=== PATIENT | female | born 1940 | race Caucasian/White ===

== ENCOUNTER 2024-08-15 08:33 | Inpatient (IN) | payer MEDICARE, SELFPAY ==
[2024-08-15] VITALS (21 sets, daily range): BP systolic 127–163; BP diastolic 65–96; PULSE 84–104; RESP 18–32; TEMP 36.7–38.4; O2SAT 91–100; BMI 30.7
--- NOTE | ~2024-08-15 | XR_ITS ---
CHEST RADIOGRAPH CLINICAL HISTORY: POST INSERTION DURAFLOW PERMACATH TUNNELED DIALYSIS CATH . COMPARISON: 09/02/2024 5:17 AM TECHNIQUE: Single portable view of the chest. FINDINGS Sternal wires and mediastinal clips are identified, the wires are midline and intact. Right internal jugular temporary hemodialysis catheter is present with its tip projecting over the pr oximal right atrium. Tunneled left internal jugular hemodialysis catheter with the arterial portion of its tip projecting over the left brachiocephalic vein, and the venous return portion projecting over the central superio r vena cava. Endotracheal tube is identified with its tip projecting approximately 5 cm above the base of the isai na. The remainder of the cardiomediastinal silhouette is otherwise unremarkable. Blunting of the bilateral costophrenic sulci suggesting small bilateral pleural effusions. The remainder of the lungs are clear. IMPRESSION: Bilateral pleural effusions. Temporary dialysis catheter is in good position. Endotracheal tube is in good radiographic position. Tunneled dialysis catheter is in position and ready for immediate use. Reviewed, dictated and finalized at location A.
--- NOTE | ~2024-08-15 | XR_ITS ---
Portable chest x-ray Comparison: 08/25/2024 Clinical History: Respiratory failure Findings: Endotracheal tube, NG tube, and right IJ line are in place. There is diffuse airspace cons olidation with probable small bilateral pleural effusions. Cardiomediastinal silhouette is stable. B ones and soft tissues are unremarkable. Impression: Diffuse airspace consolidation, suspicious for severe pulmonary edema versus pneumonia. Small pleural effusions. Support tubes, as above. Reviewed, dictated and finalized at location . Impression: Diffuse airspace consolidation, suspicious for severe pulmonary edema versus pn eumonia. Small pleural effusions. Support tubes, as above.
--- NOTE | ~2024-08-15 | XR_ITS ---
EXAMINATION: XR chest port-a-cath/central DATE: 08/19/2024 INDICATION: Dialysis line placement TECHNIQUE: frontal view of the chest was obtained. COMPARISON: Chest radiograph dated 08/19/2024 at 5:28 AM FINDINGS: New large-bore right internal jugular central venous catheter with distal tip at the superior cavoatr ial junction. Endotracheal tube tip 3.3 cm above the . Nasogastric tube extends below the left hemidiaphragm with distal tip collimated off the study. Gradient of basilar predominant hazy airspace opacities throughout both lungs consistent with likely moderate-sized right and oiejw-sh-tgpdvvxt sized left posterior layering pleural effusions. There are additional superimposed bilateral scattered linear focal patchy airspace opacities consistent with p neumonia. No pneumothorax. Heart size is normal. IMPRESSION: 1. Right internal jugular central venous catheter tip at the superior cavoatrial junction. No pneumot horax. 2. Bilateral lung disease consistent with likely small to moderate-sized right and small left posteri or layering pleural effusions and scattered patchy pneumonia. Reviewed, dictated and finalized at location A. IMPRESSION: 1. Right internal jugular central venous catheter tip at the superior cavoatria l junction. No pneumothorax. 2. Bilateral lung disease consistent with likely small to moderate-sized right and small left posterior layering pleural effusions and scattered patchy pneumo sb.
--- NOTE | ~2024-08-15 | US_ITS ---
EXAM: RENAL ULTRASOUND HISTORY: CHAYA . Patient with a history of a right renal mass under observation since 2020. No COMPARISON: None. Reference is made to a contrast-enhanced CTA of the chest dated 08/15/2024 as well a s a noncontrast enhanced examination of the chest abdomen and pelvis dated 08/18/2024. FINDINGS: RIGHT KIDNEY: 13.4 x 5 x 5 cm. Indeterminate avascular focus of decreased echogenicity within the upper pole of the right kidney natalee suring 28 x 21 x 18 mm, likely corresponding to the abnormality described in patient's history. The remainder of the right renal parenchyma is thin, and increased in echogenicity No hydronephrosis or bulky renal calculi. LEFT KIDNEY: 10.1 x 5.4 x 5.2 cm No hydronephrosis or renal calculi. The parenchyma of the left kidney is thin and increased in echogenicity. BLADDER: Decompressed with a Butt catheter, limiting its evaluation. IMPRESSION: No hydronephrosis or renal calculi. Findings suggesting medical renal disease. Findings within the upper pole of the right kidney consistent with patient's history, as detailed abo ve. Reviewed, dictated and finalized at location A. IMPRESSION: No hydronephrosis or renal calculi. Findings suggesting medical renal disease. Findings within the upper pole of the right kidney consistent with patient's hi story, as detailed above.
--- NOTE | ~2024-08-15 | XR_ITS ---
Portable chest x-ray Comparison: 08/22/2024 Clinical History: Respiratory failure Findings: Endotracheal tube, NG tube, and right IJ line are in place. There are fhuti-jw-vsnzjxiu bi lateral pleural effusions with mild pulmonary edema pattern. Cardiomediastinal silhouette is stable. Bones and soft tissues are unremarkable. Impression: Kttqk-ow-plnhhcnu bilateral pleural effusions with mild pulmonary edema pattern. Support tubes, as above. Reviewed, dictated and finalized at location . Impression: Mxgas-ez-cjwyuqxg bilateral pleural effusions with mild pulmonary edema pattern . Support tubes, as above.
--- NOTE | ~2024-08-15 | XR_ITS ---
Portable chest x-ray Comparison: 08/24/2024 Clinical History: Abnormal breathing pattern Findings: Endotracheal tube, NG tube, and right IJ line are in place. Moderate right pleural effusio n and small left pleural effusion present. There is moderate pulmonary edema pattern. Cardiomediasti nal silhouette is stable. Bones and soft tissues are unremarkable. Impression: Moderate pulmonary edema pattern with bilateral pleural effusions, right greater than left. Support tubes, as above. Reviewed, dictated and finalized at location . Impression: Moderate pulmonary edema pattern with bilateral pleural effusions, right greate r than left. Support tubes, as above.
--- NOTE | ~2024-08-15 | XR_ITS ---
EXAMINATION: XR fl Dobhoff insert/rad w img DATE: 08/23/2024 10:47 INDICATION: Postpyloric feeding TECHNIQUE: A Dobbhoff type feeding tube was advanced gastric pylorus utilizing intermittent fluoroscopy. 15 mL w ater-soluble contrast was utilized to delineate the anatomy and or date for further passage of the tu be into the duodenum. There was very slow gastric emptying and despite multiple attempts the catheter was unable to be advanced beyond the gastric outlet. Some redundancy to the catheter was left within the stomach to allow for further passive advancement into duodenum with peristalsis. The tube was fl ushed with 10 mL sterile saline and fixed to the nares with adhesive tape. A single fluoroscopic imag e was recorded. The amount of fluoroscopy time used during this procedure was 4.1 minutes. Total DAP was 56.428 Gycm^2. The patient's nasogastric tube was subsequently removed with intermittent fluorosc opy demonstrating no change in position of the placed Dobbhoff type feeding tube. There were no immed iate complications. FINDINGS/IMPRESSION: Successful fluoroscopy-guided Dobbhoff feeding tube placement with distal tip at the gastric pylorus with some redundancy in the gastric portion of the catheter to allow for further passive advancement with peristalsis which could be assessed with follow-up KUB in a few hours. Reviewed, dictated and finalized at location A.
--- NOTE | ~2024-08-15 | CT_ITS ---
CT chest abdomen pelvis wo con Ordering provider: Javan Crawford MD History: . Ileus, Pneumonia . Comparison: August 18, 2024 Technique: CT chest without IV contrast. CT abdomen and pelvis without oral and IV contrast. Radiatio n reduction technique utilized.The dose-length product was 1583.66 mGy-cm. FINDINGS: The study is limited due to lack of IV contrast. CHEST: --VISUALIZED THORACIC INLET: Normal as visualized. Endotracheal tube is noted. Nasogastric tube is also seen. Right central line with the tip overlying superior vena cava is seen. --MEDIASTINUM: Aorta/coronary arteries: Mild atheromatous disease. Heart/other: The heart is slightly enlarged. Lymph nodes: No mediastinal or hilar adenopathy. --LUNGS: No pulmonary nodules or masses. No pneumothorax. Bilateral upper and lower lobe pneumonia wi th bilateral pleural effusion more on the right side. Slight improvement compared to previous study i s noted. Hypodensity seen in the right pleural effusion which is most likely blood clot although it has a fat density.. MUSCULOSKELETAL: Soft tissues: The superficial soft tissues are normal. Bones: Age appropriate degenerative changes of the spine. ABDOMEN/PELVIS: --MUSCULOSKELETAL: Bones: Age appropriate degenerative changes of the spine. Superficial soft tissues: Postoperative changes in the anterior abdominal wall on the right side. Sub cutaneous edema seen laterally Otherwise, The superficial soft tissues are normal. --UPPER ABDOMINAL ORGANS: Liver: Hepatomegaly. Gallbladder: Status post cholecystectomy Spleen: Normal. Benign calcifications. Stomach/duodenum: Normal. Pancreas: Normal. Adrenals: Normal. Kidneys: Bilateral tiny calcifications suggestive of stones. --PELVIC ORGANS: The bladder is underfilled with suprapubic catheter. Air is seen in the urinary blad tre. No bladder stones. Calcified fibroids are seen. --BOWEL AND MESENTERY: Colon: No evidence of diverticulitis. Appendix is normal. Small Bowel: Normal. No obstruction. Peritoneum/mesentery: No free air. Trace of free fluid seen in the pelvis and in the right paracolic gutter.. No mesenteric lymphadenopathy. --RETROPERITONEUM: Mild atheromatous disease of the abdominal aorta. No retroperitoneal lymphadenop athy. IMPRESSION: CHEST: 1. Bilateral pneumonia which is slightly decreased compared to previous study. Bilateral pleural eff usion more on the right side. ABDOMEN/PELVIS: 1. No evidence of appendicitis, diverticulitis or intestinal obstruction. 2. Bilateral tiny kidney stones. 3. Hepatomegaly. 4. No evidence of ileus seen. Reviewed, dictated and finalized at location A. IMPRESSION: CHEST: 1. Bilateral pneumonia which is slightly decreased compared to previous study. Bilateral pleural effusion more on the right side. ABDOMEN/PELVIS: 1. No evidence of appendicitis, diverticulitis or intestinal obstruction. 2. Bilateral tiny kidney stones. 3. Hepatomegaly. 4. No evidence of ileus seen.
--- NOTE | ~2024-08-15 | US_ITS ---
BILATERAL LOWER EXTREMITY VENOUS ULTRASOUND Ordering provider: Iraj Alvarado MD History: . rule out progression of DVT . Comparison: None. FINDINGS: RIGHT LOWER EXTREMITY VEINS: --COMMON FEMORAL: Patent and free of thrombus. Normal compressibility, phasic flow and augmentation. --PROXIMAL SUPERFICIAL FEMORAL: Patent and free of thrombus. Normal compressibility, phasic flow and augmentation. --DISTAL SUPERFICIAL FEMORAL: Patent and free of thrombus. Normal compressibility, phasic flow and au gmentation. --POPLITEAL: Patent and free of thrombus. Normal compressibility, phasic flow and augmentation. --POSTERIOR TIBIAL: Patent and free of thrombus. Normal compressibility, phasic flow and augmentation . LEFT LOWER EXTREMITY VEINS: --COMMON FEMORAL: Patent and free of thrombus. Normal compressibility, phasic flow and augmentation. --PROXIMAL SUPERFICIAL FEMORAL: Patent and free of thrombus. Normal compressibility, phasic flow and augmentation. --DISTAL SUPERFICIAL FEMORAL: Patent and free of thrombus. Normal compressibility, phasic flow and au gmentation. --POPLITEAL: Patent and free of thrombus. Normal compressibility, phasic flow and augmentation. --POSTERIOR TIBIAL: Patent and free of thrombus. Normal compressibility, phasic flow and augmentation . IMPRESSION: Negative bilateral lower extremity venous US. No deep vein thrombosis. Reviewed, dictated and finalized at location A.
--- NOTE | ~2024-08-15 | XR_ITS ---
Portable chest x-ray Comparison: 08/17/2024 Clinical History: Respiratory failure Findings: Extensive hazy pulmonary disease is present bilaterally. Probable minimal pleural effusion s. Cardiomediastinal silhouette is stable. Bones and soft tissues are unremarkable. Impression: Moderate to advanced probable pulmonary edema pattern. Correlate for bilateral multifocal pneumonia. Probable minimal pleural effusions. Reviewed, dictated and finalized at [facility]. Impression: Moderate to advanced probable pulmonary edema pattern. Correlate for bilateral multifocal pneumonia. Probable minimal pleural effusions.
--- NOTE | ~2024-08-15 | XR_ITS ---
Portable chest x-ray Comparison: 08/19/2024 Clinical History: Respiratory failure Findings: Endotracheal tube, NG tube, and right IJ line are in place. Small bilateral pleural effusi ons are present with moderate pulmonary edema pattern. Cardiomediastinal silhouette is stable. Bones and soft tissues are unremarkable. Impression: Moderate pulmonary edema pattern with small bilateral pleural effusions. Support tubes, as above. Reviewed, dictated and finalized at location . Impression: Moderate pulmonary edema pattern with small bilateral pleural effusions. Support tubes, as above.
--- NOTE | ~2024-08-15 | XR_ITS ---
EXAMINATION: XR abdomen gastric tube insert DATE: 08/23/2024 16:51 INDICATION: Orogastric tube placement TECHNIQUE: A supine view of the abdomen and lower chest was obtained for evaluation of feeding tube placement. COMPARISON: 08/23/2024 at 10:40 AM FINDINGS: Dobbhoff type feeding tube extends into the stomach to the region of the pylorus with the tip coiled back projecting over the region of the gastric fundus. Opacities in bilateral mid and lower lung zone s consistent with small bilateral pleural effusions and associated atelectasis and/or pneumonia. Chol ecystectomy clips in right upper quadrant. IMPRESSION: 1. Dobbhoff type nasoenteric feeding tube with distal tip projecting over the gastric fundus. Reviewed, dictated and finalized at location A. IMPRESSION: 1. Dobbhoff type nasoenteric feeding tube with distal tip projecting over the g astric fundus.
--- NOTE | ~2024-08-15 | XR_ITS ---
Portable chest x-ray Comparison: 08/31/2024 Clinical History: Respiratory failure Findings: Endotracheal tube and right IJ line are in place. Small bilateral pleural effusions are pr esent. There is extensive patchy left lung airspace disease with more mild right lung airspace diseas e. Cardiomediastinal silhouette is stable. Bones and soft tissues are unremarkable. Impression: Bilateral airspace disease, left worse than right, which could reflect asymmetric pulmonary edema megan sharlene bilateral pneumonia. Correlate clinically. Small pleural effusions. Support tubes, as above. Reviewed, dictated and finalized at [facility]. Impression: Bilateral airspace disease, left worse than right, which could reflect asymmetr ic pulmonary edema versus bilateral pneumonia. Correlate clinically. Small pleural effusions. Support tubes, as above.
--- NOTE | ~2024-08-15 | XR_ITS ---
Portable chest x-ray Comparison: 08/30/2024 Clinical History: Respiratory failure Findings: Endotracheal tube, NG tube, and right IJ line are in place. Hazy airspace disease is prese nt, mildly improved in the right lung. Small pleural effusions are present. Cardiomediastinal silhou ette is stable. Bones and soft tissues are unremarkable. Impression: Moderate pulmonary edema, probably improved in the right lung. Correlate clinically for pneumonia. Small bilateral pleural effusions. Support tubes, as above. Reviewed, dictated and finalized at location . Impression: Moderate pulmonary edema, probably improved in the right lung. Correlate clinic ally for pneumonia. Small bilateral pleural effusions. Support tubes, as above.
--- NOTE | ~2024-08-15 | XR_ITS ---
Portable chest x-ray Comparison: 08/25/2024 at 12:49 AM Clinical History: Respiratory failure Findings: Endotracheal tube, NG tube, and radiography place. Moderate right pleural effusion and min imal left pleural effusion are present. Stable mild to moderate pulmonary edema pattern. Cardiomedia stinal silhouette is stable. Bones and soft tissues are unremarkable. Impression: Mild to moderate pulmonary edema pattern with bilateral pleural effusions, right greater than left. Support tubes, as above. Reviewed, dictated and finalized at location . Impression: Mild to moderate pulmonary edema pattern with bilateral pleural effusions, righ t greater than left. Support tubes, as above.
--- NOTE | ~2024-08-15 | XR_ITS ---
Portable chest x-ray Comparison: 08/23/2024 Clinical History: Respiratory failure Findings: Endotracheal tube, NG tube, and right-sided central venous line are in satisfactory positi ons. Moderate right pleural effusion and small left pleural effusion present with mild pulmonary wen a. Cardiomediastinal silhouette is stable. Bones and soft tissues are unremarkable. Impression: Mild pulmonary edema with bilateral pleural effusions, right greater than left. Support tubes, as above. Reviewed, dictated and finalized at location . Impression: Mild pulmonary edema with bilateral pleural effusions, right greater than left. Support tubes, as above.
--- NOTE | ~2024-08-15 | CT_ITS ---
EXAMINATION: CT brain wo con DATE: 09/01/2024 10:01 INDICATION: Encephalopathy TECHNIQUE: Computed tomography (CT) of the head was performed without intravenous contrast. Sagittal and coronal reconstructions were performed. The mA was adjusted according to patient size. Iterative reconstruction technique was employed. The dose-length product was 605.33 mGy-cm. COMPARISON: head CT dated 08/26/2024 FINDINGS: No acute intracranial hemorrhage, acute infarction or abnormal extra axial fluid collection. There is moderate scattered white matter hypoattenuation consistent with chronic small vessel ischemic diseas e. Symmetric prominence of the sulci and ventricles consistent with moderate ge-appropriate diffuse c erebral volume loss. No mass/mass effect. Unchanged bilateral otomastoiditis effusions. There is muco shai thickening in the left ethmoid and bilateral maxillary sinuses. The orbitsare normal. IMPRESSION: 1. No acute intracranial process. 2. Age-related changes including moderate diffuse volume loss and moderate scattered white matter att enuation consistent with chronic small vessel ischemic disease. 3. Unchanged bilateral otomastoiditis effusions. Reviewed, dictated and finalized at location A. IMPRESSION: 1. No acute intracranial process. 2. Age-related changes including moderate diffuse volume loss and moderate scat tered white matter attenuation consistent with chronic small vessel ischemic di sease. 3. Unchanged bilateral otomastoiditis effusions.
--- NOTE | ~2024-08-15 | US_ITS ---
EXAMINATION: US venous doppler [facility] DATE: 08/18/2024 13:20 INDICATION: TECHNIQUE: Grayscale ultrasound images without and with compression and Doppler ultrasound images of the bilateral lower extremity veins were obtained. COMPARISON: None. FINDINGS: Noncompressible deep venous anastomosis in the right posterior tibial veins. The visualized portions of right common femoral vein, profunda (deep) femoral vein, femoral vein, popliteal vein, peroneal ve ins, gastrocnemius vein and greater saphenous vein outflow are patent. Noncompressible deep venous thrombosis in the left posterior tibial veins. The visualized portions of left common femoral vein, profunda femoral vein, femoral vein, popliteal vein, peroneal veins, gastr ocnemius vein and greater saphenous vein outflow are patent. IMPRESSION: 1. Bilateral [id number] deep venous thrombosis in the left and right posterior tibial veins. Fin dings were discussed with the ICU nurse Carlos Herrera at 2:45 PM. Reviewed, dictated and finalized at location A. IMPRESSION: 1. Bilateral [id number] deep venous thrombosis in the left and right poste rior tibial veins. Findings were discussed with the ICU nurse Carlos Herrera at 2 :45 PM.
--- NOTE | ~2024-08-15 | XR_ITS ---
CHEST RADIOGRAPH, PA AND LATERAL CLINICAL HISTORY: SOB . COMPARISON: 12/29/2012 TECHNIQUE: PA and lateral views of the chest. FINDINGS The cardiomediastinal silhouette is unremarkable. Increased interstitial markings are identified bilaterally, findings suggesting mild pulmonary vascul ar congestion. Increased airspace opacity within the right upper lobe for which an early infiltrate is suspected. The remainder of the lungs are clear. IMPRESSION: Mild pulmonary vascular congestion with a possible early infiltrate within the right upper lobe, as d etailed above. Reviewed, dictated and finalized at location A. IMPRESSION: Mild pulmonary vascular congestion with a possible early infiltrate within the right upper lobe, as detailed above.
--- NOTE | ~2024-08-15 | XR_ITS ---
Upright portable view of the abdomen Clinical history: NG tube placement Findings: NG tube in satisfactory position. Bowel gas pattern is nonspecific. No evidence for obstruc tion or free air. No abnormal mass lesion or calcification is seen. Osseous structures are intact. Impression: NG tube in satisfactory position. Reviewed, dictated and finalized at location . Impression: NG tube in satisfactory position.
--- NOTE | ~2024-08-15 | XR_ITS ---
EXAMINATION: XR chest 1V portable DATE: 09/04/2024 05:44 INDICATION: Respiratory failure, pneumonia and volume overload TECHNIQUE: frontal view of the chest was obtained. COMPARISON: Chest radiograph dated 09/03/2024 FINDINGS: Tracheostomy tube at the thoracic inlet. Right internal jugular central venous catheter with distal t ip at the cephalad superior vena cava. Large-bore dual-lumen likely tunneled left internal jugular ce ntral venous catheter with distal tip at the midsuperior vena cava. Again seen are basilar predominant airspace opacities throughout both. Blunting at the costophrenic a ngles consistent with small bilateral pleural effusions. No pneumothorax. Heart size is normal. Moder ate thoracic spondylosis. Likely right rotator cuff arthropathy. IMPRESSION: 1. Basilar predominant airspace opacities throughout both lungs, right greater than left which could represent pulmonary edema, pneumonia, atelectasis or some combination thereof. 2. Small bilateral pleural effusions. Reviewed, dictated and finalized at location A.
--- NOTE | ~2024-08-15 | XR_ITS ---
INTRAOPERATIVE FLUOROSCOPY: CLINICAL HISTORY: 84 years old Female; INSERTION DURAFLOW PERMACATH TUNNELED DIALYSIS CATH PROCEDURE COMMENTS: Limited intraoperative fluoroscopy of the chest was performed. CUMULATIVE DOSE: 6.4 mGy FLUOROSCOPY TIME: 22.6 seconds FINDINGS/IMPRESSION: Please refer to operative note for further details. Reviewed, dictated and finalized at location A.
--- NOTE | ~2024-08-15 | CT_ITS ---
EXAMINATION: CTA chest PE protocol DATE: 08/15/2024 11:12 CDT INDICATION: Productive cough. TECHNIQUE: Computed tomographic angiography (CTA) of the chest was performed with 100 mL Omnipaque-35 0 intravenous contrast. The dose-length product was 705.31 mGy-cm. Maximum intensity projection 3D-re constructions of the aorta and other arteries were constructed by the technologist on a separate work station. COMPARISON: Reference is made to a plain film evaluation of the chest approximately 1 hour earlier wh ich demonstrated pulmonary vascular congestion and a possible early infiltrate within the right upper lobe. FINDINGS/OBSERVATIONS: PULMONARY ARTERIES: No filling defect is identified within the main or proximal pulmonary artery. The main pulmonary artery is not enlarged. THORACIC AORTA: No aneurysmal dilatation or dissection is present. The great vessels are intact LUNGS: Cross-sectional imaging demonstration of the opacification within the right upper lobe, seen o n earlier chest radiograph. Patchy alveolar infiltrates are identified bilaterally, with small bilateral pleural effusions and ad jacent atelectasis (consolidation less likely). MEDIASTINUM: No morphologically suspicious or pathologically enlarged lymph nodes are identified with in the mediastinum or bilateral axilla. BONES OF THE CHEST: No acute fracture. Age-appropriate degenerative disease. No lytic or blastic lesions. HEART: The heart is borderline enlarged, without pericardial effusion. IMPRESSION: No pulmonary embolus. No thoracic aortic dissection. Right upper lobe infiltrate with patchy bilateral airspace disease, likely inflammatory/congestive ra ther than infectious. Small bilateral pleural effusions with adjacent atelectasis. Reviewed, dictated and finalized at location A. IMPRESSION: No pulmonary embolus. No thoracic aortic dissection. Right upper lobe infiltrate with patchy bilateral airspace disease, likely infl ammatory/congestive rather than infectious. Small bilateral pleural effusions with adjacent atelectasis.
--- NOTE | ~2024-08-15 | XR_ITS ---
XR chest 1V portable 09/05/2024 05:32 Indication: Respiratory failure Procedure: AP portable chest Comparison: 09/03/2024 Findings: Stable cardiomediastinal silhouette. Central venous catheter lines in the SVC. Tracheostomy tube present. Persistent bilateral airspace disease, right greater than left. Small right pleural ef fusion. No pneumothorax. Impression: 1: Persistent bilateral airspace disease without significant change compared with 09/04/2024. Differen tial diagnosis includes edema and pneumonia. Reviewed, dictated and finalized at location A. Impression: 1: Persistent bilateral airspace disease without significant change compared wi 09/04/2024. Differential diagnosis includes edema and pneumonia.
--- NOTE | ~2024-08-15 | XR_ITS ---
Portable chest x-ray Comparison: 08/15/2024 Clinical History: Hypoxia, pneumonia Findings: Small left pleural effusion probably present. There is patchy, hazy bibasilar airspace dis ease, with basilar distribution overall. Cardiomediastinal silhouette is stable. Bones and soft tiss ues are unremarkable. Impression: Worsening patchy bilateral airspace disease, sparing the upper lobes/apices. Correlate for worsening pulmonary edema or bilateral pneumonia. Minimal pleural effusion, left side. Reviewed, dictated and finalized at [facility]. Impression: Worsening patchy bilateral airspace disease, sparing the upper lobes/apices. Co rrelate for worsening pulmonary edema or bilateral pneumonia. Minimal pleural effusion, left side.
--- NOTE | ~2024-08-15 | XR_ITS ---
EXAMINATION: XR abdomen/kub 1V DATE: 08/21/2024 08:18 INDICATION: Ileus TECHNIQUE: A supine view of the abdomen on 4 radiographs was obtained. COMPARISON: CT dated 08/18/2024 FINDINGS: Nasogastric tube tip in proximal side port in the body the stomach. Cholecystectomy clips in right up per quadrant. Right lower quadrant ventral hernia mesh repair with multiple small metallic coils proj ecting over the right hemipelvis. Suprapubic Butt catheter projects over the region of the bladder. Calcified uterine fibroid projects over the central pelvis. Nonspecific with relative paucity of maribeth l gas in the abdomen and pelvis. No dilated loops of gas-filled bowel to suggest obstruction. Opaciti es in the bilateral lower lung zones which could represent atelectasis and/or pneumonia. Possible res idual small right pleural effusion. Central venous catheter extends caudally from the superior vena c kassi with distal tip at the superior cavoatrial junction. IMPRESSION: 1. Nonspecific paucity of bowel gas with no dilated gas-filled loops of bowel to suggest obstruction. Reviewed, dictated and finalized at location A. IMPRESSION: 1. Nonspecific paucity of bowel gas with no dilated gas-filled loops of bowel t o suggest obstruction.
--- NOTE | ~2024-08-15 | XR_ITS ---
Portable chest x-ray Comparison: 08/18/2024 Clinical History: Respiratory failure Findings: Endotracheal tube and NG tube are in place. Small right pleural effusion present. There is hazy bibasilar and perihilar airspace disease, improved from prior exam. Cardiomediastinal silhouet te is stable. Bones and soft tissues are unremarkable. Impression: Probable moderate pulmonary edema pattern, improved from prior exam. Small right pleural effusion. Support tubes, as above. Reviewed, dictated and finalized at location . Impression: Probable moderate pulmonary edema pattern, improved from prior exam. Small right pleural effusion. Support tubes, as above.
--- NOTE | ~2024-08-15 | XR_ITS ---
XR chest 1V portable Ordering provider: Javan Crawford History: 84 years Female with . Resp Failure . Comparison: 10/05/2024 FINDINGS: MEDIASTINUM: The cardiac silhouette is not enlarged. Endotracheal tube, and nasogastric tube are unch anged. Right central line with the tip overlying the right atrium. LUNGS: No pneumothorax. Bilateral basal opacification with opacification the left mid zone is unchang ed. Right pleural effusion is highly suggestive. OTHER: No free air under the diaphragm. Degenerative changes of the spine. IMPRESSION: No significant change from previous examination. Reviewed, dictated and finalized at location A.
--- NOTE | ~2024-08-15 | XR_ITS ---
XR chest port-a-cath/central 09/03/2024 12:59 Indication: Central line placement Procedure: AP portable chest Comparison: Comparison to multiple prior studies sequentially, with oldest reviewed study dated 09/01. Findings: Borderline heart size. Right IJ central line tip in SVC. Left IJ dual-lumen central venous catheter tips in the SVC. No pneumothorax. Diffuse bilateral airspace disease, compatible with edema. Possible small effusion. No pneumothorax. Impression: 1: Pulmonary edema with possible small effusions. Reviewed, dictated and finalized at location B. Impression: 1: Pulmonary edema with possible small effusions.
--- NOTE | ~2024-08-15 | CT_ITS ---
EXAMINATION: CT chest abdomen pelvis wo con DATE: 08/18/2024 12:10 INDICATION: Pneumonia. Kidney tumor. Acute renal insufficiency. TECHNIQUE: Computed tomography (CT) of the chest, abdomen, and pelvis was performed without intraveno us contrast. Automated exposure control and iterative reconstruction technique were employed. The dos e-length product was 1409.28 mGy-cm. COMPARISON: 08/15/2024 FINDINGS: CHEST CT: Endotracheal tube tip 3.6 cm above the . Significant interval progression in extensive consolid ation with dependent predominance in the bilateral upper and lower lobes with patchy groundglass opac ities and small regions of consolidation in the lingula and right middle lobe consistent with gallardo lob ar pneumonia. There is associated scattered mucous plugging in the bronchi and right mainstem bronchu s. Interval increase in small bilateral posterior layering pleural effusions. Heart size is normal. A therosclerotic coronary artery calcifications. Aortic valve calcification. No pericardial effusion. T horacic aorta is normal in caliber. Mild likely reactive mediastinal lymphadenopathy. Moderate thorac ic spondylosis. ABDOMEN/PELVIS CT: Nasogastric tube with tip in proximal side port in the body the stomach. Cholecystectomy clips the ga llbladder fossa. Multiple splenic calcified lesions consistent with old granulomatous disease. Liver, pancreas and bilateral adrenal glands are normal. There are multiple small calcifications in both ki dneys have some of which appears atherosclerotic but could not exclude a few nonobstructing renal sto bibi. There is approximately 2.5 cm mass at the upper pole of the left kidney which is indiscernible f rom the surrounding renal parenchyma on the current noncontrast images and better appreciated but sti ll subtle on the prior postcontrast chest CT. Suprapubic Butt catheter within the decompressed bladd er. Calcified fibroid. Bilateral adnexa are unremarkable. Moderate amount of stool throughout the col on. There are few diverticula predominantly along the descending and sigmoid colon without adjacent c omparison to suggest active colitis. Small bowel and appendix are normal. Postoperative change of steve or ventral hernia mesh repair in the right lower quadrant. No free intraperitoneal gas or fluid. No p athologically enlarged abdominal or pelvic lymphadenopathy. Mild lumbar spondylosis. IMPRESSION: 1. Significant interval progression in an lobar pneumonia along with increasing small bilateral pleur al effusions. 2. No acute intra-abdominal/pelvic process. 3. Subtle 2.5 cm mass at the upper pole of the right kidney consistent with provided history of renal tumor. 4. Calcification is at the bilateral kidneys which appear linear and likely atherosclerotic although could not exclude nonobstructing nephrolithiasis. No hydronephrosis in either kidney. 5. Unchanged mild likely reactive mediastinal lymphadenopathy. 6. Endotracheal tube, nasogastric tube and suprapubic Butt catheter all in expected positions. Reviewed, dictated and finalized at location A. IMPRESSION: 1. Significant interval progression in an lobar pneumonia along with increasing small bilateral pleural effusions. 2. No acute intra-abdominal/pelvic process. 3. Subtle 2.5 cm mass at the upper pole of the right kidney consistent with pro vided history of renal tumor. 4. Calcification is at the bilateral kidneys which appear linear and likely ath erosclerotic although could not exclude nonobstructing nephrolithiasis. No hydr onephrosis in either kidney. 5. Unchanged mild likely reactive mediastinal lymphadenopathy. 6. Endotracheal tube, nasogastric tube and suprapubic Butt catheter all in exp ected positions.
--- NOTE | ~2024-08-15 | XR_ITS ---
Portable chest x-ray Comparison: 09/06/2024 Clinical History: Mechanical ventilation Findings: Tracheostomy cannula and bilateral central venous lines are in place. There are small bila teral pleural effusions with mild bibasilar pulmonary edema. Cardiomediastinal silhouette is stable. Bones and soft tissues are unremarkable. Impression: Small bilateral pleural effusions with mild bibasilar pulmonary edema. Support tubes, as above. Reviewed, dictated and finalized at location . Impression: Small bilateral pleural effusions with mild bibasilar pulmonary edema. Support tubes, as above.
--- NOTE | ~2024-08-15 | XR_ITS ---
CHEST RADIOGRAPH CLINICAL HISTORY: SOB . COMPARISON: 08/17/2024 approximately 12 hours earlier TECHNIQUE: Single portable view of the chest. FINDINGS The cardiomediastinal silhouette is partially obscured. Interval development of bilateral pleural effusions, right greater than left with adjacent compressiv e atelectasis. Increased interstitial markings are identified bilaterally, findings suggesting moderate pulmonary va scular congestion. IMPRESSION: Findings consistent with worsening congestive failure, as detailed above. Reviewed, dictated and finalized at location A.
--- NOTE | ~2024-08-15 | XR_ITS ---
EXAMINATION: XR chest 1V portable DATE: 08/27/2024 08:12 INDICATION: Respiratory failure TECHNIQUE: frontal view of the chest was obtained. COMPARISON: Chest radiograph dated 08/26/2024 FINDINGS: Endotracheal tube tip 3.2 cm above the . Weighted tip of a Dobbhoff type nasoenteric feeding tu be as well as a nasogastric tube in the stomach. Large-bore dual-lumen right internal jugular central venous catheter with distal tip at the superior cavoatrial junction. There is been some improvement in the diffuse bilateral perihilar and lower lung predominant intersti tial and airspace opacities which could represent pulmonary edema and/or pneumonia likely superimpose d small bilateral pleural effusions. No pneumothorax.. The cardiomediastinal silhouette is normal. IMPRESSION: 1. Interval decrease in diffuse bilateral pulmonary edema, pneumonia, small bilateral pleural effusio ns or some combination thereof. Reviewed, dictated and finalized at location B. IMPRESSION: 1. Interval decrease in diffuse bilateral pulmonary edema, pneumonia, small greg ateral pleural effusions or some combination thereof.
--- NOTE | ~2024-08-15 | XR_ITS ---
Portable chest x-ray Comparison: 08/29/2024 Clinical History: Respiratory failure Findings: Endotracheal tube, NG tube, and right IJ line are in place. Extensive pulmonary disease is again present. Probable minimal pleural effusions. Cardiomediastinal silhouette is stable. Bones an d soft tissues are unremarkable. Impression: Probable severe pulmonary edema pattern with minimal pleural effusions. Correlate for pneumonia or AR DS. Support tubes, as above. Reviewed, dictated and finalized at location . Impression: Probable severe pulmonary edema pattern with minimal pleural effusions. Correla te for pneumonia or ARDS. Support tubes, as above.
--- NOTE | ~2024-08-15 | CT_ITS ---
CT head without contrast Indication: Altered mental status Technique: Serial scans were obtained through the brain without the administration of contrast. Dose reduction technique was used on this scan by utilizing automated exposure control and iterative recon struction technique. The dose-length product (DLP) was 681.00 mGy-cm. Findings: There is no evidence of intracranial hemorrhage, mass lesion, or acute infarct. The ventri cles and subarachnoid spaces are dilated, consistent with mild to moderate atrophy. Low attenuation regions are seen within the periventricular white matter bilaterally, likely representing changes fro m chronic microvascular ischemic disease. There is no evidence of edema, mass effect or midline shif t. The visualized paranasal sinuses and mastoid air cells are clear. Impression: No intracranial hemorrhage, mass, or acute infarct. Atrophy and chronic white matter changes, as above. Reviewed, dictated and finalized at location M. Impression: No intracranial hemorrhage, mass, or acute infarct. Atrophy and chronic white matter changes, as above.
--- NOTE | ~2024-08-15 | XR_ITS ---
EXAMINATION: XR chest 1V portable DATE: 08/21/2024 05:49 INDICATION: Intubated. Respiratory failure TECHNIQUE: frontal view of the chest was obtained. COMPARISON: Chest radiograph dated 08/20/2024 FINDINGS: Endotracheal tube tip 3.1 cm above the . Right internal jugular central venous catheter with di stal tip at the superior cavoatrial junction. Nasogastric tube extends below the left hemidiaphragm with distal tip collimated off the study. Continued improvement in now more subtle patchy airspace opacities scattered throughout both lungs. L ikely decreased now very small bilateral pleural effusions. No pneumothorax. Cardiomediastinal silhou ette is normal. IMPRESSION: 1. Continued improvement in patchy bilateral airspace opacities which could represent pneumonia or pu lmonary edema. 2. Decreasing very small bilateral pleural effusions. Reviewed, dictated and finalized at location A. IMPRESSION: 1. Continued improvement in patchy bilateral airspace opacities which could rep resent pneumonia or pulmonary edema. 2. Decreasing very small bilateral pleural effusions.
--- NOTE | ~2024-08-15 | XR_ITS ---
XR chest 1V portable Ordering provider: Iraj Alvarado MD History: 84 years Female with . Acute respiratory failure, mechanical ventilation . Comparison: August 28, 2024 FINDINGS: MEDIASTINUM: The cardiac silhouette is not enlarged. Endotracheal tube is seen with the tip above the by about 3.6 cm. Nasogastric tube is seen with the tip in the stomach. Second nasogastric tub e is also noted. Right central line with the tip overlying the superior vena cava. LUNGS: No pneumothorax. Bilateral airspace disease is seen in the upper and lower lobes suggestive of pneumonia. Possible right pleural effusion is noted. OTHER: No free air under the diaphragm. Degenerative spine. IMPRESSION: Bilateral pneumonia. Multiple supporting lines in good position. No significant change from previous examination. Reviewed, dictated and finalized at location A.
--- NOTE | ~2024-08-15 | XR_ITS ---
Portable chest x-ray Comparison: 08/17/2024 Clinical History: Intubation Findings: Endotracheal tube and NG tube are in satisfactory position. There is diffuse bilateral pul monary consolidation. Probable small right pleural effusion. Cardiomediastinal silhouette is stable. Bones and soft tissues are unremarkable. Impression: Diffuse bilateral pulmonary consolidation. Correlate for pulmonary edema, pneumonia, ARDS. Probable small right pleural effusion. Support tubes, as above. Reviewed, dictated and finalized at [facility]. Impression: Diffuse bilateral pulmonary consolidation. Correlate for pulmonary edema, pneum onia, ARDS. Probable small right pleural effusion. Support tubes, as above.
--- NOTE | ~2024-08-15 | XR_ITS ---
EXAM/PROCEDURE: XR chest 1V portable - 08/28/2024 05:05 CDT HISTORY: 84 years old Female with Acute respiratory failure, mechanical ventilation TECHNIQUE: Two view(s) of the chest. COMPARISON: 08/27/2024 FINDINGS/ IMPRESSION: Mild interval worsening of bilateral interstitial and airspace opacities. The remaining visualized ch est is grossly unremarkable. Endotracheal tube is 3.1 cm above . Partially visualized nasogastric tube. Right internal jugul ar line central venous catheter with its tip in the proximal right atrium. Cardiomediastinal silhouette is unremarkable. No pneumothorax. Reviewed, dictated and finalized at location A.
--- NOTE | ~2024-08-15 | XR_ITS ---
Portable chest x-ray Comparison: 09/02/2024 Clinical History: Respiratory failure Findings: Endotracheal tube and bilateral central venous lines are in place. Small bilateral pleural effusions are present. Probable moderate pulmonary edema pattern, left worse than right. Cardiomedi astinal silhouette is stable. Bones and soft tissues are unremarkable. Impression: Moderate pulmonary edema pattern, as above, with small bilateral pleural effusions. Correlate clinica lly for pneumonia. Support tubes, as above. Reviewed, dictated and finalized at location . Impression: Moderate pulmonary edema pattern, as above, with small bilateral pleural effusi ons. Correlate clinically for pneumonia. Support tubes, as above.
--- NOTE | ~2024-08-15 | XR_ITS ---
Portable chest x-ray Comparison: 09/05/2024 Clinical History: Respiratory failure Findings: Tracheostomy cannula and bilateral central venous lines are in place. Probable small bilat eral pleural effusions with hazy bilateral airspace disease, which is improved, especially the right lung. Cardiomediastinal silhouette is stable. Bones and soft tissues are unremarkable. Impression: Small pleural effusions and probable mild to moderate pulmonary edema pattern, improved especially in the right lung. Support tubes, as above. Reviewed, dictated and finalized at location M. Impression: Small pleural effusions and probable mild to moderate pulmonary edema pattern, improved especially in the right lung. Support tubes, as above.
--- NOTE | ~2024-08-15 | XR_ITS ---
Portable chest x-ray Comparison: 09/01/2024 Clinical History: Respiratory failure Findings: Endotracheal tube and right IJ line are in place. Extensive bilateral pulmonary airspace d isease is present, mildly worsened in the right lung from prior exam. Probable small pleural effusion . Cardiomediastinal silhouette is stable. Bones and soft tissues are unremarkable. Impression: Moderate pulmonary edema pattern, left worse than right, with small pleural effusions. Support tubes, as above. Reviewed, dictated and finalized at location . Impression: Moderate pulmonary edema pattern, left worse than right, with small pleural eff usions. Support tubes, as above.
--- NOTE | 2024-08-15 08:38 | ECG_ITS ---
Test Date: 2024-08-15 08:42:51 Measurements Intervals [place] Rate: 95 P: 54 AL: 181 QRS: -73 QRSD: 109 T: 45 QT: 360 QTc: 455 Interpretive Statements SINUS RHYTHM INCOMPLETE RIGHT BUNDLE BRANCH BLOCK [90+ ms QRS DURATION, TERMINAL R IN V1/V2, 40+ ms S IN I/aVL/V4/V5/V6] LEFT ANTERIOR FASCICULAR BLOCK [QRS AXIS <= -45, QR IN I, RS IN II] ANTERIOR ST ABNORMALITY, CONSIDER ISCHEMIA ABNORMAL ECG Electronically Signed On 08-15-2024 14:19:28 CDT by Avni Montemayor M.D.
[2024-08-15 09:24] LABS: Basophils Absolute Auto 0.1 K/mm3 (0.0-0.1); Basophils Percent Auto 0.5 % (0.2-1.2); Eosinophils Percent Auto 0.4 % (0-4.4); Hematocrit 35.2 % (37.0-47.0); Hemoglobin 11.1 g/dL (12.0-15.0); Immature Granulocyte Absolute 0.04 K/mm3 (0.00-0.031); Immature Granulocyte Percent A 0.4 % (0-0.5); Immature Platelet Fraction Pct 3.9 % (0.9-11.2); Lymphocytes Absolute Auto 0.92 K/mm3 (0.9-3.2); Lymphocytes Percent Auto 9.9 % (18.3-44.2); Mean Corpuscular HGB Conc 31.5 g/dl (32-36); Mean Corpuscular Hemoglobin 26.2 pg (26-34); Mean Corpuscular Volume 83.2 fl (80-100); Mean Platelet Volume 10.6 fl (7.4-10.4); Monocytes Absolute Auto 0.6 K/mm3 (0.1-0.6); Monocytes Percent Auto 5.9 % (2.6-8.5); Neutrophils Absolute Auto 7.7 K/mm3 (1.3-6.7); Neutrophils Percent Auto 82.9 % (45.5-73.1); Platelet Count Result 135 k/mm3 (150-375); Red Blood Count 4.23 M/mm3 (4.2-5.4); Red Cell Distribution Width 17.4 % (11.5-14.5); White Blood Count 9.3 K/mm3 (4.5-10.0)
[2024-08-15 09:33] LABS: Alanine Aminotransferase 23 U/L (6-35); Albumin Level 4.3 g/dL (3.5-5.1); Alkaline Phosphatase 107 U/L (38-126); Anion Gap 16 mmol/L (4-12); Aspartate Amino Transferase 41 U/L (14-36); Bilirubin,Total 1.1 mg/dL (0.2-1.3); Blood Urea Nitrogen 27 mg/dL (7-17); Calcium 9.3 mg/dL (8.4-10.2); Carbon Dioxide 23 mmol/L (22-30); Chloride 102 mmol/L (98-107); Estimated CRCL calculation 29 ml/min; Estimated Glomerular Filt Rate 33; Glucose 260 mg/dL (65-110); Potassium 4.5 mmol/L (3.4-5.0); Sodium 141 mmol/L (137-145)
--- OUTSIDE RECORDS SUMMARY | 2024-08-15 10:18 | XMS_ITS | Clinical Summary ---
Author Organization [facility] Address [address] [place] [address] Care Team Providers Care Blacktop Spreader Name Role Phone Leobardo Osullivan MD Primary Care Provi tre Source Comments [facility],non-owned Affiliates and Associated Physician Practices is amultiple site organization consisting of ambulatory clinics and hospital sitesin [place], [place], [place] and [place]. This disclosure is being madepursuant to the Care Everywhere program and may not contain all information available regarding this patient. Last updated 18.[facility] [place] Allergies Active Allergy Reactions Criticality Noted Date Comments Adhesive Sensitivity Skin Reactions 09/04/2015 Rips skin off Latex Unknown 09/04/2015 Was told to make sure she tells people she is allergic to Latex Hmg-Coa-R Inhibitors Myalgias 09/04/2015 Sulfa Drugs Rash,Swelling Low 09/04/2015 Medications * Be aware that medications may not be up to date on this document. Alwaysverify current medications with the patient. Medication Sig Dispensed Refills Start Date End Date Status triamterene-hydroch lorothiazide (MAXZIDE-25) 37.5-25 MG tablet Take 1 Tab by mouth once daily Active furosemide (LASIX) 40 MG tablet Take 40 mg by mouth once daily Active fish oil/omega-3 fatty acids (PROMEGA;CARDI-OMEG A 3) 1000 MG capsule Take 2,000 mg by mouth daily with food Active Flaxseed, Linseed, (FLAX SEED OIL) 1000 MG Take 1,000 mg by mouth once daily Active calcium-vitamin D (CALTRATE PLUS D) 600-200 MG-UNIT tablet Take 2 Tabs by mouth once daily Active vitamin E (TOCOPHERYL) 400 UNIT tablet Take 400 Units by mouth once daily Active vitamin A 8000 UNITS capsule Take 8,000 Units by mouth once daily Active naproxen sodium (ALEVE) 220 MG tablet Take 220 mg by mouth 2 times daily as needed for Pain Active oxyCODONE-acetamino phen (PERCOCET) 5-325 MG tablet Take 1 Tab by mouth every 4 hours as needed for Pain 60 Tab 0 09/20/2015 Active Additional Information Patient not taking.Reported on 10/14/2017 docusate sodium (COLACE) 100 MG capsule Take 1 Cap by mouth once daily as needed for Constipation 30 Cap 0 09/21/2015 Active HYDROcodone-acetami nophen (NORCO) 5-325 MG tablet Take 1 Tab by mouth every 4 hours as needed for Pain 60 Tab 0 09/21/2015 Active metFORMIN ER 24hr (GLUCOPHAGE XR) 500 MG tablet TK 1 T PO BID 4 03/28/2016 Active lisinopril (PRINIVIL;ZESTRIL) 5 MG tablet TK 1 T PO D UTD 6 03/21/2016 Active One Touch Delica Lancets as directed 11 03/21/2016 Active LANTUS vial INJECT 10 UNITS HS. 2 03/21/2016 Acti ve colchicine 0.6 MG tablet 0 08/23/2017 Active REPATHA SURECLICK 140 MG/ML auto-injector 3 10/11/2017 Active TRUEPLUS INSULIN SYRINGE 31G X 5/16 0.5 ML syringe U UTD BID. 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 09/14/2015 12/13/2016 Social History Tobacco Use Types Packs/Day Years Used Date Smoking Tobacco: Never Smokeless Tobacco: Never Alcohol Use Standard Drinks/Week Comments No 0 (1 standard drink = 0.6 oz pur e alcohol) Sex and Gender Information Value Date Recorded Sex Assigned at Not on file Gender Identity Not on file Sexual Orientation Not on file Last Filed Vital Signs Vital Sign Reading Time Taken Comments Blood Pressure 148/85 09/21/2015 8:01 AM CDT Pulse 72 11/29/2016 10:47 AM CDT Temperature 36.8 C (98.3 F) 09/21/2015 8:01 AM CDT Respiratory Rate 16 09/21/2015 8:01 AM CDT Oxygen Saturation 96% 09/21/2015 8:01 AM CDT Inhaled Oxygen Concentration - - Weight 88.9 kg (196 lb) 05/01/2018 10:17 AM RAILROAD ACCOUNTANT Height 167.6 cm (5' 6 ) 05/01/2018 10:17 AM RAILROAD ACCOUNTANT Body Mass Index 31.64 05/01/2018 10:17 AM RAILROAD ACCOUNTANT Plan of Treatment Health Maintenance Due Date Last Done Comments BONE DENSITY TESTING 1942 MEDICARE AWV 12 MONTHS 1942 DTAP/TDAP/TD VACCINES (1 - Tdap) 1961 PNEUMOCOCCAL VACCINE 50+ (1 of 1 - PCV) 1992 ZOSTER VACCINE (1 of 2) 1992 Respiratory Syncytial Virus (RSV) Vaccine Pt: or over 60 yrs (1 - 1-dose 75+ series) 2017 COVID-19 VACCINE ( - 2023-2 5 season) 2024 INFLUENZA VACCINE (#1) 2024 8, 03/11/2005 DEPRESSION SCREENING 05/19/2024 HEPATITIS B VACCINE Aged Out No longe r eligible based on patient's age to complete this topic HIB VACCINE Aged Out No longer eligi ble based on patient's age to complete this topic HPV VACCINE Aged Out No longer eligi ble based on patient's age to complete this topic MENINGOCOCCAL (Group B) VACCINE SHARED DECISION-MAKING Aged Out No longer eligible based on patient's age to complete this topic MENINGOCOCCAL GROUPS A/C/Y/W VACCINE Aged Out No longer eligible b ased on patient's age to complete this topic Advance Directives * Full Code (Latest Code Status on File) Date Activated Date Inactivated Comments 09/14/2015 1:52 PM 09/21/2015 1:12 PM Care Teams Blacktop Spreader Relationship Specialty Start Date End Date Leobardo Osullivan MD PCP - General Family Medicine 05/01/18
--- OUTSIDE RECORDS SUMMARY | 2024-08-15 10:18 | XMS_ITS | Continuity of Care Document ---
Author Organization [facility] Address [address] [place] [address] Phone Care Team Providers Care Montessori Toddler Teacher Name Role Phone Wesly Sadler MD Unavailable Unavailable Allergies, Adverse Reactions, Alerts Substance Reaction Status Criticality sulfanilamide Hives Active No Information latex Hives/Skin Rash Active No Informati on Medications Medication Instructions Dosage Effective Dates (start - stop) Status Comments METFORMIN HCL (unknown strength) Not Available - Active DIOVAN (unknown strength) Not Available - Active DYRENIUM (unknown strength) Not Available - Active FOLIC ACID (unknown strength) Not Available - Active FLAXSEED OIL (unknown strength) Not Available - Active Procedures Procedure Date MU Reporting OFFICE/OUTPATIENT VISIT EST Advance Directives Directive Yes / No Effective Date File Name Resuscitation Not Answered N/A N/A Life Support Not Answered N/A N/A Intubation Not Answered N/A N/A Antibiotics Not Answered N/A N/A IV Fluid Support Not Answered N/A N/A Tube Feed Not Answered N/A N/A Other Directive N/A N/A WARNING:The information contained in this section is historical and is provided for information only and does not constitute a legal document or any assurance that the information is still accurate. Please verify the information with the casarez of the legal document before using it for clinical purposes. Encounters Encounter Description Practice Location Reason(s) For Visit Diagnoses Date Provider Providers Copied on Encounter OFFICE/OUTPAT IENT VISIT EST [facility], [address], [place], [address], [place] tel:[phone] [facility] Pain in joint involving lower legKnee joint replacementHyper tension, Unspecified [address], [place], [place], [id number] . tel: [phone] Referring Provider: Sindy Shah [address], [place], [address]. tel:[phone] [facility], [address], [place], [address], tel:[phone] [facility] Aftercare following surgery of the musculoskeletal system, [facility] [address]. [address], [place], [place], [id number] . tel:[phone] Referring Provider: Sindy Shah [address], [place], [address]. tel:[phone] Family History Family Member Type Diagnosis Age At Onset Problem (finding) Family history of Cance r Problem (finding) Myocardial infarction Problem (finding) Family history of coronary arteriosclerosis Problem (finding) Family history of Diabe margarita mellitus Payers Payer name Insurance type Covered republican ID Authoriza tion(s) No Information Social History Type Description Quantity Date Captured Comments Alcohol Use Details No Caffeine Use Details Unknown Tobacco Use Status No Information Smoking Status Never smoker Non-Smoking Tobacco Use Details : No Details Available : No Details Available Sex Female Vital Signs Date / Time: Height Weight BMI Pulse Rate Blood Pressure Temperature Respiratory Rate Body Surface Area Head Circumference Head Circ. Percentile Wt./Mayo. Percentile BMI percentile Pulse Ox Inhaled Ox 12:45 PM 66.00 in 190.00 lbs 30.6 6 kg/m eter (2) 134/97 mm[Hg] Chief Complaint And Reason For Visit No Information Reason For Referral Reason For Referral No Information Plan Of Treatment Date Type Action Status Referral Ordered: RADEX KNE 3 VIEWS RT ordered History Of Present Illness Encounter Date Complaint History Of Prese nt Illness No Information Functional Status Date Functional Assessmen t No Information Instructions Date Instruction Additional Infor mation Continue medication as prescribe d Activity as tolerated OTC anti-inflammatories (NSAIDs) Assessments Type Assessment Date No Information Patient Care Teams Name Effective Dates (start - stop) Status Members No Information
--- NOTE | 2024-08-15 11:03 | ED_ITS ---
HPI - SOB/Dyspnea General Chief Complaint: Shortness of Breath/Dyspnea Stated Complaint: cough/congestion Time Seen by Provider: 08/15/24 10:02 History of Present Illness HPI Narrative: 84-year-old female with a past medical history including CHF, hypertension, diabetes. Is currently residing at [facility]. Presents to the ER for evaluation of cough, congestion hypoxia. She was 90% on room air and was placed on 2 L nasal cannula which she does not wear at baseline. She does have a boot fixed to her right lower extremity and she tells me this is from recent tib-fib fracture that sustained while she fell previously and is why she is at a retirement to begin with. patient is present at her baseline mentation, denies any complaints such as chest pain, shortness a breath, nausea, vomiting. She does endorse that she had a cough and some congestion that started yesterday. No abdominal pain, back pain. No worsening pain in her extremities. Is not on any anticoagulation. Related Data Home Medications ?Medication ?Instructions ?Recorded ?Confirmed ?Last Taken ?Type Lactobacillus acidophilus 100 mg PO DAILY 08/15/24 08/15/24 08/14/24 History (Acidophilus capsule) acetaminophen 325 mg tablet 325 mg PO Q4H PRN pain 08/15/24 08/15/24 Unknown History amlodipine 5 mg tablet 5 mg PO DAILY 08/15/24 08/15/24 08/14/24 History arginine-vitamin C-vitamin E oral 9.2 g PO TIDWM 08/15/24 08/15/24 08/14/24 History 4.5 gram-156 mg/9.2 gram powder pkt (Arginaid) aspirin 81 mg capsule 81 mg PO DAILY 08/15/24 08/15/24 08/14/24 History bupropion HCl 300 mg 24 hr tablet, 300 mg PO DAILY 08/15/24 08/15/24 08/14/24 History extended release d-mannose 500 mg capsule (AZO 500 mg PO BID 08/15/24 08/15/24 08/14/24 History D-Mannose) fluticasone propionate 50 1 spray intranasal Q12H PRN nasal 08/15/24 08/15/24 Unknown History mcg/actuation nasal congestion spray,suspension furosemide 20 mg tablet 20 mg PO .COMPLEX 08/15/24 08/15/24 08/14/24 History guaifenesin 600 mg tablet, 600 mg PO Q12H 08/15/24 08/15/24 08/14/24 History extended release 12 hr (Mucinex) hydralazine 50 mg tablet 50 mg PO Q12H 08/15/24 08/15/24 08/14/24 History hydrocodone 5 mg-acetaminophen 325 1 tablet PO Q4-6H PRN pain (scale 08/15/24 08/15/24 Unknown History mg tablet score 4-6) insulin lispro 100 unit/mL 1 sliding scale dose subcut 08/15/24 08/15/24 08/15/24 History subcutaneous solution (Humalog USEASDIRECTD U-100 Insulin) isosorbide mononitrate 30 mg 30 mg PO DAILY 08/15/24 08/15/24 08/15/24 History tablet,extended release 24 hr krill oil 500 mg capsule 1 mg PO DAILY 08/15/24 08/15/24 08/14/24 History loratadine 10 mg tablet 10 mg PO DAILY 08/15/24 08/15/24 08/14/24 History losartan 25 mg tablet 25 mg PO DAILY 08/15/24 08/15/24 08/14/24 History meclizine 25 mg tablet 25 mg PO QID PRN dizziness 08/15/24 08/15/24 Unknown History metoprolol succinate 25 mg 25 mg PO DAILY 08/15/24 08/15/24 08/14/24 History tablet,extended release 24 hr montelukast 10 mg tablet 10 mg PO HS 08/15/24 08/15/24 08/14/24 History multivitamin,hh-yhzp-Oh-FA-min 1 tablet PO Q12H 08/15/24 08/15/24 08/14/24 History polyethylene glycol 3350 17 gram 17 g PO DAILY PRN constipation 08/15/24 08/15/24 Unknown History oral powder packet (Miralax) potassium chloride 10 mEq 10 meq PO .COMPLEX 08/15/24 08/15/24 08/13/24 History tablet,extended release rosuvastatin 5 mg tablet 5 mg PO HS 08/15/24 08/15/24 08/14/24 History senna-docusate sodium tablet 1 tablet PO DAILY PRN constipation 08/15/24 08/15/24 Unknown History Allergies Allergy/AdvReac Type Severity Reaction Status Date / Time adhesive tape Allergy Unknown Verified 08/15/24 08:51 aripiprazole (From Abilify) Allergy Unknown Verified 08/15/24 08:51 carvedilol Allergy Unknown Verified 08/15/24 08:51 latex Allergy Unknown Verified 08/15/24 08:51 Heyxjqh-WDZ-LaS Reductase Allergy Unknown Verified 08/15/24 08:51 Inhibitor Sulfa (Sulfonamide Allergy Unknown Verified 08/15/24 08:51 Antibiotics) sulfasalazine Allergy Hives Verified 08/15/24 08:51 Sulfonylureas Allergy Unknown Verified 08/15/24 08:51 SULFA Allergy Unknown Uncoded 08/15/24 08:51 Review of Systems 2 Review of Systems: As reviewed above in [facility] Past Medical History Medical History (Updated 08/15/24 @ 21:08 by Yovanny Bridges MD) Type 2 diabetes mellitus Congestive heart failure Hypertension Social History Social History (Updated 08/15/24 @ 15:31 by Alecia Bedoya PA-C) Social History: Surrogate medical decision maker: Bacilio Salas, spouse ([phone]). Code status: Full code. Smoking status: Unknown if ever smoked Alcohol intake: unknown Substance use: unknown Spiritual care concerns: No Exam 2 Narrative: GENERAL: ill-appearing, tachypneic, awake and answering all questions appropriately HEAD: [Normocephalic, atraumatic.] EYES: [PERRLA and EOMI.] ENT: Nares clear, no rhinorrhea or epistaxis. Mucous membranes moist. NECK: Supple. CHEST: coarse bilateral breath sounds in the bases, right worse than left, no appreciable wheezing. Tachypnea noted HEART: [Regular rate and rhythm]. No murmur heard. [Normal peripheral pulses.] ABDOMEN: protuberant but nontender nondistended, soft to palpation, [No rigidity or guarding] EXTREMITIES: Normal range of motion. [No edema.] right lower extremity has a boot from previous tib-fib fracture. No significant swelling compared to the left SKIN: Warm, dry, no rash. NEURO: [No focal deficits]. Alert and oriented [x3.] PSYCH: [Normal mood and affect.] Course Vital Signs Vital signs: Vital Signs Temperature 37.4 C 08/15/24 08:38 Pulse Rate 97 08/15/24 08:38 Respiratory Rate 26 H 08/15/24 08:38 Blood Pressure 150/77 H 08/15/24 08:38 Pulse Oximetry 91 08/15/24 08:38 Oxygen Delivery Room Air 08/15/24 08:38 Temperature 37.1 C 08/15/24 20:00 Pulse Rate 93 08/15/24 20:00 Respiratory Rate 18 08/15/24 20:00 Blood Pressure 139/65 08/15/24 20:00 Pulse Oximetry 95 08/15/24 20:00 Oxygen Delivery Nasal Cannula 08/15/24 08:54 Oxygen Flow Rate 2 08/15/24 18:36 MDM - SOB/Dyspnea MDM Narrative Medical decision making narrative: 84-year-old female with a history of congestive heart failure, hypertension, insulin-dependent diabetes, CKD. Presents from her longterm facility for concerns of hypoxia, cough and congestion. Recently admitted to the nursing facility for tib-fib fracture she sustained from a fall. She is noted to be hypoxic at 90% on room air requiring supplemental oxygen. She has coarse bibasilar breath sounds right worse than left. She is tachypneic but blood pressure within acceptable range, no tachycardia or fever. Suspicion presently is for pneumonia, bronchitis, COVID, influenza. Recent tib-fib fracture and hypoxia raises suspicion for potential pulmonary embolism. Given her history of CHF a cardiac workup was ordered including troponin, EKG, chest x-ray, BNP, PT, PTT, viral panel swabs. Workup reveals no leukocytosis, anemia of 11.1 with no baseline. Thrombocytopenia With no baseline. Electrolytes largely unremarkable. She has a BUN of 27 and crit 1.5 to which she has a history of CKD and this is likely on changed. Glucose is slightly elevated to 260. troponin is largely elevated 2.84, EKG with some ST lateral depressions. She was started empirically on heparin, CT angiography of the chest was ordered at this time. Repeat troponin and EKG pending. This could be a combination of factors including hypoxia causing demand ischemia rather than coronary disease but we do not have any baseline echocardiogram or cardiac studies and our system. Patient will need admission for further delineation and cardiology evaluation. spoke to the hospitalist team currently being covered by the midlevel provider Alecia. We went over patient's clinical exam, history taking, imaging results and initiation of heparin for NSTEMI and antibiotics for pneumonia. Patient remained hemodynamically stable, comfortable on her supportive oxygen and she was admitted to the IMU bed at this time. Medical Records Attestation: I reviewed the patient's medical records. Lab Data Attestation: I reviewed the patient's lab results. 08/15/24 09:16 08/15/24 09:16 Labs: Lab Results 08/15/24 08/15/24 08/15/24 Range/Units 09:15 09:16 11:28 WBC 9.3 (4.5-10.0) K/mm3 RBC 4.23 (4.2-5.4) M/mm3 Hgb 11.1 L (12.0-15.0) g/dL Hct 35.2 L (37.0-47.0) % MCV 83.2 (80-100) fl MCH 26.2 (26-34) pg MCHC 31.5 L (32-36) g/dl RDW 17.4 H (11.5-14.5) % Plt Count 135 L (150-375) k/mm3 MPV 10.6 H (7.4-10.4) fl Immature Gran % (Auto) 0.4 (0-0.5) % Neut % (Auto) 82.9 H (45.5-73.1) % Lymph % (Auto) 9.9 L (18.3-44.2) % [place] % (Auto) 5.9 (2.6-8.5) % Eos % (Auto) 0.4 (0-4.4) % Baso % (Auto) 0.5 (0.2-1.2) % Lymph # (Auto) 0.92 (0.9-3.2) K/mm3 [place] # (Auto) 0.6 (0.1-0.6) K/mm3 Eos # (Auto) 0.0 (0-0.3) K/mm3 Baso # (Auto) 0.1 (0.0-0.1) K/mm3 Abs Immat Gran (auto) 0.04 H (0.00-0.031) K/mm3 Absolute Neuts (auto) 7.7 H (1.3-6.7) K/mm3 Absolute Nucleated RBC 0.000 (0.0-0.012) K/mm3 Nucleated RBC % 0.0 (0.0-0.2) % % Immature Plt Fraction 3.9 (0.9-11.2) % PT 15.7 H (11.1-14.7) Seconds INR 1.2 APTT 32.2 (22.3-36.8) Seconds Sodium 141 (137-145) mmol/L Potassium 4.5 (3.4-5.0) mmol/L Chloride 102 (98-107) mmol/L Carbon Dioxide 23 (22-30) mmol/L Anion Gap 16 H (4-12) mmol/L BUN 27 H (7-17) mg/dL Creatinine 1.52 H (0.7-1.0) mg/dL Estim Creat Clear Calc 29 ml/min Estimated GFR 33 L (59 - ) Glucose 260 H (65-110) mg/dL Calcium 9.3 (8.4-10.2) mg/dL Total Bilirubin 1.1 (0.2-1.3) mg/dL AST 41 H (14-36) U/L ALT 23 (6-35) U/L Alkaline Phosphatase 107 (38-126) U/L Troponin I 2.840 H* (0.000-0.034) ng/mL NT-Pro-B Natriuret Pep 5770 H (19.9-100) pg/mL Total Protein 8.0 (6.3-8.2) g/dL Albumin 4.3 (3.5-5.1) g/dL Influenza A (RT-PCR) Negative (Negative) Influenza B (RT-PCR) Negative (Negative) RSV (RT-PCR) Negative (Negative) SARS-CoV-2 RNA (RT-PCR) Negative (Negative) 08/15/24 Range/Units 12:01 WBC (4.5-10.0) K/mm3 RBC (4.2-5.4) M/mm3 Hgb (12.0-15.0) g/dL Hct (37.0-47.0) % MCV (80-100) fl MCH (26-34) pg MCHC (32-36) g/dl RDW (11.5-14.5) % Plt Count (150-375) k/mm3 MPV (7.4-10.4) fl Immature Gran % (Auto) (0-0.5) % Neut % (Auto) (45.5-73.1) % Lymph % (Auto) (18.3-44.2) % Rapides % (Auto) (2.6-8.5) % Eos % (Auto) (0-4.4) % Baso % (Auto) (0.2-1.2) % Lymph # (Auto) (0.9-3.2) K/mm3 [place]ides # (Auto) (0.1-0.6) K/mm3 Eos # (Auto) (0-0.3) K/mm3 Baso # (Auto) (0.0-0.1) K/mm3 Abs Immat Gran (auto) (0.00-0.031) K/mm3 Absolute Neuts (auto) (1.3-6.7) K/mm3 Absolute Nucleated RBC (0.0-0.012) K/mm3 Nucleated RBC % (0.0-0.2) % % Immature Plt Fraction (0.9-11.2) % PT (11.1-14.7) Seconds INR APTT (22.3-36.8) Seconds Sodium (137-145) mmol/L Potassium (3.4-5.0) mmol/L Chloride (98-107) mmol/L Carbon Dioxide (22-30) mmol/L Anion Gap (4-12) mmol/L BUN (7-17) mg/dL Creatinine (0.7-1.0) mg/dL Estim Creat Clear Calc ml/min Estimated GFR (59 - ) Glucose (65-110) mg/dL Calcium (8.4-10.2) mg/dL Total Bilirubin (0.2-1.3) mg/dL AST (14-36) U/L ALT (6-35) U/L Alkaline Phosphatase (38-126) U/L Troponin I 2.960 H* (0.000-0.034) ng/mL NT-Pro-B Natriuret Pep (19.9-100) pg/mL Total Protein (6.3-8.2) g/dL Albumin (3.5-5.1) g/dL Influenza A (RT-PCR) (Negative) Influenza B (RT-PCR) (Negative) RSV (RT-PCR) (Negative) SARS-CoV-2 RNA (RT-PCR) (Negative) Imaging Data Attestation: I personally reviewed and interpreted this imaging study as follows: My impression: Impressions Chest X-Ray 08/15/24 09:37 IMPRESSION: Mild pulmonary vascular congestion with a possible early infiltrate within the right upper lobe, as detailed above. Chest CTA 08/15/24 11:11 IMPRESSION: No pulmonary embolus. No thoracic aortic dissection. Right upper lobe infiltrate with patchy bilateral airspace disease, likely inflammatory/congestive rather than infectious. Small bilateral pleural effusions with adjacent atelectasis. ECG Data EKG #1: Attestation: I personally reviewed and interpreted this ECG as follows: ECG completion date: 08/15/24 ECG completion time: 08:42 Prior ECG tracings: not available for review Interpretation: There appears to be lateral ST depressions in the 3 V4 V5 and V6. No ST segment elevations are appreciated. Incomplete right bundle-branch block, sinus rhythm baseline rhythm. QTC 455, QRS 109, AK interval 181 milliseconds. No previous EKG for comparison. Overall interpretation right bundle-branch block, ST depressions. Critical Care Time Critical Care Time Critical Care Time: Yes Total Critical Care Time: 75 Discharge Plan Discharge Clinical Impression: Acute respiratory failure with hypoxia, Non-ST elevation myocardial infarction (NSTEMI), Pneumonia Patient Disposition: Still a Patient Condition: Guarded Prognosis Time of Disposition: 13:00
--- NOTE | 2024-08-15 11:50 | ECG_ITS ---
Test Date: 2024-08-15 12:05:43 Measurements Intervals [place] Rate: 102 P: 72 AK: 188 QRS: -69 QRSD: 113 T: 47 QT: 354 QTc: 463 Interpretive Statements SINUS TACHYCARDIA INCOMPLETE RIGHT BUNDLE BRANCH BLOCK [90+ ms QRS DURATION, TERMINAL R IN V1/V2, 40+ ms S IN I/aVL/V4/V5/V6] LEFT ANTERIOR FASCICULAR BLOCK [QRS AXIS <= -45, QR IN I, RS IN II] ST DEPRESSION, CONSIDER ISCHEMIA ABNORMAL ECG Electronically Signed On 08-15-2024 14:24:21 CDT by Avni Montemayor M.D.
[2024-08-15] MEDS: AZITHROMYCIN 500 MG/NS 250 ML 500 MG/250 ML BAG 250 MG IVPB (12:08)
[2024-08-15 12:18] LABS: Influenza A QL RT-PCR Negative (Negative); Influenza B QL RT-PCR Negative (Negative); RSV RNA, RT-PCR Negative (Negative); SARS-CoV-2 RNA PCR Negative (Negative)
[2024-08-15 12:20] LABS: INR 1.2; Prothrombin Time 15.7 Seconds (11.1-14.7)
[2024-08-15 12:21] LABS: Partial Thromboplastin Time 32.2 Seconds (22.3-36.8)
[2024-08-15 12:25] LABS: NT Pro B Type Natriuretic Pept 5770 pg/mL (19.9-100)
[2024-08-15] MEDS: HEPARIN SOD/D5W 100 UNITS/ML 25,000 UNITS/250 ML BAG 9 UNITS IV CONT (12:26)
[2024-08-15] MEDS: HEPARIN SODIUM 5,000 UNITS/ML VIAL 4000 UNITS IV PUSH ×2 (12:26→19:05)
--- NOTE | 2024-08-15 12:32 | PC.NURSE ---
PT oral temp 101.2, EDP made aware and gave VORB for 1,000mg PO Acetaminophen.
[2024-08-15] MEDS: ACETAMINOPHEN 500 MG TABLET 1000 MG PO (12:37)
--- NOTE | 2024-08-15 13:20 | P.HP_ITS ---
H&P: HPI History of Present Illness Date/Time: 08/15/24 15:00 Chief Complaint: Cough and congestion. Narrative: This is an 84-year-old female with history of coronary artery disease with stents, congestive heart failure, hypertension, type 2 diabetes mellitus, possible chronic kidney disease, suspected kidney cancer which has been under surveillance for approximately 4 years, urinary incontinence now with indwelling suprapubic catheter, recurrent urinary tract infections, and frequent pneumonia who presented to the emergency department via EMS from [facility] for evaluation of cough and congestion. She is not able to provide a detailed history at this time and a majority the following is obtained via a review of her electronic medical records as well as information provided by her sons and daughters in law. She has never been seen at this facility before and gets her care through [facility]. The patient lives in her own home. She has caretakers that come to the home 24 hours a day, 5 days a week and her sons take turns staying with her on the weekends. She typically ambulates unassisted but has history of falls, typically associated with infection. She recently had a right lower extremity tibia-fibula fracture treated non operatively and she is currently at [facility] for rehabilitation. Family members see or speak with the patient daily however did not hear from her yesterday which they thought was a little unusual. Today her son's received a phone call that she was coughing and short of breath and that she was being sent to the hospital. She had COVID 2.5 to 3 weeks ago but those symptoms have resolved. At the time my evaluation the patient states she has not been feeling well since yesterday with symptoms including cough, generalized malaise, fever, and chest discomfort. She has both pleuritic chest pain in the right anterior chest and some heaviness in the central chest. She feels a little short of breath as well but not significantly so. She denies headache, neck ache, visual changes, focal weakness, palpitations, orthopnea, abdominal pain, nausea, vomiting, diarrhea, back pain, lower extremity edema, and calf pain. In the ED: Vital signs on arrival include a temperature of 99.4? (later this afternoon it climbed to 11.2? F), blood pressure 150/77, pulse 97, respiratory 26, SpO2 91% on 2 L nasal cannula placed per EMS. Labs were significant for a WBC count of 9.3, hemoglobin 11.1, BUN 27, creatinine 1.50, glucose 260, lactic acid 1.4, troponin 2.840, proBNP 5770. She tested negative for influenza, RSV, and COVID. Chest CTA was negative for pulmonary embolus and thoracic aortic dissection and showed right upper lobe infiltrate with patchy bilateral airspace disease and small bilateral pleural effusions with adjacent atelectasis. She was started on azithromycin and ceftriaxone for suspected pneumonia and was also started on a heparin drip for non ST-elevation myocardial infarction. She is being admitted to the IMU in this setting for further treatment and close monitoring as well as Cardiology consultation. Review of Systems Review of Systems: 12 systems were reviewed and are negativ e except for as per HPI. [facility] Past Medical History Medical History (Updated 08/15/24 @ 22:13 by Alecia Bedoya PA-C) Recurrent urinary tract infection Fuchs' corneal dystrophy Cancer of kidney suspected kidney cancer being monitored for the last 4 years with recent increase in growth and plans for possible radiation therapy Coronary artery disease patient of Dr. Addy Norwood at [facility] Type 2 diabetes mellitus Congestive heart failure Hypertension Surgical History Surgical History (Updated 08/15/24 @ 22:13 by Alecia Bedoya PA-C) History of appendectomy History of cholecystectomy History of ventral hernia repair with mesh History of arthroplasty of right knee History of suprapubic catheter History of coronary artery stent placement (2018) Social History Social History (Updated 08/15/24 @ 22:14 by Alecia Bedoya PA-C) Social History: Healthcare power of city attorney: Bacilio Slaas, son. Code status: Full code. Smoking status: Never smoker Alcohol intake: never Substance use: never Spiritual care concerns: No Meds Home Medications and Allergies Home Medications ?Medication ?Instructions ?Recorded ?Confirmed ?Type Lactobacillus acidophilus 100 mg PO DAILY 08/15/24 08/15/24 History (Acidophilus capsule) acetaminophen 325 mg tablet 325 mg PO Q4H PRN pain 08/15/24 08/15/24 History amlodipine 5 mg tablet 5 mg PO DAILY 08/15/24 08/15/24 History arginine-vitamin C-vitamin E oral 9.2 g PO TIDWM 08/15/24 08/15/24 History 4.5 gram-156 mg/9.2 gram powder pkt (Arginaid) aspirin 81 mg capsule 81 mg PO DAILY 08/15/24 08/15/24 History bupropion HCl 300 mg 24 hr tablet, 300 mg PO DAILY 08/15/24 08/15/24 History extended release d-mannose 500 mg capsule (AZO 500 mg PO BID 08/15/24 08/15/24 History D-Mannose) fluticasone propionate 50 1 spray intranasal Q12H PRN nasal 08/15/24 08/15/24 History mcg/actuation nasal congestion spray,suspension furosemide 20 mg tablet 20 mg PO .COMPLEX 08/15/24 08/15/24 History guaifenesin 600 mg tablet, 600 mg PO Q12H 08/15/24 08/15/24 History extended release 12 hr (Mucinex) hydralazine 50 mg tablet 50 mg PO Q12H 08/15/24 08/15/24 History hydrocodone 5 mg-acetaminophen 325 1 tablet PO Q4-6H PRN pain (scale 08/15/24 08/15/24 History mg tablet score 4-6) insulin lispro 100 unit/mL 1 sliding scale dose subcut 08/15/24 08/15/24 History subcutaneous solution (Humalog USEASDIRECTD U-100 Insulin) isosorbide mononitrate 30 mg 30 mg PO DAILY 08/15/24 08/15/24 History tablet,extended release 24 hr krill oil 500 mg capsule 1 mg PO DAILY 08/15/24 08/15/24 History loratadine 10 mg tablet 10 mg PO DAILY 08/15/24 08/15/24 History losartan 25 mg tablet 25 mg PO DAILY 08/15/24 08/15/24 History meclizine 25 mg tablet 25 mg PO QID PRN dizziness 08/15/24 08/15/24 History metoprolol succinate 25 mg 25 mg PO DAILY 08/15/24 08/15/24 History tablet,extended release 24 hr montelukast 10 mg tablet 10 mg PO HS 08/15/24 08/15/24 History multivitamin,ef-ylbm-Ws-FA-min 1 tablet PO Q12H 08/15/24 08/15/24 History polyethylene glycol 3350 17 gram 17 g PO DAILY PRN constipation 08/15/24 08/15/24 History oral powder packet (Miralax) potassium chloride 10 mEq 10 meq PO .COMPLEX 08/15/24 08/15/24 History tablet,extended release rosuvastatin 5 mg tablet 5 mg PO HS 08/15/24 08/15/24 History senna-docusate sodium tablet 1 tablet PO DAILY PRN constipation 08/15/24 08/15/24 History Allergies Allergy/AdvReac Type Severity Reaction Status Date / Time adhesive tape Allergy Unknown Verified 08/15/24 08:51 aripiprazole (From Abilify) Allergy Unknown Verified 08/15/24 08:51 carvedilol Allergy Unknown Verified 08/15/24 08:51 latex Allergy Unknown Verified 08/15/24 08:51 Xssbksa-FUV-VfJ Reductase Allergy Unknown Verified 08/15/24 08:51 Inhibitor Sulfa (Sulfonamide Allergy Unknown Verified 08/15/24 08:51 Antibiotics) sulfasalazine Allergy Hives Verified 08/15/24 08:51 Sulfonylureas Allergy Unknown Verified 08/15/24 08:51 SULFA Allergy Unknown Uncoded 08/15/24 08:51 Vital Signs Vital Signs - 24 hr 08/15/24 08:38 08/15/24 08:48 08/15/24 08:52 Temperature 99.4 F Pulse Rate 97 94 Respiratory Rate 26 H Blood Pressure 150/77 H Pulse Oximetry 91 96 Oxygen Delivery Room Air Nasal Cannula Oxygen Flow Rate 2 08/15/24 08:54 08/15/24 10:16 08/15/24 12:03 Temperature Pulse Rate 94 104 H Respiratory Rate 25 H 32 H Blood Pressure 162/96 H 163/76 H Pulse Oximetry 96 98 93 Oxygen Delivery Nasal Cannula Oxygen Flow Rate 2 08/15/24 12:31 Temperature 101.2 F H Pulse Rate 103 H Respiratory Rate 27 H Blood Pressure 154/78 H Pulse Oximetry 95 Oxygen Delivery Oxygen Flow Rate Exam Narrative: General: Moderately ill-appearing elderly female in the semi-Sam position in bed. She is sleepy but will arouse to voice, answer questions, and follow commands. Weight: 86.3 kg. BMI: 30.7. HEENT: PERRL, EOMI. Sclera anicteric. Tacky mucous membranes. Neck: Supple. No JVD. Respiratory: Respirations are nonlabored. Frequent loose sounding cough which has been nonproductive. Bronchial breath sounds heard over the right upper lobe anteriorly. Scattered rales and occasional rhonchi throughout lung marx. Cardiovascular: Regular rate and rhythm with S1-S2. Gastrointestinal: Abdomen is soft, nontender, and nondistended with positive bowel sounds. No guarding or rebound tenderness. Genitourinary: Suprapubic catheter is draining slightly cloudy yellow urine. Skin: Warm and moist. Extremities: No cyanosis, clubbing, or edema. Radial and pedal pulses intact. Neurological: Alert and oriented x3. She does not really recall much that happened earlier this morning. Cranial nerves 2-12 are grossly intact. Speech is clear. No facial asymmetry. Hand director of family service center and foot pulses are equal bilaterally. Generally weak without gross focal findings. Psychiatric: Pleasant and cooperative with appropriate mood and affect. H&P: Results Labs Labs: Short CBC 08/15/24 Range/Units 09:16 WBC 9.3 (4.5-10.0) K/mm3 Hgb 11.1 L (12.0-15.0) g/dL Hct 35.2 L (37.0-47.0) % Plt Count 135 L (150-375) k/mm3 BMP 08/15/24 09:16 Sodium 141 Potassium 4.5 Chloride 102 Carbon Dioxide 23 BUN 27 H Creatinine 1.52 H Glucose 260 H Calcium 9.3 Cardiac Enzymes 08/15/24 08/15/24 Range/Units 09:16 12:01 Troponin I 2.840 H* 2.960 H* (0.000-0.034) ng/mL Liver Function 08/15/24 Range/Units 09:16 Total Bilirubin 1.1 (0.2-1.3) mg/dL AST 41 H (14-36) U/L ALT 23 (6-35) U/L Alkaline Phosphatase 107 (38-126) U/L Albumin 4.3 (3.5-5.1) g/dL Imaging Chest X-Ray 08/15/24 09:37 IMPRESSION: 1. Mild pulmonary vascular congestion with a possible early infiltrate within the right upper lobe, as detailed above. Chest CTA 08/15/24 11:11 IMPRESSION: 1. No pulmonary embolus. 2. No thoracic aortic dissection. 3. Right upper lobe infiltrate with patchy bilateral airspace disease, likely inflammatory/congestive rather than infectious. 4. Small bilateral pleural effusions with adjacent atelectasis. Assessment and Plan Assessment and plan (1) Non-ST elevation myocardial infarction (NSTEMI): Code(s): I21.4 - Non-ST elevation (NSTEMI) myocardial infarction Status: Acute (2) Pneumonia: Code(s): J18.9 - Pneumonia, unspecified organism Status: Acute (3) Acute respiratory failure with hypoxia: Code(s): J96.01 - Acute respiratory failure with hypoxia Status: Acute (4) Congestive heart failure: Code(s): I50.9 - Heart failure, unspecified Status: Acute (5) Renal failure: Code(s): N19 - Unspecified kidney failure Status: Acute (6) Type 2 diabetes mellitus: Code(s): E11.9 - Type 2 diabetes mellitus without complications Status: Acute (7) Hypertension: Code(s): I10 - Essential (primary) hypertension Status: Acute Plan The patient presented to the emergency department for evaluation of cough and congestion for the last 24 hours as detailed in HPI. Labs, imaging, EKG, and all reports were personally reviewed. She is currently requiring 2 L nasal cannula to sustain her SpO2 in the mid 90s. Chest CTA was negative for pulmonary embolism but demonstrated a right upper lobe infiltrate with patchy bilateral airspace disease which the radiologist feels is more likely to be inflammatory/congestive rather than infectious. The patient does have a fever and productive cough and has been started on azithromycin and ceftriaxone. Mucinex and Cornet ordered to help mobilize secretions. Send sputum for culture. I will ask pulmonology to see her in consultation for further recommendations and workup if indicated. Her initial troponin was modestly elevated at 2.840 and EKG demonstrated some ST depressions concerning for ischemia in the anterior leads. This may be related to hypoxia, infection, and possible congestive heart failure however she does complain of mild mid chest heaviness which is intermittent. She is also having right-sided pleuritic pain, likely due to cons olidations. She was started on a heparin drip in the ED which will be continued, pending Cardiology input. Echocardiogram ordered as she reports a history of CHF, type unknown. Regarding her renal function, I suspect she may have a component of chronic kidney disease. Records have been requested from her primary care provider to help establish baseline. Blood pressures were reviewed and they have been stable and in fact a bit high, in the 140s to 150 systolic. Initiate sliding scale insulin, Accu-Cheks, and hypoglycemic protocol. Check hemoglobin A1c. Her home medications will be reviewed and resumed as appropriate. Findings and treatment plan were discussed with the patient. Questions were solicited and answered to satisfaction. The patient's medical management will be taken over by the hospitalist team in a.m. Quality VTE Prophylaxis VTE prophylaxis: pharmacologic ordered (currently on a heparin drip) Hospitalist MIPS Advance Care Plan I have confirmed that the patient's Advanced Care Plan is present, code status is documented, or surrogate decision maker is listed in patient medical record.: Yes Medication Reconciliation I have utilized all available resources to obtain, update and review the patients current medications (includes all prescriptions, OTC, herbals, cannabis, and nutritional supplements).: Yes
[2024-08-15 13:44] LABS: Lactic Acid Reflex 1.4 mmol/L (0.7-2.0)
[2024-08-15] MEDS: LACTATED RINGERS 1,000 ML 999 ML IV CONT (14:00)
--- NOTE | 2024-08-15 15:05 | PC.NURSE ---
This RN spoke with Billy CRUZ at pt assisted and gave update regarding pt status including that the pt is to be admitted to this hospital
--- NOTE | 2024-08-15 16:01 | ECG_ITS ---
Test Date: 2024-08-15 16:10:39 Measurements Intervals [place] Rate: 82 P: 66 MA: 185 QRS: -59 QRSD: 113 T: 61 QT: 403 QTc: 472 Interpretive Statements SINUS RHYTHM POSSIBLE RIGHT VENTRICULAR CONDUCTION DELAY [RSR (QR) IN V1/V2] LEFT ANTERIOR FASCICULAR BLOCK [QRS AXIS <= -45, QR IN I, RS IN II] NONSPECIFIC ST ABNORMALITY ABNORMAL ECG Electronically Signed On 08-16-2024 06:48:04 CDT by Avni Montemayor M.D.
[2024-08-15 17:11] LABS: Procalcitonin 1.3 ng/mL
[2024-08-15 17:17] LABS: Glucose Point of Care 213 mg/dl (65-105)
[2024-08-15 17:18] LABS: Hemoglobin A1C 7.3 % (<5.7)
[2024-08-15 18:05] LABS: MRSA (PCR) DETECTED (NOT DETECTE)
--- NOTE | 2024-08-15 18:09 | PC.NURSE ---
MRSA positive, notified Alecia CARRASCO
[2024-08-15] MEDS: INSULIN ASPART (*BKC) 100 UNITS/ML SUB-Q (18:13)
[2024-08-15] MEDS: LACTATED RINGERS 1,000 ML 125 ML IV CONT (18:14)
--- NOTE | 2024-08-15 18:14 | ADMGEN ---
This patient, Chiquis Salas, was admitted to IMU Room 206-02. Patient/family oriented to hospital policies and general routines including ID bracelet, bed and alarms, visiting hours, pain management, procedures, bathroom and other care routines, personal items, smoking policy, room service/diet, and visiting hours. Information on how to activate the Rapid Response Team has been discussed. Patient/Family are encouraged to report perceived risks to care and to ask questions if they do not understand what they are told or what they should do.
[2024-08-15 18:51] LABS: INR 1.4; Prothrombin Time 17.3 Seconds (11.1-14.7)
[2024-08-15 18:52] LABS: Partial Thromboplastin Time 40.7 Seconds (22.3-36.8)
--- NOTE | 2024-08-15 19:14 | PC.NURSE ---
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
[2024-08-15 20:34] LABS: Glucose Point of Care 188 mg/dl (65-105)
[2024-08-15] MEDS: MUPIROCIN 2% OINT 22 GM TUBE 1 APPLIC EACH NARE (21:50)
[2024-08-15] MEDS: guaiFENesin 12 HR 600 MG TABCR 1200 MG PO (21:50)
[2024-08-15] MEDS: VANCOMYCIN 1,250 MG/NS 250 ML 1,250 MG/250 ML BAG 166.67 MG IVPB (23:00)
[2024-08-15] MEDS: POTASSIUM CHLORIDE 10 MEQ ER TABLET PO (23:20)
[2024-08-15] MEDS: hydrALAZINE HCL 50 MG TABLET PO (23:20)
[2024-08-16] VITALS (29 sets, daily range): BP systolic 104–131; BP diastolic 45–74; PULSE 78–109; RESP 18–26; TEMP 36.4–38.1; O2SAT 90–99; BMI 31.4
--- NOTE | 2024-08-16 | ECHO_ITS ---
Patient Info Name: Chiquis Salas Age: 84 years : 1940 Gender: Female Ht: 66 in Wt: 194 lbs BSA: 2.05 m2 HR: 80 bpm BP: 130 / 68 mmHg Heart Rhythm: Sinus Rhythm Technical Quality: Fair Exam Date: 08/16/2024 10:42 AM Exam Location: Echo Lab Patient Status: Inpatient Admit Date: 08/15/2024 Staff Ordering Physician: Yovanny Bridges MD [employer]inist: Franca Velez RDCS Attending Provider: Eduard Forrester MD Referring Physician: Yuliana GREGG; Exam Type: CA echo doppler color flow Study Info Indications - NSTEMI Complete two-dimensional, color flow and Doppler transthoracic echocardiogram is performed. Summary 1. Complete two-dimensional, color flow and Doppler transthoracic echocardiogram is performed. 2. There is normal biventricular size and systolic function. 3. There are no significant valvular abnormalities in this study. Left Ventricle The left ventricle is normal in size and systolic function. The left ventricular ejection fraction is visually estimated to be 60-65%. Right Ventricle The right ventricle is normal in size and systolic function. Left Atria The left atrium is normal size. Right Atria The right atrium is normal size. Atrial Septum The atrial septum is not visualized. Aortic Valve The aortic valve is not well visualized however Doppler gradients across the valve does not suggest any hemodynamically significant stenosis. Pulmonic Valve The pulmonic valve is not well visualized. There is no color Doppler evidence of pulmonic valve regurgitation. Mitral Valve The mitral valve is normal. There is trace mitral regurgitation. Tricuspid Valve The tricuspid valve is normal. There is trace tricuspid regurgitation. Pericardium/Pleural Pericardium is normal in appearance with no evidence for significant pericardial effusion. Inferior Vena Cava Normal inferior vena cava with <50% collapse upon inspiration consistent with elevated right atrial pressure, 8 mmHg. Aorta The aortic root is not well visualized. Left Ventricular Outflow Tract Name Value Normal LVOT 2D LVOT Diameter 2.0 cm LVOT Doppler LVOT Peak Gradient 4 mmHg LVOT Mean Gradient 2 mmHg LVOT VTI 18 cm LVOT VTI/AV VTI Ratio 0.6 LVOT Stroke Volume 57 ml LVOT CO 5.0 l/min LVOT CI 2.4 l/min/m2 Pulmonic Valve Name Value Normal RVOT Doppler RVOT Peak Gradient 3 mmHg PV Doppler PV Peak Gradient 4 mmHg Mitral Valve Name Value Normal MV Doppler MV Decel Conway 535 cm/s2 MV PHT 53 ms MV Area (PHT) 4.2 cm2 4.0-5.0 MV Diastolic Function MV E Peak Velocity 97 cm/s MV A Peak Velocity 93 cm/s MV E/A 1.0 MV Decel Time 181 ms MV Annular TDI MV E/e' (Septal) 19.8 <=8.0 MV E/e' (Lateral) 18.7 <=8.0 MV E/e' (Average) 19.3 Tricuspid Valve Name Value Normal TV Regurgitation Doppler TR Peak Velocity 238 cm/s TR Peak Gradient 23 mmHg Estimated PAP/RSVP RA Pressure 8 mmHg <=5 PA Systolic Pressure 31 mmHg <36 RV Systolic Pressure 31 mmHg <36 Aorta Name Value Normal Ascending Aorta Ao Root Diameter (MM) 3.1 cm Ao Root Diam Index (MM) 1.5 cm/m2 Aortic Valve Name Value Normal AV Doppler AV Peak Velocity 179 cm/s AV Peak Gradient 13 mmHg AV Mean Gradient 7 mmHg AV VTI 32 cm AV Area (Cont Eq VTI) 1.8 cm2 >=3.0 AV Area (Cont Eq Joseph) 1.7 cm2 AV Regurgitation 2D LVOT Area 3.2 cm2 Ventricles Name Value Normal LV Dimensions 2D/MM IVS Diastolic Thickness (2D) 1.0 cm 0.6-1.0 LVID Diastole (2D) 5.8 cm 3.8-5.2 LVIW Diastolic Thickness (2D) 1.0 cm 0.6-0.9 LVID Systole (2D) 3.9 cm 2.2-3.5 LVOT Diameter 2.0 cm LV Mass (2D Cubed) 229.98 g 67.00-162.00 LV Mass Index (2D Cubed) 112 g/m2 43-95 Relative Wall Thickness (2D) 0.35 LV Fractional Shortening/Ejection Fraction 2D/MM LV Fractional Shortening (2D) 33 % 27-45 LV EF (2D Teicholz) 61 % 54-74 LV Diastolic Volume (4C MOD) 72 ml LV EF (4C MOD) 62 % LV Diastolic Volume (2C MOD) 71 ml LV EF (2C MOD) 58 % LV Diastolic Volume (BP MOD) 74 ml 46-106 LV Diastolic Volume Index (BP MOD) 36 ml/m2 29-61 LV Systolic Volume (BP MOD) 30 ml 14-42 LV Systolic Volume Index (BP MOD) 15 ml/m2 8-24 LV EF (BP MOD) 59 % 54-74 LV Diastolic Length (4C) 8.2 cm LV Systolic Length (4C) 7.3 cm LV Stroke Volume (4C MOD) 45 ml Atria Name Value Normal LA Dimensions LA Dimension (MM) 4.0 cm 2.7-3.8 LA Volume (4C A-L) 48 ml LA Volume (BP A-L) 47 ml RA Dimensions RA Area (4C) 17.0 cm2 <=18.0 Report Signatures
[2024-08-16] MEDS: VANCOMYCIN 1,000 MG/NS 250 ML 1,000 MG/250 ML BAG 250 MG IVPB (00:43)
[2024-08-16] MEDS: HEPARIN SODIUM 5,000 UNITS/ML VIAL 4000 UNITS IV PUSH ×2 (01:36→15:17)
[2024-08-16] MEDS: IPRATROPIUM 0.5 MG/ALBUTEROL SULFATE 2.5 MG AMPUL.NEB 3 ML INHALATION ×4 (02:17→20:28)
[2024-08-16 04:46] LABS: Basophils Percent Auto 0.4 % (0.2-1.2); Eosinophils Absolute Auto 0.1 K/mm3 (0-0.3); Eosinophils Percent Auto 1.3 % (0-4.4); Hematocrit 29.8 % (37.0-47.0); Hemoglobin 9.1 g/dL (12.0-15.0); Immature Granulocyte Absolute 0.03 K/mm3 (0.00-0.031); Immature Granulocyte Percent A 0.4 % (0-0.5); Immature Platelet Fraction Pct 6.4 % (0.9-11.2); Lymphocytes Percent Auto 18.8 % (18.3-44.2); Mean Corpuscular HGB Conc 30.5 g/dl (32-36); Mean Corpuscular Hemoglobin 25.9 pg (26-34); Mean Corpuscular Volume 84.9 fl (80-100); Mean Platelet Volume 11.4 fl (7.4-10.4); Monocytes Absolute Auto 0.6 K/mm3 (0.1-0.6); Monocytes Percent Auto 7.8 % (2.6-8.5); Neutrophils Absolute Auto 5.7 K/mm3 (1.3-6.7); Neutrophils Percent Auto 71.3 % (45.5-73.1); Platelet Count Result 114 k/mm3 (150-375); Red Blood Count 3.51 M/mm3 (4.2-5.4); Red Cell Distribution Width 17.2 % (11.5-14.5)
[2024-08-16 05:17] LABS: Alanine Aminotransferase 18 U/L (6-35); Albumin Level 3.3 g/dL (3.5-5.1); Alkaline Phosphatase 97 U/L (38-126); Anion Gap 8 mmol/L (4-12); Aspartate Amino Transferase 37 U/L (14-36); Bilirubin,Total 0.9 mg/dL (0.2-1.3); Blood Urea Nitrogen 25 mg/dL (7-17); Calcium 8.4 mg/dL (8.4-10.2); Carbon Dioxide 23 mmol/L (22-30); Chloride 107 mmol/L (98-107); Creatine Kinase 264 U/L (30-135); Estimated CRCL calculation 29 ml/min; Estimated Glomerular Filt Rate 34; Glucose 200 mg/dL (65-110); Magnesium 1.8 mg/dL (1.6-2.3); Potassium 4.2 mmol/L (3.4-5.0); Sodium 138 mmol/L (137-145)
[2024-08-16 07:41] LABS: Glucose Point of Care 186 mg/dl (65-105)
--- NOTE | 2024-08-16 08:17 | ECG_ITS ---
Test Date: 2024-08-16 08:40:38 Measurements Intervals [place] Rate: 92 P: 66 IL: 151 QRS: -67 QRSD: 124 T: 38 QT: 377 QTc: 468 Interpretive Statements SINUS RHYTHM RIGHT BUNDLE BRANCH BLOCK [120+ ms QRS DURATION, UPRIGHT V1, 40+ ms S IN I/aVL/V4/V5/V6] LEFT ANTERIOR FASCICULAR BLOCK [QRS AXIS <= -45, QR IN I, RS IN II] INFERIOR MYOCARDIAL INFARCTION , PROBABLY OLD [40+ ms Q WAVE AND/OR ST/T ABNORMALITY IN II/aVF] ANTEROLATERAL ST ABNORMALITY, CONSIDER ISCHEMIA ABNORMAL ECG Electronically Signed On 08-16-2024 14:01:38 CDT by Avni Montemayor M.D.
--- NOTE | 2024-08-16 08:23 | PC.NURSE ---
Notified Dr Loera of patients chest pain. Ordered stat ekg and nitro sublingual. Ok to keep patients current diet.
[2024-08-16] MEDS: NITROGLYCERIN SL 0.4 MG TABLET SUBLINGUAL (08:48)
[2024-08-16] MEDS: LORATADINE 10 MG TABLET PO (08:49)
[2024-08-16] MEDS: ACIDOPHILUS/BULGARICUS CHEWABLE TABLET 1 TABLET PO (08:49)
[2024-08-16] MEDS: FUROSEMIDE 20 MG TABLET PO (08:49)
[2024-08-16] MEDS: METOPROLOL SUCCINATE EXT REL 25 MG TABCR PO (08:49)
[2024-08-16] MEDS: guaiFENesin 12 HR 600 MG TABCR PO ×2 (08:50→21:13)
[2024-08-16] MEDS: ASPIRIN 81 MG ENTERIC TABLET PO (08:50)
[2024-08-16] MEDS: buPROPion HCL XL (24 HR) 150 MG TABCR 300 MG PO (08:50)
[2024-08-16] MEDS: ISOSORBIDE MONONITRATE 30 MG TAB.ER.24H PO (08:50)
[2024-08-16] MEDS: MULTIVIT/MIN/PREN/FOL AC/IRON TABLET 1 TAB PO (08:50)
[2024-08-16] MEDS: MUPIROCIN 2% OINT 22 GM TUBE 1 APPLIC EACH NARE ×2 (08:51→21:13)
[2024-08-16] MEDS: ACETAMINOPHEN 325 MG TABLET 650 MG PO (09:03)
[2024-08-16] MEDS: HEPARIN SOD/D5W 100 UNITS/ML 25,000 UNITS/250 ML BAG 15 UNITS IV CONT (09:04)
[2024-08-16] MEDS: amLODIPine BESYLATE 5 MG TABLET PO (09:24)
[2024-08-16] MEDS: LOSARTAN POTASSIUM 25 MG TABLET PO (09:24)
[2024-08-16] MEDS: hydrALAZINE HCL 50 MG TABLET PO ×2 (09:24→21:13)
--- NOTE | 2024-08-16 10:32 | PM.IMPN ---
Progress Note: A&P Assessment and Plan (1) Hypertension: Code(s): I10 - Essential (primary) hypertension Status: Acute (2) Congestive heart failure: Code(s): I50.9 - Heart failure, unspecified Status: Acute (3) Non-ST elevation myocardial infarction (NSTEMI): Code(s): I21.4 - Non-ST elevation (NSTEMI) myocardial infarction Status: Acute (4) Coronary artery disease: Code(s): I25.10 - Atherosclerotic heart disease of [place] coronary artery without angina pectoris Status: Acute (5) Type 2 diabetes mellitus: Code(s): E11.9 - Type 2 diabetes mellitus without complications Status: Acute Plan PNA Vital signs improved and stable On Ceftriaxone ,azithromycin and Vancomycin monitor cultures MRSA negative encourage oral intake Non ST elevation PA -Continue heparin drip and give sublingual nitro if needed -Continue aspirin 81 mg and rosuvastatin 5 mg -continue metoprolol succinate 25 mg p.o. q.d., losartan 25 mg p.o. q.d., hydralazine p.o. b.i.d.. -continue Imdur 30 mg p.o. q.d. -Lasix 20 mg p.o. Q 48 hours -Give sublingual nitro if needed -Echocardiogram pending -Reviewed EKG and CXR -history of 2-3 stents in 2018 with -recommends to discuss with primary glass unloading equipment tender if patient needs cardiac catheterization HTN As above Suprapubic catheter Due to right renal mass Follows up with Urology Subjective Date/time seen: 08/16/24 10:32 Interval history: 84-year-old female with history of coronary artery disease with stents, congestive heart failure, hypertension, type 2 diabetes mellitus, possible chronic kidney disease, suspected kidney cancer which has been under surveillance for approximately 4 years, urinary incontinence now with indwelling suprapubic catheter, recurrent urinary tract infections, and frequent pneumonia who presented to the emergency department via EMS from [facility] for evaluation of cough and congestion.Currently she been treated for PNA and NSTEMI. 08/16: During the evaluation patient's son was present. He reported patient has 2 stents that was placed in 2018 by . He also reported they were unable to put a stent on the 3rd vessel and advised medical management. Patient also sees the urologist for suprapubic cath management. Patient has a suprapubic catheter due to possible right kidney mass. Patient also does see ID due to recurrent UTI. He requested to talk to his primary glass unloading equipment tender before making any decisions in regards to cardiac catheterization Objective Data Vital Signs Vital Signs: Vital Signs - 24 hr 08/15/24 12:03 08/15/24 12:31 08/15/24 13:59 Temperature 101.2 F H 99 F Pulse Rate 104 H 103 H 92 Respiratory Rate 32 H 27 H 26 H Blood Pressure 163/76 H 154/78 H 149/68 H Pulse Oximetry 93 95 95 Oxygen Delivery Oxygen Flow Rate Fraction of Inspired Oxygen 08/15/24 14:38 08/15/24 15:57 08/15/24 16:31 Temperature 98.5 F Pulse Rate 84 86 84 Respiratory Rate 27 H 27 H 28 H Blood Pressure 141/67 H 127/90 143/77 H Pulse Oximetry 95 97 96 Oxygen Delivery Oxygen Flow Rate Fraction of Inspired Oxygen 08/15/24 16:53 08/15/24 18:00 08/15/24 18:36 Temperature 98.8 F Pulse Rate 86 96 Respiratory Rate 18 Blood Pressure 147/78 H Pulse Oximetry 100 98 Oxygen Delivery Oxygen Flow Rate 2 Fraction of Inspired Oxygen 08/15/24 19:00 08/15/24 20:00 08/15/24 20:00 Temperature 98.7 F Pulse Rate 93 90 Respiratory Rate 18 Blood Pressure 139/65 Pulse Oximetry 92 95 Oxygen Delivery Venturi Mask Oxygen Flow Rate 3 Fraction of Inspired Oxygen 08/15/24 21:35 08/15/24 22:00 08/15/24 22:19 Temperature Pulse Rate 93 87 Respiratory Rate 18 Blood Pressure Pulse Oximetry 95 92 Oxygen Delivery Venturi Mask Venturi Mask Oxygen Flow Rate 3 3 Fraction of Inspired Oxygen 26 08/15/24 23:30 08/15/24 23:45 08/16/24 00:00 Temperature 98.0 F Pulse Rate 89 89 87 Respiratory Rate 18 18 Blood Pressure 137/68 Pulse Oximetry 93 93 Oxygen Delivery Venturi Mask Oxygen Flow Rate 3 Fraction of Inspired Oxygen 08/16/24 02:00 08/16/24 04:00 08/16/24 04:00 Temperature 97.6 F Pulse Rate 93 90 89 Respiratory Rate 18 Blood Pressure 130/68 Pulse Oximetry 92 Oxygen Delivery Oxygen Flow Rate Fraction of Inspired Oxygen 08/16/24 05:25 08/16/24 06:00 08/16/24 07:29 Temperature Pulse Rate 80 86 92 Respiratory Rate 18 20 Blood Pressure Pulse Oximetry 92 93 Oxygen Delivery Venturi Mask Venturi Mask Oxygen Flow Rate 3 4 Fraction of Inspired Oxygen 26 26 08/16/24 07:30 08/16/24 07:45 08/16/24 08:00 Temperature 100.6 F H Pulse Rate 92 92 97 Respiratory Rate 20 20 26 H Blood Pressure 131/69 Pulse Oximetry 92 Oxygen Delivery Oxygen Flow Rate Fraction of Inspired Oxygen 08/16/24 08:00 08/16/24 08:49 08/16/24 08:56 Temperature Pulse Rate 94 Respiratory Rate Blood Pressure 104/57 L Pulse Oximetry 94 Oxygen Delivery Nasal Cannula Oxygen Flow Rate 3 Fraction of Inspired Oxygen 08/16/24 09:10 08/16/24 09:25 Temperature Pulse Rate Respiratory Rate Blood Pressure 109/65 113/74 Pulse Oximetry Oxygen Delivery Oxygen Flow Rate Fraction of Inspired Oxygen Intake/Output Intake/Output: Intake & Output 08/13/24 08/14/24 08/15/24 08/16/24 23:59 23:59 23:59 23:59 Intake Total 1810 1240.0 Output Total 700 800 Balance 1110 440.0 Meds/Results Medications: Active Medications Generic Name Dose Route Start Last Admin Trade Name Freq PRN Reason Stop Dose Admin Acetaminophen 650 mg 08/15/24 15:44 08/16/24 09:03 Acetaminophen 325 Mg Tablet PO 650 mg Q6H PRN Administration Mild Pain (1-3) or Fever Hydrocodone Bitart/Acetaminophen 1 tab 08/15/24 22:20 Hydrocodone/Acetaminophen (*Crx) 5-325 Mg Tablet PO Q4-6H PRN pain (scale score 4-6) Albuterol 2 puff 08/15/24 15:44 Albuterol Sulfate (*Sp) Aerosol 1 Puff INHALATION QIDRT PRN Shortness Of Breath Albuterol/Ipratropium 3 ml 08/16/24 02:00 08/16/24 07:26 Ipratropium 0.5 Mg/Albuterol Sulfate 2.5 Mg Ampul.Neb 3 Ml INHALATION 3 ml Q6HRT TEMI Administration Amlodipine Besylate 5 mg 08/16/24 09:00 08/16/24 09:24 Amlodipine Besylate 5 Mg Tablet PO 5 mg DAILY TEMI Administration Aspirin 81 mg 08/16/24 09:00 08/16/24 08:50 Aspirin 81 Mg Enteric Tablet PO 81 mg QAM TEMI Administration Bupropion HCl 300 mg 08/16/24 09:00 08/16/24 08:50 Bupropion Hcl Xl (24 Hr) 150 Mg Tabcr PO 300 mg DAILY TEMI Administration Dextrose 12.5 gm 08/15/24 15:49 Dextrose 50% 25 Gm/50 Ml Syringe IV PUSH PRN PRN Hypoglycemia Protocol Fluticasone Propionate 1 spray 08/15/24 22:20 Fluticasone Propionate 0.05% Na Spr 16 Gm Btl (*Bkc) NASAL Q12H PRN nasal congestion Furosemide 20 mg 08/16/24 09:00 08/16/24 08:49 Furosemide 20 Mg Tablet PO 20 mg Q48H TEMI Administration Glucagon 1 mg 08/15/24 15:49 Glucagon For Inj 1 Mg Vial IM PRN PRN Hypoglycemia Protocol Glucose 15 gm 08/15/24 15:49 Glucose Oral Gel 15 Gm Of Glucse In 37.5 Gm Tube PO PRN PRN Hypoglycemia Protocol Guaifenesin 600 mg 08/15/24 22:20 08/16/24 08:50 Guaifenesin 12 Hr 600 Mg Tabcr PO 600 mg Q12HR TEMI Administration Heparin Sodium (Porcine) 4,000 units 08/15/24 11:09 08/16/24 01:36 Heparin Sodium 5,000 Units/Ml Vial IV PUSH 4,000 units PRN PRN Administration aPTT less than 55 seconds Heparin Sodium (Porcine) 3,000 units 08/15/24 11:09 Heparin Sodium 5,000 Units/Ml Vial IV PUSH PRN PRN aPTT 55 - 70 seconds Hydralazine HCl 50 mg 08/15/24 22:20 08/16/24 09:24 Hydralazine Hcl 50 Mg Tablet PO 50 mg Q12HR TEMI Administration Heparin Sodium/Dextrose 25,000 units in 250 mls @ 15 mls/hr 08/15/24 11:10 08/16/24 09:04 Heparin Sodium/D5w 100 Units/Ml IV CONT 1,500 units/hr .[id number] TEMI 15 mls/hr Administration Protocol 1,500 UNITS/HR Dextrose 1,000 mls @ 100 mls/hr 08/15/24 15:49 Dextrose 5% 1,000 Ml IVPB PRN PRN Hypoglycemia Protocol Ceftriaxone Sodium 1 gm in 50 mls @ 100 mls/hr 08/16/24 12:00 Rocephin 1 Gm/Ns 50 Ml IVPB Q24H TEMI Azithromycin 500 mg in 250 mls @ 250 mls/hr 08/16/24 12:00 Zithromax IVPB Q24H TEMI Vancomycin HCl 1,500 mg in 500 mls @ 250 mls/hr 08/17/24 11:00 Vancomycin 1,500 Mg/Ns 500 Ml IVPB Q36H [facility] Insulin Aspart 1 - 3 units 08/15/24 21:00 08/15/24 21:50 Insulin Aspart (*Bkc) 100 Units/Ml SUB-Q Not Given HS [facility] Protocol Insulin Aspart 3 - 6 units 08/15/24 17:00 08/16/24 08:51 Insulin Aspart (*Bkc) 100 Units/Ml SUB-Q Not Given TIDWM [facility] Protocol Isosorbide Mononitrate 30 mg 08/16/24 09:00 08/16/24 08:50 Isosorbide Mononitrate 30 Mg Tab.Er.24h PO 30 mg DAILY [facility] Administration Lactobacillus Acidophilus 1 tablet 08/16/24 09:00 08/16/24 08:49 Acidophilus/Bulgaricus Chewable Tablet PO 1 tablet DAILY TEMI Administration Loratadine 10 mg 08/16/24 09:00 08/16/24 08:49 Loratadine 10 Mg Tablet PO 10 mg DAILY TEMI Administration Losartan Potassium 25 mg 08/16/24 09:00 08/16/24 09:24 Losartan Potassium 25 Mg Tablet PO 25 mg DAILY [facility] Administration Metoprolol Succinate 25 mg 08/16/24 09:00 08/16/24 08:49 Metoprolol Succinate Ext Rel 25 Mg Tabcr PO 25 mg DAILY TEMI Administration Montelukast Sodium 10 mg 08/16/24 21:00 Montelukast Sodium 10 Mg Tablet PO HS [facility] Mupirocin 1 applic 08/15/24 21:00 08/16/24 08:51 Mupirocin 2% Oint 22 Gm Tube EACH NARE 1 applic Q12HR TEMI Administration Nitroglycerin 0.4 mg 08/16/24 08:22 08/16/24 08:48 Nitroglycerin Sl 0.4 Mg Tablet SUBLINGUAL 0.4 mg Q5MIN PRN Administration Chest Pain Nonformulary Drug (D 1 each 08/15/24 22:38 -Mannose [Azo D- XX 08/16/24 22:37 Mannose] 500 Mg PRN PRN Capsule) PROTOCOL Perflutren Lipid Microsphere 0 ml 08/15/24 11:11 Perflutren Lipid Microspheres 1.5 Ml Vial Diluted To 10 Ml Total Volume IV PUSH 08/18/24 11:11 ONCE PRN adequate visualization Protocol Polyethylene Glycol 17 gm 08/15/24 22:20 Polyethylene Glycol 3350 17 Gm Powd.Pack PO DAILY PRN constipation Potassium Chloride 10 meq 08/15/24 22:20 08/15/24 23:20 Potassium Chloride 10 Meq Er Tablet PO 10 meq Q48H TEMI Administration Vit/Calcium/Iron/Folic Ac 1 tab 08/16/24 09:00 08/16/24 08:50 Multivit/Min/Pren/Fol Ac/Iron Tablet PO 1 tab QAM TEMI Administration Rosuvastatin Calcium 5 mg 08/16/24 21:00 Rosuvastatin 5 Mg Tablet PO HS TEMI Senna/Docusate Sodium 1 tab 08/15/24 22:37 Senna/Docusate Sodium Tablet PO DAILY PRN constipation Radiology Results: ITS Impressions Chest X-Ray 08/15/24 09:37 IMPRESSION: Mild pulmonary vascular congestion with a possible early infiltrate within the right upper lobe, as detailed above. Chest CTA 08/15/24 11:11 IMPRESSION: No pulmonary embolus. No thoracic aortic dissection. Right upper lobe infiltrate with patchy bilateral airspace disease, likely inflammatory/congestive rather than infectious. Small bilateral pleural effusions with adjacent atelectasis. Labs Labs: Laboratory Results - last 24 hr 08/15/24 08/15/24 08/15/24 09:15 11:28 12:01 WBC RBC Hgb Hct MCV MCH MCHC RDW Plt Count MPV Immature Gran % (Auto) Neut % (Auto) Lymph % (Auto) [place] % (Auto) Eos % (Auto) Baso % (Auto) Lymph # (Auto) [place] # (Auto) Eos # (Auto) Baso # (Auto) Abs Immat Gran (auto) Absolute Neuts (auto) Absolute Nucleated RBC Nucleated RBC % % Immature Plt Fraction PT 15.7 H INR 1.2 APTT 32.2 Sodium Potassium Chloride Carbon Dioxide Anion Gap BUN Creatinine Estim Creat Clear Calc Estimated GFR Glucose POC Capillary Glucose Hemoglobin A1c Lactic Acid Calcium Magnesium Total Bilirubin AST ALT Alkaline Phosphatase Total Creatine Kinase Troponin I 2.960 H* C-Reactive Protein NT-Pro-B Natriuret Pep 5770 H Total Protein Albumin Procalcitonin TSH (Reflex) Nasal MRSA (PCR) Influenza A (RT-PCR) Negative Influenza B (RT-PCR) Negative RSV (RT-PCR) Negative SARS-CoV-2 RNA (RT-PCR) Negative 08/15/24 08/15/24 08/15/24 13:26 16:21 17:14 WBC RBC Hgb Hct MCV MCH MCHC RDW Plt Count MPV Immature Gran % (Auto) Neut % (Auto) Lymph % (Auto) [place] % (Auto) Eos % (Auto) Baso % (Auto) Lymph # (Auto) [place] # (Auto) Eos # (Auto) Baso # (Auto) Abs Immat Gran (auto) Absolute Neuts (auto) Absolute Nucleated RBC Nucleated RBC % % Immature Plt Fraction PT INR APTT Sodium Potassium Chloride Carbon Dioxide Anion Gap BUN Creatinine Estim Creat Clear Calc Estimated GFR Glucose POC Capillary Glucose 213 H Hemoglobin A1c 7.3 H Lactic Acid 1.4 Calcium Magnesium Total Bilirubin AST ALT Alkaline Phosphatase Total Creatine Kinase Troponin I 5.290 H* D C-Reactive Protein NT-Pro-B Natriuret Pep Total Protein Albumin Procalcitonin 1.3 TSH (Reflex) Nasal MRSA (PCR) Detected A* Influenza A (RT-PCR) Influenza B (RT-PCR) RSV (RT-PCR) SARS-CoV-2 RNA (RT-PCR) 08/15/24 08/15/24 08/16/24 18:36 20:26 00:55 WBC RBC Hgb Hct MCV MCH MCHC RDW Plt Count MPV Immature Gran % (Auto) Neut % (Auto) Lymph % (Auto) [place] % (Auto) Eos % (Auto) Baso % (Auto) Lymph # (Auto) [place] # (Auto) Eos # (Auto) Baso # (Auto) Abs Immat Gran (auto) Absolute Neuts (auto) Absolute Nucleated RBC Nucleated RBC % % Immature Plt Fraction PT 17.3 H INR 1.4 APTT 40.7 H 49.0 H Sodium Potassium Chloride Carbon Dioxide Anion Gap BUN Creatinine Estim Creat Clear Calc Estimated GFR Glucose POC Capillary Glucose 188 H Hemoglobin A1c Lactic Acid Calcium Magnesium Total Bilirubin AST ALT Alkaline Phosphatase Total Creatine Kinase Troponin I C-Reactive Protein NT-Pro-B Natriuret Pep Total Protein Albumin Procalcitonin TSH (Reflex) Nasal MRSA (PCR) Influenza A (RT-PCR) Influenza B (RT-PCR) RSV (RT-PCR) SARS-CoV-2 RNA (RT-PCR) 08/16/24 08/16/24 08/16/24 04:07 04:08 07:24 WBC 8.0 RBC 3.51 L Hgb 9.1 L Hct 29.8 L MCV 84.9 MCH 25.9 L MCHC 30.5 L RDW 17.2 H Plt Count 114 L MPV 11.4 H Immature Gran % (Auto) 0.4 Neut % (Auto) 71.3 Lymph % (Auto) 18.8 [place] % (Auto) 7.8 Eos % (Auto) 1.3 Baso % (Auto) 0.4 Lymph # (Auto) 1.50 [place] # (Auto) 0.6 Eos # (Auto) 0.1 Baso # (Auto) 0.0 Abs Immat Gran (auto) 0.03 Absolute Neuts (auto) 5.7 Absolute Nucleated RBC 0.000 Nucleated RBC % 0.0 % Immature Plt Fraction 6.4 PT INR APTT 71.0 H Sodium 138 Potassium 4.2 Chloride 107 Carbon Dioxide 23 Anion Gap 8 BUN 25 H Creatinine 1.47 H Estim Creat Clear Calc 29 Estimated GFR 34 L Glucose 200 H POC Capillary Glucose Hemoglobin A1c Lactic Acid Calcium 8.4 Magnesium 1.8 Total Bilirubin 0.9 AST 37 H ALT 18 Alkaline Phosphatase 97 Total Creatine Kinase 264 H Troponin I C-Reactive Protein 32.0 H NT-Pro-B Natriuret Pep Total Protein 6.0 L Albumin 3.3 L Procalcitonin TSH (Reflex) 3.210 Nasal MRSA (PCR) Influenza A (RT-PCR) Influenza B (RT-PCR) RSV (RT-PCR) SARS-CoV-2 RNA (RT-PCR) 08/16/24 07:36 WBC RBC Hgb Hct MCV MCH MCHC RDW Plt Count MPV Immature Gran % (Auto) Neut % (Auto) Lymph % (Auto) [place] % (Auto) Eos % (Auto) Baso % (Auto) Lymph # (Auto) [place] # (Auto) Eos # (Auto) Baso # (Auto) Abs Immat Gran (auto) Absolute Neuts (auto) Absolute Nucleated RBC Nucleated RBC % % Immature Plt Fraction PT INR APTT Sodium Potassium Chloride Carbon Dioxide Anion Gap BUN Creatinine Estim Creat Clear Calc Estimated GFR Glucose POC Capillary Glucose 186 H Hemoglobin A1c Lactic Acid Calcium Magnesium Total Bilirubin AST ALT Alkaline Phosphatase Total Creatine Kinase Troponin I C-Reactive Protein NT-Pro-B Natriuret Pep Total Protein Albumin Procalcitonin TSH (Reflex) Nasal MRSA (PCR) Influenza A (RT-PCR) Influenza B (RT-PCR) RSV (RT-PCR) SARS-CoV-2 RNA (RT-PCR) Hospitalist MIPS Advance Care Plan I have confirmed that the patient's Advanced Care Plan is present, code status is documented, or surrogate decision maker is listed in patient medical record.: Yes Medication Reconciliation I have utilized all available resources to obtain, update and review the patients current medications (includes all prescriptions, OTC, herbals, cannabis, and nutritional supplements).: Yes
--- NOTE | 2024-08-16 11:38 | P.CONCA_ITS ---
Assessment and Plan Assessment and plan (1) Hypertension: Code(s): I10 - Essential (primary) hypertension Status: Acute (2) Non-ST elevation myocardial infarction (NSTEMI): Code(s): I21.4 - Non-ST elevation (NSTEMI) myocardial infarction Status: Acute (3) Coronary artery disease: Code(s): I25.10 - Atherosclerotic heart disease of [place] coronary artery without angina pectoris Status: Acute Plan 84-year-old with CAD status post PCI, diabetes, and hypertension presented with cough and congestion in setting of fevers Non ST-elevation [place] -likely demand in setting of her recent respiratory infection -continue to trend troponins to peak -continue heparin drip for 48 hours -continue aspirin 81 mg p.o. daily, rosuvastatin 5 mg every evening, and metoprolol succinate 25 mg p.o. daily -obtain a transthoracic echocardiogram Hypertension -continue losartan 25 mg p.o. daily -currently also on hydralazine 50 mg q.12h Hyperlipidemia -continue rosuvastatin 5 mg every evening History of Present Illness History of Present Illness Consult date/time: 08/16/24 11:38 Requesting physician: Jose Abbott MD Reason For Visit: Sepsis/PNA/NSTEMI Narrative: 84-year-old with CAD status post PCI, diabetes, and hypertension presented with cough and congestion in setting of fevers. She has been having chest discomfort whenever she coughs. She is unsure when she started to feel unwell with her coughing and sputum production. However prior to the onset of the symptoms, she lives at home with her and typically would be able to ambulate within the confines of her home without any cardiopulmonary difficulties. She denies any syncopal events. Her chest pain does not resolve with sublingual nitroglycerin and worsens with coughing. Review of Systems 2 Cardiovascular: Cardiovascular: Reports as per HPI Respiratory: Respiratory: Reports as per HPI [facility] Past Medical History Medical History (Updated 08/15/24 @ 22:13 by Alecia Bedoya PA-C) Recurrent urinary tract infection Fuchs' corneal dystrophy Cancer of kidney suspected kidney cancer being monitored for the last 4 years with recent increase in growth and plans for possible radiation therapy Coronary artery disease patient of Dr. Addy Norwood at [facility] Type 2 diabetes mellitus Congestive heart failure Hypertension Surgical History Surgical History (Updated 08/15/24 @ 22:13 by Alecia Bedoya PA-C) History of appendectomy History of cholecystectomy History of ventral hernia repair with mesh History of arthroplasty of right knee History of suprapubic catheter History of coronary artery stent placement (2018) Social History Social History (Updated 08/15/24 @ 22:14 by Alecia Bedoya PA-C) Social History: Healthcare power of title attorney: Bacilio Salas, son. Code status: Full code. Smoking status: Never smoker Alcohol intake: never Substance use: never Spiritual care concerns: No Meds Home Medications and Allergies Home Medications ?Medication ?Instructions ?Recorded ?Confirmed ?Type Lactobacillus acidophilus 100 mg PO DAILY 08/15/24 08/15/24 History (Acidophilus capsule) acetaminophen 325 mg tablet 325 mg PO Q4H PRN pain 08/15/24 08/15/24 History amlodipine 5 mg tablet 5 mg PO DAILY 08/15/24 08/15/24 History arginine-vitamin C-vitamin E oral 9.2 g PO TIDWM 08/15/24 08/15/24 History 4.5 gram-156 mg/9.2 gram powder pkt (Arginaid) aspirin 81 mg capsule 81 mg PO DAILY 08/15/24 08/15/24 History bupropion HCl 300 mg 24 hr tablet, 300 mg PO DAILY 08/15/24 08/15/24 History extended release d-mannose 500 mg capsule (AZO 500 mg PO BID 08/15/24 08/15/24 History D-Mannose) fluticasone propionate 50 1 spray intranasal Q12H PRN nasal 08/15/24 08/15/24 History mcg/actuation nasal congestion spray,suspension furosemide 20 mg tablet 20 mg PO .COMPLEX 08/15/24 08/15/24 History guaifenesin 600 mg tablet, 600 mg PO Q12H 08/15/24 08/15/24 History extended release 12 hr (Mucinex) hydralazine 50 mg tablet 50 mg PO Q12H 08/15/24 08/15/24 History hydrocodone 5 mg-acetaminophen 325 1 tablet PO Q4-6H PRN pain (scale 08/15/24 08/15/24 History mg tablet score 4-6) insulin lispro 100 unit/mL 1 sliding scale dose subcut 08/15/24 08/15/24 History subcutaneous solution (Humalog USEASDIRECTD U-100 Insulin) isosorbide mononitrate 30 mg 30 mg PO DAILY 08/15/24 08/15/24 History tablet,extended release 24 hr krill oil 500 mg capsule 1 mg PO DAILY 08/15/24 08/15/24 History loratadine 10 mg tablet 10 mg PO DAILY 08/15/24 08/15/24 History losartan 25 mg tablet 25 mg PO DAILY 08/15/24 08/15/24 History meclizine 25 mg tablet 25 mg PO QID PRN dizziness 08/15/24 08/15/24 History metoprolol succinate 25 mg 25 mg PO DAILY 08/15/24 08/15/24 History tablet,extended release 24 hr montelukast 10 mg tablet 10 mg PO HS 08/15/24 08/15/24 History multivitamin,jz-mqsi-Ul-FA-min 1 tablet PO Q12H 08/15/24 08/15/24 History polyethylene glycol 3350 17 gram 17 g PO DAILY PRN constipation 08/15/24 08/15/24 History oral powder packet (Miralax) potassium chloride 10 mEq 10 meq PO .COMPLEX 08/15/24 08/15/24 History tablet,extended release rosuvastatin 5 mg tablet 5 mg PO HS 08/15/24 08/15/24 History senna-docusate sodium tablet 1 tablet PO DAILY PRN constipation 08/15/24 08/15/24 History Allergies Allergy/AdvReac Type Severity Reaction Status Date / Time adhesive tape Allergy Unknown Verified 08/15/24 08:51 [facility] Allergy Unknown Verified 08/15/24 08:51 carvedilol Allergy Unknown Verified 08/15/24 08:51 latex Allergy Unknown Verified 08/15/24 08:51 Mvfltfh-GCP-BiW Reductase Allergy Unknown Verified 08/15/24 08:51 Inhibitor Sulfa (Sulfonamide Allergy Unknown Verified 08/15/24 08:51 Antibiotics) sulfasalazine Allergy Hives Verified 08/15/24 08:51 Sulfonylureas Allergy Unknown Verified 08/15/24 08:51 SULFA Allergy Unknown Uncoded 08/15/24 08:51 Vital Signs Vital Signs - 24 hr 08/15/24 12:03 08/15/24 12:31 08/15/24 13:59 Temperature 38.4 C H 37.2 C Pulse Rate 104 H 103 H 92 Respiratory Rate 32 H 27 H 26 H Blood Pressure 163/76 H 154/78 H 149/68 H Pulse Oximetry 93 95 95 Oxygen Delivery Oxygen Flow Rate Fraction of Inspired Oxygen 08/15/24 14:38 08/15/24 15:57 08/15/24 16:31 Temperature 36.9 C Pulse Rate 84 86 84 Respiratory Rate 27 H 27 H 28 H Blood Pressure 141/67 H 127/90 143/77 H Pulse Oximetry 95 97 96 Oxygen Delivery Oxygen Flow Rate Fraction of Inspired Oxygen 08/15/24 16:53 08/15/24 18:00 08/15/24 18:36 Temperature 37.1 C Pulse Rate 86 96 Respiratory Rate 18 Blood Pressure 147/78 H Pulse Oximetry 100 98 Oxygen Delivery Oxygen Flow Rate 2 Fraction of Inspired Oxygen 08/15/24 19:00 08/15/24 20:00 08/15/24 20:00 Temperature 37.1 C Pulse Rate 93 90 Respiratory Rate 18 Blood Pressure 139/65 Pulse Oximetry 92 95 Oxygen Delivery Venturi Mask Oxygen Flow Rate 3 Fraction of Inspired Oxygen 08/15/24 21:35 08/15/24 22:00 08/15/24 22:19 Temperature Pulse Rate 93 87 Respiratory Rate 18 Blood Pressure Pulse Oximetry 95 92 Oxygen Delivery Venturi Mask Venturi Mask Oxygen Flow Rate 3 3 Fraction of Inspired Oxygen 08/15/24 23:30 08/15/24 23:45 08/16/24 00:00 Temperature 36.7 C Pulse Rate 89 89 87 Respiratory Rate 18 18 Blood Pressure 137/68 Pulse Oximetry 93 93 Oxygen Delivery Venturi Mask Oxygen Flow Rate 3 Fraction of Inspired Oxygen 08/16/24 02:00 08/16/24 04:00 08/16/24 04:00 Temperature 36.4 C Pulse Rate 93 90 89 Respiratory Rate 18 Blood Pressure 130/68 Pulse Oximetry 92 Oxygen Delivery Oxygen Flow Rate Fraction of Inspired Oxygen 08/16/24 05:25 08/16/24 06:00 08/16/24 07:29 Temperature Pulse Rate 80 86 92 Respiratory Rate 18 20 Blood Pressure Pulse Oximetry 92 93 Oxygen Delivery Venturi Mask Venturi Mask Oxygen Flow Rate 3 4 Fraction of Inspired Oxygen 08/16/24 07:30 08/16/24 07:45 08/16/24 08:00 Temperature 38.1 C H Pulse Rate 92 92 97 Respiratory Rate 20 20 26 H Blood Pressure 131/69 Pulse Oximetry 92 Oxygen Delivery Oxygen Flow Rate Fraction of Inspired Oxygen 08/16/24 08:00 08/16/24 08:00 08/16/24 08:49 Temperature Pulse Rate 96 94 Respiratory Rate Blood Pressure Pulse Oximetry 94 Oxygen Delivery Nasal Cannula Oxygen Flow Rate 3 Fraction of Inspired Oxygen 08/16/24 08:56 08/16/24 09:10 08/16/24 09:25 Temperature Pulse Rate Respiratory Rate Blood Pressure 104/57 L 109/65 113/74 Pulse Oximetry Oxygen Delivery Oxygen Flow Rate Fraction of Inspired Oxygen 08/16/24 10:00 Temperature Pulse Rate 79 Respiratory Rate Blood Pressure Pulse Oximetry Oxygen Delivery Oxygen Flow Rate Fraction of Inspired Oxygen Exam 2 Const: Other: Ill-appearing HENMT: Mouth: Yes moist mucous membranes Eyes: EOM: EOMs intact bilaterally Neck: Neck: no JVD Resp: Effort & Inspection: normal respiratory effort Auscultation: rales Cardio: Rate: regular rate Rhythm: regular rhythm Extrem: General: no pedal edema Results Labs and Meds 08/16/24 04:08 08/16/24 04:07 Lab results: Cardiac Enzymes 08/15/24 08/15/24 08/16/24 Range/Units 12:01 16:21 04:07 AST 37 H (14-36) U/L Troponin I 2.960 H* 5.290 H* D (0.000-0.034) ng/mL Coagulation 08/15/24 08/15/24 08/16/24 Range/Units 09:15 18:36 00:55 PT 15.7 H 17.3 H (11.1-14.7) Seconds APTT 32.2 40.7 H 49.0 H (22.3-36.8) Seconds 08/16/24 Range/Units 07:24 PT (11.1-14.7) Seconds APTT 71.0 H (22.3-36.8) Seconds CBC 08/16/24 Range/Units 04:08 WBC 8.0 (4.5-10.0) K/mm3 RBC 3.51 L (4.2-5.4) M/mm3 Hgb 9.1 L (12.0-15.0) g/dL Hct 29.8 L (37.0-47.0) % Plt Count 114 L (150-375) k/mm3 Lymph # (Auto) 1.50 (0.9-3.2) K/mm3 [place] # (Auto) 0.6 (0.1-0.6) K/mm3 Eos # (Auto) 0.1 (0-0.3) K/mm3 Baso # (Auto) 0.0 (0.0-0.1) K/mm3 Comprehensive Metabolic Panel 08/16/24 Range/Units 04:07 Sodium 138 (137-145) mmol/L Potassium 4.2 (3.4-5.0) mmol/L Chloride 107 (98-107) mmol/L Carbon Dioxide 23 (22-30) mmol/L BUN 25 H (7-17) mg/dL Creatinine 1.47 H (0.7-1.0) mg/dL Glucose 200 H (65-110) mg/dL Calcium 8.4 (8.4-10.2) mg/dL AST 37 H (14-36) U/L ALT 18 (6-35) U/L Alkaline Phosphatase 97 (38-126) U/L Total Protein 6.0 L (6.3-8.2) g/dL Albumin 3.3 L (3.5-5.1) g/dL Intake and Output 08/15/24 08/16/24 08/16/24 23:59 07:59 15:59 Intake Total 1510 1223.8 16.2 Output Total 700 800 Balance 810 423.8 16.2 Intake: IV 1510 1223.8 16.2 Heparin Sod/D5w 100 Units/ml 25 60 173.8 16.2 ,000 units In 250 ml @ 1,500 UNITS/HR 15 mls/hr IV CONT . [id number] [facility] Rx#:[id number] Lactated Ringers 1,000 ml @ 125 1450 550 mls/hr IV CONT .Q8H [facility] Rx#: [id number] Vancomycin 1,000 mg/Ns 250 ml 1 250 ,000 mg In 250 ml @ 250 mls/hr IVPB ONCE ONE Rx#:[id number] Vancomycin 1,250 mg/Ns 250 ml 1 250 ,250 mg In 250 ml @ 166.667 mls /hr IVPB ONCE ONE Rx#:[id number] Output: Catheter Urine 700 800 Urethral Catheter 700 800 Patient Weight 08/16/24 23:59 Weight 88.5 kg
[2024-08-16] MEDS: INSULIN ASPART (*BKC) 100 UNITS/ML SUB-Q ×2 (11:41→21:13)
[2024-08-16] MEDS: AZITHROMYCIN 500 MG/NS 250 ML 500 MG/250 ML BAG 250 MG IVPB (11:44)
[2024-08-16 11:46] LABS: Glucose Point of Care 318 mg/dl (65-105)
[2024-08-16 14:33] LABS: Partial Thromboplastin Time 52.2 Seconds (22.3-36.8)
[2024-08-16 16:36] LABS: Glucose Point of Care 146 mg/dl (65-105)
--- NOTE | 2024-08-16 16:41 | PM.EVENT ---
Event Note Event Note Event Note: Spoke with her son who provided much of her cardiac history including [facility] Nor[facility]. Should cardiac catheterization be recommended, would prefer [facility] Nor[facility] especially in light of her complex anatomy. Known mid to distal LAD LEVEL VIAL INSIDE GRINDER with previous attempts at opening the vessel. Previously patent stents in OM1, OM2, and rPDA.
--- NOTE | 2024-08-16 18:23 | PC.NURSE ---
Notified Dr JALLOH and Dr Arias of patients oxygenation saturation 80-84% on venturi mask, having to titrate up. Pt currently on 12L 40% and sounds more wheezy then previous assessments. Received order from Dr JALLOH to give 40mg iv lasix once and to start heated high flow therapy. Orders read back and verified.
[2024-08-16] MEDS: FUROSEMIDE INJ 40 MG/4 ML VIAL IV PUSH (18:42)
[2024-08-16 19:23] LABS: Lactic Acid Reflex 1.8 mmol/L (0.7-2.0)
[2024-08-16 20:24] LABS: Glucose Point of Care 267 mg/dl (65-105)
[2024-08-16] MEDS: ROSUVASTATIN 5 MG TABLET PO (21:13)
[2024-08-16] MEDS: MONTELUKAST SODIUM 10 MG TABLET PO (21:13)
[2024-08-16 21:30] LABS: Hematocrit 28.5 % (37.0-47.0); Hemoglobin 8.9 g/dL (12.0-15.0)
[2024-08-16 21:52] LABS: Partial Thromboplastin Time 65.9 Seconds (22.3-36.8)
[2024-08-16] MEDS: HEPARIN SODIUM 5,000 UNITS/ML VIAL 3000 UNITS IV PUSH (22:05)
--- NOTE | 2024-08-16 23:20 | P.PNCROSS_ITS ---
Event Note Event Note Event Note: I received a call from the patient's nurse this evening reporting that the pat dawna was increasingly short of breath and had increasing oxygen requirements. She was previously on Venturi mask and was switched to Airvo, currently on 55 liters/minute with an FiO2 of 80%. The patient is sitting up in his alert and oriented. Reports that she is feeling much more comfortable on Airvo and feels less short of breath. Denies chest pain, palpitations, nausea, and vomiting. Heart rate is in the 80s to 90s with respiratory rates in the upper teens to low 20s. She does not have any significant lower extremity edema. Butt catheter in place but is clamped, awaiting for urine collection. She is alert and oriented and does not appear toxic. Increasing oxygen requirement is likely due to pneumonia although radiologist remarks that other consolidations in the lungs look consistent with inflammation/congestion rather than infectious. She received furosemide 40 mg IV x1 and we will see how she responds to that. Continue empiric antibiotics and scheduled bronchodilators. And I will see any need to check an ABG at this juncture. Critical Care Time Critical Care Time: Yes Total Critical Care Time: 25 Attestation: Due to a high probability of clinically significant, life threatening deterioration, the patient required my highest level of preparedness to i ntervene emergently and I personally spent this critical care time directly and personally managing the patient. This critical care time included obtaining a history; examining the patient; pulse oximetry; ordering and review of studies; arranging urgent treatment with development of a management plan; evaluation of patient's response to treatment; frequent reassessment; and discussions with other providers. It was exclusive of separately billable procedures and treating other patients and teaching time. Please see Assessment and Plan section and the rest of the note for further information on patient assessment and treatment.
[2024-08-17] VITALS (29 sets, daily range): BP systolic 102–120; BP diastolic 56–86; PULSE 65–94; RESP 18–28; TEMP 36.9–39.1; O2SAT 86–100
[2024-08-17 00:05] LABS: Add Urine Microscopic? YES; Appearance Urine Cloudy (Clear); Bacteria Urine None Seen /hpf; Bilirubin Urine Negative (Negative); Blood Urine 2+ (Negative); Color Urine Yellow (Yellow); Glucose Urine UA Negative (Negative); Ketones Urine Negative (Negative); Leukocyte Esterase Ur Negative LEU/UL (Negative); Need Manual Microscopic Reviewed; Nitrate Urine Negative (Negative); Protein Urine 2+ mg/dL (Negative); RBC Urine >100 /hpf (0-2); Specific Grav Ur 1.011 (1.001-1.035); Squamous Epithelial Cell Urine None Seen /hpf (Few); Urobilinogen Urine 0.2 mg/dL (<2.0); WBC Urine 0-5 /hpf (0-3)
[2024-08-17] MEDS: HEPARIN SOD/D5W 100 UNITS/ML 25,000 UNITS/250 ML BAG 19 UNITS IV CONT (00:28)
[2024-08-17] MEDS: IPRATROPIUM 0.5 MG/ALBUTEROL SULFATE 2.5 MG AMPUL.NEB 3 ML INHALATION ×4 (02:28→20:00)
[2024-08-17 04:40] LABS: Estimated CRCL calculation 23 ml/min; Estimated Glomerular Filt Rate 26
[2024-08-17 04:43] LABS: Partial Thromboplastin Time 84.7 Seconds (22.3-36.8)
[2024-08-17 07:40] LABS: Glucose Point of Care 206 mg/dl (65-105)
[2024-08-17] MEDS: LORATADINE 10 MG TABLET PO (08:54)
[2024-08-17] MEDS: buPROPion HCL XL (24 HR) 150 MG TABCR 300 MG PO (08:54)
[2024-08-17] MEDS: ISOSORBIDE MONONITRATE 30 MG TAB.ER.24H PO (08:55)
[2024-08-17] MEDS: guaiFENesin 12 HR 600 MG TABCR PO ×2 (08:55→20:02)
[2024-08-17] MEDS: MUPIROCIN 2% OINT 22 GM TUBE 1 APPLIC EACH NARE ×2 (08:55→20:02)
[2024-08-17] MEDS: amLODIPine BESYLATE 5 MG TABLET PO (08:55)
[2024-08-17] MEDS: MULTIVIT/MIN/PREN/FOL AC/IRON TABLET 1 TAB PO (08:55)
[2024-08-17] MEDS: METOPROLOL SUCCINATE EXT REL 25 MG TABCR PO (08:55)
[2024-08-17] MEDS: ASPIRIN 81 MG ENTERIC TABLET PO (08:55)
[2024-08-17] MEDS: LOSARTAN POTASSIUM 25 MG TABLET PO (08:55)
[2024-08-17] MEDS: hydrALAZINE HCL 50 MG TABLET PO ×2 (08:55→20:01)
[2024-08-17] MEDS: ACIDOPHILUS/BULGARICUS CHEWABLE TABLET 1 TABLET PO (08:55)
[2024-08-17] MEDS: INSULIN ASPART (*BKC) 100 UNITS/ML SUB-Q ×4 (08:57→20:13)
[2024-08-17 10:39] LABS: Partial Thromboplastin Time 64.2 Seconds (22.3-36.8)
[2024-08-17] MEDS: HEPARIN SODIUM 5,000 UNITS/ML VIAL 3000 UNITS IV PUSH (11:00)
[2024-08-17] MEDS: VANCOMYCIN 1,500 MG/NS 500 ML 1,500 MG/500 ML BAG 250 MG IVPB (11:08)
[2024-08-17] MEDS: AZITHROMYCIN 500 MG/NS 250 ML 500 MG/250 ML BAG 250 MG IVPB (11:08)
--- NOTE | 2024-08-17 11:16 | PCSTNOTE ---
Please refer to the Bedside Swallow Evaluation in the EMR. Please note, silent aspiration cannot be ruled out at bedside. Pt, with a dx of pneumonia & on airvo, was seen for a swallow evaluation at the bedside. She was positioned upright in the bed and had just received her breakfast tray. Items from her tray as well as pudding was used to test her swallowing ability; pt denied dysphagia. A cursory oral motor exam revealed labial and lingual structures to be within functional limits. Her vocal quality was clear. Upon readjusting the HOB pt was coughing before any oral trials. Poor dentition was exhibited as she had no upper teeth and many missing lower teeth. Pt indicated she can eat solids with her current dentition. She was tested with controlled amounts/pieces of pancake, tsp amounts of pudding, tsp amounts of thin liquids as well as cup sips and straw drinks. Overall the oral stages were found to be within functional limits with no leakage, pocketing or residue. The pharyngeal swallow appeared prompt; laryngeal elevation appeared adequate. However, intermittent cough occurred after the pancake trials and the straw drinking (thin liquids). Impression: Questionable degree of dysphagia due to inconsistent cough Recommendations: further assess swallow ability via MBS to determine a safe diet and rule out aspiration. Attempted to schedule MBS but per MD pt was not able to transport to x-ray due to being on airvo. Monitor all oral intake until MBS; make NPO if further distress is exhibited during oral intake. ST will complete MBS when medically stable to transport to xray.
[2024-08-17 12:09] LABS: Glucose Point of Care 265 mg/dl (65-105)
[2024-08-17 12:09] LABS: Alveolar/Arterial O2 Gradient 300.9 mmHg; Base Excess ABG -0.7 mEq/l (+/-2.0); Fractional Inspired Oxygen 60 %; HCO3 ABG 20.3 mEq/l (22.0-26.0); Oxygen Content ABG 12.4 %vol (16.0-22.0); Oxygen Saturation ABG 98.5 % (95.0-100.0); Oxyhemoglobin 97.8 % THb (90.0-100.0); PO2 ABG 102.6 mmHg (80.0-100.0); PO2 FiO2 Ratio Arterial Blood 1.71 %; Total Hemoglobin 8.9 g/dL (12.0-18.0)
[2024-08-17 12:16] LABS: pH ABG 7.581 (7.350-7.450)
[2024-08-17 12:17] LABS: Device HIGH FLOW THERAPY; Modified Allen's Test Pass; PCO2 ABG 22.1 mmHg (35.0-45.0); Site Drawn RIGHT RADIAL
--- NOTE | 2024-08-17 13:08 | P.PNCA_ITS ---
Progress Note: A&P Assessment and Plan (1) Congestive heart failure: Code(s): I50.9 - Heart failure, unspecified Status: Acute Plan 84-year-old with CAD status post PCI, diabetes, and hypertension presented with cough and congestion in setting of fevers Non ST-elevation ND -Known CAD with stents in the OM1, OM2, RPDA. Has SMOKE TESTER of the mid-distal LAD; previously failed SMOKE TESTER PCI in the past. -Likely demand in setting of her recent respiratory infection -Treated with Heparin drip x 48 hours -Continue aspirin 81 mg daily, rosuvastatin 5 mg every evening, metoprolol succinate 25 mg daily, Imdur 30mg daily -TTE with normal LVEF without appreciable wall motion abnormalities. -Per review of [facility] notes, her primary Cardiology team had stopped Plavix as she was falling frequently. -At this time, will plan for medical management given worsening anemia, CHAYA on CKD, needs optimization of CHF. Acute on chronic heart failure with preserved LVEF: -CXR with moderate-advanced probable pulmonary edema pattern; correlate for greg ateral multifocal pneumonia. -Start IV Lasix 40mg BID. Please monitor strict I/Os. -Has history of frequent UTI, therefore, will not add SGLT2-inhibitor at this time. Hypertension -Continue current antihypertensives Hyperlipidemia -Continue rosuvastatin 5 mg every evening Anemia -Has significant anemia with Hgb down to 8.9. Management/workup as per primary team. Of note, Hgb dropped from 11.1 to 8.9 while on Heparin drip. Heparin drip now discontinued. CHAYA on CKD -SCr increased from 1.5 to 1.88. Closely monitor renal function with IV diuresis. Pneumonia: -On antibiotics per Hospitalist. Subjective Date/time seen: 08/17/24 13:08 Interval history: Reason for visit: Elevated troponins, CHF HPI: 84-year-old with CAD status post PCI, diabetes, and hypertension presented with cough and congestion in setting of fevers. She has been having chest discomfort whenever she coughs. She is unsure when she started to feel unwell with her coughing and sputum production. However prior to the onset of the symptoms, she lives at home with her and typically would be able to ambulate within the confines of her home without any cardiopulmonary difficulties. She denies any syncopal events. Her chest pain does not resolve with sublingual nitroglycerin and worsens with coughing. Date of service 08/17: Overnight, she had worsening shortness of breath with increasing oxygen requirements. Was placed on HFNC, given dose of IV Lasix. On broad spectrum antibiotics. She reports feeling better today. Denies chest pain. Review of Systems Cardiovascular: Cardiovascular: Reports as per HPI Exam Const: General: no acute distress Other: Elderly female, appears older than stated age Resp: Effort & Inspection: normal respiratory effort Auscultation: diminished lung sounds Other: On supplemental oxygen Cardio: Rate: regular rate Rhythm: regular rhythm Skin: General skin exam: normal color Neuro: Speech: normal speech Psych: Affect: normal affect Objective Data Vital Signs Vital Signs: Vital Signs - 24 hr 08/16/24 14:00 08/16/24 15:45 08/16/24 16:00 Temperature 37.7 C H Pulse Rate 84 80 109 H Respiratory Rate 20 26 H Blood Pressure 113/45 L Pulse Oximetry 96 Oxygen Delivery Oxygen Flow Rate Fraction of Inspired Oxygen 08/16/24 16:00 08/16/24 16:00 08/16/24 18:00 Temperature Pulse Rate 105 H 108 H Respiratory Rate Blood Pressure Pulse Oximetry 90 Oxygen Delivery Nasal Cannula Oxygen Flow Rate 3 Fraction of Inspired Oxygen 08/16/24 18:33 08/16/24 18:57 08/16/24 19:52 Temperature 37.6 C H Pulse Rate 105 H 93 Respiratory Rate 22 H 19 Blood Pressure 112/74 Pulse Oximetry 93 93 98 Oxygen Delivery High Flow Therapy with Na High Flow Therapy with Na Oxygen Flow Rate 55 55 Fraction of Inspired Oxygen 80 80 08/16/24 20:00 08/16/24 20:00 08/16/24 20:29 Temperature Pulse Rate 92 89 Respiratory Rate 20 Blood Pressure Pulse Oximetry 99 Oxygen Delivery High Flow Therapy with Na Oxygen Flow Rate 55 Fraction of Inspired Oxygen 80 08/16/24 20:30 08/16/24 20:39 08/16/24 20:53 Temperature Pulse Rate 91 Respiratory Rate 20 Blood Pressure Pulse Oximetry 99 98 Oxygen Delivery High Flow Therapy with Na High Flow Therapy with Na Oxygen Flow Rate 55 45 Fraction of Inspired Oxygen 80 70 08/16/24 22:00 08/16/24 23:23 08/17/24 00:00 Temperature 36.4 C Pulse Rate 82 78 Respiratory Rate 18 Blood Pressure 119/71 Pulse Oximetry 98 100 Oxygen Delivery High Flow Therapy with Na Oxygen Flow Rate 45 Fraction of Inspired Oxygen 70 08/17/24 00:00 08/17/24 02:00 08/17/24 02:30 Temperature Pulse Rate 75 75 79 Respiratory Rate 20 Blood Pressure Pulse Oximetry Oxygen Delivery Oxygen Flow Rate Fraction of Inspired Oxygen 08/17/24 02:34 08/17/24 03:45 08/17/24 04:00 Temperature 36.9 C Pulse Rate 77 Respiratory Rate 18 Blood Pressure 120/62 Pulse Oximetry 98 99 98 Oxygen Delivery High Flow Therapy with Na High Flow Therapy with Na Oxygen Flow Rate 45 40 Fraction of Inspired Oxygen 70 60 08/17/24 04:00 08/17/24 06:00 08/17/24 07:44 Temperature 37.8 C H Pulse Rate 78 90 83 Respiratory Rate 24 H Blood Pressure 117/69 Pulse Oximetry 98 Oxygen Delivery Oxygen Flow Rate Fraction of Inspired Oxygen 08/17/24 08:00 08/17/24 08:00 08/17/24 08:54 Temperature Pulse Rate 92 93 Respiratory Rate 20 Blood Pressure Pulse Oximetry 95 95 Oxygen Delivery High Flow Therapy with Na High Flow Therapy with Na Oxygen Flow Rate 40 40 Fraction of Inspired Oxygen 60 60 08/17/24 08:54 08/17/24 09:05 08/17/24 10:00 Temperature Pulse Rate 85 92 85 Respiratory Rate 20 20 Blood Pressure Pulse Oximetry Oxygen Delivery Oxygen Flow Rate Fraction of Inspired Oxygen 08/17/24 11:46 08/17/24 12:20 08/17/24 12:29 Temperature 38.3 C H Pulse Rate 87 72 Respiratory Rate 26 H 20 Blood Pressure 120/86 Pulse Oximetry 95 98 92 Oxygen Delivery High Flow Therapy with Na Nasal Cannula Oxygen Flow Rate 40 5 Fraction of Inspired Oxygen 60 08/17/24 12:48 Temperature Pulse Rate 65 Respiratory Rate 20 Blood Pressure Pulse Oximetry 94 Oxygen Delivery Nasal Cannula Oxygen Flow Rate 5 Fraction of Inspired Oxygen Intake/Output Intake/Output: Intake & Output 08/14/24 08/15/24 08/16/24 08/17/24 23:59 23:59 23:59 23:59 Intake Total 1810 2570.0 680.4 Output Total 700 1550 500 Balance 1110 1020.0 180.4 Meds/Results Medications: Active Medications Generic Name Dose Route Start Last Admin Trade Name Freq PRN Reason Stop Dose Admin Acetaminophen 650 mg 08/15/24 15:44 08/16/24 09:03 Acetaminophen 325 Mg Tablet PO 650 mg Q6H PRN Administration Mild Pain (1-3) or Fever Hydrocodone Bitart/Acetaminophen 1 tab 08/15/24 22:20 Hydrocodone/Acetaminophen (*Crx) 5-325 Mg Tablet PO Q4-6H PRN pain (scale score 4-6) Albuterol 2 puff 08/15/24 15:44 Albuterol Sulfate (*Sp) Aerosol 1 Puff INHALATION QIDRT PRN Shortness Of Breath Albuterol/Ipratropium 3 ml 08/16/24 02:00 08/17/24 08:52 Ipratropium 0.5 Mg/Albuterol Sulfate 2.5 Mg Ampul.Neb 3 Ml INHALATION 3 ml Q6HRT TEMI Administration Amlodipine Besylate 5 mg 08/16/24 09:00 08/17/24 08:55 Amlodipine Besylate 5 Mg Tablet PO 5 mg DAILY TEMI Administration Aspirin 81 mg 08/16/24 09:00 08/17/24 08:55 Aspirin 81 Mg Enteric Tablet PO 81 mg QAM TEMI Administration Bupropion HCl 300 mg 08/16/24 09:00 08/17/24 08:54 Bupropion Hcl Xl (24 Hr) 150 Mg Tabcr PO 300 mg DAILY TEMI Administration Dextrose 12.5 gm 08/15/24 15:49 Dextrose 50% 25 Gm/50 Ml Syringe IV PUSH PRN PRN Hypoglycemia Protocol Fluticasone Propionate 1 spray 08/15/24 22:20 Fluticasone Propionate 0.05% Na Spr 16 Gm Btl (*Bkc) NASAL Q12H PRN nasal congestion Glucagon 1 mg 08/15/24 15:49 Glucagon For Inj 1 Mg Vial IM PRN PRN Hypoglycemia Protocol Glucose 15 gm 08/15/24 15:49 Glucose Oral Gel 15 Gm Of Glucse In 37.5 Gm Tube PO PRN PRN Hypoglycemia Protocol Guaifenesin 600 mg 08/15/24 22:20 08/17/24 08:55 Guaifenesin 12 Hr 600 Mg Tabcr PO 600 mg Q12HR TEMI Administration Hydralazine HCl 50 mg 08/15/24 22:20 08/17/24 08:55 Hydralazine Hcl 50 Mg Tablet PO 50 mg Q12HR TEMI Administration Dextrose 1,000 mls @ 100 mls/hr 08/15/24 15:49 Dextrose 5% 1,000 Ml IVPB PRN PRN Hypoglycemia Protocol Ceftriaxone Sodium 1 gm in 50 mls @ 100 mls/hr 08/16/24 12:00 08/17/24 11:09 Rocephin 1 Gm/Ns 50 Ml IVPB 100 mls/hr Q24H TEMI Administration Azithromycin 500 mg in 250 mls @ 250 mls/hr 08/16/24 12:00 08/17/24 11:08 Zithromax IVPB 250 mls/hr Q24H TEMI Administration Vancomycin HCl 1,500 mg in 500 mls @ 250 mls/hr 08/17/24 11:00 08/17/24 11:08 Vancomycin 1,500 Mg/Ns 500 Ml IVPB 250 mls/hr Q36H TEMI Administration Insulin Aspart 1 - 3 units 08/15/24 21:00 08/16/24 21:13 Insulin Aspart (*Bkc) 100 Units/Ml SUB-Q 2 units HS TEMI Administration Protocol Insulin Aspart 3 - 6 units 08/15/24 17:00 08/17/24 12:45 Insulin Aspart (*Bkc) 100 Units/Ml SUB-Q 4 units TIDWM TEMI Administration Protocol Isosorbide Mononitrate 30 mg 08/16/24 09:00 08/17/24 08:55 Isosorbide Mononitrate 30 Mg Tab.Er.24h PO 30 mg DAILY TEMI Administration Lactobacillus Acidophilus 1 tablet 08/16/24 09:00 08/17/24 08:55 Acidophilus/Bulgaricus Chewable Tablet PO 1 tablet DAILY TEMI Administration Loratadine 10 mg 08/16/24 09:00 08/17/24 08:54 Loratadine 10 Mg Tablet PO 10 mg DAILY TEMI Administration Losartan Potassium 25 mg 08/16/24 09:00 08/17/24 08:55 Losartan Potassium 25 Mg Tablet PO 25 mg DAILY TEMI Administration Metoprolol Succinate 25 mg 08/16/24 09:00 08/17/24 08:55 Metoprolol Succinate Ext Rel 25 Mg Tabcr PO 25 mg DAILY TEMI Administration Montelukast Sodium 10 mg 08/16/24 21:00 08/16/24 21:13 Montelukast Sodium 10 Mg Tablet PO 10 mg HS TEMI Administration Mupirocin 1 applic 08/15/24 21:00 08/17/24 08:55 Mupirocin 2% Oint 22 Gm Tube EACH NARE 1 applic Q12HR TEMI Administration Nitroglycerin 0.4 mg 08/16/24 08:22 08/16/24 08:48 Nitroglycerin Sl 0.4 Mg Tablet SUBLINGUAL 0.4 mg Q5MIN PRN Administration Chest Pain Perflutren Lipid Microsphere 0 ml 08/15/24 11:11 Perflutren Lipid Microspheres 1.5 Ml Vial Diluted To 10 Ml Total Volume IV PUSH 08/18/24 11:11 ONCE PRN adequate visualization Protocol Polyethylene Glycol 17 gm 08/15/24 22:20 Polyethylene Glycol 3350 17 Gm Powd.Pack PO DAILY PRN constipation Potassium Chloride 10 meq 08/15/24 22:20 08/15/24 23:20 Potassium Chloride 10 Meq Er Tablet PO 10 meq Q48H TEMI Administration Vit/Calcium/Iron/Folic Ac 1 tab 08/16/24 09:00 08/17/24 08:55 Multivit/Min/Pren/Fol Ac/Iron Tablet PO 1 tab QAM TEMI Administration Rosuvastatin Calcium 5 mg 08/16/24 21:00 08/16/24 21:13 Rosuvastatin 5 Mg Tablet PO 5 mg HS TEMI Administration Senna/Docusate Sodium 1 tab 08/15/24 22:37 Senna/Docusate Sodium Tablet PO DAILY PRN constipation Radiology Results: ITS Impressions Chest CTA 08/15/24 11:11 IMPRESSION: No pulmonary embolus. No thoracic aortic dissection. Right upper lobe infiltrate with patchy bilateral airspace disease, likely inflammatory/congestive rather than infectious. Small bilateral pleural effusions with adjacent atelectasis. Chest X-Ray 08/17/24 10:22 Impression: Moderate to advanced probable pulmonary edema pattern. Correlate for bilateral multifocal pneumonia. Probable minimal pleural effusions. Labs Labs: Laboratory Results - last 24 hr 08/15/24 08/16/24 08/16/24 23:37 14:07 16:28 Hgb Hct APTT 52.2 H Puncture Site ABG pH ABG pCO2 ABG pO2 ABG PO2/FiO2 Ratio ABG HCO3 ABG O2 Saturation ABG O2 Content ABG Base Excess A-a Gradient Oxyhemoglobin Total Hemoglobin O2 Delivery Device O2 Liters/Min FiO2 Creatinine Estim Creat Clear Calc Estimated GFR POC Capillary Glucose 146 H Lactic Acid Troponin I 4.190 H* Urine Color Yellow Urine Appearance Cloudy H Urine pH 5.0 Ur Specific [place] 1.011 Urine Protein 2+ H Urine Glucose (UA) Negative Urine Ketones Negative Ur Blood (Man) 2+ H Urine Nitrate Negative Urine Bilirubin Negative Urine Urobilinogen 0.2 Add Ur Microanalysis Reviewed Leukocyte Esterase Rfl Negative Urine RBC >100 H Urine WBC 0-5 Ur Squamous Epith Cells None seen Urine Bacteria None seen Urine Casts 3-5 08/16/24 08/16/24 08/16/24 19:05 19:55 21:17 Hgb 8.9 L Hct 28.5 L APTT 65.9 H Puncture Site ABG pH ABG pCO2 ABG pO2 ABG PO2/FiO2 Ratio ABG HCO3 ABG O2 Saturation ABG O2 Content ABG Base Excess A-a Gradient Oxyhemoglobin Total Hemoglobin O2 Delivery Device O2 Liters/Min FiO2 Creatinine Estim Creat Clear Calc Estimated GFR POC Capillary Glucose 267 H Lactic Acid 1.8 Troponin I Urine Color Urine Appearance Urine pH Ur Specific [place] Urine Protein Urine Glucose (UA) Urine Ketones Ur Blood (Man) Urine Nitrate Urine Bilirubin Urine Urobilinogen Add Ur Microanalysis Leukocyte Esterase Rfl Urine RBC Urine WBC Ur Squamous Epith Cells Urine Bacteria Urine Casts 08/17/24 08/17/24 08/17/24 04:00 07:34 10:07 Hgb Hct APTT 84.7 H 64.2 H Puncture Site ABG pH ABG pCO2 ABG pO2 ABG PO2/FiO2 Ratio ABG HCO3 ABG O2 Saturation ABG O2 Content ABG Base Excess A-a Gradient Oxyhemoglobin Total Hemoglobin O2 Delivery Device O2 Liters/Min FiO2 Creatinine 1.88 H Estim Creat Clear Calc 23 Estimated GFR 26 L POC Capillary Glucose 206 H Lactic Acid Troponin I Urine Color Urine Appearance Urine pH Ur Specific [place] Urine Protein Urine Glucose (UA) Urine Ketones Ur Blood (Man) Urine Nitrate Urine Bilirubin Urine Urobilinogen Add Ur Microanalysis Leukocyte Esterase Rfl Urine RBC Urine WBC Ur Squamous Epith Cells Urine Bacteria Urine Casts 08/17/24 08/17/24 11:51 12:07 Hgb Hct APTT Puncture Site Right radial ABG pH 7.581 H* ABG pCO2 22.1 L* ABG pO2 102.6 H ABG PO2/FiO2 Ratio 1.71 ABG HCO3 20.3 L ABG O2 Saturation 98.5 ABG O2 Content 12.4 L ABG Base Excess -0.7 A-a Gradient 300.9 Oxyhemoglobin 97.8 Total Hemoglobin 8.9 L O2 Delivery Device High flow therapy O2 Liters/Min 40.0 FiO2 60 Creatinine Estim Creat Clear Calc Estimated GFR POC Capillary Glucose 265 H Lactic Acid Troponin I Urine Color Urine Appearance Urine pH Ur Specific [place] Urine Protein Urine Glucose (UA) Urine Ketones Ur Blood (Man) Urine Nitrate Urine Bilirubin Urine Urobilinogen Add Ur Microanalysis Leukocyte Esterase Rfl Urine RBC Urine WBC Ur Squamous Epith Cells Urine Bacteria Urine Casts
[2024-08-17] MEDS: ACETAMINOPHEN 325 MG TABLET 650 MG PO (16:01)
[2024-08-17] MEDS: FUROSEMIDE INJ 40 MG/4 ML VIAL IV PUSH (16:03)
[2024-08-17 16:52] LABS: Glucose Point of Care 266 mg/dl (65-105)
--- NOTE | 2024-08-17 17:59 | PM.IMPN ---
Progress Note: A&P Assessment and Plan (1) Hypertension: Code(s): I10 - Essential (primary) hypertension Status: Acute (2) Congestive heart failure: Code(s): I50.9 - Heart failure, unspecified Status: Acute (3) Non-ST elevation myocardial infarction (NSTEMI): Code(s): I21.4 - Non-ST elevation (NSTEMI) myocardial infarction Status: Acute (4) Coronary artery disease: Code(s): I25.10 - Atherosclerotic heart disease of [place] coronary artery without angina pectoris Status: Acute (5) Type 2 diabetes mellitus: Code(s): E11.9 - Type 2 diabetes mellitus without complications Status: Acute Plan PNA Vital signs improved and stable On Ceftriaxone ,azithromycin and Vancomycin monitor cultures MRSA negative encourage oral intake Non ST elevation LA Cardiology eval noted likely from demand -Continue heparin drip and give sublingual nitro if needed -Continue aspirin 81 mg and rosuvastatin 5 mg -continue metoprolol succinate 25 mg p.o. q.d., losartan 25 mg p.o. q.d., hydralazine p.o. b.i.d.. -continue Imdur 30 mg p.o. q.d. -Lasix 20 mg p.o. Q 48 hours -Give sublingual nitro if needed -Echocardiogram pending -Reviewed EKG and CXR -history of 2-3 stents in 2018 with -recommends to discuss with primary bull rider if patient needs cardiac catheterization cardiology on board HTN As above Suprapubic catheter Due to right renal mass Follows up with Urology DVT prophylaxis on Sq Heparin Subjective Date/time seen: 08/17/24 17:59 Interval history: Comfortable at bedside Review of Systems Review of Systems: 12 systems were reviewed and are negative except for as per HPI. Exam Narrative: General: Moderately ill-appearing elderly female in the semi-Sam position in bed. She is sleepy but will arouse to voice, answer questions, and follow commands. Weight: 86.3 kg. BMI: 30.7. HEENT: PERRL, EOMI. Sclera anicteric. Tacky mucous membranes. Neck: Supple. No JVD. Respiratory: Respirations are nonlabored. Frequent loose sounding cough which has been nonproductive. Bronchial breath sounds heard over the right upper lobe anteriorly. Scattered rales and occasional rhonchi throughout lung marx. Cardiovascular: Regular rate and rhythm with S1-S2. Gastrointestinal: Abdomen is soft, nontender, and nondistended with positive bowel sounds. No guarding or rebound tenderness. Genitourinary: Suprapubic catheter is draining slightly cloudy yellow urine. Skin: Warm and moist. Extremities: No cyanosis, clubbing, or edema. Radial and pedal pulses intact. Neurological: Alert and oriented x3. She does not really recall much that happened earlier this morning. Cranial nerves 2-12 are grossly intact. Speech is clear. No facial asymmetry. 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 Generally weak without gross focal findings. Psychiatric: Pleasant and cooperative with appropriate mood and affect. Objective Data Vital Signs Vital Signs: Vital Signs - 24 hr 08/16/24 18:00 08/16/24 18:33 08/16/24 18:57 Temperature Pulse Rate 108 H 105 H Respiratory Rate 22 H Blood Pressure Pulse Oximetry 93 93 Oxygen Delivery High Flow Therapy with Na High Flow Therapy with Na Oxygen Flow Rate 55 55 Fraction of Inspired Oxygen 80 80 08/16/24 19:52 08/16/24 20:00 08/16/24 20:00 Temperature 99.7 F H Pulse Rate 93 92 Respiratory Rate 19 Blood Pressure 112/74 Pulse Oximetry 98 99 Oxygen Delivery High Flow Therapy with Na Oxygen Flow Rate 55 Fraction of Inspired Oxygen 80 08/16/24 20:29 08/16/24 20:30 08/16/24 20:39 Temperature Pulse Rate 89 91 Respiratory Rate 20 20 Blood Pressure Pulse Oximetry 99 Oxygen Delivery High Flow Therapy with Na Oxygen Flow Rate 55 Fraction of Inspired Oxygen 80 08/16/24 20:53 08/16/24 22:00 08/16/24 23:23 Temperature 97.6 F Pulse Rate 82 78 Respiratory Rate 18 Blood Pressure 119/71 Pulse Oximetry 98 98 Oxygen Delivery High Flow Therapy with Na Oxygen Flow Rate 45 Fraction of Inspired Oxygen 70 08/17/24 00:00 08/17/24 00:00 08/17/24 02:00 Temperature Pulse Rate 75 75 Respiratory Rate Blood Pressure Pulse Oximetry 100 Oxygen Delivery High Flow Therapy with Na Oxygen Flow Rate 45 Fraction of Inspired Oxygen 70 08/17/24 02:30 08/17/24 02:34 08/17/24 03:45 Temperature 98.4 F Pulse Rate 79 77 Respiratory Rate 20 18 Blood Pressure 120/62 Pulse Oximetry 98 99 Oxygen Delivery High Flow Therapy with Na Oxygen Flow Rate 45 Fraction of Inspired Oxygen 70 08/17/24 04:00 08/17/24 04:00 08/17/24 06:00 Temperature Pulse Rate 78 90 Respiratory Rate Blood Pressure Pulse Oximetry 98 Oxygen Delivery High Flow Therapy with Na Oxygen Flow Rate 40 Fraction of Inspired Oxygen 60 08/17/24 07:44 08/17/24 08:00 08/17/24 08:00 Temperature 100.1 F H Pulse Rate 83 92 93 Respiratory Rate 24 H 20 Blood Pressure 117/69 Pulse Oximetry 98 95 Oxygen Delivery High Flow Therapy with Na Oxygen Flow Rate 40 Fraction of Inspired Oxygen 60 08/17/24 08:54 08/17/24 08:54 08/17/24 09:05 Temperature Pulse Rate 85 92 Respiratory Rate 20 20 Blood Pressure Pulse Oximetry 95 Oxygen Delivery High Flow Therapy with Na Oxygen Flow Rate 40 Fraction of Inspired Oxygen 60 08/17/24 10:00 08/17/24 11:46 08/17/24 12:00 Temperature 100.9 F H Pulse Rate 85 87 65 Respiratory Rate 26 H 20 Blood Pressure 120/86 Pulse Oximetry 95 94 Oxygen Delivery Nasal Cannula Oxygen Flow Rate 5 Fraction of Inspired Oxygen 60 08/17/24 12:00 08/17/24 12:20 08/17/24 12:29 Temperature Pulse Rate 86 72 Respiratory Rate 20 Blood Pressure Pulse Oximetry 98 92 Oxygen Delivery High Flow Therapy with Na Nasal Cannula Oxygen Flow Rate 40 5 Fraction of Inspired Oxygen 60 08/17/24 12:48 08/17/24 14:00 08/17/24 14:17 Temperature Pulse Rate 65 92 94 Respiratory Rate 20 20 Blood Pressure Pulse Oximetry 94 86 L Oxygen Delivery Nasal Cannula Nasal Cannula Oxygen Flow Rate 5 5 Fraction of Inspired Oxygen 08/17/24 14:17 08/17/24 16:00 08/17/24 16:00 Temperature 102.3 F H Pulse Rate 94 89 89 Respiratory Rate 20 28 H 28 H Blood Pressure 113/62 Pulse Oximetry 92 92 Oxygen Delivery Nasal Cannula Oxygen Flow Rate 30 Fraction of Inspired Oxygen 60 08/17/24 16:00 08/17/24 16:01 08/17/24 17:32 Temperature 102.4 F H 100.3 F H Pulse Rate 89 Respiratory Rate Blood Pressure Pulse Oximetry Oxygen Delivery Oxygen Flow Rate Fraction of Inspired Oxygen Intake/Output Intake/Output: Intake & Output 08/14/24 08/15/24 08/16/24 08/17/24 23:59 23:59 23:59 23:59 Intake Total 1810 2570.0 1270.4 Output Total 700 1550 1025 Balance 1110 1020.0 245.4 Meds/Results Medications: Active Medications Generic Name Dose Route Start Last Admin Trade Name Freq PRN Reason Stop Dose Admin Acetaminophen 650 mg 08/15/24 15:44 08/17/24 16:01 Acetaminophen 325 Mg Tablet PO 650 mg Q6H PRN Administration Mild Pain (1-3) or Fever Hydrocodone Bitart/Acetaminophen 1 tab 08/15/24 22:20 Hydrocodone/Acetaminophen (*Crx) 5-325 Mg Tablet PO Q4-6H PRN pain (scale score 4-6) Albuterol 2 puff 08/15/24 15:44 Albuterol Sulfate (*Sp) Aerosol 1 Puff INHALATION QIDRT PRN Shortness Of Breath Albuterol/Ipratropium 3 ml 08/16/24 02:00 08/17/24 14:16 Ipratropium 0.5 Mg/Albuterol Sulfate 2.5 Mg Ampul.Neb 3 Ml INHALATION 3 ml Q6HRT TEMI Administration Amlodipine Besylate 5 mg 08/16/24 09:00 08/17/24 08:55 Amlodipine Besylate 5 Mg Tablet PO 5 mg DAILY TEMI Administration Aspirin 81 mg 08/16/24 09:00 08/17/24 08:55 Aspirin 81 Mg Enteric Tablet PO 81 mg QAM TEMI Administration Bupropion HCl 300 mg 08/16/24 09:00 08/17/24 08:54 Bupropion Hcl Xl (24 Hr) 150 Mg Tabcr PO 300 mg DAILY TEMI Administration Dextrose 12.5 gm 08/15/24 15:49 Dextrose 50% 25 Gm/50 Ml Syringe IV PUSH PRN PRN Hypoglycemia Protocol Fluticasone Propionate 1 spray 08/15/24 22:20 Fluticasone Propionate 0.05% Na Spr 16 Gm Btl (*Bkc) NASAL Q12H PRN nasal congestion Furosemide 40 mg 08/17/24 13:10 08/17/24 16:09 Furosemide Inj 40 Mg/4 Ml Vial IV PUSH Not Given BID TEMI Glucagon 1 mg 08/15/24 15:49 Glucagon For Inj 1 Mg Vial IM PRN PRN Hypoglycemia Protocol Glucose 15 gm 08/15/24 15:49 Glucose Oral Gel 15 Gm Of Glucse In 37.5 Gm Tube PO PRN PRN Hypoglycemia Protocol Guaifenesin 600 mg 08/15/24 22:20 08/17/24 08:55 Guaifenesin 12 Hr 600 Mg Tabcr PO 600 mg Q12HR TEMI Administration Hydralazine HCl 50 mg 08/15/24 22:20 08/17/24 08:55 Hydralazine Hcl 50 Mg Tablet PO 50 mg Q12HR TEMI Administration Dextrose 1,000 mls @ 100 mls/hr 08/15/24 15:49 Dextrose 5% 1,000 Ml IVPB PRN PRN Hypoglycemia Protocol Ceftriaxone Sodium 1 gm in 50 mls @ 100 mls/hr 08/16/24 12:00 08/17/24 11:09 Rocephin 1 Gm/Ns 50 Ml IVPB 100 mls/hr Q24H TEMI Administration Azithromycin 500 mg in 250 mls @ 250 mls/hr 08/16/24 12:00 08/17/24 11:08 Zithromax IVPB 250 mls/hr Q24H TEMI Administration Vancomycin HCl 1,500 mg in 500 mls @ 250 mls/hr 08/17/24 11:00 08/17/24 11:08 Vancomycin 1,500 Mg/Ns 500 Ml IVPB 250 mls/hr Q36H TEMI Administration Insulin Aspart 1 - 3 units 08/15/24 21:00 08/16/24 21:13 Insulin Aspart (*Bkc) 100 Units/Ml SUB-Q 2 units HS TEMI Administration Protocol Insulin Aspart 3 - 6 units 08/15/24 17:00 08/17/24 16:02 Insulin Aspart (*Bkc) 100 Units/Ml SUB-Q 4 units TIDWM TEMI Administration Protocol Isosorbide Mononitrate 30 mg 08/16/24 09:00 08/17/24 08:55 Isosorbide Mononitrate 30 Mg Tab.Er.24h PO 30 mg DAILY TEMI Administration Lactobacillus Acidophilus 1 tablet 08/16/24 09:00 08/17/24 08:55 Acidophilus/[place] Chewable Tablet PO 1 tablet DAILY TEMI Administration Loratadine 10 mg 08/16/24 09:00 08/17/24 08:54 Loratadine 10 Mg Tablet PO 10 mg DAILY TEMI Administration Losartan Potassium 25 mg 08/16/24 09:00 08/17/24 08:55 Losartan Potassium 25 Mg Tablet PO 25 mg DAILY TEMI Administration Metoprolol Succinate 25 mg 08/16/24 09:00 08/17/24 08:55 Metoprolol Succinate Ext Rel 25 Mg Tabcr PO 25 mg DAILY TEMI Administration Montelukast Sodium 10 mg 08/16/24 21:00 08/16/24 21:13 Montelukast Sodium 10 Mg Tablet PO 10 mg HS TEMI Administration Mupirocin 1 applic 08/15/24 21:00 08/17/24 08:55 Mupirocin 2% Oint 22 Gm Tube EACH NARE 1 applic Q12HR TEMI Administration Nitroglycerin 0.4 mg 08/16/24 08:22 08/16/24 08:48 Nitroglycerin Sl 0.4 Mg Tablet SUBLINGUAL 0.4 mg Q5MIN PRN Administration Chest Pain Perflutren Lipid Microsphere 0 ml 08/15/24 11:11 Perflutren Lipid Microspheres 1.5 Ml Vial Diluted To 10 Ml Total Volume IV PUSH 08/18/24 11:11 ONCE PRN adequate visualization Protocol Polyethylene Glycol 17 gm 08/15/24 22:20 Polyethylene Glycol 3350 17 Gm Powd.Pack PO DAILY PRN constipation Potassium Chloride 10 meq 08/15/24 22:20 08/15/24 23:20 Potassium Chloride 10 Meq Er Tablet PO 10 meq Q48H TEMI Administration Vit/Calcium/Iron/Folic Ac 1 tab 08/16/24 09:00 08/17/24 08:55 Multivit/Min/Pren/Fol Ac/Iron Tablet PO 1 tab QAM TEMI Administration Rosuvastatin Calcium 5 mg 08/16/24 21:00 08/16/24 21:13 Rosuvastatin 5 Mg Tablet PO 5 mg HS TEMI Administration Senna/Docusate Sodium 1 tab 08/15/24 22:37 Senna/Docusate Sodium Tablet PO DAILY PRN constipation Radiology Results: ITS Impressions Chest CTA 08/15/24 11:11 IMPRESSION: No pulmonary embolus. No thoracic aortic dissection. Right upper lobe infiltrate with patchy bilateral airspace disease, likely inflammatory/congestive rather than infectious. Small bilateral pleural effusions with adjacent atelectasis. Chest X-Ray 08/17/24 10:22 Impression: Moderate to advanced probable pulmonary edema pattern. Correlate for bilateral multifocal pneumonia. Probable minimal pleural effusions. Labs Labs: Laboratory Results - last 24 hr 08/15/24 08/16/24 08/16/24 23:37 19:05 19:55 Hgb Hct APTT Puncture Site ABG pH ABG pCO2 ABG pO2 ABG PO2/FiO2 Ratio ABG HCO3 ABG O2 Saturation ABG O2 Content ABG Base Excess A-a Gradient Oxyhemoglobin Total Hemoglobin O2 Delivery Device O2 Liters/Min FiO2 Creatinine Estim Creat Clear Calc Estimated GFR POC Capillary Glucose 267 H Lactic Acid 1.8 Urine Color Yellow Urine Appearance Cloudy H Urine pH 5.0 Ur Specific [place] 1.011 Urine Protein 2+ H Urine Glucose (UA) Negative Urine Ketones Negative Ur Blood (Man) 2+ H Urine Nitrate Negative Urine Bilirubin Negative Urine Urobilinogen 0.2 Add Ur Microanalysis Reviewed Leukocyte Esterase Rfl Negative Urine RBC >100 H Urine WBC 0-5 Ur Squamous Epith Cells None seen Urine Bacteria None seen Urine Casts 3-5 08/16/24 08/17/24 08/17/24 21:17 04:00 07:34 Hgb 8.9 L Hct 28.5 L APTT 65.9 H 84.7 H Puncture Site ABG pH ABG pCO2 ABG pO2 ABG PO2/FiO2 Ratio ABG HCO3 ABG O2 Saturation ABG O2 Content ABG Base Excess A-a Gradient Oxyhemoglobin Total Hemoglobin O2 Delivery Device O2 Liters/Min FiO2 Creatinine 1.88 H Estim Creat Clear Calc 23 Estimated GFR 26 L POC Capillary Glucose 206 H Lactic Acid Urine Color Urine Appearance Urine pH Ur Specific [place] Urine Protein Urine Glucose (UA) Urine Ketones Ur Blood (Man) Urine Nitrate Urine Bilirubin Urine Urobilinogen Add Ur Microanalysis Leukocyte Esterase Rfl Urine RBC Urine WBC Ur Squamous Epith Cells Urine Bacteria Urine Casts 08/17/24 08/17/24 08/17/24 10:07 11:51 12:07 Hgb Hct APTT 64.2 H Puncture Site Right radial ABG pH 7.581 H* ABG pCO2 22.1 L* ABG pO2 102.6 H ABG PO2/FiO2 Ratio 1.71 ABG HCO3 20.3 L ABG O2 Saturation 98.5 ABG O2 Content 12.4 L ABG Base Excess -0.7 A-a Gradient 300.9 Oxyhemoglobin 97.8 Total Hemoglobin 8.9 L O2 Delivery Device High flow therapy O2 Liters/Min 40.0 FiO2 60 Creatinine Estim Creat Clear Calc Estimated GFR POC Capillary Glucose 265 H Lactic Acid Urine Color Urine Appearance Urine pH Ur Specific [place] Urine Protein Urine Glucose (UA) Urine Ketones Ur Blood (Man) Urine Nitrate Urine Bilirubin Urine Urobilinogen Add Ur Microanalysis Leukocyte Esterase Rfl Urine RBC Urine WBC Ur Squamous Epith Cells Urine Bacteria Urine Casts 08/17/24 15:54 Hgb Hct APTT Puncture Site ABG pH ABG pCO2 ABG pO2 ABG PO2/FiO2 Ratio ABG HCO3 ABG O2 Saturation ABG O2 Content ABG Base Excess A-a Gradient Oxyhemoglobin Total Hemoglobin O2 Delivery Device O2 Liters/Min FiO2 Creatinine Estim Creat Clear Calc Estimated GFR POC Capillary Glucose 266 H Lactic Acid Urine Color Urine Appearance Urine pH Ur Specific [place] Urine Protein Urine Glucose (UA) Urine Ketones Ur Blood (Man) Urine Nitrate Urine Bilirubin Urine Urobilinogen Add Ur Microanalysis Leukocyte Esterase Rfl Urine RBC Urine WBC Ur Squamous Epith Cells Urine Bacteria Urine Casts Quality VTE Prophylaxis VTE prophylaxis: pharmacologic ordered (currently on a heparin drip)
[2024-08-17] MEDS: POTASSIUM CHLORIDE 10 MEQ ER TABLET PO (20:01)
[2024-08-17] MEDS: ROSUVASTATIN 5 MG TABLET PO (20:02)
[2024-08-17] MEDS: MONTELUKAST SODIUM 10 MG TABLET PO (20:02)
[2024-08-17 20:11] LABS: Glucose Point of Care 278 mg/dl (65-105)
[2024-08-17] MEDS: HEPARIN SODIUM 5,000 UNITS/ML VIAL 5000 UNITS SUB-Q (21:37)
--- NOTE | 2024-08-17 23:25 | ECG_ITS ---
Test Date: 2024-08-17 23:35:50 Measurements Intervals [place] Rate: 120 P: 0 MA: 0 QRS: 268 QRSD: 134 T: 31 QT: 329 QTc: 465 Interpretive Statements SINUS TACHYCARDIA RIGHT AXIS DEVIATION RIGHT BUNDLE BRANCH BLOCK BASELINE ARTIFACT- I, II, III, AVR, AVL AVF, V1 ABNORMAL ECG Compared to ECG 08/16/2024 08:40:38 HEART RATE HAS INCREASED Electronically Signed On 08-18-2024 06:01:44 CDT by Davy Rivera D.O.
[2024-08-17 23:58] LABS: Legionella pneumophila Ag Ur NOT DETECTED
[2024-08-18] VITALS (49 sets, daily range): BP systolic 64–147; BP diastolic 46–87; PULSE 70–132; RESP 18–30; TEMP 36.3–39.3; O2SAT 92–100; BMI 31.6
[2024-08-18 00:03] LABS: Alveolar/Arterial O2 Gradient 484.6 mmHg; Base Excess ABG -1.6 mEq/l (+/-2.0); Fractional Inspired Oxygen 81 %; HCO3 ABG 20.2 mEq/l (22.0-26.0); Oxygen Content ABG 13.1 %vol (16.0-22.0); Oxygen Saturation ABG 95.4 % (95.0-100.0); Oxyhemoglobin 94.3 % THb (90.0-100.0); PO2 ABG 66.7 mmHg (80.0-100.0); PO2 FiO2 Ratio Arterial Blood 0.82 %; Total Hemoglobin 9.8 g/dL (12.0-18.0)
[2024-08-18] MEDS: FUROSEMIDE INJ 40 MG/4 ML VIAL IV PUSH (00:04)
[2024-08-18 00:06] LABS: Modified Allen's Test Pass; Site Drawn LEFT RADIAL; pH ABG 7.526 (7.350-7.450)
[2024-08-18 00:07] LABS: Device HIGH FLOW THERAPY
[2024-08-18] MEDS: ACETAMINOPHEN 325 MG TABLET 650 MG PO (00:10)
[2024-08-18 00:15] LABS: Glucose Point of Care 197 mg/dl (65-105)
--- NOTE | 2024-08-18 00:29 | PCRTNOTE ---
Placed Pt on BiPAP but she did not tolerate so it was removed and placed back on AIRVO per Dr. Corado
--- NOTE | 2024-08-18 00:31 | PCRCNOTE ---
ABG was delayed because imaging and EKG.
[2024-08-18] MEDS: ETOMIDATE 20 MG/10 ML AMPUL 30 MG IV PUSH (00:45)
[2024-08-18] MEDS: ROCURONIUM BROMIDE 50 MG/5 ML VIAL IV PUSH (00:50)
[2024-08-18] MEDS: NITROGLYCERIN OINTMENT 1 INCH DOSE TOPICAL (00:54)
[2024-08-18] MEDS: MIDAZOLAM 100MG/NS 100ML(*CRX) 100 MG/100 ML BAG IV CONT (01:00)
[2024-08-18] MEDS: FENTANYL 2,500MCG/NS250ML(*CRX 2,500 MCG/250 ML BAG IV CONT (01:00)
--- NOTE | 2024-08-18 01:11 | PC.NURSE ---
pt brought from IMU for elective intubation
--- NOTE | 2024-08-18 01:12 | ECG_ITS ---
Test Date: 2024-08-18 01:19:18 Measurements Intervals [place] Rate: 129 P: 0 IA: 0 QRS: 255 QRSD: 141 T: 58 QT: 326 QTc: 479 Interpretive Statements SINUS TACHYCARDIA CHANGES TO ATRIAL TACHYCARDIA/FLUTTER WITH RAPID VENTRICULAR RESPONSE MARKED RIGHT AXIS DEVIATION RIGHT BUNDLE BRANCH BLOCK ABNORMAL ECG Compared to ECG 08/17/2024 23:35:50 Sinus tachycardia no longer present Electronically Signed On 08-18-2024 06:14:12 CDT by Davy Rivera D.O.
--- NOTE | 2024-08-18 01:49 | P.PNCROSS_ITS ---
Event Note Event Note Event Note: Nursing staff notified me when I arrived on the floor to evaluate another patie nt that the patient had developed increased tachypnea and increased work of breathing with abdominal respirations. Nursing staff at increase the patient's oxygen percentage on Airvo and flow rate. Patient was also having recurrent fever. Her respiratory rate had initially increased to the low 20s. I gave orders for stat chest x-ray which demonstrated worsening pulmonary edema with pleural effusions. She also received a dose of Lasix 40 mg. Plan was to see how the patient responded to these medications and if no improvement in symptoms dentist trial nitropaste. Within a minute or 2 of receiving Lasix this patient developed worsening hypoxia requiring increased Airvo settings to maximum. I went to evaluate the patient shortly thereafter she was in overt respiratory distress. The nitropaste was placed while I was at bedside. Patient was overtly diaphoretic and had extremely coarse breath sounds Respiratory therapy stated that before they could even place patient on BiPAP her respiratory rate was in the 30s. She was trialed on BiPAP was at bedside with no improvement in her respiratory status. She was placed back on Airvo. I did discuss with the patient what her goals of care would be in although she was confused as to the years she was alert oriented to person and place. She did know the month as well. She stated that she would want me made comfortable. But the patient's power of employment law attorney was contacted to notify them of the patient's change in condition. They stated that if the patient was completely clear in her right mind she would want intubation. Subsequently patient was transferred to the ICU and placed on ventilator support. Given that the patient was persistently febrile and given worsening respiratory status cannot rule out possible underlying pneumonia complicating patient's respiratory status. Given her multiple recent hospitalizations and persistent symptoms will broaden antibiotic coverage to cefepime. The patient was already on Rocephin azithromycin and vancomycin previously. Will continue azithromycin and vancomycin. The patient last had blood cultures obtained on . Will check procalcitonin, lactic acid, CBC and CMP. Even with ventilator support patient is requiring high oxygen requirement with high PEEP. The patient's has been placed on ventilator support with settings of tidal volume 380 peep of 12 rate of 14 and 100% FiO2. Repeat ABG has been ordered for to a.m.. She has been placed on sedation with fentanyl and Versed. Will monitor serial chest x-rays and ABGs per protocol. Will continue nebulizer treatments but will change to Xopenex given tachycardia. Patient been transferred to the ICU and tube balancer has been consulted. Resolution Rep was contacted in case was discussed. EKG obtained at initial change in patient condition and demonstrated ST depression in V2, V4 and V5. Repeat EKG demonstrated right bundle branch block with decrease significance of ST changes. With me seen reading it is AFib but I see P waves and rhythm appears regular. Assessment: 1. Acute worsening hypoxic respiratory failure with severe respiratory alkalosis due to flash pulmonary edema and possible underlying pneumonia management as above 2. Acute on chronic renal failure 3. Coronary artery disease not amendable to intervention 125 minute spent in critical care activities. Due to a high probability of clinically significant, life threatening deterioration, the patient required my highest level of preparedness to intervene emergently and I personally spent this critical care time directly and personally managing the patient. This critical care time included obtaining a history; examining the patient; pulse oximetry; ordering and review of studies; arranging urgent treatment with development of a management plan; evaluation of patient's response to treatment; frequent reassessment; and discussions with other providers. It was exclusive of separately billable procedures and treating other patients and teaching time. Please see Assessment and Plan section and the rest of the note for further information on patient assessment and treatment.
[2024-08-18 02:10] LABS: Alveolar/Arterial O2 Gradient 594.5 mmHg; Base Excess ABG -6.3 mEq/l (+/-2.0); Carboxyhemoglobin 0.6 % THb (0-2.0); Fractional Inspired Oxygen 100 %; HCO3 ABG 19.6 mEq/l (22.0-26.0); Methemoglobin ABG 0.3 %THb (0-1.5); Oxygen Content ABG 14.7 %vol (16.0-22.0); Oxygen Saturation ABG 94.5 % (95.0-100.0); Oxyhemoglobin 92.6 % THb (90.0-100.0); PCO2 ABG 40.2 mmHg (35.0-45.0); PO2 ABG 78.3 mmHg (80.0-100.0); PO2 FiO2 Ratio Arterial Blood 0.78 %; Reduced Hemoglobin 6.5 %THb (0-5.0); Total Hemoglobin 11.2 g/dL (12.0-18.0); pH ABG 7.305 (7.350-7.450)
[2024-08-18 02:11] LABS: Arterial Blood Gas Vent Mode CMV; Arterial Blood Gas Ventilator rate 14 /MIN; Device VENTILATOR; Modified Allen's Test Pass; Site Drawn RIGHT RADIAL
[2024-08-18 02:12] LABS: Arterial Blood Gas PEEP 12 cmH2O; Arterial Blood Gas Tidal Volume 380 ml
--- NOTE | 2024-08-18 02:16 | WPDPROCEDUR ---
Procedures Intubation Intubation Date: 08/18/24 Intubation Time: 00:50 Consent: Family requested intubation. There were risks and benefits. A pre-procedural Time-Out was completed immediately before starting the procedure and confirmed: Patient Identification, Site, Procedure, Patient Position and the Availability of Requisite Equipment: Yes Sedative: etomidate Mg given: 30 Paralytic: rocuronium Mg given: 50 Laryngoscope: fiber optic video scope ET tube size: 7.5 Tube secured depth (cm): 24 Tube secured location: lips Tube placement confirmation: visualized tube passing through cords, equal breath sounds bilaterally, no breath sounds over epigastrium and confirmation by capnometry Patient tolerated procedure: well Intubation complications: hypoxia Additional comments: Despite [id number] in PEEP valve of 15 we were only able to pre oxygen 8 the patient to oxygen saturation of 86 prior to intubation. She did drop to 81% during intubation briefly. Shortly after intubation patient's oxygen saturations had improved and were ranging between 90-94% on PEEP of 12 and 100% FiO2. ET tube initially secured at 25 cm. Placement confirmed. Chest x-ray was reviewed and ET tube was 2.5 cm from the . ET tube was pulled back to 25. OG was in appropriate position on imaging. Radiologic interpretation pending.
[2024-08-18] MEDS: LEVALBUTEROL NEB 1.25 MG/3 ML INHALATION ×2 (02:19→08:44)
[2024-08-18] MEDS: IPRATROPIUM BR 0.02% INH SOLN 0.5 MG/2.5 ML VIAL INHALATION ×4 (02:19→20:26)
[2024-08-18] MEDS: CEFEPIME 2 GM/NS 50 ML 2 GM/50 ML BAG IVPB (02:53)
[2024-08-18] MEDS: VANCOMYCIN 1,250 MG/NS 250 ML 1,250 MG/250 ML BAG 166.67 MG IVPB (03:08)
[2024-08-18] MEDS: VANCOMYCIN 1,000 MG/NS 250 ML 1,000 MG/250 ML BAG 250 MG IVPB (04:30)
[2024-08-18] MEDS: ALBUMIN HUMAN 25% 25 GM/100 ML 100 ML IVPB ×3 (04:45→23:08)
[2024-08-18 05:09] LABS: Basophils Percent Auto 0.3 % (0.2-1.2); Eosinophils Percent Auto 0.1 % (0-4.4); Hematocrit 26.9 % (37.0-47.0); Hemoglobin 8.2 g/dL (12.0-15.0); Immature Granulocyte Absolute 0.09 K/mm3 (0.00-0.031); Immature Granulocyte Percent A 0.9 % (0-0.5); Immature Platelet Fraction Pct 5.5 % (0.9-11.2); Lymphocytes Absolute Auto 0.81 K/mm3 (0.9-3.2); Lymphocytes Percent Auto 8.3 % (18.3-44.2); Mean Corpuscular HGB Conc 30.5 g/dl (32-36); Mean Corpuscular Hemoglobin 25.9 pg (26-34); Mean Corpuscular Volume 84.9 fl (80-100); Mean Platelet Volume 11.5 fl (7.4-10.4); Monocytes Absolute Auto 0.9 K/mm3 (0.1-0.6); Monocytes Percent Auto 9.1 % (2.6-8.5); Neutrophils Absolute Auto 7.9 K/mm3 (1.3-6.7); Neutrophils Percent Auto 81.3 % (45.5-73.1); Platelet Count Result 146 k/mm3 (150-375); Red Blood Count 3.17 M/mm3 (4.2-5.4); Red Cell Distribution Width 17.4 % (11.5-14.5); White Blood Count 9.8 K/mm3 (4.5-10.0)
[2024-08-18 05:19] LABS: Alveolar/Arterial O2 Gradient 468.1 mmHg; Base Excess ABG -4.5 mEq/l (+/-2.0); Carboxyhemoglobin 0.2 % THb (0-2.0); Fractional Inspired Oxygen 90 %; HCO3 ABG 20.1 mEq/l (22.0-26.0); Methemoglobin ABG 0.3 %THb (0-1.5); Oxygen Content ABG 13.9 %vol (16.0-22.0); Oxygen Saturation ABG 98.7 % (95.0-100.0); Oxyhemoglobin 98.2 % THb (90.0-100.0); PCO2 ABG 35.1 mmHg (35.0-45.0); PO2 ABG 137.6 mmHg (80.0-100.0); PO2 FiO2 Ratio Arterial Blood 1.53 %; Reduced Hemoglobin 1.3 %THb (0-5.0); Total Hemoglobin 9.9 g/dL (12.0-18.0); pH ABG 7.376 (7.350-7.450)
[2024-08-18 05:20] LABS: Lactic Acid Reflex 1.6 mmol/L (0.7-2.0)
[2024-08-18 05:26] LABS: Alanine Aminotransferase 37 U/L (6-35); Alkaline Phosphatase 102 U/L (38-126); Anion Gap 15 mmol/L (4-12); Aspartate Amino Transferase 64 U/L (14-36); Bilirubin,Total 0.6 mg/dL (0.2-1.3); Blood Urea Nitrogen 50 mg/dL (7-17); Calcium 7.9 mg/dL (8.4-10.2); Carbon Dioxide 20 mmol/L (22-30); Chloride 104 mmol/L (98-107); Estimated CRCL calculation 18 ml/min; Estimated Glomerular Filt Rate 19; Glucose 349 mg/dL (65-110); Magnesium 2.1 mg/dL (1.6-2.3); Phosphorus 5.9 mg/dL (2.5-4.5); Potassium 4.3 mmol/L (3.4-5.0); Sodium 139 mmol/L (137-145)
[2024-08-18] MEDS: DOPamine 400 MG/D5W 250 ML 400 MG/250 ML BAG 8.33 MG IV CONT (05:45)
[2024-08-18 05:55] LABS: Procalcitonin 7.1 ng/mL
[2024-08-18 06:09] LABS: Arterial Blood Gas PEEP 10 cmH2O; Arterial Blood Gas Tidal Volume 380 ml; Arterial Blood Gas Vent Mode CMV; Arterial Blood Gas Ventilator rate 18 /MIN; Device VENTILATOR; Modified Allen's Test Pass; Site Drawn RIGHT RADIAL
[2024-08-18] MEDS: INSULIN ASPART (*BKC) 100 UNITS/ML SUB-Q ×3 (06:28→23:16)
[2024-08-18] MEDS: HEPARIN SODIUM 5,000 UNITS/ML VIAL 5000 UNITS SUB-Q ×2 (06:28→13:41)
[2024-08-18] MEDS: MUPIROCIN 2% OINT 22 GM TUBE 1 APPLIC EACH NARE ×2 (08:57→21:01)
[2024-08-18] MEDS: MINERAL OIL/WHITE PETROLATUM OINTMENT 1 APPLIC EACH EYE ×2 (08:57→21:07)
[2024-08-18] MEDS: MIDAZOLAM HCL (*CRX) 2 MG/2 ML VIAL IV PUSH (09:38)
[2024-08-18] MEDS: MIDAZOLAM HCL (*CRX) 2 MG/2 ML VIAL 4 MG IV PUSH (10:11)
--- NOTE | 2024-08-18 10:41 | VASCRN ---
Order received for: PICC line After review of the chart and the patient assessment, patient is not a candidate for the following reason(s): the patient has inadequate vessel size to place a PICC line. Both upper extremities assessed and all veins were 2mm or smaller in diameter. Provider notified: Dr. Crawford
[2024-08-18] MEDS: ALBUMIN HUMAN 5% 25 GM/500 ML BTL IV CONT (10:50)
--- NOTE | 2024-08-18 10:59 | P.PNCA_ITS ---
Progress Note: A&P Assessment and Plan (1) Acute respiratory failure with hypoxia: Code(s): J96.01 - Acute respiratory failure with hypoxia Status: Acute (2) Congestive heart failure: Code(s): I50.9 - Heart failure, unspecified Status: Acute Plan 84-year-old with CAD status post PCI, diabetes, and hypertension who initially presented with cough and congestion in setting of fevers Acute worsening hypoxic respiratory failure with severe respiratory alkalosis -Intubated /. Discussed with ICU Physician -- concerning for worsening pneumon ia. Since renal function worsening, holding off on diuresis for now. -Antibiotics per ICU team. Shock: -Concern for septic shock, on pressor support. Non ST-elevation [place] -Known CAD with stents in the OM1, OM2, RPDA. 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 -Likely demand in setting of her recent respiratory infection -Treated with Heparin drip x 48 hours -Continue aspirin 81 mg daily, rosuvastatin 5 mg every evening. Metoprolol succinate 25 mg daily, Imdur 30mg daily have been placed on hold now due to shock. -TTE with normal LVEF without appreciable wall motion abnormalities. -Per review of [facility] notes, her primary Cardiology team had stopped Plavix as she was falling frequently. -At this time, will plan for medical management. Acute on chronic heart failure with preserved LVEF: -CXR with moderate-advanced probable pulmonary edema pattern; correlate for bilateral multifocal pneumonia. -Was started on IV Lasix, however, now with worsening renal function, diuretics have been placed on hold; concern that her respiratory status may be due to worsening pneumonia rather than worsening CHF. Will closely monitor. -Has history of frequent UTI, therefore, will not add SGLT2-inhibitor at this time. Hypertension -Antihypertensives on hold due to pressor requirement. Hyperlipidemia -Continue rosuvastatin 5 mg every evening Anemia -Has significant anemia with Hgb down to 8.9. Management/workup as per primary team. Of note, Hgb dropped from 11.1 to 8.9 while on Heparin drip. Heparin drip now discontinued. CHAYA on CKD -SCr worsening. Diuretics have been placed on hold. Pneumonia: -On antibiotics per Hospitalist. Recommendations and plan discussed with ICU Physician. Subjective Date/time seen: 08/18/24 10:59 Interval history: Reason for visit: Elevated troponins, CHF HPI: 84-year-old with CAD status post PCI, diabetes, and hypertension presented with cough and congestion in setting of fevers. She has been having chest discomfort whenever she coughs. She is unsure when she started to feel unwell with her coughing and sputum production. However prior to the onset of the symptoms, she lives at home with her and typically would be able to ambulate within the confines of her home without any cardiopulmonary difficulties. She denies any syncopal events. Her chest pain does not resolve with sublingual nitroglycerin and worsens with coughing. Date of service 08/17: Overnight, she had worsening shortness of breath with increasing oxygen requirements. Was placed on HFNC, given dose of IV Lasix. On broad spectrum antibiotics. She reports feeling better today. Denies chest pain. Date of service 08/18: Overnight, patient decompensated. Had acute worsening hypoxic respiratory failure with severe respiratory alkalosis. Having recurrent fevers. CXR concerning for worsening pulmonary edema. Given Lasix. No improvement on BIPAP. She ended up being intubated and is now in the ICU. Review of Systems Review of Systems: ROS unobtainable: Yes unobtainable due to endotracheal tube Exam Const: Other: Critically ill patient, intubated/sedated. HENMT: Other: OETT in place Resp: Other: On mechanical ventilation Cardio: Rate: regular rate Rhythm: regular rhythm Neuro: Other: Sedated Objective Data Vital Signs Vital Signs: Vital Signs - 24 hr 08/17/24 11:46 08/17/24 12:00 08/17/24 12:00 Temperature 38.3 C H Pulse Rate 87 65 86 Respiratory Rate 26 H 20 Blood Pressure 120/86 Pulse Oximetry 95 94 Oxygen Delivery Nasal Cannula Oxygen Flow Rate 5 Fraction of Inspired Oxygen 60 08/17/24 12:20 08/17/24 12:29 08/17/24 12:48 Temperature Pulse Rate 72 65 Respiratory Rate 20 20 Blood Pressure Pulse Oximetry 98 92 94 Oxygen Delivery High Flow Therapy with Na Nasal Cannula Nasal Cannula Oxygen Flow Rate 40 5 5 Fraction of Inspired Oxygen 60 08/17/24 14:00 08/17/24 14:17 08/17/24 14:17 Temperature Pulse Rate 92 94 94 Respiratory Rate 20 20 Blood Pressure Pulse Oximetry 86 L Oxygen Delivery Nasal Cannula Oxygen Flow Rate 5 Fraction of Inspired Oxygen 08/17/24 16:00 08/17/24 16:00 08/17/24 16:00 Temperature 39.1 C H Pulse Rate 89 89 89 Respiratory Rate 28 H 28 H Blood Pressure 113/62 Pulse Oximetry 92 92 Oxygen Delivery Nasal Cannula Oxygen Flow Rate 30 Fraction of Inspired Oxygen 60 08/17/24 16:01 08/17/24 17:32 08/17/24 18:00 Temperature 39.1 C H 37.9 C H Pulse Rate 78 Respiratory Rate Blood Pressure Pulse Oximetry Oxygen Delivery Oxygen Flow Rate Fraction of Inspired Oxygen 08/17/24 19:53 08/17/24 20:00 08/17/24 20:00 Temperature 37.2 C Pulse Rate 75 78 Respiratory Rate 20 24 H Blood Pressure 102/56 L Pulse Oximetry 95 95 Oxygen Delivery High Flow Therapy with Na Oxygen Flow Rate 30 Fraction of Inspired Oxygen 53 08/17/24 20:00 08/17/24 20:00 08/17/24 20:13 Temperature Pulse Rate 80 80 Respiratory Rate 24 H Blood Pressure Pulse Oximetry 95 Oxygen Delivery High Flow Therapy with Na Oxygen Flow Rate 30 Fraction of Inspired Oxygen 60 08/17/24 22:00 08/17/24 23:40 08/17/24 23:50 Temperature Pulse Rate 82 Respiratory Rate Blood Pressure Pulse Oximetry 90 88 L Oxygen Delivery High Flow Therapy with Na High Flow Therapy with Na Oxygen Flow Rate 50 50 Fraction of Inspired Oxygen 70 70 08/18/24 00:00 08/18/24 00:00 08/18/24 00:02 Temperature 37.6 C Pulse Rate 131 H 122 H 106 H Respiratory Rate 21 H 23 H Blood Pressure 147/76 H Pulse Oximetry 93 93 Oxygen Delivery Mechanical Ventilation Oxygen Flow Rate Fraction of Inspired Oxygen 100 08/18/24 00:10 08/18/24 00:59 08/18/24 01:00 Temperature 38.2 C H Pulse Rate 116 H 132 H Respiratory Rate 21 H Blood Pressure Pulse Oximetry 92 Oxygen Delivery Mechanical Ventilation Oxygen Flow Rate Fraction of Inspired Oxygen 100 08/18/24 01:00 08/18/24 01:52 08/18/24 02:00 Temperature Pulse Rate 131 H 131 H 129 H Respiratory Rate 21 H Blood Pressure Pulse Oximetry Oxygen Delivery Oxygen Flow Rate Fraction of Inspired Oxygen 08/18/24 02:00 08/18/24 02:00 08/18/24 02:02 Temperature 38.3 C H Pulse Rate 125 H 125 H Respiratory Rate 22 H 22 H Blood Pressure Pulse Oximetry Oxygen Delivery Oxygen Flow Rate Fraction of Inspired Oxygen 08/18/24 02:04 08/18/24 02:16 08/18/24 02:19 Temperature 38.5 C H Pulse Rate 127 H 126 H Respiratory Rate 28 H Blood Pressure Pulse Oximetry 94 Oxygen Delivery Mechanical Ventilation Oxygen Flow Rate Fraction of Inspired Oxygen 100 08/18/24 02:23 08/18/24 02:30 08/18/24 02:48 Temperature Pulse Rate 102 H 103 H 96 Respiratory Rate 24 H 28 H Blood Pressure Pulse Oximetry 94 Oxygen Delivery Mechanical Ventilation Oxygen Flow Rate Fraction of Inspired Oxygen 100 08/18/24 03:02 08/18/24 03:55 08/18/24 04:00 Temperature Pulse Rate 93 84 Respiratory Rate 28 H 24 H Blood Pressure Pulse Oximetry 98 99 Oxygen Delivery Mechanical Ventilation Mechanical Ventilation Oxygen Flow Rate Fraction of Inspired Oxygen 100 90 08/18/24 04:00 08/18/24 04:00 08/18/24 04:00 Temperature 37.1 C Pulse Rate 84 84 Respiratory Rate 24 H Blood Pressure 83/56 L Pulse Oximetry 99 Oxygen Delivery Oxygen Flow Rate Fraction of Inspired Oxygen 90 08/18/24 04:00 08/18/24 04:00 08/18/24 04:15 Temperature Pulse Rate 82 83 Respiratory Rate 24 H 23 H Blood Pressure Pulse Oximetry 98 Oxygen Delivery Mechanical Ventilation Oxygen Flow Rate Fraction of Inspired Oxygen 90 08/18/24 05:00 08/18/24 05:11 08/18/24 05:36 Temperature 37.2 C Pulse Rate 76 76 76 Respiratory Rate 21 H Blood Pressure 74/56 L Pulse Oximetry 98 99 98 Oxygen Delivery Mechanical Ventilation Mechanical Ventilation Oxygen Flow Rate Fraction of Inspired Oxygen 90 80 08/18/24 05:45 08/18/24 06:00 08/18/24 06:00 Temperature Pulse Rate 74 74 74 Respiratory Rate 18 Blood Pressure 75/56 L 64/46 L Pulse Oximetry Oxygen Delivery Oxygen Flow Rate Fraction of Inspired Oxygen 08/18/24 06:00 08/18/24 06:00 08/18/24 06:02 Temperature 37.0 C Pulse Rate 74 83 74 Respiratory Rate 19 18 Blood Pressure 64/56 L Pulse Oximetry 95 Oxygen Delivery Oxygen Flow Rate Fraction of Inspired Oxygen 08/18/24 06:15 08/18/24 08:00 08/18/24 08:00 Temperature 36.7 C Pulse Rate 75 78 78 Respiratory Rate 19 19 Blood Pressure 96/56 L 100/60 100/59 L Pulse Oximetry 96 100 Oxygen Delivery Oxygen Flow Rate Fraction of Inspired Oxygen 08/18/24 08:00 08/18/24 08:00 08/18/24 08:00 Temperature Pulse Rate 78 78 Respiratory Rate 20 20 Blood Pressure Pulse Oximetry 100 Oxygen Delivery Mechanical Ventilation Oxygen Flow Rate Fraction of Inspired Oxygen 80 08/18/24 08:00 08/18/24 08:00 08/18/24 08:44 Temperature Pulse Rate 77 77 Respiratory Rate Blood Pressure Pulse Oximetry 100 Oxygen Delivery Mechanical Ventilation Oxygen Flow Rate Fraction of Inspired Oxygen 80 80 08/18/24 08:49 08/18/24 09:03 08/18/24 09:57 Temperature Pulse Rate 77 80 96 Respiratory Rate 23 H 22 H 30 H Blood Pressure Pulse Oximetry Oxygen Delivery Oxygen Flow Rate Fraction of Inspired Oxygen 08/18/24 10:00 08/18/24 10:00 08/18/24 10:00 Temperature Pulse Rate 98 90 93 Respiratory Rate 30 H 28 H Blood Pressure 115/68 115/68 Pulse Oximetry 100 Oxygen Delivery Oxygen Flow Rate Fraction of Inspired Oxygen 08/18/24 10:00 Temperature Pulse Rate 94 Respiratory Rate Blood Pressure Pulse Oximetry Oxygen Delivery Oxygen Flow Rate Fraction of Inspired Oxygen Intake/Output Intake/Output: Intake & Output 08/15/24 08/16/24 08/17/24 08/18/24 23:59 23:59 23:59 23:59 Intake Total 1810 2570.0 2500.4 707.7 Output Total 700 1550 1025 450 Balance 1110 1020.0 1475.4 257.7 Meds/Results Medications: Active Medications Generic Name Dose Route Start Last Admin Trade Name Freq PRN Reason Stop Dose Admin Dextrose 12.5 gm 08/18/24 05:53 Dextrose 50% 25 Gm/50 Ml Syringe IV PUSH PRN PRN Hypoglycemia Protocol Glucagon 1 mg 08/18/24 05:53 Glucagon For Inj 1 Mg Vial IM PRN PRN Hypoglycemia Protocol Glucose 15 gm 08/18/24 05:53 Glucose Oral Gel 15 Gm Of Glucse In 37.5 Gm Tube PO PRN PRN Hypoglycemia Protocol Heparin Sodium (Porcine) 5,000 units 08/17/24 22:00 08/18/24 06:28 Heparin Sodium 5,000 Units/Ml Vial SUB-Q 5,000 units Q8HR TEMI Administration Azithromycin 500 mg in 250 mls @ 250 mls/hr 08/16/24 12:00 08/17/24 15:00 Zithromax IVPB 08/19/24 12:59 Infused Q24H TEMI Infusion Fentanyl Citrate 2,500 mcg in 250 mls @ 10 mls/hr 08/18/24 00:55 08/18/24 10:00 Fentanyl 2,500 Mcg/Ns 250 Ml IV CONT 100 mcg/hr .Q25H TEMI 10 mls/hr Titration Protocol 100 MCG/HR Midazolam HCl 100 mg in 100 mls @ 4 mls/hr 08/18/24 00:55 08/18/24 09:57 Versed 100 Mg/Ns 100 Ml IV CONT 4 mg/hr .Q25H TEMI 4 mls/hr Titration Protocol 4 MG/HR Cefepime HCl 2 gm in 50 mls @ 100 mls/hr 08/18/24 02:00 08/18/24 03:10 Maxipime 2 Gm/Ns 50 Ml IVPB Infused Q24H TEMI Infusion Albumin Human 100 mls @ 60 mls/hr 08/18/24 04:40 08/18/24 04:45 Albutein IVPB 08/19/24 01:39 60 mls/hr Q6HR TEMI Administration Norepinephrine Bitartrate 8 mg in 250 mls @ 9.375 mls/hr 08/18/24 05:45 Levophed 8 Mg/D5w 250 Ml IV CONT .Q24H TEMI Protocol 5 MCG/MIN Dopamine HCl/Dextrose 400 mg in 250 mls @ 0 mls/hr 08/18/24 05:45 08/18/24 10:00 Dopamine 400 Mg/D5w 250 Ml IV CONT 0 mcg/kg/min .Q0M TEMI 0 mls/hr Titration Protocol Dextrose 1,000 mls @ 100 mls/hr 08/18/24 05:53 Dextrose 5% 1,000 Ml IVPB PRN PRN Hypoglycemia Protocol Albumin Human 25 gm in 500 mls @ 125 mls/hr 08/18/24 09:43 08/18/24 10:50 Albumin Human 5% IV CONT 08/18/24 13:42 125 mls/hr .Q4H ONE Administration Insulin Aspart 4 - 8 units 08/18/24 06:00 08/18/24 06:28 Insulin Aspart (*Bkc) 100 Units/Ml SUB-Q 8 units Q6HR TEMI Administration Protocol Ipratropium [place] 0.5 mg 08/18/24 02:00 08/18/24 08:44 Ipratropium Br 0.02% Inh Soln 0.5 Mg/2.5 Ml Vial INHALATION 0.5 mg Q6HRT TEMI Administration Levalbuterol HCl 1.25 mg 08/18/24 09:36 Levalbuterol Neb 1.25 Mg/3 Ml INHALATION Q6HRT PRN Wheezing Multi-Ingred Cream/Lotion/Oil/Oint 1 applic 08/18/24 09:00 08/18/24 08:57 Mineral Oil/White Petrolatum Ointment EACH EYE 1 applic Q12HR TEMI Administration Mupirocin 1 applic 08/15/24 21:00 08/18/24 08:57 Mupirocin 2% Oint 22 Gm Tube EACH NARE 1 applic Q12HR TEMI Administration Polyethylene Glycol 17 gm 08/15/24 22:20 Polyethylene Glycol 3350 17 Gm Powd.Pack PO DAILY PRN constipation Vancomycin HCl 1 each 08/18/24 07:24 Vancomycin For Acute Kidney Injury IVPB PRN PRN Vancomycin Protocol Radiology Results: ITS Impressions Chest CTA 08/15/24 11:11 IMPRESSION: No pulmonary embolus. No thoracic aortic dissection. Right upper lobe infiltrate with patchy bilateral airspace disease, likely inflammatory/congestive rather than infectious. Small bilateral pleural effusions with adjacent atelectasis. Chest X-Ray 08/18/24 06:02 Impression: Diffuse bilateral pulmonary consolidation. Correlate for pulmonary edema, pneumonia, ARDS. Probable small right pleural effusion. Support tubes, as above. Abdomen X-Ray 08/18/24 06:03 Impression: NG tube in satisfactory position. Labs Labs: Laboratory Results - last 24 hr 08/15/24 08/17/24 08/17/24 16:21 11:51 12:07 WBC RBC Hgb Hct MCV MCH MCHC RDW Plt Count MPV Immature Gran % (Auto) Neut % (Auto) Lymph % (Auto) Pine % (Auto) Eos % (Auto) Baso % (Auto) Lymph # (Auto) Pine # (Auto) Eos # (Auto) Baso # (Auto) Abs Immat Gran (auto) Absolute Neuts (auto) Absolute Nucleated RBC Nucleated RBC % % Immature Plt Fraction Puncture Site Right radial ABG pH 7.581 H* ABG pCO2 22.1 L* ABG pO2 102.6 H ABG PO2/FiO2 Ratio 1.71 ABG HCO3 20.3 L ABG O2 Saturation 98.5 ABG O2 Content 12.4 L ABG Base Excess -0.7 A-a Gradient 300.9 Oxyhemoglobin 97.8 Carboxyhemoglobin Methemoglobin Reduced Hemoglobin Total Hemoglobin 8.9 L O2 Delivery Device High flow therapy O2 Liters/Min 40.0 Minute Volume Vent Rate Vent Mode FiO2 60 Tidal Volume PEEP Peak Inspir Pressure Pressure Support Sodium Potassium Chloride Carbon Dioxide Anion Gap BUN Creatinine Estim Creat Clear Calc Estimated GFR Glucose POC Capillary Glucose 265 H Lactic Acid Calcium Phosphorus Magnesium Total Bilirubin AST ALT Alkaline Phosphatase Troponin I Total Protein Albumin Procalcitonin Ur L.pneumophila Ag Not detected 08/17/24 08/17/24 08/18/24 15:54 20:08 00:00 WBC RBC Hgb Hct MCV MCH MCHC RDW Plt Count MPV Immature Gran % (Auto) Neut % (Auto) Lymph % (Auto) Pine % (Auto) Eos % (Auto) Baso % (Auto) Lymph # (Auto) Pine # (Auto) Eos # (Auto) Baso # (Auto) Abs Immat Gran (auto) Absolute Neuts (auto) Absolute Nucleated RBC Nucleated RBC % % Immature Plt Fraction Puncture Site Left radial ABG pH 7.526 H* ABG pCO2 25.0 L ABG pO2 66.7 L ABG PO2/FiO2 Ratio 0.82 ABG HCO3 20.2 L ABG O2 Saturation 95.4 ABG O2 Content 13.1 L ABG Base Excess -1.6 A-a Gradient 484.6 Oxyhemoglobin 94.3 Carboxyhemoglobin Methemoglobin Reduced Hemoglobin Total Hemoglobin 9.8 L O2 Delivery Device High flow therapy O2 Liters/Min 50.0 Minute Volume Vent Rate Vent Mode FiO2 81 Tidal Volume PEEP Peak Inspir Pressure Pressure Support Sodium Potassium Chloride Carbon Dioxide Anion Gap BUN Creatinine Estim Creat Clear Calc Estimated GFR Glucose POC Capillary Glucose 266 H 278 H Lactic Acid Calcium Phosphorus Magnesium Total Bilirubin AST ALT Alkaline Phosphatase Troponin I Total Protein Albumin Procalcitonin Ur L.pneumophila Ag 08/18/24 08/18/24 08/18/24 00:10 02:00 04:52 WBC RBC Hgb Hct MCV MCH MCHC RDW Plt Count MPV Immature Gran % (Auto) Neut % (Auto) Lymph % (Auto) Pine % (Auto) Eos % (Auto) Baso % (Auto) Lymph # (Auto) Pine # (Auto) Eos # (Auto) Baso # (Auto) Abs Immat Gran (auto) Absolute Neuts (auto) Absolute Nucleated RBC Nucleated RBC % % Immature Plt Fraction Puncture Site Right radial Right radial ABG pH 7.305 L 7.376 ABG pCO2 40.2 35.1 ABG pO2 78.3 L 137.6 H ABG PO2/FiO2 Ratio 0.78 1.53 ABG HCO3 19.6 L 20.1 L ABG O2 Saturation 94.5 L 98.7 ABG O2 Content 14.7 L 13.9 L ABG Base Excess -6.3 -4.5 A-a Gradient 594.5 468.1 Oxyhemoglobin 92.6 98.2 Carboxyhemoglobin 0.6 0.2 Methemoglobin 0.3 0.3 Reduced Hemoglobin 6.5 H 1.3 Total Hemoglobin 11.2 L 9.9 L O2 Delivery Device Ventilator Ventilator O2 Liters/Min Not Reportable Not Reportable Minute Volume Not Reportable Not Reportable Vent Rate 14 18 Vent Mode Cmv Cmv FiO2 100 90 Tidal Volume 380 380 PEEP 12 10 Peak Inspir Pressure Not Reportable Not Reportable Pressure Support Not Reportable Not Reportable Sodium Potassium Chloride Carbon Dioxide Anion Gap BUN Creatinine Estim Creat Clear Calc Estimated GFR Glucose POC Capillary Glucose 197 H Lactic Acid Calcium Phosphorus Magnesium Total Bilirubin AST ALT Alkaline Phosphatase Troponin I Total Protein Albumin Procalcitonin Ur L.pneumophila Ag 08/18/24 05:01 WBC 9.8 RBC 3.17 L Hgb 8.2 L Hct 26.9 L MCV 84.9 MCH 25.9 L MCHC 30.5 L RDW 17.4 H Plt Count 146 L MPV 11.5 H Immature Gran % (Auto) 0.9 H Neut % (Auto) 81.3 H Lymph % (Auto) 8.3 L Pine % (Auto) 9.1 H Eos % (Auto) 0.1 Baso % (Auto) 0.3 Lymph # (Auto) 0.81 L Pine # (Auto) 0.9 H Eos # (Auto) 0.0 Baso # (Auto) 0.0 Abs Immat Gran (auto) 0.09 H Absolute Neuts (auto) 7.9 H Absolute Nucleated RBC 0.000 Nucleated RBC % 0.0 % Immature Plt Fraction 5.5 Puncture Site ABG pH ABG pCO2 ABG pO2 ABG PO2/FiO2 Ratio ABG HCO3 ABG O2 Saturation ABG O2 Content ABG Base Excess A-a Gradient Oxyhemoglobin Carboxyhemoglobin Methemoglobin Reduced Hemoglobin Total Hemoglobin O2 Delivery Device O2 Liters/Min Minute Volume Vent Rate Vent Mode FiO2 Tidal Volume PEEP Peak Inspir Pressure Pressure Support Sodium 139 Potassium 4.3 Chloride 104 Carbon Dioxide 20 L Anion Gap 15 H BUN 50 H D Creatinine 2.49 H Estim Creat Clear Calc 18 Estimated GFR 19 L Glucose 349 H POC Capillary Glucose Lactic Acid 1.6 Calcium 7.9 L Phosphorus 5.9 H Magnesium 2.1 Total Bilirubin 0.6 AST 64 H ALT 37 H Alkaline Phosphatase 102 Troponin I 3.890 H* Total Protein 6.0 L Albumin 3.0 L Procalcitonin 7.1 Ur L.pneumophila Ag
--- NOTE | 2024-08-18 11:05 | PCFNICU ---
ICU Rounding Note: Pt current nutrition is NPO. Nutrition recommendation: Nepro at 40 ml/hr. Last recorded weight is 88.8 kg Bowel Motility: No BM reported. Labs Reviewed: Glu 349, BUN 50, GFR 19, Cr 2.49, Alb 3.0 Meds Noted:Fentanyl, Versed, NovoLog. Skin: Deep Tissue-buttocks, Unstageable-left heel. Additional Notes: Patient current with mechanical vent since 08/17. Spoke with Film Inspector today, regarding nutrition. Plans to start tube feedings today. Recommendations given for Nepro goal rate at 40 ml/hr with Gianluca BID for wound healing. Flush 30 ml q 4 hours. Following daily in ICU rounds. Monitor intake, wt, labs, skin every Friday and Friday.
[2024-08-18 11:26] LABS: Glucose Point of Care 229 mg/dl (65-105)
--- NOTE | 2024-08-18 11:53 | WPDCNINT ---
Assessment and Plan Assessment and plan (1) Acute respiratory failure with hypoxia: Code(s): J96.01 - Acute respiratory failure with hypoxia Status: Acute Assessment and Plan: Acute Respiratory failure secondary to combination of pneumonia and possible congestive heart failure Patient now intubated and on mechanical ventilation. Ventilator settings, ABG and chest reviewed Currently on PEEP of 10 will wean FiO2 as possible For repeat CT chest to further evaluate Patient has elevated procalcitonin and BNP she is positive on intake output balance but her echocardiogram shows normal biventricular size and systolic function Bronchodilators Blood cultures have been sent and pending. I will check sputum culture Urine Legionella antigen negative mycoplasma pneumonia antibody pending and urine pneumococcal antigen pending Hold diuretics due to soft blood pressure and worsening renal function (2) Congestive heart failure: Code(s): I50.9 - Heart failure, unspecified Status: Acute Assessment and Plan: See above (3) Non-ST elevation myocardial infarction (NSTEMI): Code(s): I21.4 - Non-ST elevation (NSTEMI) myocardial infarction Status: Acute Assessment and Plan: History of coronary disease status post PCI in the past now presented with elevated troponin. Cardiology following Currently on aspirin Other medications on hold due to low blood pressure Statin Hold was slightly elevated LFTs. No plan for cardiac catheterization at this time. (4) Coronary artery disease: Code(s): I25.10 - Atherosclerotic heart disease of [place] coronary artery without angina pectoris Status: Acute Assessment and Plan: See above (5) Type 2 diabetes mellitus: Code(s): E11.9 - Type 2 diabetes mellitus without complications Status: Acute Assessment and Plan: Sliding scale insert after CT scan (6) Renal failure: Code(s): N19 - Unspecified kidney failure Status: Acute Assessment and Plan: Patient presented with creatinine of 1.5. Baseline creatinine unknown Creatinine has further increased to 2.49 She has appropriately catheter. As per son patient has had a renal tumor which was being monitored and plan was to start radiation therapy by her urology I will obtain a CT scan of abdomen pelvis to evaluate for any obstruction Hold diuretic Will give albumin bolus Monitor urine output electrolytes and creatinine Consult nephrology (7) Pneumonia: Code(s): J18.9 - Pneumonia, unspecified organism Status: Acute Assessment and Plan: See above (8) Leg edema, right: Code(s): R60.0 - Localized edema Status: Acute Assessment and Plan: Patient has edema on the right side. She had ankle fracture on the right side. I will obtain lower extremity venous Doppler to rule out any DVT (9) Kidney mass: Code(s): N28.89 - Other specified disorders of kidney and ureter Status: Acute Assessment and Plan: Patient's son reports history of kidney mass which is being monitor as it was too big to be removed without total nephrectomy. He states that patient was supposed to get radiation therapy in a month or so before she fractured her ankle. I will obtain CT scan to further evaluate mass and then consult Urology if needed. Plan DVT prophylaxis -Lovenox Stress ulcer prophylaxis - PPI Nutrition -start Tube Feeds Code Status - Full Code I spoke to and updated patient's son at bedside I answered all his questions. Total Critical Care Time - 40 minutes Due to a high probability of clinically significant, life threatening deterioration, the patient required my highest level of preparedness to intervene emergently and I personally spent this critical care time directly and personally managing the patient. This critical care time included obtaining a history; examining the patient; pulse oximetry; ordering and review of studies; arranging urgent treatment with development of a management plan; evaluation of patient's response to treatment; frequent reassessment; and discussions with other providers. It was exclusive of separately billable procedures and treating other patients and teaching time. Please see Assessment and Plan section and the rest of the note for further information on patient assessment and treatment Reject Opener Consult Note Consult date: 08/18/24 Reason for consult: Acute respiratory failure HPI: Chiquis Salas is a 84 year old female with past medical history of coronary artery disease with stents, congestive heart failure, hypertension, type 2 diabetes mellitus, possible chronic kidney disease, suspected kidney cancer which has been under surveillance for approximately 4 years, frequent UTI urinary incontinence now with indwelling suprapubic catheter, and frequent pneumonia who presented to the emergency department via EMS from [facility] for evaluation of cough and congestion on 08/15. This is a post admission [facility] and normally she gets her care through [facility]. She also had recent fracture of right ankle which was being managed conservatively and she was not bearing any weight. She had COVID 2.5 to 3 weeks ago but those symptoms have resolved. Workup in the ER showed SpO2 91% on 2 L nasal cannula placed per EMS. Labs were significant for a WBC count of 9.3, hemoglobin 11.1, BUN 27, creatinine 1.50, glucose 260, lactic acid 1.4, troponin 2.840, proBNP 5770. She tested negative for influenza, RSV, and COVID. Chest CTA was negative for pulmonary embolus and thoracic aortic dissection and showed right upper lobe infiltrate with patchy bilateral airspace disease and small bilateral pleural effusions with adjacent atelectasis. She was started on azithromycin and ceftriaxone for suspected pneumonia and was also started on a heparin drip for non ST-elevation myocardial infarction. She was admitted to the IMU in this setting for further treatment and close monitoring as well as Cardiology consultation. Heparin was discontinued after 48 hours She received several doses of Lasix for congestive heart failure Through the hospital course her respiratory status worsened with worsening hypoxia and worsening creatinine. She she was ultimately on Airvo last night when due to further deterioration she was transferred to ICU and intubated and placed on mechanical ventilation. Chest x-ray showed diffuse bilateral infiltrate At the time of my evaluation patient is intubated sedated with Versed and fentanyl number to provide any further history. History was obtained from chart review and patient's son at bedside Review of Systems Review of Systems: ROS unobtainable: Yes unobtainable due to endotracheal tube, unobtainable due to medical condition and unobtainable due to mental status PMFSH Past Medical History Medical History Recurrent urinary tract infection Fuchs' corneal dystrophy Cancer of kidney suspected kidney cancer being monitored for the last 4 years with recent increase in growth and plans for possible radiation therapy Coronary artery disease patient of Dr. Addy Norwood at [facility] Type 2 diabetes mellitus Congestive heart failure Hypertension Surgical History Surgical History History of appendectomy History of cholecystectomy History of ventral hernia repair with mesh History of arthroplasty of right knee History of suprapubic catheter History of coronary artery stent placement (2018) Social History Social History Social History: Healthcare power of [place] attorney: Bacilio Salas, son. Code status: Full code. Smoking status: Never smoker Alcohol intake: never Substance use: never Spiritual care concerns: No Meds Home Medications and Allergies Home Medications ?Medication ?Instructions ?Recorded ?Confirmed ?Type Lactobacillus acidophilus 100 mg PO DAILY 08/15/24 08/15/24 History (Acidophilus capsule) acetaminophen 325 mg tablet 325 mg PO Q4H PRN pain 08/15/24 08/15/24 History amlodipine 5 mg tablet 5 mg PO DAILY 08/15/24 08/15/24 History arginine-vitamin C-vitamin E oral 9.2 g PO TIDWM 08/15/24 08/15/24 History 4.5 gram-156 mg/9.2 gram powder pkt (Arginaid) aspirin 81 mg capsule 81 mg PO DAILY 08/15/24 08/15/24 History bupropion HCl 300 mg 24 hr tablet, 300 mg PO DAILY 08/15/24 08/15/24 History extended release d-mannose 500 mg capsule (AZO 500 mg PO BID 08/15/24 08/15/24 History D-Mannose) fluticasone propionate 50 1 spray intranasal Q12H PRN nasal 08/15/24 08/15/24 History mcg/actuation nasal congestion spray,suspension furosemide 20 mg tablet 20 mg PO .COMPLEX 08/15/24 08/15/24 History guaifenesin 600 mg tablet, 600 mg PO Q12H 08/15/24 08/15/24 History extended release 12 hr (Mucinex) hydralazine 50 mg tablet 50 mg PO Q12H 08/15/24 08/15/24 History hydrocodone 5 mg-acetaminophen 325 1 tablet PO Q4-6H PRN pain (scale 08/15/24 08/15/24 History mg tablet score 4-6) insulin lispro 100 unit/mL 1 sliding scale dose subcut 08/15/24 08/15/24 History subcutaneous solution (Humalog USEASDIRECTD U-100 Insulin) isosorbide mononitrate 30 mg 30 mg PO DAILY 08/15/24 08/15/24 History tablet,extended release 24 hr krill oil 500 mg capsule 1 mg PO DAILY 08/15/24 08/15/24 History loratadine 10 mg tablet 10 mg PO DAILY 08/15/24 08/15/24 History losartan 25 mg tablet 25 mg PO DAILY 08/15/24 08/15/24 History meclizine 25 mg tablet 25 mg PO QID PRN dizziness 08/15/24 08/15/24 History metoprolol succinate 25 mg 25 mg PO DAILY 08/15/24 08/15/24 History tablet,extended release 24 hr montelukast 10 mg tablet 10 mg PO HS 08/15/24 08/15/24 History multivitamin,jj-vrut-Gj-FA-min 1 tablet PO Q12H 08/15/24 08/15/24 History polyethylene glycol 3350 17 gram 17 g PO DAILY PRN constipation 08/15/24 08/15/24 History oral powder packet (Miralax) potassium chloride 10 mEq 10 meq PO .COMPLEX 08/15/24 08/15/24 History tablet,extended release rosuvastatin 5 mg tablet 5 mg PO HS 08/15/24 08/15/24 History senna-docusate sodium tablet 1 tablet PO DAILY PRN constipation 08/15/24 08/15/24 History Allergies Allergy/AdvReac Type Severity Reaction Status Date / Time adhesive tape Allergy Unknown Verified 08/15/24 08:51 aripiprazole (From Abilify) Allergy Unknown Verified 08/15/24 08:51 carvedilol Allergy Unknown Verified 08/15/24 08:51 latex Allergy Unknown Verified 08/15/24 08:51 [id number] Reductase Allergy Unknown Verified 08/15/24 08:51 Inhibitor Sulfa (Sulfonamide Allergy Unknown Verified 08/15/24 08:51 Antibiotics) sulfasalazine Allergy Hives Verified 08/15/24 08:51 Sulfonylureas Allergy Unknown Verified 08/15/24 08:51 Vital Signs Vital Signs - 24 hr 08/17/24 12:00 08/17/24 12:00 08/17/24 12:20 Temperature Pulse Rate 65 86 Respiratory Rate 20 Blood Pressure Pulse Oximetry 94 98 Oxygen Delivery Nasal Cannula High Flow Therapy with Na Oxygen Flow Rate 5 40 Fraction of Inspired Oxygen 60 60 08/17/24 12:29 08/17/24 12:48 08/17/24 14:00 Temperature Pulse Rate 72 65 92 Respiratory Rate 20 20 Blood Pressure Pulse Oximetry 92 94 Oxygen Delivery Nasal Cannula Nasal Cannula Oxygen Flow Rate 5 5 Fraction of Inspired Oxygen 08/17/24 14:17 08/17/24 14:17 08/17/24 16:00 Temperature 39.1 C H Pulse Rate 94 94 89 Respiratory Rate 20 20 28 H Blood Pressure 113/62 Pulse Oximetry 86 L 92 Oxygen Delivery Nasal Cannula Oxygen Flow Rate 5 Fraction of Inspired Oxygen 08/17/24 16:00 08/17/24 16:00 08/17/24 16:01 Temperature 39.1 C H Pulse Rate 89 89 Respiratory Rate 28 H Blood Pressure Pulse Oximetry 92 Oxygen Delivery Nasal Cannula Oxygen Flow Rate 30 Fraction of Inspired Oxygen 60 08/17/24 17:32 08/17/24 18:00 08/17/24 19:53 Temperature 37.9 C H 37.2 C Pulse Rate 78 75 Respiratory Rate 20 Blood Pressure 102/56 L Pulse Oximetry 95 Oxygen Delivery Oxygen Flow Rate Fraction of Inspired Oxygen 08/17/24 20:00 08/17/24 20:00 08/17/24 20:00 Temperature Pulse Rate 78 Respiratory Rate 24 H Blood Pressure Pulse Oximetry 95 95 Oxygen Delivery High Flow Therapy with Na High Flow Therapy with Na Oxygen Flow Rate 30 30 Fraction of Inspired Oxygen 53 60 08/17/24 20:00 08/17/24 20:13 08/17/24 22:00 Temperature Pulse Rate 80 80 82 Respiratory Rate 24 H Blood Pressure Pulse Oximetry Oxygen Delivery Oxygen Flow Rate Fraction of Inspired Oxygen 08/17/24 23:40 08/17/24 23:50 08/18/24 00:00 Temperature Pulse Rate 131 H Respiratory Rate 21 H Blood Pressure Pulse Oximetry 90 88 L 93 Oxygen Delivery High Flow Therapy with Na High Flow Therapy with Na Mechanical Ventilation Oxygen Flow Rate 50 50 Fraction of Inspired Oxygen 70 70 100 08/18/24 00:00 08/18/24 00:02 08/18/24 00:10 Temperature 37.6 C 38.2 C H Pulse Rate 122 H 106 H Respiratory Rate 23 H Blood Pressure 147/76 H Pulse Oximetry 93 Oxygen Delivery Oxygen Flow Rate Fraction of Inspired Oxygen 08/18/24 00:59 08/18/24 01:00 08/18/24 01:00 Temperature Pulse Rate 116 H 132 H 131 H Respiratory Rate 21 H 21 H Blood Pressure Pulse Oximetry 92 Oxygen Delivery Mechanical Ventilation Oxygen Flow Rate Fraction of Inspired Oxygen 100 08/18/24 01:52 08/18/24 02:00 08/18/24 02:00 Temperature Pulse Rate 131 H 129 H 125 H Respiratory Rate 22 H Blood Pressure Pulse Oximetry Oxygen Delivery Oxygen Flow Rate Fraction of Inspired Oxygen 08/18/24 02:00 08/18/24 02:02 08/18/24 02:04 Temperature 38.3 C H Pulse Rate 125 H 127 H Respiratory Rate 22 H Blood Pressure Pulse Oximetry 94 Oxygen Delivery Mechanical Ventilation Oxygen Flow Rate Fraction of Inspired Oxygen 100 08/18/24 02:16 08/18/24 02:19 08/18/24 02:23 Temperature 38.5 C H Pulse Rate 126 H 102 H Respiratory Rate 28 H Blood Pressure Pulse Oximetry 94 Oxygen Delivery Mechanical Ventilation Oxygen Flow Rate Fraction of Inspired Oxygen 100 08/18/24 02:30 08/18/24 02:48 08/18/24 03:02 Temperature Pulse Rate 103 H 96 93 Respiratory Rate 24 H 28 H 28 H Blood Pressure Pulse Oximetry Oxygen Delivery Oxygen Flow Rate Fraction of Inspired Oxygen 08/18/24 03:55 08/18/24 04:00 08/18/24 04:00 Temperature Pulse Rate 84 84 Respiratory Rate 24 H Blood Pressure Pulse Oximetry 98 99 Oxygen Delivery Mechanical Ventilation Mechanical Ventilation Oxygen Flow Rate Fraction of Inspired Oxygen 100 90 08/18/24 04:00 08/18/24 04:00 08/18/24 04:00 Temperature 37.1 C Pulse Rate 84 82 Respiratory Rate 24 H 24 H Blood Pressure 83/56 L Pulse Oximetry 99 Oxygen Delivery Oxygen Flow Rate Fraction of Inspired Oxygen 90 08/18/24 04:00 08/18/24 04:15 08/18/24 05:00 Temperature 37.2 C Pulse Rate 83 76 Respiratory Rate 23 H 21 H Blood Pressure 74/56 L Pulse Oximetry 98 98 Oxygen Delivery Mechanical Ventilation Oxygen Flow Rate Fraction of Inspired Oxygen 90 08/18/24 05:11 08/18/24 05:36 08/18/24 05:45 Temperature Pulse Rate 76 76 74 Respiratory Rate Blood Pressure 75/56 L Pulse Oximetry 99 98 Oxygen Delivery Mechanical Ventilation Mechanical Ventilation Oxygen Flow Rate Fraction of Inspired Oxygen 90 80 08/18/24 06:00 08/18/24 06:00 08/18/24 06:00 Temperature Pulse Rate 74 74 74 Respiratory Rate 18 Blood Pressure 64/46 L Pulse Oximetry Oxygen Delivery Oxygen Flow Rate Fraction of Inspired Oxygen 08/18/24 06:00 08/18/24 06:02 08/18/24 06:15 Temperature 37.0 C Pulse Rate 83 74 75 Respiratory Rate 19 18 19 Blood Pressure 64/56 L 96/56 L Pulse Oximetry 95 96 Oxygen Delivery Oxygen Flow Rate Fraction of Inspired Oxygen 08/18/24 08:00 08/18/24 08:00 08/18/24 08:00 Temperature 36.7 C Pulse Rate 78 78 78 Respiratory Rate 19 20 Blood Pressure 100/60 100/59 L Pulse Oximetry 100 Oxygen Delivery Oxygen Flow Rate Fraction of Inspired Oxygen 08/18/24 08:00 08/18/24 08:00 08/18/24 08:00 Temperature Pulse Rate 78 77 Respiratory Rate 20 Blood Pressure Pulse Oximetry 100 Oxygen Delivery Mechanical Ventilation Oxygen Flow Rate Fraction of Inspired Oxygen 80 08/18/24 08:00 08/18/24 08:44 08/18/24 08:49 Temperature Pulse Rate 77 77 Respiratory Rate 23 H Blood Pressure Pulse Oximetry 100 Oxygen Delivery Mechanical Ventilation Oxygen Flow Rate Fraction of Inspired Oxygen 80 80 08/18/24 09:03 08/18/24 09:57 08/18/24 10:00 Temperature Pulse Rate 80 96 98 Respiratory Rate 22 H 30 H 30 H Blood Pressure Pulse Oximetry Oxygen Delivery Oxygen Flow Rate Fraction of Inspired Oxygen 08/18/24 10:00 08/18/24 10:00 08/18/24 10:00 Temperature Pulse Rate 90 93 94 Respiratory Rate 28 H Blood Pressure 115/68 115/68 Pulse Oximetry 100 Oxygen Delivery Oxygen Flow Rate Fraction of Inspired Oxygen Results Labs 08/18/24 05:01 08/18/24 05:01 Labs: Short CBC 08/18/24 Range/Units 05:01 WBC 9.8 (4.5-10.0) K/mm3 Hgb 8.2 L (12.0-15.0) g/dL Hct 26.9 L (37.0-47.0) % Plt Count 146 L (150-375) k/mm3 BMP 08/18/24 05:01 Sodium 139 Potassium 4.3 Chloride 104 Carbon Dioxide 20 L BUN 50 H D Creatinine 2.49 H Glucose 349 H Calcium 7.9 L Cardiac Enzymes 08/18/24 Range/Units 05:01 Troponin I 3.890 H* (0.000-0.034) ng/mL Liver Function 08/18/24 Range/Units 05:01 Total Bilirubin 0.6 (0.2-1.3) mg/dL AST 64 H (14-36) U/L ALT 37 H (6-35) U/L Alkaline Phosphatase 102 (38-126) U/L Albumin 3.0 L (3.5-5.1) g/dL Quality VTE Prophylaxis VTE prophylaxis: mechanical ordered and pharmacologic ordered Hospitalist MIPS Advance Care Plan I have confirmed that the patient's Advanced Care Plan is present, code status is documented, or surrogate decision maker is listed in patient medical record.: Yes Medication Reconciliation I have utilized all available resources to obtain, update and review the patients current medications (includes all prescriptions, OTC, herbals, cannabis, and nutritional supplements).: Yes
[2024-08-18] MEDS: AZITHROMYCIN 500 MG/NS 250 ML 500 MG/250 ML BAG 250 MG IVPB (12:34)
--- NOTE | 2024-08-18 12:36 | P.CONNP_ITS ---
Assessment and Plan Assessment and plan (1) Acute kidney injury: Code(s): N17.9 - Acute kidney failure, unspecified Status: Acute Assessment and Plan: * multifactorial etiology: * relative hypotension/hemodynamic instability * infection/early sepsis * IV diuresis/diuretics * contrast exposure (CTA chest on 08/15) * hypoxia * check renal ultrasound, repeat CPK, and urine studies * reasonable urine output at this time * diuretics on hold * optimize hemodynamics * follow trend of repeat labs and UOP (2) Chronic kidney disease, stage 3: Code(s): N18.30 - Chronic kidney disease, stage 3 unspecified Status: Chronic Assessment and Plan: * baseline creatinine runs ~ 1.1 - 1.6mg/dl from early 2022 (from review of [facility] records) * this causes her to fluctuate between CKD stage 3A and stage 3B * presumably secondary to diabetes, hypertension, recurrent UTIs, and age- related change (3) Acute respiratory failure with hypoxia: Code(s): J96.01 - Acute respiratory failure with hypoxia Status: Acute Assessment and Plan: * due to pneumonia and pulmonary edema/CHF * on full ventilator support * further imaging planned (CT of chest) * continue current therapy (bronchodilators, antibiotics...etc) (4) Pneumonia: Code(s): J18.9 - Pneumonia, unspecified organism Status: Acute Assessment and Plan: * suggestive by admission * follow culture data * on antibiotics (5) Congestive heart failure: Code(s): I50.9 - Heart failure, unspecified Status: Acute Assessment and Plan: * imaging suggestive of pulmonary edema * Echo results (from 08/16) noted: * normal biventricular size and systolic function * no significant valvular abnormalities * was receiveing IV diuretics prior to transfer to ICU * this is on hold due to #1 and hypotension * Cardiology following (6) Non-ST elevation myocardial infarction (NSTEMI): Code(s): I21.4 - Non-ST elevation (NSTEMI) myocardial infarction Status: Acute Assessment and Plan: * elevated troponins noted * Cardiolgy folloiwing * known history of coronary disease status post stenting * suspect demand ischemia in setting of her current respiratory failure/pneumonia * s/p heparin drip x 48 hours * continue medical management (7) Right renal mass: Code(s): N28.89 - Other specified disorders of kidney and ureter Status: Acute Assessment and Plan: * suspicious for renal cell carcinoma * following with [facility] Urology * removal would require total right nepherectomy which would be high risk given patient's age * referred to radiation oncology for possible radiation therapy (8) Type 2 diabetes mellitus: Code(s): E11.9 - Type 2 diabetes mellitus without complications Status: Chronic Assessment and Plan: * follow accu-cheks * glycemic control per 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 They appeared to voice understanding of this possibility. I will continue to follow the patient with you while she remains hospitalized and make further recommendations as deemed necessary. Thank you for allowing me to participate in the care of this patient. L History of Present Illness Reason for Consult Consult date: 08/18/24 Reason for consult: acute renal failure (on chronic kidney disease) Chief Complaint Chief complaint: Sepsis/PNA/NSTEMI History of Present Illness Narrative: Most of the information I have obtained is from review of the electronic medical record as well as discussion with the physician/nurses involved in the patient's care as well as her family at bedside as the patient is unable provide any history as she is currently intubated and on mechanical ventilation. The patient is an 84-year-old female with a past medical history as outlined below presented to [facility] Emergency Room via EMS from her nursing facility for further evaluation of cough and congestion. The patient apparently had a recent fracture of her right ankle which is currently being managed conservatively. Furthermore, about 2 weeks ago, she was diagnosed with COVID but those symptoms were apparently improving as well. However, in the last few days, she has been having increasing issues with cough and upper airway congestion that progressively worsened that subsequently led to EMS transferred to the emergency room for further assessment. Workup and evaluation emergency room demonstrated the patient to be satting 91% on 2 L of oxygen that was placed by EMS. Routine blood tests were significant for white blood cell count 9.3, hemoglobin 11.1, BUN of 27, creatinine 1.5, lactic acid 1.4, troponin of 2.84 and a proBNP of 5770. Viral testing for influenza, RSV, and COVID were negative. Subsequent imaging studies including a CTA of the chest demonstrated no pulmonary embolism or thoracic aortic dissection which did show a right upper lobe infiltrate with patchy bilateral airspace disease along with small bilateral pleural effusions and adjacent atelectasis. Given her constellation of symptoms, appropriate cultures were obtained and she was started on IV antibiotics for suspected pneumonia. Given her elevated troponin, heparin drip was initiated due to concerns of a non ST elevation [place]. She was subsequently admitted to the hospital for further evaluation and therapy. Unfortunately, since her admission, overall clinical status has deteriorated. Due to concerns for congestive heart failure, she was receiving multiple doses of IV Lasix in effort to optimize her respiratory status. This has been further complicated by ongoing hypoxia and worsening renal function. Her heparin drip was discontinued after 48 hours. Unfortunately, her respiratory status continued to deteriorate until eventually she was transferred to the ICU and had to be intubated placed on mechanical ventilation due to acute respiratory failure. Renal consultation was requested due to her acute kidney injury/acute renal failure on top of her baseline chronic kidney disease. For review her records from [facility], baseline creatinine runs around 1.1-1.6 mg/dL and is thought to be secondary to her history diabetes, hypertension, vascular disease (CAD plus hyperlipidemia plus CHF) along with frequent urinary tract infections and age- related change. As noted above, her creatinine/renal function was at baseline on admission but has been progressively deteriorating over the course of her hospital stay. More concerning is the fact that in spite of IV diuretic therapy, she still has component of volume overload complicated by her significant pneumonia as evidenced by recent imaging. Currently at the time my evaluation, she is intubated/ sedated and on mechanical ventilation. Review of Systems 2 Review of Systems: As per HPI. [facility] Past Medical History Medical History Recurrent urinary tract infection Fuchs' corneal dystrophy Cancer of kidney suspected kidney cancer being monitored for the last 4 years with recent increase in growth and plans for possible radiation therapy Coronary artery disease patient of Dr. Addy Norwood at [facility] Type 2 diabetes mellitus Congestive heart failure Hypertension Surgical History Surgical History History of appendectomy History of cholecystectomy History of ventral hernia repair with mesh History of arthroplasty of right knee History of suprapubic catheter History of coronary artery stent placement (2018) Social History Social History Social History: Healthcare power of attorney recruiter: Bacilio Salas, son. Code status: Full code. Smoking status: Never smoker Alcohol intake: never Substance use: never Spiritual care concerns: No Meds Home Medications and Allergies Home Medications ?Medication ?Instructions ?Recorded ?Confirmed ?Type Lactobacillus acidophilus 100 mg PO DAILY 08/15/24 08/15/24 History (Acidophilus capsule) acetaminophen 325 mg tablet 325 mg PO Q4H PRN pain 08/15/24 08/15/24 History amlodipine 5 mg tablet 5 mg PO DAILY 08/15/24 08/15/24 History arginine-vitamin C-vitamin E oral 9.2 g PO TIDWM 08/15/24 08/15/24 History 4.5 gram-156 mg/9.2 gram powder pkt (Arginaid) aspirin 81 mg capsule 81 mg PO DAILY 08/15/24 08/15/24 History bupropion HCl 300 mg 24 hr tablet, 300 mg PO DAILY 08/15/24 08/15/24 History extended release d-mannose 500 mg capsule (AZO 500 mg PO BID 08/15/24 08/15/24 History D-Mannose) fluticasone propionate 50 1 spray intranasal Q12H PRN nasal 08/15/24 08/15/24 History mcg/actuation nasal congestion spray,suspension furosemide 20 mg tablet 20 mg PO .COMPLEX 08/15/24 08/15/24 History guaifenesin 600 mg tablet, 600 mg PO Q12H 08/15/24 08/15/24 History extended release 12 hr (Mucinex) hydralazine 50 mg tablet 50 mg PO Q12H 08/15/24 08/15/24 History hydrocodone 5 mg-acetaminophen 325 1 tablet PO Q4-6H PRN pain (scale 08/15/24 08/15/24 History mg tablet score 4-6) insulin lispro 100 unit/mL 1 sliding scale dose subcut 08/15/24 08/15/24 History subcutaneous solution (Humalog USEASDIRECTD U-100 Insulin) isosorbide mononitrate 30 mg 30 mg PO DAILY 08/15/24 08/15/24 History tablet,extended release 24 hr krill oil 500 mg capsule 1 mg PO DAILY 08/15/24 08/15/24 History loratadine 10 mg tablet 10 mg PO DAILY 08/15/24 08/15/24 History losartan 25 mg tablet 25 mg PO DAILY 08/15/24 08/15/24 History meclizine 25 mg tablet 25 mg PO QID PRN dizziness 08/15/24 08/15/24 History metoprolol succinate 25 mg 25 mg PO DAILY 08/15/24 08/15/24 History tablet,extended release 24 hr montelukast 10 mg tablet 10 mg PO HS 08/15/24 08/15/24 History multivitamin,hb-zksv-Xr-FA-min 1 tablet PO Q12H 08/15/24 08/15/24 History polyethylene glycol 3350 17 gram 17 g PO DAILY PRN constipation 08/15/24 08/15/24 History oral powder packet (Miralax) potassium chloride 10 mEq 10 meq PO .COMPLEX 08/15/24 08/15/24 History tablet,extended release rosuvastatin 5 mg tablet 5 mg PO HS 08/15/24 08/15/24 History senna-docusate sodium tablet 1 tablet PO DAILY PRN constipation 08/15/24 08/15/24 History Allergies Allergy/AdvReac Type Severity Reaction Status Date / Time adhesive tape Allergy Unknown Verified 08/15/24 08:51 aripiprazole (From Abiliy) Allergy Unknown Verified 08/15/24 08:51 carvedilol Allergy Unknown Verified 08/15/24 08:51 latex Allergy Unknown Verified 08/15/24 08:51 [id number] Reductase Allergy Unknown Verified 08/15/24 08:51 Inhibitor Sulfa (Sulfonamide Allergy Unknown Verified 08/15/24 08:51 Antibiotics) sulfasalazine Allergy Hives Verified 08/15/24 08:51 Sulfonylureas Allergy Unknown Verified 08/15/24 08:51 Vital Signs Vital Signs Temp Pulse Resp BP Pulse Ox O2 Del Method O2 Flow Rate 08/18/24 12:15 92 100 Mechanical Ventilation 08/18/24 12:00 90 28 H 110/67 08/18/24 12:00 97.4 F L 90 27 H 110/67 100 08/18/24 11:17 86 100 Mechanical Ventilation 08/18/24 10:00 94 08/18/24 10:00 93 28 H 115/68 100 08/18/24 10:00 90 115/68 08/18/24 10:00 98 30 H 08/18/24 09:57 96 30 H 08/18/24 09:03 80 22 H 08/18/24 08:49 77 23 H 08/18/24 08:44 77 100 Mechanical Ventilation 08/18/24 08:00 08/18/24 08:00 77 08/18/24 08:00 100 Mechanical Ventilation 08/18/24 08:00 78 20 08/18/24 08:00 78 20 08/18/24 08:00 78 100/59 L 08/18/24 08:00 98.0 F 78 19 100/60 100 08/18/24 06:15 75 19 96/56 L 96 08/18/24 06:02 74 18 08/18/24 06:00 98.6 F 83 19 64/56 L 95 08/18/24 06:00 74 08/18/24 06:00 74 18 08/18/24 06:00 74 64/46 L 08/18/24 05:45 74 75/56 L 08/18/24 05:36 76 98 Mechanical Ventilation 08/18/24 05:11 76 99 Mechanical Ventilation 08/18/24 05:00 98.9 F 76 21 H 74/56 L 98 08/18/24 04:15 98 Mechanical Ventilation 08/18/24 04:00 83 23 H 08/18/24 04:00 82 24 H 08/18/24 04:00 98.7 F 84 24 H 83/56 L 99 08/18/24 04:00 08/18/24 04:00 84 08/18/24 04:00 84 24 H 99 Mechanical Ventilation 08/18/24 03:55 98 Mechanical Ventilation 08/18/24 03:02 93 28 H 08/18/24 02:48 96 28 H 08/18/24 02:30 103 H 24 H 08/18/24 02:23 102 H 94 Mechanical Ventilation 08/18/24 02:19 126 H 28 H 08/18/24 02:16 101.3 F H 08/18/24 02:04 127 H 94 Mechanical Ventilation 08/18/24 02:02 101 F H 08/18/24 02:00 125 H 22 H 08/18/24 02:00 125 H 22 H 08/18/24 02:00 129 H 08/18/24 01:52 131 H 08/18/24 01:00 131 H 21 H 08/18/24 01:00 132 H 21 H 08/18/24 00:59 116 H 92 Mechanical Ventilation 08/18/24 00:10 100.8 F H 08/18/24 00:02 99.6 F 106 H 23 H 147/76 H 93 08/18/24 00:00 122 H 08/18/24 00:00 131 H 21 H 93 Mechanical Ventilation 08/17/24 23:50 88 L High Flow Therapy with Na 50 08/17/24 23:40 90 High Flow Therapy with Na 50 08/17/24 22:00 82 08/17/24 20:13 80 24 H 08/17/24 20:00 80 08/17/24 20:00 95 High Flow Therapy with Na 30 08/17/24 20:00 78 24 H 08/17/24 20:00 95 High Flow Therapy with Na 30 08/17/24 19:53 99.0 F 75 20 102/56 L 95 08/17/24 18:00 78 Exam 2 Narrative: GENERAL APPEARANCE: elderly female intubated/sedated and on mechanical ventilation HEENT: normocephalic, atraumatic, normal conjunctiva and sclera, nares patient NECK: no lymphadenopathy, thyromegaly, or JVD MOUTH: normal lips, teeth, and gums CARDIOVASCULAR: RRR, normal S1 and S2, no rub RESPIRATORY: coarse breath sounds; decreased at bases ABDOMEN: soft, nontender, nondistended, positive bowel sounds present EXTREMITIES: no evidence of cyanosis, clubbing; 1+ edema NEUROLOGICAL: unable to assess Results Lab Results 08/21/24 05:01 08/21/24 05:01 Lab results: Most recent lab results ABG pH 7.376 (7.350-7.450) 08/18/24 04:52 ABG pCO2 35.1 mmHg (35.0-45.0) 08/18/24 04:52 ABG pO2 137.6 mmHg (80.0-100.0) H 08/18/24 04:52 ABG HCO3 20.1 mEq/l (22.0-26.0) L 08/18/24 04:52 ABG O2 Saturation 98.7 % (95.0-100.0) 08/18/24 04:52 Calcium 7.9 mg/dL (8.4-10.2) L 08/18/24 15:39 Phosphorus 5.9 mg/dL (2.5-4.5) H 08/18/24 05:01 Magnesium 2.1 mg/dL (1.6-2.3) 08/18/24 05:01
[2024-08-18] MEDS: LACTATED RINGERS 1,000 ML 100 ML IV CONT (15:51)
[2024-08-18] MEDS: HEPARIN SOD/D5W 100 UNITS/ML 25,000 UNITS/250 ML BAG 13 UNITS IV CONT (15:52)
[2024-08-18 15:56] LABS: Anion Gap 13 mmol/L (4-12); Blood Urea Nitrogen 56 mg/dL (7-17); Calcium 7.9 mg/dL (8.4-10.2); Carbon Dioxide 25 mmol/L (22-30); Chloride 104 mmol/L (98-107); Estimated CRCL calculation 16 ml/min; Estimated Glomerular Filt Rate 17; Glucose 191 mg/dL (65-110); INR 1.5; Partial Thromboplastin Time 36.2 Seconds (22.3-36.8); Potassium 4.2 mmol/L (3.4-5.0); Prothrombin Time 18.4 Seconds (11.1-14.7); Sodium 142 mmol/L (137-145)
[2024-08-18 16:58] LABS: Mycoplasma IgM Antibody Titer 156 U/mL
[2024-08-18 17:51] LABS: Glucose Point of Care 172 mg/dl (65-105)
[2024-08-18 18:54] LABS: Pneumococcal Antigen Urine NOT DETECTED
[2024-08-18] MEDS: INSULIN GLARGINE (*BKC) 100 UNITS/ML 10 UNITS SUB-Q (20:59)
[2024-08-18] MEDS: ACETAMINOPHEN ELIXIR 325 MG/10.15 ML UDC 650 MG PO (21:57)
[2024-08-18 23:17] LABS: Glucose Point of Care 203 mg/dl (65-105)
[2024-08-18] MEDS: HEPARIN SODIUM 5,000 UNITS/ML VIAL 5500 UNITS IV PUSH (23:23)
[2024-08-19] VITALS (59 sets, daily range): BP systolic 72–126; BP diastolic 50–75; PULSE 70–106; RESP 11–35; TEMP 36.8–39.3; O2SAT 91–100
[2024-08-19] MEDS: FENTANYL 2,500MCG/NS250ML(*CRX 2,500 MCG/250 ML BAG 12.5 MCG IV CONT (00:40)
[2024-08-19] MEDS: CEFEPIME 2 GM/NS 50 ML 2 GM/50 ML BAG IVPB (02:09)
[2024-08-19] MEDS: MIDAZOLAM 100MG/NS 100ML(*CRX) 100 MG/100 ML BAG IV CONT (02:09)
[2024-08-19] MEDS: LEVALBUTEROL NEB 1.25 MG/3 ML INHALATION ×4 (02:33→20:55)
[2024-08-19] MEDS: IPRATROPIUM BR 0.02% INH SOLN 0.5 MG/2.5 ML VIAL INHALATION ×4 (02:33→20:55)
[2024-08-19] MEDS: MIDAZOLAM HCL (*CRX) 2 MG/2 ML VIAL IV PUSH ×3 (03:01→05:16)
[2024-08-19 04:45] LABS: Alveolar/Arterial O2 Gradient 378.3 mmHg; Base Excess ABG -6.9 mEq/l (+/-2.0); Carboxyhemoglobin 0.3 % THb (0-2.0); Fractional Inspired Oxygen 65 %; HCO3 ABG 17.9 mEq/l (22.0-26.0); Methemoglobin ABG 0.3 %THb (0-1.5); PCO2 ABG 33.4 mmHg (35.0-45.0); PO2 FiO2 Ratio Arterial Blood 0.75 %; Reduced Hemoglobin 18.8 %THb (0-5.0); Total Hemoglobin 9.7 g/dL (12.0-18.0); pH ABG 7.348 (7.350-7.450)
[2024-08-19 04:54] LABS: PO2 ABG 48.8 mmHg (80.0-100.0)
[2024-08-19 04:55] LABS: Oxyhemoglobin 80.6 % THb (90.0-100.0)
[2024-08-19 04:56] LABS: Device VENTILATOR; Modified Allen's Test Pass; Site Drawn RIGHT BRACHIAL
[2024-08-19 04:59] LABS: Arterial Blood Gas PEEP 8 cmH2O; Arterial Blood Gas Vent Mode CMV; Arterial Blood Gas Ventilator rate 18 /MIN
[2024-08-19 05:00] LABS: Arterial Blood Gas Tidal Volume 380 ml
[2024-08-19] MEDS: ACETAMINOPHEN ELIXIR 325 MG/10.15 ML UDC 650 MG PO (06:00)
[2024-08-19 06:12] LABS: Glucose Point of Care 193 mg/dl (65-105)
[2024-08-19] MEDS: ALBUMIN HUMAN 25% 25 GM/100 ML 100 ML IVPB (06:50)
[2024-08-19 07:09] LABS: Basophils Percent Auto 0.4 % (0.2-1.2); Eosinophils Absolute Auto 0.1 K/mm3 (0-0.3); Eosinophils Percent Auto 0.6 % (0-4.4); Hemoglobin 7.8 g/dL (12.0-15.0); Immature Granulocyte Absolute 0.15 K/mm3 (0.00-0.031); Immature Granulocyte Percent A 1.7 % (0-0.5); Lymphocytes Absolute Auto 1.28 K/mm3 (0.9-3.2); Lymphocytes Percent Auto 14.3 % (18.3-44.2); Mean Corpuscular Hemoglobin 26.2 pg (26-34); Mean Corpuscular Volume 87.2 fl (80-100); Monocytes Absolute Auto 0.5 K/mm3 (0.1-0.6); Monocytes Percent Auto 5.8 % (2.6-8.5); Neutrophils Absolute Auto 6.9 K/mm3 (1.3-6.7); Neutrophils Percent Auto 77.2 % (45.5-73.1); Platelet Count Result 137 k/mm3 (150-375); Red Blood Count 2.98 M/mm3 (4.2-5.4); Red Cell Distribution Width 18.1 % (11.5-14.5)
[2024-08-19 07:22] LABS: Partial Thromboplastin Time 60.5 Seconds (22.3-36.8)
[2024-08-19 07:29] LABS: Alanine Aminotransferase 159 U/L (6-35); Albumin Level 3.9 g/dL (3.5-5.1); Alkaline Phosphatase 99 U/L (38-126); Anion Gap 20 mmol/L (4-12); Aspartate Amino Transferase 407 U/L (14-36); Bilirubin,Total 0.9 mg/dL (0.2-1.3); Blood Urea Nitrogen 67 mg/dL (7-17); Calcium 8.3 mg/dL (8.4-10.2); Carbon Dioxide 18 mmol/L (22-30); Chloride 103 mmol/L (98-107); Creatine Kinase 238 U/L (30-135); Estimated CRCL calculation 13 ml/min; Estimated Glomerular Filt Rate 12; Glucose 187 mg/dL (65-110); Magnesium 2.2 mg/dL (1.6-2.3); Phosphorus 5.8 mg/dL (2.5-4.5); Potassium 4.4 mmol/L (3.4-5.0); Sodium 141 mmol/L (137-145)
[2024-08-19 07:36] LABS: Vancomycin Random 12.6 ug/mL (10-20)
[2024-08-19] MEDS: VANCOMYCIN 1,250 MG/NS 250 ML 1,250 MG/250 ML BAG 166.67 MG IVPB (08:16)
[2024-08-19] MEDS: PANTOPRAZOLE SODIUM IV 40 MG VIAL IV PUSH (08:16)
[2024-08-19] MEDS: MINERAL OIL/WHITE PETROLATUM OINTMENT 1 APPLIC EACH EYE ×2 (08:17→20:26)
[2024-08-19] MEDS: MUPIROCIN 2% OINT 22 GM TUBE 1 APPLIC EACH NARE ×2 (08:17→20:27)
--- NOTE | 2024-08-19 08:32 | WPDINTPN ---
Progress Note: A&P Assessment and Plan (1) Acute respiratory failure with hypoxia: Code(s): J96.01 - Acute respiratory failure with hypoxia Status: Acute Assessment and Plan: Acute Respiratory failure secondary to combination of pneumonia and possible congestive heart failure Patient now intubated and on mechanical ventilation. Ventilator settings, ABG and chest reviewed Currently on PEEP of 10 will wean FiO2 as possible Repeat CT chest 08/18 MPRESSION: 1. Significant interval progression in an lobar pneumonia along with increasing small bilateral pleural effusions. Patient has elevated procalcitonin and BNP she is positive on intake output balance but her echocardiogram shows normal biventricular size and systolic function Bronchodilators Blood cultures have been sent and pending. Pending sputum culture Urine Legionella antigen, mycoplasma pneumonia antibody and urine pneumococcal antigen negative Hold diuretics due to soft blood pressure and worsening renal function Continue vancomycin cefepime azithromycin (2) Congestive heart failure: Code(s): I50.9 - Heart failure, unspecified Status: Acute Assessment and Plan: See above (3) Non-ST elevation myocardial infarction (NSTEMI): Code(s): I21.4 - Non-ST elevation (NSTEMI) myocardial infarction Status: Acute Assessment and Plan: History of coronary disease status post PCI in the past now presented with elevated troponin. Cardiology following Currently on aspirin Other medications on hold due to low blood pressure Statin Hold was slightly elevated LFTs. No plan for cardiac catheterization at this time. (4) Coronary artery disease: Code(s): I25.10 - Atherosclerotic heart disease of resighini coronary artery without angina pectoris Status: Acute Assessment and Plan: See above (5) Type 2 diabetes mellitus: Code(s): E11.9 - Type 2 diabetes mellitus without complications Status: Chronic Assessment and Plan: Sliding scale insulin Continue tube feeds (6) Renal failure: Code(s): N19 - Unspecified kidney failure Status: Acute Assessment and Plan: Patient presented with creatinine of 1.5. Baseline creatinine unknown She has suprapubic catheter. As per son patient has had a renal tumor which was being monitored and plan was to start radiation therapy by her urology CT scan showed Subtle 2.5 cm mass at the upper pole of the right kidney consistent with provided history of renal tumor. Calcification is at the bilateral kidneys which appear linear and likely atherosclerotic although could not exclude nonobstructing nephrolithiasis. No hydronephrosis in either kidney. Diuretics were held and patient was given albumin bolus Creatinine further increased to 3.55 urine output remains poor Monitor urine output electrolytes and creatinine Nephrology consulted and following patient Patient will likely need hemodialysis with worsening renal function and poor urine output (7) Pneumonia: Code(s): J18.9 - Pneumonia, unspecified organism Status: Acute Assessment and Plan: See above (8) Kidney mass: Code(s): N28.89 - Other specified disorders of kidney and ureter Status: Acute Assessment and Plan: Patient's son reports history of kidney mass which is being monitor as it was too big to be removed without total nephrectomy. He states that patient was supposed to get radiation therapy in a month or so before she fractured her ankle. CT scan shows 2.5 cm renal mass on the right side and no hydronephrosis. No intervention at this time (9) DVT (deep venous thrombosis): Code(s): I82.409 - Acute embolism and thrombosis of unspecified deep veins of unspecified lower extremity Status: Acute Assessment and Plan: Bilateral venous Dopplers obtained due to swelling in the legs. Ultrasound showed Bilateral [id number] deep venous thrombosis in the left and right posterior tibial veins. Findings were discussed with the ICU nurse Carlos Herrera at 2:45 PM. Patient started on heparin infusion Plan DVT prophylaxis -Lovenox Stress ulcer prophylaxis - PPI Nutrition -start Tube Feeds Code Status - Full Code 08/18 I spoke to and updated patient's son and his at bedside I answered all his questions. 08/19 I also met with patient's other son this morning at bedside and updated him with cyst patient's status. I will go back and discuss goals of care with both of them and the other son arrives at bedside later this morning. Total Critical Care Time - 30 minutes Due to a high probability of clinically significant, life threatening deterioration, the patient required my highest level of preparedness to intervene emergently and I personally spent this critical care time directly and personally managing the patient. This critical care time included obtaining a history; examining the patient; pulse oximetry; ordering and review of studies; arranging urgent treatment with development of a management plan; evaluation of patient's response to treatment; frequent reassessment; and discussions with other providers. It was exclusive of separately billable procedures and treating other patients and teaching time. Please see Assessment and Plan section and the rest of the note for further information on patient assessment and treatment Subjective Date/time seen: 08/19/24 Overnight events reviewed. febrile overnight Continues to be on mechanical ventilation 65% FiO2 and 10 of She had to be started on dopamine Continues to be sedated with Versed and friend Tolerating tube feed Poor urine output Review of Systems Review of Systems: ROS unobtainable: Yes unobtainable due to endotracheal tube, unobtainable due to medical condition and unobtainable due to mental status Exam Narrative: General: Pt is sedated, intubated and on mechanical ventilation Lungs/Chest: Trachea central Coarse BS B/L, No crackles or wheezing. Cardiac: RRR. Normal S1 S2. No murmurs Circulation: Feet are cold Abdomen: Decreased bowel sounds. Obese. Soft. NT. ND. Extremities: Bilateral pitting edema : Butt in place Neurologic: Unable to assess due to sedation. Moves all 4 extremities to painful stimuli. PERRL Objective Data Vital Signs Vital Signs: Vital Signs - 24 hr 08/18/24 08:44 08/18/24 08:49 08/18/24 09:03 Temperature Pulse Rate 77 77 80 Respiratory Rate 23 H 22 H Blood Pressure Pulse Oximetry 100 Oxygen Delivery Mechanical Ventilation Fraction of Inspired Oxygen 80 08/18/24 09:57 08/18/24 10:00 08/18/24 10:00 Temperature Pulse Rate 96 98 90 Respiratory Rate 30 H 30 H Blood Pressure 115/68 Pulse Oximetry Oxygen Delivery Fraction of Inspired Oxygen 08/18/24 10:00 08/18/24 10:00 08/18/24 11:17 Temperature Pulse Rate 93 94 86 Respiratory Rate 28 H Blood Pressure 115/68 Pulse Oximetry 100 100 Oxygen Delivery Mechanical Ventilation Fraction of Inspired Oxygen 80 08/18/24 12:00 08/18/24 12:00 08/18/24 12:00 Temperature 36.3 C L Pulse Rate 90 90 Respiratory Rate 27 H 28 H Blood Pressure 110/67 Pulse Oximetry 100 Oxygen Delivery Fraction of Inspired Oxygen 80 08/18/24 12:00 08/18/24 12:00 08/18/24 12:00 Temperature Pulse Rate 90 90 Respiratory Rate 28 H Blood Pressure 110/67 Pulse Oximetry 100 Oxygen Delivery Mechanical Ventilation Fraction of Inspired Oxygen 80 08/18/24 12:00 08/18/24 12:15 08/18/24 12:50 Temperature Pulse Rate 90 92 Respiratory Rate Blood Pressure Pulse Oximetry 100 Oxygen Delivery Mechanical Ventilation Fraction of Inspired Oxygen 80 70 08/18/24 12:50 08/18/24 13:55 08/18/24 13:57 Temperature Pulse Rate 87 70 Respiratory Rate 24 H Blood Pressure Pulse Oximetry 100 100 Oxygen Delivery Mechanical Ventilation Mechanical Ventilation Fraction of Inspired Oxygen 70 70 08/18/24 14:00 08/18/24 14:00 08/18/24 14:00 Temperature Pulse Rate 84 84 84 Respiratory Rate 28 H 28 H Blood Pressure Pulse Oximetry Oxygen Delivery Fraction of Inspired Oxygen 08/18/24 14:00 08/18/24 14:00 08/18/24 16:00 Temperature 36.5 C 37.3 C Pulse Rate 84 87 88 Respiratory Rate 22 H 23 H Blood Pressure 97/62 L 97/62 L 100/61 Pulse Oximetry 100 100 Oxygen Delivery Fraction of Inspired Oxygen 08/18/24 16:00 08/18/24 16:00 08/18/24 16:00 Temperature Pulse Rate 88 88 88 Respiratory Rate 24 H 24 H Blood Pressure 100/61 Pulse Oximetry Oxygen Delivery Fraction of Inspired Oxygen 08/18/24 16:00 08/18/24 16:00 08/18/24 16:00 Temperature Pulse Rate 88 Respiratory Rate Blood Pressure Pulse Oximetry 99 Oxygen Delivery Mechanical Ventilation Fraction of Inspired Oxygen 50 50 08/18/24 17:30 08/18/24 18:00 08/18/24 18:00 Temperature 38.1 C H Pulse Rate 85 89 89 Respiratory Rate 21 H Blood Pressure 103/59 L Pulse Oximetry 100 97 Oxygen Delivery Mechanical Ventilation Fraction of Inspired Oxygen 50 08/18/24 18:00 08/18/24 18:00 08/18/24 18:00 Temperature Pulse Rate 89 89 89 Respiratory Rate 20 20 Blood Pressure 103/59 L Pulse Oximetry Oxygen Delivery Fraction of Inspired Oxygen 08/18/24 20:00 08/18/24 20:00 08/18/24 20:00 Temperature 39.2 C H Pulse Rate 111 H 111 H 111 H Respiratory Rate 23 H 23 H 23 H Blood Pressure 102/66 Pulse Oximetry 94 Oxygen Delivery Fraction of Inspired Oxygen 08/18/24 20:00 08/18/24 20:00 08/18/24 20:00 Temperature Pulse Rate 111 H Respiratory Rate Blood Pressure 102/66 Pulse Oximetry 96 Oxygen Delivery Mechanical Ventilation Fraction of Inspired Oxygen 40 40 08/18/24 20:00 08/18/24 20:26 08/18/24 20:26 Temperature Pulse Rate 98 104 H 104 H Respiratory Rate 21 H Blood Pressure Pulse Oximetry 94 94 Oxygen Delivery Mechanical Ventilation Mechanical Ventilation Fraction of Inspired Oxygen 50 40 08/18/24 20:26 08/18/24 21:00 08/18/24 21:30 Temperature Pulse Rate 104 H 100 101 H Respiratory Rate 21 H 24 H 22 H Blood Pressure Pulse Oximetry Oxygen Delivery Fraction of Inspired Oxygen 08/18/24 21:57 08/18/24 22:00 08/18/24 22:00 Temperature 39.3 C H Pulse Rate 97 97 Respiratory Rate 22 H 22 H Blood Pressure 110/87 Pulse Oximetry 93 Oxygen Delivery Fraction of Inspired Oxygen 08/18/24 22:00 08/18/24 22:00 08/18/24 22:00 Temperature Pulse Rate 97 97 93 Respiratory Rate 22 H Blood Pressure 110/87 Pulse Oximetry Oxygen Delivery Fraction of Inspired Oxygen 08/18/24 23:06 08/19/24 00:00 08/19/24 00:00 Temperature Pulse Rate 92 99 99 Respiratory Rate 21 H Blood Pressure 91/61 L Pulse Oximetry 93 Oxygen Delivery Mechanical Ventilation Fraction of Inspired Oxygen 50 08/19/24 00:00 08/19/24 00:00 08/19/24 00:00 Temperature 38.6 C H Pulse Rate Respiratory Rate Blood Pressure Pulse Oximetry 97 Oxygen Delivery Mechanical Ventilation Fraction of Inspired Oxygen 50 50 08/19/24 00:00 08/19/24 00:00 08/19/24 00:40 Temperature 38.6 C H Pulse Rate 98 98 97 Respiratory Rate 20 19 Blood Pressure 91/61 L Pulse Oximetry 97 Oxygen Delivery Fraction of Inspired Oxygen 08/19/24 02:00 08/19/24 02:00 08/19/24 02:00 Temperature Pulse Rate 92 92 92 Respiratory Rate 22 H 22 H Blood Pressure 79/60 L Pulse Oximetry Oxygen Delivery Fraction of Inspired Oxygen 08/19/24 02:00 08/19/24 02:00 08/19/24 02:09 Temperature 37.8 C H Pulse Rate 92 92 70 Respiratory Rate 22 H 24 H Blood Pressure 72/53 L Pulse Oximetry 98 Oxygen Delivery Fraction of Inspired Oxygen 08/19/24 02:09 08/19/24 02:33 08/19/24 02:33 Temperature Pulse Rate 70 81 81 Respiratory Rate 24 H 29 H Blood Pressure Pulse Oximetry 91 Oxygen Delivery Mechanical Ventilation Fraction of Inspired Oxygen 65 08/19/24 02:45 08/19/24 02:45 08/19/24 03:00 Temperature Pulse Rate 88 88 89 Respiratory Rate 31 H 31 H Blood Pressure 92/50 L Pulse Oximetry Oxygen Delivery Fraction of Inspired Oxygen 08/19/24 03:15 08/19/24 03:30 08/19/24 04:00 Temperature Pulse Rate 91 89 Respiratory Rate Blood Pressure 90/55 L 85/50 L Pulse Oximetry Oxygen Delivery Fraction of Inspired Oxygen 60 08/19/24 04:00 08/19/24 04:00 08/19/24 04:00 Temperature Pulse Rate 101 H 101 H Respiratory Rate 29 H 29 H Blood Pressure Pulse Oximetry 92 Oxygen Delivery Mechanical Ventilation Fraction of Inspired Oxygen 60 08/19/24 04:00 08/19/24 04:00 08/19/24 04:00 Temperature 38.7 C H Pulse Rate 101 H 101 H 101 H Respiratory Rate 29 H Blood Pressure 83/54 L 83/54 L Pulse Oximetry 92 Oxygen Delivery Fraction of Inspired Oxygen 08/19/24 05:30 08/19/24 05:30 08/19/24 05:45 Temperature Pulse Rate 102 H 93 100 Respiratory Rate 35 H 35 H Blood Pressure Pulse Oximetry 92 Oxygen Delivery Mechanical Ventilation Fraction of Inspired Oxygen 65 08/19/24 06:00 08/19/24 06:00 08/19/24 06:00 Temperature Pulse Rate 96 96 96 Respiratory Rate 33 H 33 H Blood Pressure 125/71 Pulse Oximetry Oxygen Delivery Fraction of Inspired Oxygen 08/19/24 06:00 08/19/24 06:00 08/19/24 06:00 Temperature 39.3 C H 39.3 C H Pulse Rate 96 95 Respiratory Rate 33 H Blood Pressure 125/71 Pulse Oximetry 97 Oxygen Delivery Fraction of Inspired Oxygen 08/19/24 06:45 08/19/24 06:45 Temperature Pulse Rate 96 98 Respiratory Rate 27 H Blood Pressure 110/75 Pulse Oximetry Oxygen Delivery Fraction of Inspired Oxygen Intake/Output Intake/Output: Intake & Output 08/16/24 08/17/24 08/18/24 08/19/24 23:59 23:59 23:59 23:59 Intake Total 2570.0 2500.4 2038.5 895.2 Output Total 1550 1025 650 100 Balance 1020.0 1475.4 1388.5 795.2 Meds/Results Medications: Active Medications Generic Name Dose Route Start Last Admin Trade Name Freq PRN Reason Stop Dose Admin Acetaminophen 650 mg 08/18/24 21:48 08/19/24 06:00 Acetaminophen Elixir 325 Mg/10.15 Ml Udc PO 650 mg Q4H PRN Administration Mild Pain (1-3) or Fever Dextrose 12.5 gm 08/18/24 05:53 Dextrose 50% 25 Gm/50 Ml Syringe IV PUSH PRN PRN Hypoglycemia Protocol Glucagon 1 mg 08/18/24 05:53 Glucagon For Inj 1 Mg Vial IM PRN PRN Hypoglycemia Protocol Glucose 15 gm 08/18/24 05:53 Glucose Oral Gel 15 Gm Of Glucse In 37.5 Gm Tube PO PRN PRN Hypoglycemia Protocol Heparin Sodium (Porcine) 5,500 units 08/18/24 15:05 08/18/24 23:23 Heparin Sodium 5,000 Units/Ml Vial IV PUSH 5,500 units PRN PRN Administration aPTT less than 55 seconds Heparin Sodium (Porcine) 3,000 units 08/18/24 15:05 Heparin Sodium 5,000 Units/Ml Vial IV PUSH PRN PRN aPTT 55 - 70 seconds Azithromycin 500 mg in 250 mls @ 250 mls/hr 08/16/24 12:00 08/18/24 13:35 Zithromax IVPB 08/19/24 12:59 Infused Q24H TEMI Infusion Fentanyl Citrate 2,500 mcg in 250 mls @ 15 mls/hr 08/18/24 00:55 08/19/24 06:54 Fentanyl 2,500 Mcg/Ns 250 Ml IV CONT Not Given .[id number] TEMI Protocol 150 MCG/HR Midazolam HCl 100 mg in 100 mls @ 10 mls/hr 08/18/24 00:55 08/19/24 06:53 Versed 100 Mg/Ns 100 Ml IV CONT Not Given .Q10H TEMI Protocol 10 MG/HR Cefepime HCl 2 gm in 50 mls @ 100 mls/hr 08/18/24 02:00 08/19/24 02:39 Maxipime 2 Gm/Ns 50 Ml IVPB Infused Q24H TEMI Infusion Norepinephrine Bitartrate 8 mg in 250 mls @ 9.375 mls/hr 08/18/24 05:45 08/18/24 13:45 Levophed 8 Mg/D5w 250 Ml IV CONT Not Given .Q24H TEMI Protocol 5 MCG/MIN Dopamine HCl/Dextrose 400 mg in 250 mls @ 16.65 mls/hr 08/18/24 05:45 08/19/24 06:54 Dopamine 400 Mg/D5w 250 Ml IV CONT Not Given .Q15H1M TEMI Protocol 5 MCG/KG/MIN Dextrose 1,000 mls @ 100 mls/hr 08/18/24 05:53 Dextrose 5% 1,000 Ml IVPB PRN PRN Hypoglycemia Protocol Heparin Sodium/Dextrose 25,000 units in 250 mls @ 0 mls/hr 08/18/24 15:05 08/19/24 06:30 Heparin Sodium/D5w 100 Units/Ml IV CONT 0 units/hr .Q0M TEMI 0 mls/hr Titration Protocol 0 UNITS/HR Vancomycin HCl 1,250 mg in 250 mls @ 166.667 mls/hr 08/19/24 09:00 08/19/24 08:16 Vancomycin 1,250 Mg/Ns 250 Ml IVPB 08/19/24 10:29 166.67 mls/hr ONCE ONE Administration Insulin Aspart 4 - 8 units 08/18/24 06:00 08/19/24 06:03 Insulin Aspart (*Bkc) 100 Units/Ml SUB-Q Not Given Q6HR TEMI Protocol Insulin Glargine 10 units 08/18/24 21:00 08/18/24 20:59 Insulin Glargine (*Bkc) 100 Units/Ml SUB-Q 10 units HS TEMI Administration Ipratropium [place] 0.5 mg 08/18/24 02:00 08/19/24 02:33 Ipratropium Br 0.02% Inh Soln 0.5 Mg/2.5 Ml Vial INHALATION 0.5 mg Q6HRT TEMI Administration Levalbuterol HCl 1.25 mg 08/19/24 02:00 08/19/24 02:33 Levalbuterol Neb 1.25 Mg/3 Ml INHALATION 1.25 mg Q6HRT TEMI Administration Midazolam HCl 2 mg 08/19/24 02:59 08/19/24 05:16 Midazolam Hcl (*Crx) 2 Mg/2 Ml Vial IV PUSH 2 mg Q1HR PRN Administration Agitation Multi-Ingred Cream/Lotion/Oil/Oint 1 applic 08/18/24 09:00 08/19/24 08:17 Mineral Oil/White Petrolatum Ointment EACH EYE 1 applic Q12HR TEMI Administration Mupirocin 1 applic 08/15/24 21:00 08/19/24 08:17 Mupirocin 2% Oint 22 Gm Tube EACH NARE 1 applic Q12HR TEMI Administration Pantoprazole Sodium 40 mg 08/19/24 09:00 08/19/24 08:16 Pantoprazole Sodium Iv 40 Mg Vial IV PUSH 40 mg QAM TEMI Administration Polyethylene Glycol 17 gm 08/15/24 22:20 Polyethylene Glycol 3350 17 Gm Powd.Pack PO DAILY PRN constipation Vancomycin HCl 1 each 08/18/24 07:24 Vancomycin For Acute Kidney Injury IVPB PRN PRN Vancomycin Protocol Radiology Results: ITS Impressions Chest CTA 08/15/24 11:11 IMPRESSION: No pulmonary embolus. No thoracic aortic dissection. Right upper lobe infiltrate with patchy bilateral airspace disease, likely inflammatory/congestive rather than infectious. Small bilateral pleural effusions with adjacent atelectasis. Abdomen X-Ray 08/18/24 06:03 Impression: NG tube in satisfactory position. Chest/Abdomen/Pelvis CT 08/18/24 12:28 IMPRESSION: 1. Significant interval progression in an lobar pneumonia along with increasing small bilateral pleural effusions. 2. No acute intra-abdominal/pelvic process. 3. Subtle 2.5 cm mass at the upper pole of the right kidney consistent with provided history of renal tumor. 4. Calcification is at the bilateral kidneys which appear linear and likely atherosclerotic although could not exclude nonobstructing nephrolithiasis. No hydronephrosis in either kidney. 5. Unchanged mild likely reactive mediastinal lymphadenopathy. 6. Endotracheal tube, nasogastric tube and suprapubic Butt catheter all in expected positions. Venous Doppler Study 08/18/24 14:42 IMPRESSION: 1. Bilateral [id number] deep venous thrombosis in the left and right posterior tibial veins. Findings were discussed with the ICU nurse Carlos Herrera at 2:45 PM. Chest X-Ray 08/19/24 06:13 Impression: Probable moderate pulmonary edema pattern, improved from prior exam. Small right pleural effusion. Support tubes, as above. Labs Labs: Laboratory Results - last 24 hr 08/15/24 08/18/24 08/18/24 16:21 11:24 15:39 WBC RBC Hgb Hct MCV MCH MCHC RDW Plt Count MPV Immature Gran % (Auto) Neut % (Auto) Lymph % (Auto) [place] % (Auto) Eos % (Auto) Baso % (Auto) Lymph # (Auto) [place] # (Auto) Eos # (Auto) Baso # (Auto) Abs Immat Gran (auto) Absolute Neuts (auto) Absolute Nucleated RBC Nucleated RBC % PT 18.4 H INR 1.5 APTT 36.2 Puncture Site ABG pH ABG pCO2 ABG pO2 ABG PO2/FiO2 Ratio ABG HCO3 ABG O2 Saturation ABG O2 Content ABG Base Excess A-a Gradient Oxyhemoglobin Carboxyhemoglobin Methemoglobin Reduced Hemoglobin Total Hemoglobin O2 Delivery Device O2 Liters/Min Minute Volume Vent Rate Vent Mode FiO2 Tidal Volume PEEP Peak Inspir Pressure Pressure Support Sodium 142 Potassium 4.2 Chloride 104 Carbon Dioxide 25 Anion Gap 13 H BUN 56 H Creatinine 2.72 H Estim Creat Clear Calc 16 Estimated GFR 17 L Glucose 191 H POC Capillary Glucose 229 H Calcium 7.9 L Phosphorus Magnesium Total Bilirubin AST ALT Alkaline Phosphatase Total Creatine Kinase Total Protein Albumin Random Vancomycin Mycoplasma pneumon IgM 156 Urine Pneumococcal Ag Not detected 08/18/24 08/18/24 08/18/24 17:48 22:13 23:14 WBC RBC Hgb Hct MCV MCH MCHC RDW Plt Count MPV Immature Gran % (Auto) Neut % (Auto) Lymph % (Auto) [place] % (Auto) Eos % (Auto) Baso % (Auto) Lymph # (Auto) [place] # (Auto) Eos # (Auto) Baso # (Auto) Abs Immat Gran (auto) Absolute Neuts (auto) Absolute Nucleated RBC Nucleated RBC % PT INR APTT 47.0 H Puncture Site ABG pH ABG pCO2 ABG pO2 ABG PO2/FiO2 Ratio ABG HCO3 ABG O2 Saturation ABG O2 Content ABG Base Excess A-a Gradient Oxyhemoglobin Carboxyhemoglobin Methemoglobin Reduced Hemoglobin Total Hemoglobin O2 Delivery Device O2 Liters/Min Minute Volume Vent Rate Vent Mode FiO2 Tidal Volume PEEP Peak Inspir Pressure Pressure Support Sodium Potassium Chloride Carbon Dioxide Anion Gap BUN Creatinine Estim Creat Clear Calc Estimated GFR Glucose POC Capillary Glucose 172 H 203 H Calcium Phosphorus Magnesium Total Bilirubin AST ALT Alkaline Phosphatase Total Creatine Kinase Total Protein Albumin Random Vancomycin Mycoplasma pneumon IgM Urine Pneumococcal Ag 08/19/24 08/19/24 08/19/24 04:40 06:03 07:00 WBC 9.0 RBC 2.98 L Hgb 7.8 L Hct 26.0 L MCV 87.2 MCH 26.2 MCHC 30.0 L RDW 18.1 H Plt Count 137 L MPV 12.0 H Immature Gran % (Auto) 1.7 H Neut % (Auto) 77.2 H Lymph % (Auto) 14.3 L [place] % (Auto) 5.8 Eos % (Auto) 0.6 Baso % (Auto) 0.4 Lymph # (Auto) 1.28 [place] # (Auto) 0.5 Eos # (Auto) 0.1 Baso # (Auto) 0.0 Abs Immat Gran (auto) 0.15 H Absolute Neuts (auto) 6.9 H Absolute Nucleated RBC 0.000 Nucleated RBC % 0.0 PT INR APTT 60.5 H Puncture Site Right brachial ABG pH 7.348 L ABG pCO2 33.4 L ABG pO2 48.8 L* ABG PO2/FiO2 Ratio 0.75 ABG HCO3 17.9 L ABG O2 Saturation 83.0 L* ABG O2 Content 11.0 L ABG Base Excess -6.9 A-a Gradient 378.3 Oxyhemoglobin 80.6 L* Carboxyhemoglobin 0.3 Methemoglobin 0.3 Reduced Hemoglobin 18.8 H Total Hemoglobin 9.7 L O2 Delivery Device Ventilator O2 Liters/Min Not Reportable Minute Volume Not Reportable Vent Rate 18 Vent Mode Cmv FiO2 65 Tidal Volume 380 PEEP 8 Peak Inspir Pressure Not Reportable Pressure Support Not Reportable Sodium 141 Potassium 4.4 Chloride 103 Carbon Dioxide 18 L Anion Gap 20 H BUN 67 H D Creatinine 3.55 H Estim Creat Clear Calc 13 Estimated GFR 12 L Glucose 187 H POC Capillary Glucose 193 H Calcium 8.3 L Phosphorus 5.8 H Magnesium 2.2 Total Bilirubin 0.9 AST 407 H ALT 159 H Alkaline Phosphatase 99 Total Creatine Kinase 238 H Total Protein 7.0 Albumin 3.9 Random Vancomycin 12.6 Mycoplasma pneumon IgM Urine Pneumococcal Ag Quality VTE Prophylaxis VTE prophylaxis: mechanical ordered and pharmacologic ordered
[2024-08-19 10:19] LABS: Hepatitis B Surface Antigen Negative (Negative)
[2024-08-19] MEDS: DOPamine 400 MG/D5W 250 ML 400 MG/250 ML BAG 24.98 MG IV CONT (10:20)
[2024-08-19 10:37] LABS: Hepatitis B Surface Anti Res Negative
--- NOTE | 2024-08-19 10:58 | PCFNICU ---
ICU Rounding Note: Pt current nutrition is Nepro at 40ml/hr with Gianluca BID. Last recorded weight is 90.4 kg, up from 88.8 kg on admit. Bowel Motility: No BM reported, hypoactive bowel sounds. Labs Reviewed:Glu 349, Cr 2.49, BUN 50, GFR 19, Alb 3.0 Meds Noted:Versed, Fentanyl,Protonix. Skin: Deep Tissue-Buttocks, Unstageable-left heel. Additional Notes: Patient remains on mechanical vent. Tube feedings are being tolerated of Nepro at 40 ml/hr with Protein Modular of Gianluca BID for wound healing. Total Nutrition: 1744 kcal/77 gm protein/640 ml water. Flush 30 ml q 4 hours. Agree with diet orders at this time. Following daily in ICU rounds. Monitor intake, wt, labs, skin every Friday and Friday.
--- NOTE | 2024-08-19 11:13 | P.PNCA_ITS ---
Progress Note: A&P Assessment and Plan (1) Acute respiratory failure with hypoxia: Code(s): J96.01 - Acute respiratory failure with hypoxia Status: Acute (2) Congestive heart failure: Code(s): I50.9 - Heart failure, unspecified Status: Acute Plan 84-year-old with CAD status post PCI, diabetes, and hypertension who initially presented with cough and congestion in setting of fevers Acute worsening hypoxic respiratory failure with severe respiratory alkalosis -Intubated 08/18. CT with significant interval progression in a lobar pneumonia al tian with increasing small bilateral pleural effusions. -Antibiotics per ICU team. -Diuretics stopped as renal function significantly worsened, probably the pneumonia playing a bigger role in respiratory failure than CHF. Shock: -Concern for septic shock, on pressor support. Non ST-elevation [place] -Known CAD with stents in the OM1, OM2, RPDA. Has [employer] IN[employer]ER of the mid-distal LAD; previously failed [employer] PCI in the past. -Likely demand in setting of her recent respiratory infection -Treated with Heparin drip x 48 hours -Continue aspirin 81 mg daily, rosuvastatin 5 mg every evening. Metoprolol succinate 25 mg daily, Imdur 30mg daily have been placed on hold now due to shock. -TTE with normal LVEF without appreciable wall motion abnormalities. -Per review of [facility] notes, her primary Cardiology team had stopped Plavix as she was falling frequently. -At this time, will plan for medical management. Acute on chronic heart failure with preserved LVEF: -Diuretics stopped as renal function significantly worsened, probably the pneumonia playing a bigger role in respiratory failure than CHF. -Has history of frequent UTI, therefore, will not add SGLT2-inhibitor at this time. Hypertension -Antihypertensives on hold due to pressor requirement. Hyperlipidemia -Continue rosuvastatin 5 mg every evening Anemia -Has significant anemia. Management/workup as per primary team. CHAYA on CKD -SCr worsening. Diuretics have been placed on hold. Dialysis starting today. Pneumonia: -On antibiotics per Hospitalist. Bilateral below the knee DVT in the left and right posterior tibial veins. -Found on venous Doppler 08/18. -On Heparin drip Recommendations and plan discussed with ICU Physician. Subjective Date/time seen: 08/19/24 11:13 Interval history: Reason for visit: Elevated troponins, CHF HPI: 84-year-old with CAD status post PCI, diabetes, and hypertension presented with cough and congestion in setting of fevers. She has been having chest discomfort whenever she coughs. She is unsure when she started to feel unwell with her coughing and sputum production. However prior to the onset of the symptoms, she lives at home with her and typically would be able to ambulate within the confines of her home without any cardiopulmonary difficulties. She denies any syncopal events. Her chest pain does not resolve with sublingual nitroglycerin and worsens with coughing. Date of service 08/17: Overnight, she had worsening shortness of breath with incre asing oxygen requirements. Was placed on HFNC, given dose of IV Lasix. On broad spectrum antibiotics. She reports feeling better today. Denies chest pain. Date of service 08/18: Overnight, patient decompensated. Had acute worsening hypoxic respiratory failure with severe respiratory alkalosis. Having recurrent fevers. CXR concerning for worsening pulmonary edema. Given Lasix. No improvement on BIPAP. She ended up being intubated and is now in the ICU. Date of service 08/19: Remains intubated/sedated. Renal function worsening, starting dialysis today. Review of Systems Review of Systems: ROS unobtainable: Yes unobtainable due to endotracheal tube Exam Const: Other: Critically ill patient, intubated/sedated. HENMT: Other: OETT in place Resp: Other: On mechanical ventilation Cardio: Rate: regular rate Rhythm: regular rhythm Neuro: Other: Sedated Objective Data Vital Signs Vital Signs: Vital Signs - 24 hr 08/18/24 11:17 08/18/24 12:00 08/18/24 12:00 Temperature 36.3 C L Pulse Rate 86 90 Respiratory Rate 27 H Blood Pressure 110/67 Pulse Oximetry 100 100 Oxygen Delivery Mechanical Ventilation Fraction of Inspired Oxygen 80 80 08/18/24 12:00 08/18/24 12:00 08/18/24 12:00 Temperature Pulse Rate 90 90 90 Respiratory Rate 28 H 28 H Blood Pressure 110/67 Pulse Oximetry Oxygen Delivery Fraction of Inspired Oxygen 08/18/24 12:00 08/18/24 12:00 08/18/24 12:15 Temperature Pulse Rate 90 92 Respiratory Rate Blood Pressure Pulse Oximetry 100 100 Oxygen Delivery Mechanical Ventilation Mechanical Ventilation Fraction of Inspired Oxygen 80 80 08/18/24 12:50 08/18/24 12:50 08/18/24 13:55 Temperature Pulse Rate 87 Respiratory Rate Blood Pressure Pulse Oximetry 100 100 Oxygen Delivery Mechanical Ventilation Mechanical Ventilation Fraction of Inspired Oxygen 70 70 70 08/18/24 13:57 08/18/24 14:00 08/18/24 14:00 Temperature Pulse Rate 70 84 84 Respiratory Rate 24 H 28 H Blood Pressure Pulse Oximetry Oxygen Delivery Fraction of Inspired Oxygen 08/18/24 14:00 08/18/24 14:00 08/18/24 14:00 Temperature 36.5 C Pulse Rate 84 84 87 Respiratory Rate 28 H 22 H Blood Pressure 97/62 L 97/62 L Pulse Oximetry 100 Oxygen Delivery Fraction of Inspired Oxygen 08/18/24 16:00 08/18/24 16:00 08/18/24 16:00 Temperature 37.3 C Pulse Rate 88 88 88 Respiratory Rate 23 H 24 H 24 H Blood Pressure 100/61 Pulse Oximetry 100 Oxygen Delivery Fraction of Inspired Oxygen 08/18/24 16:00 08/18/24 16:00 08/18/24 16:00 Temperature Pulse Rate 88 Respiratory Rate Blood Pressure 100/61 Pulse Oximetry 99 Oxygen Delivery Mechanical Ventilation Fraction of Inspired Oxygen 50 50 08/18/24 16:00 08/18/24 17:30 08/18/24 18:00 Temperature 38.1 C H Pulse Rate 88 85 89 Respiratory Rate 21 H Blood Pressure 103/59 L Pulse Oximetry 100 97 Oxygen Delivery Mechanical Ventilation Fraction of Inspired Oxygen 50 08/18/24 18:00 08/18/24 18:00 08/18/24 18:00 Temperature Pulse Rate 89 89 89 Respiratory Rate 20 20 Blood Pressure Pulse Oximetry Oxygen Delivery Fraction of Inspired Oxygen 08/18/24 18:00 08/18/24 20:00 08/18/24 20:00 Temperature 39.2 C H Pulse Rate 89 111 H 111 H Respiratory Rate 23 H 23 H Blood Pressure 103/59 L 102/66 Pulse Oximetry 94 Oxygen Delivery Fraction of Inspired Oxygen 08/18/24 20:00 08/18/24 20:00 08/18/24 20:00 Temperature Pulse Rate 111 H 111 H Respiratory Rate 23 H Blood Pressure 102/66 Pulse Oximetry Oxygen Delivery Fraction of Inspired Oxygen 40 08/18/24 20:00 08/18/24 20:00 08/18/24 20:26 Temperature Pulse Rate 98 104 H Respiratory Rate Blood Pressure Pulse Oximetry 96 94 Oxygen Delivery Mechanical Ventilation Mechanical Ventilation Fraction of Inspired Oxygen 40 50 08/18/24 20:26 08/18/24 20:26 08/18/24 21:00 Temperature Pulse Rate 104 H 104 H 100 Respiratory Rate 21 H 21 H 24 H Blood Pressure Pulse Oximetry 94 Oxygen Delivery Mechanical Ventilation Fraction of Inspired Oxygen 40 08/18/24 21:30 08/18/24 21:57 08/18/24 22:00 Temperature 39.3 C H Pulse Rate 101 H 97 Respiratory Rate 22 H 22 H Blood Pressure 110/87 Pulse Oximetry 93 Oxygen Delivery Fraction of Inspired Oxygen 08/18/24 22:00 08/18/24 22:00 08/18/24 22:00 Temperature Pulse Rate 97 97 97 Respiratory Rate 22 H 22 H Blood Pressure 110/87 Pulse Oximetry Oxygen Delivery Fraction of Inspired Oxygen 08/18/24 22:00 08/18/24 23:06 08/19/24 00:00 Temperature Pulse Rate 93 92 99 Respiratory Rate 21 H Blood Pressure Pulse Oximetry 93 Oxygen Delivery Mechanical Ventilation Fraction of Inspired Oxygen 50 08/19/24 00:00 08/19/24 00:00 08/19/24 00:00 Temperature 38.6 C H Pulse Rate 99 Respiratory Rate Blood Pressure 91/61 L Pulse Oximetry Oxygen Delivery Fraction of Inspired Oxygen 50 08/19/24 00:00 08/19/24 00:00 08/19/24 00:00 Temperature 38.6 C H Pulse Rate 98 98 Respiratory Rate 20 Blood Pressure 91/61 L Pulse Oximetry 97 97 Oxygen Delivery Mechanical Ventilation Fraction of Inspired Oxygen 50 08/19/24 00:40 08/19/24 02:00 08/19/24 02:00 Temperature Pulse Rate 97 92 92 Respiratory Rate 19 22 H Blood Pressure 79/60 L Pulse Oximetry Oxygen Delivery Fraction of Inspired Oxygen 08/19/24 02:00 08/19/24 02:00 08/19/24 02:00 Temperature 37.8 C H Pulse Rate 92 92 92 Respiratory Rate 22 H 22 H Blood Pressure 72/53 L Pulse Oximetry 98 Oxygen Delivery Fraction of Inspired Oxygen 08/19/24 02:09 08/19/24 02:09 08/19/24 02:33 Temperature Pulse Rate 70 70 81 Respiratory Rate 24 H 24 H Blood Pressure Pulse Oximetry 91 Oxygen Delivery Mechanical Ventilation Fraction of Inspired Oxygen 65 08/19/24 02:33 08/19/24 02:45 08/19/24 02:45 Temperature Pulse Rate 81 88 88 Respiratory Rate 29 H 31 H 31 H Blood Pressure Pulse Oximetry Oxygen Delivery Fraction of Inspired Oxygen 08/19/24 03:00 08/19/24 03:15 08/19/24 03:30 Temperature Pulse Rate 89 91 89 Respiratory Rate Blood Pressure 92/50 L 90/55 L 85/50 L Pulse Oximetry Oxygen Delivery Fraction of Inspired Oxygen 08/19/24 04:00 08/19/24 04:00 08/19/24 04:00 Temperature Pulse Rate 101 H Respiratory Rate 29 H Blood Pressure Pulse Oximetry 92 Oxygen Delivery Mechanical Ventilation Fraction of Inspired Oxygen 60 60 08/19/24 04:00 08/19/24 04:00 08/19/24 04:00 Temperature 38.7 C H Pulse Rate 101 H 101 H 101 H Respiratory Rate 29 H 29 H Blood Pressure 83/54 L 83/54 L Pulse Oximetry 92 Oxygen Delivery Fraction of Inspired Oxygen 08/19/24 04:00 08/19/24 05:30 08/19/24 05:30 Temperature Pulse Rate 101 H 102 H 93 Respiratory Rate 35 H Blood Pressure Pulse Oximetry 92 Oxygen Delivery Mechanical Ventilation Fraction of Inspired Oxygen 65 08/19/24 05:45 08/19/24 06:00 08/19/24 06:00 Temperature Pulse Rate 100 96 96 Respiratory Rate 35 H 33 H 33 H Blood Pressure Pulse Oximetry Oxygen Delivery Fraction of Inspired Oxygen 08/19/24 06:00 08/19/24 06:00 08/19/24 06:00 Temperature 39.3 C H 39.3 C H Pulse Rate 96 96 Respiratory Rate 33 H Blood Pressure 125/71 125/71 Pulse Oximetry 97 Oxygen Delivery Fraction of Inspired Oxygen 08/19/24 06:00 08/19/24 06:45 08/19/24 06:45 Temperature Pulse Rate 95 96 98 Respiratory Rate 27 H Blood Pressure 110/75 Pulse Oximetry Oxygen Delivery Fraction of Inspired Oxygen 08/19/24 08:00 08/19/24 08:00 08/19/24 08:00 Temperature 38.7 C H Pulse Rate 90 97 97 Respiratory Rate 24 H 22 H Blood Pressure 110/75 109/60 Pulse Oximetry 97 Oxygen Delivery Fraction of Inspired Oxygen 08/19/24 08:00 08/19/24 08:00 08/19/24 08:00 Temperature Pulse Rate 97 Respiratory Rate 22 H Blood Pressure Pulse Oximetry Oxygen Delivery Mechanical Ventilation Fraction of Inspired Oxygen 65 65 08/19/24 08:00 08/19/24 08:54 08/19/24 09:08 Temperature Pulse Rate 90 85 89 Respiratory Rate 22 H Blood Pressure Pulse Oximetry 97 Oxygen Delivery Mechanical Ventilation Fraction of Inspired Oxygen 65 08/19/24 10:00 08/19/24 10:00 08/19/24 10:00 Temperature Pulse Rate 87 87 87 Respiratory Rate 20 20 Blood Pressure Pulse Oximetry Oxygen Delivery Fraction of Inspired Oxygen 08/19/24 10:00 08/19/24 10:05 08/19/24 10:20 Temperature 38.6 C H Pulse Rate 87 86 93 Respiratory Rate 20 Blood Pressure 80/54 L 80/54 L 95/64 L Pulse Oximetry 97 Oxygen Delivery Fraction of Inspired Oxygen 08/19/24 10:20 08/19/24 10:21 Temperature Pulse Rate 93 93 Respiratory Rate 21 H Blood Pressure 95/64 L Pulse Oximetry Oxygen Delivery Fraction of Inspired Oxygen Intake/Output Intake/Output: Intake & Output 08/16/24 08/17/24 08/18/24 08/19/24 23:59 23:59 23:59 23:59 Intake Total 2570.0 2500.4 2038.5 1052.9 Output Total 1550 1025 650 100 Balance 1020.0 1475.4 1388.5 952.9 Meds/Results Medications: Active Medications Generic Name Dose Route Start Last Admin Trade Name Freq PRN Reason Stop Dose Admin Acetaminophen 650 mg 08/18/24 21:48 08/19/24 06:00 Acetaminophen Elixir 325 Mg/10.15 Ml Udc PO 650 mg Q4H PRN Administration Mild Pain (1-3) or Fever Dextrose 12.5 gm 08/18/24 05:53 Dextrose 50% 25 Gm/50 Ml Syringe IV PUSH PRN PRN Hypoglycemia Protocol Glucagon 1 mg 08/18/24 05:53 Glucagon For Inj 1 Mg Vial IM PRN PRN Hypoglycemia Protocol Glucose 15 gm 08/18/24 05:53 Glucose Oral Gel 15 Gm Of Glucse In 37.5 Gm Tube PO PRN PRN Hypoglycemia Protocol Heparin Sodium (Porcine) 5,500 units 08/18/24 15:05 08/18/24 23:23 Heparin Sodium 5,000 Units/Ml Vial IV PUSH 5,500 units PRN PRN Administration aPTT less than 55 seconds Heparin Sodium (Porcine) 3,000 units 08/18/24 15:05 Heparin Sodium 5,000 Units/Ml Vial IV PUSH PRN PRN aPTT 55 - 70 seconds Azithromycin 500 mg in 250 mls @ 250 mls/hr 08/16/24 12:00 08/18/24 13:35 Zithromax IVPB 08/19/24 12:59 Infused Q24H TEMI Infusion Fentanyl Citrate 2,500 mcg in 250 mls @ 15 mls/hr 08/18/24 00:55 08/19/24 10:00 Fentanyl 2,500 Mcg/Ns 250 Ml IV CONT 150 mcg/hr .[id number] TEMI 15 mls/hr Titration Protocol 150 MCG/HR Midazolam HCl 100 mg in 100 mls @ 9 mls/hr 08/18/24 00:55 08/19/24 10:21 Versed 100 Mg/Ns 100 Ml IV CONT 9 mg/hr .Q11H7M TEMI 9 mls/hr Titration Protocol 9 MG/HR Cefepime HCl 2 gm in 50 mls @ 100 mls/hr 08/18/24 02:00 08/19/24 02:39 Maxipime 2 Gm/Ns 50 Ml IVPB Infused Q24H TEMI Infusion Norepinephrine Bitartrate 8 mg in 250 mls @ 9.375 mls/hr 08/18/24 05:45 08/18/24 13:45 Levophed 8 Mg/D5w 250 Ml IV CONT Not Given .Q24H TEMI Protocol 5 MCG/MIN Dopamine HCl/Dextrose 400 mg in 250 mls @ 24.975 mls/hr 08/18/24 05:45 08/19/24 10:20 Dopamine 400 Mg/D5w 250 Ml IV CONT 7.5 mcg/kg/min .Q10H1M TEMI 24.98 mls/hr Administration Protocol 7.5 MCG/KG/MIN Dextrose 1,000 mls @ 100 mls/hr 08/18/24 05:53 Dextrose 5% 1,000 Ml IVPB PRN PRN Hypoglycemia Protocol Heparin Sodium/Dextrose 25,000 units in 250 mls @ 0 mls/hr 08/18/24 15:05 08/19/24 06:30 Heparin Sodium/D5w 100 Units/Ml IV CONT 0 units/hr .Q0M TEMI 0 mls/hr Titration Protocol 0 UNITS/HR Insulin Aspart 4 - 8 units 08/18/24 06:00 08/19/24 06:03 Insulin Aspart (*Bkc) 100 Units/Ml SUB-Q Not Given Q6HR [facility] Protocol Insulin Glargine 10 units 08/18/24 21:00 08/18/24 20:59 Insulin Glargine (*Bkc) 100 Units/Ml SUB-Q 10 units HS TEMI Administration Ipratropium [place] 0.5 mg 08/18/24 02:00 08/19/24 08:53 Ipratropium Br 0.02% Inh Soln 0.5 Mg/2.5 Ml Vial INHALATION 0.5 mg Q6HRT TEMI Administration Levalbuterol HCl 1.25 mg 08/19/24 02:00 08/19/24 08:54 Levalbuterol Neb 1.25 Mg/3 Ml INHALATION 1.25 mg Q6HRT TEMI Administration Midazolam HCl 2 mg 08/19/24 02:59 08/19/24 05:16 Midazolam Hcl (*Crx) 2 Mg/2 Ml Vial IV PUSH 2 mg Q1HR PRN Administration Agitation Midazolam HCl 4 mg 08/19/24 11:11 Midazolam Hcl (*Crx) 2 Mg/2 Ml Vial IV PUSH 08/19/24 11:12 ONCE ONE Multi-Ingred Cream/Lotion/Oil/Oint 1 applic 08/18/24 09:00 08/19/24 08:17 Mineral Oil/White Petrolatum Ointment EACH EYE 1 applic Q12HR TEMI Administration Mupirocin 1 applic 08/15/24 21:00 08/19/24 08:17 Mupirocin 2% Oint 22 Gm Tube EACH NARE 1 applic Q12HR TEMI Administration Pantoprazole Sodium 40 mg 08/19/24 09:00 08/19/24 08:16 Pantoprazole Sodium Iv 40 Mg Vial IV PUSH 40 mg QAM TEMI Administration Polyethylene Glycol 17 gm 08/15/24 22:20 Polyethylene Glycol 3350 17 Gm Powd.Pack PO DAILY PRN constipation Vancomycin HCl 1 each 08/18/24 07:24 Vancomycin For Acute Kidney Injury IVPB PRN PRN Vancomycin Protocol Radiology Results: ITS Impressions Chest CTA 08/15/24 11:11 IMPRESSION: No pulmonary embolus. No thoracic aortic dissection. Right upper lobe infiltrate with patchy bilateral airspace disease, likely inflammatory/congestive rather than infectious. Small bilateral pleural effusions with adjacent atelectasis. Abdomen X-Ray 08/18/24 06:03 Impression: NG tube in satisfactory position. Chest/Abdomen/Pelvis CT 08/18/24 12:28 IMPRESSION: 1. Significant interval progression in an lobar pneumonia along with increasing small bilateral pleural effusions. 2. No acute intra-abdominal/pelvic process. 3. Subtle 2.5 cm mass at the upper pole of the right kidney consistent with provided history of renal tumor. 4. Calcification is at the bilateral kidneys which appear linear and likely atherosclerotic although could not exclude nonobstructing nephrolithiasis. No hydronephrosis in either kidney. 5. Unchanged mild likely reactive mediastinal lymphadenopathy. 6. Endotracheal tube, nasogastric tube and suprapubic Butt catheter all in expected positions. Venous Doppler Study 08/18/24 14:42 IMPRESSION: 1. Bilateral [id number] deep venous thrombosis in the left and right posterior tibial veins. Findings were discussed with the ICU nurse Carlos Herrera at 2:45 PM. Chest X-Ray 08/19/24 06:13 Impression: Probable moderate pulmonary edema pattern, improved from prior exam. Small right pleural effusion. Support tubes, as above. Labs Labs: Laboratory Results - last 24 hr 08/15/24 08/18/24 08/18/24 16:21 11:24 15:39 WBC RBC Hgb Hct MCV MCH MCHC RDW Plt Count MPV Immature Gran % (Auto) Neut % (Auto) Lymph % (Auto) [place] % (Auto) Eos % (Auto) Baso % (Auto) Lymph # (Auto) [place] # (Auto) Eos # (Auto) Baso # (Auto) Abs Immat Gran (auto) Absolute Neuts (auto) Absolute Nucleated RBC Nucleated RBC % PT 18.4 H INR 1.5 APTT 36.2 Puncture Site ABG pH ABG pCO2 ABG pO2 ABG PO2/FiO2 Ratio ABG HCO3 ABG O2 Saturation ABG O2 Content ABG Base Excess A-a Gradient Oxyhemoglobin Carboxyhemoglobin Methemoglobin Reduced Hemoglobin Total Hemoglobin O2 Delivery Device O2 Liters/Min Minute Volume Vent Rate Vent Mode FiO2 Tidal Volume PEEP Peak Inspir Pressure Pressure Support Sodium 142 Potassium 4.2 Chloride 104 Carbon Dioxide 25 Anion Gap 13 H BUN 56 H Creatinine 2.72 H Estim Creat Clear Calc 16 Estimated GFR 17 L Glucose 191 H POC Capillary Glucose 229 H Calcium 7.9 L Phosphorus Magnesium Total Bilirubin AST ALT Alkaline Phosphatase Total Creatine Kinase Total Protein Albumin Random Vancomycin Hep Bs Antigen Hep Bs Antibody Mycoplasma pneumon IgM 156 Urine Pneumococcal Ag Not detected 08/18/24 08/18/24 08/18/24 17:48 22:13 23:14 WBC RBC Hgb Hct MCV MCH MCHC RDW Plt Count MPV Immature Gran % (Auto) Neut % (Auto) Lymph % (Auto) [place] % (Auto) Eos % (Auto) Baso % (Auto) Lymph # (Auto) [place]ancey # (Auto) Eos # (Auto) Baso # (Auto) Abs Immat Gran (auto) Absolute Neuts (auto) Absolute Nucleated RBC Nucleated RBC % PT INR APTT 47.0 H Puncture Site ABG pH ABG pCO2 ABG pO2 ABG PO2/FiO2 Ratio ABG HCO3 ABG O2 Saturation ABG O2 Content ABG Base Excess A-a Gradient Oxyhemoglobin Carboxyhemoglobin Methemoglobin Reduced Hemoglobin Total Hemoglobin O2 Delivery Device O2 Liters/Min Minute Volume Vent Rate Vent Mode FiO2 Tidal Volume PEEP Peak Inspir Pressure Pressure Support Sodium Potassium Chloride Carbon Dioxide Anion Gap BUN Creatinine Estim Creat Clear Calc Estimated GFR Glucose POC Capillary Glucose 172 H 203 H Calcium Phosphorus Magnesium Total Bilirubin AST ALT Alkaline Phosphatase Total Creatine Kinase Total Protein Albumin Random Vancomycin Hep Bs Antigen Hep Bs Antibody Mycoplasma pneumon IgM Urine Pneumococcal Ag 08/19/24 08/19/24 08/19/24 04:40 06:03 07:00 WBC 9.0 RBC 2.98 L Hgb 7.8 L Hct 26.0 L MCV 87.2 MCH 26.2 MCHC 30.0 L RDW 18.1 H Plt Count 137 L MPV 12.0 H Immature Gran % (Auto) 1.7 H Neut % (Auto) 77.2 H Lymph % (Auto) 14.3 L Yancey % (Auto) 5.8 Eos % (Auto) 0.6 Baso % (Auto) 0.4 Lymph # (Auto) 1.28 Yancey # (Auto) 0.5 Eos # (Auto) 0.1 Baso # (Auto) 0.0 Abs Immat Gran (auto) 0.15 H Absolute Neuts (auto) 6.9 H Absolute Nucleated RBC 0.000 Nucleated RBC % 0.0 PT INR APTT 60.5 H Puncture Site Right brachial ABG pH 7.348 L ABG pCO2 33.4 L ABG pO2 48.8 L* ABG PO2/FiO2 Ratio 0.75 ABG HCO3 17.9 L ABG O2 Saturation 83.0 L* ABG O2 Content 11.0 L ABG Base Excess -6.9 A-a Gradient 378.3 Oxyhemoglobin 80.6 L* Carboxyhemoglobin 0.3 Methemoglobin 0.3 Reduced Hemoglobin 18.8 H Total Hemoglobin 9.7 L O2 Delivery Device Ventilator O2 Liters/Min Not Reportable Minute Volume Not Reportable Vent Rate 18 Vent Mode Cmv FiO2 65 Tidal Volume 380 PEEP 8 Peak Inspir Pressure Not Reportable Pressure Support Not Reportable Sodium 141 Potassium 4.4 Chloride 103 Carbon Dioxide 18 L Anion Gap 20 H BUN 67 H D Creatinine 3.55 H Estim Creat Clear Calc 13 Estimated GFR 12 L Glucose 187 H POC Capillary Glucose 193 H Calcium 8.3 L Phosphorus 5.8 H Magnesium 2.2 Total Bilirubin 0.9 AST 407 H ALT 159 H Alkaline Phosphatase 99 Total Creatine Kinase 238 H Total Protein 7.0 Albumin 3.9 Random Vancomycin 12.6 Hep Bs Antigen Negative Hep Bs Antibody Negative Mycoplasma pneumon IgM Urine Pneumococcal Ag
[2024-08-19 12:13] LABS: Glucose Point of Care 241 mg/dl (65-105)
[2024-08-19] MEDS: AZITHROMYCIN 500 MG/NS 250 ML 500 MG/250 ML BAG 250 MG IVPB (12:19)
[2024-08-19] MEDS: INSULIN ASPART (*BKC) 100 UNITS/ML SUB-Q (12:21)
--- NOTE | 2024-08-19 12:28 | WPDPROCEDUR ---
Procedures Central Line Placement Right IJ: Central Line Date: 08/19/24 Central Line Time: 11:45 Discussed w/ the patient/family/POA,the placement of a central venous catheter, including its clinical necessity/indication & associated potential risks, benifits and alternatives.: Yes The patient/family/POA understand(s) and acknowledge(s) the need to proceed with central venous catheter insertion as an important element of the patient's clinical management.: Yes Consent: I have discussed with the patient and/or surrogate, the non-emergent placement of a temporary dialysis venous catheter, including its clinical necessity/indication and associated potential risks and complications. The patient and/or surrogate understand(s) and acknowledge(s) the need to proceed with temporary dialysis venous catheter insertion as an important element of the patient's clinical management. Time Out Performed: Yes Patient Position: supine Patient placed on monitor/pulse ox: Yes Provider Prep: mask, sterile gown, sterile gloves, Max. sterile barrier precautions, cap and hand hygiene with conventional soap/water or alcohol based hand rub Central line prep: Povidone-Iodine 1% Sterile US Technique with sterile gel/sterile probe covers: Yes Central line lumen inserted: triple Length (cm): 16 Depth of Insertion (cm): 16 Post Procedure: sutured in place, good blood return, all ports aspirated, flushed, capped, transparent dressing and aseptic technique maintained throughout procedure Post procedure x-ray: tip of catheter in good position and no pneumothorax seen Patient tolerated procedure: well Complications: none
[2024-08-19] MEDS: NOREPINEPHRINE 8 MG/D5W 250 ML 8 MG/250 ML BAG 9.38 MG IV CONT (12:51)
[2024-08-19] MEDS: MIDAZOLAM 100MG/NS 100ML(*CRX) 100 MG/100 ML BAG 8 MG IV CONT (14:04)
--- NOTE | 2024-08-19 14:40 | P.PNIM_ITS ---
Progress Note: A&P Assessment and Plan (1) Acute respiratory failure with hypoxia: Code(s): J96.01 - Acute respiratory failure with hypoxia Status: Acute Assessment and Plan: Acute Respiratory failure secondary to combination of pneumonia and possible congestive heart failure intubated and on mechanical ventilation. repeat CT chest showed Significant interval progression in an lobar pneumonia along with increasing small bilateral pleural effusions. Continue Cefepime, Vanc and Azithromycin F/u cultures Titrate diuresis per blood pressure (2) Congestive heart failure: Code(s): I50.9 - Heart failure, unspecified Status: Acute Assessment and Plan: See above (3) Non-ST elevation myocardial infarction (NSTEMI): Code(s): I21.4 - Non-ST elevation (NSTEMI) myocardial infarction Status: Acute Assessment and Plan: History of coronary disease status post PCI in the past now presented with el evated troponin. Cardiology following Currently on aspirin Other medications on hold due to low blood pressure Statin Hold was slightly elevated LFTs. No plan for cardiac catheterization at this time. (4) Coronary artery disease: Code(s): I25.10 - Atherosclerotic heart disease of [place] coronary artery without angina pectoris Status: Acute Assessment and Plan: See above (5) Type 2 diabetes mellitus: Code(s): E11.9 - Type 2 diabetes mellitus without complications Status: Chronic Assessment and Plan: Sliding scale insulin Continue tube feeds (6) Renal failure: Code(s): N19 - Unspecified kidney failure Status: Acute Assessment and Plan: Patient presented with creatinine of 1.5. Baseline creatinine unknown She has suprapubic catheter. As per son patient has had a renal tumor which was being monitored and plan was to start radiation therapy by her urology CT scan showed Subtle 2.5 cm mass at the upper pole of the right kidney consistent with provided history of renal tumor. Calcification is at the bilateral kidneys which appear linear and likely atherosclerotic although could not exclude nonobstructing nephrolithiasis. No hydronephrosis in either kidney. Diuretics were held and patient was given albumin bolus Creatinine further increased to 3.55 urine output remains poor Monitor urine output electrolytes and creatinine Nephrology consulted and following patient Patient will likely need hemodialysis with worsening renal function and poor urine output (7) Pneumonia: Code(s): J18.9 - Pneumonia, unspecified organism Status: Acute Assessment and Plan: See above (8) Kidney mass: Code(s): N28.89 - Other specified disorders of kidney and ureter Status: Acute Assessment and Plan: Patient's son reports history of kidney mass which is being monitor as it was too big to be removed without total nephrectomy. He states that patient was supposed to get radiation therapy in a month or so before she fractured her ankle. CT scan shows 2.5 cm renal mass on the right side and no hydronephrosis. No int ervention at this time (9) DVT (deep venous thrombosis): Code(s): I82.409 - Acute embolism and thrombosis of unspecified deep veins of unspecified lower extremity Status: Acute Assessment and Plan: Bilateral venous Dopplers obtained due to swelling in the legs. Ultrasound showed Bilateral [id number] deep venous thrombosis in the left and right posterior tibial veins. Findings were discussed with the ICU nurse Carlos Herrera at 2:45 PM. Patient started on heparin infusion Plan DVT prophylaxis -Lovenox Stress ulcer prophylaxis - PPI Nutrition -start Tube Feeds Code Status - Full Code Subjective Date/time seen: 08/19/24 14:40 Interval history: Comfortbale at bedside Intubated and sedated Review of Systems Review of Systems: 12 systems were reviewed and are negativ e except for as per HPI. ROS unobtainable: Yes unobtainable due to endotracheal tube, unobtainable due to medical condition and unobtainable due to mental status Exam Narrative: General: Pt is sedated, intubated and on mechanical ventilation Lungs/Chest: Trachea central Coarse BS B/L, No crackles or wheezing. Cardiac: RRR. Normal S1 S2. No murmurs Circulation: Feet are cold Abdomen: Decreased bowel sounds. Obese. Soft. NT. ND. Extremities: Bilateral pitting edema : Butt in place Neurologic: Intubated adn sedated Objective Data Vital Signs Vital Signs: Vital Signs - 24 hr 08/18/24 16:00 08/18/24 16:00 08/18/24 16:00 Temperature 99.1 F Pulse Rate 88 88 88 Respiratory Rate 23 H 24 H 24 H Blood Pressure 100/61 Pulse Oximetry 100 Oxygen Delivery Fraction of Inspired Oxygen 08/18/24 16:00 08/18/24 16:00 08/18/24 16:00 Temperature Pulse Rate 88 Respiratory Rate Blood Pressure 100/61 Pulse Oximetry 99 Oxygen Delivery Mechanical Ventilation Fraction of Inspired Oxygen 50 50 08/18/24 16:00 08/18/24 17:30 08/18/24 18:00 Temperature 100.5 F H Pulse Rate 88 85 89 Respiratory Rate 21 H Blood Pressure 103/59 L Pulse Oximetry 100 97 Oxygen Delivery Mechanical Ventilation Fraction of Inspired Oxygen 50 08/18/24 18:00 08/18/24 18:00 08/18/24 18:00 Temperature Pulse Rate 89 89 89 Respiratory Rate 20 20 Blood Pressure Pulse Oximetry Oxygen Delivery Fraction of Inspired Oxygen 08/18/24 18:00 08/18/24 20:00 08/18/24 20:00 Temperature 102.6 F H Pulse Rate 89 111 H 111 H Respiratory Rate 23 H 23 H Blood Pressure 103/59 L 102/66 Pulse Oximetry 94 Oxygen Delivery Fraction of Inspired Oxygen 08/18/24 20:00 08/18/24 20:00 08/18/24 20:00 Temperature Pulse Rate 111 H 111 H Respiratory Rate 23 H Blood Pressure 102/66 Pulse Oximetry Oxygen Delivery Fraction of Inspired Oxygen 40 08/18/24 20:00 08/18/24 20:00 08/18/24 20:26 Temperature Pulse Rate 98 104 H Respiratory Rate Blood Pressure Pulse Oximetry 96 94 Oxygen Delivery Mechanical Ventilation Mechanical Ventilation Fraction of Inspired Oxygen 40 50 08/18/24 20:26 08/18/24 20:26 08/18/24 21:00 Temperature Pulse Rate 104 H 104 H 100 Respiratory Rate 21 H 21 H 24 H Blood Pressure Pulse Oximetry 94 Oxygen Delivery Mechanical Ventilation Fraction of Inspired Oxygen 40 08/18/24 21:30 08/18/24 21:57 08/18/24 22:00 Temperature 102.7 F H Pulse Rate 101 H 97 Respiratory Rate 22 H 22 H Blood Pressure 110/87 Pulse Oximetry 93 Oxygen Delivery Fraction of Inspired Oxygen 08/18/24 22:00 08/18/24 22:00 08/18/24 22:00 Temperature Pulse Rate 97 97 97 Respiratory Rate 22 H 22 H Blood Pressure 110/87 Pulse Oximetry Oxygen Delivery Fraction of Inspired Oxygen 08/18/24 22:00 08/18/24 23:06 08/19/24 00:00 Temperature Pulse Rate 93 92 99 Respiratory Rate 21 H Blood Pressure Pulse Oximetry 93 Oxygen Delivery Mechanical Ventilation Fraction of Inspired Oxygen 50 08/19/24 00:00 08/19/24 00:00 08/19/24 00:00 Temperature 101.5 F H Pulse Rate 99 Respiratory Rate Blood Pressure 91/61 L Pulse Oximetry Oxygen Delivery Fraction of Inspired Oxygen 50 08/19/24 00:00 08/19/24 00:00 08/19/24 00:00 Temperature 101.5 F H Pulse Rate 98 98 Respiratory Rate 20 Blood Pressure 91/61 L Pulse Oximetry 97 97 Oxygen Delivery Mechanical Ventilation Fraction of Inspired Oxygen 50 08/19/24 00:40 08/19/24 02:00 08/19/24 02:00 Temperature Pulse Rate 97 92 92 Respiratory Rate 19 22 H Blood Pressure 79/60 L Pulse Oximetry Oxygen Delivery Fraction of Inspired Oxygen 08/19/24 02:00 08/19/24 02:00 08/19/24 02:00 Temperature 100.0 F H Pulse Rate 92 92 92 Respiratory Rate 22 H 22 H Blood Pressure 72/53 L Pulse Oximetry 98 Oxygen Delivery Fraction of Inspired Oxygen 08/19/24 02:09 08/19/24 02:09 08/19/24 02:33 Temperature Pulse Rate 70 70 81 Respiratory Rate 24 H 24 H Blood Pressure Pulse Oximetry 91 Oxygen Delivery Mechanical Ventilation Fraction of Inspired Oxygen 65 08/19/24 02:33 08/19/24 02:45 08/19/24 02:45 Temperature Pulse Rate 81 88 88 Respiratory Rate 29 H 31 H 31 H Blood Pressure Pulse Oximetry Oxygen Delivery Fraction of Inspired Oxygen 08/19/24 03:00 08/19/24 03:15 08/19/24 03:30 Temperature Pulse Rate 89 91 89 Respiratory Rate Blood Pressure 92/50 L 90/55 L 85/50 L Pulse Oximetry Oxygen Delivery Fraction of Inspired Oxygen 08/19/24 04:00 08/19/24 04:00 08/19/24 04:00 Temperature Pulse Rate 101 H Respiratory Rate 29 H Blood Pressure Pulse Oximetry 92 Oxygen Delivery Mechanical Ventilation Fraction of Inspired Oxygen 60 60 08/19/24 04:00 08/19/24 04:00 08/19/24 04:00 Temperature 101.6 F H Pulse Rate 101 H 101 H 101 H Respiratory Rate 29 H 29 H Blood Pressure 83/54 L 83/54 L Pulse Oximetry 92 Oxygen Delivery Fraction of Inspired Oxygen 08/19/24 04:00 08/19/24 05:30 08/19/24 05:30 Temperature Pulse Rate 101 H 102 H 93 Respiratory Rate 35 H Blood Pressure Pulse Oximetry 92 Oxygen Delivery Mechanical Ventilation Fraction of Inspired Oxygen 65 08/19/24 05:45 08/19/24 06:00 08/19/24 06:00 Temperature Pulse Rate 100 96 96 Respiratory Rate 35 H 33 H 33 H Blood Pressure Pulse Oximetry Oxygen Delivery Fraction of Inspired Oxygen 08/19/24 06:00 08/19/24 06:00 08/19/24 06:00 Temperature 102.7 F H 102.7 F H Pulse Rate 96 96 Respiratory Rate 33 H Blood Pressure 125/71 125/71 Pulse Oximetry 97 Oxygen Delivery Fraction of Inspired Oxygen 08/19/24 06:00 08/19/24 06:45 08/19/24 06:45 Temperature Pulse Rate 95 96 98 Respiratory Rate 27 H Blood Pressure 110/75 Pulse Oximetry Oxygen Delivery Fraction of Inspired Oxygen 08/19/24 08:00 08/19/24 08:00 08/19/24 08:00 Temperature 101.7 F H Pulse Rate 90 97 97 Respiratory Rate 24 H 22 H Blood Pressure 110/75 109/60 Pulse Oximetry 97 Oxygen Delivery Fraction of Inspired Oxygen 08/19/24 08:00 08/19/24 08:00 08/19/24 08:00 Temperature Pulse Rate 97 Respiratory Rate 22 H Blood Pressure Pulse Oximetry Oxygen Delivery Mechanical Ventilation Fraction of Inspired Oxygen 65 65 08/19/24 08:00 08/19/24 08:54 08/19/24 09:08 Temperature Pulse Rate 90 85 89 Respiratory Rate 22 H Blood Pressure Pulse Oximetry 97 Oxygen Delivery Mechanical Ventilation Fraction of Inspired Oxygen 65 08/19/24 10:00 08/19/24 10:00 08/19/24 10:00 Temperature Pulse Rate 87 87 87 Respiratory Rate 20 20 Blood Pressure Pulse Oximetry Oxygen Delivery Fraction of Inspired Oxygen 08/19/24 10:00 08/19/24 10:05 08/19/24 10:20 Temperature 101.4 F H Pulse Rate 87 86 93 Respiratory Rate 20 Blood Pressure 80/54 L 80/54 L 95/64 L Pulse Oximetry 97 Oxygen Delivery Fraction of Inspired Oxygen 08/19/24 10:20 08/19/24 10:21 08/19/24 12:00 Temperature 101.0 F H Pulse Rate 93 93 92 Respiratory Rate 21 H 18 Blood Pressure 95/64 L 92/63 L Pulse Oximetry 93 Oxygen Delivery Fraction of Inspired Oxygen 08/19/24 12:00 08/19/24 12:00 08/19/24 12:00 Temperature Pulse Rate 106 H 106 H 106 H Respiratory Rate 20 18 Blood Pressure 92/63 L Pulse Oximetry Oxygen Delivery Fraction of Inspired Oxygen 08/19/24 12:00 08/19/24 12:00 08/19/24 12:00 Temperature Pulse Rate 95 Respiratory Rate Blood Pressure Pulse Oximetry Oxygen Delivery Mechanical Ventilation Fraction of Inspired Oxygen 65 65 08/19/24 12:51 08/19/24 12:53 08/19/24 13:20 Temperature Pulse Rate 86 84 71 Respiratory Rate 20 Blood Pressure 82/57 L 85/58 L Pulse Oximetry Oxygen Delivery Fraction of Inspired Oxygen 08/19/24 13:33 08/19/24 13:54 08/19/24 13:56 Temperature Pulse Rate 86 83 81 Respiratory Rate 21 H Blood Pressure 86/54 L Pulse Oximetry 97 Oxygen Delivery Mechanical Ventilation Fraction of Inspired Oxygen 65 08/19/24 14:00 08/19/24 14:00 08/19/24 14:00 Temperature 98.3 F Pulse Rate 81 81 81 Respiratory Rate 11 L 19 Blood Pressure 84/57 L Pulse Oximetry 97 Oxygen Delivery Fraction of Inspired Oxygen 08/19/24 14:00 08/19/24 14:03 08/19/24 14:04 Temperature Pulse Rate 81 83 85 Respiratory Rate 19 20 Blood Pressure 84/57 L Pulse Oximetry Oxygen Delivery Fraction of Inspired Oxygen 08/19/24 14:04 08/19/24 14:05 Temperature Pulse Rate 85 81 Respiratory Rate 20 20 Blood Pressure Pulse Oximetry Oxygen Delivery Fraction of Inspired Oxygen Intake/Output Intake/Output: Intake & Output 08/16/24 08/17/24 08/18/24 08/19/24 23:59 23:59 23:59 23:59 Intake Total 2570.0 2500.4 2038.5 1202.4 Output Total 1550 1025 650 100 Balance 1020.0 1475.4 1388.5 1102.4 Meds/Results Medications: Active Medications Generic Name Dose Route Start Last Admin Trade Name Freq PRN Reason Stop Dose Admin Acetaminophen 650 mg 08/18/24 21:48 08/19/24 06:00 Acetaminophen Elixir 325 Mg/10.15 Ml Udc PO 650 mg Q4H PRN Administration Mild Pain (1-3) or Fever Dextrose 12.5 gm 08/18/24 05:53 Dextrose 50% 25 Gm/50 Ml Syringe IV PUSH PRN PRN Hypoglycemia Protocol Epoetin Oliver-epbx 10,000 units 08/19/24 20:39 Epoetin Oliver-Epbx 10,000 Units/Ml Vial IV PUSH 08/19/24 20:40 ONCE ONE Glucagon 1 mg 08/18/24 05:53 Glucagon For Inj 1 Mg Vial IM PRN PRN Hypoglycemia Protocol Glucose 15 gm 08/18/24 05:53 Glucose Oral Gel 15 Gm Of Glucse In 37.5 Gm Tube PO PRN PRN Hypoglycemia Protocol Heparin Sodium (Porcine) 5,500 units 08/18/24 15:05 08/18/24 23:23 Heparin Sodium 5,000 Units/Ml Vial IV PUSH 5,500 units PRN PRN Administration aPTT less than 55 seconds Heparin Sodium (Porcine) 3,000 units 08/18/24 15:05 Heparin Sodium 5,000 Units/Ml Vial IV PUSH PRN PRN aPTT 55 - 70 seconds Fentanyl Citrate 2,500 mcg in 250 mls @ 15 mls/hr 08/18/24 00:55 08/19/24 14:00 Fentanyl 2,500 Mcg/Ns 250 Ml IV CONT 150 mcg/hr .[id number] TEMI 15 mls/hr Titration Protocol 150 MCG/HR Midazolam HCl 100 mg in 100 mls @ 8 mls/hr 08/18/24 00:55 08/19/24 14:04 Versed 100 Mg/Ns 100 Ml IV CONT 8 mg/hr .[id number] TEIM 8 mls/hr Administration Protocol 8 MG/HR Cefepime HCl 2 gm in 50 mls @ 100 mls/hr 08/18/24 02:00 08/19/24 02:39 Maxipime 2 Gm/Ns 50 Ml IVPB Infused Q24H TEMI Infusion Dextrose 1,000 mls @ 100 mls/hr 08/18/24 05:53 Dextrose 5% 1,000 Ml IVPB PRN PRN Hypoglycemia Protocol Heparin Sodium/Dextrose 25,000 units in 250 mls @ 16 mls/hr 08/18/24 15:05 08/19/24 13:28 Heparin Sodium/D5w 100 Units/Ml IV CONT 1,600 units/hr .[id number] TEMI 16 mls/hr Titration Protocol 1,600 UNITS/HR Norepinephrine Bitartrate 8 mg in 250 mls @ 20.625 mls/hr 08/19/24 12:30 08/19/24 14:03 Levophed 8 Mg/D5w 250 Ml IV CONT 11 mcg/min .Q12H8M TEMI 20.63 mls/hr Titration Protocol 11 MCG/MIN Albumin Human 50 mls @ 999 mls/hr 08/19/24 13:39 Albutein IVPB 08/20/24 13:38 Q10M PRN HYPOTENSION Sodium Chloride 1,000 mls @ 999 mls/hr 08/19/24 13:39 Normal Saline Iv IV CONT 08/19/24 14:39 .Q1H1M ONE Insulin Aspart 4 - 8 units 08/18/24 06:00 08/19/24 12:21 Insulin Aspart (*Bkc) 100 Units/Ml SUB-Q 4 units Q6HR TEMI Administration Protocol Insulin Glargine 10 units 08/18/24 21:00 08/18/24 20:59 Insulin Glargine (*Bkc) 100 Units/Ml SUB-Q 10 units HS TEMI Administration Ipratropium [place] 0.5 mg 08/18/24 02:00 08/19/24 13:53 Ipratropium Br 0.02% Inh Soln 0.5 Mg/2.5 Ml Vial INHALATION 0.5 mg Q6HRT TEMI Administration Levalbuterol HCl 1.25 mg 08/19/24 02:00 08/19/24 13:53 Levalbuterol Neb 1.25 Mg/3 Ml INHALATION 1.25 mg Q6HRT TEMI Administration Midazolam HCl 2 mg 08/19/24 02:59 08/19/24 05:16 Midazolam Hcl (*Crx) 2 Mg/2 Ml Vial IV PUSH 2 mg Q1HR PRN Administration Agitation Multi-Ingred Cream/Lotion/Oil/Oint 1 applic 08/18/24 09:00 08/19/24 08:17 Mineral Oil/White Petrolatum Ointment EACH EYE 1 applic Q12HR TEMI Administration Mupirocin 1 applic 08/15/24 21:00 08/19/24 08:17 Mupirocin 2% Oint 22 Gm Tube EACH NARE 1 applic Q12HR TEMI Administration Pantoprazole Sodium 40 mg 08/19/24 09:00 08/19/24 08:16 Pantoprazole Sodium Iv 40 Mg Vial IV PUSH 40 mg QAM TEMI Administration Polyethylene Glycol 17 gm 08/15/24 22:20 Polyethylene Glycol 3350 17 Gm Powd.Pack PO DAILY PRN constipation Vancomycin HCl 1 each 08/18/24 07:24 Vancomycin For Acute Kidney Injury IVPB PRN PRN Vancomycin Protocol Radiology Results: ITS Impressions Chest CTA 08/15/24 11:11 IMPRESSION: No pulmonary embolus. No thoracic aortic dissection. Right upper lobe infiltrate with patchy bilateral airspace disease, likely inflammatory/congestive rather than infectious. Small bilateral pleural effusions with adjacent atelectasis. Abdomen X-Ray 08/18/24 06:03 Impression: NG tube in satisfactory position. Chest/Abdomen/Pelvis CT 08/18/24 12:28 IMPRESSION: 1. Significant interval progression in an lobar pneumonia along with increasing small bilateral pleural effusions. 2. No acute intra-abdominal/pelvic process. 3. Subtle 2.5 cm mass at the upper pole of the right kidney consistent with provided history of renal tumor. 4. Calcification is at the bilateral kidneys which appear linear and likely atherosclerotic although could not exclude nonobstructing nephrolithiasis. No hydronephrosis in either kidney. 5. Unchanged mild likely reactive mediastinal lymphadenopathy. 6. Endotracheal tube, nasogastric tube and suprapubic Butt catheter all in expected positions. Venous Doppler Study 08/18/24 14:42 IMPRESSION: 1. Bilateral [id number] deep venous thrombosis in the left and right posterior tibial veins. Findings were discussed with the ICU nurse Carlos Herrera at 2:45 PM. Chest X-Ray 08/19/24 12:22 IMPRESSION: 1. Right internal jugular central venous catheter tip at the superior cavoatrial junction. No pneumothorax. 2. Bilateral lung disease consistent with likely small to moderate-sized right and small left posterior layering pleural effusions and scattered patchy pneumonia. Renal Ultrasound 08/19/24 14:10 IMPRESSION: No hydronephrosis or renal calculi. Findings suggesting medical renal disease. Findings within the upper pole of the right kidney consistent with patient's history, as detailed above. Labs Labs: Laboratory Results - last 24 hr 08/15/24 08/18/24 08/18/24 16:21 15:39 17:48 WBC RBC Hgb Hct MCV MCH MCHC RDW Plt Count MPV Immature Gran % (Auto) Neut % (Auto) Lymph % (Auto) [place] % (Auto) Eos % (Auto) Baso % (Auto) Lymph # (Auto) [place] # (Auto) Eos # (Auto) Baso # (Auto) Abs Immat Gran (auto) Absolute Neuts (auto) Absolute Nucleated RBC Nucleated RBC % PT 18.4 H INR 1.5 APTT 36.2 Puncture Site ABG pH ABG pCO2 ABG pO2 ABG PO2/FiO2 Ratio ABG HCO3 ABG O2 Saturation ABG O2 Content ABG Base Excess A-a Gradient Oxyhemoglobin Carboxyhemoglobin Methemoglobin Reduced Hemoglobin Total Hemoglobin O2 Delivery Device O2 Liters/Min Minute Volume Vent Rate Vent Mode FiO2 Tidal Volume PEEP Peak Inspir Pressure Pressure Support Sodium 142 Potassium 4.2 Chloride 104 Carbon Dioxide 25 Anion Gap 13 H BUN 56 H Creatinine 2.72 H Estim Creat Clear Calc 16 Estimated GFR 17 L Glucose 191 H POC Capillary Glucose 172 H Calcium 7.9 L Phosphorus Magnesium Total Bilirubin AST ALT Alkaline Phosphatase Total Creatine Kinase Total Protein Albumin Random Vancomycin Hep Bs Antigen Hep Bs Antibody Mycoplasma pneumon IgM 156 Urine Pneumococcal Ag Not detected 08/18/24 08/18/24 08/19/24 22:13 23:14 04:40 WBC RBC Hgb Hct MCV MCH MCHC RDW Plt Count MPV Immature Gran % (Auto) Neut % (Auto) Lymph % (Auto) [place] % (Auto) Eos % (Auto) Baso % (Auto) Lymph # (Auto) [place] # (Auto) Eos # (Auto) Baso # (Auto) Abs Immat Gran (auto) Absolute Neuts (auto) Absolute Nucleated RBC Nucleated RBC % PT INR APTT 47.0 H Puncture Site Right brachial ABG pH 7.348 L ABG pCO2 33.4 L ABG pO2 48.8 L* ABG PO2/FiO2 Ratio 0.75 ABG HCO3 17.9 L ABG O2 Saturation 83.0 L* ABG O2 Content 11.0 L ABG Base Excess -6.9 A-a Gradient 378.3 Oxyhemoglobin 80.6 L* Carboxyhemoglobin 0.3 Methemoglobin 0.3 Reduced Hemoglobin 18.8 H Total Hemoglobin 9.7 L O2 Delivery Device Ventilator O2 Liters/Min Not Reportable Minute Volume Not Reportable Vent Rate 18 Vent Mode Cmv FiO2 65 Tidal Volume 380 PEEP 8 Peak Inspir Pressure Not Reportable Pressure Support Not Reportable Sodium Potassium Chloride Carbon Dioxide Anion Gap BUN Creatinine Estim Creat Clear Calc Estimated GFR Glucose POC Capillary Glucose 203 H Calcium Phosphorus Magnesium Total Bilirubin AST ALT Alkaline Phosphatase Total Creatine Kinase Total Protein Albumin Random Vancomycin Hep Bs Antigen Hep Bs Antibody Mycoplasma pneumon IgM Urine Pneumococcal Ag 08/19/24 08/19/24 08/19/24 06:03 07:00 12:10 WBC 9.0 RBC 2.98 L Hgb 7.8 L Hct 26.0 L MCV 87.2 MCH 26.2 MCHC 30.0 L RDW 18.1 H Plt Count 137 L MPV 12.0 H Immature Gran % (Auto) 1.7 H Neut % (Auto) 77.2 H Lymph % (Auto) 14.3 L [place] % (Auto) 5.8 Eos % (Auto) 0.6 Baso % (Auto) 0.4 Lymph # (Auto) 1.28 [place] # (Auto) 0.5 Eos # (Auto) 0.1 Baso # (Auto) 0.0 Abs Immat Gran (auto) 0.15 H Absolute Neuts (auto) 6.9 H Absolute Nucleated RBC 0.000 Nucleated RBC % 0.0 PT INR APTT 60.5 H Puncture Site ABG pH ABG pCO2 ABG pO2 ABG PO2/FiO2 Ratio ABG HCO3 ABG O2 Saturation ABG O2 Content ABG Base Excess A-a Gradient Oxyhemoglobin Carboxyhemoglobin Methemoglobin Reduced Hemoglobin Total Hemoglobin O2 Delivery Device O2 Liters/Min Minute Volume Vent Rate Vent Mode FiO2 Tidal Volume PEEP Peak Inspir Pressure Pressure Support Sodium 141 Potassium 4.4 Chloride 103 Carbon Dioxide 18 L Anion Gap 20 H BUN 67 H D Creatinine 3.55 H Estim Creat Clear Calc 13 Estimated GFR 12 L Glucose 187 H POC Capillary Glucose 193 H 241 H Calcium 8.3 L Phosphorus 5.8 H Magnesium 2.2 Total Bilirubin 0.9 AST 407 H ALT 159 H Alkaline Phosphatase 99 Total Creatine Kinase 238 H Total Protein 7.0 Albumin 3.9 Random Vancomycin 12.6 Hep Bs Antigen Negative Hep Bs Antibody Negative Mycoplasma pneumon IgM Urine Pneumococcal Ag Quality VTE Prophylaxis VTE prophylaxis: mechanical ordered and pharmacologic ordered
[2024-08-19] MEDS: HEPARIN SOD/D5W 100 UNITS/ML 25,000 UNITS/250 ML BAG 16 UNITS IV CONT (15:48)
[2024-08-19] MEDS: SODIUM CHLORIDE 0.9% IV 1,000 ML 999 ML IV CONT (16:10)
[2024-08-19] MEDS: ALBUMIN HUMAN 25% 12.5 GM/50ML 50 ML IVPB ×2 (16:18→17:12)
--- NOTE | 2024-08-19 17:01 | P.PNNP_ITS ---
Progress Note: A&P Assessment and Plan (1) Acute kidney injury: Code(s): N17.9 - Acute kidney failure, unspecified Status: Acute Assessment and Plan: * multifactorial etiology: * relative hypotension/hemodynamic instability * infection/early sepsis * IV diuresis/diuretics * contrast exposure (CTA chest on 08/15) * hypoxia * decline in urine output at this time * evaluation to date noted: * renal u/s without obstruction (but medical renal disease) * CPK mildly elevated (but not enough to affect kidney function) * urine electrolytes prerenal * moderate proteinuria * urine eosinophils negative * plan HD today due to declining urine output and worsening renal function * follow trend of repeat labs and UOP for potential renal recovery (2) Chronic kidney disease, stage 3: Code(s): N18.30 - Chronic kidney disease, stage 3 unspecified Status: Chronic Assessment and Plan: * baseline creatinine runs ~ 1.1 - 1.6mg/dl from early 2022 (from review of [facility] records) * this causes her to fluctuate between CKD stage 3A and stage 3B * presumably secondary to diabetes, hypertension, recurrent UTIs, and age- related change (3) Acute respiratory failure with hypoxia: Code(s): J96.01 - Acute respiratory failure with hypoxia Status: Acute Assessment and Plan: * due to pneumonia and pulmonary edema/CHF * on full ventilator support * further imaging of chest noted * continue current therapy (bronchodilators, antibiotics...etc) (4) Pneumonia: Code(s): J18.9 - Pneumonia, unspecified organism Status: Acute Assessment and Plan: * suggestive by admission * follow culture data * on antibiotics (5) Congestive heart failure: Code(s): I50.9 - Heart failure, unspecified Status: Acute Assessment and Plan: * imaging suggestive of pulmonary edema * Echo results (from 08/16) noted: * normal biventricular size and systolic function * no significant valvular abnormalities * was receiveing IV diuretics prior to transfer to ICU * this is on hold due to #1 and hypotension * fluid removal with dialysis as tolerated * Cardiology following (6) Non-ST elevation myocardial infarction (NSTEMI): Code(s): I21.4 - Non-ST elevation (NSTEMI) myocardial infarction Status: Acute Assessment and Plan: * elevated troponins noted * Cardiolgy folloiwing * known history of coronary disease status post stenting * suspect demand ischemia in setting of her current respiratory failure/pneumonia * s/p heparin drip x 48 hours * continue medical management (7) Right renal mass: Code(s): N28.89 - Other specified disorders of kidney and ureter Status: Acute Assessment and Plan: * suspicious for renal cell carcinoma * following with [facility] Urology * removal would require total right nepherectomy which would be high risk given patient's age * referred to radiation oncology for possible radiation therapy (8) Type 2 diabetes mellitus: Code(s): E11.9 - Type 2 diabetes mellitus without complications Status: Chronic Assessment and Plan: * follow accu-cheks * glycemic control per pocket stitcher/hospitalist Will continue to follow. L Subjective Date/time seen: 08/19/24 17:01 Interval history: Follow-up for acute kidney injury/acute renal failure on chronic kidney disease. Temporary HD catheteter placed earlier today and tolerating dialysis treatment at the time of my visit (seen on HD at 4:50PM); urine output has declined as has her renal function/creatinine; febrile overnight/today; remains intubated/sedated and on mechanical ventilation. Exam 2 Narrative: General: elderly female intubated/sedated and on mechanical ventilation Heart: normal S1 and S2; no rub Lungs: coarse breath sounds throughout Abdomen: soft, nontender, nondistended, positive bowel sounds Extremities: no cyanosis or clubbing; 1+ edema Skin: warm and dry Objective Data Vital Signs Vital Signs: Vital Signs Temp Pulse Resp BP Pulse Ox O2 Del Method FiO2 08/19/24 17:00 81 110/62 08/19/24 16:45 82 107/62 08/19/24 16:30 78 100/65 08/19/24 16:23 81 19 101/64 08/19/24 16:23 65 08/19/24 16:18 83 100/65 08/19/24 16:00 100.8 F H 83 17 102/63 100 08/19/24 16:00 79 08/19/24 16:00 65 08/19/24 16:00 Mechanical Ventilation 65 08/19/24 16:00 82 18 08/19/24 16:00 82 102/63 08/19/24 16:00 82 18 08/19/24 14:47 84 86/57 L 08/19/24 14:17 84 96/57 L 08/19/24 14:05 81 20 08/19/24 14:04 85 20 08/19/24 14:04 85 20 08/19/24 14:03 83 84/57 L 08/19/24 14:00 81 19 08/19/24 14:00 81 19 08/19/24 14:00 81 08/19/24 14:00 98.3 F 81 11 L 84/57 L 97 08/19/24 13:56 81 97 Mechanical Ventilation 65 08/19/24 13:54 83 21 H 08/19/24 13:33 86 86/54 L 08/19/24 13:20 71 85/58 L 08/19/24 12:53 84 20 08/19/24 12:51 86 82/57 L 08/19/24 12:00 95 08/19/24 12:00 65 08/19/24 12:00 Mechanical Ventilation 65 08/19/24 12:00 106 H 92/63 L 08/19/24 12:00 106 H 18 08/19/24 12:00 106 H 20 08/19/24 12:00 101.0 F H 92 18 92/63 L 93 08/19/24 10:21 93 21 H 08/19/24 10:20 93 95/64 L 08/19/24 10:20 93 95/64 L 08/19/24 10:05 86 80/54 L 08/19/24 10:00 101.4 F H 87 20 80/54 L 97 08/19/24 10:00 87 20 08/19/24 10:00 87 20 08/19/24 10:00 87 08/19/24 09:08 89 97 Mechanical Ventilation 65 08/19/24 08:54 85 22 H 08/19/24 08:00 90 08/19/24 08:00 65 08/19/24 08:00 Mechanical Ventilation 65 08/19/24 08:00 97 22 H 08/19/24 08:00 97 109/60 08/19/24 08:00 97 22 H 08/19/24 08:00 101.7 F H 90 24 H 110/75 97 08/19/24 06:45 98 27 H 08/19/24 06:45 96 110/75 08/19/24 06:00 95 08/19/24 06:00 102.7 F H 08/19/24 06:00 102.7 F H 96 33 H 125/71 97 08/19/24 06:00 96 125/71 08/19/24 06:00 96 33 H 08/19/24 06:00 96 33 H 08/19/24 05:45 100 35 H 08/19/24 05:30 93 92 Mechanical Ventilation 65 08/19/24 05:30 102 H 35 H 08/19/24 04:00 101 H 08/19/24 04:00 101.6 F H 101 H 29 H 83/54 L 92 08/19/24 04:00 101 H 83/54 L 08/19/24 04:00 101 H 29 H 08/19/24 04:00 101 H 29 H 08/19/24 04:00 92 Mechanical Ventilation 60 08/19/24 04:00 60 08/19/24 03:30 89 85/50 L 08/19/24 03:15 91 90/55 L 08/19/24 03:00 89 92/50 L 08/19/24 02:45 88 31 H 08/19/24 02:45 88 31 H 08/19/24 02:33 81 29 H 08/19/24 02:33 81 91 Mechanical Ventilation 65 08/19/24 02:09 70 24 H 08/19/24 02:09 70 24 H 08/19/24 02:00 92 08/19/24 02:00 100.0 F H 92 22 H 72/53 L 98 08/19/24 02:00 92 22 H 08/19/24 02:00 92 22 H 08/19/24 02:00 92 79/60 L 08/19/24 00:40 97 19 08/19/24 00:00 98 08/19/24 00:00 101.5 F H 98 20 91/61 L 97 08/19/24 00:00 97 Mechanical Ventilation 50 08/19/24 00:00 50 08/19/24 00:00 101.5 F H 08/19/24 00:00 99 91/61 L 08/19/24 00:00 99 21 H 08/18/24 23:06 92 93 Mechanical Ventilation 50 08/18/24 22:00 93 08/18/24 22:00 97 110/87 08/18/24 22:00 97 22 H 08/18/24 22:00 97 22 H 08/18/24 22:00 97 22 H 110/87 93 08/18/24 21:57 102.7 F H 08/18/24 21:30 101 H 22 H 08/18/24 21:00 100 24 H 08/18/24 20:26 104 H 21 H 08/18/24 20:26 104 H 21 H 94 Mechanical Ventilation 40 08/18/24 20:26 104 H 94 Mechanical Ventilation 50 08/18/24 20:00 98 08/18/24 20:00 96 Mechanical Ventilation 40 08/18/24 20:00 40 08/18/24 20:00 111 H 102/66 08/18/24 20:00 111 H 23 H 08/18/24 20:00 111 H 23 H 08/18/24 20:00 102.6 F H 111 H 23 H 102/66 94 Intake/Output Intake/Output: Intake & Output 08/16/24 08/17/24 08/18/24 08/19/24 23:59 23:59 23:59 23:59 Intake Total 2570.0 2500.4 2038.5 2284.0 Output Total 1550 1025 650 100 Balance 1020.0 1475.4 1388.5 2184.0 Meds/Results Medications: Active Medications Generic Name Dose Route Start Last Admin Trade Name Freq PRN Reason Stop Dose Admin Acetaminophen 650 mg 08/18/24 21:48 08/19/24 06:00 Acetaminophen Elixir 325 Mg/10.15 Ml Udc PO 650 mg Q4H PRN Administration Mild Pain (1-3) or Fever Dextrose 12.5 gm 08/18/24 05:53 Dextrose 50% 25 Gm/50 Ml Syringe IV PUSH PRN PRN Hypoglycemia Protocol Epoetin Oliver-epbx 10,000 units 08/19/24 20:39 Epoetin Oliver-Epbx 10,000 Units/Ml Vial IV PUSH 08/19/24 20:40 ONCE ONE Glucagon 1 mg 08/18/24 05:53 Glucagon For Inj 1 Mg Vial IM PRN PRN Hypoglycemia Protocol Glucose 15 gm 08/18/24 05:53 Glucose Oral Gel 15 Gm Of Glucse In 37.5 Gm Tube PO PRN PRN Hypoglycemia Protocol Heparin Sodium (Porcine) 5,500 units 08/18/24 15:05 08/18/24 23:23 Heparin Sodium 5,000 Units/Ml Vial IV PUSH 5,500 units PRN PRN Administration aPTT less than 55 seconds Heparin Sodium (Porcine) 3,000 units 08/18/24 15:05 Heparin Sodium 5,000 Units/Ml Vial IV PUSH PRN PRN aPTT 55 - 70 seconds Fentanyl Citrate 2,500 mcg in 250 mls @ 15 mls/hr 08/18/24 00:55 08/19/24 17:20 Fentanyl 2,500 Mcg/Ns 250 Ml IV CONT 150 mcg/hr .[id number] TEMI 15 mls/hr Administration Protocol 150 MCG/HR Midazolam HCl 100 mg in 100 mls @ 8 mls/hr 08/18/24 00:55 08/19/24 16:00 Versed 100 Mg/Ns 100 Ml IV CONT 8 mg/hr .[id number] TEMI 8 mls/hr Titration Protocol 8 MG/HR Cefepime HCl 2 gm in 50 mls @ 100 mls/hr 08/18/24 02:00 08/19/24 02:39 Maxipime 2 Gm/Ns 50 Ml IVPB Infused Q24H TEMI Infusion Dextrose 1,000 mls @ 100 mls/hr 08/18/24 05:53 Dextrose 5% 1,000 Ml IVPB PRN PRN Hypoglycemia Protocol Heparin Sodium/Dextrose 25,000 units in 250 mls @ 16 mls/hr 08/18/24 15:05 08/19/24 15:48 Heparin Sodium/D5w 100 Units/Ml IV CONT 1,600 units/hr .[id number] TEMI 16 mls/hr Administration Protocol 1,600 UNITS/HR Norepinephrine Bitartrate 8 mg in 250 mls @ 24.375 mls/hr 08/19/24 12:30 08/19/24 16:00 Levophed 8 Mg/D5w 250 Ml IV CONT 13 mcg/min .[id number] TEMI 24.38 mls/hr Titration Protocol 13 MCG/MIN Albumin Human 50 mls @ 999 mls/hr 08/19/24 13:39 08/19/24 17:12 Albutein IVPB 08/20/24 13:38 999 mls/hr Q10M PRN Administration HYPOTENSION Insulin Aspart 4 - 8 units 08/18/24 06:00 08/19/24 12:21 Insulin Aspart (*Bkc) 100 Units/Ml SUB-Q 4 units Q6HR TEMI Administration Protocol Insulin Glargine 10 units 08/18/24 21:00 08/18/24 20:59 Insulin Glargine (*Bkc) 100 Units/Ml SUB-Q 10 units HS TEMI Administration Ipratropium [place] 0.5 mg 08/18/24 02:00 08/19/24 13:53 Ipratropium Br 0.02% Inh Soln 0.5 Mg/2.5 Ml Vial INHALATION 0.5 mg Q6HRT TEMI Administration Levalbuterol HCl 1.25 mg 08/19/24 02:00 08/19/24 13:53 Levalbuterol Neb 1.25 Mg/3 Ml INHALATION 1.25 mg Q6HRT TEMI Administration Midazolam HCl 2 mg 08/19/24 02:59 08/19/24 05:16 Midazolam Hcl (*Crx) 2 Mg/2 Ml Vial IV PUSH 2 mg Q1HR PRN Administration Agitation Multi-Ingred Cream/Lotion/Oil/Oint 1 applic 08/18/24 09:00 08/19/24 08:17 Mineral Oil/White Petrolatum Ointment EACH EYE 1 applic Q12HR TEMI Administration Mupirocin 1 applic 08/15/24 21:00 08/19/24 08:17 Mupirocin 2% Oint 22 Gm Tube EACH NARE 1 applic Q12HR TEMI Administration Pantoprazole Sodium 40 mg 08/19/24 09:00 08/19/24 08:16 Pantoprazole Sodium Iv 40 Mg Vial IV PUSH 40 mg QAM TEMI Administration Polyethylene Glycol 17 gm 08/15/24 22:20 Polyethylene Glycol 3350 17 Gm Powd.Pack PO DAILY PRN constipation Vancomycin HCl 1 each 08/18/24 07:24 Vancomycin For Acute Kidney Injury IVPB PRN PRN Vancomycin Protocol Radiology Results: ITS Impressions Chest CTA 08/15/24 11:11 IMPRESSION: No pulmonary embolus. No thoracic aortic dissection. Right upper lobe infiltrate with patchy bilateral airspace disease, likely inflammatory/congestive rather than infectious. Small bilateral pleural effusions with adjacent atelectasis. Abdomen X-Ray 08/18/24 06:03 Impression: NG tube in satisfactory position. Chest/Abdomen/Pelvis CT 08/18/24 12:28 IMPRESSION: 1. Significant interval progression in an lobar pneumonia along with increasing small bilateral pleural effusions. 2. No acute intra-abdominal/pelvic process. 3. Subtle 2.5 cm mass at the upper pole of the right kidney consistent with provided history of renal tumor. 4. Calcification is at the bilateral kidneys which appear linear and likely atherosclerotic although could not exclude nonobstructing nephrolithiasis. No hydronephrosis in either kidney. 5. Unchanged mild likely reactive mediastinal lymphadenopathy. 6. Endotracheal tube, nasogastric tube and suprapubic Butt catheter all in expected positions. Venous Doppler Study 08/18/24 14:42 IMPRESSION: 1. Bilateral [id number] deep venous thrombosis in the left and right posterior tibial veins. Findings were discussed with the ICU nurse Carlos Herrera at 2:45 PM. Chest X-Ray 08/19/24 12:22 IMPRESSION: 1. Right internal jugular central venous catheter tip at the superior cavoatrial junction. No pneumothorax. 2. Bilateral lung disease consistent with likely small to moderate-sized right and small left posterior layering pleural effusions and scattered patchy pneumonia. Renal Ultrasound 08/19/24 14:10 IMPRESSION: No hydronephrosis or renal calculi. Findings suggesting medical renal disease. Findings within the upper pole of the right kidney consistent with patient's history, as detailed above. Labs Labs: Laboratory Tests 08/19/24 07:00 08/19/24 07:00 Calcium 8.3 L Phosphorus 5.8 H Magnesium 2.2 Total Bilirubin 0.9 AST 407 H ALT 159 H Alkaline Phosphatase 99 Total Creatine Kinase 238 H Total Protein 7.0 Albumin 3.9
[2024-08-19] MEDS: FENTANYL 2,500MCG/NS250ML(*CRX 2,500 MCG/250 ML BAG 15 MCG IV CONT (17:20)
[2024-08-19] MEDS: EPOETIN ALFA-EPBX 10,000 UNITS/ML VIAL 10000 UNITS IV PUSH (18:01)
[2024-08-19 18:19] LABS: Glucose Point of Care 174 mg/dl (65-105)
--- NOTE | 2024-08-19 19:44 | PC.NURSE ---
1937- Update given to son, Luke KENNEDY.
[2024-08-19] MEDS: INSULIN GLARGINE (*BKC) 100 UNITS/ML 10 UNITS SUB-Q (20:27)
[2024-08-19] MEDS: CENTRAL LINE FLUSH 10 ML IV PUSH (20:28)
[2024-08-19 20:39] LABS: Partial Thromboplastin Time 123.7 Seconds (22.3-36.8)
[2024-08-19] MEDS: NOREPINEPHRINE 8 MG/D5W 250 ML 8 MG/250 ML BAG 20.63 MG IV CONT (23:53)
[2024-08-20] VITALS (59 sets, daily range): BP systolic 77–123; BP diastolic 46–72; PULSE 64–115; RESP 9–23; TEMP 37–38.7; O2SAT 96–100
[2024-08-20 00:09] LABS: Glucose Point of Care 241 mg/dl (65-105)
[2024-08-20] MEDS: INSULIN ASPART (*BKC) 100 UNITS/ML SUB-Q ×4 (00:15→21:12)
[2024-08-20 00:35] LABS: Creatinine Urine 163.5 mg/dL; Total Protein Urine Random 149 mg/dL; Ur Ttl Prot Creatinine Ratio 0.91 mg/mg (0-0.20)
[2024-08-20 01:02] LABS: Urea Random Urine 147 MG/DL
[2024-08-20 01:04] LABS: Sodium Urine Random 35 meq/L
[2024-08-20 01:06] LABS: Eosinophil Urine None Seen % (None Seen); Urine Eos QC 2nd Tech Confirmed
[2024-08-20] MEDS: IPRATROPIUM BR 0.02% INH SOLN 0.5 MG/2.5 ML VIAL INHALATION (01:46)
[2024-08-20] MEDS: LEVALBUTEROL NEB 1.25 MG/3 ML INHALATION (01:46)
[2024-08-20] MEDS: CEFEPIME 2 GM/NS 50 ML 2 GM/50 ML BAG IVPB (02:35)
[2024-08-20 03:24] LABS: Partial Thromboplastin Time 55.3 Seconds (22.3-36.8)
[2024-08-20] MEDS: HEPARIN SODIUM 5,000 UNITS/ML VIAL 3000 UNITS IV PUSH ×3 (03:49→17:03)
[2024-08-20] MEDS: MIDAZOLAM 100MG/NS 100ML(*CRX) 100 MG/100 ML BAG 6 MG IV CONT (04:00)
[2024-08-20 05:13] LABS: Alveolar/Arterial O2 Gradient 302.3 mmHg; Base Excess ABG -0.4 mEq/l (+/-2.0); Carboxyhemoglobin 0.3 % THb (0-2.0); Fractional Inspired Oxygen 65 %; HCO3 ABG 25.2 mEq/l (22.0-26.0); Methemoglobin ABG 0.1 %THb (0-1.5); Oxygen Content ABG 11.3 %vol (16.0-22.0); Oxygen Saturation ABG 97.9 % (95.0-100.0); Oxyhemoglobin 97.5 % THb (90.0-100.0); PO2 ABG 111.1 mmHg (80.0-100.0); PO2 FiO2 Ratio Arterial Blood 1.71 %; Reduced Hemoglobin 2.1 %THb (0-5.0); Total Hemoglobin 8.1 g/dL (12.0-18.0); pH ABG 7.356 (7.350-7.450)
[2024-08-20 05:14] LABS: Device VENTILATOR; Modified Allen's Test Pass; Site Drawn LEFT RADIAL
[2024-08-20 05:15] LABS: Arterial Blood Gas PEEP 10 cmH2O; Arterial Blood Gas Tidal Volume 380 ml; Arterial Blood Gas Vent Mode CMV; Arterial Blood Gas Ventilator rate 18 /MIN
[2024-08-20 06:54] LABS: Hematocrit 24.1 % (37.0-47.0); Hemoglobin 7.2 g/dL (12.0-15.0); Mean Corpuscular HGB Conc 29.9 g/dl (32-36); Mean Corpuscular Hemoglobin 25.5 pg (26-34); Mean Corpuscular Volume 85.5 fl (80-100); Mean Platelet Volume 11.9 fl (7.4-10.4); Platelet Count Result 165 k/mm3 (150-375); Red Blood Count 2.82 M/mm3 (4.2-5.4); Red Cell Distribution Width 17.9 % (11.5-14.5); White Blood Count 9.4 K/mm3 (4.5-10.0)
[2024-08-20 07:00] LABS: Alanine Aminotransferase 420 U/L (6-35); Albumin Level 3.5 g/dL (3.5-5.1); Alkaline Phosphatase 99 U/L (38-126); Anion Gap 10 mmol/L (4-12); Bilirubin,Total 0.6 mg/dL (0.2-1.3); Blood Urea Nitrogen 50 mg/dL (7-17); Calcium 8.1 mg/dL (8.4-10.2); Carbon Dioxide 29 mmol/L (22-30); Chloride 100 mmol/L (98-107); Estimated CRCL calculation 14 ml/min; Estimated Glomerular Filt Rate 13; Glucose 264 mg/dL (65-110); Magnesium 2.1 mg/dL (1.6-2.3); Phosphorus 4.3 mg/dL (2.5-4.5); Potassium 4.1 mmol/L (3.4-5.0); Sodium 139 mmol/L (137-145)
[2024-08-20 07:01] LABS: Glucose Point of Care 246 mg/dl (65-105)
[2024-08-20] MEDS: CENTRAL LINE FLUSH 10 ML IV PUSH ×3 (07:01→21:06)
[2024-08-20 07:17] LABS: Aspartate Amino Transferase 865 U/L (14-36)
[2024-08-20] MEDS: HEPARIN SOD/D5W 100 UNITS/ML 25,000 UNITS/250 ML BAG 16 UNITS IV CONT (07:51)
--- NOTE | 2024-08-20 08:47 | WPDINTPN ---
Progress Note: A&P Assessment and Plan (1) Acute respiratory failure with hypoxia: Code(s): J96.01 - Acute respiratory failure with hypoxia Status: Acute Assessment and Plan: Acute Respiratory failure secondary to combination of pneumonia and congestive heart failure Patient now intubated and on mechanical ventilation. Ventilator settings, ABG and chest reviewed Currently on PEEP of 10 and I have wean down FiO2 to 50%. Continue to wean as tolerated Repeat CT chest 08/18 MPRESSION: 1. Significant interval progression in an lobar pneumonia along with increasing small bilateral pleural effusions. Patient has elevated procalcitonin and BNP she is positive on intake output balance but her echocardiogram shows normal biventricular size and systolic function Bronchodilators Blood cultures have been sent and pending. Pending sputum culture Urine Legionella antigen, mycoplasma pneumonia antibody and urine pneumococcal antigen negative Dialysis to remove fluid Continue vancomycin cefepime azithromycin (2) Congestive heart failure: Code(s): I50.9 - Heart failure, unspecified Status: Acute Assessment and Plan: See above (3) Non-ST elevation myocardial infarction (NSTEMI): Code(s): I21.4 - Non-ST elevation (NSTEMI) myocardial infarction Status: Acute Assessment and Plan: History of coronary disease status post PCI in the past now presented with elevated troponin. Cardiology following Currently on aspirin Other medications on hold due to low blood pressure Statin Hold was slightly elevated LFTs. No plan for cardiac catheterization at this time. (4) Coronary artery disease: Code(s): I25.10 - Atherosclerotic heart disease of [place] coronary artery without angina pectoris Status: Acute Assessment and Plan: See above (5) Type 2 diabetes mellitus: Code(s): E11.9 - Type 2 diabetes mellitus without complications Status: Chronic Assessment and Plan: Sliding scale insulin Increase Lantus Continue tube feeds (6) Renal failure: Code(s): N19 - Unspecified kidney failure Status: Acute Assessment and Plan: Patient presented with creatinine of 1.5. Baseline creatinine unknown She has suprapubic catheter. As per son patient has had a renal tumor which was being monitored and plan was to start radiation therapy by her urology CT scan showed Subtle 2.5 cm mass at the upper pole of the right kidney consistent with provided history of renal tumor. Calcification is at the bilateral kidneys which appear linear and likely atherosclerotic although could not exclude nonobstructing nephrolithiasis. No hydronephrosis in either kidney. Diuretics were held and patient was given albumin bolus Creatinine continue to increase with poor urine output. After discussion with patient's family and agricultural produce commission agent decision was made to initiate dialysis. 08/19 dialysis catheter was placed and patient was dialyzed 1 L fluid was removed 08/20 patient is going to get dialyzed again today Monitor urine output electrolytes and creatinine Nephrology follow (7) Pneumonia: Code(s): J18.9 - Pneumonia, unspecified organism Status: Acute Assessment and Plan: See above (8) Kidney mass: Code(s): N28.89 - Other specified disorders of kidney and ureter Status: Acute Assessment and Plan: Patient's son reports history of kidney mass which is being monitor as it was too big to be removed without total nephrectomy. He states that patient was supposed to get radiation therapy in a month or so before she fractured her ankle. CT scan shows 2.5 cm renal mass on the right side and no hydronephrosis. No intervention at this time (9) DVT (deep venous thrombosis): Code(s): I82.409 - Acute embolism and thrombosis of unspecified deep veins of unspecified lower extremity Status: Acute Assessment and Plan: Bilateral venous Dopplers obtained due to swelling in the legs. Ultrasound showed Bilateral [id number] deep venous thrombosis in the left and right posterior tibial veins. Findings were discussed with the ICU nurse Carlos Herrera at 2:45 PM. Patient started on heparin infusion (10) Septic shock: Code(s): A41.9 - Sepsis, unspecified organism; R65.21 - Severe sepsis with septic shock Status: Acute Assessment and Plan: Continue Levophed titration Add hydrocortisone Plan DVT prophylaxis -Lovenox Stress ulcer prophylaxis - PPI Nutrition -continue Tube Feeds Code Status - Full Code / I spoke to and updated patient's son and his at bedside I answered all his questions. 08/19 I also met with patient's both sons at they wanted to proceed with hemodialysis. Total Critical Care Time - 30 minutes Due to a high probability of clinically significant, life threatening deterioration, the patient required my highest level of preparedness to intervene emergently and I personally spent this critical care time directly and personally managing the patient. This critical care time included obtaining a history; examining the patient; pulse oximetry; ordering and review of studies; arranging urgent treatment with development of a management plan; evaluation of patient's response to treatment; frequent reassessment; and discussions with other providers. It was exclusive of separately billable procedures and treating other patients and teaching time. Please see Assessment and Plan section and the rest of the note for further information on patient assessment and treatment Subjective Date/time seen: 08/20/24 Overnight events reviewed. febrile Continues to be on mechanical ventilation 55% FiO2 and 10 of PEEP Continues to be on Levophed 11 mcg Continues to be sedated with fentanyl Patient was dialyzed yesterday and 1 L fluid was removed Interval history: 4/3 temporary dialysis catheter placed patient was dialyzed Review of Systems Review of Systems: ROS unobtainable: Yes unobtainable due to endotracheal tube, unobtainable due to medical condition and unobtainable due to mental status Exam Narrative: General: Pt is sedated, intubated and on mechanical ventilation Lungs/Chest: Trachea central Coarse BS B/L, No crackles or wheezing. Cardiac: RRR. Normal S1 S2. No murmurs Circulation: Feet are cold Abdomen: Decreased bowel sounds. Obese. Soft. NT. ND. Extremities: Bilateral pitting edema : Butt in place Neurologic: Unable to assess due to sedation. Moves all 4 extremities to painful stimuli. PERRL Objective Data Vital Signs Vital Signs: Vital Signs - 24 hr 08/19/24 08:54 08/19/24 09:08 08/19/24 10:00 Temperature Pulse Rate 85 89 87 Respiratory Rate 22 H Blood Pressure Pulse Oximetry 97 Oxygen Delivery Mechanical Ventilation Fraction of Inspired Oxygen 65 08/19/24 10:00 08/19/24 10:00 08/19/24 10:00 Temperature 38.6 C H Pulse Rate 87 87 87 Respiratory Rate 20 20 20 Blood Pressure 80/54 L Pulse Oximetry 97 Oxygen Delivery Fraction of Inspired Oxygen 08/19/24 10:05 08/19/24 10:20 08/19/24 10:20 Temperature Pulse Rate 86 93 93 Respiratory Rate Blood Pressure 80/54 L 95/64 L 95/64 L Pulse Oximetry Oxygen Delivery Fraction of Inspired Oxygen 08/19/24 10:21 08/19/24 12:00 08/19/24 12:00 Temperature 38.3 C H Pulse Rate 93 92 106 H Respiratory Rate 21 H 18 20 Blood Pressure 92/63 L Pulse Oximetry 93 Oxygen Delivery Fraction of Inspired Oxygen 08/19/24 12:00 08/19/24 12:00 08/19/24 12:00 Temperature Pulse Rate 106 H 106 H Respiratory Rate 18 Blood Pressure 92/63 L Pulse Oximetry Oxygen Delivery Mechanical Ventilation Fraction of Inspired Oxygen 65 08/19/24 12:00 08/19/24 12:00 08/19/24 12:51 Temperature Pulse Rate 95 86 Respiratory Rate Blood Pressure 82/57 L Pulse Oximetry Oxygen Delivery Fraction of Inspired Oxygen 65 08/19/24 12:53 08/19/24 13:20 08/19/24 13:33 Temperature Pulse Rate 84 71 86 Respiratory Rate 20 Blood Pressure 85/58 L 86/54 L Pulse Oximetry Oxygen Delivery Fraction of Inspired Oxygen 08/19/24 13:54 08/19/24 13:56 08/19/24 14:00 Temperature 36.8 C Pulse Rate 83 81 81 Respiratory Rate 21 H 11 L Blood Pressure 84/57 L Pulse Oximetry 97 97 Oxygen Delivery Mechanical Ventilation Fraction of Inspired Oxygen 65 08/19/24 14:00 08/19/24 14:00 08/19/24 14:00 Temperature Pulse Rate 81 81 81 Respiratory Rate 19 19 Blood Pressure Pulse Oximetry Oxygen Delivery Fraction of Inspired Oxygen 08/19/24 14:03 08/19/24 14:04 08/19/24 14:04 Temperature Pulse Rate 83 85 85 Respiratory Rate 20 20 Blood Pressure 84/57 L Pulse Oximetry Oxygen Delivery Fraction of Inspired Oxygen 08/19/24 14:05 08/19/24 14:17 08/19/24 14:47 Temperature Pulse Rate 81 84 84 Respiratory Rate 20 Blood Pressure 96/57 L 86/57 L Pulse Oximetry Oxygen Delivery Fraction of Inspired Oxygen 08/19/24 16:00 08/19/24 16:00 08/19/24 16:00 Temperature Pulse Rate 82 82 82 Respiratory Rate 18 18 Blood Pressure 102/63 Pulse Oximetry Oxygen Delivery Fraction of Inspired Oxygen 08/19/24 16:00 08/19/24 16:00 08/19/24 16:00 Temperature Pulse Rate 79 Respiratory Rate Blood Pressure Pulse Oximetry Oxygen Delivery Mechanical Ventilation Fraction of Inspired Oxygen 65 65 08/19/24 16:00 08/19/24 16:18 08/19/24 16:23 Temperature 38.2 C H Pulse Rate 83 83 Respiratory Rate 17 Blood Pressure 102/63 100/65 Pulse Oximetry 100 Oxygen Delivery Fraction of Inspired Oxygen 65 08/19/24 16:23 08/19/24 16:30 08/19/24 16:45 Temperature Pulse Rate 81 78 82 Respiratory Rate 19 Blood Pressure 101/64 100/65 107/62 Pulse Oximetry Oxygen Delivery Fraction of Inspired Oxygen 08/19/24 17:00 08/19/24 17:15 08/19/24 17:20 Temperature Pulse Rate 81 82 82 Respiratory Rate 21 H Blood Pressure 110/62 112/69 Pulse Oximetry Oxygen Delivery Fraction of Inspired Oxygen 08/19/24 17:20 08/19/24 17:22 08/19/24 17:30 Temperature Pulse Rate 82 80 79 Respiratory Rate 21 H Blood Pressure 114/72 Pulse Oximetry 100 Oxygen Delivery Mechanical Ventilation Fraction of Inspired Oxygen 65 08/19/24 17:45 08/19/24 18:00 08/19/24 18:00 Temperature Pulse Rate 80 80 80 Respiratory Rate Blood Pressure 118/70 124/68 124/68 Pulse Oximetry Oxygen Delivery Fraction of Inspired Oxygen 08/19/24 18:00 08/19/24 18:00 08/19/24 18:00 Temperature Pulse Rate 82 82 82 Respiratory Rate 19 19 Blood Pressure Pulse Oximetry Oxygen Delivery Fraction of Inspired Oxygen 08/19/24 18:00 08/19/24 18:15 08/19/24 18:30 Temperature 37.3 C Pulse Rate 80 78 79 Respiratory Rate 19 Blood Pressure 124/68 119/68 118/72 Pulse Oximetry 100 Oxygen Delivery Fraction of Inspired Oxygen 08/19/24 18:45 08/19/24 18:50 08/19/24 18:54 Temperature Pulse Rate 80 90 79 Respiratory Rate Blood Pressure 123/75 126/73 126/73 Pulse Oximetry Oxygen Delivery Fraction of Inspired Oxygen 08/19/24 18:56 08/19/24 20:00 08/19/24 20:00 Temperature Pulse Rate 79 Respiratory Rate 19 Blood Pressure 122/72 Pulse Oximetry 100 Oxygen Delivery Mechanical Ventilation Fraction of Inspired Oxygen 65 65 08/19/24 20:00 08/19/24 20:00 08/19/24 20:00 Temperature 37.4 C Pulse Rate 79 106 H 106 H Respiratory Rate 18 Blood Pressure 121/71 121/71 Pulse Oximetry 100 Oxygen Delivery Fraction of Inspired Oxygen 08/19/24 20:00 08/19/24 20:00 08/19/24 20:56 Temperature Pulse Rate 106 H 106 H 80 Respiratory Rate 20 20 22 H Blood Pressure Pulse Oximetry Oxygen Delivery Fraction of Inspired Oxygen 08/19/24 20:58 08/19/24 21:07 08/19/24 22:00 Temperature Pulse Rate 78 79 79 Respiratory Rate 20 Blood Pressure Pulse Oximetry 100 Oxygen Delivery Mechanical Ventilation Fraction of Inspired Oxygen 65 08/19/24 22:00 08/19/24 22:00 08/19/24 22:00 Temperature Pulse Rate 79 79 79 Respiratory Rate 18 18 Blood Pressure 115/61 115/61 Pulse Oximetry 100 Oxygen Delivery Fraction of Inspired Oxygen 08/19/24 22:00 08/19/24 22:52 08/19/24 23:53 Temperature Pulse Rate 79 79 78 Respiratory Rate 18 Blood Pressure 115/67 Pulse Oximetry 100 Oxygen Delivery Mechanical Ventilation Fraction of Inspired Oxygen 65 08/19/24 23:53 08/20/24 00:00 08/20/24 00:00 Temperature Pulse Rate 78 Respiratory Rate Blood Pressure 115/67 Pulse Oximetry 100 Oxygen Delivery Mechanical Ventilation Fraction of Inspired Oxygen 65 65 08/20/24 00:00 08/20/24 00:00 08/20/24 00:00 Temperature Pulse Rate 80 80 80 Respiratory Rate 21 H 21 H Blood Pressure 112/61 Pulse Oximetry Oxygen Delivery Fraction of Inspired Oxygen 08/20/24 00:00 08/20/24 00:00 08/20/24 01:46 Temperature 37.8 C H Pulse Rate 80 80 79 Respiratory Rate 21 H 20 Blood Pressure 112/61 Pulse Oximetry 100 Oxygen Delivery Fraction of Inspired Oxygen 08/20/24 01:47 08/20/24 01:56 08/20/24 02:00 Temperature Pulse Rate 78 78 82 Respiratory Rate 20 Blood Pressure Pulse Oximetry 100 Oxygen Delivery Mechanical Ventilation Fraction of Inspired Oxygen 65 08/20/24 02:00 08/20/24 02:00 08/20/24 02:00 Temperature Pulse Rate 82 82 82 Respiratory Rate 18 18 Blood Pressure 113/61 113/61 Pulse Oximetry 100 Oxygen Delivery Fraction of Inspired Oxygen 08/20/24 02:00 08/20/24 04:00 08/20/24 04:00 Temperature Pulse Rate 82 78 78 Respiratory Rate 18 18 18 Blood Pressure Pulse Oximetry Oxygen Delivery Fraction of Inspired Oxygen 08/20/24 04:00 08/20/24 04:00 08/20/24 04:00 Temperature Pulse Rate 78 Respiratory Rate Blood Pressure Pulse Oximetry 100 Oxygen Delivery Mechanical Ventilation Fraction of Inspired Oxygen 65 65 08/20/24 04:00 08/20/24 04:00 08/20/24 04:00 Temperature 37.7 C H Pulse Rate 77 77 77 Respiratory Rate 18 18 Blood Pressure 111/59 L 111/59 L Pulse Oximetry 100 Oxygen Delivery Fraction of Inspired Oxygen 08/20/24 04:00 08/20/24 05:00 08/20/24 05:00 Temperature Pulse Rate 77 79 77 Respiratory Rate 18 Blood Pressure 98/60 L Pulse Oximetry 100 Oxygen Delivery Mechanical Ventilation Fraction of Inspired Oxygen 65 08/20/24 05:15 08/20/24 06:00 08/20/24 06:00 Temperature Pulse Rate 77 83 83 Respiratory Rate 18 Blood Pressure 102/56 L Pulse Oximetry 99 99 Oxygen Delivery Mechanical Ventilation Fraction of Inspired Oxygen 55 08/20/24 06:00 08/20/24 06:00 08/20/24 06:00 Temperature Pulse Rate 83 83 83 Respiratory Rate 18 18 Blood Pressure 77/50 L Pulse Oximetry Oxygen Delivery Fraction of Inspired Oxygen 08/20/24 07:29 08/20/24 08:15 08/20/24 08:27 Temperature 38.1 C H 38.7 C H Pulse Rate 80 80 Respiratory Rate 17 Blood Pressure 104/54 L 110/56 L Pulse Oximetry 100 Oxygen Delivery Fraction of Inspired Oxygen 08/20/24 08:45 Temperature Pulse Rate 82 Respiratory Rate Blood Pressure 112/55 L Pulse Oximetry Oxygen Delivery Fraction of Inspired Oxygen Intake/Output Intake/Output: Intake & Output 08/17/24 08/18/24 08/19/24 08/20/24 23:59 23:59 23:59 23:59 Intake Total 2500.4 2038.5 2655.2 1040.7 Output Total 6178 658 8398 160 Balance 1475.4 1388.5 1555.2 880.7 Meds/Results Medications: Active Medications Generic Name Dose Route Start Last Admin Trade Name Freq PRN Reason Stop Dose Admin Acetaminophen 650 mg 08/18/24 21:48 08/19/24 06:00 Acetaminophen Elixir 325 Mg/10.15 Ml Udc PO 650 mg Q4H PRN Administration Mild Pain (1-3) or Fever Dextrose 12.5 gm 08/18/24 05:53 Dextrose 50% 25 Gm/50 Ml Syringe IV PUSH PRN PRN Hypoglycemia Protocol Epoetin Oliver-epbx 10,000 units 08/20/24 18:38 Epoetin Oliver-Epbx 10,000 Units/Ml Vial IV PUSH 08/20/24 18:39 ONCE ONE Glucagon 1 mg 08/18/24 05:53 Glucagon For Inj 1 Mg Vial IM PRN PRN Hypoglycemia Protocol Glucose 15 gm 08/18/24 05:53 Glucose Oral Gel 15 Gm Of Glucse In 37.5 Gm Tube PO PRN PRN Hypoglycemia Protocol Heparin Sodium (Porcine) 5,500 units 08/18/24 15:08/18/24 23:23 Heparin Sodium 5,000 Units/Ml Vial IV PUSH 5,500 units PRN PRN Administration aPTT less than 55 seconds Heparin Sodium (Porcine) 3,000 units 08/18/24 15:05 08/20/24 03:49 Heparin Sodium 5,000 Units/Ml Vial IV PUSH 3,000 units PRN PRN Administration aPTT 55 - 70 seconds Hydrocortisone Sodium Succinate 100 mg 08/20/24 14:00 Hydrocortisone Sodium Succinate 100 Mg/2 Ml Vial IV PUSH Q8HR TEMI Fentanyl Citrate 2,500 mcg in 250 mls @ 15 mls/hr 08/18/24 00:55 08/20/24 06:00 Fentanyl 2,500 Mcg/Ns 250 Ml IV CONT 150 mcg/hr .[id number] TEMI 15 mls/hr Titration Protocol 150 MCG/HR Midazolam HCl 100 mg in 100 mls @ 6 mls/hr 08/18/24 00:55 08/20/24 06:00 Versed 100 Mg/Ns 100 Ml IV CONT 6 mg/hr .[id number] TEMI 6 mls/hr Titration Protocol 6 MG/HR Cefepime HCl 2 gm in 50 mls @ 100 mls/hr 08/18/24 02:00 08/20/24 02:35 Maxipime 2 Gm/Ns 50 Ml IVPB 100 mls/hr Q24H TEMI Administration Dextrose 1,000 mls @ 100 mls/hr 08/18/24 05:53 Dextrose 5% 1,000 Ml IVPB PRN PRN Hypoglycemia Protocol Heparin Sodium/Dextrose 25,000 units in 250 mls @ 16 mls/hr 08/18/24 15:05 08/20/24 03:40 Heparin Sodium/D5w 100 Units/Ml IV CONT 1,600 units/hr .[id number] TEMI 16 mls/hr Titration Protocol 1,600 UNITS/HR Norepinephrine Bitartrate 8 mg in 250 mls @ 20.625 mls/hr 08/19/24 12:30 08/20/24 06:00 Levophed 8 Mg/D5w 250 Ml IV CONT 11 mcg/min .Q12H8M TEMI 20.63 mls/hr Titration Protocol 11 MCG/MIN Albumin Human 50 mls @ 999 mls/hr 08/19/24 13:39 08/19/24 17:12 Albutein IVPB 08/20/24 13:38 999 mls/hr Q10M PRN Administration HYPOTENSION Insulin Aspart 4 - 8 units 08/18/24 06:00 08/20/24 06:59 Insulin Aspart (*Bkc) 100 Units/Ml SUB-Q 4 units Q6HR TEMI Administration Protocol Insulin Glargine 20 units 08/20/24 21:00 Insulin Glargine (*Bkc) 100 Units/Ml SUB-Q HS TEMI Ipratropium [place] 0.5 mg 08/20/24 07:40 Ipratropium Br 0.02% Inh Soln 0.5 Mg/2.5 Ml Vial INHALATION Q6HRT PRN Wheezing Levalbuterol HCl 1.25 mg 08/20/24 07:40 Levalbuterol Neb 1.25 Mg/3 Ml INHALATION Q6HRT PRN Wheezing Midazolam HCl 2 mg 08/19/24 02:59 08/19/24 05:16 Midazolam Hcl (*Crx) 2 Mg/2 Ml Vial IV PUSH 2 mg Q1HR PRN Administration Agitation Multi-Ingred Cream/Lotion/Oil/Oint 1 applic 08/18/24 09:00 08/19/24 20:26 Mineral Oil/White Petrolatum Ointment EACH EYE 1 applic Q12HR TEMI Administration Mupirocin 1 applic 08/15/24 21:00 08/19/24 20:27 Mupirocin 2% Oint 22 Gm Tube EACH NARE 1 applic Q12HR TEMI Administration Pantoprazole Sodium 40 mg 08/19/24 09:00 08/19/24 08:16 Pantoprazole Sodium Iv 40 Mg Vial IV PUSH 40 mg QAM TEMI Administration Polyethylene Glycol 17 gm 08/15/24 22:20 Polyethylene Glycol 3350 17 Gm Powd.Pack PO DAILY PRN constipation Sodium Chloride 10 ml 08/19/24 22:00 08/20/24 07:01 Central Line Flush IV PUSH 10 ml Q8HR TEMI Administration Sodium Chloride 20 ml 08/19/24 18:43 Central Line Flush IV PUSH PRN PRN after blood draws Vancomycin HCl 1 each 08/18/24 07:24 Vancomycin For Acute Kidney Injury IVPB PRN PRN Vancomycin Protocol Radiology Results: ITS Impressions Chest CTA 08/15/24 11:11 IMPRESSION: No pulmonary embolus. No thoracic aortic dissection. Right upper lobe infiltrate with patchy bilateral airspace disease, likely inflammatory/congestive rather than infectious. Small bilateral pleural effusions with adjacent atelectasis. Abdomen X-Ray 08/18/24 06:03 Impression: NG tube in satisfactory position. Chest/Abdomen/Pelvis CT 08/18/24 12:28 IMPRESSION: 1. Significant interval progression in an lobar pneumonia along with increasing small bilateral pleural effusions. 2. No acute intra-abdominal/pelvic process. 3. Subtle 2.5 cm mass at the upper pole of the right kidney consistent with provided history of renal tumor. 4. Calcification is at the bilateral kidneys which appear linear and likely atherosclerotic although could not exclude nonobstructing nephrolithiasis. No hydronephrosis in either kidney. 5. Unchanged mild likely reactive mediastinal lymphadenopathy. 6. Endotracheal tube, nasogastric tube and suprapubic Butt catheter all in expected positions. Venous Doppler Study 08/18/24 14:42 IMPRESSION: 1. Bilateral [id number] deep venous thrombosis in the left and right posterior tibial veins. Findings were discussed with the ICU nurse Carlos Herrera at 2:45 PM. Renal Ultrasound 08/19/24 14:10 IMPRESSION: No hydronephrosis or renal calculi. Findings suggesting medical renal disease. Findings within the upper pole of the right kidney consistent with patient's history, as detailed above. Chest X-Ray 08/20/24 06:23 Impression: Moderate pulmonary edema pattern with small bilateral pleural effusions. Support tubes, as above. Labs Labs: Laboratory Results - last 24 hr 08/19/24 08/19/24 08/19/24 07:00 12:10 18:16 WBC RBC Hgb Hct MCV MCH MCHC RDW Plt Count MPV APTT Puncture Site ABG pH ABG pCO2 ABG pO2 ABG PO2/FiO2 Ratio ABG HCO3 ABG O2 Saturation ABG O2 Content ABG Base Excess A-a Gradient Oxyhemoglobin Carboxyhemoglobin Methemoglobin Reduced Hemoglobin Total Hemoglobin O2 Delivery Device O2 Liters/Min Minute Volume Vent Rate Vent Mode FiO2 Tidal Volume PEEP Peak Inspir Pressure Pressure Support Sodium Potassium Chloride Carbon Dioxide Anion Gap BUN Creatinine Estim Creat Clear Calc Estimated GFR Glucose POC Capillary Glucose 241 H 174 H Calcium Phosphorus Magnesium Total Bilirubin AST ALT Alkaline Phosphatase Total Protein Albumin Urine Eosinophils U Random Total Protein Ur Random Sodium Ur Random Urea Urine Total Volume Urine Creatinine Protein/Creat Ratio 2 Hep Bs Antigen Negative Hep Bs Antibody Negative 08/19/24 08/20/24 08/20/24 20:18 00:07 00:18 WBC RBC Hgb Hct MCV MCH MCHC RDW Plt Count MPV APTT 123.7 H Puncture Site ABG pH ABG pCO2 ABG pO2 ABG PO2/FiO2 Ratio ABG HCO3 ABG O2 Saturation ABG O2 Content ABG Base Excess A-a Gradient Oxyhemoglobin Carboxyhemoglobin Methemoglobin Reduced Hemoglobin Total Hemoglobin O2 Delivery Device O2 Liters/Min Minute Volume Vent Rate Vent Mode FiO2 Tidal Volume PEEP Peak Inspir Pressure Pressure Support Sodium Potassium Chloride Carbon Dioxide Anion Gap BUN Creatinine Estim Creat Clear Calc Estimated GFR Glucose POC Capillary Glucose 241 H Calcium Phosphorus Magnesium Total Bilirubin AST ALT Alkaline Phosphatase Total Protein Albumin Urine Eosinophils None seen U Random Total Protein 149 Ur Random Sodium Ur Random Urea Urine Total Volume Urine Creatinine Protein/Creat Ratio 2 Hep Bs Antigen Hep Bs Antibody 08/20/24 08/20/24 08/20/24 00:18 00:18 03:08 WBC RBC Hgb Hct MCV MCH MCHC RDW Plt Count MPV APTT 55.3 H Puncture Site ABG pH ABG pCO2 ABG pO2 ABG PO2/FiO2 Ratio ABG HCO3 ABG O2 Saturation ABG O2 Content ABG Base Excess A-a Gradient Oxyhemoglobin Carboxyhemoglobin Methemoglobin Reduced Hemoglobin Total Hemoglobin O2 Delivery Device O2 Liters/Min Minute Volume Vent Rate Vent Mode FiO2 Tidal Volume PEEP Peak Inspir Pressure Pressure Support Sodium Potassium Chloride Carbon Dioxide Anion Gap BUN Creatinine Estim Creat Clear Calc Estimated GFR Glucose POC Capillary Glucose Calcium Phosphorus Magnesium Total Bilirubin AST ALT Alkaline Phosphatase Total Protein Albumin Urine Eosinophils U Random Total Protein Cancelled Ur Random Sodium 35 Ur Random Urea 147 Urine Total Volume Cancelled Urine Creatinine 163.5 Cancelled Protein/Creat Ratio 2 0.91 H Hep Bs Antigen Hep Bs Antibody 08/20/24 08/20/24 08/20/24 04:48 06:20 06:58 WBC 9.4 RBC 2.82 L Hgb 7.2 L Hct 24.1 L MCV 85.5 MCH 25.5 L MCHC 29.9 L RDW 17.9 H Plt Count 165 MPV 11.9 H APTT Puncture Site Left radial ABG pH 7.356 ABG pCO2 46.0 H ABG pO2 111.1 H ABG PO2/FiO2 Ratio 1.71 ABG HCO3 25.2 ABG O2 Saturation 97.9 ABG O2 Content 11.3 L ABG Base Excess -0.4 A-a Gradient 302.3 Oxyhemoglobin 97.5 Carboxyhemoglobin 0.3 Methemoglobin 0.1 Reduced Hemoglobin 2.1 Total Hemoglobin 8.1 L O2 Delivery Device Ventilator O2 Liters/Min Not Reportable Minute Volume Not Reportable Vent Rate 18 Vent Mode Cmv FiO2 65 Tidal Volume 380 PEEP 10 Peak Inspir Pressure Not Reportable Pressure Support Not Reportable Sodium 139 Potassium 4.1 Chloride 100 Carbon Dioxide 29 Anion Gap 10 BUN 50 H D Creatinine 3.31 H Estim Creat Clear Calc 14 Estimated GFR 13 L Glucose 264 H POC Capillary Glucose 246 H Calcium 8.1 L Phosphorus 4.3 Magnesium 2.1 Total Bilirubin 0.6 AST 865 H ALT 420 H Alkaline Phosphatase 99 Total Protein 6.0 L Albumin 3.5 Urine Eosinophils U Random Total Protein Ur Random Sodium Ur Random Urea Urine Total Volume Urine Creatinine Protein/Creat Ratio 2 Hep Bs Antigen Hep Bs Antibody Quality VTE Prophylaxis VTE prophylaxis: mechanical ordered and pharmacologic ordered
[2024-08-20] MEDS: PANTOPRAZOLE SODIUM IV 40 MG VIAL IV PUSH (09:20)
[2024-08-20] MEDS: INSULIN GLARGINE (*BKC) 100 UNITS/ML 10 UNITS SUB-Q (09:20)
[2024-08-20] MEDS: MINERAL OIL/WHITE PETROLATUM OINTMENT 1 APPLIC EACH EYE ×2 (09:20→20:38)
[2024-08-20] MEDS: MUPIROCIN 2% OINT 22 GM TUBE 1 APPLIC EACH NARE ×2 (09:20→20:38)
--- NOTE | 2024-08-20 09:40 | P.PNNP_ITS ---
Progress Note: A&P Assessment and Plan (1) Acute kidney injury: Code(s): N17.9 - Acute kidney failure, unspecified Status: Acute Assessment and Plan: * multifactorial etiology: * relative hypotension/hemodynamic instability * infection/early sepsis * IV diuresis/diuretics * contrast exposure (CTA chest on 08/15) * hypoxia * decline in urine output at this time * evaluation to date noted: * renal u/s without obstruction (but medical renal disease) * CPK mildly elevated (but not enough to affect kidney function) * urine electrolytes prerenal * moderate proteinuria * urine eosinophils negative * HD today * HD yesterday and plan HD tomorrow as well * follow trend of repeat labs and UOP for potential renal recovery (2) Chronic kidney disease, stage 3: Code(s): N18.30 - Chronic kidney disease, stage 3 unspecified Status: Chronic Assessment and Plan: * baseline creatinine runs ~ 1.1 - 1.6mg/dl from early 2022 (from review of [facility] records) * this causes her to fluctuate between CKD stage 3A and stage 3B * presumably secondary to diabetes, hypertension, recurrent UTIs, and age- related change (3) Septic shock: Code(s): A41.9 - Sepsis, unspecified organism; R65.21 - Severe sepsis with septic shock Status: Acute Assessment and Plan: * presumably due to pneumonia * on vasopressor therapy to maintain MAP * stress dose steroids * follow trend of hemodynamics (4) Acute respiratory failure with hypoxia: Code(s): J96.01 - Acute respiratory failure with hypoxia Status: Acute Assessment and Plan: * due to pneumonia and pulmonary edema/CHF * on full ventilator support * further imaging of chest noted * continue current therapy (bronchodilators, antibiotics...etc) (5) Pneumonia: Code(s): J18.9 - Pneumonia, unspecified organism Status: Acute Assessment and Plan: * suggestive by admission * follow culture data * on antibiotics (6) Congestive heart failure: Code(s): I50.9 - Heart failure, unspecified Status: Acute Assessment and Plan: * imaging suggestive of pulmonary edema * Echo results (from 08/16) noted: * normal biventricular size and systolic function * no significant valvular abnormalities * was receiveing IV diuretics prior to transfer to ICU * this is on hold due to #1 and hypotension * fluid removal with dialysis as tolerated * Cardiology following (7) Non-ST elevation myocardial infarction (NSTEMI): Code(s): I21.4 - Non-ST elevation (NSTEMI) myocardial infarction Status: Acute Assessment and Plan: * elevated troponins noted * Cardiolgy folloiwing * known history of coronary disease status post stenting * suspect demand ischemia in setting of her current respiratory failure/pneumonia * s/p heparin drip x 48 hours * continue medical management (8) DVT (deep venous thrombosis): Code(s): I82.409 - Acute embolism and thrombosis of unspecified deep veins of unspecified lower extremity Status: Acute Assessment and Plan: * as noted by venous dopplers: * bilateral [id number] deep venous thrombosis in the left and right posterior tibial veins * on heparin infusion (9) Right renal mass: Code(s): N28.89 - Other specified disorders of kidney and ureter Status: Acute Assessment and Plan: * suspicious for renal cell carcinoma * following with [facility] Urology * removal would require total right nepherectomy which would be high risk given patient's age * referred to radiation oncology for possible radiation therapy (10) Type 2 diabetes mellitus: Code(s): E11.9 - Type 2 diabetes mellitus without complications Status: Chronic Assessment and Plan: * follow accu-cheks * glycemic control per tax evaluator/hospitalist Will continue to follow. L Subjective Date/time seen: 08/20/24 9:40 Interval history: Follow-up for acute kidney injury/acute renal failure on chronic kidney disease. Tolerated dialysis yesterday afternoon and tolerating dialysis at the time of my visit (seen on HD at 9:30AM); remains intubated/sedated and on mechanical ventilation; remains on vasopressor therapy to maintain MAP/blood pressure. Exam 2 Narrative: General: elderly female intubated/sedated and on mechanical ventilation Heart: normal S1 and S2; no rub Lungs: coarse breath sounds throughout Abdomen: soft, nontender, nondistended, positive bowel sounds Extremities: no cyanosis or clubbing; 1+ edema Skin: warm and intact Objective Data Vital Signs Vital Signs: Vital Signs Temp Pulse Resp BP Pulse Ox O2 Del Method FiO2 08/20/24 09:30 90 116/62 08/20/24 09:15 88 113/58 L 08/20/24 09:00 83 20 113/58 L 100 08/20/24 09:00 83 112/58 L 08/20/24 08:45 82 112/55 L 08/20/24 08:44 83 100 Mechanical Ventilation 50 08/20/24 08:27 80 110/56 L 08/20/24 08:15 101.7 F H 80 17 104/54 L 100 08/20/24 08:00 50 08/20/24 08:00 85 08/20/24 07:29 100.5 F H 08/20/24 06:00 83 18 08/20/24 06:00 83 18 08/20/24 06:00 83 77/50 L 08/20/24 06:00 83 18 102/56 L 99 08/20/24 06:00 83 08/20/24 05:15 77 99 Mechanical Ventilation 55 08/20/24 05:00 77 100 Mechanical Ventilation 65 08/20/24 05:00 79 98/60 L 08/20/24 04:00 77 18 08/20/24 04:00 77 18 08/20/24 04:00 77 111/59 L 08/20/24 04:00 99.8 F H 77 18 111/59 L 100 08/20/24 04:00 65 08/20/24 04:00 78 08/20/24 04:00 100 Mechanical Ventilation 65 08/20/24 04:00 78 18 08/20/24 04:00 78 18 08/20/24 02:00 82 18 08/20/24 02:00 82 113/61 08/20/24 02:00 82 18 08/20/24 02:00 82 18 113/61 100 08/20/24 02:00 82 08/20/24 01:56 78 20 08/20/24 01:47 78 100 Mechanical Ventilation 65 08/20/24 01:46 79 20 08/20/24 00:00 80 08/20/24 00:00 100.0 F H 80 21 H 112/61 100 08/20/24 00:00 80 21 H 08/20/24 00:00 80 112/61 08/20/24 00:00 80 21 H 08/20/24 00:00 65 08/20/24 00:00 100 Mechanical Ventilation 65 08/19/24 23:53 78 115/67 08/19/24 23:53 78 115/67 08/19/24 22:52 79 100 Mechanical Ventilation 65 08/19/24 22:00 79 18 08/19/24 22:00 79 115/61 08/19/24 22:00 79 18 08/19/24 22:00 79 18 115/61 100 08/19/24 22:00 79 08/19/24 21:07 79 20 08/19/24 20:58 78 100 Mechanical Ventilation 65 08/19/24 20:56 80 22 H 08/19/24 20:00 106 H 20 08/19/24 20:00 106 H 20 08/19/24 20:00 106 H 121/71 08/19/24 20:00 106 H 08/19/24 20:00 99.3 F 79 18 121/71 100 08/19/24 20:00 65 08/19/24 20:00 100 Mechanical Ventilation 65 08/19/24 18:56 79 19 122/72 08/19/24 18:54 79 126/73 08/19/24 18:50 90 126/73 08/19/24 18:45 80 123/75 08/19/24 18:30 79 118/72 08/19/24 18:15 78 119/68 08/19/24 18:00 99.2 F 80 19 124/68 100 08/19/24 18:00 82 08/19/24 18:00 82 19 08/19/24 18:00 82 19 08/19/24 18:00 80 124/68 08/19/24 18:00 80 124/68 08/19/24 17:45 80 118/70 08/19/24 17:30 79 114/72 08/19/24 17:22 80 100 Mechanical Ventilation 65 08/19/24 17:20 82 21 H 08/19/24 17:20 82 21 H 08/19/24 17:15 82 112/69 08/19/24 17:00 81 110/62 08/19/24 16:45 82 107/62 08/19/24 16:30 78 100/65 08/19/24 16:23 81 19 101/64 08/19/24 16:23 65 08/19/24 16:18 83 100/65 08/19/24 16:00 100.8 F H 83 17 102/63 100 08/19/24 16:00 79 08/19/24 16:00 65 0403/25 16:00 Mechanical Ventilation 65 08/19/24 16:00 82 18 08/19/24 16:00 82 102/63 08/19/24 16:00 82 18 08/19/24 14:47 84 86/57 L 08/19/24 14:17 84 96/57 L 08/19/24 14:05 81 20 08/19/24 14:04 85 20 08/19/24 14:04 85 20 08/19/24 14:03 83 84/57 L 08/19/24 14:00 81 19 08/19/24 14:00 81 19 08/19/24 14:00 81 08/19/24 14:00 98.3 F 81 11 L 84/57 L 97 08/19/24 13:56 81 97 Mechanical Ventilation 65 08/19/24 13:54 83 21 H 08/19/24 13:33 86 86/54 L 08/19/24 13:20 71 85/58 L 08/19/24 12:53 84 20 08/19/24 12:51 86 82/57 L 08/19/24 12:00 95 08/19/24 12:00 65 08/19/24 12:00 Mechanical Ventilation 65 08/19/24 12:00 106 H 92/63 L 08/19/24 12:00 106 H 18 08/19/24 12:00 106 H 20 08/19/24 12:00 101.0 F H 92 18 92/63 L 93 Intake/Output Intake/Output: Intake & Output 08/17/24 08/18/24 08/19/24 08/20/24 23:59 23:59 23:59 23:59 Intake Total 2500.4 2038.5 2655.2 1167.5 Output Total 6809 296 6533 160 Balance 1475.4 1388.5 1555.2 1007.5 Meds/Results Medications: Active Medications Generic Name Dose Route Start Last Admin Trade Name Freq PRN Reason Stop Dose Admin Acetaminophen 650 mg 08/18/24 21:48 08/19/24 06:00 Acetaminophen Elixir 325 Mg/10.15 Ml Udc PO 650 mg Q4H PRN Administration Mild Pain (1-3) or Fever Dextrose 12.5 gm 08/18/24 05:53 Dextrose 50% 25 Gm/50 Ml Syringe IV PUSH PRN PRN Hypoglycemia Protocol Epoetin Oliver-epbx 10,000 units 08/20/24 18:38 Epoetin Oliver-Epbx 10,000 Units/Ml Vial IV PUSH 08/20/24 18:39 ONCE ONE Glucagon 1 mg 08/18/24 05:53 Glucagon For Inj 1 Mg Vial IM PRN PRN Hypoglycemia Protocol Glucose 15 gm 08/18/24 05:53 Glucose Oral Gel 15 Gm Of Glucse In 37.5 Gm Tube PO PRN PRN Hypoglycemia Protocol Heparin Sodium (Porcine) 5,500 units 08/18/24 15:05 08/18/24 23:23 Heparin Sodium 5,000 Units/Ml Vial IV PUSH 5,500 units PRN PRN Administration aPTT less than 55 seconds Heparin Sodium (Porcine) 3,000 units 08/18/24 15:05 08/20/24 03:49 Heparin Sodium 5,000 Units/Ml Vial IV PUSH 3,000 units PRN PRN Administration aPTT 55 - 70 seconds Hydrocortisone Sodium Succinate 100 mg 08/20/24 14:00 Hydrocortisone Sodium Succinate 100 Mg/2 Ml Vial IV PUSH Q8HR TEMI Fentanyl Citrate 2,500 mcg in 250 mls @ 15 mls/hr 08/18/24 00:55 08/20/24 10:00 Fentanyl 2,500 Mcg/Ns 250 Ml IV CONT 150 mcg/hr .[id number] TEMI 15 mls/hr Administration Protocol 150 MCG/HR Midazolam HCl 100 mg in 100 mls @ 6 mls/hr 08/18/24 00:55 08/20/24 06:00 Versed 100 Mg/Ns 100 Ml IV CONT 6 mg/hr .[id number] TEMI 6 mls/hr Titration Protocol 6 MG/HR Dextrose 1,000 mls @ 100 mls/hr 08/18/24 05:53 Dextrose 5% 1,000 Ml IVPB PRN PRN Hypoglycemia Protocol Heparin Sodium/Dextrose 25,000 units in 250 mls @ 16 mls/hr 08/18/24 15:05 08/20/24 07:51 Heparin Sodium/D5w 100 Units/Ml IV CONT 1,600 units/hr .[id number] TEMI 16 mls/hr Administration Protocol 1,600 UNITS/HR Norepinephrine Bitartrate 8 mg in 250 mls @ 20.625 mls/hr 08/19/24 12:30 08/20/24 06:00 Levophed 8 Mg/D5w 250 Ml IV CONT 11 mcg/min .Q12H8M TEMI 20.63 mls/hr Titration Protocol 11 MCG/MIN Albumin Human 50 mls @ 999 mls/hr 08/19/24 13:39 08/19/24 17:12 Albutein IVPB 08/20/24 13:38 999 mls/hr Q10M PRN Administration HYPOTENSION Cefepime HCl 1 gm in 50 mls @ 100 mls/hr 08/20/24 21:00 Maxipime 1 Gm/Ns 50 Ml IVPB QHS TEMI Insulin Aspart 4 - 8 units 08/18/24 06:00 08/20/24 06:59 Insulin Aspart (*Bkc) 100 Units/Ml SUB-Q 4 units Q6HR TEMI Administration Protocol Insulin Glargine 20 units 08/20/24 21:00 Insulin Glargine (*Bkc) 100 Units/Ml SUB-Q HS TEMI Ipratropium Aquilla 0.5 mg 08/20/24 07:40 Ipratropium Br 0.02% Inh Soln 0.5 Mg/2.5 Ml Vial INHALATION Q6HRT PRN Wheezing Levalbuterol HCl 1.25 mg 08/20/24 07:40 Levalbuterol Neb 1.25 Mg/3 Ml INHALATION Q6HRT PRN Wheezing Midazolam HCl 2 mg 08/19/24 02:59 08/19/24 05:16 Midazolam Hcl (*Crx) 2 Mg/2 Ml Vial IV PUSH 2 mg Q1HR PRN Administration Agitation Multi-Ingred Cream/Lotion/Oil/Oint 1 applic 08/18/24 09:00 08/20/24 09:20 Mineral Oil/White Petrolatum Ointment EACH EYE 1 applic Q12HR TEMI Administration Mupirocin 1 applic 08/15/24 21:00 08/20/24 09:20 Mupirocin 2% Oint 22 Gm Tube EACH NARE 1 applic Q12HR TEMI Administration Pantoprazole Sodium 40 mg 08/19/24 09:00 08/20/24 09:20 Pantoprazole Sodium Iv 40 Mg Vial IV PUSH 40 mg QAM TEMI Administration Polyethylene Glycol 17 gm 08/15/24 22:20 Polyethylene Glycol 3350 17 Gm Powd.Pack PO DAILY PRN constipation Sodium Chloride 10 ml 04/03/25 22:00 08/20/24 07:01 Central Line Flush IV PUSH 10 ml Q8HR TEMI Administration Sodium Chloride 20 ml 08/19/24 18:43 Central Line Flush IV PUSH PRN PRN after blood draws Vancomycin HCl 1 each 08/20/24 09:39 Vancomycin For Hemodialysis IVPB PRN PRN Vancomycin Protocol Radiology Results: ITS Impressions Chest CTA 08/15/24 11:11 IMPRESSION: No pulmonary embolus. No thoracic aortic dissection. Right upper lobe infiltrate with patchy bilateral airspace disease, likely inflammatory/congestive rather than infectious. Small bilateral pleural effusions with adjacent atelectasis. Abdomen X-Ray 08/18/24 06:03 Impression: NG tube in satisfactory position. Chest/Abdomen/Pelvis CT 08/18/24 12:28 IMPRESSION: 1. Significant interval progression in an lobar pneumonia along with increasing small bilateral pleural effusions. 2. No acute intra-abdominal/pelvic process. 3. Subtle 2.5 cm mass at the upper pole of the right kidney consistent with provided history of renal tumor. 4. Calcification is at the bilateral kidneys which appear linear and likely atherosclerotic although could not exclude nonobstructing nephrolithiasis. No hydronephrosis in either kidney. 5. Unchanged mild likely reactive mediastinal lymphadenopathy. 6. Endotracheal tube, nasogastric tube and suprapubic Butt catheter all in expected positions. Venous Doppler Study 08/18/24 14:42 IMPRESSION: 1. Bilateral [id number] deep venous thrombosis in the left and right posterior tibial veins. Findings were discussed with the ICU nurse Carlos Herrera at 2:45 PM. Renal Ultrasound 08/19/24 14:10 IMPRESSION: No hydronephrosis or renal calculi. Findings suggesting medical renal disease. Findings within the upper pole of the right kidney consistent with patient's history, as detailed above. Chest X-Ray 08/20/24 06:23 Impression: Moderate pulmonary edema pattern with small bilateral pleural effusions. Support tubes, as above. Labs Labs: Laboratory Tests 08/20/24 06:20 08/20/24 06:20 Calcium 8.1 L Phosphorus 4.3 Magnesium 2.1 Total Bilirubin 0.6 AST 865 H ALT 420 H Alkaline Phosphatase 99 Total Protein 6.0 L Albumin 3.5
[2024-08-20] MEDS: FENTANYL 2,500MCG/NS250ML(*CRX 2,500 MCG/250 ML BAG 15 MCG IV CONT (10:00)
[2024-08-20 10:25] LABS: Vancomycin Random 14.5 ug/mL (10-20)
[2024-08-20 10:26] LABS: Partial Thromboplastin Time 58.5 Seconds (22.3-36.8)
--- NOTE | 2024-08-20 10:35 | PM.PNCARD ---
Progress Note: A&P Assessment and Plan (1) Acute respiratory failure with hypoxia: Code(s): J96.01 - Acute respiratory failure with hypoxia Status: Acute (2) Congestive heart failure: Code(s): I50.9 - Heart failure, unspecified Status: Acute Plan 84-year-old with CAD status post PCI, diabetes, and hypertension who initially presented with cough and congestion in setting of fevers Acute worsening hypoxic respiratory failure with severe respiratory alkalosis -Intubated 08/18. CT with significant interval progression in a lobar pneumonia along with increasing small bilateral pleural effusions. -Antibiotics per ICU team. -Diuretics stopped as renal function significantly worsened, probably the pneumonia playing a bigger role in respiratory failure than CHF. Shock: -Concern for septic shock, on pressor support. Non ST-elevation SC -Known CAD with stents in the OM1, OM2, RPDA. Has PATIENT'S LIBRARIAN of the mid-distal LAD; previously failed PATIENT'S LIBRARIAN PCI in the past. -Likely demand in setting of her recent respiratory infection -Treated with Heparin drip x 48 hours -Continue aspirin 81 mg daily, rosuvastatin 5 mg every evening. Metoprolol succinate 25 mg daily, Imdur 30mg daily have been placed on hold now due to shock. -TTE with normal LVEF without appreciable wall motion abnormalities. -Per review of [facility] notes, her primary Cardiology team had stopped Plavix as she was falling frequently. -At this time, will plan for medical management. Acute on chronic heart failure with preserved LVEF: -Diuretics stopped as renal function significantly worsened, probably the pneumonia playing a bigger role in respiratory failure than CHF. -Has history of frequent UTI, therefore, will not add SGLT2-inhibitor at this time. Hypertension -Antihypertensives on hold due to pressor requirement. Hyperlipidemia -Continue rosuvastatin 5 mg every evening Anemia -Has significant anemia. Management/workup as per primary team. CHAYA on CKD -SCr worsening. Diuretics have been placed on hold. Started on dialysis Pneumonia: -On antibiotics per Hospitalist. Bilateral below the knee DVT in the left and right posterior tibial veins. -Found on venous Doppler 08/18. -On Heparin drip Cardiology will sign off at this time. Please call us back if needed. Recommendations and plan discussed with ICU Physician. Subjective Date/time seen: 08/20/24 10:35 Interval history: Reason for visit: Elevated troponins, CHF HPI: 84-year-old with CAD status post PCI, diabetes, and hypertension presented with cough and congestion in setting of fevers. She has been having chest discomfort whenever she coughs. She is unsure when she started to feel unwell with her coughing and sputum production. However prior to the onset of the symptoms, she lives at home with her and typically would be able to ambulate within the confines of her home without any cardiopulmonary difficulties. She denies any syncopal events. Her chest pain does not resolve with sublingual nitroglycerin and worsens with coughing. Date of service 08/17: Overnight, she had worsening shortness of breath with increasing oxygen requirements. Was placed on HFNC, given dose of IV Lasix. On broad spectrum antibiotics. She reports feeling better today. Denies chest pain. Date of service 08/18: Overnight, patient decompensated. Had acute worsening hypoxic respiratory failure with severe respiratory alkalosis. Having recurrent fevers. CXR concerning for worsening pulmonary edema. Given Lasix. No improvement on BIPAP. She ended up being intubated and is now in the ICU. Date of service 08/19: Remains intubated/sedated. Renal function worsening, starting dialysis today. Date of service 08/20: Remains intubated. On dialysis this morning. Review of Systems Review of Systems: ROS unobtainable: Yes unobtainable due to endotracheal tube Exam Const: Other: Critically ill patient, intubated/sedated. HENMT: Other: OETT in place Resp: Other: On mechanical ventilation Cardio: Rate: regular rate Rhythm: regular rhythm Neuro: Other: Sedated Objective Data Vital Signs Vital Signs: Vital Signs - 24 hr 08/19/24 12:08/19/24 12:08/19/24 12:00 Temperature 38.3 C H Pulse Rate 92 106 H 106 H Respiratory Rate 18 20 18 Blood Pressure 92/63 L Pulse Oximetry 93 Oxygen Delivery Fraction of Inspired Oxygen 08/19/24 12:08/19/24 12:00 08/19/24 12:00 Temperature Pulse Rate 106 H Respiratory Rate Blood Pressure 92/63 L Pulse Oximetry Oxygen Delivery Mechanical Ventilation Fraction of Inspired Oxygen 65 65 08/19/24 12:00 08/19/24 12:51 08/19/24 12:53 Temperature Pulse Rate 95 86 84 Respiratory Rate 20 Blood Pressure 82/57 L Pulse Oximetry Oxygen Delivery Fraction of Inspired Oxygen 08/19/24 13:20 08/19/24 13:33 08/19/24 13:54 Temperature Pulse Rate 71 86 83 Respiratory Rate 21 H Blood Pressure 85/58 L 86/54 L Pulse Oximetry Oxygen Delivery Fraction of Inspired Oxygen 08/19/24 13:56 08/19/24 14:00 08/19/24 14:00 Temperature 36.8 C Pulse Rate 81 81 81 Respiratory Rate 11 L Blood Pressure 84/57 L Pulse Oximetry 97 97 Oxygen Delivery Mechanical Ventilation Fraction of Inspired Oxygen 65 08/19/24 14:00 08/19/24 14:00 08/19/24 14:03 Temperature Pulse Rate 81 81 83 Respiratory Rate 19 19 Blood Pressure 84/57 L Pulse Oximetry Oxygen Delivery Fraction of Inspired Oxygen 08/19/24 14:04 08/19/24 14:04 08/19/24 14:05 Temperature Pulse Rate 85 85 81 Respiratory Rate 20 20 20 Blood Pressure Pulse Oximetry Oxygen Delivery Fraction of Inspired Oxygen 08/19/24 14:17 08/19/24 14:47 08/19/24 16:00 Temperature Pulse Rate 84 84 82 Respiratory Rate 18 Blood Pressure 96/57 L 86/57 L Pulse Oximetry Oxygen Delivery Fraction of Inspired Oxygen 08/19/24 16:00 08/19/24 16:00 08/19/24 16:00 Temperature Pulse Rate 82 82 Respiratory Rate 18 Blood Pressure 102/63 Pulse Oximetry Oxygen Delivery Mechanical Ventilation Fraction of Inspired Oxygen 65 08/19/24 16:00 08/19/24 16:00 08/19/24 16:00 Temperature 38.2 C H Pulse Rate 79 83 Respiratory Rate 17 Blood Pressure 102/63 Pulse Oximetry 100 Oxygen Delivery Fraction of Inspired Oxygen 65 08/19/24 16:18 08/19/24 16:23 08/19/24 16:23 Temperature Pulse Rate 83 81 Respiratory Rate 19 Blood Pressure 100/65 101/64 Pulse Oximetry Oxygen Delivery Fraction of Inspired Oxygen 65 08/19/24 16:30 08/19/24 16:45 08/19/24 17:00 Temperature Pulse Rate 78 82 81 Respiratory Rate Blood Pressure 100/65 107/62 110/62 Pulse Oximetry Oxygen Delivery Fraction of Inspired Oxygen 08/19/24 17:15 08/19/24 17:20 08/19/24 17:20 Temperature Pulse Rate 82 82 82 Respiratory Rate 21 H 21 H Blood Pressure 112/69 Pulse Oximetry Oxygen Delivery Fraction of Inspired Oxygen 08/19/24 17:22 08/19/24 17:30 08/19/24 17:45 Temperature Pulse Rate 80 79 80 Respiratory Rate Blood Pressure 114/72 118/70 Pulse Oximetry 100 Oxygen Delivery Mechanical Ventilation Fraction of Inspired Oxygen 65 08/19/24 18:00 08/19/24 18:00 08/19/24 18:00 Temperature Pulse Rate 80 80 82 Respiratory Rate 19 Blood Pressure 124/68 124/68 Pulse Oximetry Oxygen Delivery Fraction of Inspired Oxygen 08/19/24 18:00 08/19/24 18:00 08/19/24 18:00 Temperature 37.3 C Pulse Rate 82 82 80 Respiratory Rate 19 19 Blood Pressure 124/68 Pulse Oximetry 100 Oxygen Delivery Fraction of Inspired Oxygen 08/19/24 18:15 08/19/24 18:30 08/19/24 18:45 Temperature Pulse Rate 78 79 80 Respiratory Rate Blood Pressure 119/68 118/72 123/75 Pulse Oximetry Oxygen Delivery Fraction of Inspired Oxygen 08/19/24 18:50 08/19/24 18:54 08/19/24 18:56 Temperature Pulse Rate 90 79 79 Respiratory Rate 19 Blood Pressure 126/73 126/73 122/72 Pulse Oximetry Oxygen Delivery Fraction of Inspired Oxygen 08/19/24 20:00 08/19/24 20:00 08/19/24 20:00 Temperature 37.4 C Pulse Rate 79 Respiratory Rate 18 Blood Pressure 121/71 Pulse Oximetry 100 100 Oxygen Delivery Mechanical Ventilation Fraction of Inspired Oxygen 65 65 08/19/24 20:00 08/19/24 20:00 08/19/24 20:00 Temperature Pulse Rate 106 H 106 H 106 H Respiratory Rate 20 Blood Pressure 121/71 Pulse Oximetry Oxygen Delivery Fraction of Inspired Oxygen 08/19/24 20:00 08/19/24 20:56 08/19/24 20:58 Temperature Pulse Rate 106 H 80 78 Respiratory Rate 20 22 H Blood Pressure Pulse Oximetry 100 Oxygen Delivery Mechanical Ventilation Fraction of Inspired Oxygen 65 08/19/24 21:07 08/19/24 22:00 08/19/24 22:00 Temperature Pulse Rate 79 79 79 Respiratory Rate 20 18 Blood Pressure 115/61 Pulse Oximetry 100 Oxygen Delivery Fraction of Inspired Oxygen 08/19/24 22:00 08/19/24 22:00 08/19/24 22:00 Temperature Pulse Rate 79 79 79 Respiratory Rate 18 18 Blood Pressure 115/61 Pulse Oximetry Oxygen Delivery Fraction of Inspired Oxygen 08/19/24 22:52 08/19/24 23:53 08/19/24 23:53 Temperature Pulse Rate 79 78 78 Respiratory Rate Blood Pressure 115/67 115/67 Pulse Oximetry 100 Oxygen Delivery Mechanical Ventilation Fraction of Inspired Oxygen 65 08/20/24 00:00 08/20/24 00:00 08/20/24 00:00 Temperature Pulse Rate 80 Respiratory Rate 21 H Blood Pressure Pulse Oximetry 100 Oxygen Delivery Mechanical Ventilation Fraction of Inspired Oxygen 65 65 08/20/24 00:00 08/20/24 00:00 08/20/24 00:00 Temperature 37.8 C H Pulse Rate 80 80 80 Respiratory Rate 21 H 21 H Blood Pressure 112/61 112/61 Pulse Oximetry 100 Oxygen Delivery Fraction of Inspired Oxygen 08/20/24 00:00 08/20/24 01:46 08/20/24 01:47 Temperature Pulse Rate 80 79 78 Respiratory Rate 20 Blood Pressure Pulse Oximetry 100 Oxygen Delivery Mechanical Ventilation Fraction of Inspired Oxygen 65 08/20/24 01:56 08/20/24 02:00 08/20/24 02:00 Temperature Pulse Rate 78 82 82 Respiratory Rate 20 18 Blood Pressure 113/61 Pulse Oximetry 100 Oxygen Delivery Fraction of Inspired Oxygen 08/20/24 02:00 08/20/24 02:00 08/20/24 02:00 Temperature Pulse Rate 82 82 82 Respiratory Rate 18 18 Blood Pressure 113/61 Pulse Oximetry Oxygen Delivery Fraction of Inspired Oxygen 08/20/24 04:00 08/20/24 04:00 08/20/24 04:00 Temperature Pulse Rate 78 78 Respiratory Rate 18 18 Blood Pressure Pulse Oximetry 100 Oxygen Delivery Mechanical Ventilation Fraction of Inspired Oxygen 65 08/20/24 04:00 08/20/24 04:00 08/20/24 04:00 Temperature 37.7 C H Pulse Rate 78 77 Respiratory Rate 18 Blood Pressure 111/59 L Pulse Oximetry 100 Oxygen Delivery Fraction of Inspired Oxygen 65 08/20/24 04:00 08/20/24 04:00 08/20/24 04:00 Temperature Pulse Rate 77 77 77 Respiratory Rate 18 18 Blood Pressure 111/59 L Pulse Oximetry Oxygen Delivery Fraction of Inspired Oxygen 08/20/24 05:00 08/20/24 05:00 08/20/24 05:15 Temperature Pulse Rate 79 77 77 Respiratory Rate Blood Pressure 98/60 L Pulse Oximetry 100 99 Oxygen Delivery Mechanical Ventilation Mechanical Ventilation Fraction of Inspired Oxygen 65 55 08/20/24 06:00 08/20/24 06:00 08/20/24 06:00 Temperature Pulse Rate 83 83 83 Respiratory Rate 18 Blood Pressure 102/56 L 77/50 L Pulse Oximetry 99 Oxygen Delivery Fraction of Inspired Oxygen 08/20/24 06:00 08/20/24 06:00 08/20/24 07:29 Temperature 38.1 C H Pulse Rate 83 83 Respiratory Rate 18 18 Blood Pressure Pulse Oximetry Oxygen Delivery Fraction of Inspired Oxygen 08/20/24 08:00 08/20/24 08:00 08/20/24 08:15 Temperature 38.7 C H Pulse Rate 85 80 Respiratory Rate 17 Blood Pressure 104/54 L Pulse Oximetry 100 Oxygen Delivery Fraction of Inspired Oxygen 50 08/20/24 08:27 08/20/24 08:44 08/20/24 08:45 Temperature Pulse Rate 80 83 82 Respiratory Rate Blood Pressure 110/56 L 112/55 L Pulse Oximetry 100 Oxygen Delivery Mechanical Ventilation Fraction of Inspired Oxygen 50 08/20/24 09:00 08/20/24 09:00 08/20/24 09:15 Temperature Pulse Rate 83 83 88 Respiratory Rate 20 Blood Pressure 112/58 L 113/58 L 113/58 L Pulse Oximetry 100 Oxygen Delivery Fraction of Inspired Oxygen 08/20/24 09:30 08/20/24 09:45 08/20/24 10:00 Temperature Pulse Rate 90 91 96 Respiratory Rate Blood Pressure 116/62 123/62 92/67 L Pulse Oximetry Oxygen Delivery Fraction of Inspired Oxygen 08/20/24 10:00 08/20/24 10:00 08/20/24 10:05 Temperature 38.3 C H Pulse Rate 112 H 112 H 94 Respiratory Rate 23 H 23 H 23 H Blood Pressure 92/67 L Pulse Oximetry 100 Oxygen Delivery Fraction of Inspired Oxygen 08/20/24 10:15 Temperature Pulse Rate 97 Respiratory Rate Blood Pressure 110/62 Pulse Oximetry Oxygen Delivery Fraction of Inspired Oxygen Intake/Output Intake/Output: Intake & Output 08/17/24 08/18/24 08/19/24 08/20/24 23:59 23:59 23:59 23:59 Intake Total 2500.4 2038.5 2655.2 1167.5 Output Total 6769 014 6778 160 Balance 1475.4 1388.5 1555.2 1007.5 Meds/Results Medications: Active Medications Generic Name Dose Route Start Last Admin Trade Name Freq PRN Reason Stop Dose Admin Acetaminophen 650 mg 08/18/24 21:48 08/19/24 06:00 Acetaminophen Elixir 325 Mg/10.15 Ml Udc PO 650 mg Q4H PRN Administration Mild Pain (1-3) or Fever Dextrose 12.5 gm 08/18/24 05:53 Dextrose 50% 25 Gm/50 Ml Syringe IV PUSH PRN PRN Hypoglycemia Protocol Epoetin Oliver-epbx 10,000 units 08/20/24 18:38 Epoetin Oliver-Epbx 10,000 Units/Ml Vial IV PUSH 08/20/24 18:39 ONCE ONE Glucagon 1 mg 08/18/24 05:53 Glucagon For Inj 1 Mg Vial IM PRN PRN Hypoglycemia Protocol Glucose 15 gm 08/18/24 05:53 Glucose Oral Gel 15 Gm Of Glucse In 37.5 Gm Tube PO PRN PRN Hypoglycemia Protocol Heparin Sodium (Porcine) 5,500 units 08/18/24 15:05 08/18/24 23:23 Heparin Sodium 5,000 Units/Ml Vial IV PUSH 5,500 units PRN PRN Administration aPTT less than 55 seconds Heparin Sodium (Porcine) 3,000 units 08/18/24 15:05 08/20/24 03:49 Heparin Sodium 5,000 Units/Ml Vial IV PUSH 3,000 units PRN PRN Administration aPTT 55 - 70 seconds Hydrocortisone Sodium Succinate 100 mg 08/20/24 14:00 Hydrocortisone Sodium Succinate 100 Mg/2 Ml Vial IV PUSH Q8HR TEMI Fentanyl Citrate 2,500 mcg in 250 mls @ 15 mls/hr 08/18/24 00:55 08/20/24 10:00 Fentanyl 2,500 Mcg/Ns 250 Ml IV CONT 150 mcg/hr .[id number] TEMI 15 mls/hr Administration Protocol 150 MCG/HR Midazolam HCl 100 mg in 100 mls @ 6 mls/hr 08/18/24 00:55 08/20/24 06:00 Versed 100 Mg/Ns 100 Ml IV CONT 6 mg/hr .[id number] TEMI 6 mls/hr Titration Protocol 6 MG/HR Dextrose 1,000 mls @ 100 mls/hr 08/18/24 05:53 Dextrose 5% 1,000 Ml IVPB PRN PRN Hypoglycemia Protocol Heparin Sodium/Dextrose 25,000 units in 250 mls @ 16 mls/hr 08/18/24 15:05 08/20/24 07:51 Heparin Sodium/D5w 100 Units/Ml IV CONT 1,600 units/hr .[id number] TEMI 16 mls/hr Administration Protocol 1,600 UNITS/HR Norepinephrine Bitartrate 8 mg in 250 mls @ 20.625 mls/hr 08/19/24 12:30 08/20/24 06:00 Levophed 8 Mg/D5w 250 Ml IV CONT 11 mcg/min .Q12H8M TEMI 20.63 mls/hr Titration Protocol 11 MCG/MIN Albumin Human 50 mls @ 999 mls/hr 08/19/24 13:39 08/19/24 17:12 Albutein IVPB 08/20/24 13:38 999 mls/hr Q10M PRN Administration HYPOTENSION Cefepime HCl 1 gm in 50 mls @ 100 mls/hr 08/20/24 21:00 Maxipime 1 Gm/Ns 50 Ml IVPB QHS TEMI Vancomycin HCl 500 mg in 100 mls @ 100 mls/hr 08/20/24 12:00 Vancomycin 500 Mg/Ns 100 Ml IVPB 08/20/24 12:59 ONCE ONE Insulin Aspart 4 - 8 units 08/18/24 06:00 08/20/24 06:59 Insulin Aspart (*Bkc) 100 Units/Ml SUB-Q 4 units Q6HR [facility] Administration Protocol Insulin Glargine 20 units 08/20/24 21:00 Insulin Glargine (*Bkc) 100 Units/Ml SUB-Q HS TEMI Ipratropium [place] 0.5 mg 08/20/24 07:40 Ipratropium Br 0.02% Inh Soln 0.5 Mg/2.5 Ml Vial INHALATION Q6HRT PRN Wheezing Levalbuterol HCl 1.25 mg 08/20/24 07:40 Levalbuterol Neb 1.25 Mg/3 Ml INHALATION Q6HRT PRN Wheezing Midazolam HCl 2 mg 08/19/24 02:59 08/19/24 05:16 Midazolam Hcl (*Crx) 2 Mg/2 Ml Vial IV PUSH 2 mg Q1HR PRN Administration Agitation Multi-Ingred Cream/Lotion/Oil/Oint 1 applic 08/18/24 09:00 08/20/24 09:20 Mineral Oil/White Petrolatum Ointment EACH EYE 1 applic Q12HR TEMI Administration Mupirocin 1 applic 08/15/24 21:00 08/20/24 09:20 Mupirocin 2% Oint 22 Gm Tube EACH NARE 1 applic Q12HR TEMI Administration Pantoprazole Sodium 40 mg 08/19/24 09:00 08/20/24 09:20 Pantoprazole Sodium Iv 40 Mg Vial IV PUSH 40 mg QAM TEMI Administration Polyethylene Glycol 17 gm 08/15/24 22:20 Polyethylene Glycol 3350 17 Gm Powd.Pack PO DAILY PRN constipation Sodium Chloride 10 ml 08/19/24 22:00 08/20/24 07:01 Central Line Flush IV PUSH 10 ml Q8HR TEMI Administration Sodium Chloride 20 ml 08/19/24 18:43 Central Line Flush IV PUSH PRN PRN after blood draws Vancomycin HCl 1 each 08/20/24 09:39 Vancomycin For Hemodialysis IVPB PRN PRN Vancomycin Protocol Radiology Results: ITS Impressions Chest CTA 08/15/24 11:11 IMPRESSION: No pulmonary embolus. No thoracic aortic dissection. Right upper lobe infiltrate with patchy bilateral airspace disease, likely inflammatory/congestive rather than infectious. Small bilateral pleural effusions with adjacent atelectasis. Abdomen X-Ray 08/18/24 06:03 Impression: NG tube in satisfactory position. Chest/Abdomen/Pelvis CT 08/18/24 12:28 IMPRESSION: 1. Significant interval progression in an lobar pneumonia along with increasing small bilateral pleural effusions. 2. No acute intra-abdominal/pelvic process. 3. Subtle 2.5 cm mass at the upper pole of the right kidney consistent with provided history of renal tumor. 4. Calcification is at the bilateral kidneys which appear linear and likely atherosclerotic although could not exclude nonobstructing nephrolithiasis. No hydronephrosis in either kidney. 5. Unchanged mild likely reactive mediastinal lymphadenopathy. 6. Endotracheal tube, nasogastric tube and suprapubic Butt catheter all in expected positions. Venous Doppler Study 08/18/24 14:42 IMPRESSION: 1. Bilateral [id number] deep venous thrombosis in the left and right posterior tibial veins. Findings were discussed with the ICU nurse Carlos Herrera at 2:45 PM. Renal Ultrasound 08/19/24 14:10 IMPRESSION: No hydronephrosis or renal calculi. Findings suggesting medical renal disease. Findings within the upper pole of the right kidney consistent with patient's history, as detailed above. Chest X-Ray 08/20/24 06:23 Impression: Moderate pulmonary edema pattern with small bilateral pleural effusions. Support tubes, as above. Labs Labs: Laboratory Results - last 24 hr 08/19/24 08/19/24 08/19/24 07:00 12:10 18:16 WBC RBC Hgb Hct MCV MCH MCHC RDW Plt Count MPV APTT Puncture Site ABG pH ABG pCO2 ABG pO2 ABG PO2/FiO2 Ratio ABG HCO3 ABG O2 Saturation ABG O2 Content ABG Base Excess A-a Gradient Oxyhemoglobin Carboxyhemoglobin Methemoglobin Reduced Hemoglobin Total Hemoglobin O2 Delivery Device O2 Liters/Min Minute Volume Vent Rate Vent Mode FiO2 Tidal Volume PEEP Peak Inspir Pressure Pressure Support Sodium Potassium Chloride Carbon Dioxide Anion Gap BUN Creatinine Estim Creat Clear Calc Estimated GFR Glucose POC Capillary Glucose 241 H 174 H Calcium Phosphorus Magnesium Total Bilirubin AST ALT Alkaline Phosphatase Total Protein Albumin Urine Eosinophils U Random Total Protein Ur Random Sodium Ur Random Urea Urine Total Volume Urine Creatinine Protein/Creat Ratio 2 Random Vancomycin Hep Bs Antibody Negative 08/19/24 08/20/24 08/20/24 20:18 00:07 00:18 WBC RBC Hgb Hct MCV MCH MCHC RDW Plt Count MPV APTT 123.7 H Puncture Site ABG pH ABG pCO2 ABG pO2 ABG PO2/FiO2 Ratio ABG HCO3 ABG O2 Saturation ABG O2 Content ABG Base Excess A-a Gradient Oxyhemoglobin Carboxyhemoglobin Methemoglobin Reduced Hemoglobin Total Hemoglobin O2 Delivery Device O2 Liters/Min Minute Volume Vent Rate Vent Mode FiO2 Tidal Volume PEEP Peak Inspir Pressure Pressure Support Sodium Potassium Chloride Carbon Dioxide Anion Gap BUN Creatinine Estim Creat Clear Calc Estimated GFR Glucose POC Capillary Glucose 241 H Calcium Phosphorus Magnesium Total Bilirubin AST ALT Alkaline Phosphatase Total Protein Albumin Urine Eosinophils None seen U Random Total Protein 149 Ur Random Sodium Ur Random Urea Urine Total Volume Urine Creatinine Protein/Creat Ratio 2 Random Vancomycin Hep Bs Antibody 08/20/24 08/20/24 08/20/24 00:18 00:18 03:08 WBC RBC Hgb Hct MCV MCH MCHC RDW Plt Count MPV APTT 55.3 H Puncture Site ABG pH ABG pCO2 ABG pO2 ABG PO2/FiO2 Ratio ABG HCO3 ABG O2 Saturation ABG O2 Content ABG Base Excess A-a Gradient Oxyhemoglobin Carboxyhemoglobin Methemoglobin Reduced Hemoglobin Total Hemoglobin O2 Delivery Device O2 Liters/Min Minute Volume Vent Rate Vent Mode FiO2 Tidal Volume PEEP Peak Inspir Pressure Pressure Support Sodium Potassium Chloride Carbon Dioxide Anion Gap BUN Creatinine Estim Creat Clear Calc Estimated GFR Glucose POC Capillary Glucose Calcium Phosphorus Magnesium Total Bilirubin AST ALT Alkaline Phosphatase Total Protein Albumin Urine Eosinophils U Random Total Protein Cancelled Ur Random Sodium 35 Ur Random Urea 147 Urine Total Volume Cancelled Urine Creatinine 163.5 Cancelled Protein/Creat Ratio 2 0.91 H Random Vancomycin Hep Bs Antibody 08/20/24 08/20/24 08/20/24 04:48 06:20 06:58 WBC 9.4 RBC 2.82 L Hgb 7.2 L Hct 24.1 L MCV 85.5 MCH 25.5 L MCHC 29.9 L RDW 17.9 H Plt Count 165 MPV 11.9 H APTT Puncture Site Left radial ABG pH 7.356 ABG pCO2 46.0 H ABG pO2 111.1 H ABG PO2/FiO2 Ratio 1.71 ABG HCO3 25.2 ABG O2 Saturation 97.9 ABG O2 Content 11.3 L ABG Base Excess -0.4 A-a Gradient 302.3 Oxyhemoglobin 97.5 Carboxyhemoglobin 0.3 Methemoglobin 0.1 Reduced Hemoglobin 2.1 Total Hemoglobin 8.1 L O2 Delivery Device Ventilator O2 Liters/Min Not Reportable Minute Volume Not Reportable Vent Rate 18 Vent Mode Cmv FiO2 65 Tidal Volume 380 PEEP 10 Peak Inspir Pressure Not Reportable Pressure Support Not Reportable Sodium 139 Potassium 4.1 Chloride 100 Carbon Dioxide 29 Anion Gap 10 BUN 50 H D Creatinine 3.31 H Estim Creat Clear Calc 14 Estimated GFR 13 L Glucose 264 H POC Capillary Glucose 246 H Calcium 8.1 L Phosphorus 4.3 Magnesium 2.1 Total Bilirubin 0.6 AST 865 H ALT 420 H Alkaline Phosphatase 99 Total Protein 6.0 L Albumin 3.5 Urine Eosinophils U Random Total Protein Ur Random Sodium Ur Random Urea Urine Total Volume Urine Creatinine Protein/Creat Ratio 2 Random Vancomycin Hep Bs Antibody 08/20/24 10:03 WBC RBC Hgb Hct MCV MCH MCHC RDW Plt Count MPV APTT 58.5 H Puncture Site ABG pH ABG pCO2 ABG pO2 ABG PO2/FiO2 Ratio ABG HCO3 ABG O2 Saturation ABG O2 Content ABG Base Excess A-a Gradient Oxyhemoglobin Carboxyhemoglobin Methemoglobin Reduced Hemoglobin Total Hemoglobin O2 Delivery Device O2 Liters/Min Minute Volume Vent Rate Vent Mode FiO2 Tidal Volume PEEP Peak Inspir Pressure Pressure Support Sodium Potassium Chloride Carbon Dioxide Anion Gap BUN Creatinine Estim Creat Clear Calc Estimated GFR Glucose POC Capillary Glucose Calcium Phosphorus Magnesium Total Bilirubin AST ALT Alkaline Phosphatase Total Protein Albumin Urine Eosinophils U Random Total Protein Ur Random Sodium Ur Random Urea Urine Total Volume Urine Creatinine Protein/Creat Ratio 2 Random Vancomycin 14.5 Hep Bs Antibody
[2024-08-20] MEDS: EPOETIN ALFA-EPBX 10,000 UNITS/ML VIAL 10000 UNITS IV PUSH (10:47)
--- NOTE | 2024-08-20 11:11 | PCNFU ---
Nutrition Follow-Up Complete: Increased nutrient needs related to altered skin integrity as evidenced by noted pressure injuries Goal:PO intake 50% or greater for meals and supplements We are not meeting goal. Will continue to work towards goal once patient is extubated. Pt current nutrition is Nepro at 40ml/hr with Gianluca BID. Nutrition recommendation: Prosource BID Last recorded weight is 95.1 kg, up from 88.9 kg on admit. Bowel Motility: No BM reported. Labs Reviewed:Glu 264, BUN 50, Hct 24.1, Hgb 7.2 Meds Noted: Fentanyl, Versed, NovoLog, Protonix, ,Levophed. Skin: Deep Tissue-buttock, unstageable-left heel. Additional Notes: Patient remains on mechanical vent. Tube feedings are being tolerated of Nepro at 40 ml/hr with Protein Modular of Gianluca BID. Spoke with nursing and Fly Finisher today. Patient started on Dialysis. MD order for Prosource BID. Total Nutrition: 1904 kcal/117 gm protein/640 ml water. Flush 30 ml q 4 hours. Monitor in ICU rounds and reassess TF, wt, labs, skin every Friday and Friday.
[2024-08-20 11:33] LABS: Glucose Point of Care 190 mg/dl (65-105)
[2024-08-20] MEDS: HEPARIN SODIUM 1,000 UNITS/ML VIAL 5000 UNITS (11:43)
[2024-08-20] MEDS: ACETAMINOPHEN ELIXIR 325 MG/10.15 ML UDC 650 MG PO ×3 (12:10→21:05)
[2024-08-20] MEDS: NOREPINEPHRINE 8 MG/D5W 250 ML 8 MG/250 ML BAG 16.88 MG IV CONT (12:10)
[2024-08-20] MEDS: VANCOMYCIN 500 MG/NS 100 ML 500 MG/100 ML BAG 100 MG IVPB (12:55)
[2024-08-20] MEDS: HYDROCORTISONE SODIUM SUCCINATE 100 MG/2 ML VIAL IV PUSH ×2 (13:12→21:23)
--- NOTE | 2024-08-20 14:27 | P.PNIM_ITS ---
Progress Note: A&P Assessment and Plan (1) Acute respiratory failure with hypoxia: Code(s): J96.01 - Acute respiratory failure with hypoxia Status: Acute Assessment and Plan: Acute Respiratory failure secondary to combination of pneumonia and congestive heart failure Patient now intubated and on mechanical ventilation. Ventilator settings, ABG and chest reviewed Currently on PEEP of 10 and I have wean down FiO2 to 50%. Continue to wean as tolerated Repeat CT chest 08/18 MPRESSION: 1. Significant interval progression in an lobar pneumonia along with increasing small bilateral pleural effusions. Patient has elevated procalcitonin and BNP she is positive on intake output balance but her echocardiogram shows normal biventricular size and systolic function Bronchodilators Blood cultures have been sent and pending. Pending sputum culture Urine Legionella antigen, mycoplasma pneumonia antibody and urine pneumococcal antigen negative Dialysis to remove fluid Continue vancomycin cefepime azithromycin (2) Congestive heart failure: Code(s): I50.9 - Heart failure, unspecified Status: Acute Assessment and Plan: See above (3) Non-ST elevation myocardial infarction (NSTEMI): Code(s): I21.4 - Non-ST elevation (NSTEMI) myocardial infarction Status: Acute Assessment and Plan: History of coronary disease status post PCI in the past now presented with elevated troponin. Cardiology following Currently on aspirin Other medications on hold due to low blood pressure Statin Hold was slightly elevated LFTs. No plan for cardiac catheterization at this time. (4) Coronary artery disease: Code(s): I25.10 - Atherosclerotic heart disease of [place] coronary artery without angina pectoris Status: Acute Assessment and Plan: See above (5) Type 2 diabetes mellitus: Code(s): E11.9 - Type 2 diabetes mellitus without complications Status: Chronic Assessment and Plan: Sliding scale insulin Increase Lantus Continue tube feeds (6) Renal failure: Code(s): N19 - Unspecified kidney failure Status: Acute Assessment and Plan: Patient presented with creatinine of 1.5. Baseline creatinine unknown She has suprapubic catheter. As per son patient has had a renal tumor which was being monitored and plan was to start radiation therapy by her urology CT scan showed Subtle 2.5 cm mass at the upper pole of the right kidney consistent with provided history of renal tumor. Calcification is at the bilateral kidneys which appear linear and likely atherosclerotic although could not exclude nonobstructing nephrolithiasis. No hydronephrosis in either kidney. Diuretics were held and patient was given albumin bolus Creatinine continue to increase with poor urine output. After discussion with patient's family and fan engine engineer decision was made to initiate dialysis. / dialysis catheter was placed and patient was dialyzed 1 L fluid was removed / patient is going to get dialyzed again today Monitor urine output electrolytes and creatinine Nephrology follow (7) Pneumonia: Code(s): J18.9 - Pneumonia, unspecified organism Status: Acute Assessment and Plan: See above (8) Kidney mass: Code(s): N28.89 - Other specified disorders of kidney and ureter Status: Acute Assessment and Plan: Patient's son reports history of kidney mass which is being monitor as it was too big to be removed without total nephrectomy. He states that patient was supposed to get radiation therapy in a month or so before she fractured her ankle. CT scan shows 2.5 cm renal mass on the right side and no hydronephrosis. No intervention at this time (9) DVT (deep venous thrombosis): Code(s): I82.409 - Acute embolism and thrombosis of unspecified deep veins of unspecified lower extremity Status: Acute Assessment and Plan: Bilateral venous Dopplers obtained due to swelling in the legs. Ultrasound showed Bilateral [id number] deep venous thrombosis in the left and right posterior tibial veins. Findings were discussed with the ICU nurse Carlos Herrera at 2:45 PM. Patient started on heparin infusion (10) Septic shock: Code(s): A41.9 - Sepsis, unspecified organism; R65.21 - Severe sepsis with septic shock Status: Acute Assessment and Plan: Continue Levophed titration Add hydrocortisone Plan DVT prophylaxis -Lovenox Stress ulcer prophylaxis - PPI Nutrition -continue Tube Feeds Code Status - Full Code Subjective Date/time seen: 08/20/24 14:27 Interval history: Comfortable at bedside Still intubated Review of Systems Review of Systems: 12 systems were reviewed and are negativ e except for as per HPI. ROS unobtainable: Yes unobtainable due to endotracheal tube, unobtainable due to medical condition and unobtainable due to mental status Exam Narrative: General: Pt is sedated, intubated and on mechanical ventilation Lungs/Chest: Trachea central Coarse BS B/L, No crackles or wheezing. Cardiac: RRR. Normal S1 S2. No murmurs Circulation: Feet are cold Abdomen: Decreased bowel sounds. Obese. Soft. NT. ND. Extremities: Bilateral pitting edema : Butt in place Neurologic: Unable to assess due to sedation. Moves all 4 extremities to painful stimuli. PERRL Objective Data Vital Signs Vital Signs: Vital Signs - 24 hr 08/19/24 14:47 08/19/24 16:00 08/19/24 16:00 Temperature Pulse Rate 84 82 82 Respiratory Rate 18 Blood Pressure 86/57 L 102/63 Pulse Oximetry Oxygen Delivery Fraction of Inspired Oxygen 08/19/24 16:00 08/19/24 16:00 08/19/24 16:00 Temperature Pulse Rate 82 Respiratory Rate 18 Blood Pressure Pulse Oximetry Oxygen Delivery Mechanical Ventilation Fraction of Inspired Oxygen 65 65 08/19/24 16:00 08/19/24 16:00 08/19/24 16:18 Temperature 100.8 F H Pulse Rate 79 83 83 Respiratory Rate 17 Blood Pressure 102/63 100/65 Pulse Oximetry 100 Oxygen Delivery Fraction of Inspired Oxygen 08/19/24 16:23 08/19/24 16:23 08/19/24 16:30 Temperature Pulse Rate 81 78 Respiratory Rate 19 Blood Pressure 101/64 100/65 Pulse Oximetry Oxygen Delivery Fraction of Inspired Oxygen 65 08/19/24 16:45 08/19/24 17:00 08/19/24 17:15 Temperature Pulse Rate 82 81 82 Respiratory Rate Blood Pressure 107/62 110/62 112/69 Pulse Oximetry Oxygen Delivery Fraction of Inspired Oxygen 08/19/24 17:20 08/19/24 17:20 08/19/24 17:22 Temperature Pulse Rate 82 82 80 Respiratory Rate 21 H 21 H Blood Pressure Pulse Oximetry 100 Oxygen Delivery Mechanical Ventilation Fraction of Inspired Oxygen 65 08/19/24 17:30 08/19/24 17:45 08/19/24 18:00 Temperature Pulse Rate 79 80 80 Respiratory Rate Blood Pressure 114/72 118/70 124/68 Pulse Oximetry Oxygen Delivery Fraction of Inspired Oxygen 08/19/24 18:00 08/19/24 18:00 08/19/24 18:00 Temperature Pulse Rate 80 82 82 Respiratory Rate 19 19 Blood Pressure 124/68 Pulse Oximetry Oxygen Delivery Fraction of Inspired Oxygen 08/19/24 18:00 08/19/24 18:00 08/19/24 18:15 Temperature 99.2 F Pulse Rate 82 80 78 Respiratory Rate 19 Blood Pressure 124/68 119/68 Pulse Oximetry 100 Oxygen Delivery Fraction of Inspired Oxygen 08/19/24 18:30 08/19/24 18:45 08/19/24 18:50 Temperature Pulse Rate 79 80 90 Respiratory Rate Blood Pressure 118/72 123/75 126/73 Pulse Oximetry Oxygen Delivery Fraction of Inspired Oxygen 08/19/24 18:54 08/19/24 18:56 08/19/24 20:00 Temperature Pulse Rate 79 79 Respiratory Rate 19 Blood Pressure 126/73 122/72 Pulse Oximetry 100 Oxygen Delivery Mechanical Ventilation Fraction of Inspired Oxygen 65 08/19/24 20:00 08/19/24 20:00 08/19/24 20:00 Temperature 99.3 F Pulse Rate 79 106 H Respiratory Rate 18 Blood Pressure 121/71 Pulse Oximetry 100 Oxygen Delivery Fraction of Inspired Oxygen 65 08/19/24 20:00 08/19/24 20:00 08/19/24 20:00 Temperature Pulse Rate 106 H 106 H 106 H Respiratory Rate 20 20 Blood Pressure 121/71 Pulse Oximetry Oxygen Delivery Fraction of Inspired Oxygen 08/19/24 20:56 08/19/24 20:58 08/19/24 21:07 Temperature Pulse Rate 80 78 79 Respiratory Rate 22 H 20 Blood Pressure Pulse Oximetry 100 Oxygen Delivery Mechanical Ventilation Fraction of Inspired Oxygen 65 08/19/24 22:00 08/19/24 22:00 08/19/24 22:00 Temperature Pulse Rate 79 79 79 Respiratory Rate 18 18 Blood Pressure 115/61 Pulse Oximetry 100 Oxygen Delivery Fraction of Inspired Oxygen 08/19/24 22:00 08/19/24 22:00 08/19/24 22:52 Temperature Pulse Rate 79 79 79 Respiratory Rate 18 Blood Pressure 115/61 Pulse Oximetry 100 Oxygen Delivery Mechanical Ventilation Fraction of Inspired Oxygen 65 08/19/24 23:53 08/19/24 23:53 08/20/24 00:00 Temperature Pulse Rate 78 78 Respiratory Rate Blood Pressure 115/67 115/67 Pulse Oximetry 100 Oxygen Delivery Mechanical Ventilation Fraction of Inspired Oxygen 65 08/20/24 00:00 08/20/24 00:00 08/20/24 00:00 Temperature Pulse Rate 80 80 Respiratory Rate 21 H Blood Pressure 112/61 Pulse Oximetry Oxygen Delivery Fraction of Inspired Oxygen 65 08/20/24 00:00 08/20/24 00:00 08/20/24 00:00 Temperature 100.0 F H Pulse Rate 80 80 80 Respiratory Rate 21 H 21 H Blood Pressure 112/61 Pulse Oximetry 100 Oxygen Delivery Fraction of Inspired Oxygen 08/20/24 01:46 08/20/24 01:47 08/20/24 01:56 Temperature Pulse Rate 79 78 78 Respiratory Rate 20 20 Blood Pressure Pulse Oximetry 100 Oxygen Delivery Mechanical Ventilation Fraction of Inspired Oxygen 65 08/20/24 02:00 08/20/24 02:00 08/20/24 02:00 Temperature Pulse Rate 82 82 82 Respiratory Rate 18 18 Blood Pressure 113/61 Pulse Oximetry 100 Oxygen Delivery Fraction of Inspired Oxygen 08/20/24 02:00 08/20/24 02:00 08/20/24 04:00 Temperature Pulse Rate 82 82 78 Respiratory Rate 18 18 Blood Pressure 113/61 Pulse Oximetry Oxygen Delivery Fraction of Inspired Oxygen 08/20/24 04:00 08/20/24 04:00 08/20/24 04:00 Temperature Pulse Rate 78 78 Respiratory Rate 18 Blood Pressure Pulse Oximetry 100 Oxygen Delivery Mechanical Ventilation Fraction of Inspired Oxygen 65 08/20/24 04:00 08/20/24 04:00 08/20/24 04:00 Temperature 99.8 F H Pulse Rate 77 77 Respiratory Rate 18 Blood Pressure 111/59 L 111/59 L Pulse Oximetry 100 Oxygen Delivery Fraction of Inspired Oxygen 65 08/20/24 04:00 08/20/24 04:00 08/20/24 05:00 Temperature Pulse Rate 77 77 79 Respiratory Rate 18 18 Blood Pressure 98/60 L Pulse Oximetry Oxygen Delivery Fraction of Inspired Oxygen 08/20/24 05:00 08/20/24 05:15 08/20/24 06:00 Temperature Pulse Rate 77 77 83 Respiratory Rate Blood Pressure Pulse Oximetry 100 99 Oxygen Delivery Mechanical Ventilation Mechanical Ventilation Fraction of Inspired Oxygen 65 55 08/20/24 06:00 08/20/24 06:00 08/20/24 06:00 Temperature Pulse Rate 83 83 83 Respiratory Rate 18 18 Blood Pressure 102/56 L 77/50 L Pulse Oximetry 99 Oxygen Delivery Fraction of Inspired Oxygen 08/20/24 06:00 08/20/24 07:29 08/20/24 08:00 Temperature 100.5 F H Pulse Rate 83 85 Respiratory Rate 18 Blood Pressure Pulse Oximetry Oxygen Delivery Fraction of Inspired Oxygen 08/20/24 08:00 08/20/24 08:00 08/20/24 08:00 Temperature Pulse Rate 85 86 Respiratory Rate 17 Blood Pressure 100/56 L Pulse Oximetry 100 Oxygen Delivery Mechanical Ventilation Fraction of Inspired Oxygen 50 50 08/20/24 08:00 08/20/24 08:00 08/20/24 08:15 Temperature 101.7 F H Pulse Rate 82 83 80 Respiratory Rate 18 18 17 Blood Pressure 104/54 L Pulse Oximetry 100 Oxygen Delivery Fraction of Inspired Oxygen 08/20/24 08:27 08/20/24 08:44 08/20/24 08:45 Temperature Pulse Rate 80 83 82 Respiratory Rate Blood Pressure 110/56 L 112/55 L Pulse Oximetry 100 Oxygen Delivery Mechanical Ventilation Fraction of Inspired Oxygen 50 08/20/24 09:00 08/20/24 09:00 08/20/24 09:15 Temperature Pulse Rate 83 83 88 Respiratory Rate 20 Blood Pressure 112/58 L 113/58 L 113/58 L Pulse Oximetry 100 Oxygen Delivery Fraction of Inspired Oxygen 08/20/24 09:30 08/20/24 09:45 08/20/24 10:00 Temperature Pulse Rate 90 91 96 Respiratory Rate Blood Pressure 116/62 123/62 92/67 L Pulse Oximetry Oxygen Delivery Fraction of Inspired Oxygen 08/20/24 10:00 08/20/24 10:00 08/20/24 10:00 Temperature Pulse Rate 112 H 112 H 94 Respiratory Rate 23 H 23 H Blood Pressure Pulse Oximetry Oxygen Delivery Fraction of Inspired Oxygen 08/20/24 10:00 08/20/24 10:00 08/20/24 10:05 Temperature 101.0 F H Pulse Rate 94 89 94 Respiratory Rate 18 23 H Blood Pressure 92/67 L 92/67 L Pulse Oximetry 100 Oxygen Delivery Fraction of Inspired Oxygen 08/20/24 10:15 08/20/24 10:30 08/20/24 10:45 Temperature Pulse Rate 97 112 H 95 Respiratory Rate Blood Pressure 110/62 122/72 121/59 L Pulse Oximetry Oxygen Delivery Fraction of Inspired Oxygen 08/20/24 11:00 08/20/24 11:15 08/20/24 11:15 Temperature Pulse Rate 97 114 H 95 Respiratory Rate Blood Pressure 116/56 L 115/69 Pulse Oximetry 100 Oxygen Delivery Mechanical Ventilation Fraction of Inspired Oxygen 50 08/20/24 11:29 08/20/24 11:34 08/20/24 11:41 Temperature 101.3 F H 100.7 F H Pulse Rate 97 114 H Respiratory Rate 22 H Blood Pressure 113/61 116/71 Pulse Oximetry 100 Oxygen Delivery Fraction of Inspired Oxygen 08/20/24 12:00 08/20/24 12:00 08/20/24 12:00 Temperature Pulse Rate 101 H 105 H 105 H Respiratory Rate 19 18 Blood Pressure 117/55 L Pulse Oximetry Oxygen Delivery Fraction of Inspired Oxygen 08/20/24 12:00 08/20/24 12:00 08/20/24 12:00 Temperature Pulse Rate 101 H 101 H Respiratory Rate 23 H Blood Pressure Pulse Oximetry 98 Oxygen Delivery Mechanical Ventilation Fraction of Inspired Oxygen 50 50 08/20/24 12:03 08/20/24 12:10 08/20/24 12:10 Temperature 101 F H Pulse Rate 114 H 115 H Respiratory Rate 22 H Blood Pressure 117/55 L 117/55 L Pulse Oximetry 98 Oxygen Delivery Fraction of Inspired Oxygen 08/20/24 12:10 08/20/24 13:12 08/20/24 13:50 Temperature 101.4 F H Pulse Rate 105 H 84 Respiratory Rate Blood Pressure 117/53 L 80/51 L Pulse Oximetry Oxygen Delivery Fraction of Inspired Oxygen 08/20/24 13:55 08/20/24 14:00 08/20/24 14:00 Temperature 101.7 F H Pulse Rate 84 83 86 Respiratory Rate 18 Blood Pressure 86/50 L Pulse Oximetry 100 99 Oxygen Delivery Mechanical Ventilation Fraction of Inspired Oxygen 50 08/20/24 14:00 08/20/24 14:00 08/20/24 14:00 Temperature Pulse Rate 86 84 84 Respiratory Rate 18 18 Blood Pressure 86/50 L Pulse Oximetry Oxygen Delivery Fraction of Inspired Oxygen Intake/Output Intake/Output: Intake & Output 08/17/24 08/18/24 08/19/24 08/20/24 23:59 23:59 23:59 23:59 Intake Total 2500.4 2038.5 2655.2 1535.9 Output Total 7533 596 6234 2660 Balance 1475.4 1388.5 1555.2 -1124.1 Meds/Results Medications: Active Medications Generic Name Dose Route Start Last Admin Trade Name Freq PRN Reason Stop Dose Admin Acetaminophen 650 mg 08/18/24 21:48 08/20/24 12:10 Acetaminophen Elixir 325 Mg/10.15 Ml Udc PO 650 mg Q4H PRN Administration Mild Pain (1-3) or Fever Dextrose 12.5 gm 08/18/24 05:53 Dextrose 50% 25 Gm/50 Ml Syringe IV PUSH PRN PRN Hypoglycemia Protocol Epoetin Oliver-epbx 10,000 units 08/20/24 18:38 08/20/24 10:47 Epoetin Oliver-Epbx 10,000 Units/Ml Vial IV PUSH 08/20/24 18:39 10,000 units ONCE ONE Administration Glucagon 1 mg 08/18/24 05:53 Glucagon For Inj 1 Mg Vial IM PRN PRN Hypoglycemia Protocol Glucose 15 gm 08/18/24 05:53 Glucose Oral Gel 15 Gm Of Glucse In 37.5 Gm Tube PO PRN PRN Hypoglycemia Protocol Heparin Sodium (Porcine) 5,500 units 08/18/24 15:05 08/18/24 23:23 Heparin Sodium 5,000 Units/Ml Vial IV PUSH 5,500 units PRN PRN Administration aPTT less than 55 seconds Heparin Sodium (Porcine) 3,000 units 08/18/24 15:05 08/20/24 10:55 Heparin Sodium 5,000 Units/Ml Vial IV PUSH 3,000 units PRN PRN Administration aPTT 55 - 70 seconds Hydrocortisone Sodium Succinate 100 mg 08/20/24 14:00 08/20/24 13:12 Hydrocortisone Sodium Succinate 100 Mg/2 Ml Vial IV PUSH 100 mg Q8HR TEMI Administration Fentanyl Citrate 2,500 mcg in 250 mls @ 15 mls/hr 08/18/24 00:55 08/20/24 14:00 Fentanyl 2,500 Mcg/Ns 250 Ml IV CONT 150 mcg/hr .[id number] TEMI 15 mls/hr Titration Protocol 150 MCG/HR Midazolam HCl 100 mg in 100 mls @ 6 mls/hr 08/18/24 00:55 08/20/24 14:00 Versed 100 Mg/Ns 100 Ml IV CONT 6 mg/hr .[id number] TEMI 6 mls/hr Titration Protocol 6 MG/HR Dextrose 1,000 mls @ 100 mls/hr 08/18/24 05:53 Dextrose 5% 1,000 Ml IVPB PRN PRN Hypoglycemia Protocol Heparin Sodium/Dextrose 25,000 units in 250 mls @ 17 mls/hr 08/18/24 15:05 08/20/24 14:00 Heparin Sodium/D5w 100 Units/Ml IV CONT 1,700 units/hr .[id number] TEMI 17 mls/hr Titration Protocol 1,700 UNITS/HR Norepinephrine Bitartrate 8 mg in 250 mls @ 20.625 mls/hr 08/19/24 12:30 08/20/24 14:00 Levophed 8 Mg/D5w 250 Ml IV CONT 11 mcg/min .[id number] TEMI 20.63 mls/hr Titration Protocol 11 MCG/MIN Cefepime HCl 1 gm in 50 mls @ 100 mls/hr 08/20/24 21:00 Maxipime 1 Gm/Ns 50 Ml IVPB QHS TEMI Insulin Aspart 4 - 8 units 08/18/24 06:00 08/20/24 11:52 Insulin Aspart (*Bkc) 100 Units/Ml SUB-Q Not Given Q6HR [facility] Protocol Insulin Glargine 20 units 08/20/24 21:00 Insulin Glargine (*Bkc) 100 Units/Ml SUB-Q HS TEMI Ipratropium [place] 0.5 mg 08/20/24 07:40 Ipratropium Br 0.02% Inh Soln 0.5 Mg/2.5 Ml Vial INHALATION Q6HRT PRN Wheezing Levalbuterol HCl 1.25 mg 08/20/24 07:40 Levalbuterol Neb 1.25 Mg/3 Ml INHALATION Q6HRT PRN Wheezing Midazolam HCl 2 mg 08/19/24 02:59 08/19/24 05:16 Midazolam Hcl (*Crx) 2 Mg/2 Ml Vial IV PUSH 2 mg Q1HR PRN Administration Agitation Multi-Ingred Cream/Lotion/Oil/Oint 1 applic 08/18/24 09:00 08/20/24 09:20 Mineral Oil/White Petrolatum Ointment EACH EYE 1 applic Q12HR TEMI Administration Mupirocin 1 applic 08/15/24 21:00 08/20/24 09:20 Mupirocin 2% Oint 22 Gm Tube EACH NARE 1 applic Q12HR TEMI Administration Pantoprazole Sodium 40 mg 08/19/24 09:00 08/20/24 09:20 Pantoprazole Sodium Iv 40 Mg Vial IV PUSH 40 mg QAM TEMI Administration Polyethylene Glycol 17 gm 08/15/24 22:20 Polyethylene Glycol 3350 17 Gm Powd.Pack PO DAILY PRN constipation Sodium Chloride 10 ml 08/19/24 22:00 08/20/24 13:12 Central Line Flush IV PUSH 10 ml Q8HR TEMI Administration Sodium Chloride 20 ml 08/19/24 18:43 Central Line Flush IV PUSH PRN PRN after blood draws Vancomycin HCl 1 each 08/20/24 09:39 Vancomycin For Hemodialysis IVPB PRN PRN Vancomycin Protocol Radiology Results: ITS Impressions Chest CTA 08/15/24 11:11 IMPRESSION: No pulmonary embolus. No thoracic aortic dissection. Right upper lobe infiltrate with patchy bilateral airspace disease, likely inflammatory/congestive rather than infectious. Small bilateral pleural effusions with adjacent atelectasis. Abdomen X-Ray 08/18/24 06:03 Impression: NG tube in satisfactory position. Chest/Abdomen/Pelvis CT 08/18/24 12:28 IMPRESSION: 1. Significant interval progression in an lobar pneumonia along with increasing small bilateral pleural effusions. 2. No acute intra-abdominal/pelvic process. 3. Subtle 2.5 cm mass at the upper pole of the right kidney consistent with provided history of renal tumor. 4. Calcification is at the bilateral kidneys which appear linear and likely atherosclerotic although could not exclude nonobstructing nephrolithiasis. No hydronephrosis in either kidney. 5. Unchanged mild likely reactive mediastinal lymphadenopathy. 6. Endotracheal tube, nasogastric tube and suprapubic Butt catheter all in expected positions. Venous Doppler Study 08/18/24 14:42 IMPRESSION: 1. Bilateral [id number] deep venous thrombosis in the left and right posterior tibial veins. Findings were discussed with the ICU nurse Carlos Herrera at 2:45 PM. Renal Ultrasound 08/19/24 14:10 IMPRESSION: No hydronephrosis or renal calculi. Findings suggesting medical renal disease. Findings within the upper pole of the right kidney consistent with patient's history, as detailed above. Chest X-Ray 08/20/24 06:23 Impression: Moderate pulmonary edema pattern with small bilateral pleural effusions. Support tubes, as above. Labs Labs: Laboratory Results - last 24 hr 08/19/24 08/19/24 08/20/24 18:16 20:18 00:07 WBC RBC Hgb Hct MCV MCH MCHC RDW Plt Count MPV APTT 123.7 H Puncture Site ABG pH ABG pCO2 ABG pO2 ABG PO2/FiO2 Ratio ABG HCO3 ABG O2 Saturation ABG O2 Content ABG Base Excess A-a Gradient Oxyhemoglobin Carboxyhemoglobin Methemoglobin Reduced Hemoglobin Total Hemoglobin O2 Delivery Device O2 Liters/Min Minute Volume Vent Rate Vent Mode FiO2 Tidal Volume PEEP Peak Inspir Pressure Pressure Support Sodium Potassium Chloride Carbon Dioxide Anion Gap BUN Creatinine Estim Creat Clear Calc Estimated GFR Glucose POC Capillary Glucose 174 H 241 H Calcium Phosphorus Magnesium Total Bilirubin AST ALT Alkaline Phosphatase Total Protein Albumin Urine Eosinophils U Random Total Protein Ur Random Sodium Ur Random Urea Urine Total Volume Urine Creatinine Protein/Creat Ratio 2 Random Vancomycin 08/20/24 08/20/24 08/20/24 00:18 00:18 00:18 WBC RBC Hgb Hct MCV MCH MCHC RDW Plt Count MPV APTT Puncture Site ABG pH ABG pCO2 ABG pO2 ABG PO2/FiO2 Ratio ABG HCO3 ABG O2 Saturation ABG O2 Content ABG Base Excess A-a Gradient Oxyhemoglobin Carboxyhemoglobin Methemoglobin Reduced Hemoglobin Total Hemoglobin O2 Delivery Device O2 Liters/Min Minute Volume Vent Rate Vent Mode FiO2 Tidal Volume PEEP Peak Inspir Pressure Pressure Support Sodium Potassium Chloride Carbon Dioxide Anion Gap BUN Creatinine Estim Creat Clear Calc Estimated GFR Glucose POC Capillary Glucose Calcium Phosphorus Magnesium Total Bilirubin AST ALT Alkaline Phosphatase Total Protein Albumin Urine Eosinophils None seen U Random Total Protein 149 Cancelled Ur Random Sodium 35 Ur Random Urea 147 Urine Total Volume Cancelled Urine Creatinine 163.5 Cancelled Protein/Creat Ratio 2 0.91 H Random Vancomycin 08/20/24 08/20/24 08/20/24 03:08 04:48 06:20 WBC 9.4 RBC 2.82 L Hgb 7.2 L Hct 24.1 L MCV 85.5 MCH 25.5 L MCHC 29.9 L RDW 17.9 H Plt Count 165 MPV 11.9 H APTT 55.3 H Puncture Site Left radial ABG pH 7.356 ABG pCO2 46.0 H ABG pO2 111.1 H ABG PO2/FiO2 Ratio 1.71 ABG HCO3 25.2 ABG O2 Saturation 97.9 ABG O2 Content 11.3 L ABG Base Excess -0.4 A-a Gradient 302.3 Oxyhemoglobin 97.5 Carboxyhemoglobin 0.3 Methemoglobin 0.1 Reduced Hemoglobin 2.1 Total Hemoglobin 8.1 L O2 Delivery Device Ventilator O2 Liters/Min Not Reportable Minute Volume Not Reportable Vent Rate 18 Vent Mode Cmv FiO2 65 Tidal Volume 380 PEEP 10 Peak Inspir Pressure Not Reportable Pressure Support Not Reportable Sodium 139 Potassium 4.1 Chloride 100 Carbon Dioxide 29 Anion Gap 10 BUN 50 H D Creatinine 3.31 H Estim Creat Clear Calc 14 Estimated GFR 13 L Glucose 264 H POC Capillary Glucose Calcium 8.1 L Phosphorus 4.3 Magnesium 2.1 Total Bilirubin 0.6 AST 865 H ALT 420 H Alkaline Phosphatase 99 Total Protein 6.0 L Albumin 3.5 Urine Eosinophils U Random Total Protein Ur Random Sodium Ur Random Urea Urine Total Volume Urine Creatinine Protein/Creat Ratio 2 Random Vancomycin 08/20/24 08/20/24 08/20/24 06:58 10:03 11:25 WBC RBC Hgb Hct MCV MCH MCHC RDW Plt Count MPV APTT 58.5 H Puncture Site ABG pH ABG pCO2 ABG pO2 ABG PO2/FiO2 Ratio ABG HCO3 ABG O2 Saturation ABG O2 Content ABG Base Excess A-a Gradient Oxyhemoglobin Carboxyhemoglobin Methemoglobin Reduced Hemoglobin Total Hemoglobin O2 Delivery Device O2 Liters/Min Minute Volume Vent Rate Vent Mode FiO2 Tidal Volume PEEP Peak Inspir Pressure Pressure Support Sodium Potassium Chloride Carbon Dioxide Anion Gap BUN Creatinine Estim Creat Clear Calc Estimated GFR Glucose POC Capillary Glucose 246 H 190 H Calcium Phosphorus Magnesium Total Bilirubin AST ALT Alkaline Phosphatase Total Protein Albumin Urine Eosinophils U Random Total Protein Ur Random Sodium Ur Random Urea Urine Total Volume Urine Creatinine Protein/Creat Ratio 2 Random Vancomycin 14.5 Quality VTE Prophylaxis VTE prophylaxis: mechanical ordered and pharmacologic ordered
[2024-08-20 16:44] LABS: Partial Thromboplastin Time 63.3 Seconds (22.3-36.8)
[2024-08-20 18:04] LABS: Glucose Point of Care 362 mg/dl (65-105)
[2024-08-20] MEDS: INSULIN GLARGINE (*BKC) 100 UNITS/ML 20 UNITS SUB-Q (20:38)
[2024-08-20 20:57] LABS: Glucose Point of Care 373 mg/dl (65-105)
[2024-08-20] MEDS: CEFEPIME 1 GM/NS 50 ML 1 GM/50 ML BAG IVPB (21:05)
[2024-08-20] MEDS: VASOPRESSIN INJ 100 UNITS in DEXTROSE 5% 95 ML IV CONT (21:23)
[2024-08-20 21:28] LABS: Hepatitis B Core Ab Total NON-REACTIVE (NON-REACTIVE)
[2024-08-20] MEDS: HEPARIN SOD/D5W 100 UNITS/ML 25,000 UNITS/250 ML BAG 18 UNITS IV CONT (21:57)
[2024-08-20] MEDS: MIDAZOLAM 100MG/NS 100ML(*CRX) 100 MG/100 ML BAG IV CONT (21:58)
[2024-08-20] MEDS: NOREPINEPHRINE 8 MG/D5W 250 ML 8 MG/250 ML BAG 26.25 MG IV CONT (21:59)
[2024-08-20 23:28] LABS: Partial Thromboplastin Time 75.4 Seconds (22.3-36.8)
[2024-08-21] VITALS (58 sets, daily range): BP systolic 83–125; BP diastolic 50–91; PULSE 51–127; RESP 18–22; TEMP 36.8–38; O2SAT 91–100
[2024-08-21] MEDS: INSULIN ASPART (*BKC) 100 UNITS/ML SUB-Q ×6 (00:40→20:27)
[2024-08-21 00:44] LABS: Glucose Point of Care 401 mg/dl (65-105)
[2024-08-21 00:44] LABS: Glucose Point of Care 400 mg/dl (65-105)
[2024-08-21] MEDS: FENTANYL 2,500MCG/NS250ML(*CRX 2,500 MCG/250 ML BAG 10 MCG IV CONT (02:43)
[2024-08-21 04:42] LABS: Alveolar/Arterial O2 Gradient 163.5 mmHg; Base Excess ABG -3.6 mEq/l (+/-2.0); Carboxyhemoglobin 0.2 % THb (0-2.0); Fractional Inspired Oxygen 50 %; Methemoglobin ABG 0.3 %THb (0-1.5); Oxygen Content ABG 16.4 %vol (16.0-22.0); Oxygen Saturation ABG 98.5 % (95.0-100.0); Oxyhemoglobin 98.3 % THb (90.0-100.0); PCO2 ABG 48.1 mmHg (35.0-45.0); PO2 ABG 138.9 mmHg (80.0-100.0); PO2 FiO2 Ratio Arterial Blood 2.78 %; Reduced Hemoglobin 1.2 %THb (0-5.0); Total Hemoglobin 11.7 g/dL (12.0-18.0)
[2024-08-21 04:44] LABS: Arterial Blood Gas PEEP 10 cmH2O; Arterial Blood Gas Tidal Volume 380 ml; Arterial Blood Gas Vent Mode CMV; Arterial Blood Gas Ventilator rate 18 /MIN; Device VENTILATOR; Modified Allen's Test Pass; Site Drawn RIGHT RADIAL; pH ABG 7.298 (7.350-7.450)
[2024-08-21 04:57] LABS: Glucose Point of Care 410 mg/dl (65-105)
[2024-08-21 05:06] LABS: Hematocrit 24.7 % (37.0-47.0); Hemoglobin 7.4 g/dL (12.0-15.0); Mean Corpuscular Hemoglobin 25.9 pg (26-34); Mean Corpuscular Volume 86.4 fl (80-100); Mean Platelet Volume 11.6 fl (7.4-10.4); Platelet Count Result 158 k/mm3 (150-375); Red Blood Count 2.86 M/mm3 (4.2-5.4); White Blood Count 8.5 K/mm3 (4.5-10.0)
[2024-08-21 05:18] LABS: Albumin Level 3.5 g/dL (3.5-5.1); Alkaline Phosphatase 129 U/L (38-126); Anion Gap 12 mmol/L (4-12); Bilirubin,Total 0.6 mg/dL (0.2-1.3); Blood Urea Nitrogen 49 mg/dL (7-17); Calcium 8.6 mg/dL (8.4-10.2); Carbon Dioxide 25 mmol/L (22-30); Chloride 100 mmol/L (98-107); Estimated CRCL calculation 13 ml/min; Estimated Glomerular Filt Rate 12; Glucose 392 mg/dL (65-110); Magnesium 2.4 mg/dL (1.6-2.3); Potassium 5.4 mmol/L (3.4-5.0); Sodium 137 mmol/L (137-145)
[2024-08-21 05:34] LABS: Alanine Aminotransferase 1463 U/L (6-35)
[2024-08-21 05:37] LABS: Aspartate Amino Transferase 1694 U/L (14-36)
[2024-08-21 05:51] LABS: Vancomycin Random 18.4 ug/mL (10-20)
[2024-08-21] MEDS: HYDROCORTISONE SODIUM SUCCINATE 100 MG/2 ML VIAL IV PUSH (05:54)
[2024-08-21] MEDS: CENTRAL LINE FLUSH 10 ML IV PUSH ×3 (05:54→22:20)
--- NOTE | 2024-08-21 08:44 | P.PNINT_ITS ---
Progress Note: A&P Assessment and Plan (1) Acute respiratory failure with hypoxia: Code(s): J96.01 - Acute respiratory failure with hypoxia Status: Acute Assessment and Plan: Acute Respiratory failure secondary to combination of pneumonia and congestive heart failure Patient now intubated and on mechanical ventilation. Ventilator settings, ABG and chest reviewed Currently on PEEP of 10 and I have wean down FiO2 to 30%. I will drop PEEP to [address] chest 08/18 MPRESSION: 1. Significant interval progression in an lobar pneumonia along with increasing small bilateral pleural effusions. Patient has elevated procalcitonin and BNP she is positive on intake output balance but her echocardiogram shows normal biventricular size and systolic function Bronchodilators Blood cultures have been sent and pending. Pending sputum culture Urine Legionella antigen, mycoplasma pneumonia antibody and urine pneumococcal antigen negative Dialysis to remove fluid Continue vancomycin cefepime azithromycin Sedation holiday (2) Congestive heart failure: Code(s): I50.9 - Heart failure, unspecified Status: Acute Assessment and Plan: See above (3) Non-ST elevation myocardial infarction (NSTEMI): Code(s): I21.4 - Non-ST elevation (NSTEMI) myocardial infarction Status: Acute Assessment and Plan: History of coronary disease status post PCI in the past now presented with elevated troponin. Cardiology following Currently on aspirin Other medications on hold due to low blood pressure Statin Hold was slightly elevated LFTs. No plan for cardiac catheterization at this time. (4) Coronary artery disease: Code(s): I25.10 - Atherosclerotic heart disease of marshall coronary artery without angina pectoris Status: Acute Assessment and Plan: See above (5) Type 2 diabetes mellitus: Code(s): E11.9 - Type 2 diabetes mellitus without complications Status: Chronic Assessment and Plan: Sliding scale insulin Increase Lantus Discontinue steroid (6) Renal failure: Code(s): N19 - Unspecified kidney failure Status: Acute Assessment and Plan: Patient presented with creatinine of 1.5. Baseline creatinine unknown She has suprapubic catheter. As per son patient has had a renal tumor which was being monitored and plan was to start radiation therapy by her urology CT scan showed Subtle 2.5 cm mass at the upper pole of the right kidney consistent with provided history of renal tumor. Calcification is at the bilateral kidneys which appear linear and likely atherosclerotic although could not exclude nonobstructing nephrolithiasis. No hydronephrosis in either kidney. Diuretics were held and patient was given albumin bolus Creatinine continue to increase with poor urine output. After discussion with patient's family and hotel service manager decision was made to initiate dialysis. 08/19 dialysis catheter was placed and patient was dialyzed 1 L fluid was removed 08/20 patient is going to get dialyzed again today Monitor urine output electrolytes and creatinine Nephrology follow (7) Pneumonia: Code(s): J18.9 - Pneumonia, unspecified organism Status: Acute Assessment and Plan: See above (8) Kidney mass: Code(s): N28.89 - Other specified disorders of kidney and ureter Status: Acute Assessment and Plan: Patient's son reports history of kidney mass which is being monitor as it was too big to be removed without total nephrectomy. He states that patient was supposed to get radiation therapy in a month or so before she fractured her ankle. CT scan shows 2.5 cm renal mass on the right side and no hydronephrosis. No intervention at this time (9) DVT (deep venous thrombosis): Code(s): I82.409 - Acute embolism and thrombosis of unspecified deep veins of unspecified lower extremity Status: Acute Assessment and Plan: Bilateral venous Dopplers obtained due to swelling in the legs. Ultrasound showed Bilateral [id number] deep venous thrombosis in the left and right posterior tibial veins. Findings were discussed with the ICU nurse Carlos Herrera at 2:45 PM. Patient started on heparin infusion (10) Septic shock: Code(s): A41.9 - Sepsis, unspecified organism; R65.21 - Severe sepsis with septic shock Status: Acute Assessment and Plan: Continue Levophed titration And vasopressor (11) Ileus: Code(s): K56.7 - Ileus, unspecified Status: Acute Assessment and Plan: Patient has significant output from her OG tube. Tube feeds were held and OG tube was placed on suction. Bowel sounds are decreased I will obtain KUB, start regular and resume tube feeds at a low rate and see if patient tolerates them Plan DVT prophylaxis -Lovenox Stress ulcer prophylaxis - PPI Nutrition -continue Tube Feeds Code Status - Full Code 08/18 I spoke to and updated patient's son and his at bedside I answered all his questions. 08/19 I also met with patient's both sons at they wanted to proceed with he modialysis. Total Critical Care Time - 30 minutes Due to a high probability of clinically significant, life threatening deterioration, the patient required my highest level of preparedness to int ervene emergently and I personally spent this critical care time directly and personally managing the patient. This critical care time included obtaining a history; examining the patient; pulse oximetry; ordering and review of studies; arranging urgent treatment with development of a management plan; evaluation of patient's response to treatment; frequent reassessment; and discussions with other providers. It was exclusive of separately billable procedures and treating other patients and teaching time. Please see Assessment and Plan section and the rest of the note for further information on patient assessment and treatment Subjective Date/time seen: 08/21/24 Overnight events reviewed. Afebrile overnight Continues to be on mechanical ventilation FiO2 improved 30% peep is at 10 Continues to be on low-dose Levophed and vasopressin for Continues to be sedated with Versed and vent Other Vitals acceptable Tube feeds had to be held last night due to high residual. OG tube was placed to suction. Interval history: 4/3 temporary dialysis catheter placed patient was dialyzed Review of Systems Review of Systems: ROS unobtainable: Yes unobtainable due to endotracheal tube, unobtainable due to medical condition and unobtainable due to mental status Exam Narrative: General: Pt is sedated, intubated and on mechanical ventilation Lungs/Chest: Trachea central Coarse BS B/L, No crackles or wheezing. Cardiac: RRR. Normal S1 S2. No murmurs Circulation: Feet are cold Abdomen: Significant decrease bowel sounds. Obese. Soft. NT. ND. Extremities: Bilateral pitting edema : Butt in place Neurologic: Unable to assess due to sedation. . PERRL Objective Data Vital Signs Vital Signs: Vital Signs - 24 hr 08/20/24 08:45 08/20/24 09:00 08/20/24 09:00 Temperature Pulse Rate 82 83 83 Respiratory Rate 20 Blood Pressure 112/55 L 112/58 L 113/58 L Pulse Oximetry 100 Oxygen Delivery Fraction of Inspired Oxygen 08/20/24 09:15 08/20/24 09:30 08/20/24 09:45 Temperature Pulse Rate 88 90 91 Respiratory Rate Blood Pressure 113/58 L 116/62 123/62 Pulse Oximetry Oxygen Delivery Fraction of Inspired Oxygen 08/20/24 10:00 08/20/24 10:00 08/20/24 10:00 Temperature Pulse Rate 96 112 H 112 H Respiratory Rate 23 H 23 H Blood Pressure 92/67 L Pulse Oximetry Oxygen Delivery Fraction of Inspired Oxygen 08/20/24 10:00 08/20/24 10:00 08/20/24 10:00 Temperature Pulse Rate 94 94 89 Respiratory Rate 18 Blood Pressure 92/67 L Pulse Oximetry Oxygen Delivery Fraction of Inspired Oxygen 08/20/24 10:05 08/20/24 10:15 08/20/24 10:30 Temperature 38.3 C H Pulse Rate 94 97 112 H Respiratory Rate 23 H Blood Pressure 92/67 L 110/62 122/72 Pulse Oximetry 100 Oxygen Delivery Fraction of Inspired Oxygen 08/20/24 10:45 08/20/24 11:00 08/20/24 11:15 Temperature Pulse Rate 95 97 114 H Respiratory Rate Blood Pressure 121/59 L 116/56 L 115/69 Pulse Oximetry Oxygen Delivery Fraction of Inspired Oxygen 08/20/24 11:15 08/20/24 11:29 08/20/24 11:34 Temperature 38.5 C H Pulse Rate 95 97 Respiratory Rate Blood Pressure 113/61 Pulse Oximetry 100 Oxygen Delivery Mechanical Ventilation Fraction of Inspired Oxygen 50 08/20/24 11:41 08/20/24 12:00 08/20/24 12:00 Temperature 38.2 C H Pulse Rate 114 H 101 H 105 H Respiratory Rate 22 H 19 Blood Pressure 116/71 117/55 L Pulse Oximetry 100 Oxygen Delivery Fraction of Inspired Oxygen 08/20/24 12:00 08/20/24 12:00 08/20/24 12:00 Temperature Pulse Rate 105 H 101 H Respiratory Rate 18 Blood Pressure Pulse Oximetry Oxygen Delivery Fraction of Inspired Oxygen 50 08/20/24 12:00 08/20/24 12:03 08/20/24 12:10 Temperature 38.3 C H Pulse Rate 98 114 H Respiratory Rate 18 22 H Blood Pressure 117/55 L Pulse Oximetry 98 98 Oxygen Delivery Mechanical Ventilation Fraction of Inspired Oxygen 50 08/20/24 12:10 08/20/24 12:10 08/20/24 13:12 Temperature 38.6 C H Pulse Rate 115 H 105 H Respiratory Rate Blood Pressure 117/55 L 117/53 L Pulse Oximetry Oxygen Delivery Fraction of Inspired Oxygen 08/20/24 13:50 08/20/24 13:55 08/20/24 14:00 Temperature 38.7 C H Pulse Rate 84 84 83 Respiratory Rate 18 Blood Pressure 80/51 L 86/50 L Pulse Oximetry 100 99 Oxygen Delivery Mechanical Ventilation Fraction of Inspired Oxygen 50 08/20/24 14:00 08/20/24 14:00 08/20/24 14:00 Temperature Pulse Rate 86 86 84 Respiratory Rate 18 Blood Pressure 86/50 L Pulse Oximetry Oxygen Delivery Fraction of Inspired Oxygen 08/20/24 14:00 08/20/24 14:30 08/20/24 14:35 Temperature Pulse Rate 84 82 83 Respiratory Rate 18 18 Blood Pressure 82/46 L Pulse Oximetry Oxygen Delivery Fraction of Inspired Oxygen 08/20/24 15:25 08/20/24 16:00 08/20/24 16:00 Temperature Pulse Rate 84 83 84 Respiratory Rate 9 L Blood Pressure 85/51 L 83/54 L Pulse Oximetry 96 Oxygen Delivery Fraction of Inspired Oxygen 08/20/24 16:00 08/20/24 16:00 08/20/24 16:00 Temperature Pulse Rate 84 81 Respiratory Rate 18 18 Blood Pressure Pulse Oximetry 97 Oxygen Delivery Mechanical Ventilation Fraction of Inspired Oxygen 50 50 08/20/24 16:00 08/20/24 16:00 08/20/24 16:27 Temperature Pulse Rate 78 86 81 Respiratory Rate 18 Blood Pressure 83/54 L 85/52 L Pulse Oximetry Oxygen Delivery Fraction of Inspired Oxygen 08/20/24 17:06 08/20/24 17:20 08/20/24 18:00 Temperature 38.4 C H 38.6 C H Pulse Rate 78 77 Respiratory Rate 19 Blood Pressure 93/61 L Pulse Oximetry 98 97 Oxygen Delivery Mechanical Ventilation Fraction of Inspired Oxygen 50 08/20/24 18:00 08/20/24 18:00 08/20/24 18:00 Temperature Pulse Rate 79 78 76 Respiratory Rate 18 Blood Pressure 91/54 L Pulse Oximetry Oxygen Delivery Fraction of Inspired Oxygen 08/20/24 18:00 08/20/24 18:38 08/20/24 20:00 Temperature 38.1 C H Pulse Rate 79 73 Respiratory Rate 18 Blood Pressure 107/52 L Pulse Oximetry Oxygen Delivery Fraction of Inspired Oxygen 08/20/24 20:00 08/20/24 20:00 08/20/24 20:00 Temperature Pulse Rate 73 73 Respiratory Rate 18 18 Blood Pressure Pulse Oximetry Oxygen Delivery Mechanical Ventilation Fraction of Inspired Oxygen 50 08/20/24 20:00 08/20/24 20:00 08/20/24 20:00 Temperature 38.6 C H Pulse Rate 96 96 Respiratory Rate 18 Blood Pressure 107/52 L Pulse Oximetry 98 Oxygen Delivery Fraction of Inspired Oxygen 50 08/20/24 21:05 08/20/24 21:23 08/20/24 21:23 Temperature 38.6 C H Pulse Rate 70 71 Respiratory Rate Blood Pressure 101/60 Pulse Oximetry 100 Oxygen Delivery Mechanical Ventilation Fraction of Inspired Oxygen 50 08/20/24 21:49 08/20/24 21:54 08/20/24 21:58 Temperature Pulse Rate 70 72 72 Respiratory Rate 18 18 Blood Pressure 121/61 Pulse Oximetry Oxygen Delivery Fraction of Inspired Oxygen 08/20/24 21:59 08/20/24 21:59 08/20/24 22:00 Temperature Pulse Rate 70 70 69 Respiratory Rate 18 Blood Pressure Pulse Oximetry Oxygen Delivery Fraction of Inspired Oxygen 08/20/24 22:00 08/20/24 22:00 08/20/24 22:00 Temperature 37.6 C H Pulse Rate 70 70 70 Respiratory Rate 18 Blood Pressure 120/65 120/65 Pulse Oximetry 100 Oxygen Delivery Fraction of Inspired Oxygen 08/20/24 22:03 08/20/24 22:06 08/20/24 22:26 Temperature 37.6 C H Pulse Rate 65 64 Respiratory Rate Blood Pressure 120/65 114/60 Pulse Oximetry Oxygen Delivery Fraction of Inspired Oxygen 08/20/24 22:35 08/20/24 23:14 08/20/24 23:35 Temperature Pulse Rate 68 64 67 Respiratory Rate Blood Pressure 114/60 116/62 Pulse Oximetry 100 Oxygen Delivery Mechanical Ventilation Fraction of Inspired Oxygen 50 08/21/24 00:00 08/21/24 00:00 08/21/24 00:00 Temperature Pulse Rate 66 Respiratory Rate Blood Pressure 117/66 Pulse Oximetry Oxygen Delivery Mechanical Ventilation Fraction of Inspired Oxygen 50 50 08/21/24 00:00 08/21/24 00:00 08/21/24 00:16 Temperature 38.0 C H Pulse Rate 63 63 65 Respiratory Rate 18 Blood Pressure 117/66 125/61 Pulse Oximetry 100 Oxygen Delivery Fraction of Inspired Oxygen 08/21/24 00:27 08/21/24 00:27 08/21/24 00:36 Temperature Pulse Rate 64 65 64 Respiratory Rate 18 18 Blood Pressure 118/66 Pulse Oximetry Oxygen Delivery Fraction of Inspired Oxygen 08/21/24 01:19 08/21/24 01:30 08/21/24 02:00 Temperature Pulse Rate 59 L 62 61 Respiratory Rate Blood Pressure 108/66 100/58 L Pulse Oximetry Oxygen Delivery Fraction of Inspired Oxygen 08/21/24 02:00 08/21/24 02:10 08/21/24 02:20 Temperature 37.6 C H Pulse Rate 61 60 58 L Respiratory Rate 18 18 Blood Pressure 105/61 Pulse Oximetry 100 100 Oxygen Delivery Mechanical Ventilation Fraction of Inspired Oxygen 50 08/21/24 02:20 08/21/24 02:24 08/21/24 02:25 Temperature Pulse Rate 58 L 58 L 58 L Respiratory Rate 18 Blood Pressure 105/59 L 105/59 L Pulse Oximetry Oxygen Delivery Fraction of Inspired Oxygen 08/21/24 02:43 08/21/24 02:43 08/21/24 04:00 Temperature Pulse Rate 62 62 61 Respiratory Rate 18 18 Blood Pressure 104/59 L Pulse Oximetry Oxygen Delivery Fraction of Inspired Oxygen 08/21/24 04:00 08/21/24 04:00 08/21/24 04:00 Temperature 37.5 C Pulse Rate 60 60 Respiratory Rate 18 Blood Pressure 104/59 L Pulse Oximetry 100 Oxygen Delivery Mechanical Ventilation Fraction of Inspired Oxygen 50 08/21/24 04:00 08/21/24 04:14 08/21/24 04:14 Temperature Pulse Rate 61 61 Respiratory Rate 18 Blood Pressure 104/59 L Pulse Oximetry Oxygen Delivery Fraction of Inspired Oxygen 50 08/21/24 04:15 08/21/24 04:30 08/21/24 05:57 Temperature Pulse Rate 61 60 60 Respiratory Rate 18 18 Blood Pressure Pulse Oximetry 100 Oxygen Delivery Mechanical Ventilation Fraction of Inspired Oxygen 50 08/21/24 06:00 08/21/24 06:00 08/21/24 06:00 Temperature Pulse Rate 62 60 61 Respiratory Rate 18 Blood Pressure 93/56 L Pulse Oximetry Oxygen Delivery Fraction of Inspired Oxygen 08/21/24 06:00 08/21/24 06:01 08/21/24 06:20 Temperature Pulse Rate 61 61 Respiratory Rate 18 Blood Pressure 93/56 L 93/56 L Pulse Oximetry 99 Oxygen Delivery Fraction of Inspired Oxygen 30 08/21/24 07:44 Temperature Pulse Rate 61 Respiratory Rate Blood Pressure Pulse Oximetry 96 Oxygen Delivery Mechanical Ventilation Fraction of Inspired Oxygen 30 Intake/Output Intake/Output: Intake & Output 08/18/24 08/19/24 08/20/24 08/21/24 23:59 23:59 23:59 23:59 Intake Total 2038.5 2655.2 2696.1 454.5 Output Total 650 1100 2685 1580 Balance 1388.5 1555.2 11.1 -1125.5 Meds/Results Medications: Active Medications Generic Name Dose Route Start Last Admin Trade Name Freq PRN Reason Stop Dose Admin Acetaminophen 650 mg 08/18/24 21:48 08/20/24 21:05 Acetaminophen Elixir 325 Mg/10.15 Ml Udc PO 650 mg Q4H PRN Administration Mild Pain (1-3) or Fever Dextrose 12.5 gm 08/18/24 05:53 Dextrose 50% 25 Gm/50 Ml Syringe IV PUSH PRN PRN Hypoglycemia Protocol Epoetin Oliver-epbx 10,000 units 08/21/24 18:31 Epoetin Oliver-Epbx 10,000 Units/Ml Vial IV PUSH 08/21/24 18:32 ONCE ONE Glucagon 1 mg 08/18/24 05:53 Glucagon For Inj 1 Mg Vial IM PRN PRN Hypoglycemia Protocol Glucose 15 gm 08/18/24 05:53 Glucose Oral Gel 15 Gm Of Glucse In 37.5 Gm Tube PO PRN PRN Hypoglycemia Protocol Heparin Sodium (Porcine) 5,500 units 08/18/24 15:05 08/18/24 23:23 Heparin Sodium 5,000 Units/Ml Vial IV PUSH 5,500 units PRN PRN Administration aPTT less than 55 seconds Heparin Sodium (Porcine) 3,000 units 08/18/24 15:05 08/20/24 17:03 Heparin Sodium 5,000 Units/Ml Vial IV PUSH 3,000 units PRN PRN Administration aPTT 55 - 70 seconds Fentanyl Citrate 2,500 mcg in 250 mls @ 7.5 mls/hr 08/18/24 00:55 08/21/24 05:57 Fentanyl 2,500 Mcg/Ns 250 Ml IV CONT 75 mcg/hr .[id number] TEMI 7.5 mls/hr Titration Protocol 75 MCG/HR Midazolam HCl 100 mg in 100 mls @ 3 mls/hr 08/18/24 00:55 08/21/24 06:00 Versed 100 Mg/Ns 100 Ml IV CONT 3 mg/hr .[id number] TEMI 3 mls/hr Titration Protocol 3 MG/HR Dextrose 1,000 mls @ 100 mls/hr 08/18/24 05:53 Dextrose 5% 1,000 Ml IVPB PRN PRN Hypoglycemia Protocol Heparin Sodium/Dextrose 25,000 units in 250 mls @ 18 mls/hr 08/18/24 15:05 08/21/24 05:30 Heparin Sodium/D5w 100 Units/Ml IV CONT 1,800 units/hr .[id number] TEMI 18 mls/hr Titration Protocol 1,800 UNITS/HR Norepinephrine Bitartrate 8 mg in 250 mls @ 9.375 mls/hr 08/19/24 12:30 08/21/24 06:00 Levophed 8 Mg/D5w 250 Ml IV CONT 5 mcg/min .Q24H TEMI 9.38 mls/hr Titration Protocol 5 MCG/MIN Cefepime HCl 1 gm in 50 mls @ 100 mls/hr 08/20/24 21:00 08/20/24 21:35 Maxipime 1 Gm/Ns 50 Ml IVPB Infused QHS TEMI Infusion Vasopressin 100 units/ 100 mls @ 2.4 mls/hr 08/20/24 21:05 08/21/24 06:01 Dextrose IV CONT 0.04 units/min .[id number] TEMI 2.4 mls/hr Titration Protocol 0.04 UNITS/MIN Albumin Human 50 mls @ 999 mls/hr 08/21/24 06:28 Albutein IVPB 09/20/24 06:27 Q10M PRN HYPOTENSION Vancomycin HCl 750 mg in 250 mls @ 250 mls/hr 08/21/24 15:00 Vancomycin 750 Mg/Ns 250 Ml IVPB 08/21/24 15:59 ONCE ONE Insulin Aspart 4 - 8 units 08/20/24 21:05 08/21/24 05:54 Insulin Aspart (*Bkc) 100 Units/Ml SUB-Q 8 units Q4HR TEMI Administration Protocol Insulin Glargine 20 units 08/21/24 09:00 Insulin Glargine (*Bkc) 100 Units/Ml SUB-Q QAM TEMI Ipratropium [employer] 0.5 mg 08/20/24 07:40 Ipratropium Br 0.02% Inh Soln 0.5 Mg/2.5 Ml Vial INHALATION Q6HRT PRN Wheezing Levalbuterol HCl 1.25 mg 08/20/24 07:40 Levalbuterol Neb 1.25 Mg/3 Ml INHALATION Q6HRT PRN Wheezing Metoclopramide HCl 10 mg 08/21/24 07:50 Metoclopramide Hcl 10 Mg/10 Ml Soln Udc PO Q6H TEMI Midazolam HCl 2 mg 08/19/24 02:59 08/19/24 05:16 Midazolam Hcl (*Crx) 2 Mg/2 Ml Vial IV PUSH 2 mg Q1HR PRN Administration Agitation Multi-Ingred Cream/Lotion/Oil/Oint 1 applic 08/18/24 09:00 08/20/24 20:38 Mineral Oil/White Petrolatum Ointment EACH EYE 1 applic Q12HR TEMI Administration Mupirocin 1 applic 08/15/24 21:00 08/20/24 20:38 Mupirocin 2% Oint 22 Gm Tube EACH NARE 1 applic Q12HR TEMI Administration Pantoprazole Sodium 40 mg 08/19/24 09:00 08/20/24 09:20 Pantoprazole Sodium Iv 40 Mg Vial IV PUSH 40 mg QAM TEMI Administration Polyethylene Glycol 17 gm 08/15/24 22:20 Polyethylene Glycol 3350 17 Gm Powd.Pack PO DAILY PRN constipation Sodium Chloride 10 ml 08/19/24 22:00 08/21/24 05:54 Central Line Flush IV PUSH 10 ml Q8HR TEMI Administration Sodium Chloride 20 ml 08/19/24 18:43 Central Line Flush IV PUSH PRN PRN after blood draws Vancomycin HCl 1 each 08/20/24 09:39 Vancomycin For Hemodialysis IVPB PRN PRN Vancomycin Protocol Radiology Results: ITS Impressions Chest CTA 08/15/24 11:11 IMPRESSION: No pulmonary embolus. No thoracic aortic dissection. Right upper lobe infiltrate with patchy bilateral airspace disease, likely inflammatory/congestive rather than infectious. Small bilateral pleural effusions with adjacent atelectasis. Chest/Abdomen/Pelvis CT 08/18/24 12:28 IMPRESSION: 1. Significant interval progression in an lobar pneumonia along with increasing small bilateral pleural effusions. 2. No acute intra-abdominal/pelvic process. 3. Subtle 2.5 cm mass at the upper pole of the right kidney consistent with provided history of renal tumor. 4. Calcification is at the bilateral kidneys which appear linear and likely atherosclerotic although could not exclude nonobstructing nephrolithiasis. No hydronephrosis in either kidney. 5. Unchanged mild likely reactive mediastinal lymphadenopathy. 6. Endotracheal tube, nasogastric tube and suprapubic Butt catheter all in expected positions. Venous Doppler Study 08/18/24 14:42 IMPRESSION: 1. Bilateral [id number] deep venous thrombosis in the left and right posterior tibial veins. Findings were discussed with the ICU nurse Carlos Herrera at 2:45 PM. Renal Ultrasound 08/19/24 14:10 IMPRESSION: No hydronephrosis or renal calculi. Findings suggesting medical renal disease. Findings within the upper pole of the right kidney consistent with patient's history, as detailed above. Chest X-Ray 08/21/24 06:54 IMPRESSION: 1. Continued improvement in patchy bilateral airspace opacities which could represent pneumonia or pulmonary edema. 2. Decreasing very small bilateral pleural effusions. Abdomen X-Ray 08/21/24 08:25 IMPRESSION: 1. Nonspecific paucity of bowel gas with no dilated gas-filled loops of bowel to suggest obstruction. Labs Labs: Laboratory Results - last 24 hr 08/19/24 08/20/24 08/20/24 07:00 10:03 11:25 WBC RBC Hgb Hct MCV MCH MCHC RDW Plt Count MPV APTT 58.5 H Puncture Site ABG pH ABG pCO2 ABG pO2 ABG PO2/FiO2 Ratio ABG HCO3 ABG O2 Saturation ABG O2 Content ABG Base Excess A-a Gradient Oxyhemoglobin Carboxyhemoglobin Methemoglobin Reduced Hemoglobin Total Hemoglobin O2 Delivery Device O2 Liters/Min Minute Volume Vent Rate Vent Mode FiO2 Tidal Volume PEEP Peak Inspir Pressure Pressure Support Sodium Potassium Chloride Carbon Dioxide Anion Gap BUN Creatinine Estim Creat Clear Calc Estimated GFR Glucose POC Capillary Glucose 190 H Calcium Phosphorus Magnesium Total Bilirubin AST ALT Alkaline Phosphatase Total Protein Albumin Random Vancomycin 14.5 Hep B Core Total Ab Non-reactive 08/20/24 08/20/24 08/20/24 16:11 17:57 20:37 WBC RBC Hgb Hct MCV MCH MCHC RDW Plt Count MPV APTT 63.3 H Puncture Site ABG pH ABG pCO2 ABG pO2 ABG PO2/FiO2 Ratio ABG HCO3 ABG O2 Saturation ABG O2 Content ABG Base Excess A-a Gradient Oxyhemoglobin Carboxyhemoglobin Methemoglobin Reduced Hemoglobin Total Hemoglobin O2 Delivery Device O2 Liters/Min Minute Volume Vent Rate Vent Mode FiO2 Tidal Volume PEEP Peak Inspir Pressure Pressure Support Sodium Potassium Chloride Carbon Dioxide Anion Gap BUN Creatinine Estim Creat Clear Calc Estimated GFR Glucose POC Capillary Glucose 362 H 373 H Calcium Phosphorus Magnesium Total Bilirubin AST ALT Alkaline Phosphatase Total Protein Albumin Random Vancomycin Hep B Core Total Ab 08/20/24 08/21/24 08/21/24 23:04 00:24 00:40 WBC RBC Hgb Hct MCV MCH MCHC RDW Plt Count MPV APTT 75.4 H Puncture Site ABG pH ABG pCO2 ABG pO2 ABG PO2/FiO2 Ratio ABG HCO3 ABG O2 Saturation ABG O2 Content ABG Base Excess A-a Gradient Oxyhemoglobin Carboxyhemoglobin Methemoglobin Reduced Hemoglobin Total Hemoglobin O2 Delivery Device O2 Liters/Min Minute Volume Vent Rate Vent Mode FiO2 Tidal Volume PEEP Peak Inspir Pressure Pressure Support Sodium Potassium Chloride Carbon Dioxide Anion Gap BUN Creatinine Estim Creat Clear Calc Estimated GFR Glucose POC Capillary Glucose 401 H 400 H Calcium Phosphorus Magnesium Total Bilirubin AST ALT Alkaline Phosphatase Total Protein Albumin Random Vancomycin Hep B Core Total Ab 08/21/24 08/21/24 08/21/24 04:21 04:54 05:00 WBC RBC Hgb Hct MCV MCH MCHC RDW Plt Count MPV APTT Puncture Site Right radial ABG pH 7.298 L* ABG pCO2 48.1 H ABG pO2 138.9 H ABG PO2/FiO2 Ratio 2.78 ABG HCO3 23.0 ABG O2 Saturation 98.5 ABG O2 Content 16.4 ABG Base Excess -3.6 A-a Gradient 163.5 Oxyhemoglobin 98.3 Carboxyhemoglobin 0.2 Methemoglobin 0.3 Reduced Hemoglobin 1.2 Total Hemoglobin 11.7 L O2 Delivery Device Ventilator O2 Liters/Min Not Reportable Minute Volume Not Reportable Vent Rate 18 Vent Mode Cmv FiO2 50 Tidal Volume 380 PEEP 10 Peak Inspir Pressure Not Reportable Pressure Support Not Reportable Sodium Potassium Chloride Carbon Dioxide Anion Gap BUN Creatinine Estim Creat Clear Calc Estimated GFR Glucose POC Capillary Glucose 410 H Calcium Phosphorus Magnesium Total Bilirubin AST ALT Alkaline Phosphatase Total Protein Albumin Random Vancomycin 18.4 Hep B Core Total Ab 08/21/24 05:01 WBC 8.5 RBC 2.86 L Hgb 7.4 L Hct 24.7 L MCV 86.4 MCH 25.9 L MCHC 30.0 L RDW 18.0 H Plt Count 158 MPV 11.6 H APTT 76.0 H Puncture Site ABG pH ABG pCO2 ABG pO2 ABG PO2/FiO2 Ratio ABG HCO3 ABG O2 Saturation ABG O2 Content ABG Base Excess A-a Gradient Oxyhemoglobin Carboxyhemoglobin Methemoglobin Reduced Hemoglobin Total Hemoglobin O2 Delivery Device O2 Liters/Min Minute Volume Vent Rate Vent Mode FiO2 Tidal Volume PEEP Peak Inspir Pressure Pressure Support Sodium 137 Potassium 5.4 H Chloride 100 Carbon Dioxide 25 Anion Gap 12 BUN 49 H Creatinine 3.64 H Estim Creat Clear Calc 13 Estimated GFR 12 L Glucose 392 H POC Capillary Glucose Calcium 8.6 Phosphorus 6.0 H Magnesium 2.4 H Total Bilirubin 0.6 AST 1694 H ALT 1463 H Alkaline Phosphatase 129 H Total Protein 7.0 Albumin 3.5 Random Vancomycin Hep B Core Total Ab Quality VTE Prophylaxis VTE prophylaxis: mechanical ordered and pharmacologic ordered
[2024-08-21] MEDS: INSULIN HUMAN REGULAR (*BKC) 100 UNITS/ML IV PUSH (09:01)
[2024-08-21] MEDS: PANTOPRAZOLE SODIUM IV 40 MG VIAL IV PUSH (09:03)
[2024-08-21] MEDS: METOCLOPRAMIDE HCL 10 MG/10 ML SOLN UDC PO ×3 (09:03→18:59)
[2024-08-21] MEDS: SODIUM ZIRCONIUM CYCLOSILICATE 10 GM POWD.PACK FEED TUBE (09:03)
[2024-08-21] MEDS: INSULIN GLARGINE (*BKC) 100 UNITS/ML 20 UNITS SUB-Q (09:04)
[2024-08-21] MEDS: MUPIROCIN 2% OINT 22 GM TUBE 1 APPLIC EACH NARE ×2 (09:04→20:29)
[2024-08-21] MEDS: MINERAL OIL/WHITE PETROLATUM OINTMENT 1 APPLIC EACH EYE ×2 (09:04→20:29)
[2024-08-21] MEDS: polyethylene glycoL 3350 17 GM POWD.PACK PO (09:17)
[2024-08-21 09:44] LABS: Glucose Point of Care 367 mg/dl (65-105)
[2024-08-21 10:37] LABS: Glucose Point of Care 354 mg/dl (65-105)
[2024-08-21] MEDS: HEPARIN SOD/D5W 100 UNITS/ML 25,000 UNITS/250 ML BAG 18 UNITS IV CONT (11:44)
--- NOTE | 2024-08-21 11:52 | PM.IMPN ---
Progress Note: A&P Assessment and Plan (1) Acute respiratory failure with hypoxia: Code(s): J96.01 - Acute respiratory failure with hypoxia Status: Acute Assessment and Plan: Acute Respiratory failure secondary to combination of pneumonia and congestive heart failure Patient now intubated and on mechanical ventilation. Repeat CT chest showed worsening pneumonia Continue vancomycin cefepime azithromycin sedation per [place] (2) Congestive heart failure: Code(s): I50.9 - Heart failure, unspecified Status: Acute Assessment and Plan: See above (3) Non-ST elevation myocardial infarction (NSTEMI): Code(s): I21.4 - Non-ST elevation (NSTEMI) myocardial infarction Status: Acute Assessment and Plan: History of coronary disease status post PCI in the past now presented with elevated troponin. Cardiology following Currently on aspirin Other medications on hold due to low blood pressure Statin Hold was slightly elevated LFTs. No plan for cardiac catheterization at this time. (4) Coronary artery disease: Code(s): I25.10 - Atherosclerotic heart disease of [place] coronary artery without angina pectoris Status: Acute Assessment and Plan: See above (5) Type 2 diabetes mellitus: Code(s): E11.9 - Type 2 diabetes mellitus without complications Status: Chronic Assessment and Plan: Sliding scale insulin Increase Lantus Discontinue steroid (6) Renal failure: Code(s): N19 - Unspecified kidney failure Status: Acute Assessment and Plan: Patient presented with creatinine of 1.5. Baseline creatinine unknown She has suprapubic catheter. As per son patient has had a renal tumor which was being monitored and plan was to start radiation therapy by her urology CT scan showed Subtle 2.5 cm mass at the upper pole of the right kidney consistent with provided history of renal tumor. Calcification is at the bilateral kidneys which appear linear and likely atherosclerotic although could not exclude nonobstructing nephrolithiasis. No hydronephrosis in either kidney. Now on dialysis Nephrology on board (7) Pneumonia: Code(s): J18.9 - Pneumonia, unspecified organism Status: Acute Assessment and Plan: See above (8) Kidney mass: Code(s): N28.89 - Other specified disorders of kidney and ureter Status: Acute Assessment and Plan: Patient's son reports history of kidney mass which is being monitor as it was too big to be removed without total nephrectomy. He states that patient was supposed to get radiation therapy in a month or so before she fractured her ankle. CT scan shows 2.5 cm renal mass on the right side and no hydronephrosis. No intervention at this time (9) DVT (deep venous thrombosis): Code(s): I82.409 - Acute embolism and thrombosis of unspecified deep veins of unspecified lower extremity Status: Acute Assessment and Plan: Bilateral venous Dopplers obtained due to swelling in the legs. Ultrasound showed Bilateral [id number] deep venous thrombosis in the left and right posterior tibial veins. Findings were discussed with the ICU nurse Carlos Herrera at 2:45 PM. Patient started on heparin infusion (10) Septic shock: Code(s): A41.9 - Sepsis, unspecified organism; R65.21 - Severe sepsis with septic shock Status: Acute Assessment and Plan: Continue Levophed titration And vasopressor (11) Ileus: Code(s): K56.7 - Ileus, unspecified Status: Acute Assessment and Plan: Patient has significant output from her OG tube. Tube feeds were held and OG tube was placed on suction. Bowel sounds are decreased I will obtain KUB, start regular and resume tube feeds at a low rate and see if patient tolerates them Plan DVT prophylaxis -Lovenox Stress ulcer prophylaxis - PPI Nutrition -continue Tube Feeds Code Status - Full Code Subjective Date/time seen: 08/21/24 11:52 Interval history: Still intubated and sedated Review of Systems Review of Systems: 12 systems were reviewed and are negative except for as per HPI. ROS unobtainable: Yes unobtainable due to endotracheal tube, unobtainable due to medical condition and unobtainable due to mental status Exam Narrative: General: Pt is sedated, intubated and on mechanical ventilation Lungs/Chest: Trachea central Coarse BS B/L, No crackles or wheezing. Cardiac: RRR. Normal S1 S2. No murmurs Circulation: Feet are cold Abdomen: Significant decrease bowel sounds. Obese. Soft. NT. ND. Extremities: Bilateral pitting edema : Butt in place Neurologic: Unable to assess due to sedation. . PERRL Objective Data Vital Signs Vital Signs: Vital Signs - 24 hr 08/20/24 12:00 08/20/24 12:00 08/20/24 12:00 Temperature Pulse Rate 101 H 105 H 105 H Respiratory Rate 19 18 Blood Pressure 117/55 L Pulse Oximetry Oxygen Delivery Fraction of Inspired Oxygen 08/20/24 12:00 08/20/24 12:00 08/20/24 12:00 Temperature Pulse Rate 101 H 98 Respiratory Rate 18 Blood Pressure Pulse Oximetry 98 Oxygen Delivery Mechanical Ventilation Fraction of Inspired Oxygen 50 50 08/20/24 12:03 08/20/24 12:10 08/20/24 12:10 Temperature 101 F H Pulse Rate 114 H 115 H Respiratory Rate 22 H Blood Pressure 117/55 L 117/55 L Pulse Oximetry 98 Oxygen Delivery Fraction of Inspired Oxygen 08/20/24 12:10 08/20/24 13:12 08/20/24 13:50 Temperature 101.4 F H Pulse Rate 105 H 84 Respiratory Rate Blood Pressure 117/53 L 80/51 L Pulse Oximetry Oxygen Delivery Fraction of Inspired Oxygen 08/20/24 13:55 08/20/24 14:00 08/20/24 14:00 Temperature 101.7 F H Pulse Rate 84 83 86 Respiratory Rate 18 Blood Pressure 86/50 L Pulse Oximetry 100 99 Oxygen Delivery Mechanical Ventilation Fraction of Inspired Oxygen 50 08/20/24 14:00 08/20/24 14:00 08/20/24 14:00 Temperature Pulse Rate 86 84 84 Respiratory Rate 18 18 Blood Pressure 86/50 L Pulse Oximetry Oxygen Delivery Fraction of Inspired Oxygen 08/20/24 14:30 08/20/24 14:35 08/20/24 15:25 Temperature Pulse Rate 82 83 84 Respiratory Rate 18 Blood Pressure 82/46 L 85/51 L Pulse Oximetry Oxygen Delivery Fraction of Inspired Oxygen 08/20/24 16:00 08/20/24 16:00 08/20/24 16:00 Temperature Pulse Rate 83 84 Respiratory Rate 9 L Blood Pressure 83/54 L Pulse Oximetry 96 Oxygen Delivery Fraction of Inspired Oxygen 50 08/20/24 16:00 08/20/24 16:00 08/20/24 16:00 Temperature Pulse Rate 84 81 78 Respiratory Rate 18 18 Blood Pressure 83/54 L Pulse Oximetry 97 Oxygen Delivery Mechanical Ventilation Fraction of Inspired Oxygen 50 08/20/24 16:00 08/20/24 16:27 08/20/24 17:06 Temperature 101.1 F H Pulse Rate 86 81 Respiratory Rate 18 Blood Pressure 85/52 L Pulse Oximetry Oxygen Delivery Fraction of Inspired Oxygen 08/20/24 17:20 08/20/24 18:00 08/20/24 18:00 Temperature 101.5 F H Pulse Rate 78 77 79 Respiratory Rate 19 Blood Pressure 93/61 L Pulse Oximetry 98 97 Oxygen Delivery Mechanical Ventilation Fraction of Inspired Oxygen 50 08/20/24 18:00 08/20/24 18:00 08/20/24 18:00 Temperature Pulse Rate 78 76 79 Respiratory Rate 18 18 Blood Pressure 91/54 L Pulse Oximetry Oxygen Delivery Fraction of Inspired Oxygen 08/20/24 18:38 08/20/24 20:00 08/20/24 20:00 Temperature 100.5 F H Pulse Rate 73 73 Respiratory Rate 18 Blood Pressure 107/52 L Pulse Oximetry Oxygen Delivery Fraction of Inspired Oxygen 08/20/24 20:00 08/20/24 20:00 08/20/24 20:00 Temperature Pulse Rate 73 96 Respiratory Rate 18 Blood Pressure Pulse Oximetry Oxygen Delivery Mechanical Ventilation Fraction of Inspired Oxygen 50 08/20/24 20:00 08/20/24 20:00 08/20/24 21:05 Temperature 101.4 F H 101.4 F H Pulse Rate 96 Respiratory Rate 18 Blood Pressure 107/52 L Pulse Oximetry 98 Oxygen Delivery Fraction of Inspired Oxygen 50 08/20/24 21:23 08/20/24 21:23 08/20/24 21:49 Temperature Pulse Rate 70 71 70 Respiratory Rate Blood Pressure 101/60 121/61 Pulse Oximetry 100 Oxygen Delivery Mechanical Ventilation Fraction of Inspired Oxygen 50 08/20/24 21:54 08/20/24 21:58 08/20/24 21:59 Temperature Pulse Rate 72 72 70 Respiratory Rate 18 18 Blood Pressure Pulse Oximetry Oxygen Delivery Fraction of Inspired Oxygen 08/20/24 21:59 08/20/24 22:00 08/20/24 22:00 Temperature Pulse Rate 70 69 70 Respiratory Rate 18 Blood Pressure Pulse Oximetry Oxygen Delivery Fraction of Inspired Oxygen 08/20/24 22:00 08/20/24 22:00 08/20/24 22:03 Temperature 99.7 F H 99.7 F H Pulse Rate 70 70 Respiratory Rate 18 Blood Pressure 120/65 120/65 Pulse Oximetry 100 Oxygen Delivery Fraction of Inspired Oxygen 08/20/24 22:06 08/20/24 22:26 08/20/24 22:35 Temperature Pulse Rate 65 64 68 Respiratory Rate Blood Pressure 120/65 114/60 114/60 Pulse Oximetry Oxygen Delivery Fraction of Inspired Oxygen 04/04/25 23:14 08/20/24 23:35 08/21/24 00:00 Temperature Pulse Rate 64 67 66 Respiratory Rate Blood Pressure 116/62 117/66 Pulse Oximetry 100 Oxygen Delivery Mechanical Ventilation Fraction of Inspired Oxygen 50 08/21/24 00:00 08/21/24 00:00 08/21/24 00:00 Temperature Pulse Rate 63 Respiratory Rate Blood Pressure Pulse Oximetry Oxygen Delivery Mechanical Ventilation Fraction of Inspired Oxygen 50 50 08/21/24 00:00 08/21/24 00:16 08/21/24 00:27 Temperature 100.4 F H Pulse Rate 63 65 64 Respiratory Rate 18 18 Blood Pressure 117/66 125/61 Pulse Oximetry 100 Oxygen Delivery Fraction of Inspired Oxygen 08/21/24 00:27 08/21/24 00:36 08/21/24 01:19 Temperature Pulse Rate 65 64 59 L Respiratory Rate 18 Blood Pressure 118/66 108/66 Pulse Oximetry Oxygen Delivery Fraction of Inspired Oxygen 08/21/24 01:30 08/21/24 02:00 08/21/24 02:00 Temperature 99.7 F H Pulse Rate 62 61 61 Respiratory Rate 18 Blood Pressure 100/58 L 105/61 Pulse Oximetry 100 Oxygen Delivery Fraction of Inspired Oxygen 08/21/24 02:10 08/21/24 02:20 08/21/24 02:20 Temperature Pulse Rate 60 58 L 58 L Respiratory Rate 18 18 Blood Pressure Pulse Oximetry 100 Oxygen Delivery Mechanical Ventilation Fraction of Inspired Oxygen 50 08/21/24 02:24 08/21/24 02:25 08/21/24 02:43 Temperature Pulse Rate 58 L 58 L 62 Respiratory Rate 18 Blood Pressure 105/59 L 105/59 L Pulse Oximetry Oxygen Delivery Fraction of Inspired Oxygen 08/21/24 02:43 08/21/24 04:00 08/21/24 04:00 Temperature Pulse Rate 62 61 Respiratory Rate 18 Blood Pressure 104/59 L Pulse Oximetry Oxygen Delivery Mechanical Ventilation Fraction of Inspired Oxygen 50 08/21/24 04:00 08/21/24 04:00 08/21/24 04:00 Temperature 99.5 F Pulse Rate 60 60 Respiratory Rate 18 Blood Pressure 104/59 L Pulse Oximetry 100 Oxygen Delivery Fraction of Inspired Oxygen 50 08/21/24 04:14 08/21/24 04:14 08/21/24 04:15 Temperature Pulse Rate 61 61 61 Respiratory Rate 18 18 Blood Pressure 104/59 L Pulse Oximetry Oxygen Delivery Fraction of Inspired Oxygen 08/21/24 04:30 08/21/24 05:57 08/21/24 06:00 Temperature Pulse Rate 60 60 62 Respiratory Rate 18 Blood Pressure 93/56 L Pulse Oximetry 100 Oxygen Delivery Mechanical Ventilation Fraction of Inspired Oxygen 50 08/21/24 06:00 08/21/24 06:00 08/21/24 06:00 Temperature Pulse Rate 60 61 61 Respiratory Rate 18 18 Blood Pressure 93/56 L Pulse Oximetry 99 Oxygen Delivery Fraction of Inspired Oxygen 08/21/24 06:01 08/21/24 06:20 08/21/24 07:44 Temperature Pulse Rate 61 61 Respiratory Rate Blood Pressure 93/56 L Pulse Oximetry 96 Oxygen Delivery Mechanical Ventilation Fraction of Inspired Oxygen 30 30 08/21/24 08:00 08/21/24 08:00 08/21/24 08:00 Temperature 99.2 F Pulse Rate 59 L 60 Respiratory Rate 22 H 22 H Blood Pressure 100/60 Pulse Oximetry 95 Oxygen Delivery Fraction of Inspired Oxygen 30 08/21/24 08:00 08/21/24 08:00 08/21/24 08:00 Temperature Pulse Rate 60 61 60 Respiratory Rate 22 H Blood Pressure 100/58 L 100/58 L Pulse Oximetry Oxygen Delivery Fraction of Inspired Oxygen 08/21/24 08:00 08/21/24 10:00 08/21/24 10:00 Temperature 99.1 F Pulse Rate 61 59 L Respiratory Rate 22 H 22 H Blood Pressure 103/62 Pulse Oximetry 95 93 Oxygen Delivery Mechanical Ventilation Fraction of Inspired Oxygen 30 08/21/24 10:00 08/21/24 10:00 08/21/24 10:00 Temperature Pulse Rate 59 L 59 L 59 L Respiratory Rate 22 H Blood Pressure 103/62 103/62 Pulse Oximetry Oxygen Delivery Fraction of Inspired Oxygen 08/21/24 11:22 Temperature Pulse Rate 59 L Respiratory Rate Blood Pressure Pulse Oximetry 94 Oxygen Delivery Mechanical Ventilation Fraction of Inspired Oxygen 30 Intake/Output Intake/Output: Intake & Output 08/18/24 08/19/24 08/20/24 08/21/24 23:59 23:59 23:59 23:59 Intake Total 2038.5 2655.2 2696.1 646.3 Output Total 650 1100 2685 1580 Balance 1388.5 1555.2 11.1 -933.7 Meds/Results Medications: Active Medications Generic Name Dose Route Start Last Admin Trade Name Freq PRN Reason Stop Dose Admin Acetaminophen 650 mg 08/18/24 21:48 08/20/24 21:05 Acetaminophen Elixir 325 Mg/10.15 Ml Udc PO 650 mg Q4H PRN Administration Mild Pain (1-3) or Fever Dextrose 12.5 gm 08/18/24 05:53 Dextrose 50% 25 Gm/50 Ml Syringe IV PUSH PRN PRN Hypoglycemia Protocol Epoetin Oliver-epbx 10,000 units 08/21/24 18:31 Epoetin Oliver-Epbx 10,000 Units/Ml Vial IV PUSH 08/21/24 18:32 ONCE ONE Glucagon 1 mg 08/18/24 05:53 Glucagon For Inj 1 Mg Vial IM PRN PRN Hypoglycemia Protocol Glucose 15 gm 08/18/24 05:53 Glucose Oral Gel 15 Gm Of Glucse In 37.5 Gm Tube PO PRN PRN Hypoglycemia Protocol Heparin Sodium (Porcine) 5,500 units 08/18/24 15:05 08/18/24 23:23 Heparin Sodium 5,000 Units/Ml Vial IV PUSH 5,500 units PRN PRN Administration aPTT less than 55 seconds Heparin Sodium (Porcine) 3,000 units 08/18/24 15:05 08/20/24 17:03 Heparin Sodium 5,000 Units/Ml Vial IV PUSH 3,000 units PRN PRN Administration aPTT 55 - 70 seconds Fentanyl Citrate 2,500 mcg in 250 mls @ 2.5 mls/hr 08/18/24 00:55 08/21/24 10:00 Fentanyl 2,500 Mcg/Ns 250 Ml IV CONT 25 mcg/hr .Q72H TEMI 2.5 mls/hr Titration Protocol 25 MCG/HR Midazolam HCl 100 mg in 100 mls @ 3 mls/hr 08/18/24 00:55 08/21/24 10:00 Versed 100 Mg/Ns 100 Ml IV CONT 3 mg/hr .[id number] TEMI 3 mls/hr Titration Protocol 3 MG/HR Dextrose 1,000 mls @ 100 mls/hr 08/18/24 05:53 Dextrose 5% 1,000 Ml IVPB PRN PRN Hypoglycemia Protocol Heparin Sodium/Dextrose 25,000 units in 250 mls @ 18 mls/hr 08/18/24 15:05 08/21/24 11:44 Heparin Sodium/D5w 100 Units/Ml IV CONT 1,800 units/hr .[id number] TEMI 18 mls/hr Administration Protocol 1,800 UNITS/HR Norepinephrine Bitartrate 8 mg in 250 mls @ 9.375 mls/hr 08/19/24 12:30 08/21/24 10:00 Levophed 8 Mg/D5w 250 Ml IV CONT 5 mcg/min .Q24H TEMI 9.38 mls/hr Titration Protocol 5 MCG/MIN Cefepime HCl 1 gm in 50 mls @ 100 mls/hr 08/20/24 21:00 08/20/24 21:35 Maxipime 1 Gm/Ns 50 Ml IVPB Infused QHS TEMI Infusion Vasopressin 100 units/ 100 mls @ 2.4 mls/hr 08/20/24 21:05 08/21/24 10:00 Dextrose IV CONT 0.04 units/min .[id number] TEMI 2.4 mls/hr Titration Protocol 0.04 UNITS/MIN Albumin Human 50 mls @ 999 mls/hr 08/21/24 06:28 Albutein IVPB 09/20/24 06:27 Q10M PRN HYPOTENSION Vancomycin HCl 750 mg in 250 mls @ 250 mls/hr 08/21/24 15:00 Vancomycin 750 Mg/Ns 250 Ml IVPB 08/21/24 15:59 ONCE ONE Insulin Aspart 4 - 8 units 08/20/24 21:05 08/21/24 10:23 Insulin Aspart (*Bkc) 100 Units/Ml SUB-Q 8 units Q4HR [facility] Administration Protocol Insulin Glargine 20 units 08/21/24 09:00 08/21/24 09:04 Insulin Glargine (*Bkc) 100 Units/Ml SUB-Q 20 units QAM TEMI Administration Ipratropium [place] 0.5 mg 08/20/24 07:40 Ipratropium Br 0.02% Inh Soln 0.5 Mg/2.5 Ml Vial INHALATION Q6HRT PRN Wheezing Levalbuterol HCl 1.25 mg 08/20/24 07:40 Levalbuterol Neb 1.25 Mg/3 Ml INHALATION Q6HRT PRN Wheezing Metoclopramide HCl 10 mg 08/21/24 07:50 08/21/24 09:03 Metoclopramide Hcl 10 Mg/10 Ml Soln Udc PO 10 mg Q6H TEMI Administration Midazolam HCl 2 mg 08/19/24 02:59 08/19/24 05:16 Midazolam Hcl (*Crx) 2 Mg/2 Ml Vial IV PUSH 2 mg Q1HR PRN Administration Agitation Multi-Ingred Cream/Lotion/Oil/Oint 1 applic 08/18/24 09:00 08/21/24 09:04 Mineral Oil/White Petrolatum Ointment EACH EYE 1 applic Q12HR TEMI Administration Mupirocin 1 applic 08/15/24 21:00 08/21/24 09:04 Mupirocin 2% Oint 22 Gm Tube EACH NARE 1 applic Q12HR TEMI Administration Pantoprazole Sodium 40 mg 08/19/24 09:00 08/21/24 09:03 Pantoprazole Sodium Iv 40 Mg Vial IV PUSH 40 mg QAM TEMI Administration Polyethylene Glycol 17 gm 08/15/24 22:20 08/21/24 09:17 Polyethylene Glycol 3350 17 Gm Powd.Pack PO 17 gm DAILY PRN Administration constipation Sodium Chloride 10 ml 08/19/24 22:00 08/21/24 05:54 Central Line Flush IV PUSH 10 ml Q8HR TEMI Administration Sodium Chloride 20 ml 08/19/24 18:43 Central Line Flush IV PUSH PRN PRN after blood draws Vancomycin HCl 1 each 08/20/24 09:39 Vancomycin For Hemodialysis IVPB PRN PRN Vancomycin Protocol Radiology Results: ITS Impressions Chest CTA 08/15/24 11:11 IMPRESSION: No pulmonary embolus. No thoracic aortic dissection. Right upper lobe infiltrate with patchy bilateral airspace disease, likely inflammatory/congestive rather than infectious. Small bilateral pleural effusions with adjacent atelectasis. Chest/Abdomen/Pelvis CT 08/18/24 12:28 IMPRESSION: 1. Significant interval progression in an lobar pneumonia along with increasing small bilateral pleural effusions. 2. No acute intra-abdominal/pelvic process. 3. Subtle 2.5 cm mass at the upper pole of the right kidney consistent with provided history of renal tumor. 4. Calcification is at the bilateral kidneys which appear linear and likely atherosclerotic although could not exclude nonobstructing nephrolithiasis. No hydronephrosis in either kidney. 5. Unchanged mild likely reactive mediastinal lymphadenopathy. 6. Endotracheal tube, nasogastric tube and suprapubic Butt catheter all in expected positions. Venous Doppler Study 08/18/24 14:42 IMPRESSION: 1. Bilateral [id number] deep venous thrombosis in the left and right posterior tibial veins. Findings were discussed with the ICU nurse Carlos Herrera at 2:45 PM. Renal Ultrasound 08/19/24 14:10 IMPRESSION: No hydronephrosis or renal calculi. Findings suggesting medical renal disease. Findings within the upper pole of the right kidney consistent with patient's history, as detailed above. Chest X-Ray 08/21/24 06:54 IMPRESSION: 1. Continued improvement in patchy bilateral airspace opacities which could represent pneumonia or pulmonary edema. 2. Decreasing very small bilateral pleural effusions. Abdomen X-Ray 08/21/24 08:25 IMPRESSION: 1. Nonspecific paucity of bowel gas with no dilated gas-filled loops of bowel to suggest obstruction. Labs Labs: Laboratory Results - last 24 hr 08/19/24 08/20/24 08/20/24 07:00 16:11 17:57 WBC RBC Hgb Hct MCV MCH MCHC RDW Plt Count MPV APTT 63.3 H Puncture Site ABG pH ABG pCO2 ABG pO2 ABG PO2/FiO2 Ratio ABG HCO3 ABG O2 Saturation ABG O2 Content ABG Base Excess A-a Gradient Oxyhemoglobin Carboxyhemoglobin Methemoglobin Reduced Hemoglobin Total Hemoglobin O2 Delivery Device O2 Liters/Min Minute Volume Vent Rate Vent Mode FiO2 Tidal Volume PEEP Peak Inspir Pressure Pressure Support Sodium Potassium Chloride Carbon Dioxide Anion Gap BUN Creatinine Estim Creat Clear Calc Estimated GFR Glucose POC Capillary Glucose 362 H Calcium Phosphorus Magnesium Total Bilirubin AST ALT Alkaline Phosphatase Total Protein Albumin Random Vancomycin Hep B Core Total Ab Non-reactive 08/20/24 08/20/24 08/21/24 20:37 23:04 00:24 WBC RBC Hgb Hct MCV MCH MCHC RDW Plt Count MPV APTT 75.4 H Puncture Site ABG pH ABG pCO2 ABG pO2 ABG PO2/FiO2 Ratio ABG HCO3 ABG O2 Saturation ABG O2 Content ABG Base Excess A-a Gradient Oxyhemoglobin Carboxyhemoglobin Methemoglobin Reduced Hemoglobin Total Hemoglobin O2 Delivery Device O2 Liters/Min Minute Volume Vent Rate Vent Mode FiO2 Tidal Volume PEEP Peak Inspir Pressure Pressure Support Sodium Potassium Chloride Carbon Dioxide Anion Gap BUN Creatinine Estim Creat Clear Calc Estimated GFR Glucose POC Capillary Glucose 373 H 401 H Calcium Phosphorus Magnesium Total Bilirubin AST ALT Alkaline Phosphatase Total Protein Albumin Random Vancomycin Hep B Core Total Ab 08/21/24 08/21/24 08/21/24 00:40 04:21 04:54 WBC RBC Hgb Hct MCV MCH MCHC RDW Plt Count MPV APTT Puncture Site Right radial ABG pH 7.298 L* ABG pCO2 48.1 H ABG pO2 138.9 H ABG PO2/FiO2 Ratio 2.78 ABG HCO3 23.0 ABG O2 Saturation 98.5 ABG O2 Content 16.4 ABG Base Excess -3.6 A-a Gradient 163.5 Oxyhemoglobin 98.3 Carboxyhemoglobin 0.2 Methemoglobin 0.3 Reduced Hemoglobin 1.2 Total Hemoglobin 11.7 L O2 Delivery Device Ventilator O2 Liters/Min Not Reportable Minute Volume Not Reportable Vent Rate 18 Vent Mode Cmv FiO2 50 Tidal Volume 380 PEEP 10 Peak Inspir Pressure Not Reportable Pressure Support Not Reportable Sodium Potassium Chloride Carbon Dioxide Anion Gap BUN Creatinine Estim Creat Clear Calc Estimated GFR Glucose POC Capillary Glucose 400 H 410 H Calcium Phosphorus Magnesium Total Bilirubin AST ALT Alkaline Phosphatase Total Protein Albumin Random Vancomycin Hep B Core Total Ab 08/21/24 08/21/24 08/21/24 05:00 05:01 08:59 WBC 8.5 RBC 2.86 L Hgb 7.4 L Hct 24.7 L MCV 86.4 MCH 25.9 L MCHC 30.0 L RDW 18.0 H Plt Count 158 MPV 11.6 H APTT 76.0 H Puncture Site ABG pH ABG pCO2 ABG pO2 ABG PO2/FiO2 Ratio ABG HCO3 ABG O2 Saturation ABG O2 Content ABG Base Excess A-a Gradient Oxyhemoglobin Carboxyhemoglobin Methemoglobin Reduced Hemoglobin Total Hemoglobin O2 Delivery Device O2 Liters/Min Minute Volume Vent Rate Vent Mode FiO2 Tidal Volume PEEP Peak Inspir Pressure Pressure Support Sodium 137 Potassium 5.4 H Chloride 100 Carbon Dioxide 25 Anion Gap 12 BUN 49 H Creatinine 3.64 H Estim Creat Clear Calc 13 Estimated GFR 12 L Glucose 392 H POC Capillary Glucose 367 H Calcium 8.6 Phosphorus 6.0 H Magnesium 2.4 H Total Bilirubin 0.6 AST 1694 H ALT 1463 H Alkaline Phosphatase 129 H Total Protein 7.0 Albumin 3.5 Random Vancomycin 18.4 Hep B Core Total Ab 08/21/24 10:22 WBC RBC Hgb Hct MCV MCH MCHC RDW Plt Count MPV APTT Puncture Site ABG pH ABG pCO2 ABG pO2 ABG PO2/FiO2 Ratio ABG HCO3 ABG O2 Saturation ABG O2 Content ABG Base Excess A-a Gradient Oxyhemoglobin Carboxyhemoglobin Methemoglobin Reduced Hemoglobin Total Hemoglobin O2 Delivery Device O2 Liters/Min Minute Volume Vent Rate Vent Mode FiO2 Tidal Volume PEEP Peak Inspir Pressure Pressure Support Sodium Potassium Chloride Carbon Dioxide Anion Gap BUN Creatinine Estim Creat Clear Calc Estimated GFR Glucose POC Capillary Glucose 354 H Calcium Phosphorus Magnesium Total Bilirubin AST ALT Alkaline Phosphatase Total Protein Albumin Random Vancomycin Hep B Core Total Ab Quality VTE Prophylaxis VTE prophylaxis: mechanical ordered and pharmacologic ordered
[2024-08-21 12:33] LABS: Glucose Point of Care 374 mg/dl (65-105)
--- NOTE | 2024-08-21 12:46 | P.PNNP_ITS ---
Progress Note: A&P Assessment and Plan (1) Acute kidney injury: Code(s): N17.9 - Acute kidney failure, unspecified Status: Acute Assessment and Plan: * multifactorial etiology: * relative hypotension/hemodynamic instability * infection/early sepsis * IV diuresis/diuretics * contrast exposure (CTA chest on 08/15) * hypoxia * decline in urine output at this time * evaluation to date noted: * renal u/s without obstruction (but medical renal disease) * CPK mildly elevated (but not enough to affect kidney function) * urine electrolytes prerenal * moderate proteinuria * urine eosinophils negative * HD today later * will do the next treatment on Friday * still little volume overloaded I talked with who said it was okay to remove some fluid (2) Chronic kidney disease, stage 3: Code(s): N18.30 - Chronic kidney disease, stage 3 unspecified Status: Chronic Assessment and Plan: * baseline creatinine runs ~ 1.1 - 1.6mg/dl from early 2022 (from review of [facility] records) * this causes her to fluctuate between CKD stage 3A and stage 3B * presumably secondary to diabetes, hypertension, recurrent UTIs, and age- related change (3) Septic shock: Code(s): A41.9 - Sepsis, unspecified organism; R65.21 - Severe sepsis with septic shock Status: Acute Assessment and Plan: * presumably due to pneumonia * on vasopressor therapy to maintain MAP * on 0.04 of vasopressin and 4 of nor epi * stress dose steroids * will watch the blood pressure as we remove fluid (4) Acute respiratory failure with hypoxia: Code(s): J96.01 - Acute respiratory failure with hypoxia Status: Acute Assessment and Plan: * due to pneumonia and pulmonary edema/CHF * on full ventilator support * further imaging of chest noted * continue current therapy (bronchodilators, antibiotics...etc) * 30% FiO2 and minute volume is around 8. (5) Pneumonia: Code(s): J18.9 - Pneumonia, unspecified organism Status: Acute Assessment and Plan: * suggestive by admission * Blood culturesx4 negative today. Sputum culture done today is pending * on antibiotics (6) Congestive heart failure: Code(s): I50.9 - Heart failure, unspecified Status: Acute Assessment and Plan: * imaging suggestive of pulmonary edema * Echo results (from 3/31) noted: * normal biventricular size and systolic function * no significant valvular abnormalities * was receiveing IV diuretics prior to transfer to ICU * this is on hold due to #1 and hypotension * fluid removal with dialysis as tolerated * Cardiology following (7) Non-ST elevation myocardial infarction (NSTEMI): Code(s): I21.4 - Non-ST elevation (NSTEMI) myocardial infarction Status: Acute Assessment and Plan: * elevated troponins noted * Cardiolgy folloiwing * known history of coronary disease status post stenting * suspect demand ischemia in setting of her current respiratory failure/pneumonia * s/p heparin drip x 48 hours * continue medical management (8) DVT (deep venous thrombosis): Code(s): I82.409 - Acute embolism and thrombosis of unspecified deep veins of unspecified lower extremity Status: Acute Assessment and Plan: * as noted by venous dopplers: * bilateral [id number] deep venous thrombosis in the left and right posterior tibial veins * on heparin infusion (9) Right renal mass: Code(s): N28.89 - Other specified disorders of kidney and ureter Status: Acute Assessment and Plan: * suspicious for renal cell carcinoma * following with [facility] Urology * removal would require total right nepherectomy which would be high risk given patient's age * referred to radiation oncology for possible radiation therapy (10) Type 2 diabetes mellitus: Code(s): E11.9 - Type 2 diabetes mellitus without complications Status: Chronic Assessment and Plan: * follow accu-cheks * glycemic control per classifying machine operator/hospitalist Subjective Date/time seen: 08/21/24 12:46 Interval history: Patient is on ventilator. Sedated. Blood pressure doing pretty well but is still on pressors at a low dose. Exam Narrative: General: elderly female intubated/sedated and on mechanical ventilation Heart: normal S1 and S2; no rub or gallop Lungs: coarse upper airway breath sounds throughout Abdomen: soft, nontender, nondistended, positive bowel sounds Extremities: 1+ edema Skin: No rash Objective Data Vital Signs Vital Signs: Vital Signs - 24 hr 08/20/24 13:12 08/20/24 13:50 08/20/24 13:55 Temperature 101.4 F H Pulse Rate 84 84 Respiratory Rate Blood Pressure 80/51 L Pulse Oximetry 100 Oxygen Delivery Mechanical Ventilation Fraction of Inspired Oxygen 50 08/20/24 14:00 08/20/24 14:00 08/20/24 14:00 Temperature 101.7 F H Pulse Rate 83 86 86 Respiratory Rate 18 Blood Pressure 86/50 L 86/50 L Pulse Oximetry 99 Oxygen Delivery Fraction of Inspired Oxygen 08/20/24 14:00 08/20/24 14:00 08/20/24 14:30 Temperature Pulse Rate 84 84 82 Respiratory Rate 18 18 18 Blood Pressure Pulse Oximetry Oxygen Delivery Fraction of Inspired Oxygen 08/20/24 14:35 08/20/24 15:25 08/20/24 16:00 Temperature Pulse Rate 83 84 83 Respiratory Rate 9 L Blood Pressure 82/46 L 85/51 L 83/54 L Pulse Oximetry 96 Oxygen Delivery Fraction of Inspired Oxygen 08/20/24 16:00 08/20/24 16:00 08/20/24 16:00 Temperature Pulse Rate 84 84 Respiratory Rate 18 Blood Pressure Pulse Oximetry 97 Oxygen Delivery Mechanical Ventilation Fraction of Inspired Oxygen 50 50 08/20/24 16:00 08/20/24 16:00 08/20/24 16:00 Temperature Pulse Rate 81 78 86 Respiratory Rate 18 18 Blood Pressure 83/54 L Pulse Oximetry Oxygen Delivery Fraction of Inspired Oxygen 08/20/24 16:27 08/20/24 17:06 08/20/24 17:20 Temperature 101.1 F H Pulse Rate 81 78 Respiratory Rate Blood Pressure 85/52 L Pulse Oximetry 98 Oxygen Delivery Mechanical Ventilation Fraction of Inspired Oxygen 50 08/20/24 18:00 08/20/24 18:00 08/20/24 18:00 Temperature 101.5 F H Pulse Rate 77 79 78 Respiratory Rate 19 Blood Pressure 93/61 L 91/54 L Pulse Oximetry 97 Oxygen Delivery Fraction of Inspired Oxygen 08/20/24 18:00 08/20/24 18:00 08/20/24 18:38 Temperature 100.5 F H Pulse Rate 76 79 Respiratory Rate 18 18 Blood Pressure Pulse Oximetry Oxygen Delivery Fraction of Inspired Oxygen 08/20/24 20:00 08/20/24 20:00 08/20/24 20:00 Temperature Pulse Rate 73 73 73 Respiratory Rate 18 18 Blood Pressure 107/52 L Pulse Oximetry Oxygen Delivery Fraction of Inspired Oxygen 08/20/24 20:00 08/20/24 20:00 08/20/24 20:00 Temperature Pulse Rate 96 Respiratory Rate Blood Pressure Pulse Oximetry Oxygen Delivery Mechanical Ventilation Fraction of Inspired Oxygen 50 50 08/20/24 20:00 08/20/24 21:05 08/20/24 21:23 Temperature 101.4 F H 101.4 F H Pulse Rate 96 70 Respiratory Rate 18 Blood Pressure 107/52 L 101/60 Pulse Oximetry 98 Oxygen Delivery Fraction of Inspired Oxygen 08/20/24 21:23 08/20/24 21:49 08/20/24 21:54 Temperature Pulse Rate 71 70 72 Respiratory Rate 18 Blood Pressure 121/61 Pulse Oximetry 100 Oxygen Delivery Mechanical Ventilation Fraction of Inspired Oxygen 50 08/20/24 21:58 08/20/24 21:59 08/20/24 21:59 Temperature Pulse Rate 72 70 70 Respiratory Rate 18 Blood Pressure Pulse Oximetry Oxygen Delivery Fraction of Inspired Oxygen 08/20/24 22:00 08/20/24 22:00 08/20/24 22:00 Temperature 99.7 F H Pulse Rate 69 70 70 Respiratory Rate 18 18 Blood Pressure 120/65 Pulse Oximetry 100 Oxygen Delivery Fraction of Inspired Oxygen 08/20/24 22:00 08/20/24 22:03 08/20/24 22:06 Temperature 99.7 F H Pulse Rate 70 65 Respiratory Rate Blood Pressure 120/65 120/65 Pulse Oximetry Oxygen Delivery Fraction of Inspired Oxygen 08/20/24 22:26 08/20/24 22:35 08/20/24 23:14 Temperature Pulse Rate 64 68 64 Respiratory Rate Blood Pressure 114/60 114/60 116/62 Pulse Oximetry Oxygen Delivery Fraction of Inspired Oxygen 08/20/24 23:35 08/21/24 00:00 08/21/24 00:00 Temperature Pulse Rate 67 66 Respiratory Rate Blood Pressure 117/66 Pulse Oximetry 100 Oxygen Delivery Mechanical Ventilation Mechanical Ventilation Fraction of Inspired Oxygen 50 50 08/21/24 00:00 08/21/24 00:00 08/21/24 00:00 Temperature 100.4 F H Pulse Rate 63 63 Respiratory Rate 18 Blood Pressure 117/66 Pulse Oximetry 100 Oxygen Delivery Fraction of Inspired Oxygen 50 08/21/24 00:16 08/21/24 00:27 08/21/24 00:27 Temperature Pulse Rate 65 64 65 Respiratory Rate 18 18 Blood Pressure 125/61 Pulse Oximetry Oxygen Delivery Fraction of Inspired Oxygen 08/21/24 00:36 08/21/24 01:19 08/21/24 01:30 Temperature Pulse Rate 64 59 L 62 Respiratory Rate Blood Pressure 118/66 108/66 100/58 L Pulse Oximetry Oxygen Delivery Fraction of Inspired Oxygen 08/21/24 02:00 08/21/24 02:00 08/21/24 02:10 Temperature 99.7 F H Pulse Rate 61 61 60 Respiratory Rate 18 Blood Pressure 105/61 Pulse Oximetry 100 100 Oxygen Delivery Mechanical Ventilation Fraction of Inspired Oxygen 50 08/21/24 02:20 08/21/24 02:20 08/21/24 02:24 Temperature Pulse Rate 58 L 58 L 58 L Respiratory Rate 18 18 Blood Pressure 105/59 L Pulse Oximetry Oxygen Delivery Fraction of Inspired Oxygen 08/21/24 02:25 08/21/24 02:43 08/21/24 02:43 Temperature Pulse Rate 58 L 62 62 Respiratory Rate 18 18 Blood Pressure 105/59 L Pulse Oximetry Oxygen Delivery Fraction of Inspired Oxygen 08/21/24 04:00 08/21/24 04:00 08/21/24 04:00 Temperature Pulse Rate 61 60 Respiratory Rate Blood Pressure 104/59 L Pulse Oximetry Oxygen Delivery Mechanical Ventilation Fraction of Inspired Oxygen 50 08/21/24 04:00 08/21/24 04:00 08/21/24 04:14 Temperature 99.5 F Pulse Rate 60 61 Respiratory Rate 18 18 Blood Pressure 104/59 L Pulse Oximetry 100 Oxygen Delivery Fraction of Inspired Oxygen 50 08/21/24 04:14 08/21/24 04:15 08/21/24 04:30 Temperature Pulse Rate 61 61 60 Respiratory Rate 18 Blood Pressure 104/59 L Pulse Oximetry 100 Oxygen Delivery Mechanical Ventilation Fraction of Inspired Oxygen 50 08/21/24 05:57 08/21/24 06:00 08/21/24 06:00 Temperature Pulse Rate 60 62 60 Respiratory Rate 18 18 Blood Pressure 93/56 L Pulse Oximetry Oxygen Delivery Fraction of Inspired Oxygen 08/21/24 06:00 08/21/24 06:00 08/21/24 06:01 Temperature Pulse Rate 61 61 61 Respiratory Rate 18 Blood Pressure 93/56 L 93/56 L Pulse Oximetry 99 Oxygen Delivery Fraction of Inspired Oxygen 08/21/24 06:20 08/21/24 07:44 08/21/24 08:00 Temperature 99.2 F Pulse Rate 61 59 L Respiratory Rate 22 H Blood Pressure 100/60 Pulse Oximetry 96 95 Oxygen Delivery Mechanical Ventilation Fraction of Inspired Oxygen 30 30 08/21/24 08:00 08/21/24 08:00 08/21/24 08:00 Temperature Pulse Rate 60 60 Respiratory Rate 22 H 22 H Blood Pressure Pulse Oximetry Oxygen Delivery Fraction of Inspired Oxygen 30 08/21/24 08:00 08/21/24 08:00 08/21/24 08:00 Temperature Pulse Rate 61 60 Respiratory Rate Blood Pressure 100/58 L 100/58 L Pulse Oximetry 95 Oxygen Delivery Mechanical Ventilation Fraction of Inspired Oxygen 30 08/21/24 08:00 08/21/24 10:00 08/21/24 10:00 Temperature 99.1 F Pulse Rate 63 61 59 L Respiratory Rate 22 H 22 H Blood Pressure 103/62 Pulse Oximetry 93 Oxygen Delivery Fraction of Inspired Oxygen 08/21/24 10:00 08/21/24 10:00 08/21/24 10:00 Temperature Pulse Rate 59 L 59 L 59 L Respiratory Rate 22 H Blood Pressure 103/62 103/62 Pulse Oximetry Oxygen Delivery Fraction of Inspired Oxygen 08/21/24 10:00 08/21/24 11:22 08/21/24 12:00 Temperature 99.1 F Pulse Rate 58 L 59 L 59 L Respiratory Rate 22 H Blood Pressure 104/64 Pulse Oximetry 94 94 Oxygen Delivery Mechanical Ventilation Fraction of Inspired Oxygen 30 08/21/24 12:00 08/21/24 12:00 08/21/24 12:00 Temperature Pulse Rate 59 L 59 L 59 L Respiratory Rate 22 H 22 H Blood Pressure 104/64 Pulse Oximetry Oxygen Delivery Fraction of Inspired Oxygen 08/21/24 12:00 08/21/24 12:00 08/21/24 12:00 Temperature Pulse Rate 59 L 59 L Respiratory Rate Blood Pressure 104/64 Pulse Oximetry Oxygen Delivery Fraction of Inspired Oxygen 30 08/21/24 12:00 Temperature Pulse Rate Respiratory Rate Blood Pressure Pulse Oximetry 94 Oxygen Delivery Mechanical Ventilation Fraction of Inspired Oxygen 30 Intake/Output Intake/Output: Intake & Output 08/18/24 08/19/24 08/20/24 08/21/24 23:59 23:59 23:59 23:59 Intake Total 2038.5 2655.2 2696.1 680.9 Output Total 650 1100 2685 1580 Balance 1388.5 1555.2 11.1 -899.1 Meds/Results Medications: Active Medications Generic Name Dose Route Start Last Admin Trade Name Freq PRN Reason Stop Dose Admin Acetaminophen 650 mg 08/18/24 21:48 08/20/24 21:05 Acetaminophen Elixir 325 Mg/10.15 Ml Udc PO 650 mg Q4H PRN Administration Mild Pain (1-3) or Fever Dextrose 12.5 gm 08/18/24 05:53 Dextrose 50% 25 Gm/50 Ml Syringe IV PUSH PRN PRN Hypoglycemia Protocol Epoetin Oliver-epbx 10,000 units 08/21/24 18:31 Epoetin Oliver-Epbx 10,000 Units/Ml Vial IV PUSH 08/21/24 18:32 ONCE ONE Glucagon 1 mg 08/18/24 05:53 Glucagon For Inj 1 Mg Vial IM PRN PRN Hypoglycemia Protocol Glucose 15 gm 08/18/24 05:53 Glucose Oral Gel 15 Gm Of Glucse In 37.5 Gm Tube PO PRN PRN Hypoglycemia Protocol Heparin Sodium (Porcine) 5,500 units 08/18/24 15:05 08/18/24 23:23 Heparin Sodium 5,000 Units/Ml Vial IV PUSH 5,500 units PRN PRN Administration aPTT less than 55 seconds Heparin Sodium (Porcine) 3,000 units 08/18/24 15:05 08/20/24 17:03 Heparin Sodium 5,000 Units/Ml Vial IV PUSH 3,000 units PRN PRN Administration aPTT 55 - 70 seconds Fentanyl Citrate 2,500 mcg in 250 mls @ 2.5 mls/hr 08/18/24 00:55 08/21/24 12:00 Fentanyl 2,500 Mcg/Ns 250 Ml IV CONT 25 mcg/hr .Q72H TEMI 2.5 mls/hr Titration Protocol 25 MCG/HR Midazolam HCl 100 mg in 100 mls @ 3 mls/hr 08/18/24 00:55 08/21/24 12:00 Versed 100 Mg/Ns 100 Ml IV CONT 3 mg/hr .[id number] TEMI 3 mls/hr Titration Protocol 3 MG/HR Dextrose 1,000 mls @ 100 mls/hr 08/18/24 05:53 Dextrose 5% 1,000 Ml IVPB PRN PRN Hypoglycemia Protocol Heparin Sodium/Dextrose 25,000 units in 250 mls @ 18 mls/hr 08/18/24 15:05 08/21/24 11:44 Heparin Sodium/D5w 100 Units/Ml IV CONT 1,800 units/hr .[id number] TEMI 18 mls/hr Administration Protocol 1,800 UNITS/HR Norepinephrine Bitartrate 8 mg in 250 mls @ 9.375 mls/hr 08/19/24 12:30 08/21/24 12:00 Levophed 8 Mg/D5w 250 Ml IV CONT 5 mcg/min .Q24H TEMI 9.38 mls/hr Titration Protocol 5 MCG/MIN Cefepime HCl 1 gm in 50 mls @ 100 mls/hr 08/20/24 21:00 08/20/24 21:35 Maxipime 1 Gm/Ns 50 Ml IVPB Infused QHS TEMI Infusion Vasopressin 100 units/ 100 mls @ 2.4 mls/hr 08/20/24 21:05 08/21/24 12:00 Dextrose IV CONT 0.04 units/min .[id number] TEMI 2.4 mls/hr Titration Protocol 0.04 UNITS/MIN Albumin Human 50 mls @ 999 mls/hr 08/21/24 06:28 Albutein IVPB 09/20/24 06:27 Q10M PRN HYPOTENSION Vancomycin HCl 750 mg in 250 mls @ 250 mls/hr 08/21/24 15:00 Vancomycin 750 Mg/Ns 250 Ml IVPB 08/21/24 15:59 ONCE ONE Insulin Aspart 4 - 8 units 08/20/24 21:05 08/21/24 12:07 Insulin Aspart (*Bkc) 100 Units/Ml SUB-Q 8 units Q4HR TEMI Administration Protocol Insulin Glargine 20 units 08/21/24 09:00 08/21/24 09:04 Insulin Glargine (*Bkc) 100 Units/Ml SUB-Q 20 units QAM TEMI Administration Ipratropium Sloan 0.5 mg 08/20/24 07:40 Ipratropium Br 0.02% Inh Soln 0.5 Mg/2.5 Ml Vial INHALATION Q6HRT PRN Wheezing Levalbuterol HCl 1.25 mg 08/20/24 07:40 Levalbuterol Neb 1.25 Mg/3 Ml INHALATION Q6HRT PRN Wheezing Metoclopramide HCl 10 mg 08/21/24 07:50 08/21/24 09:03 Metoclopramide Hcl 10 Mg/10 Ml Soln Udc PO 10 mg Q6H TEMI Administration Midazolam HCl 2 mg 08/19/24 02:59 08/19/24 05:16 Midazolam Hcl (*Crx) 2 Mg/2 Ml Vial IV PUSH 2 mg Q1HR PRN Administration Agitation Multi-Ingred Cream/Lotion/Oil/Oint 1 applic 08/18/24 09:00 08/21/24 09:04 Mineral Oil/White Petrolatum Ointment EACH EYE 1 applic Q12HR TEMI Administration Mupirocin 1 applic 08/15/24 21:00 08/21/24 09:04 Mupirocin 2% Oint 22 Gm Tube EACH NARE 1 applic Q12HR TEMI Administration Pantoprazole Sodium 40 mg 08/19/24 09:00 08/21/24 09:03 Pantoprazole Sodium Iv 40 Mg Vial IV PUSH 40 mg QAM TEMI Administration Polyethylene Glycol 17 gm 08/15/24 22:20 08/21/24 09:17 Polyethylene Glycol 3350 17 Gm Powd.Pack PO 17 gm DAILY PRN Administration constipation Sodium Chloride 10 ml 08/19/24 22:00 08/21/24 05:54 Central Line Flush IV PUSH 10 ml Q8HR TEMI Administration Sodium Chloride 20 ml 08/19/24 18:43 Central Line Flush IV PUSH PRN PRN after blood draws Vancomycin HCl 1 each 08/20/24 09:39 Vancomycin For Hemodialysis IVPB PRN PRN Vancomycin Protocol Radiology Results: ITS Impressions Chest CTA 08/15/24 11:11 IMPRESSION: No pulmonary embolus. No thoracic aortic dissection. Right upper lobe infiltrate with patchy bilateral airspace disease, likely inflammatory/congestive rather than infectious. Small bilateral pleural effusions with adjacent atelectasis. Chest/Abdomen/Pelvis CT 08/18/24 12:28 IMPRESSION: 1. Significant interval progression in an lobar pneumonia along with increasing small bilateral pleural effusions. 2. No acute intra-abdominal/pelvic process. 3. Subtle 2.5 cm mass at the upper pole of the right kidney consistent with provided history of renal tumor. 4. Calcification is at the bilateral kidneys which appear linear and likely atherosclerotic although could not exclude nonobstructing nephrolithiasis. No hydronephrosis in either kidney. 5. Unchanged mild likely reactive mediastinal lymphadenopathy. 6. Endotracheal tube, nasogastric tube and suprapubic Butt catheter all in expected positions. Venous Doppler Study 08/18/24 14:42 IMPRESSION: 1. Bilateral [id number]-[id number] deep venous thrombosis in the left and right posterior tibial veins. Findings were discussed with the ICU nurse Carlos Herrera at 2:45 PM. Renal Ultrasound 08/19/24 14:10 IMPRESSION: No hydronephrosis or renal calculi. Findings suggesting medical renal disease. Findings within the upper pole of the right kidney consistent with patient's history, as detailed above. Chest X-Ray 08/21/24 06:54 IMPRESSION: 1. Continued improvement in patchy bilateral airspace opacities which could represent pneumonia or pulmonary edema. 2. Decreasing very small bilateral pleural effusions. Abdomen X-Ray 08/21/24 08:25 IMPRESSION: 1. Nonspecific paucity of bowel gas with no dilated gas-filled loops of bowel to suggest obstruction. Labs Labs: Laboratory Results - last 24 hr 08/19/24 08/20/24 08/20/24 07:00 16:11 17:57 WBC RBC Hgb Hct MCV MCH MCHC RDW Plt Count MPV APTT 63.3 H Puncture Site ABG pH ABG pCO2 ABG pO2 ABG PO2/FiO2 Ratio ABG HCO3 ABG O2 Saturation ABG O2 Content ABG Base Excess A-a Gradient Oxyhemoglobin Carboxyhemoglobin Methemoglobin Reduced Hemoglobin Total Hemoglobin O2 Delivery Device O2 Liters/Min Minute Volume Vent Rate Vent Mode FiO2 Tidal Volume PEEP Peak Inspir Pressure Pressure Support Sodium Potassium Chloride Carbon Dioxide Anion Gap BUN Creatinine Estim Creat Clear Calc Estimated GFR Glucose POC Capillary Glucose 362 H Calcium Phosphorus Magnesium Total Bilirubin AST ALT Alkaline Phosphatase Total Protein Albumin Random Vancomycin Hep B Core Total Ab Non-reactive 08/20/24 08/20/24 08/21/24 20:37 23:04 00:24 WBC RBC Hgb Hct MCV MCH MCHC RDW Plt Count MPV APTT 75.4 H Puncture Site ABG pH ABG pCO2 ABG pO2 ABG PO2/FiO2 Ratio ABG HCO3 ABG O2 Saturation ABG O2 Content ABG Base Excess A-a Gradient Oxyhemoglobin Carboxyhemoglobin Methemoglobin Reduced Hemoglobin Total Hemoglobin O2 Delivery Device O2 Liters/Min Minute Volume Vent Rate Vent Mode FiO2 Tidal Volume PEEP Peak Inspir Pressure Pressure Support Sodium Potassium Chloride Carbon Dioxide Anion Gap BUN Creatinine Estim Creat Clear Calc Estimated GFR Glucose POC Capillary Glucose 373 H 401 H Calcium Phosphorus Magnesium Total Bilirubin AST ALT Alkaline Phosphatase Total Protein Albumin Random Vancomycin Hep B Core Total Ab 08/21/24 08/21/24 08/21/24 00:40 04:21 04:54 WBC RBC Hgb Hct MCV MCH MCHC RDW Plt Count MPV APTT Puncture Site Right radial ABG pH 7.298 L* ABG pCO2 48.1 H ABG pO2 138.9 H ABG PO2/FiO2 Ratio 2.78 ABG HCO3 23.0 ABG O2 Saturation 98.5 ABG O2 Content 16.4 ABG Base Excess -3.6 A-a Gradient 163.5 Oxyhemoglobin 98.3 Carboxyhemoglobin 0.2 Methemoglobin 0.3 Reduced Hemoglobin 1.2 Total Hemoglobin 11.7 L O2 Delivery Device Ventilator O2 Liters/Min Not Reportable Minute Volume Not Reportable Vent Rate 18 Vent Mode Cmv FiO2 50 Tidal Volume 380 PEEP 10 Peak Inspir Pressure Not Reportable Pressure Support Not Reportable Sodium Potassium Chloride Carbon Dioxide Anion Gap BUN Creatinine Estim Creat Clear Calc Estimated GFR Glucose POC Capillary Glucose 400 H 410 H Calcium Phosphorus Magnesium Total Bilirubin AST ALT Alkaline Phosphatase Total Protein Albumin Random Vancomycin Hep B Core Total Ab 08/21/24 08/21/24 08/21/24 05:00 05:01 08:59 WBC 8.5 RBC 2.86 L Hgb 7.4 L Hct 24.7 L MCV 86.4 MCH 25.9 L MCHC 30.0 L RDW 18.0 H Plt Count 158 MPV 11.6 H APTT 76.0 H Puncture Site ABG pH ABG pCO2 ABG pO2 ABG PO2/FiO2 Ratio ABG HCO3 ABG O2 Saturation ABG O2 Content ABG Base Excess A-a Gradient Oxyhemoglobin Carboxyhemoglobin Methemoglobin Reduced Hemoglobin Total Hemoglobin O2 Delivery Device O2 Liters/Min Minute Volume Vent Rate Vent Mode FiO2 Tidal Volume PEEP Peak Inspir Pressure Pressure Support Sodium 137 Potassium 5.4 H Chloride 100 Carbon Dioxide 25 Anion Gap 12 BUN 49 H Creatinine 3.64 H Estim Creat Clear Calc 13 Estimated GFR 12 L Glucose 392 H POC Capillary Glucose 367 H Calcium 8.6 Phosphorus 6.0 H Magnesium 2.4 H Total Bilirubin 0.6 AST 1694 H ALT 1463 H Alkaline Phosphatase 129 H Total Protein 7.0 Albumin 3.5 Random Vancomycin 18.4 Hep B Core Total Ab 08/21/24 08/21/24 10:22 11:38 WBC RBC Hgb Hct MCV MCH MCHC RDW Plt Count MPV APTT Puncture Site ABG pH ABG pCO2 ABG pO2 ABG PO2/FiO2 Ratio ABG HCO3 ABG O2 Saturation ABG O2 Content ABG Base Excess A-a Gradient Oxyhemoglobin Carboxyhemoglobin Methemoglobin Reduced Hemoglobin Total Hemoglobin O2 Delivery Device O2 Liters/Min Minute Volume Vent Rate Vent Mode FiO2 Tidal Volume PEEP Peak Inspir Pressure Pressure Support Sodium Potassium Chloride Carbon Dioxide Anion Gap BUN Creatinine Estim Creat Clear Calc Estimated GFR Glucose POC Capillary Glucose 354 H 374 H Calcium Phosphorus Magnesium Total Bilirubin AST ALT Alkaline Phosphatase Total Protein Albumin Random Vancomycin Hep B Core Total Ab
[2024-08-21] MEDS: NOREPINEPHRINE 8 MG/D5W 250 ML 8 MG/250 ML BAG 13.13 MG IV CONT (17:34)
[2024-08-21 17:50] LABS: Glucose Point of Care 213 mg/dl (65-105)
[2024-08-21] MEDS: EPOETIN ALFA-EPBX 10,000 UNITS/ML VIAL 10000 UNITS IV PUSH (17:50)
--- NOTE | 2024-08-21 20:13 | ECG_ITS ---
Test Date: 2024-08-21 20:18:55 Measurements Intervals [place] Rate: 115 P: 0 NV: 0 QRS: -83 QRSD: 116 T: 21 QT: 274 QTc: 380 Interpretive Statements ATRIAL FIBRILLATION WITH RAPID VENTRICULAR RESPONSE LEFT AXIS DEVIATION INCOMPLETE RIGHT BUNDLE BRANCH BLOCK CONSIDER INFERIOR INFARCT, AGE INDETERMINATE ABNORMAL ECG Compared to ECG 08/18/2024 01:19:18 ATRIAL FIBRILLATION NOW PRESENT Electronically Signed On 08-21-2024 20:27:02 CDT by Davy Rivera D.O.
[2024-08-21 20:23] LABS: Glucose Point of Care 226 mg/dl (65-105)
[2024-08-21] MEDS: CEFEPIME 1 GM/NS 50 ML 1 GM/50 ML BAG IVPB (20:24)
[2024-08-21] MEDS: VANCOMYCIN 750 MG/NS 250 ML 750 MG/250 ML BAG 250 MG IVPB (20:46)
[2024-08-21] MEDS: AMIODARONE 150 MG/D5W 100 ML 150 MG/100 ML BAG 600 MG IV CONT (21:23)
[2024-08-21] MEDS: AMIODARONE 360 MG/D5W 200 ML 360 MG/200 ML BAG 33.33 MG IV CONT (21:48)
[2024-08-21 23:58] LABS: Glucose Point of Care 280 mg/dl (65-105)
[2024-08-22] VITALS (38 sets, daily range): BP systolic 88–116; BP diastolic 45–77; PULSE 57–103; RESP 22–27; TEMP 37.1–38; O2SAT 93–99
[2024-08-22] MEDS: VASOPRESSIN INJ 100 UNITS in DEXTROSE 5% 95 ML IV CONT (00:19)
[2024-08-22] MEDS: INSULIN ASPART (*BKC) 100 UNITS/ML SUB-Q ×6 (00:19→21:13)
[2024-08-22] MEDS: HEPARIN SOD/D5W 100 UNITS/ML 25,000 UNITS/250 ML BAG 18 UNITS IV CONT (00:24)
[2024-08-22] MEDS: METOCLOPRAMIDE HCL 10 MG/10 ML SOLN UDC PO ×4 (01:32→18:59)
[2024-08-22] MEDS: MIDAZOLAM 100MG/NS 100ML(*CRX) 100 MG/100 ML BAG IV CONT (03:28)
[2024-08-22] MEDS: AMIODARONE 360 MG/D5W 200 ML 360 MG/200 ML BAG 16.67 MG IV CONT (03:29)
[2024-08-22 04:17] LABS: Glucose Point of Care 286 mg/dl (65-105)
[2024-08-22] MEDS: CENTRAL LINE FLUSH 10 ML IV PUSH ×3 (05:09→21:16)
[2024-08-22 05:10] LABS: Alveolar/Arterial O2 Gradient 126.7 mmHg; Base Excess ABG 1.6 mEq/l (+/-2.0); Carboxyhemoglobin 0.1 % THb (0-2.0); Fractional Inspired Oxygen 35 %; HCO3 ABG 25.6 mEq/l (22.0-26.0); Methemoglobin ABG 0.3 %THb (0-1.5); Oxygen Content ABG 13.8 %vol (16.0-22.0); Oxygen Saturation ABG 96.2 % (95.0-100.0); PCO2 ABG 37.8 mmHg (35.0-45.0); PO2 ABG 78.9 mmHg (80.0-100.0); PO2 FiO2 Ratio Arterial Blood 2.25 %; Reduced Hemoglobin 4.6 %THb (0-5.0); Total Hemoglobin 10.3 g/dL (12.0-18.0); pH ABG 7.448 (7.350-7.450)
[2024-08-22 05:14] LABS: Device VENTILATOR; Modified Allen's Test Pass; Site Drawn LEFT RADIAL
[2024-08-22 05:15] LABS: Arterial Blood Gas PEEP 8 cmH2O; Arterial Blood Gas Tidal Volume 380 ml; Arterial Blood Gas Vent Mode CMV; Arterial Blood Gas Ventilator rate 22 /MIN
[2024-08-22 05:23] LABS: Hematocrit 24.2 % (37.0-47.0); Hemoglobin 7.4 g/dL (12.0-15.0); Mean Corpuscular HGB Conc 30.6 g/dl (32-36); Mean Corpuscular Hemoglobin 25.7 pg (26-34); Mean Platelet Volume 11.5 fl (7.4-10.4); Platelet Count Result 185 k/mm3 (150-375); Red Blood Count 2.88 M/mm3 (4.2-5.4); Red Cell Distribution Width 17.6 % (11.5-14.5); White Blood Count 11.7 K/mm3 (4.5-10.0)
[2024-08-22 05:35] LABS: Partial Thromboplastin Time 66.4 Seconds (22.3-36.8)
[2024-08-22] MEDS: HEPARIN SODIUM 5,000 UNITS/ML VIAL 3000 UNITS IV PUSH ×3 (05:41→19:27)
[2024-08-22 05:44] LABS: Vancomycin Random 19.7 ug/mL (10-20)
[2024-08-22 05:50] LABS: Albumin Level 3.2 g/dL (3.5-5.1); Alkaline Phosphatase 124 U/L (38-126); Anion Gap 13 mmol/L (4-12); Aspartate Amino Transferase 388 U/L (14-36); Bilirubin,Total 0.5 mg/dL (0.2-1.3); Blood Urea Nitrogen 42 mg/dL (7-17); Calcium 8.4 mg/dL (8.4-10.2); Carbon Dioxide 25 mmol/L (22-30); Chloride 98 mmol/L (98-107); Estimated CRCL calculation 18 ml/min; Estimated Glomerular Filt Rate 19; Glucose 304 mg/dL (65-110); Magnesium 2.2 mg/dL (1.6-2.3); Phosphorus 3.6 mg/dL (2.5-4.5); Potassium 3.5 mmol/L (3.4-5.0); Sodium 136 mmol/L (137-145)
[2024-08-22 05:56] LABS: Alanine Aminotransferase 945 U/L (6-35)
[2024-08-22] MEDS: IPRATROPIUM BR 0.02% INH SOLN 0.5 MG/2.5 ML VIAL INHALATION ×2 (07:17→19:54)
[2024-08-22] MEDS: LEVALBUTEROL NEB 1.25 MG/3 ML INHALATION ×2 (07:17→19:54)
[2024-08-22] MEDS: PANTOPRAZOLE SODIUM IV 40 MG VIAL IV PUSH (08:16)
[2024-08-22] MEDS: POTASSIUM CHLORIDE 20 MEQ PACKET (FOR LIQUID) PO (08:16)
[2024-08-22] MEDS: polyethylene glycoL 3350 17 GM POWD.PACK PO (08:16)
--- NOTE | 2024-08-22 08:31 | WPDINTPN ---
Progress Note: A&P Assessment and Plan (1) Acute respiratory failure with hypoxia: Code(s): J96.01 - Acute respiratory failure with hypoxia Status: Acute Assessment and Plan: Acute Respiratory failure secondary to combination of pneumonia and congestive heart failure Patient now intubated and on mechanical ventilation. Ventilator settings, ABG and chest reviewed Currently on PEEP of 10 and I have wean down FiO2 to 30%. Peep is at [address] chest 08/18 MPRESSION: 1. Significant interval progression in an lobar pneumonia along with increasing small bilateral pleural effusions. Patient has elevated procalcitonin and BNP she is positive on intake output balance but her echocardiogram shows normal biventricular size and systolic function Bronchodilators Blood cultures have been sent and pending. Pending sputum culture Urine Legionella antigen, mycoplasma pneumonia antibody and urine pneumococcal antigen negative Dialysis to remove fluid Continue vancomycin cefepime azithromycin Sedation holiday today Chest x-ray reviewed and shows bilateral infiltrates and effusion (2) Congestive heart failure: Code(s): I50.9 - Heart failure, unspecified Status: Acute Assessment and Plan: See above (3) Non-ST elevation myocardial infarction (NSTEMI): Code(s): I21.4 - Non-ST elevation (NSTEMI) myocardial infarction Status: Acute Assessment and Plan: History of coronary disease status post PCI in the past now presented with elevated troponin. Cardiology following Currently on aspirin Other medications on hold due to low blood pressure Statin Hold was slightly elevated LFTs. No plan for cardiac catheterization at this time. (4) Coronary artery disease: Code(s): I25.10 - Atherosclerotic heart disease of [place] coronary artery without angina pectoris Status: Acute Assessment and Plan: See above (5) Type 2 diabetes mellitus: Code(s): E11.9 - Type 2 diabetes mellitus without complications Status: Chronic Assessment and Plan: Sliding scale insulin Continue Lantus Off steroid (6) Renal failure: Code(s): N19 - Unspecified kidney failure Status: Acute Assessment and Plan: Patient presented with creatinine of 1.5. Baseline creatinine unknown She has suprapubic catheter. As per son patient has had a renal tumor which was being monitored and plan was to start radiation therapy by her urology CT scan showed Subtle 2.5 cm mass at the upper pole of the right kidney consistent with provided history of renal tumor. Calcification is at the bilateral kidneys which appear linear and likely atherosclerotic although could not exclude nonobstructing nephrolithiasis. No hydronephrosis in either kidney. Diuretics were held and patient was given albumin bolus Creatinine continue to increase with poor urine output. After discussion with patient's family and cleaning associate decision was made to initiate dialysis. 08/19 dialysis catheter was placed and patient was dialyzed 1 L fluid was removed 08/20 and 08/21 patient was dialyzed again Monitor urine output electrolytes and creatinine Nephrology follow (7) Pneumonia: Code(s): J18.9 - Pneumonia, unspecified organism Status: Acute Assessment and Plan: See above (8) Kidney mass: Code(s): N28.89 - Other specified disorders of kidney and ureter Status: Acute Assessment and Plan: Patient's son reports history of kidney mass which is being monitor as it was too big to be removed without total nephrectomy. He states that patient was supposed to get radiation therapy in a month or so before she fractured her ankle. CT scan shows 2.5 cm renal mass on the right side and no hydronephrosis. No intervention at this time (9) DVT (deep venous thrombosis): Code(s): I82.409 - Acute embolism and thrombosis of unspecified deep veins of unspecified lower extremity Status: Acute Assessment and Plan: Bilateral venous Dopplers obtained due to swelling in the legs. Ultrasound showed Bilateral [id number] deep venous thrombosis in the left and right posterior tibial veins. Findings were discussed with the ICU nurse Carlos Herrera at 2:45 PM. Patient started on heparin infusion (10) Septic shock: Code(s): A41.9 - Sepsis, unspecified organism; R65.21 - Severe sepsis with septic shock Status: Acute Assessment and Plan: Continue Levophed and vasopressin (11) Ileus: Code(s): K56.7 - Ileus, unspecified Status: Acute Assessment and Plan: Patient has significant output from her OG tube. She has not been tolerating tube feeds for last 2 days. She is on Reglan Bowel sounds are decreased. KUB does not show anything significant abnormal I will request IR for a post pyloric tube insertion and also obtain a CT abdomen pelvis tomorrow (12) Atrial fibrillation with RVR: Code(s): I48.91 - Unspecified atrial fibrillation Status: Acute Assessment and Plan: Patient went into AFib with RVR after hemodialysis session yesterday. She was started on amiodarone infusion. She has converted to sinus bradycardia this morning and I will discontinue it infusion at this time She is already on heparin infusion Plan DVT prophylaxis -Lovenox Stress ulcer prophylaxis - PPI Nutrition -tube feeds on hold as patient is not tolerating Code Status - Full Code 08/18 I spoke to and updated patient's son and his at bedside I answered all his questions. 08/19 I also met with patient's both sons at they wanted to proceed with hemodialysis. Total Critical Care Time - 32 minutes Due to a high probability of clinically significant, life threatening deterioration, the patient required my highest level of preparedness to intervene emergently and I personally spent this critical care time directly and personally managing the patient. This critical care time included obtaining a history; examining the patient; pulse oximetry; ordering and review of studies; arranging urgent treatment with development of a management plan; evaluation of patient's response to treatment; frequent reassessment; and discussions with other providers. It was exclusive of separately billable procedures and treating other patients and teaching time. Please see Assessment and Plan section and the rest of the note for further information on patient assessment and treatment Subjective Date/time seen: 08/22/24 Overnight events reviewed. Afebrile Continues to be on mechanical ventilation for FiO2 had to be increased to 40% overnight but is now down to 30% Continues to be on Levophed and vasopressin few Not tolerating tube feeds with high residuals and high output from OG tube despite low rate of tube feeds. Tube feeds were completely discontinued overnight. She went into AFib with RVR after her hemodialysis yesterday and was started on amiodarone infusion. She appears to have converted to sinus bradycardia this morning during my evaluation. Urine output remains poor Review of Systems Review of Systems: ROS unobtainable: Yes unobtainable due to endotracheal tube, unobtainable due to medical condition and unobtainable due to mental status Exam Narrative: General: Pt is sedated, intubated and on mechanical ventilation Lungs/Chest: Trachea central Coarse BS B/L, No crackles or wheezing. Cardiac: RRR. Normal S1 S2. No murmurs Circulation: Feet are cold Abdomen: Significant decrease bowel sounds. Obese. Soft. NT. ND. Extremities: Bilateral pitting edema : Butt in place Neurologic: Unable to assess due to sedation. . PERRL Objective Data Vital Signs Vital Signs: Vital Signs - 24 hr 04/05/25 10:00 08/21/24 10:00 08/21/24 10:00 Temperature 37.3 C Pulse Rate 61 59 L 59 L Respiratory Rate 22 H 22 H Blood Pressure 103/62 103/62 Pulse Oximetry 93 Oxygen Delivery Fraction of Inspired Oxygen 08/21/24 10:00 08/21/24 10:00 08/21/24 10:00 Temperature Pulse Rate 59 L 59 L 58 L Respiratory Rate 22 H Blood Pressure 103/62 Pulse Oximetry Oxygen Delivery Fraction of Inspired Oxygen 08/21/24 11:22 08/21/24 12:00 08/21/24 12:00 Temperature 37.3 C Pulse Rate 59 L 59 L 59 L Respiratory Rate 22 H 22 H Blood Pressure 104/64 Pulse Oximetry 94 94 Oxygen Delivery Mechanical Ventilation Fraction of Inspired Oxygen 30 08/21/24 12:00 08/21/24 12:00 08/21/24 12:00 Temperature Pulse Rate 59 L 59 L 59 L Respiratory Rate 22 H Blood Pressure 104/64 104/64 Pulse Oximetry Oxygen Delivery Fraction of Inspired Oxygen 08/21/24 12:00 08/21/24 12:00 08/21/24 12:00 Temperature Pulse Rate 59 L Respiratory Rate Blood Pressure Pulse Oximetry 94 Oxygen Delivery Mechanical Ventilation Fraction of Inspired Oxygen 30 30 08/21/24 13:58 08/21/24 14:00 08/21/24 14:00 Temperature Pulse Rate 58 L 56 L 57 L Respiratory Rate 22 H Blood Pressure 102/61 Pulse Oximetry 95 95 Oxygen Delivery Mechanical Ventilation Fraction of Inspired Oxygen 30 08/21/24 14:00 08/21/24 14:00 08/21/24 14:00 Temperature Pulse Rate 57 L 57 L 57 L Respiratory Rate 22 H 22 H Blood Pressure 102/61 Pulse Oximetry Oxygen Delivery Fraction of Inspired Oxygen 08/21/24 14:00 08/21/24 15:40 08/21/24 15:40 Temperature 37.3 C Pulse Rate 57 L 59 L Respiratory Rate 22 H Blood Pressure 102/61 103/55 L Pulse Oximetry 95 Oxygen Delivery Fraction of Inspired Oxygen 30 08/21/24 15:53 08/21/24 16:00 08/21/24 16:00 Temperature Pulse Rate 58 L 56 L 55 L Respiratory Rate Blood Pressure 105/55 L 89/53 L 89/53 L Pulse Oximetry Oxygen Delivery Fraction of Inspired Oxygen 04/05/25 16:00 08/21/24 16:00 08/21/24 16:00 Temperature 37.1 C Pulse Rate 54 L 57 L Respiratory Rate 22 H Blood Pressure 89/53 L Pulse Oximetry 95 Oxygen Delivery Fraction of Inspired Oxygen 30 08/21/24 16:00 08/21/24 16:00 08/21/24 16:00 Temperature Pulse Rate 56 L 56 L 56 L Respiratory Rate 22 H 22 H Blood Pressure 89/53 L Pulse Oximetry Oxygen Delivery Fraction of Inspired Oxygen 08/21/24 16:00 08/21/24 16:15 08/21/24 16:30 Temperature Pulse Rate 53 L 55 L Respiratory Rate Blood Pressure 83/50 L 87/50 L Pulse Oximetry 97 Oxygen Delivery Mechanical Ventilation Fraction of Inspired Oxygen 30 08/21/24 16:30 08/21/24 16:45 08/21/24 16:48 Temperature Pulse Rate 53 L 58 L 53 L Respiratory Rate Blood Pressure 87/50 L 107/65 Pulse Oximetry 97 Oxygen Delivery Mechanical Ventilation Fraction of Inspired Oxygen 30 08/21/24 17:00 08/21/24 17:15 08/21/24 17:30 Temperature Pulse Rate 53 L 52 L 52 L Respiratory Rate Blood Pressure 116/67 119/60 121/60 Pulse Oximetry Oxygen Delivery Fraction of Inspired Oxygen 08/21/24 17:34 08/21/24 17:34 08/21/24 17:45 Temperature Pulse Rate 51 L 51 L 52 L Respiratory Rate Blood Pressure 121/60 121/60 109/58 L Pulse Oximetry Oxygen Delivery Fraction of Inspired Oxygen 08/21/24 18:00 08/21/24 18:00 08/21/24 18:00 Temperature 37.1 C Pulse Rate 52 L 53 L 53 L Respiratory Rate 22 H 22 H Blood Pressure 108/56 L Pulse Oximetry 95 Oxygen Delivery Fraction of Inspired Oxygen 08/21/24 18:00 08/21/24 18:00 08/21/24 18:00 Temperature Pulse Rate 53 L 53 L 53 L Respiratory Rate 22 H Blood Pressure 108/56 L 108/56 L Pulse Oximetry Oxygen Delivery Fraction of Inspired Oxygen 08/21/24 18:00 08/21/24 18:15 08/21/24 18:30 Temperature Pulse Rate 52 L 52 L 58 L Respiratory Rate Blood Pressure 108/56 L 110/55 L 99/58 L Pulse Oximetry Oxygen Delivery Fraction of Inspired Oxygen 08/21/24 18:45 08/21/24 19:00 08/21/24 19:15 Temperature Pulse Rate 53 L 53 L 52 L Respiratory Rate Blood Pressure 91/51 L 103/53 L 103/53 L Pulse Oximetry Oxygen Delivery Fraction of Inspired Oxygen 08/21/24 19:25 08/21/24 19:35 08/21/24 20:00 Temperature 36.8 C Pulse Rate 52 L 56 L 125 H Respiratory Rate 22 H 22 H Blood Pressure 107/55 L 115/56 L Pulse Oximetry 92 Oxygen Delivery Fraction of Inspired Oxygen 08/21/24 20:00 08/21/24 20:00 08/21/24 20:00 Temperature 37.1 C Pulse Rate 125 H 125 H 124 H Respiratory Rate 22 H 22 H Blood Pressure 116/74 116/74 Pulse Oximetry 92 Oxygen Delivery Fraction of Inspired Oxygen 08/21/24 20:00 08/21/24 20:00 08/21/24 20:00 Temperature Pulse Rate 127 H Respiratory Rate Blood Pressure Pulse Oximetry 91 Oxygen Delivery Mechanical Ventilation Fraction of Inspired Oxygen 30 30 08/21/24 20:23 08/21/24 20:32 08/21/24 20:50 Temperature Pulse Rate 127 H 124 H 122 H Respiratory Rate Blood Pressure 120/65 118/67 Pulse Oximetry 91 Oxygen Delivery Mechanical Ventilation Fraction of Inspired Oxygen 40 08/21/24 21:23 08/21/24 21:42 08/21/24 21:48 Temperature Pulse Rate 111 H 96 121 H Respiratory Rate Blood Pressure 107/84 102/56 L Pulse Oximetry Oxygen Delivery Fraction of Inspired Oxygen 08/21/24 22:00 08/21/24 22:00 08/21/24 22:18 Temperature 36.9 C Pulse Rate 106 H 98 95 Respiratory Rate 22 H 22 H Blood Pressure 105/72 Pulse Oximetry 96 Oxygen Delivery Fraction of Inspired Oxygen 08/21/24 22:18 08/21/24 22:19 08/21/24 22:19 Temperature Pulse Rate 95 94 106 H Respiratory Rate 22 H Blood Pressure 96/65 L 96/65 L Pulse Oximetry Oxygen Delivery Fraction of Inspired Oxygen 08/21/24 22:59 08/21/24 23:38 08/22/24 00:00 Temperature 37.1 C Pulse Rate 93 94 102 H Respiratory Rate 22 H Blood Pressure 115/91 H 96/63 L Pulse Oximetry 97 98 Oxygen Delivery Mechanical Ventilation Fraction of Inspired Oxygen 35 08/22/24 00:00 08/22/24 00:00 08/22/24 00:00 Temperature Pulse Rate 103 H Respiratory Rate Blood Pressure Pulse Oximetry 97 Oxygen Delivery Mechanical Ventilation Fraction of Inspired Oxygen 30 40 08/22/24 00:00 08/22/24 00:00 08/22/24 00:00 Temperature Pulse Rate 91 91 91 Respiratory Rate 22 H 22 H Blood Pressure 96/63 L Pulse Oximetry Oxygen Delivery Fraction of Inspired Oxygen 08/22/24 00:00 08/22/24 00:19 08/22/24 01:51 Temperature Pulse Rate 91 89 90 Respiratory Rate Blood Pressure 96/63 L 102/77 Pulse Oximetry 96 Oxygen Delivery Mechanical Ventilation Fraction of Inspired Oxygen 35 08/22/24 02:00 08/22/24 02:00 08/22/24 02:00 Temperature Pulse Rate 87 90 90 Respiratory Rate 22 H 22 H 22 H Blood Pressure 100/56 L Pulse Oximetry 97 Oxygen Delivery Fraction of Inspired Oxygen 08/22/24 02:00 08/22/24 02:00 08/22/24 02:00 Temperature Pulse Rate 90 90 90 Respiratory Rate Blood Pressure 100/56 L 100/56 L 100/56 L Pulse Oximetry Oxygen Delivery Fraction of Inspired Oxygen 08/22/24 02:00 08/22/24 03:28 08/22/24 03:28 Temperature Pulse Rate 88 92 92 Respiratory Rate 22 H 22 H Blood Pressure Pulse Oximetry Oxygen Delivery Fraction of Inspired Oxygen 08/22/24 03:29 08/22/24 04:00 08/22/24 04:00 Temperature 37.1 C Pulse Rate 92 99 87 Respiratory Rate 22 H 22 H Blood Pressure 97/61 L 95/61 L Pulse Oximetry 97 Oxygen Delivery Fraction of Inspired Oxygen 08/22/24 04:00 08/22/24 04:00 08/22/24 04:00 Temperature Pulse Rate 87 87 87 Respiratory Rate 22 H Blood Pressure 100/59 L 100/59 L Pulse Oximetry Oxygen Delivery Fraction of Inspired Oxygen 08/22/24 04:00 08/22/24 04:00 08/22/24 04:00 Temperature Pulse Rate 87 85 Respiratory Rate Blood Pressure 100/59 L Pulse Oximetry 97 Oxygen Delivery Mechanical Ventilation Fraction of Inspired Oxygen 35 08/22/24 04:00 08/22/24 04:57 08/22/24 06:00 Temperature Pulse Rate 79 85 Respiratory Rate Blood Pressure Pulse Oximetry 97 Oxygen Delivery Mechanical Ventilation Fraction of Inspired Oxygen 35 35 08/22/24 06:00 08/22/24 06:00 08/22/24 06:00 Temperature Pulse Rate 85 85 85 Respiratory Rate 22 H Blood Pressure 99/57 L 99/57 L Pulse Oximetry Oxygen Delivery Fraction of Inspired Oxygen 08/22/24 06:00 08/22/24 06:00 08/22/24 06:00 Temperature Pulse Rate 85 85 78 Respiratory Rate 22 H 22 H Blood Pressure 99/57 L 110/62 Pulse Oximetry 97 Oxygen Delivery Fraction of Inspired Oxygen 08/22/24 07:17 08/22/24 07:17 08/22/24 07:31 Temperature Pulse Rate 84 84 82 Respiratory Rate 22 H 22 H Blood Pressure Pulse Oximetry 97 Oxygen Delivery Mechanical Ventilation Fraction of Inspired Oxygen 35 08/22/24 07:31 08/22/24 08:00 08/22/24 08:00 Temperature 37.1 C Pulse Rate 75 57 L Respiratory Rate 22 H 22 H Blood Pressure 109/62 Pulse Oximetry 95 Oxygen Delivery Fraction of Inspired Oxygen 35 08/22/24 08:10 Temperature Pulse Rate 59 L Respiratory Rate 22 H Blood Pressure Pulse Oximetry Oxygen Delivery Fraction of Inspired Oxygen Intake/Output Intake/Output: Intake & Output 08/19/24 08/20/24 08/21/24 08/22/24 23:59 23:59 23:59 23:59 Intake Total 2655.2 2696.1 1602.8 571.2 Output Total 1100 2685 2381 750 Balance 1555.2 11.1 -778.2 -178.8 Meds/Results Medications: Active Medications Generic Name Dose Route Start Last Admin Trade Name Freq PRN Reason Stop Dose Admin Acetaminophen 650 mg 08/18/24 21:48 08/20/24 21:05 Acetaminophen Elixir 325 Mg/10.15 Ml Udc PO 650 mg Q4H PRN Administration Mild Pain (1-3) or Fever Dextrose 12.5 gm 08/18/24 05:53 Dextrose 50% 25 Gm/50 Ml Syringe IV PUSH PRN PRN Hypoglycemia Protocol Glucagon 1 mg 08/18/24 05:53 Glucagon For Inj 1 Mg Vial IM PRN PRN Hypoglycemia Protocol Glucose 15 gm 08/18/24 05:53 Glucose Oral Gel 15 Gm Of Glucse In 37.5 Gm Tube PO PRN PRN Hypoglycemia Protocol Heparin Sodium (Porcine) 5,500 units 08/18/24 15:05 08/18/24 23:23 Heparin Sodium 5,000 Units/Ml Vial IV PUSH 5,500 units PRN PRN Administration aPTT less than 55 seconds Heparin Sodium (Porcine) 3,000 units 08/18/24 15:05 08/22/24 05:41 Heparin Sodium 5,000 Units/Ml Vial IV PUSH 3,000 units PRN PRN Administration aPTT 55 - 70 seconds Fentanyl Citrate 2,500 mcg in 250 mls @ 0 mls/hr 08/18/24 00:55 08/22/24 07:31 Fentanyl 2,500 Mcg/Ns 250 Ml IV CONT 0 mcg/hr .Q0M TEMI 0 mls/hr Titration Protocol Midazolam HCl 100 mg in 100 mls @ 0 mls/hr 08/18/24 00:55 08/22/24 07:31 Versed 100 Mg/Ns 100 Ml IV CONT 0 mg/hr .Q0M TEMI 0 mls/hr Titration Protocol Dextrose 1,000 mls @ 100 mls/hr 08/18/24 05:53 Dextrose 5% 1,000 Ml IVPB PRN PRN Hypoglycemia Protocol Heparin Sodium/Dextrose 25,000 units in 250 mls @ 19 mls/hr 08/18/24 15:05 08/22/24 05:41 Heparin Sodium/D5w 100 Units/Ml IV CONT 1,900 units/hr .[id number] TEMI 19 mls/hr Titration Protocol 1,900 UNITS/HR Norepinephrine Bitartrate 8 mg in 250 mls @ 9.375 mls/hr 08/19/24 12:30 08/22/24 06:00 Levophed 8 Mg/D5w 250 Ml IV CONT 5 mcg/min .Q24H TEMI 9.38 mls/hr Titration Protocol 5 MCG/MIN Cefepime HCl 1 gm in 50 mls @ 100 mls/hr 08/20/24 21:00 08/21/24 21:42 Maxipime 1 Gm/Ns 50 Ml IVPB Infused QHS TEMI Infusion Albumin Human 50 mls @ 999 mls/hr 08/21/24 06:28 Albutein IVPB 09/20/24 06:27 Q10M PRN HYPOTENSION Vasopressin 100 units/ 100 mls @ 2.4 mls/hr 08/21/24 23:35 08/22/24 06:00 Dextrose IV CONT 0.04 units/min .[id number] TEMI 2.4 mls/hr Titration Protocol 0.04 UNITS/MIN Insulin Aspart 4 - 8 units 08/20/24 21:05 08/22/24 05:07 Insulin Aspart (*Bkc) 100 Units/Ml SUB-Q 5 units Q4HR TEMI Administration Protocol Insulin Glargine 20 units 08/21/24 09:00 08/21/24 09:04 Insulin Glargine (*Bkc) 100 Units/Ml SUB-Q 20 units QAM TEMI Administration Ipratropium Zanoni 0.5 mg 08/20/24 07:40 08/22/24 07:17 Ipratropium Br 0.02% Inh Soln 0.5 Mg/2.5 Ml Vial INHALATION 0.5 mg Q6HRT PRN Administration Wheezing Levalbuterol HCl 1.25 mg 08/20/24 07:40 08/22/24 07:17 Levalbuterol Neb 1.25 Mg/3 Ml INHALATION 1.25 mg Q6HRT PRN Administration Wheezing Metoclopramide HCl 10 mg 08/21/24 07:50 08/22/24 08:16 Metoclopramide Hcl 10 Mg/10 Ml Soln Udc PO 10 mg Q6H TEMI Administration Midazolam HCl 2 mg 08/19/24 02:59 08/19/24 05:16 Midazolam Hcl (*Crx) 2 Mg/2 Ml Vial IV PUSH 2 mg Q1HR PRN Administration Agitation Multi-Ingred Cream/Lotion/Oil/Oint 1 applic 08/18/24 09:00 08/21/24 20:29 Mineral Oil/White Petrolatum Ointment EACH EYE 1 applic Q12HR TEMI Administration Mupirocin 1 applic 08/15/24 21:00 08/21/24 20:29 Mupirocin 2% Oint 22 Gm Tube EACH NARE 1 applic Q12HR TEMI Administration Pantoprazole Sodium 40 mg 08/19/24 09:00 08/22/24 08:16 Pantoprazole Sodium Iv 40 Mg Vial IV PUSH 40 mg QAM TEMI Administration Polyethylene Glycol 17 gm 08/15/24 22:20 08/22/24 08:16 Polyethylene Glycol 3350 17 Gm Powd.Pack PO 17 gm DAILY PRN Administration constipation Sodium Chloride 10 ml 08/19/24 22:00 08/22/24 05:09 Central Line Flush IV PUSH 10 ml Q8HR TEMI Administration Sodium Chloride 20 ml 08/19/24 18:43 Central Line Flush IV PUSH PRN PRN after blood draws Vancomycin HCl 1 each 08/20/24 09:39 Vancomycin For Hemodialysis IVPB PRN PRN Vancomycin Protocol Radiology Results: ITS Impressions Chest CTA 08/15/24 11:11 IMPRESSION: No pulmonary embolus. No thoracic aortic dissection. Right upper lobe infiltrate with patchy bilateral airspace disease, likely inflammatory/congestive rather than infectious. Small bilateral pleural effusions with adjacent atelectasis. Chest/Abdomen/Pelvis CT 08/18/24 12:28 IMPRESSION: 1. Significant interval progression in an lobar pneumonia along with increasing small bilateral pleural effusions. 2. No acute intra-abdominal/pelvic process. 3. Subtle 2.5 cm mass at the upper pole of the right kidney consistent with provided history of renal tumor. 4. Calcification is at the bilateral kidneys which appear linear and likely atherosclerotic although could not exclude nonobstructing nephrolithiasis. No hydronephrosis in either kidney. 5. Unchanged mild likely reactive mediastinal lymphadenopathy. 6. Endotracheal tube, nasogastric tube and suprapubic Butt catheter all in expected positions. Venous Doppler Study 08/18/24 14:42 IMPRESSION: 1. Bilateral [id number] deep venous thrombosis in the left and right posterior tibial veins. Findings were discussed with the ICU nurse Carlos Herrera at 2:45 PM. Renal Ultrasound 08/19/24 14:10 IMPRESSION: No hydronephrosis or renal calculi. Findings suggesting medical renal disease. Findings within the upper pole of the right kidney consistent with patient's history, as detailed above. Abdomen X-Ray 08/21/24 08:25 IMPRESSION: 1. Nonspecific paucity of bowel gas with no dilated gas-filled loops of bowel to suggest obstruction. Chest X-Ray 08/22/24 08:08 IMPRESSION: No significant change from previous examination. Labs Labs: Laboratory Results - last 24 hr 08/21/24 08/21/24 08/21/24 08:59 10:22 11:38 WBC RBC Hgb Hct MCV MCH MCHC RDW Plt Count MPV APTT Puncture Site ABG pH ABG pCO2 ABG pO2 ABG PO2/FiO2 Ratio ABG HCO3 ABG O2 Saturation ABG O2 Content ABG Base Excess A-a Gradient Oxyhemoglobin Carboxyhemoglobin Methemoglobin Reduced Hemoglobin Total Hemoglobin O2 Delivery Device O2 Liters/Min Minute Volume Vent Rate Vent Mode FiO2 Tidal Volume PEEP Peak Inspir Pressure Pressure Support Sodium Potassium Chloride Carbon Dioxide Anion Gap BUN Creatinine Estim Creat Clear Calc Estimated GFR Glucose POC Capillary Glucose 367 H 354 H 374 H Calcium Phosphorus Magnesium Total Bilirubin AST ALT Alkaline Phosphatase Total Protein Albumin Random Vancomycin 08/21/24 08/21/24 08/21/24 17:29 20:21 23:49 WBC RBC Hgb Hct MCV MCH MCHC RDW Plt Count MPV APTT Puncture Site ABG pH ABG pCO2 ABG pO2 ABG PO2/FiO2 Ratio ABG HCO3 ABG O2 Saturation ABG O2 Content ABG Base Excess A-a Gradient Oxyhemoglobin Carboxyhemoglobin Methemoglobin Reduced Hemoglobin Total Hemoglobin O2 Delivery Device O2 Liters/Min Minute Volume Vent Rate Vent Mode FiO2 Tidal Volume PEEP Peak Inspir Pressure Pressure Support Sodium Potassium Chloride Carbon Dioxide Anion Gap BUN Creatinine Estim Creat Clear Calc Estimated GFR Glucose POC Capillary Glucose 213 H 226 H 280 H Calcium Phosphorus Magnesium Total Bilirubin AST ALT Alkaline Phosphatase Total Protein Albumin Random Vancomycin 08/22/24 08/22/24 08/22/24 04:16 04:59 05:10 WBC 11.7 H RBC 2.88 L Hgb 7.4 L Hct 24.2 L MCV 84.0 MCH 25.7 L MCHC 30.6 L RDW 17.6 H Plt Count 185 MPV 11.5 H APTT 66.4 H Puncture Site Left radial ABG pH 7.448 ABG pCO2 37.8 ABG pO2 78.9 L ABG PO2/FiO2 Ratio 2.25 ABG HCO3 25.6 ABG O2 Saturation 96.2 ABG O2 Content 13.8 L ABG Base Excess 1.6 A-a Gradient 126.7 Oxyhemoglobin 95.0 Carboxyhemoglobin 0.1 Methemoglobin 0.3 Reduced Hemoglobin 4.6 Total Hemoglobin 10.3 L O2 Delivery Device Ventilator O2 Liters/Min Not Reportable Minute Volume Not Reportable Vent Rate 22 Vent Mode Cmv FiO2 35 Tidal Volume 380 PEEP 8 Peak Inspir Pressure Not Reportable Pressure Support Not Reportable Sodium 136 L Potassium 3.5 Chloride 98 Carbon Dioxide 25 Anion Gap 13 H BUN 42 H Creatinine 2.46 H Estim Creat Clear Calc 18 Estimated GFR 19 L Glucose 304 H POC Capillary Glucose 286 H Calcium 8.4 Phosphorus 3.6 Magnesium 2.2 Total Bilirubin 0.5 AST 388 H ALT 945 H Alkaline Phosphatase 124 Total Protein 6.0 L Albumin 3.2 L Random Vancomycin 19.7 Quality VTE Prophylaxis VTE prophylaxis: mechanical ordered and pharmacologic ordered
[2024-08-22] MEDS: INSULIN GLARGINE (*BKC) 100 UNITS/ML 20 UNITS SUB-Q (08:36)
[2024-08-22] MEDS: MUPIROCIN 2% OINT 22 GM TUBE 1 APPLIC EACH NARE ×2 (08:37→21:16)
[2024-08-22] MEDS: MINERAL OIL/WHITE PETROLATUM OINTMENT 1 APPLIC EACH EYE ×2 (08:37→21:18)
[2024-08-22 09:00] LABS: Glucose Point of Care 293 mg/dl (65-105)
[2024-08-22 11:30] LABS: Glucose Point of Care 278 mg/dl (65-105)
[2024-08-22 11:46] LABS: Partial Thromboplastin Time 67.4 Seconds (22.3-36.8)
--- NOTE | 2024-08-22 11:58 | P.PNNP_ITS ---
Progress Note: A&P Assessment and Plan (1) Acute kidney injury: Code(s): N17.9 - Acute kidney failure, unspecified Status: Acute Assessment and Plan: * multifactorial etiology: * relative hypotension/hemodynamic instability * infection/early sepsis * IV diuresis/diuretics * contrast exposure (CTA chest on 08/15) * hypoxia * decline in urine output at this time * evaluation to date noted: * renal u/s without obstruction (but medical renal disease) * CPK mildly elevated (but not enough to affect kidney function) * urine electrolytes prerenal * moderate proteinuria * urine eosinophils negative * HD was done yesterday. Not much fluid was able to come off because of her low blood pressure. * The patient's pressors needed increasing overnight but now have come down to vasopressin 0.04 and norepinephrine 7 * holding off on dialysis today * reassess in am for HD tomorrow. * will see however chest x-ray looks tomorrow (2) Chronic kidney disease, stage 3: Code(s): N18.30 - Chronic kidney disease, stage 3 unspecified Status: Chronic Assessment and Plan: * baseline creatinine runs ~ 1.1 - 1.6mg/dl from early 2022 (from review of [facility] records) * this causes her to fluctuate between CKD stage 3A and stage 3B * presumably secondary to diabetes, hypertension, recurrent UTIs, and age- related change (3) Septic shock: Code(s): A41.9 - Sepsis, unspecified organism; R65.21 - Severe sepsis with septic shock Status: Acute Assessment and Plan: * presumably due to pneumonia * on vasopressor therapy to maintain MAP * on 0.04 of vasopressin and 4 of nor epi * off stress dose steroids * will watch the blood pressure as we remove fluid (4) Acute respiratory failure with hypoxia: Code(s): J96.01 - Acute respiratory failure with hypoxia Status: Acute Assessment and Plan: * due to pneumonia and pulmonary edema/CHF * on full ventilator support * further imaging of chest noted * continue current therapy (bronchodilators, antibiotics...etc) * 30% FiO2 and minute volume is around 8. (5) Pneumonia: Code(s): J18.9 - Pneumonia, unspecified organism Status: Acute Assessment and Plan: * suggestive by admission * Blood culturesx4 negative to date. Sputum culture done today is pending, gmstain doesn't see orgs. * on antibiotics (6) Congestive heart failure: Code(s): I50.9 - Heart failure, unspecified Status: Acute Assessment and Plan: * imaging suggestive of pulmonary edema * Echo results (from 08/16) noted: * normal biventricular size and systolic function * no significant valvular abnormalities * was receiveing IV diuretics prior to transfer to ICU * this is on hold due to #1 and hypotension * fluid removal with dialysis as tolerated * Cardiology following (7) Non-ST elevation myocardial infarction (NSTEMI): Code(s): I21.4 - Non-ST elevation (NSTEMI) myocardial infarction Status: Acute Assessment and Plan: * elevated troponins noted * Cardiolgy folloiwing * known history of coronary disease status post stenting * suspect demand ischemia in setting of her current respiratory failure/pneumonia * s/p heparin drip x 48 hours * continue medical management (8) DVT (deep venous thrombosis): Code(s): I82.409 - Acute embolism and thrombosis of unspecified deep veins of unspecified lower extremity Status: Acute Assessment and Plan: * as noted by venous dopplers: * bilateral [id number] deep venous thrombosis in the left and right posterior tibial veins * on heparin infusion (9) Right renal mass: Code(s): N28.89 - Other specified disorders of kidney and ureter Status: Acute Assessment and Plan: * suspicious for renal cell carcinoma * following with [facility] Urology * removal would require total right nepherectomy which would be high risk given patient's age * referred to radiation oncology for possible radiation therapy (10) Type 2 diabetes mellitus: Code(s): E11.9 - Type 2 diabetes mellitus without complications Status: Chronic Assessment and Plan: * follow accu-cheks * glycemic control per gyroscopic instrument tester/hospitalist Subjective Date/time seen: 08/22/24 11:58 Interval history: patient is sedated and on the ventilator. She looks comfortable Exam Narrative: General: elderly female intubated/sedated and on mechanical ventilation Heart: normal S1 and S2; no rub Lungs: coarse upper airway breath sounds throughout Abdomen: soft, nontender, nondistended, positive bowel sounds Extremities: 1+ bilateral edema Skin: No rash Objective Data Vital Signs Vital Signs: Vital Signs - 24 hr 08/21/24 12:00 08/21/24 12:00 08/21/24 12:00 Temperature 99.1 F Pulse Rate 59 L 59 L 59 L Respiratory Rate 22 H 22 H Blood Pressure 104/64 104/64 Pulse Oximetry 94 Oxygen Delivery Fraction of Inspired Oxygen 08/21/24 12:00 08/21/24 12:00 08/21/24 12:00 Temperature Pulse Rate 59 L 59 L Respiratory Rate 22 H Blood Pressure 104/64 Pulse Oximetry Oxygen Delivery Fraction of Inspired Oxygen 30 08/21/24 12:00 08/21/24 12:00 08/21/24 13:58 Temperature Pulse Rate 59 L 58 L Respiratory Rate Blood Pressure Pulse Oximetry 94 95 Oxygen Delivery Mechanical Ventilation Mechanical Ventilation Fraction of Inspired Oxygen 30 30 08/21/24 14:00 08/21/24 14:00 08/21/24 14:00 Temperature Pulse Rate 56 L 57 L 57 L Respiratory Rate 22 H 22 H Blood Pressure 102/61 Pulse Oximetry 95 Oxygen Delivery Fraction of Inspired Oxygen 08/21/24 14:00 08/21/24 14:00 08/21/24 14:00 Temperature Pulse Rate 57 L 57 L 57 L Respiratory Rate 22 H Blood Pressure 102/61 102/61 Pulse Oximetry Oxygen Delivery Fraction of Inspired Oxygen 08/21/24 15:40 08/21/24 15:40 08/21/24 15:53 Temperature 99.1 F Pulse Rate 59 L 58 L Respiratory Rate 22 H Blood Pressure 103/55 L 105/55 L Pulse Oximetry 95 Oxygen Delivery Fraction of Inspired Oxygen 30 08/21/24 16:00 08/21/24 16:00 08/21/24 16:00 Temperature Pulse Rate 56 L 55 L 54 L Respiratory Rate Blood Pressure 89/53 L 89/53 L Pulse Oximetry Oxygen Delivery Fraction of Inspired Oxygen 08/21/24 16:00 08/21/24 16:00 08/21/24 16:00 Temperature 98.8 F Pulse Rate 57 L 56 L Respiratory Rate 22 H 22 H Blood Pressure 89/53 L Pulse Oximetry 95 Oxygen Delivery Fraction of Inspired Oxygen 30 08/21/24 16:00 08/21/24 16:00 08/21/24 16:00 Temperature Pulse Rate 56 L 56 L Respiratory Rate 22 H Blood Pressure 89/53 L Pulse Oximetry 97 Oxygen Delivery Mechanical Ventilation Fraction of Inspired Oxygen 30 08/21/24 16:15 08/21/24 16:30 08/21/24 16:30 Temperature Pulse Rate 53 L 55 L 53 L Respiratory Rate Blood Pressure 83/50 L 87/50 L 87/50 L Pulse Oximetry Oxygen Delivery Fraction of Inspired Oxygen 08/21/24 16:45 08/21/24 16:48 08/21/24 17:00 Temperature Pulse Rate 58 L 53 L 53 L Respiratory Rate Blood Pressure 107/65 116/67 Pulse Oximetry 97 Oxygen Delivery Mechanical Ventilation Fraction of Inspired Oxygen 30 08/21/24 17:15 08/21/24 17:30 08/21/24 17:34 Temperature Pulse Rate 52 L 52 L 51 L Respiratory Rate Blood Pressure 119/60 121/60 121/60 Pulse Oximetry Oxygen Delivery Fraction of Inspired Oxygen 08/21/24 17:34 08/21/24 17:45 08/21/24 18:00 Temperature Pulse Rate 51 L 52 L 52 L Respiratory Rate Blood Pressure 121/60 109/58 L Pulse Oximetry Oxygen Delivery Fraction of Inspired Oxygen 08/21/24 18:00 08/21/24 18:00 08/21/24 18:00 Temperature 98.8 F Pulse Rate 53 L 53 L 53 L Respiratory Rate 22 H 22 H 22 H Blood Pressure 108/56 L Pulse Oximetry 95 Oxygen Delivery Fraction of Inspired Oxygen 08/21/24 18:00 08/21/24 18:00 08/21/24 18:00 Temperature Pulse Rate 53 L 53 L 52 L Respiratory Rate Blood Pressure 108/56 L 108/56 L 108/56 L Pulse Oximetry Oxygen Delivery Fraction of Inspired Oxygen 08/21/24 18:15 08/21/24 18:30 08/21/24 18:45 Temperature Pulse Rate 52 L 58 L 53 L Respiratory Rate Blood Pressure 110/55 L 99/58 L 91/51 L Pulse Oximetry Oxygen Delivery Fraction of Inspired Oxygen 08/21/24 19:00 08/21/24 19:15 08/21/24 19:25 Temperature Pulse Rate 53 L 52 L 52 L Respiratory Rate Blood Pressure 103/53 L 103/53 L 107/55 L Pulse Oximetry Oxygen Delivery Fraction of Inspired Oxygen 08/21/24 19:35 08/21/24 20:00 08/21/24 20:00 Temperature 98.3 F Pulse Rate 56 L 125 H 125 H Respiratory Rate 22 H 22 H 22 H Blood Pressure 115/56 L Pulse Oximetry 92 Oxygen Delivery Fraction of Inspired Oxygen 08/21/24 20:00 08/21/24 20:00 08/21/24 20:00 Temperature 98.7 F Pulse Rate 125 H 124 H Respiratory Rate 22 H Blood Pressure 116/74 116/74 Pulse Oximetry 92 91 Oxygen Delivery Mechanical Ventilation Fraction of Inspired Oxygen 30 08/21/24 20:00 08/21/24 20:00 08/21/24 20:23 Temperature Pulse Rate 127 H 127 H Respiratory Rate Blood Pressure 120/65 Pulse Oximetry Oxygen Delivery Fraction of Inspired Oxygen 30 08/21/24 20:32 08/21/24 20:50 08/21/24 21:23 Temperature Pulse Rate 124 H 122 H 111 H Respiratory Rate Blood Pressure 118/67 107/84 Pulse Oximetry 91 Oxygen Delivery Mechanical Ventilation Fraction of Inspired Oxygen 40 08/21/24 21:42 08/21/24 21:48 08/21/24 22:00 Temperature Pulse Rate 96 121 H 106 H Respiratory Rate Blood Pressure 102/56 L Pulse Oximetry Oxygen Delivery Fraction of Inspired Oxygen 08/21/24 22:00 08/21/24 22:18 08/21/24 22:18 Temperature 98.5 F Pulse Rate 98 95 95 Respiratory Rate 22 H 22 H 22 H Blood Pressure 105/72 Pulse Oximetry 96 Oxygen Delivery Fraction of Inspired Oxygen 08/21/24 22:19 08/21/24 22:19 08/21/24 22:59 Temperature Pulse Rate 94 106 H 93 Respiratory Rate Blood Pressure 96/65 L 96/65 L Pulse Oximetry 97 Oxygen Delivery Mechanical Ventilation Fraction of Inspired Oxygen 35 08/21/24 23:38 08/22/24 00:00 08/22/24 00:00 Temperature 98.7 F Pulse Rate 94 102 H Respiratory Rate 22 H Blood Pressure 115/91 H 96/63 L Pulse Oximetry 98 97 Oxygen Delivery Mechanical Ventilation Fraction of Inspired Oxygen 30 08/22/24 00:00 08/22/24 00:00 08/22/24 00:00 Temperature Pulse Rate 103 H 91 Respiratory Rate 22 H Blood Pressure Pulse Oximetry Oxygen Delivery Fraction of Inspired Oxygen 40 08/22/24 00:00 08/22/24 00:00 08/22/24 00:00 Temperature Pulse Rate 91 91 91 Respiratory Rate 22 H Blood Pressure 96/63 L 96/63 L Pulse Oximetry Oxygen Delivery Fraction of Inspired Oxygen 08/22/24 00:19 08/22/24 01:51 08/22/24 02:00 Temperature Pulse Rate 89 90 87 Respiratory Rate 22 H Blood Pressure 102/77 100/56 L Pulse Oximetry 96 97 Oxygen Delivery Mechanical Ventilation Fraction of Inspired Oxygen 35 08/22/24 02:00 08/22/24 02:00 08/22/24 02:00 Temperature Pulse Rate 90 90 90 Respiratory Rate 22 H 22 H Blood Pressure 100/56 L Pulse Oximetry Oxygen Delivery Fraction of Inspired Oxygen 08/22/24 02:00 08/22/24 02:00 08/22/24 02:00 Temperature Pulse Rate 90 90 88 Respiratory Rate Blood Pressure 100/56 L 100/56 L Pulse Oximetry Oxygen Delivery Fraction of Inspired Oxygen 08/22/24 03:28 08/22/24 03:28 08/22/24 03:29 Temperature Pulse Rate 92 92 92 Respiratory Rate 22 H 22 H Blood Pressure 97/61 L Pulse Oximetry Oxygen Delivery Fraction of Inspired Oxygen 08/22/24 04:00 08/22/24 04:00 08/22/24 04:00 Temperature 98.8 F Pulse Rate 99 87 87 Respiratory Rate 22 H 22 H Blood Pressure 95/61 L 100/59 L Pulse Oximetry 97 Oxygen Delivery Fraction of Inspired Oxygen 08/22/24 04:00 08/22/24 04:00 08/22/24 04:00 Temperature Pulse Rate 87 87 87 Respiratory Rate 22 H Blood Pressure 100/59 L 100/59 L Pulse Oximetry Oxygen Delivery Fraction of Inspired Oxygen 08/22/24 04:00 08/22/24 04:00 08/22/24 04:00 Temperature Pulse Rate 85 Respiratory Rate Blood Pressure Pulse Oximetry 97 Oxygen Delivery Mechanical Ventilation Fraction of Inspired Oxygen 35 35 08/22/24 04:57 08/22/24 06:00 08/22/24 06:00 Temperature Pulse Rate 79 85 85 Respiratory Rate 22 H Blood Pressure Pulse Oximetry 97 Oxygen Delivery Mechanical Ventilation Fraction of Inspired Oxygen 35 08/22/24 06:00 08/22/24 06:00 08/22/24 06:00 Temperature Pulse Rate 85 85 85 Respiratory Rate 22 H Blood Pressure 99/57 L 99/57 L Pulse Oximetry Oxygen Delivery Fraction of Inspired Oxygen 08/22/24 06:00 08/22/24 06:00 08/22/24 07:17 Temperature Pulse Rate 85 78 84 Respiratory Rate 22 H Blood Pressure 99/57 L 110/62 Pulse Oximetry 97 97 Oxygen Delivery Mechanical Ventilation Fraction of Inspired Oxygen 35 08/22/24 07:17 08/22/24 07:31 08/22/24 07:31 Temperature Pulse Rate 84 82 75 Respiratory Rate 22 H 22 H 22 H Blood Pressure Pulse Oximetry Oxygen Delivery Fraction of Inspired Oxygen 08/22/24 08:00 08/22/24 08:00 08/22/24 08:00 Temperature 98.7 F Pulse Rate 57 L 58 L Respiratory Rate 22 H Blood Pressure 109/62 109/62 Pulse Oximetry 95 Oxygen Delivery Fraction of Inspired Oxygen 35 08/22/24 08:00 08/22/24 08:00 08/22/24 08:00 Temperature Pulse Rate 58 L 58 L 58 L Respiratory Rate 22 H Blood Pressure 109/62 109/62 Pulse Oximetry Oxygen Delivery Fraction of Inspired Oxygen 08/22/24 08:00 08/22/24 08:00 08/22/24 08:00 Temperature Pulse Rate 58 L 58 L Respiratory Rate 22 H Blood Pressure Pulse Oximetry 95 Oxygen Delivery Mechanical Ventilation Fraction of Inspired Oxygen 35 08/22/24 08:10 08/22/24 08:25 08/22/24 08:57 Temperature Pulse Rate 59 L 58 L 65 Respiratory Rate 22 H Blood Pressure 103/45 L 88/48 L Pulse Oximetry Oxygen Delivery Fraction of Inspired Oxygen 08/22/24 10:00 08/22/24 10:00 08/22/24 10:00 Temperature 99.5 F Pulse Rate 60 61 61 Respiratory Rate 22 H 22 H Blood Pressure 102/51 L Pulse Oximetry 96 Oxygen Delivery Fraction of Inspired Oxygen 08/22/24 10:00 08/22/24 10:00 08/22/24 10:00 Temperature Pulse Rate 61 61 61 Respiratory Rate 22 H Blood Pressure 102/51 L 102/51 L Pulse Oximetry Oxygen Delivery Fraction of Inspired Oxygen 08/22/24 10:29 Temperature Pulse Rate 60 Respiratory Rate Blood Pressure Pulse Oximetry 96 Oxygen Delivery Mechanical Ventilation Fraction of Inspired Oxygen 30 Intake/Output Intake/Output: Intake & Output 08/19/24 08/20/24 08/21/24 08/22/24 23:59 23:59 23:59 23:59 Intake Total 2655.2 2696.1 1602.8 662.5 Output Total 1100 2685 2381 750 Balance 1555.2 11.1 -778.2 -87.5 Meds/Results Medications: Active Medications Generic Name Dose Route Start Last Admin Trade Name Freq PRN Reason Stop Dose Admin Acetaminophen 650 mg 08/18/24 21:48 08/20/24 21:05 Acetaminophen Elixir 325 Mg/10.15 Ml Udc PO 650 mg Q4H PRN Administration Mild Pain (1-3) or Fever Dextrose 12.5 gm 08/18/24 05:53 Dextrose 50% 25 Gm/50 Ml Syringe IV PUSH PRN PRN Hypoglycemia Protocol Glucagon 1 mg 08/18/24 05:53 Glucagon For Inj 1 Mg Vial IM PRN PRN Hypoglycemia Protocol Glucose 15 gm 08/18/24 05:53 Glucose Oral Gel 15 Gm Of Glucse In 37.5 Gm Tube PO PRN PRN Hypoglycemia Protocol Heparin Sodium (Porcine) 5,500 units 08/18/24 15:08/18/24 23:23 Heparin Sodium 5,000 Units/Ml Vial IV PUSH 5,500 units PRN PRN Administration aPTT less than 55 seconds Heparin Sodium (Porcine) 3,000 units 08/18/24 15:05 08/22/24 05:41 Heparin Sodium 5,000 Units/Ml Vial IV PUSH 3,000 units PRN PRN Administration aPTT 55 - 70 seconds Fentanyl Citrate 2,500 mcg in 250 mls @ 0 mls/hr 08/18/24 00:55 08/22/24 10:00 Fentanyl 2,500 Mcg/Ns 250 Ml IV CONT 0 mcg/hr .Q0M TEMI 0 mls/hr Titration Protocol Midazolam HCl 100 mg in 100 mls @ 0 mls/hr 08/18/24 00:55 08/22/24 10:00 Versed 100 Mg/Ns 100 Ml IV CONT 0 mg/hr .Q0M TEMI 0 mls/hr Titration Protocol Dextrose 1,000 mls @ 100 mls/hr 08/18/24 05:53 Dextrose 5% 1,000 Ml IVPB PRN PRN Hypoglycemia Protocol Heparin Sodium/Dextrose 25,000 units in 250 mls @ 19 mls/hr 08/18/24 15:05 08/22/24 05:41 Heparin Sodium/D5w 100 Units/Ml IV CONT 1,900 units/hr .[id number] TEMI 19 mls/hr Titration Protocol 1,900 UNITS/HR Norepinephrine Bitartrate 8 mg in 250 mls @ 13.125 mls/hr 08/19/24 12:30 08/22/24 10:00 Levophed 8 Mg/D5w 250 Ml IV CONT 7 mcg/min .Q19H3M TEMI 13.13 mls/hr Titration Protocol 7 MCG/MIN Cefepime HCl 1 gm in 50 mls @ 100 mls/hr 08/20/24 21:00 08/21/24 21:42 Maxipime 1 Gm/Ns 50 Ml IVPB Infused QHS TEMI Infusion Albumin Human 50 mls @ 999 mls/hr 08/21/24 06:28 Albutein IVPB 09/20/24 06:27 Q10M PRN HYPOTENSION Vasopressin 100 units/ 100 mls @ 2.4 mls/hr 08/21/24 23:35 08/22/24 10:00 Dextrose IV CONT 0.04 units/min .[id number] TEMI 2.4 mls/hr Titration Protocol 0.04 UNITS/MIN Insulin Aspart 4 - 8 units 08/20/24 21:05 08/22/24 08:36 Insulin Aspart (*Bkc) 100 Units/Ml SUB-Q 5 units Q4HR TEMI Administration Protocol Insulin Glargine 20 units 08/21/24 09:00 08/22/24 08:36 Insulin Glargine (*Bkc) 100 Units/Ml SUB-Q 20 units QAM TEMI Administration Ipratropium [place] 0.5 mg 08/20/24 07:40 08/22/24 07:17 Ipratropium Br 0.02% Inh Soln 0.5 Mg/2.5 Ml Vial INHALATION 0.5 mg Q6HRT PRN Administration Wheezing Levalbuterol HCl 1.25 mg 08/20/24 07:40 08/22/24 07:17 Levalbuterol Neb 1.25 Mg/3 Ml INHALATION 1.25 mg Q6HRT PRN Administration Wheezing Metoclopramide HCl 10 mg 08/21/24 07:50 08/22/24 08:16 Metoclopramide Hcl 10 Mg/10 Ml Soln Udc PO 10 mg Q6H TEMI Administration Midazolam HCl 2 mg 08/19/24 02:59 08/19/24 05:16 Midazolam Hcl (*Crx) 2 Mg/2 Ml Vial IV PUSH 2 mg Q1HR PRN Administration Agitation Multi-Ingred Cream/Lotion/Oil/Oint 1 applic 04/02/25 09:00 08/22/24 08:37 Mineral Oil/White Petrolatum Ointment EACH EYE 1 applic Q12HR TEMI Administration Mupirocin 1 applic 08/15/24 21:00 08/22/24 08:37 Mupirocin 2% Oint 22 Gm Tube EACH NARE 1 applic Q12HR TEMI Administration Pantoprazole Sodium 40 mg 08/19/24 09:00 08/22/24 08:16 Pantoprazole Sodium Iv 40 Mg Vial IV PUSH 40 mg QAM TEMI Administration Polyethylene Glycol 17 gm 08/15/24 22:20 08/22/24 08:16 Polyethylene Glycol 3350 17 Gm Powd.Pack PO 17 gm DAILY PRN Administration constipation Sodium Chloride 10 ml 08/19/24 22:00 08/22/24 05:09 Central Line Flush IV PUSH 10 ml Q8HR TEMI Administration Sodium Chloride 20 ml 08/19/24 18:43 Central Line Flush IV PUSH PRN PRN after blood draws Vancomycin HCl 1 each 08/20/24 09:39 Vancomycin For Hemodialysis IVPB PRN PRN Vancomycin Protocol Radiology Results: ITS Impressions Chest CTA 08/15/24 11:11 IMPRESSION: No pulmonary embolus. No thoracic aortic dissection. Right upper lobe infiltrate with patchy bilateral airspace disease, likely inflammatory/congestive rather than infectious. Small bilateral pleural effusions with adjacent atelectasis. Chest/Abdomen/Pelvis CT 08/18/24 12:28 IMPRESSION: 1. Significant interval progression in an lobar pneumonia along with increasing small bilateral pleural effusions. 2. No acute intra-abdominal/pelvic process. 3. Subtle 2.5 cm mass at the upper pole of the right kidney consistent with provided history of renal tumor. 4. Calcification is at the bilateral kidneys which appear linear and likely atherosclerotic although could not exclude nonobstructing nephrolithiasis. No hydronephrosis in either kidney. 5. Unchanged mild likely reactive mediastinal lymphadenopathy. 6. Endotracheal tube, nasogastric tube and suprapubic Butt catheter all in expected positions. Venous Doppler Study 08/18/24 14:42 IMPRESSION: 1. Bilateral [id number] deep venous thrombosis in the left and right posterior tibial veins. Findings were discussed with the ICU nurse Carlos Herrera at 2:45 PM. Renal Ultrasound 08/19/24 14:10 IMPRESSION: No hydronephrosis or renal calculi. Findings suggesting medical renal disease. Findings within the upper pole of the right kidney consistent with patient's history, as detailed above. Abdomen X-Ray 08/21/24 08:25 IMPRESSION: 1. Nonspecific paucity of bowel gas with no dilated gas-filled loops of bowel to suggest obstruction. Chest X-Ray 08/22/24 08:08 IMPRESSION: No significant change from previous examination. Labs Labs: Laboratory Results - last 24 hr 08/21/24 08/21/24 08/21/24 11:38 17:29 20:21 WBC RBC Hgb Hct MCV MCH MCHC RDW Plt Count MPV APTT Puncture Site ABG pH ABG pCO2 ABG pO2 ABG PO2/FiO2 Ratio ABG HCO3 ABG O2 Saturation ABG O2 Content ABG Base Excess A-a Gradient Oxyhemoglobin Carboxyhemoglobin Methemoglobin Reduced Hemoglobin Total Hemoglobin O2 Delivery Device O2 Liters/Min Minute Volume Vent Rate Vent Mode FiO2 Tidal Volume PEEP Peak Inspir Pressure Pressure Support Sodium Potassium Chloride Carbon Dioxide Anion Gap BUN Creatinine Estim Creat Clear Calc Estimated GFR Glucose POC Capillary Glucose 374 H 213 H 226 H Calcium Phosphorus Magnesium Total Bilirubin AST ALT Alkaline Phosphatase Total Protein Albumin Random Vancomycin 08/21/24 08/22/24 08/22/24 23:49 04:16 04:59 WBC RBC Hgb Hct MCV MCH MCHC RDW Plt Count MPV APTT Puncture Site Left radial ABG pH 7.448 ABG pCO2 37.8 ABG pO2 78.9 L ABG PO2/FiO2 Ratio 2.25 ABG HCO3 25.6 ABG O2 Saturation 96.2 ABG O2 Content 13.8 L ABG Base Excess 1.6 A-a Gradient 126.7 Oxyhemoglobin 95.0 Carboxyhemoglobin 0.1 Methemoglobin 0.3 Reduced Hemoglobin 4.6 Total Hemoglobin 10.3 L O2 Delivery Device Ventilator O2 Liters/Min Not Reportable Minute Volume Not Reportable Vent Rate 22 Vent Mode Cmv FiO2 35 Tidal Volume 380 PEEP 8 Peak Inspir Pressure Not Reportable Pressure Support Not Reportable Sodium Potassium Chloride Carbon Dioxide Anion Gap BUN Creatinine Estim Creat Clear Calc Estimated GFR Glucose POC Capillary Glucose 280 H 286 H Calcium Phosphorus Magnesium Total Bilirubin AST ALT Alkaline Phosphatase Total Protein Albumin Random Vancomycin 08/22/24 08/22/24 08/22/24 05:10 08:20 11:18 WBC 11.7 H RBC 2.88 L Hgb 7.4 L Hct 24.2 L MCV 84.0 MCH 25.7 L MCHC 30.6 L RDW 17.6 H Plt Count 185 MPV 11.5 H APTT 66.4 H Puncture Site ABG pH ABG pCO2 ABG pO2 ABG PO2/FiO2 Ratio ABG HCO3 ABG O2 Saturation ABG O2 Content ABG Base Excess A-a Gradient Oxyhemoglobin Carboxyhemoglobin Methemoglobin Reduced Hemoglobin Total Hemoglobin O2 Delivery Device O2 Liters/Min Minute Volume Vent Rate Vent Mode FiO2 Tidal Volume PEEP Peak Inspir Pressure Pressure Support Sodium 136 L Potassium 3.5 Chloride 98 Carbon Dioxide 25 Anion Gap 13 H BUN 42 H Creatinine 2.46 H Estim Creat Clear Calc 18 Estimated GFR 19 L Glucose 304 H POC Capillary Glucose 293 H 278 H Calcium 8.4 Phosphorus 3.6 Magnesium 2.2 Total Bilirubin 0.5 AST 388 H ALT 945 H Alkaline Phosphatase 124 Total Protein 6.0 L Albumin 3.2 L Random Vancomycin 19.7 08/22/24 11:28 WBC RBC Hgb Hct MCV MCH MCHC RDW Plt Count MPV APTT 67.4 H Puncture Site ABG pH ABG pCO2 ABG pO2 ABG PO2/FiO2 Ratio ABG HCO3 ABG O2 Saturation ABG O2 Content ABG Base Excess A-a Gradient Oxyhemoglobin Carboxyhemoglobin Methemoglobin Reduced Hemoglobin Total Hemoglobin O2 Delivery Device O2 Liters/Min Minute Volume Vent Rate Vent Mode FiO2 Tidal Volume PEEP Peak Inspir Pressure Pressure Support Sodium Potassium Chloride Carbon Dioxide Anion Gap BUN Creatinine Estim Creat Clear Calc Estimated GFR Glucose POC Capillary Glucose Calcium Phosphorus Magnesium Total Bilirubin AST ALT Alkaline Phosphatase Total Protein Albumin Random Vancomycin
[2024-08-22] MEDS: ACETAMINOPHEN ELIXIR 325 MG/10.15 ML UDC 650 MG PO (12:56)
[2024-08-22] MEDS: HEPARIN SOD/D5W 100 UNITS/ML 25,000 UNITS/250 ML BAG 20 UNITS IV CONT (13:24)
--- NOTE | 2024-08-22 14:15 | P.PNIM_ITS ---
Progress Note: A&P Assessment and Plan (1) Acute respiratory failure with hypoxia: Code(s): J96.01 - Acute respiratory failure with hypoxia Status: Acute Assessment and Plan: Acute Respiratory failure secondary to combination of pneumonia and congestive heart failure Patient now intubated and on mechanical ventilation. Repeat CT chest showed worsening pneumonia Continue vancomycin cefepime azithromycin sedation per Special Ed Assistant (2) Congestive heart failure: Code(s): I50.9 - Heart failure, unspecified Status: Acute Assessment and Plan: See above (3) Non-ST elevation myocardial infarction (NSTEMI): Code(s): I21.4 - Non-ST elevation (NSTEMI) myocardial infarction Status: Acute Assessment and Plan: History of coronary disease status post PCI in the past now presented with elevated troponin. Cardiology following Currently on aspirin Other medications on hold due to low blood pressure Statin Hold was slightly elevated LFTs. No plan for cardiac catheterization at this time. (4) Coronary artery disease: Code(s): I25.10 - Atherosclerotic heart disease of [place] coronary artery without angina pectoris Status: Acute Assessment and Plan: See above (5) Type 2 diabetes mellitus: Code(s): E11.9 - Type 2 diabetes mellitus without complications Status: Chronic Assessment and Plan: Sliding scale insulin Continue Lantus Off steroid (6) Renal failure: Code(s): N19 - Unspecified kidney failure Status: Acute Assessment and Plan: Acute Respiratory failure secondary to combination of pneumonia and congestive heart failure Patient now intubated and on mechanical ventilation. Repeat CT chest showed worsening pneumonia Continue vancomycin cefepime azithromycin sedation per Special Ed Assistant (7) Pneumonia: Code(s): J18.9 - Pneumonia, unspecified organism Status: Acute Assessment and Plan: See above (8) Kidney mass: Code(s): N28.89 - Other specified disorders of kidney and ureter Status: Acute Assessment and Plan: Patient's son reports history of kidney mass which is being monitor as it was too big to be removed without total nephrectomy. He states that patient was supposed to get radiation therapy in a month or so before she fractured her ankle. CT scan shows 2.5 cm renal mass on the right side and no hydronephrosis. No intervention at this time (9) DVT (deep venous thrombosis): Code(s): I82.409 - Acute embolism and thrombosis of unspecified deep veins of unspecified lower extremity Status: Acute Assessment and Plan: Bilateral venous Dopplers obtained due to swelling in the legs. Ultrasound showed Bilateral [id number] deep venous thrombosis in the left and right posterior tibial veins. Findings were discussed with the ICU nurse Carlos Herrera at 2:45 PM. Patient started on heparin infusion (10) Septic shock: Code(s): A41.9 - Sepsis, unspecified organism; R65.21 - Severe sepsis with septic shock Status: Acute Assessment and Plan: Continue Levophed and vasopressin (11) Ileus: Code(s): K56.7 - Ileus, unspecified Status: Acute Assessment and Plan: Patient has significant output from her OG tube. She has not been tolerating tube feeds for last 2 days. She is on Reglan Bowel sounds are decreased. KUB does not show anything significant abnormal I will request IR for a post pyloric tube insertion and also obtain a CT abdomen pelvis tomorrow (12) Atrial fibrillation with RVR: Code(s): I48.91 - Unspecified atrial fibrillation Status: Acute Assessment and Plan: Patient went into AFib with RVR after hemodialysis session yesterday. She was started on amiodarone infusion. She has converted to sinus bradycardia this morning and I will discontinue it infusion at this time She is already on heparin infusion Plan DVT prophylaxis -Lovenox Stress ulcer prophylaxis - PPI Nutrition -tube feeds on hold as patient is not tolerating Code Status - Full Code Subjective Date/time seen: 08/22/24 14:15 Interval history: Still intubated, vented and sedated Review of Systems Review of Systems: 12 systems were reviewed and are negativ e except for as per HPI. ROS unobtainable: Yes unobtainable due to endotracheal tube, unobtainable due to medical condition and unobtainable due to mental status Exam Narrative: General: Pt is sedated, intubated and on mechanical ventilation Lungs/Chest: Trachea central Coarse BS B/L, No crackles or wheezing. Cardiac: RRR. Normal S1 S2. No murmurs Circulation: Feet are cold Abdomen: Significant decrease bowel sounds. Obese. Soft. NT. ND. Extremities: Bilateral pitting edema : Butt in place Neurologic: Unable to assess due to sedation. . PERRL Objective Data Vital Signs Vital Signs: Vital Signs - 24 hr 08/21/24 15:40 08/21/24 15:40 08/21/24 15:53 Temperature 99.1 F Pulse Rate 59 L 58 L Respiratory Rate 22 H Blood Pressure 103/55 L 105/55 L Pulse Oximetry 95 Oxygen Delivery Fraction of Inspired Oxygen 30 08/21/24 16:00 08/21/24 16:00 08/21/24 16:00 Temperature Pulse Rate 56 L 55 L 54 L Respiratory Rate Blood Pressure 89/53 L 89/53 L Pulse Oximetry Oxygen Delivery Fraction of Inspired Oxygen 08/21/24 16:00 08/21/24 16:00 08/21/24 16:00 Temperature 98.8 F Pulse Rate 57 L 56 L Respiratory Rate 22 H 22 H Blood Pressure 89/53 L Pulse Oximetry 95 Oxygen Delivery Fraction of Inspired Oxygen 30 08/21/24 16:00 08/21/24 16:00 08/21/24 16:00 Temperature Pulse Rate 56 L 56 L Respiratory Rate 22 H Blood Pressure 89/53 L Pulse Oximetry 97 Oxygen Delivery Mechanical Ventilation Fraction of Inspired Oxygen 30 08/21/24 16:15 08/21/24 16:30 08/21/24 16:30 Temperature Pulse Rate 53 L 55 L 53 L Respiratory Rate Blood Pressure 83/50 L 87/50 L 87/50 L Pulse Oximetry Oxygen Delivery Fraction of Inspired Oxygen 08/21/24 16:45 08/21/24 16:48 08/21/24 17:00 Temperature Pulse Rate 58 L 53 L 53 L Respiratory Rate Blood Pressure 107/65 116/67 Pulse Oximetry 97 Oxygen Delivery Mechanical Ventilation Fraction of Inspired Oxygen 30 08/21/24 17:15 08/21/24 17:30 08/21/24 17:34 Temperature Pulse Rate 52 L 52 L 51 L Respiratory Rate Blood Pressure 119/60 121/60 121/60 Pulse Oximetry Oxygen Delivery Fraction of Inspired Oxygen 08/21/24 17:34 08/21/24 17:45 08/21/24 18:00 Temperature Pulse Rate 51 L 52 L 52 L Respiratory Rate Blood Pressure 121/60 109/58 L Pulse Oximetry Oxygen Delivery Fraction of Inspired Oxygen 08/21/24 18:00 08/21/24 18:00 08/21/24 18:00 Temperature 98.8 F Pulse Rate 53 L 53 L 53 L Respiratory Rate 22 H 22 H 22 H Blood Pressure 108/56 L Pulse Oximetry 95 Oxygen Delivery Fraction of Inspired Oxygen 08/21/24 18:00 08/21/24 18:00 08/21/24 18:00 Temperature Pulse Rate 53 L 53 L 52 L Respiratory Rate Blood Pressure 108/56 L 108/56 L 108/56 L Pulse Oximetry Oxygen Delivery Fraction of Inspired Oxygen 08/21/24 18:15 08/21/24 18:30 08/21/24 18:45 Temperature Pulse Rate 52 L 58 L 53 L Respiratory Rate Blood Pressure 110/55 L 99/58 L 91/51 L Pulse Oximetry Oxygen Delivery Fraction of Inspired Oxygen 08/21/24 19:00 08/21/24 19:15 08/21/24 19:25 Temperature Pulse Rate 53 L 52 L 52 L Respiratory Rate Blood Pressure 103/53 L 103/53 L 107/55 L Pulse Oximetry Oxygen Delivery Fraction of Inspired Oxygen 08/21/24 19:35 08/21/24 20:00 08/21/24 20:00 Temperature 98.3 F Pulse Rate 56 L 125 H 125 H Respiratory Rate 22 H 22 H 22 H Blood Pressure 115/56 L Pulse Oximetry 92 Oxygen Delivery Fraction of Inspired Oxygen 08/21/24 20:00 08/21/24 20:00 08/21/24 20:00 Temperature 98.7 F Pulse Rate 125 H 124 H Respiratory Rate 22 H Blood Pressure 116/74 116/74 Pulse Oximetry 92 91 Oxygen Delivery Mechanical Ventilation Fraction of Inspired Oxygen 30 08/21/24 20:00 08/21/24 20:00 08/21/24 20:23 Temperature Pulse Rate 127 H 127 H Respiratory Rate Blood Pressure 120/65 Pulse Oximetry Oxygen Delivery Fraction of Inspired Oxygen 30 08/21/24 20:32 08/21/24 20:50 08/21/24 21:23 Temperature Pulse Rate 124 H 122 H 111 H Respiratory Rate Blood Pressure 118/67 107/84 Pulse Oximetry 91 Oxygen Delivery Mechanical Ventilation Fraction of Inspired Oxygen 40 08/21/24 21:42 08/21/24 21:48 08/21/24 22:00 Temperature Pulse Rate 96 121 H 106 H Respiratory Rate Blood Pressure 102/56 L Pulse Oximetry Oxygen Delivery Fraction of Inspired Oxygen 08/21/24 22:00 08/21/24 22:18 08/21/24 22:18 Temperature 98.5 F Pulse Rate 98 95 95 Respiratory Rate 22 H 22 H 22 H Blood Pressure 105/72 Pulse Oximetry 96 Oxygen Delivery Fraction of Inspired Oxygen 04/05/25 22:19 08/21/24 22:19 08/21/24 22:59 Temperature Pulse Rate 94 106 H 93 Respiratory Rate Blood Pressure 96/65 L 96/65 L Pulse Oximetry 97 Oxygen Delivery Mechanical Ventilation Fraction of Inspired Oxygen 35 08/21/24 23:38 08/22/24 00:00 08/22/24 00:00 Temperature 98.7 F Pulse Rate 94 102 H Respiratory Rate 22 H Blood Pressure 115/91 H 96/63 L Pulse Oximetry 98 97 Oxygen Delivery Mechanical Ventilation Fraction of Inspired Oxygen 30 08/22/24 00:00 08/22/24 00:00 08/22/24 00:00 Temperature Pulse Rate 103 H 91 Respiratory Rate 22 H Blood Pressure Pulse Oximetry Oxygen Delivery Fraction of Inspired Oxygen 40 08/22/24 00:00 08/22/24 00:00 08/22/24 00:00 Temperature Pulse Rate 91 91 91 Respiratory Rate 22 H Blood Pressure 96/63 L 96/63 L Pulse Oximetry Oxygen Delivery Fraction of Inspired Oxygen 08/22/24 00:19 08/22/24 01:51 08/22/24 02:00 Temperature Pulse Rate 89 90 87 Respiratory Rate 22 H Blood Pressure 102/77 100/56 L Pulse Oximetry 96 97 Oxygen Delivery Mechanical Ventilation Fraction of Inspired Oxygen 35 08/22/24 02:00 08/22/24 02:00 08/22/24 02:00 Temperature Pulse Rate 90 90 90 Respiratory Rate 22 H 22 H Blood Pressure 100/56 L Pulse Oximetry Oxygen Delivery Fraction of Inspired Oxygen 08/22/24 02:00 08/22/24 02:00 08/22/24 02:00 Temperature Pulse Rate 90 90 88 Respiratory Rate Blood Pressure 100/56 L 100/56 L Pulse Oximetry Oxygen Delivery Fraction of Inspired Oxygen 08/22/24 03:28 08/22/24 03:28 08/22/24 03:29 Temperature Pulse Rate 92 92 92 Respiratory Rate 22 H 22 H Blood Pressure 97/61 L Pulse Oximetry Oxygen Delivery Fraction of Inspired Oxygen 08/22/24 04:00 08/22/24 04:00 08/22/24 04:00 Temperature 98.8 F Pulse Rate 99 87 87 Respiratory Rate 22 H 22 H Blood Pressure 95/61 L 100/59 L Pulse Oximetry 97 Oxygen Delivery Fraction of Inspired Oxygen 08/22/24 04:00 08/22/24 04:00 08/22/24 04:00 Temperature Pulse Rate 87 87 87 Respiratory Rate 22 H Blood Pressure 100/59 L 100/59 L Pulse Oximetry Oxygen Delivery Fraction of Inspired Oxygen 08/22/24 04:00 08/22/24 04:00 08/22/24 04:00 Temperature Pulse Rate 85 Respiratory Rate Blood Pressure Pulse Oximetry 97 Oxygen Delivery Mechanical Ventilation Fraction of Inspired Oxygen 35 35 08/22/24 04:57 08/22/24 06:00 08/22/24 06:00 Temperature Pulse Rate 79 85 85 Respiratory Rate 22 H Blood Pressure Pulse Oximetry 97 Oxygen Delivery Mechanical Ventilation Fraction of Inspired Oxygen 35 08/22/24 06:00 08/22/24 06:00 08/22/24 06:00 Temperature Pulse Rate 85 85 85 Respiratory Rate 22 H Blood Pressure 99/57 L 99/57 L Pulse Oximetry Oxygen Delivery Fraction of Inspired Oxygen 08/22/24 06:00 08/22/24 06:00 08/22/24 07:17 Temperature Pulse Rate 85 78 84 Respiratory Rate 22 H Blood Pressure 99/57 L 110/62 Pulse Oximetry 97 97 Oxygen Delivery Mechanical Ventilation Fraction of Inspired Oxygen 35 08/22/24 07:17 08/22/24 07:31 08/22/24 07:31 Temperature Pulse Rate 84 82 75 Respiratory Rate 22 H 22 H 22 H Blood Pressure Pulse Oximetry Oxygen Delivery Fraction of Inspired Oxygen 08/22/24 08:00 08/22/24 08:00 08/22/24 08:00 Temperature 98.7 F Pulse Rate 57 L 58 L Respiratory Rate 22 H Blood Pressure 109/62 109/62 Pulse Oximetry 95 Oxygen Delivery Fraction of Inspired Oxygen 35 08/22/24 08:00 08/22/24 08:00 08/22/24 08:00 Temperature Pulse Rate 58 L 58 L 58 L Respiratory Rate 22 H Blood Pressure 109/62 109/62 Pulse Oximetry Oxygen Delivery Fraction of Inspired Oxygen 08/22/24 08:00 08/22/24 08:00 08/22/24 08:00 Temperature Pulse Rate 58 L 58 L Respiratory Rate 22 H Blood Pressure Pulse Oximetry 95 Oxygen Delivery Mechanical Ventilation Fraction of Inspired Oxygen 35 08/22/24 08:10 08/22/24 08:25 08/22/24 08:57 Temperature Pulse Rate 59 L 58 L 65 Respiratory Rate 22 H Blood Pressure 103/45 L 88/48 L Pulse Oximetry Oxygen Delivery Fraction of Inspired Oxygen 08/22/24 10:00 08/22/24 10:00 08/22/24 10:00 Temperature 99.5 F Pulse Rate 60 61 61 Respiratory Rate 22 H 22 H Blood Pressure 102/51 L Pulse Oximetry 96 Oxygen Delivery Fraction of Inspired Oxygen 08/22/24 10:00 08/22/24 10:00 08/22/24 10:00 Temperature Pulse Rate 61 61 61 Respiratory Rate 22 H Blood Pressure 102/51 L 102/51 L Pulse Oximetry Oxygen Delivery Fraction of Inspired Oxygen 08/22/24 10:29 08/22/24 12:00 08/22/24 12:00 Temperature 99.5 F Pulse Rate 60 64 64 Respiratory Rate 22 H 22 H Blood Pressure 107/52 L Pulse Oximetry 96 94 Oxygen Delivery Mechanical Ventilation Fraction of Inspired Oxygen 30 08/22/24 12:00 08/22/24 12:00 08/22/24 12:00 Temperature Pulse Rate 63 64 Respiratory Rate Blood Pressure 107/52 L 107/52 L Pulse Oximetry 94 Oxygen Delivery Mechanical Ventilation Fraction of Inspired Oxygen 30 08/22/24 12:00 08/22/24 12:00 08/22/24 12:50 Temperature 100.4 F H Pulse Rate 63 Respiratory Rate Blood Pressure Pulse Oximetry Oxygen Delivery Fraction of Inspired Oxygen 30 08/22/24 12:56 08/22/24 13:25 08/22/24 13:25 Temperature 100.4 F H Pulse Rate 66 67 Respiratory Rate Blood Pressure 114/59 L 114/59 L Pulse Oximetry Oxygen Delivery Fraction of Inspired Oxygen Intake/Output Intake/Output: Intake & Output 08/19/24 08/20/24 08/21/24 08/22/24 23:59 23:59 23:59 23:59 Intake Total 2655.2 2696.1 1602.8 860.9 Output Total 1100 2685 2381 750 Balance 1555.2 11.1 -778.2 110.9 Meds/Results Medications: Active Medications Generic Name Dose Route Start Last Admin Trade Name Freq PRN Reason Stop Dose Admin Acetaminophen 650 mg 08/18/24 21:48 08/22/24 12:56 Acetaminophen Elixir 325 Mg/10.15 Ml Udc PO 650 mg Q4H PRN Administration Mild Pain (1-3) or Fever Dextrose 12.5 gm 04/02/25 05:53 Dextrose 50% 25 Gm/50 Ml Syringe IV PUSH PRN PRN Hypoglycemia Protocol Glucagon 1 mg 08/18/24 05:53 Glucagon For Inj 1 Mg Vial IM PRN PRN Hypoglycemia Protocol Glucose 15 gm 08/18/24 05:53 Glucose Oral Gel 15 Gm Of Glucse In 37.5 Gm Tube PO PRN PRN Hypoglycemia Protocol Heparin Sodium (Porcine) 5,500 units 08/18/24 15:08/18/24 23:23 Heparin Sodium 5,000 Units/Ml Vial IV PUSH 5,500 units PRN PRN Administration aPTT less than 55 seconds Heparin Sodium (Porcine) 3,000 units 08/18/24 15:05 08/22/24 12:51 Heparin Sodium 5,000 Units/Ml Vial IV PUSH 3,000 units PRN PRN Administration aPTT 55 - 70 seconds Fentanyl Citrate 2,500 mcg in 250 mls @ 0 mls/hr 08/18/24 00:55 08/22/24 12:00 Fentanyl 2,500 Mcg/Ns 250 Ml IV CONT 0 mcg/hr .Q0M TEMI 0 mls/hr Titration Protocol Midazolam HCl 100 mg in 100 mls @ 0 mls/hr 08/18/24 00:55 08/22/24 10:00 Versed 100 Mg/Ns 100 Ml IV CONT 0 mg/hr .Q0M TEMI 0 mls/hr Titration Protocol Dextrose 1,000 mls @ 100 mls/hr 08/18/24 05:53 Dextrose 5% 1,000 Ml IVPB PRN PRN Hypoglycemia Protocol Heparin Sodium/Dextrose 25,000 units in 250 mls @ 20 mls/hr 08/18/24 15:05 08/22/24 13:24 Heparin Sodium/D5w 100 Units/Ml IV CONT 2,000 units/hr .[id number] TEMI 20 mls/hr Administration Protocol 2,000 UNITS/HR Norepinephrine Bitartrate 8 mg in 250 mls @ 9.375 mls/hr 08/19/24 12:30 08/22/24 13:25 Levophed 8 Mg/D5w 250 Ml IV CONT 5 mcg/min .Q24H TEMI 9.38 mls/hr Titration Protocol 5 MCG/MIN Cefepime HCl 1 gm in 50 mls @ 100 mls/hr 08/20/24 21:00 08/21/24 21:42 Maxipime 1 Gm/Ns 50 Ml IVPB Infused QHS TEMI Infusion Albumin Human 50 mls @ 999 mls/hr 08/21/24 06:28 Albutein IVPB 09/20/24 06:27 Q10M PRN HYPOTENSION Vasopressin 100 units/ 100 mls @ 1.8 mls/hr 08/21/24 23:35 08/22/24 13:25 Dextrose IV CONT 0.03 units/min .[id number] TEMI 1.8 mls/hr Titration Protocol 0.03 UNITS/MIN Insulin Aspart 4 - 8 units 08/20/24 21:05 08/22/24 12:50 Insulin Aspart (*Bkc) 100 Units/Ml SUB-Q 5 units Q4HR TEMI Administration Protocol Insulin Glargine 20 units 08/21/24 09:00 08/22/24 08:36 Insulin Glargine (*Bkc) 100 Units/Ml SUB-Q 20 units QAM TEMI Administration Ipratropium [place] 0.5 mg 08/20/24 07:40 08/22/24 07:17 Ipratropium Br 0.02% Inh Soln 0.5 Mg/2.5 Ml Vial INHALATION 0.5 mg Q6HRT PRN Administration Wheezing Levalbuterol HCl 1.25 mg 08/20/24 07:40 08/22/24 07:17 Levalbuterol Neb 1.25 Mg/3 Ml INHALATION 1.25 mg Q6HRT PRN Administration Wheezing Metoclopramide HCl 10 mg 08/21/24 07:50 08/22/24 12:50 Metoclopramide Hcl 10 Mg/10 Ml Soln Udc PO 10 mg Q6H TEMI Administration Midazolam HCl 2 mg 08/19/24 02:59 08/19/24 05:16 Midazolam Hcl (*Crx) 2 Mg/2 Ml Vial IV PUSH 2 mg Q1HR PRN Administration Agitation Multi-Ingred Cream/Lotion/Oil/Oint 1 applic 08/18/24 09:00 08/22/24 08:37 Mineral Oil/White Petrolatum Ointment EACH EYE 1 applic Q12HR TEMI Administration Mupirocin 1 applic 08/15/24 21:00 08/22/24 08:37 Mupirocin 2% Oint 22 Gm Tube EACH NARE 1 applic Q12HR TEMI Administration Pantoprazole Sodium 40 mg 08/19/24 09:00 08/22/24 08:16 Pantoprazole Sodium Iv 40 Mg Vial IV PUSH 40 mg QAM TEMI Administration Polyethylene Glycol 17 gm 08/15/24 22:20 08/22/24 08:16 Polyethylene Glycol 3350 17 Gm Powd.Pack PO 17 gm DAILY PRN Administration constipation Sodium Chloride 10 ml 08/19/24 22:00 08/22/24 13:26 Central Line Flush IV PUSH 10 ml Q8HR TEMI Administration Sodium Chloride 20 ml 08/19/24 18:43 Central Line Flush IV PUSH PRN PRN after blood draws Vancomycin HCl 1 each 08/20/24 09:39 Vancomycin For Hemodialysis IVPB PRN PRN Vancomycin Protocol Radiology Results: ITS Impressions Chest CTA 08/15/24 11:11 IMPRESSION: No pulmonary embolus. No thoracic aortic dissection. Right upper lobe infiltrate with patchy bilateral airspace disease, likely inflammatory/congestive rather than infectious. Small bilateral pleural effusions with adjacent atelectasis. Chest/Abdomen/Pelvis CT 08/18/24 12:28 IMPRESSION: 1. Significant interval progression in an lobar pneumonia along with increasing small bilateral pleural effusions. 2. No acute intra-abdominal/pelvic process. 3. Subtle 2.5 cm mass at the upper pole of the right kidney consistent with provided history of renal tumor. 4. Calcification is at the bilateral kidneys which appear linear and likely ath erosclerotic although could not exclude nonobstructing nephrolithiasis. No hydronephrosis in either kidney. 5. Unchanged mild likely reactive mediastinal lymphadenopathy. 6. Endotracheal tube, nasogastric tube and suprapubic Butt catheter all in expected positions. Venous Doppler Study 08/18/24 14:42 IMPRESSION: 1. Bilateral [id number] deep venous thrombosis in the left and right posterior tibial veins. Findings were discussed with the ICU nurse Carlos Herrera at 2:45 PM. Renal Ultrasound 08/19/24 14:10 IMPRESSION: No hydronephrosis or renal calculi. Findings suggesting medical renal disease. Findings within the upper pole of the right kidney consistent with patient's history, as detailed above. Abdomen X-Ray 08/21/24 08:25 IMPRESSION: 1. Nonspecific paucity of bowel gas with no dilated gas-filled loops of bowel to suggest obstruction. Chest X-Ray 08/22/24 08:08 IMPRESSION: No significant change from previous examination. Labs Labs: Laboratory Results - last 24 hr 08/21/24 08/21/24 08/21/24 17:29 20:21 23:49 WBC RBC Hgb Hct MCV MCH MCHC RDW Plt Count MPV APTT Puncture Site ABG pH ABG pCO2 ABG pO2 ABG PO2/FiO2 Ratio ABG HCO3 ABG O2 Saturation ABG O2 Content ABG Base Excess A-a Gradient Oxyhemoglobin Carboxyhemoglobin Methemoglobin Reduced Hemoglobin Total Hemoglobin O2 Delivery Device O2 Liters/Min Minute Volume Vent Rate Vent Mode FiO2 Tidal Volume PEEP Peak Inspir Pressure Pressure Support Sodium Potassium Chloride Carbon Dioxide Anion Gap BUN Creatinine Estim Creat Clear Calc Estimated GFR Glucose POC Capillary Glucose 213 H 226 H 280 H Calcium Phosphorus Magnesium Total Bilirubin AST ALT Alkaline Phosphatase Total Protein Albumin Random Vancomycin 08/22/24 08/22/24 08/22/24 04:16 04:59 05:10 WBC 11.7 H RBC 2.88 L Hgb 7.4 L Hct 24.2 L MCV 84.0 MCH 25.7 L MCHC 30.6 L RDW 17.6 H Plt Count 185 MPV 11.5 H APTT 66.4 H Puncture Site Left radial ABG pH 7.448 ABG pCO2 37.8 ABG pO2 78.9 L ABG PO2/FiO2 Ratio 2.25 ABG HCO3 25.6 ABG O2 Saturation 96.2 ABG O2 Content 13.8 L ABG Base Excess 1.6 A-a Gradient 126.7 Oxyhemoglobin 95.0 Carboxyhemoglobin 0.1 Methemoglobin 0.3 Reduced Hemoglobin 4.6 Total Hemoglobin 10.3 L O2 Delivery Device Ventilator O2 Liters/Min Not Reportable Minute Volume Not Reportable Vent Rate 22 Vent Mode Cmv FiO2 35 Tidal Volume 380 PEEP 8 Peak Inspir Pressure Not Reportable Pressure Support Not Reportable Sodium 136 L Potassium 3.5 Chloride 98 Carbon Dioxide 25 Anion Gap 13 H BUN 42 H Creatinine 2.46 H Estim Creat Clear Calc 18 Estimated GFR 19 L Glucose 304 H POC Capillary Glucose 286 H Calcium 8.4 Phosphorus 3.6 Magnesium 2.2 Total Bilirubin 0.5 AST 388 H ALT 945 H Alkaline Phosphatase 124 Total Protein 6.0 L Albumin 3.2 L Random Vancomycin 19.7 04/06/25 04/06/25 04/06/25 08:20 11:18 11:28 WBC RBC Hgb Hct MCV MCH MCHC RDW Plt Count MPV APTT 67.4 H Puncture Site ABG pH ABG pCO2 ABG pO2 ABG PO2/FiO2 Ratio ABG HCO3 ABG O2 Saturation ABG O2 Content ABG Base Excess A-a Gradient Oxyhemoglobin Carboxyhemoglobin Methemoglobin Reduced Hemoglobin Total Hemoglobin O2 Delivery Device O2 Liters/Min Minute Volume Vent Rate Vent Mode FiO2 Tidal Volume PEEP Peak Inspir Pressure Pressure Support Sodium Potassium Chloride Carbon Dioxide Anion Gap BUN Creatinine Estim Creat Clear Calc Estimated GFR Glucose POC Capillary Glucose 293 H 278 H Calcium Phosphorus Magnesium Total Bilirubin AST ALT Alkaline Phosphatase Total Protein Albumin Random Vancomycin Quality VTE Prophylaxis VTE prophylaxis: mechanical ordered and pharmacologic ordered
[2024-08-22] MEDS: NOREPINEPHRINE 8 MG/D5W 250 ML 8 MG/250 ML BAG 7.5 MG IV CONT (15:27)
[2024-08-22 18:55] LABS: Glucose Point of Care 299 mg/dl (65-105)
[2024-08-22] MEDS: BISACODYL 10 MG SUPPOSITORY RECTAL (18:56)
[2024-08-22 19:11] LABS: Partial Thromboplastin Time 66.2 Seconds (22.3-36.8)
[2024-08-22] MEDS: CEFEPIME 1 GM/NS 50 ML 1 GM/50 ML BAG IVPB (21:44)
[2024-08-22 22:08] LABS: Glucose Point of Care 277 mg/dl (65-105)
[2024-08-23] VITALS (45 sets, daily range): BP systolic 91–130; BP diastolic 51–76; PULSE 66–94; RESP 24–32; TEMP 36.7–37.6; O2SAT 95–100
[2024-08-23] MEDS: INSULIN ASPART (*BKC) 100 UNITS/ML SUB-Q ×3 (00:44→08:48)
[2024-08-23] MEDS: METOCLOPRAMIDE HCL 10 MG/10 ML SOLN UDC PO ×3 (00:50→17:20)
[2024-08-23 00:54] LABS: Glucose Point of Care 288 mg/dl (65-105)
[2024-08-23] MEDS: HEPARIN SOD/D5W 100 UNITS/ML 25,000 UNITS/250 ML BAG 21 UNITS IV CONT (01:34)
[2024-08-23] MEDS: HEPARIN SODIUM 5,000 UNITS/ML VIAL 3000 UNITS IV PUSH ×2 (02:25→10:58)
[2024-08-23 05:26] LABS: Base Excess ABG -1.8 mEq/l (+/-2.0); Carboxyhemoglobin 0.6 % THb (0-2.0); Device VENTILATOR; Fractional Inspired Oxygen 30 %; HCO3 ABG 21.8 mEq/l (22.0-26.0); Modified Allen's Test Pass; Oxygen Content ABG 10.9 %vol (16.0-22.0); Oxyhemoglobin 93.4 % THb (90.0-100.0); PCO2 ABG 32.2 mmHg (35.0-45.0); PO2 ABG 70.1 mmHg (80.0-100.0); PO2 FiO2 Ratio Arterial Blood 2.34 %; Site Drawn RIGHT RADIAL; Total Hemoglobin 8.2 g/dL (12.0-18.0); pH ABG 7.449 (7.350-7.450)
[2024-08-23 05:27] LABS: Arterial Blood Gas PEEP 8 cmH2O; Arterial Blood Gas Tidal Volume 380 ml; Arterial Blood Gas Vent Mode CMV; Arterial Blood Gas Ventilator rate 22 /MIN
[2024-08-23] MEDS: CENTRAL LINE FLUSH 10 ML IV PUSH ×3 (05:33→21:00)
[2024-08-23 05:39] LABS: Glucose Point of Care 236 mg/dl (65-105)
[2024-08-23 05:46] LABS: Hematocrit 23.6 % (37.0-47.0); Hemoglobin 7.4 g/dL (12.0-15.0); Mean Corpuscular HGB Conc 31.4 g/dl (32-36); Mean Corpuscular Hemoglobin 26.8 pg (26-34); Mean Corpuscular Volume 85.5 fl (80-100); Mean Platelet Volume 11.9 fl (7.4-10.4); Platelet Count Result 165 k/mm3 (150-375); Red Blood Count 2.76 M/mm3 (4.2-5.4); Red Cell Distribution Width 18.1 % (11.5-14.5); White Blood Count 13.2 K/mm3 (4.5-10.0)
[2024-08-23 05:59] LABS: Alanine Aminotransferase 534 U/L (6-35); Albumin Level 3.2 g/dL (3.5-5.1); Alkaline Phosphatase 110 U/L (38-126); Anion Gap 17 mmol/L (4-12); Aspartate Amino Transferase 102 U/L (14-36); Bilirubin,Total 0.4 mg/dL (0.2-1.3); Blood Urea Nitrogen 80 mg/dL (7-17); Calcium 8.5 mg/dL (8.4-10.2); Carbon Dioxide 21 mmol/L (22-30); Chloride 96 mmol/L (98-107); Estimated CRCL calculation 13 ml/min; Estimated Glomerular Filt Rate 13; Glucose 239 mg/dL (65-110); Magnesium 2.2 mg/dL (1.6-2.3); Phosphorus 4.2 mg/dL (2.5-4.5); Potassium 3.9 mmol/L (3.4-5.0); Sodium 134 mmol/L (137-145)
[2024-08-23 06:06] LABS: Vancomycin Random 18.1 ug/mL (10-20)
[2024-08-23 07:45] LABS: Glucose Point of Care 210 mg/dl (65-105)
[2024-08-23] MEDS: PANTOPRAZOLE SODIUM IV 40 MG VIAL IV PUSH (08:48)
[2024-08-23] MEDS: MINERAL OIL/WHITE PETROLATUM OINTMENT 1 APPLIC EACH EYE ×2 (08:48→21:00)
[2024-08-23] MEDS: INSULIN GLARGINE (*BKC) 100 UNITS/ML 20 UNITS SUB-Q (08:49)
[2024-08-23] MEDS: MUPIROCIN 2% OINT 22 GM TUBE 1 APPLIC EACH NARE ×2 (08:50→21:00)
[2024-08-23 08:56] LABS: Partial Thromboplastin Time 67.1 Seconds (22.3-36.8)
--- NOTE | 2024-08-23 09:12 | P.PNINT_ITS ---
Progress Note: A&P Assessment and Plan (1) Acute respiratory failure with hypoxia: Code(s): J96.01 - Acute respiratory failure with hypoxia Status: Acute Assessment and Plan: Acute Respiratory failure secondary to combination of pneumonia and congestive heart failure Patient now intubated and on mechanical ventilation. Ventilator settings, ABG and chest reviewed Currently on PEEP of 10 and I have wean down FiO2 to 30%. Peep is at [address] chest 08/18 MPRESSION: 1. Significant interval progression in an lobar pneumonia along with increasing small bilateral pleural effusions. Patient has elevated procalcitonin and BNP she is positive on intake output balance but her echocardiogram shows normal biventricular size and systolic function Bronchodilators Blood cultures have been sent and pending. Sputum culture is growing Staph aureus. Susceptibilities pending Urine Legionella antigen, mycoplasma pneumonia antibody and urine pneumococcal antigen negative Dialysis to remove fluid Continue vancomycin cefepime azithromycin Continue to hold today Chest x-ray reviewed and shows bilateral infiltrates and effusion (2) Congestive heart failure: Code(s): I50.9 - Heart failure, unspecified Status: Acute Assessment and Plan: See above (3) Non-ST elevation myocardial infarction (NSTEMI): Code(s): I21.4 - Non-ST elevation (NSTEMI) myocardial infarction Status: Acute Assessment and Plan: History of coronary disease status post PCI in the past now presented with elevated troponin. Cardiology following Currently on aspirin Other medications on hold due to low blood pressure Statin Hold was slightly elevated LFTs. No plan for cardiac catheterization at this time. (4) Coronary artery disease: Code(s): I25.10 - Atherosclerotic heart disease of [place] coronary artery without angina pectoris Status: Acute Assessment and Plan: See above (5) Type 2 diabetes mellitus: Code(s): E11.9 - Type 2 diabetes mellitus without complications Status: Chronic Assessment and Plan: Sliding scale insulin Continue Lantus Off steroid (6) Renal failure: Code(s): N19 - Unspecified kidney failure Status: Acute Assessment and Plan: Patient presented with creatinine of 1.5. Baseline creatinine unknown She has suprapubic catheter. As per son patient has had a renal tumor which was being monitored and plan was to start radiation therapy by her urology CT scan showed Subtle 2.5 cm mass at the upper pole of the right kidney consistent with provided history of renal tumor. Calcification is at the bilateral kidneys which appear linear and likely atherosclerotic although could not exclude nonobstructing nephrolithiasis. No h ydronephrosis in either kidney. Diuretics were held and patient was given albumin bolus Creatinine continue to increase with poor urine output. After discussion with patient's family and concrete spreader decision was made to initiate dialysis. 08/19 dialysis catheter was placed and patient was dialyzed 1 L fluid was removed 08/20 and 08/21 patient was dialyzed again Monitor urine output electrolytes and creatinine Nephrology follow (7) Pneumonia: Code(s): J18.9 - Pneumonia, unspecified organism Status: Acute Assessment and Plan: See above (8) Kidney mass: Code(s): N28.89 - Other specified disorders of kidney and ureter Status: Acute Assessment and Plan: Patient's son reports history of kidney mass which is being monitor as it was too big to be removed without total nephrectomy. He states that patient was supposed to get radiation therapy in a month or so before she fractured her ankle. CT scan shows 2.5 cm renal mass on the right side and no hydronephrosis. No intervention at this time (9) DVT (deep venous thrombosis): Code(s): I82.409 - Acute embolism and thrombosis of unspecified deep veins of unspecified lower extremity Status: Acute Assessment and Plan: Bilateral venous Dopplers obtained due to swelling in the legs. Ultrasound showed Bilateral uhjjj-snc-rane deep venous thrombosis in the left and right posterior tibial veins. Findings were discussed with the ICU nurse Carlos Herrera at 2:45 PM. Patient started on heparin infusion (10) Septic shock: Code(s): A41.9 - Sepsis, unspecified organism; R65.21 - Severe sepsis with septic shock Status: Acute Assessment and Plan: Continue Levophed and vasopressin (11) Ileus: Code(s): K56.7 - Ileus, unspecified Status: Acute Assessment and Plan: Patient has significant output from her OG tube. She has not been tolerating tube feeds for last 2 days. She is on Reglan Bowel sounds are decreased. KUB does not show anything significant abnormal I have requested IR for a post pyloric tube insertion and also obtain a CT abdomen pelvis today (12) Atrial fibrillation with RVR: Code(s): I48.91 - Unspecified atrial fibrillation Status: Acute Assessment and Plan: Patient went into AFib with RVR after hemodialysis session yesterday. She was started on amiodarone infusion. She has converted to sinus bradycardia this morning and I will discontinue it infusion at this time She is already on heparin infusion Plan DVT prophylaxis -Lovenox Stress ulcer prophylaxis - PPI Nutrition -tube feeds on hold as patient is not tolerating Code Status - Full Code 08/18 I spoke to and updated patient's son and his at bedside I answered all his questions. 08/19 I also met with patient's both sons at they wanted to proceed with hemodialysis. 08/22 met with patient's 2 sons and updated them with patient's status including continued respiratory failure, shock, new issues of AFib with RVR and. I also updated them with treatment plan and answered all the questions. Total Critical Care Time - 30 minutes Due to a high probability of clinically significant, life threatening deterioration, the patient required my highest level of preparedness to intervene emergently and I personally spent this critical care time directly and personally managing the patient. This critical care time included obtaining a history; examining the patient; pulse oximetry; ordering and review of studies; arranging urgent treatment with development of a management plan; evaluation of patient's response to treatment; frequent reassessment; and discussions with other providers. It was exclusive of separately billable procedures and treating other patients and teaching time. Please see Assessment and Plan section and the rest of the note for further information on patient assessment and treatment Subjective Date/time seen: 08/23/24 Overnight events reviewed. Afebrile Continues to be on mechanical ventilation 30% FiO2 and 8 of PEEP Continues to be on Levophed and vaso per Off continuous sedation OG tube to low intermittent suction Sinus bradycardia monitor Interval history: 08/19 temporary dialysis catheter placed patient was dialyzed / vent into AFib with RVR. Converted to sinus Steve with amiodarone Review of Systems Review of Systems: ROS unobtainable: Yes unobtainable due to endotracheal tube, unobtainable due to medical condition and unobtainable due to mental status Exam Narrative: General: Pt is sedated, intubated and on mechanical ventilation Lungs/Chest: Trachea central Coarse BS B/L, No crackles or wheezing. Cardiac: RRR. Normal S1 S2. No murmurs Circulation: Feet are cold Abdomen: Significant decrease bowel sounds. Obese. Soft. NT. ND. Extremities: Bilateral pitting edema : Butt in place Neurologic: Off sedation infusion was still sedated, PERRL Objective Data Vital Signs Vital Signs: Vital Signs - 24 hr 08/22/24 10:00 08/22/24 10:00 08/22/24 10:00 Temperature 37.5 C Pulse Rate 60 61 61 Respiratory Rate 22 H 22 H Blood Pressure 102/51 L Pulse Oximetry 96 Oxygen Delivery Fraction of Inspired Oxygen 08/22/24 10:00 08/22/24 10:00 08/22/24 10:00 Temperature Pulse Rate 61 61 61 Respiratory Rate 22 H Blood Pressure 102/51 L 102/51 L Pulse Oximetry Oxygen Delivery Fraction of Inspired Oxygen 08/22/24 10:29 08/22/24 12:00 08/22/24 12:00 Temperature 37.5 C Pulse Rate 60 64 64 Respiratory Rate 22 H 22 H Blood Pressure 107/52 L Pulse Oximetry 96 94 Oxygen Delivery Mechanical Ventilation Fraction of Inspired Oxygen 30 08/22/24 12:00 08/22/24 12:00 08/22/24 12:00 Temperature Pulse Rate 63 64 Respiratory Rate Blood Pressure 107/52 L 107/52 L Pulse Oximetry 94 Oxygen Delivery Mechanical Ventilation Fraction of Inspired Oxygen 30 08/22/24 12:00 08/22/24 12:00 08/22/24 12:00 Temperature Pulse Rate 63 63 Respiratory Rate 22 H Blood Pressure Pulse Oximetry Oxygen Delivery Fraction of Inspired Oxygen 30 08/22/24 12:50 08/22/24 12:56 08/22/24 13:25 Temperature 38.0 C H 38.0 C H Pulse Rate 66 Respiratory Rate Blood Pressure 114/59 L Pulse Oximetry Oxygen Delivery Fraction of Inspired Oxygen 08/22/24 13:25 08/22/24 13:56 08/22/24 14:00 Temperature 37.7 C H Pulse Rate 67 65 Respiratory Rate 22 H Blood Pressure 114/59 L Pulse Oximetry Oxygen Delivery Fraction of Inspired Oxygen 08/22/24 14:00 08/22/24 14:00 08/22/24 14:00 Temperature 37.7 C H Pulse Rate 67 68 67 Respiratory Rate 22 H 26 H Blood Pressure 99/53 L Pulse Oximetry 94 Oxygen Delivery Fraction of Inspired Oxygen 08/22/24 14:27 08/22/24 15:23 08/22/24 15:25 Temperature Pulse Rate 67 65 65 Respiratory Rate Blood Pressure 102/53 L 102/53 L Pulse Oximetry 94 Oxygen Delivery Mechanical Ventilation Fraction of Inspired Oxygen 30 08/22/24 15:27 08/22/24 15:27 08/22/24 16:00 Temperature 37.8 C H Pulse Rate 66 66 67 Respiratory Rate 27 H Blood Pressure 102/53 L 102/53 L 104/57 L Pulse Oximetry 94 Oxygen Delivery Fraction of Inspired Oxygen 08/22/24 16:00 08/22/24 16:00 08/22/24 16:00 Temperature Pulse Rate 68 68 Respiratory Rate 26 H Blood Pressure 97/50 L Pulse Oximetry Oxygen Delivery Fraction of Inspired Oxygen 30 08/22/24 16:00 08/22/24 16:00 08/22/24 16:00 Temperature Pulse Rate 68 68 Respiratory Rate 26 H Blood Pressure 97/50 L Pulse Oximetry 93 Oxygen Delivery Mechanical Ventilation Fraction of Inspired Oxygen 30 08/22/24 16:00 08/22/24 16:52 08/22/24 18:00 Temperature Pulse Rate 67 67 74 Respiratory Rate 22 H Blood Pressure Pulse Oximetry 95 Oxygen Delivery Mechanical Ventilation Fraction of Inspired Oxygen 30 08/22/24 18:00 08/22/24 18:00 08/22/24 18:00 Temperature Pulse Rate 78 78 78 Respiratory Rate 22 H Blood Pressure 94/48 L 94/48 L Pulse Oximetry Oxygen Delivery Fraction of Inspired Oxygen 08/22/24 18:00 08/22/24 18:00 08/22/24 19:54 Temperature 37.6 C H Pulse Rate 74 68 67 Respiratory Rate 22 H 26 H Blood Pressure 94/48 L Pulse Oximetry 93 Oxygen Delivery Fraction of Inspired Oxygen 08/22/24 19:59 08/22/24 20:00 08/22/24 20:00 Temperature Pulse Rate 71 69 69 Respiratory Rate 24 H Blood Pressure 116/57 L Pulse Oximetry 99 Oxygen Delivery Mechanical Ventilation Fraction of Inspired Oxygen 30 08/22/24 20:00 08/22/24 20:00 08/22/24 20:00 Temperature Pulse Rate 69 73 Respiratory Rate Blood Pressure 116/57 L Pulse Oximetry Oxygen Delivery Fraction of Inspired Oxygen 30 08/22/24 20:00 08/22/24 20:02 08/22/24 20:45 Temperature Pulse Rate 71 71 Respiratory Rate 25 H 24 H Blood Pressure 116/57 L Pulse Oximetry 99 99 Oxygen Delivery Mechanical Ventilation Fraction of Inspired Oxygen 30 08/22/24 20:59 08/22/24 22:00 08/22/24 22:00 Temperature 37.7 C H Pulse Rate 69 89 89 Respiratory Rate 24 H 24 H Blood Pressure 107/58 L Pulse Oximetry 97 Oxygen Delivery Fraction of Inspired Oxygen 08/22/24 22:00 08/22/24 22:00 08/22/24 22:00 Temperature Pulse Rate 89 89 89 Respiratory Rate 24 H Blood Pressure 107/58 L 107/58 L Pulse Oximetry Oxygen Delivery Fraction of Inspired Oxygen 08/22/24 22:00 08/22/24 23:01 08/23/24 00:00 Temperature Pulse Rate 89 79 74 Respiratory Rate 24 H 25 H Blood Pressure Pulse Oximetry 94 Oxygen Delivery Mechanical Ventilation Fraction of Inspired Oxygen 30 08/23/24 00:00 08/23/24 00:00 08/23/24 00:00 Temperature Pulse Rate 74 74 74 Respiratory Rate 25 H Blood Pressure 103/51 L 103/51 L Pulse Oximetry Oxygen Delivery Fraction of Inspired Oxygen 08/23/24 00:00 08/23/24 00:00 08/23/24 00:00 Temperature 37.6 C Pulse Rate 75 74 Respiratory Rate 25 H Blood Pressure 103/51 L Pulse Oximetry 96 Oxygen Delivery Fraction of Inspired Oxygen 30 08/23/24 00:40 08/23/24 00:50 08/23/24 02:00 Temperature Pulse Rate 75 77 Respiratory Rate Blood Pressure 109/52 L Pulse Oximetry 95 Oxygen Delivery Mechanical Ventilation Fraction of Inspired Oxygen 30 08/23/24 02:00 08/23/24 02:00 08/23/24 02:00 Temperature Pulse Rate 77 77 77 Respiratory Rate 26 H 26 H Blood Pressure 91/51 L 91/51 L Pulse Oximetry 99 Oxygen Delivery Fraction of Inspired Oxygen 08/23/24 02:00 08/23/24 02:00 08/23/24 02:30 Temperature Pulse Rate 77 77 75 Respiratory Rate 26 H Blood Pressure 91/51 L Pulse Oximetry 97 Oxygen Delivery Mechanical Ventilation Fraction of Inspired Oxygen 30 08/23/24 04:00 08/23/24 04:00 08/23/24 04:00 Temperature 37.0 C Pulse Rate 76 Respiratory Rate 24 H Blood Pressure 99/57 L Pulse Oximetry 98 98 Oxygen Delivery Mechanical Ventilation Fraction of Inspired Oxygen 30 30 08/23/24 04:00 08/23/24 04:00 08/23/24 04:00 Temperature Pulse Rate 86 76 76 Respiratory Rate 24 H Blood Pressure 99/57 L Pulse Oximetry Oxygen Delivery Fraction of Inspired Oxygen 08/23/24 04:00 08/23/24 04:00 08/23/24 05:15 Temperature Pulse Rate 76 76 73 Respiratory Rate 24 H Blood Pressure 99/57 L Pulse Oximetry 98 Oxygen Delivery Mechanical Ventilation Fraction of Inspired Oxygen 30 08/23/24 05:34 08/23/24 06:00 08/23/24 06:35 Temperature Pulse Rate 71 71 71 Respiratory Rate 25 H Blood Pressure 102/52 L 94/52 L Pulse Oximetry 96 Oxygen Delivery Fraction of Inspired Oxygen 08/23/24 06:36 08/23/24 06:38 08/23/24 06:38 Temperature Pulse Rate 71 71 71 Respiratory Rate 26 H Blood Pressure 94/52 L 94/52 L Pulse Oximetry Oxygen Delivery Fraction of Inspired Oxygen 08/23/24 06:39 08/23/24 08:00 08/23/24 08:25 Temperature Pulse Rate 71 70 73 Respiratory Rate 24 H 26 H Blood Pressure 97/53 L Pulse Oximetry 96 100 Oxygen Delivery Mechanical Ventilation Fraction of Inspired Oxygen 30 Intake/Output Intake/Output: Intake & Output 08/20/24 08/21/24 08/22/24 08/23/24 23:59 23:59 23:59 23:59 Intake Total 2696.1 1602.8 1384.9 292.1 Output Total 2685 2381 800 300 Balance 11.1 -778.2 584.9 -7.9 Meds/Results Medications: Active Medications Generic Name Dose Route Start Last Admin Trade Name Freq PRN Reason Stop Dose Admin Acetaminophen 650 mg 08/18/24 21:48 08/22/24 12:56 Acetaminophen Elixir 325 Mg/10.15 Ml Udc PO 650 mg Q4H PRN Administration Mild Pain (1-3) or Fever Dextrose 12.5 gm 08/18/24 05:53 Dextrose 50% 25 Gm/50 Ml Syringe IV PUSH PRN PRN Hypoglycemia Protocol Epoetin Oliver-epbx 10,000 units 08/23/24 18:26 Epoetin Oliver-Epbx 10,000 Units/Ml Vial IV PUSH 08/23/24 18:27 ONCE ONE Glucagon 1 mg 08/18/24 05:53 Glucagon For Inj 1 Mg Vial IM PRN PRN Hypoglycemia Protocol Glucose 15 gm 08/18/24 05:53 Glucose Oral Gel 15 Gm Of Glucse In 37.5 Gm Tube PO PRN PRN Hypoglycemia Protocol Heparin Sodium (Porcine) 5,500 units 08/18/24 15:05 08/18/24 23:23 Heparin Sodium 5,000 Units/Ml Vial IV PUSH 5,500 units PRN PRN Administration aPTT less than 55 seconds Heparin Sodium (Porcine) 3,000 units 08/18/24 15:05 08/23/24 02:25 Heparin Sodium 5,000 Units/Ml Vial IV PUSH 3,000 units PRN PRN Administration aPTT 55 - 70 seconds Midazolam HCl 100 mg in 100 mls @ 0 mls/hr 08/18/24 00:55 08/23/24 06:39 Versed 100 Mg/Ns 100 Ml IV CONT 0 mg/hr .Q0M TEMI 0 mls/hr Titration Protocol Dextrose 1,000 mls @ 100 mls/hr 08/18/24 05:53 Dextrose 5% 1,000 Ml IVPB PRN PRN Hypoglycemia Protocol Heparin Sodium/Dextrose 25,000 units in 250 mls @ 22 mls/hr 08/18/24 15:05 08/23/24 06:39 Heparin Sodium/D5w 100 Units/Ml IV CONT 2,200 units/hr .[id number] TEMI 22 mls/hr Titration Protocol 2,200 UNITS/HR Norepinephrine Bitartrate 8 mg in 250 mls @ 1.875 mls/hr 08/19/24 12:30 08/23/24 06:38 Levophed 8 Mg/D5w 250 Ml IV CONT 1 mcg/min .Q24H TEMI 1.88 mls/hr Titration Protocol 1 MCG/MIN Cefepime HCl 1 gm in 50 mls @ 100 mls/hr 08/20/24 21:00 08/22/24 22:20 Maxipime 1 Gm/Ns 50 Ml IVPB Infused QHS TEMI Infusion Albumin Human 50 mls @ 999 mls/hr 08/21/24 06:28 Albutein IVPB 09/20/24 06:27 Q10M PRN HYPOTENSION Vasopressin 100 units/ 100 mls @ 1.2 mls/hr 08/21/24 23:35 08/23/24 06:38 Dextrose IV CONT 0.02 units/min .Q72H TEMI 1.2 mls/hr Titration Protocol 0.02 UNITS/MIN Insulin Aspart 4 - 8 units 08/20/24 21:05 08/23/24 08:48 Insulin Aspart (*Bkc) 100 Units/Ml SUB-Q 4 units Q4HR TEMI Administration Protocol Insulin Glargine 20 units 08/21/24 09:00 08/23/24 08:49 Insulin Glargine (*Bkc) 100 Units/Ml SUB-Q 20 units QAM TEMI Administration Ipratropium [place] 0.5 mg 08/20/24 07:40 08/22/24 19:54 Ipratropium Br 0.02% Inh Soln 0.5 Mg/2.5 Ml Vial INHALATION 0.5 mg Q6HRT PRN Administration Wheezing Levalbuterol HCl 1.25 mg 08/20/24 07:40 08/22/24 19:54 Levalbuterol Neb 1.25 Mg/3 Ml INHALATION 1.25 mg Q6HRT PRN Administration Wheezing Metoclopramide HCl 10 mg 08/23/24 08:00 08/23/24 08:48 Metoclopramide Hcl 10 Mg/10 Ml Soln Udc PO 10 mg Q6H TEMI Administration Midazolam HCl 2 mg 08/19/24 02:59 08/19/24 05:16 Midazolam Hcl (*Crx) 2 Mg/2 Ml Vial IV PUSH 2 mg Q1HR PRN Administration Agitation Multi-Ingred Cream/Lotion/Oil/Oint 1 applic 08/18/24 09:00 08/23/24 08:48 Mineral Oil/White Petrolatum Ointment EACH EYE 1 applic Q12HR TEMI Administration Mupirocin 1 applic 08/15/24 21:00 08/23/24 08:50 Mupirocin 2% Oint 22 Gm Tube EACH NARE 1 applic Q12HR TEMI Administration Pantoprazole Sodium 40 mg 08/19/24 09:00 08/23/24 08:48 Pantoprazole Sodium Iv 40 Mg Vial IV PUSH 40 mg QAM TEMI Administration Polyethylene Glycol 17 gm 08/15/24 22:20 08/22/24 08:16 Polyethylene Glycol 3350 17 Gm Powd.Pack PO 17 gm DAILY PRN Administration constipation Sodium Chloride 10 ml 08/19/24 22:00 08/23/24 05:33 Central Line Flush IV PUSH 10 ml Q8HR TEMI Administration Sodium Chloride 20 ml 08/19/24 18:43 Central Line Flush IV PUSH PRN PRN after blood draws Vancomycin HCl 1 each 08/20/24 09:39 Vancomycin For Hemodialysis IVPB PRN PRN Vancomycin Protocol Radiology Results: ITS Impressions Chest CTA 08/15/24 11:11 IMPRESSION: No pulmonary embolus. No thoracic aortic dissection. Right upper lobe infiltrate with patchy bilateral airspace disease, likely inflammatory/congestive rather than infectious. Small bilateral pleural effusions with adjacent atelectasis. Chest/Abdomen/Pelvis CT 08/18/24 12:28 IMPRESSION: 1. Significant interval progression in an lobar pneumonia along with increasing small bilateral pleural effusions. 2. No acute intra-abdominal/pelvic process. 3. Subtle 2.5 cm mass at the upper pole of the right kidney consistent with provided history of renal tumor. 4. Calcification is at the bilateral kidneys which appear linear and likely atherosclerotic although could not exclude nonobstructing nephrolithiasis. No hydronephrosis in either kidney. 5. Unchanged mild likely reactive mediastinal lymphadenopathy. 6. Endotracheal tube, nasogastric tube and suprapubic Butt catheter all in expected positions. Venous Doppler Study 08/18/24 14:42 IMPRESSION: 1. Bilateral [id number] deep venous thrombosis in the left and right posterior tibial veins. Findings were discussed with the ICU nurse Carlos Herrera at 2:45 PM. Renal Ultrasound 08/19/24 14:10 IMPRESSION: No hydronephrosis or renal calculi. Findings suggesting medical renal disease. Findings within the upper pole of the right kidney consistent with patient's history, as detailed above. Abdomen X-Ray 08/21/24 08:25 IMPRESSION: 1. Nonspecific paucity of bowel gas with no dilated gas-filled loops of bowel to suggest obstruction. Chest X-Ray 08/23/24 06:15 Impression: Veadg-[id number] bilateral pleural effusions with mild pulmonary edema pattern. Support tubes, as above. Labs Labs: Laboratory Results - last 24 hr 08/22/24 08/22/24 08/22/24 11:18 11:28 17:15 WBC RBC Hgb Hct MCV MCH MCHC RDW Plt Count MPV APTT 67.4 H Puncture Site ABG pH ABG pCO2 ABG pO2 ABG PO2/FiO2 Ratio ABG HCO3 ABG O2 Saturation ABG O2 Content ABG Base Excess A-a Gradient Oxyhemoglobin Carboxyhemoglobin Methemoglobin Reduced Hemoglobin Total Hemoglobin O2 Delivery Device O2 Liters/Min Minute Volume Vent Rate Vent Mode FiO2 Tidal Volume PEEP Peak Inspir Pressure Pressure Support Sodium Potassium Chloride Carbon Dioxide Anion Gap BUN Creatinine Estim Creat Clear Calc Estimated GFR Glucose POC Capillary Glucose 278 H 299 H Calcium Phosphorus Magnesium Total Bilirubin AST ALT Alkaline Phosphatase Total Protein Albumin Random Vancomycin 08/22/24 08/22/24 08/23/24 18:53 20:35 00:33 WBC RBC Hgb Hct MCV MCH MCHC RDW Plt Count MPV APTT 66.2 H Puncture Site ABG pH ABG pCO2 ABG pO2 ABG PO2/FiO2 Ratio ABG HCO3 ABG O2 Saturation ABG O2 Content ABG Base Excess A-a Gradient Oxyhemoglobin Carboxyhemoglobin Methemoglobin Reduced Hemoglobin Total Hemoglobin O2 Delivery Device O2 Liters/Min Minute Volume Vent Rate Vent Mode FiO2 Tidal Volume PEEP Peak Inspir Pressure Pressure Support Sodium Potassium Chloride Carbon Dioxide Anion Gap BUN Creatinine Estim Creat Clear Calc Estimated GFR Glucose POC Capillary Glucose 277 H 288 H Calcium Phosphorus Magnesium Total Bilirubin AST ALT Alkaline Phosphatase Total Protein Albumin Random Vancomycin 08/23/24 08/23/24 08/23/24 01:37 05:15 05:27 WBC 13.2 H RBC 2.76 L Hgb 7.4 L Hct 23.6 L MCV 85.5 MCH 26.8 MCHC 31.4 L RDW 18.1 H Plt Count 165 MPV 11.9 H APTT 65.0 H Puncture Site Right radial ABG pH 7.449 ABG pCO2 32.2 L ABG pO2 70.1 L ABG PO2/FiO2 Ratio 2.34 ABG HCO3 21.8 L ABG O2 Saturation 95.0 ABG O2 Content 10.9 L ABG Base Excess -1.8 A-a Gradient 106.0 Oxyhemoglobin 93.4 Carboxyhemoglobin 0.6 Methemoglobin 0.0 Reduced Hemoglobin 6.0 H Total Hemoglobin 8.2 L O2 Delivery Device Ventilator O2 Liters/Min Not Reportable Minute Volume Not Reportable Vent Rate 22 Vent Mode Cmv FiO2 30 Tidal Volume 380 PEEP 8 Peak Inspir Pressure Not Reportable Pressure Support Not Reportable Sodium 134 L Potassium 3.9 Chloride 96 L Carbon Dioxide 21 L Anion Gap 17 H BUN 80 H D Creatinine 3.47 H Estim Creat Clear Calc 13 Estimated GFR 13 L Glucose 239 H POC Capillary Glucose Calcium 8.5 Phosphorus 4.2 Magnesium 2.2 Total Bilirubin 0.4 AST 102 H ALT 534 H Alkaline Phosphatase 110 Total Protein 6.0 L Albumin 3.2 L Random Vancomycin 18.1 08/23/24 08/23/24 08/23/24 05:32 07:43 08:32 WBC RBC Hgb Hct MCV MCH MCHC RDW Plt Count MPV APTT 67.1 H Puncture Site ABG pH ABG pCO2 ABG pO2 ABG PO2/FiO2 Ratio ABG HCO3 ABG O2 Saturation ABG O2 Content ABG Base Excess A-a Gradient Oxyhemoglobin Carboxyhemoglobin Methemoglobin Reduced Hemoglobin Total Hemoglobin O2 Delivery Device O2 Liters/Min Minute Volume Vent Rate Vent Mode FiO2 Tidal Volume PEEP Peak Inspir Pressure Pressure Support Sodium Potassium Chloride Carbon Dioxide Anion Gap BUN Creatinine Estim Creat Clear Calc Estimated GFR Glucose POC Capillary Glucose 236 H 210 H Calcium Phosphorus Magnesium Total Bilirubin AST ALT Alkaline Phosphatase Total Protein Albumin Random Vancomycin Quality VTE Prophylaxis VTE prophylaxis: mechanical ordered and pharmacologic ordered
--- NOTE | 2024-08-23 10:37 | PCFNICU ---
ICU Rounding Note: Pt current nutrition is Nepro @ goal rate 40 ml/h ON HOLD. Nutrition recommendation: restart tube feeding as able. Recommend trickle feeding Nepro @ 10 ml/h until tolerance is established Last recorded weight is 91.1 kg. Bowel Motility: +1 BM 08/22/24 Labs Reviewed: Hgb 7.4, Hct 23.6, Alb 3.2, BUN 80, Cre 3.47, Glu 239 Meds Noted: Versed, Lantus, Novolog, Protonix, Reglan Skin: Deep tissue pressure BL buttocks, Unstageable L heel Additional Notes: Pt has a suspected ileus and is getting a Dobhoff placed to hopefully advance past the ileus. Has not been tolerating tube feedings for several days with residuals charted at 1030 ml, 400 ml, 224 ml. TPN could be used, but is not preferable because of poorer outcomes. Discussed with . Pt has Gianluca BID and Prosouce BID ordered, also on hold and may resume when able. Following daily in ICU rounds. Monitor intake, wt, labs, skin. Follow up in 5 days. .
[2024-08-23 11:37] LABS: Glucose Point of Care 198 mg/dl (65-105)
--- NOTE | 2024-08-23 11:52 | P.PNNP_ITS ---
Progress Note: A&P Assessment and Plan (1) Acute kidney injury: Code(s): N17.9 - Acute kidney failure, unspecified Status: Acute Assessment and Plan: * multifactorial etiology: * relative hypotension/hemodynamic instability * infection/early sepsis * IV diuresis/diuretics * contrast exposure (CTA chest on 08/15) * hypoxia * decline in urine output at this time * evaluation to date noted: * renal u/s without obstruction (but medical renal disease) * CPK mildly elevated (but not enough to affect kidney function) * urine electrolytes prerenal * moderate proteinuria * urine eosinophils negative * HD today - fluid removal as tolerated by hemodynamics * continue to follow trend of labs and UOP to assess for potential recovery (2) Chronic kidney disease, stage 3: Code(s): N18.30 - Chronic kidney disease, stage 3 unspecified Status: Chronic Assessment and Plan: * baseline creatinine runs ~ 1.1 - 1.6mg/dl from early 2022 (from review of [facility] records) * this causes her to fluctuate between CKD stage 3A and stage 3B * presumably secondary to diabetes, hypertension, recurrent UTIs, and age- related change (3) Septic shock: Code(s): A41.9 - Sepsis, unspecified organism; R65.21 - Severe sepsis with septic shock Status: Acute Assessment and Plan: * presumably due to pneumonia * on vasopressor therapy to maintain MAP * off stress dose steroids * on antibiotics * follow culture data * follow trend of hemodynamics (4) Acute respiratory failure with hypoxia: Code(s): J96.01 - Acute respiratory failure with hypoxia Status: Acute Assessment and Plan: * due to pneumonia and pulmonary edema/CHF * on full ventilator support * further imaging of chest noted * continue current therapy (bronchodilators, antibiotics...etc) * weaning as tolerated (5) Pneumonia: Code(s): J18.9 - Pneumonia, unspecified organism Status: Acute Assessment and Plan: * suggestive by admission * blood cultures x 4 negative to date * on antibiotics (6) Congestive heart failure: Code(s): I50.9 - Heart failure, unspecified Status: Acute Assessment and Plan: * imaging suggestive of pulmonary edema * Echo results (from 08/16) noted: * normal biventricular size and systolic function * no significant valvular abnormalities * was receiveing IV diuretics prior to transfer to ICU * this is on hold due to #1 and hypotension * fluid removal with dialysis as tolerated * Cardiology following (7) Non-ST elevation myocardial infarction (NSTEMI): Code(s): I21.4 - Non-ST elevation (NSTEMI) myocardial infarction Status: Acute Assessment and Plan: * elevated troponins noted * Cardiolgy folloiwing * known history of coronary disease status post stenting * suspect demand ischemia in setting of her current respiratory failure/pneumonia * s/p heparin drip x 48 hours * continue medical management (8) DVT (deep venous thrombosis): Code(s): I82.409 - Acute embolism and thrombosis of unspecified deep veins of unspecified lower extremity Status: Resolved Assessment and Plan: * as noted by venous dopplers: * bilateral [id number] deep venous thrombosis in the left and right posterior tibial veins * on heparin infusion (9) Right renal mass: Code(s): N28.89 - Other specified disorders of kidney and ureter Status: Acute Assessment and Plan: * suspicious for renal cell carcinoma * following with [facility] Urology * removal would require total right nepherectomy which would be high risk given patient's age * referred to radiation oncology for possible radiation therapy (prior to admission) (10) Type 2 diabetes mellitus: Code(s): E11.9 - Type 2 diabetes mellitus without complications Status: Chronic Assessment and Plan: * follow accu-cheks * 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 L Subjective Date/time seen: 08/23/24 11:52 Interval history: Follow-up for acute kidney injury/acute renal failure on chronic kidney disease. Chart reviewed since last seen -- just started dialysis treatment at the time of my visit (seen on HD at 11:42AM); remains intubated/sedated and on mechanical ventilation; continues to require vasopressor therapy to maintain BP/MAP; no other acute issues/events overnight or earlier this morning. Exam 2 Narrative: General: elderly female intubated/sedated and on mechanical ventilation Heart: normal S1 and S2; no rub Lungs: coarse breath sounds throughout Abdomen: soft, nontender, nondistended, positive bowel sounds Extremities: no cyanosis or clubbing; 1+ bilateral edema Skin: no nodules Objective Data Vital Signs Vital Signs: Vital Signs Temp Pulse Resp BP Pulse Ox O2 Del Method FiO2 08/23/24 11:41 69 97/54 L 08/23/24 11:30 30 08/23/24 11:30 98.1 F 70 25 H 92/51 L 08/23/24 10:00 75 24 H 130/76 98 08/23/24 08:25 73 100 Mechanical Ventilation 08/23/24 08:00 30 08/23/24 08:00 70 08/23/24 08:00 95 Mechanical Ventilation 08/23/24 08:00 70 26 H 97/53 L 96 08/23/24 06:39 71 24 H 08/23/24 06:38 71 94/52 L 08/23/24 06:38 71 94/52 L 08/23/24 06:36 71 26 H 08/23/24 06:35 71 08/23/24 06:00 71 25 H 94/52 L 96 08/23/24 05:34 71 102/52 L 08/23/24 05:15 73 98 Mechanical Ventilation 08/23/24 04:00 76 24 H 08/23/24 04:00 76 99/57 L 08/23/24 04:00 76 99/57 L 08/23/24 04:00 76 24 H 08/23/24 04:00 86 08/23/24 04:00 98 Mechanical Ventilation 08/23/24 04:00 98.6 F 76 24 H 99/57 L 98 08/23/24 04:00 30 08/23/24 02:30 75 97 Mechanical Ventilation 08/23/24 02:00 77 26 H 08/23/24 02:00 77 91/51 L 08/23/24 02:00 77 91/51 L 08/23/24 02:00 77 26 H 08/23/24 02:00 77 26 H 91/51 L 99 08/23/24 02:00 77 08/23/24 00:50 75 109/52 L 08/23/24 00:40 95 Mechanical Ventilation 08/23/24 00:00 99.6 F 74 25 H 103/51 L 96 08/23/24 00:00 30 08/23/24 00:00 75 08/23/24 00:00 74 25 H 08/23/24 00:00 74 103/51 L 08/23/24 00:00 74 103/51 L 08/23/24 00:00 74 25 H 08/22/24 23:01 79 94 Mechanical Ventilation 30 08/22/24 22:00 89 24 H 08/22/24 22:00 89 107/58 L 08/22/24 22:00 89 107/58 L 08/22/24 22:00 89 24 H 08/22/24 22:00 99.9 F H 89 24 H 107/58 L 97 08/22/24 22:00 89 08/22/24 20:59 69 24 H 08/22/24 20:45 99 Mechanical Ventilation 30 08/22/24 20:02 71 24 H 08/22/24 20:00 71 25 H 116/57 L 99 08/22/24 20:00 30 08/22/24 20:00 73 08/22/24 20:00 69 116/57 L 08/22/24 20:00 69 116/57 L 08/22/24 20:00 69 24 H 08/22/24 19:59 71 99 Mechanical Ventilation 30 08/22/24 19:54 67 26 H Intake/Output Intake/Output: Intake & Output 08/20/24 08/21/24 08/22/24 08/23/24 23:59 23:59 23:59 23:59 Intake Total 2696.1 1602.8 1384.9 717.7 Output Total 2685 2381 800 2300 Balance 11.1 -778.2 584.9 -1582.3 Meds/Results Medications: Active Medications Generic Name Dose Route Start Last Admin Trade Name Freq PRN Reason Stop Dose Admin Acetaminophen 650 mg 08/18/24 21:48 08/22/24 12:56 Acetaminophen Elixir 325 Mg/10.15 Ml Udc PO 650 mg Q4H PRN Administration Mild Pain (1-3) or Fever Dextrose 12.5 gm 08/18/24 05:53 Dextrose 50% 25 Gm/50 Ml Syringe IV PUSH PRN PRN Hypoglycemia Protocol Glucagon 1 mg 08/18/24 05:53 Glucagon For Inj 1 Mg Vial IM PRN PRN Hypoglycemia Protocol Glucose 15 gm 08/18/24 05:53 Glucose Oral Gel 15 Gm Of Glucse In 37.5 Gm Tube PO PRN PRN Hypoglycemia Protocol Heparin Sodium (Porcine) 5,500 units 08/18/24 15:05 08/18/24 23:23 Heparin Sodium 5,000 Units/Ml Vial IV PUSH 5,500 units PRN PRN Administration aPTT less than 55 seconds Heparin Sodium (Porcine) 3,000 units 08/18/24 15:05 08/23/24 10:58 Heparin Sodium 5,000 Units/Ml Vial IV PUSH 3,000 units PRN PRN Administration aPTT 55 - 70 seconds Midazolam HCl 100 mg in 100 mls @ 0 mls/hr 08/18/24 00:55 08/23/24 12:02 Versed 100 Mg/Ns 100 Ml IV CONT Infused .Q0M TEMI Titration Protocol Dextrose 1,000 mls @ 100 mls/hr 08/18/24 05:53 Dextrose 5% 1,000 Ml IVPB PRN PRN Hypoglycemia Protocol Heparin Sodium/Dextrose 25,000 units in 250 mls @ 23 mls/hr 08/18/24 15:05 08/23/24 14:20 Heparin Sodium/D5w 100 Units/Ml IV CONT 2,300 units/hr .[id number] TEMI 23 mls/hr Administration Protocol 2,300 UNITS/HR Norepinephrine Bitartrate 8 mg in 250 mls @ 5.625 mls/hr 08/19/24 12:30 08/23/24 12:01 Levophed 8 Mg/D5w 250 Ml IV CONT 3 mcg/min .Q24H TEMI 5.63 mls/hr Titration Protocol 3 MCG/MIN Cefepime HCl 1 gm in 50 mls @ 100 mls/hr 08/20/24 21:00 08/22/24 22:20 Maxipime 1 Gm/Ns 50 Ml IVPB Infused QHS TEMI Infusion Albumin Human 50 mls @ 999 mls/hr 08/21/24 06:28 Albutein IVPB 09/20/24 06:27 Q10M PRN HYPOTENSION Vasopressin 100 units/ 100 mls @ 0 mls/hr 08/21/24 23:35 08/23/24 12:02 Dextrose IV CONT 0 units/min .Q0M TEMI 0 mls/hr Titration Protocol Insulin Aspart 4 - 8 units 08/20/24 21:05 08/23/24 11:37 Insulin Aspart (*Bkc) 100 Units/Ml SUB-Q Not Given Q4HR TEMI Protocol Insulin Glargine 20 units 08/21/24 09:00 08/23/24 08:49 Insulin Glargine (*Bkc) 100 Units/Ml SUB-Q 20 units QAM TEMI Administration Ipratropium [place] 0.5 mg 08/20/24 07:40 08/22/24 19:54 Ipratropium Br 0.02% Inh Soln 0.5 Mg/2.5 Ml Vial INHALATION 0.5 mg Q6HRT PRN Administration Wheezing Levalbuterol HCl 1.25 mg 08/20/24 07:40 08/22/24 19:54 Levalbuterol Neb 1.25 Mg/3 Ml INHALATION 1.25 mg Q6HRT PRN Administration Wheezing Metoclopramide HCl 10 mg 08/23/24 08:00 08/23/24 17:20 Metoclopramide Hcl 10 Mg/10 Ml Soln Udc PO 10 mg Q6H TEMI Administration Midazolam HCl 2 mg 08/19/24 02:59 08/19/24 05:16 Midazolam Hcl (*Crx) 2 Mg/2 Ml Vial IV PUSH 2 mg Q1HR PRN Administration Agitation Multi-Ingred Cream/Lotion/Oil/Oint 1 applic 08/18/24 09:00 08/23/24 08:48 Mineral Oil/White Petrolatum Ointment EACH EYE 1 applic Q12HR TEMI Administration Mupirocin 1 applic 08/15/24 21:00 08/23/24 08:50 Mupirocin 2% Oint 22 Gm Tube EACH NARE 1 applic Q12HR TEMI Administration Pantoprazole Sodium 40 mg 08/19/24 09:00 08/23/24 08:48 Pantoprazole Sodium Iv 40 Mg Vial IV PUSH 40 mg QAM TEMI Administration Polyethylene Glycol 17 gm 08/15/24 22:20 08/22/24 08:16 Polyethylene Glycol 3350 17 Gm Powd.Pack PO 17 gm DAILY PRN Administration constipation Sodium Chloride 10 ml 08/19/24 22:00 08/23/24 15:38 Central Line Flush IV PUSH 10 ml Q8HR TEMI Administration Sodium Chloride 20 ml 08/19/24 18:43 Central Line Flush IV PUSH PRN PRN after blood draws Vancomycin HCl 1 each 08/20/24 09:39 Vancomycin For Hemodialysis IVPB PRN PRN Vancomycin Protocol Radiology Results: ITS Impressions Chest CTA 08/15/24 11:11 IMPRESSION: No pulmonary embolus. No thoracic aortic dissection. Right upper lobe infiltrate with patchy bilateral airspace disease, likely inflammatory/congestive rather than infectious. Small bilateral pleural effusions with adjacent atelectasis. Venous Doppler Study 08/18/24 14:42 IMPRESSION: 1. Bilateral [id number] deep venous thrombosis in the left and right posterior tibial veins. Findings were discussed with the ICU nurse Carlos Herrera at 2:45 PM. Renal Ultrasound 08/19/24 14:10 IMPRESSION: No hydronephrosis or renal calculi. Findings suggesting medical renal disease. Findings within the upper pole of the right kidney consistent with patient's history, as detailed above. Chest X-Ray 08/23/24 06:15 Impression: [id number] bilateral pleural effusions with mild pulmonary edema pattern. Support tubes, as above. Chest/Abdomen/Pelvis CT 08/23/24 09:58 IMPRESSION: CHEST: 1. Bilateral pneumonia which is slightly decreased compared to previous study. Bilateral pleural effusion more on the right side. ABDOMEN/PELVIS: 1. No evidence of appendicitis, diverticulitis or intestinal obstruction. 2. Bilateral tiny kidney stones. 3. Hepatomegaly. 4. No evidence of ileus seen. ADDENDUM: 08/23/24 1042 Possibility of mass in the right kidney upper pole cannot be excluded. Abdomen X-Ray 08/23/24 16:53 IMPRESSION: 1. Dobbhoff type nasoenteric feeding tube with distal tip projecting over the gastric fundus. Labs Labs: Laboratory Tests 08/23/24 05:27 08/23/24 05:27 Calcium 8.5 Phosphorus 4.2 Magnesium 2.2 Total Bilirubin 0.4 AST 102 H ALT 534 H Alkaline Phosphatase 110 Total Protein 6.0 L Albumin 3.2 L Random Vancomycin 18.1 Microbiology 08/21/24 09:22 Sputum Sputum Culture - Preliminary Staphylococcus aureus
[2024-08-23] MEDS: EPOETIN ALFA-EPBX 10,000 UNITS/ML VIAL 10000 UNITS IV PUSH (12:47)
--- NOTE | 2024-08-23 13:43 | PM.IMPN ---
Progress Note: A&P Assessment and Plan (1) Acute respiratory failure with hypoxia: Code(s): J96.01 - Acute respiratory failure with hypoxia Status: Acute Assessment and Plan: Acute Respiratory failure secondary to combination of pneumonia and congestive heart failure Patient now intubated and on mechanical ventilation. Repeat CT chest showed worsening pneumonia Continue vancomycin cefepime azithromycin sedation per Electrical Superintendent (2) Congestive heart failure: Code(s): I50.9 - Heart failure, unspecified Status: Acute Assessment and Plan: See above (3) Non-ST elevation myocardial infarction (NSTEMI): Code(s): I21.4 - Non-ST elevation (NSTEMI) myocardial infarction Status: Acute Assessment and Plan: History of coronary disease status post PCI in the past now presented with elevated troponin. Cardiology following Currently on aspirin Other medications on hold due to low blood pressure Statin Hold was slightly elevated LFTs. No plan for cardiac catheterization at this time. (4) Coronary artery disease: Code(s): I25.10 - Atherosclerotic heart disease of [place] coronary artery without angina pectoris Status: Acute Assessment and Plan: See above (5) Type 2 diabetes mellitus: Code(s): E11.9 - Type 2 diabetes mellitus without complications Status: Chronic Assessment and Plan: Sliding scale insulin Continue Lantus Off steroid (6) Renal failure: Code(s): N19 - Unspecified kidney failure Status: Acute Assessment and Plan: Patient presented with creatinine of 1.5. Baseline creatinine unknown She has suprapubic catheter. As per son patient has had a renal tumor which was being monitored and plan was to start radiation therapy by her urology CT scan showed Subtle 2.5 cm mass at the upper pole of the right kidney consistent with provided history of renal tumor. Calcification is at the bilateral kidneys which appear linear and likely atherosclerotic although could not exclude nonobstructing nephrolithiasis. No hydronephrosis in either kidney. now on dialysis (7) Pneumonia: Code(s): J18.9 - Pneumonia, unspecified organism Status: Acute Assessment and Plan: See above (8) Kidney mass: Code(s): N28.89 - Other specified disorders of kidney and ureter Status: Acute Assessment and Plan: Patient's son reports history of kidney mass which is being monitor as it was too big to be removed without total nephrectomy. He states that patient was supposed to get radiation therapy in a month or so before she fractured her ankle. CT scan shows 2.5 cm renal mass on the right side and no hydronephrosis. No intervention at this time (9) DVT (deep venous thrombosis): Code(s): I82.409 - Acute embolism and thrombosis of unspecified deep veins of unspecified lower extremity Status: Acute Assessment and Plan: Bilateral venous Dopplers obtained due to swelling in the legs. Ultrasound showed Bilateral [id number] deep venous thrombosis in the left and right posterior tibial veins. Findings were discussed with the ICU nurse Carlos Herrera at 2:45 PM. On heparin infusion (10) Septic shock: Code(s): A41.9 - Sepsis, unspecified organism; R65.21 - Severe sepsis with septic shock Status: Acute Assessment and Plan: Continue Levophed and vasopressin (11) Ileus: Code(s): K56.7 - Ileus, unspecified Status: Acute Assessment and Plan: Patient has significant output from her OG tube. She has not been tolerating tube feeds for last 2 days. She is on Reglan Bowel sounds are decreased. KUB does not show anything significant abnormal I have requested IR for a post pyloric tube insertion and also obtain a CT abdomen pelvis today (12) Atrial fibrillation with RVR: Code(s): I48.91 - Unspecified atrial fibrillation Status: Acute Assessment and Plan: went into AIfb RVR and was started on Amiodarone Now discontinued due to sinus dominga She is already on heparin infusion cardiology following Plan DVT prophylaxis -Lovenox Stress ulcer prophylaxis - PPI Nutrition -tube feeds on hold as patient is not tolerating Code Status - Full Code Subjective Date/time seen: 08/23/24 13:43 Interval history: Still intubated and sedated Review of Systems Review of Systems: 12 systems were reviewed and are negative except for as per HPI. ROS unobtainable: Yes unobtainable due to endotracheal tube, unobtainable due to medical condition and unobtainable due to mental status Exam Narrative: General: Pt is sedated, intubated and on mechanical ventilation Lungs/Chest: Trachea central Coarse BS B/L, No crackles or wheezing. Cardiac: RRR. Normal S1 S2. No murmurs Circulation: Feet are cold Abdomen: Significant decrease bowel sounds. Obese. Soft. NT. ND. Extremities: Bilateral pitting edema : Butt in place Neurologic: Off sedation infusion was still sedated, PERRL Objective Data Vital Signs Vital Signs: Vital Signs - 24 hr 08/22/24 13:56 08/22/24 14:00 08/22/24 14:00 Temperature 99.9 F H Pulse Rate 65 67 Respiratory Rate 22 H 22 H Blood Pressure Pulse Oximetry Oxygen Delivery Fraction of Inspired Oxygen 08/22/24 14:00 08/22/24 14:00 08/22/24 14:27 Temperature 99.9 F H Pulse Rate 68 67 67 Respiratory Rate 26 H Blood Pressure 99/53 L Pulse Oximetry 94 94 Oxygen Delivery Mechanical Ventilation Fraction of Inspired Oxygen 30 08/22/24 15:23 08/22/24 15:25 08/22/24 15:27 Temperature Pulse Rate 65 65 66 Respiratory Rate Blood Pressure 102/53 L 102/53 L 102/53 L Pulse Oximetry Oxygen Delivery Fraction of Inspired Oxygen 08/22/24 15:27 08/22/24 16:00 08/22/24 16:00 Temperature 100.1 F H Pulse Rate 66 67 Respiratory Rate 27 H Blood Pressure 102/53 L 104/57 L Pulse Oximetry 94 Oxygen Delivery Fraction of Inspired Oxygen 30 08/22/24 16:00 08/22/24 16:00 08/22/24 16:00 Temperature Pulse Rate 68 68 68 Respiratory Rate 26 H Blood Pressure 97/50 L 97/50 L Pulse Oximetry Oxygen Delivery Fraction of Inspired Oxygen 08/22/24 16:00 08/22/24 16:00 08/22/24 16:00 Temperature Pulse Rate 68 67 Respiratory Rate 26 H Blood Pressure Pulse Oximetry 93 Oxygen Delivery Mechanical Ventilation Fraction of Inspired Oxygen 30 08/22/24 16:52 08/22/24 18:00 08/22/24 18:00 Temperature Pulse Rate 67 74 78 Respiratory Rate 22 H Blood Pressure 94/48 L Pulse Oximetry 95 Oxygen Delivery Mechanical Ventilation Fraction of Inspired Oxygen 30 08/22/24 18:00 08/22/24 18:00 08/22/24 18:00 Temperature 99.7 F H Pulse Rate 78 78 74 Respiratory Rate 22 H 22 H Blood Pressure 94/48 L 94/48 L Pulse Oximetry 93 Oxygen Delivery Fraction of Inspired Oxygen 08/22/24 18:00 08/22/24 19:54 08/22/24 19:59 Temperature Pulse Rate 68 67 71 Respiratory Rate 26 H Blood Pressure Pulse Oximetry 99 Oxygen Delivery Mechanical Ventilation Fraction of Inspired Oxygen 30 08/22/24 20:00 08/22/24 20:00 08/22/24 20:00 Temperature Pulse Rate 69 69 69 Respiratory Rate 24 H Blood Pressure 116/57 L 116/57 L Pulse Oximetry Oxygen Delivery Fraction of Inspired Oxygen 08/22/24 20:00 08/22/24 20:00 08/22/24 20:00 Temperature Pulse Rate 73 71 Respiratory Rate 25 H Blood Pressure 116/57 L Pulse Oximetry 99 Oxygen Delivery Fraction of Inspired Oxygen 30 08/22/24 20:02 08/22/24 20:45 08/22/24 20:59 Temperature Pulse Rate 71 69 Respiratory Rate 24 H 24 H Blood Pressure Pulse Oximetry 99 Oxygen Delivery Mechanical Ventilation Fraction of Inspired Oxygen 30 08/22/24 22:00 08/22/24 22:00 08/22/24 22:00 Temperature 99.9 F H Pulse Rate 89 89 89 Respiratory Rate 24 H 24 H Blood Pressure 107/58 L Pulse Oximetry 97 Oxygen Delivery Fraction of Inspired Oxygen 08/22/24 22:00 08/22/24 22:00 08/22/24 22:00 Temperature Pulse Rate 89 89 89 Respiratory Rate 24 H Blood Pressure 107/58 L 107/58 L Pulse Oximetry Oxygen Delivery Fraction of Inspired Oxygen 08/22/24 23:01 08/23/24 00:00 08/23/24 00:00 Temperature Pulse Rate 79 74 74 Respiratory Rate 25 H Blood Pressure 103/51 L Pulse Oximetry 94 Oxygen Delivery Mechanical Ventilation Fraction of Inspired Oxygen 30 08/23/24 00:00 08/23/24 00:00 08/23/24 00:00 Temperature Pulse Rate 74 74 75 Respiratory Rate 25 H Blood Pressure 103/51 L Pulse Oximetry Oxygen Delivery Fraction of Inspired Oxygen 08/23/24 00:00 08/23/24 00:00 08/23/24 00:40 Temperature 99.6 F Pulse Rate 74 Respiratory Rate 25 H Blood Pressure 103/51 L Pulse Oximetry 96 95 Oxygen Delivery Mechanical Ventilation Fraction of Inspired Oxygen 30 30 08/23/24 00:50 08/23/24 02:00 08/23/24 02:00 Temperature Pulse Rate 75 77 77 Respiratory Rate 26 H Blood Pressure 109/52 L 91/51 L Pulse Oximetry 99 Oxygen Delivery Fraction of Inspired Oxygen 08/23/24 02:00 08/23/24 02:00 08/23/24 02:00 Temperature Pulse Rate 77 77 77 Respiratory Rate 26 H Blood Pressure 91/51 L 91/51 L Pulse Oximetry Oxygen Delivery Fraction of Inspired Oxygen 08/23/24 02:00 08/23/24 02:30 08/23/24 04:00 Temperature Pulse Rate 77 75 Respiratory Rate 26 H Blood Pressure Pulse Oximetry 97 Oxygen Delivery Mechanical Ventilation Fraction of Inspired Oxygen 30 30 08/23/24 04:00 08/23/24 04:00 08/23/24 04:00 Temperature 98.6 F Pulse Rate 76 86 Respiratory Rate 24 H Blood Pressure 99/57 L Pulse Oximetry 98 98 Oxygen Delivery Mechanical Ventilation Fraction of Inspired Oxygen 30 08/23/24 04:00 08/23/24 04:00 08/23/24 04:00 Temperature Pulse Rate 76 76 76 Respiratory Rate 24 H Blood Pressure 99/57 L 99/57 L Pulse Oximetry Oxygen Delivery Fraction of Inspired Oxygen 08/23/24 04:00 08/23/24 05:15 08/23/24 05:34 Temperature Pulse Rate 76 73 71 Respiratory Rate 24 H Blood Pressure 102/52 L Pulse Oximetry 98 Oxygen Delivery Mechanical Ventilation Fraction of Inspired Oxygen 30 08/23/24 06:00 08/23/24 06:35 08/23/24 06:36 Temperature Pulse Rate 71 71 71 Respiratory Rate 25 H 26 H Blood Pressure 94/52 L Pulse Oximetry 96 Oxygen Delivery Fraction of Inspired Oxygen 08/23/24 06:38 08/23/24 06:38 08/23/24 06:39 Temperature Pulse Rate 71 71 71 Respiratory Rate 24 H Blood Pressure 94/52 L 94/52 L Pulse Oximetry Oxygen Delivery Fraction of Inspired Oxygen 08/23/24 08:00 08/23/24 08:00 08/23/24 08:00 Temperature Pulse Rate 70 70 Respiratory Rate 26 H Blood Pressure 97/53 L Pulse Oximetry 96 95 Oxygen Delivery Mechanical Ventilation Fraction of Inspired Oxygen 30 08/23/24 08:00 08/23/24 08:25 08/23/24 10:00 Temperature Pulse Rate 73 75 Respiratory Rate 24 H Blood Pressure 130/76 Pulse Oximetry 100 98 Oxygen Delivery Mechanical Ventilation Fraction of Inspired Oxygen 30 30 08/23/24 11:30 08/23/24 11:30 08/23/24 11:41 Temperature 98.1 F Pulse Rate 70 69 Respiratory Rate 25 H Blood Pressure 92/51 L 97/54 L Pulse Oximetry Oxygen Delivery Fraction of Inspired Oxygen 30 08/23/24 12:00 08/23/24 12:00 08/23/24 12:00 Temperature Pulse Rate 69 69 Respiratory Rate 28 H Blood Pressure 95/51 L Pulse Oximetry 95 Oxygen Delivery Fraction of Inspired Oxygen 30 08/23/24 12:00 08/23/24 12:00 08/23/24 12:01 Temperature Pulse Rate 68 68 Respiratory Rate Blood Pressure 95/51 L 95/51 L Pulse Oximetry 96 Oxygen Delivery Mechanical Ventilation Fraction of Inspired Oxygen 30 08/23/24 12:02 08/23/24 12:02 08/23/24 12:03 Temperature Pulse Rate 68 68 68 Respiratory Rate 28 H 28 H Blood Pressure 95/51 L Pulse Oximetry Oxygen Delivery Fraction of Inspired Oxygen 08/23/24 12:15 08/23/24 12:18 08/23/24 12:30 Temperature Pulse Rate 70 73 69 Respiratory Rate Blood Pressure 103/55 L 111/57 L Pulse Oximetry 98 Oxygen Delivery Mechanical Ventilation Fraction of Inspired Oxygen 30 08/23/24 12:45 08/23/24 13:00 08/23/24 13:15 Temperature Pulse Rate 67 67 66 Respiratory Rate Blood Pressure 109/59 L 111/57 L 110/55 L Pulse Oximetry Oxygen Delivery Fraction of Inspired Oxygen 08/23/24 13:30 Temperature Pulse Rate 67 Respiratory Rate Blood Pressure 110/57 L Pulse Oximetry Oxygen Delivery Fraction of Inspired Oxygen Intake/Output Intake/Output: Intake & Output 08/20/24 08/21/24 08/22/24 08/23/24 23:59 23:59 23:59 23:59 Intake Total 2696.1 1602.8 1384.9 376.9 Output Total 2685 2381 800 300 Balance 11.1 -778.2 584.9 76.9 Meds/Results Medications: Active Medications Generic Name Dose Route Start Last Admin Trade Name Freq PRN Reason Stop Dose Admin Acetaminophen 650 mg 08/18/24 21:48 08/22/24 12:56 Acetaminophen Elixir 325 Mg/10.15 Ml Udc PO 650 mg Q4H PRN Administration Mild Pain (1-3) or Fever Dextrose 12.5 gm 08/18/24 05:53 Dextrose 50% 25 Gm/50 Ml Syringe IV PUSH PRN PRN Hypoglycemia Protocol Epoetin Oliver-epbx 10,000 units 08/23/24 18:26 08/23/24 12:47 Epoetin Oliver-Epbx 10,000 Units/Ml Vial IV PUSH 08/23/24 18:27 10,000 units ONCE ONE Administration Glucagon 1 mg 08/18/24 05:53 Glucagon For Inj 1 Mg Vial IM PRN PRN Hypoglycemia Protocol Glucose 15 gm 08/18/24 05:53 Glucose Oral Gel 15 Gm Of Glucse In 37.5 Gm Tube PO PRN PRN Hypoglycemia Protocol Heparin Sodium (Porcine) 5,500 units 08/18/24 15:05 08/18/24 23:23 Heparin Sodium 5,000 Units/Ml Vial IV PUSH 5,500 units PRN PRN Administration aPTT less than 55 seconds Heparin Sodium (Porcine) 3,000 units 08/18/24 15:05 08/23/24 10:58 Heparin Sodium 5,000 Units/Ml Vial IV PUSH 3,000 units PRN PRN Administration aPTT 55 - 70 seconds Midazolam HCl 100 mg in 100 mls @ 0 mls/hr 08/18/24 00:55 08/23/24 12:02 Versed 100 Mg/Ns 100 Ml IV CONT Infused .Q0M TEMI Titration Protocol Dextrose 1,000 mls @ 100 mls/hr 08/18/24 05:53 Dextrose 5% 1,000 Ml IVPB PRN PRN Hypoglycemia Protocol Heparin Sodium/Dextrose 25,000 units in 250 mls @ 23 mls/hr 08/18/24 15:05 08/23/24 09:45 Heparin Sodium/D5w 100 Units/Ml IV CONT 2,300 units/hr .[id number] TEMI 23 mls/hr Titration Protocol 2,300 UNITS/HR Norepinephrine Bitartrate 8 mg in 250 mls @ 5.625 mls/hr 08/19/24 12:30 08/23/24 12:01 Levophed 8 Mg/D5w 250 Ml IV CONT 3 mcg/min .Q24H TEMI 5.63 mls/hr Titration Protocol 3 MCG/MIN Cefepime HCl 1 gm in 50 mls @ 100 mls/hr 08/20/24 21:00 08/22/24 22:20 Maxipime 1 Gm/Ns 50 Ml IVPB Infused QHS TEMI Infusion Albumin Human 50 mls @ 999 mls/hr 08/21/24 06:28 Albutein IVPB 09/20/24 06:27 Q10M PRN HYPOTENSION Vasopressin 100 units/ 100 mls @ 0 mls/hr 08/21/24 23:35 08/23/24 12:02 Dextrose IV CONT 0 units/min .Q0M TEMI 0 mls/hr Titration Protocol Vancomycin HCl 750 mg in 250 mls @ 250 mls/hr 08/23/24 15:00 Vancomycin 750 Mg/Ns 250 Ml IVPB 08/23/24 15:59 ONCE ONE Insulin Aspart 4 - 8 units 08/20/24 21:05 08/23/24 11:37 Insulin Aspart (*Bkc) 100 Units/Ml SUB-Q Not Given Q4HR [facility] Protocol Insulin Glargine 20 units 08/21/24 09:00 08/23/24 08:49 Insulin Glargine (*Bkc) 100 Units/Ml SUB-Q 20 units QAM TEMI Administration Ipratropium Cogswell 0.5 mg 08/20/24 07:40 08/22/24 19:54 Ipratropium Br 0.02% Inh Soln 0.5 Mg/2.5 Ml Vial INHALATION 0.5 mg Q6HRT PRN Administration Wheezing Levalbuterol HCl 1.25 mg 08/20/24 07:40 08/22/24 19:54 Levalbuterol Neb 1.25 Mg/3 Ml INHALATION 1.25 mg Q6HRT PRN Administration Wheezing Metoclopramide HCl 10 mg 08/23/24 08:00 08/23/24 08:48 Metoclopramide Hcl 10 Mg/10 Ml Soln Udc PO 10 mg Q6H TEMI Administration Midazolam HCl 2 mg 08/19/24 02:59 08/19/24 05:16 Midazolam Hcl (*Crx) 2 Mg/2 Ml Vial IV PUSH 2 mg Q1HR PRN Administration Agitation Multi-Ingred Cream/Lotion/Oil/Oint 1 applic 08/18/24 09:00 08/23/24 08:48 Mineral Oil/White Petrolatum Ointment EACH EYE 1 applic Q12HR TEMI Administration Mupirocin 1 applic 08/15/24 21:00 08/23/24 08:50 Mupirocin 2% Oint 22 Gm Tube EACH NARE 1 applic Q12HR TEMI Administration Pantoprazole Sodium 40 mg 08/19/24 09:00 08/23/24 08:48 Pantoprazole Sodium Iv 40 Mg Vial IV PUSH 40 mg QAM TEMI Administration Polyethylene Glycol 17 gm 08/15/24 22:20 08/22/24 08:16 Polyethylene Glycol 3350 17 Gm Powd.Pack PO 17 gm DAILY PRN Administration constipation Sodium Chloride 10 ml 08/19/24 22:00 08/23/24 05:33 Central Line Flush IV PUSH 10 ml Q8HR TEMI Administration Sodium Chloride 20 ml 08/19/24 18:43 Central Line Flush IV PUSH PRN PRN after blood draws Vancomycin HCl 1 each 08/20/24 09:39 Vancomycin For Hemodialysis IVPB PRN PRN Vancomycin Protocol Radiology Results: ITS Impressions Chest CTA 08/15/24 11:11 IMPRESSION: No pulmonary embolus. No thoracic aortic dissection. Right upper lobe infiltrate with patchy bilateral airspace disease, likely inflammatory/congestive rather than infectious. Small bilateral pleural effusions with adjacent atelectasis. Venous Doppler Study 08/18/24 14:42 IMPRESSION: 1. Bilateral [id number]-[id number] deep venous thrombosis in the left and right posterior tibial veins. Findings were discussed with the ICU nurse Carlos Herrera at 2:45 PM. Renal Ultrasound 08/19/24 14:10 IMPRESSION: No hydronephrosis or renal calculi. Findings suggesting medical renal disease. Findings within the upper pole of the right kidney consistent with patient's history, as detailed above. Abdomen X-Ray 08/21/24 08:25 IMPRESSION: 1. Nonspecific paucity of bowel gas with no dilated gas-filled loops of bowel to suggest obstruction. Chest X-Ray 08/23/24 06:15 Impression: Uyzil-gm-[id number] bilateral pleural effusions with mild pulmonary edema pattern. Support tubes, as above. Chest/Abdomen/Pelvis CT 08/23/24 09:58 IMPRESSION: CHEST: 1. Bilateral pneumonia which is slightly decreased compared to previous study. Bilateral pleural effusion more on the right side. ABDOMEN/PELVIS: 1. No evidence of appendicitis, diverticulitis or intestinal obstruction. 2. Bilateral tiny kidney stones. 3. Hepatomegaly. 4. No evidence of ileus seen. ADDENDUM: 08/23/24 1042 Possibility of mass in the right kidney upper pole cannot be excluded. Labs Labs: Laboratory Results - last 24 hr 08/22/24 08/22/24 08/22/24 17:15 18:53 20:35 WBC RBC Hgb Hct MCV MCH MCHC RDW Plt Count MPV APTT 66.2 H Puncture Site ABG pH ABG pCO2 ABG pO2 ABG PO2/FiO2 Ratio ABG HCO3 ABG O2 Saturation ABG O2 Content ABG Base Excess A-a Gradient Oxyhemoglobin Carboxyhemoglobin Methemoglobin Reduced Hemoglobin Total Hemoglobin O2 Delivery Device O2 Liters/Min Minute Volume Vent Rate Vent Mode FiO2 Tidal Volume PEEP Peak Inspir Pressure Pressure Support Sodium Potassium Chloride Carbon Dioxide Anion Gap BUN Creatinine Estim Creat Clear Calc Estimated GFR Glucose POC Capillary Glucose 299 H 277 H Calcium Phosphorus Magnesium Total Bilirubin AST ALT Alkaline Phosphatase Total Protein Albumin Random Vancomycin 08/23/24 08/23/24 08/23/24 00:33 01:37 05:15 WBC RBC Hgb Hct MCV MCH MCHC RDW Plt Count MPV APTT 65.0 H Puncture Site Right radial ABG pH 7.449 ABG pCO2 32.2 L ABG pO2 70.1 L ABG PO2/FiO2 Ratio 2.34 ABG HCO3 21.8 L ABG O2 Saturation 95.0 ABG O2 Content 10.9 L ABG Base Excess -1.8 A-a Gradient 106.0 Oxyhemoglobin 93.4 Carboxyhemoglobin 0.6 Methemoglobin 0.0 Reduced Hemoglobin 6.0 H Total Hemoglobin 8.2 L O2 Delivery Device Ventilator O2 Liters/Min Not Reportable Minute Volume Not Reportable Vent Rate 22 Vent Mode Cmv FiO2 30 Tidal Volume 380 PEEP 8 Peak Inspir Pressure Not Reportable Pressure Support Not Reportable Sodium Potassium Chloride Carbon Dioxide Anion Gap BUN Creatinine Estim Creat Clear Calc Estimated GFR Glucose POC Capillary Glucose 288 H Calcium Phosphorus Magnesium Total Bilirubin AST ALT Alkaline Phosphatase Total Protein Albumin Random Vancomycin 08/23/24 08/23/24 08/23/24 05:27 05:32 07:43 WBC 13.2 H RBC 2.76 L Hgb 7.4 L Hct 23.6 L MCV 85.5 MCH 26.8 MCHC 31.4 L RDW 18.1 H Plt Count 165 MPV 11.9 H APTT Puncture Site ABG pH ABG pCO2 ABG pO2 ABG PO2/FiO2 Ratio ABG HCO3 ABG O2 Saturation ABG O2 Content ABG Base Excess A-a Gradient Oxyhemoglobin Carboxyhemoglobin Methemoglobin Reduced Hemoglobin Total Hemoglobin O2 Delivery Device O2 Liters/Min Minute Volume Vent Rate Vent Mode FiO2 Tidal Volume PEEP Peak Inspir Pressure Pressure Support Sodium 134 L Potassium 3.9 Chloride 96 L Carbon Dioxide 21 L Anion Gap 17 H BUN 80 H D Creatinine 3.47 H Estim Creat Clear Calc 13 Estimated GFR 13 L Glucose 239 H POC Capillary Glucose 236 H 210 H Calcium 8.5 Phosphorus 4.2 Magnesium 2.2 Total Bilirubin 0.4 AST 102 H ALT 534 H Alkaline Phosphatase 110 Total Protein 6.0 L Albumin 3.2 L Random Vancomycin 18.1 08/23/24 08/23/24 08:32 11:34 WBC RBC Hgb Hct MCV MCH MCHC RDW Plt Count MPV APTT 67.1 H Puncture Site ABG pH ABG pCO2 ABG pO2 ABG PO2/FiO2 Ratio ABG HCO3 ABG O2 Saturation ABG O2 Content ABG Base Excess A-a Gradient Oxyhemoglobin Carboxyhemoglobin Methemoglobin Reduced Hemoglobin Total Hemoglobin O2 Delivery Device O2 Liters/Min Minute Volume Vent Rate Vent Mode FiO2 Tidal Volume PEEP Peak Inspir Pressure Pressure Support Sodium Potassium Chloride Carbon Dioxide Anion Gap BUN Creatinine Estim Creat Clear Calc Estimated GFR Glucose POC Capillary Glucose 198 H Calcium Phosphorus Magnesium Total Bilirubin AST ALT Alkaline Phosphatase Total Protein Albumin Random Vancomycin Quality VTE Prophylaxis VTE prophylaxis: mechanical ordered and pharmacologic ordered
[2024-08-23] MEDS: HEPARIN SOD/D5W 100 UNITS/ML 25,000 UNITS/250 ML BAG 23 UNITS IV CONT (14:20)
[2024-08-23] MEDS: VANCOMYCIN 750 MG/NS 250 ML 750 MG/250 ML BAG 250 MG IVPB (15:22)
[2024-08-23 16:57] LABS: Glucose Point of Care 147 mg/dl (65-105)
[2024-08-23 19:24] LABS: Partial Thromboplastin Time 79.3 Seconds (22.3-36.8)
[2024-08-23 21:27] LABS: Glucose Point of Care 196 mg/dl (65-105)
[2024-08-24] VITALS (25 sets, daily range): BP systolic 91–120; BP diastolic 46–95; PULSE 70–91; RESP 20–42; TEMP 36.9–38.2; O2SAT 94–100
[2024-08-24 00:48] LABS: Glucose Point of Care 215 mg/dl (65-105)
[2024-08-24] MEDS: INSULIN ASPART (*BKC) 100 UNITS/ML SUB-Q ×6 (00:49→21:36)
[2024-08-24] MEDS: HEPARIN SOD/D5W 100 UNITS/ML 25,000 UNITS/250 ML BAG 23 UNITS IV CONT ×3 (01:12→21:35)
[2024-08-24 03:26] LABS: Partial Thromboplastin Time 83.9 Seconds (22.3-36.8)
[2024-08-24] MEDS: CEFEPIME 1 GM/NS 50 ML 1 GM/50 ML BAG IVPB ×2 (04:18→21:36)
[2024-08-24] MEDS: METOCLOPRAMIDE HCL 10 MG/10 ML SOLN UDC PO ×4 (04:19→21:35)
[2024-08-24] MEDS: CENTRAL LINE FLUSH 10 ML IV PUSH ×3 (04:30→21:37)
[2024-08-24 04:33] LABS: Glucose Point of Care 219 mg/dl (65-105)
[2024-08-24 04:46] LABS: Hematocrit 23.2 % (37.0-47.0); Hemoglobin 7.3 g/dL (12.0-15.0); Mean Corpuscular HGB Conc 31.5 g/dl (32-36); Mean Corpuscular Hemoglobin 26.2 pg (26-34); Mean Corpuscular Volume 83.2 fl (80-100); Mean Platelet Volume 12.1 fl (7.4-10.4); Platelet Count Result 173 k/mm3 (150-375); Red Blood Count 2.79 M/mm3 (4.2-5.4); Red Cell Distribution Width 18.2 % (11.5-14.5); White Blood Count 15.9 K/mm3 (4.5-10.0)
[2024-08-24 05:00] LABS: Alveolar/Arterial O2 Gradient 108.2 mmHg; Base Excess ABG 0.2 mEq/l (+/-2.0); Carboxyhemoglobin 0.4 % THb (0-2.0); Fractional Inspired Oxygen 30 %; HCO3 ABG 23.1 mEq/l (22.0-26.0); Methemoglobin ABG 0.2 %THb (0-1.5); Oxygen Content ABG 10.5 %vol (16.0-22.0); Oxygen Saturation ABG 95.6 % (95.0-100.0); PCO2 ABG 30.2 mmHg (35.0-45.0); PO2 ABG 70.2 mmHg (80.0-100.0); PO2 FiO2 Ratio Arterial Blood 2.34 %; Reduced Hemoglobin 5.4 %THb (0-5.0); Total Hemoglobin 7.9 g/dL (12.0-18.0); pH ABG 7.501 (7.350-7.450)
[2024-08-24 05:07] LABS: Alanine Aminotransferase 340 U/L (6-35); Albumin Level 3.1 g/dL (3.5-5.1); Alkaline Phosphatase 115 U/L (38-126); Anion Gap 11 mmol/L (4-12); Aspartate Amino Transferase 61 U/L (14-36); Bilirubin,Total 0.5 mg/dL (0.2-1.3); Blood Urea Nitrogen 52 mg/dL (7-17); Calcium 8.3 mg/dL (8.4-10.2); Carbon Dioxide 24 mmol/L (22-30); Chloride 100 mmol/L (98-107); Estimated CRCL calculation 15 ml/min; Estimated Glomerular Filt Rate 14; Glucose 226 mg/dL (65-110); Magnesium 2.1 mg/dL (1.6-2.3); Phosphorus 3.4 mg/dL (2.5-4.5); Potassium 3.5 mmol/L (3.4-5.0); Sodium 135 mmol/L (137-145)
[2024-08-24 05:25] LABS: Device VENTILATOR; Modified Allen's Test Pass; Site Drawn RIGHT RADIAL
[2024-08-24 05:27] LABS: Arterial Blood Gas PEEP 8 cmH2O; Arterial Blood Gas Tidal Volume 350 ml; Arterial Blood Gas Vent Mode CMV; Arterial Blood Gas Ventilator rate 18 /MIN
[2024-08-24 05:37] LABS: Vancomycin Random 21.1 ug/mL (10-20)
--- NOTE | 2024-08-24 07:33 | PM.IMPN ---
Progress Note: A&P Assessment and Plan (1) Acute respiratory failure with hypoxia: Code(s): J96.01 - Acute respiratory failure with hypoxia Status: Acute Assessment and Plan: Acute Respiratory failure secondary to combination of pneumonia and congestive heart failure Patient now intubated and on mechanical ventilation. Repeat CT chest showed worsening pneumonia Continue vancomycin cefepime azithromycin sedation per [employer] Operator (2) Congestive heart failure: Code(s): I50.9 - Heart failure, unspecified Status: Acute Assessment and Plan: See above (3) Non-ST elevation myocardial infarction (NSTEMI): Code(s): I21.4 - Non-ST elevation (NSTEMI) myocardial infarction Status: Acute Assessment and Plan: History of coronary disease status post PCI in the past now presented with elevated troponin. Cardiology following Currently on aspirin Other medications on hold due to low blood pressure Statin Hold was slightly elevated LFTs. No plan for cardiac catheterization at this time. (4) Coronary artery disease: Code(s): I25.10 - Atherosclerotic heart disease of [place] coronary artery without angina pectoris Status: Acute Assessment and Plan: See above (5) Type 2 diabetes mellitus: Code(s): E11.9 - Type 2 diabetes mellitus without complications Status: Chronic Assessment and Plan: Sliding scale insulin Continue Lantus Off steroid (6) Renal failure: Code(s): N19 - Unspecified kidney failure Status: Acute Assessment and Plan: Patient presented with creatinine of 1.5. Baseline creatinine unknown She has suprapubic catheter. As per son patient has had a renal tumor which was being monitored and plan was to start radiation therapy by her urology CT scan showed Subtle 2.5 cm mass at the upper pole of the right kidney consistent with provided history of renal tumor. Calcification is at the bilateral kidneys which appear linear and likely atherosclerotic although could not exclude nonobstructing nephrolithiasis. No hydronephrosis in either kidney. now on dialysis (7) Pneumonia: Code(s): J18.9 - Pneumonia, unspecified organism Status: Acute Assessment and Plan: See above (8) Kidney mass: Code(s): N28.89 - Other specified disorders of kidney and ureter Status: Acute Assessment and Plan: Patient's son reports history of kidney mass which is being monitor as it was too big to be removed without total nephrectomy. He states that patient was supposed to get radiation therapy in a month or so before she fractured her ankle. CT scan shows 2.5 cm renal mass on the right side and no hydronephrosis. No intervention at this time (9) DVT (deep venous thrombosis): Code(s): I82.409 - Acute embolism and thrombosis of unspecified deep veins of unspecified lower extremity Status: Acute Assessment and Plan: Bilateral venous Dopplers obtained due to swelling in the legs. Ultrasound showed Bilateral [id number] deep venous thrombosis in the left and right posterior tibial veins. Findings were discussed with the ICU nurse Carlos Herrera at 2:45 PM. On heparin infusion (10) Septic shock: Code(s): A41.9 - Sepsis, unspecified organism; R65.21 - Severe sepsis with septic shock Status: Acute Assessment and Plan: Continue Levophed and vasopressin (11) Ileus: Code(s): K56.7 - Ileus, unspecified Status: Acute Assessment and Plan: Patient has significant output from her OG tube. She has not been tolerating tube feeds for last 2 days. She is on Reglan Bowel sounds are decreased. KUB does not show anything significant abnormal [employer] Operator have requested IR for a post pyloric tube insertion and also obtain a CT abdomen pelvis today (12) Atrial fibrillation with RVR: Code(s): I48.91 - Unspecified atrial fibrillation Status: Acute Assessment and Plan: went into AIfb RVR and was started on Amiodarone Now discontinued due to sinus dominga She is already on heparin infusion cardiology following Plan DVT prophylaxis -Lovenox Stress ulcer prophylaxis - PPI Nutrition -tube feeds on hold as patient is not tolerating Code Status - Full Code Subjective Date/time seen: 08/24/24 07:33 Interval history: Patient currently on mechanical ventilation and management as per ICU Review of Systems Review of Systems: 12 systems were reviewed and are negative except for as per HPI. ROS unobtainable: Yes unobtainable due to endotracheal tube, unobtainable due to medical condition and unobtainable due to mental status Exam Narrative: General: Pt is sedated, intubated and on mechanical ventilation Lungs/Chest: Trachea central Coarse BS B/L, No crackles or wheezing. Cardiac: RRR. Normal S1 S2. No murmurs Circulation: Feet are cold Abdomen: Significant decrease bowel sounds. Obese. Soft. NT. ND. Extremities: Bilateral pitting edema : Butt in place Neurologic: Off sedation infusion was still sedated, PERRL Objective Data Vital Signs Vital Signs: Vital Signs - 24 hr 08/23/24 08:00 08/23/24 08:00 08/23/24 08:00 Temperature Pulse Rate 70 70 Respiratory Rate 26 H Blood Pressure 97/53 L Pulse Oximetry 96 95 Oxygen Delivery Mechanical Ventilation Fraction of Inspired Oxygen 30 08/23/24 08:00 08/23/24 08:25 08/23/24 10:00 Temperature Pulse Rate 73 75 Respiratory Rate 24 H Blood Pressure 130/76 Pulse Oximetry 100 98 Oxygen Delivery Mechanical Ventilation Fraction of Inspired Oxygen 30 30 08/23/24 11:30 08/23/24 11:30 08/23/24 11:41 Temperature 98.1 F Pulse Rate 70 69 Respiratory Rate 25 H Blood Pressure 92/51 L 97/54 L Pulse Oximetry Oxygen Delivery Fraction of Inspired Oxygen 30 08/23/24 12:00 08/23/24 12:00 08/23/24 12:00 Temperature Pulse Rate 69 69 Respiratory Rate 28 H Blood Pressure 95/51 L Pulse Oximetry 95 Oxygen Delivery Fraction of Inspired Oxygen 30 08/23/24 12:00 08/23/24 12:00 08/23/24 12:01 Temperature Pulse Rate 68 68 Respiratory Rate Blood Pressure 95/51 L 95/51 L Pulse Oximetry 96 Oxygen Delivery Mechanical Ventilation Fraction of Inspired Oxygen 30 08/23/24 12:02 08/23/24 12:02 08/23/24 12:03 Temperature Pulse Rate 68 68 68 Respiratory Rate 28 H 28 H Blood Pressure 95/51 L Pulse Oximetry Oxygen Delivery Fraction of Inspired Oxygen 08/23/24 12:15 08/23/24 12:18 08/23/24 12:30 Temperature Pulse Rate 70 73 69 Respiratory Rate Blood Pressure 103/55 L 111/57 L Pulse Oximetry 98 Oxygen Delivery Mechanical Ventilation Fraction of Inspired Oxygen 30 08/23/24 12:45 08/23/24 13:00 08/23/24 13:15 Temperature Pulse Rate 67 67 66 Respiratory Rate Blood Pressure 109/59 L 111/57 L 110/55 L Pulse Oximetry Oxygen Delivery Fraction of Inspired Oxygen 08/23/24 13:30 08/23/24 13:45 08/23/24 14:00 Temperature Pulse Rate 67 68 68 Respiratory Rate Blood Pressure 110/57 L 105/61 107/58 L Pulse Oximetry Oxygen Delivery Fraction of Inspired Oxygen 08/23/24 14:00 08/23/24 14:00 08/23/24 14:10 Temperature Pulse Rate 81 84 69 Respiratory Rate 27 H Blood Pressure 107/58 L Pulse Oximetry 98 100 Oxygen Delivery Mechanical Ventilation Fraction of Inspired Oxygen 30 08/23/24 14:15 08/23/24 14:30 08/23/24 14:45 Temperature Pulse Rate 69 73 77 Respiratory Rate Blood Pressure 112/58 L 119/55 L 119/63 Pulse Oximetry Oxygen Delivery Fraction of Inspired Oxygen 08/23/24 15:00 08/23/24 15:14 08/23/24 15:25 Temperature 98.2 F Pulse Rate 82 85 86 Respiratory Rate 29 H Blood Pressure 120/57 L 114/56 L 107/56 L Pulse Oximetry Oxygen Delivery Fraction of Inspired Oxygen 08/23/24 16:00 08/23/24 16:00 08/23/24 16:00 Temperature Pulse Rate 69 90 Respiratory Rate 29 H Blood Pressure 107/58 L Pulse Oximetry 100 98 Oxygen Delivery Mechanical Ventilation Fraction of Inspired Oxygen 30 08/23/24 16:00 08/23/24 17:21 08/23/24 18:00 Temperature Pulse Rate 94 94 Respiratory Rate 32 H Blood Pressure 102/56 L Pulse Oximetry 98 98 Oxygen Delivery Mechanical Ventilation Fraction of Inspired Oxygen 30 30 08/23/24 18:00 08/23/24 20:00 08/23/24 20:00 Temperature Pulse Rate 82 83 Respiratory Rate 29 H Blood Pressure Pulse Oximetry 99 Oxygen Delivery Mechanical Ventilation Fraction of Inspired Oxygen 30 30 08/23/24 20:00 08/23/24 20:00 08/23/24 20:00 Temperature Pulse Rate 83 83 83 Respiratory Rate 31 H Blood Pressure 103/54 L 103/54 L Pulse Oximetry 99 Oxygen Delivery Fraction of Inspired Oxygen 08/23/24 20:30 08/23/24 22:00 08/23/24 22:00 Temperature Pulse Rate 82 86 86 Respiratory Rate 30 H Blood Pressure 103/56 L Pulse Oximetry 98 97 Oxygen Delivery Mechanical Ventilation Fraction of Inspired Oxygen 30 08/23/24 22:00 08/23/24 23:17 08/24/24 00:00 Temperature Pulse Rate 86 80 80 Respiratory Rate 30 H Blood Pressure 103/56 L Pulse Oximetry 96 100 Oxygen Delivery Mechanical Ventilation Mechanical Ventilation Fraction of Inspired Oxygen 30 30 08/24/24 00:00 08/24/24 00:00 08/24/24 00:00 Temperature Pulse Rate 80 79 Respiratory Rate 32 H Blood Pressure 109/55 L Pulse Oximetry 100 Oxygen Delivery Fraction of Inspired Oxygen 30 08/24/24 00:00 08/24/24 02:00 08/24/24 02:00 Temperature Pulse Rate 80 79 79 Respiratory Rate 33 H Blood Pressure 109/55 L 110/55 L Pulse Oximetry 100 Oxygen Delivery Fraction of Inspired Oxygen 08/24/24 02:00 08/24/24 02:07 08/24/24 04:00 Temperature Pulse Rate 79 82 80 Respiratory Rate 30 H Blood Pressure 110/55 L 96/49 L Pulse Oximetry 100 96 Oxygen Delivery Mechanical Ventilation Fraction of Inspired Oxygen 30 08/24/24 04:00 08/24/24 04:00 08/24/24 04:00 Temperature Pulse Rate 80 79 Respiratory Rate Blood Pressure 102/53 L Pulse Oximetry Oxygen Delivery Fraction of Inspired Oxygen 30 08/24/24 04:00 08/24/24 04:45 08/24/24 05:53 Temperature Pulse Rate 81 80 Respiratory Rate Blood Pressure 91/46 L Pulse Oximetry 96 99 Oxygen Delivery Mechanical Ventilation Mechanical Ventilation Fraction of Inspired Oxygen 30 30 08/24/24 06:00 08/24/24 06:00 08/24/24 06:00 Temperature 100.8 F H Pulse Rate 77 77 77 Respiratory Rate 32 H Blood Pressure 96/48 L 96/48 L Pulse Oximetry 98 Oxygen Delivery Fraction of Inspired Oxygen 08/24/24 06:15 08/24/24 06:30 Temperature Pulse Rate 77 76 Respiratory Rate Blood Pressure 104/55 L 102/51 L Pulse Oximetry Oxygen Delivery Fraction of Inspired Oxygen Intake/Output Intake/Output: Intake & Output 08/21/24 08/22/24 08/23/24 08/24/24 23:59 23:59 23:59 23:59 Intake Total 1602.8 1384.9 897.7 599.6 Output Total 2381 800 2300 50 Balance -778.2 584.9 -1402.3 549.6 Meds/Results Medications: Active Medications Generic Name Dose Route Start Last Admin Trade Name Freq PRN Reason Stop Dose Admin Acetaminophen 650 mg 08/18/24 21:48 08/22/24 12:56 Acetaminophen Elixir 325 Mg/10.15 Ml Udc PO 650 mg Q4H PRN Administration Mild Pain (1-3) or Fever Dextrose 12.5 gm 08/18/24 05:53 Dextrose 50% 25 Gm/50 Ml Syringe IV PUSH PRN PRN Hypoglycemia Protocol Glucagon 1 mg 08/18/24 05:53 Glucagon For Inj 1 Mg Vial IM PRN PRN Hypoglycemia Protocol Glucose 15 gm 08/18/24 05:53 Glucose Oral Gel 15 Gm Of Glucse In 37.5 Gm Tube PO PRN PRN Hypoglycemia Protocol Heparin Sodium (Porcine) 5,500 units 08/18/24 15:05 08/18/24 23:23 Heparin Sodium 5,000 Units/Ml Vial IV PUSH 5,500 units PRN PRN Administration aPTT less than 55 seconds Heparin Sodium (Porcine) 3,000 units 08/18/24 15:05 08/23/24 10:58 Heparin Sodium 5,000 Units/Ml Vial IV PUSH 3,000 units PRN PRN Administration aPTT 55 - 70 seconds Midazolam HCl 100 mg in 100 mls @ 0 mls/hr 08/18/24 00:55 08/23/24 12:02 Versed 100 Mg/Ns 100 Ml IV CONT Infused .Q0M TEMI Titration Protocol Dextrose 1,000 mls @ 100 mls/hr 08/18/24 05:53 Dextrose 5% 1,000 Ml IVPB PRN PRN Hypoglycemia Protocol Heparin Sodium/Dextrose 25,000 units in 250 mls @ 23 mls/hr 08/18/24 15:05 08/24/24 04:19 Heparin Sodium/D5w 100 Units/Ml IV CONT Not Given .[id number] TEMI Protocol 2,300 UNITS/HR Norepinephrine Bitartrate 8 mg in 250 mls @ 9.375 mls/hr 08/19/24 12:30 08/24/24 06:30 Levophed 8 Mg/D5w 250 Ml IV CONT 5 mcg/min .Q24H TEMI 9.38 mls/hr Titration Protocol 5 MCG/MIN Cefepime HCl 1 gm in 50 mls @ 100 mls/hr 08/20/24 21:00 08/24/24 04:48 Maxipime 1 Gm/Ns 50 Ml IVPB Infused QHS TEMI Infusion Albumin Human 50 mls @ 999 mls/hr 08/21/24 06:28 Albutein IVPB 09/20/24 06:27 Q10M PRN HYPOTENSION Vasopressin 100 units/ 100 mls @ 0 mls/hr 08/21/24 23:35 08/23/24 12:02 Dextrose IV CONT 0 units/min .Q0M TEMI 0 mls/hr Titration Protocol Insulin Aspart 4 - 8 units 08/20/24 21:05 08/24/24 04:30 Insulin Aspart (*Bkc) 100 Units/Ml SUB-Q 4 units Q4HR TEMI Administration Protocol Insulin Glargine 20 units 08/21/24 09:00 08/23/24 08:49 Insulin Glargine (*Bkc) 100 Units/Ml SUB-Q 20 units QAM TEMI Administration Ipratropium [place] 0.5 mg 08/20/24 07:40 08/22/24 19:54 Ipratropium Br 0.02% Inh Soln 0.5 Mg/2.5 Ml Vial INHALATION 0.5 mg Q6HRT PRN Administration Wheezing Levalbuterol HCl 1.25 mg 08/20/24 07:40 08/22/24 19:54 Levalbuterol Neb 1.25 Mg/3 Ml INHALATION 1.25 mg Q6HRT PRN Administration Wheezing Metoclopramide HCl 10 mg 08/23/24 08:00 08/24/24 04:19 Metoclopramide Hcl 10 Mg/10 Ml Soln Udc PO 10 mg Q6H TEMI Administration Midazolam HCl 2 mg 08/19/24 02:59 08/19/24 05:16 Midazolam Hcl (*Crx) 2 Mg/2 Ml Vial IV PUSH 2 mg Q1HR PRN Administration Agitation Multi-Ingred Cream/Lotion/Oil/Oint 1 applic 08/18/24 09:00 08/23/24 21:00 Mineral Oil/White Petrolatum Ointment EACH EYE 1 applic Q12HR TEMI Administration Mupirocin 1 applic 08/15/24 21:00 08/23/24 21:00 Mupirocin 2% Oint 22 Gm Tube EACH NARE 1 applic Q12HR TEMI Administration Pantoprazole Sodium 40 mg 08/19/24 09:00 08/23/24 08:48 Pantoprazole Sodium Iv 40 Mg Vial IV PUSH 40 mg QAM TEMI Administration Polyethylene Glycol 17 gm 08/15/24 22:20 08/22/24 08:16 Polyethylene Glycol 3350 17 Gm Powd.Pack PO 17 gm DAILY PRN Administration constipation Sodium Chloride 10 ml 08/19/24 22:00 08/24/24 04:30 Central Line Flush IV PUSH 10 ml Q8HR TEMI Administration Sodium Chloride 20 ml 08/19/24 18:43 Central Line Flush IV PUSH PRN PRN after blood draws Vancomycin HCl 1 each 08/20/24 09:39 Vancomycin For Hemodialysis IVPB PRN PRN Vancomycin Protocol Radiology Results: ITS Impressions Chest CTA 08/15/24 11:11 IMPRESSION: No pulmonary embolus. No thoracic aortic dissection. Right upper lobe infiltrate with patchy bilateral airspace disease, likely inflammatory/congestive rather than infectious. Small bilateral pleural effusions with adjacent atelectasis. Venous Doppler Study 08/18/24 14:42 IMPRESSION: 1. Bilateral [id number] deep venous thrombosis in the left and right posterior tibial veins. Findings were discussed with the ICU nurse Carlos Herrera at 2:45 PM. Renal Ultrasound 08/19/24 14:10 IMPRESSION: No hydronephrosis or renal calculi. Findings suggesting medical renal disease. Findings within the upper pole of the right kidney consistent with patient's history, as detailed above. Chest/Abdomen/Pelvis CT 08/23/24 09:58 IMPRESSION: CHEST: 1. Bilateral pneumonia which is slightly decreased compared to previous study. Bilateral pleural effusion more on the right side. ABDOMEN/PELVIS: 1. No evidence of appendicitis, diverticulitis or intestinal obstruction. 2. Bilateral tiny kidney stones. 3. Hepatomegaly. 4. No evidence of ileus seen. ADDENDUM: 08/23/24 1042 Possibility of mass in the right kidney upper pole cannot be excluded. Abdomen X-Ray 08/23/24 16:53 IMPRESSION: 1. Dobbhoff type nasoenteric feeding tube with distal tip projecting over the gastric fundus. Chest X-Ray 08/24/24 06:27 Impression: Mild pulmonary edema with bilateral pleural effusions, right greater than left. Support tubes, as above. Labs Labs: Laboratory Results - last 24 hr 08/23/24 08/23/24 08/23/24 07:43 08:32 11:34 WBC RBC Hgb Hct MCV MCH MCHC RDW Plt Count MPV APTT 67.1 H Puncture Site ABG pH ABG pCO2 ABG pO2 ABG PO2/FiO2 Ratio ABG HCO3 ABG O2 Saturation ABG O2 Content ABG Base Excess A-a Gradient Oxyhemoglobin Carboxyhemoglobin Methemoglobin Reduced Hemoglobin Total Hemoglobin O2 Delivery Device O2 Liters/Min Minute Volume Vent Rate Vent Mode FiO2 Tidal Volume PEEP Peak Inspir Pressure Pressure Support Sodium Potassium Chloride Carbon Dioxide Anion Gap BUN Creatinine Estim Creat Clear Calc Estimated GFR Glucose POC Capillary Glucose 210 H 198 H Calcium Phosphorus Magnesium Total Bilirubin AST ALT Alkaline Phosphatase Total Protein Albumin Random Vancomycin 08/23/24 08/23/24 08/23/24 16:55 18:55 21:19 WBC RBC Hgb Hct MCV MCH MCHC RDW Plt Count MPV APTT 79.3 H Puncture Site ABG pH ABG pCO2 ABG pO2 ABG PO2/FiO2 Ratio ABG HCO3 ABG O2 Saturation ABG O2 Content ABG Base Excess A-a Gradient Oxyhemoglobin Carboxyhemoglobin Methemoglobin Reduced Hemoglobin Total Hemoglobin O2 Delivery Device O2 Liters/Min Minute Volume Vent Rate Vent Mode FiO2 Tidal Volume PEEP Peak Inspir Pressure Pressure Support Sodium Potassium Chloride Carbon Dioxide Anion Gap BUN Creatinine Estim Creat Clear Calc Estimated GFR Glucose POC Capillary Glucose 147 H 196 H Calcium Phosphorus Magnesium Total Bilirubin AST ALT Alkaline Phosphatase Total Protein Albumin Random Vancomycin 08/24/24 08/24/24 08/24/24 00:45 02:50 04:23 WBC 15.9 H RBC 2.79 L Hgb 7.3 L Hct 23.2 L MCV 83.2 MCH 26.2 MCHC 31.5 L RDW 18.2 H Plt Count 173 MPV 12.1 H APTT 83.9 H Puncture Site Right radial ABG pH 7.501 H ABG pCO2 30.2 L ABG pO2 70.2 L ABG PO2/FiO2 Ratio 2.34 ABG HCO3 23.1 ABG O2 Saturation 95.6 ABG O2 Content 10.5 L ABG Base Excess 0.2 A-a Gradient 108.2 Oxyhemoglobin 94.0 Carboxyhemoglobin 0.4 Methemoglobin 0.2 Reduced Hemoglobin 5.4 H Total Hemoglobin 7.9 L O2 Delivery Device Ventilator O2 Liters/Min Not Reportable Minute Volume Not Reportable Vent Rate 18 Vent Mode Cmv FiO2 30 Tidal Volume 350 PEEP 8 Peak Inspir Pressure Not Reportable Pressure Support Not Reportable Sodium 135 L Potassium 3.5 Chloride 100 Carbon Dioxide 24 Anion Gap 11 BUN 52 H D Creatinine 3.09 H Estim Creat Clear Calc 15 Estimated GFR 14 L Glucose 226 H POC Capillary Glucose 215 H Calcium 8.3 L Phosphorus 3.4 Magnesium 2.1 Total Bilirubin 0.5 AST 61 H ALT 340 H Alkaline Phosphatase 115 Total Protein 6.0 L Albumin 3.1 L Random Vancomycin 21.1 H 08/24/24 04:25 WBC RBC Hgb Hct MCV MCH MCHC RDW Plt Count MPV APTT Puncture Site ABG pH ABG pCO2 ABG pO2 ABG PO2/FiO2 Ratio ABG HCO3 ABG O2 Saturation ABG O2 Content ABG Base Excess A-a Gradient Oxyhemoglobin Carboxyhemoglobin Methemoglobin Reduced Hemoglobin Total Hemoglobin O2 Delivery Device O2 Liters/Min Minute Volume Vent Rate Vent Mode FiO2 Tidal Volume PEEP Peak Inspir Pressure Pressure Support Sodium Potassium Chloride Carbon Dioxide Anion Gap BUN Creatinine Estim Creat Clear Calc Estimated GFR Glucose POC Capillary Glucose 219 H Calcium Phosphorus Magnesium Total Bilirubin AST ALT Alkaline Phosphatase Total Protein Albumin Random Vancomycin Quality VTE Prophylaxis VTE prophylaxis: mechanical ordered and pharmacologic ordered Hospitalist MIPS Advance Care Plan I have confirmed that the patient's Advanced Care Plan is present, code status is documented, or surrogate decision maker is listed in patient medical record.: Yes Medication Reconciliation I have utilized all available resources to obtain, update and review the patients current medications (includes all prescriptions, OTC, herbals, cannabis, and nutritional supplements).: Yes
--- NOTE | 2024-08-24 08:32 | P.PNINT_ITS ---
Progress Note: A&P Assessment and Plan (1) Acute respiratory failure with hypoxia: Code(s): J96.01 - Acute respiratory failure with hypoxia Status: Acute Assessment and Plan: Acute Respiratory failure secondary to combination of pneumonia and congestive heart failure Patient now intubated and on mechanical ventilation. Ventilator settings, ABG and chest reviewed Currently on PEEP of 10 and I have wean down FiO2 to 30%. Peep is at [address] chest 08/18 MPRESSION: 1. Significant interval progression in an lobar pneumonia along with increasing small bilateral pleural effusions. Patient has elevated procalcitonin and BNP she is positive on intake output balance but her echocardiogram shows normal biventricular size and systolic function Bronchodilators Blood cultures have been sent and pending. Sputum culture is growing Staph aureus. Susceptibilities pending Urine Legionella antigen, mycoplasma pneumonia antibody and urine pneumococcal antigen negative Dialysis to remove fluid Continue vancomycin cefepime azithromycin Continue to hold sedation. Will when patient is awake and following commands with the attempt a weaning trial Chest x-ray reviewed and shows bilateral infiltrates and effusion (2) Congestive heart failure: Code(s): I50.9 - Heart failure, unspecified Status: Acute Assessment and Plan: See above (3) Non-ST elevation myocardial infarction (NSTEMI): Code(s): I21.4 - Non-ST elevation (NSTEMI) myocardial infarction Status: Acute Assessment and Plan: History of coronary disease status post PCI in the past now presented with elevated troponin. Cardiology following Currently on aspirin Other medications on hold due to low blood pressure Statin Hold was slightly elevated LFTs. No plan for cardiac catheterization at this time. (4) Coronary artery disease: Code(s): I25.10 - Atherosclerotic heart disease of [place] coronary artery without angina pectoris Status: Acute Assessment and Plan: See above (5) Type 2 diabetes mellitus: Code(s): E11.9 - Type 2 diabetes mellitus without complications Status: Chronic Assessment and Plan: Sliding scale insulin Increase Lantus dose Off steroid (6) Renal failure: Code(s): N19 - Unspecified kidney failure Status: Acute Assessment and Plan: Patient presented with creatinine of 1.5. Baseline creatinine unknown She has suprapubic catheter. As per son patient has had a renal tumor which was being monitored and plan was to start radiation therapy by her urology CT scan showed Subtle 2.5 cm mass at the upper pole of the right kidney consistent with provided history of renal tumor. Calcification is at the bilateral kidneys which appear linear and likely atherosclerotic although could not exclude nonobstructing nephrolithiasis. No hydronephrosis in either kidney. Diuretics were held and patient was given albumin bolus Creatinine continue to increase with poor urine output. After discussion with patient's family and office machine technician decision was made to initiate dialysis. 08/19 dialysis catheter was placed and patient was dialyzed 1 L fluid was removed 08/20, 08/21, 08/23 patient was dialyzed again Monitor urine output electrolytes and creatinine Nephrology follow (7) Pneumonia: Code(s): J18.9 - Pneumonia, unspecified organism Status: Acute Assessment and Plan: See above (8) Kidney mass: Code(s): N28.89 - Other specified disorders of kidney and ureter Status: Acute Assessment and Plan: Patient's son reports history of kidney mass which is being monitor as it was too big to be removed without total nephrectomy. He states that patient was supposed to get radiation therapy in a month or so before she fractured her ankle. CT scan shows 2.5 cm renal mass on the right side and no hydronephrosis. No intervention at this time (9) DVT (deep venous thrombosis): Code(s): I82.409 - Acute embolism and thrombosis of unspecified deep veins of unspecified lower extremity Status: Acute Assessment and Plan: Bilateral venous Dopplers obtained due to swelling in the legs. Ultrasound showed Bilateral [id number] deep venous thrombosis in the left and right posterior tibial veins. Findings were discussed with the ICU nurse Carlos Herrera at 2:45 PM. Patient started on heparin infusion which will be continuous as long as she tolerate (10) Septic shock: Code(s): A41.9 - Sepsis, unspecified organism; R65.21 - Severe sepsis with septic shock Status: Acute Assessment and Plan: Continue Levophed. Off vasopressin (11) Ileus: Code(s): K56.7 - Ileus, unspecified Status: Acute Assessment and Plan: Patient has significant output from her OG tube. She has not been tolerating tube feeds for last 2 days. She is on Reglan Bowel sounds are decreased. KUB does not show anything significant abnormal 08/23 Dobbhoff placed tube feeds resume 08/24 will advance tube feeds to 40 mL/hour (12) Atrial fibrillation with RVR: Code(s): I48.91 - Unspecified atrial fibrillation Status: Acute Assessment and Plan: Patient went into AFib with RVR after hemodialysis session yesterday. She was started on amiodarone infusion. She has converted to sinus bradycardia this morning and I will discontinue it infusion at this time She is already on heparin infusion Plan DVT prophylaxis -Lovenox Stress ulcer prophylaxis - PPI Nutrition -tube feeds on hold as patient is not tolerating Code Status - Full Code 08/18 I spoke to and updated patient's son and his at bedside I answered all his questions. 08/19 I also met with patient's both sons at they wanted to proceed with hemodial ysis. 08/22 met with patient's 2 sons and updated them with patient's status including continued respiratory failure, shock, new issues of AFib with RVR and. I also updated them with treatment plan and answered all the questions. Total Critical Care Time - 30 minutes Due to a high probability of clinically significant, life threatening deterioration, the patient required my highest level of preparedness to intervene emergently and I personally spent this critical care time directly and personally managing the patient. This critical care time included obtaining a history; examining the patient; pulse oximetry; ordering and review of studies; arranging urgent treatment with development of a management plan; evaluation of patient's response to treatment; frequent reassessment; and discussions with other providers. It was exclusive of separately billable procedures and treating other patients and teaching time. Please see Assessment and Plan section and the rest of the note for further information on patient assessment and treatment Subjective Date/time seen: 08/24/24 Overnight events reviewed. febrile Continues to be on mechanical ventilation FiO2 down to 30% Continues to be on vasopressors Levophed Off continue sedation Patient had Dobbhoff tube with placed by IR yesterday and started on tube feeds and has been tolerating at 20 mL/hour Patient was dialyzed yesterday Interval history: 08/19 temporary dialysis catheter placed patient was dialyzed 08/21 vent into AFib with RVR. Converted to sinus Steve with amiodarone 08/23 Dobbhoff tube inserted Review of Systems Review of Systems: ROS unobtainable: Yes unobtainable due to endotracheal tube, unobtainable due to medical condition and unobtainable due to mental status Exam Narrative: General: Pt is sedated, intubated and on mechanical ventilation Lungs/Chest: Trachea central Coarse BS B/L, No crackles or wheezing. Cardiac: RRR. Normal S1 S2. No murmurs Circulation: Feet are cold Abdomen: Present bowel sounds on today's exam. Obese. Soft. NT. ND. Extremities: Bilateral pitting edema : Butt in place Neurologic: Off sedation infusion was still sedated, withdraws to pain in extremities PERRL Objective Data Vital Signs Vital Signs: Vital Signs - 24 hr 08/23/24 10:00 08/23/24 11:30 08/23/24 11:30 Temperature 36.7 C Pulse Rate 75 70 Respiratory Rate 24 H 25 H Blood Pressure 130/76 92/51 L Pulse Oximetry 98 Oxygen Delivery Fraction of Inspired Oxygen 08/23/24 11:41 08/23/24 12:00 08/23/24 12:00 Temperature Pulse Rate 69 69 69 Respiratory Rate 28 H Blood Pressure 97/54 L 95/51 L Pulse Oximetry 95 Oxygen Delivery Fraction of Inspired Oxygen 08/23/24 12:00 08/23/24 12:00 08/23/24 12:00 Temperature Pulse Rate 68 Respiratory Rate Blood Pressure 95/51 L Pulse Oximetry 96 Oxygen Delivery Mechanical Ventilation Fraction of Inspired Oxygen 30 30 08/23/24 12:01 08/23/24 12:02 08/23/24 12:02 Temperature Pulse Rate 68 68 68 Respiratory Rate 28 H Blood Pressure 95/51 L 95/51 L Pulse Oximetry Oxygen Delivery Fraction of Inspired Oxygen 08/23/24 12:03 08/23/24 12:15 08/23/24 12:18 Temperature Pulse Rate 68 70 73 Respiratory Rate 28 H Blood Pressure 103/55 L Pulse Oximetry 98 Oxygen Delivery Mechanical Ventilation Fraction of Inspired Oxygen 30 08/23/24 12:30 08/23/24 12:45 08/23/24 13:00 Temperature Pulse Rate 69 67 67 Respiratory Rate Blood Pressure 111/57 L 109/59 L 111/57 L Pulse Oximetry Oxygen Delivery Fraction of Inspired Oxygen 08/23/24 13:15 08/23/24 13:30 08/23/24 13:45 Temperature Pulse Rate 66 67 68 Respiratory Rate Blood Pressure 110/55 L 110/57 L 105/61 Pulse Oximetry Oxygen Delivery Fraction of Inspired Oxygen 08/23/24 14:00 08/23/24 14:00 08/23/24 14:00 Temperature Pulse Rate 68 81 84 Respiratory Rate 27 H Blood Pressure 107/58 L 107/58 L Pulse Oximetry 98 Oxygen Delivery Fraction of Inspired Oxygen 08/23/24 14:10 08/23/24 14:15 08/23/24 14:30 Temperature Pulse Rate 69 69 73 Respiratory Rate Blood Pressure 112/58 L 119/55 L Pulse Oximetry 100 Oxygen Delivery Mechanical Ventilation Fraction of Inspired Oxygen 30 08/23/24 14:45 08/23/24 15:00 08/23/24 15:14 Temperature Pulse Rate 77 82 85 Respiratory Rate Blood Pressure 119/63 120/57 L 114/56 L Pulse Oximetry Oxygen Delivery Fraction of Inspired Oxygen 08/23/24 15:25 08/23/24 16:00 08/23/24 16:00 Temperature 36.8 C Pulse Rate 86 69 Respiratory Rate 29 H 29 H Blood Pressure 107/56 L 107/58 L Pulse Oximetry 100 98 Oxygen Delivery Mechanical Ventilation Fraction of Inspired Oxygen 30 08/23/24 16:00 08/23/24 16:00 08/23/24 17:21 Temperature Pulse Rate 90 94 Respiratory Rate Blood Pressure Pulse Oximetry 98 Oxygen Delivery Mechanical Ventilation Fraction of Inspired Oxygen 30 30 08/23/24 18:00 08/23/24 18:00 08/23/24 20:00 Temperature Pulse Rate 94 82 Respiratory Rate 32 H Blood Pressure 102/56 L Pulse Oximetry 98 Oxygen Delivery Fraction of Inspired Oxygen 30 08/23/24 20:00 08/23/24 20:00 08/23/24 20:00 Temperature Pulse Rate 83 83 83 Respiratory Rate 29 H 31 H Blood Pressure 103/54 L Pulse Oximetry 99 99 Oxygen Delivery Mechanical Ventilation Fraction of Inspired Oxygen 30 08/23/24 20:00 08/23/24 20:30 08/23/24 22:00 Temperature Pulse Rate 83 82 86 Respiratory Rate 30 H Blood Pressure 103/54 L 103/56 L Pulse Oximetry 98 97 Oxygen Delivery Mechanical Ventilation Fraction of Inspired Oxygen 30 08/23/24 22:00 08/23/24 22:00 08/23/24 23:17 Temperature Pulse Rate 86 86 80 Respiratory Rate Blood Pressure 103/56 L Pulse Oximetry 96 Oxygen Delivery Mechanical Ventilation Fraction of Inspired Oxygen 30 08/24/24 00:00 08/24/24 00:00 08/24/24 00:00 Temperature Pulse Rate 80 80 Respiratory Rate 30 H 32 H Blood Pressure 109/55 L Pulse Oximetry 100 100 Oxygen Delivery Mechanical Ventilation Fraction of Inspired Oxygen 30 30 08/24/24 00:00 08/24/24 00:00 08/24/24 02:00 Temperature Pulse Rate 79 80 79 Respiratory Rate 33 H Blood Pressure 109/55 L 110/55 L Pulse Oximetry 100 Oxygen Delivery Fraction of Inspired Oxygen 08/24/24 02:00 08/24/24 02:00 08/24/24 02:07 Temperature Pulse Rate 79 79 82 Respiratory Rate Blood Pressure 110/55 L Pulse Oximetry 100 Oxygen Delivery Mechanical Ventilation Fraction of Inspired Oxygen 30 08/24/24 04:00 08/24/24 04:00 08/24/24 04:00 Temperature Pulse Rate 80 80 Respiratory Rate 30 H Blood Pressure 96/49 L 102/53 L Pulse Oximetry 96 Oxygen Delivery Fraction of Inspired Oxygen 30 08/24/24 04:00 08/24/24 04:00 08/24/24 04:45 Temperature Pulse Rate 79 81 Respiratory Rate Blood Pressure 91/46 L Pulse Oximetry 96 Oxygen Delivery Mechanical Ventilation Fraction of Inspired Oxygen 30 08/24/24 05:53 08/24/24 06:00 08/24/24 06:00 Temperature Pulse Rate 80 77 77 Respiratory Rate Blood Pressure 96/48 L Pulse Oximetry 99 Oxygen Delivery Mechanical Ventilation Fraction of Inspired Oxygen 30 08/24/24 06:00 08/24/24 06:15 08/24/24 06:30 Temperature 38.2 C H Pulse Rate 77 77 76 Respiratory Rate 32 H Blood Pressure 96/48 L 104/55 L 102/51 L Pulse Oximetry 98 Oxygen Delivery Fraction of Inspired Oxygen 08/24/24 07:55 Temperature Pulse Rate 76 Respiratory Rate Blood Pressure Pulse Oximetry 100 Oxygen Delivery Mechanical Ventilation Fraction of Inspired Oxygen 30 Intake/Output Intake/Output: Intake & Output 08/21/24 08/22/24 08/23/24 08/24/24 23:59 23:59 23:59 23:59 Intake Total 1602.8 1384.9 897.7 599.6 Output Total 2381 800 2300 50 Balance -778.2 584.9 -1402.3 549.6 Meds/Results Medications: Active Medications Generic Name Dose Route Start Last Admin Trade Name Freq PRN Reason Stop Dose Admin Acetaminophen 650 mg 08/18/24 21:48 08/22/24 12:56 Acetaminophen Elixir 325 Mg/10.15 Ml Udc PO 650 mg Q4H PRN Administration Mild Pain (1-3) or Fever Dextrose 12.5 gm 08/18/24 05:53 Dextrose 50% 25 Gm/50 Ml Syringe IV PUSH PRN PRN Hypoglycemia Protocol Glucagon 1 mg 08/18/24 05:53 Glucagon For Inj 1 Mg Vial IM PRN PRN Hypoglycemia Protocol Glucose 15 gm 08/18/24 05:53 Glucose Oral Gel 15 Gm Of Glucse In 37.5 Gm Tube PO PRN PRN Hypoglycemia Protocol Heparin Sodium (Porcine) 5,500 units 08/18/24 15:05 08/18/24 23:23 Heparin Sodium 5,000 Units/Ml Vial IV PUSH 5,500 units PRN PRN Administration aPTT less than 55 seconds Heparin Sodium (Porcine) 3,000 units 08/18/24 15:05 08/23/24 10:58 Heparin Sodium 5,000 Units/Ml Vial IV PUSH 3,000 units PRN PRN Administration aPTT 55 - 70 seconds Dextrose 1,000 mls @ 100 mls/hr 08/18/24 05:53 Dextrose 5% 1,000 Ml IVPB PRN PRN Hypoglycemia Protocol Heparin Sodium/Dextrose 25,000 units in 250 mls @ 23 mls/hr 08/18/24 15:05 08/24/24 04:19 Heparin Sodium/D5w 100 Units/Ml IV CONT Not Given .[id number] TEMI Protocol 2,300 UNITS/HR Norepinephrine Bitartrate 8 mg in 250 mls @ 9.375 mls/hr 08/19/24 12:30 08/24/24 06:30 Levophed 8 Mg/D5w 250 Ml IV CONT 5 mcg/min .Q24H TEMI 9.38 mls/hr Titration Protocol 5 MCG/MIN Cefepime HCl 1 gm in 50 mls @ 100 mls/hr 08/20/24 21:00 08/24/24 04:48 Maxipime 1 Gm/Ns 50 Ml IVPB Infused QHS TEMI Infusion Albumin Human 50 mls @ 999 mls/hr 08/21/24 06:28 Albutein IVPB 09/20/24 06:27 Q10M PRN HYPOTENSION Insulin Aspart 4 - 8 units 08/20/24 21:05 08/24/24 04:30 Insulin Aspart (*Bkc) 100 Units/Ml SUB-Q 4 units Q4HR TEMI Administration Protocol Insulin Glargine 25 units 08/24/24 09:00 Insulin Glargine (*Bkc) 100 Units/Ml SUB-Q QAM TEMI Ipratropium [place] 0.5 mg 08/20/24 07:40 08/22/24 19:54 Ipratropium Br 0.02% Inh Soln 0.5 Mg/2.5 Ml Vial INHALATION 0.5 mg Q6HRT PRN Administration Wheezing Levalbuterol HCl 1.25 mg 08/20/24 07:40 08/22/24 19:54 Levalbuterol Neb 1.25 Mg/3 Ml INHALATION 1.25 mg Q6HRT PRN Administration Wheezing Metoclopramide HCl 10 mg 08/23/24 08:00 08/24/24 04:19 Metoclopramide Hcl 10 Mg/10 Ml Soln Udc PO 10 mg Q6H TEMI Administration Midazolam HCl 2 mg 08/19/24 02:59 08/19/24 05:16 Midazolam Hcl (*Crx) 2 Mg/2 Ml Vial IV PUSH 2 mg Q1HR PRN Administration Agitation Multi-Ingred Cream/Lotion/Oil/Oint 1 applic 08/18/24 09:00 08/23/24 21:00 Mineral Oil/White Petrolatum Ointment EACH EYE 1 applic Q12HR TEMI Administration Mupirocin 1 applic 08/15/24 21:00 08/23/24 21:00 Mupirocin 2% Oint 22 Gm Tube EACH NARE 1 applic Q12HR TEMI Administration Pantoprazole Sodium 40 mg 08/19/24 09:00 08/23/24 08:48 Pantoprazole Sodium Iv 40 Mg Vial IV PUSH 40 mg QAM TEMI Administration Polyethylene Glycol 17 gm 08/15/24 22:20 08/22/24 08:16 Polyethylene Glycol 3350 17 Gm Powd.Pack PO 17 gm DAILY PRN Administration constipation Sodium Chloride 10 ml 08/19/24 22:00 08/24/24 04:30 Central Line Flush IV PUSH 10 ml Q8HR TEMI Administration Sodium Chloride 20 ml 08/19/24 18:43 Central Line Flush IV PUSH PRN PRN after blood draws Vancomycin HCl 1 each 08/20/24 09:39 Vancomycin For Hemodialysis IVPB PRN PRN Vancomycin Protocol Radiology Results: ITS Impressions Chest CTA 08/15/24 11:11 IMPRESSION: No pulmonary embolus. No thoracic aortic dissection. Right upper lobe infiltrate with patchy bilateral airspace disease, likely inflammatory/congestive rather than infectious. Small bilateral pleural effusions with adjacent atelectasis. Venous Doppler Study 08/18/24 14:42 IMPRESSION: 1. Bilateral [id number] deep venous thrombosis in the left and right posterior tibial veins. Findings were discussed with the ICU nurse Carlos Herrera at 2:45 PM. Renal Ultrasound 08/19/24 14:10 IMPRESSION: No hydronephrosis or renal calculi. Findings suggesting medical renal disease. Findings within the upper pole of the right kidney consistent with patient's history, as detailed above. Chest/Abdomen/Pelvis CT 08/23/24 09:58 IMPRESSION: CHEST: 1. Bilateral pneumonia which is slightly decreased compared to previous study. Bilateral pleural effusion more on the right side. ABDOMEN/PELVIS: 1. No evidence of appendicitis, diverticulitis or intestinal obstruction. 2. Bilateral tiny kidney stones. 3. Hepatomegaly. 4. No evidence of ileus seen. ADDENDUM: 08/23/24 1042 Possibility of mass in the right kidney upper pole cannot be excluded. Abdomen X-Ray 08/23/24 16:53 IMPRESSION: 1. Dobbhoff type nasoenteric feeding tube with distal tip projecting over the gastric fundus. Chest X-Ray 08/24/24 06:27 Impression: Mild pulmonary edema with bilateral pleural effusions, right greater than left. Support tubes, as above. Labs Labs: Laboratory Results - last 24 hr 08/23/24 08/23/24 08/23/24 08:32 11:34 16:55 WBC RBC Hgb Hct MCV MCH MCHC RDW Plt Count MPV APTT 67.1 H Puncture Site ABG pH ABG pCO2 ABG pO2 ABG PO2/FiO2 Ratio ABG HCO3 ABG O2 Saturation ABG O2 Content ABG Base Excess A-a Gradient Oxyhemoglobin Carboxyhemoglobin Methemoglobin Reduced Hemoglobin Total Hemoglobin O2 Delivery Device O2 Liters/Min Minute Volume Vent Rate Vent Mode FiO2 Tidal Volume PEEP Peak Inspir Pressure Pressure Support Sodium Potassium Chloride Carbon Dioxide Anion Gap BUN Creatinine Estim Creat Clear Calc Estimated GFR Glucose POC Capillary Glucose 198 H 147 H Calcium Phosphorus Magnesium Total Bilirubin AST ALT Alkaline Phosphatase Total Protein Albumin Random Vancomycin 08/23/24 08/23/24 08/24/24 18:55 21:19 00:45 WBC RBC Hgb Hct MCV MCH MCHC RDW Plt Count MPV APTT 79.3 H Puncture Site ABG pH ABG pCO2 ABG pO2 ABG PO2/FiO2 Ratio ABG HCO3 ABG O2 Saturation ABG O2 Content ABG Base Excess A-a Gradient Oxyhemoglobin Carboxyhemoglobin Methemoglobin Reduced Hemoglobin Total Hemoglobin O2 Delivery Device O2 Liters/Min Minute Volume Vent Rate Vent Mode FiO2 Tidal Volume PEEP Peak Inspir Pressure Pressure Support Sodium Potassium Chloride Carbon Dioxide Anion Gap BUN Creatinine Estim Creat Clear Calc Estimated GFR Glucose POC Capillary Glucose 196 H 215 H Calcium Phosphorus Magnesium Total Bilirubin AST ALT Alkaline Phosphatase Total Protein Albumin Random Vancomycin 08/24/24 08/24/24 08/24/24 02:50 04:23 04:25 WBC 15.9 H RBC 2.79 L Hgb 7.3 L Hct 23.2 L MCV 83.2 MCH 26.2 MCHC 31.5 L RDW 18.2 H Plt Count 173 MPV 12.1 H APTT 83.9 H Puncture Site Right radial ABG pH 7.501 H ABG pCO2 30.2 L ABG pO2 70.2 L ABG PO2/FiO2 Ratio 2.34 ABG HCO3 23.1 ABG O2 Saturation 95.6 ABG O2 Content 10.5 L ABG Base Excess 0.2 A-a Gradient 108.2 Oxyhemoglobin 94.0 Carboxyhemoglobin 0.4 Methemoglobin 0.2 Reduced Hemoglobin 5.4 H Total Hemoglobin 7.9 L O2 Delivery Device Ventilator O2 Liters/Min Not Reportable Minute Volume Not Reportable Vent Rate 18 Vent Mode Cmv FiO2 30 Tidal Volume 350 PEEP 8 Peak Inspir Pressure Not Reportable Pressure Support Not Reportable Sodium 135 L Potassium 3.5 Chloride 100 Carbon Dioxide 24 Anion Gap 11 BUN 52 H D Creatinine 3.09 H Estim Creat Clear Calc 15 Estimated GFR 14 L Glucose 226 H POC Capillary Glucose 219 H Calcium 8.3 L Phosphorus 3.4 Magnesium 2.1 Total Bilirubin 0.5 AST 61 H ALT 340 H Alkaline Phosphatase 115 Total Protein 6.0 L Albumin 3.1 L Random Vancomycin 21.1 H Quality VTE Prophylaxis VTE prophylaxis: mechanical ordered and pharmacologic ordered
[2024-08-24] MEDS: PANTOPRAZOLE SODIUM IV 40 MG VIAL IV PUSH (08:52)
[2024-08-24] MEDS: POTASSIUM CHLORIDE 20 MEQ PACKET (FOR LIQUID) 40 MEQ FEED TUBE (08:53)
[2024-08-24] MEDS: MINERAL OIL/WHITE PETROLATUM OINTMENT 1 APPLIC EACH EYE ×2 (08:53→21:37)
[2024-08-24] MEDS: INSULIN GLARGINE (*BKC) 100 UNITS/ML 25 UNITS SUB-Q (09:01)
[2024-08-24] MEDS: MUPIROCIN 2% OINT 22 GM TUBE 1 APPLIC EACH NARE ×2 (09:02→21:37)
[2024-08-24] MEDS: NOREPINEPHRINE 8 MG/D5W 250 ML 8 MG/250 ML BAG 9.38 MG IV CONT (09:18)
[2024-08-24 09:23] LABS: Glucose Point of Care 271 mg/dl (65-105)
--- NOTE | 2024-08-24 09:30 | P.PNNP_ITS ---
Progress Note: A&P Assessment and Plan (1) Acute kidney injury: Code(s): N17.9 - Acute kidney failure, unspecified Status: Acute Assessment and Plan: * multifactorial etiology: * relative hypotension/hemodynamic instability * infection/early sepsis * IV diuresis/diuretics * contrast exposure (CTA chest on 08/15) * hypoxia * decline in urine output at this time * evaluation to date noted: * renal u/s without obstruction (but medical renal disease) * CPK mildly elevated (but not enough to affect kidney function) * urine electrolytes prerenal * moderate proteinuria * urine eosinophils negative * HD tomorrow - fluid removal as tolerated by hemodynamics * continue to follow trend of labs and UOP to assess for potential recovery (2) Chronic kidney disease, stage 3: Code(s): N18.30 - Chronic kidney disease, stage 3 unspecified Status: Chronic Assessment and Plan: * baseline creatinine runs ~ 1.1 - 1.6mg/dl from early 2022 (from review of [facility] records) * this causes her to fluctuate between CKD stage 3A and stage 3B * presumably secondary to diabetes, hypertension, recurrent UTIs, and age- related change (3) Septic shock: Code(s): A41.9 - Sepsis, unspecified organism; R65.21 - Severe sepsis with septic shock Status: Acute Assessment and Plan: * presumably due to pneumonia * on vasopressor therapy to maintain MAP * off stress dose steroids * on antibiotics * follow culture data * follow trend of hemodynamics (4) Acute respiratory failure with hypoxia: Code(s): J96.01 - Acute respiratory failure with hypoxia Status: Acute Assessment and Plan: * due to pneumonia and pulmonary edema/CHF * on full ventilator support * further imaging of chest noted * continue current therapy (bronchodilators, antibiotics...etc) * weaning as tolerated (5) Pneumonia: Qualifiers: Laterality: bilateral Lung location: lower lobe of lung Pneumonia type: due to methicillin-resistant Staphylococcus aureus (MRSA) Qualified Code(s): J15.212 - Pneumonia due to Methicillin resistant Staphylococcus aureus Code(s): J18.9 - Pneumonia, unspecified organism Status: Acute Assessment and Plan: * suggestive by admission * blood cultures x 4 negative to date * on antibiotics (6) Congestive heart failure: Qualifiers: Heart failure type: unspecified Heart failure chronicity: acute on chronic Qualified Code(s): I50.9 - Heart failure, unspecified Code(s): I50.9 - Heart failure, unspecified Status: Acute Assessment and Plan: * imaging suggestive of pulmonary edema * Echo results (from 08/16) noted: * normal biventricular size and systolic function * no significant valvular abnormalities * was receiveing IV diuretics prior to transfer to ICU * this is on hold due to #1 and hypotension * fluid removal with dialysis as tolerated * Cardiology following (7) Non-ST elevation myocardial infarction (NSTEMI): Code(s): I21.4 - Non-ST elevation (NSTEMI) myocardial infarction Status: Acute Assessment and Plan: * elevated troponins noted * Cardiolgy folloiwing * known history of coronary disease status post stenting * suspect demand ischemia in setting of her current respiratory failure/pneumonia * s/p heparin drip x 48 hours * continue medical management (8) DVT (deep venous thrombosis): Qualifiers: DVT location: lower extremity Affected thrombotic vein of extremity: t ibial Chronicity: acute Laterality: bilateral Qualified Code(s): I82.443 - Acute embolism and thrombosis of tibial vein, bilateral Code(s): I82.409 - Acute embolism and thrombosis of unspecified deep veins of unspecified lower extremity Status: Resolved Assessment and Plan: * as noted by venous dopplers: * bilateral kanai-poj-epyl deep venous thrombosis in the left and right posterior tibial veins * on heparin infusion (9) Right renal mass: Code(s): N28.89 - Other specified disorders of kidney and ureter Status: Acute Assessment and Plan: * suspicious for renal cell carcinoma * following with [facility] Urology * removal would require total right nepherectomy which would be high risk given patient's age * referred to radiation oncology for possible radiation therapy (prior to admission) (10) Type 2 diabetes mellitus: Code(s): E11.9 - Type 2 diabetes mellitus without complications Status: Chronic Assessment and Plan: * follow accu-cheks * glycemic control per shot peen operator Will continue to follow. L Subjective Date/time seen: 08/24/24 09:30 Interval history: Follow-up for acute kidney injury/acute renal failure on chronic kidney disease. Tolerated dialysis treatment yesterday afternoon without any issues and problems (2L fluid removal); went into Afib with RVR following dialysis treatment and was briefly on amiodarone gtt before converting to sinus bradycardia; off amiodarone gtt currently but remains on heparin gtt and vasopressor therapy; remains intubated and on ventilator support; s/p Doboff placement in IR and initiated on tube feeds. Exam 2 Narrative: General: elderly female intubated/sedated and on mechanical ventilation Heart: normal S1 and S2; no rub Lungs: coarse breath sounds throughout Abdomen: soft, nontender, nondistended, positive bowel sounds Extremities: no cyanosis or clubbing; 1+ bilateral edema Skin: no nodules Objective Data Vital Signs Vital Signs: Vital Signs Temp Pulse Resp BP Pulse Ox O2 Del Method FiO2 08/24/24 09:18 87 92/46 L 08/24/24 08:00 98.5 F 79 31 H 110/58 L 99 08/24/24 08:00 30 08/24/24 08:00 79 08/24/24 08:00 70 39 H 100 Mechanical Ventilation 08/24/24 07:55 76 100 Mechanical Ventilation 08/24/24 06:30 76 102/51 L 08/24/24 06:15 77 104/55 L 08/24/24 06:00 100.8 F H 77 32 H 96/48 L 98 08/24/24 06:00 77 08/24/24 06:00 77 96/48 L 08/24/24 05:53 80 99 Mechanical Ventilation 08/24/24 04:45 81 91/46 L 08/24/24 04:00 96 Mechanical Ventilation 08/24/24 04:00 79 08/24/24 04:00 30 08/24/24 04:00 80 102/53 L 08/24/24 04:00 80 30 H 96/49 L 96 08/24/24 02:07 82 100 Mechanical Ventilation 08/24/24 02:00 79 110/55 L 08/24/24 02:00 79 08/24/24 02:00 79 33 H 110/55 L 100 08/24/24 00:00 80 109/55 L 08/24/24 00:00 79 08/24/24 00:00 80 32 H 109/55 L 100 08/24/24 00:00 30 08/24/24 00:00 80 30 H 100 Mechanical Ventilation 08/23/24 23:17 80 96 Mechanical Ventilation 08/23/24 22:00 86 103/56 L 08/23/24 22:00 86 08/23/24 22:00 86 30 H 103/56 L 97 08/23/24 20:30 82 98 Mechanical Ventilation 08/23/24 20:00 83 103/54 L 08/23/24 20:00 83 08/23/24 20:00 83 31 H 103/54 L 99 08/23/24 20:00 83 29 H 99 Mechanical Ventilation 30 08/23/24 20:00 30 08/23/24 18:00 82 08/23/24 18:00 94 32 H 102/56 L 98 08/23/24 17:21 94 98 Mechanical Ventilation 08/23/24 16:00 30 08/23/24 16:00 90 08/23/24 16:00 98 Mechanical Ventilation 30 08/23/24 16:00 69 29 H 107/58 L 100 08/23/24 15:25 98.2 F 86 29 H 107/56 L 08/23/24 15:14 85 114/56 L 08/23/24 15:00 82 120/57 L 08/23/24 14:45 77 119/63 08/23/24 14:30 73 119/55 L 08/23/24 14:15 69 112/58 L 08/23/24 14:10 69 100 Mechanical Ventilation 08/23/24 14:00 84 27 H 107/58 L 98 08/23/24 14:00 81 08/23/24 14:00 68 107/58 L 08/23/24 13:45 68 105/61 08/23/24 13:30 67 110/57 L 08/23/24 13:15 66 110/55 L 08/23/24 13:00 67 111/57 L 08/23/24 12:45 67 109/59 L 08/23/24 12:30 69 111/57 L Intake/Output Intake/Output: Intake & Output 08/21/24 08/22/24 08/23/24 08/24/24 23:59 23:59 23:59 23:59 Intake Total 1602.8 1384.9 897.7 793.5 Output Total 2381 800 2300 50 Balance -778.2 584.9 -1402.3 743.5 Meds/Results Medications: Active Medications Generic Name Dose Route Start Last Admin Trade Name Freq PRN Reason Stop Dose Admin Acetaminophen 650 mg 08/18/24 21:48 08/22/24 12:56 Acetaminophen Elixir 325 Mg/10.15 Ml Udc PO 650 mg Q4H PRN Administration Mild Pain (1-3) or Fever Dextrose 12.5 gm 08/18/24 05:53 Dextrose 50% 25 Gm/50 Ml Syringe IV PUSH PRN PRN Hypoglycemia Protocol Glucagon 1 mg 08/18/24 05:53 Glucagon For Inj 1 Mg Vial IM PRN PRN Hypoglycemia Protocol Glucose 15 gm 08/18/24 05:53 Glucose Oral Gel 15 Gm Of Glucse In 37.5 Gm Tube PO PRN PRN Hypoglycemia Protocol Heparin Sodium (Porcine) 5,500 units 08/18/24 15:05 08/18/24 23:23 Heparin Sodium 5,000 Units/Ml Vial IV PUSH 5,500 units PRN PRN Administration aPTT less than 55 seconds Heparin Sodium (Porcine) 3,000 units 08/18/24 15:05 08/23/24 10:58 Heparin Sodium 5,000 Units/Ml Vial IV PUSH 3,000 units PRN PRN Administration aPTT 55 - 70 seconds Dextrose 1,000 mls @ 100 mls/hr 08/18/24 05:53 Dextrose 5% 1,000 Ml IVPB PRN PRN Hypoglycemia Protocol Heparin Sodium/Dextrose 25,000 units in 250 mls @ 23 mls/hr 08/18/24 15:05 08/24/24 10:00 Heparin Sodium/D5w 100 Units/Ml IV CONT 2,300 units/hr .[id number] TEMI 23 mls/hr Titration Protocol 2,300 UNITS/HR Norepinephrine Bitartrate 8 mg in 250 mls @ 9.375 mls/hr 08/19/24 12:30 08/24/24 10:00 Levophed 8 Mg/D5w 250 Ml IV CONT 5 mcg/min .Q24H TEMI 9.38 mls/hr Titration Protocol 5 MCG/MIN Cefepime HCl 1 gm in 50 mls @ 100 mls/hr 08/20/24 21:00 08/24/24 04:48 Maxipime 1 Gm/Ns 50 Ml IVPB Infused QHS TEIM Infusion Albumin Human 50 mls @ 999 mls/hr 08/21/24 06:28 Albutein IVPB 05/05/25 06:27 Q10M PRN HYPOTENSION Vancomycin HCl 500 mg in 100 mls @ 100 mls/hr 08/25/24 15:00 Vancomycin 500 Mg/Ns 100 Ml IVPB 08/25/24 15:59 ONCE ONE Insulin Aspart 4 - 8 units 08/20/24 21:05 08/24/24 08:51 Insulin Aspart (*Bkc) 100 Units/Ml SUB-Q 5 units Q4HR TEMI Administration Protocol Insulin Glargine 25 units 08/24/24 09:00 08/24/24 09:01 Insulin Glargine (*Bkc) 100 Units/Ml SUB-Q 25 units QAM TEMI Administration Ipratropium [place] 0.5 mg 08/20/24 07:40 08/22/24 19:54 Ipratropium Br 0.02% Inh Soln 0.5 Mg/2.5 Ml Vial INHALATION 0.5 mg Q6HRT PRN Administration Wheezing Levalbuterol HCl 1.25 mg 08/20/24 07:40 08/22/24 19:54 Levalbuterol Neb 1.25 Mg/3 Ml INHALATION 1.25 mg Q6HRT PRN Administration Wheezing Metoclopramide HCl 10 mg 08/23/24 08:00 08/24/24 08:53 Metoclopramide Hcl 10 Mg/10 Ml Soln Udc PO 10 mg Q6H TEMI Administration Midazolam HCl 2 mg 08/19/24 02:59 08/19/24 05:16 Midazolam Hcl (*Crx) 2 Mg/2 Ml Vial IV PUSH 2 mg Q1HR PRN Administration Agitation Multi-Ingred Cream/Lotion/Oil/Oint 1 applic 08/18/24 09:00 08/24/24 08:53 Mineral Oil/White Petrolatum Ointment EACH EYE 1 applic Q12HR TEMI Administration Mupirocin 1 applic 08/15/24 21:00 08/24/24 09:02 Mupirocin 2% Oint 22 Gm Tube EACH NARE 1 applic Q12HR TEMI Administration Pantoprazole Sodium 40 mg 08/19/24 09:00 08/24/24 08:52 Pantoprazole Sodium Iv 40 Mg Vial IV PUSH 40 mg QAM TEMI Administration Polyethylene Glycol 17 gm 08/15/24 22:20 08/22/24 08:16 Polyethylene Glycol 3350 17 Gm Powd.Pack PO 17 gm DAILY PRN Administration constipation Sodium Chloride 10 ml 08/19/24 22:00 08/24/24 04:30 Central Line Flush IV PUSH 10 ml Q8HR TEMI Administration Sodium Chloride 20 ml 08/19/24 18:43 Central Line Flush IV PUSH PRN PRN after blood draws Vancomycin HCl 1 each 08/20/24 09:39 Vancomycin For Hemodialysis IVPB PRN PRN Vancomycin Protocol Radiology Results: ITS Impressions Chest CTA 08/15/24 11:11 IMPRESSION: No pulmonary embolus. No thoracic aortic dissection. Right upper lobe infiltrate with patchy bilateral airspace disease, likely inflammatory/congestive rather than infectious. Small bilateral pleural effusions with adjacent atelectasis. Venous Doppler Study 08/18/24 14:42 IMPRESSION: 1. Bilateral [id number] deep venous thrombosis in the left and right posterior tibial veins. Findings were discussed with the ICU nurse Carlos Herrera at 2:45 PM. Renal Ultrasound 08/19/24 14:10 IMPRESSION: No hydronephrosis or renal calculi. Findings suggesting medical renal disease. Findings within the upper pole of the right kidney consistent with patient's history, as detailed above. Chest/Abdomen/Pelvis CT 08/23/24 09:58 IMPRESSION: CHEST: 1. Bilateral pneumonia which is slightly decreased compared to previous study. Bilateral pleural effusion more on the right side. ABDOMEN/PELVIS: 1. No evidence of appendicitis, diverticulitis or intestinal obstruction. 2. Bilateral tiny kidney stones. 3. Hepatomegaly. 4. No evidence of ileus seen. ADDENDUM: 08/23/24 1042 Possibility of mass in the right kidney upper pole cannot be excluded. Abdomen X-Ray 08/23/24 16:53 IMPRESSION: 1. Dobbhoff type nasoenteric feeding tube with distal tip projecting over the gastric fundus. Chest X-Ray 08/24/24 06:27 Impression: Mild pulmonary edema with bilateral pleural effusions, right greater than left. Support tubes, as above. Labs Labs: Laboratory Tests 08/24/24 04:23 08/24/24 04:23 Calcium 8.3 L Phosphorus 3.4 Magnesium 2.1 Total Bilirubin 0.5 AST 61 H ALT 340 H Alkaline Phosphatase 115 Total Protein 6.0 L Albumin 3.1 L Random Vancomycin 21.1 H Microbiology 08/21/24 09:22 Sputum Sputum Culture - Preliminary Staphylococcus aureus
--- NOTE | 2024-08-24 10:57 | PCNFU ---
Nutrition Follow-Up Complete: Increased nutrient needs related to altered skin integrity as evidenced by noted pressure injuries goal: PO intake 50% or greater for meals and supplements No goal met. New goal: meet estimated nutritional needs. Pt current nutrition is Nepro at 30 ml/hr with Prosource BID and Gianluca BID. Last recorded weight is 89.3 kg, up from 88.8 kg on admit. Bowel Motility: +BM reported 08/23 Labs Reviewed: Glu 226, Cr 3.09, 52, Alb 3.1, Na 135 Meds Noted:Reglan, Protonix, Lantus,Levophed Skin: Deep Tissue-buttocks, unstageable-left heel. Additional Notes: Patient remains on mechanical vent. Sedation is off. No Ileus reported. Tube feedings are being advanced, currently at 30 ml/hr and plans for goal rate of 40 ml/hr later today. Protein Modulars of Gianluca and Prosource added BID for additional kcal and protein needs. Total Nutrition: 1904 kcal/117 gm protein/640 ml water. Flush 30 ml q 4 hours. Tube feeding meeting 100% kcal needs at 22 kcal/kg and 100% kcal needs at 1.5 gm/kg. Agree with diet orders at this time. Monitor daily in ICU rounds. will reassess intake, wt, labs, skin every Friday and Friday.
[2024-08-24 12:24] LABS: Glucose Point of Care 248 mg/dl (65-105)
[2024-08-24 16:12] LABS: Glucose Point of Care 277 mg/dl (65-105)
[2024-08-24 22:04] LABS: Glucose Point of Care 268 mg/dl (65-105)
[2024-08-24] MEDS: MIDAZOLAM HCL (*CRX) 2 MG/2 ML VIAL IV PUSH (23:37)
[2024-08-25] VITALS (43 sets, daily range): BP systolic 91–135; BP diastolic 49–98; PULSE 70–124; RESP 26–48; TEMP 36.5–38; O2SAT 35–100
[2024-08-25] MEDS: PROPOFOL IV EMULSION 100 ML 2.68 MG IV CONT (00:07)
[2024-08-25] MEDS: ACETAMINOPHEN ELIXIR 325 MG/10.15 ML UDC 650 MG PO (00:13)
[2024-08-25] MEDS: INSULIN ASPART (*BKC) 100 UNITS/ML SUB-Q ×5 (00:14→21:54)
[2024-08-25 00:24] LABS: Glucose Point of Care 280 mg/dl (65-105)
[2024-08-25 00:40] LABS: Triglycerides 250 mg/dL (<150)
[2024-08-25] MEDS: METOCLOPRAMIDE HCL 10 MG/10 ML SOLN UDC PO ×3 (03:48→21:55)
[2024-08-25 04:55] LABS: Alveolar/Arterial O2 Gradient 149.9 mmHg; Base Excess ABG -3.5 mEq/l (+/-2.0); Carboxyhemoglobin 0.3 % THb (0-2.0); Fractional Inspired Oxygen 40 %; HCO3 ABG 20.8 mEq/l (22.0-26.0); Methemoglobin ABG 0.3 %THb (0-1.5); Oxygen Content ABG 11.5 %vol (16.0-22.0); Oxygen Saturation ABG 97.4 % (95.0-100.0); Oxyhemoglobin 96.7 % THb (90.0-100.0); PCO2 ABG 33.9 mmHg (35.0-45.0); PO2 ABG 96.3 mmHg (80.0-100.0); PO2 FiO2 Ratio Arterial Blood 2.41 %; Reduced Hemoglobin 2.7 %THb (0-5.0); Total Hemoglobin 8.3 g/dL (12.0-18.0); pH ABG 7.405 (7.350-7.450)
[2024-08-25 04:57] LABS: Device VENTILATOR; Modified Allen's Test Pass; Site Drawn RIGHT RADIAL
[2024-08-25 04:58] LABS: Arterial Blood Gas Tidal Volume 320 ml; Arterial Blood Gas Vent Mode CMV; Arterial Blood Gas Ventilator rate 18 /MIN
[2024-08-25 04:59] LABS: Arterial Blood Gas PEEP 8 cmH2O
[2024-08-25 06:07] LABS: Hematocrit 24.8 % (37.0-47.0); Hemoglobin 7.7 g/dL (12.0-15.0); Mean Corpuscular Hemoglobin 26.6 pg (26-34); Mean Corpuscular Volume 85.5 fl (80-100); Platelet Count Result 187 k/mm3 (150-375); Red Cell Distribution Width 18.7 % (11.5-14.5); White Blood Count 16.4 K/mm3 (4.5-10.0)
[2024-08-25 06:24] LABS: Partial Thromboplastin Time 95.4 Seconds (22.3-36.8)
[2024-08-25 06:29] LABS: Alanine Aminotransferase 223 U/L (6-35); Albumin Level 3.3 g/dL (3.5-5.1); Alkaline Phosphatase 115 U/L (38-126); Anion Gap 14 mmol/L (4-12); Aspartate Amino Transferase 38 U/L (14-36); Bilirubin,Total 0.5 mg/dL (0.2-1.3); Blood Urea Nitrogen 82 mg/dL (7-17); Calcium 8.7 mg/dL (8.4-10.2); Carbon Dioxide 21 mmol/L (22-30); Chloride 98 mmol/L (98-107); Estimated CRCL calculation 10 ml/min; Estimated Glomerular Filt Rate 9; Glucose 260 mg/dL (65-110); Magnesium 2.4 mg/dL (1.6-2.3); Phosphorus 5.6 mg/dL (2.5-4.5); Potassium 4.5 mmol/L (3.4-5.0); Sodium 133 mmol/L (137-145)
[2024-08-25] MEDS: CENTRAL LINE FLUSH 10 ML IV PUSH ×3 (07:03→21:55)
[2024-08-25] MEDS: PROPOFOL IV EMULSION 100 ML 10.72 MG IV CONT (07:05)
[2024-08-25] MEDS: HEPARIN SOD/D5W 100 UNITS/ML 25,000 UNITS/250 ML BAG 23 UNITS IV CONT ×2 (08:38→20:00)
--- NOTE | 2024-08-25 09:08 | P.PNINT_ITS ---
Progress Note: A&P Assessment and Plan (1) Acute respiratory failure with hypoxia: Code(s): J96.01 - Acute respiratory failure with hypoxia Status: Acute Assessment and Plan: Acute Respiratory failure secondary to combination of pneumonia and congestive heart failure Patient now intubated and on mechanical ventilation. Ventilator settings, ABG and chest reviewed Currently on PEEP of 10 and I have wean down FiO2 to 30%. Peep is at [address] chest 08/18 MPRESSION: 1. Significant interval progression in an lobar pneumonia along with increasing small bilateral pleural effusions. Patient has elevated procalcitonin and BNP she is positive on intake output balance but her echocardiogram shows normal biventricular size and systolic function Bronchodilators Blood cultures have been sent and pending. Sputum culture is growing MRSA Urine Legionella antigen, mycoplasma pneumonia antibody and urine pneumococcal antigen negative Dialysis to remove fluid Continue vancomycin cefepime azithromycin Patient was off of sedation for 2 days and became tachypneic with a synchronous with ventilator. Patient started on propofol overnight IV will discontinue profile after dialysis session today and evaluate patient. Weaning trial will depend on improvement in patient's encephalopathy Chest x-ray reviewed and shows bilateral infiltrates and effusion (2) Congestive heart failure: Code(s): I50.9 - Heart failure, unspecified Status: Acute Assessment and Plan: See above (3) Non-ST elevation myocardial infarction (NSTEMI): Code(s): I21.4 - Non-ST elevation (NSTEMI) myocardial infarction Status: Acute Assessment and Plan: History of coronary disease status post PCI in the past now presented with elevated troponin. Cardiology following Currently on aspirin Other medications on hold due to low blood pressure Statin Hold was slightly elevated LFTs. No plan for cardiac catheterization at this time. (4) Coronary artery disease: Code(s): I25.10 - Atherosclerotic heart disease of [place] coronary artery without angina pectoris Status: Acute Assessment and Plan: See above (5) Type 2 diabetes mellitus: Code(s): E11.9 - Type 2 diabetes mellitus without complications Status: Chronic Assessment and Plan: Sliding scale insulin Increase Lantus dose Off steroid (6) Renal failure: Code(s): N19 - Unspecified kidney failure Status: Acute Assessment and Plan: Patient presented with creatinine of 1.5. Baseline creatinine unknown She has suprapubic catheter. As per son patient has had a renal tumor which was being monitored and plan was to start radiation therapy by her urology CT scan showed Subtle 2.5 cm mass at the upper pole of the right kidney consistent with provided history of renal tumor. Calcification is at the bilateral kidneys which appear linear and likely atherosclerotic although could not exclude nonobstructing nephrolithiasis. No hydronephrosis in either kidney. Diuretics were held and patient was given albumin bolus Creatinine continue to increase with poor urine output. After discussion with patient's family and hearing and speech assistant decision was made to initiate dialysis. 08/19 dialysis catheter was placed and patient was dialyzed 1 L fluid was removed 08/20, 08/21, 08/23 patient is getting dialyzed again today Monitor urine output electrolytes and creatinine Nephrology follow (7) Pneumonia: Code(s): J18.9 - Pneumonia, unspecified organism Status: Acute Assessment and Plan: See above (8) Kidney mass: Code(s): N28.89 - Other specified disorders of kidney and ureter Status: Acute Assessment and Plan: Patient's son reports history of kidney mass which is being monitor as it was too big to be removed without total nephrectomy. He states that patient was supposed to get radiation therapy in a month or so before she fractured her ankle. CT scan shows 2.5 cm renal mass on the right side and no hydronephrosis. No intervention at this time (9) DVT (deep venous thrombosis): Code(s): I82.409 - Acute embolism and thrombosis of unspecified deep veins of unspecified lower extremity Status: Acute Assessment and Plan: Bilateral venous Dopplers obtained due to swelling in the legs. Ultrasound showed Bilateral [id number] deep venous thrombosis in the left and right posterior tibial veins. Findings were discussed with the ICU nurse Carlos Herrera at 2:45 PM. Patient started on heparin infusion which will be continuous as long as she tolerate (10) Septic shock: Code(s): A41.9 - Sepsis, unspecified organism; R65.21 - Severe sepsis with septic shock Status: Acute Assessment and Plan: Continue Levophed. Off vasopressin (11) Ileus: Code(s): K56.7 - Ileus, unspecified Status: Acute Assessment and Plan: Patient has significant output from her OG tube. She has not been tolerating tube feeds for last 2 days. She is on Reglan Bowel sounds are decreased. KUB does not show anything significant abnormal 08/23 Dobbhoff placed tube feeds resume 08/24 will advance tube feeds to 40 mL/hour (12) Atrial fibrillation with RVR: Code(s): I48.91 - Unspecified atrial fibrillation Status: Acute Assessment and Plan: Patient went into AFib with RVR after hemodialysis session yesterday. She was started on amiodarone infusion. She has converted to sinus bradycardia this morning and I will discontinue it infusion at this time She is already on heparin infusion (13) Encephalopathy: Code(s): G93.40 - Encephalopathy, unspecified Status: Acute Assessment and Plan: Patient was on Versed and fentanyl infusion for many days. She also has renal failure pain Continue to hold his sedative except propofol at this time. Will hold propofol after dialysis today Will check head CT, ammonia level Plan DVT prophylaxis -Lovenox Stress ulcer prophylaxis - PPI Nutrition -tube feeds on hold as patient is not tolerating Code Status - Full Code 08/18 I spoke to and updated patient's son and his at bedside I answered all his questions. 08/19 I also met with patient's both sons at they wanted to proceed with hemodialysis. 08/22 met with patient's 2 sons and updated them with patient's status including continued respiratory failure, shock, new issues of AFib with RVR and. I also updated them with treatment plan and answered all the questions. Total Critical Care Time - 30 minutes Due to a high probability of clinically significant, life threatening deterioration, the patient required my highest level of preparedness to intervene emergently and I personally spent this critical care time directly and personally managing the patient. This critical care time included obtaining a history; examining the patient; pulse oximetry; ordering and review of studies; arranging urgent treatment with development of a management plan; evaluation of patient's response to treatment; frequent reassessment; and discussions with other providers. It was exclusive of separately billable procedures and treating other patients and teaching time. Please see Assessment and Plan section and the rest of the note for further information on patient assessment and treatment Subjective Date/time seen: 08/25/24 Overnight events reviewed. Continues to be on mechanical ventilation 30% FiO2 Continues to be on Levophed Patient was started on propofol last night due to tachypnea and asynchrony with the ventilator Patient is getting dialyzed this morning Urine output remains low Interval history: / temporary dialysis catheter placed patient was dialyzed 08/21 vent into AFib with RVR. Converted to sinus Steve with amiodarone 08/23 Dobbhoff tube inserted Review of Systems Review of Systems: ROS unobtainable: Yes unobtainable due to endotracheal tube, unobtainable due to medical condition and unobtainable due to mental status Exam Narrative: General: Pt is sedated, intubated and on mechanical ventilation Lungs/Chest: Trachea central Coarse BS B/L, No crackles or wheezing. Cardiac: RRR. Normal S1 S2. No murmurs Circulation: Feet are cold Abdomen: Present bowel sounds on today's exam. Obese. Soft. NT. ND. Extremities: Bilateral pitting edema : Butt in place Neurologic: withdraws to pain in extremities PERRL Objective Data Vital Signs Vital Signs: Vital Signs - 24 hr 08/24/24 09:18 08/24/24 09:18 08/24/24 10:00 Temperature Pulse Rate 87 87 78 Respiratory Rate Blood Pressure 92/46 L 92/46 L Pulse Oximetry Oxygen Delivery Fraction of Inspired Oxygen 08/24/24 10:00 08/24/24 10:00 08/24/24 11:30 Temperature Pulse Rate 78 77 77 Respiratory Rate 20 Blood Pressure 99/53 L 101/50 L Pulse Oximetry 100 100 Oxygen Delivery Mechanical Ventilation Fraction of Inspired Oxygen 30 08/24/24 12:00 08/24/24 12:00 08/24/24 12:00 Temperature Pulse Rate 82 82 Respiratory Rate 28 H Blood Pressure Pulse Oximetry 96 Oxygen Delivery Mechanical Ventilation Fraction of Inspired Oxygen 30 30 08/24/24 12:00 08/24/24 12:00 08/24/24 14:00 Temperature 37.1 C Pulse Rate 82 76 77 Respiratory Rate 28 H Blood Pressure 106/58 L 118/95 H Pulse Oximetry 98 Oxygen Delivery Fraction of Inspired Oxygen 08/24/24 14:00 08/24/24 14:00 08/24/24 14:05 Temperature Pulse Rate 77 72 74 Respiratory Rate 38 H Blood Pressure 107/58 L 102/72 Pulse Oximetry 97 96 Oxygen Delivery Mechanical Ventilation Fraction of Inspired Oxygen 30 08/24/24 16:00 08/24/24 16:00 08/24/24 16:00 Temperature 37.1 C Pulse Rate 77 77 83 Respiratory Rate 40 H Blood Pressure 103/54 L 110/59 L Pulse Oximetry 98 Oxygen Delivery Fraction of Inspired Oxygen 08/24/24 16:00 08/24/24 16:00 08/24/24 17:01 Temperature Pulse Rate 79 77 Respiratory Rate 38 H Blood Pressure Pulse Oximetry 97 96 Oxygen Delivery Mechanical Ventilation Mechanical Ventilation Fraction of Inspired Oxygen 30 30 30 08/24/24 18:00 08/24/24 18:00 08/24/24 18:00 Temperature Pulse Rate 76 85 85 Respiratory Rate 34 H Blood Pressure 114/87 112/59 L Pulse Oximetry 100 Oxygen Delivery Fraction of Inspired Oxygen 08/24/24 20:00 08/24/24 20:00 08/24/24 20:00 Temperature Pulse Rate 77 Respiratory Rate Blood Pressure 110/58 L Pulse Oximetry 99 Oxygen Delivery Mechanical Ventilation Fraction of Inspired Oxygen 30 08/24/24 20:00 08/24/24 20:00 08/24/24 21:21 Temperature 37.2 C Pulse Rate 78 77 78 Respiratory Rate 38 H Blood Pressure 110/58 L Pulse Oximetry 99 99 Oxygen Delivery Mechanical Ventilation Fraction of Inspired Oxygen 30 08/24/24 21:38 08/24/24 22:00 08/24/24 22:00 Temperature Pulse Rate 88 87 88 Respiratory Rate Blood Pressure 120/65 116/66 Pulse Oximetry Oxygen Delivery Fraction of Inspired Oxygen 08/24/24 22:00 08/24/24 23:11 08/25/24 00:00 Temperature Pulse Rate 88 91 105 H Respiratory Rate 42 H Blood Pressure 116/66 120/67 Pulse Oximetry 98 94 Oxygen Delivery Mechanical Ventilation Fraction of Inspired Oxygen 30 08/25/24 00:00 08/25/24 00:00 08/25/24 00:00 Temperature Pulse Rate 107 H Respiratory Rate Blood Pressure Pulse Oximetry 95 Oxygen Delivery Mechanical Ventilation Fraction of Inspired Oxygen 30 08/25/24 00:00 08/25/24 00:07 08/25/24 00:13 Temperature 38.0 C H 38.0 C H Pulse Rate 104 H 107 H Respiratory Rate 45 H 48 H Blood Pressure 130/66 Pulse Oximetry 95 Oxygen Delivery Fraction of Inspired Oxygen 08/25/24 00:15 08/25/24 00:30 08/25/24 01:30 Temperature 37.2 C Pulse Rate 108 H 108 H Respiratory Rate 44 H 40 H Blood Pressure Pulse Oximetry Oxygen Delivery Fraction of Inspired Oxygen 08/25/24 02:00 08/25/24 02:00 08/25/24 02:00 Temperature Pulse Rate 90 90 90 Respiratory Rate 39 H Blood Pressure 121/64 Pulse Oximetry Oxygen Delivery Fraction of Inspired Oxygen 08/25/24 02:00 08/25/24 02:20 08/25/24 04:00 Temperature Pulse Rate 90 92 Respiratory Rate 39 H Blood Pressure 121/64 Pulse Oximetry 96 94 Oxygen Delivery Mechanical Ventilation Fraction of Inspired Oxygen 30 30 08/25/24 04:00 08/25/24 04:00 08/25/24 04:00 Temperature Pulse Rate 81 82 Respiratory Rate 35 H Blood Pressure 106/63 Pulse Oximetry 95 97 Oxygen Delivery Mechanical Ventilation Fraction of Inspired Oxygen 08/25/24 04:59 08/25/24 06:00 08/25/24 06:00 Temperature Pulse Rate 79 83 83 Respiratory Rate 31 H Blood Pressure 105/63 Pulse Oximetry 98 95 Oxygen Delivery Mechanical Ventilation Fraction of Inspired Oxygen 30 08/25/24 07:05 08/25/24 07:05 08/25/24 08:00 Temperature Pulse Rate 75 75 73 Respiratory Rate 33 H 33 H 33 H Blood Pressure Pulse Oximetry 99 Oxygen Delivery Mechanical Ventilation Fraction of Inspired Oxygen 30 08/25/24 08:00 08/25/24 08:00 08/25/24 08:00 Temperature 37.0 C Pulse Rate 73 73 Respiratory Rate 32 H Blood Pressure 111/62 Pulse Oximetry 99 Oxygen Delivery Fraction of Inspired Oxygen 30 Intake/Output Intake/Output: Intake & Output 08/22/24 08/23/24 08/24/24 08/25/24 23:59 23:59 23:59 23:59 Intake Total 1384.9 897.7 1588.2 863.0 Output Total 800 2300 100 30 Balance 584.9 -1402.3 1488.2 833.0 Meds/Results Medications: Active Medications Generic Name Dose Route Start Last Admin Trade Name Freq PRN Reason Stop Dose Admin Acetaminophen 650 mg 08/18/24 21:48 08/25/24 00:13 Acetaminophen Elixir 325 Mg/10.15 Ml Udc PO 650 mg Q4H PRN Administration Mild Pain (1-3) or Fever Dextrose 12.5 gm 08/18/24 05:53 Dextrose 50% 25 Gm/50 Ml Syringe IV PUSH PRN PRN Hypoglycemia Protocol Epoetin Oliver-epbx 10,000 units 08/25/24 18:31 Epoetin Oliver-Epbx 10,000 Units/Ml Vial IV PUSH 08/25/24 18:32 ONCE ONE Glucagon 1 mg 08/18/24 05:53 Glucagon For Inj 1 Mg Vial IM PRN PRN Hypoglycemia Protocol Glucose 15 gm 08/18/24 05:53 Glucose Oral Gel 15 Gm Of Glucse In 37.5 Gm Tube PO PRN PRN Hypoglycemia Protocol Heparin Sodium (Porcine) 5,500 units 08/18/24 15:05 08/18/24 23:23 Heparin Sodium 5,000 Units/Ml Vial IV PUSH 5,500 units PRN PRN Administration aPTT less than 55 seconds Heparin Sodium (Porcine) 3,000 units 08/18/24 15:05 08/23/24 10:58 Heparin Sodium 5,000 Units/Ml Vial IV PUSH 3,000 units PRN PRN Administration aPTT 55 - 70 seconds Dextrose 1,000 mls @ 100 mls/hr 08/18/24 05:53 Dextrose 5% 1,000 Ml IVPB PRN PRN Hypoglycemia Protocol Heparin Sodium/Dextrose 25,000 units in 250 mls @ 23 mls/hr 08/18/24 15:05 08/25/24 08:38 Heparin Sodium/D5w 100 Units/Ml IV CONT 2,300 units/hr .[id number] TEMI 23 mls/hr Administration Protocol 2,300 UNITS/HR Norepinephrine Bitartrate 8 mg in 250 mls @ 7.5 mls/hr 08/19/24 12:30 08/25/24 02:00 Levophed 8 Mg/D5w 250 Ml IV CONT 4 mcg/min .Q24H TEMI 7.5 mls/hr Titration Protocol 4 MCG/MIN Cefepime HCl 1 gm in 50 mls @ 100 mls/hr 08/20/24 21:00 08/24/24 21:36 Maxipime 1 Gm/Ns 50 Ml IVPB 100 mls/hr QHS TEMI Administration Albumin Human 50 mls @ 999 mls/hr 08/21/24 06:28 Albutein IVPB 09/20/24 06:27 Q10M PRN HYPOTENSION Vancomycin HCl 500 mg in 100 mls @ 100 mls/hr 08/25/24 15:00 Vancomycin 500 Mg/Ns 100 Ml IVPB 08/25/24 15:59 ONCE ONE Propofol 100 mls @ 10.716 mls/hr 08/25/24 00:00 08/25/24 07:05 Diprivan IV CONT 20 mcg/kg/min .Q9H20M TEMI 10.72 mls/hr Administration Protocol 20 MCG/KG/MIN Insulin Aspart 4 - 8 units 08/20/24 21:05 08/25/24 07:03 Insulin Aspart (*Bkc) 100 Units/Ml SUB-Q 5 units Q4HR TEMI Administration Protocol Insulin Glargine 30 units 08/25/24 09:00 Insulin Glargine (*Bkc) 100 Units/Ml SUB-Q QAM TEMI Ipratropium [place] 0.5 mg 08/20/24 07:40 08/22/24 19:54 Ipratropium Br 0.02% Inh Soln 0.5 Mg/2.5 Ml Vial INHALATION 0.5 mg Q6HRT PRN Administration Wheezing Levalbuterol HCl 1.25 mg 08/20/24 07:40 08/22/24 19:54 Levalbuterol Neb 1.25 Mg/3 Ml INHALATION 1.25 mg Q6HRT PRN Administration Wheezing Metoclopramide HCl 10 mg 08/23/24 08:00 08/25/24 03:48 Metoclopramide Hcl 10 Mg/10 Ml Soln Udc PO 10 mg Q6H TEMI Administration Multi-Ingred Cream/Lotion/Oil/Oint 1 applic 08/18/24 09:00 08/24/24 21:37 Mineral Oil/White Petrolatum Ointment EACH EYE 1 applic Q12HR TEMI Administration Mupirocin 1 applic 08/15/24 21:00 08/24/24 21:37 Mupirocin 2% Oint 22 Gm Tube EACH NARE 1 applic Q12HR TEMI Administration Pantoprazole Sodium 40 mg 08/19/24 09:00 08/24/24 08:52 Pantoprazole Sodium Iv 40 Mg Vial IV PUSH 40 mg QAM TEMI Administration Polyethylene Glycol 17 gm 08/15/24 22:20 08/22/24 08:16 Polyethylene Glycol 3350 17 Gm Powd.Pack PO 17 gm DAILY PRN Administration constipation Sodium Chloride 10 ml 08/19/24 22:00 08/25/24 07:03 Central Line Flush IV PUSH 10 ml Q8HR TEMI Administration Sodium Chloride 20 ml 08/19/24 18:43 Central Line Flush IV PUSH PRN PRN after blood draws Vancomycin HCl 1 each 08/20/24 09:39 Vancomycin For Hemodialysis IVPB PRN PRN Vancomycin Protocol Radiology Results: ITS Impressions Chest CTA 08/15/24 11:11 IMPRESSION: No pulmonary embolus. No thoracic aortic dissection. Right upper lobe infiltrate with patchy bilateral airspace disease, likely inflammatory/congestive rather than infectious. Small bilateral pleural effusions with adjacent atelectasis. Venous Doppler Study 08/18/24 14:42 IMPRESSION: 1. Bilateral [id number] deep venous thrombosis in the left and right posterior tibial veins. Findings were discussed with the ICU nurse Carlos Herrera at 2:45 PM. Renal Ultrasound 08/19/24 14:10 IMPRESSION: No hydronephrosis or renal calculi. Findings suggesting medical renal disease. Findings within the upper pole of the right kidney consistent with patient's history, as detailed above. Chest/Abdomen/Pelvis CT 08/23/24 09:58 IMPRESSION: CHEST: 1. Bilateral pneumonia which is slightly decreased compared to previous study. Bilateral pleural effusion more on the right side. ABDOMEN/PELVIS: 1. No evidence of appendicitis, diverticulitis or intestinal obstruction. 2. Bilateral tiny kidney stones. 3. Hepatomegaly. 4. No evidence of ileus seen. ADDENDUM: 08/23/24 1042 Possibility of mass in the right kidney upper pole cannot be excluded. Abdomen X-Ray 08/23/24 16:53 IMPRESSION: 1. Dobbhoff type nasoenteric feeding tube with distal tip projecting over the gastric fundus. Chest X-Ray 08/25/24 06:16 Impression: Mild to moderate pulmonary edema pattern with bilateral pleural effusions, right greater than left. Support tubes, as above. Labs Labs: Laboratory Results - last 24 hr 08/24/24 08/24/24 08/24/24 08:50 12:15 16:10 WBC RBC Hgb Hct MCV MCH MCHC RDW Plt Count MPV APTT Puncture Site ABG pH ABG pCO2 ABG pO2 ABG PO2/FiO2 Ratio ABG HCO3 ABG O2 Saturation ABG O2 Content ABG Base Excess A-a Gradient Oxyhemoglobin Carboxyhemoglobin Methemoglobin Reduced Hemoglobin Total Hemoglobin O2 Delivery Device O2 Liters/Min Minute Volume Vent Rate Vent Mode FiO2 Tidal Volume PEEP Peak Inspir Pressure Pressure Support Sodium Potassium Chloride Carbon Dioxide Anion Gap BUN Creatinine Estim Creat Clear Calc Estimated GFR Glucose POC Capillary Glucose 271 H 248 H 277 H Calcium Phosphorus Magnesium Total Bilirubin AST ALT Alkaline Phosphatase Total Protein Albumin Triglycerides 08/24/24 08/25/24 08/25/24 21:30 00:13 00:22 WBC RBC Hgb Hct MCV MCH MCHC RDW Plt Count MPV APTT Puncture Site ABG pH ABG pCO2 ABG pO2 ABG PO2/FiO2 Ratio ABG HCO3 ABG O2 Saturation ABG O2 Content ABG Base Excess A-a Gradient Oxyhemoglobin Carboxyhemoglobin Methemoglobin Reduced Hemoglobin Total Hemoglobin O2 Delivery Device O2 Liters/Min Minute Volume Vent Rate Vent Mode FiO2 Tidal Volume PEEP Peak Inspir Pressure Pressure Support Sodium Potassium Chloride Carbon Dioxide Anion Gap BUN Creatinine Estim Creat Clear Calc Estimated GFR Glucose POC Capillary Glucose 268 H 280 H Calcium Phosphorus Magnesium Total Bilirubin AST ALT Alkaline Phosphatase Total Protein Albumin Triglycerides 250 H 08/25/24 08/25/24 04:45 06:03 WBC 16.4 H RBC 2.90 L Hgb 7.7 L Hct 24.8 L MCV 85.5 MCH 26.6 MCHC 31.0 L RDW 18.7 H Plt Count 187 MPV 12.0 H APTT 95.4 H Puncture Site Right radial ABG pH 7.405 ABG pCO2 33.9 L ABG pO2 96.3 ABG PO2/FiO2 Ratio 2.41 ABG HCO3 20.8 L ABG O2 Saturation 97.4 ABG O2 Content 11.5 L ABG Base Excess -3.5 A-a Gradient 149.9 Oxyhemoglobin 96.7 Carboxyhemoglobin 0.3 Methemoglobin 0.3 Reduced Hemoglobin 2.7 Total Hemoglobin 8.3 L O2 Delivery Device Ventilator O2 Liters/Min Not Reportable Minute Volume Not Reportable Vent Rate 18 Vent Mode Cmv FiO2 40 Tidal Volume 320 PEEP 8 Peak Inspir Pressure Not Reportable Pressure Support Not Reportable Sodium 133 L Potassium 4.5 Chloride 98 Carbon Dioxide 21 L Anion Gap 14 H BUN 82 H D Creatinine 4.47 H Estim Creat Clear Calc 10 Estimated GFR 9 L Glucose 260 H POC Capillary Glucose Calcium 8.7 Phosphorus 5.6 H Magnesium 2.4 H Total Bilirubin 0.5 AST 38 H ALT 223 H Alkaline Phosphatase 115 Total Protein 7.0 Albumin 3.3 L Triglycerides Quality VTE Prophylaxis VTE prophylaxis: mechanical ordered and pharmacologic ordered
[2024-08-25] MEDS: ALBUMIN HUMAN 25% 12.5 GM/50ML 100 ML 100 GM (09:27)
[2024-08-25] MEDS: EPOETIN ALFA-EPBX 10,000 UNITS/ML VIAL 10000 UNITS IV PUSH (10:02)
--- NOTE | 2024-08-25 10:42 | PCFNICU ---
ICU Rounding Note: Pt current nutrition is Nepro at 40 ml/hr with Gianluca BID and Prosource BID. Last recorded weight is 92.1 kg. Bowel Motility: Last reported BM 08/23 Labs Reviewed: TG 250, Glu 260, BUN 82, GFR 9, Na 133, Alb 3.3 Meds Noted: Propofol 20 hqjm=848 kcal, Levophed, Protonix, Reglan. Skin:Deep Tissue-buttock, unstageable-left heel. Additional Notes: Patient remains on mechanical vent. Tube feedings are being tolerated of Nepro at 40 ml/hr. Total Nutrition: 2187 kcal/117 gm protein/640 ml water. Patient is meeting 99% kcal needs at 25 kcal/kg and 100% protein needs at 1.2-1.4 gm/kg. Flush 30 ml q 4 hours. Dialysis today. Following daily in ICU rounds. Reassessing every Friday and Friday.
--- NOTE | 2024-08-25 12:15 | P.PNNP_ITS ---
Progress Note: A&P Assessment and Plan (1) Acute kidney injury: Code(s): N17.9 - Acute kidney failure, unspecified Status: Acute Assessment and Plan: * suspect ANT with multifactorial etiology: * relative hypotension/hemodynamic instability * infection/early sepsis * IV diuresis/diuretics * contrast exposure (CTA chest on 08/15) * hypoxia * decline in urine output still present * evaluation to date noted: * renal u/s without obstruction (but medical renal disease) * CPK mildly elevated (but not enough to affect kidney function) * urine electrolytes prerenal * moderate proteinuria * urine eosinophils negative * HD today - fluid removal as tolerated by hemodynamics * continue to follow trend of labs and UOP to assess for potential recovery (2) Chronic kidney disease, stage 3: Code(s): N18.30 - Chronic kidney disease, stage 3 unspecified Status: Chronic Assessment and Plan: * baseline creatinine runs ~ 1.1 - 1.6mg/dl from early 2022 (from review of [facility] records) * this causes her to fluctuate between CKD stage 3A and stage 3B * presumably secondary to diabetes, hypertension, recurrent UTIs, and age- related change (3) Septic shock: Code(s): A41.9 - Sepsis, unspecified organism; R65.21 - Severe sepsis with septic shock Status: Acute Assessment and Plan: * presumably due to pneumonia * on vasopressor therapy to maintain MAP * off stress dose steroids * on antibiotics * follow culture data * follow trend of hemodynamics (4) Acute respiratory failure with hypoxia: Code(s): J96.01 - Acute respiratory failure with hypoxia Status: Acute Assessment and Plan: * due to pneumonia and pulmonary edema/CHF * on full ventilator support * further imaging of chest noted * continue current therapy (bronchodilators, antibiotics...etc) * weaning as tolerated (5) Pneumonia: Qualifiers: Laterality: bilateral Lung location: lower lobe of lung Pneumonia type: due to methicillin-resistant Staphylococcus aureus (MRSA) Qualified Code(s): J15.212 - Pneumonia due to Methicillin resistant Staphylococcus aureus Code(s): J18.9 - Pneumonia, unspecified organism Status: Acute Assessment and Plan: * suggestive by admission * blood cultures x 4 negative to date * on antibiotics (6) Congestive heart failure: Qualifiers: Heart failure type: unspecified Heart failure chronicity: acute on chronic Qualified Code(s): I50.9 - Heart failure, unspecified Code(s): I50.9 - Heart failure, unspecified Status: Acute Assessment and Plan: * imaging suggestive of pulmonary edema * Echo results (from 08/16) noted: * normal biventricular size and systolic function * no significant valvular abnormalities * was receiveing IV diuretics prior to transfer to ICU * this is on hold due to #1 and hypotension * fluid removal with dialysis as tolerated * Cardiology following (7) Non-ST elevation myocardial infarction (NSTEMI): Code(s): I21.4 - Non-ST elevation (NSTEMI) myocardial infarction Status: Acute Assessment and Plan: * elevated troponins noted * Cardiolgy folloiwing * known history of coronary disease status post stenting * suspect demand ischemia in setting of her current respiratory failure/pneumonia * s/p heparin drip x 48 hours * continue medical management (8) DVT (deep venous thrombosis): Qualifiers: DVT location: lower extremity Affected thrombotic vein of extremity: t ibial Chronicity: acute Laterality: bilateral Qualified Code(s): I82.443 - Acute embolism and thrombosis of tibial vein, bilateral Code(s): I82.409 - Acute embolism and thrombosis of unspecified deep veins of unspecified lower extremity Status: Resolved Assessment and Plan: * as noted by venous dopplers: * bilateral [id number] deep venous thrombosis in the left and right posterior tibial veins * on heparin infusion (9) Right renal mass: Code(s): N28.89 - Other specified disorders of kidney and ureter Status: Acute Assessment and Plan: * suspicious for renal cell carcinoma * following with [facility] Urology * removal would require total right nepherectomy which would be high risk given patient's age * referred to radiation oncology for possible radiation therapy (prior to admission) (10) Type 2 diabetes mellitus: Code(s): E11.9 - Type 2 diabetes mellitus without complications Status: Chronic Assessment and Plan: * follow accu-cheks * glycemic control per interactive media designer Will continue to follow. L Subjective Date/time seen: 08/25/24 12:15 Interval history: Follow-up for acute kidney injury/acute renal failure on chronic kidney disease. Tolerating dialysis treatment at the time of my visit (seen on HD at 12:05PM); still not making much urine; remains intubated and on mechanical ventilation; still requiring vasopressor therapy to maintain hemodynamics; required restart of sedation due to ventilator asynchrony and associated tachypnea; no other acute issues/events noted overnight or earlier today. Exam 2 Narrative: General: elderly female intubated/sedated and on mechanical ventilation Heart: normal S1 and S2; no rub Lungs: coarse breath sounds throughout Abdomen: soft, nontender, nondistended, positive bowel sounds Extremities: no cyanosis or clubbing; 1+ bilateral edema Skin: no nodules Objective Data Vital Signs Vital Signs: Vital Signs Temp Pulse Resp BP Pulse Ox O2 Del Method FiO2 08/25/24 12:15 75 102/55 L 08/25/24 12:00 77 37 H 08/25/24 12:00 75 135/98 H 08/25/24 12:00 98.6 F 71 26 H 135/98 H 97 08/25/24 12:00 30 08/25/24 12:00 77 08/25/24 12:00 77 28 H 99 Mechanical Ventilation 30 08/25/24 12:00 76 104/52 L 08/25/24 11:45 74 99/53 L 08/25/24 11:30 75 96/49 L 08/25/24 11:15 74 96/53 L 08/25/24 11:00 75 99/56 L 08/25/24 10:45 76 99/57 L 08/25/24 10:30 76 101/57 L 08/25/24 10:17 72 99 Mechanical Ventilation 30 08/25/24 10:15 76 106/63 08/25/24 10:00 75 26 H 08/25/24 10:00 75 135/98 H 08/25/24 10:00 75 28 H 106/63 100 08/25/24 10:00 75 08/25/24 10:00 72 99/56 L 08/25/24 09:45 70 101/53 L 08/25/24 09:23 70 98/54 L 08/25/24 09:15 40 08/25/24 09:15 98.3 F 70 34 H 102/56 L 99 08/25/24 08:00 73 32 H 08/25/24 08:00 73 111/62 08/25/24 08:00 98.6 F 73 32 H 111/62 99 08/25/24 08:00 30 08/25/24 08:00 73 08/25/24 08:00 73 33 H 99 Mechanical Ventilation 30 08/25/24 07:05 75 33 H 08/25/24 07:05 75 33 H 08/25/24 06:00 83 31 H 105/63 95 08/25/24 06:00 83 08/25/24 04:59 79 98 Mechanical Ventilation 08/25/24 04:00 82 35 H 106/63 97 08/25/24 04:00 81 08/25/24 04:00 95 Mechanical Ventilation 08/25/24 04:00 30 08/25/24 02:20 92 94 Mechanical Ventilation 30 08/25/24 02:00 90 39 H 121/64 96 08/25/24 02:00 90 08/25/24 02:00 90 39 H 08/25/24 02:00 90 121/64 08/25/24 01:30 99 F 08/25/24 00:30 108 H 40 H 08/25/24 00:15 108 H 44 H 08/25/24 00:13 100.4 F H 08/25/24 00:07 107 H 48 H 08/25/24 00:00 100.4 F H 104 H 45 H 130/66 95 08/25/24 00:00 107 H 08/25/24 00:00 95 Mechanical Ventilation 08/25/24 00:00 30 08/25/24 00:00 105 H 120/67 08/24/24 23:11 91 94 Mechanical Ventilation 08/24/24 22:00 88 42 H 116/66 98 08/24/24 22:00 88 08/24/24 22:00 87 116/66 08/24/24 21:38 88 120/65 08/24/24 21:21 78 99 Mechanical Ventilation 30 08/24/24 20:00 98.9 F 77 38 H 110/58 L 99 08/24/24 20:00 78 08/24/24 20:00 30 08/24/24 20:00 99 Mechanical Ventilation 08/24/24 20:00 77 110/58 L 08/24/24 18:00 85 34 H 112/59 L 100 08/24/24 18:00 85 08/24/24 18:00 76 114/87 08/24/24 17:01 77 96 Mechanical Ventilation 08/24/24 16:00 79 38 H 97 Mechanical Ventilation 08/24/24 16:00 30 08/24/24 16:00 98.8 F 83 40 H 110/59 L 98 08/24/24 16:00 77 08/24/24 16:00 77 103/54 L Intake/Output Intake/Output: Intake & Output 08/22/24 08/23/24 08/24/24 08/25/24 23:59 23:59 23:59 23:59 Intake Total 1384.9 897.7 1588.2 1105.6 Output Total 800 2300 100 2530 Balance 584.9 -1402.3 1488.2 -1424.4 Meds/Results Medications: Active Medications Generic Name Dose Route Start Last Admin Trade Name Freq PRN Reason Stop Dose Admin Acetaminophen 650 mg 08/18/24 21:48 08/25/24 00:13 Acetaminophen Elixir 325 Mg/10.15 Ml Udc PO 650 mg Q4H PRN Administration Mild Pain (1-3) or Fever Dextrose 12.5 gm 08/18/24 05:53 Dextrose 50% 25 Gm/50 Ml Syringe IV PUSH PRN PRN Hypoglycemia Protocol Epoetin Oliver-epbx 10,000 units 08/25/24 18:31 08/25/24 10:02 Epoetin Oliver-Epbx 10,000 Units/Ml Vial IV PUSH 08/25/24 18:32 10,000 units ONCE ONE Administration Glucagon 1 mg 08/18/24 05:53 Glucagon For Inj 1 Mg Vial IM PRN PRN Hypoglycemia Protocol Glucose 15 gm 08/18/24 05:53 Glucose Oral Gel 15 Gm Of Glucse In 37.5 Gm Tube PO PRN PRN Hypoglycemia Protocol Heparin Sodium (Porcine) 5,500 units 08/18/24 15:05 08/18/24 23:23 Heparin Sodium 5,000 Units/Ml Vial IV PUSH 5,500 units PRN PRN Administration aPTT less than 55 seconds Heparin Sodium (Porcine) 3,000 units 08/18/24 15:05 08/23/24 10:58 Heparin Sodium 5,000 Units/Ml Vial IV PUSH 3,000 units PRN PRN Administration aPTT 55 - 70 seconds Dextrose 1,000 mls @ 100 mls/hr 08/18/24 05:53 Dextrose 5% 1,000 Ml IVPB PRN PRN Hypoglycemia Protocol Heparin Sodium/Dextrose 25,000 units in 250 mls @ 23 mls/hr 08/18/24 15:05 08/25/24 08:38 Heparin Sodium/D5w 100 Units/Ml IV CONT 2,300 units/hr .[id number] TEMI 23 mls/hr Administration Protocol 2,300 UNITS/HR Norepinephrine Bitartrate 8 mg in 250 mls @ 3.994 mls/hr 08/19/24 12:30 08/25/24 14:00 Levophed 8 Mg/D5w 250 Ml IV CONT 4 mcg/min .Q24H TEMI 7.5 mls/hr Titration Protocol 2.13 MCG/MIN Cefepime HCl 1 gm in 50 mls @ 100 mls/hr 08/20/24 21:00 08/24/24 21:36 Maxipime 1 Gm/Ns 50 Ml IVPB 08/27/24 23:59 100 mls/hr QHS TEMI Administration Albumin Human 50 mls @ 999 mls/hr 08/21/24 06:28 Albutein IVPB 09/20/24 06:27 Q10M PRN HYPOTENSION Vancomycin HCl 500 mg in 100 mls @ 100 mls/hr 08/25/24 15:00 08/25/24 14:33 Vancomycin 500 Mg/Ns 100 Ml IVPB 08/25/24 15:59 100 mls/hr ONCE ONE Administration Propofol 100 mls @ 5.526 mls/hr 08/25/24 14:25 08/25/24 14:40 Diprivan IV CONT 10 mcg/kg/min .Q18H6M TEMI 5.53 mls/hr Administration Protocol 10 MCG/KG/MIN Insulin Aspart 4 - 8 units 08/20/24 21:05 08/25/24 13:42 Insulin Aspart (*Bkc) 100 Units/Ml SUB-Q 4 units Q4HR TEMI Administration Protocol Insulin Glargine 30 units 08/25/24 09:00 08/25/24 13:42 Insulin Glargine (*Bkc) 100 Units/Ml SUB-Q 30 units QAM TEMI Administration Ipratropium [place] 0.5 mg 08/20/24 07:40 08/22/24 19:54 Ipratropium Br 0.02% Inh Soln 0.5 Mg/2.5 Ml Vial INHALATION 0.5 mg Q6HRT PRN Administration Wheezing Levalbuterol HCl 1.25 mg 08/20/24 07:40 08/22/24 19:54 Levalbuterol Neb 1.25 Mg/3 Ml INHALATION 1.25 mg Q6HRT PRN Administration Wheezing Metoclopramide HCl 10 mg 08/23/24 08:00 08/25/24 13:43 Metoclopramide Hcl 10 Mg/10 Ml Soln Udc PO 10 mg Q6H TEMI Administration Multi-Ingred Cream/Lotion/Oil/Oint 1 applic 08/18/24 09:00 08/25/24 12:48 Mineral Oil/White Petrolatum Ointment EACH EYE 1 applic Q12HR TEMI Administration Mupirocin 1 applic 08/15/24 21:00 08/25/24 12:48 Mupirocin 2% Oint 22 Gm Tube EACH NARE 1 applic Q12HR TEMI Administration Pantoprazole Sodium 40 mg 08/19/24 09:00 08/25/24 12:49 Pantoprazole Sodium Iv 40 Mg Vial IV PUSH 40 mg QAM TEMI Administration Polyethylene Glycol 17 gm 08/15/24 22:20 08/22/24 08:16 Polyethylene Glycol 3350 17 Gm Powd.Pack PO 17 gm DAILY PRN Administration constipation Sodium Chloride 10 ml 08/19/24 22:00 08/25/24 13:43 Central Line Flush IV PUSH 10 ml Q8HR TEMI Administration Sodium Chloride 20 ml 08/19/24 18:43 Central Line Flush IV PUSH PRN PRN after blood draws Vancomycin HCl 1 each 08/20/24 09:39 Vancomycin For Hemodialysis IVPB 08/26/24 23:59 PRN PRN Vancomycin Protocol Radiology Results: ITS Impressions Chest CTA 08/15/24 11:11 IMPRESSION: No pulmonary embolus. No thoracic aortic dissection. Right upper lobe infiltrate with patchy bilateral airspace disease, likely inflammatory/congestive rather than infectious. Small bilateral pleural effusions with adjacent atelectasis. Venous Doppler Study 08/18/24 14:42 IMPRESSION: 1. Bilateral [id number] deep venous thrombosis in the left and right posterior tibial veins. Findings were discussed with the ICU nurse Carlos Herrera at 2:45 PM. Renal Ultrasound 08/19/24 14:10 IMPRESSION: No hydronephrosis or renal calculi. Findings suggesting medical renal disease. Findings within the upper pole of the right kidney consistent with patient's history, as detailed above. Chest/Abdomen/Pelvis CT 08/23/24 09:58 IMPRESSION: CHEST: 1. Bilateral pneumonia which is slightly decreased compared to previous study. Bilateral pleural effusion more on the right side. ABDOMEN/PELVIS: 1. No evidence of appendicitis, diverticulitis or intestinal obstruction. 2. Bilateral tiny kidney stones. 3. Hepatomegaly. 4. No evidence of ileus seen. ADDENDUM: 08/23/24 1042 Possibility of mass in the right kidney upper pole cannot be excluded. Abdomen X-Ray 08/23/24 16:53 IMPRESSION: 1. Dobbhoff type nasoenteric feeding tube with distal tip projecting over the gastric fundus. Chest X-Ray 08/25/24 06:16 Impression: Mild to moderate pulmonary edema pattern with bilateral pleural effusions, right greater than left. Support tubes, as above. Labs Labs: Laboratory Tests 08/25/24 06:03 08/25/24 06:03 Calcium 8.7 Phosphorus 5.6 H Magnesium 2.4 H Total Bilirubin 0.5 AST 38 H ALT 223 H Alkaline Phosphatase 115 Total Protein 7.0 Albumin 3.3 L Microbiology 08/21/24 09:22 Sputum Sputum Culture - Final Methicillin Resis Staph Aureus
[2024-08-25] MEDS: MINERAL OIL/WHITE PETROLATUM OINTMENT 1 APPLIC EACH EYE ×2 (12:48→21:56)
[2024-08-25] MEDS: MUPIROCIN 2% OINT 22 GM TUBE 1 APPLIC EACH NARE ×2 (12:48→21:56)
[2024-08-25] MEDS: PANTOPRAZOLE SODIUM IV 40 MG VIAL IV PUSH (12:49)
[2024-08-25 13:38] LABS: Glucose Point of Care 214 mg/dl (65-105)
[2024-08-25] MEDS: INSULIN GLARGINE (*BKC) 100 UNITS/ML 30 UNITS SUB-Q (13:42)
[2024-08-25] MEDS: VANCOMYCIN 500 MG/NS 100 ML 500 MG/100 ML BAG 100 MG IVPB (14:33)
[2024-08-25] MEDS: PROPOFOL IV EMULSION 100 ML 5.53 MG IV CONT (14:40)
--- NOTE | 2024-08-25 16:06 | PM.IMPN ---
Progress Note: A&P Assessment and Plan (1) Acute respiratory failure with hypoxia: Code(s): J96.01 - Acute respiratory failure with hypoxia Status: Acute Assessment and Plan: Acute Respiratory failure secondary to combination of pneumonia and congestive heart failure Patient now intubated and on mechanical ventilation. Ventilator settings, ABG and chest reviewed Currently on PEEP of 10 and I have wean down FiO2 to 30%. Peep is at [address] chest 08/18 MPRESSION: 1. Significant interval progression in an lobar pneumonia along with increasing small bilateral pleural effusions. Patient has elevated procalcitonin and BNP she is positive on intake output balance but her echocardiogram shows normal biventricular size and systolic function Bronchodilators Blood cultures have been sent and pending. Sputum culture is growing MRSA Urine Legionella antigen, mycoplasma pneumonia antibody and urine pneumococcal antigen negative Dialysis to remove fluid Continue vancomycin cefepime azithromycin Patient was off of sedation for 2 days and became tachypneic with a synchronous with ventilator. Patient started on propofol overnight IV will discontinue profile after dialysis session today and evaluate patient. Weaning trial will depend on improvement in patient's encephalopathy Chest x-ray reviewed and shows bilateral infiltrates and effusion (2) Congestive heart failure: Code(s): I50.9 - Heart failure, unspecified Status: Acute Assessment and Plan: See above (3) Non-ST elevation myocardial infarction (NSTEMI): Code(s): I21.4 - Non-ST elevation (NSTEMI) myocardial infarction Status: Acute Assessment and Plan: History of coronary disease status post PCI in the past now presented with elevated troponin. Cardiology following Currently on aspirin Other medications on hold due to low blood pressure Statin Hold was slightly elevated LFTs. No plan for cardiac catheterization at this time. (4) Coronary artery disease: Code(s): I25.10 - Atherosclerotic heart disease of [place] coronary artery without angina pectoris Status: Acute Assessment and Plan: See above (5) Type 2 diabetes mellitus: Code(s): E11.9 - Type 2 diabetes mellitus without complications Status: Chronic Assessment and Plan: Sliding scale insulin Increase Lantus dose Off steroid (6) Renal failure: Code(s): N19 - Unspecified kidney failure Status: Acute Assessment and Plan: Patient presented with creatinine of 1.5. Baseline creatinine unknown She has suprapubic catheter. As per son patient has had a renal tumor which was being monitored and plan was to start radiation therapy by her urology CT scan showed Subtle 2.5 cm mass at the upper pole of the right kidney consistent with provided history of renal tumor. Calcification is at the bilateral kidneys which appear linear and likely atherosclerotic although could not exclude nonobstructing nephrolithiasis. No hydronephrosis in either kidney. Diuretics were held and patient was given albumin bolus Creatinine continue to increase with poor urine output. 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 08/19 dialysis catheter was placed and patient was dialyzed 1 L fluid was removed 08/20, 08/21, 08/23 patient is getting dialyzed again today Monitor urine output electrolytes and creatinine Nephrology follow (7) Pneumonia: Code(s): J18.9 - Pneumonia, unspecified organism Status: Acute Assessment and Plan: See above (8) Kidney mass: Code(s): N28.89 - Other specified disorders of kidney and ureter Status: Acute Assessment and Plan: Patient's son reports history of kidney mass which is being monitor as it was too big to be removed without total nephrectomy. He states that patient was supposed to get radiation therapy in a month or so before she fractured her ankle. CT scan shows 2.5 cm renal mass on the right side and no hydronephrosis. No intervention at this time (9) DVT (deep venous thrombosis): Code(s): I82.409 - Acute embolism and thrombosis of unspecified deep veins of unspecified lower extremity Status: Acute Assessment and Plan: Bilateral venous Dopplers obtained due to swelling in the legs. Ultrasound showed Bilateral [id number] deep venous thrombosis in the left and right posterior tibial veins. Findings were discussed with the ICU nurse Carlos Herrera at 2:45 PM. Patient started on heparin infusion which will be continuous as long as she tolerate (10) Septic shock: Code(s): A41.9 - Sepsis, unspecified organism; R65.21 - Severe sepsis with septic shock Status: Acute Assessment and Plan: Continue Levophed. Off vasopressin (11) Ileus: Code(s): K56.7 - Ileus, unspecified Status: Acute Assessment and Plan: Patient has significant output from her OG tube. She has not been tolerating tube feeds for last 2 days. She is on Reglan Bowel sounds are decreased. KUB does not show anything significant abnormal 08/23 Dobbhoff placed tube feeds resume 08/24 will advance tube feeds to 40 mL/hour (12) Atrial fibrillation with RVR: Code(s): I48.91 - Unspecified atrial fibrillation Status: Acute Assessment and Plan: Patient went into AFib with RVR after hemodialysis session yesterday. She was started on amiodarone infusion. She has converted to sinus bradycardia this morning and I will discontinue it infusion at this time She is already on heparin infusion (13) Encephalopathy: Code(s): G93.40 - Encephalopathy, unspecified Status: Acute Assessment and Plan: Patient was on Versed and fentanyl infusion for many days. She also has renal failure pain Continue to hold his sedative except propofol at this time. Will hold propofol after dialysis today Will check head CT, ammonia level Subjective Date/time seen: 08/25/24 16:06 Interval history: Remains intubated and management as per ICU Review of Systems Review of Systems: 12 systems were reviewed and are negative except for as per HPI. ROS unobtainable: Yes unobtainable due to endotracheal tube, unobtainable due to medical condition and unobtainable due to mental status Exam Narrative: General: Pt is sedated, intubated and on mechanical ventilation Lungs/Chest: Trachea central Coarse BS B/L, No crackles or wheezing. Cardiac: RRR. Normal S1 S2. No murmurs Circulation: Feet are cold Abdomen: Present bowel sounds on today's exam. Obese. Soft. NT. ND. Extremities: Bilateral pitting edema : Butt in place Neurologic: withdraws to pain in extremities PERRL Objective Data Vital Signs Vital Signs: Vital Signs - 24 hr 08/24/24 17:01 08/24/24 18:00 08/24/24 18:00 Temperature Pulse Rate 77 76 85 Respiratory Rate Blood Pressure 114/87 Pulse Oximetry 96 Oxygen Delivery Mechanical Ventilation Fraction of Inspired Oxygen 30 08/24/24 18:00 08/24/24 20:00 08/24/24 20:00 Temperature Pulse Rate 85 77 Respiratory Rate 34 H Blood Pressure 112/59 L 110/58 L Pulse Oximetry 100 99 Oxygen Delivery Mechanical Ventilation Fraction of Inspired Oxygen 08/24/24 20:00 08/24/24 20:00 08/24/24 20:00 Temperature 98.9 F Pulse Rate 78 77 Respiratory Rate 38 H Blood Pressure 110/58 L Pulse Oximetry 99 Oxygen Delivery Fraction of Inspired Oxygen 30 08/24/24 21:21 08/24/24 21:38 08/24/24 22:00 Temperature Pulse Rate 78 88 87 Respiratory Rate Blood Pressure 120/65 116/66 Pulse Oximetry 99 Oxygen Delivery Mechanical Ventilation Fraction of Inspired Oxygen 30 08/24/24 22:00 08/24/24 22:00 08/24/24 23:11 Temperature Pulse Rate 88 88 91 Respiratory Rate 42 H Blood Pressure 116/66 Pulse Oximetry 98 94 Oxygen Delivery Mechanical Ventilation Fraction of Inspired Oxygen 30 08/25/24 00:00 08/25/24 00:00 08/25/24 00:00 Temperature Pulse Rate 105 H Respiratory Rate Blood Pressure 120/67 Pulse Oximetry 95 Oxygen Delivery Mechanical Ventilation Fraction of Inspired Oxygen 30 08/25/24 00:00 08/25/24 00:00 08/25/24 00:07 Temperature 100.4 F H Pulse Rate 107 H 104 H 107 H Respiratory Rate 45 H 48 H Blood Pressure 130/66 Pulse Oximetry 95 Oxygen Delivery Fraction of Inspired Oxygen 08/25/24 00:13 08/25/24 00:15 08/25/24 00:30 Temperature 100.4 F H Pulse Rate 108 H 108 H Respiratory Rate 44 H 40 H Blood Pressure Pulse Oximetry Oxygen Delivery Fraction of Inspired Oxygen 08/25/24 01:30 08/25/24 02:00 08/25/24 02:00 Temperature 99 F Pulse Rate 90 90 Respiratory Rate 39 H Blood Pressure 121/64 Pulse Oximetry Oxygen Delivery Fraction of Inspired Oxygen 08/25/24 02:00 08/25/24 02:00 08/25/24 02:20 Temperature Pulse Rate 90 90 92 Respiratory Rate 39 H Blood Pressure 121/64 Pulse Oximetry 96 94 Oxygen Delivery Mechanical Ventilation Fraction of Inspired Oxygen 30 08/25/24 04:00 08/25/24 04:00 08/25/24 04:00 Temperature Pulse Rate 81 Respiratory Rate Blood Pressure Pulse Oximetry 95 Oxygen Delivery Mechanical Ventilation Fraction of Inspired Oxygen 30 08/25/24 04:00 08/25/24 04:59 08/25/24 06:00 Temperature Pulse Rate 82 79 83 Respiratory Rate 35 H Blood Pressure 106/63 Pulse Oximetry 97 98 Oxygen Delivery Mechanical Ventilation Fraction of Inspired Oxygen 30 08/25/24 06:00 08/25/24 07:05 08/25/24 07:05 Temperature Pulse Rate 83 75 75 Respiratory Rate 31 H 33 H 33 H Blood Pressure 105/63 Pulse Oximetry 95 Oxygen Delivery Fraction of Inspired Oxygen 08/25/24 08:00 08/25/24 08:00 08/25/24 08:00 Temperature Pulse Rate 73 73 Respiratory Rate 33 H Blood Pressure Pulse Oximetry 99 Oxygen Delivery Mechanical Ventilation Fraction of Inspired Oxygen 30 30 08/25/24 08:00 08/25/24 08:00 08/25/24 08:00 Temperature 98.6 F Pulse Rate 73 73 73 Respiratory Rate 32 H 32 H Blood Pressure 111/62 111/62 Pulse Oximetry 99 Oxygen Delivery Fraction of Inspired Oxygen 08/25/24 09:15 08/25/24 09:15 08/25/24 09:23 Temperature 98.3 F Pulse Rate 70 70 Respiratory Rate 34 H Blood Pressure 102/56 L 98/54 L Pulse Oximetry 99 Oxygen Delivery Fraction of Inspired Oxygen 40 08/25/24 09:45 08/25/24 10:00 08/25/24 10:00 Temperature Pulse Rate 70 72 75 Respiratory Rate Blood Pressure 101/53 L 99/56 L Pulse Oximetry Oxygen Delivery Fraction of Inspired Oxygen 08/25/24 10:00 08/25/24 10:00 08/25/24 10:00 Temperature Pulse Rate 75 75 75 Respiratory Rate 28 H 26 H Blood Pressure 106/63 135/98 H Pulse Oximetry 100 Oxygen Delivery Fraction of Inspired Oxygen 08/25/24 10:15 08/25/24 10:17 08/25/24 10:30 Temperature Pulse Rate 76 72 76 Respiratory Rate Blood Pressure 106/63 101/57 L Pulse Oximetry 99 Oxygen Delivery Mechanical Ventilation Fraction of Inspired Oxygen 30 08/25/24 10:45 08/25/24 11:00 08/25/24 11:15 Temperature Pulse Rate 76 75 74 Respiratory Rate Blood Pressure 99/57 L 99/56 L 96/53 L Pulse Oximetry Oxygen Delivery Fraction of Inspired Oxygen 08/25/24 11:30 08/25/24 11:45 08/25/24 12:00 Temperature Pulse Rate 75 74 76 Respiratory Rate Blood Pressure 96/49 L 99/53 L 104/52 L Pulse Oximetry Oxygen Delivery Fraction of Inspired Oxygen 08/25/24 12:00 08/25/24 12:00 08/25/24 12:00 Temperature Pulse Rate 77 77 Respiratory Rate 28 H Blood Pressure Pulse Oximetry 99 Oxygen Delivery Mechanical Ventilation Fraction of Inspired Oxygen 30 30 08/25/24 12:00 08/25/24 12:00 08/25/24 12:00 Temperature 98.6 F Pulse Rate 71 75 77 Respiratory Rate 26 H 37 H Blood Pressure 135/98 H 135/98 H Pulse Oximetry 97 Oxygen Delivery Fraction of Inspired Oxygen 08/25/24 12:15 08/25/24 12:30 08/25/24 12:45 Temperature Pulse Rate 75 77 78 Respiratory Rate Blood Pressure 102/55 L 103/55 L 103/53 L Pulse Oximetry Oxygen Delivery Fraction of Inspired Oxygen 08/25/24 12:58 08/25/24 13:10 08/25/24 14:00 Temperature 98.4 F Pulse Rate 81 82 104 H Respiratory Rate 37 H Blood Pressure 105/51 L 104/55 L 123/76 Pulse Oximetry Oxygen Delivery Fraction of Inspired Oxygen 08/25/24 14:19 08/25/24 14:40 Temperature Pulse Rate 103 H 118 H Respiratory Rate 40 H Blood Pressure Pulse Oximetry 92 Oxygen Delivery Mechanical Ventilation Fraction of Inspired Oxygen 30 Intake/Output Intake/Output: Intake & Output 08/22/24 08/23/24 08/24/24 08/25/24 23:59 23:59 23:59 23:59 Intake Total 1384.9 897.7 1588.2 1105.6 Output Total 800 2300 100 2530 Balance 584.9 -1402.3 1488.2 -1424.4 Meds/Results Medications: Active Medications Generic Name Dose Route Start Last Admin Trade Name Freq PRN Reason Stop Dose Admin Acetaminophen 650 mg 08/18/24 21:48 08/25/24 00:13 Acetaminophen Elixir 325 Mg/10.15 Ml Udc PO 650 mg Q4H PRN Administration Mild Pain (1-3) or Fever Dextrose 12.5 gm 08/18/24 05:53 Dextrose 50% 25 Gm/50 Ml Syringe IV PUSH PRN PRN Hypoglycemia Protocol Epoetin Oliver-epbx 10,000 units 08/25/24 18:31 08/25/24 10:02 Epoetin Oliver-Epbx 10,000 Units/Ml Vial IV PUSH 08/25/24 18:32 10,000 units ONCE ONE Administration Glucagon 1 mg 08/18/24 05:53 Glucagon For Inj 1 Mg Vial IM PRN PRN Hypoglycemia Protocol Glucose 15 gm 08/18/24 05:53 Glucose Oral Gel 15 Gm Of Glucse In 37.5 Gm Tube PO PRN PRN Hypoglycemia Protocol Heparin Sodium (Porcine) 5,500 units 08/18/24 15:05 08/18/24 23:23 Heparin Sodium 5,000 Units/Ml Vial IV PUSH 5,500 units PRN PRN Administration aPTT less than 55 seconds Heparin Sodium (Porcine) 3,000 units 08/18/24 15:05 08/23/24 10:58 Heparin Sodium 5,000 Units/Ml Vial IV PUSH 3,000 units PRN PRN Administration aPTT 55 - 70 seconds Dextrose 1,000 mls @ 100 mls/hr 08/18/24 05:53 Dextrose 5% 1,000 Ml IVPB PRN PRN Hypoglycemia Protocol Heparin Sodium/Dextrose 25,000 units in 250 mls @ 23 mls/hr 08/18/24 15:05 08/25/24 08:38 Heparin Sodium/D5w 100 Units/Ml IV CONT 2,300 units/hr .[id number] TEMI 23 mls/hr Administration Protocol 2,300 UNITS/HR Norepinephrine Bitartrate 8 mg in 250 mls @ 3.994 mls/hr 08/19/24 12:30 08/25/24 14:00 Levophed 8 Mg/D5w 250 Ml IV CONT 4 mcg/min .Q24H TEMI 7.5 mls/hr Titration Protocol 2.13 MCG/MIN Cefepime HCl 1 gm in 50 mls @ 100 mls/hr 08/20/24 21:00 08/24/24 21:36 Maxipime 1 Gm/Ns 50 Ml IVPB 08/27/24 23:59 100 mls/hr QHS TEMI Administration Albumin Human 50 mls @ 999 mls/hr 08/21/24 06:28 Albutein IVPB 09/20/24 06:27 Q10M PRN HYPOTENSION Propofol 100 mls @ 5.526 mls/hr 08/25/24 14:25 08/25/24 14:40 Diprivan IV CONT 10 mcg/kg/min .Q18H6M TEMI 5.53 mls/hr Administration Protocol 10 MCG/KG/MIN Insulin Aspart 4 - 8 units 08/20/24 21:05 08/25/24 13:42 Insulin Aspart (*Bkc) 100 Units/Ml SUB-Q 4 units Q4HR TEMI Administration Protocol Insulin Glargine 30 units 08/25/24 09:00 08/25/24 13:42 Insulin Glargine (*Bkc) 100 Units/Ml SUB-Q 30 units QAM TEMI Administration Ipratropium [place] 0.5 mg 08/20/24 07:40 08/22/24 19:54 Ipratropium Br 0.02% Inh Soln 0.5 Mg/2.5 Ml Vial INHALATION 0.5 mg Q6HRT PRN Administration Wheezing Levalbuterol HCl 1.25 mg 08/20/24 07:40 08/22/24 19:54 Levalbuterol Neb 1.25 Mg/3 Ml INHALATION 1.25 mg Q6HRT PRN Administration Wheezing Metoclopramide HCl 10 mg 08/23/24 08:00 08/25/24 13:43 Metoclopramide Hcl 10 Mg/10 Ml Soln Udc PO 10 mg Q6H TEMI Administration Multi-Ingred Cream/Lotion/Oil/Oint 1 applic 08/18/24 09:00 08/25/24 12:48 Mineral Oil/White Petrolatum Ointment EACH EYE 1 applic Q12HR TEMI Administration Mupirocin 1 applic 08/15/24 21:00 08/25/24 12:48 Mupirocin 2% Oint 22 Gm Tube EACH NARE 1 applic Q12HR TEMI Administration Pantoprazole Sodium 40 mg 08/19/24 09:00 08/25/24 12:49 Pantoprazole Sodium Iv 40 Mg Vial IV PUSH 40 mg QAM TEMI Administration Polyethylene Glycol 17 gm 08/15/24 22:20 08/22/24 08:16 Polyethylene Glycol 3350 17 Gm Powd.Pack PO 17 gm DAILY PRN Administration constipation Sodium Chloride 10 ml 08/19/24 22:00 08/25/24 13:43 Central Line Flush IV PUSH 10 ml Q8HR TEMI Administration Sodium Chloride 20 ml 08/19/24 18:43 Central Line Flush IV PUSH PRN PRN after blood draws Vancomycin HCl 1 each 08/20/24 09:39 Vancomycin For Hemodialysis IVPB 08/26/24 23:59 PRN PRN Vancomycin Protocol Radiology Results: ITS Impressions Chest CTA 08/15/24 11:11 IMPRESSION: No pulmonary embolus. No thoracic aortic dissection. Right upper lobe infiltrate with patchy bilateral airspace disease, likely inflammatory/congestive rather than infectious. Small bilateral pleural effusions with adjacent atelectasis. Venous Doppler Study 08/18/24 14:42 IMPRESSION: 1. Bilateral [id number]-jcq-[id number] deep venous thrombosis in the left and right posterior tibial veins. Findings were discussed with the ICU nurse Carlos Herrera at 2:45 PM. Renal Ultrasound 08/19/24 14:10 IMPRESSION: No hydronephrosis or renal calculi. Findings suggesting medical renal disease. Findings within the upper pole of the right kidney consistent with patient's history, as detailed above. Chest/Abdomen/Pelvis CT 08/23/24 09:58 IMPRESSION: CHEST: 1. Bilateral pneumonia which is slightly decreased compared to previous study. Bilateral pleural effusion more on the right side. ABDOMEN/PELVIS: 1. No evidence of appendicitis, diverticulitis or intestinal obstruction. 2. Bilateral tiny kidney stones. 3. Hepatomegaly. 4. No evidence of ileus seen. ADDENDUM: 08/23/24 1042 Possibility of mass in the right kidney upper pole cannot be excluded. Abdomen X-Ray 08/23/24 16:53 IMPRESSION: 1. Dobbhoff type nasoenteric feeding tube with distal tip projecting over the gastric fundus. Chest X-Ray 08/25/24 06:16 Impression: Mild to moderate pulmonary edema pattern with bilateral pleural effusions, right greater than left. Support tubes, as above. Labs Labs: Laboratory Results - last 24 hr 08/24/24 08/24/24 08/25/24 16:10 21:30 00:13 WBC RBC Hgb Hct MCV MCH MCHC RDW Plt Count MPV APTT Puncture Site ABG pH ABG pCO2 ABG pO2 ABG PO2/FiO2 Ratio ABG HCO3 ABG O2 Saturation ABG O2 Content ABG Base Excess A-a Gradient Oxyhemoglobin Carboxyhemoglobin Methemoglobin Reduced Hemoglobin Total Hemoglobin O2 Delivery Device O2 Liters/Min Minute Volume Vent Rate Vent Mode FiO2 Tidal Volume PEEP Peak Inspir Pressure Pressure Support Sodium Potassium Chloride Carbon Dioxide Anion Gap BUN Creatinine Estim Creat Clear Calc Estimated GFR Glucose POC Capillary Glucose 277 H 268 H 280 H Calcium Phosphorus Magnesium Total Bilirubin AST ALT Alkaline Phosphatase Total Protein Albumin Triglycerides 08/25/24 08/25/24 08/25/24 00:22 04:45 06:03 WBC 16.4 H RBC 2.90 L Hgb 7.7 L Hct 24.8 L MCV 85.5 MCH 26.6 MCHC 31.0 L RDW 18.7 H Plt Count 187 MPV 12.0 H APTT 95.4 H Puncture Site Right radial ABG pH 7.405 ABG pCO2 33.9 L ABG pO2 96.3 ABG PO2/FiO2 Ratio 2.41 ABG HCO3 20.8 L ABG O2 Saturation 97.4 ABG O2 Content 11.5 L ABG Base Excess -3.5 A-a Gradient 149.9 Oxyhemoglobin 96.7 Carboxyhemoglobin 0.3 Methemoglobin 0.3 Reduced Hemoglobin 2.7 Total Hemoglobin 8.3 L O2 Delivery Device Ventilator O2 Liters/Min Not Reportable Minute Volume Not Reportable Vent Rate 18 Vent Mode Cmv FiO2 40 Tidal Volume 320 PEEP 8 Peak Inspir Pressure Not Reportable Pressure Support Not Reportable Sodium 133 L Potassium 4.5 Chloride 98 Carbon Dioxide 21 L Anion Gap 14 H BUN 82 H D Creatinine 4.47 H Estim Creat Clear Calc 10 Estimated GFR 9 L Glucose 260 H POC Capillary Glucose Calcium 8.7 Phosphorus 5.6 H Magnesium 2.4 H Total Bilirubin 0.5 AST 38 H ALT 223 H Alkaline Phosphatase 115 Total Protein 7.0 Albumin 3.3 L Triglycerides 250 H 08/25/24 13:36 WBC RBC Hgb Hct MCV MCH MCHC RDW Plt Count MPV APTT Puncture Site ABG pH ABG pCO2 ABG pO2 ABG PO2/FiO2 Ratio ABG HCO3 ABG O2 Saturation ABG O2 Content ABG Base Excess A-a Gradient Oxyhemoglobin Carboxyhemoglobin Methemoglobin Reduced Hemoglobin Total Hemoglobin O2 Delivery Device O2 Liters/Min Minute Volume Vent Rate Vent Mode FiO2 Tidal Volume PEEP Peak Inspir Pressure Pressure Support Sodium Potassium Chloride Carbon Dioxide Anion Gap BUN Creatinine Estim Creat Clear Calc Estimated GFR Glucose POC Capillary Glucose 214 H Calcium Phosphorus Magnesium Total Bilirubin AST ALT Alkaline Phosphatase Total Protein Albumin Triglycerides Quality VTE Prophylaxis VTE prophylaxis: mechanical ordered and pharmacologic ordered Hospitalist MIPS Advance Care Plan I have confirmed that the patient's Advanced Care Plan is present, code status is documented, or surrogate decision maker is listed in patient medical record.: Yes Medication Reconciliation I have utilized all available resources to obtain, update and review the patients current medications (includes all prescriptions, OTC, herbals, cannabis, and nutritional supplements).: Yes
[2024-08-25 17:07] LABS: Ammonia < 9 umol/L (9-30)
[2024-08-25 17:10] LABS: Glucose Point of Care 340 mg/dl (65-105)
[2024-08-25 17:32] LABS: Triglycerides 204 mg/dL (<150)
[2024-08-25] MEDS: NOREPINEPHRINE 8 MG/D5W 250 ML 8 MG/250 ML BAG 5.63 MG IV CONT (18:00)
[2024-08-25] MEDS: IPRATROPIUM BR 0.02% INH SOLN 0.5 MG/2.5 ML VIAL INHALATION (20:33)
[2024-08-25] MEDS: LEVALBUTEROL NEB 1.25 MG/3 ML INHALATION (20:33)
[2024-08-25] MEDS: CEFEPIME 1 GM/NS 50 ML 1 GM/50 ML BAG IVPB (21:55)
[2024-08-25] MEDS: PROPOFOL IV EMULSION 100 ML 11.05 MG IV CONT (22:02)
[2024-08-25 22:11] LABS: Glucose Point of Care 282 mg/dl (65-105)
[2024-08-26] VITALS (35 sets, daily range): BP systolic 90–115; BP diastolic 55–71; PULSE 84–117; RESP 27–42; TEMP 36.7–37.3; O2SAT 92–99
[2024-08-26] MEDS: INSULIN ASPART (*BKC) 100 UNITS/ML SUB-Q ×5 (01:38→20:55)
[2024-08-26] MEDS: METOCLOPRAMIDE HCL 10 MG/10 ML SOLN UDC PO ×4 (01:38→20:41)
[2024-08-26 03:37] LABS: Glucose Point of Care 331 mg/dl (65-105)
[2024-08-26 04:16] LABS: Hematocrit 24.6 % (37.0-47.0); Hemoglobin 7.6 g/dL (12.0-15.0); Mean Corpuscular HGB Conc 30.9 g/dl (32-36); Mean Corpuscular Hemoglobin 25.6 pg (26-34); Mean Corpuscular Volume 82.8 fl (80-100); Mean Platelet Volume 11.6 fl (7.4-10.4); Platelet Count Result 206 k/mm3 (150-375); Red Blood Count 2.97 M/mm3 (4.2-5.4); Red Cell Distribution Width 18.9 % (11.5-14.5); White Blood Count 14.2 K/mm3 (4.5-10.0)
[2024-08-26 04:30] LABS: Alanine Aminotransferase 145 U/L (6-35); Albumin Level 3.6 g/dL (3.5-5.1); Alkaline Phosphatase 131 U/L (38-126); Anion Gap 16 mmol/L (4-12); Aspartate Amino Transferase 51 U/L (14-36); Bilirubin,Total 0.4 mg/dL (0.2-1.3); Blood Urea Nitrogen 54 mg/dL (7-17); Calcium 8.5 mg/dL (8.4-10.2); Carbon Dioxide 24 mmol/L (22-30); Chloride 96 mmol/L (98-107); Estimated CRCL calculation 14 ml/min; Estimated Glomerular Filt Rate 13; Glucose 289 mg/dL (65-110); Magnesium 2.4 mg/dL (1.6-2.3); Phosphorus 4.1 mg/dL (2.5-4.5); Potassium 4.4 mmol/L (3.4-5.0); Sodium 136 mmol/L (137-145)
[2024-08-26 04:44] LABS: Partial Thromboplastin Time 72.8 Seconds (22.3-36.8)
[2024-08-26 04:59] LABS: Alveolar/Arterial O2 Gradient 264.6 mmHg; Base Excess ABG 2.1 mEq/l (+/-2.0); Carboxyhemoglobin 0.1 % THb (0-2.0); Fractional Inspired Oxygen 50 %; HCO3 ABG 24.7 mEq/l (22.0-26.0); Methemoglobin ABG 0.1 %THb (0-1.5); Oxygen Content ABG 11.4 %vol (16.0-22.0); Oxygen Saturation ABG 92.9 % (95.0-100.0); Oxyhemoglobin 90.9 % THb (90.0-100.0); PCO2 ABG 30.7 mmHg (35.0-45.0); PO2 ABG 57.4 mmHg (80.0-100.0); PO2 FiO2 Ratio Arterial Blood 1.15 %; Reduced Hemoglobin 8.9 %THb (0-5.0); Total Hemoglobin 8.9 g/dL (12.0-18.0)
[2024-08-26 05:06] LABS: Device VENTILATOR; Modified Allen's Test Pass; Site Drawn LEFT BRACHIAL; pH ABG 7.523 (7.350-7.450)
[2024-08-26 05:07] LABS: Arterial Blood Gas PEEP 8 cmH2O; Arterial Blood Gas Vent Mode CMV; Arterial Blood Gas Ventilator rate 18 /MIN
[2024-08-26 05:08] LABS: Arterial Blood Gas Minute Volume 11.1 LPM; Arterial Blood Gas Tidal Volume 290 ml
[2024-08-26] MEDS: CENTRAL LINE FLUSH 10 ML IV PUSH ×3 (06:49→20:56)
[2024-08-26] MEDS: HEPARIN SOD/D5W 100 UNITS/ML 25,000 UNITS/250 ML BAG 23 UNITS IV CONT ×2 (06:49→17:43)
[2024-08-26 08:26] LABS: Glucose Point of Care 342 mg/dl (65-105)
[2024-08-26] MEDS: INSULIN GLARGINE (*BKC) 100 UNITS/ML 35 UNITS SUB-Q (08:33)
[2024-08-26] MEDS: PANTOPRAZOLE SODIUM IV 40 MG VIAL IV PUSH (08:35)
[2024-08-26] MEDS: MINERAL OIL/WHITE PETROLATUM OINTMENT 1 APPLIC EACH EYE ×2 (08:35→20:41)
[2024-08-26] MEDS: MUPIROCIN 2% OINT 22 GM TUBE 1 APPLIC EACH NARE ×2 (08:35→20:40)
[2024-08-26] MEDS: PROPOFOL IV EMULSION 100 ML 13.82 MG IV CONT ×3 (08:41→18:30)
--- NOTE | 2024-08-26 09:06 | P.PNINT_ITS ---
Progress Note: A&P Assessment and Plan (1) Acute respiratory failure with hypoxia: Code(s): J96.01 - Acute respiratory failure with hypoxia Status: Acute Assessment and Plan: Acute Respiratory failure secondary to combination of pneumonia and congestive heart failure Patient now intubated and on mechanical ventilation. Ventilator settings, ABG and chest reviewed Currently on PEEP of 10 and I have wean down FiO2 to 30%. Peep is at [address] chest 08/18 MPRESSION: 1. Significant interval progression in an lobar pneumonia along with increasing small bilateral pleural effusions. Patient has elevated procalcitonin and BNP she is positive on intake output balance but her echocardiogram shows normal biventricular size and systolic function Bronchodilators Blood cultures have been sent and pending. Sputum culture is growing MRSA Urine Legionella antigen, mycoplasma pneumonia antibody and urine pneumococcal antigen negative Dialysis to remove fluid Continue vancomycin cefepime azithromycin Patient was off of sedation for 2 days and became tachypneic with a synchronous with ventilator. Patient started on propofol overnight IV will discontinue profile after dialysis session today and evaluate patient. Weaning trial will depend on improvement in patient's encephalopathy Chest x-ray reviewed and shows bilateral infiltrates and effusion (2) Congestive heart failure: Code(s): I50.9 - Heart failure, unspecified Status: Acute Assessment and Plan: See above (3) Non-ST elevation myocardial infarction (NSTEMI): Code(s): I21.4 - Non-ST elevation (NSTEMI) myocardial infarction Status: Acute Assessment and Plan: History of coronary disease status post PCI in the past now presented with elevated troponin. Cardiology following Currently on aspirin Other medications on hold due to low blood pressure Statin Hold was slightly elevated LFTs. No plan for cardiac catheterization at this time. (4) Coronary artery disease: Code(s): I25.10 - Atherosclerotic heart disease of [place] coronary artery without angina pectoris Status: Acute Assessment and Plan: See above (5) Type 2 diabetes mellitus: Code(s): E11.9 - Type 2 diabetes mellitus without complications Status: Chronic Assessment and Plan: Sliding scale insulin Increase Lantus dose Off steroid (6) Renal failure: Code(s): N19 - Unspecified kidney failure Status: Acute Assessment and Plan: Patient presented with creatinine of 1.5. Baseline creatinine unknown She has suprapubic catheter. As per son patient has had a renal tumor which was being monitored and plan was to start radiation therapy by her urology CT scan showed Subtle 2.5 cm mass at the upper pole of the right kidney consistent with provided history of renal tumor. Calcification is at the bilateral kidneys which appear linear and likely atherosclerotic although could not exclude nonobstructing nephrolithiasis. No hydronephrosis in either kidney. Diuretics were held and patient was given albumin bolus Creatinine continue to increase with poor urine output. After discussion with patient's family and [employer] supervisor decision was made to initiate dialysis. 08/19 dialysis catheter was placed and patient was dialyzed 1 L fluid was removed 08/20, 08/21, 08/23 08/25 patient was dialyzed Monitor urine output electrolytes and creatinine Nephrology follow (7) Pneumonia: Code(s): J18.9 - Pneumonia, unspecified organism Status: Acute Assessment and Plan: See above (8) Kidney mass: Code(s): N28.89 - Other specified disorders of kidney and ureter Status: Acute Assessment and Plan: Patient's son reports history of kidney mass which is being monitor as it was too big to be removed without total nephrectomy. He states that patient was supposed to get radiation therapy in a month or so before she fractured her ankle. CT scan shows 2.5 cm renal mass on the right side and no hydronephrosis. No intervention at this time (9) DVT (deep venous thrombosis): Code(s): I82.409 - Acute embolism and thrombosis of unspecified deep veins of unspecified lower extremity Status: Acute Assessment and Plan: Bilateral venous Dopplers obtained due to swelling in the legs. Ultrasound showed Bilateral [id number] deep venous thrombosis in the left and right posterior tibial veins. Findings were discussed with the ICU nurse Carlos Herrera at 2:45 PM. Patient started on heparin infusion which will be continuous as long as she tolerate (10) Septic shock: Code(s): A41.9 - Sepsis, unspecified organism; R65.21 - Severe sepsis with septic shock Status: Acute Assessment and Plan: Continue Levophed. Off vasopressin (11) Ileus: Code(s): K56.7 - Ileus, unspecified Status: Acute Assessment and Plan: Patient has significant output from her OG tube. She has not been tolerating tube feeds for last 2 days. She is on Reglan Bowel sounds are decreased. KUB does not show anything significant abnormal 08/23 Dobbhoff placed tube feeds resume 08/24 will advance tube feeds to 40 mL/hour (12) Atrial fibrillation with RVR: Code(s): I48.91 - Unspecified atrial fibrillation Status: Acute Assessment and Plan: Patient went into AFib with RVR after hemodialysis session yesterday. She was s tarted on amiodarone infusion. She has converted to sinus bradycardia this morning and I will discontinue it infusion at this time She is already on heparin infusion (13) Encephalopathy: Code(s): G93.40 - Encephalopathy, unspecified Status: Acute Assessment and Plan: Patient was on Versed and fentanyl infusion for many days. She also has renal failure which may lead to accumulate Unable to hold propofol for long periods time due to patient becoming tachypneic and developing asynchrony with the ventilator leading to desaturate I will obtain head CT since patient is on heparin infusion. Normal ammonia level Plan DVT prophylaxis -heparin infusion Stress ulcer prophylaxis - PPI Nutrition -continue tube feed Code Status - Full Code 08/18 I spoke to and updated patient's son and his at bedside I answered all his questions. 08/19 I also met with patient's both sons at they wanted to proceed with hemodialysis. 08/22 met with patient's 2 sons and updated them with patient's status including continued respiratory failure, shock, new issues of AFib with RVR and. I also updated them with treatment plan and answered all the questions. Total Critical Care Time - 30 minutes Due to a high probability of clinically significant, life threatening deterioration, the patient required my highest level of preparedness to intervene emergently and I personally spent this critical care time directly and personally managing the patient. This critical care time included obtaining a history; examining the patient; pulse oximetry; ordering and review of studies; arranging urgent treatment with development of a management plan; evaluation of patient's response to treatment; frequent reassessment; and discussions with other providers. It was exclusive of separately billable procedures and treating other patients and teaching time. Please see Assessment and Plan section and the rest of the note for further information on patient assessment and treatment Subjective Date/time seen: 08/26/24 Patient was dialyzed yesterday. She remains unresponsive. She was started on propofol due to tachypnea and desaturation due to patient ventilator asynchrony. This morning when I held the sedation briefly she again became tachypneic but no response. Afebrile tolerating tube feeds she was dialyzed yesterday and 2.5 L fluid was removed. Sinus rhythm on the monitor. Urine output remains low Interval history: 08/19 temporary dialysis catheter placed patient was dialyzed 08/21 vent into AFib with RVR. Converted to sinus Steve with amiodarone 08/23 Dobbhoff tube inserted Review of Systems Review of Systems: ROS unobtainable: Yes unobtainable due to endotracheal tube, unobtainable due to medical condition and unobtainable due to mental status Exam Narrative: General: Pt is sedated, intubated and on mechanical ventilation Lungs/Chest: Trachea central Coarse BS B/L, No crackles or wheezing. Cardiac: RRR. Normal S1 S2. No murmurs Circulation: Feet are cold Abdomen: Present bowel sounds on today's exam. Obese. Soft. NT. ND. Extremities: Bilateral pitting edema : Butt in place Neurologic: On holding sedation patient develops tachypnea with respiratory rate going in high 30s but no response to pain. PERRL Objective Data Vital Signs Vital Signs: Vital Signs - 24 hr 08/25/24 09:15 08/25/24 09:15 08/25/24 09:23 Temperature 36.8 C Pulse Rate 70 70 Respiratory Rate 34 H Blood Pressure 102/56 L 98/54 L Pulse Oximetry 99 Oxygen Delivery Fraction of Inspired Oxygen 40 08/25/24 09:45 08/25/24 10:00 08/25/24 10:00 Temperature Pulse Rate 70 72 75 Respiratory Rate Blood Pressure 101/53 L 99/56 L Pulse Oximetry Oxygen Delivery Fraction of Inspired Oxygen 08/25/24 10:00 08/25/24 10:00 08/25/24 10:00 Temperature Pulse Rate 75 75 75 Respiratory Rate 28 H 26 H Blood Pressure 106/63 135/98 H Pulse Oximetry 100 Oxygen Delivery Fraction of Inspired Oxygen 08/25/24 10:15 08/25/24 10:17 08/25/24 10:30 Temperature Pulse Rate 76 72 76 Respiratory Rate Blood Pressure 106/63 101/57 L Pulse Oximetry 99 Oxygen Delivery Mechanical Ventilation Fraction of Inspired Oxygen 30 08/25/24 10:45 08/25/24 11:00 08/25/24 11:15 Temperature Pulse Rate 76 75 74 Respiratory Rate Blood Pressure 99/57 L 99/56 L 96/53 L Pulse Oximetry Oxygen Delivery Fraction of Inspired Oxygen 08/25/24 11:30 08/25/24 11:45 08/25/24 12:00 Temperature Pulse Rate 75 74 76 Respiratory Rate Blood Pressure 96/49 L 99/53 L 104/52 L Pulse Oximetry Oxygen Delivery Fraction of Inspired Oxygen 08/25/24 12:00 08/25/24 12:00 08/25/24 12:00 Temperature Pulse Rate 77 77 Respiratory Rate 28 H Blood Pressure Pulse Oximetry 99 Oxygen Delivery Mechanical Ventilation Fraction of Inspired Oxygen 30 30 08/25/24 12:00 08/25/24 12:00 08/25/24 12:00 Temperature 37.0 C Pulse Rate 71 75 77 Respiratory Rate 26 H 37 H Blood Pressure 135/98 H 135/98 H Pulse Oximetry 97 Oxygen Delivery Fraction of Inspired Oxygen 08/25/24 12:15 08/25/24 12:30 08/25/24 12:45 Temperature Pulse Rate 75 77 78 Respiratory Rate Blood Pressure 102/55 L 103/55 L 103/53 L Pulse Oximetry Oxygen Delivery Fraction of Inspired Oxygen 08/25/24 12:58 08/25/24 13:10 08/25/24 14:00 Temperature 36.9 C Pulse Rate 81 82 104 H Respiratory Rate 37 H Blood Pressure 105/51 L 104/55 L 123/76 Pulse Oximetry Oxygen Delivery Fraction of Inspired Oxygen 08/25/24 14:00 08/25/24 14:00 08/25/24 14:19 Temperature 36.9 C Pulse Rate 100 100 103 H Respiratory Rate 39 H Blood Pressure 117/68 Pulse Oximetry 95 92 Oxygen Delivery Mechanical Ventilation Fraction of Inspired Oxygen 30 08/25/24 14:40 08/25/24 15:00 08/25/24 15:15 Temperature Pulse Rate 118 H 124 H 115 H Respiratory Rate 40 H Blood Pressure 121/75 104/66 Pulse Oximetry Oxygen Delivery Fraction of Inspired Oxygen 08/25/24 16:00 08/25/24 16:00 08/25/24 16:00 Temperature Pulse Rate 108 H 108 H Respiratory Rate 40 H Blood Pressure Pulse Oximetry 92 Oxygen Delivery Mechanical Ventilation Fraction of Inspired Oxygen 40 08/25/24 16:00 08/25/24 16:00 08/25/24 16:00 Temperature 36.9 C Pulse Rate 108 H 108 H 108 H Respiratory Rate 39 H 39 H Blood Pressure 95/53 L 95/53 L Pulse Oximetry 92 Oxygen Delivery Fraction of Inspired Oxygen 08/25/24 17:41 08/25/24 18:00 08/25/24 18:00 Temperature Pulse Rate 103 H 108 H 100 Respiratory Rate 40 H Blood Pressure 98/58 L Pulse Oximetry 93 Oxygen Delivery Mechanical Ventilation Fraction of Inspired Oxygen 30 08/25/24 18:00 08/25/24 18:00 08/25/24 20:00 Temperature 36.9 C Pulse Rate 95 95 92 Respiratory Rate 35 H 30 H Blood Pressure 91/55 L Pulse Oximetry 96 Oxygen Delivery Fraction of Inspired Oxygen 08/25/24 20:00 08/25/24 20:00 08/25/24 20:00 Temperature Pulse Rate 92 92 Respiratory Rate 32 H Blood Pressure 93/61 L 93/61 L Pulse Oximetry 96 Oxygen Delivery Fraction of Inspired Oxygen 50 08/25/24 20:00 08/25/24 20:00 08/25/24 22:00 Temperature Pulse Rate 92 94 Respiratory Rate Blood Pressure 103/59 L Pulse Oximetry 94 Oxygen Delivery Mechanical Ventilation Fraction of Inspired Oxygen 08/25/24 22:00 08/25/24 22:00 08/25/24 22:02 Temperature Pulse Rate 94 92 93 Respiratory Rate 31 H 41 H Blood Pressure 103/59 L Pulse Oximetry 35 L Oxygen Delivery Fraction of Inspired Oxygen 08/25/24 22:02 08/25/24 22:17 08/25/24 22:17 Temperature Pulse Rate 93 92 92 Respiratory Rate 40 H 31 H Blood Pressure Pulse Oximetry 96 Oxygen Delivery Mechanical Ventilation Fraction of Inspired Oxygen 40 08/26/24 00:00 08/26/24 00:00 08/26/24 00:00 Temperature Pulse Rate 100 100 Respiratory Rate 35 H Blood Pressure 103/61 Pulse Oximetry 99 Oxygen Delivery Fraction of Inspired Oxygen 50 08/26/24 00:00 08/26/24 00:01 08/26/24 00:01 Temperature Pulse Rate 100 100 Respiratory Rate 30 H Blood Pressure 103/61 Pulse Oximetry 94 Oxygen Delivery Mechanical Ventilation Fraction of Inspired Oxygen 08/26/24 01:23 08/26/24 02:00 08/26/24 02:00 Temperature Pulse Rate 102 H 99 99 Respiratory Rate 31 H Blood Pressure 105/69 Pulse Oximetry 93 Oxygen Delivery Mechanical Ventilation Fraction of Inspired Oxygen 40 08/26/24 02:00 08/26/24 02:00 08/26/24 02:35 Temperature Pulse Rate 99 99 97 Respiratory Rate 33 H Blood Pressure 105/69 Pulse Oximetry 92 94 Oxygen Delivery Mechanical Ventilation Fraction of Inspired Oxygen 50 08/26/24 04:00 08/26/24 04:00 08/26/24 04:00 Temperature Pulse Rate 92 94 94 Respiratory Rate 31 H 34 H Blood Pressure 104/65 104/65 Pulse Oximetry 95 Oxygen Delivery Fraction of Inspired Oxygen 08/26/24 04:00 08/26/24 04:00 08/26/24 04:00 Temperature Pulse Rate 91 Respiratory Rate Blood Pressure Pulse Oximetry 94 Oxygen Delivery Mechanical Ventilation Fraction of Inspired Oxygen 50 08/26/24 05:20 08/26/24 05:30 08/26/24 06:00 Temperature Pulse Rate 117 H 97 Respiratory Rate 42 H Blood Pressure Pulse Oximetry 94 Oxygen Delivery Mechanical Ventilation Fraction of Inspired Oxygen 50 08/26/24 06:00 08/26/24 06:00 08/26/24 06:00 Temperature Pulse Rate 97 97 Respiratory Rate 36 H 36 H Blood Pressure 104/69 Pulse Oximetry 96 Oxygen Delivery Mechanical Ventilation Fraction of Inspired Oxygen 70 08/26/24 06:00 08/26/24 07:31 08/26/24 08:00 Temperature 36.9 C Pulse Rate 97 88 96 Respiratory Rate 28 H 39 H Blood Pressure 104/69 115/71 Pulse Oximetry 98 Oxygen Delivery Fraction of Inspired Oxygen 08/26/24 08:26 08/26/24 08:41 08/26/24 08:48 Temperature Pulse Rate 96 96 94 Respiratory Rate 33 H 36 H Blood Pressure Pulse Oximetry 97 Oxygen Delivery Mechanical Ventilation Fraction of Inspired Oxygen 60 08/26/24 08:48 Temperature Pulse Rate 94 Respiratory Rate 36 H Blood Pressure Pulse Oximetry Oxygen Delivery Fraction of Inspired Oxygen Intake/Output Intake/Output: Intake & Output 08/23/24 08/24/24 08/25/24 08/26/24 23:59 23:59 23:59 23:59 Intake Total 897.7 1638.2 2051.6 1030.6 Output Total 2300 100 2560 20 Balance -1402.3 1538.2 -508.4 1010.6 Meds/Results Medications: Active Medications Generic Name Dose Route Start Last Admin Trade Name Freq PRN Reason Stop Dose Admin Acetaminophen 650 mg 08/18/24 21:48 08/25/24 00:13 Acetaminophen Elixir 325 Mg/10.15 Ml Udc PO 650 mg Q4H PRN Administration Mild Pain (1-3) or Fever Dextrose 12.5 gm 08/18/24 05:53 Dextrose 50% 25 Gm/50 Ml Syringe IV PUSH PRN PRN Hypoglycemia Protocol Glucagon 1 mg 08/18/24 05:53 Glucagon For Inj 1 Mg Vial IM PRN PRN Hypoglycemia Protocol Glucose 15 gm 08/18/24 05:53 Glucose Oral Gel 15 Gm Of Glucse In 37.5 Gm Tube PO PRN PRN Hypoglycemia Protocol Heparin Sodium (Porcine) 5,500 units 08/18/24 15:05 08/18/24 23:23 Heparin Sodium 5,000 Units/Ml Vial IV PUSH 5,500 units PRN PRN Administration aPTT less than 55 seconds Heparin Sodium (Porcine) 3,000 units 08/18/24 15:05 08/23/24 10:58 Heparin Sodium 5,000 Units/Ml Vial IV PUSH 3,000 units PRN PRN Administration aPTT 55 - 70 seconds Dextrose 1,000 mls @ 100 mls/hr 08/18/24 05:53 Dextrose 5% 1,000 Ml IVPB PRN PRN Hypoglycemia Protocol Heparin Sodium/Dextrose 25,000 units in 250 mls @ 23 mls/hr 08/18/24 15:05 08/26/24 06:49 Heparin Sodium/D5w 100 Units/Ml IV CONT 2,300 units/hr .[id number] TEMI 23 mls/hr Administration Protocol 2,300 UNITS/HR Norepinephrine Bitartrate 8 mg in 250 mls @ 5.625 mls/hr 08/19/24 12:30 08/26 06:00 Levophed 8 Mg/D5w 250 Ml IV CONT 3 mcg/min .Q24H TEMI 5.63 mls/hr Titration Protocol 3 MCG/MIN Cefepime HCl 1 gm in 50 mls @ 100 mls/hr 08/20/24 21:00 08/25/24 22:25 Maxipime 1 Gm/Ns 50 Ml IVPB 08/27/24 23:59 Infused QHS TEMI Infusion Albumin Human 50 mls @ 999 mls/hr 08/21/24 06:28 Albutein IVPB 09/20/24 06:27 Q10M PRN HYPOTENSION Propofol 100 mls @ 11.052 mls/hr 08/25/24 14:25 08/26/24 08:48 Diprivan IV CONT 25 mcg/kg/min .Q9H3M TEMI 13.82 mls/hr Administration Protocol 20 MCG/KG/MIN Insulin Aspart 4 - 8 units 08/20/24 21:05 08/26/24 08:33 Insulin Aspart (*Bkc) 100 Units/Ml SUB-Q 6 units Q4HR TEMI Administration Protocol Insulin Glargine 35 units 08/26/24 09:00 08/26/24 08:33 Insulin Glargine (*Bkc) 100 Units/Ml SUB-Q 35 units QAM TEMI Administration Ipratropium [place] 0.5 mg 08/20/24 07:40 08/25/24 20:33 Ipratropium Br 0.02% Inh Soln 0.5 Mg/2.5 Ml Vial INHALATION 0.5 mg Q6HRT PRN Administration Wheezing Levalbuterol HCl 1.25 mg 08/20/24 07:40 08/25/24 20:33 Levalbuterol Neb 1.25 Mg/3 Ml INHALATION 1.25 mg Q6HRT PRN Administration Wheezing Metoclopramide HCl 10 mg 08/23/24 08:00 08/26/24 08:35 Metoclopramide Hcl 10 Mg/10 Ml Soln Udc PO 10 mg Q6H TEMI Administration Multi-Ingred Cream/Lotion/Oil/Oint 1 applic 08/18/24 09:00 08/26/24 08:35 Mineral Oil/White Petrolatum Ointment EACH EYE 1 applic Q12HR TEMI Administration Mupirocin 1 applic 08/15/24 21:00 08/26/24 08:35 Mupirocin 2% Oint 22 Gm Tube EACH NARE 1 applic Q12HR TEMI Administration Pantoprazole Sodium 40 mg 08/19/24 09:00 08/26/24 08:35 Pantoprazole Sodium Iv 40 Mg Vial IV PUSH 40 mg QAM TEMI Administration Polyethylene Glycol 17 gm 08/15/24 22:20 08/22/24 08:16 Polyethylene Glycol 3350 17 Gm Powd.Pack PO 17 gm DAILY PRN Administration constipation Sodium Chloride 10 ml 08/19/24 22:00 08/26/24 06:49 Central Line Flush IV PUSH 10 ml Q8HR TEMI Administration Sodium Chloride 20 ml 08/19/24 18:43 Central Line Flush IV PUSH PRN PRN after blood draws Vancomycin HCl 1 each 08/20/24 09:39 Vancomycin For Hemodialysis IVPB 08/26/24 23:59 PRN PRN Vancomycin Protocol Radiology Results: ITS Impressions Chest CTA 08/15/24 11:11 IMPRESSION: No pulmonary embolus. No thoracic aortic dissection. Right upper lobe infiltrate with patchy bilateral airspace disease, likely inflammatory/congestive rather than infectious. Small bilateral pleural effusions with adjacent atelectasis. Venous Doppler Study 08/18/24 14:42 IMPRESSION: 1. Bilateral [id number] deep venous thrombosis in the left and right posterior tibial veins. Findings were discussed with the ICU nurse Carlos Herrera at 2:45 PM. Renal Ultrasound 08/19/24 14:10 IMPRESSION: No hydronephrosis or renal calculi. Findings suggesting medical renal disease. Findings within the upper pole of the right kidney consistent with patient's history, as detailed above. Chest/Abdomen/Pelvis CT 08/23/24 09:58 IMPRESSION: CHEST: 1. Bilateral pneumonia which is slightly decreased compared to previous study. Bilateral pleural effusion more on the right side. ABDOMEN/PELVIS: 1. No evidence of appendicitis, diverticulitis or intestinal obstruction. 2. Bilateral tiny kidney stones. 3. Hepatomegaly. 4. No evidence of ileus seen. ADDENDUM: 08/23/24 1042 Possibility of mass in the right kidney upper pole cannot be excluded. Abdomen X-Ray 08/23/24 16:53 IMPRESSION: 1. Dobbhoff type nasoenteric feeding tube with distal tip projecting over the gastric fundus. Chest X-Ray 08/26/24 06:33 Impression: Diffuse airspace consolidation, suspicious for severe pulmonary edema versus pneumonia. Small pleural effusions. Support tubes, as above. Labs Labs: Laboratory Results - last 24 hr 08/25/24 08/25/24 08/25/24 05:49 13:36 16:53 WBC RBC Hgb Hct MCV MCH MCHC RDW Plt Count MPV APTT Puncture Site ABG pH ABG pCO2 ABG pO2 ABG PO2/FiO2 Ratio ABG HCO3 ABG O2 Saturation ABG O2 Content ABG Base Excess A-a Gradient Oxyhemoglobin Carboxyhemoglobin Methemoglobin Reduced Hemoglobin Total Hemoglobin O2 Delivery Device O2 Liters/Min Minute Volume Vent Rate Vent Mode FiO2 Tidal Volume PEEP Peak Inspir Pressure Pressure Support Sodium Potassium Chloride Carbon Dioxide Anion Gap BUN Creatinine Estim Creat Clear Calc Estimated GFR Glucose POC Capillary Glucose 214 H Calcium Phosphorus Magnesium Total Bilirubin AST ALT Alkaline Phosphatase Ammonia < 9 L Total Protein Albumin Triglycerides 204 H 08/25/24 08/25/24 08/26/24 17:07 21:53 01:36 WBC RBC Hgb Hct MCV MCH MCHC RDW Plt Count MPV APTT Puncture Site ABG pH ABG pCO2 ABG pO2 ABG PO2/FiO2 Ratio ABG HCO3 ABG O2 Saturation ABG O2 Content ABG Base Excess A-a Gradient Oxyhemoglobin Carboxyhemoglobin Methemoglobin Reduced Hemoglobin Total Hemoglobin O2 Delivery Device O2 Liters/Min Minute Volume Vent Rate Vent Mode FiO2 Tidal Volume PEEP Peak Inspir Pressure Pressure Support Sodium Potassium Chloride Carbon Dioxide Anion Gap BUN Creatinine Estim Creat Clear Calc Estimated GFR Glucose POC Capillary Glucose 340 H 282 H 331 H Calcium Phosphorus Magnesium Total Bilirubin AST ALT Alkaline Phosphatase Ammonia Total Protein Albumin Triglycerides 08/26/24 08/26/24 08/26/24 04:11 04:50 08:23 WBC 14.2 H RBC 2.97 L Hgb 7.6 L Hct 24.6 L MCV 82.8 MCH 25.6 L MCHC 30.9 L RDW 18.9 H Plt Count 206 MPV 11.6 H APTT 72.8 H Puncture Site Left brachial ABG pH 7.523 H* ABG pCO2 30.7 L ABG pO2 57.4 L ABG PO2/FiO2 Ratio 1.15 ABG HCO3 24.7 ABG O2 Saturation 92.9 L ABG O2 Content 11.4 L ABG Base Excess 2.1 A-a Gradient 264.6 Oxyhemoglobin 90.9 Carboxyhemoglobin 0.1 Methemoglobin 0.1 Reduced Hemoglobin 8.9 H Total Hemoglobin 8.9 L O2 Delivery Device Ventilator O2 Liters/Min Not Reportable Minute Volume 11.1 Vent Rate 18 Vent Mode Cmv FiO2 50 Tidal Volume 290 PEEP 8 Peak Inspir Pressure Not Reportable Pressure Support Not Reportable Sodium 136 L Potassium 4.4 Chloride 96 L Carbon Dioxide 24 Anion Gap 16 H BUN 54 H D Creatinine 3.29 H Estim Creat Clear Calc 14 Estimated GFR 13 L Glucose 289 H POC Capillary Glucose 342 H Calcium 8.5 Phosphorus 4.1 Magnesium 2.4 H Total Bilirubin 0.4 AST 51 H ALT 145 H Alkaline Phosphatase 131 H Ammonia Total Protein 7.0 Albumin 3.6 Triglycerides Quality VTE Prophylaxis VTE prophylaxis: mechanical ordered and pharmacologic ordered
--- NOTE | 2024-08-26 10:13 | PM.IMPN ---
Progress Note: A&P Assessment and Plan (1) Acute respiratory failure with hypoxia: Code(s): J96.01 - Acute respiratory failure with hypoxia Status: Acute Assessment and Plan: Acute Respiratory failure secondary to combination of pneumonia and congestive heart failure Patient now intubated and on mechanical ventilation. Ventilator settings, ABG and chest reviewed Currently on PEEP of 10 and I have wean down FiO2 to 30%. Peep is at [address] chest 08/18 MPRESSION: 1. Significant interval progression in an lobar pneumonia along with increasing small bilateral pleural effusions. Patient has elevated procalcitonin and BNP she is positive on intake output balance but her echocardiogram shows normal biventricular size and systolic function Bronchodilators Blood cultures have been sent and pending. Sputum culture is growing MRSA Urine Legionella antigen, mycoplasma pneumonia antibody and urine pneumococcal antigen negative Dialysis to remove fluid Continue vancomycin cefepime azithromycin Patient was off of sedation for 2 days and became tachypneic with a synchronous with ventilator. Patient started on propofol overnight IV will discontinue profile after dialysis session today and evaluate patient. Weaning trial will depend on improvement in patient's encephalopathy Chest x-ray reviewed and shows bilateral infiltrates and effusion (2) Congestive heart failure: Code(s): I50.9 - Heart failure, unspecified Status: Acute Assessment and Plan: See above (3) Non-ST elevation myocardial infarction (NSTEMI): Code(s): I21.4 - Non-ST elevation (NSTEMI) myocardial infarction Status: Acute Assessment and Plan: History of coronary disease status post PCI in the past now presented with elevated troponin. Cardiology following Currently on aspirin Other medications on hold due to low blood pressure Statin Hold was slightly elevated LFTs. No plan for cardiac catheterization at this time. (4) Coronary artery disease: Code(s): I25.10 - Atherosclerotic heart disease of [place] coronary artery without angina pectoris Status: Acute Assessment and Plan: See above (5) Type 2 diabetes mellitus: Code(s): E11.9 - Type 2 diabetes mellitus without complications Status: Chronic Assessment and Plan: Sliding scale insulin Increase Lantus dose Off steroid (6) Renal failure: Code(s): N19 - Unspecified kidney failure Status: Acute Assessment and Plan: Patient presented with creatinine of 1.5. Baseline creatinine unknown She has suprapubic catheter. As per son patient has had a renal tumor which was being monitored and plan was to start radiation therapy by her urology CT scan showed Subtle 2.5 cm mass at the upper pole of the right kidney consistent with provided history of renal tumor. Calcification is at the bilateral kidneys which appear linear and likely atherosclerotic although could not exclude nonobstructing nephrolithiasis. No hydronephrosis in either kidney. Diuretics were held and patient was given albumin bolus Creatinine continue to increase with poor urine output. After discussion with patient's family and career professional decision was made to initiate dialysis. 08/19 dialysis catheter was placed and patient was dialyzed 1 L fluid was removed 08/20, 08/21, 08/23 08/25 patient was dialyzed Monitor urine output electrolytes and creatinine Nephrology follow (7) Pneumonia: Code(s): J18.9 - Pneumonia, unspecified organism Status: Acute Assessment and Plan: See above (8) Kidney mass: Code(s): N28.89 - Other specified disorders of kidney and ureter Status: Acute Assessment and Plan: Patient's son reports history of kidney mass which is being monitor as it was too big to be removed without total nephrectomy. He states that patient was supposed to get radiation therapy in a month or so before she fractured her ankle. CT scan shows 2.5 cm renal mass on the right side and no hydronephrosis. No intervention at this time (9) DVT (deep venous thrombosis): Code(s): I82.409 - Acute embolism and thrombosis of unspecified deep veins of unspecified lower extremity Status: Acute Assessment and Plan: Bilateral venous Dopplers obtained due to swelling in the legs. Ultrasound showed Bilateral [id number] deep venous thrombosis in the left and right posterior tibial veins. Findings were discussed with the ICU nurse Carlos Herrera at 2:45 PM. Patient started on heparin infusion which will be continuous as long as she tolerate (10) Septic shock: Code(s): A41.9 - Sepsis, unspecified organism; R65.21 - Severe sepsis with septic shock Status: Acute Assessment and Plan: Continue Levophed. Off vasopressin (11) Ileus: Code(s): K56.7 - Ileus, unspecified Status: Acute Assessment and Plan: Patient has significant output from her OG tube. She has not been tolerating tube feeds for last 2 days. She is on Reglan Bowel sounds are decreased. KUB does not show anything significant abnormal 08/23 Dobbhoff placed tube feeds resume 08/24 will advance tube feeds to 40 mL/hour (12) Atrial fibrillation with RVR: Code(s): I48.91 - Unspecified atrial fibrillation Status: Acute Assessment and Plan: Patient went into AFib with RVR after hemodialysis session yesterday. She was started on amiodarone infusion. She has converted to sinus bradycardia this morning and I will discontinue it infusion at this time She is already on heparin infusion (13) Encephalopathy: Code(s): G93.40 - Encephalopathy, unspecified Status: Acute Assessment and Plan: Patient was on Versed and fentanyl infusion for many days. She also has renal failure which may lead to accumulate Unable to hold propofol for long periods time due to patient becoming tachypneic and developing asynchrony with the ventilator leading to desaturate I will obtain head CT since patient is on heparin infusion. Normal ammonia level Subjective Date/time seen: 08/26/24 10:13 Interval history: Remains intubated. [place] [place] [employer] discussed with pt's son about goals of care Review of Systems Review of Systems: 12 systems were reviewed and are negative except for as per HPI. ROS unobtainable: Yes unobtainable due to endotracheal tube, unobtainable due to medical condition and unobtainable due to mental status Exam Narrative: General: Pt is sedated, intubated and on mechanical ventilation Lungs/Chest: Trachea central Coarse BS B/L, No crackles or wheezing. Cardiac: RRR. Normal S1 S2. No murmurs Circulation: Feet are cold Abdomen: Present bowel sounds on today's exam. Obese. Soft. NT. ND. Extremities: Bilateral pitting edema : Butt in place Neurologic: On holding sedation patient develops tachypnea with respiratory rate going in high 30s but no response to pain. PERRL Objective Data Vital Signs Vital Signs: Vital Signs - 24 hr 08/25/24 10:15 08/25/24 10:17 08/25/24 10:30 Temperature Pulse Rate 76 72 76 Respiratory Rate Blood Pressure 106/63 101/57 L Pulse Oximetry 99 Oxygen Delivery Mechanical Ventilation Fraction of Inspired Oxygen 30 08/25/24 10:45 08/25/24 11:00 08/25/24 11:15 Temperature Pulse Rate 76 75 74 Respiratory Rate Blood Pressure 99/57 L 99/56 L 96/53 L Pulse Oximetry Oxygen Delivery Fraction of Inspired Oxygen 08/25/24 11:30 08/25/24 11:45 08/25/24 12:00 Temperature Pulse Rate 75 74 76 Respiratory Rate Blood Pressure 96/49 L 99/53 L 104/52 L Pulse Oximetry Oxygen Delivery Fraction of Inspired Oxygen 08/25/24 12:00 08/25/24 12:00 08/25/24 12:00 Temperature Pulse Rate 77 77 Respiratory Rate 28 H Blood Pressure Pulse Oximetry 99 Oxygen Delivery Mechanical Ventilation Fraction of Inspired Oxygen 30 30 08/25/24 12:00 08/25/24 12:00 08/25/24 12:00 Temperature 98.6 F Pulse Rate 71 75 77 Respiratory Rate 26 H 37 H Blood Pressure 135/98 H 135/98 H Pulse Oximetry 97 Oxygen Delivery Fraction of Inspired Oxygen 08/25/24 12:15 08/25/24 12:30 08/25/24 12:45 Temperature Pulse Rate 75 77 78 Respiratory Rate Blood Pressure 102/55 L 103/55 L 103/53 L Pulse Oximetry Oxygen Delivery Fraction of Inspired Oxygen 08/25/24 12:58 08/25/24 13:10 08/25/24 14:00 Temperature 98.4 F Pulse Rate 81 82 104 H Respiratory Rate 37 H Blood Pressure 105/51 L 104/55 L 123/76 Pulse Oximetry Oxygen Delivery Fraction of Inspired Oxygen 08/25/24 14:00 08/25/24 14:00 08/25/24 14:19 Temperature 98.4 F Pulse Rate 100 100 103 H Respiratory Rate 39 H Blood Pressure 117/68 Pulse Oximetry 95 92 Oxygen Delivery Mechanical Ventilation Fraction of Inspired Oxygen 30 08/25/24 14:40 08/25/24 15:00 08/25/24 15:15 Temperature Pulse Rate 118 H 124 H 115 H Respiratory Rate 40 H Blood Pressure 121/75 104/66 Pulse Oximetry Oxygen Delivery Fraction of Inspired Oxygen 08/25/24 16:00 08/25/24 16:00 08/25/24 16:00 Temperature Pulse Rate 108 H 108 H Respiratory Rate 40 H Blood Pressure Pulse Oximetry 92 Oxygen Delivery Mechanical Ventilation Fraction of Inspired Oxygen 40 08/25/24 16:00 08/25/24 16:00 08/25/24 16:00 Temperature 98.5 F Pulse Rate 108 H 108 H 108 H Respiratory Rate 39 H 39 H Blood Pressure 95/53 L 95/53 L Pulse Oximetry 92 Oxygen Delivery Fraction of Inspired Oxygen 08/25/24 17:41 08/25/24 18:00 08/25/24 18:00 Temperature Pulse Rate 103 H 108 H 100 Respiratory Rate 40 H Blood Pressure 98/58 L Pulse Oximetry 93 Oxygen Delivery Mechanical Ventilation Fraction of Inspired Oxygen 30 08/25/24 18:00 08/25/24 18:00 08/25/24 20:00 Temperature 98.4 F Pulse Rate 95 95 92 Respiratory Rate 35 H 30 H Blood Pressure 91/55 L Pulse Oximetry 96 Oxygen Delivery Fraction of Inspired Oxygen 08/25/24 20:00 08/25/24 20:00 08/25/24 20:00 Temperature Pulse Rate 92 92 Respiratory Rate 32 H Blood Pressure 93/61 L 93/61 L Pulse Oximetry 96 Oxygen Delivery Fraction of Inspired Oxygen 50 08/25/24 20:00 08/25/24 20:00 08/25/24 22:00 Temperature Pulse Rate 92 94 Respiratory Rate Blood Pressure 103/59 L Pulse Oximetry 94 Oxygen Delivery Mechanical Ventilation Fraction of Inspired Oxygen 08/25/24 22:00 08/25/24 22:00 08/25/24 22:02 Temperature Pulse Rate 94 92 93 Respiratory Rate 31 H 41 H Blood Pressure 103/59 L Pulse Oximetry 35 L Oxygen Delivery Fraction of Inspired Oxygen 08/25/24 22:02 08/25/24 22:17 08/25/24 22:17 Temperature Pulse Rate 93 92 92 Respiratory Rate 40 H 31 H Blood Pressure Pulse Oximetry 96 Oxygen Delivery Mechanical Ventilation Fraction of Inspired Oxygen 40 08/26/24 00:00 08/26/24 00:00 08/26/24 00:00 Temperature Pulse Rate 100 100 Respiratory Rate 35 H Blood Pressure 103/61 Pulse Oximetry 99 Oxygen Delivery Fraction of Inspired Oxygen 50 08/26/24 00:00 08/26/24 00:01 08/26/24 00:01 Temperature Pulse Rate 100 100 Respiratory Rate 30 H Blood Pressure 103/61 Pulse Oximetry 94 Oxygen Delivery Mechanical Ventilation Fraction of Inspired Oxygen 08/26/24 01:23 08/26/24 02:00 08/26/24 02:00 Temperature Pulse Rate 102 H 99 99 Respiratory Rate 31 H Blood Pressure 105/69 Pulse Oximetry 93 Oxygen Delivery Mechanical Ventilation Fraction of Inspired Oxygen 40 08/26/24 02:00 08/26/24 02:00 08/26/24 02:35 Temperature Pulse Rate 99 99 97 Respiratory Rate 33 H Blood Pressure 105/69 Pulse Oximetry 92 94 Oxygen Delivery Mechanical Ventilation Fraction of Inspired Oxygen 50 08/26/24 04:00 08/26/24 04:00 08/26/24 04:00 Temperature Pulse Rate 92 94 94 Respiratory Rate 31 H 34 H Blood Pressure 104/65 104/65 Pulse Oximetry 95 Oxygen Delivery Fraction of Inspired Oxygen 08/26/24 04:00 08/26/24 04:00 08/26/24 04:00 Temperature Pulse Rate 91 Respiratory Rate Blood Pressure Pulse Oximetry 94 Oxygen Delivery Mechanical Ventilation Fraction of Inspired Oxygen 50 08/26/24 05:20 08/26/24 05:30 08/26/24 06:00 Temperature Pulse Rate 117 H 97 Respiratory Rate 42 H Blood Pressure Pulse Oximetry 94 Oxygen Delivery Mechanical Ventilation Fraction of Inspired Oxygen 50 08/26/24 06:00 08/26/24 06:00 08/26/24 06:00 Temperature Pulse Rate 97 97 Respiratory Rate 36 H 36 H Blood Pressure 104/69 Pulse Oximetry 96 Oxygen Delivery Mechanical Ventilation Fraction of Inspired Oxygen 70 08/26/24 06:00 08/26/24 07:31 08/26/24 08:00 Temperature 98.4 F Pulse Rate 97 88 96 Respiratory Rate 28 H 39 H Blood Pressure 104/69 115/71 Pulse Oximetry 98 Oxygen Delivery Fraction of Inspired Oxygen 08/26/24 08:00 08/26/24 08:00 08/26/24 08:26 Temperature Pulse Rate 94 94 96 Respiratory Rate Blood Pressure 112/69 Pulse Oximetry 97 Oxygen Delivery Mechanical Ventilation Fraction of Inspired Oxygen 60 08/26/24 08:41 08/26/24 08:48 08/26/24 08:48 Temperature Pulse Rate 96 94 94 Respiratory Rate 33 H 36 H 36 H Blood Pressure Pulse Oximetry Oxygen Delivery Fraction of Inspired Oxygen 08/26/24 09:38 Temperature Pulse Rate 86 Respiratory Rate 31 H Blood Pressure Pulse Oximetry Oxygen Delivery Fraction of Inspired Oxygen Intake/Output Intake/Output: Intake & Output 08/23/24 08/24/24 08/25/24 08/26/24 23:59 23:59 23:59 23:59 Intake Total 897.7 1638.2 2051.6 1053.4 Output Total 2300 100 2560 20 Balance -1402.3 1538.2 -508.4 1033.4 Meds/Results Medications: Active Medications Generic Name Dose Route Start Last Admin Trade Name Freq PRN Reason Stop Dose Admin Acetaminophen 650 mg 08/18/24 21:48 08/25/24 00:13 Acetaminophen Elixir 325 Mg/10.15 Ml Udc PO 650 mg Q4H PRN Administration Mild Pain (1-3) or Fever Dextrose 12.5 gm 08/18/24 05:53 Dextrose 50% 25 Gm/50 Ml Syringe IV PUSH PRN PRN Hypoglycemia Protocol Glucagon 1 mg 08/18/24 05:53 Glucagon For Inj 1 Mg Vial IM PRN PRN Hypoglycemia Protocol Glucose 15 gm 08/18/24 05:53 Glucose Oral Gel 15 Gm Of Glucse In 37.5 Gm Tube PO PRN PRN Hypoglycemia Protocol Heparin Sodium (Porcine) 5,500 units 08/18/24 15:05 08/18/24 23:23 Heparin Sodium 5,000 Units/Ml Vial IV PUSH 5,500 units PRN PRN Administration aPTT less than 55 seconds Heparin Sodium (Porcine) 3,000 units 08/18/24 15:05 08/23/24 10:58 Heparin Sodium 5,000 Units/Ml Vial IV PUSH 3,000 units PRN PRN Administration aPTT 55 - 70 seconds Dextrose 1,000 mls @ 100 mls/hr 08/18/24 05:53 Dextrose 5% 1,000 Ml IVPB PRN PRN Hypoglycemia Protocol Heparin Sodium/Dextrose 25,000 units in 250 mls @ 23 mls/hr 08/18/24 15:05 08/26/24 06:49 Heparin Sodium/D5w 100 Units/Ml IV CONT 2,300 units/hr .[id number] TEMI 23 mls/hr Administration Protocol 2,300 UNITS/HR Norepinephrine Bitartrate 8 mg in 250 mls @ 5.625 mls/hr 08/19/24 12:30 08/26/24 08:00 Levophed 8 Mg/D5w 250 Ml IV CONT 3 mcg/min .Q24H TEMI 5.63 mls/hr Titration Protocol 3 MCG/MIN Cefepime HCl 1 gm in 50 mls @ 100 mls/hr 08/20/24 21:00 08/25/24 22:25 Maxipime 1 Gm/Ns 50 Ml IVPB 08/27/24 23:59 Infused QHS TEMI Infusion Albumin Human 50 mls @ 999 mls/hr 08/21/24 06:28 Albutein IVPB 09/20/24 06:27 Q10M PRN HYPOTENSION Propofol 100 mls @ 0 mls/hr 08/25/24 14:25 08/26/24 09:38 Diprivan IV CONT 0 mcg/kg/min .Q0M TEMI 0 mls/hr Titration Protocol Insulin Aspart 4 - 8 units 08/20/24 21:05 08/26/24 08:33 Insulin Aspart (*Bkc) 100 Units/Ml SUB-Q 6 units Q4HR TEMI Administration Protocol Insulin Glargine 35 units 08/26/24 09:00 08/26/24 08:33 Insulin Glargine (*Bkc) 100 Units/Ml SUB-Q 35 units QAM TEMI Administration Ipratropium Mcdonald 0.5 mg 08/20/24 07:40 08/25/24 20:33 Ipratropium Br 0.02% Inh Soln 0.5 Mg/2.5 Ml Vial INHALATION 0.5 mg Q6HRT PRN Administration Wheezing Levalbuterol HCl 1.25 mg 08/20/24 07:40 08/25/24 20:33 Levalbuterol Neb 1.25 Mg/3 Ml INHALATION 1.25 mg Q6HRT PRN Administration Wheezing Metoclopramide HCl 10 mg 08/23/24 08:00 08/26/24 08:35 Metoclopramide Hcl 10 Mg/10 Ml Soln Udc PO 10 mg Q6H TEMI Administration Multi-Ingred Cream/Lotion/Oil/Oint 1 applic 08/18/24 09:00 08/26/24 08:35 Mineral Oil/White Petrolatum Ointment EACH EYE 1 applic Q12HR TEMI Administration Mupirocin 1 applic 08/15/24 21:00 08/26/24 08:35 Mupirocin 2% Oint 22 Gm Tube EACH NARE 1 applic Q12HR TEMI Administration Pantoprazole Sodium 40 mg 08/19/24 09:00 08/26/24 08:35 Pantoprazole Sodium Iv 40 Mg Vial IV PUSH 40 mg QAM TEMI Administration Polyethylene Glycol 17 gm 08/15/24 22:20 08/22/24 08:16 Polyethylene Glycol 3350 17 Gm Powd.Pack PO 17 gm DAILY PRN Administration constipation Sodium Chloride 10 ml 08/19/24 22:00 08/26/24 06:49 Central Line Flush IV PUSH 10 ml Q8HR TEMI Administration Sodium Chloride 20 ml 08/19/24 18:43 Central Line Flush IV PUSH PRN PRN after blood draws Vancomycin HCl 1 each 08/20/24 09:39 Vancomycin For Hemodialysis IVPB 08/26/24 23:59 PRN PRN Vancomycin Protocol Radiology Results: ITS Impressions Chest CTA 08/15/24 11:11 IMPRESSION: No pulmonary embolus. No thoracic aortic dissection. Right upper lobe infiltrate with patchy bilateral airspace disease, likely inflammatory/congestive rather than infectious. Small bilateral pleural effusions with adjacent atelectasis. Venous Doppler Study 08/18/24 14:42 IMPRESSION: 1. Bilateral [id number] deep venous thrombosis in the left and right posterior tibial veins. Findings were discussed with the ICU nurse Carlos Herrera at 2:45 PM. Renal Ultrasound 08/19/24 14:10 IMPRESSION: No hydronephrosis or renal calculi. Findings suggesting medical renal disease. Findings within the upper pole of the right kidney consistent with patient's history, as detailed above. Chest/Abdomen/Pelvis CT 08/23/24 09:58 IMPRESSION: CHEST: 1. Bilateral pneumonia which is slightly decreased compared to previous study. Bilateral pleural effusion more on the right side. ABDOMEN/PELVIS: 1. No evidence of appendicitis, diverticulitis or intestinal obstruction. 2. Bilateral tiny kidney stones. 3. Hepatomegaly. 4. No evidence of ileus seen. ADDENDUM: 08/23/24 1042 Possibility of mass in the right kidney upper pole cannot be excluded. Abdomen X-Ray 08/23/24 16:53 IMPRESSION: 1. Dobbhoff type nasoenteric feeding tube with distal tip projecting over the gastric fundus. Chest X-Ray 08/26/24 06:33 Impression: Diffuse airspace consolidation, suspicious for severe pulmonary edema versus pneumonia. Small pleural effusions. Support tubes, as above. Head CT 08/26/24 09:32 Impression: No intracranial hemorrhage, mass, or acute infarct. Atrophy and chronic white matter changes, as above. Labs Labs: Laboratory Results - last 24 hr 08/25/24 08/25/24 08/25/24 05:49 13:36 16:53 WBC RBC Hgb Hct MCV MCH MCHC RDW Plt Count MPV APTT Puncture Site ABG pH ABG pCO2 ABG pO2 ABG PO2/FiO2 Ratio ABG HCO3 ABG O2 Saturation ABG O2 Content ABG Base Excess A-a Gradient Oxyhemoglobin Carboxyhemoglobin Methemoglobin Reduced Hemoglobin Total Hemoglobin O2 Delivery Device O2 Liters/Min Minute Volume Vent Rate Vent Mode FiO2 Tidal Volume PEEP Peak Inspir Pressure Pressure Support Sodium Potassium Chloride Carbon Dioxide Anion Gap BUN Creatinine Estim Creat Clear Calc Estimated GFR Glucose POC Capillary Glucose 214 H Calcium Phosphorus Magnesium Total Bilirubin AST ALT Alkaline Phosphatase Ammonia < 9 L Total Protein Albumin Triglycerides 204 H 08/25/24 08/25/24 08/26/24 17:07 21:53 01:36 WBC RBC Hgb Hct MCV MCH MCHC RDW Plt Count MPV APTT Puncture Site ABG pH ABG pCO2 ABG pO2 ABG PO2/FiO2 Ratio ABG HCO3 ABG O2 Saturation ABG O2 Content ABG Base Excess A-a Gradient Oxyhemoglobin Carboxyhemoglobin Methemoglobin Reduced Hemoglobin Total Hemoglobin O2 Delivery Device O2 Liters/Min Minute Volume Vent Rate Vent Mode FiO2 Tidal Volume PEEP Peak Inspir Pressure Pressure Support Sodium Potassium Chloride Carbon Dioxide Anion Gap BUN Creatinine Estim Creat Clear Calc Estimated GFR Glucose POC Capillary Glucose 340 H 282 H 331 H Calcium Phosphorus Magnesium Total Bilirubin AST ALT Alkaline Phosphatase Ammonia Total Protein Albumin Triglycerides 08/26/24 08/26/24 08/26/24 04:11 04:50 08:23 WBC 14.2 H RBC 2.97 L Hgb 7.6 L Hct 24.6 L MCV 82.8 MCH 25.6 L MCHC 30.9 L RDW 18.9 H Plt Count 206 MPV 11.6 H APTT 72.8 H Puncture Site Left brachial ABG pH 7.523 H* ABG pCO2 30.7 L ABG pO2 57.4 L ABG PO2/FiO2 Ratio 1.15 ABG HCO3 24.7 ABG O2 Saturation 92.9 L ABG O2 Content 11.4 L ABG Base Excess 2.1 A-a Gradient 264.6 Oxyhemoglobin 90.9 Carboxyhemoglobin 0.1 Methemoglobin 0.1 Reduced Hemoglobin 8.9 H Total Hemoglobin 8.9 L O2 Delivery Device Ventilator O2 Liters/Min Not Reportable Minute Volume 11.1 Vent Rate 18 Vent Mode Cmv FiO2 50 Tidal Volume 290 PEEP 8 Peak Inspir Pressure Not Reportable Pressure Support Not Reportable Sodium 136 L Potassium 4.4 Chloride 96 L Carbon Dioxide 24 Anion Gap 16 H BUN 54 H D Creatinine 3.29 H Estim Creat Clear Calc 14 Estimated GFR 13 L Glucose 289 H POC Capillary Glucose 342 H Calcium 8.5 Phosphorus 4.1 Magnesium 2.4 H Total Bilirubin 0.4 AST 51 H ALT 145 H Alkaline Phosphatase 131 H Ammonia Total Protein 7.0 Albumin 3.6 Triglycerides Quality VTE Prophylaxis VTE prophylaxis: mechanical ordered and pharmacologic ordered Hospitalist MIPS Advance Care Plan I have confirmed that the patient's Advanced Care Plan is present, code status is documented, or surrogate decision maker is listed in patient medical record.: Yes Medication Reconciliation I have utilized all available resources to obtain, update and review the patients current medications (includes all prescriptions, OTC, herbals, cannabis, and nutritional supplements).: Yes
--- NOTE | 2024-08-26 11:12 | PCFNICU ---
ICU Rounding Note: Pt current nutrition is Nepro at 40 ml/hr with Prosource BID and Gianluca BID. Last recorded weight is 92 kg, up from 88.8 kg on admit. Bowel Motility: +BM reported 08/26 Labs Reviewed: Glu 289, BUN 54, Cr 3.29, Na 136, Hct 24.6, Hgb 7.6 Meds Noted:Reglan, Protonix, NovoLog, Lantus, Heparin Skin: Deep Tissue-buttock, unstageable-left heel. Additional Notes: Patient remains on a mechanical vent. Head CT today. Tube feedings are being tolerated of Nepro at 40 ml/hr. Flush 30 ml q 4 hours. Protein Modulars of Gianluca and Prosource BID for wound healing. Propofol is currently being paused at this time and was providing additional 365 kcal. Will continue to monitor for any additional tube feeding rate change recommendations. Following daily in ICU rounds. Monitor intake, wt, labs, skin every Friday and Friday.
[2024-08-26 12:26] LABS: Glucose Point of Care 279 mg/dl (65-105)
--- NOTE | 2024-08-26 12:57 | P.PNNP_ITS ---
Progress Note: A&P Assessment and Plan (1) Acute kidney injury: Code(s): N17.9 - Acute kidney failure, unspecified Status: Acute Assessment and Plan: * suspect ANT with multifactorial etiology: * relative hypotension/hemodynamic instability * infection/early sepsis * IV diuresis/diuretics * contrast exposure (CTA chest on 08/15) * hypoxia * decline in urine output still present * evaluation to date noted: * renal u/s without obstruction (but medical renal disease) * CPK mildly elevated (but not enough to affect kidney function) * urine electrolytes prerenal * moderate proteinuria * urine eosinophils negative * HD tomorrow - fluid removal as tolerated by hemodynamics * continue to follow trend of labs and UOP to assess for potential recovery (2) Chronic kidney disease, stage 3: Code(s): N18.30 - Chronic kidney disease, stage 3 unspecified Status: Chronic Assessment and Plan: * baseline creatinine runs ~ 1.1 - 1.6mg/dl from early 2022 (from review of [facility] records) * this causes her to fluctuate between CKD stage 3A and stage 3B * presumably secondary to diabetes, hypertension, recurrent UTIs, and age- related change (3) Septic shock: Code(s): A41.9 - Sepsis, unspecified organism; R65.21 - Severe sepsis with septic shock Status: Acute Assessment and Plan: * presumably due to pneumonia * on vasopressor therapy to maintain MAP * off stress dose steroids * on antibiotics * follow culture data * follow trend of hemodynamics (4) Acute respiratory failure with hypoxia: Code(s): J96.01 - Acute respiratory failure with hypoxia Status: Acute Assessment and Plan: * due to pneumonia and pulmonary edema/CHF * on full ventilator support * further imaging of chest noted * continue current therapy (bronchodilators, antibiotics...etc) * weaning as tolerated (5) Pneumonia: Qualifiers: Laterality: bilateral Lung location: lower lobe of lung Pneumonia type: due to methicillin-resistant Staphylococcus aureus (MRSA) Qualified Code(s): J15.212 - Pneumonia due to Methicillin resistant Staphylococcus aureus Code(s): J18.9 - Pneumonia, unspecified organism Status: Acute Assessment and Plan: * suggestive by admission * blood cultures x 4 negative to date * on antibiotics (6) Congestive heart failure: Qualifiers: Heart failure type: unspecified Heart failure chronicity: acute on chronic Qualified Code(s): I50.9 - Heart failure, unspecified Code(s): I50.9 - Heart failure, unspecified Status: Acute Assessment and Plan: * imaging suggestive of pulmonary edema * Echo results (from 08/16) noted: * normal biventricular size and systolic function * no significant valvular abnormalities * was receiveing IV diuretics prior to transfer to ICU * this is on hold due to #1 and hypotension * fluid removal with dialysis as tolerated * Cardiology following (7) Non-ST elevation myocardial infarction (NSTEMI): Code(s): I21.4 - Non-ST elevation (NSTEMI) myocardial infarction Status: Acute Assessment and Plan: * elevated troponins noted * Cardiolgy folloiwing * known history of coronary disease status post stenting * suspect demand ischemia in setting of her current respiratory failure/pneumonia * s/p heparin drip x 48 hours * continue medical management (8) DVT (deep venous thrombosis): Qualifiers: DVT location: lower extremity Affected thrombotic vein of extremity: t ibial Chronicity: acute Laterality: bilateral Qualified Code(s): I82.443 - Acute embolism and thrombosis of tibial vein, bilateral Code(s): I82.409 - Acute embolism and thrombosis of unspecified deep veins of unspecified lower extremity Status: Resolved Assessment and Plan: * as noted by venous dopplers: * bilateral [id number] deep venous thrombosis in the left and right posterior tibial veins * on heparin infusion (9) Right renal mass: Code(s): N28.89 - Other specified disorders of kidney and ureter Status: Acute Assessment and Plan: * suspicious for renal cell carcinoma * following with [facility] Urology * removal would require total right nepherectomy which would be high risk given patient's age * referred to radiation oncology for possible radiation therapy (prior to admission) (10) Type 2 diabetes mellitus: Code(s): E11.9 - Type 2 diabetes mellitus without complications Status: Chronic Assessment and Plan: * follow accu-cheks * 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 L Subjective Date/time seen: 08/26/24 12:56 Interval history: Follow-up for acute kidney injury/acute renal failure on chronic kidney disease. Tolerated dialysis treatment yesterday without any issues or problems; remains intubated/sedated and on mechanical ventilation; even when off sedation, remained unresponsive; still with minimal urine output at this time; no other significant change noted since last seen. Exam 2 Narrative: General: elderly female intubated/sedated and on mechanical ventilation Heart: normal S1 and S2; no rub Lungs: coarse breath sounds throughout Abdomen: soft, nontender, nondistended, positive bowel sounds Extremities: no cyanosis or clubbing; 1+ bilateral edema Skin: warm and dry Objective Data Vital Signs Vital Signs: Vital Signs Temp Pulse Resp BP Pulse Ox O2 Del Method FiO2 08/26/24 12:00 99.0 F 89 39 H 107/66 99 Mechanical Ventilation 50 08/26/24 11:11 96 99 08/26/24 10:00 86 90/55 L 08/26/24 10:00 86 31 H Mechanical Ventilation 50 08/26/24 10:00 86 08/26/24 10:00 98.1 F 86 30 H 90/55 L 99 08/26/24 09:38 86 31 H 08/26/24 08:48 94 36 H 08/26/24 08:48 94 36 H 08/26/24 08:41 96 33 H 08/26/24 08:26 96 97 Mechanical Ventilation 60 08/26/24 08:00 60 08/26/24 08:00 Mechanical Ventilation 50 08/26/24 08:00 94 08/26/24 08:00 94 112/69 08/26/24 08:00 98.4 F 96 39 H 115/71 98 08/26/24 07:31 88 28 H 08/26/24 06:00 97 104/69 08/26/24 06:00 97 36 H 08/26/24 06:00 Mechanical Ventilation 70 08/26/24 06:00 97 36 H 104/69 96 08/26/24 06:00 97 08/26/24 05:30 117 H 42 H 08/26/24 05:20 94 Mechanical Ventilation 50 08/26/24 04:00 94 Mechanical Ventilation 08/26/24 04:00 91 08/26/24 04:00 50 08/26/24 04:00 94 34 H 104/65 95 08/26/24 04:00 94 104/65 08/26/24 04:00 92 31 H 08/26/24 02:35 97 94 Mechanical Ventilation 50 08/26/24 02:00 99 08/26/24 02:00 99 33 H 105/69 92 08/26/24 02:00 99 105/69 08/26/24 02:00 99 31 H 08/26/24 01:23 102 H 93 Mechanical Ventilation 40 08/26/24 00:01 100 103/61 08/26/24 00:01 100 30 H 08/26/24 00:00 94 Mechanical Ventilation 08/26/24 00:00 100 08/26/24 00:00 50 08/26/24 00:00 100 35 H 103/61 99 08/25/24 22:17 92 31 H 08/25/24 22:17 92 96 Mechanical Ventilation 40 08/25/24 22:02 93 40 H 08/25/24 22:02 93 41 H 08/25/24 22:00 92 08/25/24 22:00 94 31 H 103/59 L 35 L 08/25/24 22:00 94 103/59 L 08/25/24 20:00 94 Mechanical Ventilation 08/25/24 20:00 92 08/25/24 20:00 92 32 H 93/61 L 96 08/25/24 20:00 92 93/61 L 08/25/24 20:00 50 08/25/24 20:00 92 30 H 08/25/24 18:00 98.4 F 95 35 H 91/55 L 96 08/25/24 18:00 95 08/25/24 18:00 100 98/58 L 08/25/24 18:00 108 H 40 H 08/25/24 17:41 103 H 93 Mechanical Ventilation 30 Intake/Output Intake/Output: Intake & Output 08/23/24 08/24/24 08/25/24 08/26/24 23:59 23:59 23:59 23:59 Intake Total 897.7 1638.2 2051.6 1066.8 Output Total 2300 100 2560 20 Balance -1402.3 1538.2 -508.4 1046.8 Meds/Results Medications: Active Medications Generic Name Dose Route Start Last Admin Trade Name Freq PRN Reason Stop Dose Admin Acetaminophen 650 mg 08/18/24 21:48 08/25/24 00:13 Acetaminophen Elixir 325 Mg/10.15 Ml Udc PO 650 mg Q4H PRN Administration Mild Pain (1-3) or Fever Dextrose 12.5 gm 08/18/24 05:53 Dextrose 50% 25 Gm/50 Ml Syringe IV PUSH PRN PRN Hypoglycemia Protocol Glucagon 1 mg 08/18/24 05:53 Glucagon For Inj 1 Mg Vial IM PRN PRN Hypoglycemia Protocol Glucose 15 gm 08/18/24 05:53 Glucose Oral Gel 15 Gm Of Glucse In 37.5 Gm Tube PO PRN PRN Hypoglycemia Protocol Heparin Sodium (Porcine) 5,500 units 08/18/24 15:05 08/18/24 23:23 Heparin Sodium 5,000 Units/Ml Vial IV PUSH 5,500 units PRN PRN Administration aPTT less than 55 seconds Heparin Sodium (Porcine) 3,000 units 08/18/24 15:05 08/23/24 10:58 Heparin Sodium 5,000 Units/Ml Vial IV PUSH 3,000 units PRN PRN Administration aPTT 55 - 70 seconds Dextrose 1,000 mls @ 100 mls/hr 08/18/24 05:53 Dextrose 5% 1,000 Ml IVPB PRN PRN Hypoglycemia Protocol Heparin Sodium/Dextrose 25,000 units in 250 mls @ 23 mls/hr 08/18/24 15:05 08/26/24 06:49 Heparin Sodium/D5w 100 Units/Ml IV CONT 2,300 units/hr .[id number] TEMI 23 mls/hr Administration Protocol 2,300 UNITS/HR Norepinephrine Bitartrate 8 mg in 250 mls @ 5.625 mls/hr 08/19/24 12:30 08/26/24 10:00 Levophed 8 Mg/D5w 250 Ml IV CONT 3 mcg/min .Q24H TEMI 5.63 mls/hr Titration Protocol 3 MCG/MIN Cefepime HCl 1 gm in 50 mls @ 100 mls/hr 08/20/24 21:00 08/25/24 22:25 Maxipime 1 Gm/Ns 50 Ml IVPB 08/27/24 23:59 Infused QHS TEMI Infusion Albumin Human 50 mls @ 999 mls/hr 08/21/24 06:28 Albutein IVPB 09/20/24 06:27 Q10M PRN HYPOTENSION Propofol 100 mls @ 11.052 mls/hr 08/25/24 14:25 08/26/24 15:10 Diprivan IV CONT 20 mcg/kg/min .Q9H3M TEMI 11.05 mls/hr Titration Protocol 20 MCG/KG/MIN Insulin Aspart 4 - 8 units 08/20/24 21:05 08/26/24 12:45 Insulin Aspart (*Bkc) 100 Units/Ml SUB-Q 5 units Q4HR TEMI Administration Protocol Insulin Glargine 35 units 08/26/24 09:00 08/26/24 08:33 Insulin Glargine (*Bkc) 100 Units/Ml SUB-Q 35 units QAM TEMI Administration Ipratropium Oark 0.5 mg 08/20/24 07:40 08/25/24 20:33 Ipratropium Br 0.02% Inh Soln 0.5 Mg/2.5 Ml Vial INHALATION 0.5 mg Q6HRT PRN Administration Wheezing Levalbuterol HCl 1.25 mg 08/20/24 07:40 08/25/24 20:33 Levalbuterol Neb 1.25 Mg/3 Ml INHALATION 1.25 mg Q6HRT PRN Administration Wheezing Metoclopramide HCl 10 mg 08/23/24 08:00 08/26/24 14:37 Metoclopramide Hcl 10 Mg/10 Ml Soln Udc PO 10 mg Q6H TEMI Administration Multi-Ingred Cream/Lotion/Oil/Oint 1 applic 08/18/24 09:00 08/26/24 08:35 Mineral Oil/White Petrolatum Ointment EACH EYE 1 applic Q12HR TEMI Administration Mupirocin 1 applic 08/15/24 21:00 08/26/24 08:35 Mupirocin 2% Oint 22 Gm Tube EACH NARE 1 applic Q12HR TEMI Administration Pantoprazole Sodium 40 mg 08/19/24 09:00 08/26/24 08:35 Pantoprazole Sodium Iv 40 Mg Vial IV PUSH 40 mg QAM TEMI Administration Polyethylene Glycol 17 gm 08/15/24 22:20 08/22/24 08:16 Polyethylene Glycol 3350 17 Gm Powd.Pack PO 17 gm DAILY PRN Administration constipation Sodium Chloride 10 ml 08/19/24 22:00 08/26/24 14:37 Central Line Flush IV PUSH 10 ml Q8HR TEMI Administration Sodium Chloride 20 ml 08/19/24 18:43 Central Line Flush IV PUSH PRN PRN after blood draws Vancomycin HCl 1 each 08/20/24 09:39 Vancomycin For Hemodialysis IVPB 08/26/24 23:59 PRN PRN Vancomycin Protocol Radiology Results: ITS Impressions Chest CTA 08/15/24 11:11 IMPRESSION: No pulmonary embolus. No thoracic aortic dissection. Right upper lobe infiltrate with patchy bilateral airspace disease, likely inflammatory/congestive rather than infectious. Small bilateral pleural effusions with adjacent atelectasis. Venous Doppler Study 08/18/24 14:42 IMPRESSION: 1. Bilateral [id number] deep venous thrombosis in the left and right posterior tibial veins. Findings were discussed with the ICU nurse Carlos Herrera at 2:45 PM. Renal Ultrasound 08/19/24 14:10 IMPRESSION: No hydronephrosis or renal calculi. Findings suggesting medical renal disease. Findings within the upper pole of the right kidney consistent with patient's history, as detailed above. Chest/Abdomen/Pelvis CT 08/23/24 09:58 IMPRESSION: CHEST: 1. Bilateral pneumonia which is slightly decreased compared to previous study. Bilateral pleural effusion more on the right side. ABDOMEN/PELVIS: 1. No evidence of appendicitis, diverticulitis or intestinal obstruction. 2. Bilateral tiny kidney stones. 3. Hepatomegaly. 4. No evidence of ileus seen. ADDENDUM: 08/23/24 1042 Possibility of mass in the right kidney upper pole cannot be excluded. Abdomen X-Ray 08/23/24 16:53 IMPRESSION: 1. Dobbhoff type nasoenteric feeding tube with distal tip projecting over the gastric fundus. Chest X-Ray 08/26/24 06:33 Impression: Diffuse airspace consolidation, suspicious for severe pulmonary edema versus pneumonia. Small pleural effusions. Support tubes, as above. Head CT 08/26/24 09:32 Impression: No intracranial hemorrhage, mass, or acute infarct. Atrophy and chronic white matter changes, as above. Labs Labs: Laboratory Tests 08/26/24 04:11 08/26/24 04:11 Calcium 8.5 Phosphorus 4.1 Magnesium 2.4 H Total Bilirubin 0.4 AST 51 H ALT 145 H Alkaline Phosphatase 131 H Total Protein 7.0 Albumin 3.6
[2024-08-26 15:58] LABS: Glucose Point of Care 278 mg/dl (65-105)
[2024-08-26] MEDS: CEFEPIME 1 GM/NS 50 ML 1 GM/50 ML BAG IVPB (20:41)
[2024-08-26 21:00] LABS: Glucose Point of Care 243 mg/dl (65-105)
[2024-08-27] VITALS (46 sets, daily range): BP systolic 88–121; BP diastolic 42–73; PULSE 79–124; RESP 14–38; TEMP 36.3–37.3; O2SAT 93–100
[2024-08-27] MEDS: INSULIN ASPART (*BKC) 100 UNITS/ML SUB-Q ×5 (00:06→21:45)
[2024-08-27 00:24] LABS: Glucose Point of Care 230 mg/dl (65-105)
[2024-08-27] MEDS: PROPOFOL IV EMULSION 100 ML 13.82 MG IV CONT ×2 (00:25→05:59)
[2024-08-27] MEDS: METOCLOPRAMIDE HCL 10 MG/10 ML SOLN UDC PO ×4 (03:19→20:39)
[2024-08-27] MEDS: NOREPINEPHRINE 8 MG/D5W 250 ML 8 MG/250 ML BAG 3.75 MG IV CONT (04:01)
[2024-08-27] MEDS: HEPARIN SOD/D5W 100 UNITS/ML 25,000 UNITS/250 ML BAG 23 UNITS IV CONT ×2 (04:02→15:17)
[2024-08-27 04:53] LABS: Alveolar/Arterial O2 Gradient 112.7 mmHg; Base Excess ABG -1.6 mEq/l (+/-2.0); Carboxyhemoglobin 0.2 % THb (0-2.0); Fractional Inspired Oxygen 30 %; HCO3 ABG 21.7 mEq/l (22.0-26.0); Methemoglobin ABG 0.1 %THb (0-1.5); Oxygen Content ABG 13.7 %vol (16.0-22.0); Oxygen Saturation ABG 93.5 % (95.0-100.0); Oxyhemoglobin 91.7 % THb (90.0-100.0); PCO2 ABG 31.9 mmHg (35.0-45.0); PO2 ABG 63.7 mmHg (80.0-100.0); PO2 FiO2 Ratio Arterial Blood 2.12 %; Total Hemoglobin 10.6 g/dL (12.0-18.0); pH ABG 7.451 (7.350-7.450)
[2024-08-27 04:56] LABS: Arterial Blood Gas PEEP 10 cmH2O; Arterial Blood Gas Vent Mode CMV; Arterial Blood Gas Ventilator rate 18 /MIN; Device VENTILATOR; Modified Allen's Test Pass; Site Drawn RIGHT RADIAL
[2024-08-27 04:57] LABS: Arterial Blood Gas Tidal Volume 320 ml
[2024-08-27] MEDS: CENTRAL LINE FLUSH 10 ML IV PUSH ×3 (05:29→21:45)
[2024-08-27 05:32] LABS: Hematocrit 23.4 % (37.0-47.0); Hemoglobin 7.3 g/dL (12.0-15.0); Mean Corpuscular HGB Conc 31.2 g/dl (32-36); Mean Corpuscular Hemoglobin 26.3 pg (26-34); Mean Corpuscular Volume 84.2 fl (80-100); Mean Platelet Volume 11.9 fl (7.4-10.4); Platelet Count Result 239 k/mm3 (150-375); Red Blood Count 2.78 M/mm3 (4.2-5.4); Red Cell Distribution Width 18.8 % (11.5-14.5); White Blood Count 13.3 K/mm3 (4.5-10.0)
[2024-08-27 05:48] LABS: Alanine Aminotransferase 102 U/L (6-35); Albumin Level 3.4 g/dL (3.5-5.1); Alkaline Phosphatase 114 U/L (38-126); Anion Gap 14 mmol/L (4-12); Aspartate Amino Transferase 42 U/L (14-36); Bilirubin,Total 0.3 mg/dL (0.2-1.3); Blood Urea Nitrogen 79 mg/dL (7-17); Calcium 8.5 mg/dL (8.4-10.2); Carbon Dioxide 24 mmol/L (22-30); Chloride 93 mmol/L (98-107); Estimated CRCL calculation 10 ml/min; Estimated Glomerular Filt Rate 9; Glucose 293 mg/dL (65-110); Magnesium 2.6 mg/dL (1.6-2.3); Potassium 4.8 mmol/L (3.4-5.0); Sodium 131 mmol/L (137-145); Triglycerides 217 mg/dL (<150)
[2024-08-27 05:51] LABS: Partial Thromboplastin Time 92.7 Seconds (22.3-36.8)
[2024-08-27] MEDS: PANTOPRAZOLE SODIUM IV 40 MG VIAL IV PUSH (08:36)
[2024-08-27] MEDS: MUPIROCIN 2% OINT 22 GM TUBE 1 APPLIC EACH NARE ×2 (08:36→21:45)
[2024-08-27] MEDS: MINERAL OIL/WHITE PETROLATUM OINTMENT 1 APPLIC EACH EYE ×2 (08:36→21:45)
[2024-08-27] MEDS: INSULIN GLARGINE (*BKC) 100 UNITS/ML 50 UNITS SUB-Q (08:36)
[2024-08-27] MEDS: polyethylene glycoL 3350 17 GM POWD.PACK PO (08:42)
[2024-08-27 08:56] LABS: Glucose Point of Care 244 mg/dl (65-105)
[2024-08-27] MEDS: ALBUMIN HUMAN 25% 12.5 GM/50ML 100 ML 999 GM (09:36)
[2024-08-27] MEDS: EPOETIN ALFA-EPBX 20,000 UNITS/ML VIAL 20000 UNITS IV PUSH (09:55)
--- NOTE | 2024-08-27 10:53 | P.PNNP_ITS ---
Progress Note: A&P Assessment and Plan (1) Acute kidney injury: Code(s): N17.9 - Acute kidney failure, unspecified Status: Acute Assessment and Plan: * suspect ANT with multifactorial etiology: * relative hypotension/hemodynamic instability * infection/early sepsis * IV diuresis/diuretics * contrast exposure (CTA chest on 08/15) * hypoxia * decline in urine output still present * evaluation to date noted: * renal u/s without obstruction (but medical renal disease) * CPK mildly elevated (but not enough to affect kidney function) * urine electrolytes prerenal * moderate proteinuria * urine eosinophils negative * HD today - fluid removal as tolerated by hemodynamics * continue to follow trend of labs and UOP to assess for potential recovery (2) Chronic kidney disease, stage 3: Code(s): N18.30 - Chronic kidney disease, stage 3 unspecified Status: Chronic Assessment and Plan: * baseline creatinine runs ~ 1.1 - 1.6mg/dl from early 2022 (from review of [facility] records) * this causes her to fluctuate between CKD stage 3A and stage 3B * presumably secondary to diabetes, hypertension, recurrent UTIs, and age- related change (3) Septic shock: Code(s): A41.9 - Sepsis, unspecified organism; R65.21 - Severe sepsis with septic shock Status: Acute Assessment and Plan: * presumably due to pneumonia * on vasopressor therapy to maintain MAP * off stress dose steroids * on antibiotics * follow culture data * follow trend of hemodynamics (4) Acute respiratory failure with hypoxia: Code(s): J96.01 - Acute respiratory failure with hypoxia Status: Acute Assessment and Plan: * due to pneumonia and pulmonary edema/CHF * on full ventilator support * further imaging of chest noted * continue current therapy (bronchodilators, antibiotics...etc) * weaning as tolerated (5) Pneumonia: Qualifiers: Laterality: bilateral Lung location: lower lobe of lung Pneumonia type: due to methicillin-resistant Staphylococcus aureus (MRSA) Qualified Code(s): J15.212 - Pneumonia due to Methicillin resistant Staphylococcus aureus Code(s): J18.9 - Pneumonia, unspecified organism Status: Acute Assessment and Plan: * suggestive by admission * blood cultures x 4 negative to date * on antibiotics (6) Congestive heart failure: Qualifiers: Heart failure type: unspecified Heart failure chronicity: acute on chronic Qualified Code(s): I50.9 - Heart failure, unspecified Code(s): I50.9 - Heart failure, unspecified Status: Acute Assessment and Plan: * imaging suggestive of pulmonary edema * Echo results (from 08/16) noted: * normal biventricular size and systolic function * no significant valvular abnormalities * was receiveing IV diuretics prior to transfer to ICU * this is on hold due to #1 and hypotension * fluid removal with dialysis as tolerated * Cardiology following (7) Non-ST elevation myocardial infarction (NSTEMI): Code(s): I21.4 - Non-ST elevation (NSTEMI) myocardial infarction Status: Acute Assessment and Plan: * elevated troponins noted * Cardiolgy folloiwing * known history of coronary disease status post stenting * suspect demand ischemia in setting of her current respiratory failure/pneumonia * s/p heparin drip x 48 hours * continue medical management (8) DVT (deep venous thrombosis): Qualifiers: DVT location: lower extremity Affected thrombotic vein of extremity: t ibial Chronicity: acute Laterality: bilateral Qualified Code(s): I82.443 - Acute embolism and thrombosis of tibial vein, bilateral Code(s): I82.409 - Acute embolism and thrombosis of unspecified deep veins of unspecified lower extremity Status: Resolved Assessment and Plan: * as noted by venous dopplers: * bilateral [id number] deep venous thrombosis in the left and right posterior tibial veins * on heparin infusion (9) Right renal mass: Code(s): N28.89 - Other specified disorders of kidney and ureter Status: Acute Assessment and Plan: * suspicious for renal cell carcinoma * following with [facility] Urology * removal would require total right nepherectomy which would be high risk given patient's age * referred to radiation oncology for possible radiation therapy (prior to admission) (10) Type 2 diabetes mellitus: Code(s): E11.9 - Type 2 diabetes mellitus without complications Status: Chronic Assessment and Plan: * follow accu-cheks * glycemic control per office correspondent Will continue to follow. L Subjective Date/time seen: 08/27/24 10:53 Interval history: Follow-up for acute kidney injury/acute renal failure on chronic kidney disease. Tolerating dialysis treatment at the time of my visit (seen on HD at 10:42AM); remains intubated/sedated and on mechanical ventilation; still requiring low dose levophed to maintain her BP/MAP; urine output remains low at this time; tolerating tube feeds without any issues/problems; no apparent distress noted. Exam 2 Narrative: General: elderly female intubated/sedated and on mechanical ventilation Heart: normal S1 and S2; no rub Lungs: coarse breath sounds throughout Abdomen: soft, nontender, nondistended, positive bowel sounds Extremities: no cyanosis or clubbing; 1+ bilateral edema Skin: warm and intact Objective Data Vital Signs Vital Signs: Vital Signs Temp Pulse Resp BP Pulse Ox O2 Del Method FiO2 08/27/24 10:45 87 108/64 08/27/24 10:30 87 105/62 08/27/24 10:15 87 35 H 08/27/24 10:15 87 97/58 L 08/27/24 10:00 87 93/42 L 08/27/24 10:00 87 33 H 08/27/24 10:00 84 08/27/24 10:00 88 36 H 94/56 L 98 08/27/24 10:00 86 93/57 L 08/27/24 10:00 88 94/56 L 08/27/24 09:45 87 97/61 L 08/27/24 09:29 88 98/57 L 08/27/24 09:15 98.9 F 89 26 H 101/60 98 08/27/24 08:25 86 97 Mechanical Ventilation 40 08/27/24 08:00 40 08/27/24 08:00 84 08/27/24 08:00 97 Mechanical Ventilation 40 08/27/24 08:00 87 100/60 08/27/24 08:00 85 26 H 08/27/24 08:00 97.9 F 85 22 H 100/60 98 08/27/24 06:00 92 103/63 08/27/24 06:00 92 24 H 103/63 98 08/27/24 06:00 92 08/27/24 05:59 92 26 H 08/27/24 05:59 92 26 H 08/27/24 05:04 96 Mechanical Ventilation 40 08/27/24 04:49 99 93 Mechanical Ventilation 30 08/27/24 04:01 99 121/73 08/27/24 04:01 99 121/73 08/27/24 04:00 101 H 30 H 08/27/24 04:00 30 08/27/24 04:00 100 04/11/25 04:00 99 Mechanical Ventilation 30 08/27/24 04:00 97.7 F 101 H 37 H 121/73 99 08/27/24 02:00 87 102/61 08/27/24 02:00 87 30 H 08/27/24 02:00 87 30 H 102/61 97 08/27/24 02:00 87 08/27/24 01:54 87 97 Mechanical Ventilation 30 08/27/24 00:25 85 28 H 08/27/24 00:25 85 28 H 08/27/24 00:00 85 30 H 08/27/24 00:00 85 94/55 L 08/27/24 00:00 99.1 F 85 30 H 94/55 L 97 08/27/24 00:00 30 08/27/24 00:00 84 08/27/24 00:00 98 Mechanical Ventilation 30 08/26/24 23:52 97 Mechanical Ventilation 30 08/26/24 22:46 89 99 Mechanical Ventilation 40 08/26/24 22:00 87 102/57 L 08/26/24 22:00 87 35 H 08/26/24 22:00 87 35 H 102/57 L 99 08/26/24 22:00 87 08/26/24 20:11 84 99 Mechanical Ventilation 40 08/26/24 20:00 85 100/57 L 08/26/24 20:00 85 27 H 08/26/24 20:00 98.6 F 85 27 H 100/57 L 99 08/26/24 20:00 40 08/26/24 20:00 84 08/26/24 20:00 99 Mechanical Ventilation 40 08/26/24 18:30 98 28 H 08/26/24 18:30 98 28 H 08/26/24 18:00 89 08/26/24 18:00 87 30 H 108/60 98 08/26/24 17:01 88 98 Mechanical Ventilation 40 08/26/24 16:48 92 100/58 L 08/26/24 16:47 90 32 H 08/26/24 16:00 50 08/26/24 16:00 90 08/26/24 16:00 99 Mechanical Ventilation 50 08/26/24 16:00 99.1 F 90 33 H 103/63 98 Intake/Output Intake/Output: Intake & Output 08/24/24 08/25/24 08/26/24 08/27/24 23:59 23:59 23:59 23:59 Intake Total 1638.2 2051.6 2055.0 1353.1 Output Total 100 2560 45 3087 Balance 1538.2 -508.4 2010.0 -1733.9 Meds/Results Medications: Active Medications Generic Name Dose Route Start Last Admin Trade Name Freq PRN Reason Stop Dose Admin Acetaminophen 650 mg 08/18/24 21:48 08/25/24 00:13 Acetaminophen Elixir 325 Mg/10.15 Ml Udc PO 650 mg Q4H PRN Administration Mild Pain (1-3) or Fever Dextrose 12.5 gm 08/18/24 05:53 Dextrose 50% 25 Gm/50 Ml Syringe IV PUSH PRN PRN Hypoglycemia Protocol Glucagon 1 mg 08/18/24 05:53 Glucagon For Inj 1 Mg Vial IM PRN PRN Hypoglycemia Protocol Glucose 15 gm 08/18/24 05:53 Glucose Oral Gel 15 Gm Of Glucse In 37.5 Gm Tube PO PRN PRN Hypoglycemia Protocol Heparin Sodium (Porcine) 5,500 units 08/18/24 15:05 08/18/24 23:23 Heparin Sodium 5,000 Units/Ml Vial IV PUSH 5,500 units PRN PRN Administration aPTT less than 55 seconds Heparin Sodium (Porcine) 3,000 units 08/18/24 15:05 08/23/24 10:58 Heparin Sodium 5,000 Units/Ml Vial IV PUSH 3,000 units PRN PRN Administration aPTT 55 - 70 seconds Dextrose 1,000 mls @ 100 mls/hr 08/18/24 05:53 Dextrose 5% 1,000 Ml IVPB PRN PRN Hypoglycemia Protocol Heparin Sodium/Dextrose 25,000 units in 250 mls @ 23 mls/hr 08/18/24 15:05 08/27/24 15:17 Heparin Sodium/D5w 100 Units/Ml IV CONT 2,300 units/hr .[id number] TEMI 23 mls/hr Administration Protocol 2,300 UNITS/HR Norepinephrine Bitartrate 8 mg in 250 mls @ 5.625 mls/hr 08/19/24 12:30 08/27/24 14:00 Levophed 8 Mg/D5w 250 Ml IV CONT 3 mcg/min .Q24H TEMI 5.63 mls/hr Titration Protocol 3 MCG/MIN Cefepime HCl 1 gm in 50 mls @ 100 mls/hr 08/20/24 21:00 08/26/24 22:28 Maxipime 1 Gm/Ns 50 Ml IVPB 08/27/24 23:59 Infused QHS TEMI Infusion Albumin Human 50 mls @ 999 mls/hr 08/21/24 06:28 Albutein IVPB 09/20/24 06:27 Q10M PRN HYPOTENSION Propofol 100 mls @ 22.104 mls/hr 08/25/24 14:25 08/27/24 14:00 Diprivan IV CONT 40 mcg/kg/min .Q4H32M TEMI 22.1 mls/hr Titration Protocol 40 MCG/KG/MIN Insulin Aspart 4 - 8 units 08/20/24 21:05 08/27/24 12:38 Insulin Aspart (*Bkc) 100 Units/Ml SUB-Q Not Given Q4HR [facility] Protocol Insulin Glargine 50 units 08/27/24 09:00 08/27/24 08:36 Insulin Glargine (*Bkc) 100 Units/Ml SUB-Q 50 units QAM TEMI Administration Ipratropium Delia 0.5 mg 08/20/24 07:40 08/25/24 20:33 Ipratropium Br 0.02% Inh Soln 0.5 Mg/2.5 Ml Vial INHALATION 0.5 mg Q6HRT PRN Administration Wheezing Levalbuterol HCl 1.25 mg 08/20/24 07:40 08/25/24 20:33 Levalbuterol Neb 1.25 Mg/3 Ml INHALATION 1.25 mg Q6HRT PRN Administration Wheezing Metoclopramide HCl 10 mg 08/23/24 08:00 08/27/24 13:42 Metoclopramide Hcl 10 Mg/10 Ml Soln Udc PO 10 mg Q6H TEMI Administration Multi-Ingred Cream/Lotion/Oil/Oint 1 applic 08/18/24 09:00 08/27/24 08:36 Mineral Oil/White Petrolatum Ointment EACH EYE 1 applic Q12HR TEMI Administration Mupirocin 1 applic 08/15/24 21:00 08/27/24 08:36 Mupirocin 2% Oint 22 Gm Tube EACH NARE 1 applic Q12HR TEMI Administration Pantoprazole Sodium 40 mg 08/19/24 09:00 08/27/24 08:36 Pantoprazole Sodium Iv 40 Mg Vial IV PUSH 40 mg QAM TEMI Administration Polyethylene Glycol 17 gm 08/15/24 22:20 08/27/24 08:42 Polyethylene Glycol 3350 17 Gm Powd.Pack PO 17 gm DAILY PRN Administration constipation Sodium Chloride 10 ml 08/19/24 22:00 08/27/24 13:42 Central Line Flush IV PUSH 10 ml Q8HR TEMI Administration Sodium Chloride 20 ml 08/19/24 18:43 Central Line Flush IV PUSH PRN PRN after blood draws Radiology Results: ITS Impressions Chest CTA 08/15/24 11:11 IMPRESSION: No pulmonary embolus. No thoracic aortic dissection. Right upper lobe infiltrate with patchy bilateral airspace disease, likely inflammatory/congestive rather than infectious. Small bilateral pleural effusions with adjacent atelectasis. Venous Doppler Study 08/18/24 14:42 IMPRESSION: 1. Bilateral [id number] deep venous thrombosis in the left and right posterior tibial veins. Findings were discussed with the ICU nurse Carlos Herrera at 2:45 PM. Renal Ultrasound 08/19/24 14:10 IMPRESSION: No hydronephrosis or renal calculi. Findings suggesting medical renal disease. Findings within the upper pole of the right kidney consistent with patient's history, as detailed above. Chest/Abdomen/Pelvis CT 08/23/24 09:58 IMPRESSION: CHEST: 1. Bilateral pneumonia which is slightly decreased compared to previous study. Bilateral pleural effusion more on the right side. ABDOMEN/PELVIS: 1. No evidence of appendicitis, diverticulitis or intestinal obstruction. 2. Bilateral tiny kidney stones. 3. Hepatomegaly. 4. No evidence of ileus seen. ADDENDUM: 08/23/24 1042 Possibility of mass in the right kidney upper pole cannot be excluded. Abdomen X-Ray 08/23/24 16:53 IMPRESSION: 1. Dobbhoff type nasoenteric feeding tube with distal tip projecting over the gastric fundus. Head CT 08/26/24 09:32 Impression: No intracranial hemorrhage, mass, or acute infarct. Atrophy and chronic white matter changes, as above. Chest X-Ray 08/27/24 08:30 IMPRESSION: 1. Interval decrease in diffuse bilateral pulmonary edema, pneumonia, small bilateral pleural effusions or some combination thereof. Labs Labs: Laboratory Tests 08/27/24 05:27 08/27/24 05:27 Calcium 8.5 Phosphorus 6.0 H Magnesium 2.6 H Total Bilirubin 0.3 AST 42 H ALT 102 H Alkaline Phosphatase 114 Total Protein 7.0 Albumin 3.4 L Triglycerides 217 H
--- NOTE | 2024-08-27 10:55 | PCNFU ---
Nutrition Follow-Up Complete: Increased nutrient needs related to altered skin integrity as evidenced by noted pressure injuries Goal: PO intake 50% or greater for meals and supplements Patient is not meeting goal. New goal: meet estimated nutritional needs. Pt current nutrition is Nepro at 40 ml/hr with Prosource BID and Gianluca BID. Last recorded weight is 89.9 kg, up from 88.8 kg on admit. Bowel Motility: last reported BM 08/26 Labs Reviewed: Mg 2.6, bun 79, Na 131, Hct 23.4, Hgb 7.3 Meds Noted:Propofol at 25 zcek=144 kcal, Lantus, NovoLog, Protonix, Levophed, Heparin. Skin: Deep Tissue-buttock, Unstageable PU-left heel Additional Notes: Patient remains on a mechanical vent. Dialysis today. Tube feedings being tolerated of Nepro at 40 ml/hr. Flush 30 ml q 4 hours. Protein Modular given BID for wound healing. Total Nutrition: 2269 kcal/117 gm protein/640 ml water. Patient is meeting 100% kcal needs at 25 kcal/kg and 100% protein needs at 1.2-1.4 gm protein. Propofol is being titrated. Discussions regarding possible PEG/Trach. Monitor in ICU rounds and reassessing every Friday and Friday.
--- NOTE | 2024-08-27 11:14 | P.PNINT_ITS ---
Progress Note: A&P Assessment and Plan (1) Acute respiratory failure with hypoxia: Code(s): J96.01 - Acute respiratory failure with hypoxia Status: Acute Assessment and Plan: Acute Respiratory failure secondary to combination of pneumonia and congestive heart failure 08/18: Intubated Ventilator settings, ABG and chest reviewed Currently on PEEP of 10 and an FiO2 of 40% Repeat CT chest 08/18 MPRESSION: 1. Significant interval progression in an lobar pneumonia along with increasing small bilateral pleural effusions. Patient has elevated procalcitonin and BNP she is positive on intake output balance but her echocardiogram shows normal biventricular size and systolic function Continue Bronchodilators 08/16/2024: Blood cultures negative x2. 08/21/2024: Sputum culture growing MRSA Urine Legionella antigen, mycoplasma pneumonia antibody and urine pneumococcal antigen negative Continue Dialysis to remove fluid, discussed with Nephrology Status post vancomycin cefepime azithromycin Patient was off of sedation for 2 days and became tachypneic with asynchronous with ventilator. Patient started on propofol infusion will discontinue, will give sedation vacation after dialysis Weaning trial will depend on improvement in patient's encephalopathy Chest x-ray and ABGs reviewed -will discuss with family regarding tracheostomy and PEG tube placement (2) Congestive heart failure: Code(s): I50.9 - Heart failure, unspecified Status: Acute Assessment and Plan: See above (3) Non-ST elevation myocardial infarction (NSTEMI): Code(s): I21.4 - Non-ST elevation (NSTEMI) myocardial infarction Status: Acute Assessment and Plan: History of coronary disease status post PCI in the past now presented with elevated troponin. -Cardiology following -Off ASA as Hb dropped -Other heart medications on hold due to low blood pressure -Statin Hold was slightly elevated LFTs. -No plan for cardiac catheterization at this time. (4) Coronary artery disease: Code(s): I25.10 - Atherosclerotic heart disease of [place] coronary artery without angina pectoris Status: Acute Assessment and Plan: See above (5) Type 2 diabetes mellitus: Code(s): E11.9 - Type 2 diabetes mellitus without complications Status: Chronic Assessment and Plan: Sliding scale insulin Increase Lantus Off steroid (6) Renal failure: Code(s): N19 - Unspecified kidney failure Status: Acute Assessment and Plan: Patient presented with creatinine of 1.5. Baseline creatinine unknown She has suprapubic catheter. As per son patient has had a renal tumor which was being monitored and plan was to start radiation therapy by her urology CT scan showed Subtle 2.5 cm mass at the upper pole of the right kidney consistent with provided history of renal tumor. Calcification is at the bilateral kidneys which appear linear and likely atherosclerotic although could not exclude nonobstructing nephrolithiasis. No hydronephrosis in either kidney. Diuretics were held and patient was given albumin bolus Creatinine continue to increase with poor urine output. After discussion with patient's family and electronic engineering draftsperson decision was made to initiate dialysis. 08/19 dialysis catheter was placed and patient was dialyzed 1 L fluid was removed 08/20, 08/21, 08/23 08/25 patient was dialyzed Monitor urine output electrolytes and creatinine Dialysis per Nephrology (7) Pneumonia: Code(s): J18.9 - Pneumonia, unspecified organism Status: Acute Assessment and Plan: See above (8) Kidney mass: Code(s): N28.89 - Other specified disorders of kidney and ureter Status: Acute Assessment and Plan: Patient's son reports history of kidney mass which is being monitored as it was too big to be removed without total nephrectomy. He states that patient was supposed to get radiation therapy in a month or so before she fractured her ankle. CT scan shows 2.5 cm renal mass on the right side and no hydronephrosis. No intervention at this time (9) DVT (deep venous thrombosis): Code(s): I82.409 - Acute embolism and thrombosis of unspecified deep veins of unspecified lower extremity Status: Acute Assessment and Plan: Bilateral venous Dopplers obtained due to swelling in the legs. Ultrasound showed Bilateral [id number] deep venous thrombosis in the left and right posterior tibial veins. Findings were discussed with the ICU nurse Carlos Herrera at 2:45 PM. Patient started on heparin infusion which will be continuous as long as she can tolerate (10) Septic shock: Code(s): A41.9 - Sepsis, unspecified organism; R65.21 - Severe sepsis with septic shock Status: Acute Assessment and Plan: Continue Levophed. Off vasopressin (11) Ileus: Code(s): K56.7 - Ileus, unspecified Status: Acute Assessment and Plan: Patient has significant output from her OG tube. She has not been tolerating tube feeds. She is on Reglan Bowel sounds are decreased. KUB does not show a nything significant abnormal 08/23 Dobbhoff placed tube feeds resume 08/24 will advance tube feeds to 40 mL/hour -patient tolerating tube feeds with minimal residual, positive bowel movement (12) Atrial fibrillation with RVR: Code(s): I48.91 - Unspecified atrial fibrillation Status: Acute Assessment and Plan: Patient went into AFib with RVR after hemodialysis.. She was started on amiodarone infusion. She has converted to sinus bradycardia, amiodarone was discontinued on 08/26/2024 She is already on heparin infusion (13) Encephalopathy: Code(s): G93.40 - Encephalopathy, unspecified Status: Acute Assessment and Plan: Patient was on Versed and fentanyl infusion for many days. She also has renal failure which may lead to accumulation -started on propofol infusion -off propofol patient becomes tachypneic and dyssynchronous with the ventilator leading her to desaturate -08/26/2024: CT scan of the brain No intracranial hemorrhage, mass, or acute infarct.Atrophy and chronic white matter changes. -ammonia levels within normal limits Plan DVT prophylaxis -heparin infusion Stress ulcer prophylaxis - PPI Nutrition -continue tube feeds Code Status - Full Code 08/18 Dr Crawford and updated patient's son and his at bedside I answered all his questions. 08/19 Dr Crawford also met with patient's both sons as they wanted to proceed with hemodialysis. 08/22 Dr Crawford met with patient's 2 sons and updated them with patient's status including continued respiratory failure, shock, new issues of AFib with RVR and. I also updated them with treatment plan and answered all the questions. Total Critical Care Time - 35 minutes Due to a high probability of clinically significant, life threatening deterioration, the patient required my highest level of preparedness to intervene emergently and I personally spent this critical care time directly and personally managing the patient. This critical care time included obtaining a history; examining the patient; pulse oximetry; ordering and review of studies; arranging urgent treatment with development of a management plan; evaluation of patient's response to treatment; frequent reassessment; and discussions with other providers. It was exclusive of separately billable procedures and treating other patients and teaching time. Please see Assessment and Plan section and the rest of the note for further information on patient assessment and treatment. This dictation may have been done utilizing a voice recognition system. Attempts have been made to correct errors. However, there may be uncorrected grammatical, spelling, and recognitions errors present. Subjective Date/time seen: 08/27/24 11:14 Interval history: 08/18: Intubated 08/19 temporary dialysis catheter placed patient was dialyzed 4 vent into AFib with RVR. Converted to sinus Steve with amiodarone 08/23 Dobbhoff tube inserted 08/27/2024: Patient seen and examined the ICU, remains intubated, on CMV mode of ventilation, peep of 10, 30% FiO2. Sedated with propofol infusion, does not open her eyes or follow simple commands. Afebrile, decreased urine output, remains on Levophed at 2 mcg/min. Hyperglycemic, tolerating tube feeds, positive bowel movement. Hemoglobin is stable Review of Systems Review of Systems: ROS unobtainable: Yes unobtainable due to endotracheal tube, unobtainable due to medical condition and unobtainable due to mental status Exam Narrative: General: Pt is sedated, intubated and on mechanical ventilation HEENT: Pupils equal and reactive, sclera is clear, ETT in place Lungs/Chest: Trachea central Coarse BS B/L, No crackles or wheezing. Cardiac: RRR. Normal S1 S2. No murmurs Abdomen: Present bowel sounds on today's exam. Obese. Soft. NT. ND. Extremities: Bilateral pitting edema, palpable pedal pulse : Butt in place Neurologic: Currently intubated, sedated, does not open her eyes or follow simple commands. Objective Data Vital Signs Vital Signs: Vital Signs - 24 hr 08/26/24 12:00 08/26/24 12:00 08/26/24 12:00 Temperature 99.0 F Pulse Rate 98 90 89 Respiratory Rate 38 H 39 H Blood Pressure 107/66 Pulse Oximetry 99 Oxygen Delivery Fraction of Inspired Oxygen 08/26/24 12:00 08/26/24 12:00 08/26/24 13:41 Temperature Pulse Rate 94 Respiratory Rate Blood Pressure Pulse Oximetry 99 99 Oxygen Delivery Mechanical Ventilation Mechanical Ventilation Fraction of Inspired Oxygen 50 50 40 08/26/24 14:00 08/26/24 14:00 08/26/24 14:45 Temperature 98.6 F Pulse Rate 95 95 104 H Respiratory Rate 40 H 41 H Blood Pressure 109/62 Pulse Oximetry 98 Oxygen Delivery Fraction of Inspired Oxygen 08/26/24 14:55 08/26/24 15:05 08/26/24 15:10 Temperature Pulse Rate 102 H 100 100 Respiratory Rate 42 H 38 H 27 H Blood Pressure Pulse Oximetry Oxygen Delivery Fraction of Inspired Oxygen 08/26/24 16:00 08/26/24 16:00 08/26/24 16:00 Temperature 99.1 F Pulse Rate 90 90 Respiratory Rate 33 H Blood Pressure 103/63 Pulse Oximetry 98 99 Oxygen Delivery Mechanical Ventilation Fraction of Inspired Oxygen 50 08/26/24 16:00 08/26/24 16:47 08/26/24 16:48 Temperature Pulse Rate 90 92 Respiratory Rate 32 H Blood Pressure 100/58 L Pulse Oximetry Oxygen Delivery Fraction of Inspired Oxygen 50 08/26/24 17:01 08/26/24 18:00 08/26/24 18:00 Temperature Pulse Rate 88 87 89 Respiratory Rate 30 H Blood Pressure 108/60 Pulse Oximetry 98 98 Oxygen Delivery Mechanical Ventilation Fraction of Inspired Oxygen 40 08/26/24 18:30 08/26/24 18:30 08/26/24 20:00 Temperature Pulse Rate 98 98 Respiratory Rate 28 H 28 H Blood Pressure Pulse Oximetry 99 Oxygen Delivery Mechanical Ventilation Fraction of Inspired Oxygen 40 08/26/24 20:00 08/26/24 20:00 08/26/24 20:00 Temperature 98.6 F Pulse Rate 84 85 Respiratory Rate 27 H Blood Pressure 100/57 L Pulse Oximetry 99 Oxygen Delivery Fraction of Inspired Oxygen 40 08/26/24 20:00 08/26/24 20:00 08/26/24 20:11 Temperature Pulse Rate 85 85 84 Respiratory Rate 27 H Blood Pressure 100/57 L Pulse Oximetry 99 Oxygen Delivery Mechanical Ventilation Fraction of Inspired Oxygen 40 08/26/24 22:00 08/26/24 22:00 08/26/24 22:00 Temperature Pulse Rate 87 87 87 Respiratory Rate 35 H 35 H Blood Pressure 102/57 L Pulse Oximetry 99 Oxygen Delivery Fraction of Inspired Oxygen 08/26/24 22:00 08/26/24 22:46 08/26/24 23:52 Temperature Pulse Rate 87 89 Respiratory Rate Blood Pressure 102/57 L Pulse Oximetry 99 97 Oxygen Delivery Mechanical Ventilation Mechanical Ventilation Fraction of Inspired Oxygen 40 30 08/27/24 00:00 08/27/24 00:00 08/27/24 00:00 Temperature Pulse Rate 84 Respiratory Rate Blood Pressure Pulse Oximetry 98 Oxygen Delivery Mechanical Ventilation Fraction of Inspired Oxygen 30 30 08/27/24 00:00 08/27/24 00:00 08/27/24 00:00 Temperature 99.1 F Pulse Rate 85 85 85 Respiratory Rate 30 H 30 H Blood Pressure 94/55 L 94/55 L Pulse Oximetry 97 Oxygen Delivery Fraction of Inspired Oxygen 08/27/24 00:25 08/27/24 00:25 08/27/24 01:54 Temperature Pulse Rate 85 85 87 Respiratory Rate 28 H 28 H Blood Pressure Pulse Oximetry 97 Oxygen Delivery Mechanical Ventilation Fraction of Inspired Oxygen 30 08/27/24 02:00 08/27/24 02:00 08/27/24 02:00 Temperature Pulse Rate 87 87 87 Respiratory Rate 30 H 30 H Blood Pressure 102/61 Pulse Oximetry 97 Oxygen Delivery Fraction of Inspired Oxygen 08/27/24 02:00 08/27/24 04:00 08/27/24 04:00 Temperature 97.7 F Pulse Rate 87 101 H Respiratory Rate 37 H Blood Pressure 102/61 121/73 Pulse Oximetry 99 99 Oxygen Delivery Mechanical Ventilation Fraction of Inspired Oxygen 30 08/27/24 04:00 08/27/24 04:00 08/27/24 04:00 Temperature Pulse Rate 100 101 H Respiratory Rate 30 H Blood Pressure Pulse Oximetry Oxygen Delivery Fraction of Inspired Oxygen 30 08/27/24 04:01 08/27/24 04:01 08/27/24 04:49 Temperature Pulse Rate 99 99 99 Respiratory Rate Blood Pressure 121/73 121/73 Pulse Oximetry 93 Oxygen Delivery Mechanical Ventilation Fraction of Inspired Oxygen 30 08/27/24 05:04 08/27/24 05:59 08/27/24 05:59 Temperature Pulse Rate 92 92 Respiratory Rate 26 H 26 H Blood Pressure Pulse Oximetry 96 Oxygen Delivery Mechanical Ventilation Fraction of Inspired Oxygen 40 08/27/24 06:00 08/27/24 06:00 08/27/24 06:00 Temperature Pulse Rate 92 92 92 Respiratory Rate 24 H Blood Pressure 103/63 103/63 Pulse Oximetry 98 Oxygen Delivery Fraction of Inspired Oxygen 08/27/24 08:00 08/27/24 08:00 08/27/24 08:00 Temperature 97.9 F Pulse Rate 85 85 87 Respiratory Rate 22 H 26 H Blood Pressure 100/60 100/60 Pulse Oximetry 98 Oxygen Delivery Fraction of Inspired Oxygen 08/27/24 08:00 08/27/24 08:00 08/27/24 08:00 Temperature Pulse Rate 84 Respiratory Rate Blood Pressure Pulse Oximetry 97 Oxygen Delivery Mechanical Ventilation Fraction of Inspired Oxygen 40 40 08/27/24 08:25 08/27/24 09:15 08/27/24 09:29 Temperature 98.9 F Pulse Rate 86 89 88 Respiratory Rate 26 H Blood Pressure 101/60 98/57 L Pulse Oximetry 97 98 Oxygen Delivery Mechanical Ventilation Fraction of Inspired Oxygen 40 08/27/24 09:45 08/27/24 10:00 08/27/24 10:00 Temperature Pulse Rate 87 88 86 Respiratory Rate Blood Pressure 97/61 L 94/56 L 93/57 L Pulse Oximetry Oxygen Delivery Fraction of Inspired Oxygen 08/27/24 10:00 08/27/24 10:15 08/27/24 10:30 Temperature Pulse Rate 88 87 87 Respiratory Rate 36 H Blood Pressure 94/56 L 97/58 L 105/62 Pulse Oximetry 98 Oxygen Delivery Fraction of Inspired Oxygen 08/27/24 10:45 08/27/24 11:00 Temperature Pulse Rate 87 86 Respiratory Rate Blood Pressure 108/64 104/59 L Pulse Oximetry Oxygen Delivery Fraction of Inspired Oxygen Intake/Output Intake/Output: Intake & Output 08/24/24 08/25/24 08/26/24 08/27/24 23:59 23:59 23:59 23:59 Intake Total 1638.2 2051.6 2055.0 1001.6 Output Total 100 2560 45 25 Balance 1538.2 -508.4 2010.0 976.6 Meds/Results Medications: Active Medications Generic Name Dose Route Start Last Admin Trade Name Freq PRN Reason Stop Dose Admin Acetaminophen 650 mg 08/18/24 21:48 08/25/24 00:13 Acetaminophen Elixir 325 Mg/10.15 Ml Udc PO 650 mg Q4H PRN Administration Mild Pain (1-3) or Fever Dextrose 12.5 gm 08/18/24 05:53 Dextrose 50% 25 Gm/50 Ml Syringe IV PUSH PRN PRN Hypoglycemia Protocol Glucagon 1 mg 08/18/24 05:53 Glucagon For Inj 1 Mg Vial IM PRN PRN Hypoglycemia Protocol Glucose 15 gm 08/18/24 05:53 Glucose Oral Gel 15 Gm Of Glucse In 37.5 Gm Tube PO PRN PRN Hypoglycemia Protocol Heparin Sodium (Porcine) 5,500 units 08/18/24 15:05 08/18/24 23:23 Heparin Sodium 5,000 Units/Ml Vial IV PUSH 5,500 units PRN PRN Administration aPTT less than 55 seconds Heparin Sodium (Porcine) 3,000 units 08/18/24 15:05 08/23/24 10:58 Heparin Sodium 5,000 Units/Ml Vial IV PUSH 3,000 units PRN PRN Administration aPTT 55 - 70 seconds Dextrose 1,000 mls @ 100 mls/hr 08/18/24 05:53 Dextrose 5% 1,000 Ml IVPB PRN PRN Hypoglycemia Protocol Heparin Sodium/Dextrose 25,000 units in 250 mls @ 23 mls/hr 08/18/24 15:05 08/27/24 05:52 Heparin Sodium/D5w 100 Units/Ml IV CONT 2,300 units/hr .[id number] TEMI 23 mls/hr Titration Protocol 2,300 UNITS/HR Norepinephrine Bitartrate 8 mg in 250 mls @ 1.875 mls/hr 08/19/24 12:30 08/27/24 08:00 Levophed 8 Mg/D5w 250 Ml IV CONT 1 mcg/min .Q24H TEMI 1.88 mls/hr Titration Protocol 1 MCG/MIN Cefepime HCl 1 gm in 50 mls @ 100 mls/hr 08/20/24 21:00 08/26/24 22:28 Maxipime 1 Gm/Ns 50 Ml IVPB 08/27/24 23:59 Infused QHS TEMI Infusion Albumin Human 50 mls @ 999 mls/hr 08/21/24 06:28 Albutein IVPB 09/20/24 06:27 Q10M PRN HYPOTENSION Propofol 100 mls @ 13.815 mls/hr 08/25/24 14:25 08/27/24 08:00 Diprivan IV CONT 25 mcg/kg/min .Q7H15M TEMI 13.82 mls/hr Titration Protocol 25 MCG/KG/MIN Insulin Aspart 4 - 8 units 08/20/24 21:05 08/27/24 08:35 Insulin Aspart (*Bkc) 100 Units/Ml SUB-Q 4 units Q4HR TEMI Administration Protocol Insulin Glargine 50 units 08/27/24 09:00 08/27/24 08:36 Insulin Glargine (*Bkc) 100 Units/Ml SUB-Q 50 units QAM TEMI Administration Ipratropium [place] 0.5 mg 08/20/24 07:40 08/25/24 20:33 Ipratropium Br 0.02% Inh Soln 0.5 Mg/2.5 Ml Vial INHALATION 0.5 mg Q6HRT PRN Administration Wheezing Levalbuterol HCl 1.25 mg 08/20/24 07:40 08/25/24 20:33 Levalbuterol Neb 1.25 Mg/3 Ml INHALATION 1.25 mg Q6HRT PRN Administration Wheezing Metoclopramide HCl 10 mg 08/23/24 08:00 08/27/24 08:35 Metoclopramide Hcl 10 Mg/10 Ml Soln Udc PO 10 mg Q6H TEMI Administration Multi-Ingred Cream/Lotion/Oil/Oint 1 applic 08/18/24 09:00 08/27/24 08:36 Mineral Oil/White Petrolatum Ointment EACH EYE 1 applic Q12HR TEMI Administration Mupirocin 1 applic 08/15/24 21:00 08/27/24 08:36 Mupirocin 2% Oint 22 Gm Tube EACH NARE 1 applic Q12HR TEMI Administration Pantoprazole Sodium 40 mg 08/19/24 09:00 08/27/24 08:36 Pantoprazole Sodium Iv 40 Mg Vial IV PUSH 40 mg QAM TEMI Administration Polyethylene Glycol 17 gm 08/15/24 22:20 08/27/24 08:42 Polyethylene Glycol 3350 17 Gm Powd.Pack PO 17 gm DAILY PRN Administration constipation Sodium Chloride 10 ml 08/19/24 22:00 08/27/24 05:29 Central Line Flush IV PUSH 10 ml Q8HR TEMI Administration Sodium Chloride 20 ml 08/19/24 18:43 Central Line Flush IV PUSH PRN PRN after blood draws Radiology Results: ITS Impressions Chest CTA 08/15/24 11:11 IMPRESSION: No pulmonary embolus. No thoracic aortic dissection. Right upper lobe infiltrate with patchy bilateral airspace disease, likely inflammatory/congestive rather than infectious. Small bilateral pleural effusions with adjacent atelectasis. Venous Doppler Study 08/18/24 14:42 IMPRESSION: 1. Bilateral [id number] deep venous thrombosis in the left and right posterior tibial veins. Findings were discussed with the ICU nurse Carlos Herrera at 2:45 PM. Renal Ultrasound 08/19/24 14:10 IMPRESSION: No hydronephrosis or renal calculi. Findings suggesting medical renal disease. Findings within the upper pole of the right kidney consistent with patient's history, as detailed above. Chest/Abdomen/Pelvis CT 08/23/24 09:58 IMPRESSION: CHEST: 1. Bilateral pneumonia which is slightly decreased compared to previous study. Bilateral pleural effusion more on the right side. ABDOMEN/PELVIS: 1. No evidence of appendicitis, diverticulitis or intestinal obstruction. 2. Bilateral tiny kidney stones. 3. Hepatomegaly. 4. No evidence of ileus seen. ADDENDUM: 08/23/24 1042 Possibility of mass in the right kidney upper pole cannot be excluded. Abdomen X-Ray 08/23/24 16:53 IMPRESSION: 1. Dobbhoff type nasoenteric feeding tube with distal tip projecting over the gastric fundus. Head CT 08/26/24 09:32 Impression: No intracranial hemorrhage, mass, or acute infarct. Atrophy and chronic white matter changes, as above. Chest X-Ray 08/27/24 08:30 IMPRESSION: 1. Interval decrease in diffuse bilateral pulmonary edema, pneumonia, small bilateral pleural effusions or some combination thereof. Labs Labs: Laboratory Results - last 24 hr 08/26/24 08/26/24 08/26/24 12:23 15:56 20:42 WBC RBC Hgb Hct MCV MCH MCHC RDW Plt Count MPV APTT Puncture Site ABG pH ABG pCO2 ABG pO2 ABG PO2/FiO2 Ratio ABG HCO3 ABG O2 Saturation ABG O2 Content ABG Base Excess A-a Gradient Oxyhemoglobin Carboxyhemoglobin Methemoglobin Reduced Hemoglobin Total Hemoglobin O2 Delivery Device O2 Liters/Min Minute Volume Vent Rate Vent Mode FiO2 Tidal Volume PEEP Peak Inspir Pressure Pressure Support Sodium Potassium Chloride Carbon Dioxide Anion Gap BUN Creatinine Estim Creat Clear Calc Estimated GFR Glucose POC Capillary Glucose 279 H 278 H 243 H Calcium Phosphorus Magnesium Total Bilirubin AST ALT Alkaline Phosphatase Total Protein Albumin Triglycerides 08/26/24 08/27/24 08/27/24 23:58 04:49 05:27 WBC 13.3 H RBC 2.78 L Hgb 7.3 L Hct 23.4 L MCV 84.2 MCH 26.3 MCHC 31.2 L RDW 18.8 H Plt Count 239 MPV 11.9 H APTT 92.7 H Puncture Site Right radial ABG pH 7.451 H ABG pCO2 31.9 L ABG pO2 63.7 L ABG PO2/FiO2 Ratio 2.12 ABG HCO3 21.7 L ABG O2 Saturation 93.5 L ABG O2 Content 13.7 L ABG Base Excess -1.6 A-a Gradient 112.7 Oxyhemoglobin 91.7 Carboxyhemoglobin 0.2 Methemoglobin 0.1 Reduced Hemoglobin 8.0 H Total Hemoglobin 10.6 L O2 Delivery Device Ventilator O2 Liters/Min Not Reportable Minute Volume Not Reportable Vent Rate 18 Vent Mode Cmv FiO2 30 Tidal Volume 320 PEEP 10 Peak Inspir Pressure Not Reportable Pressure Support Not Reportable Sodium 131 L Potassium 4.8 Chloride 93 L Carbon Dioxide 24 Anion Gap 14 H BUN 79 H D Creatinine 4.55 H Estim Creat Clear Calc 10 Estimated GFR 9 L Glucose 293 H POC Capillary Glucose 230 H Calcium 8.5 Phosphorus 6.0 H Magnesium 2.6 H Total Bilirubin 0.3 AST 42 H ALT 102 H Alkaline Phosphatase 114 Total Protein 7.0 Albumin 3.4 L Triglycerides 217 H 08/27/24 08:33 WBC RBC Hgb Hct MCV MCH MCHC RDW Plt Count MPV APTT Puncture Site ABG pH ABG pCO2 ABG pO2 ABG PO2/FiO2 Ratio ABG HCO3 ABG O2 Saturation ABG O2 Content ABG Base Excess A-a Gradient Oxyhemoglobin Carboxyhemoglobin Methemoglobin Reduced Hemoglobin Total Hemoglobin O2 Delivery Device O2 Liters/Min Minute Volume Vent Rate Vent Mode FiO2 Tidal Volume PEEP Peak Inspir Pressure Pressure Support Sodium Potassium Chloride Carbon Dioxide Anion Gap BUN Creatinine Estim Creat Clear Calc Estimated GFR Glucose POC Capillary Glucose 244 H Calcium Phosphorus Magnesium Total Bilirubin AST ALT Alkaline Phosphatase Total Protein Albumin Triglycerides Quality VTE Prophylaxis VTE prophylaxis: mechanical ordered and pharmacologic ordered
[2024-08-27] MEDS: PROPOFOL IV EMULSION 100 ML 22.1 MG IV CONT ×3 (12:00→20:42)
[2024-08-27 12:19] LABS: Glucose Point of Care 172 mg/dl (65-105)
[2024-08-27 16:51] LABS: Glucose Point of Care 260 mg/dl (65-105)
[2024-08-27 19:54] LABS: Glucose Point of Care 230 mg/dl (65-105)
[2024-08-27] MEDS: CEFEPIME 1 GM/NS 50 ML 1 GM/50 ML BAG IVPB (20:39)
[2024-08-28] VITALS (67 sets, daily range): BP systolic 83–109; BP diastolic 50–70; PULSE 79–108; RESP 18–40; TEMP 36.4–38.8; O2SAT 94–99
[2024-08-28] MEDS: METOCLOPRAMIDE HCL 10 MG/10 ML SOLN UDC PO ×4 (01:10→20:02)
[2024-08-28] MEDS: ACETAMINOPHEN ELIXIR 325 MG/10.15 ML UDC 650 MG PO (01:10)
[2024-08-28] MEDS: PROPOFOL IV EMULSION 100 ML 22.1 MG IV CONT ×3 (01:12→08:35)
[2024-08-28] MEDS: INSULIN ASPART (*BKC) 100 UNITS/ML SUB-Q ×5 (01:12→21:17)
[2024-08-28 01:23] LABS: Glucose Point of Care 303 mg/dl (65-105)
[2024-08-28] MEDS: HEPARIN SOD/D5W 100 UNITS/ML 25,000 UNITS/250 ML BAG 23 UNITS IV CONT (02:10)
[2024-08-28 05:32] LABS: Alveolar/Arterial O2 Gradient 119.4 mmHg; Base Excess ABG 0.9 mEq/l (+/-2.0); Carboxyhemoglobin 0.5 % THb (0-2.0); Fractional Inspired Oxygen 35 %; HCO3 ABG 25.1 mEq/l (22.0-26.0); Methemoglobin ABG 0.2 %THb (0-1.5); Oxygen Content ABG 10.2 %vol (16.0-22.0); Oxygen Saturation ABG 96.8 % (95.0-100.0); Oxyhemoglobin 96.1 % THb (90.0-100.0); PCO2 ABG 38.2 mmHg (35.0-45.0); PO2 ABG 85.7 mmHg (80.0-100.0); PO2 FiO2 Ratio Arterial Blood 2.45 %; Reduced Hemoglobin 3.2 %THb (0-5.0); pH ABG 7.436 (7.350-7.450)
[2024-08-28 05:38] LABS: Arterial Blood Gas Ventilator rate 18 /MIN; Device VENTILATOR; Modified Allen's Test Pass; Site Drawn LEFT RADIAL; Total Hemoglobin 7.4 g/dL (12.0-18.0)
[2024-08-28 05:39] LABS: Arterial Blood Gas PEEP 10 cmH2O; Arterial Blood Gas Tidal Volume 320 ml; Arterial Blood Gas Vent Mode CMV
[2024-08-28 06:42] LABS: Hematocrit 23.2 % (37.0-47.0); Mean Corpuscular HGB Conc 29.7 g/dl (32-36); Mean Corpuscular Hemoglobin 25.5 pg (26-34); Mean Corpuscular Volume 85.6 fl (80-100); Mean Platelet Volume 11.9 fl (7.4-10.4); Platelet Count Result 225 k/mm3 (150-375); Red Blood Count 2.71 M/mm3 (4.2-5.4); Red Cell Distribution Width 19.3 % (11.5-14.5); White Blood Count 11.7 K/mm3 (4.5-10.0)
[2024-08-28] MEDS: CENTRAL LINE FLUSH 10 ML IV PUSH ×3 (06:46→21:15)
[2024-08-28 06:52] LABS: Alanine Aminotransferase 69 U/L (6-35); Albumin Level 3.5 g/dL (3.5-5.1); Alkaline Phosphatase 107 U/L (38-126); Anion Gap 16 mmol/L (4-12); Aspartate Amino Transferase 25 U/L (14-36); Bilirubin,Total 0.3 mg/dL (0.2-1.3); Blood Urea Nitrogen 82 mg/dL (7-17); Calcium 9.2 mg/dL (8.4-10.2); Carbon Dioxide 25 mmol/L (22-30); Chloride 92 mmol/L (98-107); Estimated CRCL calculation 12 ml/min; Estimated Glomerular Filt Rate 12; Glucose 316 mg/dL (65-110); Magnesium 2.6 mg/dL (1.6-2.3); Phosphorus 4.8 mg/dL (2.5-4.5); Potassium 4.1 mmol/L (3.4-5.0); Sodium 133 mmol/L (137-145)
[2024-08-28 06:55] LABS: Glucose Point of Care 311 mg/dl (65-105)
[2024-08-28 07:06] LABS: Partial Thromboplastin Time 98.7 Seconds (22.3-36.8)
[2024-08-28 07:27] LABS: Hemoglobin 6.9 g/dL (12.0-15.0)
[2024-08-28 08:05] LABS: Band Neutrophils Percent 3 % (0-6); Lymphocytes Absolute Manual 2.22 K/mm3 (1.1-4.5); Metamyelocytes Percent 1 %; Monocytes Absolute Manual 0.23 K/mm3 (0.1-0.90); Monocytes Percent Manual 2 % (3-9); Neutrophils Absolute Manual 9.12 K/mm3 (1.7-7.2); Neutrophils Percent Manual 75 % (46-73); Platelet Estimate Adequate (Adequate); Schistocytes None Seen; Total Cells Counted 100
[2024-08-28 08:06] LABS: Anisocytosis 1+; Hypochromasia 1+; Large Platelets Present
[2024-08-28] MEDS: polyethylene glycoL 3350 17 GM POWD.PACK PO (08:19)
[2024-08-28] MEDS: PANTOPRAZOLE SODIUM IV 40 MG VIAL IV PUSH ×2 (08:19→20:02)
[2024-08-28] MEDS: MINERAL OIL/WHITE PETROLATUM OINTMENT 1 APPLIC EACH EYE ×2 (08:19→20:04)
[2024-08-28] MEDS: INSULIN GLARGINE (*BKC) 100 UNITS/ML 70 UNITS SUB-Q (08:20)
[2024-08-28] MEDS: MUPIROCIN 2% OINT 22 GM TUBE 1 APPLIC EACH NARE (08:23)
[2024-08-28 08:53] LABS: Glucose Point of Care 314 mg/dl (65-105)
--- NOTE | 2024-08-28 09:19 | P.PNINT_ITS ---
Progress Note: A&P Assessment and Plan (1) Anemia: Code(s): D64.9 - Anemia, unspecified Status: Acute Assessment and Plan: 08/28: Patient dropped her hemoglobin to 6.9 this morning -patient is on heparin infusion for her bilateral lower extremity DVTs -have asked the bedside RN to hold heparin infusion -surgery has been consulted for IVC placement -have ordered 1 unit of packed RBC along with type and screen (2) Acute respiratory failure with hypoxia: Code(s): J96.01 - Acute respiratory failure with hypoxia Status: Acute Assessment and Plan: Acute Respiratory failure secondary to combination of pneumonia and congestive heart failure 08/18: Intubated Repeat CT chest 08/18 MPRESSION: 1. Significant interval progression in an lobar pneumonia along with increasing small bilateral pleural effusions. Patient has elevated procalcitonin and BNP she is positive on intake output balance but her echocardiogram shows normal biventricular size and systolic function Continue Bronchodilators 08/16/2024: Blood cultures negative x2. 08/21/2024: Sputum culture growing MRSA Urine Legionella antigen, mycoplasma pneumonia antibody and urine pneumococcal antigen negative Continue Dialysis to remove fluid, discussed with Nephrology Status post vancomycin cefepime azithromycin (antibiotics ended on 08/27/2024) Patient was off of sedation for 2 days and became tachypneic with asynchronous with ventilator. Patient started on propofol infusion will discontinue, will give sedation vacation after dialysis Weaning trial will depend on improvement in patient's encephalopathy Chest x-ray and ABGs reviewed -will discuss with family regarding tracheostomy and PEG tube placement -Ventilator settings, ABG and chest reviewed -Currently on PEEP of 10 and an FiO2 of 35%, decreased PEEP to 8 -patient has significant amount of secretions which are thick, will add Mucomyst and Pulmozyme nebulizer (3) Congestive heart failure: Code(s): I50.9 - Heart failure, unspecified Status: Acute Assessment and Plan: See above (4) Non-ST elevation myocardial infarction (NSTEMI): Code(s): I21.4 - Non-ST elevation (NSTEMI) myocardial infarction Status: Acute Assessment and Plan: History of coronary disease status post PCI in the past now presented with elevated troponin. -Cardiology following -Off ASA as Hb dropped -Other heart medications on hold due to low blood pressure -Statin Hold was slightly elevated LFTs. -No plan for cardiac catheterization at this time. (5) Coronary artery disease: Code(s): I25.10 - Atherosclerotic heart disease of [place] coronary artery without angina pectoris Status: Acute Assessment and Plan: See above (6) Type 2 diabetes mellitus: Code(s): E11.9 - Type 2 diabetes mellitus without complications Status: Chronic Assessment and Plan: Sliding scale insulin Increase Lantus Off steroid (7) Renal failure: Code(s): N19 - Unspecified kidney failure Status: Acute Assessment and Plan: Patient presented with creatinine of 1.5. Baseline creatinine unknown She has suprapubic catheter. As per son patient has had a renal tumor which was being monitored and plan was to start radiation therapy by her urology CT scan showed Subtle 2.5 cm mass at the upper pole of the right kidney consistent with provided history of renal tumor. Calcification is at the bilateral kidneys which appear linear and likely atherosclerotic although could not exclude nonobstructing nephrolithiasis. No hydronephrosis in either kidney. Diuretics were held and patient was given albumin bolus Creatinine continue to increase with poor urine output. After discussion with patient's family and managed care specialist decision was made to initiate dialysis. 08/19 dialysis catheter was placed and patient was dialyzed 1 L fluid was removed 08/20, 08/21, 08/23 08/25 patient was dialyzed Monitor urine output electrolytes and creatinine Dialysis per Nephrology (8) Pneumonia: Code(s): J18.9 - Pneumonia, unspecified organism Status: Acute Assessment and Plan: See above (9) Kidney mass: Code(s): N28.89 - Other specified disorders of kidney and ureter Status: Acute Assessment and Plan: Patient's son reports history of kidney mass which is being monitored as it was too big to be removed without total nephrectomy. He states that patient was supposed to get radiation therapy in a month or so before she fractured her ankle. CT scan shows 2.5 cm renal mass on the right side and no hydronephrosis. No intervention at this time (10) DVT (deep venous thrombosis): Code(s): I82.409 - Acute embolism and thrombosis of unspecified deep veins of unspecified lower extremity Status: Acute Assessment and Plan: Bilateral venous Dopplers obtained due to swelling in the legs. Ultrasound showed Bilateral vcnoo-wjz-gziu deep venous thrombosis in the left and right posterior tibial veins. Findings were discussed with the ICU nurse Carlos Herrera at 2:45 PM. Patient started on heparin infusion which will be continuous as long as she can tolerate 08/28/2024: Patient dropped hemoglobin to 6.9, on heparin infusion for DVTs bilaterally -have asked the bedside RN to hold heparin infusion Surgery has been consulted for IVC filter placement (11) Septic shock: Code(s): A41.9 - Sepsis, unspecified organism; R65.21 - Severe sepsis with septic shock Status: Acute Assessment and Plan: Continue Levophed. Off vasopressin -hypotension likely multifactorial, pneumonia, sepsis, sedation medications -currently Levophed at 1 mcg, maintain SBP > 100 mmHg -status post antibiotics (12) Ileus: Code(s): K56.7 - Ileus, unspecified Status: Acute Assessment and Plan: RESOLVED Patient has significant output from her OG tube. She has not been tolerating tube feeds. She is on Reglan Bowel sounds are decreased. KUB does not show anything significant abnormal 08/23 Dobbhoff placed tube feeds resume 08/24 will advance tube feeds to 40 mL/hour -patient tolerating tube feeds with minimal residual, positive bowel movement (13) Atrial fibrillation with RVR: Code(s): I48.91 - Unspecified atrial fibrillation Status: Acute Assessment and Plan: Patient went into AFib with RVR after hemodialysis.. She was started on amiodarone infusion. She has converted to sinus bradycardia, amiodarone was discontinued on 08/26/2024 Currently off Harriet infusion due to anemia (14) Encephalopathy: Code(s): G93.40 - Encephalopathy, unspecified Status: Acute Assessment and Plan: Patient was on Versed and fentanyl infusion for many days. She also has renal failure which may lead to accumulation -started on propofol infusion -off propofol patient becomes tachypneic and dyssynchronous with the ventilator leading her to desaturate -08/26/2024: CT scan of the brain No intracranial hemorrhage, mass, or acute infarct.Atrophy and chronic white matter changes. -ammonia levels within normal limits Plan DVT prophylaxis -off heparin infusion due to anemia Stress ulcer prophylaxis -increase Protonix to q.12 hours Nutrition -continue tube feeds Code Status - Full Code / Dr Crawford and updated patient's son and his at bedside I answered all his questions. 08/19 Dr Crawford also met with patient's both sons as they wanted to proceed with hemodialysis. 4/6 Dr Crawford met with patient's 2 sons and updated them with patient's status including continued respiratory failure, shock, new issues of AFib with RVR and. I also updated them with treatment plan and answered all the questions. Total Critical Care Time - 36 minutes Due to a high probability of clinically significant, life threatening deterioration, the patient required my highest level of preparedness to intervene emergently and I personally spent this critical care time directly and personally managing the patient. This critical care time included obtaining a history; examining the patient; pulse oximetry; ordering and review of studies; arranging urgent treatment with development of a management plan; evaluation of patient's response to treatment; frequent reassessment; and discussions with other providers. It was exclusive of separately billable procedures and treating other patients and teaching time. Please see Assessment and Plan section and the rest of the note for further information on patient assessment and treatment. This dictation may have been done utilizing a voice recognition system. Attempts have been made to correct errors. However, there may be uncorrected grammatical, spelling, and recognitions errors present. Subjective Date/time seen: 08/28/24 09:19 Interval history: 08/18: Intubated 08/19 temporary dialysis catheter placed patient was dialyzed 08/21 vent into AFib with RVR. Converted to sinus Steve with amiodarone 08/23 Dobbhoff tube inserted 08/28/2024: Patient seen and examined the ICU, remains intubated, on CMV mode of ventilation, peep of 10, 35% FiO2. Sedated with propofol infusion, does not open her eyes or follow simple commands. Afebrile, decreased urine output, remains on Levophed at 1 mcg/min. Hyperglycemic, tolerating tube feeds, positive bowel movement. Hemoglobin is stable. Patient dropped her hemoglobin to 6.9 this morning, I have asked the bedside RN to hold the heparin infusion. Review of Systems Review of Systems: ROS unobtainable: Yes unobtainable due to endotracheal tube, unobtainable due to medical condition and unobtainable due to mental status Exam Narrative: General: Pt is sedated, intubated and on mechanical ventilation HEENT: Pupils equal and reactive, sclera is clear, ETT in place Lungs/Chest: Trachea central Coarse BS B/L, No crackles or wheezing. Cardiac: RRR. Normal S1 S2. No murmurs Abdomen: Present bowel sounds on today's exam. Obese. Soft. NT. ND. Extremities: Bilateral pitting edema, palpable pedal pulse : Butt in place Neurologic: Currently intubated, sedated, does not open her eyes or follow simple commands. Objective Data Vital Signs Vital Signs: Vital Signs - 24 hr 08/27/24 09:29 08/27/24 09:45 08/27/24 10:00 Temperature Pulse Rate 88 87 88 Respiratory Rate Blood Pressure 98/57 L 97/61 L 94/56 L Pulse Oximetry Oxygen Delivery Fraction of Inspired Oxygen 08/27/24 10:00 08/27/24 10:00 08/27/24 10:00 Temperature Pulse Rate 86 88 84 Respiratory Rate 36 H Blood Pressure 93/57 L 94/56 L Pulse Oximetry 98 Oxygen Delivery Fraction of Inspired Oxygen 08/27/24 10:00 08/27/24 10:00 08/27/24 10:15 Temperature Pulse Rate 87 87 87 Respiratory Rate 33 H Blood Pressure 93/42 L 97/58 L Pulse Oximetry Oxygen Delivery Fraction of Inspired Oxygen 08/27/24 10:15 08/27/24 10:30 08/27/24 10:45 Temperature Pulse Rate 87 87 87 Respiratory Rate 35 H Blood Pressure 105/62 108/64 Pulse Oximetry Oxygen Delivery Fraction of Inspired Oxygen 08/27/24 11:00 08/27/24 11:12 08/27/24 11:15 Temperature Pulse Rate 86 87 87 Respiratory Rate Blood Pressure 104/59 L 106/62 Pulse Oximetry 96 Oxygen Delivery Mechanical Ventilation Fraction of Inspired Oxygen 40 08/27/24 11:30 08/27/24 11:37 08/27/24 11:45 Temperature Pulse Rate 87 87 87 Respiratory Rate 38 H Blood Pressure 105/61 104/61 Pulse Oximetry Oxygen Delivery Fraction of Inspired Oxygen 08/27/24 11:45 08/27/24 12:00 08/27/24 12:00 Temperature 98.8 F Pulse Rate 87 87 87 Respiratory Rate 28 H 23 H Blood Pressure 103/58 L 120/64 Pulse Oximetry 97 Oxygen Delivery Fraction of Inspired Oxygen 08/27/24 12:00 08/27/24 12:00 08/27/24 12:00 Temperature Pulse Rate 89 Respiratory Rate Blood Pressure Pulse Oximetry 97 Oxygen Delivery Mechanical Ventilation Fraction of Inspired Oxygen 40 40 08/27/24 12:00 08/27/24 12:00 08/27/24 12:00 Temperature Pulse Rate 87 81 81 Respiratory Rate 24 H 24 H Blood Pressure 114/68 Pulse Oximetry Oxygen Delivery Fraction of Inspired Oxygen 08/27/24 12:15 08/27/24 12:30 08/27/24 12:45 Temperature Pulse Rate 89 88 87 Respiratory Rate Blood Pressure 120/64 114/68 104/63 Pulse Oximetry Oxygen Delivery Fraction of Inspired Oxygen 08/27/24 13:00 08/27/24 13:15 08/27/24 13:30 Temperature Pulse Rate 84 82 82 Respiratory Rate Blood Pressure 105/63 106/59 L 105/57 L Pulse Oximetry Oxygen Delivery Fraction of Inspired Oxygen 08/27/24 13:45 08/27/24 14:00 08/27/24 14:00 Temperature 98.5 F Pulse Rate 79 81 83 Respiratory Rate 18 Blood Pressure 106/59 L 109/60 Pulse Oximetry 100 Oxygen Delivery Fraction of Inspired Oxygen 08/27/24 14:00 08/27/24 14:00 08/27/24 14:00 Temperature 97.7 F Pulse Rate 83 84 82 Respiratory Rate 25 H 18 Blood Pressure 109/60 108/61 Pulse Oximetry 100 Oxygen Delivery Fraction of Inspired Oxygen 08/27/24 14:02 08/27/24 16:00 08/27/24 16:00 Temperature Pulse Rate 84 90 Respiratory Rate Blood Pressure Pulse Oximetry 100 Oxygen Delivery Mechanical Ventilation Fraction of Inspired Oxygen 40 40 08/27/24 16:00 08/27/24 16:00 08/27/24 16:00 Temperature 99 F Pulse Rate 89 91 90 Respiratory Rate 23 H 23 H Blood Pressure 96/57 L 99/62 L Pulse Oximetry 98 Oxygen Delivery Fraction of Inspired Oxygen 08/27/24 16:00 08/27/24 16:00 08/27/24 16:23 Temperature Pulse Rate 90 90 Respiratory Rate 23 H Blood Pressure Pulse Oximetry 97 97 Oxygen Delivery Mechanical Ventilation Mechanical Ventilation Fraction of Inspired Oxygen 40 40 08/27/24 18:00 08/27/24 18:00 08/27/24 18:00 Temperature Pulse Rate 92 92 92 Respiratory Rate 25 H 25 H Blood Pressure 95/53 L Pulse Oximetry 99 Oxygen Delivery Fraction of Inspired Oxygen 08/27/24 18:00 08/27/24 19:45 08/27/24 20:00 Temperature 97.4 F L Pulse Rate 92 89 Respiratory Rate 19 Blood Pressure 95/53 L 88/49 L Pulse Oximetry 98 97 Oxygen Delivery Mechanical Ventilation Fraction of Inspired Oxygen 40 08/27/24 20:00 08/27/24 20:00 08/27/24 20:00 Temperature Pulse Rate 91 88 Respiratory Rate Blood Pressure Pulse Oximetry Oxygen Delivery Fraction of Inspired Oxygen 40 08/27/24 20:28 08/27/24 20:32 08/27/24 20:42 Temperature Pulse Rate 89 91 91 Respiratory Rate 14 14 Blood Pressure Pulse Oximetry 98 Oxygen Delivery Mechanical Ventilation Fraction of Inspired Oxygen 40 08/27/24 21:36 08/27/24 22:00 08/27/24 22:00 Temperature Pulse Rate 94 91 91 Respiratory Rate 14 23 H Blood Pressure 97/55 L Pulse Oximetry 98 Oxygen Delivery Fraction of Inspired Oxygen 08/27/24 22:00 08/27/24 23:36 08/28/24 00:00 Temperature Pulse Rate 91 96 Respiratory Rate Blood Pressure Pulse Oximetry 98 97 Oxygen Delivery Mechanical Ventilation Mechanical Ventilation Fraction of Inspired Oxygen 40 40 08/28/24 00:00 08/28/24 00:00 08/28/24 00:00 Temperature Pulse Rate 91 91 Respiratory Rate 23 H Blood Pressure Pulse Oximetry Oxygen Delivery Fraction of Inspired Oxygen 40 08/28/24 00:00 08/28/24 00:00 08/28/24 01:10 Temperature 97.6 F 101.9 F H Pulse Rate 94 96 Respiratory Rate 24 H Blood Pressure 93/54 L Pulse Oximetry 99 Oxygen Delivery Fraction of Inspired Oxygen 08/28/24 01:12 08/28/24 01:12 08/28/24 02:00 Temperature Pulse Rate 92 92 93 Respiratory Rate 22 H 22 H Blood Pressure Pulse Oximetry Oxygen Delivery Fraction of Inspired Oxygen 08/28/24 02:00 08/28/24 02:00 08/28/24 02:10 Temperature 101 F H Pulse Rate 92 92 91 Respiratory Rate 23 H Blood Pressure 92/55 L Pulse Oximetry 99 99 Oxygen Delivery Mechanical Ventilation Fraction of Inspired Oxygen 40 08/28/24 03:00 08/28/24 04:00 08/28/24 04:00 Temperature 99.5 F Pulse Rate 91 91 89 Respiratory Rate 22 H 22 H Blood Pressure 93/52 L Pulse Oximetry 98 Oxygen Delivery Fraction of Inspired Oxygen 08/28/24 04:00 08/28/24 04:00 08/28/24 04:00 Temperature Pulse Rate 88 Respiratory Rate Blood Pressure Pulse Oximetry 97 Oxygen Delivery Mechanical Ventilation Fraction of Inspired Oxygen 40 35 08/28/24 05:35 08/28/24 05:44 08/28/24 05:44 Temperature Pulse Rate 86 92 92 Respiratory Rate 22 H 22 H Blood Pressure Pulse Oximetry 98 Oxygen Delivery Mechanical Ventilation Fraction of Inspired Oxygen 35 08/28/24 06:00 08/28/24 06:00 08/28/24 06:00 Temperature 99.1 F Pulse Rate 93 92 91 Respiratory Rate 25 H Blood Pressure 94/57 L Pulse Oximetry 95 Oxygen Delivery Fraction of Inspired Oxygen 08/28/24 08:00 08/28/24 08:00 08/28/24 08:00 Temperature 99 F Pulse Rate 94 95 Respiratory Rate 28 H 28 H Blood Pressure 103/67 Pulse Oximetry 97 Oxygen Delivery Fraction of Inspired Oxygen 35 08/28/24 08:00 08/28/24 08:03 08/28/24 08:10 Temperature Pulse Rate 95 94 Respiratory Rate Blood Pressure 89/54 L Pulse Oximetry 98 Oxygen Delivery Mechanical Ventilation Mechanical Ventilation Fraction of Inspired Oxygen 35 35 08/28/24 08:35 08/28/24 08:35 Temperature Pulse Rate 93 93 Respiratory Rate 30 H 30 H Blood Pressure Pulse Oximetry Oxygen Delivery Fraction of Inspired Oxygen Intake/Output Intake/Output: Intake & Output 08/25/24 08/26/24 08/27/24 08/28/24 23:59 23:59 23:59 23:59 Intake Total 2051.6 2055.0 2377.4 1280.9 Output Total 2560 45 3102 Balance -508.4 2009.0 -724.6 1280.9 Meds/Results Medications: Active Medications Generic Name Dose Route Start Last Admin Trade Name Freq PRN Reason Stop Dose Admin Acetaminophen 650 mg 08/18/24 21:48 08/28/24 01:10 Acetaminophen Elixir 325 Mg/10.15 Ml Udc PO 650 mg Q4H PRN Administration Mild Pain (1-3) or Fever Dextrose 12.5 gm 08/18/24 05:53 Dextrose 50% 25 Gm/50 Ml Syringe IV PUSH PRN PRN Hypoglycemia Protocol Epoetin Oliver-epbx 20,000 units 08/28/24 18:59 Epoetin Oliver-Epbx 10,000 Units/Ml Vial IV PUSH 08/28/24 19:00 ONCE ONE Glucagon 1 mg 08/18/24 05:53 Glucagon For Inj 1 Mg Vial IM PRN PRN Hypoglycemia Protocol Glucose 15 gm 08/18/24 05:53 Glucose Oral Gel 15 Gm Of Glucse In 37.5 Gm Tube PO PRN PRN Hypoglycemia Protocol Heparin Sodium (Porcine) 5,500 units 08/18/24 15:05 08/18/24 23:23 Heparin Sodium 5,000 Units/Ml Vial IV PUSH 5,500 units PRN PRN Administration aPTT less than 55 seconds Heparin Sodium (Porcine) 3,000 units 08/18/24 15:05 08/23/24 10:58 Heparin Sodium 5,000 Units/Ml Vial IV PUSH 3,000 units PRN PRN Administration aPTT 55 - 70 seconds Dextrose 1,000 mls @ 100 mls/hr 08/18/24 05:53 Dextrose 5% 1,000 Ml IVPB PRN PRN Hypoglycemia Protocol Heparin Sodium/Dextrose 25,000 units in 250 mls @ 23 mls/hr 08/18/24 15:05 08/28/24 08:00 Heparin Sodium/D5w 100 Units/Ml IV CONT 0 units/hr .[id number] TEMI 0 mls/hr Titration Protocol 2,300 UNITS/HR Norepinephrine Bitartrate 8 mg in 250 mls @ 1.875 mls/hr 08/19/24 12:30 08/28/24 08:00 Levophed 8 Mg/D5w 250 Ml IV CONT 1 mcg/min .Q24H TEMI 1.88 mls/hr Titration Protocol 1 MCG/MIN Albumin Human 50 mls @ 999 mls/hr 08/21/24 06:28 Albutein IVPB 09/20/24 06:27 Q10M PRN HYPOTENSION Propofol 100 mls @ 22.104 mls/hr 08/25/24 14:25 08/28/24 08:35 Diprivan IV CONT 40 mcg/kg/min .Q4H32M TEMI 22.1 mls/hr Administration Protocol 40 MCG/KG/MIN Sodium Chloride 250 mls @ 30 mls/hr 08/28/24 07:30 Normal Saline Iv IV CONT 08/28/24 15:49 .Q8H20M STA Insulin Aspart 4 - 8 units 08/20/24 21:05 08/28/24 08:20 Insulin Aspart (*Bkc) 100 Units/Ml SUB-Q 6 units Q4HR TEMI Administration Protocol Insulin Glargine 70 units 08/28/24 09:00 08/28/24 08:20 Insulin Glargine (*Bkc) 100 Units/Ml SUB-Q 70 units QAM TEMI Administration Ipratropium [place] 0.5 mg 08/20/24 07:40 08/25/24 20:33 Ipratropium Br 0.02% Inh Soln 0.5 Mg/2.5 Ml Vial INHALATION 0.5 mg Q6HRT PRN Administration Wheezing Levalbuterol HCl 1.25 mg 08/20/24 07:40 08/25/24 20:33 Levalbuterol Neb 1.25 Mg/3 Ml INHALATION 1.25 mg Q6HRT PRN Administration Wheezing Metoclopramide HCl 10 mg 08/23/24 08:00 08/28/24 08:19 Metoclopramide Hcl 10 Mg/10 Ml Soln Udc PO 10 mg Q6H TEMI Administration Multi-Ingred Cream/Lotion/Oil/Oint 1 applic 08/18/24 09:00 08/28/24 08:19 Mineral Oil/White Petrolatum Ointment EACH EYE 1 applic Q12HR TEMI Administration Mupirocin 1 applic 08/15/24 21:00 08/28/24 08:23 Mupirocin 2% Oint 22 Gm Tube EACH NARE 1 applic Q12HR TEMI Administration Pantoprazole Sodium 40 mg 08/19/24 09:00 08/28/24 08:19 Pantoprazole Sodium Iv 40 Mg Vial IV PUSH 40 mg QAM TEMI Administration Polyethylene Glycol 17 gm 08/15/24 22:20 08/28/24 08:19 Polyethylene Glycol 3350 17 Gm Powd.Pack PO 17 gm DAILY PRN Administration constipation Sodium Chloride 10 ml 08/19/24 22:00 08/28/24 06:46 Central Line Flush IV PUSH 10 ml Q8HR TEMI Administration Sodium Chloride 20 ml 08/19/24 18:43 Central Line Flush IV PUSH PRN PRN after blood draws Radiology Results: ITS Impressions Chest CTA 08/15/24 11:11 IMPRESSION: No pulmonary embolus. No thoracic aortic dissection. Right upper lobe infiltrate with patchy bilateral airspace disease, likely inflammatory/congestive rather than infectious. Small bilateral pleural effusions with adjacent atelectasis. Venous Doppler Study 08/18/24 14:42 IMPRESSION: 1. Bilateral [id number] deep venous thrombosis in the left and right posterior tibial veins. Findings were discussed with the ICU nurse Carlos Herrera at 2:45 PM. Renal Ultrasound 08/19/24 14:10 IMPRESSION: No hydronephrosis or renal calculi. Findings suggesting medical renal disease. Findings within the upper pole of the right kidney consistent with patient's history, as detailed above. Chest/Abdomen/Pelvis CT 08/23/24 09:58 IMPRESSION: CHEST: 1. Bilateral pneumonia which is slightly decreased compared to previous study. Bilateral pleural effusion more on the right side. ABDOMEN/PELVIS: 1. No evidence of appendicitis, diverticulitis or intestinal obstruction. 2. Bilateral tiny kidney stones. 3. Hepatomegaly. 4. No evidence of ileus seen. ADDENDUM: 08/23/24 1042 Possibility of mass in the right kidney upper pole cannot be excluded. Abdomen X-Ray 08/23/24 16:53 IMPRESSION: 1. Dobbhoff type nasoenteric feeding tube with distal tip projecting over the gastric fundus. Head CT 08/26/24 09:32 Impression: No intracranial hemorrhage, mass, or acute infarct. Atrophy and chronic white matter changes, as above. Labs Labs: Laboratory Results - last 24 hr 08/27/24 08/27/24 08/27/24 12:09 16:40 19:50 WBC RBC Hgb Hct MCV MCH MCHC RDW Plt Count MPV Immature Gran % (Auto) Neut % (Auto) Lymph % (Auto) [place] % (Auto) Eos % (Auto) Baso % (Auto) Lymph # (Auto) [place] # (Auto) Eos # (Auto) Baso # (Auto) Abs Immat Gran (auto) Absolute Neuts (auto) Absolute Nucleated RBC Total Counted Neutrophils % (Manual) Band Neutrophils % Lymphocytes % (Manual) Monocytes % (Manual) Metamyelocytes % Nucleated RBC % Abs Neuts (Manual) Abs Lymphs (Manual) Abs Monocytes (Manual) Platelet Estimate Large Platelets Hypochromasia Anisocytosis Schistocytes APTT Puncture Site ABG pH ABG pCO2 ABG pO2 ABG PO2/FiO2 Ratio ABG HCO3 ABG O2 Saturation ABG O2 Content ABG Base Excess A-a Gradient Oxyhemoglobin Carboxyhemoglobin Methemoglobin Reduced Hemoglobin Total Hemoglobin O2 Delivery Device O2 Liters/Min Minute Volume Vent Rate Vent Mode FiO2 Tidal Volume PEEP Peak Inspir Pressure Pressure Support Sodium Potassium Chloride Carbon Dioxide Anion Gap BUN Creatinine Estim Creat Clear Calc Estimated GFR Glucose POC Capillary Glucose 172 H 260 H 230 H Calcium Phosphorus Magnesium Total Bilirubin AST ALT Alkaline Phosphatase Total Protein Albumin Blood Type Antibody Screen Crossmatch 08/28/24 08/28/24 08/28/24 01:02 05:25 06:10 WBC RBC Hgb Hct MCV MCH MCHC RDW Plt Count MPV Immature Gran % (Auto) Neut % (Auto) Lymph % (Auto) [place] % (Auto) Eos % (Auto) Baso % (Auto) Lymph # (Auto) [place] # (Auto) Eos # (Auto) Baso # (Auto) Abs Immat Gran (auto) Absolute Neuts (auto) Absolute Nucleated RBC Total Counted Neutrophils % (Manual) Band Neutrophils % Lymphocytes % (Manual) Monocytes % (Manual) Metamyelocytes % Nucleated RBC % Abs Neuts (Manual) Abs Lymphs (Manual) Abs Monocytes (Manual) Platelet Estimate Large Platelets Hypochromasia Anisocytosis Schistocytes APTT Puncture Site Left radial ABG pH 7.436 ABG pCO2 38.2 ABG pO2 85.7 ABG PO2/FiO2 Ratio 2.45 ABG HCO3 25.1 ABG O2 Saturation 96.8 ABG O2 Content 10.2 L ABG Base Excess 0.9 A-a Gradient 119.4 Oxyhemoglobin 96.1 Carboxyhemoglobin 0.5 Methemoglobin 0.2 Reduced Hemoglobin 3.2 Total Hemoglobin 7.4 L* O2 Delivery Device Ventilator O2 Liters/Min Not Reportable Minute Volume Not Reportable Vent Rate 18 Vent Mode Cmv FiO2 35 Tidal Volume 320 PEEP 10 Peak Inspir Pressure Not Reportable Pressure Support Not Reportable Sodium Potassium Chloride Carbon Dioxide Anion Gap BUN Creatinine Estim Creat Clear Calc Estimated GFR Glucose POC Capillary Glucose 303 H 311 H Calcium Phosphorus Magnesium Total Bilirubin AST ALT Alkaline Phosphatase Total Protein Albumin Blood Type Antibody Screen Crossmatch 08/28/24 08/28/24 08/28/24 06:29 07:45 08:14 WBC 11.7 H RBC 2.71 L Hgb 6.9 L* Hct 23.2 L MCV 85.6 MCH 25.5 L MCHC 29.7 L RDW 19.3 H Plt Count 225 MPV 11.9 H Immature Gran % (Auto) Not Reportable Neut % (Auto) Not Reportable Lymph % (Auto) Not Reportable [place] % (Auto) Not Reportable Eos % (Auto) Not Reportable Baso % (Auto) Not Reportable Lymph # (Auto) Not Reportable [place] # (Auto) Not Reportable Eos # (Auto) Not Reportable Baso # (Auto) Not Reportable Abs Immat Gran (auto) Not Reportable Absolute Neuts (auto) Not Reportable Absolute Nucleated RBC Not Reportable Total Counted 100 Neutrophils % (Manual) 75 H Band Neutrophils % 3 Lymphocytes % (Manual) 19.0 Monocytes % (Manual) 2 L Metamyelocytes % 1 Nucleated RBC % Not Reportable Abs Neuts (Manual) 9.12 H Abs Lymphs (Manual) 2.22 Abs Monocytes (Manual) 0.23 Platelet Estimate Adequate Large Platelets Present Hypochromasia 1+ Anisocytosis 1+ Schistocytes None seen APTT 98.7 H Puncture Site ABG pH ABG pCO2 ABG pO2 ABG PO2/FiO2 Ratio ABG HCO3 ABG O2 Saturation ABG O2 Content ABG Base Excess A-a Gradient Oxyhemoglobin Carboxyhemoglobin Methemoglobin Reduced Hemoglobin Total Hemoglobin O2 Delivery Device O2 Liters/Min Minute Volume Vent Rate Vent Mode FiO2 Tidal Volume PEEP Peak Inspir Pressure Pressure Support Sodium 133 L Potassium 4.1 Chloride 92 L Carbon Dioxide 25 Anion Gap 16 H BUN 82 H Creatinine 3.67 H Estim Creat Clear Calc 12 Estimated GFR 12 L Glucose 316 H POC Capillary Glucose 314 H Calcium 9.2 Phosphorus 4.8 H Magnesium 2.6 H Total Bilirubin 0.3 AST 25 ALT 69 H Alkaline Phosphatase 107 Total Protein 7.0 Albumin 3.5 Blood Type AB Positive Antibody Screen Positive Crossmatch See Detail Quality VTE Prophylaxis VTE prophylaxis: mechanical ordered and pharmacologic ordered
[2024-08-28] MEDS: ACETYLCYSTEINE 20% INHAL SOLN 800 MG/4 ML VIAL 200 MG INHALATION ×3 (10:03→20:00)
[2024-08-28] MEDS: LEVALBUTEROL NEB 1.25 MG/3 ML INHALATION ×3 (10:03→20:00)
[2024-08-28 13:30] LABS: Hematocrit 23.3 % (37.0-47.0); Mean Corpuscular Hemoglobin 25.4 pg (26-34); Mean Corpuscular Volume 84.4 fl (80-100); Mean Platelet Volume 11.8 fl (7.4-10.4); Platelet Count Result 240 k/mm3 (150-375); Red Blood Count 2.76 M/mm3 (4.2-5.4); Red Cell Distribution Width 19.3 % (11.5-14.5); White Blood Count 13.3 K/mm3 (4.5-10.0)
[2024-08-28] MEDS: DORNASE ALFA INH SOLN 1 MG/ML 2.5 ML AMP 2.5 MG INHALATION ×2 (13:38→20:01)
--- NOTE | 2024-08-28 14:18 | PM.CNGS ---
Assessment and Plan Assessment and plan (1) Acute respiratory failure with hypoxia: Code(s): J96.01 - Acute respiratory failure with hypoxia Status: Acute Assessment and Plan: Will not be weaning from the mechanical ventilator soon. Dr. Alvarado has had discussions with the family and comfort measures are being considered. (2) Pneumonia: Qualifiers: Pneumonia type: due to methicillin-resistant Staphylococcus aureus (MRSA) Laterality: bilateral Lung location: lower lobe of lung Qualified Code(s): J15.212 - Pneumonia due to Methicillin resistant Staphylococcus aureus Code(s): J18.9 - Pneumonia, unspecified organism Status: Acute (3) Congestive heart failure: Qualifiers: Heart failure type: unspecified Heart failure chronicity: acute on chronic Qualified Code(s): I50.9 - Heart failure, unspecified Code(s): I50.9 - Heart failure, unspecified Status: Acute (4) Renal failure: Qualifiers: Renal failure chronicity: acute on chronic Acute renal failure type: unspecified Chronic kidney disease stage: stage 3 (moderate) Chronic kidney disease stage 3 subtype: unspecified whether 3a or 3b Qualified Code(s): N17.9 - Acute kidney failure, unspecified; N18.30 - Chronic kidney disease, stage 3 unspecified Code(s): N19 - Unspecified kidney failure Status: Acute (5) Anemia: Qualifiers: Anemia type: due to chronic kidney disease Chronic kidney disease stage: stage 3 (moderate) Chronic kidney disease stage 3 subtype: unspecified whether 3a or 3b Qualified Code(s): N18.30 - Chronic kidney disease, stage 3 unspecified; D63.1 - Anemia in chronic kidney disease Code(s): D64.9 - Anemia, unspecified Status: Acute Assessment and Plan: Gradual decrease in hemoglobin and hematocrit most likely due to renal disease, poor hematopoiesis, CHF and dilutional effects. Do not see evidence of bleeding. (6) DVT (deep venous thrombosis): Qualifiers: DVT location: lower extremity Affected thrombotic vein of extremity: tibial Chronicity: acute Laterality: bilateral Qualified Code(s): I82.443 - Acute embolism and thrombosis of tibial vein, bilateral Code(s): I82.409 - Acute embolism and thrombosis of unspecified deep veins of unspecified lower extremity Status: Acute Assessment and Plan: Calf veins have a low risk of pulmonary emboli. She has been on anticoagulation for 10 days. I discussed this with Dr. Alvarado. I would be okay with continuing anticoagulation but if concerns for bleeding over ride this, would at least like her to be on prophylactic dose of enoxaparin. Will order repeat venous Dopplers on Friday, 2 days from now. If signs of propagation, I would recommend a filter or continued anticoagulation. In most cases, calf vein DVTs resolve without difficulty. History of Present Illness Consult details Consult date: 08/28/24 Reason for consult: other (Possible need for IVC filter) Requesting physician: Iraj Alvarado MD Narrative: Patient is an 84-year-old woman who was in [facility] after having fallen and suffered fracture of her lower right leg. Prior to that she was living in her own home. She came to the emergency room and [facility] on August 15 with shortness of breath cough and hypoxemia. CTA was negative for pulmonary emboli. She was felt to have a combination of bilateral pneumonia and congestive heart failure. Unfortunately, her pulmonary condition has worsened. She has been transferred to the ICU and remains intubated there. She has a history of coronary artery disease with stents, congestive heart failure, hypertension, type 2 diabetes mellitus, possible chronic kidney disease, suspected kidney cancer which has been under surveillance for approximately 4 years, urinary incontinence now with indwelling suprapubic catheter, recurrent urinary tract infections, and frequent pneumonia. Her son's report that she has had many episodes of pneumonia throughout several years. Patient has also had a deterioration in renal function and is receiving dialysis which is mostly ultrafiltration. On the 3rd day after admission, patient was noted to have edematous legs and underwent bilateral venous Dopplers. All deep veins were patent except that bilaterally she had evidence of DVT in both of the posterior tibial veins. She has been on a therapeutic heparin drip since then. It was noted today that her H&H had dropped to 6.9/23.2. Her heparin drip was stopped due to concerns for bleeding. Was asked to see the patient regarding the need for vena cava filter. Patient is a but under the on a ventilator. History comes from her sons and review of the old charts. I also talked to the our curator of education, Dr. Alvarado. Review of Systems Review of Systems: ROS unobtainable: Yes unobtainable due to endotracheal tube PMFSH Past Medical History Medical History Recurrent urinary tract infection Fuchs' corneal dystrophy Cancer of kidney suspected kidney cancer being monitored for the last 4 years with recent increase in growth and plans for possible radiation therapy Coronary artery disease patient of Dr. Addy Norwood at [facility] Type 2 diabetes mellitus Congestive heart failure Hypertension Surgical History Surgical History History of appendectomy History of cholecystectomy History of ventral hernia repair with mesh History of arthroplasty of right knee History of suprapubic catheter History of coronary artery stent placement (2018) Social History Social History Social History: Healthcare power of commonwealth attorney: Bacilio Salas, son. Code status: Full code. Smoking status: Never smoker Alcohol intake: never Substance use: never Spiritual care concerns: No Meds Home Medications and Allergies Home Medications ?Medication ?Instructions ?Recorded ?Confirmed ?Type Lactobacillus acidophilus 100 mg PO DAILY 08/15/24 08/15/24 History (Acidophilus capsule) acetaminophen 325 mg tablet 325 mg PO Q4H PRN pain 08/15/24 08/15/24 History amlodipine 5 mg tablet 5 mg PO DAILY 08/15/24 08/15/24 History arginine-vitamin C-vitamin E oral 9.2 g PO TIDWM 08/15/24 08/15/24 History 4.5 gram-156 mg/9.2 gram powder pkt (Arginaid) aspirin 81 mg capsule 81 mg PO DAILY 08/15/24 08/15/24 History bupropion HCl 300 mg 24 hr tablet, 300 mg PO DAILY 08/15/24 08/15/24 History extended release d-mannose 500 mg capsule (AZO 500 mg PO BID 08/15/24 08/15/24 History D-Mannose) fluticasone propionate 50 1 spray intranasal Q12H PRN nasal 08/15/24 08/15/24 History mcg/actuation nasal congestion spray,suspension furosemide 20 mg tablet 20 mg PO .COMPLEX 08/15/24 08/15/24 History guaifenesin 600 mg tablet, 600 mg PO Q12H 08/15/24 08/15/24 History extended release 12 hr (Mucinex) hydralazine 50 mg tablet 50 mg PO Q12H 08/15/24 08/15/24 History hydrocodone 5 mg-acetaminophen 325 1 tablet PO Q4-6H PRN pain (scale 08/15/24 08/15/24 History mg tablet score 4-6) insulin lispro 100 unit/mL 1 sliding scale dose subcut 08/15/24 08/15/24 History subcutaneous solution (Humalog USEASDIRECTD U-100 Insulin) isosorbide mononitrate 30 mg 30 mg PO DAILY 08/15/24 08/15/24 History tablet,extended release 24 hr krill oil 500 mg capsule 1 mg PO DAILY 08/15/24 08/15/24 History loratadine 10 mg tablet 10 mg PO DAILY 08/15/24 08/15/24 History losartan 25 mg tablet 25 mg PO DAILY 08/15/24 08/15/24 History meclizine 25 mg tablet 25 mg PO QID PRN dizziness 08/15/24 08/15/24 History metoprolol succinate 25 mg 25 mg PO DAILY 08/15/24 08/15/24 History tablet,extended release 24 hr montelukast 10 mg tablet 10 mg PO HS 08/15/24 08/15/24 History multivitamin,lv-kwlo-Mu-FA-min 1 tablet PO Q12H 08/15/24 08/15/24 History polyethylene glycol 3350 17 gram 17 g PO DAILY PRN constipation 08/15/24 08/15/24 History oral powder packet (Miralax) potassium chloride 10 mEq 10 meq PO .COMPLEX 08/15/24 08/15/24 History tablet,extended release rosuvastatin 5 mg tablet 5 mg PO HS 08/15/24 08/15/24 History senna-docusate sodium tablet 1 tablet PO DAILY PRN constipation 08/15/24 08/15/24 History Allergies Allergy/AdvReac Type Severity Reaction Status Date / Time adhesive tape Allergy Unknown Verified 08/15/24 08:51 aripiprazole (From Abilify) Allergy Unknown Verified 08/15/24 08:51 carvedilol Allergy Unknown Verified 08/15/24 08:51 latex Allergy Unknown Verified 08/15/24 08:51 [id number]-[id number]-AyR Reductase Allergy Unknown Verified 08/15/24 08:51 Inhibitor Sulfa (Sulfonamide Allergy Unknown Verified 08/15/24 08:51 Antibiotics) sulfasalazine Allergy Hives Verified 08/15/24 08:51 Sulfonylureas Allergy Unknown Verified 08/15/24 08:51 Vital Signs Vital Signs - 24 hr 08/27/24 16:00 08/27/24 16:00 08/27/24 16:00 Temperature 37.2 C Pulse Rate 90 89 Respiratory Rate 23 H Blood Pressure 96/57 L Pulse Oximetry 98 Oxygen Delivery Fraction of Inspired Oxygen 40 08/27/24 16:00 08/27/24 16:00 08/27/24 16:00 Temperature Pulse Rate 91 90 90 Respiratory Rate 23 H 23 H Blood Pressure 99/62 L Pulse Oximetry Oxygen Delivery Fraction of Inspired Oxygen 08/27/24 16:00 08/27/24 16:23 08/27/24 18:00 Temperature Pulse Rate 90 92 Respiratory Rate Blood Pressure Pulse Oximetry 97 97 Oxygen Delivery Mechanical Ventilation Mechanical Ventilation Fraction of Inspired Oxygen 40 40 08/27/24 18:00 08/27/24 18:00 08/27/24 18:00 Temperature Pulse Rate 92 92 92 Respiratory Rate 25 H 25 H Blood Pressure 95/53 L 95/53 L Pulse Oximetry 99 Oxygen Delivery Fraction of Inspired Oxygen 08/27/24 19:45 08/27/24 20:00 08/27/24 20:00 Temperature 36.3 C L Pulse Rate 89 Respiratory Rate 19 Blood Pressure 88/49 L Pulse Oximetry 98 97 Oxygen Delivery Mechanical Ventilation Fraction of Inspired Oxygen 40 40 08/27/24 20:00 08/27/24 20:00 08/27/24 20:28 Temperature Pulse Rate 91 88 89 Respiratory Rate Blood Pressure Pulse Oximetry 98 Oxygen Delivery Mechanical Ventilation Fraction of Inspired Oxygen 40 08/27/24 20:32 08/27/24 20:42 08/27/24 21:36 Temperature Pulse Rate 91 91 94 Respiratory Rate 14 14 14 Blood Pressure 97/55 L Pulse Oximetry 98 Oxygen Delivery Fraction of Inspired Oxygen 08/27/24 22:00 08/27/24 22:00 08/27/24 22:00 Temperature Pulse Rate 91 91 91 Respiratory Rate 23 H Blood Pressure Pulse Oximetry Oxygen Delivery Fraction of Inspired Oxygen 08/27/24 23:36 08/28/24 00:00 08/28/24 00:00 Temperature Pulse Rate 96 Respiratory Rate Blood Pressure Pulse Oximetry 98 97 Oxygen Delivery Mechanical Ventilation Mechanical Ventilation Fraction of Inspired Oxygen 40 40 40 08/28/24 00:00 08/28/24 00:00 08/28/24 00:00 Temperature 36.4 C Pulse Rate 91 91 94 Respiratory Rate 23 H 24 H Blood Pressure 93/54 L Pulse Oximetry 99 Oxygen Delivery Fraction of Inspired Oxygen 08/28/24 00:00 08/28/24 01:10 08/28/24 01:12 Temperature 38.8 C H Pulse Rate 96 92 Respiratory Rate 22 H Blood Pressure Pulse Oximetry Oxygen Delivery Fraction of Inspired Oxygen 08/28/24 01:12 08/28/24 02:00 08/28/24 02:00 Temperature 38.3 C H Pulse Rate 92 93 92 Respiratory Rate 22 H 23 H Blood Pressure 92/55 L Pulse Oximetry 99 Oxygen Delivery Fraction of Inspired Oxygen 08/28/24 02:00 08/28/24 02:10 08/28/24 03:00 Temperature Pulse Rate 92 91 91 Respiratory Rate 22 H Blood Pressure Pulse Oximetry 99 Oxygen Delivery Mechanical Ventilation Fraction of Inspired Oxygen 40 08/28/24 04:00 08/28/24 04:00 08/28/24 04:00 Temperature 37.5 C Pulse Rate 91 89 Respiratory Rate 22 H Blood Pressure 93/52 L Pulse Oximetry 98 97 Oxygen Delivery Mechanical Ventilation Fraction of Inspired Oxygen 40 08/28/24 04:00 08/28/24 04:00 08/28/24 05:35 Temperature Pulse Rate 88 86 Respiratory Rate Blood Pressure Pulse Oximetry 98 Oxygen Delivery Mechanical Ventilation Fraction of Inspired Oxygen 35 35 08/28/24 05:44 08/28/24 05:44 08/28/24 06:00 Temperature Pulse Rate 92 92 93 Respiratory Rate 22 H 22 H Blood Pressure Pulse Oximetry Oxygen Delivery Fraction of Inspired Oxygen 08/28/24 06:00 08/28/24 06:00 08/28/24 08:00 Temperature 37.3 C 37.2 C Pulse Rate 92 91 94 Respiratory Rate 25 H 28 H Blood Pressure 94/57 L 103/67 Pulse Oximetry 95 97 Oxygen Delivery Fraction of Inspired Oxygen 08/28/24 08:00 08/28/24 08:00 08/28/24 08:00 Temperature Pulse Rate 95 95 Respiratory Rate 28 H Blood Pressure 89/54 L Pulse Oximetry Oxygen Delivery Fraction of Inspired Oxygen 35 08/28/24 08:00 08/28/24 08:00 08/28/24 08:03 Temperature Pulse Rate 94 94 Respiratory Rate Blood Pressure Pulse Oximetry 97 98 Oxygen Delivery Mechanical Ventilation Mechanical Ventilation Fraction of Inspired Oxygen 35 35 08/28/24 08:10 08/28/24 08:35 08/28/24 08:35 Temperature Pulse Rate 93 93 Respiratory Rate 30 H 30 H Blood Pressure Pulse Oximetry Oxygen Delivery Mechanical Ventilation Fraction of Inspired Oxygen 35 08/28/24 10:00 08/28/24 10:00 08/28/24 10:00 Temperature Pulse Rate 93 90 93 Respiratory Rate 35 H 35 H Blood Pressure 92/52 L 92/57 L Pulse Oximetry 97 Oxygen Delivery Fraction of Inspired Oxygen 08/28/24 10:03 08/28/24 10:03 08/28/24 10:35 Temperature Pulse Rate 93 93 94 Respiratory Rate 28 H 30 H Blood Pressure Pulse Oximetry 97 Oxygen Delivery Mechanical Ventilation Fraction of Inspired Oxygen 35 08/28/24 12:00 08/28/24 12:00 08/28/24 12:00 Temperature 37.2 C Pulse Rate 92 94 Respiratory Rate 31 H Blood Pressure 96/50 L 96/64 L Pulse Oximetry 97 Oxygen Delivery Fraction of Inspired Oxygen 35 08/28/24 12:00 08/28/24 13:38 08/28/24 13:38 Temperature Pulse Rate 95 95 Respiratory Rate 33 H Blood Pressure Pulse Oximetry 97 97 Oxygen Delivery Mechanical Ventilation Mechanical Ventilation Fraction of Inspired Oxygen 35 35 08/28/24 13:45 08/28/24 13:45 08/28/24 13:46 Temperature Pulse Rate 95 95 Respiratory Rate 18 37 H Blood Pressure 100/61 Pulse Oximetry Oxygen Delivery Fraction of Inspired Oxygen 35 08/28/24 13:55 08/28/24 13:56 Temperature Pulse Rate 96 96 Respiratory Rate 40 H Blood Pressure 104/67 Pulse Oximetry Oxygen Delivery Fraction of Inspired Oxygen Exam Const: General: comfortable, patient obtunded and edematous; No awake Orientation/consciousness: patient obtunded (On mechanical ventilator) HENMT: Head: normocephalic and atraumatic Face/Nose/Sinus: Normal external nose present, No crepitus, No ecchymosis and No erythema Face and sinus: face symmetric, no crepitus and no ecchymosis Mouth: Yes Normal oral and palatal mucosa present and Yes lip normal Neck: Neck: normal visual inspection, no lymphadenopathy and trachea midline Resp: Effort & Inspection: other (Intubated on mechanical ventilator, comfortable) Auscultation: clear to auscultation bilaterally, no rales and no rhonchi Cardio: Rate: regular rate Rhythm: regular rhythm Heart sounds: no gallops, no murmurs and no rubs GI: Inspection: normal to inspection, no abdominal wall ecchymosis and non-distended GI Palp: Yes Soft to palpation, No Tenderness to palpation present (GI), No Hepatomegaly present and No Splenomegaly present Back/Spine/Pelvis: Back: No ecchymosis Skin: General skin exam: no ecchymosis Lesions: no lesions Rashes: no rashes Neuro: General: patient obtunded Extrem: General: no clubbing, cyanosis or edema and edema Right lower extremity: lower leg (Boot in place) Results Labs 08/28/24 13:26 08/28/24 06:29 Labs: Abnormal lab results 08/27/24 08/27/24 08/28/24 Range/Units 16:40 19:50 01:02 WBC (4.5-10.0) K/mm3 RBC (4.2-5.4) M/mm3 Hgb (12.0-15.0) g/dL Hct (37.0-47.0) % MCH (26-34) pg MCHC (32-36) g/dl RDW (11.5-14.5) % MPV (7.4-10.4) fl Neutrophils % (Manual) (46-73) % Monocytes % (Manual) (3-9) % Abs Neuts (Manual) (1.7-7.2) K/mm3 APTT (22.3-36.8) Seconds ABG O2 Content (16.0-22.0) %vol Total Hemoglobin (12.0-18.0) g/dL Sodium (137-145) mmol/L Chloride (98-107) mmol/L Anion Gap (4-12) mmol/L BUN (7-17) mg/dL Creatinine (0.7-1.0) mg/dL Estimated GFR (59 - ) Glucose (65-110) mg/dL POC Capillary Glucose 260 H 230 H 303 H (65-105) mg/dl Phosphorus (2.5-4.5) mg/dL Magnesium (1.6-2.3) mg/dL ALT (6-35) U/L Crossmatch 08/28/24 08/28/24 08/28/24 Range/Units 05:25 06:10 06:29 WBC 11.7 H (4.5-10.0) K/mm3 RBC 2.71 L (4.2-5.4) M/mm3 Hgb 6.9 L* (12.0-15.0) g/dL Hct 23.2 L (37.0-47.0) % MCH 25.5 L (26-34) pg MCHC 29.7 L (32-36) g/dl RDW 19.3 H (11.5-14.5) % MPV 11.9 H (7.4-10.4) fl Neutrophils % (Manual) 75 H (46-73) % Monocytes % (Manual) 2 L (3-9) % Abs Neuts (Manual) 9.12 H (1.7-7.2) K/mm3 APTT 98.7 H (22.3-36.8) Seconds ABG O2 Content 10.2 L (16.0-22.0) %vol Total Hemoglobin 7.4 L* (12.0-18.0) g/dL Sodium 133 L (137-145) mmol/L Chloride 92 L (98-107) mmol/L Anion Gap 16 H (4-12) mmol/L BUN 82 H (7-17) mg/dL Creatinine 3.67 H (0.7-1.0) mg/dL Estimated GFR 12 L (59 - ) Glucose 316 H (65-110) mg/dL POC Capillary Glucose 311 H (65-105) mg/dl Phosphorus 4.8 H (2.5-4.5) mg/dL Magnesium 2.6 H (1.6-2.3) mg/dL ALT 69 H (6-35) U/L Crossmatch 08/28/24 08/28/24 08/28/24 Range/Units 07:45 08:14 13:26 WBC 13.3 H (4.5-10.0) K/mm3 RBC 2.76 L (4.2-5.4) M/mm3 Hgb 7.0 L (12.0-15.0) g/dL Hct 23.3 L (37.0-47.0) % MCH 25.4 L (26-34) pg MCHC 30.0 L (32-36) g/dl RDW 19.3 H (11.5-14.5) % MPV 11.8 H (7.4-10.4) fl Neutrophils % (Manual) (46-73) % Monocytes % (Manual) (3-9) % Abs Neuts (Manual) (1.7-7.2) K/mm3 APTT (22.3-36.8) Seconds ABG O2 Content (16.0-22.0) %vol Total Hemoglobin (12.0-18.0) g/dL Sodium (137-145) mmol/L Chloride (98-107) mmol/L Anion Gap (4-12) mmol/L BUN (7-17) mg/dL Creatinine (0.7-1.0) mg/dL Estimated GFR (59 - ) Glucose (65-110) mg/dL POC Capillary Glucose 314 H (65-105) mg/dl Phosphorus (2.5-4.5) mg/dL Magnesium (1.6-2.3) mg/dL ALT (6-35) U/L Crossmatch See Detail Diabetes panel 08/28/24 Range/Units 06:29 Sodium 133 L (137-145) mmol/L Potassium 4.1 (3.4-5.0) mmol/L Chloride 92 L (98-107) mmol/L Carbon Dioxide 25 (22-30) mmol/L BUN 82 H (7-17) mg/dL Creatinine 3.67 H (0.7-1.0) mg/dL Glucose 316 H (65-110) mg/dL Calcium 9.2 (8.4-10.2) mg/dL AST 25 (14-36) U/L ALT 69 H (6-35) U/L Alkaline Phosphatase 107 (38-126) U/L Total Protein 7.0 (6.3-8.2) g/dL Albumin 3.5 (3.5-5.1) g/dL Calcium panel 08/28/24 Range/Units 06:29 Calcium 9.2 (8.4-10.2) mg/dL Phosphorus 4.8 H (2.5-4.5) mg/dL Albumin 3.5 (3.5-5.1) g/dL Pituitary panel 08/28/24 Range/Units 06:29 Sodium 133 L (137-145) mmol/L Potassium 4.1 (3.4-5.0) mmol/L Chloride 92 L (98-107) mmol/L Carbon Dioxide 25 (22-30) mmol/L BUN 82 H (7-17) mg/dL Creatinine 3.67 H (0.7-1.0) mg/dL Glucose 316 H (65-110) mg/dL Calcium 9.2 (8.4-10.2) mg/dL Adrenal panel 08/28/24 Range/Units 06:29 Sodium 133 L (137-145) mmol/L Potassium 4.1 (3.4-5.0) mmol/L Chloride 92 L (98-107) mmol/L Carbon Dioxide 25 (22-30) mmol/L BUN 82 H (7-17) mg/dL Creatinine 3.67 H (0.7-1.0) mg/dL Glucose 316 H (65-110) mg/dL Calcium 9.2 (8.4-10.2) mg/dL Total Bilirubin 0.3 (0.2-1.3) mg/dL AST 25 (14-36) U/L ALT 69 H (6-35) U/L Alkaline Phosphatase 107 (38-126) U/L Total Protein 7.0 (6.3-8.2) g/dL Albumin 3.5 (3.5-5.1) g/dL On review of her H&H since admission, she came in anemic and became more anemic with initial treatment. For about the last week, however, her H&H has slowly decreased about 0.3-0.4 grams/deciliter daily. Yesterday her H&H was 7.3 and 23.4. Today it is 6.9 and 23.2. There has been no abrupt drop off of her H&H. Review of her PTT's show her to be in the therapeutic range while on heparin with no over shoots or periods of non therapeutic dose.
--- NOTE | 2024-08-28 14:32 | PM.PNNEP ---
Subjective Date/time seen: 08/28/24 14:32 Interval history: Follow-up for acute kidney injury/acute renal failure on chronic kidney disease. Tolerated dialysis treatment yesterday but repeat labs this morning demonstrate poor clearance (BUN did not changed significantly); tolerating dialysis treatment at the time of my visit (seen on HD at 2:20PM); remains intubated/sedated and on mechanical ventilation; Objective Data Vital Signs Vital Signs: Vital Signs Temp Pulse Resp BP Pulse Ox O2 Del Method FiO2 08/28/24 14:30 97 100/60 08/28/24 14:15 92 102/70 08/28/24 14:00 96 98/67 L 08/28/24 14:00 93 102/70 08/28/24 14:00 94 37 H 102/70 97 08/28/24 14:00 93 08/28/24 13:56 96 104/67 08/28/24 13:55 96 40 H 08/28/24 13:46 95 37 H 08/28/24 13:45 95 18 100/61 08/28/24 13:45 35 08/28/24 13:38 95 33 H 08/28/24 13:38 95 97 Mechanical Ventilation 35 08/28/24 12:00 93 08/28/24 12:00 97 Mechanical Ventilation 35 08/28/24 12:00 35 08/28/24 12:00 98.9 F 94 31 H 96/64 L 97 08/28/24 12:00 92 96/50 L 08/28/24 10:35 94 30 H 08/28/24 10:15 93 26 H 08/28/24 10:03 93 28 H 08/28/24 10:03 93 97 Mechanical Ventilation 35 08/28/24 10:00 93 08/28/24 10:00 93 35 H 92/57 L 97 08/28/24 10:00 90 35 H 08/28/24 10:00 93 92/52 L 08/28/24 08:35 93 30 H 08/28/24 08:35 93 30 H 08/28/24 08:10 Mechanical Ventilation 35 08/28/24 08:03 94 98 Mechanical Ventilation 35 08/28/24 08:00 94 08/28/24 08:00 97 Mechanical Ventilation 35 08/28/24 08:00 95 89/54 L 08/28/24 08:00 95 28 H 08/28/24 08:00 35 08/28/24 08:00 99 F 94 28 H 103/67 97 08/28/24 06:00 91 08/28/24 06:00 99.1 F 92 25 H 94/57 L 95 08/28/24 06:00 93 08/28/24 05:44 92 22 H 08/28/24 05:44 92 22 H 08/28/24 05:35 86 98 Mechanical Ventilation 35 08/28/24 04:00 88 08/28/24 04:00 35 08/28/24 04:00 97 Mechanical Ventilation 40 08/28/24 04:00 99.5 F 89 22 H 93/52 L 98 08/28/24 04:00 91 08/28/24 03:00 91 22 H 08/28/24 02:10 91 99 Mechanical Ventilation 40 08/28/24 02:00 92 08/28/24 02:00 101 F H 92 23 H 92/55 L 99 08/28/24 02:00 93 08/28/24 01:12 92 22 H 08/28/24 01:12 92 22 H 08/28/24 01:10 101.9 F H 08/28/24 00:00 96 08/28/24 00:00 97.6 F 94 24 H 93/54 L 99 08/28/24 00:00 91 08/28/24 00:00 91 23 H 08/28/24 00:00 40 08/28/24 00:00 97 Mechanical Ventilation 40 08/27/24 23:36 96 98 Mechanical Ventilation 40 08/27/24 22:00 91 08/27/24 22:00 91 08/27/24 22:00 91 23 H 08/27/24 21:36 94 14 97/55 L 98 08/27/24 20:42 91 14 08/27/24 20:32 91 14 08/27/24 20:28 89 98 Mechanical Ventilation 40 08/27/24 20:00 88 08/27/24 20:00 91 08/27/24 20:00 40 08/27/24 20:00 97 Mechanical Ventilation 40 08/27/24 19:45 97.4 F L 89 19 88/49 L 98 08/27/24 18:00 92 95/53 L 08/27/24 18:00 92 25 H 08/27/24 18:00 92 25 H 95/53 L 99 08/27/24 18:00 92 08/27/24 16:23 90 97 Mechanical Ventilation 40 Intake/Output Intake/Output: Intake & Output 08/25/24 08/26/24 08/27/24 08/28/24 23:59 23:59 23:59 23:59 Intake Total 2051.6 2055.0 2377.4 1329.1 Output Total 2560 45 3102 Balance -508.4 2010.0 -724.6 1329.1 Meds/Results Medications: Active Medications Generic Name Dose Route Start Last Admin Trade Name Freq PRN Reason Stop Dose Admin Acetaminophen 650 mg 08/18/24 21:48 08/28/24 01:10 Acetaminophen Elixir 325 Mg/10.15 Ml Udc PO 650 mg Q4H PRN Administration Mild Pain (1-3) or Fever Acetylcysteine 200 mg 08/28/24 08:00 08/28/24 13:46 Acetylcysteine 20% Inhal Soln 800 Mg/4 Ml Vial INHALATION 200 mg Q6HRT TEMI Administration Dextrose 12.5 gm 08/18/24 05:53 Dextrose 50% 25 Gm/50 Ml Syringe IV PUSH PRN PRN Hypoglycemia Protocol Dornase Oliver 2.5 mg 08/28/24 10:05 08/28/24 13:38 Dornase Oliver Inh Soln 1 Mg/Ml 2.5 Ml Amp INHALATION 08/30/24 20:01 2.5 mg Q12HRT TEIM Administration Glucagon 1 mg 08/18/24 05:53 Glucagon For Inj 1 Mg Vial IM PRN PRN Hypoglycemia Protocol Glucose 15 gm 08/18/24 05:53 Glucose Oral Gel 15 Gm Of Glucse In 37.5 Gm Tube PO PRN PRN Hypoglycemia Protocol Heparin Sodium (Porcine) 5,500 units 08/18/24 15:05 08/18/24 23:23 Heparin Sodium 5,000 Units/Ml Vial IV PUSH 5,500 units PRN PRN Administration aPTT less than 55 seconds Heparin Sodium (Porcine) 3,000 units 08/18/24 15:05 08/23/24 10:58 Heparin Sodium 5,000 Units/Ml Vial IV PUSH 3,000 units PRN PRN Administration aPTT 55 - 70 seconds Dextrose 1,000 mls @ 100 mls/hr 08/18/24 05:53 Dextrose 5% 1,000 Ml IVPB PRN PRN Hypoglycemia Protocol Heparin Sodium/Dextrose 25,000 units in 250 mls @ 23 mls/hr 08/18/24 15:05 08/28/24 08:00 Heparin Sodium/D5w 100 Units/Ml IV CONT 0 units/hr .[id number] TEMI 0 mls/hr Titration Protocol 2,300 UNITS/HR Norepinephrine Bitartrate 8 mg in 250 mls @ 0 mls/hr 08/19/24 12:30 08/28/24 14:00 Levophed 8 Mg/D5w 250 Ml IV CONT 0 mcg/min .Q0M TEMI 0 mls/hr Titration Protocol 0 MCG/MIN Albumin Human 50 mls @ 999 mls/hr 08/21/24 06:28 Albutein IVPB 09/20/24 06:27 Q10M PRN HYPOTENSION Propofol 100 mls @ 19.341 mls/hr 08/25/24 14:25 08/28/24 10:15 Diprivan IV CONT 35 mcg/kg/min .Q5H11M TEMI 19.34 mls/hr Titration Protocol 35 MCG/KG/MIN Insulin Aspart 4 - 8 units 08/20/24 21:05 08/28/24 13:17 Insulin Aspart (*Bkc) 100 Units/Ml SUB-Q 4 units Q4HR TEMI Administration Protocol Insulin Glargine 70 units 08/28/24 09:00 08/28/24 08:20 Insulin Glargine (*Bkc) 100 Units/Ml SUB-Q 70 units QAM TEMI Administration Ipratropium [place] 0.5 mg 08/20/24 07:40 08/25/24 20:33 Ipratropium Br 0.02% Inh Soln 0.5 Mg/2.5 Ml Vial INHALATION 0.5 mg Q6HRT PRN Administration Wheezing Levalbuterol HCl 1.25 mg 08/20/24 07:40 08/28/24 10:03 Levalbuterol Neb 1.25 Mg/3 Ml INHALATION 1.25 mg Q6HRT PRN Administration Wheezing Levalbuterol HCl 1.25 mg 08/28/24 14:00 08/28/24 13:46 Levalbuterol Neb 1.25 Mg/3 Ml INHALATION 1.25 mg Q6HRT TEMI Administration Metoclopramide HCl 10 mg 08/23/24 08:00 08/28/24 13:21 Metoclopramide Hcl 10 Mg/10 Ml Soln Udc PO 10 mg Q6H TEMI Administration Multi-Ingred Cream/Lotion/Oil/Oint 1 applic 08/18/24 09:00 08/28/24 08:19 Mineral Oil/White Petrolatum Ointment EACH EYE 1 applic Q12HR TEMI Administration Mupirocin 1 applic 08/15/24 21:00 08/28/24 08:23 Mupirocin 2% Oint 22 Gm Tube EACH NARE 1 applic Q12HR TEMI Administration Pantoprazole Sodium 40 mg 08/28/24 21:00 Pantoprazole Sodium Iv 40 Mg Vial IV PUSH Q12HR TEMI Polyethylene Glycol 17 gm 08/15/24 22:20 08/28/24 08:19 Polyethylene Glycol 3350 17 Gm Powd.Pack PO 17 gm DAILY PRN Administration constipation Sodium Chloride 10 ml 08/19/24 22:00 08/28/24 06:46 Central Line Flush IV PUSH 10 ml Q8HR TEMI Administration Sodium Chloride 20 ml 08/19/24 18:43 Central Line Flush IV PUSH PRN PRN after blood draws Radiology Results: ITS Impressions Chest CTA 08/15/24 11:11 IMPRESSION: No pulmonary embolus. No thoracic aortic dissection. Right upper lobe infiltrate with patchy bilateral airspace disease, likely inflammatory/congestive rather than infectious. Small bilateral pleural effusions with adjacent atelectasis. Venous Doppler Study 08/18/24 14:42 IMPRESSION: 1. Bilateral [id number] deep venous thrombosis in the left and right posterior tibial veins. Findings were discussed with the ICU nurse Carlos Herrera at 2:45 PM. Renal Ultrasound 08/19/24 14:10 IMPRESSION: No hydronephrosis or renal calculi. Findings suggesting medical renal disease. Findings within the upper pole of the right kidney consistent with patient's history, as detailed above. Chest/Abdomen/Pelvis CT 08/23/24 09:58 IMPRESSION: CHEST: 1. Bilateral pneumonia which is slightly decreased compared to previous study. Bilateral pleural effusion more on the right side. ABDOMEN/PELVIS: 1. No evidence of appendicitis, diverticulitis or intestinal obstruction. 2. Bilateral tiny kidney stones. 3. Hepatomegaly. 4. No evidence of ileus seen. ADDENDUM: 08/23/24 1042 Possibility of mass in the right kidney upper pole cannot be excluded. Abdomen X-Ray 08/23/24 16:53 IMPRESSION: 1. Dobbhoff type nasoenteric feeding tube with distal tip projecting over the gastric fundus. Head CT 08/26/24 09:32 Impression: No intracranial hemorrhage, mass, or acute infarct. Atrophy and chronic white matter changes, as above. Labs Labs: Laboratory Tests 08/28/24 13:26 08/28/24 06:29 WBC 11.7 H Hgb 6.9 L* Hct 23.2 L Plt Count 225 Calcium 9.2 Phosphorus 4.8 H Magnesium 2.6 H Total Bilirubin 0.3 AST 25 ALT 69 H Alkaline Phosphatase 107 Total Protein 7.0 Albumin 3.5
[2024-08-28] MEDS: EPOETIN ALFA-EPBX 20,000 UNITS/ML VIAL 20000 UNITS IV PUSH (14:51)
--- NOTE | 2024-08-28 15:18 | PM.IMPN ---
Progress Note: A&P Assessment and Plan (1) Anemia: Qualifiers: Anemia type: due to chronic kidney disease Chronic kidney disease stage: stage 3 (moderate) Chronic kidney disease stage 3 subtype: unspecified whether 3a or 3b Qualified Code(s): N18.30 - Chronic kidney disease, stage 3 unspecified; D63.1 - Anemia in chronic kidney disease Code(s): D64.9 - Anemia, unspecified Status: Acute Assessment and Plan: 08/28: Patient dropped her hemoglobin to 6.9 this morning -patient is on heparin infusion for her bilateral lower extremity DVTs -have asked the bedside RN to hold heparin infusion -surgery has been consulted for IVC placement -have ordered 1 unit of packed RBC along with type and screen (2) Acute respiratory failure with hypoxia: Code(s): J96.01 - Acute respiratory failure with hypoxia Status: Acute Assessment and Plan: Acute Respiratory failure secondary to combination of pneumonia and congestive heart failure 08/18: Intubated Repeat CT chest 08/18 MPRESSION: 1. Significant interval progression in an lobar pneumonia along with increasing small bilateral pleural effusions. Patient has elevated procalcitonin and BNP she is positive on intake output balance but her echocardiogram shows normal biventricular size and systolic function Continue Bronchodilators 08/16/2024: Blood cultures negative x2. 08/21/2024: Sputum culture growing MRSA Urine Legionella antigen, mycoplasma pneumonia antibody and urine pneumococcal antigen negative Continue Dialysis to remove fluid, discussed with Nephrology Status post vancomycin cefepime azithromycin (antibiotics ended on 08/27/2024) Patient was off of sedation for 2 days and became tachypneic with asynchronous with ventilator. Patient started on propofol infusion will discontinue, will give sedation vacation after dialysis Weaning trial will depend on improvement in patient's encephalopathy Chest x-ray and ABGs reviewed -will discuss with family regarding tracheostomy and PEG tube placement -Ventilator settings, ABG and chest reviewed -Currently on PEEP of 10 and an FiO2 of 35%, decreased PEEP to 8 -patient has significant amount of secretions which are thick, will add Mucomyst and Pulmozyme nebulizer (3) Congestive heart failure: Qualifiers: Heart failure chronicity: acute on chronic Heart failure type: unspecified Qualified Code(s): I50.9 - Heart failure, unspecified Code(s): I50.9 - Heart failure, unspecified Status: Acute Assessment and Plan: See above (4) Non-ST elevation myocardial infarction (NSTEMI): Code(s): I21.4 - Non-ST elevation (NSTEMI) myocardial infarction Status: Acute Assessment and Plan: History of coronary disease status post PCI in the past now presented with elevated troponin. -Cardiology following -Off ASA as Hb dropped -Other heart medications on hold due to low blood pressure -Statin Hold was slightly elevated LFTs. -No plan for cardiac catheterization at this time. (5) Coronary artery disease: Code(s): I25.10 - Atherosclerotic heart disease of [place] coronary artery without angina pectoris Status: Acute Assessment and Plan: See above (6) Type 2 diabetes mellitus: Code(s): E11.9 - Type 2 diabetes mellitus without complications Status: Chronic Assessment and Plan: Sliding scale insulin Increase Lantus Off steroid (7) Renal failure: Qualifiers: Acute renal failure type: unspecified Chronic kidney disease stage: stage 3 (moderate) Chronic kidney disease stage 3 subtype: unspecified whether 3a or 3b Renal failure chronicity: acute on chronic Qualified Code(s): N17.9 - Acute kidney failure, unspecified; N18.30 - Chronic kidney disease, stage 3 unspecified Code(s): N19 - Unspecified kidney failure Status: Acute Assessment and Plan: Patient presented with creatinine of 1.5. Baseline creatinine unknown She has suprapubic catheter. As per son patient has had a renal tumor which was being monitored and plan was to start radiation therapy by her urology CT scan showed Subtle 2.5 cm mass at the upper pole of the right kidney consistent with provided history of renal tumor. Calcification is at the bilateral kidneys which appear linear and likely atherosclerotic although could not exclude nonobstructing nephrolithiasis. No hydronephrosis in either kidney. Diuretics were held and patient was given albumin bolus Creatinine continue to increase with poor urine output. After discussion with patient's family and construction rep decision was made to initiate dialysis. 08/19 dialysis catheter was placed and patient was dialyzed 1 L fluid was removed 08/20, 08/21, 08/23 08/25 patient was dialyzed Monitor urine output electrolytes and creatinine Dialysis per Nephrology (8) Pneumonia: Qualifiers: Laterality: bilateral Lung location: lower lobe of lung Pneumonia type: due to methicillin-resistant Staphylococcus aureus (MRSA) Qualified Code(s): J15.212 - Pneumonia due to Methicillin resistant Staphylococcus aureus Code(s): J18.9 - Pneumonia, unspecified organism Status: Acute Assessment and Plan: See above (9) Kidney mass: Code(s): N28.89 - Other specified disorders of kidney and ureter Status: Acute Assessment and Plan: Patient's son reports history of kidney mass which is being monitored as it was too big to be removed without total nephrectomy. He states that patient was supposed to get radiation therapy in a month or so before she fractured her ankle. CT scan shows 2.5 cm renal mass on the right side and no hydronephrosis. No intervention at this time (10) DVT (deep venous thrombosis): Qualifiers: Affected thrombotic vein of extremity: tibial Chronicity: acute DVT location: lower extremity Laterality: bilateral Qualified Code(s): I82.443 - Acute embolism and thrombosis of tibial vein, bilateral Code(s): I82.409 - Acute embolism and thrombosis of unspecified deep veins of unspecified lower extremity Status: Acute Assessment and Plan: Bilateral venous Dopplers obtained due to swelling in the legs. Ultrasound showed Bilateral [id number] deep venous thrombosis in the left and right posterior tibial veins. Findings were discussed with the ICU nurse Carlos Herrera at 2:45 PM. Patient started on heparin infusion which will be continuous as long as she can tolerate 08/28/2024: Patient dropped hemoglobin to 6.9, on heparin infusion for DVTs bilaterally -have asked the bedside RN to hold heparin infusion Surgery has been consulted for IVC filter placement (11) Septic shock: Code(s): A41.9 - Sepsis, unspecified organism; R65.21 - Severe sepsis with septic shock Status: Acute Assessment and Plan: Continue Levophed. Off vasopressin -hypotension likely multifactorial, pneumonia, sepsis, sedation medications -currently Levophed at 1 mcg, maintain SBP > 100 mmHg -status post antibiotics (12) Ileus: Code(s): K56.7 - Ileus, unspecified Status: Acute Assessment and Plan: RESOLVED Patient has significant output from her OG tube. She has not been tolerating tube feeds. She is on Reglan Bowel sounds are decreased. KUB does not show anything significant abnormal /7 Dobbhoff placed tube feeds resume 8 will advance tube feeds to 40 mL/hour -patient tolerating tube feeds with minimal residual, positive bowel movement (13) Atrial fibrillation with RVR: Code(s): I48.91 - Unspecified atrial fibrillation Status: Acute Assessment and Plan: Patient went into AFib with RVR after hemodialysis.. She was started on amiodarone infusion. She has converted to sinus bradycardia, amiodarone was discontinued on 08/26/2024 Currently off August infusion due to anemia (14) Encephalopathy: Code(s): G93.40 - Encephalopathy, unspecified Status: Acute Assessment and Plan: Patient was on Versed and fentanyl infusion for many days. She also has renal failure which may lead to accumulation -started on propofol infusion -off propofol patient becomes tachypneic and dyssynchronous with the ventilator leading her to desaturate -08/26/2024: CT scan of the brain No intracranial hemorrhage, mass, or acute infarct.Atrophy and chronic white matter changes. -ammonia levels within normal limits Subjective Date/time seen: 08/28/24 15:18 Interval history: Remain intubated. Heparin on hold due to anemia. Review of Systems Review of Systems: 12 systems were reviewed and are negative except for as per HPI. ROS unobtainable: Yes unobtainable due to endotracheal tube, unobtainable due to medical condition and unobtainable due to mental status Exam Narrative: General: Pt is sedated, intubated and on mechanical ventilation HEENT: Pupils equal and reactive, sclera is clear, ETT in place Lungs/Chest: Trachea central Coarse BS B/L, No crackles or wheezing. Cardiac: RRR. Normal S1 S2. No murmurs Abdomen: Present bowel sounds on today's exam. Obese. Soft. NT. ND. Extremities: Bilateral pitting edema, palpable pedal pulse : Butt in place Neurologic: Currently intubated, sedated, does not open her eyes or follow simple commands. Objective Data Vital Signs Vital Signs: Vital Signs - 24 hr 08/27/24 16:00 08/27/24 16:00 08/27/24 16:00 Temperature 99 F Pulse Rate 90 89 Respiratory Rate 23 H Blood Pressure 96/57 L Pulse Oximetry 98 Oxygen Delivery Fraction of Inspired Oxygen 40 08/27/24 16:00 08/27/24 16:00 08/27/24 16:00 Temperature Pulse Rate 91 90 90 Respiratory Rate 23 H 23 H Blood Pressure 99/62 L Pulse Oximetry Oxygen Delivery Fraction of Inspired Oxygen 08/27/24 16:00 08/27/24 16:23 08/27/24 18:00 Temperature Pulse Rate 90 92 Respiratory Rate Blood Pressure Pulse Oximetry 97 97 Oxygen Delivery Mechanical Ventilation Mechanical Ventilation Fraction of Inspired Oxygen 40 40 08/27/24 18:00 08/27/24 18:00 08/27/24 18:00 Temperature Pulse Rate 92 92 92 Respiratory Rate 25 H 25 H Blood Pressure 95/53 L 95/53 L Pulse Oximetry 99 Oxygen Delivery Fraction of Inspired Oxygen 08/27/24 19:45 08/27/24 20:00 08/27/24 20:00 Temperature 97.4 F L Pulse Rate 89 Respiratory Rate 19 Blood Pressure 88/49 L Pulse Oximetry 98 97 Oxygen Delivery Mechanical Ventilation Fraction of Inspired Oxygen 40 40 08/27/24 20:00 08/27/24 20:00 08/27/24 20:28 Temperature Pulse Rate 91 88 89 Respiratory Rate Blood Pressure Pulse Oximetry 98 Oxygen Delivery Mechanical Ventilation Fraction of Inspired Oxygen 40 08/27/24 20:32 08/27/24 20:42 08/27/24 21:36 Temperature Pulse Rate 91 91 94 Respiratory Rate 14 14 14 Blood Pressure 97/55 L Pulse Oximetry 98 Oxygen Delivery Fraction of Inspired Oxygen 08/27/24 22:00 08/27/24 22:00 08/27/24 22:00 Temperature Pulse Rate 91 91 91 Respiratory Rate 23 H Blood Pressure Pulse Oximetry Oxygen Delivery Fraction of Inspired Oxygen 08/27/24 23:36 08/28/24 00:00 08/28/24 00:00 Temperature Pulse Rate 96 Respiratory Rate Blood Pressure Pulse Oximetry 98 97 Oxygen Delivery Mechanical Ventilation Mechanical Ventilation Fraction of Inspired Oxygen 40 40 40 08/28/24 00:00 08/28/24 00:00 08/28/24 00:00 Temperature 97.6 F Pulse Rate 91 91 94 Respiratory Rate 23 H 24 H Blood Pressure 93/54 L Pulse Oximetry 99 Oxygen Delivery Fraction of Inspired Oxygen 08/28/24 00:00 08/28/24 01:10 08/28/24 01:12 Temperature 101.9 F H Pulse Rate 96 92 Respiratory Rate 22 H Blood Pressure Pulse Oximetry Oxygen Delivery Fraction of Inspired Oxygen 08/28/24 01:12 08/28/24 02:00 08/28/24 02:00 Temperature 101 F H Pulse Rate 92 93 92 Respiratory Rate 22 H 23 H Blood Pressure 92/55 L Pulse Oximetry 99 Oxygen Delivery Fraction of Inspired Oxygen 08/28/24 02:00 08/28/24 02:10 08/28/24 03:00 Temperature Pulse Rate 92 91 91 Respiratory Rate 22 H Blood Pressure Pulse Oximetry 99 Oxygen Delivery Mechanical Ventilation Fraction of Inspired Oxygen 40 08/28/24 04:00 08/28/24 04:00 08/28/24 04:00 Temperature 99.5 F Pulse Rate 91 89 Respiratory Rate 22 H Blood Pressure 93/52 L Pulse Oximetry 98 97 Oxygen Delivery Mechanical Ventilation Fraction of Inspired Oxygen 40 08/28/24 04:00 08/28/24 04:00 08/28/24 05:35 Temperature Pulse Rate 88 86 Respiratory Rate Blood Pressure Pulse Oximetry 98 Oxygen Delivery Mechanical Ventilation Fraction of Inspired Oxygen 35 35 08/28/24 05:44 08/28/24 05:44 08/28/24 06:00 Temperature Pulse Rate 92 92 93 Respiratory Rate 22 H 22 H Blood Pressure Pulse Oximetry Oxygen Delivery Fraction of Inspired Oxygen 08/28/24 06:00 08/28/24 06:00 08/28/24 08:00 Temperature 99.1 F 99 F Pulse Rate 92 91 94 Respiratory Rate 25 H 28 H Blood Pressure 94/57 L 103/67 Pulse Oximetry 95 97 Oxygen Delivery Fraction of Inspired Oxygen 08/28/24 08:00 08/28/24 08:00 08/28/24 08:00 Temperature Pulse Rate 95 95 Respiratory Rate 28 H Blood Pressure 89/54 L Pulse Oximetry Oxygen Delivery Fraction of Inspired Oxygen 35 08/28/24 08:00 08/28/24 08:00 08/28/24 08:03 Temperature Pulse Rate 94 94 Respiratory Rate Blood Pressure Pulse Oximetry 97 98 Oxygen Delivery Mechanical Ventilation Mechanical Ventilation Fraction of Inspired Oxygen 35 35 08/28/24 08:10 08/28/24 08:35 08/28/24 08:35 Temperature Pulse Rate 93 93 Respiratory Rate 30 H 30 H Blood Pressure Pulse Oximetry Oxygen Delivery Mechanical Ventilation Fraction of Inspired Oxygen 35 08/28/24 10:00 08/28/24 10:00 08/28/24 10:00 Temperature Pulse Rate 93 90 93 Respiratory Rate 35 H 35 H Blood Pressure 92/52 L 92/57 L Pulse Oximetry 97 Oxygen Delivery Fraction of Inspired Oxygen 08/28/24 10:00 08/28/24 10:03 08/28/24 10:03 Temperature Pulse Rate 93 93 93 Respiratory Rate 28 H Blood Pressure Pulse Oximetry 97 Oxygen Delivery Mechanical Ventilation Fraction of Inspired Oxygen 35 08/28/24 10:15 08/28/24 10:35 08/28/24 12:00 Temperature Pulse Rate 93 94 92 Respiratory Rate 26 H 30 H Blood Pressure 96/50 L Pulse Oximetry Oxygen Delivery Fraction of Inspired Oxygen 08/28/24 12:00 08/28/24 12:00 08/28/24 12:00 Temperature 98.9 F Pulse Rate 94 Respiratory Rate 31 H Blood Pressure 96/64 L Pulse Oximetry 97 97 Oxygen Delivery Mechanical Ventilation Fraction of Inspired Oxygen 35 35 08/28/24 12:00 08/28/24 13:38 08/28/24 13:38 Temperature Pulse Rate 93 95 95 Respiratory Rate 33 H Blood Pressure Pulse Oximetry 97 Oxygen Delivery Mechanical Ventilation Fraction of Inspired Oxygen 35 08/28/24 13:45 08/28/24 13:45 08/28/24 13:46 Temperature Pulse Rate 95 95 Respiratory Rate 18 37 H Blood Pressure 100/61 Pulse Oximetry Oxygen Delivery Fraction of Inspired Oxygen 35 08/28/24 13:55 08/28/24 13:56 08/28/24 14:00 Temperature Pulse Rate 96 96 93 Respiratory Rate 40 H Blood Pressure 104/67 Pulse Oximetry Oxygen Delivery Fraction of Inspired Oxygen 08/28/24 14:00 08/28/24 14:00 08/28/24 14:00 Temperature Pulse Rate 94 93 96 Respiratory Rate 37 H Blood Pressure 102/70 102/70 98/67 L Pulse Oximetry 97 Oxygen Delivery Fraction of Inspired Oxygen 08/28/24 14:15 08/28/24 14:30 08/28/24 14:45 Temperature Pulse Rate 92 97 79 Respiratory Rate Blood Pressure 102/70 100/60 100/63 Pulse Oximetry Oxygen Delivery Fraction of Inspired Oxygen Intake/Output Intake/Output: Intake & Output 08/25/24 08/26/24 08/27/24 08/28/24 23:59 23:59 23:59 23:59 Intake Total 2051.6 2055.0 2377.4 1329.1 Output Total 2560 45 3102 Balance -508.4 2009.0 -724.6 1329.1 Meds/Results Medications: Active Medications Generic Name Dose Route Start Last Admin Trade Name Freq PRN Reason Stop Dose Admin Acetaminophen 650 mg 08/18/24 21:48 08/28/24 01:10 Acetaminophen Elixir 325 Mg/10.15 Ml Udc PO 650 mg Q4H PRN Administration Mild Pain (1-3) or Fever Acetylcysteine 200 mg 08/28/24 08:00 08/28/24 13:46 Acetylcysteine 20% Inhal Soln 800 Mg/4 Ml Vial INHALATION 200 mg Q6HRT TEMI Administration Dextrose 12.5 gm 08/18/24 05:53 Dextrose 50% 25 Gm/50 Ml Syringe IV PUSH PRN PRN Hypoglycemia Protocol Dornase Oliver 2.5 mg 08/28/24 10:05 08/28/24 13:38 Dornase Oliver Inh Soln 1 Mg/Ml 2.5 Ml Amp INHALATION 08/30/24 20:01 2.5 mg Q12HRT TEMI Administration Glucagon 1 mg 08/18/24 05:53 Glucagon For Inj 1 Mg Vial IM PRN PRN Hypoglycemia Protocol Glucose 15 gm 08/18/24 05:53 Glucose Oral Gel 15 Gm Of Glucse In 37.5 Gm Tube PO PRN PRN Hypoglycemia Protocol Heparin Sodium (Porcine) 5,500 units 08/18/24 15:05 08/18/24 23:23 Heparin Sodium 5,000 Units/Ml Vial IV PUSH 5,500 units PRN PRN Administration aPTT less than 55 seconds Heparin Sodium (Porcine) 3,000 units 08/18/24 15:05 08/23/24 10:58 Heparin Sodium 5,000 Units/Ml Vial IV PUSH 3,000 units PRN PRN Administration aPTT 55 - 70 seconds Dextrose 1,000 mls @ 100 mls/hr 08/18/24 05:53 Dextrose 5% 1,000 Ml IVPB PRN PRN Hypoglycemia Protocol Heparin Sodium/Dextrose 25,000 units in 250 mls @ 23 mls/hr 08/18/24 15:05 08/28/24 08:00 Heparin Sodium/D5w 100 Units/Ml IV CONT 0 units/hr .C20Q44O TEMI 0 mls/hr Titration Protocol 2,300 UNITS/HR Norepinephrine Bitartrate 8 mg in 250 mls @ 0 mls/hr 08/19/24 12:30 08/28/24 14:00 Levophed 8 Mg/D5w 250 Ml IV CONT 0 mcg/min .Q0M TEMI 0 mls/hr Titration Protocol 0 MCG/MIN Albumin Human 50 mls @ 999 mls/hr 08/21/24 06:28 Albutein IVPB 09/20/24 06:27 Q10M PRN HYPOTENSION Propofol 100 mls @ 19.341 mls/hr 08/25/24 14:25 08/28/24 10:15 Diprivan IV CONT 35 mcg/kg/min .Q5H11M TEMI 19.34 mls/hr Titration Protocol 35 MCG/KG/MIN Sodium Chloride 250 mls @ 30 mls/hr 08/28/24 07:30 Normal Saline Iv IV CONT 08/28/24 15:49 .Q8H20M STA Insulin Aspart 4 - 8 units 08/20/24 21:05 08/28/24 13:17 Insulin Aspart (*Bkc) 100 Units/Ml SUB-Q 4 units Q4HR TEMI Administration Protocol Insulin Glargine 70 units 08/28/24 09:00 08/28/24 08:20 Insulin Glargine (*Bkc) 100 Units/Ml SUB-Q 70 units QAM TEMI Administration Ipratropium Ider 0.5 mg 08/20/24 07:40 08/25/24 20:33 Ipratropium Br 0.02% Inh Soln 0.5 Mg/2.5 Ml Vial INHALATION 0.5 mg Q6HRT PRN Administration Wheezing Levalbuterol HCl 1.25 mg 08/20/24 07:40 08/28/24 10:03 Levalbuterol Neb 1.25 Mg/3 Ml INHALATION 1.25 mg Q6HRT PRN Administration Wheezing Levalbuterol HCl 1.25 mg 08/28/24 14:00 08/28/24 13:46 Levalbuterol Neb 1.25 Mg/3 Ml INHALATION 1.25 mg Q6HRT TEMI Administration Metoclopramide HCl 10 mg 08/23/24 08:00 08/28/24 13:21 Metoclopramide Hcl 10 Mg/10 Ml Soln Udc PO 10 mg Q6H TEMI Administration Multi-Ingred Cream/Lotion/Oil/Oint 1 applic 08/18/24 09:00 08/28/24 08:19 Mineral Oil/White Petrolatum Ointment EACH EYE 1 applic Q12HR TEMI Administration Mupirocin 1 applic 08/15/24 21:00 08/28/24 08:23 Mupirocin 2% Oint 22 Gm Tube EACH NARE 1 applic Q12HR TEMI Administration Pantoprazole Sodium 40 mg 08/28/24 21:00 Pantoprazole Sodium Iv 40 Mg Vial IV PUSH Q12HR TEMI Polyethylene Glycol 17 gm 08/15/24 22:20 08/28/24 08:19 Polyethylene Glycol 3350 17 Gm Powd.Pack PO 17 gm DAILY PRN Administration constipation Sodium Chloride 10 ml 08/19/24 22:00 08/28/24 06:46 Central Line Flush IV PUSH 10 ml Q8HR TEMI Administration Sodium Chloride 20 ml 08/19/24 18:43 Central Line Flush IV PUSH PRN PRN after blood draws Radiology Results: ITS Impressions Chest CTA 08/15/24 11:11 IMPRESSION: No pulmonary embolus. No thoracic aortic dissection. Right upper lobe infiltrate with patchy bilateral airspace disease, likely inflammatory/congestive rather than infectious. Small bilateral pleural effusions with adjacent atelectasis. Venous Doppler Study 08/18/24 14:42 IMPRESSION: 1. Bilateral [id number] deep venous thrombosis in the left and right posterior tibial veins. Findings were discussed with the ICU nurse Carlos Herrera at 2:45 PM. Renal Ultrasound 08/19/24 14:10 IMPRESSION: No hydronephrosis or renal calculi. Findings suggesting medical renal disease. Findings within the upper pole of the right kidney consistent with patient's history, as detailed above. Chest/Abdomen/Pelvis CT 08/23/24 09:58 IMPRESSION: CHEST: 1. Bilateral pneumonia which is slightly decreased compared to previous study. Bilateral pleural effusion more on the right side. ABDOMEN/PELVIS: 1. No evidence of appendicitis, diverticulitis or intestinal obstruction. 2. Bilateral tiny kidney stones. 3. Hepatomegaly. 4. No evidence of ileus seen. ADDENDUM: 08/23/24 1042 Possibility of mass in the right kidney upper pole cannot be excluded. Abdomen X-Ray 08/23/24 16:53 IMPRESSION: 1. Dobbhoff type nasoenteric feeding tube with distal tip projecting over the gastric fundus. Head CT 08/26/24 09:32 Impression: No intracranial hemorrhage, mass, or acute infarct. Atrophy and chronic white matter changes, as above. Labs Labs: Laboratory Results - last 24 hr 08/27/24 08/27/24 08/28/24 16:40 19:50 01:02 WBC RBC Hgb Hct MCV MCH MCHC RDW Plt Count MPV Immature Gran % (Auto) Neut % (Auto) Lymph % (Auto) [place] % (Auto) Eos % (Auto) Baso % (Auto) Lymph # (Auto) [place] # (Auto) Eos # (Auto) Baso # (Auto) Abs Immat Gran (auto) Absolute Neuts (auto) Absolute Nucleated RBC Total Counted Neutrophils % (Manual) Band Neutrophils % Lymphocytes % (Manual) Monocytes % (Manual) Metamyelocytes % Nucleated RBC % Abs Neuts (Manual) Abs Lymphs (Manual) Abs Monocytes (Manual) Platelet Estimate Large Platelets Hypochromasia Anisocytosis Schistocytes APTT Puncture Site ABG pH ABG pCO2 ABG pO2 ABG PO2/FiO2 Ratio ABG HCO3 ABG O2 Saturation ABG O2 Content ABG Base Excess A-a Gradient Oxyhemoglobin Carboxyhemoglobin Methemoglobin Reduced Hemoglobin Total Hemoglobin O2 Delivery Device O2 Liters/Min Minute Volume Vent Rate Vent Mode FiO2 Tidal Volume PEEP Peak Inspir Pressure Pressure Support Sodium Potassium Chloride Carbon Dioxide Anion Gap BUN Creatinine Estim Creat Clear Calc Estimated GFR Glucose POC Capillary Glucose 260 H 230 H 303 H Calcium Phosphorus Magnesium Total Bilirubin AST ALT Alkaline Phosphatase Total Protein Albumin Blood Type Antibody Screen CINDY, IgG Interpret CINDY, Poly Interpret CINDY, Complement Interp Crossmatch 08/28/24 08/28/24 08/28/24 05:25 06:10 06:29 WBC 11.7 H RBC 2.71 L Hgb 6.9 L* Hct 23.2 L MCV 85.6 MCH 25.5 L MCHC 29.7 L RDW 19.3 H Plt Count 225 MPV 11.9 H Immature Gran % (Auto) Not Reportable Neut % (Auto) Not Reportable Lymph % (Auto) Not Reportable [place] % (Auto) Not Reportable Eos % (Auto) Not Reportable Baso % (Auto) Not Reportable Lymph # (Auto) Not Reportable [place] # (Auto) Not Reportable Eos # (Auto) Not Reportable Baso # (Auto) Not Reportable Abs Immat Gran (auto) Not Reportable Absolute Neuts (auto) Not Reportable Absolute Nucleated RBC Not Reportable Total Counted 100 Neutrophils % (Manual) 75 H Band Neutrophils % 3 Lymphocytes % (Manual) 19.0 Monocytes % (Manual) 2 L Metamyelocytes % 1 Nucleated RBC % Not Reportable Abs Neuts (Manual) 9.12 H Abs Lymphs (Manual) 2.22 Abs Monocytes (Manual) 0.23 Platelet Estimate Adequate Large Platelets Present Hypochromasia 1+ Anisocytosis 1+ Schistocytes None seen APTT 98.7 H Puncture Site Left radial ABG pH 7.436 ABG pCO2 38.2 ABG pO2 85.7 ABG PO2/FiO2 Ratio 2.45 ABG HCO3 25.1 ABG O2 Saturation 96.8 ABG O2 Content 10.2 L ABG Base Excess 0.9 A-a Gradient 119.4 Oxyhemoglobin 96.1 Carboxyhemoglobin 0.5 Methemoglobin 0.2 Reduced Hemoglobin 3.2 Total Hemoglobin 7.4 L* O2 Delivery Device Ventilator O2 Liters/Min Not Reportable Minute Volume Not Reportable Vent Rate 18 Vent Mode Cmv FiO2 35 Tidal Volume 320 PEEP 10 Peak Inspir Pressure Not Reportable Pressure Support Not Reportable Sodium 133 L Potassium 4.1 Chloride 92 L Carbon Dioxide 25 Anion Gap 16 H BUN 82 H Creatinine 3.67 H Estim Creat Clear Calc 12 Estimated GFR 12 L Glucose 316 H POC Capillary Glucose 311 H Calcium 9.2 Phosphorus 4.8 H Magnesium 2.6 H Total Bilirubin 0.3 AST 25 ALT 69 H Alkaline Phosphatase 107 Total Protein 7.0 Albumin 3.5 Blood Type Antibody Screen CINDY, IgG Interpret CINDY, Poly Interpret CINDY, Complement Interp Crossmatch 08/28/24 08/28/24 08/28/24 07:45 08:14 13:26 WBC 13.3 H RBC 2.76 L Hgb 7.0 L Hct 23.3 L MCV 84.4 MCH 25.4 L MCHC 30.0 L RDW 19.3 H Plt Count 240 MPV 11.8 H Immature Gran % (Auto) Neut % (Auto) Lymph % (Auto) [place] % (Auto) Eos % (Auto) Baso % (Auto) Lymph # (Auto) [place] # (Auto) Eos # (Auto) Baso # (Auto) Abs Immat Gran (auto) Absolute Neuts (auto) Absolute Nucleated RBC Total Counted Neutrophils % (Manual) Band Neutrophils % Lymphocytes % (Manual) Monocytes % (Manual) Metamyelocytes % Nucleated RBC % Abs Neuts (Manual) Abs Lymphs (Manual) Abs Monocytes (Manual) Platelet Estimate Large Platelets Hypochromasia Anisocytosis Schistocytes APTT Puncture Site ABG pH ABG pCO2 ABG pO2 ABG PO2/FiO2 Ratio ABG HCO3 ABG O2 Saturation ABG O2 Content ABG Base Excess A-a Gradient Oxyhemoglobin Carboxyhemoglobin Methemoglobin Reduced Hemoglobin Total Hemoglobin O2 Delivery Device O2 [place]/Min Minute Volume Vent Rate Vent Mode FiO2 Tidal Volume PEEP Peak Inspir Pressure Pressure Support Sodium Potassium Chloride Carbon Dioxide Anion Gap BUN Creatinine Estim Creat Clear Calc Estimated GFR Glucose POC Capillary Glucose 314 H Calcium Phosphorus Magnesium Total Bilirubin AST ALT Alkaline Phosphatase Total Protein Albumin Blood Type AB Positive Antibody Screen Positive CINDY, IgG Interpret Positive CINDY, Poly Interpret Positive CINDY, Complement Interp TNP Crossmatch See Detail Quality VTE Prophylaxis VTE prophylaxis: mechanical ordered and pharmacologic ordered Hospitalist MIPS Advance Care Plan I have confirmed that the patient's Advanced Care Plan is present, code status is documented, or surrogate decision maker is listed in patient medical record.: Yes Medication Reconciliation I have utilized all available resources to obtain, update and review the patients current medications (includes all prescriptions, OTC, herbals, cannabis, and nutritional supplements).: Yes
[2024-08-28] MEDS: PROPOFOL IV EMULSION 100 ML 5.53 MG IV CONT (17:40)
[2024-08-28 17:49] LABS: Glucose Point of Care 227 mg/dl (65-105)
[2024-08-28 17:49] LABS: Glucose Point of Care 166 mg/dl (65-105)
[2024-08-28 17:49] LABS: Glucose Point of Care 170 mg/dl (65-105)
[2024-08-28 21:18] LABS: Glucose Point of Care 307 mg/dl (65-105)
[2024-08-28 23:18] LABS: Glucose Point of Care 250 mg/dl (65-105)
[2024-08-29] VITALS (53 sets, daily range): BP systolic 89–123; BP diastolic 57–78; PULSE 82–108; RESP 22–36; TEMP 36.4–37.6; O2SAT 86–99
[2024-08-29] MEDS: INSULIN ASPART (*BKC) 100 UNITS/ML SUB-Q ×4 (01:00→12:41)
[2024-08-29] MEDS: LEVALBUTEROL NEB 1.25 MG/3 ML INHALATION ×5 (01:52→20:00)
[2024-08-29] MEDS: ACETYLCYSTEINE 20% INHAL SOLN 800 MG/4 ML VIAL 200 MG INHALATION ×4 (01:52→20:00)
[2024-08-29] MEDS: PROPOFOL IV EMULSION 100 ML 16.58 MG IV CONT (02:00)
[2024-08-29 05:25] LABS: Base Excess ABG 0.3 mEq/l (+/-2.0); Carboxyhemoglobin 0.5 % THb (0-2.0); Fractional Inspired Oxygen 35 %; HCO3 ABG 23.7 mEq/l (22.0-26.0); Methemoglobin ABG 0.1 %THb (0-1.5); Oxygen Content ABG 13.1 %vol (16.0-22.0); Oxygen Saturation ABG 96.8 % (95.0-100.0); Oxyhemoglobin 95.9 % THb (90.0-100.0); PCO2 ABG 33.5 mmHg (35.0-45.0); PO2 ABG 82.6 mmHg (80.0-100.0); PO2 FiO2 Ratio Arterial Blood 2.36 %; Reduced Hemoglobin 3.5 %THb (0-5.0); Total Hemoglobin 9.6 g/dL (12.0-18.0); pH ABG 7.467 (7.350-7.450)
[2024-08-29 05:28] LABS: Arterial Blood Gas Ventilator rate 18 /MIN; Device VENTILATOR; Modified Allen's Test Pass; Site Drawn RIGHT RADIAL
[2024-08-29 05:29] LABS: Arterial Blood Gas PEEP 8 cmH2O; Arterial Blood Gas Tidal Volume 320 ml; Arterial Blood Gas Vent Mode CMV
[2024-08-29 06:33] LABS: Hemoglobin 8.8 g/dL (12.0-15.0); Mean Corpuscular HGB Conc 30.3 g/dl (32-36); Mean Corpuscular Volume 85.5 fl (80-100); Mean Platelet Volume 11.4 fl (7.4-10.4); Platelet Count Result 231 k/mm3 (150-375); Red Blood Count 3.39 M/mm3 (4.2-5.4); Red Cell Distribution Width 18.6 % (11.5-14.5); White Blood Count 14.3 K/mm3 (4.5-10.0)
[2024-08-29 06:42] LABS: Alanine Aminotransferase 61 U/L (6-35); Albumin Level 3.9 g/dL (3.5-5.1); Alkaline Phosphatase 110 U/L (38-126); Anion Gap 17 mmol/L (4-12); Aspartate Amino Transferase 25 U/L (14-36); Bilirubin,Total 0.6 mg/dL (0.2-1.3); Blood Urea Nitrogen 78 mg/dL (7-17); Calcium 9.1 mg/dL (8.4-10.2); Carbon Dioxide 24 mmol/L (22-30); Chloride 94 mmol/L (98-107); Estimated CRCL calculation 15 ml/min; Estimated Glomerular Filt Rate 15; Glucose 301 mg/dL (65-110); Magnesium 2.5 mg/dL (1.6-2.3); Phosphorus 4.7 mg/dL (2.5-4.5); Potassium 4.5 mmol/L (3.4-5.0); Sodium 135 mmol/L (137-145)
[2024-08-29 07:13] LABS: Band Neutrophils Percent 5 % (0-6); Eosinophils Absolute Manual 0.14 K/mm3 (0.02-0.50); Eosinophils Percent Manual 1 % (0-4); Lymphocytes Absolute Manual 1.85 K/mm3 (1.1-4.5); Monocytes Percent Manual 7 % (3-9); Neutrophils Absolute Manual 11.29 K/mm3 (1.7-7.2); Neutrophils Percent Manual 74 % (46-73); Nucleated Red Blood Cells 3 %; Total Cells Counted 100
[2024-08-29 07:15] LABS: Anisocytosis 1+; Platelet Estimate Adequate (Adequate); Polychromasia 1+; Schistocytes None Seen
[2024-08-29] MEDS: PROPOFOL IV EMULSION 100 ML 11.05 MG IV CONT (07:41)
[2024-08-29] MEDS: CENTRAL LINE FLUSH 10 ML IV PUSH ×3 (07:44→21:15)
[2024-08-29] MEDS: METOCLOPRAMIDE HCL 10 MG/10 ML SOLN UDC PO ×3 (07:44→21:13)
[2024-08-29 07:45] LABS: Glucose Point of Care 339 mg/dl (65-105)
[2024-08-29] MEDS: DORNASE ALFA INH SOLN 1 MG/ML 2.5 ML AMP 2.5 MG INHALATION ×2 (08:06→20:00)
[2024-08-29] MEDS: HEPARIN SODIUM 5,000 UNITS/ML VIAL 5000 UNITS SUB-Q ×3 (08:10→21:15)
[2024-08-29] MEDS: MEROPENEM 500 MG/NS 100 ML 500 MG/100 ML BAG 200 MG IVPB (08:10)
[2024-08-29] MEDS: PANTOPRAZOLE SODIUM IV 40 MG VIAL IV PUSH ×2 (08:15→21:13)
[2024-08-29] MEDS: MINERAL OIL/WHITE PETROLATUM OINTMENT 1 APPLIC EACH EYE ×2 (08:16→21:13)
[2024-08-29] MEDS: INSULIN GLARGINE (*BKC) 100 UNITS/ML 50 UNITS SUB-Q (08:22)
[2024-08-29] MEDS: VANCOMYCIN 1,250 MG/NS 250 ML 1,250 MG/250 ML BAG 166.67 MG IVPB (08:23)
[2024-08-29 09:17] LABS: Triglycerides 282 mg/dL (<150)
--- NOTE | 2024-08-29 09:55 | P.PNINT_ITS ---
Progress Note: A&P Assessment and Plan (1) Anemia: Qualifiers: Anemia type: due to chronic kidney disease Chronic kidney disease stage: stage 3 (moderate) Chronic kidney disease stage 3 subtype: unspecified whether 3a or 3b Qualified Code(s): N18.30 - Chronic kidney disease, stage 3 unspecified; D63.1 - Anemia in chronic kidney disease Code(s): D64.9 - Anemia, unspecified Status: Acute Assessment and Plan: 08/28: Patient dropped her hemoglobin to 6.9 this morning -patient is on heparin infusion for her bilateral lower extremity DVTs -have asked the bedside RN to hold heparin infusion -appreciate surgery evaluation and recommendations, will hold off IVC filter placement, will recheck venous Dopplers on 08/30/2024, if signs of propagation of DVT, then will decide with filter on continued anticoagulation -08/28: Transfused 1 unit of packed RBCs -hemoglobin stable this more (2) Acute respiratory failure with hypoxia: Code(s): J96.01 - Acute respiratory failure with hypoxia Status: Acute Assessment and Plan: Acute Respiratory failure secondary to combination of pneumonia and congestive heart failure 08/18: Intubated Repeat CT chest 08/18 MPRESSION: 1. Significant interval progression in an lobar pneumonia along with increasing small bilateral pleural effusions. Patient has elevated procalcitonin and BNP she is positive on intake output balance but her echocardiogram shows normal biventricular size and systolic function Continue Bronchodilators 08/16/2024: Blood cultures negative x2. 08/21/2024: Sputum culture growing MRSA Urine Legionella antigen, mycoplasma pneumonia antibody and urine pneumococcal antigen negative Continue Dialysis to remove fluid, discussed with Nephrology Status post vancomycin cefepime azithromycin (antibiotics ended on 08/27/2024) Patient was off of sedation for 2 days and became tachypneic with asynchronous with ventilator. Patient started on propofol infusion will discontinue, will give sedation vacation after dialysis Weaning trial will depend on improvement in patient's encephalopathy Chest x-ray and ABGs reviewed -Currently on PEEP of 10 and an FiO2 of 35%, decreased PEEP to 8 -patient has significant amount of secretions which are thick, will add Mucomyst and Pulmozyme nebulizer -chest x-ray continues shows bilateral infiltrates for despite fluid removal, patient continues to have thick secretions, will be start vancomycin and add meropenem (3) Congestive heart failure: Qualifiers: Heart failure chronicity: acute on chronic Heart failure type: unspecified Qualified Code(s): I50.9 - Heart failure, unspecified Code(s): I50.9 - Heart failure, unspecified Status: Acute Assessment and Plan: See above (4) Non-ST elevation myocardial infarction (NSTEMI): Code(s): I21.4 - Non-ST elevation (NSTEMI) myocardial infarction Status: Acute Assessment and Plan: History of coronary disease status post PCI in the past now presented with elevated troponin. -Cardiology following -Off ASA as Hb dropped -Other heart medications on hold due to low blood pressure -Statin Hold was slightly elevated LFTs. -No plan for cardiac catheterization at this time. (5) Coronary artery disease: Code(s): I25.10 - Atherosclerotic heart disease of [place] coronary artery without angina pectoris Status: Acute Assessment and Plan: See above (6) Type 2 diabetes mellitus: Code(s): E11.9 - Type 2 diabetes mellitus without complications Status: Chronic Assessment and Plan: Sliding scale insulin Increase Lantus Off steroid (7) Renal failure: Qualifiers: Acute renal failure type: unspecified Chronic kidney disease stage: stage 3 (moderate) Chronic kidney disease stage 3 subtype: unspecified whether 3a or 3b Renal failure chronicity: acute on chronic Qualified Code(s): N17.9 - Acute kidney failure, unspecified; N18.30 - Chronic kidney disease, stage 3 unspecified Code(s): N19 - Unspecified kidney failure Status: Acute Assessment and Plan: Patient presented with creatinine of 1.5. Baseline creatinine unknown She has suprapubic catheter. As per son patient has had a renal tumor which was being monitored and plan was to start radiation therapy by her urology CT scan showed Subtle 2.5 cm mass at the upper pole of the right kidney consistent with provided history of renal tumor. Calcification is at the bilateral kidneys which appear linear and likely atherosclerotic although could not exclude nonobstructing nephrolithiasis. No hydronephrosis in either kidney. Diuretics were held and patient was given albumin bolus Creatinine continue to increase with poor urine output. After discussion with patient's family and advertising display rotator decision was made to initiate dialysis. 08/19 dialysis catheter was placed and patient was dialyzed 1 L fluid was removed 08/20, 08/21, 08/23 08/25 patient was dialyzed Monitor urine output electrolytes and creatinine Dialysis per Nephrology (8) Pneumonia: Qualifiers: Laterality: bilateral Lung location: lower lobe of lung Pneumonia type: due to methicillin-resistant Staphylococcus aureus (MRSA) Qualified Code(s): J15.212 - Pneumonia due to Methicillin resistant Staphylococcus aureus Code(s): J18.9 - Pneumonia, unspecified organism Status: Acute Assessment and Plan: See above (9) Kidney mass: Code(s): N28.89 - Other specified disorders of kidney and ureter Status: Acute Assessment and Plan: Patient's son reports history of kidney mass which is being monitored as it was too big to be removed without total nephrectomy. He states that patient was supposed to get radiation therapy in a month or so before she fractured her ankle. CT scan shows 2.5 cm renal mass on the right side and no hydronephrosis. No intervention at this time (10) DVT (deep venous thrombosis): Qualifiers: Affected thrombotic vein of extremity: tibial Chronicity: acute DVT location: lower extremity Laterality: bilateral Qualified Code(s): I82.443 - Acute embolism and thrombosis of tibial vein, bilateral Code(s): I82.409 - Acute embolism and thrombosis of unspecified deep veins of unspecified lower extremity Status: Acute Assessment and Plan: Bilateral venous Dopplers obtained due to swelling in the legs. Ultrasound showed Bilateral [id number] deep venous thrombosis in the left and right posterior tibial veins. Findings were discussed with the ICU nurse Carlos Herrera at 2:45 PM. Patient started on heparin infusion which will be continuous as long as she can tolerate 08/28/2024: Patient dropped hemoglobin to 6.9, on heparin infusion for DVTs bilaterally -have asked the bedside RN to hold heparin infusion Surgery has been consulted for IVC filter placement (11) Septic shock: Code(s): A41.9 - Sepsis, unspecified organism; R65.21 - Severe sepsis with septic shock Status: Acute Assessment and Plan: Continue Levophed. Off vasopressin -hypotension likely multifactorial, pneumonia, sepsis, sedation medications -currently Levophed at 1 mcg, maintain SBP > 100 mmHg -status post antibiotics (12) Ileus: Code(s): K56.7 - Ileus, unspecified Status: Acute Assessment and Plan: RESOLVED Patient has significant output from her OG tube. She has not been tolerating tube feeds. She is on Reglan Bowel sounds are decreased. KUB does not show anything significant abnormal 08/23 Dobbhoff placed tube feeds resume 08/24 will advance tube feeds to 40 mL/hour -patient tolerating tube feeds with minimal residual, positive bowel movement (13) Atrial fibrillation with RVR: Code(s): I48.91 - Unspecified atrial fibrillation Status: Acute Assessment and Plan: Patient went into AFib with RVR after hemodialysis.. She was started on amiodarone infusion. She has converted to sinus bradycardia, amiodarone was discontinued on 08/26/2024 Currently off August infusion due to anemia (14) Encephalopathy: Code(s): G93.40 - Encephalopathy, unspecified Status: Acute Assessment and Plan: Patient was on Versed and fentanyl infusion for many days. She also has renal failure which may lead to accumulation -started on propofol infusion -off propofol patient becomes tachypneic and dyssynchronous with the ventilator leading her to desaturate -08/26/2024: CT scan of the brain No intracranial hemorrhage, mass, or acute infarct.Atrophy and chronic white matter changes. -ammonia levels within normal limits Plan DVT prophylaxis -off heparin infusion due to anemia Stress ulcer prophylaxis -increase Protonix to q.12 hours Nutrition -continue tube feeds Code Status - Full Code 08/28: Had a long discussion with both sons, Luke and Geoffrey. I updated them with patient's condition plan of care. They understand that the patient has multiple medical problems but requested that she gets a tracheostomy and PEG tube placement as they want to give her a complete chance to recover / Dr Crawford and updated patient's son and his at bedside I answered all his questions. 08/19 Dr Crawford also met with patient's both sons as they wanted to proceed with hemodialysis. 08/22 Dr Crawford met with patient's 2 sons and updated them with patient's status including continued respiratory failure, shock, new issues of AFib with RVR and. I also updated them with treatment plan and answered all the questions. Total Critical Care Time - 34 minutes Due to a high probability of clinically significant, life threatening deterioration, the patient required my highest level of preparedness to intervene emergently and I personally spent this critical care time directly and personally managing the patient. This critical care time included obtaining a history; examining the patient; pulse oximetry; ordering and review of studies; arranging urgent treatment with development of a management plan; evaluation of patient's response to treatment; frequent reassessment; and discussions with other providers. It was exclusive of separately billable procedures and treating other patients and teaching time. Please see Assessment and Plan section and the rest of the note for further information on patient assessment and treatment. This dictation may have been done utilizing a voice recognition system. Attempts have been made to correct errors. However, there may be uncorrected grammatical, spelling, and recognitions errors present. Subjective Date/time seen: 08/29/24 09:55 Interval history: 08/18: Intubated 08/19 temporary dialysis catheter placed patient was dialyzed 08/21 vent into AFib with RVR. Converted to sinus Steve with amiodarone 08/23 Dobbhoff tube inserted 08/28: Transfuse 1 unit of PRBC 08/29/2024: Patient seen and examined the ICU, remains intubated on CMV mode of ventilation, peep of 8, 35% FiO2. Sedated with propofol infusion, does not open eyes or follow simple commands. Remains on Levophed at 1 mcg/min. Almost anuric, afebrile. Tolerating tube feeds. Patient had dialysis done yesterday with 3826 mL in fluid removal. She has had thick and profuse secretions Was transfuse 1 unit of packed RBCs yesterday. Hemoglobin 8.8 this morning (6.9 yesterday) Review of Systems Review of Systems: ROS unobtainable: Yes unobtainable due to endotracheal tube, unobtainable due to medical condition and unobtainable due to mental status Exam Narrative: General: Pt is sedated, intubated and on mechanical ventilation HEENT: Pupils equal and reactive, sclera is clear, ETT in place Lungs/Chest: Trachea central Coarse BS B/L, bilateral rales, no wheezing, adequa te air entry Cardiac: RRR. Normal S1 S2. No murmurs Abdomen: Soft, nontender, nondistended, hypoactive bowel sounds Extremities: Bilateral pitting edema, palpable pedal pulse : Btut in place Neurologic: Currently intubated, sedated, does not open her eyes or follow simple commands. Objective Data Vital Signs Vital Signs: Vital Signs - 24 hr 08/28/24 10:00 08/28/24 10:00 08/28/24 10:00 Temperature Pulse Rate 93 90 93 Respiratory Rate 35 H 35 H Blood Pressure 92/52 L 92/57 L Pulse Oximetry 97 Oxygen Delivery Fraction of Inspired Oxygen 08/28/24 10:00 08/28/24 10:03 08/28/24 10:03 Temperature Pulse Rate 93 93 93 Respiratory Rate 28 H Blood Pressure Pulse Oximetry 97 Oxygen Delivery Mechanical Ventilation Fraction of Inspired Oxygen 35 08/28/24 10:15 08/28/24 10:30 08/28/24 10:35 Temperature Pulse Rate 93 93 94 Respiratory Rate 26 H 27 H 30 H Blood Pressure Pulse Oximetry Oxygen Delivery Fraction of Inspired Oxygen 08/28/24 10:40 08/28/24 12:00 08/28/24 12:00 Temperature 98.9 F Pulse Rate 94 92 94 Respiratory Rate 33 H 31 H Blood Pressure 96/50 L 96/64 L Pulse Oximetry 97 Oxygen Delivery Fraction of Inspired Oxygen 08/28/24 12:00 08/28/24 12:00 08/28/24 12:00 Temperature Pulse Rate 93 Respiratory Rate Blood Pressure Pulse Oximetry 97 Oxygen Delivery Mechanical Ventilation Fraction of Inspired Oxygen 35 35 08/28/24 12:00 08/28/24 13:38 08/28/24 13:38 Temperature Pulse Rate 94 95 95 Respiratory Rate 31 H 33 H Blood Pressure Pulse Oximetry 97 Oxygen Delivery Mechanical Ventilation Fraction of Inspired Oxygen 35 08/28/24 13:45 08/28/24 13:45 08/28/24 13:46 Temperature Pulse Rate 95 95 Respiratory Rate 18 37 H Blood Pressure 100/61 Pulse Oximetry Oxygen Delivery Fraction of Inspired Oxygen 35 08/28/24 13:55 08/28/24 13:56 08/28/24 14:00 Temperature Pulse Rate 96 96 93 Respiratory Rate 40 H Blood Pressure 104/67 Pulse Oximetry Oxygen Delivery Fraction of Inspired Oxygen 08/28/24 14:00 08/28/24 14:00 08/28/24 14:00 Temperature Pulse Rate 94 93 96 Respiratory Rate 37 H Blood Pressure 102/70 102/70 98/67 L Pulse Oximetry 97 Oxygen Delivery Fraction of Inspired Oxygen 08/28/24 14:00 08/28/24 14:15 08/28/24 14:30 Temperature Pulse Rate 96 92 97 Respiratory Rate 35 H Blood Pressure 102/70 100/60 Pulse Oximetry Oxygen Delivery Fraction of Inspired Oxygen 08/28/24 14:45 08/28/24 15:00 08/28/24 15:15 Temperature Pulse Rate 79 85 91 Respiratory Rate Blood Pressure 100/63 99/67 L 98/63 L Pulse Oximetry Oxygen Delivery Fraction of Inspired Oxygen 08/28/24 15:30 08/28/24 15:45 08/28/24 16:00 Temperature Pulse Rate 84 93 93 Respiratory Rate Blood Pressure 92/60 L 98/59 L 92/56 L Pulse Oximetry Oxygen Delivery Fraction of Inspired Oxygen 08/28/24 16:00 08/28/24 16:00 08/28/24 16:00 Temperature 99.2 F Pulse Rate 98 97 92 Respiratory Rate 36 H 36 H Blood Pressure 103/65 103/65 Pulse Oximetry 97 Oxygen Delivery Fraction of Inspired Oxygen 08/28/24 16:00 08/28/24 16:00 08/28/24 16:00 Temperature Pulse Rate 93 Respiratory Rate Blood Pressure Pulse Oximetry 98 Oxygen Delivery Mechanical Ventilation Fraction of Inspired Oxygen 35 35 08/28/24 16:25 08/28/24 16:30 08/28/24 16:35 Temperature Pulse Rate 93 86 93 Respiratory Rate Blood Pressure 96/62 L 98/57 L Pulse Oximetry 98 Oxygen Delivery Mechanical Ventilation Fraction of Inspired Oxygen 35 08/28/24 16:45 08/28/24 17:00 08/28/24 17:15 Temperature Pulse Rate 94 95 96 Respiratory Rate Blood Pressure 102/58 L 98/54 L 99/58 L Pulse Oximetry Oxygen Delivery Fraction of Inspired Oxygen 08/28/24 17:30 08/28/24 17:40 08/28/24 17:45 Temperature Pulse Rate 98 98 98 Respiratory Rate 36 H Blood Pressure 103/65 103/58 L Pulse Oximetry Oxygen Delivery Fraction of Inspired Oxygen 08/28/24 18:00 08/28/24 18:00 08/28/24 18:00 Temperature Pulse Rate 100 100 99 Respiratory Rate 38 H Blood Pressure 105/62 105/62 Pulse Oximetry 97 Oxygen Delivery Fraction of Inspired Oxygen 08/28/24 18:00 08/28/24 18:00 08/28/24 18:10 Temperature Pulse Rate 101 H 105 H 100 Respiratory Rate 37 H Blood Pressure 109/58 L Pulse Oximetry 98 Oxygen Delivery Mechanical Ventilation Fraction of Inspired Oxygen 35 08/28/24 18:15 08/28/24 18:33 08/28/24 18:45 Temperature 97.6 F Pulse Rate 99 93 103 H Respiratory Rate 38 H Blood Pressure 107/66 108/52 L 109/58 L Pulse Oximetry Oxygen Delivery Fraction of Inspired Oxygen 08/28/24 19:01 08/28/24 19:18 08/28/24 19:54 Temperature 98.9 F 99 F Pulse Rate 101 H 104 H 108 H Respiratory Rate 36 H 38 H 28 H Blood Pressure 96/64 L 101/65 Pulse Oximetry 97 97 Oxygen Delivery Fraction of Inspired Oxygen 08/28/24 20:00 08/28/24 20:00 08/28/24 20:00 Temperature Pulse Rate 108 H Respiratory Rate Blood Pressure Pulse Oximetry Oxygen Delivery Mechanical Ventilation Fraction of Inspired Oxygen 35 35 08/28/24 20:00 08/28/24 20:02 08/28/24 20:05 Temperature 98.7 F Pulse Rate 108 H 108 H 107 H Respiratory Rate 26 H 37 H Blood Pressure 106/65 106/65 Pulse Oximetry 96 Oxygen Delivery Fraction of Inspired Oxygen 08/28/24 20:12 08/28/24 20:18 08/28/24 20:20 Temperature 98.7 F Pulse Rate 108 H 108 H 104 H Respiratory Rate 38 H 35 H Blood Pressure 101/68 Pulse Oximetry 96 96 Oxygen Delivery Mechanical Ventilation Fraction of Inspired Oxygen 35 08/28/24 21:11 08/28/24 21:18 08/28/24 21:47 Temperature 97.8 F Pulse Rate 106 H 106 H 102 H Respiratory Rate 28 H 40 H Blood Pressure 106/70 83/55 L Pulse Oximetry 94 Oxygen Delivery Fraction of Inspired Oxygen 08/28/24 22:00 08/28/24 22:00 08/28/24 22:01 Temperature Pulse Rate 100 100 101 H Respiratory Rate 27 H Blood Pressure 84/56 L 84/56 L Pulse Oximetry 96 Oxygen Delivery Fraction of Inspired Oxygen 08/28/24 22:02 08/28/24 22:15 08/28/24 23:03 Temperature Pulse Rate 100 96 90 Respiratory Rate 27 H Blood Pressure 90/56 L Pulse Oximetry 97 Oxygen Delivery Mechanical Ventilation Fraction of Inspired Oxygen 35 08/28/24 23:49 08/28/24 23:50 08/28/24 23:50 Temperature Pulse Rate 90 86 Respiratory Rate 27 H Blood Pressure Pulse Oximetry 97 Oxygen Delivery Mechanical Ventilation Fraction of Inspired Oxygen 35 35 08/29/24 00:00 08/29/24 00:00 08/29/24 00:06 Temperature 98.1 F Pulse Rate 82 85 85 Respiratory Rate 24 H 24 H Blood Pressure 89/57 L 89/58 L Pulse Oximetry 97 Oxygen Delivery Fraction of Inspired Oxygen 08/29/24 01:37 08/29/24 01:41 08/29/24 01:52 Temperature Pulse Rate 94 85 86 Respiratory Rate 25 H 24 H Blood Pressure Pulse Oximetry Oxygen Delivery Fraction of Inspired Oxygen 08/29/24 01:58 08/29/24 02:00 08/29/24 02:00 Temperature Pulse Rate 86 94 94 Respiratory Rate 25 H Blood Pressure 105/62 Pulse Oximetry 98 Oxygen Delivery Mechanical Ventilation Fraction of Inspired Oxygen 35 08/29/24 02:00 08/29/24 02:07 08/29/24 03:38 Temperature 97.9 F Pulse Rate 91 94 94 Respiratory Rate 28 H 28 H 22 H Blood Pressure 103/61 Pulse Oximetry 98 99 Oxygen Delivery Mechanical Ventilation Fraction of Inspired Oxygen 35 08/29/24 03:41 08/29/24 03:42 08/29/24 03:42 Temperature 97.6 F Pulse Rate 94 Respiratory Rate Blood Pressure Pulse Oximetry Oxygen Delivery Fraction of Inspired Oxygen 35 08/29/24 04:00 08/29/24 04:00 08/29/24 04:00 Temperature 97.8 F Pulse Rate 93 94 94 Respiratory Rate 26 H 26 H Blood Pressure 110/66 105/66 Pulse Oximetry 98 Oxygen Delivery Fraction of Inspired Oxygen 08/29/24 05:10 08/29/24 06:00 08/29/24 06:00 Temperature 99.5 F Pulse Rate 92 92 92 Respiratory Rate 28 H Blood Pressure 115/67 Pulse Oximetry 98 97 Oxygen Delivery Mechanical Ventilation Fraction of Inspired Oxygen 35 08/29/24 06:00 08/29/24 06:00 08/29/24 07:00 Temperature Pulse Rate 92 92 91 Respiratory Rate 28 H 25 H Blood Pressure 115/67 Pulse Oximetry Oxygen Delivery Fraction of Inspired Oxygen 08/29/24 07:00 08/29/24 07:15 08/29/24 07:15 Temperature Pulse Rate 91 94 94 Respiratory Rate 25 H Blood Pressure 111/70 116/72 Pulse Oximetry Oxygen Delivery Fraction of Inspired Oxygen 08/29/24 07:30 08/29/24 07:41 08/29/24 07:41 Temperature Pulse Rate 98 101 H 101 H Respiratory Rate 25 H 25 H Blood Pressure 123/75 Pulse Oximetry Oxygen Delivery Fraction of Inspired Oxygen 08/29/24 07:49 08/29/24 08:00 08/29/24 08:00 Temperature 99.3 F Pulse Rate 102 H 98 Respiratory Rate 30 H 26 H Blood Pressure 118/73 Pulse Oximetry 96 97 Oxygen Delivery Mechanical Ventilation Fraction of Inspired Oxygen 35 08/29/24 08:00 08/29/24 08:00 08/29/24 08:10 Temperature Pulse Rate 99 99 Respiratory Rate Blood Pressure Pulse Oximetry 97 Oxygen Delivery Mechanical Ventilation Fraction of Inspired Oxygen 35 35 08/29/24 08:10 08/29/24 08:18 08/29/24 08:26 Temperature Pulse Rate 99 104 H 104 H Respiratory Rate 33 H 29 H Blood Pressure 114/74 Pulse Oximetry Oxygen Delivery Fraction of Inspired Oxygen 08/29/24 08:29 Temperature Pulse Rate 104 H Respiratory Rate 30 H Blood Pressure Pulse Oximetry Oxygen Delivery Fraction of Inspired Oxygen Intake/Output Intake/Output: Intake & Output 08/26/24 08/27/24 08/28/24 08/29/24 23:59 23:59 23:59 23:59 Intake Total 2055.0 2377.4 2304.6 732.8 Output Total 45 3102 3841 25 Balance 2010.0 -724.6 -1536.4 707.8 Meds/Results Medications: Active Medications Generic Name Dose Route Start Last Admin Trade Name Freq PRN Reason Stop Dose Admin Acetaminophen 650 mg 08/18/24 21:48 08/28/24 01:10 Acetaminophen Elixir 325 Mg/10.15 Ml Udc PO 650 mg Q4H PRN Administration Mild Pain (1-3) or Fever Acetylcysteine 200 mg 08/28/24 08:00 08/29/24 08:06 Acetylcysteine 20% Inhal Soln 800 Mg/4 Ml Vial INHALATION 200 mg Q6HRT TEIM Administration Dextrose 12.5 gm 08/18/24 05:53 Dextrose 50% 25 Gm/50 Ml Syringe IV PUSH PRN PRN Hypoglycemia Protocol Dornase [place] 2.5 mg 08/28/24 10:05 08/29/24 08:06 Dornase [place] Inh Soln 1 Mg/Ml 2.5 Ml Amp INHALATION 08/30/24 20:01 2.5 mg Q12HRT TEMI Administration Glucagon 1 mg 08/18/24 05:53 Glucagon For Inj 1 Mg Vial IM PRN PRN Hypoglycemia Protocol Glucose 15 gm 08/18/24 05:53 Glucose Oral Gel 15 Gm Of Glucse In 37.5 Gm Tube PO PRN PRN Hypoglycemia Protocol Heparin Sodium (Porcine) 5,500 units 08/18/24 15:05 08/18/24 23:23 Heparin Sodium 5,000 Units/Ml Vial IV PUSH 5,500 units PRN PRN Administration aPTT less than 55 seconds Heparin Sodium (Porcine) 3,000 units 08/18/24 15:05 08/23/24 10:58 Heparin Sodium 5,000 Units/Ml Vial IV PUSH 3,000 units PRN PRN Administration aPTT 55 - 70 seconds Heparin Sodium (Porcine) 5,000 units 08/29/24 07:45 08/29/24 08:10 Heparin Sodium 5,000 Units/Ml Vial SUB-Q 5,000 units Q8HR TEMI Administration Dextrose 1,000 mls @ 100 mls/hr 08/18/24 05:53 Dextrose 5% 1,000 Ml IVPB PRN PRN Hypoglycemia Protocol Heparin Sodium/Dextrose 25,000 units in 250 mls @ 23 mls/hr 08/18/24 15:05 08/28/24 22:25 Heparin Sodium/D5w 100 Units/Ml IV CONT Infused .[id number] TEMI Titration Protocol 2,300 UNITS/HR Norepinephrine Bitartrate 8 mg in 250 mls @ 0 mls/hr 08/19/24 12:30 08/29/24 08:26 Levophed 8 Mg/D5w 250 Ml IV CONT 0 mcg/min .Q0M TEMI 0 mls/hr Titration Protocol 0 MCG/MIN Albumin Human 50 mls @ 999 mls/hr 08/21/24 06:28 Albutein IVPB 09/20/24 06:27 Q10M PRN HYPOTENSION Propofol 100 mls @ 0 mls/hr 08/25/24 14:25 08/29/24 08:18 Diprivan IV CONT 0 mcg/kg/min .Q0M TEMI 0 mls/hr Titration Protocol 0 MCG/KG/MIN Meropenem 500 mg in 100 mls @ 200 mls/hr 08/29/24 08:00 08/29/24 08:10 IVPB 200 mls/hr Q24H TEMI Administration Vancomycin HCl 1,250 mg in 250 mls @ 166.667 mls/hr 08/29/24 09:00 08/29/24 08:23 Vancomycin 1,250 Mg/Ns 250 Ml IVPB 08/29/24 10:29 166.67 mls/hr ONCE ONE Administration Insulin Aspart 4 - 8 units 08/20/24 21:05 08/29/24 08:10 Insulin Aspart (*Bkc) 100 Units/Ml SUB-Q 6 units Q4HR TEMI Administration Protocol Insulin Glargine 50 units 08/29/24 09:00 08/29/24 08:22 Insulin Glargine (*Bkc) 100 Units/Ml SUB-Q 50 units Q12H TEMI Administration Ipratropium [place] 0.5 mg 08/20/24 07:40 08/25/24 20:33 Ipratropium Br 0.02% Inh Soln 0.5 Mg/2.5 Ml Vial INHALATION 0.5 mg Q6HRT PRN Administration Wheezing Levalbuterol HCl 1.25 mg 08/20/24 07:40 08/28/24 10:03 Levalbuterol Neb 1.25 Mg/3 Ml INHALATION 1.25 mg Q6HRT PRN Administration Wheezing Levalbuterol HCl 1.25 mg 08/28/24 14:00 08/29/24 08:06 Levalbuterol Neb 1.25 Mg/3 Ml INHALATION 1.25 mg Q6HRT TEMI Administration Metoclopramide HCl 10 mg 08/23/24 08:00 08/29/24 07:44 Metoclopramide Hcl 10 Mg/10 Ml Soln Udc PO 10 mg Q6H TEMI Administration Multi-Ingred Cream/Lotion/Oil/Oint 1 applic 08/18/24 09:00 08/29/24 08:16 Mineral Oil/White Petrolatum Ointment EACH EYE 1 applic Q12HR TEMI Administration Pantoprazole Sodium 40 mg 08/28/24 21:00 08/29/24 08:15 Pantoprazole Sodium Iv 40 Mg Vial IV PUSH 40 mg Q12HR TEMI Administration Polyethylene Glycol 17 gm 08/15/24 22:20 08/28/24 08:19 Polyethylene Glycol 3350 17 Gm Powd.Pack PO 17 gm DAILY PRN Administration constipation Sodium Chloride 10 ml 08/19/24 22:00 08/29/24 07:44 Central Line Flush IV PUSH 10 ml Q8HR TEMI Administration Sodium Chloride 20 ml 08/19/24 18:43 Central Line Flush IV PUSH PRN PRN after blood draws Vancomycin HCl 1 each 08/29/24 08:10 Vancomycin For Acute Kidney Injury IVPB PRN PRN Vancomycin Protocol Radiology Results: ITS Impressions Chest CTA 08/15/24 11:11 IMPRESSION: No pulmonary embolus. No thoracic aortic dissection. Right upper lobe infiltrate with patchy bilateral airspace disease, likely inflammatory/congestive rather than infectious. Small bilateral pleural effusions with adjacent atelectasis. Venous Doppler Study 08/18/24 14:42 IMPRESSION: 1. Bilateral [id number] deep venous thrombosis in the left and right posterior tibial veins. Findings were discussed with the ICU nurse Carlos Herrera at 2:45 PM. Renal Ultrasound 08/19/24 14:10 IMPRESSION: No hydronephrosis or renal calculi. Findings suggesting medical renal disease. Findings within the upper pole of the right kidney consistent with patient's history, as detailed above. Chest/Abdomen/Pelvis CT 08/23/24 09:58 IMPRESSION: CHEST: 1. Bilateral pneumonia which is slightly decreased compared to previous study. Bilateral pleural effusion more on the right side. ABDOMEN/PELVIS: 1. No evidence of appendicitis, diverticulitis or intestinal obstruction. 2. Bilateral tiny kidney stones. 3. Hepatomegaly. 4. No evidence of ileus seen. ADDENDUM: 08/23/24 1042 Possibility of mass in the right kidney upper pole cannot be excluded. Abdomen X-Ray 08/23/24 16:53 IMPRESSION: 1. Dobbhoff type nasoenteric feeding tube with distal tip projecting over the gastric fundus. Head CT 08/26/24 09:32 Impression: No intracranial hemorrhage, mass, or acute infarct. Atrophy and chronic white matter changes, as above. Chest X-Ray 08/29/24 07:39 IMPRESSION: Bilateral pneumonia. Multiple supporting lines in good position. No significant change from previous examination. Labs Labs: Laboratory Results - last 24 hr 08/28/24 08/28/24 08/28/24 07:45 13:16 13:26 WBC 13.3 H RBC 2.76 L Hgb 7.0 L Hct 23.3 L MCV 84.4 MCH 25.4 L MCHC 30.0 L RDW 19.3 H Plt Count 240 MPV 11.8 H Immature Gran % (Auto) Neut % (Auto) Lymph % (Auto) [place] % (Auto) Eos % (Auto) Baso % (Auto) Lymph # (Auto) [place] # (Auto) Eos # (Auto) Baso # (Auto) Abs Immat Gran (auto) Absolute Neuts (auto) Absolute Nucleated RBC Total Counted Neutrophils % (Manual) Band Neutrophils % Lymphocytes % (Manual) Monocytes % (Manual) Eosinophils % (Manual) Nucleated RBC % Abs Neuts (Manual) Abs Lymphs (Manual) Abs Monocytes (Manual) Absolute Eos (Manual) Nucleated RBCs Platelet Estimate Polychromasia Anisocytosis Schistocytes Puncture Site ABG pH ABG pCO2 ABG pO2 ABG PO2/FiO2 Ratio ABG HCO3 ABG O2 Saturation ABG O2 Content ABG Base Excess A-a Gradient Oxyhemoglobin Carboxyhemoglobin Methemoglobin Reduced Hemoglobin Total Hemoglobin O2 Delivery Device O2 Liters/Min Minute Volume Vent Rate Vent Mode FiO2 Tidal Volume PEEP Peak Inspir Pressure Pressure Support Sodium Potassium Chloride Carbon Dioxide Anion Gap BUN Creatinine Estim Creat Clear Calc Estimated GFR Glucose POC Capillary Glucose 227 H Calcium Phosphorus Magnesium Total Bilirubin AST ALT Alkaline Phosphatase Total Protein Albumin Triglycerides Blood Type AB Positive Antibody Screen Positive Antibody Identification Anti-E Antigen Identification E Antigen - NEGATIVE CINDY, IgG Interpret Positive CINDY, Poly Interpret Positive CINDY, Complement Interp TNP Enhanced Crossmatch See Detail 08/28/24 08/28/24 08/28/24 17:11 17:28 21:16 WBC RBC Hgb Hct MCV MCH MCHC RDW Plt Count MPV Immature Gran % (Auto) Neut % (Auto) Lymph % (Auto) [place] % (Auto) Eos % (Auto) Baso % (Auto) Lymph # (Auto) [place] # (Auto) Eos # (Auto) Baso # (Auto) Abs Immat Gran (auto) Absolute Neuts (auto) Absolute Nucleated RBC Total Counted Neutrophils % (Manual) Band Neutrophils % Lymphocytes % (Manual) Monocytes % (Manual) Eosinophils % (Manual) Nucleated RBC % Abs Neuts (Manual) Abs Lymphs (Manual) Abs Monocytes (Manual) Absolute Eos (Manual) Nucleated RBCs Platelet Estimate Polychromasia Anisocytosis Schistocytes Puncture Site ABG pH ABG pCO2 ABG pO2 ABG PO2/FiO2 Ratio ABG HCO3 ABG O2 Saturation ABG O2 Content ABG Base Excess A-a Gradient Oxyhemoglobin Carboxyhemoglobin Methemoglobin Reduced Hemoglobin Total Hemoglobin O2 Delivery Device O2 Liters/Min Minute Volume Vent Rate Vent Mode FiO2 Tidal Volume PEEP Peak Inspir Pressure Pressure Support Sodium Potassium Chloride Carbon Dioxide Anion Gap BUN Creatinine Estim Creat Clear Calc Estimated GFR Glucose POC Capillary Glucose 170 H 166 H 307 H Calcium Phosphorus Magnesium Total Bilirubin AST ALT Alkaline Phosphatase Total Protein Albumin Triglycerides Blood Type Antibody Screen Antibody Identification Antigen Identification CINDY, IgG Interpret CINDY, Poly Interpret CINDY, Complement Interp Enhanced Crossmatch 08/28/24 08/29/24 08/29/24 23:16 04:45 06:22 WBC 14.3 H RBC 3.39 L Hgb 8.8 L Hct 29.0 L MCV 85.5 MCH 26.0 MCHC 30.3 L RDW 18.6 H Plt Count 231 MPV 11.4 H Immature Gran % (Auto) Not Reportable Neut % (Auto) Not Reportable Lymph % (Auto) Not Reportable [place] % (Auto) Not Reportable Eos % (Auto) Not Reportable Baso % (Auto) Not Reportable Lymph # (Auto) Not Reportable [place] # (Auto) Not Reportable Eos # (Auto) Not Reportable Baso # (Auto) Not Reportable Abs Immat Gran (auto) Not Reportable Absolute Neuts (auto) Not Reportable Absolute Nucleated RBC Not Reportable Total Counted 100 Neutrophils % (Manual) 74 H Band Neutrophils % 5 Lymphocytes % (Manual) 13.0 L Monocytes % (Manual) 7 Eosinophils % (Manual) 1 Nucleated RBC % Not Reportable Abs Neuts (Manual) 11.29 H Abs Lymphs (Manual) 1.85 Abs Monocytes (Manual) 1.00 H Absolute Eos (Manual) 0.14 Nucleated RBCs 3 Platelet Estimate Adequate Polychromasia 1+ Anisocytosis 1+ Schistocytes None seen Puncture Site Right radial ABG pH 7.467 H ABG pCO2 33.5 L ABG pO2 82.6 ABG PO2/FiO2 Ratio 2.36 ABG HCO3 23.7 ABG O2 Saturation 96.8 ABG O2 Content 13.1 L ABG Base Excess 0.3 A-a Gradient 128.0 Oxyhemoglobin 95.9 Carboxyhemoglobin 0.5 Methemoglobin 0.1 Reduced Hemoglobin 3.5 Total Hemoglobin 9.6 L O2 Delivery Device Ventilator O2 Liters/Min Not Reportable Minute Volume Not Reportable Vent Rate 18 Vent Mode Cmv FiO2 35 Tidal Volume 320 PEEP 8 Peak Inspir Pressure Not Reportable Pressure Support Not Reportable Sodium 135 L Potassium 4.5 Chloride 94 L Carbon Dioxide 24 Anion Gap 17 H BUN 78 H Creatinine 3.00 H Estim Creat Clear Calc 15 Estimated GFR 15 L Glucose 301 H POC Capillary Glucose 250 H Calcium 9.1 Phosphorus 4.7 H Magnesium 2.5 H Total Bilirubin 0.6 AST 25 ALT 61 H Alkaline Phosphatase 110 Total Protein 8.0 Albumin 3.9 Triglycerides 282 H Blood Type Antibody Screen Antibody Identification Antigen Identification CINDY, IgG Interpret CINDY, Poly Interpret CINDY, Complement Interp Enhanced Crossmatch 08/29/24 07:42 WBC RBC Hgb Hct MCV MCH MCHC RDW Plt Count MPV Immature Gran % (Auto) Neut % (Auto) Lymph % (Auto) [place] % (Auto) Eos % (Auto) Baso % (Auto) Lymph # (Auto) [place] # (Auto) Eos # (Auto) Baso # (Auto) Abs Immat Gran (auto) Absolute Neuts (auto) Absolute Nucleated RBC Total Counted Neutrophils % (Manual) Band Neutrophils % Lymphocytes % (Manual) Monocytes % (Manual) Eosinophils % (Manual) Nucleated RBC % Abs Neuts (Manual) Abs Lymphs (Manual) Abs Monocytes (Manual) Absolute Eos (Manual) Nucleated RBCs Platelet Estimate Polychromasia Anisocytosis Schistocytes Puncture Site ABG pH ABG pCO2 ABG pO2 ABG PO2/FiO2 Ratio ABG HCO3 ABG O2 Saturation ABG O2 Content ABG Base Excess A-a Gradient Oxyhemoglobin Carboxyhemoglobin Methemoglobin Reduced Hemoglobin Total Hemoglobin O2 Delivery Device O2 Liters/Min Minute Volume Vent Rate Vent Mode FiO2 Tidal Volume PEEP Peak Inspir Pressure Pressure Support Sodium Potassium Chloride Carbon Dioxide Anion Gap BUN Creatinine Estim Creat Clear Calc Estimated GFR Glucose POC Capillary Glucose 339 H Calcium Phosphorus Magnesium Total Bilirubin AST ALT Alkaline Phosphatase Total Protein Albumin Triglycerides Blood Type Antibody Screen Antibody Identification Antigen Identification CINDY, IgG Interpret CINDY, Poly Interpret CINDY, Complement Interp Enhanced Crossmatch Quality VTE Prophylaxis VTE prophylaxis: mechanical ordered and pharmacologic ordered
--- NOTE | 2024-08-29 11:31 | PM.PNNEP ---
Subjective Date/time seen: 08/29/24 11:31 Interval history: Follow-up for acute kidney injury/acute renal failure on chronic kidney disease. Tolerated dialysis/dry ultrafiltration without acute issues or problems yesterday with ~ 3.8L fluid removal; was on low dose levophed earlier this morning but appears to have been weaned off at the time of my visit with relative stability in hemodynamics/blood pressure; tolerated PRBC transfusion yesterday as well with improvement in H/H; likely moving towards tracheostomy and PEG tube placement after family discussion yesterday. Objective Data Vital Signs Vital Signs: Vital Signs Temp Pulse Resp BP Pulse Ox O2 Del Method FiO2 08/29/24 11:04 108 H 25 H 98/65 L 93 08/29/24 10:30 108 H 93 Mechanical Ventilation 35 08/29/24 10:00 108 H 98/65 L 08/29/24 10:00 108 H 25 H 08/29/24 10:00 108 H 08/29/24 10:00 108 H 36 H 105/70 92 08/29/24 08:29 104 H 30 H 08/29/24 08:26 104 H 114/74 08/29/24 08:18 104 H 29 H 08/29/24 08:10 99 33 H 08/29/24 08:10 99 97 Mechanical Ventilation 35 08/29/24 08:00 35 08/29/24 08:00 99 08/29/24 08:00 97 Mechanical Ventilation 35 08/29/24 08:00 98 26 H 08/29/24 07:49 99.3 F 102 H 30 H 118/73 96 08/29/24 07:41 101 H 25 H 08/29/24 07:41 101 H 25 H 08/29/24 07:30 98 123/75 08/29/24 07:15 94 116/72 08/29/24 07:15 94 25 H 08/29/24 07:00 91 111/70 08/29/24 07:00 91 25 H 08/29/24 06:00 92 115/67 08/29/24 06:00 92 28 H 08/29/24 06:00 99.5 F 92 28 H 115/67 97 08/29/24 06:00 92 08/29/24 05:10 92 98 Mechanical Ventilation 35 08/29/24 04:00 94 105/66 08/29/24 04:00 94 26 H 08/29/24 04:00 97.8 F 93 26 H 110/66 98 08/29/24 03:42 97.6 F 08/29/24 03:42 35 08/29/24 03:41 94 08/29/24 03:38 94 22 H 99 Mechanical Ventilation 35 08/29/24 02:07 94 28 H 08/29/24 02:00 97.9 F 91 28 H 103/61 98 08/29/24 02:00 94 105/62 08/29/24 02:00 94 25 H 08/29/24 01:58 86 98 Mechanical Ventilation 35 08/29/24 01:52 86 24 H 08/29/24 01:41 85 08/29/24 01:37 94 25 H 08/29/24 00:06 85 89/58 L 08/29/24 00:00 85 24 H 08/29/24 00:00 98.1 F 82 24 H 89/57 L 97 08/28/24 23:50 35 08/28/24 23:50 86 08/28/24 23:49 90 27 H 97 Mechanical Ventilation 35 08/28/24 23:03 90 97 Mechanical Ventilation 35 08/28/24 22:15 96 90/56 L 08/28/24 22:02 100 27 H 08/28/24 22:01 101 H 84/56 L 08/28/24 22:00 100 08/28/24 22:00 100 27 H 84/56 L 96 08/28/24 21:47 102 H 83/55 L 08/28/24 21:18 97.8 F 106 H 40 H 106/70 94 08/28/24 21:11 106 H 28 H 08/28/24 20:20 104 H 35 H 08/28/24 20:18 98.7 F 108 H 38 H 101/68 96 08/28/24 20:12 108 H 96 Mechanical Ventilation 08/28/24 20:05 107 H 106/65 08/28/24 20:02 108 H 37 H 08/28/24 20:00 98.7 F 108 H 26 H 106/65 96 08/28/24 20:00 35 08/28/24 20:00 108 H 08/28/24 20:00 Mechanical Ventilation 35 08/28/24 19:54 108 H 28 H 08/28/24 19:18 99 F 104 H 38 H 101/65 97 08/28/24 19:01 98.9 F 101 H 36 H 96/64 L 97 08/28/24 18:45 97.6 F 103 H 38 H 109/58 L 08/28/24 18:33 93 108/52 L 08/28/24 18:15 99 107/66 08/28/24 18:10 100 98 Mechanical Ventilation 35 08/28/24 18:00 105 H 109/58 L 08/28/24 18:00 101 H 37 H 08/28/24 18:00 99 105/62 08/28/24 18:00 100 38 H 105/62 97 08/28/24 18:00 100 08/28/24 17:45 98 103/58 L 08/28/24 17:40 98 36 H 08/28/24 17:30 98 103/65 08/28/24 17:15 96 99/58 L 08/28/24 17:00 95 98/54 L 08/28/24 16:45 94 102/58 L 08/28/24 16:35 93 98 Mechanical Ventilation 35 08/28/24 16:30 86 98/57 L 08/28/24 16:25 93 96/62 L Intake/Output Intake/Output: Intake & Output 08/26/24 08/27/24 08/28/24 08/29/24 23:59 23:59 23:59 23:59 Intake Total 2055.0 2377.4 2304.6 1082.8 Output Total 45 3102 3841 25 Balance 2010.0 -724.6 -1536.4 1057.8 Meds/Results Medications: Active Medications Generic Name Dose Route Start Last Admin Trade Name Freq PRN Reason Stop Dose Admin Acetaminophen 650 mg 08/18/24 21:48 08/28/24 01:10 Acetaminophen Elixir 325 Mg/10.15 Ml Udc PO 650 mg Q4H PRN Administration Mild Pain (1-3) or Fever Acetylcysteine 200 mg 08/28/24 08:00 08/29/24 14:17 Acetylcysteine 20% Inhal Soln 800 Mg/4 Ml Vial INHALATION 200 mg Q6HRT TEMI Administration Dextrose 12.5 gm 08/29/24 15:45 Dextrose 50% 25 Gm/50 Ml Syringe IV PUSH PRN PRN Hypoglycemia Protocol Dornase [place] 2.5 mg 08/28/24 10:05 08/29/24 08:06 Dornase [place] Inh Soln 1 Mg/Ml 2.5 Ml Amp INHALATION 08/30/24 20:01 2.5 mg Q12HRT TEMI Administration Glucagon 1 mg 08/29/24 15:45 Glucagon For Inj 1 Mg Vial IM PRN PRN Hypoglycemia Protocol Glucose 15 gm 08/29/24 15:45 Glucose Oral Gel 15 Gm Of Glucse In 37.5 Gm Tube PO PRN PRN Hypoglycemia Protocol Heparin Sodium (Porcine) 5,500 units 08/18/24 15:05 08/18/24 23:23 Heparin Sodium 5,000 Units/Ml Vial IV PUSH 5,500 units PRN PRN Administration aPTT less than 55 seconds Heparin Sodium (Porcine) 3,000 units 08/18/24 15:05 08/23/24 10:58 Heparin Sodium 5,000 Units/Ml Vial IV PUSH 3,000 units PRN PRN Administration aPTT 55 - 70 seconds Heparin Sodium (Porcine) 5,000 units 08/29/24 07:45 08/29/24 13:53 Heparin Sodium 5,000 Units/Ml Vial SUB-Q 5,000 units Q8HR TEMI Administration Heparin Sodium/Dextrose 25,000 units in 250 mls @ 23 mls/hr 08/18/24 15:05 08/28/24 22:25 Heparin Sodium/D5w 100 Units/Ml IV CONT Infused .[id number] TEMI Titration Protocol 2,300 UNITS/HR Norepinephrine Bitartrate 8 mg in 250 mls @ 0 mls/hr 08/19/24 12:30 08/29/24 14:00 Levophed 8 Mg/D5w 250 Ml IV CONT 0 mcg/min .Q0M TEMI 0 mls/hr Titration Protocol 0 MCG/MIN Albumin Human 50 mls @ 999 mls/hr 08/21/24 06:28 Albutein IVPB 09/20/24 06:27 Q10M PRN HYPOTENSION Meropenem 500 mg in 100 mls @ 200 mls/hr 08/29/24 08:00 08/29/24 08:40 IVPB Infused Q24H TEMI Infusion Dexmedetomidine HCl 400 mcg in 100 mls @ 4.23 mls/hr 08/29/24 14:30 08/29/24 14:35 Precedex 400 Mcg/100 Ml IV CONT 0.2 mcg/kg/hr .[id number] TEMI 4.23 mls/hr Administration Protocol 0.2 MCG/KG/HR Insulin Human Regular 100 100 mls @ 8 mls/hr 08/29/24 16:00 units/ Sodium Chloride IV CONT .[id number] TEMI Protocol 8 UNITS/HR Dextrose 1,000 mls @ 100 mls/hr 08/29/24 15:45 Dextrose 5% 1,000 Ml IVPB PRN PRN Hypoglycemia Protocol Insulin Aspart 4 - 8 units 08/20/24 21:05 08/29/24 12:41 Insulin Aspart (*Bkc) 100 Units/Ml SUB-Q 8 units Q4HR TEMI Administration Protocol Insulin Glargine 50 units 08/29/24 09:00 08/29/24 08:22 Insulin Glargine (*Bkc) 100 Units/Ml SUB-Q 50 units Q12H TEMI Administration Ipratropium [place] 0.5 mg 08/29/24 12:22 08/29/24 12:20 Ipratropium Br 0.02% Inh Soln 0.5 Mg/2.5 Ml Vial INHALATION 0.5 mg Q6HRT PRN Administration Wheezing Levalbuterol HCl 1.25 mg 08/29/24 14:00 08/29/24 14:17 Levalbuterol Neb 1.25 Mg/3 Ml INHALATION 1.25 mg Q6HRT TEMI Administration Levalbuterol HCl 1.25 mg 08/29/24 12:22 08/29/24 12:20 Levalbuterol Neb 1.25 Mg/3 Ml INHALATION 1.25 mg Q6HRT PRN Administration Wheezing Metoclopramide HCl 10 mg 08/23/24 08:00 08/29/24 13:53 Metoclopramide Hcl 10 Mg/10 Ml Soln Udc PO 10 mg Q6H TEMI Administration Multi-Ingred Cream/Lotion/Oil/Oint 1 applic 08/18/24 09:00 08/29/24 08:16 Mineral Oil/White Petrolatum Ointment EACH EYE 1 applic Q12HR TEMI Administration Pantoprazole Sodium 40 mg 08/28/24 21:00 08/29/24 08:15 Pantoprazole Sodium Iv 40 Mg Vial IV PUSH 40 mg Q12HR TEMI Administration Polyethylene Glycol 17 gm 08/15/24 22:20 08/28/24 08:19 Polyethylene Glycol 3350 17 Gm Powd.Pack PO 17 gm DAILY PRN Administration constipation Sodium Chloride 10 ml 08/19/24 22:00 08/29/24 13:53 Central Line Flush IV PUSH 10 ml Q8HR TEMI Administration Sodium Chloride 20 ml 08/19/24 18:43 Central Line Flush IV PUSH PRN PRN after blood draws Vancomycin HCl 1 each 08/29/24 08:10 Vancomycin For Acute Kidney Injury IVPB PRN PRN Vancomycin Protocol Radiology Results: ITS Impressions Chest CTA 08/15/24 11:11 IMPRESSION: No pulmonary embolus. No thoracic aortic dissection. Right upper lobe infiltrate with patchy bilateral airspace disease, likely inflammatory/congestive rather than infectious. Small bilateral pleural effusions with adjacent atelectasis. Venous Doppler Study 08/18/24 14:42 IMPRESSION: 1. Bilateral [id number] deep venous thrombosis in the left and right posterior tibial veins. Findings were discussed with the ICU nurse Carlos Herrera at 2:45 PM. Renal Ultrasound 08/19/24 14:10 IMPRESSION: No hydronephrosis or renal calculi. Findings suggesting medical renal disease. Findings within the upper pole of the right kidney consistent with patient's history, as detailed above. Chest/Abdomen/Pelvis CT 08/23/24 09:58 IMPRESSION: CHEST: 1. Bilateral pneumonia which is slightly decreased compared to previous study. Bilateral pleural effusion more on the right side. ABDOMEN/PELVIS: 1. No evidence of appendicitis, diverticulitis or intestinal obstruction. 2. Bilateral tiny kidney stones. 3. Hepatomegaly. 4. No evidence of ileus seen. ADDENDUM: 08/23/24 1042 Possibility of mass in the right kidney upper pole cannot be excluded. Abdomen X-Ray 08/23/24 16:53 IMPRESSION: 1. Dobbhoff type nasoenteric feeding tube with distal tip projecting over the gastric fundus. Head CT 08/26/24 09:32 Impression: No intracranial hemorrhage, mass, or acute infarct. Atrophy and chronic white matter changes, as above. Chest X-Ray 08/29/24 07:39 IMPRESSION: Bilateral pneumonia. Multiple supporting lines in good position. No significant change from previous examination. Labs Labs: Laboratory Tests 08/29/24 06:22 WBC 14.3 H Hgb 8.8 L Hct 29.0 L Plt Count 231 Neutrophils % (Manual) 74 H Band Neutrophils % 5 Lymphocytes % (Manual) 13.0 L Monocytes % (Manual) 7 Eosinophils % (Manual) 1 Nucleated RBC % Not Reportable Abs Neuts (Manual) 11.29 H Abs Lymphs (Manual) 1.85 Abs Monocytes (Manual) 1.00 H Absolute Eos (Manual) 0.14 Nucleated RBCs 3 Platelet Estimate Adequate Polychromasia 1+ Anisocytosis 1+ Schistocytes None seen Sodium 135 L Potassium 4.5 Chloride 94 L Carbon Dioxide 24 Anion Gap 17 H BUN 78 H Creatinine 3.00 H Estim Creat Clear Calc 15 Estimated GFR 15 L Glucose 301 H Calcium 9.1 Phosphorus 4.7 H Magnesium 2.5 H Total Bilirubin 0.6 AST 25 ALT 61 H Alkaline Phosphatase 110 Total Protein 8.0 Albumin 3.9 Triglycerides 282 H
[2024-08-29] MEDS: IPRATROPIUM BR 0.02% INH SOLN 0.5 MG/2.5 ML VIAL INHALATION (12:20)
[2024-08-29 12:48] LABS: Glucose Point of Care 374 mg/dl (65-105)
[2024-08-29] MEDS: dexmedeTOMIDine 400 MCG/100 ML 400 MCG/100 ML BAG IV CONT (14:35)
[2024-08-29 14:50] LABS: Glucose Point of Care 426 mg/dl (65-105)
[2024-08-29 14:50] LABS: Glucose Point of Care 437 mg/dl (65-105)
[2024-08-29 15:25] LABS: Anion Gap 20 mmol/L (4-12); Blood Urea Nitrogen 106 mg/dL (7-17); Carbon Dioxide 20 mmol/L (22-30); Chloride 96 mmol/L (98-107); Glucose 457 mg/dL (65-110); Potassium 5.1 mmol/L (3.4-5.0); Sodium 136 mmol/L (137-145)
[2024-08-29 15:38] LABS: Estimated CRCL calculation 12 ml/min; Estimated Glomerular Filt Rate 12
--- NOTE | 2024-08-29 15:43 | PM.IMPN ---
Progress Note: A&P Assessment and Plan (1) Anemia: Qualifiers: Anemia type: due to chronic kidney disease Chronic kidney disease stage: stage 3 (moderate) Chronic kidney disease stage 3 subtype: unspecified whether 3a or 3b Qualified Code(s): N18.30 - Chronic kidney disease, stage 3 unspecified; D63.1 - Anemia in chronic kidney disease Code(s): D64.9 - Anemia, unspecified Status: Acute Assessment and Plan: 08/28: Patient dropped her hemoglobin to 6.9 this morning -patient is on heparin infusion for her bilateral lower extremity DVTs -have asked the bedside RN to hold heparin infusion -appreciate surgery evaluation and recommendations, will hold off IVC filter placement, will recheck venous Dopplers on 08/30/2024, if signs of propagation of DVT, then will decide with filter on continued anticoagulation -08/28: Transfused 1 unit of packed RBCs -hemoglobin stable this more (2) Acute respiratory failure with hypoxia: Code(s): J96.01 - Acute respiratory failure with hypoxia Status: Acute Assessment and Plan: Acute Respiratory failure secondary to combination of pneumonia and congestive heart failure 08/18: Intubated Repeat CT chest 08/18 MPRESSION: 1. Significant interval progression in an lobar pneumonia along with increasing small bilateral pleural effusions. Patient has elevated procalcitonin and BNP she is positive on intake output balance but her echocardiogram shows normal biventricular size and systolic function Continue Bronchodilators 08/16/2024: Blood cultures negative x2. 08/21/2024: Sputum culture growing MRSA Urine Legionella antigen, mycoplasma pneumonia antibody and urine pneumococcal antigen negative Continue Dialysis to remove fluid, discussed with Nephrology Status post vancomycin cefepime azithromycin (antibiotics ended on 08/27/2024) Patient was off of sedation for 2 days and became tachypneic with asynchronous with ventilator. Patient started on propofol infusion will discontinue, will give sedation vacation after dialysis Weaning trial will depend on improvement in patient's encephalopathy Chest x-ray and ABGs reviewed -Currently on PEEP of 10 and an FiO2 of 35%, decreased PEEP to 8 -patient has significant amount of secretions which are thick, will add Mucomyst and Pulmozyme nebulizer -chest x-ray continues shows bilateral infiltrates for despite fluid removal, patient continues to have thick secretions, will be start vancomycin and add meropenem (3) Congestive heart failure: Qualifiers: Heart failure chronicity: acute on chronic Heart failure type: unspecified Qualified Code(s): I50.9 - Heart failure, unspecified Code(s): I50.9 - Heart failure, unspecified Status: Acute Assessment and Plan: See above (4) Non-ST elevation myocardial infarction (NSTEMI): Code(s): I21.4 - Non-ST elevation (NSTEMI) myocardial infarction Status: Acute Assessment and Plan: History of coronary disease status post PCI in the past now presented with elevated troponin. -Cardiology following -Off ASA as Hb dropped -Other heart medications on hold due to low blood pressure -Statin Hold was slightly elevated LFTs. -No plan for cardiac catheterization at this time. (5) Coronary artery disease: Code(s): I25.10 - Atherosclerotic heart disease of [place] coronary artery without angina pectoris Status: Acute Assessment and Plan: See above (6) Type 2 diabetes mellitus: Code(s): E11.9 - Type 2 diabetes mellitus without complications Status: Chronic Assessment and Plan: Sliding scale insulin Increase Lantus Off steroid (7) Renal failure: Qualifiers: Acute renal failure type: unspecified Chronic kidney disease stage: stage 3 (moderate) Chronic kidney disease stage 3 subtype: unspecified whether 3a or 3b Renal failure chronicity: acute on chronic Qualified Code(s): N17.9 - Acute kidney failure, unspecified; N18.30 - Chronic kidney disease, stage 3 unspecified Code(s): N19 - Unspecified kidney failure Status: Acute Assessment and Plan: Patient presented with creatinine of 1.5. Baseline creatinine unknown She has suprapubic catheter. As per son patient has had a renal tumor which was being monitored and plan was to start radiation therapy by her urology CT scan showed Subtle 2.5 cm mass at the upper pole of the right kidney consistent with provided history of renal tumor. Calcification is at the bilateral kidneys which appear linear and likely atherosclerotic although could not exclude nonobstructing nephrolithiasis. No hydronephrosis in either kidney. Diuretics were held and patient was given albumin bolus Creatinine continue to increase with poor urine output. 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 08/19 dialysis catheter was placed and patient was dialyzed 1 L fluid was removed 08/20, 08/21, 08/23 08/25 patient was dialyzed Monitor urine output electrolytes and creatinine Dialysis per Nephrology (8) Pneumonia: Qualifiers: Laterality: bilateral Lung location: lower lobe of lung Pneumonia type: due to methicillin-resistant Staphylococcus aureus (MRSA) Qualified Code(s): J15.212 - Pneumonia due to Methicillin resistant Staphylococcus aureus Code(s): J18.9 - Pneumonia, unspecified organism Status: Acute Assessment and Plan: See above (9) Kidney mass: Code(s): N28.89 - Other specified disorders of kidney and ureter Status: Acute Assessment and Plan: Patient's son reports history of kidney mass which is being monitored as it was too big to be removed without total nephrectomy. He states that patient was supposed to get radiation therapy in a month or so before she fractured her ankle. CT scan shows 2.5 cm renal mass on the right side and no hydronephrosis. No intervention at this time (10) DVT (deep venous thrombosis): Qualifiers: Affected thrombotic vein of extremity: tibial Chronicity: acute DVT location: lower extremity Laterality: bilateral Qualified Code(s): I82.443 - Acute embolism and thrombosis of tibial vein, bilateral Code(s): I82.409 - Acute embolism and thrombosis of unspecified deep veins of unspecified lower extremity Status: Acute Assessment and Plan: Bilateral venous Dopplers obtained due to swelling in the legs. Ultrasound showed Bilateral [id number] deep venous thrombosis in the left and right posterior tibial veins. Findings were discussed with the ICU nurse Carlos Herrera at 2:45 PM. Patient started on heparin infusion which will be continuous as long as she can tolerate 08/28/2024: Patient dropped hemoglobin to 6.9, on heparin infusion for DVTs bilaterally -have asked the bedside RN to hold heparin infusion Surgery has been consulted for IVC filter placement (11) Septic shock: Code(s): A41.9 - Sepsis, unspecified organism; R65.21 - Severe sepsis with septic shock Status: Acute Assessment and Plan: Continue Levophed. Off vasopressin -hypotension likely multifactorial, pneumonia, sepsis, sedation medications -currently Levophed at 1 mcg, maintain SBP > 100 mmHg -status post antibiotics (12) Ileus: Code(s): K56.7 - Ileus, unspecified Status: Acute Assessment and Plan: RESOLVED Patient has significant output from her OG tube. She has not been tolerating tube feeds. She is on Reglan Bowel sounds are decreased. KUB does not show anything significant abnormal 08/23 Dobbhoff placed tube feeds resume 08/24 will advance tube feeds to 40 mL/hour -patient tolerating tube feeds with minimal residual, positive bowel movement (13) Atrial fibrillation with RVR: Code(s): I48.91 - Unspecified atrial fibrillation Status: Acute Assessment and Plan: Patient went into AFib with RVR after hemodialysis.. She was started on amiodarone infusion. She has converted to sinus bradycardia, amiodarone was discontinued on 08/26/2024 Currently off August infusion due to anemia (14) Encephalopathy: Code(s): G93.40 - Encephalopathy, unspecified Status: Acute Assessment and Plan: Patient was on Versed and fentanyl infusion for many days. She also has renal failure which may lead to accumulation -started on propofol infusion -off propofol patient becomes tachypneic and dyssynchronous with the ventilator leading her to desaturate -08/26/2024: CT scan of the brain No intracranial hemorrhage, mass, or acute infarct.Atrophy and chronic white matter changes. -ammonia levels within normal limits Subjective Date/time seen: 08/29/24 15:43 Interval history: As per nursing patient opted for PEG tube placement and tracheostomy. Poor prognosis. Review of Systems Review of Systems: 12 systems were reviewed and are negative except for as per HPI. ROS unobtainable: Yes unobtainable due to endotracheal tube, unobtainable due to medical condition and unobtainable due to mental status Exam Narrative: General: Pt is sedated, intubated and on mechanical ventilation HEENT: Pupils equal and reactive, sclera is clear, ETT in place Lungs/Chest: Trachea central Coarse BS B/L, bilateral rales, no wheezing, adequate air entry Cardiac: RRR. Normal S1 S2. No murmurs Abdomen: Soft, nontender, nondistended, hypoactive bowel sounds Extremities: Bilateral pitting edema, palpable pedal pulse : Butt in place Neurologic: Currently intubated, sedated, does not open her eyes or follow simple commands. Objective Data Vital Signs Vital Signs: Vital Signs - 24 hr 08/28/24 15:45 08/28/24 16:00 08/28/24 16:00 Temperature 99.2 F Pulse Rate 93 93 98 Respiratory Rate 36 H Blood Pressure 98/59 L 92/56 L 103/65 Pulse Oximetry 97 Oxygen Delivery Fraction of Inspired Oxygen 08/28/24 16:00 08/28/24 16:00 08/28/24 16:00 Temperature Pulse Rate 97 92 Respiratory Rate 36 H Blood Pressure 103/65 Pulse Oximetry Oxygen Delivery Fraction of Inspired Oxygen 35 08/28/24 16:00 08/28/24 16:00 08/28/24 16:25 Temperature Pulse Rate 93 93 Respiratory Rate Blood Pressure 96/62 L Pulse Oximetry 98 Oxygen Delivery Mechanical Ventilation Fraction of Inspired Oxygen 35 08/28/24 16:30 08/28/24 16:35 08/28/24 16:45 Temperature Pulse Rate 86 93 94 Respiratory Rate Blood Pressure 98/57 L 102/58 L Pulse Oximetry 98 Oxygen Delivery Mechanical Ventilation Fraction of Inspired Oxygen 35 08/28/24 17:00 08/28/24 17:15 08/28/24 17:30 Temperature Pulse Rate 95 96 98 Respiratory Rate Blood Pressure 98/54 L 99/58 L 103/65 Pulse Oximetry Oxygen Delivery Fraction of Inspired Oxygen 08/28/24 17:40 08/28/24 17:45 08/28/24 18:00 Temperature Pulse Rate 98 98 100 Respiratory Rate 36 H Blood Pressure 103/58 L Pulse Oximetry Oxygen Delivery Fraction of Inspired Oxygen 08/28/24 18:00 08/28/24 18:00 08/28/24 18:00 Temperature Pulse Rate 100 99 101 H Respiratory Rate 38 H 37 H Blood Pressure 105/62 105/62 Pulse Oximetry 97 Oxygen Delivery Fraction of Inspired Oxygen 08/28/24 18:00 08/28/24 18:10 08/28/24 18:15 Temperature Pulse Rate 105 H 100 99 Respiratory Rate Blood Pressure 109/58 L 107/66 Pulse Oximetry 98 Oxygen Delivery Mechanical Ventilation Fraction of Inspired Oxygen 35 08/28/24 18:33 08/28/24 18:45 08/28/24 19:01 Temperature 97.6 F 98.9 F Pulse Rate 93 103 H 101 H Respiratory Rate 38 H 36 H Blood Pressure 108/52 L 109/58 L 96/64 L Pulse Oximetry 97 Oxygen Delivery Fraction of Inspired Oxygen 08/28/24 19:18 08/28/24 19:54 08/28/24 20:00 Temperature 99 F Pulse Rate 104 H 108 H Respiratory Rate 38 H 28 H Blood Pressure 101/65 Pulse Oximetry 97 Oxygen Delivery Mechanical Ventilation Fraction of Inspired Oxygen 35 08/28/24 20:00 08/28/24 20:00 08/28/24 20:00 Temperature 98.7 F Pulse Rate 108 H 108 H Respiratory Rate 26 H Blood Pressure 106/65 Pulse Oximetry 96 Oxygen Delivery Fraction of Inspired Oxygen 35 08/28/24 20:02 08/28/24 20:05 08/28/24 20:12 Temperature Pulse Rate 108 H 107 H 108 H Respiratory Rate 37 H Blood Pressure 106/65 Pulse Oximetry 96 Oxygen Delivery Mechanical Ventilation Fraction of Inspired Oxygen 35 08/28/24 20:18 08/28/24 20:20 08/28/24 21:11 Temperature 98.7 F Pulse Rate 108 H 104 H 106 H Respiratory Rate 38 H 35 H 28 H Blood Pressure 101/68 Pulse Oximetry 96 Oxygen Delivery Fraction of Inspired Oxygen 08/28/24 21:18 08/28/24 21:47 08/28/24 22:00 Temperature 97.8 F Pulse Rate 106 H 102 H 100 Respiratory Rate 40 H 27 H Blood Pressure 106/70 83/55 L 84/56 L Pulse Oximetry 94 96 Oxygen Delivery Fraction of Inspired Oxygen 08/28/24 22:00 08/28/24 22:01 08/28/24 22:02 Temperature Pulse Rate 100 101 H 100 Respiratory Rate 27 H Blood Pressure 84/56 L Pulse Oximetry Oxygen Delivery Fraction of Inspired Oxygen 08/28/24 22:15 08/28/24 23:03 08/28/24 23:49 Temperature Pulse Rate 96 90 90 Respiratory Rate 27 H Blood Pressure 90/56 L Pulse Oximetry 97 97 Oxygen Delivery Mechanical Ventilation Mechanical Ventilation Fraction of Inspired Oxygen 35 35 08/28/24 23:50 08/28/24 23:50 08/29/24 00:00 Temperature 98.1 F Pulse Rate 86 82 Respiratory Rate 24 H Blood Pressure 89/57 L Pulse Oximetry 97 Oxygen Delivery Fraction of Inspired Oxygen 35 08/29/24 00:00 08/29/24 00:06 08/29/24 01:37 Temperature Pulse Rate 85 85 94 Respiratory Rate 24 H 25 H Blood Pressure 89/58 L Pulse Oximetry Oxygen Delivery Fraction of Inspired Oxygen 08/29/24 01:41 08/29/24 01:52 08/29/24 01:58 Temperature Pulse Rate 85 86 86 Respiratory Rate 24 H Blood Pressure Pulse Oximetry 98 Oxygen Delivery Mechanical Ventilation Fraction of Inspired Oxygen 35 08/29/24 02:00 08/29/24 02:00 08/29/24 02:00 Temperature 97.9 F Pulse Rate 94 94 91 Respiratory Rate 25 H 28 H Blood Pressure 105/62 103/61 Pulse Oximetry 98 Oxygen Delivery Fraction of Inspired Oxygen 08/29/24 02:07 08/29/24 03:38 08/29/24 03:41 Temperature Pulse Rate 94 94 94 Respiratory Rate 28 H 22 H Blood Pressure Pulse Oximetry 99 Oxygen Delivery Mechanical Ventilation Fraction of Inspired Oxygen 35 08/29/24 03:42 08/29/24 03:42 08/29/24 04:00 Temperature 97.6 F 97.8 F Pulse Rate 93 Respiratory Rate 26 H Blood Pressure 110/66 Pulse Oximetry 98 Oxygen Delivery Fraction of Inspired Oxygen 35 08/29/24 04:00 08/29/24 04:00 08/29/24 05:10 Temperature Pulse Rate 94 94 92 Respiratory Rate 26 H Blood Pressure 105/66 Pulse Oximetry 98 Oxygen Delivery Mechanical Ventilation Fraction of Inspired Oxygen 35 08/29/24 06:00 08/29/24 06:00 08/29/24 06:00 Temperature 99.5 F Pulse Rate 92 92 92 Respiratory Rate 28 H 28 H Blood Pressure 115/67 Pulse Oximetry 97 Oxygen Delivery Fraction of Inspired Oxygen 08/29/24 06:00 08/29/24 07:00 08/29/24 07:00 Temperature Pulse Rate 92 91 91 Respiratory Rate 25 H Blood Pressure 115/67 111/70 Pulse Oximetry Oxygen Delivery Fraction of Inspired Oxygen 08/29/24 07:15 08/29/24 07:15 08/29/24 07:30 Temperature Pulse Rate 94 94 98 Respiratory Rate 25 H Blood Pressure 116/72 123/75 Pulse Oximetry Oxygen Delivery Fraction of Inspired Oxygen 08/29/24 07:41 08/29/24 07:41 08/29/24 07:49 Temperature 99.3 F Pulse Rate 101 H 101 H 102 H Respiratory Rate 25 H 25 H 30 H Blood Pressure 118/73 Pulse Oximetry 96 Oxygen Delivery Fraction of Inspired Oxygen 08/29/24 08:00 08/29/24 08:00 08/29/24 08:00 Temperature Pulse Rate 98 99 Respiratory Rate 26 H Blood Pressure Pulse Oximetry 97 Oxygen Delivery Mechanical Ventilation Fraction of Inspired Oxygen 35 08/29/24 08:00 08/29/24 08:10 08/29/24 08:10 Temperature Pulse Rate 99 99 Respiratory Rate 33 H Blood Pressure Pulse Oximetry 97 Oxygen Delivery Mechanical Ventilation Fraction of Inspired Oxygen 35 35 08/29/24 08:18 08/29/24 08:26 08/29/24 08:29 Temperature Pulse Rate 104 H 104 H 104 H Respiratory Rate 29 H 30 H Blood Pressure 114/74 Pulse Oximetry Oxygen Delivery Fraction of Inspired Oxygen 08/29/24 10:00 08/29/24 10:00 08/29/24 10:00 Temperature Pulse Rate 108 H 108 H 108 H Respiratory Rate 36 H 25 H Blood Pressure 105/70 Pulse Oximetry 92 Oxygen Delivery Fraction of Inspired Oxygen 08/29/24 10:00 08/29/24 10:30 08/29/24 11:04 Temperature Pulse Rate 108 H 108 H 108 H Respiratory Rate 25 H Blood Pressure 98/65 L 98/65 L Pulse Oximetry 93 93 Oxygen Delivery Mechanical Ventilation Fraction of Inspired Oxygen 35 08/29/24 12:00 08/29/24 12:00 08/29/24 12:00 Temperature Pulse Rate 107 H 106 H Respiratory Rate 24 H Blood Pressure Pulse Oximetry Oxygen Delivery Fraction of Inspired Oxygen 35 08/29/24 12:00 08/29/24 12:05 08/29/24 12:05 Temperature Pulse Rate 107 H Respiratory Rate Blood Pressure 105/68 Pulse Oximetry 86 L Oxygen Delivery Fraction of Inspired Oxygen 50 08/29/24 12:12 08/29/24 12:20 08/29/24 12:31 Temperature Pulse Rate 107 H 107 H 107 H Respiratory Rate 24 H 25 H 26 H Blood Pressure 101/66 Pulse Oximetry 91 Oxygen Delivery Fraction of Inspired Oxygen 08/29/24 12:40 08/29/24 14:00 08/29/24 14:00 Temperature 97.9 F Pulse Rate 106 H 106 H Respiratory Rate 25 H Blood Pressure 118/78 Pulse Oximetry 92 Oxygen Delivery Fraction of Inspired Oxygen 08/29/24 14:00 08/29/24 14:00 08/29/24 14:20 Temperature Pulse Rate 106 H 106 H 108 H Respiratory Rate 27 H 25 H Blood Pressure 118/78 Pulse Oximetry 93 Oxygen Delivery Fraction of Inspired Oxygen 08/29/24 14:22 08/29/24 14:28 08/29/24 14:30 Temperature Pulse Rate 106 H 107 H 107 H Respiratory Rate 25 H 27 H Blood Pressure Pulse Oximetry 93 Oxygen Delivery Mechanical Ventilation Fraction of Inspired Oxygen 50 08/29/24 14:35 08/29/24 15:08 Temperature 98.9 F Pulse Rate 106 H 106 H Respiratory Rate 24 H 27 H Blood Pressure Pulse Oximetry 94 Oxygen Delivery Fraction of Inspired Oxygen Intake/Output Intake/Output: Intake & Output 08/26/24 08/27/24 08/28/24 08/29/24 23:59 23:59 23:59 23:59 Intake Total 2055.0 2377.4 2304.6 1082.8 Output Total 45 3102 3841 Balance 2009.0 -724.6 -1536.4 1057.8 Meds/Results Medications: Active Medications Generic Name Dose Route Start Last Admin Trade Name Freq PRN Reason Stop Dose Admin Acetaminophen 650 mg 08/18/24 21:48 08/28/24 01:10 Acetaminophen Elixir 325 Mg/10.15 Ml Udc PO 650 mg Q4H PRN Administration Mild Pain (1-3) or Fever Acetylcysteine 200 mg 08/28/24 08:00 08/29/24 14:17 Acetylcysteine 20% Inhal Soln 800 Mg/4 Ml Vial INHALATION 200 mg Q6HRT TEMI Administration Dextrose 12.5 gm 08/18/24 05:53 Dextrose 50% 25 Gm/50 Ml Syringe IV PUSH PRN PRN Hypoglycemia Protocol Dornase [place] 2.5 mg 08/28/24 10:05 08/29/24 08:06 Dornase [place] Inh Soln 1 Mg/Ml 2.5 Ml Amp INHALATION 08/30/24 20:01 2.5 mg Q12HRT TEMI Administration Glucagon 1 mg 08/18/24 05:53 Glucagon For Inj 1 Mg Vial IM PRN PRN Hypoglycemia Protocol Glucose 15 gm 08/18/24 05:53 Glucose Oral Gel 15 Gm Of Glucse In 37.5 Gm Tube PO PRN PRN Hypoglycemia Protocol Heparin Sodium (Porcine) 5,500 units 08/18/24 15:05 08/18/24 23:23 Heparin Sodium 5,000 Units/Ml Vial IV PUSH 5,500 units PRN PRN Administration aPTT less than 55 seconds Heparin Sodium (Porcine) 3,000 units 08/18/24 15:05 08/23/24 10:58 Heparin Sodium 5,000 Units/Ml Vial IV PUSH 3,000 units PRN PRN Administration aPTT 55 - 70 seconds Heparin Sodium (Porcine) 5,000 units 08/29/24 07:45 08/29/24 13:53 Heparin Sodium 5,000 Units/Ml Vial SUB-Q 5,000 units Q8HR TEMI Administration Dextrose 1,000 mls @ 100 mls/hr 08/18/24 05:53 Dextrose 5% 1,000 Ml IVPB PRN PRN Hypoglycemia Protocol Heparin Sodium/Dextrose 25,000 units in 250 mls @ 23 mls/hr 08/18/24 15:05 08/28/24 22:25 Heparin Sodium/D5w 100 Units/Ml IV CONT Infused .[id number] TEMI Titration Protocol 2,300 UNITS/HR Norepinephrine Bitartrate 8 mg in 250 mls @ 0 mls/hr 08/19/24 12:30 08/29/24 14:00 Levophed 8 Mg/D5w 250 Ml IV CONT 0 mcg/min .Q0M TEMI 0 mls/hr Titration Protocol 0 MCG/MIN Albumin Human 50 mls @ 999 mls/hr 08/21/24 06:28 Albutein IVPB 09/20/24 06:27 Q10M PRN HYPOTENSION Meropenem 500 mg in 100 mls @ 200 mls/hr 08/29/24 08:00 08/29/24 08:40 IVPB Infused Q24H TEMI Infusion Dexmedetomidine HCl 400 mcg in 100 mls @ 4.23 mls/hr 08/29/24 14:30 08/29/24 14:35 Precedex 400 Mcg/100 Ml IV CONT 0.2 mcg/kg/hr .[id number] TEMI 4.23 mls/hr Administration Protocol 0.2 MCG/KG/HR Insulin Aspart 4 - 8 units 08/20/24 21:05 08/29/24 12:41 Insulin Aspart (*Bkc) 100 Units/Ml SUB-Q 8 units Q4HR TEMI Administration Protocol Insulin Glargine 50 units 08/29/24 09:00 08/29/24 08:22 Insulin Glargine (*Bkc) 100 Units/Ml SUB-Q 50 units Q12H TEMI Administration Ipratropium [place] 0.5 mg 08/29/24 12:22 08/29/24 12:20 Ipratropium Br 0.02% Inh Soln 0.5 Mg/2.5 Ml Vial INHALATION 0.5 mg Q6HRT PRN Administration Wheezing Levalbuterol HCl 1.25 mg 08/29/24 14:00 08/29/24 14:17 Levalbuterol Neb 1.25 Mg/3 Ml INHALATION 1.25 mg Q6HRT TEMI Administration Levalbuterol HCl 1.25 mg 08/29/24 12:22 08/29/24 12:20 Levalbuterol Neb 1.25 Mg/3 Ml INHALATION 1.25 mg Q6HRT PRN Administration Wheezing Metoclopramide HCl 10 mg 08/23/24 08:00 08/29/24 13:53 Metoclopramide Hcl 10 Mg/10 Ml Soln Udc PO 10 mg Q6H TEMI Administration Multi-Ingred Cream/Lotion/Oil/Oint 1 applic 08/18/24 09:00 08/29/24 08:16 Mineral Oil/White Petrolatum Ointment EACH EYE 1 applic Q12HR TEMI Administration Pantoprazole Sodium 40 mg 08/28/24 21:00 08/29/24 08:15 Pantoprazole Sodium Iv 40 Mg Vial IV PUSH 40 mg Q12HR TEMI Administration Polyethylene Glycol 17 gm 08/15/24 22:20 08/28/24 08:19 Polyethylene Glycol 3350 17 Gm Powd.Pack PO 17 gm DAILY PRN Administration constipation Sodium Chloride 10 ml 08/19/24 22:00 08/29/24 13:53 Central Line Flush IV PUSH 10 ml Q8HR TEMI Administration Sodium Chloride 20 ml 08/19/24 18:43 Central Line Flush IV PUSH PRN PRN after blood draws Vancomycin HCl 1 each 08/29/24 08:10 Vancomycin For Acute Kidney Injury IVPB PRN PRN Vancomycin Protocol Radiology Results: ITS Impressions Chest CTA 08/15/24 11:11 IMPRESSION: No pulmonary embolus. No thoracic aortic dissection. Right upper lobe infiltrate with patchy bilateral airspace disease, likely inflammatory/congestive rather than infectious. Small bilateral pleural effusions with adjacent atelectasis. Venous Doppler Study 08/18/24 14:42 IMPRESSION: 1. Bilateral [id number] deep venous thrombosis in the left and right posterior tibial veins. Findings were discussed with the ICU nurse Carlos Herrera at 2:45 PM. Renal Ultrasound 08/19/24 14:10 IMPRESSION: No hydronephrosis or renal calculi. Findings suggesting medical renal disease. Findings within the upper pole of the right kidney consistent with patient's history, as detailed above. Chest/Abdomen/Pelvis CT 08/23/24 09:58 IMPRESSION: CHEST: 1. Bilateral pneumonia which is slightly decreased compared to previous study. Bilateral pleural effusion more on the right side. ABDOMEN/PELVIS: 1. No evidence of appendicitis, diverticulitis or intestinal obstruction. 2. Bilateral tiny kidney stones. 3. Hepatomegaly. 4. No evidence of ileus seen. ADDENDUM: 08/23/24 1042 Possibility of mass in the right kidney upper pole cannot be excluded. Abdomen X-Ray 08/23/24 16:53 IMPRESSION: 1. Dobbhoff type nasoenteric feeding tube with distal tip projecting over the gastric fundus. Head CT 08/26/24 09:32 Impression: No intracranial hemorrhage, mass, or acute infarct. Atrophy and chronic white matter changes, as above. Chest X-Ray 08/29/24 07:39 IMPRESSION: Bilateral pneumonia. Multiple supporting lines in good position. No significant change from previous examination. Labs Labs: Laboratory Results - last 24 hr 08/28/24 08/28/24 08/28/24 07:45 13:16 17:11 WBC RBC Hgb Hct MCV MCH MCHC RDW Plt Count MPV Immature Gran % (Auto) Neut % (Auto) Lymph % (Auto) [place] % (Auto) Eos % (Auto) Baso % (Auto) Lymph # (Auto) [place] # (Auto) Eos # (Auto) Baso # (Auto) Abs Immat Gran (auto) Absolute Neuts (auto) Absolute Nucleated RBC Total Counted Neutrophils % (Manual) Band Neutrophils % Lymphocytes % (Manual) Monocytes % (Manual) Eosinophils % (Manual) Nucleated RBC % Abs Neuts (Manual) Abs Lymphs (Manual) Abs Monocytes (Manual) Absolute Eos (Manual) Nucleated RBCs Platelet Estimate Polychromasia Anisocytosis Schistocytes Puncture Site ABG pH ABG pCO2 ABG pO2 ABG PO2/FiO2 Ratio ABG HCO3 ABG O2 Saturation ABG O2 Content ABG Base Excess A-a Gradient Oxyhemoglobin Carboxyhemoglobin Methemoglobin Reduced Hemoglobin Total Hemoglobin O2 Delivery Device O2 Liters/Min Minute Volume Vent Rate Vent Mode FiO2 Tidal Volume PEEP Peak Inspir Pressure Pressure Support Sodium Potassium Chloride Carbon Dioxide Anion Gap BUN Creatinine Estim Creat Clear Calc Estimated GFR Glucose POC Capillary Glucose 227 H 170 H Calcium Phosphorus Magnesium Total Bilirubin AST ALT Alkaline Phosphatase Total Protein Albumin Triglycerides Blood Type AB Positive Antibody Screen Positive Antibody Identification Anti-E Antigen Identification E Antigen - NEGATIVE CINDY, IgG Interpret Positive CINDY, Poly Interpret Positive CINDY, Complement Interp TNP Enhanced Crossmatch See Detail 08/28/24 08/28/24 08/28/24 17:28 21:16 23:16 WBC RBC Hgb Hct MCV MCH MCHC RDW Plt Count MPV Immature Gran % (Auto) Neut % (Auto) Lymph % (Auto) [place] % (Auto) Eos % (Auto) Baso % (Auto) Lymph # (Auto) [place] # (Auto) Eos # (Auto) Baso # (Auto) Abs Immat Gran (auto) Absolute Neuts (auto) Absolute Nucleated RBC Total Counted Neutrophils % (Manual) Band Neutrophils % Lymphocytes % (Manual) Monocytes % (Manual) Eosinophils % (Manual) Nucleated RBC % Abs Neuts (Manual) Abs Lymphs (Manual) Abs Monocytes (Manual) Absolute Eos (Manual) Nucleated RBCs Platelet Estimate Polychromasia Anisocytosis Schistocytes Puncture Site ABG pH ABG pCO2 ABG pO2 ABG PO2/FiO2 Ratio ABG HCO3 ABG O2 Saturation ABG O2 Content ABG Base Excess A-a Gradient Oxyhemoglobin Carboxyhemoglobin Methemoglobin Reduced Hemoglobin Total Hemoglobin O2 Delivery Device O2 Liters/Min Minute Volume Vent Rate Vent Mode FiO2 Tidal Volume PEEP Peak Inspir Pressure Pressure Support Sodium Potassium Chloride Carbon Dioxide Anion Gap BUN Creatinine Estim Creat Clear Calc Estimated GFR Glucose POC Capillary Glucose 166 H 307 H 250 H Calcium Phosphorus Magnesium Total Bilirubin AST ALT Alkaline Phosphatase Total Protein Albumin Triglycerides Blood Type Antibody Screen Antibody Identification Antigen Identification CINDY, IgG Interpret CINDY, Poly Interpret CINDY, Complement Interp Enhanced Crossmatch 08/29/24 08/29/24 08/29/24 04:45 06:22 07:42 WBC 14.3 H RBC 3.39 L Hgb 8.8 L Hct 29.0 L MCV 85.5 MCH 26.0 MCHC 30.3 L RDW 18.6 H Plt Count 231 MPV 11.4 H Immature Gran % (Auto) Not Reportable Neut % (Auto) Not Reportable Lymph % (Auto) Not Reportable [place] % (Auto) Not Reportable Eos % (Auto) Not Reportable Baso % (Auto) Not Reportable Lymph # (Auto) Not Reportable [place] # (Auto) Not Reportable Eos # (Auto) Not Reportable Baso # (Auto) Not Reportable Abs Immat Gran (auto) Not Reportable Absolute Neuts (auto) Not Reportable Absolute Nucleated RBC Not Reportable Total Counted 100 Neutrophils % (Manual) 74 H Band Neutrophils % 5 Lymphocytes % (Manual) 13.0 L Monocytes % (Manual) 7 Eosinophils % (Manual) 1 Nucleated RBC % Not Reportable Abs Neuts (Manual) 11.29 H Abs Lymphs (Manual) 1.85 Abs Monocytes (Manual) 1.00 H Absolute Eos (Manual) 0.14 Nucleated RBCs 3 Platelet Estimate Adequate Polychromasia 1+ Anisocytosis 1+ Schistocytes None seen Puncture Site Right radial ABG pH 7.467 H ABG pCO2 33.5 L ABG pO2 82.6 ABG PO2/FiO2 Ratio 2.36 ABG HCO3 23.7 ABG O2 Saturation 96.8 ABG O2 Content 13.1 L ABG Base Excess 0.3 A-a Gradient 128.0 Oxyhemoglobin 95.9 Carboxyhemoglobin 0.5 Methemoglobin 0.1 Reduced Hemoglobin 3.5 Total Hemoglobin 9.6 L O2 Delivery Device Ventilator O2 Liters/Min Not Reportable Minute Volume Not Reportable Vent Rate 18 Vent Mode Cmv FiO2 35 Tidal Volume 320 PEEP 8 Peak Inspir Pressure Not Reportable Pressure Support Not Reportable Sodium 135 L Potassium 4.5 Chloride 94 L Carbon Dioxide 24 Anion Gap 17 H BUN 78 H Creatinine 3.00 H Estim Creat Clear Calc 15 Estimated GFR 15 L Glucose 301 H POC Capillary Glucose 339 H Calcium 9.1 Phosphorus 4.7 H Magnesium 2.5 H Total Bilirubin 0.6 AST 25 ALT 61 H Alkaline Phosphatase 110 Total Protein 8.0 Albumin 3.9 Triglycerides 282 H Blood Type Antibody Screen Antibody Identification Antigen Identification CINDY, IgG Interpret CINDY, Poly Interpret CINDY, Complement Interp Enhanced Crossmatch 08/29/24 08/29/24 08/29/24 12:39 14:42 14:44 WBC RBC Hgb Hct MCV MCH MCHC RDW Plt Count MPV Immature Gran % (Auto) Neut % (Auto) Lymph % (Auto) [place] % (Auto) Eos % (Auto) Baso % (Auto) Lymph # (Auto) [place] # (Auto) Eos # (Auto) Baso # (Auto) Abs Immat Gran (auto) Absolute Neuts (auto) Absolute Nucleated RBC Total Counted Neutrophils % (Manual) Band Neutrophils % Lymphocytes % (Manual) Monocytes % (Manual) Eosinophils % (Manual) Nucleated RBC % Abs Neuts (Manual) Abs Lymphs (Manual) Abs Monocytes (Manual) Absolute Eos (Manual) Nucleated RBCs Platelet Estimate Polychromasia Anisocytosis Schistocytes Puncture Site ABG pH ABG pCO2 ABG pO2 ABG PO2/FiO2 Ratio ABG HCO3 ABG O2 Saturation ABG O2 Content ABG Base Excess A-a Gradient Oxyhemoglobin Carboxyhemoglobin Methemoglobin Reduced Hemoglobin Total Hemoglobin O2 Delivery Device O2 Liters/Min Minute Volume Vent Rate Vent Mode FiO2 Tidal Volume PEEP Peak Inspir Pressure Pressure Support Sodium Potassium Chloride Carbon Dioxide Anion Gap BUN Creatinine Estim Creat Clear Calc Estimated GFR Glucose POC Capillary Glucose 374 H 437 H 426 H Calcium Phosphorus Magnesium Total Bilirubin AST ALT Alkaline Phosphatase Total Protein Albumin Triglycerides Blood Type Antibody Screen Antibody Identification Antigen Identification CINDY, IgG Interpret CINDY, Poly Interpret CINDY, Complement Interp Enhanced Crossmatch 08/29/24 15:09 WBC RBC Hgb Hct MCV MCH MCHC RDW Plt Count MPV Immature Gran % (Auto) Neut % (Auto) Lymph % (Auto) [place] % (Auto) Eos % (Auto) Baso % (Auto) Lymph # (Auto) [place] # (Auto) Eos # (Auto) Baso # (Auto) Abs Immat Gran (auto) Absolute Neuts (auto) Absolute Nucleated RBC Total Counted Neutrophils % (Manual) Band Neutrophils % Lymphocytes % (Manual) Monocytes % (Manual) Eosinophils % (Manual) Nucleated RBC % Abs Neuts (Manual) Abs Lymphs (Manual) Abs Monocytes (Manual) Absolute Eos (Manual) Nucleated RBCs Platelet Estimate Polychromasia Anisocytosis Schistocytes Puncture Site ABG pH ABG pCO2 ABG pO2 ABG PO2/FiO2 Ratio ABG HCO3 ABG O2 Saturation ABG O2 Content ABG Base Excess A-a Gradient Oxyhemoglobin Carboxyhemoglobin Methemoglobin Reduced Hemoglobin Total Hemoglobin O2 Delivery Device O2 Liters/Min Minute Volume Vent Rate Vent Mode FiO2 Tidal Volume PEEP Peak Inspir Pressure Pressure Support Sodium 136 L Potassium 5.1 H Chloride 96 L Carbon Dioxide 20 L Anion Gap 20 H BUN 106 H D Creatinine 3.66 H Estim Creat Clear Calc 12 Estimated GFR 12 L Glucose 457 H POC Capillary Glucose Calcium 9.0 Phosphorus Magnesium Total Bilirubin AST ALT Alkaline Phosphatase Total Protein Albumin Triglycerides Blood Type Antibody Screen Antibody Identification Antigen Identification CINDY, IgG Interpret CINDY, Poly Interpret CINDY, Complement Interp Enhanced Crossmatch Quality VTE Prophylaxis VTE prophylaxis: mechanical ordered and pharmacologic ordered Hospitalist MIPS Advance Care Plan I have confirmed that the patient's Advanced Care Plan is present, code status is documented, or surrogate decision maker is listed in patient medical record.: Yes Medication Reconciliation I have utilized all available resources to obtain, update and review the patients current medications (includes all prescriptions, OTC, herbals, cannabis, and nutritional supplements).: Yes
[2024-08-29] MEDS: INSULIN HUMAN REGULAR (*BKC) 100 UNITS in SODIUM CHLORIDE 0.9% IV 99 ML 8 UNITS IV CONT (16:29)
[2024-08-29 16:34] LABS: Glucose Point of Care 474 mg/dl (65-105)
[2024-08-29 18:19] LABS: Glucose Point of Care 428 mg/dl (65-105)
[2024-08-29 18:48] LABS: Anion Gap 19 mmol/L (4-12); Blood Urea Nitrogen 114 mg/dL (7-17); Carbon Dioxide 21 mmol/L (22-30); Chloride 96 mmol/L (98-107); Estimated CRCL calculation 11 ml/min; Estimated Glomerular Filt Rate 10; Glucose 414 mg/dL (65-110); Potassium 4.8 mmol/L (3.4-5.0); Sodium 136 mmol/L (137-145)
[2024-08-29 19:15] LABS: Glucose Point of Care 395 mg/dl (65-105)
[2024-08-29 20:11] LABS: Glucose Point of Care 356 mg/dl (65-105)
[2024-08-29 21:27] LABS: Glucose Point of Care 307 mg/dl (65-105)
[2024-08-29 22:07] LABS: Glucose Point of Care 285 mg/dl (65-105)
[2024-08-29 23:02] LABS: Glucose Point of Care 284 mg/dl (65-105)
[2024-08-30] VITALS (61 sets, daily range): BP systolic 78–109; BP diastolic 52–83; PULSE 81–999; RESP 28–34; TEMP 36.7–37.7; O2SAT 86–100
[2024-08-30] MEDS: dexmedeTOMIDine 400 MCG/100 ML 400 MCG/100 ML BAG 8.46 MCG IV CONT ×2 (00:22→13:25)
[2024-08-30] MEDS: INSULIN HUMAN REGULAR (*BKC) 100 UNITS in SODIUM CHLORIDE 0.9% IV 99 ML 15 UNITS IV CONT (00:22)
[2024-08-30 00:27] LABS: Glucose Point of Care 233 mg/dl (65-105)
[2024-08-30 01:06] LABS: Glucose Point of Care 176 mg/dl (65-105)
[2024-08-30] MEDS: ACETYLCYSTEINE 20% INHAL SOLN 800 MG/4 ML VIAL 200 MG INHALATION ×4 (02:00→20:18)
[2024-08-30] MEDS: LEVALBUTEROL NEB 1.25 MG/3 ML INHALATION ×4 (02:00→20:17)
[2024-08-30 02:11] LABS: Glucose Point of Care 178 mg/dl (65-105)
[2024-08-30 03:07] LABS: Glucose Point of Care 178 mg/dl (65-105)
[2024-08-30] MEDS: METOCLOPRAMIDE HCL 10 MG/10 ML SOLN UDC PO ×4 (03:13→20:47)
[2024-08-30 04:13] LABS: Glucose Point of Care 214 mg/dl (65-105)
[2024-08-30 05:07] LABS: Alveolar/Arterial O2 Gradient 249.5 mmHg; Base Excess ABG -2.8 mEq/l (+/-2.0); Carboxyhemoglobin 0.2 % THb (0-2.0); Fractional Inspired Oxygen 50 %; HCO3 ABG 21.3 mEq/l (22.0-26.0); Methemoglobin ABG 0.2 %THb (0-1.5); Oxygen Content ABG 11.9 %vol (16.0-22.0); Oxygen Saturation ABG 94.1 % (95.0-100.0); Oxyhemoglobin 92.3 % THb (90.0-100.0); PCO2 ABG 34.2 mmHg (35.0-45.0); PO2 ABG 68.5 mmHg (80.0-100.0); PO2 FiO2 Ratio Arterial Blood 1.37 %; Reduced Hemoglobin 7.3 %THb (0-5.0); Total Hemoglobin 9.1 g/dL (12.0-18.0); pH ABG 7.413 (7.350-7.450)
[2024-08-30 05:08] LABS: Arterial Blood Gas PEEP 8 cmH2O; Arterial Blood Gas Vent Mode CMV; Arterial Blood Gas Ventilator rate 18 /MIN; Device VENTILATOR; Modified Allen's Test Pass; Site Drawn RIGHT RADIAL
[2024-08-30 05:09] LABS: Arterial Blood Gas Tidal Volume 320 ml
[2024-08-30 05:09] LABS: Glucose Point of Care 224 mg/dl (65-105)
[2024-08-30] MEDS: CENTRAL LINE FLUSH 10 ML IV PUSH ×3 (05:11→20:50)
[2024-08-30] MEDS: HEPARIN SODIUM 5,000 UNITS/ML VIAL 5000 UNITS SUB-Q ×3 (05:11→20:56)
[2024-08-30 05:25] LABS: Basophils Absolute Auto 0.1 K/mm3 (0.0-0.1); Basophils Percent Auto 0.5 % (0.2-1.2); Eosinophils Absolute Auto 0.1 K/mm3 (0-0.3); Eosinophils Percent Auto 0.5 % (0-4.4); Hemoglobin 8.3 g/dL (12.0-15.0); Immature Granulocyte Absolute 0.74 K/mm3 (0.00-0.031); Lymphocytes Absolute Auto 1.13 K/mm3 (0.9-3.2); Lymphocytes Percent Auto 7.7 % (18.3-44.2); Mean Corpuscular HGB Conc 29.6 g/dl (32-36); Mean Corpuscular Hemoglobin 25.4 pg (26-34); Mean Corpuscular Volume 85.6 fl (80-100); Mean Platelet Volume 11.7 fl (7.4-10.4); Monocytes Absolute Auto 1.1 K/mm3 (0.1-0.6); Monocytes Percent Auto 7.7 % (2.6-8.5); Neutrophils Absolute Auto 11.6 K/mm3 (1.3-6.7); Neutrophils Percent Auto 78.6 % (45.5-73.1); Nucleated Red Blood Cells Perc 2.6 % (0.0-0.2); Platelet Count Result 217 k/mm3 (150-375); Red Blood Count 3.27 M/mm3 (4.2-5.4); White Blood Count 14.8 K/mm3 (4.5-10.0)
[2024-08-30 05:41] LABS: Vancomycin Trough 21.2 ug/mL (10.0-20.0)
[2024-08-30 05:45] LABS: Alanine Aminotransferase 46 U/L (6-35); Albumin Level 3.7 g/dL (3.5-5.1); Alkaline Phosphatase 107 U/L (38-126); Anion Gap 20 mmol/L (4-12); Aspartate Amino Transferase 24 U/L (14-36); Bilirubin,Total 0.3 mg/dL (0.2-1.3); Calcium 9.1 mg/dL (8.4-10.2); Carbon Dioxide 22 mmol/L (22-30); Chloride 95 mmol/L (98-107); Estimated CRCL calculation 11 ml/min; Estimated Glomerular Filt Rate 10; Glucose 238 mg/dL (65-110); Magnesium 3.1 mg/dL (1.6-2.3); Phosphorus 5.5 mg/dL (2.5-4.5); Potassium 5.1 mmol/L (3.4-5.0); Sodium 137 mmol/L (137-145)
[2024-08-30 05:55] LABS: Anisocytosis 1+; Hypochromasia 1+; Microcytosis 1+ (NORMAL); Platelet Estimate Adequate (Adequate); Schistocytes None Seen
[2024-08-30 06:12] LABS: Glucose Point of Care 255 mg/dl (65-105)
[2024-08-30 07:22] LABS: Glucose Point of Care 260 mg/dl (65-105)
[2024-08-30 07:25] LABS: Blood Urea Nitrogen 128 mg/dL (7-17)
[2024-08-30 07:58] LABS: Glucose Point of Care 237 mg/dl (65-105)
[2024-08-30] MEDS: DORNASE ALFA INH SOLN 1 MG/ML 2.5 ML AMP 2.5 MG INHALATION ×2 (08:17→20:18)
--- NOTE | 2024-08-30 08:35 | WPDINTPN ---
Progress Note: A&P Assessment and Plan (1) Anemia: Qualifiers: Anemia type: due to chronic kidney disease Chronic kidney disease stage: stage 3 (moderate) Chronic kidney disease stage 3 subtype: unspecified whether 3a or 3b Qualified Code(s): N18.30 - Chronic kidney disease, stage 3 unspecified; D63.1 - Anemia in chronic kidney disease Code(s): D64.9 - Anemia, unspecified Status: Acute Assessment and Plan: 08/28: Patient dropped her hemoglobin to 6.9 this morning -patient is on heparin infusion for her bilateral lower extremity DVTs -have asked the bedside RN to hold heparin infusion -appreciate surgery evaluation and recommendations, will hold off IVC filter placement, will recheck venous Dopplers on 08/30/2024, if signs of propagation of DVT, then will decide with filter on continued anticoagulation -08/28: Transfused 1 unit of packed RBCs -hemoglobin stable this morning (2) Acute respiratory failure with hypoxia: Code(s): J96.01 - Acute respiratory failure with hypoxia Status: Acute Assessment and Plan: Acute Respiratory failure secondary to combination of pneumonia and congestive heart failure 08/18: Intubated Repeat CT chest 08/18 MPRESSION: 1. Significant interval progression in an lobar pneumonia along with increasing small bilateral pleural effusions. Patient has elevated procalcitonin and BNP she is positive on intake output balance but her echocardiogram shows normal biventricular size and systolic function Continue Bronchodilators 08/16/2024: Blood cultures negative x2. 08/21/2024: Sputum culture growing MRSA Urine Legionella antigen, mycoplasma pneumonia antibody and urine pneumococcal antigen negative Continue Dialysis to remove fluid, discussed with Nephrology Status post vancomycin cefepime azithromycin (antibiotics ended on 08/27/2024) Patient was off of sedation for 2 days and became tachypneic with asynchronous with ventilator. Patient started on propofol infusion will discontinue, will give sedation vacation after dialysis Weaning trial will depend on improvement in patient's encephalopathy Chest x-ray and ABGs reviewed -Currently on PEEP of 10 and an FiO2 of 35%, decreased PEEP to 8 -patient has significant amount of secretions which are thick, will add Mucomyst and Pulmozyme nebulizer -chest x-ray continues shows bilateral infiltrates for despite fluid removal, patient continues to have thick secretions, 08/29: Restarted vancomycin and meropenem 08/30: Consult has been placed for ENT for tracheostomy and GI for PEG tube placement (3) Congestive heart failure: Qualifiers: Heart failure type: unspecified Heart failure chronicity: acute on chronic Qualified Code(s): I50.9 - Heart failure, unspecified Code(s): I50.9 - Heart failure, unspecified Status: Acute Assessment and Plan: See above (4) Non-ST elevation myocardial infarction (NSTEMI): Code(s): I21.4 - Non-ST elevation (NSTEMI) myocardial infarction Status: Acute Assessment and Plan: History of coronary disease status post PCI in the past now presented with elevated troponin. -Cardiology following -Off ASA as Hb dropped -Other heart medications on hold due to low blood pressure -Statin Hold was slightly elevated LFTs. -No plan for cardiac catheterization at this time. (5) Coronary artery disease: Code(s): I25.10 - Atherosclerotic heart disease of [place] coronary artery without angina pectoris Status: Acute Assessment and Plan: See above (6) Type 2 diabetes mellitus: Code(s): E11.9 - Type 2 diabetes mellitus without complications Status: Chronic Assessment and Plan: Sliding scale insulin 08/29: Blood sugars in the 400s despite being Lantus 50 units q.12 hours. Patient was started on insulin infusion on Lantus was discontinued Off steroid (7) Renal failure: Qualifiers: Renal failure chronicity: acute on chronic Acute renal failure type: unspecified Chronic kidney disease stage: stage 3 (moderate) Chronic kidney disease stage 3 subtype: unspecified whether 3a or 3b Qualified Code(s): N17.9 - Acute kidney failure, unspecified; N18.30 - Chronic kidney disease, stage 3 unspecified Code(s): N19 - Unspecified kidney failure Status: Acute Assessment and Plan: Patient presented with creatinine of 1.5. Baseline creatinine unknown She has suprapubic catheter. As per son patient has had a renal tumor which was being monitored and plan was to start radiation therapy by her urology CT scan showed Subtle 2.5 cm mass at the upper pole of the right kidney consistent with provided history of renal tumor. Calcification is at the bilateral kidneys which appear linear and likely atherosclerotic although could not exclude nonobstructing nephrolithiasis. No hydronephrosis in either kidney. Diuretics were held and patient was given albumin bolus Creatinine continue to increase with poor urine output. After discussion with patient's family and nurse infection control decision was made to initiate dialysis. 08/19 dialysis catheter was placed and patient was dialyzed 1 L fluid was removed 08/20, 08/21, 08/23 08/25 patient was dialyzed Monitor urine output electrolytes and creatinine Dialysis per Nephrology (8) Pneumonia: Qualifiers: Laterality: bilateral Lung location: lower lobe of lung Pneumonia type: due to methicillin-resistant Staphylococcus aureus (MRSA) Qualified Code(s): J15.212 - Pneumonia due to Methicillin resistant Staphylococcus aureus Code(s): J18.9 - Pneumonia, unspecified organism Status: Acute Assessment and Plan: See above (9) Kidney mass: Code(s): N28.89 - Other specified disorders of kidney and ureter Status: Acute Assessment and Plan: Patient's son reports history of kidney mass which is being monitored as it was too big to be removed without total nephrectomy. He states that patient was supposed to get radiation therapy in a month or so before she fractured her ankle. CT scan shows 2.5 cm renal mass on the right side and no hydronephrosis. No intervention at this time (10) DVT (deep venous thrombosis): Qualifiers: DVT location: lower extremity Affected thrombotic vein of extremity: tibial Chronicity: acute Laterality: bilateral Qualified Code(s): I82.443 - Acute embolism and thrombosis of tibial vein, bilateral Code(s): I82.409 - Acute embolism and thrombosis of unspecified deep veins of unspecified lower extremity Status: Acute Assessment and Plan: Bilateral venous Dopplers obtained due to swelling in the legs. Ultrasound showed Bilateral aafxn-bad-arav deep venous thrombosis in the left and right posterior tibial veins. Findings were discussed with the ICU nurse Carlos Herrera at 2:45 PM. Patient started on heparin infusion which will be continuous as long as she can tolerate 08/28/2024: Patient dropped hemoglobin to 6.9, on heparin infusion for DVTs bilaterally -have asked the bedside RN to hold heparin infusion -appreciate surgery evaluation and recommendations, -08/30: Will repeat venous Dopplers per surgery recommendation, if there is progression, patient required IVC filter placement or anticoagulation (11) Septic shock: Code(s): A41.9 - Sepsis, unspecified organism; R65.21 - Severe sepsis with septic shock Status: Acute Assessment and Plan: Continue Levophed. Off vasopressin -hypotension likely multifactorial, pneumonia, sepsis, sedation medications -off Levophed, patient requires Levophed mostly when she is receiving dialysis -status post antibiotics (12) Ileus: Code(s): K56.7 - Ileus, unspecified Status: Acute Assessment and Plan: RESOLVED Patient has significant output from her OG tube. She has not been tolerating tube feeds. She is on Reglan Bowel sounds are decreased. KUB does not show anything significant abnormal 08/23 Dobbhoff placed tube feeds resume 08/24 will advance tube feeds to 40 mL/hour -patient tolerating tube feeds with minimal residual, positive bowel movement (13) Atrial fibrillation with RVR: Code(s): I48.91 - Unspecified atrial fibrillation Status: Acute Assessment and Plan: Patient went into AFib with RVR after hemodialysis.. She was started on amiodarone infusion. She has converted to sinus bradycardia, amiodarone was discontinued on 08/26/2024 Currently off heparin infusion due to anemia (14) Encephalopathy: Code(s): G93.40 - Encephalopathy, unspecified Status: Acute Assessment and Plan: Patient was on Versed and fentanyl infusion for many days. She also has renal failure which may lead to accumulation -started on propofol infusion -off propofol patient becomes tachypneic and dyssynchronous with the ventilator leading her to desaturate -08/26/2024: CT scan of the brain No intracranial hemorrhage, mass, or acute infarct.Atrophy and chronic white matter changes. -ammonia levels within normal limits Plan DVT prophylaxis -off heparin infusion due to anemia Stress ulcer prophylaxis -increase Protonix to q.12 hours Nutrition -continue tube feeds Code Status - Full Code 08/28: Had a long discussion with both sons, Luke and Geoffrey. I updated them with patient's condition plan of care. They understand that the patient has multiple medical problems but requested that she gets a tracheostomy and PEG tube placement as they want to give her a complete chance to recover 08/18 Dr Crawford and updated patient's son and his at bedside I answered all his questions. 08/19 Dr Crawford also met with patient's both sons as they wanted to proceed with hemodialysis. 08/22 Dr Crawford met with patient's 2 sons and updated them with patient's status including continued respiratory failure, shock, new issues of AFib with RVR and. I also updated them with treatment plan and answered all the questions. Total Critical Care Time - 34 minutes Due to a high probability of clinically significant, life threatening deterioration, the patient required my highest level of preparedness to intervene emergently and I personally spent this critical care time directly and personally managing the patient. This critical care time included obtaining a history; examining the patient; pulse oximetry; ordering and review of studies; arranging urgent treatment with development of a management plan; evaluation of patient's response to treatment; frequent reassessment; and discussions with other providers. It was exclusive of separately billable procedures and treating other patients and teaching time. Please see Assessment and Plan section and the rest of the note for further information on patient assessment and treatment. This dictation may have been done utilizing a voice recognition system. Attempts have been made to correct errors. However, there may be uncorrected grammatical, spelling, and recognitions errors present. Subjective Date/time seen: 08/30/24 08:35 Interval history: 08/18: Intubated 08/19 temporary dialysis catheter placed patient was dialyzed 08/21 vent into AFib with RVR. Converted to sinus Steve with amiodarone 08/23 Dobbhoff tube inserted 08/28: Transfuse 1 unit of PRBC 08/30/2024: Patient seen examined the ICU, remains intubated on CMV mode of ventilation, peep of 8, 50% FiO2. Patient is sedated with Precedex infusion, does not open her eyes, follows simple commands a withdraw to pain. Off norepinephrine. Anuric, afebrile, hemodynamically stable. Secretions are better, hemoglobin is stable Review of Systems Review of Systems: ROS unobtainable: Yes unobtainable due to endotracheal tube, unobtainable due to medical condition and unobtainable due to mental status Exam Narrative: General: Pt is sedated, intubated and on mechanical ventilation HEENT: Pupils equal and reactive, sclera is clear, ETT in place Lungs/Chest: Trachea central Coarse BS B/L, bilateral rales, no wheezing, adequate air entry Cardiac: RRR. Normal S1 S2. No murmurs Abdomen: Soft, nontender, nondistended, hypoactive bowel sounds Extremities: Bilateral pitting edema, palpable pedal pulse : Butt in place Neurologic: Currently intubated, on Precedex infusion, does not open her eyes or follow simple commands. Patient does not withdraw to pain Objective Data Vital Signs Vital Signs: Vital Signs - 24 hr 08/29/24 10:00 08/29/24 10:00 08/29/24 10:00 Temperature Pulse Rate 108 H 108 H 108 H Respiratory Rate 36 H 25 H Blood Pressure 105/70 Pulse Oximetry 92 Oxygen Delivery Fraction of Inspired Oxygen 08/29/24 10:00 08/29/24 10:30 08/29/24 11:04 Temperature Pulse Rate 108 H 108 H 108 H Respiratory Rate 25 H Blood Pressure 98/65 L 98/65 L Pulse Oximetry 93 93 Oxygen Delivery Mechanical Ventilation Fraction of Inspired Oxygen 35 08/29/24 12:00 08/29/24 12:00 08/29/24 12:00 Temperature Pulse Rate 107 H 106 H Respiratory Rate 24 H Blood Pressure Pulse Oximetry Oxygen Delivery Fraction of Inspired Oxygen 35 08/29/24 12:00 08/29/24 12:05 08/29/24 12:05 Temperature Pulse Rate 107 H Respiratory Rate Blood Pressure 105/68 Pulse Oximetry 86 L Oxygen Delivery Fraction of Inspired Oxygen 50 08/29/24 12:12 08/29/24 12:20 08/29/24 12:31 Temperature Pulse Rate 107 H 107 H 107 H Respiratory Rate 24 H 25 H 26 H Blood Pressure 101/66 Pulse Oximetry 91 Oxygen Delivery Fraction of Inspired Oxygen 08/29/24 12:40 08/29/24 14:00 08/29/24 14:00 Temperature 97.9 F Pulse Rate 106 H 106 H Respiratory Rate 25 H Blood Pressure 118/78 Pulse Oximetry 92 Oxygen Delivery Fraction of Inspired Oxygen 08/29/24 14:00 08/29/24 14:00 08/29/24 14:20 Temperature Pulse Rate 106 H 106 H 108 H Respiratory Rate 27 H 25 H Blood Pressure 118/78 Pulse Oximetry 93 Oxygen Delivery Fraction of Inspired Oxygen 08/29/24 14:22 08/29/24 14:28 08/29/24 14:30 Temperature Pulse Rate 106 H 107 H 107 H Respiratory Rate 25 H 27 H Blood Pressure Pulse Oximetry 93 Oxygen Delivery Mechanical Ventilation Fraction of Inspired Oxygen 50 08/29/24 14:35 08/29/24 15:08 08/29/24 15:35 Temperature 98.9 F Pulse Rate 106 H 106 H 105 H Respiratory Rate 24 H 27 H 28 H Blood Pressure Pulse Oximetry 94 Oxygen Delivery Fraction of Inspired Oxygen 08/29/24 16:00 08/29/24 16:00 08/29/24 16:00 Temperature 99.1 F Pulse Rate 103 H 104 H Respiratory Rate 31 H Blood Pressure 104/67 105/67 Pulse Oximetry 93 Oxygen Delivery Fraction of Inspired Oxygen 50 08/29/24 16:00 08/29/24 16:00 08/29/24 16:35 Temperature Pulse Rate 103 H 102 H Respiratory Rate 28 H Blood Pressure Pulse Oximetry 93 Oxygen Delivery Mechanical Ventilation Fraction of Inspired Oxygen 50 08/29/24 16:35 08/29/24 18:00 08/29/24 18:00 Temperature Pulse Rate 102 H 102 H 102 H Respiratory Rate 31 H Blood Pressure 104/65 104/65 Pulse Oximetry 93 93 Oxygen Delivery Mechanical Ventilation Fraction of Inspired Oxygen 50 08/29/24 18:00 08/29/24 18:14 08/29/24 20:00 Temperature Pulse Rate 101 H 102 H Respiratory Rate 27 H Blood Pressure Pulse Oximetry Oxygen Delivery Mechanical Ventilation Fraction of Inspired Oxygen 50 08/29/24 20:00 08/29/24 20:00 08/29/24 20:00 Temperature 99.6 F Pulse Rate 96 96 Respiratory Rate 36 H Blood Pressure 100/64 Pulse Oximetry 94 Oxygen Delivery Fraction of Inspired Oxygen 50 08/29/24 20:02 08/29/24 20:04 08/29/24 20:08 Temperature Pulse Rate 96 97 96 Respiratory Rate 29 H 29 H Blood Pressure Pulse Oximetry 94 Oxygen Delivery Mechanical Ventilation Fraction of Inspired Oxygen 50 08/29/24 20:20 08/29/24 22:00 08/29/24 22:00 Temperature Pulse Rate 99 98 98 Respiratory Rate 32 H 32 H Blood Pressure 99/60 L Pulse Oximetry 93 Oxygen Delivery Fraction of Inspired Oxygen 08/29/24 22:04 08/29/24 22:52 08/30/24 00:00 Temperature Pulse Rate 99 100 Respiratory Rate 33 H Blood Pressure Pulse Oximetry 93 Oxygen Delivery Mechanical Ventilation Mechanical Ventilation Fraction of Inspired Oxygen 50 50 08/30/24 00:00 08/30/24 00:00 08/30/24 00:00 Temperature 99 F Pulse Rate 99 99 Respiratory Rate 32 H Blood Pressure 101/62 Pulse Oximetry 93 Oxygen Delivery Fraction of Inspired Oxygen 50 08/30/24 00:22 08/30/24 00:22 08/30/24 02:00 Temperature Pulse Rate 100 100 97 Respiratory Rate 34 H 34 H 33 H Blood Pressure Pulse Oximetry Oxygen Delivery Fraction of Inspired Oxygen 08/30/24 02:00 08/30/24 02:00 08/30/24 02:10 Temperature Pulse Rate 97 97 97 Respiratory Rate 33 H 33 H Blood Pressure 99/67 L Pulse Oximetry 93 Oxygen Delivery Fraction of Inspired Oxygen 08/30/24 02:14 08/30/24 02:24 08/30/24 04:00 Temperature Pulse Rate 98 94 97 Respiratory Rate 34 H 33 H Blood Pressure Pulse Oximetry 93 Oxygen Delivery Mechanical Ventilation Fraction of Inspired Oxygen 50 08/30/24 04:00 08/30/24 04:00 08/30/24 04:00 Temperature Pulse Rate 96 Respiratory Rate Blood Pressure Pulse Oximetry Oxygen Delivery Mechanical Ventilation Fraction of Inspired Oxygen 50 50 08/30/24 04:00 08/30/24 05:01 08/30/24 06:00 Temperature 99.0 F Pulse Rate 96 96 97 Respiratory Rate 33 H Blood Pressure 96/65 L Pulse Oximetry 93 93 Oxygen Delivery Mechanical Ventilation Fraction of Inspired Oxygen 50 08/30/24 06:00 08/30/24 06:07 08/30/24 08:18 Temperature Pulse Rate 97 95 92 Respiratory Rate 34 H 32 H 31 H Blood Pressure 100/68 Pulse Oximetry 93 Oxygen Delivery Fraction of Inspired Oxygen 08/30/24 08:23 Temperature Pulse Rate 93 Respiratory Rate Blood Pressure Pulse Oximetry 96 Oxygen Delivery Mechanical Ventilation Fraction of Inspired Oxygen 50 Intake/Output Intake/Output: Intake & Output 08/27/24 08/28/24 08/29/24 08/30/24 23:59 23:59 23:59 23:59 Intake Total 2377.4 2304.6 1939.7 729.3 Output Total 3102 3841 25 0 Balance -724.6 -1536.4 1914.7 729.3 Meds/Results Medications: Active Medications Generic Name Dose Route Start Last Admin Trade Name Freq PRN Reason Stop Dose Admin Acetaminophen 650 mg 08/18/24 21:48 08/28/24 01:10 Acetaminophen Elixir 325 Mg/10.15 Ml Udc PO 650 mg Q4H PRN Administration Mild Pain (1-3) or Fever Acetylcysteine 200 mg 08/28/24 08:00 08/30/24 08:17 Acetylcysteine 20% Inhal Soln 800 Mg/4 Ml Vial INHALATION 200 mg Q6HRT TEMI Administration Dextrose 12.5 gm 08/29/24 15:45 Dextrose 50% 25 Gm/50 Ml Syringe IV PUSH PRN PRN Hypoglycemia Protocol Dornase Oliver 2.5 mg 08/28/24 10:05 08/30/24 08:17 Dornase Oliver Inh Soln 1 Mg/Ml 2.5 Ml Amp INHALATION 08/30/24 20:01 2.5 mg Q12HRT TEMI Administration Epoetin Oliver-epbx 10,000 units 08/30/24 19:35 Epoetin Oliver-Epbx 10,000 Units/Ml Vial IV PUSH 08/30/24 19:36 ONCE ONE Glucagon 1 mg 08/29/24 15:45 Glucagon For Inj 1 Mg Vial IM PRN PRN Hypoglycemia Protocol Glucose 15 gm 08/29/24 15:45 Glucose Oral Gel 15 Gm Of Glucse In 37.5 Gm Tube PO PRN PRN Hypoglycemia Protocol Heparin Sodium (Porcine) 5,500 units 08/18/24 15:05 08/18/24 23:23 Heparin Sodium 5,000 Units/Ml Vial IV PUSH 5,500 units PRN PRN Administration aPTT less than 55 seconds Heparin Sodium (Porcine) 3,000 units 08/18/24 15:05 08/23/24 10:58 Heparin Sodium 5,000 Units/Ml Vial IV PUSH 3,000 units PRN PRN Administration aPTT 55 - 70 seconds Heparin Sodium (Porcine) 5,000 units 08/29/24 07:45 08/30/24 05:11 Heparin Sodium 5,000 Units/Ml Vial SUB-Q 5,000 units Q8HR TEMI Administration Heparin Sodium/Dextrose 25,000 units in 250 mls @ 23 mls/hr 08/18/24 15:05 08/28/24 22:25 Heparin Sodium/D5w 100 Units/Ml IV CONT Infused .[id number] TEMI Titration Protocol 2,300 UNITS/HR Norepinephrine Bitartrate 8 mg in 250 mls @ 0 mls/hr 08/19/24 12:30 08/29/24 18:00 Levophed 8 Mg/D5w 250 Ml IV CONT Infused .Q0M TEMI Titration Protocol 0 MCG/MIN Albumin Human 50 mls @ 999 mls/hr 08/21/24 06:28 Albutein IVPB 09/20/24 06:27 Q10M PRN HYPOTENSION Meropenem 500 mg in 100 mls @ 200 mls/hr 08/29/24 08:00 08/29/24 08:40 IVPB Infused Q24H TEMI Infusion Dexmedetomidine HCl 400 mcg in 100 mls @ 6.345 mls/hr 08/29/24 14:30 08/30/24 06:07 Precedex 400 Mcg/100 Ml IV CONT 0.3 mcg/kg/hr .[id number] TEMI 6.35 mls/hr Titration Protocol 0.3 MCG/KG/HR Insulin Human Regular 100 100 mls @ 3 mls/hr 08/29/24 16:00 08/30/24 08:00 units/ Sodium Chloride IV CONT 3 units/hr .Q24H TEMI 3 mls/hr Titration Protocol 3 UNITS/HR Dextrose 1,000 mls @ 100 mls/hr 08/29/24 15:45 Dextrose 5% 1,000 Ml IVPB PRN PRN Hypoglycemia Protocol Vancomycin HCl 500 mg in 100 mls @ 100 mls/hr 08/30/24 18:00 Vancomycin 500 Mg/Ns 100 Ml IVPB 08/30/24 18:59 ONCE ONE Insulin Aspart 4 - 8 units 08/20/24 21:05 08/29/24 12:41 Insulin Aspart (*Bkc) 100 Units/Ml SUB-Q 8 units Q4HR TEMI Administration Protocol Insulin Glargine 50 units 08/29/24 09:00 08/29/24 08:22 Insulin Glargine (*Bkc) 100 Units/Ml SUB-Q 50 units Q12H TEMI Administration Ipratropium Export 0.5 mg 08/29/24 12:22 08/29/24 12:20 Ipratropium Br 0.02% Inh Soln 0.5 Mg/2.5 Ml Vial INHALATION 0.5 mg Q6HRT PRN Administration Wheezing Levalbuterol HCl 1.25 mg 08/29/24 14:00 08/30/24 08:17 Levalbuterol Neb 1.25 Mg/3 Ml INHALATION 1.25 mg Q6HRT TEMI Administration Levalbuterol HCl 1.25 mg 08/29/24 12:22 08/29/24 12:20 Levalbuterol Neb 1.25 Mg/3 Ml INHALATION 1.25 mg Q6HRT PRN Administration Wheezing Metoclopramide HCl 10 mg 08/23/24 08:00 08/30/24 08:28 Metoclopramide Hcl 10 Mg/10 Ml Soln Udc PO 10 mg Q6H TEMI Administration Multi-Ingred Cream/Lotion/Oil/Oint 1 applic 08/18/24 09:00 08/29/24 21:13 Mineral Oil/White Petrolatum Ointment EACH EYE 1 applic Q12HR TEMI Administration Pantoprazole Sodium 40 mg 08/28/24 21:00 08/29/24 21:13 Pantoprazole Sodium Iv 40 Mg Vial IV PUSH 40 mg Q12HR TEMI Administration Polyethylene Glycol 17 gm 08/15/24 22:20 08/28/24 08:19 Polyethylene Glycol 3350 17 Gm Powd.Pack PO 17 gm DAILY PRN Administration constipation Sodium Chloride 10 ml 08/19/24 22:00 08/30/24 05:11 Central Line Flush IV PUSH 10 ml Q8HR TEMI Administration Sodium Chloride 20 ml 08/19/24 18:43 Central Line Flush IV PUSH PRN PRN after blood draws Vancomycin HCl 1 each 08/30/24 06:14 Vancomycin For Hemodialysis IVPB PRN PRN Vancomycin Protocol Radiology Results: ITS Impressions Chest CTA 08/15/24 11:11 IMPRESSION: No pulmonary embolus. No thoracic aortic dissection. Right upper lobe infiltrate with patchy bilateral airspace disease, likely inflammatory/congestive rather than infectious. Small bilateral pleural effusions with adjacent atelectasis. Venous Doppler Study 08/18/24 14:42 IMPRESSION: 1. Bilateral kwcyn-uml-ssud deep venous thrombosis in the left and right posterior tibial veins. Findings were discussed with the ICU nurse Carlos Herrera at 2:45 PM. Renal Ultrasound 08/19/24 14:10 IMPRESSION: No hydronephrosis or renal calculi. Findings suggesting medical renal disease. Findings within the upper pole of the right kidney consistent with patient's history, as detailed above. Chest/Abdomen/Pelvis CT 08/23/24 09:58 IMPRESSION: CHEST: 1. Bilateral pneumonia which is slightly decreased compared to previous study. Bilateral pleural effusion more on the right side. ABDOMEN/PELVIS: 1. No evidence of appendicitis, diverticulitis or intestinal obstruction. 2. Bilateral tiny kidney stones. 3. Hepatomegaly. 4. No evidence of ileus seen. ADDENDUM: 08/23/24 1042 Possibility of mass in the right kidney upper pole cannot be excluded. Abdomen X-Ray 08/23/24 16:53 IMPRESSION: 1. Dobbhoff type nasoenteric feeding tube with distal tip projecting over the gastric fundus. Head CT 08/26/24 09:32 Impression: No intracranial hemorrhage, mass, or acute infarct. Atrophy and chronic white matter changes, as above. Chest X-Ray 08/30/24 06:58 Impression: Probable severe pulmonary edema pattern with minimal pleural effusions. Correlate for pneumonia or ARDS. Support tubes, as above. Labs Labs: Laboratory Results - last 24 hr 08/29/24 08/29/24 08/29/24 06:22 12:39 14:42 WBC RBC Hgb Hct MCV MCH MCHC RDW Plt Count MPV Immature Gran % (Auto) Neut % (Auto) Lymph % (Auto) Pershing % (Auto) Eos % (Auto) Baso % (Auto) Lymph # (Auto) Pershing # (Auto) Eos # (Auto) Baso # (Auto) Abs Immat Gran (auto) Absolute Neuts (auto) Absolute Nucleated RBC Band Neutrophils % Nucleated RBC % Platelet Estimate Hypochromasia Anisocytosis Microcytosis Schistocytes Puncture Site ABG pH ABG pCO2 ABG pO2 ABG PO2/FiO2 Ratio ABG HCO3 ABG O2 Saturation ABG O2 Content ABG Base Excess A-a Gradient Oxyhemoglobin Carboxyhemoglobin Methemoglobin Reduced Hemoglobin Total Hemoglobin O2 Delivery Device O2 Liters/Min Minute Volume Vent Rate Vent Mode FiO2 Tidal Volume PEEP Peak Inspir Pressure Pressure Support Sodium Potassium Chloride Carbon Dioxide Anion Gap BUN Creatinine Estim Creat Clear Calc Estimated GFR Glucose POC Capillary Glucose 374 H 437 H Calcium Phosphorus Magnesium Total Bilirubin AST ALT Alkaline Phosphatase Total Protein Albumin Triglycerides 282 H Vancomycin Trough 08/29/24 08/29/24 08/29/24 14:44 15:09 16:27 WBC RBC Hgb Hct MCV MCH MCHC RDW Plt Count MPV Immature Gran % (Auto) Neut % (Auto) Lymph % (Auto) Pershing % (Auto) Eos % (Auto) Baso % (Auto) Lymph # (Auto) Pershing # (Auto) Eos # (Auto) Baso # (Auto) Abs Immat Gran (auto) Absolute Neuts (auto) Absolute Nucleated RBC Band Neutrophils % Nucleated RBC % Platelet Estimate Hypochromasia Anisocytosis Microcytosis Schistocytes Puncture Site ABG pH ABG pCO2 ABG pO2 ABG PO2/FiO2 Ratio ABG HCO3 ABG O2 Saturation ABG O2 Content ABG Base Excess A-a Gradient Oxyhemoglobin Carboxyhemoglobin Methemoglobin Reduced Hemoglobin Total Hemoglobin O2 Delivery Device O2 Liters/Min Minute Volume Vent Rate Vent Mode FiO2 Tidal Volume PEEP Peak Inspir Pressure Pressure Support Sodium 136 L Potassium 5.1 H Chloride 96 L Carbon Dioxide 20 L Anion Gap 20 H BUN 106 H D Creatinine 3.66 H Estim Creat Clear Calc 12 Estimated GFR 12 L Glucose 457 H POC Capillary Glucose 426 H 474 H Calcium 9.0 Phosphorus Magnesium Total Bilirubin AST ALT Alkaline Phosphatase Total Protein Albumin Triglycerides Vancomycin Trough 08/29/24 08/29/24 08/29/24 18:13 18:30 19:05 WBC RBC Hgb Hct MCV MCH MCHC RDW Plt Count MPV Immature Gran % (Auto) Neut % (Auto) Lymph % (Auto) Pershing % (Auto) Eos % (Auto) Baso % (Auto) Lymph # (Auto) [place]hing # (Auto) Eos # (Auto) Baso # (Auto) Abs Immat Gran (auto) Absolute Neuts (auto) Absolute Nucleated RBC Band Neutrophils % Nucleated RBC % Platelet Estimate Hypochromasia Anisocytosis Microcytosis Schistocytes Puncture Site ABG pH ABG pCO2 ABG pO2 ABG PO2/FiO2 Ratio ABG HCO3 ABG O2 Saturation ABG O2 Content ABG Base Excess A-a Gradient Oxyhemoglobin Carboxyhemoglobin Methemoglobin Reduced Hemoglobin Total Hemoglobin O2 Delivery Device O2 Liters/Min Minute Volume Vent Rate Vent Mode FiO2 Tidal Volume PEEP Peak Inspir Pressure Pressure Support Sodium 136 L Potassium 4.8 Chloride 96 L Carbon Dioxide 21 L Anion Gap 19 H BUN 114 H Creatinine 4.15 H Estim Creat Clear Calc 11 Estimated GFR 10 L Glucose 414 H POC Capillary Glucose 428 H 395 H Calcium 9.0 Phosphorus Magnesium Total Bilirubin AST ALT Alkaline Phosphatase Total Protein Albumin Triglycerides Vancomycin Trough 08/29/24 08/29/24 08/29/24 19:58 21:12 22:03 WBC RBC Hgb Hct MCV MCH MCHC RDW Plt Count MPV Immature Gran % (Auto) Neut % (Auto) Lymph % (Auto) Pershing % (Auto) Eos % (Auto) Baso % (Auto) Lymph # (Auto) [place] # (Auto) Eos # (Auto) Baso # (Auto) Abs Immat Gran (auto) Absolute Neuts (auto) Absolute Nucleated RBC Band Neutrophils % Nucleated RBC % Platelet Estimate Hypochromasia Anisocytosis Microcytosis Schistocytes Puncture Site ABG pH ABG pCO2 ABG pO2 ABG PO2/FiO2 Ratio ABG HCO3 ABG O2 Saturation ABG O2 Content ABG Base Excess A-a Gradient Oxyhemoglobin Carboxyhemoglobin Methemoglobin Reduced Hemoglobin Total Hemoglobin O2 Delivery Device O2 Liters/Min Minute Volume Vent Rate Vent Mode FiO2 Tidal Volume PEEP Peak Inspir Pressure Pressure Support Sodium Potassium Chloride Carbon Dioxide Anion Gap BUN Creatinine Estim Creat Clear Calc Estimated GFR Glucose POC Capillary Glucose 356 H 307 H 285 H Calcium Phosphorus Magnesium Total Bilirubin AST ALT Alkaline Phosphatase Total Protein Albumin Triglycerides Vancomycin Trough 08/29/24 08/30/24 08/30/24 22:59 00:07 01:02 WBC RBC Hgb Hct MCV MCH MCHC RDW Plt Count MPV Immature Gran % (Auto) Neut % (Auto) Lymph % (Auto) Pershing % (Auto) Eos % (Auto) Baso % (Auto) Lymph # (Auto) [place]hing # (Auto) Eos # (Auto) Baso # (Auto) Abs Immat Gran (auto) Absolute Neuts (auto) Absolute Nucleated RBC Band Neutrophils % Nucleated RBC % Platelet Estimate Hypochromasia Anisocytosis Microcytosis Schistocytes Puncture Site ABG pH ABG pCO2 ABG pO2 ABG PO2/FiO2 Ratio ABG HCO3 ABG O2 Saturation ABG O2 Content ABG Base Excess A-a Gradient Oxyhemoglobin Carboxyhemoglobin Methemoglobin Reduced Hemoglobin Total Hemoglobin O2 Delivery Device O2 Liters/Min Minute Volume Vent Rate Vent Mode FiO2 Tidal Volume PEEP Peak Inspir Pressure Pressure Support Sodium Potassium Chloride Carbon Dioxide Anion Gap BUN Creatinine Estim Creat Clear Calc Estimated GFR Glucose POC Capillary Glucose 284 H 233 H 176 H Calcium Phosphorus Magnesium Total Bilirubin AST ALT Alkaline Phosphatase Total Protein Albumin Triglycerides Vancomycin Trough 08/30/24 08/30/24 08/30/24 02:03 03:03 04:03 WBC RBC Hgb Hct MCV MCH MCHC RDW Plt Count MPV Immature Gran % (Auto) Neut % (Auto) Lymph % (Auto) Pershing % (Auto) Eos % (Auto) Baso % (Auto) Lymph # (Auto) [place]hing # (Auto) Eos # (Auto) Baso # (Auto) Abs Immat Gran (auto) Absolute Neuts (auto) Absolute Nucleated RBC Band Neutrophils % Nucleated RBC % Platelet Estimate Hypochromasia Anisocytosis Microcytosis Schistocytes Puncture Site ABG pH ABG pCO2 ABG pO2 ABG PO2/FiO2 Ratio ABG HCO3 ABG O2 Saturation ABG O2 Content ABG Base Excess A-a Gradient Oxyhemoglobin Carboxyhemoglobin Methemoglobin Reduced Hemoglobin Total Hemoglobin O2 Delivery Device O2 Liters/Min Minute Volume Vent Rate Vent Mode FiO2 Tidal Volume PEEP Peak Inspir Pressure Pressure Support Sodium Potassium Chloride Carbon Dioxide Anion Gap BUN Creatinine Estim Creat Clear Calc Estimated GFR Glucose POC Capillary Glucose 178 H 178 H 214 H Calcium Phosphorus Magnesium Total Bilirubin AST ALT Alkaline Phosphatase Total Protein Albumin Triglycerides Vancomycin Trough 08/30/24 08/30/24 08/30/24 04:46 05:06 05:15 WBC 14.8 H RBC 3.27 L Hgb 8.3 L Hct 28.0 L MCV 85.6 MCH 25.4 L MCHC 29.6 L RDW 19.0 H Plt Count 217 MPV 11.7 H Immature Gran % (Auto) 5.0 H Neut % (Auto) 78.6 H Lymph % (Auto) 7.7 L Pershing % (Auto) 7.7 Eos % (Auto) 0.5 Baso % (Auto) 0.5 Lymph # (Auto) 1.13 Pershing # (Auto) 1.1 H Eos # (Auto) 0.1 Baso # (Auto) 0.1 Abs Immat Gran (auto) 0.74 H Absolute Neuts (auto) 11.6 H Absolute Nucleated RBC 0.380 H Band Neutrophils % Not Reportable Nucleated RBC % 2.6 H Platelet Estimate Adequate Hypochromasia 1+ Anisocytosis 1+ Microcytosis 1+ Schistocytes None seen Puncture Site Right radial ABG pH 7.413 ABG pCO2 34.2 L ABG pO2 68.5 L ABG PO2/FiO2 Ratio 1.37 ABG HCO3 21.3 L ABG O2 Saturation 94.1 L ABG O2 Content 11.9 L ABG Base Excess -2.8 A-a Gradient 249.5 Oxyhemoglobin 92.3 Carboxyhemoglobin 0.2 Methemoglobin 0.2 Reduced Hemoglobin 7.3 H Total Hemoglobin 9.1 L O2 Delivery Device Ventilator O2 Liters/Min Not Reportable Minute Volume Not Reportable Vent Rate 18 Vent Mode Cmv FiO2 50 Tidal Volume 320 PEEP 8 Peak Inspir Pressure Not Reportable Pressure Support Not Reportable Sodium 137 Potassium 5.1 H Chloride 95 L Carbon Dioxide 22 Anion Gap 20 H BUN 128 H D Creatinine 4.11 H Estim Creat Clear Calc 11 Estimated GFR 10 L Glucose 238 H POC Capillary Glucose 224 H Calcium 9.1 Phosphorus 5.5 H Magnesium 3.1 H Total Bilirubin 0.3 AST 24 ALT 46 H Alkaline Phosphatase 107 Total Protein 7.0 Albumin 3.7 Triglycerides Vancomycin Trough 21.2 H 08/30/24 08/30/24 08/30/24 06:06 07:04 07:56 WBC RBC Hgb Hct MCV MCH MCHC RDW Plt Count MPV Immature Gran % (Auto) Neut % (Auto) Lymph % (Auto) [place]hing % (Auto) Eos % (Auto) Baso % (Auto) Lymph # (Auto) [place] # (Auto) Eos # (Auto) Baso # (Auto) Abs Immat Gran (auto) Absolute Neuts (auto) Absolute Nucleated RBC Band Neutrophils % Nucleated RBC % Platelet Estimate Hypochromasia Anisocytosis Microcytosis Schistocytes Puncture Site ABG pH ABG pCO2 ABG pO2 ABG PO2/FiO2 Ratio ABG HCO3 ABG O2 Saturation ABG O2 Content ABG Base Excess A-a Gradient Oxyhemoglobin Carboxyhemoglobin Methemoglobin Reduced Hemoglobin Total Hemoglobin O2 Delivery Device O2 Liters/Min Minute Volume Vent Rate Vent Mode FiO2 Tidal Volume PEEP Peak Inspir Pressure Pressure Support Sodium Potassium Chloride Carbon Dioxide Anion Gap BUN Creatinine Estim Creat Clear Calc Estimated GFR Glucose POC Capillary Glucose 255 H 260 H 237 H Calcium Phosphorus Magnesium Total Bilirubin AST ALT Alkaline Phosphatase Total Protein Albumin Triglycerides Vancomycin Trough Quality VTE Prophylaxis VTE prophylaxis: mechanical ordered and pharmacologic ordered
[2024-08-30 08:59] LABS: Glucose Point of Care 219 mg/dl (65-105)
[2024-08-30] MEDS: MINERAL OIL/WHITE PETROLATUM OINTMENT 1 APPLIC EACH EYE ×2 (09:00→20:48)
[2024-08-30] MEDS: HEPARIN SODIUM 1,000 UNITS/ML VIAL 500 UNITS IV PUSH (09:34)
[2024-08-30] MEDS: ALBUMIN HUMAN 25% 25 GM/100 ML 100 ML IVPB (09:35)
[2024-08-30] MEDS: EPOETIN ALFA-EPBX 10,000 UNITS/ML VIAL 10000 UNITS IV PUSH (09:38)
[2024-08-30 10:05] LABS: Glucose Point of Care 150 mg/dl (65-105)
--- NOTE | 2024-08-30 10:47 | P.PNNP_ITS ---
Subjective Date/time seen: 08/30/24 10:47 Interval history: Follow-up for acute kidney injury/acute renal failure on chronic kidney disease. Tolerating dialysis treatment at the time of my visit (seen on HD at 10:35AM); remains intubated/sedated and on mechanical ventilation; weaned off levophed gtt yesterday with relative stability in hemodynamics currently; not making any in the last 24 - 48 hours (anuric); no other acute events overnight or earlier this morning. Objective Data Vital Signs Vital Signs: Vital Signs Temp Pulse Resp BP Pulse Ox O2 Del Method FiO2 08/30/24 10:45 127 H 90/61 L 08/30/24 10:32 122 H 92/74 L 08/30/24 10:30 120 H 89/61 L 08/30/24 10:15 113 H 32 H 08/30/24 10:15 115 H 100/60 08/30/24 10:10 113 H 08/30/24 10:00 95 30 H 98/61 L 96 08/30/24 10:00 95 08/30/24 10:00 95 98/61 L 08/30/24 09:45 95 99/62 L 08/30/24 09:30 93 103/64 08/30/24 09:15 93 101/62 08/30/24 09:05 94 102/64 08/30/24 08:55 50 08/30/24 08:55 98.1 F 96 32 H 109/65 95 08/30/24 08:23 93 96 Mechanical Ventilation 50 08/30/24 08:18 92 31 H 08/30/24 08:00 50 08/30/24 08:00 93 08/30/24 08:00 95 Mechanical Ventilation 50 08/30/24 08:00 98.4 F 94 30 H 95/59 L 95 08/30/24 08:00 94 30 H 08/30/24 06:07 95 32 H 08/30/24 06:00 97 34 H 100/68 93 08/30/24 06:00 97 08/30/24 05:01 96 93 Mechanical Ventilation 50 08/30/24 04:00 99.0 F 96 33 H 96/65 L 93 08/30/24 04:00 96 08/30/24 04:00 50 08/30/24 04:00 Mechanical Ventilation 50 08/30/24 04:00 97 33 H 08/30/24 02:24 94 34 H 08/30/24 02:14 98 93 Mechanical Ventilation 50 08/30/24 02:10 97 33 H 08/30/24 02:00 97 33 H 99/67 L 93 08/30/24 02:00 97 08/30/24 02:00 97 33 H 08/30/24 00:22 100 34 H 08/30/24 00:22 100 34 H 08/30/24 00:00 50 08/30/24 00:00 99 F 99 32 H 101/62 93 08/30/24 00:00 99 08/30/24 00:00 Mechanical Ventilation 50 08/29/24 22:52 100 93 Mechanical Ventilation 50 08/29/24 22:04 99 33 H 08/29/24 22:00 98 32 H 99/60 L 93 08/29/24 22:00 98 08/29/24 20:20 99 32 H 08/29/24 20:08 96 94 Mechanical Ventilation 50 08/29/24 20:04 97 29 H 08/29/24 20:02 96 29 H 08/29/24 20:00 99.6 F 96 36 H 100/64 94 08/29/24 20:00 50 08/29/24 20:00 96 08/29/24 20:00 Mechanical Ventilation 50 08/29/24 18:14 102 H 27 H 08/29/24 18:00 101 H 08/29/24 18:00 102 H 31 H 104/65 93 08/29/24 18:00 102 H 104/65 08/29/24 16:35 102 H 93 Mechanical Ventilation 50 08/29/24 16:35 102 H 28 H 08/29/24 16:00 103 H 08/29/24 16:00 93 Mechanical Ventilation 50 08/29/24 16:00 104 H 105/67 08/29/24 16:00 50 08/29/24 16:00 99.1 F 103 H 31 H 104/67 93 08/29/24 15:35 105 H 28 H 08/29/24 15:08 98.9 F 106 H 27 H 94 08/29/24 14:35 106 H 24 H 08/29/24 14:30 107 H 27 H 08/29/24 14:28 107 H 25 H 08/29/24 14:22 106 H 93 Mechanical Ventilation 50 08/29/24 14:20 108 H 25 H 08/29/24 14:00 106 H 27 H 118/78 93 08/29/24 14:00 106 H 08/29/24 14:00 106 H 118/78 08/29/24 14:00 106 H 25 H 08/29/24 12:40 97.9 F 92 08/29/24 12:31 107 H 26 H 08/29/24 12:20 107 H 25 H 08/29/24 12:12 107 H 24 H 101/66 91 08/29/24 12:05 86 L 08/29/24 12:05 50 08/29/24 12:00 107 H 105/68 08/29/24 12:00 106 H 24 H 08/29/24 12:00 107 H 08/29/24 12:00 35 Intake/Output Intake/Output: Intake & Output 08/27/24 08/28/24 08/29/24 08/30/24 23:59 23:59 23:59 23:59 Intake Total 2377.4 2304.6 1939.7 772.3 Output Total 3102 3841 25 0 Balance -724.6 -1536.4 1914.7 772.3 Meds/Results Medications: Active Medications Generic Name Dose Route Start Last Admin Trade Name Freq PRN Reason Stop Dose Admin Acetaminophen 650 mg 08/18/24 21:48 08/28/24 01:10 Acetaminophen Elixir 325 Mg/10.15 Ml Udc PO 650 mg Q4H PRN Administration Mild Pain (1-3) or Fever Acetylcysteine 200 mg 08/28/24 08:00 08/30/24 08:17 Acetylcysteine 20% Inhal Soln 800 Mg/4 Ml Vial INHALATION 200 mg Q6HRT TEMI Administration Dextrose 12.5 gm 08/29/24 15:45 Dextrose 50% 25 Gm/50 Ml Syringe IV PUSH PRN PRN Hypoglycemia Protocol Dornase Oliver 2.5 mg 08/28/24 10:05 08/30/24 08:17 Dornase Oliver Inh Soln 1 Mg/Ml 2.5 Ml Amp INHALATION 08/30/24 20:01 2.5 mg Q12HRT TEMI Administration Epoetin Oliver-epbx 10,000 units 08/30/24 19:35 08/30/24 09:38 Epoetin Oliver-Epbx 10,000 Units/Ml Vial IV PUSH 08/30/24 19:36 10,000 units ONCE ONE Administration Glucagon 1 mg 08/29/24 15:45 Glucagon For Inj 1 Mg Vial IM PRN PRN Hypoglycemia Protocol Glucose 15 gm 08/29/24 15:45 Glucose Oral Gel 15 Gm Of Glucse In 37.5 Gm Tube PO PRN PRN Hypoglycemia Protocol Heparin Sodium (Porcine) 5,500 units 08/18/24 15:05 08/18/24 23:23 Heparin Sodium 5,000 Units/Ml Vial IV PUSH 5,500 units PRN PRN Administration aPTT less than 55 seconds Heparin Sodium (Porcine) 3,000 units 08/18/24 15:05 08/23/24 10:58 Heparin Sodium 5,000 Units/Ml Vial IV PUSH 3,000 units PRN PRN Administration aPTT 55 - 70 seconds Heparin Sodium (Porcine) 5,000 units 08/29/24 07:45 08/30/24 05:11 Heparin Sodium 5,000 Units/Ml Vial SUB-Q 5,000 units Q8HR TEMI Administration Heparin Sodium/Dextrose 25,000 units in 250 mls @ 23 mls/hr 08/18/24 15:05 08/28/24 22:25 Heparin Sodium/D5w 100 Units/Ml IV CONT Infused .[id number] TEMI Titration Protocol 2,300 UNITS/HR Albumin Human 50 mls @ 999 mls/hr 08/21/24 06:28 Albutein IVPB 09/20/24 06:27 Q10M PRN HYPOTENSION Meropenem 500 mg in 100 mls @ 200 mls/hr 08/29/24 08:00 08/29/24 08:40 IVPB Infused Q24H TEMI Infusion Dexmedetomidine HCl 400 mcg in 100 mls @ 10.575 mls/hr 08/29/24 14:30 08/30/24 11:10 Precedex 400 Mcg/100 Ml IV CONT 0.4 mcg/kg/hr .Q9H28M TEMI 8.46 mls/hr Titration Protocol 0.5 MCG/KG/HR Insulin Human Regular 100 100 mls @ 1 mls/hr 08/29/24 16:00 08/30/24 11:00 units/ Sodium Chloride IV CONT 1 units/hr .Q24H TEMI 1 mls/hr Titration Protocol 1 UNITS/HR Dextrose 1,000 mls @ 100 mls/hr 08/29/24 15:45 Dextrose 5% 1,000 Ml IVPB PRN PRN Hypoglycemia Protocol Vancomycin HCl 500 mg in 100 mls @ 100 mls/hr 08/30/24 18:00 Vancomycin 500 Mg/Ns 100 Ml IVPB 08/30/24 18:59 ONCE ONE Norepinephrine Bitartrate 8 mg in 250 mls @ 9.375 mls/hr 08/30/24 11:10 08/30/24 11:10 Levophed 8 Mg/D5w 250 Ml IV CONT 5 mcg/min .Q24H TEMI 9.38 mls/hr Administration Protocol 5 MCG/MIN Insulin Aspart 4 - 8 units 08/20/24 21:05 08/29/24 12:41 Insulin Aspart (*Bkc) 100 Units/Ml SUB-Q 8 units Q4HR TEMI Administration Protocol Insulin Glargine 50 units 08/29/24 09:00 08/29/24 08:22 Insulin Glargine (*Bkc) 100 Units/Ml SUB-Q 50 units Q12H TEMI Administration Ipratropium [place] 0.5 mg 08/29/24 12:22 08/29/24 12:20 Ipratropium Br 0.02% Inh Soln 0.5 Mg/2.5 Ml Vial INHALATION 0.5 mg Q6HRT PRN Administration Wheezing Levalbuterol HCl 1.25 mg 08/29/24 14:00 08/30/24 08:17 Levalbuterol Neb 1.25 Mg/3 Ml INHALATION 1.25 mg Q6HRT TEMI Administration Levalbuterol HCl 1.25 mg 08/29/24 12:22 08/29/24 12:20 Levalbuterol Neb 1.25 Mg/3 Ml INHALATION 1.25 mg Q6HRT PRN Administration Wheezing Metoclopramide HCl 10 mg 08/23/24 08:00 08/30/24 08:28 Metoclopramide Hcl 10 Mg/10 Ml Soln Udc PO 10 mg Q6H TEMI Administration Multi-Ingred Cream/Lotion/Oil/Oint 1 applic 08/18/24 09:00 08/30/24 09:00 Mineral Oil/White Petrolatum Ointment EACH EYE 1 applic Q12HR TEMI Administration Pantoprazole Sodium 40 mg 08/28/24 21:00 08/29/24 21:13 Pantoprazole Sodium Iv 40 Mg Vial IV PUSH 40 mg Q12HR TEMI Administration Polyethylene Glycol 17 gm 08/15/24 22:20 08/28/24 08:19 Polyethylene Glycol 3350 17 Gm Powd.Pack PO 17 gm DAILY PRN Administration constipation Sodium Chloride 10 ml 08/19/24 22:00 08/30/24 05:11 Central Line Flush IV PUSH 10 ml Q8HR TEMI Administration Sodium Chloride 20 ml 08/19/24 18:43 Central Line Flush IV PUSH PRN PRN after blood draws Vancomycin HCl 1 each 08/30/24 06:14 Vancomycin For Hemodialysis IVPB PRN PRN Vancomycin Protocol Radiology Results: ITS Impressions Chest CTA 08/15/24 11:11 IMPRESSION: No pulmonary embolus. No thoracic aortic dissection. Right upper lobe infiltrate with patchy bilateral airspace disease, likely inflammatory/congestive rather than infectious. Small bilateral pleural effusions with adjacent atelectasis. Venous Doppler Study 08/18/24 14:42 IMPRESSION: 1. Bilateral [id number] deep venous thrombosis in the left and right posterior tibial veins. Findings were discussed with the ICU nurse Carlos Herrera at 2:45 PM. Renal Ultrasound 08/19/24 14:10 IMPRESSION: No hydronephrosis or renal calculi. Findings suggesting medical renal disease. Findings within the upper pole of the right kidney consistent with patient's history, as detailed above. Chest/Abdomen/Pelvis CT 08/23/24 09:58 IMPRESSION: CHEST: 1. Bilateral pneumonia which is slightly decreased compared to previous study. Bilateral pleural effusion more on the right side. ABDOMEN/PELVIS: 1. No evidence of appendicitis, diverticulitis or intestinal obstruction. 2. Bilateral tiny kidney stones. 3. Hepatomegaly. 4. No evidence of ileus seen. ADDENDUM: 08/23/24 1042 Possibility of mass in the right kidney upper pole cannot be excluded. Abdomen X-Ray 08/23/24 16:53 IMPRESSION: 1. Dobbhoff type nasoenteric feeding tube with distal tip projecting over the gastric fundus. Head CT 08/26/24 09:32 Impression: No intracranial hemorrhage, mass, or acute infarct. Atrophy and chronic white matter changes, as above. Chest X-Ray 08/30/24 06:58 Impression: Probable severe pulmonary edema pattern with minimal pleural effusions. Correlate for pneumonia or ARDS. Support tubes, as above. Labs Labs: Laboratory Tests 08/30/24 05:15 08/30/24 05:15 Calcium 9.1 Phosphorus 5.5 H Magnesium 3.1 H Total Bilirubin 0.3 AST 24 ALT 46 H Alkaline Phosphatase 107 Total Protein 7.0 Albumin 3.7 Vancomycin Trough 21.2 H Microbiology 08/29/24 08:22 Sputum Sputum Culture - Preliminary
[2024-08-30] MEDS: NOREPINEPHRINE 8 MG/D5W 250 ML 8 MG/250 ML BAG 9.38 MG IV CONT (11:10)
[2024-08-30 11:24] LABS: Glucose Point of Care 136 mg/dl (65-105)
--- NOTE | 2024-08-30 11:33 | PCFNICU ---
ICU Rounding Note: Pt current nutrition is Nepro at 40 ml/hr with Gianluca BID and Prosource BID. Last recorded weight is 86.3 kg, down from 88.8 kg on admit. Dialysis patient. Bowel Motility: Last reported BM 08/29 Labs Reviewed: PO4 5.5, BUN 128, Cr 4.11, K 5.1 Meds Noted: Precedex, Protonix, NovoLog, Reglan, Lantus, Regular Insulin Skin: Deep Tissue-buttock, unstageable-left heel. Additional Notes: Patient remains on mechanical vent. Dialysis today.Tube feedings are being tolerated of Nepro at 40 ml/hr with protein modulars of Gianluca BID and Prosource BID. Total Nutrition: 1904 kcal/117 gm protein/640 ml water. Flush 30 ml q 4 hours. Discussions regarding Trach/PEG and LTAC for discharge. Following daily in ICU rounds. Reassessing every Friday and Friday.
[2024-08-30 12:28] LABS: Glucose Point of Care 143 mg/dl (65-105)
[2024-08-30 13:24] LABS: Glucose Point of Care 156 mg/dl (65-105)
[2024-08-30] MEDS: AMIODARONE 150 MG/D5W 100 ML 150 MG/100 ML BAG 600 MG IV CONT (13:30)
[2024-08-30] MEDS: AMIODARONE 360 MG/D5W 200 ML 360 MG/200 ML BAG 33.33 MG IV CONT (13:45)
[2024-08-30] MEDS: PANTOPRAZOLE SODIUM IV 40 MG VIAL IV PUSH ×2 (13:51→20:47)
[2024-08-30] MEDS: MEROPENEM 500 MG/NS 100 ML 500 MG/100 ML BAG 200 MG IVPB (13:51)
[2024-08-30 14:02] LABS: Glucose Point of Care 233 mg/dl (65-105)
[2024-08-30 15:26] LABS: Glucose Point of Care 273 mg/dl (65-105)
[2024-08-30 15:44] LABS: Anion Gap 15 mmol/L (4-12); Blood Urea Nitrogen 49 mg/dL (7-17); Calcium 8.9 mg/dL (8.4-10.2); Carbon Dioxide 29 mmol/L (22-30); Chloride 93 mmol/L (98-107); Estimated CRCL calculation 22 ml/min; Estimated Glomerular Filt Rate 24; Glucose 275 mg/dL (65-110); Magnesium 2.2 mg/dL (1.6-2.3); Phosphorus 2.9 mg/dL (2.5-4.5); Potassium 3.6 mmol/L (3.4-5.0); Sodium 137 mmol/L (137-145)
--- NOTE | 2024-08-30 16:10 | P.CONGI_ITS ---
Assessment and Plan Assessment and plan (1) Encounter for PEG (percutaneous endoscopic gastrostomy): Code(s): Z43.1 - Encounter for attention to gastrostomy Status: Acute Assessment and Plan: The patient is deemed a good candidate for the procedure. Consent signed. Will proceed tomorrow afternoon in the ICU. GI Consult Note Consult date/time: 08/30/24 16:10 Reason for consult: Peg placement HPI: Ms. Chiquis Salas, an 84-year-old female with a history of CHF, HTN, DM, and renal cell carcinoma, was admitted on 08/15/2024. Her hospital course has been complicated by pneumonia, recent anemia, and bilateral DVT following subcutaneous heparin administration. The heparin was subsequently held due to a drop in hemoglobin, despite the absence of overt GI bleeding. The patient is currently intubated, and the reason for this consultation is to evaluate the possibility of PEG tube placement. According to nursing staff, the patient is currently receiving enteral nutrition via a nasoenteric Dobhoff tube. She also has an orogastric tube in place for medication administration and gastric decompression due to significant residuals encountered during prior nasogastric feeding attempts. The patient is currently on metoclopramide as a prokinetic agent. Review of Systems 2 Review of Systems: All systems reviewed & are unremarkable except as noted in HPI and below PMFSH Past Medical History Medical History Recurrent urinary tract infection Fuchs' corneal dystrophy Cancer of kidney suspected kidney cancer being monitored for the last 4 years with recent increase in growth and plans for possible radiation therapy Coronary artery disease patient of Dr. 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 Code status: Full code. Smoking status: Never smoker Alcohol intake: never Substance use: never Spiritual care concerns: No Meds Home Medications and Allergies Home Medications ?Medication ?Instructions ?Recorded ?Confirmed ?Type Lactobacillus acidophilus 100 mg PO DAILY 08/15/24 08/15/24 History (Acidophilus capsule) acetaminophen 325 mg tablet 325 mg PO Q4H PRN pain 08/15/24 08/15/24 History amlodipine 5 mg tablet 5 mg PO DAILY 08/15/24 08/15/24 History arginine-vitamin C-vitamin E oral 9.2 g PO TIDWM 08/15/24 08/15/24 History 4.5 gram-156 mg/9.2 gram powder pkt (Arginaid) aspirin 81 mg capsule 81 mg PO DAILY 08/15/24 08/15/24 History bupropion HCl 300 mg 24 hr tablet, 300 mg PO DAILY 08/15/24 08/15/24 History extended release d-mannose 500 mg capsule (AZO 500 mg PO BID 08/15/24 08/15/24 History D-Mannose) fluticasone propionate 50 1 spray intranasal Q12H PRN nasal 08/15/24 08/15/24 History mcg/actuation nasal congestion spray,suspension furosemide 20 mg tablet 20 mg PO .COMPLEX 08/15/24 08/15/24 History guaifenesin 600 mg tablet, 600 mg PO Q12H 08/15/24 08/15/24 History extended release 12 hr (Mucinex) hydralazine 50 mg tablet 50 mg PO Q12H 08/15/24 08/15/24 History hydrocodone 5 mg-acetaminophen 325 1 tablet PO Q4-6H PRN pain (scale 08/15/24 08/15/24 History mg tablet score 4-6) insulin lispro 100 unit/mL 1 sliding scale dose subcut 08/15/24 08/15/24 History subcutaneous solution (Humalog USEASDIRECTD U-100 Insulin) isosorbide mononitrate 30 mg 30 mg PO DAILY 08/15/24 08/15/24 History tablet,extended release 24 hr krill oil 500 mg capsule 1 mg PO DAILY 08/15/24 08/15/24 History loratadine 10 mg tablet 10 mg PO DAILY 08/15/24 08/15/24 History losartan 25 mg tablet 25 mg PO DAILY 08/15/24 08/15/24 History meclizine 25 mg tablet 25 mg PO QID PRN dizziness 08/15/24 08/15/24 History metoprolol succinate 25 mg 25 mg PO DAILY 08/15/24 08/15/24 History tablet,extended release 24 hr montelukast 10 mg tablet 10 mg PO HS 08/15/24 08/15/24 History multivitamin,aa-vqxj-Hj-FA-min 1 tablet PO Q12H 08/15/24 08/15/24 History polyethylene glycol 3350 17 gram 17 g PO DAILY PRN constipation 08/15/24 08/15/24 History oral powder packet (Miralax) potassium chloride 10 mEq 10 meq PO .COMPLEX 08/15/24 08/15/24 History tablet,extended release rosuvastatin 5 mg tablet 5 mg PO HS 08/15/24 08/15/24 History senna-docusate sodium tablet 1 tablet PO DAILY PRN constipation 08/15/24 08/15/24 History Allergies Allergy/AdvReac Type Severity Reaction Status Date / Time adhesive tape Allergy Unknown Verified 08/15/24 08:51 aripiprazole (From Abilify) Allergy Unknown Verified 08/15/24 08:51 carvedilol Allergy Unknown Verified 08/15/24 08:51 latex Allergy Unknown Verified 08/15/24 08:51 Voikhni-OZY-YnA Reductase Allergy Unknown Verified 08/15/24 08:51 Inhibitor Sulfa (Sulfonamide Allergy Unknown Verified 08/15/24 08:51 Antibiotics) sulfasalazine Allergy Hives Verified 08/15/24 08:51 Sulfonylureas Allergy Unknown Verified 08/15/24 08:51 Vital Signs Vital Signs - 24 hr 08/29/24 16:35 08/29/24 16:35 08/29/24 18:00 Temperature Pulse Rate 102 H 102 H 102 H Respiratory Rate 28 H Blood Pressure 104/65 Pulse Oximetry 93 Oxygen Delivery Mechanical Ventilation Fraction of Inspired Oxygen 50 08/29/24 18:00 08/29/24 18:00 08/29/24 18:14 Temperature Pulse Rate 102 H 101 H 102 H Respiratory Rate 31 H 27 H Blood Pressure 104/65 Pulse Oximetry 93 Oxygen Delivery Fraction of Inspired Oxygen 08/29/24 20:00 08/29/24 20:00 08/29/24 20:00 Temperature Pulse Rate 96 Respiratory Rate Blood Pressure Pulse Oximetry Oxygen Delivery Mechanical Ventilation Fraction of Inspired Oxygen 50 50 08/29/24 20:00 08/29/24 20:02 08/29/24 20:04 Temperature 99.6 F Pulse Rate 96 96 97 Respiratory Rate 36 H 29 H 29 H Blood Pressure 100/64 Pulse Oximetry 94 Oxygen Delivery Fraction of Inspired Oxygen 08/29/24 20:08 08/29/24 20:20 08/29/24 22:00 Temperature Pulse Rate 96 99 98 Respiratory Rate 32 H Blood Pressure Pulse Oximetry 94 Oxygen Delivery Mechanical Ventilation Fraction of Inspired Oxygen 50 08/29/24 22:00 08/29/24 22:04 08/29/24 22:52 Temperature Pulse Rate 98 99 100 Respiratory Rate 32 H 33 H Blood Pressure 99/60 L Pulse Oximetry 93 93 Oxygen Delivery Mechanical Ventilation Fraction of Inspired Oxygen 50 08/30/24 00:00 08/30/24 00:00 08/30/24 00:00 Temperature 99 F Pulse Rate 99 99 Respiratory Rate 32 H Blood Pressure 101/62 Pulse Oximetry 93 Oxygen Delivery Mechanical Ventilation Fraction of Inspired Oxygen 50 08/30/24 00:00 08/30/24 00:22 08/30/24 00:22 Temperature Pulse Rate 100 100 Respiratory Rate 34 H 34 H Blood Pressure Pulse Oximetry Oxygen Delivery Fraction of Inspired Oxygen 50 08/30/24 02:00 08/30/24 02:00 08/30/24 02:00 Temperature Pulse Rate 97 97 97 Respiratory Rate 33 H 33 H Blood Pressure 99/67 L Pulse Oximetry 93 Oxygen Delivery Fraction of Inspired Oxygen 08/30/24 02:10 08/30/24 02:14 08/30/24 02:24 Temperature Pulse Rate 97 98 94 Respiratory Rate 33 H 34 H Blood Pressure Pulse Oximetry 93 Oxygen Delivery Mechanical Ventilation Fraction of Inspired Oxygen 50 08/30/24 04:00 08/30/24 04:00 08/30/24 04:00 Temperature Pulse Rate 97 Respiratory Rate 33 H Blood Pressure Pulse Oximetry Oxygen Delivery Mechanical Ventilation Fraction of Inspired Oxygen 50 50 08/30/24 04:00 08/30/24 04:00 08/30/24 05:01 Temperature 99.0 F Pulse Rate 96 96 96 Respiratory Rate 33 H Blood Pressure 96/65 L Pulse Oximetry 93 93 Oxygen Delivery Mechanical Ventilation Fraction of Inspired Oxygen 50 08/30/24 06:00 08/30/24 06:00 08/30/24 06:07 Temperature Pulse Rate 97 97 95 Respiratory Rate 34 H 32 H Blood Pressure 100/68 Pulse Oximetry 93 Oxygen Delivery Fraction of Inspired Oxygen 08/30/24 08:00 08/30/24 08:00 08/30/24 08:00 Temperature 98.4 F Pulse Rate 94 94 Respiratory Rate 30 H 30 H Blood Pressure 95/59 L Pulse Oximetry 95 95 Oxygen Delivery Mechanical Ventilation Fraction of Inspired Oxygen 50 08/30/24 08:00 08/30/24 08:00 08/30/24 08:18 Temperature Pulse Rate 93 92 Respiratory Rate 31 H Blood Pressure Pulse Oximetry Oxygen Delivery Fraction of Inspired Oxygen 50 08/30/24 08:23 08/30/24 08:55 08/30/24 08:55 Temperature 98.1 F Pulse Rate 93 96 Respiratory Rate 32 H Blood Pressure 109/65 Pulse Oximetry 96 95 Oxygen Delivery Mechanical Ventilation Fraction of Inspired Oxygen 50 50 08/30/24 09:05 08/30/24 09:15 08/30/24 09:30 Temperature Pulse Rate 94 93 93 Respiratory Rate Blood Pressure 102/64 101/62 103/64 Pulse Oximetry Oxygen Delivery Fraction of Inspired Oxygen 08/30/24 09:45 08/30/24 10:00 08/30/24 10:00 Temperature Pulse Rate 95 95 95 Respiratory Rate Blood Pressure 99/62 L 98/61 L Pulse Oximetry Oxygen Delivery Fraction of Inspired Oxygen 08/30/24 10:00 08/30/24 10:10 08/30/24 10:15 Temperature Pulse Rate 95 113 H 115 H Respiratory Rate 30 H Blood Pressure 98/61 L 100/60 Pulse Oximetry 96 Oxygen Delivery Fraction of Inspired Oxygen 08/30/24 10:15 08/30/24 10:30 08/30/24 10:32 Temperature Pulse Rate 113 H 120 H 122 H Respiratory Rate 32 H Blood Pressure 89/61 L 92/74 L Pulse Oximetry Oxygen Delivery Fraction of Inspired Oxygen 08/30/24 10:45 08/30/24 10:50 08/30/24 11:00 Temperature Pulse Rate 127 H 135 H 122 H Respiratory Rate Blood Pressure 90/61 L 87/76 L 78/65 L Pulse Oximetry Oxygen Delivery Fraction of Inspired Oxygen 08/30/24 11:00 08/30/24 11:01 08/30/24 11:10 Temperature Pulse Rate 124 H 123 H 123 H Respiratory Rate Blood Pressure 102/74 78/65 L Pulse Oximetry 95 Oxygen Delivery Mechanical Ventilation Fraction of Inspired Oxygen 50 08/30/24 11:10 08/30/24 11:15 08/30/24 11:30 Temperature Pulse Rate 123 H 122 H 124 H Respiratory Rate 28 H Blood Pressure 102/74 100/64 Pulse Oximetry Oxygen Delivery Fraction of Inspired Oxygen 08/30/24 11:45 08/30/24 12:00 08/30/24 12:00 Temperature Pulse Rate 129 H 131 H 138 H Respiratory Rate 30 H Blood Pressure 107/65 94/75 L Pulse Oximetry Oxygen Delivery Fraction of Inspired Oxygen 08/30/24 12:00 08/30/24 12:00 08/30/24 12:00 Temperature Pulse Rate 138 H 132 H Respiratory Rate Blood Pressure 87/64 L Pulse Oximetry 96 Oxygen Delivery Mechanical Ventilation Fraction of Inspired Oxygen 50 08/30/24 12:00 08/30/24 12:00 08/30/24 12:04 Temperature 98.2 F Pulse Rate 138 H Respiratory Rate 30 H Blood Pressure 87/64 L 97/66 L Pulse Oximetry 97 Oxygen Delivery Fraction of Inspired Oxygen 50 08/30/24 12:15 08/30/24 12:19 08/30/24 12:30 Temperature Pulse Rate 135 H 135 H 138 H Respiratory Rate Blood Pressure 82/58 L 98/70 L 95/83 L Pulse Oximetry Oxygen Delivery Fraction of Inspired Oxygen 08/30/24 13:00 08/30/24 13:15 08/30/24 13:24 Temperature 98.2 F Pulse Rate 133 H 127 H 140 H Respiratory Rate 30 H Blood Pressure 100/66 93/63 L 97/70 L Pulse Oximetry 96 Oxygen Delivery Fraction of Inspired Oxygen 08/30/24 13:25 08/30/24 13:25 08/30/24 13:30 Temperature Pulse Rate 143 H 143 H 143 H Respiratory Rate 30 H 30 H Blood Pressure 89/64 L Pulse Oximetry Oxygen Delivery Fraction of Inspired Oxygen 08/30/24 13:40 08/30/24 13:45 08/30/24 14:00 Temperature Pulse Rate 132 H 150 H 132 H Respiratory Rate Blood Pressure 89/55 L 88/66 L Pulse Oximetry Oxygen Delivery Fraction of Inspired Oxygen 08/30/24 14:00 08/30/24 14:00 08/30/24 14:00 Temperature Pulse Rate 132 H 132 H 132 H Respiratory Rate 30 H 30 H Blood Pressure 89/55 L 89/55 L Pulse Oximetry 96 Oxygen Delivery Fraction of Inspired Oxygen 08/30/24 14:31 08/30/24 14:33 08/30/24 14:36 Temperature Pulse Rate 132 H 125 H 100 Respiratory Rate 34 H Blood Pressure Pulse Oximetry 95 Oxygen Delivery Mechanical Ventilation Fraction of Inspired Oxygen 50 08/30/24 15:27 Temperature Pulse Rate 102 H Respiratory Rate Blood Pressure 102/66 Pulse Oximetry Oxygen Delivery Fraction of Inspired Oxygen Exam 2 Narrative: General: Pt is sedated, intubated and on mechanical ventilation, with OG and Dobhoff tubes HEENT: Pupils equal and reactive, sclera is clear, ETT in place Lungs/Chest: Trachea central Coarse BS B/L, bilateral rales, no wheezing, adequate air entry Cardiac: RRR. Normal S1 S2. No murmurs Abdomen: Soft, nontender, nondistended, hypoactive bowel sounds Extremities: Bilateral pitting edema, palpable pedal pulse : Butt in place Neurologic: Currently intubated, on Precedex infusion, does not open her eyes or follow simple commands. Patient does not withdraw to pain Results Labs 08/30/24 05:15 08/30/24 15:21 Labs: Short CBC 08/30/24 Range/Units 05:15 WBC 14.8 H (4.5-10.0) K/mm3 Hgb 8.3 L (12.0-15.0) g/dL Hct 28.0 L (37.0-47.0) % Plt Count 217 (150-375) k/mm3 BMP 08/29/24 08/30/24 08/30/24 18:30 05:15 15:21 Sodium 136 L 137 137 Potassium 4.8 5.1 H 3.6 Chloride 96 L 95 L 93 L Carbon Dioxide 21 L 22 29 BUN 114 H 128 H D 49 H D Creatinine 4.15 H 4.11 H 1.98 H Glucose 414 H 238 H 275 H Calcium 9.0 9.1 8.9 Liver Function 08/30/24 Range/Units 05:15 Total Bilirubin 0.3 (0.2-1.3) mg/dL AST 24 (14-36) U/L ALT 46 H (6-35) U/L Alkaline Phosphatase 107 (38-126) U/L Albumin 3.7 (3.5-5.1) g/dL
[2024-08-30 16:28] LABS: Glucose Point of Care 296 mg/dl (65-105)
--- NOTE | 2024-08-30 16:33 | P.PNGS_ITS ---
Progress Note: A&P Assessment and Plan (1) DVT (deep venous thrombosis): Qualifiers: DVT location: lower extremity Affected thrombotic vein of extremity: tibial Chronicity: acute Laterality: bilateral Qualified Code(s): I82.443 - Acute embolism and thrombosis of tibial vein, bilateral Code(s): I82.409 - Acute embolism and thrombosis of unspecified deep veins of unspecified lower extremity Status: Resolved Assessment and Plan: Repeat venous Doppler shows no DVT. Okay to stop anticoagulation but would continue prophylactic dose of enoxaparin. No need for IVC filter. We will sign off. (2) Acute respiratory failure with hypoxia: Code(s): J96.01 - Acute respiratory failure with hypoxia Status: Acute Subjective Subjective Date/Time Seen: 08/30/24 16:33 Patient reports: other (Remains on ventilator) Review of Systems Review of Systems: ROS unobtainable: Yes unobtainable due to endotracheal tube Objective Data Vital Signs Vital Signs: Vital Signs - 24 hr 08/29/24 16:35 08/29/24 16:35 08/29/24 18:00 Temperature Pulse Rate 102 H 102 H 102 H Respiratory Rate 28 H Blood Pressure 104/65 Pulse Oximetry 93 Oxygen Delivery Mechanical Ventilation Fraction of Inspired Oxygen 50 08/29/24 18:00 08/29/24 18:00 08/29/24 18:14 Temperature Pulse Rate 102 H 101 H 102 H Respiratory Rate 31 H 27 H Blood Pressure 104/65 Pulse Oximetry 93 Oxygen Delivery Fraction of Inspired Oxygen 08/29/24 20:00 08/29/24 20:00 08/29/24 20:00 Temperature Pulse Rate 96 Respiratory Rate Blood Pressure Pulse Oximetry Oxygen Delivery Mechanical Ventilation Fraction of Inspired Oxygen 50 50 08/29/24 20:00 08/29/24 20:02 08/29/24 20:04 Temperature 37.6 C Pulse Rate 96 96 97 Respiratory Rate 36 H 29 H 29 H Blood Pressure 100/64 Pulse Oximetry 94 Oxygen Delivery Fraction of Inspired Oxygen 08/29/24 20:08 08/29/24 20:20 08/29/24 22:00 Temperature Pulse Rate 96 99 98 Respiratory Rate 32 H Blood Pressure Pulse Oximetry 94 Oxygen Delivery Mechanical Ventilation Fraction of Inspired Oxygen 50 08/29/24 22:00 08/29/24 22:04 08/29/24 22:52 Temperature Pulse Rate 98 99 100 Respiratory Rate 32 H 33 H Blood Pressure 99/60 L Pulse Oximetry 93 93 Oxygen Delivery Mechanical Ventilation Fraction of Inspired Oxygen 50 08/30/24 00:00 08/30/24 00:00 08/30/24 00:00 Temperature 37.2 C Pulse Rate 99 99 Respiratory Rate 32 H Blood Pressure 101/62 Pulse Oximetry 93 Oxygen Delivery Mechanical Ventilation Fraction of Inspired Oxygen 50 08/30/24 00:00 08/30/24 00:22 08/30/24 00:22 Temperature Pulse Rate 100 100 Respiratory Rate 34 H 34 H Blood Pressure Pulse Oximetry Oxygen Delivery Fraction of Inspired Oxygen 50 08/30/24 02:00 08/30/24 02:00 08/30/24 02:00 Temperature Pulse Rate 97 97 97 Respiratory Rate 33 H 33 H Blood Pressure 99/67 L Pulse Oximetry 93 Oxygen Delivery Fraction of Inspired Oxygen 08/30/24 02:10 08/30/24 02:14 08/30/24 02:24 Temperature Pulse Rate 97 98 94 Respiratory Rate 33 H 34 H Blood Pressure Pulse Oximetry 93 Oxygen Delivery Mechanical Ventilation Fraction of Inspired Oxygen 50 08/30/24 04:00 08/30/24 04:00 08/30/24 04:00 Temperature Pulse Rate 97 Respiratory Rate 33 H Blood Pressure Pulse Oximetry Oxygen Delivery Mechanical Ventilation Fraction of Inspired Oxygen 50 50 08/30/24 04:00 08/30/24 04:00 08/30/24 05:01 Temperature 37.2 C Pulse Rate 96 96 96 Respiratory Rate 33 H Blood Pressure 96/65 L Pulse Oximetry 93 93 Oxygen Delivery Mechanical Ventilation Fraction of Inspired Oxygen 50 08/30/24 06:00 08/30/24 06:00 08/30/24 06:07 Temperature Pulse Rate 97 97 95 Respiratory Rate 34 H 32 H Blood Pressure 100/68 Pulse Oximetry 93 Oxygen Delivery Fraction of Inspired Oxygen 08/30/24 08:00 08/30/24 08:00 08/30/24 08:00 Temperature 36.9 C Pulse Rate 94 94 Respiratory Rate 30 H 30 H Blood Pressure 95/59 L Pulse Oximetry 95 95 Oxygen Delivery Mechanical Ventilation Fraction of Inspired Oxygen 50 08/30/24 08:00 08/30/24 08:00 08/30/24 08:18 Temperature Pulse Rate 93 92 Respiratory Rate 31 H Blood Pressure Pulse Oximetry Oxygen Delivery Fraction of Inspired Oxygen 50 08/30/24 08:23 08/30/24 08:55 08/30/24 08:55 Temperature 36.7 C Pulse Rate 93 96 Respiratory Rate 32 H Blood Pressure 109/65 Pulse Oximetry 96 95 Oxygen Delivery Mechanical Ventilation Fraction of Inspired Oxygen 50 50 08/30/24 09:05 08/30/24 09:15 08/30/24 09:30 Temperature Pulse Rate 94 93 93 Respiratory Rate Blood Pressure 102/64 101/62 103/64 Pulse Oximetry Oxygen Delivery Fraction of Inspired Oxygen 08/30/24 09:45 08/30/24 10:00 08/30/24 10:00 Temperature Pulse Rate 95 95 95 Respiratory Rate Blood Pressure 99/62 L 98/61 L Pulse Oximetry Oxygen Delivery Fraction of Inspired Oxygen 08/30/24 10:00 08/30/24 10:10 08/30/24 10:15 Temperature Pulse Rate 95 113 H 115 H Respiratory Rate 30 H Blood Pressure 98/61 L 100/60 Pulse Oximetry 96 Oxygen Delivery Fraction of Inspired Oxygen 08/30/24 10:15 08/30/24 10:30 08/30/24 10:32 Temperature Pulse Rate 113 H 120 H 122 H Respiratory Rate 32 H Blood Pressure 89/61 L 92/74 L Pulse Oximetry Oxygen Delivery Fraction of Inspired Oxygen 08/30/24 10:45 08/30/24 10:50 08/30/24 11:00 Temperature Pulse Rate 127 H 135 H 122 H Respiratory Rate Blood Pressure 90/61 L 87/76 L 78/65 L Pulse Oximetry Oxygen Delivery Fraction of Inspired Oxygen 08/30/24 11:00 08/30/24 11:01 08/30/24 11:10 Temperature Pulse Rate 124 H 123 H 123 H Respiratory Rate Blood Pressure 102/74 78/65 L Pulse Oximetry 95 Oxygen Delivery Mechanical Ventilation Fraction of Inspired Oxygen 50 08/30/24 11:10 08/30/24 11:15 08/30/24 11:30 Temperature Pulse Rate 123 H 122 H 124 H Respiratory Rate 28 H Blood Pressure 102/74 100/64 Pulse Oximetry Oxygen Delivery Fraction of Inspired Oxygen 08/30/24 11:45 08/30/24 12:00 08/30/24 12:00 Temperature Pulse Rate 129 H 131 H 138 H Respiratory Rate 30 H Blood Pressure 107/65 94/75 L Pulse Oximetry Oxygen Delivery Fraction of Inspired Oxygen 08/30/24 12:00 08/30/24 12:00 08/30/24 12:00 Temperature Pulse Rate 138 H 132 H Respiratory Rate Blood Pressure 87/64 L Pulse Oximetry 96 Oxygen Delivery Mechanical Ventilation Fraction of Inspired Oxygen 50 08/30/24 12:00 08/30/24 12:00 08/30/24 12:04 Temperature 36.8 C Pulse Rate 138 H Respiratory Rate 30 H Blood Pressure 87/64 L 97/66 L Pulse Oximetry 97 Oxygen Delivery Fraction of Inspired Oxygen 50 08/30/24 12:15 08/30/24 12:19 08/30/24 12:30 Temperature Pulse Rate 135 H 135 H 138 H Respiratory Rate Blood Pressure 82/58 L 98/70 L 95/83 L Pulse Oximetry Oxygen Delivery Fraction of Inspired Oxygen 08/30/24 13:00 08/30/24 13:15 08/30/24 13:24 Temperature 36.8 C Pulse Rate 133 H 127 H 140 H Respiratory Rate 30 H Blood Pressure 100/66 93/63 L 97/70 L Pulse Oximetry 96 Oxygen Delivery Fraction of Inspired Oxygen 08/30/24 13:25 08/30/24 13:25 08/30/24 13:30 Temperature Pulse Rate 143 H 143 H 143 H Respiratory Rate 30 H 30 H Blood Pressure 89/64 L Pulse Oximetry Oxygen Delivery Fraction of Inspired Oxygen 08/30/24 13:40 08/30/24 13:45 08/30/24 14:00 Temperature Pulse Rate 132 H 150 H 132 H Respiratory Rate Blood Pressure 89/55 L 88/66 L Pulse Oximetry Oxygen Delivery Fraction of Inspired Oxygen 08/30/24 14:00 08/30/24 14:00 08/30/24 14:00 Temperature Pulse Rate 132 H 132 H 132 H Respiratory Rate 30 H 30 H Blood Pressure 89/55 L 89/55 L Pulse Oximetry 96 Oxygen Delivery Fraction of Inspired Oxygen 08/30/24 14:31 08/30/24 14:33 08/30/24 14:36 Temperature Pulse Rate 132 H 125 H 100 Respiratory Rate 34 H Blood Pressure Pulse Oximetry 95 Oxygen Delivery Mechanical Ventilation Fraction of Inspired Oxygen 50 08/30/24 15:27 Temperature Pulse Rate 102 H Respiratory Rate Blood Pressure 102/66 Pulse Oximetry Oxygen Delivery Fraction of Inspired Oxygen Intake/Output Intake/Output: Intake & Output 08/27/24 08/28/24 08/29/24 08/30/24 23:59 23:59 23:59 23:59 Intake Total 2377.4 2304.6 1939.7 1039.2 Output Total 3102 3841 25 2300 Balance -724.6 -1536.4 1914.7 -1260.8 Meds/Results Medications: Active Medications Generic Name Dose Route Start Last Admin Trade Name Freq PRN Reason Stop Dose Admin Acetaminophen 650 mg 08/18/24 21:48 08/28/24 01:10 Acetaminophen Elixir 325 Mg/10.15 Ml Udc PO 650 mg Q4H PRN Administration Mild Pain (1-3) or Fever Acetylcysteine 200 mg 08/28/24 08:00 08/30/24 14:29 Acetylcysteine 20% Inhal Soln 800 Mg/4 Ml Vial INHALATION 200 mg Q6HRT TEMI Administration Dextrose 12.5 gm 08/29/24 15:45 Dextrose 50% 25 Gm/50 Ml Syringe IV PUSH PRN PRN Hypoglycemia Protocol Dornase Oliver 2.5 mg 08/28/24 10:05 08/30/24 08:17 Dornase Oliver Inh Soln 1 Mg/Ml 2.5 Ml Amp INHALATION 08/30/24 20:01 2.5 mg Q12HRT TEMI Administration Epoetin Oliver-epbx 10,000 units 08/30/24 19:35 08/30/24 09:38 Epoetin Oliver-Epbx 10,000 Units/Ml Vial IV PUSH 08/30/24 19:36 10,000 units ONCE ONE Administration Glucagon 1 mg 08/29/24 15:45 Glucagon For Inj 1 Mg Vial IM PRN PRN Hypoglycemia Protocol Glucose 15 gm 08/29/24 15:45 Glucose Oral Gel 15 Gm Of Glucse In 37.5 Gm Tube PO PRN PRN Hypoglycemia Protocol Heparin Sodium (Porcine) 5,500 units 08/18/24 15:05 08/18/24 23:23 Heparin Sodium 5,000 Units/Ml Vial IV PUSH 5,500 units PRN PRN Administration aPTT less than 55 seconds Heparin Sodium (Porcine) 3,000 units 08/18/24 15:05 08/23/24 10:58 Heparin Sodium 5,000 Units/Ml Vial IV PUSH 3,000 units PRN PRN Administration aPTT 55 - 70 seconds Heparin Sodium (Porcine) 5,000 units 08/29/24 07:45 08/30/24 13:45 Heparin Sodium 5,000 Units/Ml Vial SUB-Q 5,000 units Q8HR TEMI Administration Heparin Sodium/Dextrose 25,000 units in 250 mls @ 23 mls/hr 08/18/24 15:05 08/28/24 22:25 Heparin Sodium/D5w 100 Units/Ml IV CONT Infused .[id number] TEMI Titration Protocol 2,300 UNITS/HR Albumin Human 50 mls @ 999 mls/hr 08/21/24 06:28 Albutein IVPB 09/20/24 06:27 Q10M PRN HYPOTENSION Meropenem 500 mg in 100 mls @ 200 mls/hr 08/29/24 08:00 08/30/24 14:25 IVPB Infused Q24H TEMI Infusion Dexmedetomidine HCl 400 mcg in 100 mls @ 8.46 mls/hr 08/29/24 14:30 08/30/24 14:00 Precedex 400 Mcg/100 Ml IV CONT 0.4 mcg/kg/hr .[id number] TEMI 8.46 mls/hr Titration Protocol 0.4 MCG/KG/HR Insulin Human Regular 100 100 mls @ 3 mls/hr 08/29/24 16:00 08/30/24 16:22 units/ Sodium Chloride IV CONT 3 units/hr .Q24H TEMI 3 mls/hr Titration Protocol 3 UNITS/HR Dextrose 1,000 mls @ 100 mls/hr 08/29/24 15:45 Dextrose 5% 1,000 Ml IVPB PRN PRN Hypoglycemia Protocol Vancomycin HCl 500 mg in 100 mls @ 100 mls/hr 08/30/24 18:00 Vancomycin 500 Mg/Ns 100 Ml IVPB 08/30/24 18:59 ONCE ONE Norepinephrine Bitartrate 8 mg in 250 mls @ 7.5 mls/hr 08/30/24 11:10 08/30/24 15:27 Levophed 8 Mg/D5w 250 Ml IV CONT 4 mcg/min .Q24H TEMI 7.5 mls/hr Titration Protocol 4 MCG/MIN Amiodarone HCl/Dextrose 360 mg in 200 mls @ 33.333 mls/hr 08/30/24 12:58 08/30/24 13:45 Nexterone 360 Mg/D5w 200 Ml IV CONT 08/30/24 18:57 1 mg/min .Q6H ONE 33.33 mls/hr Administration Protocol 1 MG/MIN Amiodarone HCl/Dextrose 360 mg in 200 mls @ 16.667 mls/hr 08/30/24 18:58 Nexterone 360 Mg/D5w 200 Ml IV CONT 08/31/24 18:57 .Q12H TEMI Protocol 0.5 MG/MIN Insulin Aspart 4 - 8 units 08/20/24 21:05 08/29/24 12:41 Insulin Aspart (*Bkc) 100 Units/Ml SUB-Q 8 units Q4HR TEMI Administration Protocol Insulin Glargine 50 units 08/29/24 09:00 08/29/24 08:22 Insulin Glargine (*Bkc) 100 Units/Ml SUB-Q 50 units Q12H TEMI Administration Ipratropium [place] 0.5 mg 08/29/24 12:22 08/29/24 12:20 Ipratropium Br 0.02% Inh Soln 0.5 Mg/2.5 Ml Vial INHALATION 0.5 mg Q6HRT PRN Administration Wheezing Levalbuterol HCl 1.25 mg 08/29/24 14:00 08/30/24 14:29 Levalbuterol Neb 1.25 Mg/3 Ml INHALATION 1.25 mg Q6HRT TEMI Administration Levalbuterol HCl 1.25 mg 08/29/24 12:22 08/29/24 12:20 Levalbuterol Neb 1.25 Mg/3 Ml INHALATION 1.25 mg Q6HRT PRN Administration Wheezing Metoclopramide HCl 10 mg 08/23/24 08:00 08/30/24 13:45 Metoclopramide Hcl 10 Mg/10 Ml Soln Udc PO 10 mg Q6H TEMI Administration Multi-Ingred Cream/Lotion/Oil/Oint 1 applic 08/18/24 09:00 08/30/24 09:00 Mineral Oil/White Petrolatum Ointment EACH EYE 1 applic Q12HR TEMI Administration Pantoprazole Sodium 40 mg 08/28/24 21:00 08/30/24 13:51 Pantoprazole Sodium Iv 40 Mg Vial IV PUSH 40 mg Q12HR TEMI Administration Polyethylene Glycol 17 gm 08/15/24 22:20 08/28/24 08:19 Polyethylene Glycol 3350 17 Gm Powd.Pack PO 17 gm DAILY PRN Administration constipation Sodium Chloride 10 ml 08/19/24 22:00 08/30/24 13:46 Central Line Flush IV PUSH 10 ml Q8HR TEMI Administration Sodium Chloride 20 ml 08/19/24 18:43 Central Line Flush IV PUSH PRN PRN after blood draws Vancomycin HCl 1 each 08/30/24 06:14 Vancomycin For Hemodialysis IVPB PRN PRN Vancomycin Protocol Radiology Results: ITS Impressions Chest CTA 08/15/24 11:11 IMPRESSION: No pulmonary embolus. No thoracic aortic dissection. Right upper lobe infiltrate with patchy bilateral airspace disease, likely inflammatory/congestive rather than infectious. Small bilateral pleural effusions with adjacent atelectasis. Renal Ultrasound 08/19/24 14:10 IMPRESSION: No hydronephrosis or renal calculi. Findings suggesting medical renal disease. Findings within the upper pole of the right kidney consistent with patient's history, as detailed above. Chest/Abdomen/Pelvis CT 08/23/24 09:58 IMPRESSION: CHEST: 1. Bilateral pneumonia which is slightly decreased compared to previous study. Bilateral pleural effusion more on the right side. ABDOMEN/PELVIS: 1. No evidence of appendicitis, diverticulitis or intestinal obstruction. 2. Bilateral tiny kidney stones. 3. Hepatomegaly. 4. No evidence of ileus seen. ADDENDUM: 08/23/24 1042 Possibility of mass in the right kidney upper pole cannot be excluded. Abdomen X-Ray 08/23/24 16:53 IMPRESSION: 1. Dobbhoff type nasoenteric feeding tube with distal tip projecting over the gastric fundus. Head CT 08/26/24 09:32 Impression: No intracranial hemorrhage, mass, or acute infarct. Atrophy and chronic white matter changes, as above. Chest X-Ray 08/30/24 06:58 Impression: Probable severe pulmonary edema pattern with minimal pleural effusions. Correlate for pneumonia or ARDS. Support tubes, as above. Venous Doppler Study 08/30/24 15:18 IMPRESSION: Negative bilateral lower extremity venous US. No deep vein thrombosis. Labs Labs: Laboratory Results - last 24 hr 08/29/24 08/29/24 08/29/24 16:27 18:13 18:30 WBC RBC Hgb Hct MCV MCH MCHC RDW Plt Count MPV Immature Gran % (Auto) Neut % (Auto) Lymph % (Auto) [place] % (Auto) Eos % (Auto) Baso % (Auto) Lymph # (Auto) [place] # (Auto) Eos # (Auto) Baso # (Auto) Abs Immat Gran (auto) Absolute Neuts (auto) Absolute Nucleated RBC Band Neutrophils % Nucleated RBC % Platelet Estimate Hypochromasia Anisocytosis Microcytosis Schistocytes Puncture Site ABG pH ABG pCO2 ABG pO2 ABG PO2/FiO2 Ratio ABG HCO3 ABG O2 Saturation ABG O2 Content ABG Base Excess A-a Gradient Oxyhemoglobin Carboxyhemoglobin Methemoglobin Reduced Hemoglobin Total Hemoglobin O2 Delivery Device O2 Liters/Min Minute Volume Vent Rate Vent Mode FiO2 Tidal Volume PEEP Peak Inspir Pressure Pressure Support Sodium 136 L Potassium 4.8 Chloride 96 L Carbon Dioxide 21 L Anion Gap 19 H BUN 114 H Creatinine 4.15 H Estim Creat Clear Calc 11 Estimated GFR 10 L Glucose 414 H POC Capillary Glucose 474 H 428 H Calcium 9.0 Phosphorus Magnesium Total Bilirubin AST ALT Alkaline Phosphatase Total Protein Albumin Vancomycin Trough 08/29/24 08/29/24 08/29/24 19:05 19:58 21:12 WBC RBC Hgb Hct MCV MCH MCHC RDW Plt Count MPV Immature Gran % (Auto) Neut % (Auto) Lymph % (Auto) [place] % (Auto) Eos % (Auto) Baso % (Auto) Lymph # (Auto) [place] # (Auto) Eos # (Auto) Baso # (Auto) Abs Immat Gran (auto) Absolute Neuts (auto) Absolute Nucleated RBC Band Neutrophils % Nucleated RBC % Platelet Estimate Hypochromasia Anisocytosis Microcytosis Schistocytes Puncture Site ABG pH ABG pCO2 ABG pO2 ABG PO2/FiO2 Ratio ABG HCO3 ABG O2 Saturation ABG O2 Content ABG Base Excess A-a Gradient Oxyhemoglobin Carboxyhemoglobin Methemoglobin Reduced Hemoglobin Total Hemoglobin O2 Delivery Device O2 Liters/Min Minute Volume Vent Rate Vent Mode FiO2 Tidal Volume PEEP Peak Inspir Pressure Pressure Support Sodium Potassium Chloride Carbon Dioxide Anion Gap BUN Creatinine Estim Creat Clear Calc Estimated GFR Glucose POC Capillary Glucose 395 H 356 H 307 H Calcium Phosphorus Magnesium Total Bilirubin AST ALT Alkaline Phosphatase Total Protein Albumin Vancomycin Trough 08/29/24 08/29/24 08/30/24 22:03 22:59 00:07 WBC RBC Hgb Hct MCV MCH MCHC RDW Plt Count MPV Immature Gran % (Auto) Neut % (Auto) Lymph % (Auto) [place] % (Auto) Eos % (Auto) Baso % (Auto) Lymph # (Auto) [place] # (Auto) Eos # (Auto) Baso # (Auto) Abs Immat Gran (auto) Absolute Neuts (auto) Absolute Nucleated RBC Band Neutrophils % Nucleated RBC % Platelet Estimate Hypochromasia Anisocytosis Microcytosis Schistocytes Puncture Site ABG pH ABG pCO2 ABG pO2 ABG PO2/FiO2 Ratio ABG HCO3 ABG O2 Saturation ABG O2 Content ABG Base Excess A-a Gradient Oxyhemoglobin Carboxyhemoglobin Methemoglobin Reduced Hemoglobin Total Hemoglobin O2 Delivery Device O2 Liters/Min Minute Volume Vent Rate Vent Mode FiO2 Tidal Volume PEEP Peak Inspir Pressure Pressure Support Sodium Potassium Chloride Carbon Dioxide Anion Gap BUN Creatinine Estim Creat Clear Calc Estimated GFR Glucose POC Capillary Glucose 285 H 284 H 233 H Calcium Phosphorus Magnesium Total Bilirubin AST ALT Alkaline Phosphatase Total Protein Albumin Vancomycin Trough 08/30/24 08/30/24 08/30/24 01:02 02:03 03:03 WBC RBC Hgb Hct MCV MCH MCHC RDW Plt Count MPV Immature Gran % (Auto) Neut % (Auto) Lymph % (Auto) [place] % (Auto) Eos % (Auto) Baso % (Auto) Lymph # (Auto) [place] # (Auto) Eos # (Auto) Baso # (Auto) Abs Immat Gran (auto) Absolute Neuts (auto) Absolute Nucleated RBC Band Neutrophils % Nucleated RBC % Platelet Estimate Hypochromasia Anisocytosis Microcytosis Schistocytes Puncture Site ABG pH ABG pCO2 ABG pO2 ABG PO2/FiO2 Ratio ABG HCO3 ABG O2 Saturation ABG O2 Content ABG Base Excess A-a Gradient Oxyhemoglobin Carboxyhemoglobin Methemoglobin Reduced Hemoglobin Total Hemoglobin O2 Delivery Device O2 Liters/Min Minute Volume Vent Rate Vent Mode FiO2 Tidal Volume PEEP Peak Inspir Pressure Pressure Support Sodium Potassium Chloride Carbon Dioxide Anion Gap BUN Creatinine Estim Creat Clear Calc Estimated GFR Glucose POC Capillary Glucose 176 H 178 H 178 H Calcium Phosphorus Magnesium Total Bilirubin AST ALT Alkaline Phosphatase Total Protein Albumin Vancomycin Trough 08/30/24 08/30/24 08/30/24 04:03 04:46 05:06 WBC RBC Hgb Hct MCV MCH MCHC RDW Plt Count MPV Immature Gran % (Auto) Neut % (Auto) Lymph % (Auto) [place] % (Auto) Eos % (Auto) Baso % (Auto) Lymph # (Auto) [place] # (Auto) Eos # (Auto) Baso # (Auto) Abs Immat Gran (auto) Absolute Neuts (auto) Absolute Nucleated RBC Band Neutrophils % Nucleated RBC % Platelet Estimate Hypochromasia Anisocytosis Microcytosis Schistocytes Puncture Site Right radial ABG pH 7.413 ABG pCO2 34.2 L ABG pO2 68.5 L ABG PO2/FiO2 Ratio 1.37 ABG HCO3 21.3 L ABG O2 Saturation 94.1 L ABG O2 Content 11.9 L ABG Base Excess -2.8 A-a Gradient 249.5 Oxyhemoglobin 92.3 Carboxyhemoglobin 0.2 Methemoglobin 0.2 Reduced Hemoglobin 7.3 H Total Hemoglobin 9.1 L O2 Delivery Device Ventilator O2 Liters/Min Not Reportable Minute Volume Not Reportable Vent Rate 18 Vent Mode Cmv FiO2 50 Tidal Volume 320 PEEP 8 Peak Inspir Pressure Not Reportable Pressure Support Not Reportable Sodium Potassium Chloride Carbon Dioxide Anion Gap BUN Creatinine Estim Creat Clear Calc Estimated GFR Glucose POC Capillary Glucose 214 H 224 H Calcium Phosphorus Magnesium Total Bilirubin AST ALT Alkaline Phosphatase Total Protein Albumin Vancomycin Trough 08/30/24 08/30/24 08/30/24 05:15 06:06 07:04 WBC 14.8 H RBC 3.27 L Hgb 8.3 L Hct 28.0 L MCV 85.6 MCH 25.4 L MCHC 29.6 L RDW 19.0 H Plt Count 217 MPV 11.7 H Immature Gran % (Auto) 5.0 H Neut % (Auto) 78.6 H Lymph % (Auto) 7.7 L [place] % (Auto) 7.7 Eos % (Auto) 0.5 Baso % (Auto) 0.5 Lymph # (Auto) 1.13 [place] # (Auto) 1.1 H Eos # (Auto) 0.1 Baso # (Auto) 0.1 Abs Immat Gran (auto) 0.74 H Absolute Neuts (auto) 11.6 H Absolute Nucleated RBC 0.380 H Band Neutrophils % Not Reportable Nucleated RBC % 2.6 H Platelet Estimate Adequate Hypochromasia 1+ Anisocytosis 1+ Microcytosis 1+ Schistocytes None seen Puncture Site ABG pH ABG pCO2 ABG pO2 ABG PO2/FiO2 Ratio ABG HCO3 ABG O2 Saturation ABG O2 Content ABG Base Excess A-a Gradient Oxyhemoglobin Carboxyhemoglobin Methemoglobin Reduced Hemoglobin Total Hemoglobin O2 Delivery Device O2 Liters/Min Minute Volume Vent Rate Vent Mode FiO2 Tidal Volume PEEP Peak Inspir Pressure Pressure Support Sodium 137 Potassium 5.1 H Chloride 95 L Carbon Dioxide 22 Anion Gap 20 H BUN 128 H D Creatinine 4.11 H Estim Creat Clear Calc 11 Estimated GFR 10 L Glucose 238 H POC Capillary Glucose 255 H 260 H Calcium 9.1 Phosphorus 5.5 H Magnesium 3.1 H Total Bilirubin 0.3 AST 24 ALT 46 H Alkaline Phosphatase 107 Total Protein 7.0 Albumin 3.7 Vancomycin Trough 21.2 H 08/30/24 08/30/24 08/30/24 07:56 08:57 10:04 WBC RBC Hgb Hct MCV MCH MCHC RDW Plt Count MPV Immature Gran % (Auto) Neut % (Auto) Lymph % (Auto) [place] % (Auto) Eos % (Auto) Baso % (Auto) Lymph # (Auto) [place] # (Auto) Eos # (Auto) Baso # (Auto) Abs Immat Gran (auto) Absolute Neuts (auto) Absolute Nucleated RBC Band Neutrophils % Nucleated RBC % Platelet Estimate Hypochromasia Anisocytosis Microcytosis Schistocytes Puncture Site ABG pH ABG pCO2 ABG pO2 ABG PO2/FiO2 Ratio ABG HCO3 ABG O2 Saturation ABG O2 Content ABG Base Excess A-a Gradient Oxyhemoglobin Carboxyhemoglobin Methemoglobin Reduced Hemoglobin Total Hemoglobin O2 Delivery Device O2 Liters/Min Minute Volume Vent Rate Vent Mode FiO2 Tidal Volume PEEP Peak Inspir Pressure Pressure Support Sodium Potassium Chloride Carbon Dioxide Anion Gap BUN Creatinine Estim Creat Clear Calc Estimated GFR Glucose POC Capillary Glucose 237 H 219 H 150 H Calcium Phosphorus Magnesium Total Bilirubin AST ALT Alkaline Phosphatase Total Protein Albumin Vancomycin Trough 08/30/24 08/30/24 08/30/24 11:14 12:23 13:22 WBC RBC Hgb Hct MCV MCH MCHC RDW Plt Count MPV Immature Gran % (Auto) Neut % (Auto) Lymph % (Auto) [place] % (Auto) Eos % (Auto) Baso % (Auto) Lymph # (Auto) [place] # (Auto) Eos # (Auto) Baso # (Auto) Abs Immat Gran (auto) Absolute Neuts (auto) Absolute Nucleated RBC Band Neutrophils % Nucleated RBC % Platelet Estimate Hypochromasia Anisocytosis Microcytosis Schistocytes Puncture Site ABG pH ABG pCO2 ABG pO2 ABG PO2/FiO2 Ratio ABG HCO3 ABG O2 Saturation ABG O2 Content ABG Base Excess A-a Gradient Oxyhemoglobin Carboxyhemoglobin Methemoglobin Reduced Hemoglobin Total Hemoglobin O2 Delivery Device O2 Liters/Min Minute Volume Vent Rate Vent Mode FiO2 Tidal Volume PEEP Peak Inspir Pressure Pressure Support Sodium Potassium Chloride Carbon Dioxide Anion Gap BUN Creatinine Estim Creat Clear Calc Estimated GFR Glucose POC Capillary Glucose 136 H 143 H 156 H Calcium Phosphorus Magnesium Total Bilirubin AST ALT Alkaline Phosphatase Total Protein Albumin Vancomycin Trough 08/30/24 08/30/24 08/30/24 14:00 15:20 15:21 WBC RBC Hgb Hct MCV MCH MCHC RDW Plt Count MPV Immature Gran % (Auto) Neut % (Auto) Lymph % (Auto) [place] % (Auto) Eos % (Auto) Baso % (Auto) Lymph # (Auto) [place] # (Auto) Eos # (Auto) Baso # (Auto) Abs Immat Gran (auto) Absolute Neuts (auto) Absolute Nucleated RBC Band Neutrophils % Nucleated RBC % Platelet Estimate Hypochromasia Anisocytosis Microcytosis Schistocytes Puncture Site ABG pH ABG pCO2 ABG pO2 ABG PO2/FiO2 Ratio ABG HCO3 ABG O2 Saturation ABG O2 Content ABG Base Excess A-a Gradient Oxyhemoglobin Carboxyhemoglobin Methemoglobin Reduced Hemoglobin Total Hemoglobin O2 Delivery Device O2 Liters/Min Minute Volume Vent Rate Vent Mode FiO2 Tidal Volume PEEP Peak Inspir Pressure Pressure Support Sodium 137 Potassium 3.6 Chloride 93 L Carbon Dioxide 29 Anion Gap 15 H BUN 49 H D Creatinine 1.98 H Estim Creat Clear Calc 22 Estimated GFR 24 L Glucose 275 H POC Capillary Glucose 233 H 273 H Calcium 8.9 Phosphorus 2.9 Magnesium 2.2 Total Bilirubin AST ALT Alkaline Phosphatase Total Protein Albumin Vancomycin Trough 08/30/24 16:14 WBC RBC Hgb Hct MCV MCH MCHC RDW Plt Count MPV Immature Gran % (Auto) Neut % (Auto) Lymph % (Auto) [place] % (Auto) Eos % (Auto) Baso % (Auto) Lymph # (Auto) [place] # (Auto) Eos # (Auto) Baso # (Auto) Abs Immat Gran (auto) Absolute Neuts (auto) Absolute Nucleated RBC Band Neutrophils % Nucleated RBC % Platelet Estimate Hypochromasia Anisocytosis Microcytosis Schistocytes Puncture Site ABG pH ABG pCO2 ABG pO2 ABG PO2/FiO2 Ratio ABG HCO3 ABG O2 Saturation ABG O2 Content ABG Base Excess A-a Gradient Oxyhemoglobin Carboxyhemoglobin Methemoglobin Reduced Hemoglobin Total Hemoglobin O2 Delivery Device O2 Liters/Min Minute Volume Vent Rate Vent Mode FiO2 Tidal Volume PEEP Peak Inspir Pressure Pressure Support Sodium Potassium Chloride Carbon Dioxide Anion Gap BUN Creatinine Estim Creat Clear Calc Estimated GFR Glucose POC Capillary Glucose 296 H Calcium Phosphorus Magnesium Total Bilirubin AST ALT Alkaline Phosphatase Total Protein Albumin Vancomycin Trough
[2024-08-30 17:28] LABS: Glucose Point of Care 280 mg/dl (65-105)
[2024-08-30 18:30] LABS: Glucose Point of Care 276 mg/dl (65-105)
[2024-08-30] MEDS: VANCOMYCIN 500 MG/NS 100 ML 500 MG/100 ML BAG 100 MG IVPB (18:31)
[2024-08-30] MEDS: AMIODARONE 360 MG/D5W 200 ML 360 MG/200 ML BAG 16.67 MG IV CONT (18:34)
[2024-08-30 19:44] LABS: Glucose Point of Care 239 mg/dl (65-105)
[2024-08-30] MEDS: IPRATROPIUM BR 0.02% INH SOLN 0.5 MG/2.5 ML VIAL (20:31)
[2024-08-30 20:46] LABS: Glucose Point of Care 250 mg/dl (65-105)
[2024-08-30 21:40] LABS: Glucose Point of Care 273 mg/dl (65-105)
[2024-08-30 22:45] LABS: Glucose Point of Care 234 mg/dl (65-105)
[2024-08-30 23:41] LABS: Glucose Point of Care 247 mg/dl (65-105)
[2024-08-31] VITALS (48 sets, daily range): BP systolic 85–123; BP diastolic 51–86; PULSE 73–100; RESP 25–35; TEMP 36.8–37.8; O2SAT 85–100
[2024-08-31] MEDS: dexmedeTOMIDine 400 MCG/100 ML 400 MCG/100 ML BAG 8.46 MCG IV CONT (00:28)
[2024-08-31 00:30] LABS: Glucose Point of Care 221 mg/dl (65-105)
[2024-08-31 01:41] LABS: Glucose Point of Care 207 mg/dl (65-105)
[2024-08-31] MEDS: LEVALBUTEROL NEB 1.25 MG/3 ML INHALATION ×4 (02:14→19:52)
[2024-08-31] MEDS: ACETYLCYSTEINE 20% INHAL SOLN 800 MG/4 ML VIAL 200 MG INHALATION ×4 (02:15→19:52)
[2024-08-31 02:28] LABS: Glucose Point of Care 162 mg/dl (65-105)
[2024-08-31 03:34] LABS: Glucose Point of Care 184 mg/dl (65-105)
[2024-08-31] MEDS: CENTRAL LINE FLUSH 10 ML IV PUSH ×3 (04:49→20:09)
[2024-08-31 04:52] LABS: Glucose Point of Care 178 mg/dl (65-105)
[2024-08-31 04:56] LABS: Hematocrit 28.1 % (37.0-47.0); Hemoglobin 8.6 g/dL (12.0-15.0); Mean Corpuscular HGB Conc 30.6 g/dl (32-36); Mean Corpuscular Hemoglobin 26.1 pg (26-34); Mean Corpuscular Volume 85.4 fl (80-100); Mean Platelet Volume 10.9 fl (7.4-10.4); Platelet Count Result 193 k/mm3 (150-375); Red Blood Count 3.29 M/mm3 (4.2-5.4); Red Cell Distribution Width 19.5 % (11.5-14.5); White Blood Count 16.4 K/mm3 (4.5-10.0)
[2024-08-31 05:19] LABS: Alanine Aminotransferase 52 U/L (6-35); Albumin Level 3.8 g/dL (3.5-5.1); Alkaline Phosphatase 97 U/L (38-126); Anion Gap 16 mmol/L (4-12); Aspartate Amino Transferase 42 U/L (14-36); Bilirubin,Total 0.3 mg/dL (0.2-1.3); Blood Urea Nitrogen 69 mg/dL (7-17); Calcium 8.9 mg/dL (8.4-10.2); Carbon Dioxide 29 mmol/L (22-30); Chloride 92 mmol/L (98-107); Estimated CRCL calculation 14 ml/min; Estimated Glomerular Filt Rate 14; Glucose 174 mg/dL (65-110); Magnesium 2.7 mg/dL (1.6-2.3); Phosphorus 3.9 mg/dL (2.5-4.5); Potassium 3.9 mmol/L (3.4-5.0); Sodium 137 mmol/L (137-145)
[2024-08-31 05:26] LABS: Alveolar/Arterial O2 Gradient 198.7 mmHg; Base Excess ABG 5.3 mEq/l (+/-2.0); Carboxyhemoglobin 0.2 % THb (0-2.0); Fractional Inspired Oxygen 50 %; HCO3 ABG 29.5 mEq/l (22.0-26.0); Oxygen Content ABG 13.5 %vol (16.0-22.0); Oxygen Saturation ABG 98.3 % (95.0-100.0); Oxyhemoglobin 98.2 % THb (90.0-100.0); PCO2 ABG 41.6 mmHg (35.0-45.0); PO2 FiO2 Ratio Arterial Blood 2.22 %; Reduced Hemoglobin 1.6 %THb (0-5.0); Total Hemoglobin 9.6 g/dL (12.0-18.0); pH ABG 7.468 (7.350-7.450)
[2024-08-31 05:27] LABS: Band Neutrophils Percent 8 % (0-6); Lymphocytes Absolute Manual 1.14 K/mm3 (1.1-4.5); Monocytes Absolute Manual 1.14 K/mm3 (0.1-0.90); Monocytes Percent Manual 7 % (3-9); Neutrophils Percent Manual 78 % (46-73); Nucleated Red Blood Cells 2 %; Platelet Estimate Adequate (Adequate); Total Cells Counted 100
[2024-08-31 05:28] LABS: Anisocytosis 1+; Polychromasia 1+; Schistocytes None Seen; Stomatocytes 1+
[2024-08-31 05:30] LABS: Device VENTILATOR; Modified Allen's Test Pass; Site Drawn RIGHT RADIAL
[2024-08-31 05:31] LABS: Arterial Blood Gas PEEP 8 cmH2O; Arterial Blood Gas Tidal Volume 320 ml; Arterial Blood Gas Vent Mode CMV; Arterial Blood Gas Ventilator rate 18 /MIN
[2024-08-31 05:41] LABS: Glucose Point of Care 160 mg/dl (65-105)
[2024-08-31 05:47] LABS: Vancomycin Random 21.4 ug/mL (10-20)
[2024-08-31] MEDS: AMIODARONE 360 MG/D5W 200 ML 360 MG/200 ML BAG 16.67 MG IV CONT (06:19)
[2024-08-31 06:25] LABS: Glucose Point of Care 187 mg/dl (65-105)
[2024-08-31 07:52] LABS: Glucose Point of Care 166 mg/dl (65-105)
[2024-08-31] MEDS: METOCLOPRAMIDE HCL 10 MG/10 ML SOLN UDC PO ×3 (08:53→20:07)
[2024-08-31] MEDS: MEROPENEM 500 MG/NS 100 ML 500 MG/100 ML BAG 200 MG IVPB (08:53)
[2024-08-31] MEDS: PANTOPRAZOLE SODIUM IV 40 MG VIAL IV PUSH ×2 (08:53→20:07)
--- NOTE | 2024-08-31 08:54 | P.PNINT_ITS ---
Progress Note: A&P Assessment and Plan (1) DVT (deep venous thrombosis): Qualifiers: DVT location: lower extremity Affected thrombotic vein of extremity: tibial Chronicity: acute Laterality: bilateral Qualified Code(s): I82.443 - Acute embolism and thrombosis of tibial vein, bilateral Code(s): I82.409 - Acute embolism and thrombosis of unspecified deep veins of unspecified lower extremity Status: Resolved Assessment and Plan: 08/20: Bilateral venous Dopplers obtained due to swelling in the legs. Ultrasound showed Bilateral [id number] deep venous thrombosis in the left and right posterior tibial veins. Patient was initially started on heparin infusion which was discontinued on 08/28 due to drop in hemoglobin 08/28/2024: Patient dropped hemoglobin to 6.9, on heparin infusion for DVTs bilaterally -have asked the bedside RN to hold heparin infusion -appreciate surgery evaluation and recommendations, will hold off IVC filter placement, repeat venous Dopplers on 08/30/2024 negative for bilateral lower extremity DVT. -continue to hold anticoagulation, 08/30: Bilateral lower extremity venous Dopplers : Negative bilateral lower extremity venous US. No deep vein thrombosis. (2) Anemia: Qualifiers: Anemia type: due to chronic kidney disease Chronic kidney disease stage: stage 3 (moderate) Chronic kidney disease stage 3 subtype: unspecified whether 3a or 3b Qualified Code(s): N18.30 - Chronic kidney disease, stage 3 unspecified; D63.1 - Anemia in chronic kidney disease Code(s): D64.9 - Anemia, unspecified Status: Acute Assessment and Plan: 08/28: Patient dropped her hemoglobin to 6.9 this morning -patient is on heparin infusion for her bilateral lower extremity DVTs -have asked the bedside RN to hold heparin infusion -08/28: Transfused 1 unit of packed RBCs -hemoglobin stable this morning -continue subQ heparin (prophylactic dose) (3) Acute respiratory failure with hypoxia: Code(s): J96.01 - Acute respiratory failure with hypoxia Status: Acute Assessment and Plan: Acute Respiratory failure secondary to combination of pneumonia and congestive heart failure 08/18: Intubated Repeat CT chest 08/18 MPRESSION: 1. Significant interval progression in an lobar pneumonia along with increasing small bilateral pleural effusions. Patient has elevated procalcitonin and BNP she is positive on intake output balance but her echocardiogram shows normal biventricular size and systolic function Continue Bronchodilators 08/16/2024: Blood cultures negative x2. 08/21/2024: Sputum culture growing MRSA Urine Legionella antigen, mycoplasma pneumonia antibody and urine pneumococcal antigen negative Continue Dialysis to remove fluid, discussed with Nephrology Status post vancomycin cefepime azithromycin (antibiotics ended on 08/27/2024) Patient was off of sedation for 2 days and became tachypneic with asynchronous with ventilator. Patient started on propofol infusion will discontinue, will give sedation vacation after dialysis Weaning trial will depend on improvement in patient's encephalopathy -Chest x-ray and ABGs reviewed -Currently on PEEP of 8 and an FiO2 of 50% FiO2 %, wean FiO2 as tolerated -patient has significant amount of secretions which are thick, will add Mucomyst and Pulmozyme nebulizer -chest x-ray continues shows bilateral infiltrates for despite fluid removal, patient continues to have thick secretions, 08/29: Restarted vancomycin and meropenem 08/30: Consult has been placed for ENT for tracheostomy and GI for PEG tube placement 08/31: PEG tube to be placed today 08/31: Discussed with Dr. Orellana, has agreed to perform tracheostomy, will let us know is availability (4) Congestive heart failure: Qualifiers: Heart failure type: unspecified Heart failure chronicity: acute on chronic Qualified Code(s): I50.9 - Heart failure, unspecified Code(s): I50.9 - Heart failure, unspecified Status: Acute Assessment and Plan: See above (5) Non-ST elevation myocardial infarction (NSTEMI): Code(s): I21.4 - Non-ST elevation (NSTEMI) myocardial infarction Status: Acute Assessment and Plan: History of coronary disease status post PCI in the past now presented with elevated troponin. -Cardiology following -Off ASA as Hb dropped -Other heart medications on hold due to low blood pressure -Statin Hold was slightly elevated LFTs. -No plan for cardiac catheterization at this time. (6) Coronary artery disease: Code(s): I25.10 - Atherosclerotic heart disease of [place] coronary artery without angina pectoris Status: Acute Assessment and Plan: See above (7) Type 2 diabetes mellitus: Code(s): E11.9 - Type 2 diabetes mellitus without complications Status: Chronic Assessment and Plan: Sliding scale insulin 08/29: Blood sugars in the 400s despite being Lantus 50 units q.12 hours. Patient was started on insulin infusion on Lantus was discontinued -continue insulin infusion Off steroids (8) Renal failure: Qualifiers: Renal failure chronicity: acute on chronic Acute renal failure type: unspecified Chronic kidney disease stage: stage 3 (moderate) Chronic kidney disease stage 3 subtype: unspecified whether 3a or 3b Qualified Code(s): N17.9 - Acute kidney failure, unspecified; N18.30 - Chronic kidney disease, stage 3 unspecified Code(s): N19 - Unspecified kidney failure Status: Acute Assessment and Plan: Patient presented with creatinine of 1.5. Baseline creatinine unknown She has suprapubic catheter. As per son patient has had a renal tumor which was being monitored and plan was to start radiation therapy by her urology CT scan showed Subtle 2.5 cm mass at the upper pole of the right kidney consistent with provided history of renal tumor. Calcification is at the bilateral kidneys which appear linear and likely atherosclerotic although could not exclude nonobstructing nephrolithiasis. No hydronephrosis in either kidney. Diuretics were held and patient was given albumin bolus Creatinine continue to increase with poor urine output. After discussion with patient's family and electronic gluing machine operator decision was made to initiate dialysis. 08/19 dialysis catheter was placed and patient was dialyzed 1 L fluid was removed 08/20, 08/21, 08/23 08/25 patient was dialyzed Monitor urine output electrolytes and creatinine Dialysis per Nephrology (9) Pneumonia: Qualifiers: Laterality: bilateral Lung location: lower lobe of lung Pneumonia type: due to methicillin-resistant Staphylococcus aureus (MRSA) Qualified Code(s): J15.212 - Pneumonia due to Methicillin resistant Staphylococcus aureus Code(s): J18.9 - Pneumonia, unspecified organism Status: Acute Assessment and Plan: See above (10) Kidney mass: Code(s): N28.89 - Other specified disorders of kidney and ureter Status: Acute Assessment and Plan: Patient's son reports history of kidney mass which is being monitored as it was too big to be removed without total nephrectomy. He states that patient was supposed to get radiation therapy in a month or so before she fractured her ankle. CT scan shows 2.5 cm renal mass on the right side and no hydronephrosis. No intervention at this time (11) Septic shock: Code(s): A41.9 - Sepsis, unspecified organism; R65.21 - Severe sepsis with septic shock Status: Acute Assessment and Plan: Off all pressors Patient requires Levophed mainly when she is receiving dialysis -continue antibiotics as above (12) Ileus: Code(s): K56.7 - Ileus, unspecified Status: Acute Assessment and Plan: RESOLVED Patient has significant output from her OG tube. She has not been tolerating tube feeds. She is on Reglan Bowel sounds are decreased. KUB does not show anything significant abnormal 08/23 Dobbhoff placed tube feeds resume 08/24 will advance tube feeds to 40 mL/hour -patient tolerating tube feeds with minimal residual, positive bowel movement (13) Atrial fibrillation with RVR: Code(s): I48.91 - Unspecified atrial fibrillation Status: Acute Assessment and Plan: Patient went into AFib with RVR after hemodialysis.. She was started on amiodarone infusion. She has converted to sinus bradycardia, amiodarone was discontinued on 08/26/2024 Currently off heparin infusion due to anemia 08/30: Patient went to AFib RVR during dialysis, with rates in the 140s to 150s, started patient on amiodarone bolus and infusion, will let the infusion complete -continue prophylactic heparin SQ (14) Encephalopathy: Code(s): G93.40 - Encephalopathy, unspecified Status: Acute Assessment and Plan: Patient was on Versed and fentanyl infusion for many days. She also has renal failure which may lead to accumulation -started on propofol infusion -off propofol patient becomes tachypneic and dyssynchronous with the ventilator leading her to desaturate -08/26/2024: CT scan of the brain No intracranial hemorrhage, mass, or acute infarct.Atrophy and chronic white matter changes. -ammonia levels within normal limits -08/29: propofol has been switched to Precedex, to allow patient to wake up -continue to wean Precedex. Plan DVT prophylaxis -heparin subQ Stress ulcer prophylaxis -increase Protonix to q.12 hours Nutrition - tube feeds currently on hold as patient will be getting a PEG tube placement today Code Status - Full Code 08/28: Had a long discussion with both sons, Luke and Geoffrey. I updated them with patient's condition plan of care. They understand that the patient has multiple medical problems but requested that she gets a tracheostomy and PEG tube placement as they want to give her a complete chance to recover 08/18 Dr Crawford and updated patient's son and his at bedside I answered all his questions. 08/19 Dr Crawford also met with patient's both sons as they wanted to proceed with hemodialysis. 08/22 Dr Crawford met with patient's 2 sons and updated them with patient's status including continued respiratory failure, shock, new issues of AFib with RVR and. I also updated them with treatment plan and answered all the questions. Total Critical Care Time - 33 minutes Due to a high probability of clinically significant, life threatening deterioration, the patient required my highest level of preparedness to intervene emergently and I personally spent this critical care time directly and personally managing the patient. This critical care time included obtaining a history; examining the patient; pulse oximetry; ordering and review of studies; arranging urgent treatment with development of a management plan; evaluation of patient's response to treatment; frequent reassessment; and discussions with other providers. It was exclusive of separately billable procedures and treating other patients and teaching time. Please see Assessment and Plan section and the rest of the note for further information on patient assessment and treatment. This dictation may have been done utilizing a voice recognition system. Attempts have been made to correct errors. However, there may be uncorrected grammatical, spelling, and recognitions errors present. Subjective Date/time seen: 08/31/24 08:54 Interval history: 08/18: Intubated 08/19 temporary dialysis catheter placed patient was dialyzed 08/21 vent into AFib with RVR. Converted to sinus Steve with amiodarone 08/23 Dobbhoff tube inserted 08/28: Transfuse 1 unit of PRBC 08/31/2024: Patient seen examined the ICU, remains intubated on CMV mode of ventilation, peep of 8, 50% FiO2. Patient is sedated with Precedex infusion, does not open her eyes, follows simple commands or withdraw to pain. Off norepinephrine. Anuric, afebrile, hemodynamically stable. Secretions remain thick, hemoglobin is stable. Had dialysis done yesterday with 2300 mL in fluid removal Review of Systems Review of Systems: ROS unobtainable: Yes unobtainable due to endotracheal tube, unobtainable due to medical condition and unobtainable due to mental status Exam Narrative: General: Pt is sedated, intubated and on mechanical ventilation HEENT: Pupils equal and reactive, sclera is clear, ETT in place Lungs/Chest: Trachea central Coarse BS B/L, bilateral rales, no wheezing, adequate air entry Cardiac: RRR. Normal S1 S2. No murmurs Abdomen: Soft, nontender, nondistended, hypoactive bowel sounds Extremities: Bilateral pitting edema, palpable pedal pulse : Butt in place Neurologic: Currently intubated, on Precedex infusion, does not open her eyes or follow simple commands. Patient does not withdraw to pain Objective Data Vital Signs Vital Signs: Vital Signs - 24 hr 08/30/24 08:55 08/30/24 08:55 08/30/24 09:05 Temperature 98.1 F Pulse Rate 96 94 Respiratory Rate 32 H Blood Pressure 109/65 102/64 Pulse Oximetry 95 Oxygen Delivery Fraction of Inspired Oxygen 50 08/30/24 09:15 08/30/24 09:30 08/30/24 09:45 Temperature Pulse Rate 93 93 95 Respiratory Rate Blood Pressure 101/62 103/64 99/62 L Pulse Oximetry Oxygen Delivery Fraction of Inspired Oxygen 08/30/24 10:00 08/30/24 10:00 08/30/24 10:00 Temperature Pulse Rate 95 95 95 Respiratory Rate 30 H Blood Pressure 98/61 L 98/61 L Pulse Oximetry 96 Oxygen Delivery Fraction of Inspired Oxygen 08/30/24 10:10 08/30/24 10:15 08/30/24 10:15 Temperature Pulse Rate 113 H 115 H 113 H Respiratory Rate 32 H Blood Pressure 100/60 Pulse Oximetry Oxygen Delivery Fraction of Inspired Oxygen 08/30/24 10:30 08/30/24 10:32 08/30/24 10:45 Temperature Pulse Rate 120 H 122 H 127 H Respiratory Rate Blood Pressure 89/61 L 92/74 L 90/61 L Pulse Oximetry Oxygen Delivery Fraction of Inspired Oxygen 08/30/24 10:50 08/30/24 11:00 08/30/24 11:00 Temperature Pulse Rate 135 H 122 H 124 H Respiratory Rate Blood Pressure 87/76 L 78/65 L 102/74 Pulse Oximetry Oxygen Delivery Fraction of Inspired Oxygen 08/30/24 11:01 08/30/24 11:10 08/30/24 11:10 Temperature Pulse Rate 123 H 123 H 123 H Respiratory Rate 28 H Blood Pressure 78/65 L Pulse Oximetry 95 Oxygen Delivery Mechanical Ventilation Fraction of Inspired Oxygen 50 08/30/24 11:15 08/30/24 11:30 08/30/24 11:45 Temperature Pulse Rate 122 H 124 H 129 H Respiratory Rate Blood Pressure 102/74 100/64 107/65 Pulse Oximetry Oxygen Delivery Fraction of Inspired Oxygen 08/30/24 12:00 08/30/24 12:00 08/30/24 12:00 Temperature Pulse Rate 131 H 138 H 138 H Respiratory Rate 30 H Blood Pressure 94/75 L 87/64 L Pulse Oximetry Oxygen Delivery Fraction of Inspired Oxygen 08/30/24 12:00 08/30/24 12:00 08/30/24 12:00 Temperature Pulse Rate 132 H Respiratory Rate Blood Pressure Pulse Oximetry 96 Oxygen Delivery Mechanical Ventilation Fraction of Inspired Oxygen 50 50 08/30/24 12:00 08/30/24 12:04 08/30/24 12:15 Temperature 98.2 F Pulse Rate 138 H 135 H Respiratory Rate 30 H Blood Pressure 87/64 L 97/66 L 82/58 L Pulse Oximetry 97 Oxygen Delivery Fraction of Inspired Oxygen 08/30/24 12:19 08/30/24 12:30 08/30/24 13:00 Temperature Pulse Rate 135 H 138 H 133 H Respiratory Rate Blood Pressure 98/70 L 95/83 L 100/66 Pulse Oximetry Oxygen Delivery Fraction of Inspired Oxygen 08/30/24 13:15 08/30/24 13:24 08/30/24 13:25 Temperature 98.2 F Pulse Rate 127 H 140 H 143 H Respiratory Rate 30 H 30 H Blood Pressure 93/63 L 97/70 L Pulse Oximetry 96 Oxygen Delivery Fraction of Inspired Oxygen 08/30/24 13:25 08/30/24 13:30 08/30/24 13:40 Temperature Pulse Rate 143 H 143 H 132 H Respiratory Rate 30 H Blood Pressure 89/64 L 89/55 L Pulse Oximetry Oxygen Delivery Fraction of Inspired Oxygen 08/30/24 13:45 08/30/24 14:00 08/30/24 14:00 Temperature Pulse Rate 150 H 132 H 132 H Respiratory Rate 30 H Blood Pressure 88/66 L 89/55 L Pulse Oximetry 96 Oxygen Delivery Fraction of Inspired Oxygen 08/30/24 14:00 08/30/24 14:00 08/30/24 14:31 Temperature Pulse Rate 132 H 132 H 132 H Respiratory Rate 30 H 34 H Blood Pressure 89/55 L Pulse Oximetry Oxygen Delivery Fraction of Inspired Oxygen 08/30/24 14:33 08/30/24 14:36 08/30/24 15:27 Temperature Pulse Rate 125 H 100 102 H Respiratory Rate Blood Pressure 102/66 Pulse Oximetry 95 Oxygen Delivery Mechanical Ventilation Fraction of Inspired Oxygen 50 08/30/24 16:00 08/30/24 16:00 08/30/24 16:00 Temperature 98.4 F Pulse Rate 100 Respiratory Rate 30 H Blood Pressure 98/61 L Pulse Oximetry 96 96 Oxygen Delivery Mechanical Ventilation Fraction of Inspired Oxygen 50 50 08/30/24 16:00 08/30/24 16:00 08/30/24 16:00 Temperature Pulse Rate 99 100 100 Respiratory Rate 30 H Blood Pressure 98/61 L Pulse Oximetry Oxygen Delivery Fraction of Inspired Oxygen 08/30/24 17:17 08/30/24 18:00 08/30/24 18:00 Temperature Pulse Rate 94 93 999 H Respiratory Rate 30 H Blood Pressure Pulse Oximetry 98 Oxygen Delivery Mechanical Ventilation Fraction of Inspired Oxygen 50 08/30/24 18:00 08/30/24 18:30 08/30/24 18:34 Temperature Pulse Rate 193 H 87 88 Respiratory Rate 30 H Blood Pressure 94/59 L 85/52 L 85/52 L Pulse Oximetry 98 Oxygen Delivery Fraction of Inspired Oxygen 08/30/24 18:39 08/30/24 19:40 08/30/24 20:00 Temperature Pulse Rate 87 89 88 Respiratory Rate 31 H Blood Pressure 85/52 L 105/67 Pulse Oximetry Oxygen Delivery Fraction of Inspired Oxygen 08/30/24 20:00 08/30/24 20:00 08/30/24 20:00 Temperature Pulse Rate 88 88 Respiratory Rate Blood Pressure 93/60 L 93/60 L Pulse Oximetry 98 Oxygen Delivery Mechanical Ventilation Fraction of Inspired Oxygen 50 08/30/24 20:00 08/30/24 20:00 08/30/24 20:00 Temperature 99.9 F H Pulse Rate 88 81 Respiratory Rate 31 H Blood Pressure 93/60 L Pulse Oximetry 99 Oxygen Delivery Fraction of Inspired Oxygen 50 08/30/24 20:17 08/30/24 20:34 08/30/24 20:36 Temperature Pulse Rate 87 87 100 Respiratory Rate 33 H 33 H Blood Pressure Pulse Oximetry 87 L Oxygen Delivery Mechanical Ventilation Fraction of Inspired Oxygen 50 08/30/24 22:00 08/30/24 22:00 08/30/24 22:00 Temperature Pulse Rate 82 82 82 Respiratory Rate 33 H Blood Pressure 86/56 L 86/56 L Pulse Oximetry Oxygen Delivery Fraction of Inspired Oxygen 08/30/24 22:00 08/30/24 22:00 08/30/24 22:54 Temperature Pulse Rate 82 82 100 Respiratory Rate 33 H Blood Pressure 86/56 L Pulse Oximetry 100 86 L Oxygen Delivery Mechanical Ventilation Fraction of Inspired Oxygen 50 08/31/24 00:00 08/31/24 00:00 08/31/24 00:00 Temperature Pulse Rate 89 Respiratory Rate Blood Pressure Pulse Oximetry 100 Oxygen Delivery Mechanical Ventilation Fraction of Inspired Oxygen 50 50 08/31/24 00:00 08/31/24 00:00 08/31/24 00:00 Temperature Pulse Rate 89 89 89 Respiratory Rate 33 H Blood Pressure 107/63 107/63 Pulse Oximetry Oxygen Delivery Fraction of Inspired Oxygen 08/31/24 00:00 08/31/24 00:28 08/31/24 00:28 Temperature 100.1 F H Pulse Rate 89 90 90 Respiratory Rate 33 H 33 H 33 H Blood Pressure 107/63 Pulse Oximetry 100 Oxygen Delivery Fraction of Inspired Oxygen 08/31/24 02:00 08/31/24 02:00 08/31/24 02:00 Temperature Pulse Rate 86 86 86 Respiratory Rate 30 H 30 H Blood Pressure 108/63 Pulse Oximetry 100 Oxygen Delivery Fraction of Inspired Oxygen 08/31/24 02:00 08/31/24 02:00 08/31/24 02:14 Temperature Pulse Rate 86 89 100 Respiratory Rate Blood Pressure 108/63 108/63 Pulse Oximetry 85 L Oxygen Delivery Mechanical Ventilation Fraction of Inspired Oxygen 50 08/31/24 02:14 08/31/24 02:35 08/31/24 04:00 Temperature Pulse Rate 85 85 Respiratory Rate 31 H 31 H Blood Pressure Pulse Oximetry 100 Oxygen Delivery Mechanical Ventilation Fraction of Inspired Oxygen 50 08/31/24 04:00 08/31/24 04:00 08/31/24 04:00 Temperature 99.2 F Pulse Rate 79 79 Respiratory Rate 32 H Blood Pressure 98/61 L Pulse Oximetry 100 Oxygen Delivery Fraction of Inspired Oxygen 50 08/31/24 04:00 08/31/24 04:00 08/31/24 04:00 Temperature Pulse Rate 79 79 79 Respiratory Rate 32 H Blood Pressure 98/61 L 98/61 L Pulse Oximetry Oxygen Delivery Fraction of Inspired Oxygen 08/31/24 05:28 08/31/24 05:58 08/31/24 06:00 Temperature Pulse Rate 100 82 82 Respiratory Rate 29 H 29 H Blood Pressure 98/59 L Pulse Oximetry 88 L 100 Oxygen Delivery Mechanical Ventilation Fraction of Inspired Oxygen 50 08/31/24 06:00 08/31/24 06:00 08/31/24 06:00 Temperature Pulse Rate 82 82 82 Respiratory Rate Blood Pressure 98/59 L 98/59 L Pulse Oximetry Oxygen Delivery Fraction of Inspired Oxygen 08/31/24 06:19 08/31/24 06:19 08/31/24 06:32 Temperature Pulse Rate 75 75 74 Respiratory Rate Blood Pressure 89/54 L 89/54 L 85/54 L Pulse Oximetry Oxygen Delivery Fraction of Inspired Oxygen 08/31/24 07:40 08/31/24 07:52 08/31/24 07:54 Temperature Pulse Rate 80 80 88 Respiratory Rate 25 H 25 H Blood Pressure Pulse Oximetry 98 Oxygen Delivery Mechanical Ventilation Fraction of Inspired Oxygen 40 Intake/Output Intake/Output: Intake & Output 08/28/24 08/29/24 08/30/24 08/31/24 23:59 23:59 23:59 23:59 Intake Total 2304.6 1939.7 2161.6 679.0 Output Total 3841 25 2315 Balance -1536.4 1914.7 -153.4 679.0 Meds/Results Medications: Active Medications Generic Name Dose Route Start Last Admin Trade Name Freq PRN Reason Stop Dose Admin Acetaminophen 650 mg 08/18/24 21:48 08/28/24 01:10 Acetaminophen Elixir 325 Mg/10.15 Ml Udc PO 650 mg Q4H PRN Administration Mild Pain (1-3) or Fever Acetylcysteine 200 mg 08/28/24 08:00 08/31/24 07:52 Acetylcysteine 20% Inhal Soln 800 Mg/4 Ml Vial INHALATION 200 mg Q6HRT TEMI Administration Dextrose 12.5 gm 08/29/24 15:45 Dextrose 50% 25 Gm/50 Ml Syringe IV PUSH PRN PRN Hypoglycemia Protocol Glucagon 1 mg 08/29/24 15:45 Glucagon For Inj 1 Mg Vial IM PRN PRN Hypoglycemia Protocol Glucose 15 gm 08/29/24 15:45 Glucose Oral Gel 15 Gm Of Glucse In 37.5 Gm Tube PO PRN PRN Hypoglycemia Protocol Heparin Sodium (Porcine) 5,500 units 08/18/24 15:05 08/18/24 23:23 Heparin Sodium 5,000 Units/Ml Vial IV PUSH 5,500 units PRN PRN Administration aPTT less than 55 seconds Heparin Sodium (Porcine) 3,000 units 08/18/24 15:05 08/23/24 10:58 Heparin Sodium 5,000 Units/Ml Vial IV PUSH 3,000 units PRN PRN Administration aPTT 55 - 70 seconds Heparin Sodium (Porcine) 5,000 units 08/29/24 07:45 08/30/24 20:56 Heparin Sodium 5,000 Units/Ml Vial SUB-Q 5,000 units Q8HR TEMI Administration Heparin Sodium/Dextrose 25,000 units in 250 mls @ 23 mls/hr 08/18/24 15:05 08/28/24 22:25 Heparin Sodium/D5w 100 Units/Ml IV CONT Infused .[id number] TEMI Titration Protocol 2,300 UNITS/HR Albumin Human 50 mls @ 999 mls/hr 08/21/24 06:28 Albutein IVPB 09/20/24 06:27 Q10M PRN HYPOTENSION Meropenem 500 mg in 100 mls @ 200 mls/hr 08/29/24 08:00 08/30/24 14:25 IVPB Infused Q24H TEMI Infusion Dexmedetomidine HCl 400 mcg in 100 mls @ 8.46 mls/hr 08/29/24 14:30 08/31/24 06:00 Precedex 400 Mcg/100 Ml IV CONT 0.4 mcg/kg/hr .[id number] TEMI 8.46 mls/hr Titration Protocol 0.4 MCG/KG/HR Insulin Human Regular 100 100 mls @ 1 mls/hr 08/29/24 16:00 08/31/24 07:46 units/ Sodium Chloride IV CONT 1 units/hr .Q24H TEMI 1 mls/hr Titration Protocol 1 UNITS/HR Dextrose 1,000 mls @ 100 mls/hr 08/29/24 15:45 Dextrose 5% 1,000 Ml IVPB PRN PRN Hypoglycemia Protocol Norepinephrine Bitartrate 8 mg in 250 mls @ 13.125 mls/hr 08/30/24 11:10 08/31/24 06:32 Levophed 8 Mg/D5w 250 Ml IV CONT 7 mcg/min .Q19H3M TEMI 13.13 mls/hr Titration Protocol 7 MCG/MIN Amiodarone HCl/Dextrose 360 mg in 200 mls @ 16.667 mls/hr 08/30/24 18:58 08/31/24 06:19 Nexterone 360 Mg/D5w 200 Ml IV CONT 08/31/24 18:57 0.5 mg/min .Q12H TEMI 16.67 mls/hr Administration Protocol 0.5 MG/MIN Insulin Aspart 4 - 8 units 08/20/24 21:05 08/29/24 12:41 Insulin Aspart (*Bkc) 100 Units/Ml SUB-Q 8 units Q4HR TEMI Administration Protocol Insulin Glargine 50 units 08/29/24 09:00 08/29/24 08:22 Insulin Glargine (*Bkc) 100 Units/Ml SUB-Q 50 units Q12H TEMI Administration Ipratropium [place] 0.5 mg 08/29/24 12:22 08/29/24 12:20 Ipratropium Br 0.02% Inh Soln 0.5 Mg/2.5 Ml Vial INHALATION 0.5 mg Q6HRT PRN Administration Wheezing Levalbuterol HCl 1.25 mg 08/29/24 14:00 08/31/24 07:52 Levalbuterol Neb 1.25 Mg/3 Ml INHALATION 1.25 mg Q6HRT TEMI Administration Levalbuterol HCl 1.25 mg 08/29/24 12:22 08/29/24 12:20 Levalbuterol Neb 1.25 Mg/3 Ml INHALATION 1.25 mg Q6HRT PRN Administration Wheezing Metoclopramide HCl 10 mg 08/23/24 08:00 08/31/24 02:10 Metoclopramide Hcl 10 Mg/10 Ml Soln Udc PO Not Given Q6H TEMI Multi-Ingred Cream/Lotion/Oil/Oint 1 applic 08/18/24 09:00 08/30/24 20:48 Mineral Oil/White Petrolatum Ointment EACH EYE 1 applic Q12HR TEMI Administration Pantoprazole Sodium 40 mg 08/28/24 21:00 08/30/24 20:47 Pantoprazole Sodium Iv 40 Mg Vial IV PUSH 40 mg Q12HR TEMI Administration Polyethylene Glycol 17 gm 08/15/24 22:20 08/28/24 08:19 Polyethylene Glycol 3350 17 Gm Powd.Pack PO 17 gm DAILY PRN Administration constipation Sodium Chloride 10 ml 08/19/24 22:00 08/31/24 04:49 Central Line Flush IV PUSH 10 ml Q8HR TEMI Administration Sodium Chloride 20 ml 08/19/24 18:43 Central Line Flush IV PUSH PRN PRN after blood draws Vancomycin HCl 1 each 08/30/24 06:14 Vancomycin For Hemodialysis IVPB PRN PRN Vancomycin Protocol Radiology Results: ITS Impressions Chest CTA 08/15/24 11:11 IMPRESSION: No pulmonary embolus. No thoracic aortic dissection. Right upper lobe infiltrate with patchy bilateral airspace disease, likely inflammatory/congestive rather than infectious. Small bilateral pleural effusions with adjacent atelectasis. Renal Ultrasound 08/19/24 14:10 IMPRESSION: No hydronephrosis or renal calculi. Findings suggesting medical renal disease. Findings within the upper pole of the right kidney consistent with patient's history, as detailed above. Chest/Abdomen/Pelvis CT 08/23/24 09:58 IMPRESSION: CHEST: 1. Bilateral pneumonia which is slightly decreased compared to previous study. Bilateral pleural effusion more on the right side. ABDOMEN/PELVIS: 1. No evidence of appendicitis, diverticulitis or intestinal obstruction. 2. Bilateral tiny kidney stones. 3. Hepatomegaly. 4. No evidence of ileus seen. ADDENDUM: 08/23/24 1042 Possibility of mass in the right kidney upper pole cannot be excluded. Abdomen X-Ray 08/23/24 16:53 IMPRESSION: 1. Dobbhoff type nasoenteric feeding tube with distal tip projecting over the gastric fundus. Head CT 08/26/24 09:32 Impression: No intracranial hemorrhage, mass, or acute infarct. Atrophy and chronic white matter changes, as above. Venous Doppler Study 08/30/24 15:18 IMPRESSION: Negative bilateral lower extremity venous US. No deep vein thrombosis. Chest X-Ray 08/31/24 06:35 Impression: Moderate pulmonary edema, probably improved in the right lung. Correlate clinically for pneumonia. Small bilateral pleural effusions. Support tubes, as above. Labs Labs: Laboratory Results - last 24 hr 08/30/24 08/30/24 08/30/24 08:57 10:04 11:14 WBC RBC Hgb Hct MCV MCH MCHC RDW Plt Count MPV Immature Gran % (Auto) Neut % (Auto) Lymph % (Auto) [place] % (Auto) Eos % (Auto) Baso % (Auto) Lymph # (Auto) [place] # (Auto) Eos # (Auto) Baso # (Auto) Abs Immat Gran (auto) Absolute Neuts (auto) Absolute Nucleated RBC Total Counted Neutrophils % (Manual) Band Neutrophils % Lymphocytes % (Manual) Monocytes % (Manual) Nucleated RBC % Abs Neuts (Manual) Abs Lymphs (Manual) Abs Monocytes (Manual) Nucleated RBCs Platelet Estimate Polychromasia Anisocytosis Stomatocytes Schistocytes Puncture Site ABG pH ABG pCO2 ABG pO2 ABG PO2/FiO2 Ratio ABG HCO3 ABG O2 Saturation ABG O2 Content ABG Base Excess A-a Gradient Oxyhemoglobin Carboxyhemoglobin Methemoglobin Reduced Hemoglobin Total Hemoglobin O2 Delivery Device O2 Liters/Min Minute Volume Vent Rate Vent Mode FiO2 Tidal Volume PEEP Peak Inspir Pressure Pressure Support Sodium Potassium Chloride Carbon Dioxide Anion Gap BUN Creatinine Estim Creat Clear Calc Estimated GFR Glucose POC Capillary Glucose 219 H 150 H 136 H Calcium Phosphorus Magnesium Total Bilirubin AST ALT Alkaline Phosphatase Total Protein Albumin Random Vancomycin 08/30/24 08/30/24 08/30/24 12:23 13:22 14:00 WBC RBC Hgb Hct MCV MCH MCHC RDW Plt Count MPV Immature Gran % (Auto) Neut % (Auto) Lymph % (Auto) [place] % (Auto) Eos % (Auto) Baso % (Auto) Lymph # (Auto) [place] # (Auto) Eos # (Auto) Baso # (Auto) Abs Immat Gran (auto) Absolute Neuts (auto) Absolute Nucleated RBC Total Counted Neutrophils % (Manual) Band Neutrophils % Lymphocytes % (Manual) Monocytes % (Manual) Nucleated RBC % Abs Neuts (Manual) Abs Lymphs (Manual) Abs Monocytes (Manual) Nucleated RBCs Platelet Estimate Polychromasia Anisocytosis Stomatocytes Schistocytes Puncture Site ABG pH ABG pCO2 ABG pO2 ABG PO2/FiO2 Ratio ABG HCO3 ABG O2 Saturation ABG O2 Content ABG Base Excess A-a Gradient Oxyhemoglobin Carboxyhemoglobin Methemoglobin Reduced Hemoglobin Total Hemoglobin O2 Delivery Device O2 Liters/Min Minute Volume Vent Rate Vent Mode FiO2 Tidal Volume PEEP Peak Inspir Pressure Pressure Support Sodium Potassium Chloride Carbon Dioxide Anion Gap BUN Creatinine Estim Creat Clear Calc Estimated GFR Glucose POC Capillary Glucose 143 H 156 H 233 H Calcium Phosphorus Magnesium Total Bilirubin AST ALT Alkaline Phosphatase Total Protein Albumin Random Vancomycin 08/30/24 08/30/24 08/30/24 15:20 15:21 16:14 WBC RBC Hgb Hct MCV MCH MCHC RDW Plt Count MPV Immature Gran % (Auto) Neut % (Auto) Lymph % (Auto) [place] % (Auto) Eos % (Auto) Baso % (Auto) Lymph # (Auto) [place] # (Auto) Eos # (Auto) Baso # (Auto) Abs Immat Gran (auto) Absolute Neuts (auto) Absolute Nucleated RBC Total Counted Neutrophils % (Manual) Band Neutrophils % Lymphocytes % (Manual) Monocytes % (Manual) Nucleated RBC % Abs Neuts (Manual) Abs Lymphs (Manual) Abs Monocytes (Manual) Nucleated RBCs Platelet Estimate Polychromasia Anisocytosis Stomatocytes Schistocytes Puncture Site ABG pH ABG pCO2 ABG pO2 ABG PO2/FiO2 Ratio ABG HCO3 ABG O2 Saturation ABG O2 Content ABG Base Excess A-a Gradient Oxyhemoglobin Carboxyhemoglobin Methemoglobin Reduced Hemoglobin Total Hemoglobin O2 Delivery Device O2 Liters/Min Minute Volume Vent Rate Vent Mode FiO2 Tidal Volume PEEP Peak Inspir Pressure Pressure Support Sodium 137 Potassium 3.6 Chloride 93 L Carbon Dioxide 29 Anion Gap 15 H BUN 49 H D Creatinine 1.98 H Estim Creat Clear Calc 22 Estimated GFR 24 L Glucose 275 H POC Capillary Glucose 273 H 296 H Calcium 8.9 Phosphorus 2.9 Magnesium 2.2 Total Bilirubin AST ALT Alkaline Phosphatase Total Protein Albumin Random Vancomycin 08/30/24 08/30/24 08/30/24 17:21 18:28 19:42 WBC RBC Hgb Hct MCV MCH MCHC RDW Plt Count MPV Immature Gran % (Auto) Neut % (Auto) Lymph % (Auto) [place] % (Auto) Eos % (Auto) Baso % (Auto) Lymph # (Auto) [place] # (Auto) Eos # (Auto) Baso # (Auto) Abs Immat Gran (auto) Absolute Neuts (auto) Absolute Nucleated RBC Total Counted Neutrophils % (Manual) Band Neutrophils % Lymphocytes % (Manual) Monocytes % (Manual) Nucleated RBC % Abs Neuts (Manual) Abs Lymphs (Manual) Abs Monocytes (Manual) Nucleated RBCs Platelet Estimate Polychromasia Anisocytosis Stomatocytes Schistocytes Puncture Site ABG pH ABG pCO2 ABG pO2 ABG PO2/FiO2 Ratio ABG HCO3 ABG O2 Saturation ABG O2 Content ABG Base Excess A-a Gradient Oxyhemoglobin Carboxyhemoglobin Methemoglobin Reduced Hemoglobin Total Hemoglobin O2 Delivery Device O2 Liters/Min Minute Volume Vent Rate Vent Mode FiO2 Tidal Volume PEEP Peak Inspir Pressure Pressure Support Sodium Potassium Chloride Carbon Dioxide Anion Gap BUN Creatinine Estim Creat Clear Calc Estimated GFR Glucose POC Capillary Glucose 280 H 276 H 239 H Calcium Phosphorus Magnesium Total Bilirubin AST ALT Alkaline Phosphatase Total Protein Albumin Random Vancomycin 08/30/24 08/30/24 08/30/24 20:43 21:35 22:43 WBC RBC Hgb Hct MCV MCH MCHC RDW Plt Count MPV Immature Gran % (Auto) Neut % (Auto) Lymph % (Auto) [place] % (Auto) Eos % (Auto) Baso % (Auto) Lymph # (Auto) [place] # (Auto) Eos # (Auto) Baso # (Auto) Abs Immat Gran (auto) Absolute Neuts (auto) Absolute Nucleated RBC Total Counted Neutrophils % (Manual) Band Neutrophils % Lymphocytes % (Manual) Monocytes % (Manual) Nucleated RBC % Abs Neuts (Manual) Abs Lymphs (Manual) Abs Monocytes (Manual) Nucleated RBCs Platelet Estimate Polychromasia Anisocytosis Stomatocytes Schistocytes Puncture Site ABG pH ABG pCO2 ABG pO2 ABG PO2/FiO2 Ratio ABG HCO3 ABG O2 Saturation ABG O2 Content ABG Base Excess A-a Gradient Oxyhemoglobin Carboxyhemoglobin Methemoglobin Reduced Hemoglobin Total Hemoglobin O2 Delivery Device O2 Liters/Min Minute Volume Vent Rate Vent Mode FiO2 Tidal Volume PEEP Peak Inspir Pressure Pressure Support Sodium Potassium Chloride Carbon Dioxide Anion Gap BUN Creatinine Estim Creat Clear Calc Estimated GFR Glucose POC Capillary Glucose 250 H 273 H 234 H Calcium Phosphorus Magnesium Total Bilirubin AST ALT Alkaline Phosphatase Total Protein Albumin Random Vancomycin 08/30/24 08/31/24 08/31/24 23:39 00:25 01:37 WBC RBC Hgb Hct MCV MCH MCHC RDW Plt Count MPV Immature Gran % (Auto) Neut % (Auto) Lymph % (Auto) [place] % (Auto) Eos % (Auto) Baso % (Auto) Lymph # (Auto) [place] # (Auto) Eos # (Auto) Baso # (Auto) Abs Immat Gran (auto) Absolute Neuts (auto) Absolute Nucleated RBC Total Counted Neutrophils % (Manual) Band Neutrophils % Lymphocytes % (Manual) Monocytes % (Manual) Nucleated RBC % Abs Neuts (Manual) Abs Lymphs (Manual) Abs Monocytes (Manual) Nucleated RBCs Platelet Estimate Polychromasia Anisocytosis Stomatocytes Schistocytes Puncture Site ABG pH ABG pCO2 ABG pO2 ABG PO2/FiO2 Ratio ABG HCO3 ABG O2 Saturation ABG O2 Content ABG Base Excess A-a Gradient Oxyhemoglobin Carboxyhemoglobin Methemoglobin Reduced Hemoglobin Total Hemoglobin O2 Delivery Device O2 Liters/Min Minute Volume Vent Rate Vent Mode FiO2 Tidal Volume PEEP Peak Inspir Pressure Pressure Support Sodium Potassium Chloride Carbon Dioxide Anion Gap BUN Creatinine Estim Creat Clear Calc Estimated GFR Glucose POC Capillary Glucose 247 H 221 H 207 H Calcium Phosphorus Magnesium Total Bilirubin AST ALT Alkaline Phosphatase Total Protein Albumin Random Vancomycin 08/31/24 08/31/24 08/31/24 02:25 03:31 04:38 WBC RBC Hgb Hct MCV MCH MCHC RDW Plt Count MPV Immature Gran % (Auto) Neut % (Auto) Lymph % (Auto) [place] % (Auto) Eos % (Auto) Baso % (Auto) Lymph # (Auto) [place] # (Auto) Eos # (Auto) Baso # (Auto) Abs Immat Gran (auto) Absolute Neuts (auto) Absolute Nucleated RBC Total Counted Neutrophils % (Manual) Band Neutrophils % Lymphocytes % (Manual) Monocytes % (Manual) Nucleated RBC % Abs Neuts (Manual) Abs Lymphs (Manual) Abs Monocytes (Manual) Nucleated RBCs Platelet Estimate Polychromasia Anisocytosis Stomatocytes Schistocytes Puncture Site ABG pH ABG pCO2 ABG pO2 ABG PO2/FiO2 Ratio ABG HCO3 ABG O2 Saturation ABG O2 Content ABG Base Excess A-a Gradient Oxyhemoglobin Carboxyhemoglobin Methemoglobin Reduced Hemoglobin Total Hemoglobin O2 Delivery Device O2 Liters/Min Minute Volume Vent Rate Vent Mode FiO2 Tidal Volume PEEP Peak Inspir Pressure Pressure Support Sodium Potassium Chloride Carbon Dioxide Anion Gap BUN Creatinine Estim Creat Clear Calc Estimated GFR Glucose POC Capillary Glucose 162 H 184 H 178 H Calcium Phosphorus Magnesium Total Bilirubin AST ALT Alkaline Phosphatase Total Protein Albumin Random Vancomycin 08/31/24 08/31/24 08/31/24 04:48 05:24 05:38 WBC 16.4 H RBC 3.29 L Hgb 8.6 L Hct 28.1 L MCV 85.4 MCH 26.1 MCHC 30.6 L RDW 19.5 H Plt Count 193 MPV 10.9 H Immature Gran % (Auto) Not Reportable Neut % (Auto) Not Reportable Lymph % (Auto) Not Reportable [place] % (Auto) Not Reportable Eos % (Auto) Not Reportable Baso % (Auto) Not Reportable Lymph # (Auto) Not Reportable [place] # (Auto) Not Reportable Eos # (Auto) Not Reportable Baso # (Auto) Not Reportable Abs Immat Gran (auto) Not Reportable Absolute Neuts (auto) Not Reportable Absolute Nucleated RBC Not Reportable Total Counted 100 Neutrophils % (Manual) 78 H Band Neutrophils % 8 H Lymphocytes % (Manual) 7.0 L Monocytes % (Manual) 7 Nucleated RBC % Not Reportable Abs Neuts (Manual) 14.10 H Abs Lymphs (Manual) 1.14 Abs Monocytes (Manual) 1.14 H Nucleated RBCs 2 Platelet Estimate Adequate Polychromasia 1+ Anisocytosis 1+ Stomatocytes 1+ Schistocytes None seen Puncture Site Right radial ABG pH 7.468 H ABG pCO2 41.6 ABG pO2 111.0 H ABG PO2/FiO2 Ratio 2.22 ABG HCO3 29.5 H ABG O2 Saturation 98.3 ABG O2 Content 13.5 L ABG Base Excess 5.3 A-a Gradient 198.7 Oxyhemoglobin 98.2 Carboxyhemoglobin 0.2 Methemoglobin 0.0 Reduced Hemoglobin 1.6 Total Hemoglobin 9.6 L O2 Delivery Device Ventilator O2 Liters/Min Not Reportable Minute Volume Not Reportable Vent Rate 18 Vent Mode Cmv FiO2 50 Tidal Volume 320 PEEP 8 Peak Inspir Pressure Not Reportable Pressure Support Not Reportable Sodium 137 Potassium 3.9 Chloride 92 L Carbon Dioxide 29 Anion Gap 16 H BUN 69 H D Creatinine 3.25 H Estim Creat Clear Calc 14 Estimated GFR 14 L Glucose 174 H POC Capillary Glucose 160 H Calcium 8.9 Phosphorus 3.9 Magnesium 2.7 H Total Bilirubin 0.3 AST 42 H ALT 52 H Alkaline Phosphatase 97 Total Protein 7.0 Albumin 3.8 Random Vancomycin 21.4 H 08/31/24 08/31/24 06:22 07:46 WBC RBC Hgb Hct MCV MCH MCHC RDW Plt Count MPV Immature Gran % (Auto) Neut % (Auto) Lymph % (Auto) [place] % (Auto) Eos % (Auto) Baso % (Auto) Lymph # (Auto) [place] # (Auto) Eos # (Auto) Baso # (Auto) Abs Immat Gran (auto) Absolute Neuts (auto) Absolute Nucleated RBC Total Counted Neutrophils % (Manual) Band Neutrophils % Lymphocytes % (Manual) Monocytes % (Manual) Nucleated RBC % Abs Neuts (Manual) Abs Lymphs (Manual) Abs Monocytes (Manual) Nucleated RBCs Platelet Estimate Polychromasia Anisocytosis Stomatocytes Schistocytes Puncture Site ABG pH ABG pCO2 ABG pO2 ABG PO2/FiO2 Ratio ABG HCO3 ABG O2 Saturation ABG O2 Content ABG Base Excess A-a Gradient Oxyhemoglobin Carboxyhemoglobin Methemoglobin Reduced Hemoglobin Total Hemoglobin O2 Delivery Device O2 Liters/Min Minute Volume Vent Rate Vent Mode FiO2 Tidal Volume PEEP Peak Inspir Pressure Pressure Support Sodium Potassium Chloride Carbon Dioxide Anion Gap BUN Creatinine Estim Creat Clear Calc Estimated GFR Glucose POC Capillary Glucose 187 H 166 H Calcium Phosphorus Magnesium Total Bilirubin AST ALT Alkaline Phosphatase Total Protein Albumin Random Vancomycin Quality VTE Prophylaxis VTE prophylaxis: mechanical ordered and pharmacologic ordered
[2024-08-31] MEDS: MINERAL OIL/WHITE PETROLATUM OINTMENT 1 APPLIC EACH EYE ×2 (08:57→20:08)
[2024-08-31 09:12] LABS: Glucose Point of Care 195 mg/dl (65-105)
[2024-08-31 10:11] LABS: Glucose Point of Care 200 mg/dl (65-105)
[2024-08-31] MEDS: NOREPINEPHRINE 8 MG/D5W 250 ML 8 MG/250 ML BAG 7.5 MG IV CONT (10:15)
[2024-08-31] MEDS: INSULIN HUMAN REGULAR (*BKC) 100 UNITS in SODIUM CHLORIDE 0.9% IV 99 ML IV CONT (10:17)
--- NOTE | 2024-08-31 11:03 | PCNFU ---
Nutrition Follow-Up Complete: Increased nutrient needs related to altered skin integrity as evidenced by noted pressure injuries Goal: Meet estimated nutritional needs. Pt current nutrition is NPO. Nutrition recommendation: Nepro at 40 ml/hr with Gianluca BID and Prosource BID. Last recorded weight is 84.6 kg, down from 88.8 kg on admit. Bowel Motility: Last reported BM 08/29 Labs Reviewed: Mg 2.7, BUN 69, Cr 3.25, Glu 174, Hct 28.1, Hgb 8.6 Meds Noted:Precedex, Meropenem, Reglan, Vancomycin, NovoLog, Lantus, Levophed. Skin: Deep Tissue-buttocks, unstageable-left heel. Additional Notes: Patient remains on mechanical vent. Tube feedings are on hold for PEG placement today. Plans to restart tube feedings of Nepro at 40 ml/hr with Gianluca BID and Prosource BID. Total Nutrition: 1904 kcal/117 gm protein/640 ml water. Flush 30 ml q 4 hours. Discussions regarding Trach on 09/03. Agree with diet orders. Monitor daily in ICU rounds and reassessing every Friday and Friday.
[2024-08-31 11:07] LABS: Glucose Point of Care 177 mg/dl (65-105)
--- NOTE | 2024-08-31 11:57 | SUR.OPER ---
Glucose 187 at 1157. Sedation provided by ICU staff.
--- NOTE | 2024-08-31 12:27 | P.PNNP_ITS ---
Subjective Date/time seen: 08/31/24 10:30 Interval history: Follow-up for acute kidney injury/acute renal failure on chronic kidney disease. Tolerated dialysis treatment yesterday without any issues or problems; Objective Data Vital Signs Vital Signs: Vital Signs Temp Pulse Resp BP Pulse Ox O2 Del Method FiO2 08/31/24 10:30 84 109/63 08/31/24 10:27 85 32 H 08/31/24 10:15 77 107/75 08/31/24 10:15 77 107/75 08/31/24 10:06 73 93/59 L 08/31/24 10:00 75 08/31/24 10:00 73 32 H 93/59 L 99 08/31/24 10:00 73 93/59 L 08/31/24 10:00 74 34 H 08/31/24 09:15 78 106/51 L 08/31/24 09:00 76 99/57 L 08/31/24 08:51 78 29 H 08/31/24 08:00 89 08/31/24 08:00 99.0 F 90 29 H 123/69 97 08/31/24 08:00 40 08/31/24 08:00 90 103/69 08/31/24 08:00 90 103/69 08/31/24 07:54 88 25 H 08/31/24 07:52 80 98 Mechanical Ventilation 40 08/31/24 07:40 80 25 H 08/31/24 06:32 74 85/54 L 08/31/24 06:19 75 89/54 L 08/31/24 06:19 75 89/54 L 08/31/24 06:00 82 08/31/24 06:00 82 98/59 L 08/31/24 06:00 82 98/59 L 08/31/24 06:00 82 29 H 08/31/24 05:58 82 29 H 98/59 L 100 08/31/24 05:28 100 88 L Mechanical Ventilation 50 08/31/24 04:00 79 98/61 L 08/31/24 04:00 79 98/61 L 08/31/24 04:00 79 32 H 08/31/24 04:00 99.2 F 79 32 H 98/61 L 100 08/31/24 04:00 79 08/31/24 04:00 50 08/31/24 04:00 100 Mechanical Ventilation 50 08/31/24 02:35 85 31 H 08/31/24 02:14 85 31 H 08/31/24 02:14 100 85 L Mechanical Ventilation 50 08/31/24 02:00 89 108/63 08/31/24 02:00 86 108/63 08/31/24 02:00 86 30 H 08/31/24 02:00 86 08/31/24 02:00 86 30 H 108/63 100 08/31/24 00:28 90 33 H 08/31/24 00:28 90 33 H 08/31/24 00:00 100.1 F H 89 33 H 107/63 100 08/31/24 00:00 89 107/63 08/31/24 00:00 89 107/63 08/31/24 00:00 89 33 H 08/31/24 00:00 89 08/31/24 00:00 50 08/31/24 00:00 100 Mechanical Ventilation 50 08/30/24 22:54 100 86 L Mechanical Ventilation 50 08/30/24 22:00 82 33 H 86/56 L 100 08/30/24 22:00 82 08/30/24 22:00 82 86/56 L 08/30/24 22:00 82 86/56 L 08/30/24 22:00 82 33 H 08/30/24 20:36 100 87 L Mechanical Ventilation 50 08/30/24 20:34 87 33 H 08/30/24 20:17 87 33 H 08/30/24 20:00 81 08/30/24 20:00 99.9 F H 88 31 H 93/60 L 99 08/30/24 20:00 50 08/30/24 20:00 98 Mechanical Ventilation 50 08/30/24 20:00 88 93/60 L 08/30/24 20:00 88 93/60 L 08/30/24 20:00 88 31 H 08/30/24 19:40 89 105/67 08/30/24 18:39 87 85/52 L 08/30/24 18:34 88 85/52 L 08/30/24 18:30 87 85/52 L 08/30/24 18:00 193 H 30 H 94/59 L 98 08/30/24 18:00 999 H 08/30/24 18:00 93 30 H 08/30/24 17:17 94 98 Mechanical Ventilation 50 08/30/24 16:00 100 98/61 L 08/30/24 16:00 100 30 H 08/30/24 16:00 99 08/30/24 16:00 98.4 F 100 30 H 98/61 L 96 08/30/24 16:00 50 08/30/24 16:00 96 Mechanical Ventilation 50 08/30/24 15:27 102 H 102/66 08/30/24 14:36 100 08/30/24 14:33 125 H 95 Mechanical Ventilation 50 08/30/24 14:31 132 H 34 H 08/30/24 14:00 132 H 89/55 L 08/30/24 14:00 132 H 30 H 08/30/24 14:00 132 H 30 H 89/55 L 96 08/30/24 14:00 132 H 08/30/24 13:45 150 H 88/66 L 08/30/24 13:40 132 H 89/55 L 08/30/24 13:30 143 H 89/64 L 08/30/24 13:25 143 H 30 H 08/30/24 13:25 143 H 30 H 08/30/24 13:24 98.2 F 140 H 30 H 97/70 L 96 08/30/24 13:15 127 H 93/63 L 08/30/24 13:00 133 H 100/66 08/30/24 12:30 138 H 95/83 L Intake/Output Intake/Output: Intake & Output 08/28/24 08/29/24 08/30/24 08/31/24 23:59 23:59 23:59 23:59 Intake Total 2304.6 1939.7 2161.6 978.0 Output Total 3841 25 2315 Balance -1536.4 1914.7 -153.4 978.0 Meds/Results Medications: Active Medications Generic Name Dose Route Start Last Admin Trade Name Freq PRN Reason Stop Dose Admin Acetaminophen 650 mg 08/18/24 21:48 08/28/24 01:10 Acetaminophen Elixir 325 Mg/10.15 Ml Udc PO 650 mg Q4H PRN Administration Mild Pain (1-3) or Fever Acetylcysteine 200 mg 08/28/24 08:00 08/31/24 07:52 Acetylcysteine 20% Inhal Soln 800 Mg/4 Ml Vial INHALATION 200 mg Q6HRT TEMI Administration Dextrose 12.5 gm 08/29/24 15:45 Dextrose 50% 25 Gm/50 Ml Syringe IV PUSH PRN PRN Hypoglycemia Protocol Glucagon 1 mg 08/29/24 15:45 Glucagon For Inj 1 Mg Vial IM PRN PRN Hypoglycemia Protocol Glucose 15 gm 08/29/24 15:45 Glucose Oral Gel 15 Gm Of Glucse In 37.5 Gm Tube PO PRN PRN Hypoglycemia Protocol Heparin Sodium (Porcine) 5,500 units 08/18/24 15:05 08/18/24 23:23 Heparin Sodium 5,000 Units/Ml Vial IV PUSH 5,500 units PRN PRN Administration aPTT less than 55 seconds Heparin Sodium (Porcine) 3,000 units 08/18/24 15:05 08/23/24 10:58 Heparin Sodium 5,000 Units/Ml Vial IV PUSH 3,000 units PRN PRN Administration aPTT 55 - 70 seconds Heparin Sodium (Porcine) 5,000 units 08/29/24 07:45 08/30/24 20:56 Heparin Sodium 5,000 Units/Ml Vial SUB-Q 5,000 units Q8HR TEMI Administration Heparin Sodium/Dextrose 25,000 units in 250 mls @ 23 mls/hr 08/18/24 15:05 08/28/24 22:25 Heparin Sodium/D5w 100 Units/Ml IV CONT Infused .[id number] TEMI Titration Protocol 2,300 UNITS/HR Albumin Human 50 mls @ 999 mls/hr 08/21/24 06:28 Albutein IVPB 09/20/24 06:27 Q10M PRN HYPOTENSION Meropenem 500 mg in 100 mls @ 200 mls/hr 08/29/24 08:00 08/31/24 09:23 IVPB Infused Q24H TEMI Infusion Dexmedetomidine HCl 400 mcg in 100 mls @ 4.23 mls/hr 08/29/24 14:30 08/31/24 12:00 Precedex 400 Mcg/100 Ml IV CONT 0.2 mcg/kg/hr .[id number] TEMI 4.23 mls/hr Titration Protocol 0.2 MCG/KG/HR Insulin Human Regular 100 100 mls @ 1 mls/hr 08/29/24 16:00 08/31/24 12:00 units/ Sodium Chloride IV CONT 1 units/hr .Q24H TEMI 1 mls/hr Titration Protocol 1 UNITS/HR Dextrose 1,000 mls @ 100 mls/hr 08/29/24 15:45 Dextrose 5% 1,000 Ml IVPB PRN PRN Hypoglycemia Protocol Norepinephrine Bitartrate 8 mg in 250 mls @ 7.5 mls/hr 08/30/24 11:10 08/31/24 12:00 Levophed 8 Mg/D5w 250 Ml IV CONT 4 mcg/min .Q24H TEMI 7.5 mls/hr Titration Protocol 4 MCG/MIN Amiodarone HCl/Dextrose 360 mg in 200 mls @ 16.667 mls/hr 08/30/24 18:58 08/31/24 12:00 Nexterone 360 Mg/D5w 200 Ml IV CONT 08/31/24 18:57 0.5 mg/min .Q12H TEMI 16.67 mls/hr Infusion Protocol 0.5 MG/MIN Insulin Aspart 4 - 8 units 08/20/24 21:05 08/29/24 12:41 Insulin Aspart (*Bkc) 100 Units/Ml SUB-Q 8 units Q4HR TEMI Administration Protocol Insulin Glargine 50 units 08/29/24 09:00 08/29/24 08:22 Insulin Glargine (*Bkc) 100 Units/Ml SUB-Q 50 units Q12H TEMI Administration Ipratropium [place] 0.5 mg 08/29/24 12:22 08/29/24 12:20 Ipratropium Br 0.02% Inh Soln 0.5 Mg/2.5 Ml Vial INHALATION 0.5 mg Q6HRT PRN Administration Wheezing Levalbuterol HCl 1.25 mg 08/29/24 14:00 08/31/24 07:52 Levalbuterol Neb 1.25 Mg/3 Ml INHALATION 1.25 mg Q6HRT TEMI Administration Levalbuterol HCl 1.25 mg 08/29/24 12:22 08/29/24 12:20 Levalbuterol Neb 1.25 Mg/3 Ml INHALATION 1.25 mg Q6HRT PRN Administration Wheezing Metoclopramide HCl 10 mg 08/23/24 08:00 08/31/24 08:53 Metoclopramide Hcl 10 Mg/10 Ml Soln Udc PO 10 mg Q6H TEMI Administration Multi-Ingred Cream/Lotion/Oil/Oint 1 applic 08/18/24 09:00 08/31/24 08:57 Mineral Oil/White Petrolatum Ointment EACH EYE 1 applic Q12HR TEMI Administration Pantoprazole Sodium 40 mg 08/28/24 21:00 08/31/24 08:53 Pantoprazole Sodium Iv 40 Mg Vial IV PUSH 40 mg Q12HR TEMI Administration Polyethylene Glycol 17 gm 08/15/24 22:20 08/28/24 08:19 Polyethylene Glycol 3350 17 Gm Powd.Pack PO 17 gm DAILY PRN Administration constipation Sodium Chloride 10 ml 08/19/24 22:00 08/31/24 04:49 Central Line Flush IV PUSH 10 ml Q8HR TEMI Administration Sodium Chloride 20 ml 08/19/24 18:43 Central Line Flush IV PUSH PRN PRN after blood draws Vancomycin HCl 1 each 08/30/24 06:14 Vancomycin For Hemodialysis IVPB PRN PRN Vancomycin Protocol Radiology Results: ITS Impressions Chest CTA 08/15/24 11:11 IMPRESSION: No pulmonary embolus. No thoracic aortic dissection. Right upper lobe infiltrate with patchy bilateral airspace disease, likely inflammatory/congestive rather than infectious. Small bilateral pleural effusions with adjacent atelectasis. Renal Ultrasound 08/19/24 14:10 IMPRESSION: No hydronephrosis or renal calculi. Findings suggesting medical renal disease. Findings within the upper pole of the right kidney consistent with patient's history, as detailed above. Chest/Abdomen/Pelvis CT 08/23/24 09:58 IMPRESSION: CHEST: 1. Bilateral pneumonia which is slightly decreased compared to previous study. Bilateral pleural effusion more on the right side. ABDOMEN/PELVIS: 1. No evidence of appendicitis, diverticulitis or intestinal obstruction. 2. Bilateral tiny kidney stones. 3. Hepatomegaly. 4. No evidence of ileus seen. ADDENDUM: 08/23/24 1042 Possibility of mass in the right kidney upper pole cannot be excluded. Abdomen X-Ray 08/23/24 16:53 IMPRESSION: 1. Dobbhoff type nasoenteric feeding tube with distal tip projecting over the gastric fundus. Head CT 08/26/24 09:32 Impression: No intracranial hemorrhage, mass, or acute infarct. Atrophy and chronic white matter changes, as above. Venous Doppler Study 08/30/24 15:18 IMPRESSION: Negative bilateral lower extremity venous US. No deep vein thrombosis. Chest X-Ray 08/31/24 06:35 Impression: Moderate pulmonary edema, probably improved in the right lung. Correlate clinically for pneumonia. Small bilateral pleural effusions. Support tubes, as above. Labs Labs: Laboratory Tests 08/31/24 04:48 08/31/24 04:48 Calcium 8.9 Phosphorus 3.9 Magnesium 2.7 H Total Bilirubin 0.3 AST 42 H ALT 52 H Alkaline Phosphatase 97 Total Protein 7.0 Albumin 3.8 Random Vancomycin 21.4 H Microbiology 08/29/24 08:22 Sputum Sputum Culture - Preliminary
--- NOTE | 2024-08-31 12:28 | SUR.OPER ---
3cc propofol given by panel machine setter, Dr. Alvarado, at start of case 1226.
[2024-08-31 13:17] LABS: Glucose Point of Care 184 mg/dl (65-105)
[2024-08-31 13:17] LABS: Glucose Point of Care 187 mg/dl (65-105)
[2024-08-31 14:17] LABS: Glucose Point of Care 180 mg/dl (65-105)
[2024-08-31 15:35] LABS: Glucose Point of Care 191 mg/dl (65-105)
[2024-08-31 16:59] LABS: Glucose Point of Care 206 mg/dl (65-105)
--- NOTE | 2024-08-31 17:44 | PM.IMPN ---
Progress Note: A&P Assessment and Plan (1) DVT (deep venous thrombosis): Qualifiers: DVT location: lower extremity Affected thrombotic vein of extremity: tibial Chronicity: acute Laterality: bilateral Qualified Code(s): I82.443 - Acute embolism and thrombosis of tibial vein, bilateral Code(s): I82.409 - Acute embolism and thrombosis of unspecified deep veins of unspecified lower extremity Status: Resolved Assessment and Plan: 08/20: Bilateral venous Dopplers obtained due to swelling in the legs. Ultrasound showed Bilateral [id number] deep venous thrombosis in the left and right posterior tibial veins. S/p Heparin infusion repeat Venous doppler on 08/30 negative for DVTs (2) Anemia: Qualifiers: Anemia type: due to chronic kidney disease Chronic kidney disease stage: stage 3 (moderate) Chronic kidney disease stage 3 subtype: unspecified whether 3a or 3b Qualified Code(s): N18.30 - Chronic kidney disease, stage 3 unspecified; D63.1 - Anemia in chronic kidney disease Code(s): D64.9 - Anemia, unspecified Status: Acute Assessment and Plan: 08/28: Patient dropped her hemoglobin to 6.9 this morning -patient is on heparin infusion for her bilateral lower extremity DVTs -have asked the bedside RN to hold heparin infusion -08/28: Transfused 1 unit of packed RBCs -hemoglobin stable this morning -continue subQ heparin (prophylactic dose) (3) Acute respiratory failure with hypoxia: Code(s): J96.01 - Acute respiratory failure with hypoxia Status: Acute Assessment and Plan: Acute Respiratory failure secondary to combination of pneumonia and congestive heart failure 08/18: Intubated CT chest showed progression of lobar pneumonia with increasing bilateral pleural effusions Patient initially completed Vanc, Cefepime and Azithromycin on 08/27/24 however decompensated on 08/29 and was started on Vanc and Meropenem continue sedation and ventilation per [employer] (4) Congestive heart failure: Qualifiers: Heart failure type: unspecified Heart failure chronicity: acute on chronic Qualified Code(s): I50.9 - Heart failure, unspecified Code(s): I50.9 - Heart failure, unspecified Status: Acute Assessment and Plan: Continue dialysis (5) Non-ST elevation myocardial infarction (NSTEMI): Code(s): I21.4 - Non-ST elevation (NSTEMI) myocardial infarction Status: Acute Assessment and Plan: History of coronary disease status post PCI in the past now presented with elevated troponin. -Cardiology following -Off ASA as Hb dropped -Other heart medications on hold due to low blood pressure -Statin Hold was slightly elevated LFTs. -No plan for cardiac catheterization at this time. (6) Coronary artery disease: Code(s): I25.10 - Atherosclerotic heart disease of [place] coronary artery without angina pectoris Status: Acute Assessment and Plan: See above (7) Type 2 diabetes mellitus: Code(s): E11.9 - Type 2 diabetes mellitus without complications Status: Chronic Assessment and Plan: Sliding scale insulin 08/29: Blood sugars in the 400s despite being Lantus 50 units q.12 hours. Patient was started on insulin infusion on Lantus was discontinued -continue insulin infusion Off steroids (8) Renal failure: Qualifiers: Renal failure chronicity: acute on chronic Acute renal failure type: unspecified Chronic kidney disease stage: stage 3 (moderate) Chronic kidney disease stage 3 subtype: unspecified whether 3a or 3b Qualified Code(s): N17.9 - Acute kidney failure, unspecified; N18.30 - Chronic kidney disease, stage 3 unspecified Code(s): N19 - Unspecified kidney failure Status: Acute Assessment and Plan: Patient presented with creatinine of 1.5. Baseline creatinine unknown She has suprapubic catheter. As per son patient has had a renal tumor which was being monitored and plan was to start radiation therapy by her urology CT scan showed Subtle 2.5 cm mass at the upper pole of the right kidney consistent with provided history of renal tumor. Calcification is at the bilateral kidneys which appear linear and likely atherosclerotic although could not exclude nonobstructing nephrolithiasis. No hydronephrosis in either kidney. continue dialysis Nephrology following (9) Pneumonia: Qualifiers: Laterality: bilateral Lung location: lower lobe of lung Pneumonia type: due to methicillin-resistant Staphylococcus aureus (MRSA) Qualified Code(s): J15.212 - Pneumonia due to Methicillin resistant Staphylococcus aureus Code(s): J18.9 - Pneumonia, unspecified organism Status: Acute Assessment and Plan: See above (10) Kidney mass: Code(s): N28.89 - Other specified disorders of kidney and ureter Status: Acute Assessment and Plan: Patient's son reports history of kidney mass which is being monitored as it was too big to be removed without total nephrectomy. He states that patient was supposed to get radiation therapy in a month or so before she fractured her ankle. CT scan shows 2.5 cm renal mass on the right side and no hydronephrosis. No intervention at this time (11) Septic shock: Code(s): A41.9 - Sepsis, unspecified organism; R65.21 - Severe sepsis with septic shock Status: Acute Assessment and Plan: Off all pressors Patient requires Levophed mainly when she is receiving dialysis -continue antibiotics as above (12) Ileus: Code(s): K56.7 - Ileus, unspecified Status: Acute Assessment and Plan: RESOLVED now on tube feeding PEG tube placed today (13) Atrial fibrillation with RVR: Code(s): I48.91 - Unspecified atrial fibrillation Status: Acute Assessment and Plan: Patient went into AFib with RVR after hemodialysis.. She was started on amiodarone infusion. She has converted to sinus bradycardia, amiodarone was discontinued on 08/26/2024 Currently off heparin infusion due to anemia 08/30: Patient went to AFib RVR during dialysis, with rates in the 140s to 150s, started patient on amiodarone bolus and infusion, will let the infusion complete -continue prophylactic heparin SQ (14) Encephalopathy: Code(s): G93.40 - Encephalopathy, unspecified Status: Acute Assessment and Plan: CT head no acute change s Continue Sedation proctocol per motion picture commentator Plan Mild esophageal candidiasis per EGD today will defer to motion picture commentator for treament DVT prophylaxis -heparin subQ Stress ulcer prophylaxis -increase Protonix to q.12 hours Nutrition - tube feeds currently on hold as patient will be getting a PEG tube placement today Code Status - Full Code Subjective Date/time seen: 08/31/24 17:44 Interval history: Still intubated and sedated Review of Systems Review of Systems: 12 systems were reviewed and are negative except for as per HPI. ROS unobtainable: Yes unobtainable due to endotracheal tube, unobtainable due to medical condition and unobtainable due to mental status Exam Narrative: General: Pt is sedated, intubated and on mechanical ventilation HEENT: Pupils equal and reactive, sclera is clear, ETT in place Lungs/Chest: Trachea central Coarse BS B/L, bilateral rales, no wheezing, adequate air entry Cardiac: RRR. Normal S1 S2. No murmurs Abdomen: Soft, nontender, nondistended, hypoactive bowel sounds Extremities: Bilateral pitting edema, palpable pedal pulse : Butt in place Neurologic: Currently intubated, on Precedex infusion, does not open her eyes or follow simple commands. Patient does not withdraw to pain Objective Data Vital Signs Vital Signs: Vital Signs - 24 hr 08/30/24 18:00 08/30/24 18:00 08/30/24 18:00 Temperature Pulse Rate 93 999 H 193 H Respiratory Rate 30 H 30 H Blood Pressure 94/59 L Pulse Oximetry 98 Oxygen Delivery Fraction of Inspired Oxygen 08/30/24 18:30 08/30/24 18:34 08/30/24 18:39 Temperature Pulse Rate 87 88 87 Respiratory Rate Blood Pressure 85/52 L 85/52 L 85/52 L Pulse Oximetry Oxygen Delivery Fraction of Inspired Oxygen 08/30/24 19:40 08/30/24 20:00 08/30/24 20:00 Temperature Pulse Rate 89 88 88 Respiratory Rate 31 H Blood Pressure 105/67 93/60 L Pulse Oximetry Oxygen Delivery Fraction of Inspired Oxygen 08/30/24 20:00 08/30/24 20:00 08/30/24 20:00 Temperature Pulse Rate 88 Respiratory Rate Blood Pressure 93/60 L Pulse Oximetry 98 Oxygen Delivery Mechanical Ventilation Fraction of Inspired Oxygen 50 50 08/30/24 20:00 08/30/24 20:00 08/30/24 20:17 Temperature 99.9 F H Pulse Rate 88 81 87 Respiratory Rate 31 H 33 H Blood Pressure 93/60 L Pulse Oximetry 99 Oxygen Delivery Fraction of Inspired Oxygen 08/30/24 20:34 08/30/24 20:36 08/30/24 22:00 Temperature Pulse Rate 87 100 82 Respiratory Rate 33 H 33 H Blood Pressure Pulse Oximetry 87 L Oxygen Delivery Mechanical Ventilation Fraction of Inspired Oxygen 50 08/30/24 22:00 08/30/24 22:00 08/30/24 22:00 Temperature Pulse Rate 82 82 82 Respiratory Rate Blood Pressure 86/56 L 86/56 L Pulse Oximetry Oxygen Delivery Fraction of Inspired Oxygen 08/30/24 22:00 08/30/24 22:54 08/31/24 00:00 Temperature Pulse Rate 82 100 Respiratory Rate 33 H Blood Pressure 86/56 L Pulse Oximetry 100 86 L 100 Oxygen Delivery Mechanical Ventilation Mechanical Ventilation Fraction of Inspired Oxygen 50 50 08/31/24 00:00 08/31/24 00:00 08/31/24 00:00 Temperature Pulse Rate 89 89 Respiratory Rate 33 H Blood Pressure Pulse Oximetry Oxygen Delivery Fraction of Inspired Oxygen 50 08/31/24 00:00 08/31/24 00:00 08/31/24 00:00 Temperature 100.1 F H Pulse Rate 89 89 89 Respiratory Rate 33 H Blood Pressure 107/63 107/63 107/63 Pulse Oximetry 100 Oxygen Delivery Fraction of Inspired Oxygen 08/31/24 00:28 08/31/24 00:28 08/31/24 02:00 Temperature Pulse Rate 90 90 86 Respiratory Rate 33 H 33 H 30 H Blood Pressure 108/63 Pulse Oximetry 100 Oxygen Delivery Fraction of Inspired Oxygen 08/31/24 02:00 08/31/24 02:00 08/31/24 02:00 Temperature Pulse Rate 86 86 86 Respiratory Rate 30 H Blood Pressure 108/63 Pulse Oximetry Oxygen Delivery Fraction of Inspired Oxygen 08/31/24 02:00 08/31/24 02:14 08/31/24 02:14 Temperature Pulse Rate 89 100 85 Respiratory Rate 31 H Blood Pressure 108/63 Pulse Oximetry 85 L Oxygen Delivery Mechanical Ventilation Fraction of Inspired Oxygen 50 08/31/24 02:35 08/31/24 04:00 08/31/24 04:00 Temperature Pulse Rate 85 Respiratory Rate 31 H Blood Pressure Pulse Oximetry 100 Oxygen Delivery Mechanical Ventilation Fraction of Inspired Oxygen 50 50 08/31/24 04:00 08/31/24 04:00 08/31/24 04:00 Temperature 99.2 F Pulse Rate 79 79 79 Respiratory Rate 32 H 32 H Blood Pressure 98/61 L Pulse Oximetry 100 Oxygen Delivery Fraction of Inspired Oxygen 08/31/24 04:00 08/31/24 04:00 08/31/24 05:28 Temperature Pulse Rate 79 79 100 Respiratory Rate Blood Pressure 98/61 L 98/61 L Pulse Oximetry 88 L Oxygen Delivery Mechanical Ventilation Fraction of Inspired Oxygen 50 08/31/24 05:58 08/31/24 06:00 08/31/24 06:00 Temperature Pulse Rate 82 82 82 Respiratory Rate 29 H 29 H Blood Pressure 98/59 L 98/59 L Pulse Oximetry 100 Oxygen Delivery Fraction of Inspired Oxygen 08/31/24 06:00 08/31/24 06:00 08/31/24 06:19 Temperature Pulse Rate 82 82 75 Respiratory Rate Blood Pressure 98/59 L 89/54 L Pulse Oximetry Oxygen Delivery Fraction of Inspired Oxygen 08/31/24 06:19 08/31/24 06:32 08/31/24 07:40 Temperature Pulse Rate 75 74 80 Respiratory Rate 25 H Blood Pressure 89/54 L 85/54 L Pulse Oximetry Oxygen Delivery Fraction of Inspired Oxygen 08/31/24 07:52 08/31/24 07:54 08/31/24 08:00 Temperature Pulse Rate 80 88 90 Respiratory Rate 25 H Blood Pressure 103/69 Pulse Oximetry 98 Oxygen Delivery Mechanical Ventilation Fraction of Inspired Oxygen 40 08/31/24 08:00 08/31/24 08:00 08/31/24 08:00 Temperature 99.0 F Pulse Rate 90 90 Respiratory Rate 29 H Blood Pressure 103/69 123/69 Pulse Oximetry 97 Oxygen Delivery Fraction of Inspired Oxygen 40 08/31/24 08:00 08/31/24 08:51 08/31/24 09:00 Temperature Pulse Rate 89 78 76 Respiratory Rate 29 H Blood Pressure 99/57 L Pulse Oximetry Oxygen Delivery Fraction of Inspired Oxygen 08/31/24 09:15 08/31/24 10:00 08/31/24 10:00 Temperature Pulse Rate 78 74 73 Respiratory Rate 34 H Blood Pressure 106/51 L 93/59 L Pulse Oximetry Oxygen Delivery Fraction of Inspired Oxygen 08/31/24 10:00 08/31/24 10:00 08/31/24 10:06 Temperature Pulse Rate 73 75 73 Respiratory Rate 32 H Blood Pressure 93/59 L 93/59 L Pulse Oximetry 99 Oxygen Delivery Fraction of Inspired Oxygen 08/31/24 10:15 08/31/24 10:15 08/31/24 10:27 Temperature Pulse Rate 77 77 85 Respiratory Rate 32 H Blood Pressure 107/75 107/75 Pulse Oximetry Oxygen Delivery Fraction of Inspired Oxygen 08/31/24 10:30 08/31/24 10:32 08/31/24 10:45 Temperature Pulse Rate 84 78 86 Respiratory Rate 30 H Blood Pressure 109/63 Pulse Oximetry 98 Oxygen Delivery Mechanical Ventilation Fraction of Inspired Oxygen 40 08/31/24 12:00 08/31/24 12:00 08/31/24 12:00 Temperature Pulse Rate 86 86 86 Respiratory Rate 30 H Blood Pressure 113/64 113/64 Pulse Oximetry Oxygen Delivery Fraction of Inspired Oxygen 08/31/24 12:00 08/31/24 12:00 08/31/24 12:03 Temperature 98.3 F Pulse Rate 86 85 Respiratory Rate 30 H Blood Pressure 110/60 Pulse Oximetry 98 Oxygen Delivery Mechanical Ventilation Fraction of Inspired Oxygen 40 08/31/24 14:00 08/31/24 14:00 08/31/24 14:00 Temperature Pulse Rate 86 86 86 Respiratory Rate 29 H 29 H Blood Pressure 108/66 Pulse Oximetry 98 Oxygen Delivery Fraction of Inspired Oxygen 08/31/24 14:00 08/31/24 14:00 08/31/24 14:15 Temperature Pulse Rate 86 86 84 Respiratory Rate 30 H Blood Pressure 108/66 108/66 Pulse Oximetry Oxygen Delivery Fraction of Inspired Oxygen 08/31/24 14:15 08/31/24 14:15 08/31/24 14:18 Temperature Pulse Rate 85 85 89 Respiratory Rate 31 H Blood Pressure 111/67 Pulse Oximetry 97 Oxygen Delivery Mechanical Ventilation Fraction of Inspired Oxygen 35 08/31/24 14:30 08/31/24 16:00 08/31/24 16:00 Temperature 98.8 F Pulse Rate 85 77 Respiratory Rate 28 H Blood Pressure 96/58 L 110/67 Pulse Oximetry 99 Oxygen Delivery Fraction of Inspired Oxygen 35 08/31/24 16:00 08/31/24 16:00 08/31/24 16:40 Temperature Pulse Rate 85 85 77 Respiratory Rate 28 H Blood Pressure 110/67 110/67 Pulse Oximetry Oxygen Delivery Fraction of Inspired Oxygen 08/31/24 16:45 08/31/24 17:00 08/31/24 17:04 Temperature Pulse Rate 76 77 79 Respiratory Rate Blood Pressure 101/64 100/58 L Pulse Oximetry 99 Oxygen Delivery Mechanical Ventilation Fraction of Inspired Oxygen 30 Intake/Output Intake/Output: Intake & Output 08/28/24 08/29/24 08/30/24 08/31/24 23:59 23:59 23:59 23:59 Intake Total 2304.6 1939.7 2161.6 1093.4 Output Total 3841 25 2315 Balance -1536.4 1914.7 -153.4 1093.4 Meds/Results Medications: Active Medications Generic Name Dose Route Start Last Admin Trade Name Freq PRN Reason Stop Dose Admin Acetaminophen 650 mg 08/18/24 21:48 08/28/24 01:10 Acetaminophen Elixir 325 Mg/10.15 Ml Udc PO 650 mg Q4H PRN Administration Mild Pain (1-3) or Fever Acetylcysteine 200 mg 08/28/24 08:00 08/31/24 14:15 Acetylcysteine 20% Inhal Soln 800 Mg/4 Ml Vial INHALATION 200 mg Q6HRT TEMI Administration Dextrose 12.5 gm 08/29/24 15:45 Dextrose 50% 25 Gm/50 Ml Syringe IV PUSH PRN PRN Hypoglycemia Protocol Glucagon 1 mg 08/29/24 15:45 Glucagon For Inj 1 Mg Vial IM PRN PRN Hypoglycemia Protocol Glucose 15 gm 08/29/24 15:45 Glucose Oral Gel 15 Gm Of Glucse In 37.5 Gm Tube PO PRN PRN Hypoglycemia Protocol Heparin Sodium (Porcine) 5,500 units 08/18/24 15:05 08/18/24 23:23 Heparin Sodium 5,000 Units/Ml Vial IV PUSH 5,500 units PRN PRN Administration aPTT less than 55 seconds Heparin Sodium (Porcine) 3,000 units 08/18/24 15:05 08/23/24 10:58 Heparin Sodium 5,000 Units/Ml Vial IV PUSH 3,000 units PRN PRN Administration aPTT 55 - 70 seconds Heparin Sodium (Porcine) 5,000 units 08/29/24 07:45 08/30/24 20:56 Heparin Sodium 5,000 Units/Ml Vial SUB-Q 5,000 units Q8HR TEMI Administration Heparin Sodium/Dextrose 25,000 units in 250 mls @ 23 mls/hr 08/18/24 15:05 08/28/24 22:25 Heparin Sodium/D5w 100 Units/Ml IV CONT Infused .[id number] TEMI Titration Protocol 2,300 UNITS/HR Albumin Human 50 mls @ 999 mls/hr 08/21/24 06:28 Albutein IVPB 09/20/24 06:27 Q10M PRN HYPOTENSION Meropenem 500 mg in 100 mls @ 200 mls/hr 08/29/24 08:00 08/31/24 09:23 IVPB Infused Q24H TEMI Infusion Dexmedetomidine HCl 400 mcg in 100 mls @ 2.115 mls/hr 08/29/24 14:30 08/31/24 16:40 Precedex 400 Mcg/100 Ml IV CONT Infused .[id number] TEMI Titration Protocol 0.1 MCG/KG/HR Insulin Human Regular 100 100 mls @ 1 mls/hr 08/29/24 16:00 08/31/24 16:42 units/ Sodium Chloride IV CONT 1 units/hr .Q24H TEMI 1 mls/hr Titration Protocol 1 UNITS/HR Dextrose 1,000 mls @ 100 mls/hr 08/29/24 15:45 Dextrose 5% 1,000 Ml IVPB PRN PRN Hypoglycemia Protocol Norepinephrine Bitartrate 8 mg in 250 mls @ 3.75 mls/hr 08/30/24 11:10 08/31/24 17:00 Levophed 8 Mg/D5w 250 Ml IV CONT 2 mcg/min .Q24H TEMI 3.75 mls/hr Titration Protocol 2 MCG/MIN Amiodarone HCl/Dextrose 360 mg in 200 mls @ 16.667 mls/hr 08/30/24 18:58 08/31/24 16:00 Nexterone 360 Mg/D5w 200 Ml IV CONT 08/31/24 18:57 0.5 mg/min .Q12H TEMI 16.67 mls/hr Infusion Protocol 0.5 MG/MIN Insulin Aspart 4 - 8 units 08/20/24 21:05 08/29/24 12:41 Insulin Aspart (*Bkc) 100 Units/Ml SUB-Q 8 units Q4HR TEMI Administration Protocol Insulin Glargine 50 units 08/29/24 09:00 08/29/24 08:22 Insulin Glargine (*Bkc) 100 Units/Ml SUB-Q 50 units Q12H TEMI Administration Ipratropium [place] 0.5 mg 08/29/24 12:22 08/29/24 12:20 Ipratropium Br 0.02% Inh Soln 0.5 Mg/2.5 Ml Vial INHALATION 0.5 mg Q6HRT PRN Administration Wheezing Levalbuterol HCl 1.25 mg 08/29/24 14:00 08/31/24 14:15 Levalbuterol Neb 1.25 Mg/3 Ml INHALATION 1.25 mg Q6HRT TEMI Administration Levalbuterol HCl 1.25 mg 08/29/24 12:22 08/29/24 12:20 Levalbuterol Neb 1.25 Mg/3 Ml INHALATION 1.25 mg Q6HRT PRN Administration Wheezing Metoclopramide HCl 10 mg 08/23/24 08:00 08/31/24 14:34 Metoclopramide Hcl 10 Mg/10 Ml Soln Udc PO 10 mg Q6H TEMI Administration Multi-Ingred Cream/Lotion/Oil/Oint 1 applic 08/18/24 09:00 08/31/24 08:57 Mineral Oil/White Petrolatum Ointment EACH EYE 1 applic Q12HR TEMI Administration Pantoprazole Sodium 40 mg 08/28/24 21:00 08/31/24 08:53 Pantoprazole Sodium Iv 40 Mg Vial IV PUSH 40 mg Q12HR TEMI Administration Polyethylene Glycol 17 gm 08/15/24 22:20 08/28/24 08:19 Polyethylene Glycol 3350 17 Gm Powd.Pack PO 17 gm DAILY PRN Administration constipation Sodium Chloride 10 ml 08/19/24 22:00 08/31/24 13:57 Central Line Flush IV PUSH 10 ml Q8HR TEMI Administration Sodium Chloride 20 ml 08/19/24 18:43 Central Line Flush IV PUSH PRN PRN after blood draws Vancomycin HCl 1 each 08/30/24 06:14 Vancomycin For Hemodialysis IVPB PRN PRN Vancomycin Protocol Radiology Results: ITS Impressions Chest CTA 08/15/24 11:11 IMPRESSION: No pulmonary embolus. No thoracic aortic dissection. Right upper lobe infiltrate with patchy bilateral airspace disease, likely inflammatory/congestive rather than infectious. Small bilateral pleural effusions with adjacent atelectasis. Renal Ultrasound 08/19/24 14:10 IMPRESSION: No hydronephrosis or renal calculi. Findings suggesting medical renal disease. Findings within the upper pole of the right kidney consistent with patient's history, as detailed above. Chest/Abdomen/Pelvis CT 08/23/24 09:58 IMPRESSION: CHEST: 1. Bilateral pneumonia which is slightly decreased compared to previous study. Bilateral pleural effusion more on the right side. ABDOMEN/PELVIS: 1. No evidence of appendicitis, diverticulitis or intestinal obstruction. 2. Bilateral tiny kidney stones. 3. Hepatomegaly. 4. No evidence of ileus seen. ADDENDUM: 08/23/24 1042 Possibility of mass in the right kidney upper pole cannot be excluded. Abdomen X-Ray 08/23/24 16:53 IMPRESSION: 1. Dobbhoff type nasoenteric feeding tube with distal tip projecting over the gastric fundus. Head CT 08/26/24 09:32 Impression: No intracranial hemorrhage, mass, or acute infarct. Atrophy and chronic white matter changes, as above. Venous Doppler Study 08/30/24 15:18 IMPRESSION: Negative bilateral lower extremity venous US. No deep vein thrombosis. Chest X-Ray 08/31/24 06:35 Impression: Moderate pulmonary edema, probably improved in the right lung. Correlate clinically for pneumonia. Small bilateral pleural effusions. Support tubes, as above. Labs Labs: Laboratory Results - last 24 hr 08/30/24 08/30/24 08/30/24 18:28 19:42 20:43 WBC RBC Hgb Hct MCV MCH MCHC RDW Plt Count MPV Immature Gran % (Auto) Neut % (Auto) Lymph % (Auto) Lee % (Auto) Eos % (Auto) Baso % (Auto) Lymph # (Auto) Lee # (Auto) Eos # (Auto) Baso # (Auto) Abs Immat Gran (auto) Absolute Neuts (auto) Absolute Nucleated RBC Total Counted Neutrophils % (Manual) Band Neutrophils % Lymphocytes % (Manual) Monocytes % (Manual) Nucleated RBC % Abs Neuts (Manual) Abs Lymphs (Manual) Abs Monocytes (Manual) Nucleated RBCs Platelet Estimate Polychromasia Anisocytosis Stomatocytes Schistocytes Puncture Site ABG pH ABG pCO2 ABG pO2 ABG PO2/FiO2 Ratio ABG HCO3 ABG O2 Saturation ABG O2 Content ABG Base Excess A-a Gradient Oxyhemoglobin Carboxyhemoglobin Methemoglobin Reduced Hemoglobin Total Hemoglobin O2 Delivery Device O2 Liters/Min Minute Volume Vent Rate Vent Mode FiO2 Tidal Volume PEEP Peak Inspir Pressure Pressure Support Sodium Potassium Chloride Carbon Dioxide Anion Gap BUN Creatinine Estim Creat Clear Calc Estimated GFR Glucose POC Capillary Glucose 276 H 239 H 250 H Calcium Phosphorus Magnesium Total Bilirubin AST ALT Alkaline Phosphatase Total Protein Albumin Random Vancomycin 08/30/24 08/30/24 08/30/24 21:35 22:43 23:39 WBC RBC Hgb Hct MCV MCH MCHC RDW Plt Count MPV Immature Gran % (Auto) Neut % (Auto) Lymph % (Auto) Lee % (Auto) Eos % (Auto) Baso % (Auto) Lymph # (Auto) Lee # (Auto) Eos # (Auto) Baso # (Auto) Abs Immat Gran (auto) Absolute Neuts (auto) Absolute Nucleated RBC Total Counted Neutrophils % (Manual) Band Neutrophils % Lymphocytes % (Manual) Monocytes % (Manual) Nucleated RBC % Abs Neuts (Manual) Abs Lymphs (Manual) Abs Monocytes (Manual) Nucleated RBCs Platelet Estimate Polychromasia Anisocytosis Stomatocytes Schistocytes Puncture Site ABG pH ABG pCO2 ABG pO2 ABG PO2/FiO2 Ratio ABG HCO3 ABG O2 Saturation ABG O2 Content ABG Base Excess A-a Gradient Oxyhemoglobin Carboxyhemoglobin Methemoglobin Reduced Hemoglobin Total Hemoglobin O2 Delivery Device O2 Liters/Min Minute Volume Vent Rate Vent Mode FiO2 Tidal Volume PEEP Peak Inspir Pressure Pressure Support Sodium Potassium Chloride Carbon Dioxide Anion Gap BUN Creatinine Estim Creat Clear Calc Estimated GFR Glucose POC Capillary Glucose 273 H 234 H 247 H Calcium Phosphorus Magnesium Total Bilirubin AST ALT Alkaline Phosphatase Total Protein Albumin Random Vancomycin 08/31/24 08/31/24 08/31/24 00:25 01:37 02:25 WBC RBC Hgb Hct MCV MCH MCHC RDW Plt Count MPV Immature Gran % (Auto) Neut % (Auto) Lymph % (Auto) Lee % (Auto) Eos % (Auto) Baso % (Auto) Lymph # (Auto) Lee # (Auto) Eos # (Auto) Baso # (Auto) Abs Immat Gran (auto) Absolute Neuts (auto) Absolute Nucleated RBC Total Counted Neutrophils % (Manual) Band Neutrophils % Lymphocytes % (Manual) Monocytes % (Manual) Nucleated RBC % Abs Neuts (Manual) Abs Lymphs (Manual) Abs Monocytes (Manual) Nucleated RBCs Platelet Estimate Polychromasia Anisocytosis Stomatocytes Schistocytes Puncture Site ABG pH ABG pCO2 ABG pO2 ABG PO2/FiO2 Ratio ABG HCO3 ABG O2 Saturation ABG O2 Content ABG Base Excess A-a Gradient Oxyhemoglobin Carboxyhemoglobin Methemoglobin Reduced Hemoglobin Total Hemoglobin O2 Delivery Device O2 Liters/Min Minute Volume Vent Rate Vent Mode FiO2 Tidal Volume PEEP Peak Inspir Pressure Pressure Support Sodium Potassium Chloride Carbon Dioxide Anion Gap BUN Creatinine Estim Creat Clear Calc Estimated GFR Glucose POC Capillary Glucose 221 H 207 H 162 H Calcium Phosphorus Magnesium Total Bilirubin AST ALT Alkaline Phosphatase Total Protein Albumin Random Vancomycin 08/31/24 08/31/24 08/31/24 03:31 04:38 04:48 WBC 16.4 H RBC 3.29 L Hgb 8.6 L Hct 28.1 L MCV 85.4 MCH 26.1 MCHC 30.6 L RDW 19.5 H Plt Count 193 MPV 10.9 H Immature Gran % (Auto) Not Reportable Neut % (Auto) Not Reportable Lymph % (Auto) Not Reportable Lee % (Auto) Not Reportable Eos % (Auto) Not Reportable Baso % (Auto) Not Reportable Lymph # (Auto) Not Reportable Lee # (Auto) Not Reportable Eos # (Auto) Not Reportable Baso # (Auto) Not Reportable Abs Immat Gran (auto) Not Reportable Absolute Neuts (auto) Not Reportable Absolute Nucleated RBC Not Reportable Total Counted 100 Neutrophils % (Manual) 78 H Band Neutrophils % 8 H Lymphocytes % (Manual) 7.0 L Monocytes % (Manual) 7 Nucleated RBC % Not Reportable Abs Neuts (Manual) 14.10 H Abs Lymphs (Manual) 1.14 Abs Monocytes (Manual) 1.14 H Nucleated RBCs 2 Platelet Estimate Adequate Polychromasia 1+ Anisocytosis 1+ Stomatocytes 1+ Schistocytes None seen Puncture Site ABG pH ABG pCO2 ABG pO2 ABG PO2/FiO2 Ratio ABG HCO3 ABG O2 Saturation ABG O2 Content ABG Base Excess A-a Gradient Oxyhemoglobin Carboxyhemoglobin Methemoglobin Reduced Hemoglobin Total Hemoglobin O2 Delivery Device O2 Liters/Min Minute Volume Vent Rate Vent Mode FiO2 Tidal Volume PEEP Peak Inspir Pressure Pressure Support Sodium 137 Potassium 3.9 Chloride 92 L Carbon Dioxide 29 Anion Gap 16 H BUN 69 H D Creatinine 3.25 H Estim Creat Clear Calc 14 Estimated GFR 14 L Glucose 174 H POC Capillary Glucose 184 H 178 H Calcium 8.9 Phosphorus 3.9 Magnesium 2.7 H Total Bilirubin 0.3 AST 42 H ALT 52 H Alkaline Phosphatase 97 Total Protein 7.0 Albumin 3.8 Random Vancomycin 21.4 H 08/31/24 08/31/24 08/31/24 05:24 05:38 06:22 WBC RBC Hgb Hct MCV MCH MCHC RDW Plt Count MPV Immature Gran % (Auto) Neut % (Auto) Lymph % (Auto) Lee % (Auto) Eos % (Auto) Baso % (Auto) Lymph # (Auto) Lee # (Auto) Eos # (Auto) Baso # (Auto) Abs Immat Gran (auto) Absolute Neuts (auto) Absolute Nucleated RBC Total Counted Neutrophils % (Manual) Band Neutrophils % Lymphocytes % (Manual) Monocytes % (Manual) Nucleated RBC % Abs Neuts (Manual) Abs Lymphs (Manual) Abs Monocytes (Manual) Nucleated RBCs Platelet Estimate Polychromasia Anisocytosis Stomatocytes Schistocytes Puncture Site Right radial ABG pH 7.468 H ABG pCO2 41.6 ABG pO2 111.0 H ABG PO2/FiO2 Ratio 2.22 ABG HCO3 29.5 H ABG O2 Saturation 98.3 ABG O2 Content 13.5 L ABG Base Excess 5.3 A-a Gradient 198.7 Oxyhemoglobin 98.2 Carboxyhemoglobin 0.2 Methemoglobin 0.0 Reduced Hemoglobin 1.6 Total Hemoglobin 9.6 L O2 Delivery Device Ventilator O2 Liters/Min Not Reportable Minute Volume Not Reportable Vent Rate 18 Vent Mode Cmv FiO2 50 Tidal Volume 320 PEEP 8 Peak Inspir Pressure Not Reportable Pressure Support Not Reportable Sodium Potassium Chloride Carbon Dioxide Anion Gap BUN Creatinine Estim Creat Clear Calc Estimated GFR Glucose POC Capillary Glucose 160 H 187 H Calcium Phosphorus Magnesium Total Bilirubin AST ALT Alkaline Phosphatase Total Protein Albumin Random Vancomycin 08/31/24 08/31/24 08/31/24 07:46 08:50 10:03 WBC RBC Hgb Hct MCV MCH MCHC RDW Plt Count MPV Immature Gran % (Auto) Neut % (Auto) Lymph % (Auto) Lee % (Auto) Eos % (Auto) Baso % (Auto) Lymph # (Auto) Lee # (Auto) Eos # (Auto) Baso # (Auto) Abs Immat Gran (auto) Absolute Neuts (auto) Absolute Nucleated RBC Total Counted Neutrophils % (Manual) Band Neutrophils % Lymphocytes % (Manual) Monocytes % (Manual) Nucleated RBC % Abs Neuts (Manual) Abs Lymphs (Manual) Abs Monocytes (Manual) Nucleated RBCs Platelet Estimate Polychromasia Anisocytosis Stomatocytes Schistocytes Puncture Site ABG pH ABG pCO2 ABG pO2 ABG PO2/FiO2 Ratio ABG HCO3 ABG O2 Saturation ABG O2 Content ABG Base Excess A-a Gradient Oxyhemoglobin Carboxyhemoglobin Methemoglobin Reduced Hemoglobin Total Hemoglobin O2 Delivery Device O2 Liters/Min Minute Volume Vent Rate Vent Mode FiO2 Tidal Volume PEEP Peak Inspir Pressure Pressure Support Sodium Potassium Chloride Carbon Dioxide Anion Gap BUN Creatinine Estim Creat Clear Calc Estimated GFR Glucose POC Capillary Glucose 166 H 195 H 200 H Calcium Phosphorus Magnesium Total Bilirubin AST ALT Alkaline Phosphatase Total Protein Albumin Random Vancomycin 0408/31/24 08/31/24 11:05 11:56 13:15 WBC RBC Hgb Hct MCV MCH MCHC RDW Plt Count MPV Immature Gran % (Auto) Neut % (Auto) Lymph % (Auto) Lee % (Auto) Eos % (Auto) Baso % (Auto) Lymph # (Auto) Lee # (Auto) Eos # (Auto) Baso # (Auto) Abs Immat Gran (auto) Absolute Neuts (auto) Absolute Nucleated RBC Total Counted Neutrophils % (Manual) Band Neutrophils % Lymphocytes % (Manual) Monocytes % (Manual) Nucleated RBC % Abs Neuts (Manual) Abs Lymphs (Manual) Abs Monocytes (Manual) Nucleated RBCs Platelet Estimate Polychromasia Anisocytosis Stomatocytes Schistocytes Puncture Site ABG pH ABG pCO2 ABG pO2 ABG PO2/FiO2 Ratio ABG HCO3 ABG O2 Saturation ABG O2 Content ABG Base Excess A-a Gradient Oxyhemoglobin Carboxyhemoglobin Methemoglobin Reduced Hemoglobin Total Hemoglobin O2 Delivery Device O2 Liters/Min Minute Volume Vent Rate Vent Mode FiO2 Tidal Volume PEEP Peak Inspir Pressure Pressure Support Sodium Potassium Chloride Carbon Dioxide Anion Gap BUN Creatinine Estim Creat Clear Calc Estimated GFR Glucose POC Capillary Glucose 177 H 187 H 184 H Calcium Phosphorus Magnesium Total Bilirubin AST ALT Alkaline Phosphatase Total Protein Albumin Random Vancomycin 08/31/24 08/31/24 08/31/24 14:07 15:30 16:44 WBC RBC Hgb Hct MCV MCH MCHC RDW Plt Count MPV Immature Gran % (Auto) Neut % (Auto) Lymph % (Auto) Lee % (Auto) Eos % (Auto) Baso % (Auto) Lymph # (Auto) Lee # (Auto) Eos # (Auto) Baso # (Auto) Abs Immat Gran (auto) Absolute Neuts (auto) Absolute Nucleated RBC Total Counted Neutrophils % (Manual) Band Neutrophils % Lymphocytes % (Manual) Monocytes % (Manual) Nucleated RBC % Abs Neuts (Manual) Abs Lymphs (Manual) Abs Monocytes (Manual) Nucleated RBCs Platelet Estimate Polychromasia Anisocytosis Stomatocytes Schistocytes Puncture Site ABG pH ABG pCO2 ABG pO2 ABG PO2/FiO2 Ratio ABG HCO3 ABG O2 Saturation ABG O2 Content ABG Base Excess A-a Gradient Oxyhemoglobin Carboxyhemoglobin Methemoglobin Reduced Hemoglobin Total Hemoglobin O2 Delivery Device O2 Liters/Min Minute Volume Vent Rate Vent Mode FiO2 Tidal Volume PEEP Peak Inspir Pressure Pressure Support Sodium Potassium Chloride Carbon Dioxide Anion Gap BUN Creatinine Estim Creat Clear Calc Estimated GFR Glucose POC Capillary Glucose 180 H 191 H 206 H Calcium Phosphorus Magnesium Total Bilirubin AST ALT Alkaline Phosphatase Total Protein Albumin Random Vancomycin Quality VTE Prophylaxis VTE prophylaxis: mechanical ordered and pharmacologic ordered
[2024-08-31 17:52] LABS: Glucose Point of Care 210 mg/dl (65-105)
[2024-08-31 18:45] LABS: Glucose Point of Care 204 mg/dl (65-105)
[2024-08-31 19:45] LABS: Glucose Point of Care 232 mg/dl (65-105)
[2024-08-31 20:40] LABS: Glucose Point of Care 233 mg/dl (65-105)
[2024-08-31 21:35] LABS: Glucose Point of Care 241 mg/dl (65-105)
[2024-08-31 22:30] LABS: Glucose Point of Care 284 mg/dl (65-105)
[2024-08-31 23:41] LABS: Glucose Point of Care 302 mg/dl (65-105)
[2024-09-01] VITALS (63 sets, daily range): BP systolic 85–121; BP diastolic 52–83; PULSE 79–144; RESP 28–36; TEMP 36.9–38.2; O2SAT 92–100
[2024-09-01 00:31] LABS: Glucose Point of Care 283 mg/dl (65-105)
[2024-09-01] MEDS: LEVALBUTEROL NEB 1.25 MG/3 ML INHALATION ×4 (01:15→20:39)
[2024-09-01] MEDS: ACETYLCYSTEINE 20% INHAL SOLN 800 MG/4 ML VIAL 200 MG INHALATION ×4 (01:16→20:40)
[2024-09-01 01:29] LABS: Glucose Point of Care 244 mg/dl (65-105)
[2024-09-01 02:25] LABS: Glucose Point of Care 233 mg/dl (65-105)
[2024-09-01 03:41] LABS: Glucose Point of Care 204 mg/dl (65-105)
[2024-09-01 04:42] LABS: Glucose Point of Care 171 mg/dl (65-105)
[2024-09-01 04:46] LABS: Alveolar/Arterial O2 Gradient 87.7 mmHg; Base Excess ABG 1.2 mEq/l (+/-2.0); Carboxyhemoglobin 0.2 % THb (0-2.0); Fractional Inspired Oxygen 30 %; HCO3 ABG 24.5 mEq/l (22.0-26.0); Methemoglobin ABG 0.1 %THb (0-1.5); Oxygen Content ABG 12.1 %vol (16.0-22.0); Oxygen Saturation ABG 97.3 % (95.0-100.0); Oxyhemoglobin 96.5 % THb (90.0-100.0); PCO2 ABG 33.4 mmHg (35.0-45.0); Reduced Hemoglobin 3.2 %THb (0-5.0); Site Drawn LEFT RADIAL; Total Hemoglobin 8.8 g/dL (12.0-18.0); pH ABG 7.483 (7.350-7.450)
[2024-09-01 04:47] LABS: Arterial Blood Gas PEEP 8 cmH2O; Arterial Blood Gas Tidal Volume 320 ml; Arterial Blood Gas Vent Mode CMV; Arterial Blood Gas Ventilator rate 18 /MIN; Device VENTILATOR; Modified Allen's Test Pass
[2024-09-01 05:07] LABS: Basophils Percent Auto 0.3 % (0.2-1.2); Eosinophils Percent Auto 0.2 % (0-4.4); Hematocrit 27.3 % (37.0-47.0); Hemoglobin 8.1 g/dL (12.0-15.0); Immature Granulocyte Absolute 0.35 K/mm3 (0.00-0.031); Immature Granulocyte Percent A 2.9 % (0-0.5); Lymphocytes Absolute Auto 1.03 K/mm3 (0.9-3.2); Lymphocytes Percent Auto 8.7 % (18.3-44.2); Mean Corpuscular HGB Conc 29.7 g/dl (32-36); Mean Corpuscular Hemoglobin 25.7 pg (26-34); Mean Corpuscular Volume 86.7 fl (80-100); Mean Platelet Volume 11.4 fl (7.4-10.4); Monocytes Percent Auto 8.4 % (2.6-8.5); Neutrophils Absolute Auto 9.5 K/mm3 (1.3-6.7); Neutrophils Percent Auto 79.5 % (45.5-73.1); Nucleated Red Blood Cells Perc 0.6 % (0.0-0.2); Platelet Count Result 156 k/mm3 (150-375); Red Blood Count 3.15 M/mm3 (4.2-5.4); Red Cell Distribution Width 19.6 % (11.5-14.5); White Blood Count 11.9 K/mm3 (4.5-10.0)
[2024-09-01 05:35] LABS: Glucose Point of Care 181 mg/dl (65-105)
[2024-09-01 05:39] LABS: Alanine Aminotransferase 73 U/L (6-35); Albumin Level 3.8 g/dL (3.5-5.1); Alkaline Phosphatase 104 U/L (38-126); Anion Gap 19 mmol/L (4-12); Aspartate Amino Transferase 77 U/L (14-36); Bilirubin,Total 0.4 mg/dL (0.2-1.3); Calcium 8.8 mg/dL (8.4-10.2); Carbon Dioxide 26 mmol/L (22-30); Chloride 92 mmol/L (98-107); Glucose 162 mg/dL (65-110); Magnesium 3.1 mg/dL (1.6-2.3); Phosphorus 6.8 mg/dL (2.5-4.5); Potassium 4.6 mmol/L (3.4-5.0); Sodium 137 mmol/L (137-145)
[2024-09-01 05:40] LABS: Band Neutrophils Percent 0 % (0-6); Hypochromasia 1+; Ovalocytes 1+; Platelet Estimate Adequate (Adequate); Schistocytes None Seen
[2024-09-01] MEDS: CENTRAL LINE FLUSH 10 ML IV PUSH ×3 (05:55→20:07)
[2024-09-01 06:22] LABS: Vancomycin Trough 20.7 ug/mL (10.0-20.0)
[2024-09-01 06:27] LABS: Glucose Point of Care 205 mg/dl (65-105)
[2024-09-01 07:07] LABS: Blood Urea Nitrogen 119 mg/dL (7-17)
[2024-09-01 07:08] LABS: Estimated CRCL calculation 9 ml/min; Estimated Glomerular Filt Rate 8
[2024-09-01 07:42] LABS: Glucose Point of Care 223 mg/dl (65-105)
[2024-09-01] MEDS: MEROPENEM 500 MG/NS 100 ML 500 MG/100 ML BAG 200 MG IVPB (08:23)
[2024-09-01] MEDS: METOCLOPRAMIDE HCL 10 MG/10 ML SOLN UDC PO ×3 (08:23→20:06)
[2024-09-01] MEDS: PANTOPRAZOLE SODIUM IV 40 MG VIAL IV PUSH ×2 (08:23→20:06)
[2024-09-01] MEDS: MINERAL OIL/WHITE PETROLATUM OINTMENT 1 APPLIC EACH EYE ×2 (08:24→20:06)
[2024-09-01 08:42] LABS: Glucose Point of Care 210 mg/dl (65-105)
--- NOTE | 2024-09-01 09:00 | P.PNINT_ITS ---
Progress Note: A&P Assessment and Plan (1) DVT (deep venous thrombosis): Qualifiers: DVT location: lower extremity Affected thrombotic vein of extremity: tibial Chronicity: acute Laterality: bilateral Qualified Code(s): I82.443 - Acute embolism and thrombosis of tibial vein, bilateral Code(s): I82.409 - Acute embolism and thrombosis of unspecified deep veins of unspecified lower extremity Status: Resolved Assessment and Plan: 08/20: Bilateral venous Dopplers obtained due to swelling in the legs. Ultrasound showed Bilateral [id number] deep venous thrombosis in the left and right posterior tibial veins. Patient was initially started on heparin infusion which was discontinued on 08/28 due to drop in hemoglobin 08/28/2024: Patient dropped hemoglobin to 6.9, on heparin infusion for DVTs bilaterally -have asked the bedside RN to hold heparin infusion -appreciate surgery evaluation and recommendations, will hold off IVC filter placement, repeat venous Dopplers on 08/30/2024 negative for bilateral lower extremity DVT. -continue prophylactic heparin SQ 08/30: Bilateral lower extremity venous Dopplers : Negative bilateral lower extremity venous US. No deep vein thrombosis. (2) Anemia: Qualifiers: Anemia type: due to chronic kidney disease Chronic kidney disease stage: stage 3 (moderate) Chronic kidney disease stage 3 subtype: unspecified whether 3a or 3b Qualified Code(s): N18.30 - Chronic kidney disease, stage 3 unspecified; D63.1 - Anemia in chronic kidney disease Code(s): D64.9 - Anemia, unspecified Status: Acute Assessment and Plan: 08/28: Patient dropped her hemoglobin to 6.9 this morning -patient is on heparin infusion for her bilateral lower extremity DVTs -have asked the bedside RN to hold heparin infusion -08/28: Transfused 1 unit of packed RBCs -hemoglobin stable this morning -continue subQ heparin (prophylactic dose) (3) Acute respiratory failure with hypoxia: Code(s): J96.01 - Acute respiratory failure with hypoxia Status: Acute Assessment and Plan: Acute Respiratory failure secondary to combination of pneumonia and congestive heart failure 08/18: Intubated Repeat CT chest 08/18 MPRESSION: 1. Significant interval progression in an lobar pneumonia along with increasing small bilateral pleural effusions. Patient has elevated procalcitonin and BNP she is positive on intake output balance but her echocardiogram shows normal biventricular size and systolic function Continue Bronchodilators 08/16/2024: Blood cultures negative x2. 08/21/2024: Sputum culture growing MRSA Urine Legionella antigen, mycoplasma pneumonia antibody and urine pneumococcal antigen negative Continue Dialysis to remove fluid, discussed with Nephrology Status post vancomycin cefepime azithromycin (antibiotics ended on 08/27/2024) Patient was off of sedation for 2 days and became tachypneic with asynchronous with ventilator. Patient started on propofol infusion will discontinue, will give sedation vacation after dialysis Weaning trial will depend on improvement in patient's encephalopathy -Chest x-ray and ABGs reviewed -Currently on PEEP of 8 and an FiO2 of 50% FiO2 %, wean FiO2 as tolerated -patient has significant amount of secretions which are thick, will add Mucomyst and Pulmozyme nebulizer -chest x-ray continues shows bilateral infiltrates for despite fluid removal, patient continues to have thick secretions, 08/29: Restarted vancomycin and meropenem 08/30: Consult has been placed for ENT for tracheostomy and GI for PEG tube placement 08/31: PEG tube to be placed today Discussed with Dr. Orellana, tracheostomy scheduled for 09/03/2024 (4) Congestive heart failure: Qualifiers: Heart failure type: unspecified Heart failure chronicity: acute on chronic Qualified Code(s): I50.9 - Heart failure, unspecified Code(s): I50.9 - Heart failure, unspecified Status: Acute Assessment and Plan: See above (5) Non-ST elevation myocardial infarction (NSTEMI): Code(s): I21.4 - Non-ST elevation (NSTEMI) myocardial infarction Status: Acute Assessment and Plan: History of coronary disease status post PCI in the past now presented with elevated troponin. -Cardiology following -Other heart medications on hold due to low blood pressure -Statin on hold due to elevated LFTs. -No plan for cardiac catheterization at this time. -restart aspirin 81 mg (6) Coronary artery disease: Code(s): I25.10 - Atherosclerotic heart disease of [place] coronary artery without angina pectoris Status: Acute Assessment and Plan: See above (7) Type 2 diabetes mellitus: Code(s): E11.9 - Type 2 diabetes mellitus without complications Status: Chronic Assessment and Plan: Sliding scale insulin 08/29: Blood sugars in the 400s despite being Lantus 50 units q.12 hours. Patient was started on insulin infusion on Lantus was discontinued -continue insulin infusion Off steroids (8) Renal failure: Qualifiers: Renal failure chronicity: acute on chronic Acute renal failure type: unspecified Chronic kidney disease stage: stage 3 (moderate) Chronic kidney disease stage 3 subtype: unspecified whether 3a or 3b Qualified Code(s): N17.9 - Acute kidney failure, unspecified; N18.30 - Chronic kidney disease, stage 3 unspecified Code(s): N19 - Unspecified kidney failure Status: Acute Assessment and Plan: Patient presented with creatinine of 1.5. Baseline creatinine unknown She has suprapubic catheter. As per son patient has had a renal tumor which was being monitored and plan was to start radiation therapy by her urology CT scan showed Subtle 2.5 cm mass at the upper pole of the right kidney consistent with provided history of renal tumor. Calcification is at the bilateral kidneys which appear linear and likely atherosclerotic although could not exclude nonobstructing nephrolithiasis. No hydronephrosis in either kidney. Diuretics were held and patient was given albumin bolus Creatinine continue to increase with poor urine output. After discussion with patient's family and avaya engineer decision was made to initiate dialysis. 08/19 dialysis catheter was placed and patient was dialyzed 1 L fluid was removed 08/20, 08/21, 08/23 08/25 patient was dialyzed Monitor urine output electrolytes and creatinine Dialysis per Nephrology -patient scheduled for tunneled dialysis catheter on 09/01 or 09/02 (9) Pneumonia: Qualifiers: Laterality: bilateral Lung location: lower lobe of lung Pneumonia type: due to methicillin-resistant Staphylococcus aureus (MRSA) Qualified Code(s): J15.212 - Pneumonia due to Methicillin resistant Staphylococcus aureus Code(s): J18.9 - Pneumonia, unspecified organism Status: Acute Assessment and Plan: See above (10) Kidney mass: Code(s): N28.89 - Other specified disorders of kidney and ureter Status: Acute Assessment and Plan: Patient's son reports history of kidney mass which is being monitored as it was too big to be removed without total nephrectomy. He states that patient was supposed to get radiation therapy in a month or so before she fractured her ankle. CT scan shows 2.5 cm renal mass on the right side and no hydronephrosis. No intervention at this time (11) Septic shock: Code(s): A41.9 - Sepsis, unspecified organism; R65.21 - Severe sepsis with septic shock Status: Acute Assessment and Plan: Off all pressors Patient requires Levophed mainly when she is receiving dialysis -continue antibiotics as above (12) Ileus: Code(s): K56.7 - Ileus, unspecified Status: Acute Assessment and Plan: RESOLVED Patient has significant output from her OG tube. She has not been tolerating tube feeds. She is on Reglan Bowel sounds are decreased. KUB does not show anything significant abnormal 08/23 Dobbhoff placed tube feeds resume 08/24 will advance tube feeds to 40 mL/hour -patient tolerating tube feeds with minimal residual, positive bowel movement 08/31: PEG tube inserted by GI (13) Atrial fibrillation with RVR: Code(s): I48.91 - Unspecified atrial fibrillation Status: Acute Assessment and Plan: Patient went into AFib with RVR after hemodialysis.. She was started on amiodarone infusion. She has converted to sinus bradycardia, amiodarone was discontinued on 08/26/2024 Currently off heparin infusion due to anemia 08/30: Patient went to AFib RVR during dialysis, with rates in the 140s to 150s, started patient on amiodarone bolus and infusion, will let the infusion complete -continue prophylactic heparin SQ (14) Encephalopathy: Code(s): G93.40 - Encephalopathy, unspecified Status: Acute Assessment and Plan: Patient was on Versed and fentanyl infusion for many days. She also has renal failure which may lead to accumulation -started on propofol infusion -off propofol patient becomes tachypneic and dyssynchronous with the ventilator leading her to desaturate -08/26/2024: CT scan of the brain No intracranial hemorrhage, mass, or acute infarct.Atrophy and chronic white matter changes. -ammonia levels within normal limits -08/29: propofol has been switched to Precedex, to allow patient to wake up -continue to wean Precedex. -will obtain CT brain since patient has encephalopathy and not waking up Plan DVT prophylaxis -heparin subQ Stress ulcer prophylaxis - Protonix to q.12 hours Nutrition -tolerating tube feeds Code Status - Full Code Total Critical Care Time - 34 minutes 08/28: Had a long discussion with both sons, Luke and Geoffrey. I updated them with patient's condition plan of care. They understand that the patient has multiple medical problems but requested that she gets a tracheostomy and PEG tube placement as they want to give her a complete chance to recover 08/18 Dr Crawford and updated patient's son and his at bedside I answered all his questions. 08/19 Dr Crawford also met with patient's both sons as they wanted to proceed with hemodialysis. 08/22 Dr Crawford met with patient's 2 sons and updated them with patient's status including continued respiratory failure, shock, new issues of AFib with RVR and. I also updated them with treatment plan and answered all the questions. Due to a high probability of clinically significant, life threatening deterioration, the patient required my highest level of preparedness to in [place] emergently and I personally spent this critical care time directly and personally managing the patient. This critical care time included obtaining a history; examining the patient; pulse oximetry; ordering and review of studies; arranging urgent treatment with development of a management plan; evaluation of patient's response to treatment; frequent reassessment; and discussions with other providers. It was exclusive of separately billable procedures and treating other patients and teaching time. Please see Assessment and Plan section and the rest of the note for further information on patient assessment and treatment. This dictation may have been done utilizing a voice recognition system. Attempts have been made to correct errors. However, there may be uncorrected grammatical, spelling, and recognitions errors present. Subjective Date/time seen: 09/01/24 09:00 Interval history: 08/18: Intubated 08/19 temporary dialysis catheter placed patient was dialyzed 08/21 vent into AFib with RVR. Converted to sinus Steve with amiodarone 08/23 Dobbhoff tube inserted 08/28: Transfuse 1 unit of PRBC 08/31: PEG tube placed 09/01/2024: Patient seen examined the ICU, remains intubated on CMV mode of ventilation, peep of 8, 30% FiO2. Patient is sedated with Precedex infusion, patient opens her eyes but does not follow simple commands. She does withdraw to pain stimuli. Off norepinephrine. Anuric, afebrile, hemodynamically stable. Secretions are moderately thick, hemoglobin is stable. Patient had PEG tube placed yesterday Review of Systems Review of Systems: ROS unobtainable: Yes unobtainable due to endotracheal tube, unobtainable due to medical condition and unobtainable due to mental status Exam Narrative: General: Pt is intubated and on mechanical ventilation HEENT: Pupils equal and reactive, sclera is clear, ETT in place Lungs/Chest: Trachea central Coarse BS B/L, bilateral rales, no wheezing, adequate air entry Cardiac: RRR. Normal S1 S2. No murmurs Abdomen: Soft, nontender, nondistended, hypoactive bowel sounds Extremities: Bilateral pitting edema, palpable pedal pulse : Butt in place Neurologic: Currently intubated, on Precedex infusion, open her eyes, does not followw simple commands. She does withdraw to pain stimulus Objective Data Vital Signs Vital Signs: Vital Signs - 24 hr 08/31/24 09:15 08/31/24 10:00 08/31/24 10:00 Temperature Pulse Rate 78 74 73 Respiratory Rate 34 H Blood Pressure 106/51 L 93/59 L Pulse Oximetry Oxygen Delivery Fraction of Inspired Oxygen 08/31/24 10:00 08/31/24 10:00 08/31/24 10:06 Temperature Pulse Rate 73 75 73 Respiratory Rate 32 H Blood Pressure 93/59 L 93/59 L Pulse Oximetry 99 Oxygen Delivery Fraction of Inspired Oxygen 08/31/24 10:15 08/31/24 10:15 08/31/24 10:27 Temperature Pulse Rate 77 77 85 Respiratory Rate 32 H Blood Pressure 107/75 107/75 Pulse Oximetry Oxygen Delivery Fraction of Inspired Oxygen 08/31/24 10:30 08/31/24 10:32 08/31/24 10:45 Temperature Pulse Rate 84 78 86 Respiratory Rate 30 H Blood Pressure 109/63 Pulse Oximetry 98 Oxygen Delivery Mechanical Ventilation Fraction of Inspired Oxygen 40 08/31/24 12:00 08/31/24 12:00 08/31/24 12:00 Temperature Pulse Rate 86 86 86 Respiratory Rate 30 H Blood Pressure 113/64 113/64 Pulse Oximetry Oxygen Delivery Fraction of Inspired Oxygen 08/31/24 12:00 08/31/24 12:00 08/31/24 12:03 Temperature 98.3 F Pulse Rate 86 85 Respiratory Rate 30 H Blood Pressure 110/60 Pulse Oximetry 98 Oxygen Delivery Mechanical Ventilation Fraction of Inspired Oxygen 40 08/31/24 14:00 08/31/24 14:00 08/31/24 14:00 Temperature Pulse Rate 86 86 86 Respiratory Rate 29 H 29 H Blood Pressure 108/66 Pulse Oximetry 98 Oxygen Delivery Fraction of Inspired Oxygen 08/31/24 14:00 08/31/24 14:00 08/31/24 14:15 Temperature Pulse Rate 86 86 84 Respiratory Rate 30 H Blood Pressure 108/66 108/66 Pulse Oximetry Oxygen Delivery Fraction of Inspired Oxygen 08/31/24 14:15 08/31/24 14:15 08/31/24 14:18 Temperature Pulse Rate 85 85 89 Respiratory Rate 31 H Blood Pressure 111/67 Pulse Oximetry 97 Oxygen Delivery Mechanical Ventilation Fraction of Inspired Oxygen 35 08/31/24 14:30 08/31/24 16:00 08/31/24 16:00 Temperature 98.8 F Pulse Rate 85 77 Respiratory Rate 28 H Blood Pressure 96/58 L 110/67 Pulse Oximetry 99 Oxygen Delivery Fraction of Inspired Oxygen 35 08/31/24 16:00 08/31/24 16:00 08/31/24 16:00 Temperature Pulse Rate 85 85 82 Respiratory Rate Blood Pressure 110/67 110/67 Pulse Oximetry Oxygen Delivery Fraction of Inspired Oxygen 08/31/24 16:40 08/31/24 16:45 08/31/24 17:00 Temperature Pulse Rate 77 76 77 Respiratory Rate 28 H Blood Pressure 101/64 100/58 L Pulse Oximetry Oxygen Delivery Fraction of Inspired Oxygen 08/31/24 17:04 08/31/24 18:00 08/31/24 18:00 Temperature Pulse Rate 79 81 83 Respiratory Rate 33 H Blood Pressure 102/61 Pulse Oximetry 99 97 Oxygen Delivery Mechanical Ventilation Fraction of Inspired Oxygen 30 08/31/24 18:04 08/31/24 18:05 08/31/24 18:06 Temperature Pulse Rate 81 81 81 Respiratory Rate 32 H Blood Pressure 102/60 102/60 Pulse Oximetry Oxygen Delivery Fraction of Inspired Oxygen 08/31/24 18:38 08/31/24 18:39 08/31/24 19:00 Temperature Pulse Rate 82 84 93 Respiratory Rate Blood Pressure 107/74 107/64 117/86 Pulse Oximetry Oxygen Delivery Fraction of Inspired Oxygen 08/31/24 19:55 08/31/24 19:55 08/31/24 20:00 Temperature Pulse Rate 94 94 Respiratory Rate 31 H Blood Pressure Pulse Oximetry 95 96 Oxygen Delivery Mechanical Ventilation Mechanical Ventilation Fraction of Inspired Oxygen 30 30 08/31/24 20:00 08/31/24 20:00 08/31/24 20:00 Temperature 99.0 F Pulse Rate 94 94 Respiratory Rate 31 H Blood Pressure 114/71 Pulse Oximetry 94 Oxygen Delivery Fraction of Inspired Oxygen 35 08/31/24 20:04 08/31/24 22:00 08/31/24 22:00 Temperature Pulse Rate 94 96 96 Respiratory Rate 32 H 35 H Blood Pressure 117/74 Pulse Oximetry 95 Oxygen Delivery Fraction of Inspired Oxygen 08/31/24 22:33 09/01/24 00:00 09/01/24 00:00 Temperature Pulse Rate 98 Respiratory Rate Blood Pressure Pulse Oximetry 95 97 Oxygen Delivery Mechanical Ventilation Mechanical Ventilation Fraction of Inspired Oxygen 30 30 35 09/01/24 00:00 09/01/24 00:00 09/01/24 01:15 Temperature 99.2 F Pulse Rate 99 100 94 Respiratory Rate 34 H Blood Pressure 104/63 Pulse Oximetry 96 97 Oxygen Delivery Mechanical Ventilation Fraction of Inspired Oxygen 30 09/01/24 01:15 09/01/24 01:22 09/01/24 02:00 Temperature Pulse Rate 94 93 98 Respiratory Rate 30 H 31 H 33 H Blood Pressure 115/70 Pulse Oximetry 96 Oxygen Delivery Fraction of Inspired Oxygen 09/01/24 02:00 09/01/24 04:00 09/01/24 04:00 Temperature Pulse Rate 98 92 Respiratory Rate Blood Pressure Pulse Oximetry 98 Oxygen Delivery Mechanical Ventilation Fraction of Inspired Oxygen 30 09/01/24 04:00 09/01/24 04:00 09/01/24 04:41 Temperature 98.5 F Pulse Rate 92 94 Respiratory Rate 35 H Blood Pressure 107/68 Pulse Oximetry 98 98 Oxygen Delivery Mechanical Ventilation Fraction of Inspired Oxygen 35 30 09/01/24 06:00 09/01/24 06:00 09/01/24 07:36 Temperature Pulse Rate 95 95 94 Respiratory Rate 29 H 32 H Blood Pressure 107/71 Pulse Oximetry 96 Oxygen Delivery Fraction of Inspired Oxygen 09/01/24 07:48 09/01/24 07:53 09/01/24 08:00 Temperature 98.9 F Pulse Rate 95 93 94 Respiratory Rate 36 H 35 H Blood Pressure 92/56 L Pulse Oximetry 97 97 Oxygen Delivery Mechanical Ventilation Fraction of Inspired Oxygen 30 Intake/Output Intake/Output: Intake & Output 08/29/24 08/30/24 08/31/24 09/01/24 23:59 23:59 23:59 23:59 Intake Total 1939.7 2261.6 1288.4 355.8 Output Total 25 2315 25 Balance 1914.7 -53.4 1288.4 330.8 Meds/Results Medications: Active Medications Generic Name Dose Route Start Last Admin Trade Name Freq PRN Reason Stop Dose Admin Acetaminophen 650 mg 08/18/24 21:48 08/28/24 01:10 Acetaminophen Elixir 325 Mg/10.15 Ml Udc PO 650 mg Q4H PRN Administration Mild Pain (1-3) or Fever Acetylcysteine 200 mg 08/28/24 08:00 09/01/24 07:35 Acetylcysteine 20% Inhal Soln 800 Mg/4 Ml Vial INHALATION 200 mg Q6HRT TEMI Administration Dextrose 12.5 gm 08/29/24 15:45 Dextrose 50% 25 Gm/50 Ml Syringe IV PUSH PRN PRN Hypoglycemia Protocol Epoetin Oliver-epbx 10,000 units 09/01/24 18:18 Epoetin Oliver-Epbx 10,000 Units/Ml Vial IV PUSH 09/01/24 18:19 ONCE ONE Glucagon 1 mg 08/29/24 15:45 Glucagon For Inj 1 Mg Vial IM PRN PRN Hypoglycemia Protocol Glucose 15 gm 08/29/24 15:45 Glucose Oral Gel 15 Gm Of Glucse In 37.5 Gm Tube PO PRN PRN Hypoglycemia Protocol Heparin Sodium (Porcine) 5,500 units 08/18/24 15:05 08/18/24 23:23 Heparin Sodium 5,000 Units/Ml Vial IV PUSH 5,500 units PRN PRN Administration aPTT less than 55 seconds Heparin Sodium (Porcine) 3,000 units 08/18/24 15:05 08/23/24 10:58 Heparin Sodium 5,000 Units/Ml Vial IV PUSH 3,000 units PRN PRN Administration aPTT 55 - 70 seconds Heparin Sodium (Porcine) 5,000 units 08/29/24 07:45 08/30/24 20:56 Heparin Sodium 5,000 Units/Ml Vial SUB-Q 5,000 units Q8HR TEMI Administration Heparin Sodium (Porcine) 500 units 09/01/24 07:45 Heparin Sodium 1,000 Units/Ml Vial IV PUSH 09/01/24 10:46 Q1H TEMI Heparin Sodium/Dextrose 25,000 units in 250 mls @ 23 mls/hr 08/18/24 15:05 08/28/24 22:25 Heparin Sodium/D5w 100 Units/Ml IV CONT Infused .[id number] TEMI Titration Protocol 2,300 UNITS/HR Albumin Human 50 mls @ 999 mls/hr 08/21/24 06:28 Albutein IVPB 09/20/24 06:27 Q10M PRN HYPOTENSION Meropenem 500 mg in 100 mls @ 200 mls/hr 08/29/24 08:00 09/01/24 08:23 IVPB 200 mls/hr Q24H TEMI Administration Insulin Human Regular 100 100 mls @ 1 mls/hr 08/29/24 16:00 09/01/24 08:35 units/ Sodium Chloride IV CONT 1 units/hr .Q24H TEMI 1 mls/hr Titration Protocol 1 UNITS/HR Dextrose 1,000 mls @ 100 mls/hr 08/29/24 15:45 Dextrose 5% 1,000 Ml IVPB PRN PRN Hypoglycemia Protocol Norepinephrine Bitartrate 8 mg in 250 mls @ 0 mls/hr 08/30/24 11:10 08/31/24 19:00 Levophed 8 Mg/D5w 250 Ml IV CONT 0 mcg/min .Q0M TEMI 0 mls/hr Titration Protocol 0 MCG/MIN Vancomycin HCl 500 mg in 100 mls @ 100 mls/hr 09/01/24 18:00 Vancomycin 500 Mg/Ns 100 Ml IVPB 09/01/24 18:59 ONCE ONE Albumin Human 100 mls @ 60 mls/hr 09/01/24 07:42 Albutein IVPB 09/01/24 09:21 ONCE ONE Insulin Aspart 4 - 8 units 08/20/24 21:05 08/29/24 12:41 Insulin Aspart (*Bkc) 100 Units/Ml SUB-Q 8 units Q4HR TEMI Administration Protocol Insulin Glargine 50 units 08/29/24 09:00 08/29/24 08:22 Insulin Glargine (*Bkc) 100 Units/Ml SUB-Q 50 units Q12H TEMI Administration Ipratropium [place] 0.5 mg 08/29/24 12:22 08/29/24 12:20 Ipratropium Br 0.02% Inh Soln 0.5 Mg/2.5 Ml Vial INHALATION 0.5 mg Q6HRT PRN Administration Wheezing Levalbuterol HCl 1.25 mg 08/29/24 14:00 09/01/24 07:35 Levalbuterol Neb 1.25 Mg/3 Ml INHALATION 1.25 mg Q6HRT TEMI Administration Levalbuterol HCl 1.25 mg 08/29/24 12:22 08/29/24 12:20 Levalbuterol Neb 1.25 Mg/3 Ml INHALATION 1.25 mg Q6HRT PRN Administration Wheezing Metoclopramide HCl 10 mg 08/23/24 08:00 09/01/24 08:23 Metoclopramide Hcl 10 Mg/10 Ml Soln Udc PO 10 mg Q6H TEMI Administration Multi-Ingred Cream/Lotion/Oil/Oint 1 applic 08/18/24 09:00 09/01/24 08:24 Mineral Oil/White Petrolatum Ointment EACH EYE 1 applic Q12HR TEMI Administration Pantoprazole Sodium 40 mg 08/28/24 21:00 09/01/24 08:23 Pantoprazole Sodium Iv 40 Mg Vial IV PUSH 40 mg Q12HR TEMI Administration Polyethylene Glycol 17 gm 08/15/24 22:20 08/28/24 08:19 Polyethylene Glycol 3350 17 Gm Powd.Pack PO 17 gm DAILY PRN Administration constipation Sodium Chloride 10 ml 08/19/24 22:00 09/01/24 05:55 Central Line Flush IV PUSH 10 ml Q8HR TEMI Administration Sodium Chloride 20 ml 08/19/24 18:43 Central Line Flush IV PUSH PRN PRN after blood draws Vancomycin HCl 1 each 08/30/24 06:14 Vancomycin For Hemodialysis IVPB PRN PRN Vancomycin Protocol Radiology Results: ITS Impressions Chest CTA 08/15/24 11:11 IMPRESSION: No pulmonary embolus. No thoracic aortic dissection. Right upper lobe infiltrate with patchy bilateral airspace disease, likely inflammatory/congestive rather than infectious. Small bilateral pleural effusions with adjacent atelectasis. Renal Ultrasound 08/19/24 14:10 IMPRESSION: No hydronephrosis or renal calculi. Findings suggesting medical renal disease. Findings within the upper pole of the right kidney consistent with patient's history, as detailed above. Chest/Abdomen/Pelvis CT 08/23/24 09:58 IMPRESSION: CHEST: 1. Bilateral pneumonia which is slightly decreased compared to previous study. Bilateral pleural effusion more on the right side. ABDOMEN/PELVIS: 1. No evidence of appendicitis, diverticulitis or intestinal obstruction. 2. Bilateral tiny kidney stones. 3. Hepatomegaly. 4. No evidence of ileus seen. ADDENDUM: 08/23/24 1042 Possibility of mass in the right kidney upper pole cannot be excluded. Abdomen X-Ray 08/23/24 16:53 IMPRESSION: 1. Dobbhoff type nasoenteric feeding tube with distal tip projecting over the gastric fundus. Head CT 08/26/24 09:32 Impression: No intracranial hemorrhage, mass, or acute infarct. Atrophy and chronic white matter changes, as above. Venous Doppler Study 08/30/24 15:18 IMPRESSION: Negative bilateral lower extremity venous US. No deep vein thrombosis. Chest X-Ray 09/01/24 06:04 Impression: Bilateral airspace disease, left worse than right, which could reflect asymmetric pulmonary edema versus bilateral pneumonia. Correlate clinically. Small pleural effusions. Support tubes, as above. Labs Labs: Laboratory Results - last 24 hr 08/31/24 08/31/24 08/31/24 08:50 10:03 11:05 WBC RBC Hgb Hct MCV MCH MCHC RDW Plt Count MPV Immature Gran % (Auto) Neut % (Auto) Lymph % (Auto) [place] % (Auto) Eos % (Auto) Baso % (Auto) Lymph # (Auto) [place] # (Auto) Eos # (Auto) Baso # (Auto) Abs Immat Gran (auto) Absolute Neuts (auto) Absolute Nucleated RBC Band Neutrophils % Nucleated RBC % Platelet Estimate Hypochromasia Ovalocytes Schistocytes Puncture Site ABG pH ABG pCO2 ABG pO2 ABG PO2/FiO2 Ratio ABG HCO3 ABG O2 Saturation ABG O2 Content ABG Base Excess A-a Gradient Oxyhemoglobin Carboxyhemoglobin Methemoglobin Reduced Hemoglobin Total Hemoglobin O2 Delivery Device O2 Liters/Min Minute Volume Vent Rate Vent Mode FiO2 Tidal Volume PEEP Peak Inspir Pressure Pressure Support Sodium Potassium Chloride Carbon Dioxide Anion Gap BUN Creatinine Estim Creat Clear Calc Estimated GFR Glucose POC Capillary Glucose 195 H 200 H 177 H Calcium Phosphorus Magnesium Total Bilirubin AST ALT Alkaline Phosphatase Total Protein Albumin Vancomycin Trough 08/31/24 08/31/24 08/31/24 11:56 13:15 14:07 WBC RBC Hgb Hct MCV MCH MCHC RDW Plt Count MPV Immature Gran % (Auto) Neut % (Auto) Lymph % (Auto) [place] % (Auto) Eos % (Auto) Baso % (Auto) Lymph # (Auto) [place] # (Auto) Eos # (Auto) Baso # (Auto) Abs Immat Gran (auto) Absolute Neuts (auto) Absolute Nucleated RBC Band Neutrophils % Nucleated RBC % Platelet Estimate Hypochromasia Ovalocytes Schistocytes Puncture Site ABG pH ABG pCO2 ABG pO2 ABG PO2/FiO2 Ratio ABG HCO3 ABG O2 Saturation ABG O2 Content ABG Base Excess A-a Gradient Oxyhemoglobin Carboxyhemoglobin Methemoglobin Reduced Hemoglobin Total Hemoglobin O2 Delivery Device O2 Liters/Min Minute Volume Vent Rate Vent Mode FiO2 Tidal Volume PEEP Peak Inspir Pressure Pressure Support Sodium Potassium Chloride Carbon Dioxide Anion Gap BUN Creatinine Estim Creat Clear Calc Estimated GFR Glucose POC Capillary Glucose 187 H 184 H 180 H Calcium Phosphorus Magnesium Total Bilirubin AST ALT Alkaline Phosphatase Total Protein Albumin Vancomycin Trough 08/31/24 08/31/24 08/31/24 15:30 16:44 17:50 WBC RBC Hgb Hct MCV MCH MCHC RDW Plt Count MPV Immature Gran % (Auto) Neut % (Auto) Lymph % (Auto) [place] % (Auto) Eos % (Auto) Baso % (Auto) Lymph # (Auto) [place] # (Auto) Eos # (Auto) Baso # (Auto) Abs Immat Gran (auto) Absolute Neuts (auto) Absolute Nucleated RBC Band Neutrophils % Nucleated RBC % Platelet Estimate Hypochromasia Ovalocytes Schistocytes Puncture Site ABG pH ABG pCO2 ABG pO2 ABG PO2/FiO2 Ratio ABG HCO3 ABG O2 Saturation ABG O2 Content ABG Base Excess A-a Gradient Oxyhemoglobin Carboxyhemoglobin Methemoglobin Reduced Hemoglobin Total Hemoglobin O2 Delivery Device O2 Liters/Min Minute Volume Vent Rate Vent Mode FiO2 Tidal Volume PEEP Peak Inspir Pressure Pressure Support Sodium Potassium Chloride Carbon Dioxide Anion Gap BUN Creatinine Estim Creat Clear Calc Estimated GFR Glucose POC Capillary Glucose 191 H 206 H 210 H Calcium Phosphorus Magnesium Total Bilirubin AST ALT Alkaline Phosphatase Total Protein Albumin Vancomycin Trough 08/31/24 08/31/24 08/31/24 18:35 19:41 20:39 WBC RBC Hgb Hct MCV MCH MCHC RDW Plt Count MPV Immature Gran % (Auto) Neut % (Auto) Lymph % (Auto) [place] % (Auto) Eos % (Auto) Baso % (Auto) Lymph # (Auto) [place] # (Auto) Eos # (Auto) Baso # (Auto) Abs Immat Gran (auto) Absolute Neuts (auto) Absolute Nucleated RBC Band Neutrophils % Nucleated RBC % Platelet Estimate Hypochromasia Ovalocytes Schistocytes Puncture Site ABG pH ABG pCO2 ABG pO2 ABG PO2/FiO2 Ratio ABG HCO3 ABG O2 Saturation ABG O2 Content ABG Base Excess A-a Gradient Oxyhemoglobin Carboxyhemoglobin Methemoglobin Reduced Hemoglobin Total Hemoglobin O2 Delivery Device O2 Liters/Min Minute Volume Vent Rate Vent Mode FiO2 Tidal Volume PEEP Peak Inspir Pressure Pressure Support Sodium Potassium Chloride Carbon Dioxide Anion Gap BUN Creatinine Estim Creat Clear Calc Estimated GFR Glucose POC Capillary Glucose 204 H 232 H 233 H Calcium Phosphorus Magnesium Total Bilirubin AST ALT Alkaline Phosphatase Total Protein Albumin Vancomycin Trough 08/31/24 08/31/24 08/31/24 21:32 22:27 23:39 WBC RBC Hgb Hct MCV MCH MCHC RDW Plt Count MPV Immature Gran % (Auto) Neut % (Auto) Lymph % (Auto) [place] % (Auto) Eos % (Auto) Baso % (Auto) Lymph # (Auto) [place] # (Auto) Eos # (Auto) Baso # (Auto) Abs Immat Gran (auto) Absolute Neuts (auto) Absolute Nucleated RBC Band Neutrophils % Nucleated RBC % Platelet Estimate Hypochromasia Ovalocytes Schistocytes Puncture Site ABG pH ABG pCO2 ABG pO2 ABG PO2/FiO2 Ratio ABG HCO3 ABG O2 Saturation ABG O2 Content ABG Base Excess A-a Gradient Oxyhemoglobin Carboxyhemoglobin Methemoglobin Reduced Hemoglobin Total Hemoglobin O2 Delivery Device O2 Liters/Min Minute Volume Vent Rate Vent Mode FiO2 Tidal Volume PEEP Peak Inspir Pressure Pressure Support Sodium Potassium Chloride Carbon Dioxide Anion Gap BUN Creatinine Estim Creat Clear Calc Estimated GFR Glucose POC Capillary Glucose 241 H 284 H 302 H Calcium Phosphorus Magnesium Total Bilirubin AST ALT Alkaline Phosphatase Total Protein Albumin Vancomycin Trough 09/01/24 09/01/24 09/01/24 00:29 01:28 02:22 WBC RBC Hgb Hct MCV MCH MCHC RDW Plt Count MPV Immature Gran % (Auto) Neut % (Auto) Lymph % (Auto) [place] % (Auto) Eos % (Auto) Baso % (Auto) Lymph # (Auto) [place] # (Auto) Eos # (Auto) Baso # (Auto) Abs Immat Gran (auto) Absolute Neuts (auto) Absolute Nucleated RBC Band Neutrophils % Nucleated RBC % Platelet Estimate Hypochromasia Ovalocytes Schistocytes Puncture Site ABG pH ABG pCO2 ABG pO2 ABG PO2/FiO2 Ratio ABG HCO3 ABG O2 Saturation ABG O2 Content ABG Base Excess A-a Gradient Oxyhemoglobin Carboxyhemoglobin Methemoglobin Reduced Hemoglobin Total Hemoglobin O2 Delivery Device O2 Liters/Min Minute Volume Vent Rate Vent Mode FiO2 Tidal Volume PEEP Peak Inspir Pressure Pressure Support Sodium Potassium Chloride Carbon Dioxide Anion Gap BUN Creatinine Estim Creat Clear Calc Estimated GFR Glucose POC Capillary Glucose 283 H 244 H 233 H Calcium Phosphorus Magnesium Total Bilirubin AST ALT Alkaline Phosphatase Total Protein Albumin Vancomycin Trough 09/01/24 09/01/24 09/01/24 03:38 04:31 04:39 WBC RBC Hgb Hct MCV MCH MCHC RDW Plt Count MPV Immature Gran % (Auto) Neut % (Auto) Lymph % (Auto) [place] % (Auto) Eos % (Auto) Baso % (Auto) Lymph # (Auto) [place] # (Auto) Eos # (Auto) Baso # (Auto) Abs Immat Gran (auto) Absolute Neuts (auto) Absolute Nucleated RBC Band Neutrophils % Nucleated RBC % Platelet Estimate Hypochromasia Ovalocytes Schistocytes Puncture Site Left radial ABG pH 7.483 H ABG pCO2 33.4 L ABG pO2 87.0 ABG PO2/FiO2 Ratio 2.90 ABG HCO3 24.5 ABG O2 Saturation 97.3 ABG O2 Content 12.1 L ABG Base Excess 1.2 A-a Gradient 87.7 Oxyhemoglobin 96.5 Carboxyhemoglobin 0.2 Methemoglobin 0.1 Reduced Hemoglobin 3.2 Total Hemoglobin 8.8 L O2 Delivery Device Ventilator O2 Liters/Min Not Reportable Minute Volume Not Reportable Vent Rate 18 Vent Mode Cmv FiO2 30 Tidal Volume 320 PEEP 8 Peak Inspir Pressure Not Reportable Pressure Support Not Reportable Sodium Potassium Chloride Carbon Dioxide Anion Gap BUN Creatinine Estim Creat Clear Calc Estimated GFR Glucose POC Capillary Glucose 204 H 171 H Calcium Phosphorus Magnesium Total Bilirubin AST ALT Alkaline Phosphatase Total Protein Albumin Vancomycin Trough 09/01/24 09/01/24 09/01/24 05:03 05:33 06:25 WBC 11.9 H RBC 3.15 L Hgb 8.1 L Hct 27.3 L MCV 86.7 MCH 25.7 L MCHC 29.7 L RDW 19.6 H Plt Count 156 MPV 11.4 H Immature Gran % (Auto) 2.9 H Neut % (Auto) 79.5 H Lymph % (Auto) 8.7 L [place] % (Auto) 8.4 Eos % (Auto) 0.2 Baso % (Auto) 0.3 Lymph # (Auto) 1.03 [place] # (Auto) 1.0 H Eos # (Auto) 0.0 Baso # (Auto) 0.0 Abs Immat Gran (auto) 0.35 H Absolute Neuts (auto) 9.5 H Absolute Nucleated RBC 0.070 H Band Neutrophils % 0 Nucleated RBC % 0.6 H Platelet Estimate Adequate Hypochromasia 1+ Ovalocytes 1+ Schistocytes None seen Puncture Site ABG pH ABG pCO2 ABG pO2 ABG PO2/FiO2 Ratio ABG HCO3 ABG O2 Saturation ABG O2 Content ABG Base Excess A-a Gradient Oxyhemoglobin Carboxyhemoglobin Methemoglobin Reduced Hemoglobin Total Hemoglobin O2 Delivery Device O2 Liters/Min Minute Volume Vent Rate Vent Mode FiO2 Tidal Volume PEEP Peak Inspir Pressure Pressure Support Sodium 137 Potassium 4.6 Chloride 92 L Carbon Dioxide 26 Anion Gap 19 H BUN 119 H D Creatinine 5.10 H Estim Creat Clear Calc 9 Estimated GFR 8 L Glucose 162 H POC Capillary Glucose 181 H 205 H Calcium 8.8 Phosphorus 6.8 H Magnesium 3.1 H Total Bilirubin 0.4 AST 77 H ALT 73 H Alkaline Phosphatase 104 Total Protein 7.0 Albumin 3.8 Vancomycin Trough 20.7 H 09/01/24 09/01/24 07:38 08:40 WBC RBC Hgb Hct MCV MCH MCHC RDW Plt Count MPV Immature Gran % (Auto) Neut % (Auto) Lymph % (Auto) [place] % (Auto) Eos % (Auto) Baso % (Auto) Lymph # (Auto) [place] # (Auto) Eos # (Auto) Baso # (Auto) Abs Immat Gran (auto) Absolute Neuts (auto) Absolute Nucleated RBC Band Neutrophils % Nucleated RBC % Platelet Estimate Hypochromasia Ovalocytes Schistocytes Puncture Site ABG pH ABG pCO2 ABG pO2 ABG PO2/FiO2 Ratio ABG HCO3 ABG O2 Saturation ABG O2 Content ABG Base Excess A-a Gradient Oxyhemoglobin Carboxyhemoglobin Methemoglobin Reduced Hemoglobin Total Hemoglobin O2 Delivery Device O2 Liters/Min Minute Volume Vent Rate Vent Mode FiO2 Tidal Volume PEEP Peak Inspir Pressure Pressure Support Sodium Potassium Chloride Carbon Dioxide Anion Gap BUN Creatinine Estim Creat Clear Calc Estimated GFR Glucose POC Capillary Glucose 223 H 210 H Calcium Phosphorus Magnesium Total Bilirubin AST ALT Alkaline Phosphatase Total Protein Albumin Vancomycin Trough Quality VTE Prophylaxis VTE prophylaxis: mechanical ordered and pharmacologic ordered
[2024-09-01 09:34] LABS: Glucose Point of Care 247 mg/dl (65-105)
[2024-09-01 10:44] LABS: Glucose Point of Care 244 mg/dl (65-105)
--- NOTE | 2024-09-01 10:54 | PCFNICU ---
ICU Rounding Note: Pt current nutrition is Nepro at 40 ml/hr with Gianluca BID and Prosource BID. Last recorded weight is 85.7 kg, down from 88.8 kg on admit. Bowel Motility: Last reported BM 08/29 Labs Reviewed: Mg 3.1, BUN 119, Cr 5.10, Glu 162, PO4 6.8, Hct 27.3, Hgb 8.1 Meds Noted:Reglan, Protonix, NovoLog, Lantus, Vancomycin, Insulin Drip Skin: Deep Tissue-Buttock, Unstageable-left heel Additional Notes: Patient remains on mechanical vent. PEG placed 08/31. Head CT today and Dialysis. Tunneled cath planned for 09/02. Trach 09/03. Tube feedings being tolerated of Nepro at 40 ml/hr with flush 30 ml q 4 hours. Protein Modulars of Gianluca and Prosource added for would healing. Agree with diet orders. Following daily in ICU rounds. Monitor intake, wt, labs, skin. Follow up every Friday and Friday.
[2024-09-01 11:32] LABS: Glucose Point of Care 240 mg/dl (65-105)
[2024-09-01 12:31] LABS: Glucose Point of Care 269 mg/dl (65-105)
[2024-09-01] MEDS: HEPARIN SODIUM 5,000 UNITS/ML VIAL 5000 UNITS SUB-Q ×2 (13:06→20:07)
[2024-09-01] MEDS: HEPARIN SODIUM 1,000 UNITS/ML VIAL 1000 UNITS IV PUSH (13:31)
[2024-09-01 13:32] LABS: Glucose Point of Care 238 mg/dl (65-105)
[2024-09-01] MEDS: HEPARIN SODIUM 1,000 UNITS/ML VIAL 500 UNITS IV PUSH ×4 (13:32→16:30)
--- NOTE | 2024-09-01 13:57 | P.PNIM_ITS ---
Progress Note: A&P Assessment and Plan (1) DVT (deep venous thrombosis): Qualifiers: Affected thrombotic vein of extremity: tibial Chronicity: acute DVT location: lower extremity Laterality: bilateral Qualified Code(s): I82.443 - Acute embolism and thrombosis of tibial vein, bilateral Code(s): I82.409 - Acute embolism and thrombosis of unspecified deep veins of unspecified lower extremity Status: Resolved Assessment and Plan: 08/20: Bilateral venous Dopplers obtained due to swelling in the legs. Ultrasound showed Bilateral [id number] deep venous thrombosis in the left and right posterior tibial veins. Patient was initially started on heparin infusion which was discontinued on 08/28 due to drop in hemoglobin 08/28/2024: Patient dropped hemoglobin to 6.9, on heparin infusion for DVTs bilaterally -have asked the bedside RN to hold heparin infusion -appreciate surgery evaluation and recommendations, will hold off IVC filter placement, repeat venous Dopplers on 08/30/2024 negative for bilateral lower extremity DVT. -continue prophylactic heparin SQ 08/30: Bilateral lower extremity venous Dopplers : Negative bilateral lower extremity venous US. No deep vein thrombosis. (2) Anemia: Qualifiers: Anemia type: due to chronic kidney disease Chronic kidney disease stage: stage 3 (moderate) Chronic kidney disease stage 3 subtype: unspecified whether 3a or 3b Qualified Code(s): N18.30 - Chronic kidney disease, stage 3 unspecified; D63.1 - Anemia in chronic kidney disease Code(s): D64.9 - Anemia, unspecified Status: Acute Assessment and Plan: 08/28: Patient dropped her hemoglobin to 6.9 this morning -patient is on heparin infusion for her bilateral lower extremity DVTs -have asked the bedside RN to hold heparin infusion -08/28: Transfused 1 unit of packed RBCs -hemoglobin stable this morning -continue subQ heparin (prophylactic dose) (3) Acute respiratory failure with hypoxia: Code(s): J96.01 - Acute respiratory failure with hypoxia Status: Acute Assessment and Plan: Acute Respiratory failure secondary to combination of pneumonia and congestive heart failure 08/18: Intubated Repeat CT chest 08/18 MPRESSION: 1. Significant interval progression in an lobar pneumonia along with increasing small bilateral pleural effusions. Patient has elevated procalcitonin and BNP she is positive on intake output balance but her echocardiogram shows normal biventricular size and systolic function Continue Bronchodilators 08/16/2024: Blood cultures negative x2. 08/21/2024: Sputum culture growing MRSA Urine Legionella antigen, mycoplasma pneumonia antibody and urine pneumococcal antigen negative Continue Dialysis to remove fluid, discussed with Nephrology Status post vancomycin cefepime azithromycin (antibiotics ended on 08/27/2024) Patient was off of sedation for 2 days and became tachypneic with asynchronous with ventilator. Patient started on propofol infusion will discontinue, will give sedation vacation after dialysis Weaning trial will depend on improvement in patient's encephalopathy -Chest x-ray and ABGs reviewed -Currently on PEEP of 8 and an FiO2 of 50% FiO2 %, wean FiO2 as tolerated -patient has significant amount of secretions which are thick, will add Mucomyst and Pulmozyme nebulizer -chest x-ray continues shows bilateral infiltrates for despite fluid removal, patient continues to have thick secretions, 08/29: Restarted vancomycin and meropenem 08/30: Consult has been placed for ENT for tracheostomy and GI for PEG tube placement 08/31: PEG tube to be placed today Discussed with Dr. Orellana, tracheostomy scheduled for 09/03/2024 (4) Congestive heart failure: Qualifiers: Heart failure chronicity: acute on chronic Heart failure type: unspecified Qualified Code(s): I50.9 - Heart failure, unspecified Code(s): I50.9 - Heart failure, unspecified Status: Acute Assessment and Plan: See above (5) Non-ST elevation myocardial infarction (NSTEMI): Code(s): I21.4 - Non-ST elevation (NSTEMI) myocardial infarction Status: Acute Assessment and Plan: History of coronary disease status post PCI in the past now presented with elevated troponin. -Cardiology following -Other heart medications on hold due to low blood pressure -Statin on hold due to elevated LFTs. -No plan for cardiac catheterization at this time. -restart aspirin 81 mg (6) Coronary artery disease: Code(s): I25.10 - Atherosclerotic heart disease of [place] coronary artery without angina pectoris Status: Acute Assessment and Plan: See above (7) Type 2 diabetes mellitus: Code(s): E11.9 - Type 2 diabetes mellitus without complications Status: Chronic Assessment and Plan: Sliding scale insulin 08/29: Blood sugars in the 400s despite being Lantus 50 units q.12 hours. Patient was started on insulin infusion on Lantus was discontinued -continue insulin infusion Off steroids (8) Renal failure: Qualifiers: Acute renal failure type: unspecified Chronic kidney disease stage: stage 3 (moderate) Chronic kidney disease stage 3 subtype: unspecified whether 3a or 3b Renal failure chronicity: acute on chronic Qualified Code(s): N17.9 - Acute kidney failure, unspecified; N18.30 - Chronic kidney disease, stage 3 unspecified Code(s): N19 - Unspecified kidney failure Status: Acute Assessment and Plan: Patient presented with creatinine of 1.5. Baseline creatinine unknown She has suprapubic catheter. As per son patient has had a renal tumor which was being monitored and plan was to start radiation therapy by her urology CT scan showed Subtle 2.5 cm mass at the upper pole of the right kidney consistent with provided history of renal tumor. Calcification is at the bilateral kidneys which appear linear and likely atherosclerotic although could not exclude nonobstructing nephrolithiasis. No hydronephrosis in either kidney. Diuretics were held and patient was given albumin bolus Creatinine continue to increase with poor urine output. After discussion with patient's family and manager managed care decision was made to initiate dialysis. 08/19 dialysis catheter was placed and patient was dialyzed 1 L fluid was removed 08/20, 08/21, 08/23 08/25 patient was dialyzed Monitor urine output electrolytes and creatinine Dialysis per Nephrology -patient scheduled for tunneled dialysis catheter on 09/01 or 09/02 (9) Pneumonia: Qualifiers: Laterality: bilateral Lung location: lower lobe of lung Pneumonia type: due to methicillin-resistant Staphylococcus aureus (MRSA) Qualified Code(s): J15.212 - Pneumonia due to Methicillin resistant Staphylococcus aureus Code(s): J18.9 - Pneumonia, unspecified organism Status: Acute Assessment and Plan: See above (10) Kidney mass: Code(s): N28.89 - Other specified disorders of kidney and ureter Status: Acute Assessment and Plan: Patient's son reports history of kidney mass which is being monitored as it was too big to be removed without total nephrectomy. He states that patient was supposed to get radiation therapy in a month or so before she fractured her ankle. CT scan shows 2.5 cm renal mass on the right side and no hydronephrosis. No intervention at this time (11) Septic shock: Code(s): A41.9 - Sepsis, unspecified organism; R65.21 - Severe sepsis with septic shock Status: Acute Assessment and Plan: Off all pressors Patient requires Levophed mainly when she is receiving dialysis -continue antibiotics as above (12) Ileus: Code(s): K56.7 - Ileus, unspecified Status: Acute Assessment and Plan: RESOLVED Patient has significant output from her OG tube. She has not been tolerating tube feeds. She is on Reglan Bowel sounds are decreased. KUB does not show anything significant abnormal 08/23 Dobbhoff placed tube feeds resume 08/24 will advance tube feeds to 40 mL/hour -patient tolerating tube feeds with minimal residual, positive bowel movement 08/31: PEG tube inserted by GI (13) Atrial fibrillation with RVR: Code(s): I48.91 - Unspecified atrial fibrillation Status: Acute Assessment and Plan: Patient went into AFib with RVR after hemodialysis.. She was started on amiodarone infusion. She has converted to sinus bradycardia, amiodarone was discontinued on 08/26/2024 Currently off heparin infusion due to anemia 08/30: Patient went to AFib RVR during dialysis, with rates in the 140s to 150s, started patient on amiodarone bolus and infusion, will let the infusion complete -continue prophylactic heparin SQ (14) Encephalopathy: Code(s): G93.40 - Encephalopathy, unspecified Status: Acute Assessment and Plan: Patient was on Versed and fentanyl infusion for many days. She also has renal failure which may lead to accumulation -started on propofol infusion -off propofol patient becomes tachypneic and dyssynchronous with the ventilator leading her to desaturate -08/26/2024: CT scan of the brain No intracranial hemorrhage, mass, or acute infarct.Atrophy and chronic white matter changes. -ammonia levels within normal limits -08/29: propofol has been switched to Precedex, to allow patient to wake up -continue to wean Precedex. -will obtain CT brain since patient has encephalopathy and not waking up Plan DVT prophylaxis -heparin subQ Stress ulcer prophylaxis - Protonix to q.12 hours Nutrition -tolerating tube feeds Code Status - Full Code Subjective Date/time seen: 09/01/24 13:57 Interval history: intubated and sedated Review of Systems Review of Systems: 12 systems were reviewed and are negativ e except for as per HPI. ROS unobtainable: Yes unobtainable due to endotracheal tube, unobtainable due to medical condition and unobtainable due to mental status Exam Narrative: General: Pt is intubated and on mechanical ventilation HEENT: Pupils equal and reactive, sclera is clear, ETT in place Lungs/Chest: Trachea central Coarse BS B/L, bilateral rales, no wheezing, adequate air entry Cardiac: RRR. Normal S1 S2. No murmurs Abdomen: Soft, nontender, nondistended, hypoactive bowel sounds Extremities: Bilateral pitting edema, palpable pedal pulse : Butt in place Neurologic: Currently intubated, on Precedex infusion, open her eyes, does not followw simple commands. She does withdraw to pain stimulus Objective Data Vital Signs Vital Signs: Vital Signs - 24 hr 08/31/24 14:00 08/31/24 14:00 08/31/24 14:00 Temperature Pulse Rate 86 86 86 Respiratory Rate 29 H 29 H Blood Pressure 108/66 Pulse Oximetry 98 Oxygen Delivery Fraction of Inspired Oxygen 08/31/24 14:00 08/31/24 14:00 08/31/24 14:15 Temperature Pulse Rate 86 86 84 Respiratory Rate 30 H Blood Pressure 108/66 108/66 Pulse Oximetry Oxygen Delivery Fraction of Inspired Oxygen 08/31/24 14:15 08/31/24 14:15 08/31/24 14:18 Temperature Pulse Rate 85 85 89 Respiratory Rate 31 H Blood Pressure 111/67 Pulse Oximetry 97 Oxygen Delivery Mechanical Ventilation Fraction of Inspired Oxygen 35 08/31/24 14:30 08/31/24 16:00 08/31/24 16:00 Temperature 98.8 F Pulse Rate 85 77 Respiratory Rate 28 H Blood Pressure 96/58 L 110/67 Pulse Oximetry 99 Oxygen Delivery Fraction of Inspired Oxygen 35 08/31/24 16:00 08/31/24 16:00 08/31/24 16:00 Temperature Pulse Rate 85 85 82 Respiratory Rate Blood Pressure 110/67 110/67 Pulse Oximetry Oxygen Delivery Fraction of Inspired Oxygen 08/31/24 16:40 08/31/24 16:45 08/31/24 17:00 Temperature Pulse Rate 77 76 77 Respiratory Rate 28 H Blood Pressure 101/64 100/58 L Pulse Oximetry Oxygen Delivery Fraction of Inspired Oxygen 08/31/24 17:04 08/31/24 18:00 08/31/24 18:00 Temperature Pulse Rate 79 81 83 Respiratory Rate 33 H Blood Pressure 102/61 Pulse Oximetry 99 97 Oxygen Delivery Mechanical Ventilation Fraction of Inspired Oxygen 30 08/31/24 18:04 08/31/24 18:05 08/31/24 18:06 Temperature Pulse Rate 81 81 81 Respiratory Rate 32 H Blood Pressure 102/60 102/60 Pulse Oximetry Oxygen Delivery Fraction of Inspired Oxygen 08/31/24 18:38 08/31/24 18:39 08/31/24 19:00 Temperature Pulse Rate 82 84 93 Respiratory Rate Blood Pressure 107/74 107/64 117/86 Pulse Oximetry Oxygen Delivery Fraction of Inspired Oxygen 08/31/24 19:55 08/31/24 19:55 08/31/24 20:00 Temperature Pulse Rate 94 94 Respiratory Rate 31 H Blood Pressure Pulse Oximetry 95 96 Oxygen Delivery Mechanical Ventilation Mechanical Ventilation Fraction of Inspired Oxygen 30 30 08/31/24 20:00 08/31/24 20:00 08/31/24 20:00 Temperature 99.0 F Pulse Rate 94 94 Respiratory Rate 31 H Blood Pressure 114/71 Pulse Oximetry 94 Oxygen Delivery Fraction of Inspired Oxygen 35 08/31/24 20:04 08/31/24 22:00 08/31/24 22:00 Temperature Pulse Rate 94 96 96 Respiratory Rate 32 H 35 H Blood Pressure 117/74 Pulse Oximetry 95 Oxygen Delivery Fraction of Inspired Oxygen 08/31/24 22:33 09/01/24 00:00 09/01/24 00:00 Temperature Pulse Rate 98 Respiratory Rate Blood Pressure Pulse Oximetry 95 97 Oxygen Delivery Mechanical Ventilation Mechanical Ventilation Fraction of Inspired Oxygen 30 30 35 09/01/24 00:00 09/01/24 00:00 09/01/24 01:15 Temperature 99.2 F Pulse Rate 99 100 94 Respiratory Rate 34 H Blood Pressure 104/63 Pulse Oximetry 96 97 Oxygen Delivery Mechanical Ventilation Fraction of Inspired Oxygen 30 09/01/24 01:15 09/01/24 01:22 09/01/24 02:00 Temperature Pulse Rate 94 93 98 Respiratory Rate 30 H 31 H 33 H Blood Pressure 115/70 Pulse Oximetry 96 Oxygen Delivery Fraction of Inspired Oxygen 09/01/24 02:00 09/01/24 04:00 09/01/24 04:00 Temperature Pulse Rate 98 92 Respiratory Rate Blood Pressure Pulse Oximetry 98 Oxygen Delivery Mechanical Ventilation Fraction of Inspired Oxygen 30 09/01/24 04:00 09/01/24 04:00 09/01/24 04:41 Temperature 98.5 F Pulse Rate 92 94 Respiratory Rate 35 H Blood Pressure 107/68 Pulse Oximetry 98 98 Oxygen Delivery Mechanical Ventilation Fraction of Inspired Oxygen 35 30 09/01/24 06:00 09/01/24 06:00 09/01/24 07:36 Temperature Pulse Rate 95 95 94 Respiratory Rate 29 H 32 H Blood Pressure 107/71 Pulse Oximetry 96 Oxygen Delivery Fraction of Inspired Oxygen 09/01/24 07:48 09/01/24 07:53 09/01/24 08:00 Temperature 98.9 F Pulse Rate 95 93 94 Respiratory Rate 36 H 35 H Blood Pressure 92/56 L Pulse Oximetry 97 97 Oxygen Delivery Mechanical Ventilation Fraction of Inspired Oxygen 30 09/01/24 08:00 09/01/24 08:00 09/01/24 08:00 Temperature Pulse Rate 92 Respiratory Rate Blood Pressure Pulse Oximetry Oxygen Delivery Mechanical Ventilation Fraction of Inspired Oxygen 30 30 09/01/24 08:00 09/01/24 10:00 09/01/24 10:00 Temperature Pulse Rate 93 94 94 Respiratory Rate 32 H Blood Pressure 92/56 L 121/81 Pulse Oximetry 97 Oxygen Delivery Fraction of Inspired Oxygen 09/01/24 10:00 09/01/24 10:00 09/01/24 10:10 Temperature Pulse Rate 100 85 98 Respiratory Rate 29 H Blood Pressure 121/81 91/55 L Pulse Oximetry 98 99 Oxygen Delivery Mechanical Ventilation Fraction of Inspired Oxygen 30 09/01/24 11:35 09/01/24 12:00 09/01/24 12:00 Temperature Pulse Rate 96 Respiratory Rate Blood Pressure Pulse Oximetry 97 Oxygen Delivery Mechanical Ventilation Mechanical Ventilation Fraction of Inspired Oxygen 30 30 30 09/01/24 12:00 09/01/24 12:00 09/01/24 12:00 Temperature 99.0 F Pulse Rate 98 98 98 Respiratory Rate 34 H Blood Pressure 97/61 L 97/61 L Pulse Oximetry 97 Oxygen Delivery Fraction of Inspired Oxygen 09/01/24 13:11 Temperature 99.1 F Pulse Rate 95 Respiratory Rate 29 H Blood Pressure 97/58 L Pulse Oximetry 98 Oxygen Delivery Fraction of Inspired Oxygen Intake/Output Intake/Output: Intake & Output 08/29/24 08/30/24 08/31/24 09/01/24 23:59 23:59 23:59 23:59 Intake Total 1939.7 2261.6 1288.4 361.7 Output Total 25 2315 25 Balance 1914.7 -53.4 1288.4 336.7 Meds/Results Medications: Active Medications Generic Name Dose Route Start Last Admin Trade Name Freq PRN Reason Stop Dose Admin Acetaminophen 650 mg 08/18/24 21:48 08/28/24 01:10 Acetaminophen Elixir 325 Mg/10.15 Ml Udc PO 650 mg Q4H PRN Administration Mild Pain (1-3) or Fever Acetylcysteine 200 mg 08/28/24 08:00 09/01/24 07:35 Acetylcysteine 20% Inhal Soln 800 Mg/4 Ml Vial INHALATION 200 mg Q6HRT TEMI Administration Aspirin 81 mg 09/02/24 08:00 Aspirin 81 Mg Chewable Tablet PO DAILY@0800 TEMI Dextrose 12.5 gm 08/29/24 15:45 Dextrose 50% 25 Gm/50 Ml Syringe IV PUSH PRN PRN Hypoglycemia Protocol Epoetin [place]-epbx 10,000 units 09/01/24 18:18 Epoetin [place]-Epbx 10,000 Units/Ml Vial IV PUSH 09/01/24 18:19 ONCE ONE Glucagon 1 mg 08/29/24 15:45 Glucagon For Inj 1 Mg Vial IM PRN PRN Hypoglycemia Protocol Glucose 15 gm 08/29/24 15:45 Glucose Oral Gel 15 Gm Of Glucse In 37.5 Gm Tube PO PRN PRN Hypoglycemia Protocol Heparin Sodium (Porcine) 5,500 units 08/18/24 15:05 08/18/24 23:23 Heparin Sodium 5,000 Units/Ml Vial IV PUSH 5,500 units PRN PRN Administration aPTT less than 55 seconds Heparin Sodium (Porcine) 3,000 units 08/18/24 15:05 08/23/24 10:58 Heparin Sodium 5,000 Units/Ml Vial IV PUSH 3,000 units PRN PRN Administration aPTT 55 - 70 seconds Heparin Sodium (Porcine) 5,000 units 08/29/24 07:45 09/01/24 13:06 Heparin Sodium 5,000 Units/Ml Vial SUB-Q 5,000 units Q8HR TEMI Administration Heparin Sodium/Dextrose 25,000 units in 250 mls @ 23 mls/hr 08/18/24 15:05 08/28/24 22:25 Heparin Sodium/D5w 100 Units/Ml IV CONT Infused .[id number] TEMI Titration Protocol 2,300 UNITS/HR Albumin Human 50 mls @ 999 mls/hr 08/21/24 06:28 Albutein IVPB 09/20/24 06:27 Q10M PRN HYPOTENSION Meropenem 500 mg in 100 mls @ 200 mls/hr 08/29/24 08:00 09/01/24 08:23 IVPB 200 mls/hr Q24H TEMI Administration Insulin Human Regular 100 100 mls @ 2 mls/hr 08/29/24 16:00 09/01/24 13:31 units/ Sodium Chloride IV CONT 2 units/hr .Q24H TMEI 2 mls/hr Titration Protocol 2 UNITS/HR Dextrose 1,000 mls @ 100 mls/hr 08/29/24 15:45 Dextrose 5% 1,000 Ml IVPB PRN PRN Hypoglycemia Protocol Norepinephrine Bitartrate 8 mg in 250 mls @ 0 mls/hr 08/30/24 11:10 09/01/24 12:00 Levophed 8 Mg/D5w 250 Ml IV CONT 0 mcg/min .Q0M TEMI 0 mls/hr Titration Protocol 0 MCG/MIN Vancomycin HCl 500 mg in 100 mls @ 100 mls/hr 09/01/24 18:00 Vancomycin 500 Mg/Ns 100 Ml IVPB 09/01/24 18:59 ONCE ONE Albumin Human 100 mls @ 60 mls/hr 09/01/24 13:00 Albutein IVPB 09/01/24 14:39 ONCE ONE Insulin Aspart 4 - 8 units 08/20/24 21:05 08/29/24 12:41 Insulin Aspart (*Bkc) 100 Units/Ml SUB-Q 8 units Q4HR TEMI Administration Protocol Insulin Glargine 50 units 08/29/24 09:00 08/29/24 08:22 Insulin Glargine (*Bkc) 100 Units/Ml SUB-Q 50 units Q12H TEMI Administration Ipratropium [place] 0.5 mg 08/29/24 12:22 08/29/24 12:20 Ipratropium Br 0.02% Inh Soln 0.5 Mg/2.5 Ml Vial INHALATION 0.5 mg Q6HRT PRN Administration Wheezing Levalbuterol HCl 1.25 mg 08/29/24 14:00 09/01/24 07:35 Levalbuterol Neb 1.25 Mg/3 Ml INHALATION 1.25 mg Q6HRT TEMI Administration Levalbuterol HCl 1.25 mg 08/29/24 12:22 08/29/24 12:20 Levalbuterol Neb 1.25 Mg/3 Ml INHALATION 1.25 mg Q6HRT PRN Administration Wheezing Metoclopramide HCl 10 mg 08/23/24 08:00 09/01/24 08:23 Metoclopramide Hcl 10 Mg/10 Ml Soln Udc PO 10 mg Q6H TEMI Administration Multi-Ingred Cream/Lotion/Oil/Oint 1 applic 08/18/24 09:00 09/01/24 08:24 Mineral Oil/White Petrolatum Ointment EACH EYE 1 applic Q12HR TEMI Administration Pantoprazole Sodium 40 mg 08/28/24 21:00 09/01/24 08:23 Pantoprazole Sodium Iv 40 Mg Vial IV PUSH 40 mg Q12HR TEMI Administration Polyethylene Glycol 17 gm 08/15/24 22:20 08/28/24 08:19 Polyethylene Glycol 3350 17 Gm Powd.Pack PO 17 gm DAILY PRN Administration constipation Sodium Chloride 10 ml 08/19/24 22:00 09/01/24 05:55 Central Line Flush IV PUSH 10 ml Q8HR TEMI Administration Sodium Chloride 20 ml 08/19/24 18:43 Central Line Flush IV PUSH PRN PRN after blood draws Vancomycin HCl 1 each 08/30/24 06:14 Vancomycin For Hemodialysis IVPB PRN PRN Vancomycin Protocol Radiology Results: ITS Impressions Chest CTA 08/15/24 11:11 IMPRESSION: No pulmonary embolus. No thoracic aortic dissection. Right upper lobe infiltrate with patchy bilateral airspace disease, likely inflammatory/congestive rather than infectious. Small bilateral pleural effusions with adjacent atelectasis. Renal Ultrasound 08/19/24 14:10 IMPRESSION: No hydronephrosis or renal calculi. Findings suggesting medical renal disease. Findings within the upper pole of the right kidney consistent with patient's history, as detailed above. Chest/Abdomen/Pelvis CT 08/23/24 09:58 IMPRESSION: CHEST: 1. Bilateral pneumonia which is slightly decreased compared to previous study. Bilateral pleural effusion more on the right side. ABDOMEN/PELVIS: 1. No evidence of appendicitis, diverticulitis or intestinal obstruction. 2. Bilateral tiny kidney stones. 3. Hepatomegaly. 4. No evidence of ileus seen. ADDENDUM: 08/23/24 1042 Possibility of mass in the right kidney upper pole cannot be excluded. Abdomen X-Ray 08/23/24 16:53 IMPRESSION: 1. Dobbhoff type nasoenteric feeding tube with distal tip projecting over the gastric fundus. Venous Doppler Study 08/30/24 15:18 IMPRESSION: Negative bilateral lower extremity venous US. No deep vein thrombosis. Chest X-Ray 09/01/24 06:04 Impression: Bilateral airspace disease, left worse than right, which could reflect asymmetric pulmonary edema versus bilateral pneumonia. Correlate clinically. Small pleural effusions. Support tubes, as above. Head CT 09/01/24 10:03 IMPRESSION: 1. No acute intracranial process. 2. Age-related changes including moderate diffuse volume loss and moderate scattered white matter attenuation consistent with chronic small vessel ischemic disease. 3. Unchanged bilateral otomastoiditis effusions. Labs Labs: Laboratory Results - last 24 hr 08/31/24 08/31/24 08/31/24 14:07 15:30 16:44 WBC RBC Hgb Hct MCV MCH MCHC RDW Plt Count MPV Immature Gran % (Auto) Neut % (Auto) Lymph % (Auto) [place] % (Auto) Eos % (Auto) Baso % (Auto) Lymph # (Auto) [place] # (Auto) Eos # (Auto) Baso # (Auto) Abs Immat Gran (auto) Absolute Neuts (auto) Absolute Nucleated RBC Band Neutrophils % Nucleated RBC % Platelet Estimate Hypochromasia Ovalocytes Schistocytes Puncture Site ABG pH ABG pCO2 ABG pO2 ABG PO2/FiO2 Ratio ABG HCO3 ABG O2 Saturation ABG O2 Content ABG Base Excess A-a Gradient Oxyhemoglobin Carboxyhemoglobin Methemoglobin Reduced Hemoglobin Total Hemoglobin O2 Delivery Device O2 Liters/Min Minute Volume Vent Rate Vent Mode FiO2 Tidal Volume PEEP Peak Inspir Pressure Pressure Support Sodium Potassium Chloride Carbon Dioxide Anion Gap BUN Creatinine Estim Creat Clear Calc Estimated GFR Glucose POC Capillary Glucose 180 H 191 H 206 H Calcium Phosphorus Magnesium Total Bilirubin AST ALT Alkaline Phosphatase Total Protein Albumin Vancomycin Trough 08/31/24 08/31/24 08/31/24 17:50 18:35 19:41 WBC RBC Hgb Hct MCV MCH MCHC RDW Plt Count MPV Immature Gran % (Auto) Neut % (Auto) Lymph % (Auto) [place] % (Auto) Eos % (Auto) Baso % (Auto) Lymph # (Auto) [place] # (Auto) Eos # (Auto) Baso # (Auto) Abs Immat Gran (auto) Absolute Neuts (auto) Absolute Nucleated RBC Band Neutrophils % Nucleated RBC % Platelet Estimate Hypochromasia Ovalocytes Schistocytes Puncture Site ABG pH ABG pCO2 ABG pO2 ABG PO2/FiO2 Ratio ABG HCO3 ABG O2 Saturation ABG O2 Content ABG Base Excess A-a Gradient Oxyhemoglobin Carboxyhemoglobin Methemoglobin Reduced Hemoglobin Total Hemoglobin O2 Delivery Device O2 Liters/Min Minute Volume Vent Rate Vent Mode FiO2 Tidal Volume PEEP Peak Inspir Pressure Pressure Support Sodium Potassium Chloride Carbon Dioxide Anion Gap BUN Creatinine Estim Creat Clear Calc Estimated GFR Glucose POC Capillary Glucose 210 H 204 H 232 H Calcium Phosphorus Magnesium Total Bilirubin AST ALT Alkaline Phosphatase Total Protein Albumin Vancomycin Trough 08/31/24 08/31/24 08/31/24 20:39 21:32 22:27 WBC RBC Hgb Hct MCV MCH MCHC RDW Plt Count MPV Immature Gran % (Auto) Neut % (Auto) Lymph % (Auto) [place] % (Auto) Eos % (Auto) Baso % (Auto) Lymph # (Auto) [place] # (Auto) Eos # (Auto) Baso # (Auto) Abs Immat Gran (auto) Absolute Neuts (auto) Absolute Nucleated RBC Band Neutrophils % Nucleated RBC % Platelet Estimate Hypochromasia Ovalocytes Schistocytes Puncture Site ABG pH ABG pCO2 ABG pO2 ABG PO2/FiO2 Ratio ABG HCO3 ABG O2 Saturation ABG O2 Content ABG Base Excess A-a Gradient Oxyhemoglobin Carboxyhemoglobin Methemoglobin Reduced Hemoglobin Total Hemoglobin O2 Delivery Device O2 Liters/Min Minute Volume Vent Rate Vent Mode FiO2 Tidal Volume PEEP Peak Inspir Pressure Pressure Support Sodium Potassium Chloride Carbon Dioxide Anion Gap BUN Creatinine Estim Creat Clear Calc Estimated GFR Glucose POC Capillary Glucose 233 H 241 H 284 H Calcium Phosphorus Magnesium Total Bilirubin AST ALT Alkaline Phosphatase Total Protein Albumin Vancomycin Trough 08/31/24 09/01/24 09/01/24 23:39 00:29 01:28 WBC RBC Hgb Hct MCV MCH MCHC RDW Plt Count MPV Immature Gran % (Auto) Neut % (Auto) Lymph % (Auto) [place] % (Auto) Eos % (Auto) Baso % (Auto) Lymph # (Auto) [place] # (Auto) Eos # (Auto) Baso # (Auto) Abs Immat Gran (auto) Absolute Neuts (auto) Absolute Nucleated RBC Band Neutrophils % Nucleated RBC % Platelet Estimate Hypochromasia Ovalocytes Schistocytes Puncture Site ABG pH ABG pCO2 ABG pO2 ABG PO2/FiO2 Ratio ABG HCO3 ABG O2 Saturation ABG O2 Content ABG Base Excess A-a Gradient Oxyhemoglobin Carboxyhemoglobin Methemoglobin Reduced Hemoglobin Total Hemoglobin O2 Delivery Device O2 Liters/Min Minute Volume Vent Rate Vent Mode FiO2 Tidal Volume PEEP Peak Inspir Pressure Pressure Support Sodium Potassium Chloride Carbon Dioxide Anion Gap BUN Creatinine Estim Creat Clear Calc Estimated GFR Glucose POC Capillary Glucose 302 H 283 H 244 H Calcium Phosphorus Magnesium Total Bilirubin AST ALT Alkaline Phosphatase Total Protein Albumin Vancomycin Trough 09/01/24 09/01/24 09/01/24 02:22 03:38 04:31 WBC RBC Hgb Hct MCV MCH MCHC RDW Plt Count MPV Immature Gran % (Auto) Neut % (Auto) Lymph % (Auto) [place] % (Auto) Eos % (Auto) Baso % (Auto) Lymph # (Auto) [place] # (Auto) Eos # (Auto) Baso # (Auto) Abs Immat Gran (auto) Absolute Neuts (auto) Absolute Nucleated RBC Band Neutrophils % Nucleated RBC % Platelet Estimate Hypochromasia Ovalocytes Schistocytes Puncture Site Left radial ABG pH 7.483 H ABG pCO2 33.4 L ABG pO2 87.0 ABG PO2/FiO2 Ratio 2.90 ABG HCO3 24.5 ABG O2 Saturation 97.3 ABG O2 Content 12.1 L ABG Base Excess 1.2 A-a Gradient 87.7 Oxyhemoglobin 96.5 Carboxyhemoglobin 0.2 Methemoglobin 0.1 Reduced Hemoglobin 3.2 Total Hemoglobin 8.8 L O2 Delivery Device Ventilator O2 Liters/Min Not Reportable Minute Volume Not Reportable Vent Rate 18 Vent Mode Cmv FiO2 30 Tidal Volume 320 PEEP 8 Peak Inspir Pressure Not Reportable Pressure Support Not Reportable Sodium Potassium Chloride Carbon Dioxide Anion Gap BUN Creatinine Estim Creat Clear Calc Estimated GFR Glucose POC Capillary Glucose 233 H 204 H Calcium Phosphorus Magnesium Total Bilirubin AST ALT Alkaline Phosphatase Total Protein Albumin Vancomycin Trough 09/01/24 09/01/24 09/01/24 04:39 05:03 05:33 WBC 11.9 H RBC 3.15 L Hgb 8.1 L Hct 27.3 L MCV 86.7 MCH 25.7 L MCHC 29.7 L RDW 19.6 H Plt Count 156 MPV 11.4 H Immature Gran % (Auto) 2.9 H Neut % (Auto) 79.5 H Lymph % (Auto) 8.7 L [place] % (Auto) 8.4 Eos % (Auto) 0.2 Baso % (Auto) 0.3 Lymph # (Auto) 1.03 [place] # (Auto) 1.0 H Eos # (Auto) 0.0 Baso # (Auto) 0.0 Abs Immat Gran (auto) 0.35 H Absolute Neuts (auto) 9.5 H Absolute Nucleated RBC 0.070 H Band Neutrophils % 0 Nucleated RBC % 0.6 H Platelet Estimate Adequate Hypochromasia 1+ Ovalocytes 1+ Schistocytes None seen Puncture Site ABG pH ABG pCO2 ABG pO2 ABG PO2/FiO2 Ratio ABG HCO3 ABG O2 Saturation ABG O2 Content ABG Base Excess A-a Gradient Oxyhemoglobin Carboxyhemoglobin Methemoglobin Reduced Hemoglobin Total Hemoglobin O2 Delivery Device O2 Liters/Min Minute Volume Vent Rate Vent Mode FiO2 Tidal Volume PEEP Peak Inspir Pressure Pressure Support Sodium 137 Potassium 4.6 Chloride 92 L Carbon Dioxide 26 Anion Gap 19 H BUN 119 H D Creatinine 5.10 H Estim Creat Clear Calc 9 Estimated GFR 8 L Glucose 162 H POC Capillary Glucose 171 H 181 H Calcium 8.8 Phosphorus 6.8 H Magnesium 3.1 H Total Bilirubin 0.4 AST 77 H ALT 73 H Alkaline Phosphatase 104 Total Protein 7.0 Albumin 3.8 Vancomycin Trough 20.7 H 09/01/24 09/01/24 09/01/24 06:25 07:38 08:40 WBC RBC Hgb Hct MCV MCH MCHC RDW Plt Count MPV Immature Gran % (Auto) Neut % (Auto) Lymph % (Auto) [place] % (Auto) Eos % (Auto) Baso % (Auto) Lymph # (Auto) [place] # (Auto) Eos # (Auto) Baso # (Auto) Abs Immat Gran (auto) Absolute Neuts (auto) Absolute Nucleated RBC Band Neutrophils % Nucleated RBC % Platelet Estimate Hypochromasia Ovalocytes Schistocytes Puncture Site ABG pH ABG pCO2 ABG pO2 ABG PO2/FiO2 Ratio ABG HCO3 ABG O2 Saturation ABG O2 Content ABG Base Excess A-a Gradient Oxyhemoglobin Carboxyhemoglobin Methemoglobin Reduced Hemoglobin Total Hemoglobin O2 Delivery Device O2 Liters/Min Minute Volume Vent Rate Vent Mode FiO2 Tidal Volume PEEP Peak Inspir Pressure Pressure Support Sodium Potassium Chloride Carbon Dioxide Anion Gap BUN Creatinine Estim Creat Clear Calc Estimated GFR Glucose POC Capillary Glucose 205 H 223 H 210 H Calcium Phosphorus Magnesium Total Bilirubin AST ALT Alkaline Phosphatase Total Protein Albumin Vancomycin Trough 09/01/24 09/01/24 09/01/24 09:32 10:31 11:29 WBC RBC Hgb Hct MCV MCH MCHC RDW Plt Count MPV Immature Gran % (Auto) Neut % (Auto) Lymph % (Auto) [place] % (Auto) Eos % (Auto) Baso % (Auto) Lymph # (Auto) [place] # (Auto) Eos # (Auto) Baso # (Auto) Abs Immat Gran (auto) Absolute Neuts (auto) Absolute Nucleated RBC Band Neutrophils % Nucleated RBC % Platelet Estimate Hypochromasia Ovalocytes Schistocytes Puncture Site ABG pH ABG pCO2 ABG pO2 ABG PO2/FiO2 Ratio ABG HCO3 ABG O2 Saturation ABG O2 Content ABG Base Excess A-a Gradient Oxyhemoglobin Carboxyhemoglobin Methemoglobin Reduced Hemoglobin Total Hemoglobin O2 Delivery Device O2 Liters/Min Minute Volume Vent Rate Vent Mode FiO2 Tidal Volume PEEP Peak Inspir Pressure Pressure Support Sodium Potassium Chloride Carbon Dioxide Anion Gap BUN Creatinine Estim Creat Clear Calc Estimated GFR Glucose POC Capillary Glucose 247 H 244 H 240 H Calcium Phosphorus Magnesium Total Bilirubin AST ALT Alkaline Phosphatase Total Protein Albumin Vancomycin Trough 09/01/24 09/01/24 12:28 13:30 WBC RBC Hgb Hct MCV MCH MCHC RDW Plt Count MPV Immature Gran % (Auto) Neut % (Auto) Lymph % (Auto) [place] % (Auto) Eos % (Auto) Baso % (Auto) Lymph # (Auto) [place] # (Auto) Eos # (Auto) Baso # (Auto) Abs Immat Gran (auto) Absolute Neuts (auto) Absolute Nucleated RBC Band Neutrophils % Nucleated RBC % Platelet Estimate Hypochromasia Ovalocytes Schistocytes Puncture Site ABG pH ABG pCO2 ABG pO2 ABG PO2/FiO2 Ratio ABG HCO3 ABG O2 Saturation ABG O2 Content ABG Base Excess A-a Gradient Oxyhemoglobin Carboxyhemoglobin Methemoglobin Reduced Hemoglobin Total Hemoglobin O2 Delivery Device O2 Liters/Min Minute Volume Vent Rate Vent Mode FiO2 Tidal Volume PEEP Peak Inspir Pressure Pressure Support Sodium Potassium Chloride Carbon Dioxide Anion Gap BUN Creatinine Estim Creat Clear Calc Estimated GFR Glucose POC Capillary Glucose 269 H 238 H Calcium Phosphorus Magnesium Total Bilirubin AST ALT Alkaline Phosphatase Total Protein Albumin Vancomycin Trough Quality VTE Prophylaxis VTE prophylaxis: mechanical ordered and pharmacologic ordered
--- NOTE | 2024-09-01 14:05 | P.PNNP_ITS ---
Subjective Date/time seen: 09/01/24 14:05 Objective Data Vital Signs Vital Signs: Vital Signs Temp Pulse Resp BP Pulse Ox O2 Del Method FiO2 09/01/24 14:00 95 93/56 L 09/01/24 14:00 99 32 H 93/56 L 95 09/01/24 14:00 98 09/01/24 13:45 97 110/64 09/01/24 13:30 90 105/66 09/01/24 13:19 93 94/58 L 09/01/24 13:11 30 09/01/24 13:11 99.1 F 95 29 H 97/58 L 98 09/01/24 12:00 99.0 F 98 34 H 97/61 L 97 09/01/24 12:00 98 97/61 L 09/01/24 12:00 98 09/01/24 12:00 30 09/01/24 12:00 Mechanical Ventilation 09/01/24 11:35 96 97 Mechanical Ventilation 09/01/24 10:10 98 99 Mechanical Ventilation 09/01/24 10:00 85 29 H 91/55 L 98 09/01/24 10:00 100 121/81 09/01/24 10:00 94 32 H 121/81 97 09/01/24 10:00 94 09/01/24 08:00 93 92/56 L 09/01/24 08:00 92 09/01/24 08:00 30 09/01/24 08:00 Mechanical Ventilation 09/01/24 08:00 98.9 F 94 35 H 92/56 L 97 09/01/24 07:53 93 97 Mechanical Ventilation 09/01/24 07:48 95 36 H 09/01/24 07:36 94 32 H 09/01/24 06:00 95 29 H 107/71 96 09/01/24 06:00 95 09/01/24 04:41 94 98 Mechanical Ventilation 09/01/24 04:00 98.5 F 92 35 H 107/68 98 09/01/24 04:00 35 09/01/24 04:00 92 09/01/24 04:00 98 Mechanical Ventilation 09/01/24 02:00 98 09/01/24 02:00 98 33 H 115/70 96 09/01/24 01:22 93 31 H 09/01/24 01:15 94 30 H 09/01/24 01:15 94 97 Mechanical Ventilation 30 09/01/24 00:00 100 09/01/24 00:00 99.2 F 99 34 H 104/63 96 09/01/24 00:00 35 09/01/24 00:00 97 Mechanical Ventilation 30 08/31/24 22:33 98 95 Mechanical Ventilation 30 08/31/24 22:00 96 35 H 117/74 95 08/31/24 22:00 96 08/31/24 20:04 94 32 H 08/31/24 20:00 94 08/31/24 20:00 99.0 F 94 31 H 114/71 94 08/31/24 20:00 35 08/31/24 20:00 96 Mechanical Ventilation 30 08/31/24 19:55 94 31 H 08/31/24 19:55 94 95 Mechanical Ventilation 30 08/31/24 19:00 93 117/86 08/31/24 18:39 84 107/64 08/31/24 18:38 82 107/74 08/31/24 18:06 81 102/60 08/31/24 18:05 81 102/60 08/31/24 18:04 81 32 H 08/31/24 18:00 83 08/31/24 18:00 81 33 H 102/61 97 08/31/24 17:04 79 99 Mechanical Ventilation 08/31/24 17:00 77 100/58 L 08/31/24 16:45 76 101/64 Intake/Output Intake/Output: Intake & Output 08/29/24 08/30/24 08/31/24 09/01/24 23:59 23:59 23:59 23:59 Intake Total 1939.7 2261.6 1288.4 366.3 Output Total 2315 25 Balance 1914.7 -53.4 1288.4 341.3 Meds/Results Medications: Active Medications Generic Name Dose Route Start Last Admin Trade Name Freq PRN Reason Stop Dose Admin Acetaminophen 650 mg 08/18/24 21:48 08/28/24 01:10 Acetaminophen Elixir 325 Mg/10.15 Ml Udc PO 650 mg Q4H PRN Administration Mild Pain (1-3) or Fever Acetylcysteine 200 mg 08/28/24 08:00 09/01/24 14:11 Acetylcysteine 20% Inhal Soln 800 Mg/4 Ml Vial INHALATION 200 mg Q6HRT TEMI Administration Aspirin 81 mg 09/02/24 08:00 Aspirin 81 Mg Chewable Tablet PO DAILY@0800 TEMI Dextrose 12.5 gm 08/29/24 15:45 Dextrose 50% 25 Gm/50 Ml Syringe IV PUSH PRN PRN Hypoglycemia Protocol Epoetin Oliver-epbx 10,000 units 09/01/24 18:18 09/01/24 16:04 Epoetin Oliver-Epbx 10,000 Units/Ml Vial IV PUSH 09/01/24 18:19 10,000 units ONCE ONE Administration Glucagon 1 mg 08/29/24 15:45 Glucagon For Inj 1 Mg Vial IM PRN PRN Hypoglycemia Protocol Glucose 15 gm 08/29/24 15:45 Glucose Oral Gel 15 Gm Of Glucse In 37.5 Gm Tube PO PRN PRN Hypoglycemia Protocol Heparin Sodium (Porcine) 5,500 units 08/18/24 15:05 08/18/24 23:23 Heparin Sodium 5,000 Units/Ml Vial IV PUSH 5,500 units PRN PRN Administration aPTT less than 55 seconds Heparin Sodium (Porcine) 3,000 units 08/18/24 15:05 08/23/24 10:58 Heparin Sodium 5,000 Units/Ml Vial IV PUSH 3,000 units PRN PRN Administration aPTT 55 - 70 seconds Heparin Sodium (Porcine) 5,000 units 08/29/24 07:45 09/01/24 14:15 Heparin Sodium 5,000 Units/Ml Vial SUB-Q Not Given Q8HR TEMI Heparin Sodium/Dextrose 25,000 units in 250 mls @ 23 mls/hr 08/18/24 15:05 08/28/24 22:25 Heparin Sodium/D5w 100 Units/Ml IV CONT Infused .[id number] TEMI Titration Protocol 2,300 UNITS/HR Albumin Human 50 mls @ 999 mls/hr 08/21/24 06:28 Albutein IVPB 09/20/24 06:27 Q10M PRN HYPOTENSION Meropenem 500 mg in 100 mls @ 200 mls/hr 08/29/24 08:00 09/01/24 08:23 IVPB 200 mls/hr Q24H TEMI Administration Insulin Human Regular 100 100 mls @ 1 mls/hr 08/29/24 16:00 09/01/24 15:47 units/ Sodium Chloride IV CONT 1 units/hr .Q24H TEMI 1 mls/hr Titration Protocol 1 UNITS/HR Dextrose 1,000 mls @ 100 mls/hr 08/29/24 15:45 Dextrose 5% 1,000 Ml IVPB PRN PRN Hypoglycemia Protocol Norepinephrine Bitartrate 8 mg in 250 mls @ 9.375 mls/hr 08/30/24 11:10 09/01/24 14:23 Levophed 8 Mg/D5w 250 Ml IV CONT 5 mcg/min .Q24H TEMI 9.38 mls/hr Titration Protocol 5 MCG/MIN Vancomycin HCl 500 mg in 100 mls @ 100 mls/hr 09/01/24 18:00 Vancomycin 500 Mg/Ns 100 Ml IVPB 09/01/24 18:59 ONCE ONE Amiodarone HCl/Dextrose 360 mg in 200 mls @ 33.333 mls/hr 09/01/24 15:25 09/01/24 15:36 Nexterone 360 Mg/D5w 200 Ml IV CONT 09/01/24 21:24 1 mg/min .Q6H ONE 33.33 mls/hr Administration Protocol 1 MG/MIN Amiodarone HCl/Dextrose 360 mg in 200 mls @ 16.667 mls/hr 09/01/24 21:25 Nexterone 360 Mg/D5w 200 Ml IV CONT 09/02/24 21:24 .Q12H TEMI Protocol 0.5 MG/MIN Insulin Aspart 4 - 8 units 08/20/24 21:05 08/29/24 12:41 Insulin Aspart (*Bkc) 100 Units/Ml SUB-Q 8 units Q4HR TEMI Administration Protocol Insulin Glargine 50 units 08/29/24 09:00 08/29/24 08:22 Insulin Glargine (*Bkc) 100 Units/Ml SUB-Q 50 units Q12H TEMI Administration Ipratropium [place] 0.5 mg 08/29/24 12:22 08/29/24 12:20 Ipratropium Br 0.02% Inh Soln 0.5 Mg/2.5 Ml Vial INHALATION 0.5 mg Q6HRT PRN Administration Wheezing Levalbuterol HCl 1.25 mg 08/29/24 14:00 09/01/24 14:12 Levalbuterol Neb 1.25 Mg/3 Ml INHALATION 1.25 mg Q6HRT TEMI Administration Levalbuterol HCl 1.25 mg 08/29/24 12:22 08/29/24 12:20 Levalbuterol Neb 1.25 Mg/3 Ml INHALATION 1.25 mg Q6HRT PRN Administration Wheezing Metoclopramide HCl 10 mg 08/23/24 08:00 09/01/24 14:31 Metoclopramide Hcl 10 Mg/10 Ml Soln Udc PO 10 mg Q6H TEMI Administration Multi-Ingred Cream/Lotion/Oil/Oint 1 applic 08/18/24 09:00 09/01/24 08:24 Mineral Oil/White Petrolatum Ointment EACH EYE 1 applic Q12HR TEMI Administration Pantoprazole Sodium 40 mg 08/28/24 21:00 09/01/24 08:23 Pantoprazole Sodium Iv 40 Mg Vial IV PUSH 40 mg Q12HR TEMI Administration Polyethylene Glycol 17 gm 08/15/24 22:20 08/28/24 08:19 Polyethylene Glycol 3350 17 Gm Powd.Pack PO 17 gm DAILY PRN Administration constipation Sodium Chloride 10 ml 08/19/24 22:00 09/01/24 15:36 Central Line Flush IV PUSH 10 ml Q8HR TEMI Administration Sodium Chloride 20 ml 08/19/24 18:43 Central Line Flush IV PUSH PRN PRN after blood draws Vancomycin HCl 1 each 08/30/24 06:14 Vancomycin For Hemodialysis IVPB PRN PRN Vancomycin Protocol Radiology Results: ITS Impressions Chest CTA 08/15/24 11:11 IMPRESSION: No pulmonary embolus. No thoracic aortic dissection. Right upper lobe infiltrate with patchy bilateral airspace disease, likely inflammatory/congestive rather than infectious. Small bilateral pleural effusions with adjacent atelectasis. Renal Ultrasound 08/19/24 14:10 IMPRESSION: No hydronephrosis or renal calculi. Findings suggesting medical renal disease. Findings within the upper pole of the right kidney consistent with patient's history, as detailed above. Chest/Abdomen/Pelvis CT 08/23/24 09:58 IMPRESSION: CHEST: 1. Bilateral pneumonia which is slightly decreased compared to previous study. Bilateral pleural effusion more on the right side. ABDOMEN/PELVIS: 1. No evidence of appendicitis, diverticulitis or intestinal obstruction. 2. Bilateral tiny kidney stones. 3. Hepatomegaly. 4. No evidence of ileus seen. ADDENDUM: 08/23/24 1042 Possibility of mass in the right kidney upper pole cannot be excluded. Abdomen X-Ray 08/23/24 16:53 IMPRESSION: 1. Dobbhoff type nasoenteric feeding tube with distal tip projecting over the gastric fundus. Venous Doppler Study 08/30/24 15:18 IMPRESSION: Negative bilateral lower extremity venous US. No deep vein thrombosis. Chest X-Ray 09/01/24 06:04 Impression: Bilateral airspace disease, left worse than right, which could reflect asymmetric pulmonary edema versus bilateral pneumonia. Correlate clinically. Small pleural effusions. Support tubes, as above. Head CT 09/01/24 10:03 IMPRESSION: 1. No acute intracranial process. 2. Age-related changes including moderate diffuse volume loss and moderate scattered white matter attenuation consistent with chronic small vessel ischemic disease. 3. Unchanged bilateral otomastoiditis effusions. Labs Labs: Laboratory Tests 09/01/24 05:03 09/01/24 05:03 Calcium 8.8 Phosphorus 6.8 H Magnesium 3.1 H Total Bilirubin 0.4 AST 77 H ALT 73 H Alkaline Phosphatase 104 Total Protein 7.0 Albumin 3.8 Vancomycin Trough 20.7 H Microbiology 08/29/24 08:22 Sputum Sputum Culture - Final
--- NOTE | 2024-09-01 14:20 | PC.NURSE ---
Pt's BP starting to drop while receiving dialysis; BP 85/52. Dr. Alvarado notified. New order received to restart Levophed at 5mcg/min.
[2024-09-01 14:29] LABS: Glucose Point of Care 213 mg/dl (65-105)
--- NOTE | 2024-09-01 15:25 | PC.NURSE ---
Pt heart rate has increased to 140's. Pt found to be in Afib RVR. Dr. Merrillly notified of change in pt condition. Pt is still receiving dialysis. New order to restart Amiodarone drip per protocol.
[2024-09-01] MEDS: AMIODARONE 150 MG/D5W 100 ML 150 MG/100 ML BAG 600 MG IV CONT (15:35)
[2024-09-01] MEDS: AMIODARONE 360 MG/D5W 200 ML 360 MG/200 ML BAG 33.33 MG IV CONT (15:36)
[2024-09-01 15:49] LABS: Glucose Point of Care 196 mg/dl (65-105)
[2024-09-01] MEDS: EPOETIN ALFA-EPBX 10,000 UNITS/ML VIAL 10000 UNITS IV PUSH (16:04)
[2024-09-01 17:13] LABS: Glucose Point of Care 170 mg/dl (65-105)
[2024-09-01] MEDS: HEPARIN SODIUM 1,000 UNITS/ML VIAL 4000 UNITS (17:49)
[2024-09-01 18:08] LABS: Glucose Point of Care 212 mg/dl (65-105)
[2024-09-01] MEDS: VANCOMYCIN 500 MG/NS 100 ML 500 MG/100 ML BAG 100 MG IVPB (18:24)
[2024-09-01 19:02] LABS: Glucose Point of Care 252 mg/dl (65-105)
[2024-09-01 20:23] LABS: Glucose Point of Care 288 mg/dl (65-105)
[2024-09-01 21:03] LABS: Glucose Point of Care 297 mg/dl (65-105)
[2024-09-01] MEDS: AMIODARONE 360 MG/D5W 200 ML 360 MG/200 ML BAG 16.67 MG IV CONT (21:17)
[2024-09-01 22:21] LABS: Glucose Point of Care 277 mg/dl (65-105)
[2024-09-01 23:14] LABS: Glucose Point of Care 265 mg/dl (65-105)
[2024-09-02] VITALS (51 sets, daily range): BP systolic 75–123; BP diastolic 47–72; PULSE 72–92; RESP 15–32; TEMP 37.1–38; O2SAT 93–100
[2024-09-02 00:32] LABS: Glucose Point of Care 226 mg/dl (65-105)
[2024-09-02 01:27] LABS: Glucose Point of Care 216 mg/dl (65-105)
[2024-09-02] MEDS: ACETYLCYSTEINE 20% INHAL SOLN 800 MG/4 ML VIAL 200 MG INHALATION ×4 (02:01→20:36)
[2024-09-02] MEDS: LEVALBUTEROL NEB 1.25 MG/3 ML INHALATION ×4 (02:01→20:36)
[2024-09-02 02:22] LABS: Glucose Point of Care 201 mg/dl (65-105)
[2024-09-02 03:20] LABS: Glucose Point of Care 190 mg/dl (65-105)
[2024-09-02 04:24] LABS: Glucose Point of Care 217 mg/dl (65-105)
[2024-09-02 04:59] LABS: Alveolar/Arterial O2 Gradient 79.8 mmHg; Base Excess ABG 1.8 mEq/l (+/-2.0); Carboxyhemoglobin 0.1 % THb (0-2.0); Device VENTILATOR; Fractional Inspired Oxygen 30 %; HCO3 ABG 24.8 mEq/l (22.0-26.0); Methemoglobin ABG 0.3 %THb (0-1.5); Modified Allen's Test Pass; Oxygen Content ABG 13.3 %vol (16.0-22.0); Oxygen Saturation ABG 97.8 % (95.0-100.0); Oxyhemoglobin 97.2 % THb (90.0-100.0); PCO2 ABG 32.8 mmHg (35.0-45.0); PO2 ABG 95.6 mmHg (80.0-100.0); PO2 FiO2 Ratio Arterial Blood 3.19 %; Reduced Hemoglobin 2.4 %THb (0-5.0); Site Drawn RIGHT RADIAL; Total Hemoglobin 9.6 g/dL (12.0-18.0); pH ABG 7.496 (7.350-7.450)
[2024-09-02 05:00] LABS: Arterial Blood Gas PEEP 8 cmH2O; Arterial Blood Gas Tidal Volume 320 ml; Arterial Blood Gas Vent Mode CMV; Arterial Blood Gas Ventilator rate 18 /MIN
[2024-09-02] MEDS: CENTRAL LINE FLUSH 10 ML IV PUSH ×3 (05:06→20:10)
[2024-09-02 05:13] LABS: Glucose Point of Care 230 mg/dl (65-105)
[2024-09-02 05:16] LABS: Hemoglobin 8.7 g/dL (12.0-15.0); Mean Corpuscular Hemoglobin 25.4 pg (26-34); Mean Corpuscular Volume 87.7 fl (80-100); Mean Platelet Volume 11.1 fl (7.4-10.4); Platelet Count Result 151 k/mm3 (150-375); Red Blood Count 3.42 M/mm3 (4.2-5.4); Red Cell Distribution Width 19.8 % (11.5-14.5); White Blood Count 13.1 K/mm3 (4.5-10.0)
[2024-09-02 05:30] LABS: Alanine Aminotransferase 117 U/L (6-35); Alkaline Phosphatase 138 U/L (38-126); Anion Gap 16 mmol/L (4-12); Aspartate Amino Transferase 119 U/L (14-36); Bilirubin,Total 0.6 mg/dL (0.2-1.3); Blood Urea Nitrogen 66 mg/dL (7-17); Carbon Dioxide 27 mmol/L (22-30); Chloride 95 mmol/L (98-107); Estimated CRCL calculation 14 ml/min; Estimated Glomerular Filt Rate 14; Glucose 212 mg/dL (65-110); Magnesium 2.8 mg/dL (1.6-2.3); Sodium 138 mmol/L (137-145)
[2024-09-02 05:40] LABS: Vancomycin Random 18.8 ug/mL (10-20)
[2024-09-02 06:12] LABS: Glucose Point of Care 247 mg/dl (65-105)
[2024-09-02 07:06] LABS: Glucose Point of Care 266 mg/dl (65-105)
--- NOTE | 2024-09-02 07:15 | WPDHPUPDATE1 ---
History and Physical Update Update Date/Time: 09/02/24 07:15 History and Physical has been reviewed, including an updated exam of the patient. There are NO changes in the patient's condition. Risks, benefits, and alternatives have been discussed and questions answered. Patient agrees to proceed with procedure.
--- NOTE | 2024-09-02 07:16 | P.CONGS_ITS ---
Assessment and Plan Assessment and plan (1) Renal failure: Qualifiers: Acute renal failure type: unspecified Chronic kidney disease stage: s tage 3 (moderate) Chronic kidney disease stage 3 subtype: unspecified whether 3a or 3b Renal failure chronicity: acute on chronic Qualified Code(s): N17.9 - Acute kidney failure, unspecified; N18.30 - Chronic kidney disease, stage 3 unspecified Code(s): N19 - Unspecified kidney failure Status: Acute Assessment and Plan: * Patient is in need of long-term dialysis access and currently only has a temporary Mahesh catheter in place. Will proceed with placement of tunneled dialysis catheter placement under ultrasound and fluoroscopic guidance in the operating room. Temporary catheter will be able to be removed once patient is tolerating dialysis through the tunneled dialysis catheter. (2) Acute respiratory failure with hypoxia: Code(s): J96.01 - Acute respiratory failure with hypoxia Status: Acute History of Present Illness Consult details Consult date: 09/02/24 Reason for consult: other (dialysis access) Requesting physician: Mitzi Patterson MD Narrative: This is an 84-year-old woman who I am asked to see for dialysis access. The patient is intubated and sedated in the ICU and unable to give history or review of systems. Chart is reviewed to develop a history and plan. She has been hospitalized since 08/15/2024 with NSTEMI, pneumonia, and acute respiratory failure.She has had acute on chronic renal failure secondary to her admitting diagnoses. A temporary Mahesh dialysis catheter was placed in the ICU for hemodialysis. She has been dialyzed through this without problems. She is going to need continued hemodialysis and will need a more permanent dialysis access for eventual discharge to long-term care facility. I am asked to see the patient to place a tunneled dialysis catheter. Review of Systems 2 Review of Systems: ROS unobtainable: Yes unobtainable due to endotracheal tube, unobtainable due to medical condition and unobtainable due to mental status PMFSH Past Medical History Medical History Recurrent urinary tract infection Fuchs' corneal dystrophy Cancer of kidney suspected kidney cancer being monitored for the last 4 years with recent increase in growth and plans for possible radiation therapy Coronary artery disease patient of Dr. Addy Norwood at [facility] Type 2 diabetes mellitus Congestive heart failure Hypertension Surgical History Surgical History History of appendectomy History of cholecystectomy History of ventral hernia repair with mesh History of arthroplasty of right knee History of suprapubic catheter History of coronary artery stent placement (2018) Social History Social History Social History: Healthcare power of attorney at law: Bacilio Salas, son. Code status: Full code. Smoking status: Never smoker Alcohol intake: never Substance use: never Spiritual care concerns: No Meds Home Medications and Allergies Home Medications ?Medication ?Instructions ?Recorded ?Confirmed ?Type Lactobacillus acidophilus 100 mg PO DAILY 08/15/24 08/15/24 History (Acidophilus capsule) acetaminophen 325 mg tablet 325 mg PO Q4H PRN pain 08/15/24 08/15/24 History amlodipine 5 mg tablet 5 mg PO DAILY 08/15/24 08/15/24 History arginine-vitamin C-vitamin E oral 9.2 g PO TIDWM 08/15/24 08/15/24 History 4.5 gram-156 mg/9.2 gram powder pkt (Arginaid) aspirin 81 mg capsule 81 mg PO DAILY 08/15/24 08/15/24 History bupropion HCl 300 mg 24 hr tablet, 300 mg PO DAILY 08/15/24 08/15/24 History extended release d-mannose 500 mg capsule (AZO 500 mg PO BID 08/15/24 08/15/24 History D-Mannose) fluticasone propionate 50 1 spray intranasal Q12H PRN nasal 08/15/24 08/15/24 History mcg/actuation nasal congestion spray,suspension furosemide 20 mg tablet 20 mg PO .COMPLEX 08/15/24 08/15/24 History guaifenesin 600 mg tablet, 600 mg PO Q12H 08/15/24 08/15/24 History extended release 12 hr (Mucinex) hydralazine 50 mg tablet 50 mg PO Q12H 08/15/24 08/15/24 History hydrocodone 5 mg-acetaminophen 325 1 tablet PO Q4-6H PRN pain (scale 08/15/24 08/15/24 History mg tablet score 4-6) insulin lispro 100 unit/mL 1 sliding scale dose subcut 08/15/24 08/15/24 History subcutaneous solution (Humalog USEASDIRECTD U-100 Insulin) isosorbide mononitrate 30 mg 30 mg PO DAILY 08/15/24 08/15/24 History tablet,extended release 24 hr krill oil 500 mg capsule 1 mg PO DAILY 08/15/24 08/15/24 History loratadine 10 mg tablet 10 mg PO DAILY 08/15/24 08/15/24 History losartan 25 mg tablet 25 mg PO DAILY 08/15/24 08/15/24 History meclizine 25 mg tablet 25 mg PO QID PRN dizziness 08/15/24 08/15/24 History metoprolol succinate 25 mg 25 mg PO DAILY 08/15/24 08/15/24 History tablet,extended release 24 hr montelukast 10 mg tablet 10 mg PO HS 08/15/24 08/15/24 History multivitamin,qd-sueb-Kw-FA-min 1 tablet PO Q12H 08/15/24 08/15/24 History polyethylene glycol 3350 17 gram 17 g PO DAILY PRN constipation 08/15/24 08/15/24 History oral powder packet (Miralax) potassium chloride 10 mEq 10 meq PO .COMPLEX 08/15/24 08/15/24 History tablet,extended release rosuvastatin 5 mg tablet 5 mg PO HS 08/15/24 08/15/24 History senna-docusate sodium tablet 1 tablet PO DAILY PRN constipation 08/15/24 08/15/24 History Allergies Allergy/AdvReac Type Severity Reaction Status Date / Time adhesive tape Allergy Unknown Verified 08/15/24 08:51 aripiprazole (From Abilify) Allergy Unknown Verified 08/15/24 08:51 carvedilol Allergy Unknown Verified 08/15/24 08:51 latex Allergy Unknown Verified 08/15/24 08:51 [id number] Reductase Allergy Unknown Verified 08/15/24 08:51 Inhibitor Sulfa (Sulfonamide Allergy Unknown Verified 08/15/24 08:51 Antibiotics) sulfasalazine Allergy Hives Verified 08/15/24 08:51 Sulfonylureas Allergy Unknown Verified 08/15/24 08:51 Vital Signs Vital Signs - 24 hr 09/01/24 07:36 09/01/24 07:48 09/01/24 07:53 Temperature Pulse Rate 94 95 93 Respiratory Rate 32 H 36 H Blood Pressure Pulse Oximetry 97 Oxygen Delivery Mechanical Ventilation Fraction of Inspired Oxygen 30 09/01/24 08:00 09/01/24 08:00 09/01/24 08:00 Temperature 98.9 F Pulse Rate 94 Respiratory Rate 35 H Blood Pressure 92/56 L Pulse Oximetry 97 Oxygen Delivery Mechanical Ventilation Fraction of Inspired Oxygen 30 30 09/01/24 08:00 09/01/24 08:00 09/01/24 10:00 Temperature Pulse Rate 92 93 94 Respiratory Rate Blood Pressure 92/56 L Pulse Oximetry Oxygen Delivery Fraction of Inspired Oxygen 09/01/24 10:00 09/01/24 10:00 09/01/24 10:00 Temperature Pulse Rate 94 100 85 Respiratory Rate 32 H 29 H Blood Pressure 121/81 121/81 91/55 L Pulse Oximetry 97 98 Oxygen Delivery Fraction of Inspired Oxygen 09/01/24 10:10 09/01/24 11:35 09/01/24 12:00 Temperature Pulse Rate 98 96 Respiratory Rate Blood Pressure Pulse Oximetry 99 97 Oxygen Delivery Mechanical Ventilation Mechanical Ventilation Mechanical Ventilation Fraction of Inspired Oxygen 30 30 30 09/01/24 12:00 09/01/24 12:00 09/01/24 12:00 Temperature Pulse Rate 98 98 Respiratory Rate Blood Pressure 97/61 L Pulse Oximetry Oxygen Delivery Fraction of Inspired Oxygen 30 09/01/24 12:00 09/01/24 13:11 09/01/24 13:11 Temperature 99.0 F 99.1 F Pulse Rate 98 95 Respiratory Rate 34 H 29 H Blood Pressure 97/61 L 97/58 L Pulse Oximetry 97 98 Oxygen Delivery Fraction of Inspired Oxygen 30 09/01/24 13:19 09/01/24 13:30 09/01/24 13:45 Temperature Pulse Rate 93 90 97 Respiratory Rate Blood Pressure 94/58 L 105/66 110/64 Pulse Oximetry Oxygen Delivery Fraction of Inspired Oxygen 09/01/24 14:00 09/01/24 14:00 09/01/24 14:00 Temperature Pulse Rate 98 99 95 Respiratory Rate 32 H Blood Pressure 93/56 L 93/56 L Pulse Oximetry 95 Oxygen Delivery Fraction of Inspired Oxygen 09/01/24 14:13 09/01/24 14:15 09/01/24 14:20 Temperature Pulse Rate 100 97 97 Respiratory Rate 33 H Blood Pressure 85/52 L Pulse Oximetry 92 Oxygen Delivery Mechanical Ventilation Fraction of Inspired Oxygen 30 09/01/24 14:23 09/01/24 14:25 09/01/24 14:30 Temperature Pulse Rate 97 98 95 Respiratory Rate 32 H Blood Pressure 85/52 L 102/61 Pulse Oximetry Oxygen Delivery Fraction of Inspired Oxygen 09/01/24 14:45 09/01/24 15:00 09/01/24 15:00 Temperature Pulse Rate 95 94 94 Respiratory Rate Blood Pressure 105/64 109/66 109/66 Pulse Oximetry Oxygen Delivery Fraction of Inspired Oxygen 09/01/24 15:15 09/01/24 15:30 09/01/24 15:35 Temperature Pulse Rate 93 133 H 123 H Respiratory Rate Blood Pressure 98/62 L 109/81 104/79 Pulse Oximetry Oxygen Delivery Fraction of Inspired Oxygen 09/01/24 15:36 09/01/24 15:45 09/01/24 15:46 Temperature Pulse Rate 144 H 122 H 133 H Respiratory Rate Blood Pressure 104/79 103/76 103/73 Pulse Oximetry Oxygen Delivery Fraction of Inspired Oxygen 09/01/24 16:00 09/01/24 16:00 09/01/24 16:00 Temperature 99.0 F Pulse Rate 128 H 124 H 124 H Respiratory Rate 29 H 29 H Blood Pressure 97/59 L 97/59 L Pulse Oximetry 97 97 Oxygen Delivery Mechanical Ventilation Fraction of Inspired Oxygen 30 09/01/24 16:00 09/01/24 16:00 09/01/24 16:00 Temperature Pulse Rate 126 H 130 H Respiratory Rate Blood Pressure 97/59 L Pulse Oximetry Oxygen Delivery Fraction of Inspired Oxygen 30 09/01/24 16:15 09/01/24 16:15 09/01/24 16:30 Temperature Pulse Rate 128 H 128 H 120 H Respiratory Rate Blood Pressure 101/68 101/68 106/78 Pulse Oximetry Oxygen Delivery Fraction of Inspired Oxygen 09/01/24 16:30 09/01/24 16:45 09/01/24 16:45 Temperature Pulse Rate 120 H 117 H 117 H Respiratory Rate Blood Pressure 106/78 100/69 100/69 Pulse Oximetry Oxygen Delivery Fraction of Inspired Oxygen 09/01/24 17:00 09/01/24 17:00 09/01/24 17:07 Temperature Pulse Rate 119 H 120 H 117 H Respiratory Rate Blood Pressure 97/73 L 97/73 L Pulse Oximetry 98 Oxygen Delivery Mechanical Ventilation Fraction of Inspired Oxygen 30 09/01/24 17:15 09/01/24 17:15 09/01/24 17:30 Temperature Pulse Rate 132 H 121 H 138 H Respiratory Rate Blood Pressure 99/61 L 99/61 L 105/64 Pulse Oximetry Oxygen Delivery Fraction of Inspired Oxygen 09/01/24 17:34 09/01/24 17:45 09/01/24 18:00 Temperature 99.5 F Pulse Rate 121 H 127 H 129 H Respiratory Rate 29 H Blood Pressure 92/69 L 106/67 Pulse Oximetry 98 Oxygen Delivery Fraction of Inspired Oxygen 09/01/24 18:00 09/01/24 18:06 09/01/24 18:16 Temperature Pulse Rate 129 H 122 H 116 H Respiratory Rate 30 H Blood Pressure 98/72 L 98/72 L 112/79 Pulse Oximetry 99 Oxygen Delivery Fraction of Inspired Oxygen 09/01/24 18:30 09/01/24 18:47 09/01/24 18:59 Temperature Pulse Rate 137 H 131 H 100 Respiratory Rate Blood Pressure 121/83 111/81 111/68 Pulse Oximetry Oxygen Delivery Fraction of Inspired Oxygen 09/01/24 20:00 09/01/24 20:00 09/01/24 20:00 Temperature 100.4 F H Pulse Rate 94 94 Respiratory Rate 31 H Blood Pressure 106/64 106/64 Pulse Oximetry 97 Oxygen Delivery Fraction of Inspired Oxygen 30 09/01/24 20:00 09/01/24 20:00 09/01/24 20:00 Temperature Pulse Rate 94 92 93 Respiratory Rate 31 H Blood Pressure 106/72 Pulse Oximetry 97 Oxygen Delivery Mechanical Ventilation Fraction of Inspired Oxygen 30 09/01/24 20:15 09/01/24 20:42 09/01/24 20:52 Temperature Pulse Rate 94 94 92 Respiratory Rate 32 H 30 H 28 H Blood Pressure 111/61 Pulse Oximetry 96 Oxygen Delivery Fraction of Inspired Oxygen 09/01/24 20:53 09/01/24 21:00 09/01/24 21:02 Temperature Pulse Rate 95 94 94 Respiratory Rate 31 H Blood Pressure 107/65 107/65 Pulse Oximetry 96 96 Oxygen Delivery Mechanical Ventilation Fraction of Inspired Oxygen 30 09/01/24 21:15 09/01/24 21:17 09/01/24 22:00 Temperature 100.7 F H Pulse Rate 93 93 87 Respiratory Rate 30 H 30 H Blood Pressure 105/63 105/63 105/61 Pulse Oximetry 95 99 Oxygen Delivery Fraction of Inspired Oxygen 09/01/24 22:00 09/01/24 22:00 09/01/24 22:15 Temperature Pulse Rate 92 92 89 Respiratory Rate Blood Pressure 106/76 108/66 Pulse Oximetry Oxygen Delivery Fraction of Inspired Oxygen 09/01/24 22:15 09/01/24 22:30 09/01/24 22:39 Temperature Pulse Rate 88 79 87 Respiratory Rate 30 H 30 H Blood Pressure 108/66 101/61 Pulse Oximetry 98 98 100 Oxygen Delivery Mechanical Ventilation Fraction of Inspired Oxygen 30 09/02/24 00:00 09/02/24 00:00 09/02/24 00:00 Temperature 100.4 F H Pulse Rate 86 85 Respiratory Rate 30 H 30 H Blood Pressure 102/57 L Pulse Oximetry 97 98 Oxygen Delivery Mechanical Ventilation Fraction of Inspired Oxygen 30 30 09/02/24 00:00 09/02/24 00:00 09/02/24 00:00 Temperature Pulse Rate 80 80 87 Respiratory Rate Blood Pressure 94/57 L 94/57 L Pulse Oximetry Oxygen Delivery Fraction of Inspired Oxygen 09/02/24 02:00 09/02/24 02:00 09/02/24 02:00 Temperature Pulse Rate 89 89 88 Respiratory Rate 30 H Blood Pressure 103/65 103/65 103/65 Pulse Oximetry 97 Oxygen Delivery Fraction of Inspired Oxygen 09/02/24 02:00 09/02/24 02:02 09/02/24 02:04 Temperature Pulse Rate 85 87 86 Respiratory Rate 30 H Blood Pressure Pulse Oximetry 97 Oxygen Delivery Mechanical Ventilation Fraction of Inspired Oxygen 30 09/02/24 02:11 09/02/24 04:00 09/02/24 04:00 Temperature 99.8 F H Pulse Rate 86 81 Respiratory Rate 30 H 30 H Blood Pressure 100/60 Pulse Oximetry 97 Oxygen Delivery Fraction of Inspired Oxygen 30 09/02/24 04:00 09/02/24 04:00 09/02/24 04:00 Temperature Pulse Rate 81 87 86 Respiratory Rate 30 H Blood Pressure 100/60 100/60 Pulse Oximetry 97 Oxygen Delivery Mechanical Ventilation Fraction of Inspired Oxygen 30 09/02/24 04:00 09/02/24 04:55 09/02/24 06:00 Temperature Pulse Rate 80 86 83 Respiratory Rate Blood Pressure Pulse Oximetry 97 Oxygen Delivery Mechanical Ventilation Fraction of Inspired Oxygen 30 09/02/24 06:00 09/02/24 06:00 09/02/24 06:00 Temperature Pulse Rate 83 83 83 Respiratory Rate 30 H Blood Pressure 103/63 103/63 103/63 Pulse Oximetry 96 Oxygen Delivery Fraction of Inspired Oxygen Exam 2 Narrative: Patient intubated and sedated Const: General: patient obtunded and average body habitus Nutritional Appearance: average body habitus Orientation/consciousness: patient obtunded Limitations: altered mental status HENMT: Head: normal to inspection, normocephalic and atraumatic Ears: e xternal ears normal Face/Nose/Sinus: Normal external nose present and Normal nares present Mouth: Yes Normal oral and palatal mucosa present Eyes: Periorbital: periorbital findings normal Eyelids: eyelids normal C onjunctivae: conjunctivae normal Sclera: sclerae normal Neck: Neck: normal visual inspection, no lymphadenopathy, trachea midline, supple and no JVD Resp: Effort & Inspection: symmetric chest movement Auscultation: clear to auscultation bilaterally Percussion: percussion normal Cardio: Rate: regular rate Rhythm: regular rhythm Heart sounds: S1 normal heart sound present and S2 normal heart sound present Peripheral pulses: Peripheral pulses 2+ throughout Neuro: General: patient obtunded, Unable to assess gait and other ( unable to perform full neuro exam due to intubation and sedation) Gait exam (Neuro): U nable to assess gait Extrem: General: no pedal edema Right upper extremity: normal to inspection Left upper extremity: normal to inspection Results Labs 09/02/24 05:05 09/02/24 05:05 Labs: Abnormal lab results 09/01/24 09/01/24 09/01/24 Range/Units 07:38 08:40 09:32 WBC (4.5-10.0) K/mm3 RBC (4.2-5.4) M/mm3 Hgb (12.0-15.0) g/dL Hct (37.0-47.0) % MCH (26-34) pg MCHC (32-36) g/dl RDW (11.5-14.5) % MPV (7.4-10.4) fl ABG pH (7.350-7.450) ABG pCO2 (35.0-45.0) mmHg ABG O2 Content (16.0-22.0) %vol Total Hemoglobin (12.0-18.0) g/dL Chloride (98-107) mmol/L Anion Gap (4-12) mmol/L BUN (7-17) mg/dL Creatinine (0.7-1.0) mg/dL Estimated GFR (59 - ) Glucose (65-110) mg/dL POC Capillary Glucose 223 H 210 H 247 H (65-105) mg/dl Phosphorus (2.5-4.5) mg/dL Magnesium (1.6-2.3) mg/dL AST (14-36) U/L ALT (6-35) U/L Alkaline Phosphatase (38-126) U/L 09/01/24 09/01/24 09/01/24 Range/Units 10:31 11:29 12:28 WBC (4.5-10.0) K/mm3 RBC (4.2-5.4) M/mm3 Hgb (12.0-15.0) g/dL Hct (37.0-47.0) % MCH (26-34) pg MCHC (32-36) g/dl RDW (11.5-14.5) % MPV (7.4-10.4) fl ABG pH (7.350-7.450) ABG pCO2 (35.0-45.0) mmHg ABG O2 Content (16.0-22.0) %vol Total Hemoglobin (12.0-18.0) g/dL Chloride (98-107) mmol/L Anion Gap (4-12) mmol/L BUN (7-17) mg/dL Creatinine (0.7-1.0) mg/dL Estimated GFR (59 - ) Glucose (65-110) mg/dL POC Capillary Glucose 244 H 240 H 269 H (65-105) mg/dl Phosphorus (2.5-4.5) mg/dL Magnesium (1.6-2.3) mg/dL AST (14-36) U/L ALT (6-35) U/L Alkaline Phosphatase (38-126) U/L 09/01/24 09/01/24 09/01/24 Range/Units 13:30 14:28 15:46 WBC (4.5-10.0) K/mm3 RBC (4.2-5.4) M/mm3 Hgb (12.0-15.0) g/dL Hct (37.0-47.0) % MCH (26-34) pg MCHC (32-36) g/dl RDW (11.5-14.5) % MPV (7.4-10.4) fl ABG pH (7.350-7.450) ABG pCO2 (35.0-45.0) mmHg ABG O2 Content (16.0-22.0) %vol Total Hemoglobin (12.0-18.0) g/dL Chloride (98-107) mmol/L Anion Gap (4-12) mmol/L BUN (7-17) mg/dL Creatinine (0.7-1.0) mg/dL Estimated GFR (59 - ) Glucose (65-110) mg/dL POC Capillary Glucose 238 H 213 H 196 H (65-105) mg/dl Phosphorus (2.5-4.5) mg/dL Magnesium (1.6-2.3) mg/dL AST (14-36) U/L ALT (6-35) U/L Alkaline Phosphatase (38-126) U/L 09/01/24 09/01/24 09/01/24 Range/Units 17:04 18:06 18:58 WBC (4.5-10.0) K/mm3 RBC (4.2-5.4) M/mm3 Hgb (12.0-15.0) g/dL Hct (37.0-47.0) % MCH (26-34) pg MCHC (32-36) g/dl RDW (11.5-14.5) % MPV (7.4-10.4) fl ABG pH (7.350-7.450) ABG pCO2 (35.0-45.0) mmHg ABG O2 Content (16.0-22.0) %vol Total Hemoglobin (12.0-18.0) g/dL Chloride (98-107) mmol/L Anion Gap (4-12) mmol/L BUN (7-17) mg/dL Creatinine (0.7-1.0) mg/dL Estimated GFR (59 - ) Glucose (65-110) mg/dL POC Capillary Glucose 170 H 212 H 252 H (65-105) mg/dl Phosphorus (2.5-4.5) mg/dL Magnesium (1.6-2.3) mg/dL AST (14-36) U/L ALT (6-35) U/L Alkaline Phosphatase (38-126) U/L 09/01/24 09/01/24 09/01/24 Range/Units 20:04 20:59 22:15 WBC (4.5-10.0) K/mm3 RBC (4.2-5.4) M/mm3 Hgb (12.0-15.0) g/dL Hct (37.0-47.0) % MCH (26-34) pg MCHC (32-36) g/dl RDW (11.5-14.5) % MPV (7.4-10.4) fl ABG pH (7.350-7.450) ABG pCO2 (35.0-45.0) mmHg ABG O2 Content (16.0-22.0) %vol Total Hemoglobin (12.0-18.0) g/dL Chloride (98-107) mmol/L Anion Gap (4-12) mmol/L BUN (7-17) mg/dL Creatinine (0.7-1.0) mg/dL Estimated GFR (59 - ) Glucose (65-110) mg/dL POC Capillary Glucose 288 H 297 H 277 H (65-105) mg/dl Phosphorus (2.5-4.5) mg/dL Magnesium (1.6-2.3) mg/dL AST (14-36) U/L ALT (6-35) U/L Alkaline Phosphatase (38-126) U/L 09/01/24 09/02/24 09/02/24 Range/Units 23:11 00:17 01:24 WBC (4.5-10.0) K/mm3 RBC (4.2-5.4) M/mm3 Hgb (12.0-15.0) g/dL Hct (37.0-47.0) % MCH (26-34) pg MCHC (32-36) g/dl RDW (11.5-14.5) % MPV (7.4-10.4) fl ABG pH (7.350-7.450) ABG pCO2 (35.0-45.0) mmHg ABG O2 Content (16.0-22.0) %vol Total Hemoglobin (12.0-18.0) g/dL Chloride (98-107) mmol/L Anion Gap (4-12) mmol/L BUN (7-17) mg/dL Creatinine (0.7-1.0) mg/dL Estimated GFR (59 - ) Glucose (65-110) mg/dL POC Capillary Glucose 265 H 226 H 216 H (65-105) mg/dl Phosphorus (2.5-4.5) mg/dL Magnesium (1.6-2.3) mg/dL AST (14-36) U/L ALT (6-35) U/L Alkaline Phosphatase (38-126) U/L 09/02/24 09/02/24 09/02/24 Range/Units 02:19 03:16 04:17 WBC (4.5-10.0) K/mm3 RBC (4.2-5.4) M/mm3 Hgb (12.0-15.0) g/dL Hct (37.0-47.0) % MCH (26-34) pg MCHC (32-36) g/dl RDW (11.5-14.5) % MPV (7.4-10.4) fl ABG pH (7.350-7.450) ABG pCO2 (35.0-45.0) mmHg ABG O2 Content (16.0-22.0) %vol Total Hemoglobin (12.0-18.0) g/dL Chloride (98-107) mmol/L Anion Gap (4-12) mmol/L BUN (7-17) mg/dL Creatinine (0.7-1.0) mg/dL Estimated GFR (59 - ) Glucose (65-110) mg/dL POC Capillary Glucose 201 H 190 H 217 H (65-105) mg/dl Phosphorus (2.5-4.5) mg/dL Magnesium (1.6-2.3) mg/dL AST (14-36) U/L ALT (6-35) U/L Alkaline Phosphatase (38-126) U/L 09/02/24 09/02/24 09/02/24 Range/Units 04:40 05:01 05:05 WBC 13.1 H (4.5-10.0) K/mm3 RBC 3.42 L (4.2-5.4) M/mm3 Hgb 8.7 L (12.0-15.0) g/dL Hct 30.0 L (37.0-47.0) % MCH 25.4 L (26-34) pg MCHC 29.0 L (32-36) g/dl RDW 19.8 H (11.5-14.5) % MPV 11.1 H (7.4-10.4) fl ABG pH 7.496 H (7.350-7.450) ABG pCO2 32.8 L (35.0-45.0) mmHg ABG O2 Content 13.3 L (16.0-22.0) %vol Total Hemoglobin 9.6 L (12.0-18.0) g/dL Chloride 95 L (98-107) mmol/L Anion Gap 16 H (4-12) mmol/L BUN 66 H D (7-17) mg/dL Creatinine 3.15 H (0.7-1.0) mg/dL Estimated GFR 14 L (59 - ) Glucose 212 H (65-110) mg/dL POC Capillary Glucose 230 H (65-105) mg/dl Phosphorus 5.0 H (2.5-4.5) mg/dL Magnesium 2.8 H (1.6-2.3) mg/dL AST 119 H (14-36) U/L ALT 117 H (6-35) U/L Alkaline Phosphatase 138 H (38-126) U/L 09/02/24 09/02/24 Range/Units 06:08 07:05 WBC (4.5-10.0) K/mm3 RBC (4.2-5.4) M/mm3 Hgb (12.0-15.0) g/dL Hct (37.0-47.0) % MCH (26-34) pg MCHC (32-36) g/dl RDW (11.5-14.5) % MPV (7.4-10.4) fl ABG pH (7.350-7.450) ABG pCO2 (35.0-45.0) mmHg ABG O2 Content (16.0-22.0) %vol Total Hemoglobin (12.0-18.0) g/dL Chloride (98-107) mmol/L Anion Gap (4-12) mmol/L BUN (7-17) mg/dL Creatinine (0.7-1.0) mg/dL Estimated GFR (59 - ) Glucose (65-110) mg/dL POC Capillary Glucose 247 H 266 H (65-105) mg/dl Phosphorus (2.5-4.5) mg/dL Magnesium (1.6-2.3) mg/dL AST (14-36) U/L ALT (6-35) U/L Alkaline Phosphatase (38-126) U/L Diabetes panel 09/02/24 Range/Units 05:05 Sodium 138 (137-145) mmol/L Potassium 4.0 (3.4-5.0) mmol/L Chloride 95 L (98-107) mmol/L Carbon Dioxide 27 (22-30) mmol/L BUN 66 H D (7-17) mg/dL Creatinine 3.15 H (0.7-1.0) mg/dL Glucose 212 H (65-110) mg/dL Calcium 9.0 (8.4-10.2) mg/dL AST 119 H (14-36) U/L ALT 117 H (6-35) U/L Alkaline Phosphatase 138 H (38-126) U/L Total Protein 8.0 (6.3-8.2) g/dL Albumin 4.0 (3.5-5.1) g/dL Calcium panel 09/02/24 Range/Units 05:05 Calcium 9.0 (8.4-10.2) mg/dL Phosphorus 5.0 H (2.5-4.5) mg/dL Albumin 4.0 (3.5-5.1) g/dL Pituitary panel 09/02/24 Range/Units 05:05 Sodium 138 (137-145) mmol/L Potassium 4.0 (3.4-5.0) mmol/L Chloride 95 L (98-107) mmol/L Carbon Dioxide 27 (22-30) mmol/L BUN 66 H D (7-17) mg/dL Creatinine 3.15 H (0.7-1.0) mg/dL Glucose 212 H (65-110) mg/dL Calcium 9.0 (8.4-10.2) mg/dL Adrenal panel 09/02/24 Range/Units 05:05 Sodium 138 (137-145) mmol/L Potassium 4.0 (3.4-5.0) mmol/L Chloride 95 L (98-107) mmol/L Carbon Dioxide 27 (22-30) mmol/L BUN 66 H D (7-17) mg/dL Creatinine 3.15 H (0.7-1.0) mg/dL Glucose 212 H (65-110) mg/dL Calcium 9.0 (8.4-10.2) mg/dL Total Bilirubin 0.6 (0.2-1.3) mg/dL AST 119 H (14-36) U/L ALT 117 H (6-35) U/L Alkaline Phosphatase 138 H (38-126) U/L Total Protein 8.0 (6.3-8.2) g/dL Albumin 4.0 (3.5-5.1) g/dL All other labs normal.
--- NOTE | 2024-09-02 07:27 | P.PNAN_ITS ---
Anes - Initial Pre Proc Eval Procedure: Operation Date: 08/31/24 12:00 Proposed Procedures p Percutaneous Endoscopic Gastrostomy - Rl Gonzalez MD Operation Date: 09/02/24 07:30 Proposed Procedures p Insertion Duraflow Permacath Tunneled Dialysis Catheter - Franc Carney DO Operation Date: 09/03/24 11:00 Proposed Procedures p Tracheostomy - Mor Orellana MD Date/Time: 09/02/24 07:27 Surgeon: Jalyn Lindsay MD Pre Op Diagnosis: Sepsis/PNA/NSTEMI Patient Data Age: 84 Gender: F Height: 1.68 m Weight: 85.5 kg Last Vital Signs Temp 37.7 C H 09/02/24 04:00 Pulse 83 09/02/24 06:00 Resp 30 H 09/02/24 06:00 BP 103/63 09/02/24 06:00 Pulse Ox 96 09/02/24 06:00 O2 Del Method Mechanical Ventilation 09/02/24 04:55 O2 Flow Rate 50 08/17/24 23:50 FiO2 30 09/02/24 04:55 Allergies Allergy/AdvReac Type Severity Reaction Status Date / Time adhesive tape Allergy Unknown Verified 08/15/24 08:51 aripiprazole (From Abilify) Allergy Unknown Verified 08/15/24 08:51 carvedilol Allergy Unknown Verified 08/15/24 08:51 latex Allergy Unknown Verified 08/15/24 08:51 Rlzrbwm-KCS-BjJ Reductase Allergy Unknown Verified 08/15/24 08:51 Inhibitor Sulfa (Sulfonamide Allergy Unknown Verified 08/15/24 08:51 Antibiotics) sulfasalazine Allergy Hives Verified 08/15/24 08:51 Sulfonylureas Allergy Unknown Verified 08/15/24 08:51 Home Medications ?Medication ?Instructions ?Recorded ?Confirmed ?Type Lactobacillus acidophilus 100 mg PO DAILY 08/15/24 08/15/24 History (Acidophilus capsule) acetaminophen 325 mg tablet 325 mg PO Q4H PRN pain 08/15/24 08/15/24 History amlodipine 5 mg tablet 5 mg PO DAILY 08/15/24 08/15/24 History arginine-vitamin C-vitamin E oral 9.2 g PO TIDWM 08/15/24 08/15/24 History 4.5 gram-156 mg/9.2 gram powder pkt (Arginaid) aspirin 81 mg capsule 81 mg PO DAILY 08/15/24 08/15/24 History bupropion HCl 300 mg 24 hr tablet, 300 mg PO DAILY 08/15/24 08/15/24 History extended release d-mannose 500 mg capsule (AZO 500 mg PO BID 08/15/24 08/15/24 History D-Mannose) fluticasone propionate 50 1 spray intranasal Q12H PRN nasal 08/15/24 08/15/24 History mcg/actuation nasal congestion spray,suspension furosemide 20 mg tablet 20 mg PO .COMPLEX 08/15/24 08/15/24 History guaifenesin 600 mg tablet, 600 mg PO Q12H 08/15/24 08/15/24 History extended release 12 hr (Mucinex) hydralazine 50 mg tablet 50 mg PO Q12H 08/15/24 08/15/24 History hydrocodone 5 mg-acetaminophen 325 1 tablet PO Q4-6H PRN pain (scale 08/15/24 08/15/24 History mg tablet score 4-6) insulin lispro 100 unit/mL 1 sliding scale dose subcut 08/15/24 08/15/24 History subcutaneous solution (Humalog USEASDIRECTD U-100 Insulin) isosorbide mononitrate 30 mg 30 mg PO DAILY 08/15/24 08/15/24 History tablet,extended release 24 hr krill oil 500 mg capsule 1 mg PO DAILY 08/15/24 08/15/24 History loratadine 10 mg tablet 10 mg PO DAILY 08/15/24 08/15/24 History losartan 25 mg tablet 25 mg PO DAILY 08/15/24 08/15/24 History meclizine 25 mg tablet 25 mg PO QID PRN dizziness 08/15/24 08/15/24 History metoprolol succinate 25 mg 25 mg PO DAILY 08/15/24 08/15/24 History tablet,extended release 24 hr montelukast 10 mg tablet 10 mg PO HS 08/15/24 08/15/24 History multivitamin,sf-zqjq-Lx-FA-min 1 tablet PO Q12H 08/15/24 08/15/24 History polyethylene glycol 3350 17 gram 17 g PO DAILY PRN constipation 08/15/24 08/15/24 History oral powder packet (Miralax) potassium chloride 10 mEq 10 meq PO .COMPLEX 08/15/24 08/15/24 History tablet,extended release rosuvastatin 5 mg tablet 5 mg PO HS 08/15/24 08/15/24 History senna-docusate sodium tablet 1 tablet PO DAILY PRN constipation 08/15/24 History Laboratory Tests 09/01/24 09/01/24 09/01/24 07:38 08:40 09:32 WBC RBC Hgb Hct MCV MCH MCHC RDW Plt Count MPV % Immature Plt Fraction Puncture Site ABG pH ABG pCO2 ABG pO2 ABG PO2/FiO2 Ratio ABG HCO3 ABG O2 Saturation ABG O2 Content ABG Base Excess A-a Gradient Oxyhemoglobin Carboxyhemoglobin Methemoglobin Reduced Hemoglobin Total Hemoglobin O2 Delivery Device O2 Liters/Min Minute Volume Vent Rate Vent Mode FiO2 Tidal Volume PEEP Peak Inspir Pressure Pressure Support Sodium Potassium Chloride Carbon Dioxide Anion Gap BUN Creatinine Estim Creat Clear Calc Estimated GFR Glucose POC Capillary Glucose 223 H mg/dl 210 H mg/dl 247 H mg/dl (65-105) (65-105) (65-105) Calcium Phosphorus Magnesium Total Bilirubin AST ALT Alkaline Phosphatase Total Protein Albumin Random Vancomycin 09/01/24 09/01/24 09/01/24 10:31 11:29 12:28 WBC RBC Hgb Hct MCV MCH MCHC RDW Plt Count MPV % Immature Plt Fraction Puncture Site ABG pH ABG pCO2 ABG pO2 ABG PO2/FiO2 Ratio ABG HCO3 ABG O2 Saturation ABG O2 Content ABG Base Excess A-a Gradient Oxyhemoglobin Carboxyhemoglobin Methemoglobin Reduced Hemoglobin Total Hemoglobin O2 Delivery Device O2 Liters/Min Minute Volume Vent Rate Vent Mode FiO2 Tidal Volume PEEP Peak Inspir Pressure Pressure Support Sodium Potassium Chloride Carbon Dioxide Anion Gap BUN Creatinine Estim Creat Clear Calc Estimated GFR Glucose POC Capillary Glucose 244 H mg/dl 240 H mg/dl 269 H mg/dl (65-105) (65-105) (65-105) Calcium Phosphorus Magnesium Total Bilirubin AST ALT Alkaline Phosphatase Total Protein Albumin Random Vancomycin 09/01/24 09/01/24 09/01/24 13:30 14:28 15:46 WBC RBC Hgb Hct MCV MCH MCHC RDW Plt Count MPV % Immature Plt Fraction Puncture Site ABG pH ABG pCO2 ABG pO2 ABG PO2/FiO2 Ratio ABG HCO3 ABG O2 Saturation ABG O2 Content ABG Base Excess A-a Gradient Oxyhemoglobin Carboxyhemoglobin Methemoglobin Reduced Hemoglobin Total Hemoglobin O2 Delivery Device O2 Liters/Min Minute Volume Vent Rate Vent Mode FiO2 Tidal Volume PEEP Peak Inspir Pressure Pressure Support Sodium Potassium Chloride Carbon Dioxide Anion Gap BUN Creatinine Estim Creat Clear Calc Estimated GFR Glucose POC Capillary Glucose 238 H mg/dl 213 H mg/dl 196 H mg/dl (65-105) (65-105) (65-105) Calcium Phosphorus Magnesium Total Bilirubin AST ALT Alkaline Phosphatase Total Protein Albumin Random Vancomycin 09/01/24 09/01/24 09/01/24 17:04 18:06 18:58 WBC RBC Hgb Hct MCV MCH MCHC RDW Plt Count MPV % Immature Plt Fraction Puncture Site ABG pH ABG pCO2 ABG pO2 ABG PO2/FiO2 Ratio ABG HCO3 ABG O2 Saturation ABG O2 Content ABG Base Excess A-a Gradient Oxyhemoglobin Carboxyhemoglobin Methemoglobin Reduced Hemoglobin Total Hemoglobin O2 Delivery Device O2 Liters/Min Minute Volume Vent Rate Vent Mode FiO2 Tidal Volume PEEP Peak Inspir Pressure Pressure Support Sodium Potassium Chloride Carbon Dioxide Anion Gap BUN Creatinine Estim Creat Clear Calc Estimated GFR Glucose POC Capillary Glucose 170 H mg/dl 212 H mg/dl 252 H mg/dl (65-105) (65-105) (65-105) Calcium Phosphorus Magnesium Total Bilirubin AST ALT Alkaline Phosphatase Total Protein Albumin Random Vancomycin 09/01/24 09/01/24 09/01/24 20:04 20:59 22:15 WBC RBC Hgb Hct MCV MCH MCHC RDW Plt Count MPV % Immature Plt Fraction Puncture Site ABG pH ABG pCO2 ABG pO2 ABG PO2/FiO2 Ratio ABG HCO3 ABG O2 Saturation ABG O2 Content ABG Base Excess A-a Gradient Oxyhemoglobin Carboxyhemoglobin Methemoglobin Reduced Hemoglobin Total Hemoglobin O2 Delivery Device O2 Liters/Min Minute Volume Vent Rate Vent Mode FiO2 Tidal Volume PEEP Peak Inspir Pressure Pressure Support Sodium Potassium Chloride Carbon Dioxide Anion Gap BUN Creatinine Estim Creat Clear Calc Estimated GFR Glucose POC Capillary Glucose 288 H mg/dl 297 H mg/dl 277 H mg/dl (65-105) (65-105) (65-105) Calcium Phosphorus Magnesium Total Bilirubin AST ALT Alkaline Phosphatase Total Protein Albumin Random Vancomycin 09/01/24 09/02/24 09/02/24 23:11 00:17 01:24 WBC RBC Hgb Hct MCV MCH MCHC RDW Plt Count MPV % Immature Plt Fraction Puncture Site ABG pH ABG pCO2 ABG pO2 ABG PO2/FiO2 Ratio ABG HCO3 ABG O2 Saturation ABG O2 Content ABG Base Excess A-a Gradient Oxyhemoglobin Carboxyhemoglobin Methemoglobin Reduced Hemoglobin Total Hemoglobin O2 Delivery Device O2 Liters/Min Minute Volume Vent Rate Vent Mode FiO2 Tidal Volume PEEP Peak Inspir Pressure Pressure Support Sodium Potassium Chloride Carbon Dioxide Anion Gap BUN Creatinine Estim Creat Clear Calc Estimated GFR Glucose POC Capillary Glucose 265 H mg/dl 226 H mg/dl 216 H mg/dl (65-105) (65-105) (65-105) Calcium Phosphorus Magnesium Total Bilirubin AST ALT Alkaline Phosphatase Total Protein Albumin Random Vancomycin 09/02/24 09/02/24 09/02/24 02:19 03:16 04:17 WBC RBC Hgb Hct MCV MCH MCHC RDW Plt Count MPV % Immature Plt Fraction Puncture Site ABG pH ABG pCO2 ABG pO2 ABG PO2/FiO2 Ratio ABG HCO3 ABG O2 Saturation ABG O2 Content ABG Base Excess A-a Gradient Oxyhemoglobin Carboxyhemoglobin Methemoglobin Reduced Hemoglobin Total Hemoglobin O2 Delivery Device O2 Liters/Min Minute Volume Vent Rate Vent Mode FiO2 Tidal Volume PEEP Peak Inspir Pressure Pressure Support Sodium Potassium Chloride Carbon Dioxide Anion Gap BUN Creatinine Estim Creat Clear Calc Estimated GFR Glucose POC Capillary Glucose 201 H mg/dl 190 H mg/dl 217 H mg/dl (65-105) (65-105) (65-105) Calcium Phosphorus Magnesium Total Bilirubin AST ALT Alkaline Phosphatase Total Protein Albumin Random Vancomycin 09/02/24 09/02/24 09/02/24 04:40 05:01 05:05 WBC 13.1 H K/mm3 (4.5-10.0) RBC 3.42 L M/mm3 (4.2-5.4) Hgb 8.7 L g/dL (12.0-15.0) Hct 30.0 L % (37.0-47.0) MCV 87.7 fl (80-100) MCH 25.4 L pg (26-34) MCHC 29.0 L g/dl (32-36) RDW 19.8 H % (11.5-14.5) Plt Count 151 k/mm3 (150-375) MPV 11.1 H fl (7.4-10.4) % Immature Plt Fraction 7.0 % (0.9-11.2) Puncture Site Right radial ABG pH 7.496 H (7.350-7.450) ABG pCO2 32.8 L mmHg (35.0-45.0) ABG pO2 95.6 mmHg (80.0-100.0) ABG PO2/FiO2 Ratio 3.19 % ABG HCO3 24.8 mEq/l (22.0-26.0) ABG O2 Saturation 97.8 % (95.0-100.0) ABG O2 Content 13.3 L %vol (16.0-22.0) ABG Base Excess 1.8 mEq/l (+/-2.0) A-a Gradient 79.8 mmHg Oxyhemoglobin 97.2 % THb (90.0-100.0) Carboxyhemoglobin 0.1 % THb (0-2.0) Methemoglobin 0.3 %THb (0-1.5) Reduced Hemoglobin 2.4 %THb (0-5.0) Total Hemoglobin 9.6 L g/dL (12.0-18.0) O2 Delivery Device Ventilator O2 Liters/Min Not Reportable Minute Volume Not Reportable Vent Rate 18 /MIN Vent Mode Cmv FiO2 30 % Tidal Volume 320 ml PEEP 8 cmH2O Peak Inspir Pressure Not Reportable Pressure Support Not Reportable Sodium 138 mmol/L (137-145) Potassium 4.0 mmol/L (3.4-5.0) Chloride 95 L mmol/L (98-107) Carbon Dioxide 27 mmol/L (22-30) Anion Gap 16 H mmol/L (4-12) BUN 66 H D mg/dL (7-17) Creatinine 3.15 H mg/dL (0.7-1.0) Estim Creat Clear Calc 14 ml/min Estimated GFR 14 L (59 - ) Glucose 212 H mg/dL (65-110) POC Capillary Glucose 230 H mg/dl (65-105) Calcium 9.0 mg/dL (8.4-10.2) Phosphorus 5.0 H mg/dL (2.5-4.5) Magnesium 2.8 H mg/dL (1.6-2.3) Total Bilirubin 0.6 mg/dL (0.2-1.3) AST 119 H U/L (14-36) ALT 117 H U/L (6-35) Alkaline Phosphatase 138 H U/L (38-126) Total Protein 8.0 g/dL (6.3-8.2) Albumin 4.0 g/dL (3.5-5.1) Random Vancomycin 18.8 ug/mL (10-20) 09/02/24 09/02/24 06:08 07:05 WBC RBC Hgb Hct MCV MCH MCHC RDW Plt Count MPV % Immature Plt Fraction Puncture Site ABG pH ABG pCO2 ABG pO2 ABG PO2/FiO2 Ratio ABG HCO3 ABG O2 Saturation ABG O2 Content ABG Base Excess A-a Gradient Oxyhemoglobin Carboxyhemoglobin Methemoglobin Reduced Hemoglobin Total Hemoglobin O2 Delivery Device O2 Liters/Min Minute Volume Vent Rate Vent Mode FiO2 Tidal Volume PEEP Peak Inspir Pressure Pressure Support Sodium Potassium Chloride Carbon Dioxide Anion Gap BUN Creatinine Estim Creat Clear Calc Estimated GFR Glucose POC Capillary Glucose 247 H mg/dl 266 H mg/dl (65-105) (65-105) Calcium Phosphorus Magnesium Total Bilirubin AST ALT Alkaline Phosphatase Total Protein Albumin Random Vancomycin Patient hx anesthesia problems: none Family hx anesthesia problems: none Results Review: All pre-operative results and documents have been reviewed as part of the pre- operative evaluation. [facility] Past Medical History Medical History Recurrent urinary tract infection Fuchs' corneal dystrophy Cancer of kidney suspected kidney cancer being monitored for the last 4 years with recent increase in growth and plans for possible radiation therapy Coronary artery disease patient of Dr. Addy Norwood at [facility] Type 2 diabetes mellitus Congestive heart failure Hypertension Surgical History Surgical History History of appendectomy History of cholecystectomy History of ventral hernia repair with mesh History of arthroplasty of right knee History of suprapubic catheter History of coronary artery stent placement (2018) Social History Social History Social History: Healthcare power of assistant city attorney: Bacilio Salas, son. Code status: Full code. Smoking status: Never smoker Alcohol intake: never Substance use: never Spiritual care concerns: No Anes - Eval Final PreProcedure Day of Procedure 09/02/24 07:27 Patient weight: obese Heart: regular rate and rhythm Lungs: other (mechanical vent) ASA classification: IV Emergent: no Anesthetic plan: proceed Anesthesia type and monitoring: general ETT and standard monitoring Results Review: All pre-operative results and documents have been reviewed as part of the pre- operative evaluation. Informed Consent: The patient's anesthetic plan and its attendant risks and benefits were discussed with the patient/family/POA. Questions were solicited and answers provided to the satisfaction of the patient/family/POA.
--- NOTE | 2024-09-02 07:29 | PC.NURSE ---
To OR per [bed ], IV [insulin infusing. Amiodarone gtt stopped per Dr. Alvarado order ]. Report given to [ CLINIC DIRECTOR, and OR nurse].
[2024-09-02] MEDS: LIDO 1%/EPINEPHRINE 1:100,000 20 ML VIAL 15 ML INFILTRATE (07:55)
[2024-09-02] MEDS: HEPARIN SODIUM 5,000 UNITS/ML VIAL 5000 UNITS IRRIGATION (07:56)
[2024-09-02] MEDS: HEPARIN SODIUM, PORCINE 10,000 UNITS/10 ML VIAL 4 UNITS IRRIGATION (07:57)
[2024-09-02] MEDS: MEROPENEM 500 MG/NS 100 ML 500 MG/100 ML BAG 200 MG IVPB (07:58)
--- NOTE | 2024-09-02 08:27 | P.OP_ITS ---
Procedure Note - Detailed Date of Procedure 09/02/24 Pre-op Diagnosis Acute/Chronic Renal failure Post-op Diagnosis Same Procedure Performed Left internal jugular tunneled dialysis catheter placement using ultrasound and fluoroscopic guidance Surgeon Franc Carney, DO Anesthesia MAC and Local (1% lidocaine with epinephrine) Indications Acute on chronic renal failure Findings SonoSite ultrasound was used to identify the left internal jugular vein. This was visualized as a compressible vessel just lateral to the pulsatile carotid artery. The internal jugular vein appeared slightly small but I was still able to access this under ultrasound guidance using an 18 gauge introducer needle. Initially the guidewire was meeting some resistance, but with repositioning of the introducer needle under ultrasound guidance I was able to advance the guidewire smoothly. Fluoroscopy was then used to guide advancement of the guidewire followed by the dilators and sheath. The final fluoroscopic images demonstrated the catheter tip in the distal SVC and no kinks along its path. Description of Procedure Procedure as well as risks, benefits, and alternatives were discussed with patient. Written consent was obtained and placed in chart prior to procedure. Patient was brought back to surgical suite. Placed supine on operating table. Time-out was done confirm patient procedure. IV sedation was then administered by the Anesthesia Department. Her left chest and neck area was prepped and draped in sterile fashion using chlorhexidine prep. Patient was placed in Trendelenburg position. SonoSite ultrasound was used to identify the left internal jugular vein. It was visualized as a compressible vessel just lateral to the carotid artery. 1% lidocaine with epinephrine was infiltrated directly over the vessel under ultrasound guidance. An 18 gauge introducer needle was then advanced under ultrasound guidance directly into the left internal jugular vein. Dark nonpulsatile blood was aspirated. A 0.035 in guidewire was then advanced through the needle under fluoroscopic guidance. The guidewire was visualized advancing all the way down into the superior vena cava. 1% lidocaine with epinephrine was then infiltrated on the left anterior chest and along the tract up to the guidewire insertion site. A 5 mm incision was made with a 15 blade scalpel. A small gracie incision was then also made at the insertion site at the neck. The tunneler was then advanced from the chest incision up to the neck incision and the catheter tubing was brought up through this tract. The dilator and sheath were then advanced over the guidewire under fluoroscopic visualization. The dilator and guidewire were then removed leaving the sheath in place. The catheter tubing was then advanced through the sheath under fluoroscopic guidance. The sheath was unsnapped and carefully peeled away. The catheter tubing was released underneath the neck incision. Fluoroscopy was used to confirm proper placement of the catheter tubing and no kinks along its path. The catheter was then hep-locked with Hep-Lock solution. The skin of the incisions was then approximated using 4-0 Monocryl subcuticular suture. Exofin glue was then applied at the neck incision and 2x2 gauze and Tegaderm drassing applied at the chest. The patient was then awakened from anesthesia and transferred to recovery. Implants 28 cm DuraFlow2 dialysis catheter Estimated Blood Loss 50 Urine Output 15 Complications No immediate complications Condition Stable Disposition ICU [facility] Surgery - Charge Forward: Surgery Billing
--- NOTE | 2024-09-02 08:32 | P.PNINT_ITS ---
Progress Note: A&P Assessment and Plan (1) DVT (deep venous thrombosis): Qualifiers: Affected thrombotic vein of extremity: tibial Chronicity: acute DVT location: lower extremity Laterality: bilateral Qualified Code(s): I82.443 - Acute embolism and thrombosis of tibial vein, bilateral Code(s): I82.409 - Acute embolism and thrombosis of unspecified deep veins of unspecified lower extremity Status: Resolved Assessment and Plan: 08/20: Bilateral venous Dopplers obtained due to swelling in the legs. Ultrasound showed Bilateral [id number] deep venous thrombosis in the left and right posterior tibial veins. Patient was initially started on heparin infusion which was discontinued on 08/28 due to drop in hemoglobin 08/28/2024: Patient dropped hemoglobin to 6.9, on heparin infusion for DVTs bilaterally -have asked the bedside RN to hold heparin infusion -appreciate surgery evaluation and recommendations, will hold off IVC filter placement, repeat venous Dopplers on 08/30/2024 negative for bilateral lower extremity DVT. -continue prophylactic heparin SQ 08/30: Bilateral lower extremity venous Dopplers : Negative bilateral lower extremity venous US. No deep vein thrombosis. (2) Anemia: Qualifiers: Anemia type: due to chronic kidney disease Chronic kidney disease stage: stage 3 (moderate) Chronic kidney disease stage 3 subtype: unspecified whether 3a or 3b Qualified Code(s): N18.30 - Chronic kidney disease, stage 3 unspecified; D63.1 - Anemia in chronic kidney disease Code(s): D64.9 - Anemia, unspecified Status: Acute Assessment and Plan: 08/28: Patient dropped her hemoglobin to 6.9 this morning -patient is on heparin infusion for her bilateral lower extremity DVTs -have asked the bedside RN to hold heparin infusion -08/28: Transfused 1 unit of packed RBCs -hemoglobin stable this morning -continue subQ heparin (prophylactic dose) (3) Acute respiratory failure with hypoxia: Code(s): J96.01 - Acute respiratory failure with hypoxia Status: Acute Assessment and Plan: Acute Respiratory failure secondary to combination of pneumonia and congestive heart failure 08/18: Intubated Repeat CT chest 08/18 MPRESSION: 1. Significant interval progression in an lobar pneumonia along with increasing small bilateral pleural effusions. Patient has elevated procalcitonin and BNP she is positive on intake output balance but her echocardiogram shows normal biventricular size and systolic function Continue Bronchodilators 08/16/2024: Blood cultures negative x2. 08/21/2024: Sputum culture growing MRSA Urine Legionella antigen, mycoplasma pneumonia antibody and urine pneumococcal antigen negative Continue Dialysis to remove fluid, discussed with Nephrology Status post vancomycin cefepime azithromycin (antibiotics ended on 08/27/2024) Patient was off of sedation for 2 days and became tachypneic with asynchronous with ventilator. Patient started on propofol infusion will discontinue, will give sedation vacation after dialysis Weaning trial will depend on improvement in patient's encephalopathy -Chest x-ray and ABGs reviewed -Currently on PEEP of 8 and an FiO2 of 50% FiO2 %, wean FiO2 as tolerated -patient has significant amount of secretions which are thick, will add Mucomyst and Pulmozyme nebulizer -chest x-ray continues shows bilateral infiltrates for despite fluid removal, patient continues to have thick secretions, 08/29: Restarted vancomycin and meropenem 08/30: Consult has been placed for ENT for tracheostomy and GI for PEG tube placement 08/31: PEG tube to be placed today Discussed with Dr. Orellana, tracheostomy scheduled for 09/03/202409/01: Patient tried on ASV mode of ventilation and spontaneous breathing, did not tolerate as she was tachypneic with respirations in the upper 30s (4) Congestive heart failure: Qualifiers: Heart failure chronicity: acute on chronic Heart failure type: unspecified Qualified Code(s): I50.9 - Heart failure, unspecified Code(s): I50.9 - Heart failure, unspecified Status: Acute Assessment and Plan: See above (5) Non-ST elevation myocardial infarction (NSTEMI): Code(s): I21.4 - Non-ST elevation (NSTEMI) myocardial infarction Status: Acute Assessment and Plan: History of coronary disease status post PCI in the past now presented with elevated troponin. -Cardiology following -Other heart medications on hold due to low blood pressure -Statin on hold due to elevated LFTs. -No plan for cardiac catheterization at this time. -restart aspirin 81 mg (6) Coronary artery disease: Code(s): I25.10 - Atherosclerotic heart disease of [place] coronary artery without angina pectoris Status: Acute Assessment and Plan: See above (7) Type 2 diabetes mellitus: Code(s): E11.9 - Type 2 diabetes mellitus without complications Status: Chronic Assessment and Plan: Sliding scale insulin 08/29: Blood sugars in the 400s despite being Lantus 50 units q.12 hours. Patient was started on insulin infusion on Lantus was discontinued -continue insulin infusion, will transition to long-acting insulin and sliding scale insulin when she gets all her procedures as she has to be NPO for the procedure Off steroids (8) Renal failure: Qualifiers: Acute renal failure type: unspecified Chronic kidney disease stage: stage 3 (moderate) Chronic kidney disease stage 3 subtype: unspecified whether 3a or 3b Renal failure chronicity: acute on chronic Qualified Code(s): N17.9 - Acute kidney failure, unspecified; N18.30 - Chronic kidney disease, stage 3 unspecified Code(s): N19 - Unspecified kidney failure Status: Acute Assessment and Plan: Patient presented with creatinine of 1.5. Baseline creatinine unknown She has suprapubic catheter. As per son patient has had a renal tumor which was being monitored and plan was to start radiation therapy by her urology CT scan showed Subtle 2.5 cm mass at the upper pole of the right kidney consistent with provided history of renal tumor. Calcification is at the bilateral kidneys which appear linear and likely atherosclerotic although could not exclude nonobstructing nephrolithiasis. No hydronephrosis in either kidney. Diuretics were held and patient was given albumin bolus Creatinine continue to increase with poor urine output. After discussion with patient's family and lesson instructor decision was made to initiate dialysis. / dialysis catheter was placed and patient was dialyzed 1 L fluid was removed Monitor urine output electrolytes and creatinine Dialysis per Nephrology -09/02: Panel dialysis placed (9) Pneumonia: Qualifiers: Laterality: bilateral Lung location: lower lobe of lung Pneumonia type: due to methicillin-resistant Staphylococcus aureus (MRSA) Qualified Code(s): J15.212 - Pneumonia due to Methicillin resistant Staphylococcus aureus Code(s): J18.9 - Pneumonia, unspecified organism Status: Acute Assessment and Plan: See above (10) Kidney mass: Code(s): N28.89 - Other specified disorders of kidney and ureter Status: Acute Assessment and Plan: Patient's son reports history of kidney mass which is being monitored as it was too big to be removed without total nephrectomy. He states that patient was supposed to get radiation therapy in a month or so before she fractured her ankle. CT scan shows 2.5 cm renal mass on the right side and no hydronephrosis. No intervention at this time (11) Septic shock: Code(s): A41.9 - Sepsis, unspecified organism; R65.21 - Severe sepsis with septic shock Status: Acute Assessment and Plan: Off all pressors Patient requires Levophed mainly when she is receiving dialysis -continue antibiotics as above (12) Ileus: Code(s): K56.7 - Ileus, unspecified Status: Acute Assessment and Plan: RESOLVED Patient has significant output from her OG tube. She has not been tolerating tube feeds. She is on Reglan Bowel sounds are decreased. KUB does not show anything significant abnormal 08/23 Dobbhoff placed tube feeds resume 08/24 will advance tube feeds to 40 mL/hour -patient tolerating tube feeds with minimal residual, positive bowel movement 08/31: PEG tube inserted by GI (13) Atrial fibrillation with RVR: Code(s): I48.91 - Unspecified atrial fibrillation Status: Acute Assessment and Plan: Patient went into AFib with RVR after hemodialysis.. She was started on amiodarone infusion. She has converted to sinus bradycardia, amiodarone was discontinued on 08/26/2024 Currently off heparin infusion due to anemia 08/30: Patient went to AFib RVR during dialysis, with rates in the 140s to 150s, started patient on amiodarone bolus and infusion, will let the infusion complete -continue prophylactic heparin SQ -patient was into AFib RVR with dialysis, also requires norepinephrine during dialysis. Patient has been started couple of times on amiodarone infusion and converts to sinus rhythm after dialysis and amiodarone drip has to be discontinued. -will place patient on low-dose amiodarone per feeding tube (14) Encephalopathy: Code(s): G93.40 - Encephalopathy, unspecified Status: Acute Assessment and Plan: Patient was on Versed and fentanyl infusion for many days. She also has renal failure which may lead to accumulation -started on propofol infusion -off propofol patient becomes tachypneic and dyssynchronous with the ventilator leading her to desaturate -08/26/2024: CT scan of the brain No intracranial hemorrhage, mass, or acute infarct.Atrophy and chronic white matter changes. -ammonia levels within normal limits -08/29: propofol has been switched to Precedex, to allow patient to wake up -continue to wean Precedex. -09/01: CT brain with no acute intracranial process, age-related changes, unchanged bilateral otomastoiditis effusion Plan DVT prophylaxis -heparin subQ Stress ulcer prophylaxis - Protonix to q.12 hours Nutrition - tube feeds currently on hold for tunnel dialysis procedure, will restart once patient gets back from the OR Code Status - Full Code Total Critical Care Time - 32 minutes 09/01: Discussed with patient's is Luke flynn and Geoffrey, updated them with patient's condition and plan of care. They are aware that she got a PEG tube placed on 08/31, scheduled for tunneled dialysis catheter on 09/02 and tracheostomy on 09/03. Care coordination has met with them regarding LTAC facilities, I answered all the questions 08/28: Had a long discussion with both Luke flynn and Geoffrey. I updated them with patient's condition plan of care. They understand that the patient has multiple medical problems but requested that she gets a tracheostomy and PEG tube placement as they want to give her a complete chance to recover Due to a high probability of clinically significant, life threatening deterioration, the patient required my highest level of preparedness to interve ne emergently and I personally spent this critical care time directly and personally managing the patient. This critical care time included obtaining a history; examining the patient; pulse oximetry; ordering and review of studies; arranging urgent treatment with development of a management plan; evaluation of patient's response to treatment; frequent reassessment; and discussions with other providers. It was exclusive of separately billable procedures and treating other patients and teaching time. Please see Assessment and Plan section and the rest of the note for further information on patient assessment and treatment. This dictation may have been done utilizing a voice recognition system. Attempts have been made to correct errors. However, there may be uncorrected grammatical, spelling, and recognitions errors present. Subjective Date/time seen: 09/02/24 08:32 Interval history: 08/18: Intubated 08/19 temporary dialysis catheter placed patient was dialyzed 08/21 vent into AFib with RVR. Converted to sinus Steve with amiodarone 08/23 Dobbhoff tube inserted 08/28: Transfuse 1 unit of PRBC 08/31: PEG tube placed 09/02: Tunneled dialysis catheter 09/02/2024: Patient seen examined the ICU, remains intubated on CMV mode of ventilation, peep of 8, 30% FiO2. Patient is sedated with Precedex infusion, patient opens her eyes but does not follow simple commands. She does withdraw to pain stimuli. Remains on amiodarone infusion which was started when she fli pped into atrial fibrillation RVR during dialysis. She was also started on norepinephrine during dialysis but that has been discontinued through the night. Anuric. Patient has been febrile with a T-max of 100.7?, hemodynamically stable. Secretions have improved, hemoglobin is stable. Tunnel dialysis catheter was placed this morning Review of Systems Review of Systems: ROS unobtainable: Yes unobtainable due to endotracheal tube, unobtainable due to medical condition and unobtainable due to mental status Exam Narrative: General: Pt is intubated and on mechanical ventilation HEENT: Pupils equal and reactive, sclera is clear, ETT in place. skin puncture wound at the site of ETAD Lungs/Chest: Trachea central Coarse BS B/L, bilateral rales, no wheezing, adequate air entry Cardiac: RRR. Normal S1 S2. No murmurs Abdomen: Soft, nontender, nondistended, hypoactive bowel sounds Extremities: Bilateral pitting edema, palpable pedal pulse : Butt in place Neurologic: Currently intubated, on Precedex infusion, open her eyes, does not follows simple commands. She does withdraw to pain stimulus. has a cough and a gag reflex Objective Data Vital Signs Vital Signs: Vital Signs - 24 hr 09/01/24 10:09/01/24 10:09/01/24 10:00 Temperature Pulse Rate 94 94 100 Respiratory Rate 32 H Blood Pressure 121/81 121/81 Pulse Oximetry 97 Oxygen Delivery Fraction of Inspired Oxygen 09/01/24 10:09/01/24 10:10 09/01/24 11:35 Temperature Pulse Rate 85 98 96 Respiratory Rate 29 H Blood Pressure 91/55 L Pulse Oximetry 98 99 97 Oxygen Delivery Mechanical Ventilation Mechanical Ventilation Fraction of Inspired Oxygen 30 30 09/01/24 12:00 09/01/24 12:00 09/01/24 12:00 Temperature Pulse Rate 98 Respiratory Rate Blood Pressure Pulse Oximetry Oxygen Delivery Mechanical Ventilation Fraction of Inspired Oxygen 30 30 09/01/24 12:00 09/01/24 12:09/01/24 13:11 Temperature 99.0 F 99.1 F Pulse Rate 98 98 95 Respiratory Rate 34 H 29 H Blood Pressure 97/61 L 97/61 L 97/58 L Pulse Oximetry 97 98 Oxygen Delivery Fraction of Inspired Oxygen 09/01/24 13:11 09/01/24 13:19 09/01/24 13:30 Temperature Pulse Rate 93 90 Respiratory Rate Blood Pressure 94/58 L 105/66 Pulse Oximetry Oxygen Delivery Fraction of Inspired Oxygen 30 09/01/24 13:45 09/01/24 14:00 09/01/24 14:00 Temperature Pulse Rate 97 98 99 Respiratory Rate 32 H Blood Pressure 110/64 93/56 L Pulse Oximetry 95 Oxygen Delivery Fraction of Inspired Oxygen 09/01/24 14:00 09/01/24 14:13 09/01/24 14:15 Temperature Pulse Rate 95 100 97 Respiratory Rate 33 H Blood Pressure 93/56 L 85/52 L Pulse Oximetry Oxygen Delivery Fraction of Inspired Oxygen 09/01/24 14:20 09/01/24 14:23 09/01/24 14:25 Temperature Pulse Rate 97 97 98 Respiratory Rate 32 H Blood Pressure 85/52 L Pulse Oximetry 92 Oxygen Delivery Mechanical Ventilation Fraction of Inspired Oxygen 30 09/01/24 14:30 09/01/24 14:45 09/01/24 15:00 Temperature Pulse Rate 95 95 94 Respiratory Rate Blood Pressure 102/61 105/64 109/66 Pulse Oximetry Oxygen Delivery Fraction of Inspired Oxygen 09/01/24 15:00 09/01/24 15:15 09/01/24 15:30 Temperature Pulse Rate 94 93 133 H Respiratory Rate Blood Pressure 109/66 98/62 L 109/81 Pulse Oximetry Oxygen Delivery Fraction of Inspired Oxygen 09/01/24 15:35 09/01/24 15:36 09/01/24 15:45 Temperature Pulse Rate 123 H 144 H 122 H Respiratory Rate Blood Pressure 104/79 104/79 103/76 Pulse Oximetry Oxygen Delivery Fraction of Inspired Oxygen 09/01/24 15:46 09/01/24 16:00 09/01/24 16:00 Temperature 99.0 F Pulse Rate 133 H 128 H 124 H Respiratory Rate 29 H Blood Pressure 103/73 97/59 L 97/59 L Pulse Oximetry 97 Oxygen Delivery Fraction of Inspired Oxygen 09/01/24 16:00 09/01/24 16:00 09/01/24 16:00 Temperature Pulse Rate 124 H 126 H Respiratory Rate 29 H Blood Pressure 97/59 L Pulse Oximetry 97 Oxygen Delivery Mechanical Ventilation Fraction of Inspired Oxygen 30 30 09/01/24 16:00 09/01/24 16:15 09/01/24 16:15 Temperature Pulse Rate 130 H 128 H 128 H Respiratory Rate Blood Pressure 101/68 101/68 Pulse Oximetry Oxygen Delivery Fraction of Inspired Oxygen 09/01/24 16:30 09/01/24 16:30 09/01/24 16:45 Temperature Pulse Rate 120 H 120 H 117 H Respiratory Rate Blood Pressure 106/78 106/78 100/69 Pulse Oximetry Oxygen Delivery Fraction of Inspired Oxygen 09/01/24 16:45 09/01/24 17:00 09/01/24 17:00 Temperature Pulse Rate 117 H 119 H 120 H Respiratory Rate Blood Pressure 100/69 97/73 L 97/73 L Pulse Oximetry Oxygen Delivery Fraction of Inspired Oxygen 09/01/24 17:07 09/01/24 17:15 09/01/24 17:15 Temperature Pulse Rate 117 H 132 H 121 H Respiratory Rate Blood Pressure 99/61 L 99/61 L Pulse Oximetry 98 Oxygen Delivery Mechanical Ventilation Fraction of Inspired Oxygen 30 09/01/24 17:30 09/01/24 17:34 09/01/24 17:45 Temperature 99.5 F Pulse Rate 138 H 121 H 127 H Respiratory Rate 29 H Blood Pressure 105/64 92/69 L 106/67 Pulse Oximetry 98 Oxygen Delivery Fraction of Inspired Oxygen 09/01/24 18:00 09/01/24 18:00 09/01/24 18:06 Temperature Pulse Rate 129 H 129 H 122 H Respiratory Rate 30 H Blood Pressure 98/72 L 98/72 L Pulse Oximetry 99 Oxygen Delivery Fraction of Inspired Oxygen 09/01/24 18:16 09/01/24 18:30 09/01/24 18:47 Temperature Pulse Rate 116 H 137 H 131 H Respiratory Rate Blood Pressure 112/79 121/83 111/81 Pulse Oximetry Oxygen Delivery Fraction of Inspired Oxygen 09/01/24 18:59 09/01/24 20:00 09/01/24 20:00 Temperature 100.4 F H Pulse Rate 100 94 94 Respiratory Rate 31 H Blood Pressure 111/68 106/64 106/64 Pulse Oximetry 97 Oxygen Delivery Fraction of Inspired Oxygen 09/01/24 20:00 09/01/24 20:00 09/01/24 20:00 Temperature Pulse Rate 94 92 Respiratory Rate 31 H Blood Pressure 106/72 Pulse Oximetry 97 Oxygen Delivery Mechanical Ventilation Fraction of Inspired Oxygen 30 30 09/01/24 20:00 09/01/24 20:15 09/01/24 20:42 Temperature Pulse Rate 93 94 94 Respiratory Rate 32 H 30 H Blood Pressure 111/61 Pulse Oximetry 96 Oxygen Delivery Fraction of Inspired Oxygen 09/01/24 20:52 09/01/24 20:53 09/01/24 21:00 Temperature Pulse Rate 92 95 94 Respiratory Rate 28 H Blood Pressure 107/65 Pulse Oximetry 96 Oxygen Delivery Mechanical Ventilation Fraction of Inspired Oxygen 30 09/01/24 21:02 09/01/24 21:15 09/01/24 21:17 Temperature Pulse Rate 94 93 93 Respiratory Rate 31 H 30 H Blood Pressure 107/65 105/63 105/63 Pulse Oximetry 96 95 Oxygen Delivery Fraction of Inspired Oxygen 09/01/24 22:00 09/01/24 22:00 09/01/24 22:00 Temperature 100.7 F H Pulse Rate 87 92 92 Respiratory Rate 30 H Blood Pressure 105/61 106/76 Pulse Oximetry 99 Oxygen Delivery Fraction of Inspired Oxygen 09/01/24 22:15 09/01/24 22:15 09/01/24 22:30 Temperature Pulse Rate 89 88 79 Respiratory Rate 30 H 30 H Blood Pressure 108/66 108/66 101/61 Pulse Oximetry 98 98 Oxygen Delivery Fraction of Inspired Oxygen 09/01/24 22:39 09/02/24 00:00 09/02/24 00:00 Temperature Pulse Rate 87 86 Respiratory Rate 30 H Blood Pressure Pulse Oximetry 100 97 Oxygen Delivery Mechanical Ventilation Mechanical Ventilation Fraction of Inspired Oxygen 30 30 30 09/02/24 00:00 09/02/24 00:00 09/02/24 00:00 Temperature 100.4 F H Pulse Rate 85 80 80 Respiratory Rate 30 H Blood Pressure 102/57 L 94/57 L 94/57 L Pulse Oximetry 98 Oxygen Delivery Fraction of Inspired Oxygen 09/02/24 00:00 09/02/24 02:00 09/02/24 02:00 Temperature Pulse Rate 87 89 89 Respiratory Rate Blood Pressure 103/65 103/65 Pulse Oximetry Oxygen Delivery Fraction of Inspired Oxygen 09/02/24 02:00 09/02/24 02:00 09/02/24 02:02 Temperature Pulse Rate 88 85 87 Respiratory Rate 30 H 30 H Blood Pressure 103/65 Pulse Oximetry 97 Oxygen Delivery Fraction of Inspired Oxygen 09/02/24 02:04 09/02/24 02:11 09/02/24 04:00 Temperature 99.8 F H Pulse Rate 86 86 81 Respiratory Rate 30 H 30 H Blood Pressure 100/60 Pulse Oximetry 97 97 Oxygen Delivery Mechanical Ventilation Fraction of Inspired Oxygen 30 09/02/24 04:00 09/02/24 04:00 09/02/24 04:00 Temperature Pulse Rate 81 87 Respiratory Rate 30 H Blood Pressure 100/60 Pulse Oximetry 97 Oxygen Delivery Mechanical Ventilation Fraction of Inspired Oxygen 30 30 09/02/24 04:00 09/02/24 04:00 09/02/24 04:55 Temperature Pulse Rate 86 80 86 Respiratory Rate Blood Pressure 100/60 Pulse Oximetry 97 Oxygen Delivery Mechanical Ventilation Fraction of Inspired Oxygen 30 09/02/24 06:00 09/02/24 06:00 09/02/24 06:00 Temperature Pulse Rate 83 83 83 Respiratory Rate 30 H Blood Pressure 103/63 103/63 Pulse Oximetry 96 Oxygen Delivery Fraction of Inspired Oxygen 09/02/24 06:00 09/02/24 07:30 09/02/24 08:25 Temperature Pulse Rate 83 80 80 Respiratory Rate Blood Pressure 103/63 103/56 L 103/56 L Pulse Oximetry Oxygen Delivery Fraction of Inspired Oxygen Intake/Output Intake/Output: Intake & Output 08/30/24 08/31/24 09/01/24 09/02/24 23:59 23:59 23:59 23:59 Intake Total 2261.6 1288.4 1095.8 872.6 Output Total 2315 3545 15 Balance -53.4 1288.4 -2449.2 857.6 Meds/Results Medications: Active Medications Generic Name Dose Route Start Last Admin Trade Name Freq PRN Reason Stop Dose Admin Acetaminophen 650 mg 08/18/24 21:48 08/28/24 01:10 Acetaminophen Elixir 325 Mg/10.15 Ml Udc PO 650 mg Q4H PRN Administration Mild Pain (1-3) or Fever Acetylcysteine 200 mg 08/28/24 08:00 09/02/24 02:01 Acetylcysteine 20% Inhal Soln 800 Mg/4 Ml Vial INHALATION 200 mg Q6HRT TEMI Administration Aspirin 81 mg 09/02/24 08:00 Aspirin 81 Mg Chewable Tablet PO DAILY@0800 TEMI Dextrose 12.5 gm 08/29/24 15:45 Dextrose 50% 25 Gm/50 Ml Syringe IV PUSH PRN PRN Hypoglycemia Protocol Glucagon 1 mg 08/29/24 15:45 Glucagon For Inj 1 Mg Vial IM PRN PRN Hypoglycemia Protocol Glucose 15 gm 08/29/24 15:45 Glucose Oral Gel 15 Gm Of Glucse In 37.5 Gm Tube PO PRN PRN Hypoglycemia Protocol Heparin Sodium (Porcine) 5,500 units 08/18/24 15:05 08/18/24 23:23 Heparin Sodium 5,000 Units/Ml Vial IV PUSH 5,500 units PRN PRN Administration aPTT less than 55 seconds Heparin Sodium (Porcine) 3,000 units 08/18/24 15:05 08/23/24 10:58 Heparin Sodium 5,000 Units/Ml Vial IV PUSH 3,000 units PRN PRN Administration aPTT 55 - 70 seconds Heparin Sodium (Porcine) 5,000 units 08/29/24 07:45 09/01/24 20:07 Heparin Sodium 5,000 Units/Ml Vial SUB-Q 5,000 units Q8HR TEMI Administration Heparin Sodium/Dextrose 25,000 units in 250 mls @ 23 mls/hr 08/18/24 15:05 08/28/24 22:25 Heparin Sodium/D5w 100 Units/Ml IV CONT Infused .[id number] TEMI Titration Protocol 2,300 UNITS/HR Albumin Human 50 mls @ 999 mls/hr 08/21/24 06:28 Albutein IVPB 09/20/24 06:27 Q10M PRN HYPOTENSION Meropenem 500 mg in 100 mls @ 200 mls/hr 08/29/24 08:00 09/02/24 08:18 IVPB Infused Q24H TEMI Infusion Insulin Human Regular 100 100 mls @ 1 mls/hr 08/29/24 16:00 09/02/24 06:08 units/ Sodium Chloride IV CONT 1 units/hr .Q24H TEMI 1 mls/hr Titration Protocol 1 UNITS/HR Dextrose 1,000 mls @ 100 mls/hr 08/29/24 15:45 Dextrose 5% 1,000 Ml IVPB PRN PRN Hypoglycemia Protocol Norepinephrine Bitartrate 8 mg in 250 mls @ 0 mls/hr 08/30/24 11:10 09/02/24 06:00 Levophed 8 Mg/D5w 250 Ml IV CONT 0 mcg/min .Q0M TEMI 0 mls/hr Titration Protocol 0 MCG/MIN Insulin Aspart 4 - 8 units 08/20/24 21:05 08/29/24 12:41 Insulin Aspart (*Bkc) 100 Units/Ml SUB-Q 8 units Q4HR TEMI Administration Protocol Insulin Glargine 50 units 08/29/24 09:00 08/29/24 08:22 Insulin Glargine (*Bkc) 100 Units/Ml SUB-Q 50 units Q12H TEMI Administration Ipratropium [place] 0.5 mg 08/29/24 12:22 08/29/24 12:20 Ipratropium Br 0.02% Inh Soln 0.5 Mg/2.5 Ml Vial INHALATION 0.5 mg Q6HRT PRN Administration Wheezing Levalbuterol HCl 1.25 mg 08/29/24 14:00 09/02/24 02:01 Levalbuterol Neb 1.25 Mg/3 Ml INHALATION 1.25 mg Q6HRT TEMI Administration Levalbuterol HCl 1.25 mg 08/29/24 12:22 08/29/24 12:20 Levalbuterol Neb 1.25 Mg/3 Ml INHALATION 1.25 mg Q6HRT PRN Administration Wheezing Metoclopramide HCl 10 mg 08/23/24 08:00 09/02/24 02:15 Metoclopramide Hcl 10 Mg/10 Ml Soln Udc PO Not Given Q6H [facility] Multi-Ingred Cream/Lotion/Oil/Oint 1 applic 08/18/24 09:00 09/01/24 20:06 Mineral Oil/White Petrolatum Ointment EACH EYE 1 applic Q12HR [facility] Administration Pantoprazole Sodium 40 mg 08/28/24 21:00 09/01/24 20:06 Pantoprazole Sodium Iv 40 Mg Vial IV PUSH 40 mg Q12HR TEMI Administration Polyethylene Glycol 17 gm 08/15/24 22:20 08/28/24 08:19 Polyethylene Glycol 3350 17 Gm Powd.Pack PO 17 gm DAILY PRN Administration constipation Sodium Chloride 10 ml 08/19/24 22:00 09/02/24 05:06 Central Line Flush IV PUSH 10 ml Q8HR TEMI Administration Sodium Chloride 20 ml 08/19/24 18:43 Central Line Flush IV PUSH PRN PRN after blood draws Vancomycin HCl 1 each 08/30/24 06:14 Vancomycin For Hemodialysis IVPB PRN PRN Vancomycin Protocol Radiology Results: ITS Impressions Chest CTA 08/15/24 11:11 IMPRESSION: No pulmonary embolus. No thoracic aortic dissection. Right upper lobe infiltrate with patchy bilateral airspace disease, likely inflammatory/congestive rather than infectious. Small bilateral pleural effusions with adjacent atelectasis. Renal Ultrasound 08/19/24 14:10 IMPRESSION: No hydronephrosis or renal calculi. Findings suggesting medical renal disease. Findings within the upper pole of the right kidney consistent with patient's history, as detailed above. Chest/Abdomen/Pelvis CT 08/23/24 09:58 IMPRESSION: CHEST: 1. Bilateral pneumonia which is slightly decreased compared to previous study. Bilateral pleural effusion more on the right side. ABDOMEN/PELVIS: 1. No evidence of appendicitis, diverticulitis or intestinal obstruction. 2. Bilateral tiny kidney stones. 3. Hepatomegaly. 4. No evidence of ileus seen. ADDENDUM: 08/23/24 1042 Possibility of mass in the right kidney upper pole cannot be excluded. Abdomen X-Ray 08/23/24 16:53 IMPRESSION: 1. Dobbhoff type nasoenteric feeding tube with distal tip projecting over the gastric fundus. Venous Doppler Study 08/30/24 15:18 IMPRESSION: Negative bilateral lower extremity venous US. No deep vein thrombosis. Head CT 09/01/24 10:03 IMPRESSION: 1. No acute intracranial process. 2. Age-related changes including moderate diffuse volume loss and moderate scattered white matter attenuation consistent with chronic small vessel ischemic disease. 3. Unchanged bilateral otomastoiditis effusions. Chest X-Ray 09/02/24 06:51 Impression: Moderate pulmonary edema pattern, left worse than right, with small pleural effusions. Support tubes, as above. Labs Labs: Laboratory Results - last 24 hr 09/01/24 09/01/24 09/01/24 08:40 09:32 10:31 WBC RBC Hgb Hct MCV MCH MCHC RDW Plt Count MPV % Immature Plt Fraction Puncture Site ABG pH ABG pCO2 ABG pO2 ABG PO2/FiO2 Ratio ABG HCO3 ABG O2 Saturation ABG O2 Content ABG Base Excess A-a Gradient Oxyhemoglobin Carboxyhemoglobin Methemoglobin Reduced Hemoglobin Total Hemoglobin O2 Delivery Device O2 Liters/Min Minute Volume Vent Rate Vent Mode FiO2 Tidal Volume PEEP Peak Inspir Pressure Pressure Support Sodium Potassium Chloride Carbon Dioxide Anion Gap BUN Creatinine Estim Creat Clear Calc Estimated GFR Glucose POC Capillary Glucose 210 H 247 H 244 H Calcium Phosphorus Magnesium Total Bilirubin AST ALT Alkaline Phosphatase Total Protein Albumin Random Vancomycin 09/01/24 09/01/24 09/01/24 11:29 12:28 13:30 WBC RBC Hgb Hct MCV MCH MCHC RDW Plt Count MPV % Immature Plt Fraction Puncture Site ABG pH ABG pCO2 ABG pO2 ABG PO2/FiO2 Ratio ABG HCO3 ABG O2 Saturation ABG O2 Content ABG Base Excess A-a Gradient Oxyhemoglobin Carboxyhemoglobin Methemoglobin Reduced Hemoglobin Total Hemoglobin O2 Delivery Device O2 Liters/Min Minute Volume Vent Rate Vent Mode FiO2 Tidal Volume PEEP Peak Inspir Pressure Pressure Support Sodium Potassium Chloride Carbon Dioxide Anion Gap BUN Creatinine Estim Creat Clear Calc Estimated GFR Glucose POC Capillary Glucose 240 H 269 H 238 H Calcium Phosphorus Magnesium Total Bilirubin AST ALT Alkaline Phosphatase Total Protein Albumin Random Vancomycin 09/01/24 09/01/24 09/01/24 14:28 15:46 17:04 WBC RBC Hgb Hct MCV MCH MCHC RDW Plt Count MPV % Immature Plt Fraction Puncture Site ABG pH ABG pCO2 ABG pO2 ABG PO2/FiO2 Ratio ABG HCO3 ABG O2 Saturation ABG O2 Content ABG Base Excess A-a Gradient Oxyhemoglobin Carboxyhemoglobin Methemoglobin Reduced Hemoglobin Total Hemoglobin O2 Delivery Device O2 Liters/Min Minute Volume Vent Rate Vent Mode FiO2 Tidal Volume PEEP Peak Inspir Pressure Pressure Support Sodium Potassium Chloride Carbon Dioxide Anion Gap BUN Creatinine Estim Creat Clear Calc Estimated GFR Glucose POC Capillary Glucose 213 H 196 H 170 H Calcium Phosphorus Magnesium Total Bilirubin AST ALT Alkaline Phosphatase Total Protein Albumin Random Vancomycin 09/01/24 09/01/24 09/01/24 18:06 18:58 20:04 WBC RBC Hgb Hct MCV MCH MCHC RDW Plt Count MPV % Immature Plt Fraction Puncture Site ABG pH ABG pCO2 ABG pO2 ABG PO2/FiO2 Ratio ABG HCO3 ABG O2 Saturation ABG O2 Content ABG Base Excess A-a Gradient Oxyhemoglobin Carboxyhemoglobin Methemoglobin Reduced Hemoglobin Total Hemoglobin O2 Delivery Device O2 Liters/Min Minute Volume Vent Rate Vent Mode FiO2 Tidal Volume PEEP Peak Inspir Pressure Pressure Support Sodium Potassium Chloride Carbon Dioxide Anion Gap BUN Creatinine Estim Creat Clear Calc Estimated GFR Glucose POC Capillary Glucose 212 H 252 H 288 H Calcium Phosphorus Magnesium Total Bilirubin AST ALT Alkaline Phosphatase Total Protein Albumin Random Vancomycin 09/01/24 09/01/24 09/01/24 20:59 22:15 23:11 WBC RBC Hgb Hct MCV MCH MCHC RDW Plt Count MPV % Immature Plt Fraction Puncture Site ABG pH ABG pCO2 ABG pO2 ABG PO2/FiO2 Ratio ABG HCO3 ABG O2 Saturation ABG O2 Content ABG Base Excess A-a Gradient Oxyhemoglobin Carboxyhemoglobin Methemoglobin Reduced Hemoglobin Total Hemoglobin O2 Delivery Device O2 Liters/Min Minute Volume Vent Rate Vent Mode FiO2 Tidal Volume PEEP Peak Inspir Pressure Pressure Support Sodium Potassium Chloride Carbon Dioxide Anion Gap BUN Creatinine Estim Creat Clear Calc Estimated GFR Glucose POC Capillary Glucose 297 H 277 H 265 H Calcium Phosphorus Magnesium Total Bilirubin AST ALT Alkaline Phosphatase Total Protein Albumin Random Vancomycin 09/02/24 09/02/24 09/02/24 00:17 01:24 02:19 WBC RBC Hgb Hct MCV MCH MCHC RDW Plt Count MPV % Immature Plt Fraction Puncture Site ABG pH ABG pCO2 ABG pO2 ABG PO2/FiO2 Ratio ABG HCO3 ABG O2 Saturation ABG O2 Content ABG Base Excess A-a Gradient Oxyhemoglobin Carboxyhemoglobin Methemoglobin Reduced Hemoglobin Total Hemoglobin O2 Delivery Device O2 Liters/Min Minute Volume Vent Rate Vent Mode FiO2 Tidal Volume PEEP Peak Inspir Pressure Pressure Support Sodium Potassium Chloride Carbon Dioxide Anion Gap BUN Creatinine Estim Creat Clear Calc Estimated GFR Glucose POC Capillary Glucose 226 H 216 H 201 H Calcium Phosphorus Magnesium Total Bilirubin AST ALT Alkaline Phosphatase Total Protein Albumin Random Vancomycin 09/02/24 09/02/24 09/02/24 03:16 04:17 04:40 WBC RBC Hgb Hct MCV MCH MCHC RDW Plt Count MPV % Immature Plt Fraction Puncture Site Right radial ABG pH 7.496 H ABG pCO2 32.8 L ABG pO2 95.6 ABG PO2/FiO2 Ratio 3.19 ABG HCO3 24.8 ABG O2 Saturation 97.8 ABG O2 Content 13.3 L ABG Base Excess 1.8 A-a Gradient 79.8 Oxyhemoglobin 97.2 Carboxyhemoglobin 0.1 Methemoglobin 0.3 Reduced Hemoglobin 2.4 Total Hemoglobin 9.6 L O2 Delivery Device Ventilator O2 Liters/Min Not Reportable Minute Volume Not Reportable Vent Rate 18 Vent Mode Cmv FiO2 30 Tidal Volume 320 PEEP 8 Peak Inspir Pressure Not Reportable Pressure Support Not Reportable Sodium Potassium Chloride Carbon Dioxide Anion Gap BUN Creatinine Estim Creat Clear Calc Estimated GFR Glucose POC Capillary Glucose 190 H 217 H Calcium Phosphorus Magnesium Total Bilirubin AST ALT Alkaline Phosphatase Total Protein Albumin Random Vancomycin 09/02/24 09/02/24 09/02/24 05:01 05:05 06:08 WBC 13.1 H RBC 3.42 L Hgb 8.7 L Hct 30.0 L MCV 87.7 MCH 25.4 L MCHC 29.0 L RDW 19.8 H Plt Count 151 MPV 11.1 H % Immature Plt Fraction 7.0 Puncture Site ABG pH ABG pCO2 ABG pO2 ABG PO2/FiO2 Ratio ABG HCO3 ABG O2 Saturation ABG O2 Content ABG Base Excess A-a Gradient Oxyhemoglobin Carboxyhemoglobin Methemoglobin Reduced Hemoglobin Total Hemoglobin O2 Delivery Device O2 Liters/Min Minute Volume Vent Rate Vent Mode FiO2 Tidal Volume PEEP Peak Inspir Pressure Pressure Support Sodium 138 Potassium 4.0 Chloride 95 L Carbon Dioxide 27 Anion Gap 16 H BUN 66 H D Creatinine 3.15 H Estim Creat Clear Calc 14 Estimated GFR 14 L Glucose 212 H POC Capillary Glucose 230 H 247 H Calcium 9.0 Phosphorus 5.0 H Magnesium 2.8 H Total Bilirubin 0.6 AST 119 H ALT 117 H Alkaline Phosphatase 138 H Total Protein 8.0 Albumin 4.0 Random Vancomycin 18.8 09/02/24 07:05 WBC RBC Hgb Hct MCV MCH MCHC RDW Plt Count MPV % Immature Plt Fraction Puncture Site ABG pH ABG pCO2 ABG pO2 ABG PO2/FiO2 Ratio ABG HCO3 ABG O2 Saturation ABG O2 Content ABG Base Excess A-a Gradient Oxyhemoglobin Carboxyhemoglobin Methemoglobin Reduced Hemoglobin Total Hemoglobin O2 Delivery Device O2 Liters/Min Minute Volume Vent Rate Vent Mode FiO2 Tidal Volume PEEP Peak Inspir Pressure Pressure Support Sodium Potassium Chloride Carbon Dioxide Anion Gap BUN Creatinine Estim Creat Clear Calc Estimated GFR Glucose POC Capillary Glucose 266 H Calcium Phosphorus Magnesium Total Bilirubin AST ALT Alkaline Phosphatase Total Protein Albumin Random Vancomycin
--- NOTE | 2024-09-02 08:48 | PC.NURSE ---
Returned from OR per [bed ]. Report received from NANCY Martinez @ [id number] ].
[2024-09-02] MEDS: MINERAL OIL/WHITE PETROLATUM OINTMENT 1 APPLIC EACH EYE ×2 (09:05→20:09)
[2024-09-02] MEDS: PANTOPRAZOLE SODIUM IV 40 MG VIAL IV PUSH ×2 (09:05→20:09)
[2024-09-02] MEDS: METOCLOPRAMIDE HCL 10 MG/10 ML SOLN UDC PO ×3 (09:05→20:09)
[2024-09-02] MEDS: ASPIRIN 81 MG CHEWABLE TABLET PO (09:05)
[2024-09-02] MEDS: AMIODARONE HCL 200 MG TABLET PO (09:25)
[2024-09-02] MEDS: INSULIN HUMAN REGULAR (*BKC) 100 UNITS in SODIUM CHLORIDE 0.9% IV 99 ML 6 UNITS IV CONT (09:58)
[2024-09-02 10:25] LABS: Glucose Point of Care 301 mg/dl (65-105)
[2024-09-02 10:25] LABS: Glucose Point of Care 301 mg/dl (65-105)
--- NOTE | 2024-09-02 10:47 | PCFNICU ---
ICU Rounding Note: Pt current nutrition is NPO. Nutrition recommendation: Restart Nepro @ 40 ml /h with Gianluca BID for wounds and Prosource TF BID. Last recorded weight is 85.5 kg. Bowel Motility: +2 BMs 09/02/24 Labs Reviewed: Hgb 8.7, Hct 30, BUN 66, Cre 3.15, Glu 212, Mag 2.8 Meds Noted: Precedex, Levophed, Reglan, novolog, protonix, Skin: Split lip, Deep tissue pressure to buttocks, unstageable to heel Additional Notes: Tunneled cath was placed today and Nepro to be restarted. Trach placement tomorrow. Planning for LTACH in progress Following daily in ICU rounds. Monitor intake, wt, labs, skin. Follow up in 5 days. .
[2024-09-02 11:06] LABS: Glucose Point of Care 234 mg/dl (65-105)
[2024-09-02 12:25] LABS: Glucose Point of Care 193 mg/dl (65-105)
--- NOTE | 2024-09-02 12:29 | P.PNNP_ITS ---
Subjective Date/time seen: 09/02/24 12:29 Interval history: Follow-up for acute kidney injury/acute renal failure on chronic kidney disease. Tolerated dialysis treatment yesterday without any issues or problems other than fluctuating blood flows with temporary dialysis catheter and flipped into Afib with RVR towards the end of treatment; did briefly require levophed support during dialysis treatment as well but was weaned off; s/p tunneled HD catheter placement earlier today and tolerated this procedure as well; remains hemodynamically stable at the time of my visit; no significant urine output noted. Objective Data Vital Signs Vital Signs: Vital Signs Temp Pulse Resp BP Pulse Ox O2 Del Method FiO2 09/02/24 12:00 99.9 F H 74 31 H 96/54 L 99 Mecahnical Ventilation 09/02/24 11:03 72 99/57 L 09/02/24 11:00 99.1 F 72 32 H 99/57 L 100 09/02/24 10:47 72 89/55 L 09/02/24 10:39 72 100 Mechanical Ventilation 09/02/24 10:30 99.8 F H 72 28 H 91/53 L 100 09/02/24 10:00 74 09/02/24 10:00 74 95/53 L 09/02/24 10:00 98.7 F 74 29 H 95/53 L 97 09/02/24 09:47 76 75/47 L 09/02/24 09:30 99.0 F 78 29 H 82/49 L 95 09/02/24 09:25 80 09/02/24 09:15 99.3 F 81 21 H 84/48 L 94 09/02/24 09:01 81 19 09/02/24 09:01 81 93 Mechanical Ventilation 09/02/24 09:00 99.5 F 90 28 H 84/52 L 94 09/02/24 08:59 84 91/61 L 09/02/24 08:50 74 09/02/24 08:50 30 09/02/24 08:50 74 15 100 Mechanical Ventilation 09/02/24 08:50 99.1 F 74 15 91/61 L 100 09/02/24 08:25 80 103/56 L 09/02/24 07:30 80 103/56 L 09/02/24 06:00 83 103/63 09/02/24 06:00 83 103/63 09/02/24 06:00 83 30 H 103/63 96 09/02/24 06:00 83 09/02/24 04:55 86 97 Mechanical Ventilation 30 09/02/24 04:00 80 09/02/24 04:00 86 100/60 09/02/24 04:00 87 100/60 09/02/24 04:00 81 30 H 97 Mechanical Ventilation 09/02/24 04:00 30 09/02/24 04:00 99.8 F H 81 30 H 100/60 97 09/02/24 02:11 86 30 H 09/02/24 02:04 86 97 Mechanical Ventilation 09/02/24 02:02 87 30 H 09/02/24 02:00 85 09/02/24 02:00 88 30 H 103/65 97 09/02/24 02:00 89 103/65 09/02/24 02:00 89 103/65 09/02/24 00:00 87 09/02/24 00:00 80 94/57 L 09/02/24 00:00 80 94/57 L 09/02/24 00:00 100.4 F H 85 30 H 102/57 L 98 09/02/24 00:00 30 09/02/24 00:00 86 30 H 97 Mechanical Ventilation 09/01/24 22:39 87 100 Mechanical Ventilation 09/01/24 22:30 79 30 H 101/61 98 09/01/24 22:15 88 30 H 108/66 98 09/01/24 22:15 89 108/66 09/01/24 22:00 92 106/76 09/01/24 22:00 92 09/01/24 22:00 100.7 F H 87 30 H 105/61 99 09/01/24 21:17 93 105/63 09/01/24 21:15 93 30 H 105/63 95 09/01/24 21:02 94 31 H 107/65 96 09/01/24 21:00 94 107/65 09/01/24 20:53 95 96 Mechanical Ventilation 30 09/01/24 20:52 92 28 H 09/01/24 20:42 94 30 H 09/01/24 20:15 94 32 H 111/61 96 09/01/24 20:00 93 09/01/24 20:00 92 106/72 09/01/24 20:00 94 31 H 97 Mechanical Ventilation 30 09/01/24 20:00 30 09/01/24 20:00 100.4 F H 94 31 H 106/64 97 09/01/24 20:00 94 106/64 09/01/24 18:59 100 111/68 09/01/24 18:47 131 H 111/81 09/01/24 18:30 137 H 121/83 09/01/24 18:16 116 H 112/79 09/01/24 18:06 122 H 98/72 L 09/01/24 18:00 129 H 30 H 98/72 L 99 09/01/24 18:00 129 H 09/01/24 17:45 99.5 F 127 H 29 H 106/67 98 09/01/24 17:34 121 H 92/69 L 09/01/24 17:30 138 H 105/64 09/01/24 17:15 121 H 99/61 L 09/01/24 17:15 132 H 99/61 L 09/01/24 17:07 117 H 98 Mechanical Ventilation 09/01/24 17:00 120 H 97/73 L 09/01/24 17:00 119 H 97/73 L 09/01/24 16:45 117 H 100/69 09/01/24 16:45 117 H 100/69 09/01/24 16:30 120 H 106/78 09/01/24 16:30 120 H 106/78 09/01/24 16:15 128 H 101/68 09/01/24 16:15 128 H 101/68 09/01/24 16:00 130 H 09/01/24 16:00 126 H 97/59 L 09/01/24 16:00 30 09/01/24 16:00 124 H 29 H 97 Mechanical Ventilation 09/01/24 16:00 99.0 F 124 H 29 H 97/59 L 97 09/01/24 16:00 128 H 97/59 L Intake/Output Intake/Output: Intake & Output 08/30/24 08/31/24 09/01/24 09/02/24 23:59 23:59 23:59 23:59 Intake Total 2261.6 1288.4 1095.8 1242.8 Output Total 2315 3545 15 Balance -53.4 1288.4 -2449.2 1227.8 Meds/Results Medications: Active Medications Generic Name Dose Route Start Last Admin Trade Name Freq PRN Reason Stop Dose Admin Acetaminophen 650 mg 08/18/24 21:48 08/28/24 01:10 Acetaminophen Elixir 325 Mg/10.15 Ml Udc PO 650 mg Q4H PRN Administration Mild Pain (1-3) or Fever Acetylcysteine 200 mg 08/28/24 08:00 09/02/24 13:30 Acetylcysteine 20% Inhal Soln 800 Mg/4 Ml Vial INHALATION 200 mg Q6HRT TEMI Administration Amiodarone HCl 200 mg 09/02/24 09:25 09/02/24 09:25 Amiodarone Hcl 200 Mg Tablet PO 200 mg DAILY@0800 TEMI Administration Aspirin 81 mg 09/02/24 08:00 09/02/24 09:05 Aspirin 81 Mg Chewable Tablet PO 81 mg DAILY@0800 TEMI Administration Dextrose 12.5 gm 08/29/24 15:45 Dextrose 50% 25 Gm/50 Ml Syringe IV PUSH PRN PRN Hypoglycemia Protocol Glucagon 1 mg 08/29/24 15:45 Glucagon For Inj 1 Mg Vial IM PRN PRN Hypoglycemia Protocol Glucose 15 gm 08/29/24 15:45 Glucose Oral Gel 15 Gm Of Glucse In 37.5 Gm Tube PO PRN PRN Hypoglycemia Protocol Heparin Sodium (Porcine) 5,000 units 08/29/24 07:45 09/02/24 13:05 Heparin Sodium 5,000 Units/Ml Vial SUB-Q 5,000 units Q8HR TEMI Administration Albumin Human 50 mls @ 999 mls/hr 08/21/24 06:28 Albutein IVPB 09/20/24 06:27 Q10M PRN HYPOTENSION Meropenem 500 mg in 100 mls @ 200 mls/hr 08/29/24 08:00 09/02/24 08:18 IVPB 09/04/24 08:29 Infused Q24H TEMI Infusion Insulin Human Regular 100 100 mls @ 2 mls/hr 08/29/24 16:00 09/02/24 15:00 units/ Sodium Chloride IV CONT 2 units/hr .Q24H TEMI 2 mls/hr Titration Protocol 2 UNITS/HR Dextrose 1,000 mls @ 100 mls/hr 08/29/24 15:45 Dextrose 5% 1,000 Ml IVPB PRN PRN Hypoglycemia Protocol Norepinephrine Bitartrate 8 mg in 250 mls @ 5.625 mls/hr 08/30/24 11:10 09/02/24 15:01 Levophed 8 Mg/D5w 250 Ml IV CONT 3 mcg/min .Q24H TEMI 5.63 mls/hr Titration Protocol 3 MCG/MIN Insulin Aspart 4 - 8 units 08/20/24 21:05 08/29/24 12:41 Insulin Aspart (*Bkc) 100 Units/Ml SUB-Q 8 units Q4HR TEMI Administration Protocol Insulin Glargine 50 units 08/29/24 09:00 08/29/24 08:22 Insulin Glargine (*Bkc) 100 Units/Ml SUB-Q 50 units Q12H TEMI Administration Ipratropium [place] 0.5 mg 08/29/24 12:22 08/29/24 12:20 Ipratropium Br 0.02% Inh Soln 0.5 Mg/2.5 Ml Vial INHALATION 0.5 mg Q6HRT PRN Administration Wheezing Levalbuterol HCl 1.25 mg 08/29/24 14:00 09/02/24 13:30 Levalbuterol Neb 1.25 Mg/3 Ml INHALATION 1.25 mg Q6HRT TEMI Administration Levalbuterol HCl 1.25 mg 08/29/24 12:22 08/29/24 12:20 Levalbuterol Neb 1.25 Mg/3 Ml INHALATION 1.25 mg Q6HRT PRN Administration Wheezing Metoclopramide HCl 10 mg 08/23/24 08:00 09/02/24 13:05 Metoclopramide Hcl 10 Mg/10 Ml Soln Udc PO 10 mg Q6H TEMI Administration Multi-Ingred Cream/Lotion/Oil/Oint 1 applic 08/18/24 09:00 09/02/24 09:05 Mineral Oil/White Petrolatum Ointment EACH EYE 1 applic Q12HR TEMI Administration Neomycin/Polymyxin/Bacitracin 1 applic 09/02/24 12:25 09/02/24 13:10 Neomycin/Polymyxin/Bacitracin Ointment 15 Gm Tube TOPICAL 1 applic Q12H TEMI Administration Pantoprazole Sodium 40 mg 08/28/24 21:00 09/02/24 09:05 Pantoprazole Sodium Iv 40 Mg Vial IV PUSH 40 mg Q12HR TEMI Administration Polyethylene Glycol 17 gm 08/15/24 22:20 08/28/24 08:19 Polyethylene Glycol 3350 17 Gm Powd.Pack PO 17 gm DAILY PRN Administration constipation Sodium Chloride 10 ml 08/19/24 22:00 09/02/24 13:05 Central Line Flush IV PUSH 10 ml Q8HR TEMI Administration Sodium Chloride 20 ml 08/19/24 18:43 Central Line Flush IV PUSH PRN PRN after blood draws Vancomycin HCl 1 each 08/30/24 06:14 Vancomycin For Hemodialysis IVPB 09/04/24 23:59 PRN PRN Vancomycin Protocol Radiology Results: ITS Impressions Chest CTA 08/15/24 11:11 IMPRESSION: No pulmonary embolus. No thoracic aortic dissection. Right upper lobe infiltrate with patchy bilateral airspace disease, likely inflammatory/congestive rather than infectious. Small bilateral pleural effusions with adjacent atelectasis. Renal Ultrasound 08/19/24 14:10 IMPRESSION: No hydronephrosis or renal calculi. Findings suggesting medical renal disease. Findings within the upper pole of the right kidney consistent with patient's history, as detailed above. Chest/Abdomen/Pelvis CT 08/23/24 09:58 IMPRESSION: CHEST: 1. Bilateral pneumonia which is slightly decreased compared to previous study. Bilateral pleural effusion more on the right side. ABDOMEN/PELVIS: 1. No evidence of appendicitis, diverticulitis or intestinal obstruction. 2. Bilateral tiny kidney stones. 3. Hepatomegaly. 4. No evidence of ileus seen. ADDENDUM: 08/23/24 1042 Possibility of mass in the right kidney upper pole cannot be excluded. Abdomen X-Ray 08/23/24 16:53 IMPRESSION: 1. Dobbhoff type nasoenteric feeding tube with distal tip projecting over the gastric fundus. Venous Doppler Study 08/30/24 15:18 IMPRESSION: Negative bilateral lower extremity venous US. No deep vein thrombosis. Head CT 09/01/24 10:03 IMPRESSION: 1. No acute intracranial process. 2. Age-related changes including moderate diffuse volume loss and moderate scattered white matter attenuation consistent with chronic small vessel ischemic disease. 3. Unchanged bilateral otomastoiditis effusions. Chest X-Ray 09/02/24 09:46 IMPRESSION: Bilateral pleural effusions. Temporary dialysis catheter is in good position. Endotracheal tube is in good radiographic position. Tunneled dialysis catheter is in position and ready for immediate use. Labs Labs: Laboratory Tests 09/02/24 05:05 09/02/24 05:05 Calcium 9.0 Phosphorus 5.0 H Magnesium 2.8 H Total Bilirubin 0.6 AST 119 H ALT 117 H Alkaline Phosphatase 138 H Total Protein 8.0 Albumin 4.0 Random Vancomycin 18.8
--- NOTE | 2024-09-02 12:46 | PM.IMHP ---
H&P: HPI History of Present Illness Date/Time: 09/02/24 12:46 Chief Complaint: Patient has prolonged intubation due to respiratory failure needing tracheostomy Review of Systems Review of Systems: ROS unobtainable: Yes unobtainable due to endotracheal tube PMFSH Past Medical History Medical History Recurrent urinary tract infection Fuchs' corneal dystrophy Cancer of kidney suspected kidney cancer being monitored for the last 4 years with recent increase in growth and plans for possible radiation therapy Coronary artery disease patient of Dr. Addy [place]wood at [facility] Type 2 diabetes mellitus Congestive heart failure Hypertension Surgical History Surgical History History of appendectomy History of cholecystectomy History of ventral hernia repair with mesh History of arthroplasty of right knee History of suprapubic catheter History of coronary artery stent placement (2018) Social History Social History Social History: Healthcare power of personal injury attorney: Bacilio Salas, son. Code status: Full code. Smoking status: Never smoker Alcohol intake: never Substance use: never Spiritual care concerns: No Meds Home Medications and Allergies Home Medications ?Medication ?Instructions ?Recorded ?Confirmed ?Type Lactobacillus acidophilus 100 mg PO DAILY 08/15/24 08/15/24 History (Acidophilus capsule) acetaminophen 325 mg tablet 325 mg PO Q4H PRN pain 08/15/24 08/15/24 History amlodipine 5 mg tablet 5 mg PO DAILY 08/15/24 08/15/24 History arginine-vitamin C-vitamin E oral 9.2 g PO TIDWM 08/15/24 08/15/24 History 4.5 gram-156 mg/9.2 gram powder pkt (Arginaid) aspirin 81 mg capsule 81 mg PO DAILY 08/15/24 08/15/24 History bupropion HCl 300 mg 24 hr tablet, 300 mg PO DAILY 08/15/24 08/15/24 History extended release d-mannose 500 mg capsule (AZO 500 mg PO BID 08/15/24 08/15/24 History D-Mannose) fluticasone propionate 50 1 spray intranasal Q12H PRN nasal 08/15/24 08/15/24 History mcg/actuation nasal congestion spray,suspension furosemide 20 mg tablet 20 mg PO .COMPLEX 08/15/24 08/15/24 History guaifenesin 600 mg tablet, 600 mg PO Q12H 08/15/24 08/15/24 History extended release 12 hr (Mucinex) hydralazine 50 mg tablet 50 mg PO Q12H 08/15/24 08/15/24 History hydrocodone 5 mg-acetaminophen 325 1 tablet PO Q4-6H PRN pain (scale 08/15/24 08/15/24 History mg tablet score 4-6) insulin lispro 100 unit/mL 1 sliding scale dose subcut 08/15/24 08/15/24 History subcutaneous solution (Humalog USEASDIRECTD U-100 Insulin) isosorbide mononitrate 30 mg 30 mg PO DAILY 08/15/24 08/15/24 History tablet,extended release 24 hr krill oil 500 mg capsule 1 mg PO DAILY 08/15/24 08/15/24 History loratadine 10 mg tablet 10 mg PO DAILY 08/15/24 08/15/24 History losartan 25 mg tablet 25 mg PO DAILY 08/15/24 08/15/24 History meclizine 25 mg tablet 25 mg PO QID PRN dizziness 08/15/24 08/15/24 History metoprolol succinate 25 mg 25 mg PO DAILY 08/15/24 08/15/24 History tablet,extended release 24 hr montelukast 10 mg tablet 10 mg PO HS 08/15/24 08/15/24 History multivitamin,uo-fcjh-Bt-FA-min 1 tablet PO Q12H 08/15/24 08/15/24 History polyethylene glycol 3350 17 gram 17 g PO DAILY PRN constipation 08/15/24 08/15/24 History oral powder packet (Miralax) potassium chloride 10 mEq 10 meq PO .COMPLEX 08/15/24 08/15/24 History tablet,extended release rosuvastatin 5 mg tablet 5 mg PO HS 08/15/24 08/15/24 History senna-docusate sodium tablet 1 tablet PO DAILY PRN constipation 08/15/24 08/15/24 History Allergies Allergy/AdvReac Type Severity Reaction Status Date / Time adhesive tape Allergy Unknown Verified 08/15/24 08:51 [facility] Allergy Unknown Verified 08/15/24 08:51 carvedilol Allergy Unknown Verified 08/15/24 08:51 latex Allergy Unknown Verified 08/15/24 08:51 Acmuswz-VQW-BdT Reductase Allergy Unknown Verified 08/15/24 08:51 Inhibitor Sulfa (Sulfonamide Allergy Unknown Verified 08/15/24 08:51 Antibiotics) sulfasalazine Allergy Hives Verified 08/15/24 08:51 Sulfonylureas Allergy Unknown Verified 08/15/24 08:51 Vital Signs Vital Signs - 24 hr 09/01/24 13:11 09/01/24 13:11 09/01/24 13:19 Temperature 37.3 C Pulse Rate 95 93 Respiratory Rate 29 H Blood Pressure 97/58 L 94/58 L Pulse Oximetry 98 Oxygen Delivery Fraction of Inspired Oxygen 30 09/01/24 13:30 09/01/24 13:45 09/01/24 14:00 Temperature Pulse Rate 90 97 98 Respiratory Rate Blood Pressure 105/66 110/64 Pulse Oximetry Oxygen Delivery Fraction of Inspired Oxygen 09/01/24 14:00 09/01/24 14:00 09/01/24 14:13 Temperature Pulse Rate 99 95 100 Respiratory Rate 32 H 33 H Blood Pressure 93/56 L 93/56 L Pulse Oximetry 95 Oxygen Delivery Fraction of Inspired Oxygen 09/01/24 14:15 09/01/24 14:20 09/01/24 14:23 Temperature Pulse Rate 97 97 97 Respiratory Rate Blood Pressure 85/52 L 85/52 L Pulse Oximetry 92 Oxygen Delivery Mechanical Ventilation Fraction of Inspired Oxygen 30 09/01/24 14:25 09/01/24 14:30 09/01/24 14:45 Temperature Pulse Rate 98 95 95 Respiratory Rate 32 H Blood Pressure 102/61 105/64 Pulse Oximetry Oxygen Delivery Fraction of Inspired Oxygen 09/01/24 15:00 09/01/24 15:00 09/01/24 15:15 Temperature Pulse Rate 94 94 93 Respiratory Rate Blood Pressure 109/66 109/66 98/62 L Pulse Oximetry Oxygen Delivery Fraction of Inspired Oxygen 09/01/24 15:30 09/01/24 15:35 09/01/24 15:36 Temperature Pulse Rate 133 H 123 H 144 H Respiratory Rate Blood Pressure 109/81 104/79 104/79 Pulse Oximetry Oxygen Delivery Fraction of Inspired Oxygen 09/01/24 15:45 09/01/24 15:46 09/01/24 16:00 Temperature Pulse Rate 122 H 133 H 128 H Respiratory Rate Blood Pressure 103/76 103/73 97/59 L Pulse Oximetry Oxygen Delivery Fraction of Inspired Oxygen 09/01/24 16:00 09/01/24 16:00 09/01/24 16:00 Temperature 37.2 C Pulse Rate 124 H 124 H Respiratory Rate 29 H 29 H Blood Pressure 97/59 L Pulse Oximetry 97 97 Oxygen Delivery Mechanical Ventilation Fraction of Inspired Oxygen 30 30 09/01/24 16:00 09/01/24 16:00 09/01/24 16:15 Temperature Pulse Rate 126 H 130 H 128 H Respiratory Rate Blood Pressure 97/59 L 101/68 Pulse Oximetry Oxygen Delivery Fraction of Inspired Oxygen 09/01/24 16:15 09/01/24 16:30 09/01/24 16:30 Temperature Pulse Rate 128 H 120 H 120 H Respiratory Rate Blood Pressure 101/68 106/78 106/78 Pulse Oximetry Oxygen Delivery Fraction of Inspired Oxygen 09/01/24 16:45 09/01/24 16:45 09/01/24 17:00 Temperature Pulse Rate 117 H 117 H 119 H Respiratory Rate Blood Pressure 100/69 100/69 97/73 L Pulse Oximetry Oxygen Delivery Fraction of Inspired Oxygen 09/01/24 17:00 09/01/24 17:07 09/01/24 17:15 Temperature Pulse Rate 120 H 117 H 132 H Respiratory Rate Blood Pressure 97/73 L 99/61 L Pulse Oximetry 98 Oxygen Delivery Mechanical Ventilation Fraction of Inspired Oxygen 30 09/01/24 17:15 09/01/24 17:30 09/01/24 17:34 Temperature Pulse Rate 121 H 138 H 121 H Respiratory Rate Blood Pressure 99/61 L 105/64 92/69 L Pulse Oximetry Oxygen Delivery Fraction of Inspired Oxygen 09/01/24 17:45 09/01/24 18:00 09/01/24 18:00 Temperature 37.5 C Pulse Rate 127 H 129 H 129 H Respiratory Rate 29 H 30 H Blood Pressure 106/67 98/72 L Pulse Oximetry 98 99 Oxygen Delivery Fraction of Inspired Oxygen 09/01/24 18:06 09/01/24 18:16 09/01/24 18:30 Temperature Pulse Rate 122 H 116 H 137 H Respiratory Rate Blood Pressure 98/72 L 112/79 121/83 Pulse Oximetry Oxygen Delivery Fraction of Inspired Oxygen 09/01/24 18:47 09/01/24 18:59 09/01/24 20:00 Temperature Pulse Rate 131 H 100 94 Respiratory Rate Blood Pressure 111/81 111/68 106/64 Pulse Oximetry Oxygen Delivery Fraction of Inspired Oxygen 09/01/24 20:00 09/01/24 20:00 09/01/24 20:00 Temperature 38.0 C H Pulse Rate 94 94 Respiratory Rate 31 H 31 H Blood Pressure 106/64 Pulse Oximetry 97 97 Oxygen Delivery Mechanical Ventilation Fraction of Inspired Oxygen 30 30 09/01/24 20:00 09/01/24 20:00 09/01/24 20:15 Temperature Pulse Rate 92 93 94 Respiratory Rate 32 H Blood Pressure 106/72 111/61 Pulse Oximetry 96 Oxygen Delivery Fraction of Inspired Oxygen 09/01/24 20:42 09/01/24 20:52 09/01/24 20:53 Temperature Pulse Rate 94 92 95 Respiratory Rate 30 H 28 H Blood Pressure Pulse Oximetry 96 Oxygen Delivery Mechanical Ventilation Fraction of Inspired Oxygen 30 09/01/24 21:00 09/01/24 21:02 09/01/24 21:15 Temperature Pulse Rate 94 94 93 Respiratory Rate 31 H 30 H Blood Pressure 107/65 107/65 105/63 Pulse Oximetry 96 95 Oxygen Delivery Fraction of Inspired Oxygen 09/01/24 21:17 09/01/24 22:00 09/01/24 22:00 Temperature 38.2 C H Pulse Rate 93 87 92 Respiratory Rate 30 H Blood Pressure 105/63 105/61 Pulse Oximetry 99 Oxygen Delivery Fraction of Inspired Oxygen 09/01/24 22:00 09/01/24 22:15 09/01/24 22:15 Temperature Pulse Rate 92 89 88 Respiratory Rate 30 H Blood Pressure 106/76 108/66 108/66 Pulse Oximetry 98 Oxygen Delivery Fraction of Inspired Oxygen 09/01/24 22:30 09/01/24 22:39 09/02/24 00:00 Temperature Pulse Rate 79 87 86 Respiratory Rate 30 H 30 H Blood Pressure 101/61 Pulse Oximetry 98 100 97 Oxygen Delivery Mechanical Ventilation Mechanical Ventilation Fraction of Inspired Oxygen 30 30 09/02/24 00:00 09/02/24 00:00 09/02/24 00:00 Temperature 38.0 C H Pulse Rate 85 80 Respiratory Rate 30 H Blood Pressure 102/57 L 94/57 L Pulse Oximetry 98 Oxygen Delivery Fraction of Inspired Oxygen 30 09/02/24 00:00 09/02/24 00:00 09/02/24 02:00 Temperature Pulse Rate 80 87 89 Respiratory Rate Blood Pressure 94/57 L 103/65 Pulse Oximetry Oxygen Delivery Fraction of Inspired Oxygen 09/02/24 02:00 09/02/24 02:00 09/02/24 02:00 Temperature Pulse Rate 89 88 85 Respiratory Rate 30 H Blood Pressure 103/65 103/65 Pulse Oximetry 97 Oxygen Delivery Fraction of Inspired Oxygen 09/02/24 02:02 09/02/24 02:04 09/02/24 02:11 Temperature Pulse Rate 87 86 86 Respiratory Rate 30 H 30 H Blood Pressure Pulse Oximetry 97 Oxygen Delivery Mechanical Ventilation Fraction of Inspired Oxygen 30 09/02/24 04:00 09/02/24 04:00 09/02/24 04:00 Temperature 37.7 C H Pulse Rate 81 81 Respiratory Rate 30 H 30 H Blood Pressure 100/60 Pulse Oximetry 97 97 Oxygen Delivery Mechanical Ventilation Fraction of Inspired Oxygen 30 30 09/02/24 04:00 09/02/24 04:00 09/02/24 04:00 Temperature Pulse Rate 87 86 80 Respiratory Rate Blood Pressure 100/60 100/60 Pulse Oximetry Oxygen Delivery Fraction of Inspired Oxygen 09/02/24 04:55 09/02/24 06:00 09/02/24 06:00 Temperature Pulse Rate 86 83 83 Respiratory Rate 30 H Blood Pressure 103/63 Pulse Oximetry 97 96 Oxygen Delivery Mechanical Ventilation Fraction of Inspired Oxygen 30 09/02/24 06:00 09/02/24 06:00 09/02/24 07:30 Temperature Pulse Rate 83 83 80 Respiratory Rate Blood Pressure 103/63 103/63 103/56 L Pulse Oximetry Oxygen Delivery Fraction of Inspired Oxygen 09/02/24 08:25 09/02/24 08:50 09/02/24 08:50 Temperature 37.3 C Pulse Rate 80 74 74 Respiratory Rate 15 15 Blood Pressure 103/56 L 91/61 L Pulse Oximetry 100 100 Oxygen Delivery Mechanical Ventilation Fraction of Inspired Oxygen 30 09/02/24 08:50 09/02/24 08:50 09/02/24 08:59 Temperature Pulse Rate 74 84 Respiratory Rate Blood Pressure 91/61 L Pulse Oximetry Oxygen Delivery Fraction of Inspired Oxygen 30 09/02/24 09:00 09/02/24 09:01 09/02/24 09:01 Temperature 37.5 C Pulse Rate 90 81 81 Respiratory Rate 28 H 19 Blood Pressure 84/52 L Pulse Oximetry 94 93 Oxygen Delivery Mechanical Ventilation Fraction of Inspired Oxygen 30 09/02/24 09:15 09/02/24 09:25 09/02/24 09:30 Temperature 37.4 C 37.2 C Pulse Rate 81 80 78 Respiratory Rate 21 H 29 H Blood Pressure 84/48 L 82/49 L Pulse Oximetry 94 95 Oxygen Delivery Fraction of Inspired Oxygen 09/02/24 09:47 09/02/24 10:00 09/02/24 10:00 Temperature 37.1 C Pulse Rate 76 74 74 Respiratory Rate 29 H Blood Pressure 75/47 L 95/53 L 95/53 L Pulse Oximetry 97 Oxygen Delivery Fraction of Inspired Oxygen 09/02/24 10:00 09/02/24 10:30 09/02/24 10:39 Temperature 37.7 C H Pulse Rate 74 72 72 Respiratory Rate 28 H Blood Pressure 91/53 L Pulse Oximetry 100 100 Oxygen Delivery Mechanical Ventilation Fraction of Inspired Oxygen 30 09/02/24 10:47 09/02/24 11:00 09/02/24 11:03 Temperature 37.3 C Pulse Rate 72 72 72 Respiratory Rate 32 H Blood Pressure 89/55 L 99/57 L 99/57 L Pulse Oximetry 100 Oxygen Delivery Fraction of Inspired Oxygen 09/02/24 12:00 09/02/24 12:00 Temperature 37.7 C H Pulse Rate 74 74 Respiratory Rate 31 H Blood Pressure 97/55 L 96/54 L Pulse Oximetry 99 Oxygen Delivery Fraction of Inspired Oxygen Exam HENMT: Other: no scars over the neck patient is intubated H&P: Results Labs Labs: Short CBC 09/02/24 Range/Units 05:05 WBC 13.1 H (4.5-10.0) K/mm3 Hgb 8.7 L (12.0-15.0) g/dL Hct 30.0 L (37.0-47.0) % Plt Count 151 (150-375) k/mm3 BMP 09/02/24 05:05 Sodium 138 Potassium 4.0 Chloride 95 L Carbon Dioxide 27 BUN 66 H D Creatinine 3.15 H Glucose 212 H Calcium 9.0 Liver Function 09/02/24 Range/Units 05:05 Total Bilirubin 0.6 (0.2-1.3) mg/dL AST 119 H (14-36) U/L ALT 117 H (6-35) U/L Alkaline Phosphatase 138 H (38-126) U/L Albumin 4.0 (3.5-5.1) g/dL Assessment and Plan Assessment and plan (1) Renal failure: Qualifiers: Renal failure chronicity: acute on chronic Acute renal failure type: unspecified Chronic kidney disease stage: stage 3 (moderate) Chronic kidney disease stage 3 subtype: unspecified whether 3a or 3b Qualified Code(s): N17.9 - Acute kidney failure, unspecified; N18.30 - Chronic kidney disease, stage 3 unspecified Code(s): N19 - Unspecified kidney failure Status: Acute Plan tracheostomy is scheduled on 09/03/2024
[2024-09-02] MEDS: HEPARIN SODIUM 5,000 UNITS/ML VIAL 5000 UNITS SUB-Q (13:05)
[2024-09-02] MEDS: NEOMYCIN/POLYMYXIN/BACITRACIN OINTMENT 15 GM TUBE 1 APPLIC TOPICAL (13:10)
[2024-09-02 13:12] LABS: Glucose Point of Care 173 mg/dl (65-105)
[2024-09-02 13:53] LABS: INR 1.4; Partial Thromboplastin Time 26.7 Seconds (22.3-36.8)
[2024-09-02 14:04] LABS: Glucose Point of Care 259 mg/dl (65-105)
[2024-09-02 15:04] LABS: Glucose Point of Care 233 mg/dl (65-105)
[2024-09-02 16:23] LABS: Glucose Point of Care 220 mg/dl (65-105)
[2024-09-02 17:11] LABS: Glucose Point of Care 215 mg/dl (65-105)
--- NOTE | 2024-09-02 17:30 | P.PNIM_ITS ---
Progress Note: A&P Assessment and Plan (1) DVT (deep venous thrombosis): Qualifiers: DVT location: lower extremity Affected thrombotic vein of extremity: tibial Chronicity: acute Laterality: bilateral Qualified Code(s): I82.443 - Acute embolism and thrombosis of tibial vein, bilateral Code(s): I82.409 - Acute embolism and thrombosis of unspecified deep veins of unspecified lower extremity Status: Resolved Assessment and Plan: repeat Venous doppler negative, heparin infusion disocnitnued (2) Anemia: Qualifiers: Anemia type: due to chronic kidney disease Chronic kidney disease stage: stage 3 (moderate) Chronic kidney disease stage 3 subtype: unspecified whether 3a or 3b Qualified Code(s): N18.30 - Chronic kidney disease, stage 3 unspecified; D63.1 - Anemia in chronic kidney disease Code(s): D64.9 - Anemia, unspecified Status: Acute Assessment and Plan: s/p 1 unit of blood transfusion Hb 8.7 from 6.9 (3) Acute respiratory failure with hypoxia: Code(s): J96.01 - Acute respiratory failure with hypoxia Status: Acute Assessment and Plan: Acute Respiratory failure secondary to combination of pneumonia and congestive heart failure 08/18: Intubated CT chest showed progression of lobar pneumonia with increasing bilateral pleural effusions Patient initially completed Vanc, Cefepime and Azithromycin on 08/27/24 however decompensated on 08/29 and was started on Vanc and Meropenem continue sedation and ventilation per [employer] tomorrow (4) Congestive heart failure: Qualifiers: Heart failure type: unspecified Heart failure chronicity: acute on chronic Qualified Code(s): I50.9 - Heart failure, unspecified Code(s): I50.9 - Heart failure, unspecified Status: Acute Assessment and Plan: See above (5) Non-ST elevation myocardial infarction (NSTEMI): Code(s): I21.4 - Non-ST elevation (NSTEMI) myocardial infarction Status: Acute Assessment and Plan: History of coronary disease status post PCI in the past now presented with elevated troponin. -Cardiology following -Other heart medications on hold due to low blood pressure -Statin on hold due to elevated LFTs. -No plan for cardiac catheterization at this time. -restart aspirin 81 mg (6) Coronary artery disease: Code(s): I25.10 - Atherosclerotic heart disease of [place] coronary artery without angina pectoris Status: Acute Assessment and Plan: See above (7) Type 2 diabetes mellitus: Code(s): E11.9 - Type 2 diabetes mellitus without complications Status: Chronic Assessment and Plan: Sliding scale insulin 08/29: Blood sugars in the 400s despite being Lantus 50 units q.12 hours. Patient was started on insulin infusion on Lantus was discontinued -continue insulin infusion, will transition to long-acting insulin and sliding scale insulin when she gets all her procedures as she has to be NPO for the procedure Off steroids (8) Renal failure: Qualifiers: Renal failure chronicity: acute on chronic Acute renal failure type: unspecified Chronic kidney disease stage: stage 3 (moderate) Chronic kidney disease stage 3 subtype: unspecified whether 3a or 3b Qualified Code(s): N17.9 - Acute kidney failure, unspecified; N18.30 - Chronic kidney disease, stage 3 unspecified Code(s): N19 - Unspecified kidney failure Status: Acute Assessment and Plan: Patient presented with creatinine of 1.5. Baseline creatinine unknown She has suprapubic catheter. As per son patient has had a renal tumor which was being monitored and plan was to start radiation therapy by her urology CT scan showed Subtle 2.5 cm mass at the upper pole of the right kidney consistent with provided history of renal tumor. Calcification is at the bilateral kidneys which appear linear and likely atherosclerotic although could not exclude nonobstructing nephrolithiasis. No hydronephrosis in either kidney. Diuretics were held and patient was given albumin bolus Creatinine continue to increase with poor urine output. 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 08/19 dialysis catheter was placed and patient was dialyzed 1 L fluid was removed Monitor urine output electrolytes and creatinine Dialysis per Nephrology -09/02: Panel dialysis placed (9) Pneumonia: Qualifiers: Laterality: bilateral Lung location: lower lobe of lung Pneumonia type: due to methicillin-resistant Staphylococcus aureus (MRSA) Qualified Code(s): J15.212 - Pneumonia due to Methicillin resistant Staphylococcus aureus Code(s): J18.9 - Pneumonia, unspecified organism Status: Acute Assessment and Plan: See above (10) Kidney mass: Code(s): N28.89 - Other specified disorders of kidney and ureter Status: Acute Assessment and Plan: Patient's son reports history of kidney mass which is being monitored as it was too big to be removed without total nephrectomy. He states that patient was supposed to get radiation therapy in a month or so before she fractured her ankle. CT scan shows 2.5 cm renal mass on the right side and no hydronephrosis. No intervention at this time (11) Septic shock: Code(s): A41.9 - Sepsis, unspecified organism; R65.21 - Severe sepsis with septic shock Status: Acute Assessment and Plan: Off all pressors Patient requires Levophed mainly when she is receiving dialysis -continue antibiotics as above (12) Ileus: Code(s): K56.7 - Ileus, unspecified Status: Acute Assessment and Plan: RESOLVED Patient has significant output from her OG tube. She has not been tolerating tube feeds. She is on Reglan Bowel sounds are decreased. KUB does not show anything significant abnormal 08/23 Dobbhoff placed tube feeds resume 08/24 will advance tube feeds to 40 mL/hour -patient tolerating tube feeds with minimal residual, positive bowel movement 08/31: PEG tube inserted by GI (13) Atrial fibrillation with RVR: Code(s): I48.91 - Unspecified atrial fibrillation Status: Acute Assessment and Plan: Patient went into AFib with RVR after hemodialysis.. She was started on amiodarone infusion. She has converted to sinus bradycardia, amiodarone was discontinued on 08/26/2024 Currently off heparin infusion due to anemia 08/30: Patient went to AFib RVR during dialysis, with rates in the 140s to 150s, started patient on amiodarone bolus and infusion, will let the infusion complete -continue prophylactic heparin SQ -patient was into AFib RVR with dialysis, also requires norepinephrine during dialysis. Patient has been started couple of times on amiodarone infusion and converts to sinus rhythm after dialysis and amiodarone drip has to be discontinued. -will place patient on low-dose amiodarone per feeding tube (14) Encephalopathy: Code(s): G93.40 - Encephalopathy, unspecified Status: Acute Assessment and Plan: Patient was on Versed and fentanyl infusion for many days. She also has renal failure which may lead to accumulation -started on propofol infusion -off propofol patient becomes tachypneic and dyssynchronous with the ventilator leading her to desaturate -08/26/2024: CT scan of the brain No intracranial hemorrhage, mass, or acute infarct.Atrophy and chronic white matter changes. -ammonia levels within normal limits -08/29: propofol has been switched to Precedex, to allow patient to wake up -continue to wean Precedex. -09/01: CT brain with no acute intracranial process, age-related changes, unchanged bilateral otomastoiditis effusion Plan DVT prophylaxis -heparin subQ Stress ulcer prophylaxis - Protonix to q.12 hours Nutrition - tube feeds currently on hold for tunnel dialysis procedure, will restart once patient gets back from the OR Code Status - Full Code Subjective Date/time seen: 09/02/24 17:30 Interval history: Intubated and sedated Review of Systems Review of Systems: 12 systems were reviewed and are negativ e except for as per HPI. ROS unobtainable: Yes unobtainable due to endotracheal tube, unobtainable due to medical condition and unobtainable due to mental status Exam Narrative: General: Pt is intubated and on mechanical ventilation HEENT: Pupils equal and reactive, sclera is clear, ETT in place. skin puncture wound at the site of ETAD Lungs/Chest: Trachea central Coarse BS B/L, bilateral rales, no wheezing, adequate air entry Cardiac: RRR. Normal S1 S2. No murmurs Abdomen: Soft, nontender, nondistended, hypoactive bowel sounds Extremities: Bilateral pitting edema, palpable pedal pulse : Butt in place Neurologic: Currently intubated, on Precedex infusion, open her eyes, does not follows simple commands. She does withdraw to pain stimulus. has a cough and a gag reflex Objective Data Vital Signs Vital Signs: Vital Signs - 24 hr 09/01/24 17:34 09/01/24 17:45 09/01/24 18:00 Temperature 99.5 F Pulse Rate 121 H 127 H 129 H Respiratory Rate 29 H Blood Pressure 92/69 L 106/67 Pulse Oximetry 98 Oxygen Delivery Fraction of Inspired Oxygen 09/01/24 18:00 09/01/24 18:06 09/01/24 18:16 Temperature Pulse Rate 129 H 122 H 116 H Respiratory Rate 30 H Blood Pressure 98/72 L 98/72 L 112/79 Pulse Oximetry 99 Oxygen Delivery Fraction of Inspired Oxygen 09/01/24 18:30 09/01/24 18:47 09/01/24 18:59 Temperature Pulse Rate 137 H 131 H 100 Respiratory Rate Blood Pressure 121/83 111/81 111/68 Pulse Oximetry Oxygen Delivery Fraction of Inspired Oxygen 09/01/24 20:00 09/01/24 20:00 09/01/24 20:00 Temperature 100.4 F H Pulse Rate 94 94 Respiratory Rate 31 H Blood Pressure 106/64 106/64 Pulse Oximetry 97 Oxygen Delivery Fraction of Inspired Oxygen 30 09/01/24 20:00 09/01/24 20:00 09/01/24 20:00 Temperature Pulse Rate 94 92 93 Respiratory Rate 31 H Blood Pressure 106/72 Pulse Oximetry 97 Oxygen Delivery Mechanical Ventilation Fraction of Inspired Oxygen 30 09/01/24 20:15 09/01/24 20:42 09/01/24 20:52 Temperature Pulse Rate 94 94 92 Respiratory Rate 32 H 30 H 28 H Blood Pressure 111/61 Pulse Oximetry 96 Oxygen Delivery Fraction of Inspired Oxygen 09/01/24 20:53 09/01/24 21:00 09/01/24 21:02 Temperature Pulse Rate 95 94 94 Respiratory Rate 31 H Blood Pressure 107/65 107/65 Pulse Oximetry 96 96 Oxygen Delivery Mechanical Ventilation Fraction of Inspired Oxygen 30 09/01/24 21:15 09/01/24 21:17 09/01/24 22:00 Temperature 100.7 F H Pulse Rate 93 93 87 Respiratory Rate 30 H 30 H Blood Pressure 105/63 105/63 105/61 Pulse Oximetry 95 99 Oxygen Delivery Fraction of Inspired Oxygen 09/01/24 22:00 09/01/24 22:00 09/01/24 22:15 Temperature Pulse Rate 92 92 89 Respiratory Rate Blood Pressure 106/76 108/66 Pulse Oximetry Oxygen Delivery Fraction of Inspired Oxygen 09/01/24 22:15 09/01/24 22:30 09/01/24 22:39 Temperature Pulse Rate 88 79 87 Respiratory Rate 30 H 30 H Blood Pressure 108/66 101/61 Pulse Oximetry 98 98 100 Oxygen Delivery Mechanical Ventilation Fraction of Inspired Oxygen 30 09/02/24 00:00 09/02/24 00:00 09/02/24 00:00 Temperature 100.4 F H Pulse Rate 86 85 Respiratory Rate 30 H 30 H Blood Pressure 102/57 L Pulse Oximetry 97 98 Oxygen Delivery Mechanical Ventilation Fraction of Inspired Oxygen 30 30 09/02/24 00:00 09/02/24 00:00 09/02/24 00:00 Temperature Pulse Rate 80 80 87 Respiratory Rate Blood Pressure 94/57 L 94/57 L Pulse Oximetry Oxygen Delivery Fraction of Inspired Oxygen 09/02/24 02:00 09/02/24 02:00 09/02/24 02:00 Temperature Pulse Rate 89 89 88 Respiratory Rate 30 H Blood Pressure 103/65 103/65 103/65 Pulse Oximetry 97 Oxygen Delivery Fraction of Inspired Oxygen 09/02/24 02:00 09/02/24 02:02 09/02/24 02:04 Temperature Pulse Rate 85 87 86 Respiratory Rate 30 H Blood Pressure Pulse Oximetry 97 Oxygen Delivery Mechanical Ventilation Fraction of Inspired Oxygen 30 09/02/24 02:11 09/02/24 04:00 09/02/24 04:00 Temperature 99.8 F H Pulse Rate 86 81 Respiratory Rate 30 H 30 H Blood Pressure 100/60 Pulse Oximetry 97 Oxygen Delivery Fraction of Inspired Oxygen 30 09/02/24 04:00 09/02/24 04:00 09/02/24 04:00 Temperature Pulse Rate 81 87 86 Respiratory Rate 30 H Blood Pressure 100/60 100/60 Pulse Oximetry 97 Oxygen Delivery Mechanical Ventilation Fraction of Inspired Oxygen 30 09/02/24 04:00 09/02/24 04:55 09/02/24 06:00 Temperature Pulse Rate 80 86 83 Respiratory Rate Blood Pressure Pulse Oximetry 97 Oxygen Delivery Mechanical Ventilation Fraction of Inspired Oxygen 30 09/02/24 06:00 09/02/24 06:00 09/02/24 06:00 Temperature Pulse Rate 83 83 83 Respiratory Rate 30 H Blood Pressure 103/63 103/63 103/63 Pulse Oximetry 96 Oxygen Delivery Fraction of Inspired Oxygen 09/02/24 07:30 09/02/24 08:25 09/02/24 08:50 Temperature 99.1 F Pulse Rate 80 80 74 Respiratory Rate 15 Blood Pressure 103/56 L 103/56 L 91/61 L Pulse Oximetry 100 Oxygen Delivery Fraction of Inspired Oxygen 09/02/24 08:50 09/02/24 08:50 09/02/24 08:50 Temperature Pulse Rate 74 74 Respiratory Rate 15 Blood Pressure Pulse Oximetry 100 Oxygen Delivery Mechanical Ventilation Fraction of Inspired Oxygen 30 30 09/02/24 08:59 09/02/24 09:00 09/02/24 09:01 Temperature 99.5 F Pulse Rate 84 90 81 Respiratory Rate 28 H Blood Pressure 91/61 L 84/52 L Pulse Oximetry 94 93 Oxygen Delivery Mechanical Ventilation Fraction of Inspired Oxygen 30 09/02/24 09:01 09/02/24 09:15 09/02/24 09:25 Temperature 99.3 F Pulse Rate 81 81 80 Respiratory Rate 19 21 H Blood Pressure 84/48 L Pulse Oximetry 94 Oxygen Delivery Fraction of Inspired Oxygen 09/02/24 09:30 09/02/24 09:47 09/02/24 10:00 Temperature 99.0 F 98.7 F Pulse Rate 78 76 74 Respiratory Rate 29 H 29 H Blood Pressure 82/49 L 75/47 L 95/53 L Pulse Oximetry 95 97 Oxygen Delivery Fraction of Inspired Oxygen 09/02/24 10:00 09/02/24 10:00 09/02/24 10:30 Temperature 99.8 F H Pulse Rate 74 74 72 Respiratory Rate 28 H Blood Pressure 95/53 L 91/53 L Pulse Oximetry 100 Oxygen Delivery Fraction of Inspired Oxygen 09/02/24 10:39 09/02/24 10:47 09/02/24 11:00 Temperature 99.1 F Pulse Rate 72 72 72 Respiratory Rate 32 H Blood Pressure 89/55 L 99/57 L Pulse Oximetry 100 100 Oxygen Delivery Mechanical Ventilation Fraction of Inspired Oxygen 30 09/02/24 11:03 09/02/24 12:00 09/02/24 12:00 Temperature 99.9 F H Pulse Rate 72 74 74 Respiratory Rate 31 H Blood Pressure 99/57 L 97/55 L 96/54 L Pulse Oximetry 99 Oxygen Delivery Fraction of Inspired Oxygen 09/02/24 12:00 09/02/24 12:00 09/02/24 12:00 Temperature Pulse Rate 87 74 Respiratory Rate 19 Blood Pressure Pulse Oximetry 97 Oxygen Delivery Mechanical Ventilation Fraction of Inspired Oxygen 30 30 09/02/24 13:00 09/02/24 13:01 09/02/24 13:15 Temperature 100.0 F H Pulse Rate 88 87 81 Respiratory Rate 22 H Blood Pressure 95/64 L 95/64 L 111/65 Pulse Oximetry 97 Oxygen Delivery Fraction of Inspired Oxygen 09/02/24 13:30 09/02/24 13:33 09/02/24 13:33 Temperature Pulse Rate 87 87 87 Respiratory Rate 19 Blood Pressure 104/57 L Pulse Oximetry 97 Oxygen Delivery Mechanical Ventilation Fraction of Inspired Oxygen 30 09/02/24 13:44 09/02/24 13:45 09/02/24 14:00 Temperature Pulse Rate 92 90 84 Respiratory Rate 23 H Blood Pressure 119/70 Pulse Oximetry Oxygen Delivery Fraction of Inspired Oxygen 09/02/24 14:00 09/02/24 14:00 09/02/24 15:01 Temperature 99.8 F H Pulse Rate 84 85 77 Respiratory Rate 28 H Blood Pressure 92/53 L 92/53 L 99/56 L Pulse Oximetry 97 Oxygen Delivery Fraction of Inspired Oxygen 09/02/24 15:15 09/02/24 15:30 09/02/24 15:45 Temperature Pulse Rate 78 82 88 Respiratory Rate Blood Pressure 98/55 L 122/71 123/72 Pulse Oximetry Oxygen Delivery Fraction of Inspired Oxygen 09/02/24 16:00 09/02/24 16:00 09/02/24 16:00 Temperature 99.3 F Pulse Rate 81 81 81 Respiratory Rate 22 H 22 H Blood Pressure 106/62 106/62 Pulse Oximetry 95 98 Oxygen Delivery Mechanical Ventilation Fraction of Inspired Oxygen 30 09/02/24 16:00 09/02/24 16:00 09/02/24 16:47 Temperature Pulse Rate 83 77 Respiratory Rate Blood Pressure Pulse Oximetry 97 Oxygen Delivery Mechanical Ventilation Fraction of Inspired Oxygen 30 30 09/02/24 17:10 Temperature Pulse Rate 75 Respiratory Rate Blood Pressure 80/51 L Pulse Oximetry Oxygen Delivery Fraction of Inspired Oxygen Intake/Output Intake/Output: Intake & Output 08/30/24 08/31/24 09/01/24 09/02/24 23:59 23:59 23:59 23:59 Intake Total 2261.6 1288.4 1095.8 1251.2 Output Total 2315 3545 15 Balance -53.4 1288.4 -2449.2 1236.2 Meds/Results Medications: Active Medications Generic Name Dose Route Start Last Admin Trade Name Freq PRN Reason Stop Dose Admin Acetaminophen 650 mg 08/18/24 21:48 08/28/24 01:10 Acetaminophen Elixir 325 Mg/10.15 Ml Udc PO 650 mg Q4H PRN Administration Mild Pain (1-3) or Fever Acetylcysteine 200 mg 08/28/24 08:00 09/02/24 13:30 Acetylcysteine 20% Inhal Soln 800 Mg/4 Ml Vial INHALATION 200 mg Q6HRT TEMI Administration Amiodarone HCl 200 mg 09/02/24 09:25 09/02/24 09:25 Amiodarone Hcl 200 Mg Tablet PO 200 mg DAILY@0800 TEMI Administration Aspirin 81 mg 09/02/24 08:00 09/02/24 09:05 Aspirin 81 Mg Chewable Tablet PO 81 mg DAILY@0800 TEMI Administration Dextrose 12.5 gm 08/29/24 15:45 Dextrose 50% 25 Gm/50 Ml Syringe IV PUSH PRN PRN Hypoglycemia Protocol Glucagon 1 mg 08/29/24 15:45 Glucagon For Inj 1 Mg Vial IM PRN PRN Hypoglycemia Protocol Glucose 15 gm 08/29/24 15:45 Glucose Oral Gel 15 Gm Of Glucse In 37.5 Gm Tube PO PRN PRN Hypoglycemia Protocol Heparin Sodium (Porcine) 5,000 units 08/29/24 07:45 09/02/24 13:05 Heparin Sodium 5,000 Units/Ml Vial SUB-Q 5,000 units Q8HR TEMI Administration Albumin Human 50 mls @ 999 mls/hr 08/21/24 06:28 Albutein IVPB 09/20/24 06:27 Q10M PRN HYPOTENSION Meropenem 500 mg in 100 mls @ 200 mls/hr 08/29/24 08:00 09/02/24 08:18 IVPB 09/04/24 08:29 Infused Q24H TEMI Infusion Insulin Human Regular 100 100 mls @ 2 mls/hr 08/29/24 16:00 09/02/24 17:10 units/ Sodium Chloride IV CONT 2 units/hr .Q24H TEMI 2 mls/hr Titration Protocol 2 UNITS/HR Dextrose 1,000 mls @ 100 mls/hr 08/29/24 15:45 Dextrose 5% 1,000 Ml IVPB PRN PRN Hypoglycemia Protocol Norepinephrine Bitartrate 8 mg in 250 mls @ 3.75 mls/hr 08/30/24 11:10 09/02/24 17:10 Levophed 8 Mg/D5w 250 Ml IV CONT 2 mcg/min .Q24H TEMI 3.75 mls/hr Titration Protocol 2 MCG/MIN Insulin Aspart 4 - 8 units 08/20/24 21:05 08/29/24 12:41 Insulin Aspart (*Bkc) 100 Units/Ml SUB-Q 8 units Q4HR TEMI Administration Protocol Insulin Glargine 50 units 08/29/24 09:00 08/29/24 08:22 Insulin Glargine (*Bkc) 100 Units/Ml SUB-Q 50 units Q12H TEMI Administration Ipratropium [place] 0.5 mg 08/29/24 12:22 08/29/24 12:20 Ipratropium Br 0.02% Inh Soln 0.5 Mg/2.5 Ml Vial INHALATION 0.5 mg Q6HRT PRN Administration Wheezing Levalbuterol HCl 1.25 mg 08/29/24 14:00 09/02/24 13:30 Levalbuterol Neb 1.25 Mg/3 Ml INHALATION 1.25 mg Q6HRT TEMI Administration Levalbuterol HCl 1.25 mg 08/29/24 12:22 08/29/24 12:20 Levalbuterol Neb 1.25 Mg/3 Ml INHALATION 1.25 mg Q6HRT PRN Administration Wheezing Metoclopramide HCl 10 mg 08/23/24 08:00 09/02/24 13:05 Metoclopramide Hcl 10 Mg/10 Ml Soln Udc PO 10 mg Q6H TEMI Administration Multi-Ingred Cream/Lotion/Oil/Oint 1 applic 08/18/24 09:00 09/02/24 09:05 Mineral Oil/White Petrolatum Ointment EACH EYE 1 applic Q12HR TEMI Administration Neomycin/Polymyxin/Bacitracin 1 applic 09/02/24 12:25 09/02/24 13:10 Neomycin/Polymyxin/Bacitracin Ointment 15 Gm Tube TOPICAL 1 applic Q12H TEMI Administration Pantoprazole Sodium 40 mg 08/28/24 21:00 09/02/24 09:05 Pantoprazole Sodium Iv 40 Mg Vial IV PUSH 40 mg Q12HR TEMI Administration Polyethylene Glycol 17 gm 08/15/24 22:20 08/28/24 08:19 Polyethylene Glycol 3350 17 Gm Powd.Pack PO 17 gm DAILY PRN Administration constipation Sodium Chloride 10 ml 08/19/24 22:00 09/02/24 13:05 Central Line Flush IV PUSH 10 ml Q8HR TEMI Administration Sodium Chloride 20 ml 08/19/24 18:43 Central Line Flush IV PUSH PRN PRN after blood draws Vancomycin HCl 1 each 08/30/24 06:14 Vancomycin For Hemodialysis IVPB 09/04/24 23:59 PRN PRN Vancomycin Protocol Radiology Results: ITS Impressions Chest CTA 08/15/24 11:11 IMPRESSION: No pulmonary embolus. No thoracic aortic dissection. Right upper lobe infiltrate with patchy bilateral airspace disease, likely inflammatory/congestive rather than infectious. Small bilateral pleural effusions with adjacent atelectasis. Renal Ultrasound 08/19/24 14:10 IMPRESSION: No hydronephrosis or renal calculi. Findings suggesting medical renal disease. Findings within the upper pole of the right kidney consistent with patient's history, as detailed above. Chest/Abdomen/Pelvis CT 08/23/24 09:58 IMPRESSION: CHEST: 1. Bilateral pneumonia which is slightly decreased compared to previous study. Bilateral pleural effusion more on the right side. ABDOMEN/PELVIS: 1. No evidence of appendicitis, diverticulitis or intestinal obstruction. 2. Bilateral tiny kidney stones. 3. Hepatomegaly. 4. No evidence of ileus seen. ADDENDUM: 08/23/24 1042 Possibility of mass in the right kidney upper pole cannot be excluded. Abdomen X-Ray 08/23/24 16:53 IMPRESSION: 1. Dobbhoff type nasoenteric feeding tube with distal tip projecting over the gastric fundus. Venous Doppler Study 08/30/24 15:18 IMPRESSION: Negative bilateral lower extremity venous US. No deep vein thrombosis. Head CT 09/01/24 10:03 IMPRESSION: 1. No acute intracranial process. 2. Age-related changes including moderate diffuse volume loss and moderate scattered white matter attenuation consistent with chronic small vessel ischemic disease. 3. Unchanged bilateral otomastoiditis effusions. Chest X-Ray 09/02/24 09:46 IMPRESSION: Bilateral pleural effusions. Temporary dialysis catheter is in good position. Endotracheal tube is in good radiographic position. Tunneled dialysis catheter is in position and ready for immediate use. Labs Labs: Laboratory Results - last 24 hr 09/01/24 09/01/24 09/01/24 18:06 18:58 20:04 WBC RBC Hgb Hct MCV MCH MCHC RDW Plt Count MPV % Immature Plt Fraction PT INR APTT Puncture Site ABG pH ABG pCO2 ABG pO2 ABG PO2/FiO2 Ratio ABG HCO3 ABG O2 Saturation ABG O2 Content ABG Base Excess A-a Gradient Oxyhemoglobin Carboxyhemoglobin Methemoglobin Reduced Hemoglobin Total Hemoglobin O2 Delivery Device O2 Liters/Min Minute Volume Vent Rate Vent Mode FiO2 Tidal Volume PEEP Peak Inspir Pressure Pressure Support Sodium Potassium Chloride Carbon Dioxide Anion Gap BUN Creatinine Estim Creat Clear Calc Estimated GFR Glucose POC Capillary Glucose 212 H 252 H 288 H Calcium Phosphorus Magnesium Total Bilirubin AST ALT Alkaline Phosphatase Total Protein Albumin Random Vancomycin 09/01/24 09/01/24 09/01/24 20:59 22:15 23:11 WBC RBC Hgb Hct MCV MCH MCHC RDW Plt Count MPV % Immature Plt Fraction PT INR APTT Puncture Site ABG pH ABG pCO2 ABG pO2 ABG PO2/FiO2 Ratio ABG HCO3 ABG O2 Saturation ABG O2 Content ABG Base Excess A-a Gradient Oxyhemoglobin Carboxyhemoglobin Methemoglobin Reduced Hemoglobin Total Hemoglobin O2 Delivery Device O2 Liters/Min Minute Volume Vent Rate Vent Mode FiO2 Tidal Volume PEEP Peak Inspir Pressure Pressure Support Sodium Potassium Chloride Carbon Dioxide Anion Gap BUN Creatinine Estim Creat Clear Calc Estimated GFR Glucose POC Capillary Glucose 297 H 277 H 265 H Calcium Phosphorus Magnesium Total Bilirubin AST ALT Alkaline Phosphatase Total Protein Albumin Random Vancomycin 09/02/24 09/02/24 09/02/24 00:17 01:24 02:19 WBC RBC Hgb Hct MCV MCH MCHC RDW Plt Count MPV % Immature Plt Fraction PT INR APTT Puncture Site ABG pH ABG pCO2 ABG pO2 ABG PO2/FiO2 Ratio ABG HCO3 ABG O2 Saturation ABG O2 Content ABG Base Excess A-a Gradient Oxyhemoglobin Carboxyhemoglobin Methemoglobin Reduced Hemoglobin Total Hemoglobin O2 Delivery Device O2 Liters/Min Minute Volume Vent Rate Vent Mode FiO2 Tidal Volume PEEP Peak Inspir Pressure Pressure Support Sodium Potassium Chloride Carbon Dioxide Anion Gap BUN Creatinine Estim Creat Clear Calc Estimated GFR Glucose POC Capillary Glucose 226 H 216 H 201 H Calcium Phosphorus Magnesium Total Bilirubin AST ALT Alkaline Phosphatase Total Protein Albumin Random Vancomycin 09/02/24 09/02/24 09/02/24 03:16 04:17 04:40 WBC RBC Hgb Hct MCV MCH MCHC RDW Plt Count MPV % Immature Plt Fraction PT INR APTT Puncture Site Right radial ABG pH 7.496 H ABG pCO2 32.8 L ABG pO2 95.6 ABG PO2/FiO2 Ratio 3.19 ABG HCO3 24.8 ABG O2 Saturation 97.8 ABG O2 Content 13.3 L ABG Base Excess 1.8 A-a Gradient 79.8 Oxyhemoglobin 97.2 Carboxyhemoglobin 0.1 Methemoglobin 0.3 Reduced Hemoglobin 2.4 Total Hemoglobin 9.6 L O2 Delivery Device Ventilator O2 Liters/Min Not Reportable Minute Volume Not Reportable Vent Rate 18 Vent Mode Cmv FiO2 30 Tidal Volume 320 PEEP 8 Peak Inspir Pressure Not Reportable Pressure Support Not Reportable Sodium Potassium Chloride Carbon Dioxide Anion Gap BUN Creatinine Estim Creat Clear Calc Estimated GFR Glucose POC Capillary Glucose 190 H 217 H Calcium Phosphorus Magnesium Total Bilirubin AST ALT Alkaline Phosphatase Total Protein Albumin Random Vancomycin 09/02/24 09/02/24 09/02/24 05:01 05:05 06:08 WBC 13.1 H RBC 3.42 L Hgb 8.7 L Hct 30.0 L MCV 87.7 MCH 25.4 L MCHC 29.0 L RDW 19.8 H Plt Count 151 MPV 11.1 H % Immature Plt Fraction 7.0 PT INR APTT Puncture Site ABG pH ABG pCO2 ABG pO2 ABG PO2/FiO2 Ratio ABG HCO3 ABG O2 Saturation ABG O2 Content ABG Base Excess A-a Gradient Oxyhemoglobin Carboxyhemoglobin Methemoglobin Reduced Hemoglobin Total Hemoglobin O2 Delivery Device O2 Liters/Min Minute Volume Vent Rate Vent Mode FiO2 Tidal Volume PEEP Peak Inspir Pressure Pressure Support Sodium 138 Potassium 4.0 Chloride 95 L Carbon Dioxide 27 Anion Gap 16 H BUN 66 H D Creatinine 3.15 H Estim Creat Clear Calc 14 Estimated GFR 14 L Glucose 212 H POC Capillary Glucose 230 H 247 H Calcium 9.0 Phosphorus 5.0 H Magnesium 2.8 H Total Bilirubin 0.6 AST 119 H ALT 117 H Alkaline Phosphatase 138 H Total Protein 8.0 Albumin 4.0 Random Vancomycin 18.8 09/02/24 09/02/24 09/02/24 07:05 08:57 09:38 WBC RBC Hgb Hct MCV MCH MCHC RDW Plt Count MPV % Immature Plt Fraction PT INR APTT Puncture Site ABG pH ABG pCO2 ABG pO2 ABG PO2/FiO2 Ratio ABG HCO3 ABG O2 Saturation ABG O2 Content ABG Base Excess A-a Gradient Oxyhemoglobin Carboxyhemoglobin Methemoglobin Reduced Hemoglobin Total Hemoglobin O2 Delivery Device O2 Liters/Min Minute Volume Vent Rate Vent Mode FiO2 Tidal Volume PEEP Peak Inspir Pressure Pressure Support Sodium Potassium Chloride Carbon Dioxide Anion Gap BUN Creatinine Estim Creat Clear Calc Estimated GFR Glucose POC Capillary Glucose 266 H 301 H Calcium Phosphorus Magnesium Total Bilirubin AST ALT Alkaline Phosphatase Total Protein Albumin Random Vancomycin 17.0 09/02/24 09/02/24 09/02/24 09:55 11:02 12:11 WBC RBC Hgb Hct MCV MCH MCHC RDW Plt Count MPV % Immature Plt Fraction PT INR APTT Puncture Site ABG pH ABG pCO2 ABG pO2 ABG PO2/FiO2 Ratio ABG HCO3 ABG O2 Saturation ABG O2 Content ABG Base Excess A-a Gradient Oxyhemoglobin Carboxyhemoglobin Methemoglobin Reduced Hemoglobin Total Hemoglobin O2 Delivery Device O2 Liters/Min Minute Volume Vent Rate Vent Mode FiO2 Tidal Volume PEEP Peak Inspir Pressure Pressure Support Sodium Potassium Chloride Carbon Dioxide Anion Gap BUN Creatinine Estim Creat Clear Calc Estimated GFR Glucose POC Capillary Glucose 301 H 234 H 193 H Calcium Phosphorus Magnesium Total Bilirubin AST ALT Alkaline Phosphatase Total Protein Albumin Random Vancomycin 09/02/24 09/02/24 09/02/24 12:59 13:25 14:02 WBC RBC Hgb Hct MCV MCH MCHC RDW Plt Count MPV % Immature Plt Fraction PT 17.0 H INR 1.4 APTT 26.7 Puncture Site ABG pH ABG pCO2 ABG pO2 ABG PO2/FiO2 Ratio ABG HCO3 ABG O2 Saturation ABG O2 Content ABG Base Excess A-a Gradient Oxyhemoglobin Carboxyhemoglobin Methemoglobin Reduced Hemoglobin Total Hemoglobin O2 Delivery Device O2 Liters/Min Minute Volume Vent Rate Vent Mode FiO2 Tidal Volume PEEP Peak Inspir Pressure Pressure Support Sodium Potassium Chloride Carbon Dioxide Anion Gap BUN Creatinine Estim Creat Clear Calc Estimated GFR Glucose POC Capillary Glucose 173 H 259 H Calcium Phosphorus Magnesium Total Bilirubin AST ALT Alkaline Phosphatase Total Protein Albumin Random Vancomycin 09/02/24 09/02/24 09/02/24 15:00 15:57 17:09 WBC RBC Hgb Hct MCV MCH MCHC RDW Plt Count MPV % Immature Plt Fraction PT INR APTT Puncture Site ABG pH ABG pCO2 ABG pO2 ABG PO2/FiO2 Ratio ABG HCO3 ABG O2 Saturation ABG O2 Content ABG Base Excess A-a Gradient Oxyhemoglobin Carboxyhemoglobin Methemoglobin Reduced Hemoglobin Total Hemoglobin O2 Delivery Device O2 Liters/Min Minute Volume Vent Rate Vent Mode FiO2 Tidal Volume PEEP Peak Inspir Pressure Pressure Support Sodium Potassium Chloride Carbon Dioxide Anion Gap BUN Creatinine Estim Creat Clear Calc Estimated GFR Glucose POC Capillary Glucose 233 H 220 H 215 H Calcium Phosphorus Magnesium Total Bilirubin AST ALT Alkaline Phosphatase Total Protein Albumin Random Vancomycin Quality VTE Prophylaxis VTE prophylaxis: mechanical ordered and pharmacologic ordered
[2024-09-02 18:03] LABS: Glucose Point of Care 225 mg/dl (65-105)
[2024-09-02 19:01] LABS: Glucose Point of Care 257 mg/dl (65-105)
[2024-09-02 20:10] LABS: Glucose Point of Care 244 mg/dl (65-105)
[2024-09-02 21:01] LABS: Glucose Point of Care 235 mg/dl (65-105)
[2024-09-02 21:59] LABS: Glucose Point of Care 238 mg/dl (65-105)
[2024-09-02 23:19] LABS: Glucose Point of Care 255 mg/dl (65-105)
[2024-09-03] VITALS (78 sets, daily range): BP systolic 78–124; BP diastolic 43–87; PULSE 70–155; RESP 21–32; TEMP 36–37.5; O2SAT 95–100
[2024-09-03 00:01] LABS: Glucose Point of Care 249 mg/dl (65-105)
[2024-09-03] MEDS: NEOMYCIN/POLYMYXIN/BACITRACIN OINTMENT 15 GM TUBE 1 APPLIC TOPICAL ×2 (00:33→11:22)
[2024-09-03 01:04] LABS: Glucose Point of Care 253 mg/dl (65-105)
[2024-09-03 05:05] LABS: Glucose Point of Care 217 mg/dl (65-105)
[2024-09-03 05:05] LABS: Glucose Point of Care 249 mg/dl (65-105)
[2024-09-03 05:05] LABS: Glucose Point of Care 226 mg/dl (65-105)
[2024-09-03 05:06] LABS: Glucose Point of Care 188 mg/dl (65-105)
[2024-09-03] MEDS: CENTRAL LINE FLUSH 10 ML IV PUSH ×3 (05:21→20:13)
[2024-09-03 05:30] LABS: Alveolar/Arterial O2 Gradient 66.5 mmHg; Base Excess ABG -2.9 mEq/l (+/-2.0); Carboxyhemoglobin 0.3 % THb (0-2.0); Fractional Inspired Oxygen 30 %; Methemoglobin ABG 0.1 %THb (0-1.5); Oxygen Content ABG 12.7 %vol (16.0-22.0); Oxygen Saturation ABG 97.5 % (95.0-100.0); Oxyhemoglobin 97.1 % THb (90.0-100.0); PCO2 ABG 38.8 mmHg (35.0-45.0); PO2 ABG 101.8 mmHg (80.0-100.0); PO2 FiO2 Ratio Arterial Blood 3.39 %; Reduced Hemoglobin 2.5 %THb (0-5.0); Total Hemoglobin 9.2 g/dL (12.0-18.0); pH ABG 7.372 (7.350-7.450)
[2024-09-03 05:32] LABS: Hematocrit 28.1 % (37.0-47.0); Hemoglobin 8.4 g/dL (12.0-15.0); Mean Corpuscular HGB Conc 29.9 g/dl (32-36); Mean Corpuscular Hemoglobin 27.5 pg (26-34); Mean Corpuscular Volume 91.8 fl (80-100); Mean Platelet Volume 11.8 fl (7.4-10.4); Platelet Count Result 133 k/mm3 (150-375); Red Blood Count 3.06 M/mm3 (4.2-5.4); Red Cell Distribution Width 20.8 % (11.5-14.5); White Blood Count 11.4 K/mm3 (4.5-10.0)
[2024-09-03 05:32] LABS: Device VENTILATOR; Modified Allen's Test Pass; Site Drawn RIGHT RADIAL
[2024-09-03 05:34] LABS: Arterial Blood Gas PEEP 8 cmH2O; Arterial Blood Gas Vent Mode CMV; Arterial Blood Gas Ventilator rate 18 /MIN
[2024-09-03 05:35] LABS: Arterial Blood Gas Tidal Volume 320 ml
[2024-09-03] MEDS: ACETYLCYSTEINE 20% INHAL SOLN 800 MG/4 ML VIAL 200 MG INHALATION ×4 (05:43→20:02)
[2024-09-03] MEDS: LEVALBUTEROL NEB 1.25 MG/3 ML INHALATION ×4 (05:43→20:03)
[2024-09-03 05:48] LABS: Alanine Aminotransferase 92 U/L (6-35); Albumin Level 3.9 g/dL (3.5-5.1); Alkaline Phosphatase 127 U/L (38-126); Anion Gap 19 mmol/L (4-12); Aspartate Amino Transferase 55 U/L (14-36); Bilirubin,Total 0.5 mg/dL (0.2-1.3); Blood Urea Nitrogen 117 mg/dL (7-17); Calcium 8.9 mg/dL (8.4-10.2); Carbon Dioxide 24 mmol/L (22-30); Chloride 94 mmol/L (98-107); Estimated CRCL calculation 10 ml/min; Estimated Glomerular Filt Rate 10; Glucose 205 mg/dL (65-110); Magnesium 3.2 mg/dL (1.6-2.3); Phosphorus 8.2 mg/dL (2.5-4.5); Potassium 4.4 mmol/L (3.4-5.0); Sodium 137 mmol/L (137-145)
[2024-09-03 06:08] LABS: Glucose Point of Care 174 mg/dl (65-105)
[2024-09-03 07:10] LABS: Glucose Point of Care 167 mg/dl (65-105)
--- NOTE | 2024-09-03 07:19 | WPDHPUPDATE1 ---
History and Physical Update Update Date/Time: 09/03/24 07:19 History and Physical has been reviewed, including an updated exam of the patient. There are NO changes in the patient's condition. Risks, benefits, and alternatives have been discussed and questions answered. Patient agrees to proceed with procedure.
[2024-09-03 07:35] LABS: Vancomycin Random 16.7 ug/mL (10-20)
[2024-09-03] MEDS: ALTEPLASE 2 MG VIAL (CATHFLO) INTRACATH (07:35)
[2024-09-03] MEDS: HEPARIN SODIUM 1,000 UNITS/ML VIAL 6000 UNITS IV PUSH ×2 (07:35→17:46)
[2024-09-03] MEDS: AMIODARONE HCL 200 MG TABLET PO (07:51)
[2024-09-03] MEDS: METOCLOPRAMIDE HCL 10 MG/10 ML SOLN UDC PO ×3 (07:52→20:12)
[2024-09-03] MEDS: ASPIRIN 81 MG CHEWABLE TABLET PO (07:52)
[2024-09-03] MEDS: MINERAL OIL/WHITE PETROLATUM OINTMENT 1 APPLIC EACH EYE ×2 (07:52→20:13)
[2024-09-03] MEDS: MEROPENEM 500 MG/NS 100 ML 500 MG/100 ML BAG 200 MG IVPB (07:58)
[2024-09-03] MEDS: PANTOPRAZOLE SODIUM IV 40 MG VIAL IV PUSH ×2 (07:58→20:12)
[2024-09-03 08:00] LABS: Glucose Point of Care 157 mg/dl (65-105)
[2024-09-03] MEDS: AMIODARONE 150 MG/D5W 100 ML 150 MG/100 ML BAG 600 MG IV CONT (08:41)
[2024-09-03] MEDS: AMIODARONE 360 MG/D5W 200 ML 360 MG/200 ML BAG 33.33 MG IV CONT ×2 (08:43→14:12)
[2024-09-03] MEDS: NOREPINEPHRINE 8 MG/D5W 250 ML 8 MG/250 ML BAG 5.63 MG IV CONT (09:28)
--- NOTE | 2024-09-03 09:34 | WPDANESEPPF ---
Anes - Initial Pre Proc Eval Procedure: Operation Date: 08/31/24 12:00 Proposed Procedures p Percutaneous Endoscopic Gastrostomy - Rl Gonzalez MD Operation Date: 09/02/24 07:30 Proposed Procedures p Insertion Duraflow Permacath Tunneled Dialysis Catheter - Franc Carney DO Operation Date: 09/03/24 11:00 Proposed Procedures p Tracheostomy - Mor Orellana MD Date/Time: 09/03/24 09:34 Surgeon: Jalyn Lindsay MD Pre Op Diagnosis: Sepsis/PNA/NSTEMI Patient Data Age: 84 Gender: F Height: 1.68 m Weight: 83.6 kg Last Vital Signs Temp 99.1 F 09/03/24 08:00 Pulse 80 09/03/24 09:28 Resp 27 H 09/03/24 08:00 BP 98/55 L 09/03/24 09:28 Pulse Ox 97 09/03/24 08:00 O2 Del Method Mechanical Ventilation 09/03/24 08:00 O2 Flow Rate 50 08/17/24 23:50 FiO2 30 09/03/24 08:00 Allergies Allergy/AdvReac Type Severity Reaction Status Date / Time adhesive tape Allergy Unknown Verified 08/15/24 08:51 aripiprazole (From Abilify) Allergy Unknown Verified 08/15/24 08:51 carvedilol Allergy Unknown Verified 08/15/24 08:51 latex Allergy Unknown Verified 08/15/24 08:51 [id number] Reductase Allergy Unknown Verified 08/15/24 08:51 Inhibitor Sulfa (Sulfonamide Allergy Unknown Verified 08/15/24 08:51 Antibiotics) sulfasalazine Allergy Hives Verified 08/15/24 08:51 Sulfonylureas Allergy Unknown Verified 08/15/24 08:51 Home Medications ?Medication ?Instructions ?Recorded ?Confirmed ?Type Lactobacillus acidophilus 100 mg PO DAILY 08/15/24 08/15/24 History (Acidophilus capsule) acetaminophen 325 mg tablet 325 mg PO Q4H PRN pain 08/15/24 08/15/24 History amlodipine 5 mg tablet 5 mg PO DAILY 08/15/24 08/15/24 History arginine-vitamin C-vitamin E oral 9.2 g PO TIDWM 08/15/24 08/15/24 History 4.5 gram-156 mg/9.2 gram powder pkt (Arginaid) aspirin 81 mg capsule 81 mg PO DAILY 08/15/24 08/15/24 History bupropion HCl 300 mg 24 hr tablet, 300 mg PO DAILY 08/15/24 08/15/24 History extended release d-mannose 500 mg capsule (AZO 500 mg PO BID 08/15/24 08/15/24 History D-Mannose) fluticasone propionate 50 1 spray intranasal Q12H PRN nasal 08/15/24 08/15/24 History mcg/actuation nasal congestion spray,suspension furosemide 20 mg tablet 20 mg PO .COMPLEX 08/15/24 08/15/24 History guaifenesin 600 mg tablet, 600 mg PO Q12H 08/15/24 08/15/24 History extended release 12 hr (Mucinex) hydralazine 50 mg tablet 50 mg PO Q12H 08/15/24 08/15/24 History hydrocodone 5 mg-acetaminophen 325 1 tablet PO Q4-6H PRN pain (scale 08/15/24 08/15/24 History mg tablet score 4-6) insulin lispro 100 unit/mL 1 sliding scale dose subcut 08/15/24 08/15/24 History subcutaneous solution (Humalog USEASDIRECTD U-100 Insulin) isosorbide mononitrate 30 mg 30 mg PO DAILY 08/15/24 08/15/24 History tablet,extended release 24 hr krill oil 500 mg capsule 1 mg PO DAILY 08/15/24 08/15/24 History loratadine 10 mg tablet 10 mg PO DAILY 08/15/24 08/15/24 History losartan 25 mg tablet 25 mg PO DAILY 08/15/24 08/15/24 History meclizine 25 mg tablet 25 mg PO QID PRN dizziness 08/15/24 08/15/24 History metoprolol succinate 25 mg 25 mg PO DAILY 08/15/24 08/15/24 History tablet,extended release 24 hr montelukast 10 mg tablet 10 mg PO HS 08/15/24 08/15/24 History multivitamin,si-rzkv-Hy-FA-min 1 tablet PO Q12H 08/15/24 08/15/24 History polyethylene glycol 3350 17 gram 17 g PO DAILY PRN constipation 08/15/24 08/15/24 History oral powder packet (Miralax) potassium chloride 10 mEq 10 meq PO .COMPLEX 08/15/24 08/15/24 History tablet,extended release rosuvastatin 5 mg tablet 5 mg PO HS 08/15/24 08/15/24 History senna-docusate sodium tablet 1 tablet PO DAILY PRN constipation 08/15/24 08/15/24 History Laboratory Tests 09/02/24 09/02/24 09/02/24 08:57 09:38 09:55 WBC RBC Hgb Hct MCV MCH MCHC RDW Plt Count MPV PT INR APTT Puncture Site ABG pH ABG pCO2 ABG pO2 ABG PO2/FiO2 Ratio ABG HCO3 ABG O2 Saturation ABG O2 Content ABG Base Excess A-a Gradient Oxyhemoglobin Carboxyhemoglobin Methemoglobin Reduced Hemoglobin Total Hemoglobin O2 Delivery Device O2 Liters/Min Minute Volume Vent Rate Vent Mode FiO2 Tidal Volume PEEP Peak Inspir Pressure Pressure Support Sodium Potassium Chloride Carbon Dioxide Anion Gap BUN Creatinine Estim Creat Clear Calc Estimated GFR Glucose POC Capillary Glucose 301 H mg/dl 301 H mg/dl (65-105) (65-105) Calcium Phosphorus Magnesium Total Bilirubin AST ALT Alkaline Phosphatase Total Protein Albumin Nasal MRSA (PCR) Random Vancomycin 17.0 ug/mL (10-20) 09/02/24 09/02/24 09/02/24 11:02 12:11 12:59 WBC RBC Hgb Hct MCV MCH MCHC RDW Plt Count MPV PT INR APTT Puncture Site ABG pH ABG pCO2 ABG pO2 ABG PO2/FiO2 Ratio ABG HCO3 ABG O2 Saturation ABG O2 Content ABG Base Excess A-a Gradient Oxyhemoglobin Carboxyhemoglobin Methemoglobin Reduced Hemoglobin Total Hemoglobin O2 Delivery Device O2 Liters/Min Minute Volume Vent Rate Vent Mode FiO2 Tidal Volume PEEP Peak Inspir Pressure Pressure Support Sodium Potassium Chloride Carbon Dioxide Anion Gap BUN Creatinine Estim Creat Clear Calc Estimated GFR Glucose POC Capillary Glucose 234 H mg/dl 193 H mg/dl 173 H mg/dl (65-105) (65-105) (65-105) Calcium Phosphorus Magnesium Total Bilirubin AST ALT Alkaline Phosphatase Total Protein Albumin Nasal MRSA (PCR) Random Vancomycin 09/02/24 09/02/24 09/02/24 13:25 14:02 15:00 WBC RBC Hgb Hct MCV MCH MCHC RDW Plt Count MPV PT 17.0 H Seconds (11.1-14.7) INR 1.4 APTT 26.7 Seconds (22.3-36.8) Puncture Site ABG pH ABG pCO2 ABG pO2 ABG PO2/FiO2 Ratio ABG HCO3 ABG O2 Saturation ABG O2 Content ABG Base Excess A-a Gradient Oxyhemoglobin Carboxyhemoglobin Methemoglobin Reduced Hemoglobin Total Hemoglobin O2 Delivery Device O2 Liters/Min Minute Volume Vent Rate Vent Mode FiO2 Tidal Volume PEEP Peak Inspir Pressure Pressure Support Sodium Potassium Chloride Carbon Dioxide Anion Gap BUN Creatinine Estim Creat Clear Calc Estimated GFR Glucose POC Capillary Glucose 259 H mg/dl 233 H mg/dl (65-105) (65-105) Calcium Phosphorus Magnesium Total Bilirubin AST ALT Alkaline Phosphatase Total Protein Albumin Nasal MRSA (PCR) Random Vancomycin 09/02/24 09/02/24 09/02/24 15:57 17:09 18:01 WBC RBC Hgb Hct MCV MCH MCHC RDW Plt Count MPV PT INR APTT Puncture Site ABG pH ABG pCO2 ABG pO2 ABG PO2/FiO2 Ratio ABG HCO3 ABG O2 Saturation ABG O2 Content ABG Base Excess A-a Gradient Oxyhemoglobin Carboxyhemoglobin Methemoglobin Reduced Hemoglobin Total Hemoglobin O2 Delivery Device O2 Liters/Min Minute Volume Vent Rate Vent Mode FiO2 Tidal Volume PEEP Peak Inspir Pressure Pressure Support Sodium Potassium Chloride Carbon Dioxide Anion Gap BUN Creatinine Estim Creat Clear Calc Estimated GFR Glucose POC Capillary Glucose 220 H mg/dl 215 H mg/dl 225 H mg/dl (65-105) (65-105) (65-105) Calcium Phosphorus Magnesium Total Bilirubin AST ALT Alkaline Phosphatase Total Protein Albumin Nasal MRSA (PCR) Random Vancomycin 09/02/24 09/02/24 09/02/24 18:58 20:01 20:59 WBC RBC Hgb Hct MCV MCH MCHC RDW Plt Count MPV PT INR APTT Puncture Site ABG pH ABG pCO2 ABG pO2 ABG PO2/FiO2 Ratio ABG HCO3 ABG O2 Saturation ABG O2 Content ABG Base Excess A-a Gradient Oxyhemoglobin Carboxyhemoglobin Methemoglobin Reduced Hemoglobin Total Hemoglobin O2 Delivery Device O2 Liters/Min Minute Volume Vent Rate Vent Mode FiO2 Tidal Volume PEEP Peak Inspir Pressure Pressure Support Sodium Potassium Chloride Carbon Dioxide Anion Gap BUN Creatinine Estim Creat Clear Calc Estimated GFR Glucose POC Capillary Glucose 257 H mg/dl 244 H mg/dl 235 H mg/dl (65-105) (65-105) (65-105) Calcium Phosphorus Magnesium Total Bilirubin AST ALT Alkaline Phosphatase Total Protein Albumin Nasal MRSA (PCR) Random Vancomycin 09/02/24 09/02/24 09/02/24 21:57 23:12 23:58 WBC RBC Hgb Hct MCV MCH MCHC RDW Plt Count MPV PT INR APTT Puncture Site ABG pH ABG pCO2 ABG pO2 ABG PO2/FiO2 Ratio ABG HCO3 ABG O2 Saturation ABG O2 Content ABG Base Excess A-a Gradient Oxyhemoglobin Carboxyhemoglobin Methemoglobin Reduced Hemoglobin Total Hemoglobin O2 Delivery Device O2 Liters/Min Minute Volume Vent Rate Vent Mode FiO2 Tidal Volume PEEP Peak Inspir Pressure Pressure Support Sodium Potassium Chloride Carbon Dioxide Anion Gap BUN Creatinine Estim Creat Clear Calc Estimated GFR Glucose POC Capillary Glucose 238 H mg/dl 255 H mg/dl 249 H mg/dl (65-105) (65-105) (65-105) Calcium Phosphorus Magnesium Total Bilirubin AST ALT Alkaline Phosphatase Total Protein Albumin Nasal MRSA (PCR) Random Vancomycin 09/03/24 09/03/24 09/03/24 01:02 01:59 02:55 WBC RBC Hgb Hct MCV MCH MCHC RDW Plt Count MPV PT INR APTT Puncture Site ABG pH ABG pCO2 ABG pO2 ABG PO2/FiO2 Ratio ABG HCO3 ABG O2 Saturation ABG O2 Content ABG Base Excess A-a Gradient Oxyhemoglobin Carboxyhemoglobin Methemoglobin Reduced Hemoglobin Total Hemoglobin O2 Delivery Device O2 Liters/Min Minute Volume Vent Rate Vent Mode FiO2 Tidal Volume PEEP Peak Inspir Pressure Pressure Support Sodium Potassium Chloride Carbon Dioxide Anion Gap BUN Creatinine Estim Creat Clear Calc Estimated GFR Glucose POC Capillary Glucose 253 H mg/dl 249 H mg/dl 226 H mg/dl (65-105) (65-105) (65-105) Calcium Phosphorus Magnesium Total Bilirubin AST ALT Alkaline Phosphatase Total Protein Albumin Nasal MRSA (PCR) Random Vancomycin 09/03/24 09/03/24 09/03/24 04:04 05:00 05:07 WBC RBC Hgb Hct MCV MCH MCHC RDW Plt Count MPV PT INR APTT Puncture Site Right radial ABG pH 7.372 (7.350-7.450) ABG pCO2 38.8 mmHg (35.0-45.0) ABG pO2 101.8 H mmHg (80.0-100.0) ABG PO2/FiO2 Ratio 3.39 % ABG HCO3 22.0 mEq/l (22.0-26.0) ABG O2 Saturation 97.5 % (95.0-100.0) ABG O2 Content 12.7 L %vol (16.0-22.0) ABG Base Excess -2.9 mEq/l (+/-2.0) A-a Gradient 66.5 mmHg Oxyhemoglobin 97.1 % THb (90.0-100.0) Carboxyhemoglobin 0.3 % THb (0-2.0) Methemoglobin 0.1 %THb (0-1.5) Reduced Hemoglobin 2.5 %THb (0-5.0) Total Hemoglobin 9.2 L g/dL (12.0-18.0) O2 Delivery Device Ventilator O2 Liters/Min Not Reportable Minute Volume Not Reportable Vent Rate 18 /MIN Vent Mode Cmv FiO2 30 % Tidal Volume 320 ml PEEP 8 cmH2O Peak Inspir Pressure Not Reportable Pressure Support Not Reportable Sodium Potassium Chloride Carbon Dioxide Anion Gap BUN Creatinine Estim Creat Clear Calc Estimated GFR Glucose POC Capillary Glucose 217 H mg/dl 188 H mg/dl (65-105) (65-105) Calcium Phosphorus Magnesium Total Bilirubin AST ALT Alkaline Phosphatase Total Protein Albumin Nasal MRSA (PCR) Random Vancomycin 09/03/24 09/03/24 09/03/24 05:11 06:04 07:09 WBC 11.4 H K/mm3 (4.5-10.0) RBC 3.06 L M/mm3 (4.2-5.4) Hgb 8.4 L g/dL (12.0-15.0) Hct 28.1 L % (37.0-47.0) MCV 91.8 fl (80-100) MCH 27.5 D pg (26-34) MCHC 29.9 L g/dl (32-36) RDW 20.8 H % (11.5-14.5) Plt Count 133 L k/mm3 (150-375) MPV 11.8 H fl (7.4-10.4) PT INR APTT Puncture Site ABG pH ABG pCO2 ABG pO2 ABG PO2/FiO2 Ratio ABG HCO3 ABG O2 Saturation ABG O2 Content ABG Base Excess A-a Gradient Oxyhemoglobin Carboxyhemoglobin Methemoglobin Reduced Hemoglobin Total Hemoglobin O2 Delivery Device O2 Liters/Min Minute Volume Vent Rate Vent Mode FiO2 Tidal Volume PEEP Peak Inspir Pressure Pressure Support Sodium 137 mmol/L (137-145) Potassium 4.4 mmol/L (3.4-5.0) Chloride 94 L mmol/L (98-107) Carbon Dioxide 24 mmol/L (22-30) Anion Gap 19 H mmol/L (4-12) BUN 117 H D mg/dL (7-17) Creatinine 4.19 H mg/dL (0.7-1.0) Estim Creat Clear Calc 10 ml/min Estimated GFR 10 L (59 - ) Glucose 205 H mg/dL (65-110) POC Capillary Glucose 174 H mg/dl 167 H mg/dl (65-105) (65-105) Calcium 8.9 mg/dL (8.4-10.2) Phosphorus 8.2 H mg/dL (2.5-4.5) Magnesium 3.2 H mg/dL (1.6-2.3) Total Bilirubin 0.5 mg/dL (0.2-1.3) AST 55 H U/L (14-36) ALT 92 H U/L (6-35) Alkaline Phosphatase 127 H U/L (38-126) Total Protein 7.0 g/dL (6.3-8.2) Albumin 3.9 g/dL (3.5-5.1) Nasal MRSA (PCR) Random Vancomycin 16.7 ug/mL (10-20) 09/03/24 09/03/24 07:58 08:23 WBC RBC Hgb Hct MCV MCH MCHC RDW Plt Count MPV PT INR APTT Puncture Site ABG pH ABG pCO2 ABG pO2 ABG PO2/FiO2 Ratio ABG HCO3 ABG O2 Saturation ABG O2 Content ABG Base Excess A-a Gradient Oxyhemoglobin Carboxyhemoglobin Methemoglobin Reduced Hemoglobin Total Hemoglobin O2 Delivery Device O2 Liters/Min Minute Volume Vent Rate Vent Mode FiO2 Tidal Volume PEEP Peak Inspir Pressure Pressure Support Sodium Potassium Chloride Carbon Dioxide Anion Gap BUN Creatinine Estim Creat Clear Calc Estimated GFR Glucose POC Capillary Glucose 157 H mg/dl (65-105) Calcium Phosphorus Magnesium Total Bilirubin AST ALT Alkaline Phosphatase Total Protein Albumin Nasal MRSA (PCR) Pending Random Vancomycin Patient hx anesthesia problems: none Family hx anesthesia problems: none Results Review: All pre-operative results and documents have been reviewed as part of the pre-operative evaluation. [facility] Past Medical History Medical History Recurrent urinary tract infection Fuchs' corneal dystrophy Cancer of kidney suspected kidney cancer being monitored for the last 4 years with recent increase in growth and plans for possible radiation therapy Coronary artery disease patient of Dr. Addy Norwood at [facility] Type 2 diabetes mellitus Congestive heart failure Hypertension Surgical History Surgical History History of appendectomy History of cholecystectomy History of ventral hernia repair with mesh History of arthroplasty of right knee History of suprapubic catheter History of coronary artery stent placement (2018) Social History Social History Social History: Healthcare power of regulatory attorney: Baiclio Salas, son. Code status: Full code. Smoking status: Never smoker Alcohol intake: never Substance use: never Spiritual care concerns: No Anes - Eval Final PreProcedure Day of Procedure 09/03/24 09:34 Patient weight: overweight Lungs: normal air movement and decreased breath sounds Neurological: other (sedated from ICU. ) Last oral intake: >/= 8 hours ASA classification: IV Emergent: no Anesthetic plan: proceed Anesthesia type and monitoring: general ETT and standard monitoring Results Review: All pre-operative results and documents have been reviewed as part of the pre-operative evaluation. Complicated pt reviewed w Dr Orellana and ICU attending by phone. Pt critically ill, HD catheter malfunctioning so HD has not happened yet. ICU attending feels pt stable and euvolemic for trach at this time, not volume overloaded w nml LVEF. Informed Consent: The patient's anesthetic plan and its attendant risks and benefits were discussed with the patient/family/POA. Questions were solicited and answers provided to the satisfaction of the patient/family/POA.
--- NOTE | 2024-09-03 09:48 | P.PNINT_ITS ---
Progress Note: A&P Assessment and Plan (1) DVT (deep venous thrombosis): Qualifiers: DVT location: lower extremity Affected thrombotic vein of extremity: tibial Chronicity: acute Laterality: bilateral Qualified Code(s): I82.443 - Acute embolism and thrombosis of tibial vein, bilateral Code(s): I82.409 - Acute embolism and thrombosis of unspecified deep veins of unspecified lower extremity Status: Resolved Assessment and Plan: 08/20: Bilateral venous Dopplers obtained due to swelling in the legs. Ultrasound showed Bilateral [id number] deep venous thrombosis in the left and right posterior tibial veins. Patient was initially started on heparin infusion which was discontinued on 08/28 due to drop in hemoglobin 08/28/2024: Patient dropped hemoglobin to 6.9, on heparin infusion for DVTs bilaterally -have asked the bedside RN to hold heparin infusion -appreciate surgery evaluation and recommendations, will hold off IVC filter placement, repeat venous Dopplers on 08/30/2024 negative for bilateral lower extremity DVT. -continue prophylactic heparin SQ 08/30: Bilateral lower extremity venous Dopplers : Negative bilateral lower extremity venous US. No deep vein thrombosis. (2) Anemia: Qualifiers: Anemia type: due to chronic kidney disease Chronic kidney disease stage: stage 3 (moderate) Chronic kidney disease stage 3 subtype: unspecified whether 3a or 3b Qualified Code(s): N18.30 - Chronic kidney disease, stage 3 unspecified; D63.1 - Anemia in chronic kidney disease Code(s): D64.9 - Anemia, unspecified Status: Acute Assessment and Plan: 08/28: Patient dropped her hemoglobin to 6.9 this morning -patient is on heparin infusion for her bilateral lower extremity DVTs -have asked the bedside RN to hold heparin infusion -08/28: Transfused 1 unit of packed RBCs -hemoglobin stable this morning -continue subQ heparin (prophylactic dose) (3) Acute respiratory failure with hypoxia: Code(s): J96.01 - Acute respiratory failure with hypoxia Status: Acute Assessment and Plan: Acute Respiratory failure secondary to combination of pneumonia and congestive heart failure 08/18: Intubated Repeat CT chest 08/18 MPRESSION: 1. Significant interval progression in an lobar pneumonia along with increasing small bilateral pleural effusions. Patient has elevated procalcitonin and BNP she is positive on intake output balance but her echocardiogram shows normal biventricular size and systolic function Continue Bronchodilators 08/16/2024: Blood cultures negative x2. 08/21/2024: Sputum culture growing MRSA Urine Legionella antigen, mycoplasma pneumonia antibody and urine pneumococcal antigen negative Continue Dialysis to remove fluid, discussed with Nephrology Status post vancomycin cefepime azithromycin (antibiotics ended on 08/27/2024) Patient was off of sedation for 2 days and became tachypneic with asynchronous with ventilator. Patient started on propofol infusion will discontinue, will give sedation vacation after dialysis Weaning trial will depend on improvement in patient's encephalopathy -Chest x-ray and ABGs reviewed -Currently on PEEP of 8 and an FiO2 of 50% FiO2 %, wean FiO2 as tolerated -patient has significant amount of secretions which are thick, will add Mucomyst and Pulmozyme nebulizer -chest x-ray continues shows bilateral infiltrates for despite fluid removal, patient continues to have thick secretions, 08/29: Restarted vancomycin and meropenem for a total of 7 days 08/30: Consult has been placed for ENT for tracheostomy and GI for PEG tube placement 08/31: PEG tube to be placed today Discussed with Dr. Orellana, tracheostomy scheduled for 09/03/202409/01: Patient tried on ASV mode of ventilation and spontaneous breathing, did not tolerate as she was tachypneic with respirations in the upper 30s (4) Congestive heart failure: Qualifiers: Heart failure type: unspecified Heart failure chronicity: acute on chronic Qualified Code(s): I50.9 - Heart failure, unspecified Code(s): I50.9 - Heart failure, unspecified Status: Acute Assessment and Plan: See above (5) Non-ST elevation myocardial infarction (NSTEMI): Code(s): I21.4 - Non-ST elevation (NSTEMI) myocardial infarction Status: Acute Assessment and Plan: History of coronary disease status post PCI in the past now presented with elevated troponin. -Cardiology following -Other heart medications on hold due to low blood pressure -Statin on hold due to elevated LFTs. -No plan for cardiac catheterization at this time. -continue aspirin 81 mg (6) Coronary artery disease: Code(s): I25.10 - Atherosclerotic heart disease of [place] coronary artery without angina pectoris Status: Acute Assessment and Plan: See above (7) Type 2 diabetes mellitus: Code(s): E11.9 - Type 2 diabetes mellitus without complications Status: Chronic Assessment and Plan: Sliding scale insulin 08/29: Blood sugars in the 400s despite being Lantus 50 units q.12 hours. Patient was started on insulin infusion on Lantus was discontinued -continue insulin infusion, will transition to long-acting insulin and sliding scale insulin when she gets all her procedures as she has to be NPO for the procedure Off steroids (8) Renal failure: Qualifiers: Renal failure chronicity: acute on chronic Acute renal failure type: unspecified Chronic kidney disease stage: stage 3 (moderate) Chronic kidney disease stage 3 subtype: unspecified whether 3a or 3b Qualified Code(s): N17.9 - Acute kidney failure, unspecified; N18.30 - Chronic kidney disease, stage 3 unspecified Code(s): N19 - Unspecified kidney failure Status: Acute Assessment and Plan: Patient presented with creatinine of 1.5. Baseline creatinine unknown She has suprapubic catheter. As per son patient has had a renal tumor which was being monitored and plan was to start radiation therapy by her urology CT scan showed Subtle 2.5 cm mass at the upper pole of the right kidney consistent with provided history of renal tumor. Calcification is at the bilateral kidneys which appear linear and likely atherosclerotic although could not exclude nonobstructing nephrolithiasis. No hydronephrosis in either kidney. Diuretics were held and patient was given albumin bolus Creatinine continue to increase with poor urine output. After discussion with patient's family and machine operator packaging decision was made to initiate dialysis. 08/19 dialysis catheter was placed and patient was dialyzed 1 L fluid was removed Monitor urine output electrolytes and creatinine Dialysis per Nephrology -09/02: Tunneled dialysis placed -09/03: Tunnel dialysis catheter was nonfunctioning this morning, alteplase has been dwelled in the catheter (9) Pneumonia: Qualifiers: Laterality: bilateral Lung location: lower lobe of lung Pneumonia type: due to methicillin-resistant Staphylococcus aureus (MRSA) Qualified Code(s): J15.212 - Pneumonia due to Methicillin resistant Staphylococcus aureus Code(s): J18.9 - Pneumonia, unspecified organism Status: Acute Assessment and Plan: See above (10) Kidney mass: Code(s): N28.89 - Other specified disorders of kidney and ureter Status: Acute Assessment and Plan: Patient's son reports history of kidney mass which is being monitored as it was too big to be removed without total nephrectomy. He states that patient was supposed to get radiation therapy in a month or so before she fractured her ankle. CT scan shows 2.5 cm renal mass on the right side and no hydronephrosis. No intervention at this time (11) Septic shock: Code(s): A41.9 - Sepsis, unspecified organism; R65.21 - Severe sepsis with septic shock Status: Acute Assessment and Plan: Patient requires Levophed mainly when she is receiving dialysis -continue antibiotics as above (12) Ileus: Code(s): K56.7 - Ileus, unspecified Status: Acute Assessment and Plan: RESOLVED Patient has significant output from her OG tube. She has not been tolerating tube feeds. She is on Reglan Bowel sounds are decreased. KUB does not show anything significant abnormal 08/23 Dobbhoff placed tube feeds resume 08/24 will advance tube feeds to 40 mL/hour -patient tolerating tube feeds with minimal residual, positive bowel movement 08/31: PEG tube inserted by GI (13) Atrial fibrillation with RVR: Code(s): I48.91 - Unspecified atrial fibrillation Status: Acute Assessment and Plan: Patient went into AFib with RVR after hemodialysis.. She was started on ami odarone infusion. She has converted to sinus bradycardia, amiodarone was discontinued on 08/26/2024 Currently off heparin infusion due to anemia 08/30: Patient went to AFib RVR during dialysis, with rates in the 140s to 150s, started patient on amiodarone bolus and infusion, will let the infusion complete -continue prophylactic heparin SQ -patient was into AFib RVR with dialysis, also requires norepinephrine during dialysis. Patient has been started couple of times on amiodarone infusion and converts to sinus rhythm after dialysis and amiodarone drip has to be discontinued. -09/03 patient flipped back into AFib RVR and had to be restarted on amiodarone infusion (14) Encephalopathy: Code(s): G93.40 - Encephalopathy, unspecified Status: Acute Assessment and Plan: Patient was on Versed and fentanyl infusion for many days. She also has renal failure which may lead to accumulation -started on propofol infusion -off propofol patient becomes tachypneic and dyssynchronous with the ventilator leading her to desaturate -08/26/2024: CT scan of the brain No intracranial hemorrhage, mass, or acute infarct.Atrophy and chronic white matter changes. -ammonia levels within normal limits -08/29: propofol has been switched to Precedex, to allow patient to wake up -continue to wean Precedex. -09/01: CT brain with no acute intracranial process, age-related changes, unch anged bilateral otomastoiditis effusion Plan DVT prophylaxis -heparin subQ Stress ulcer prophylaxis - Protonix to q.12 hours Nutrition - tube feeds currently on hold tracheostomy tube placement, will restart tube feeds after procedure Code Status - Full Code Total Critical Care Time - 33 minutes 09/03: Discussed with Bacilio, he is aware that the patient is in the OR for tracheostomy, will possibly get dialyzed later this afternoon 09/02: Discussed with patient's sons Bacilio and Geoffrey. Updated with patient's condition and plan of care. The consented to tracheostomy to be done on 09/03 09/01: Discussed with patient's is Luke flynn and Geoffrey, updated them with patient's condition and plan of care. They are aware that she got a PEG tube placed on 08/31, scheduled for tunneled dialysis catheter on 09/02 and tracheostomy on 09/03. Care coordination has met with them regarding LTAC facilities, I answered all the questions 08/28: Had a long discussion with both Luke flynn and Geoffrey. I updated them with patient's condition plan of care. They understand that the patient has multiple medical problems but requested that she gets a tracheostomy and PEG tube placement as they want to give her a complete chance to recover Due to a high probability of clinically significant, life threatening d eterioration, the patient required my highest level of preparedness to intervene emergently and I personally spent this critical care time directly and personally managing the patient. This critical care time included obtaining a history; examining the patient; pulse oximetry; ordering and review of studies; arranging urgent treatment with development of a management plan; evaluation of patient's response to treatment; frequent reassessment; and discussions with other providers. It was exclusive of separately billable procedures and treating other patients and teaching time. Please see Assessment and Plan section and the rest of the note for further information on patient assessment and treatment. This dictation may have been done utilizing a voice recognition system. Attempts have been made to correct errors. However, there may be uncorrected grammatical, spelling, and recognitions errors present. Subjective Date/time seen: 09/03/24 09:48 Interval history: 08/18: Intubated 08/19 temporary dialysis catheter placed patient was dialyzed 08/21 vent into AFib with RVR. Converted to sinus Steve with amiodarone 08/23 Dobbhoff tube inserted 08/28: Transfuse 1 unit of PRBC 08/31: PEG tube placed 09/02: Tunneled dialysis catheter 09/03/2024: Patient seen examined the ICU, remains intubated on CMV mode of ventilation, peep of 8, 30% FiO2. Patient is sedated with Precedex infusion, patient opens her eyes but does not follow simple commands. She does withdraw t o pain stimuli. Re-started amiodarone infusion as patient flipped into atrial fibrillation RVR this morning. Remains on norepinephrine. Anuric. Afebrile through the night. Secretions have improved, hemoglobin is stable. Tunnel dialysis catheter was not function in this morning nor was the temp pre dialysis catheter in the right IJ Review of Systems Review of Systems: ROS unobtainable: Yes unobtainable due to endotracheal tube, unobtainable due to medical condition and unobtainable due to mental status Exam Narrative: General: Pt is intubated and on mechanical ventilation HEENT: Pupils equal and reactive, sclera is clear, ETT in place. skin puncture wound at the site of ETAD Lungs/Chest: Trachea central Coarse BS B/L, bilateral rales, no wheezing, adequate air entry Cardiac: RRR. Normal S1 S2. No murmurs Abdomen: Soft, nontender, nondistended, hypoactive bowel sounds Extremities: Bilateral pitting edema, palpable pedal pulse : Butt in place Neurologic: Currently intubated, on Precedex infusion, open her eyes, does not follows simple commands. She does withdraw to pain stimulus. has a cough and a gag reflex Objective Data Vital Signs Vital Signs: Vital Signs - 24 hr 09/02/24 10:00 09/02/24 10:00 09/02/24 10:00 Temperature 98.7 F Pulse Rate 74 74 74 Respiratory Rate 29 H Blood Pressure 95/53 L 95/53 L Pulse Oximetry 97 Oxygen Delivery Fraction of Inspired Oxygen 09/02/24 10:30 09/02/24 10:39 09/02/24 10:47 Temperature 99.8 F H Pulse Rate 72 72 72 Respiratory Rate 28 H Blood Pressure 91/53 L 89/55 L Pulse Oximetry 100 100 Oxygen Delivery Mechanical Ventilation Fraction of Inspired Oxygen 30 09/02/24 11:00 09/02/24 11:03 09/02/24 12:00 Temperature 99.1 F Pulse Rate 72 72 74 Respiratory Rate 32 H Blood Pressure 99/57 L 99/57 L 97/55 L Pulse Oximetry 100 Oxygen Delivery Fraction of Inspired Oxygen 09/02/24 12:00 09/02/24 12:00 09/02/24 12:00 Temperature 99.9 F H Pulse Rate 74 87 74 Respiratory Rate 31 H 19 Blood Pressure 96/54 L Pulse Oximetry 99 97 Oxygen Delivery Mechanical Ventilation Fraction of Inspired Oxygen 30 09/02/24 12:00 09/02/24 13:00 09/02/24 13:01 Temperature 100.0 F H Pulse Rate 88 87 Respiratory Rate 22 H Blood Pressure 95/64 L 95/64 L Pulse Oximetry 97 Oxygen Delivery Fraction of Inspired Oxygen 30 09/02/24 13:15 09/02/24 13:30 09/02/24 13:33 Temperature Pulse Rate 81 87 87 Respiratory Rate Blood Pressure 111/65 104/57 L Pulse Oximetry 97 Oxygen Delivery Mechanical Ventilation Fraction of Inspired Oxygen 30 09/02/24 13:33 09/02/24 13:44 09/02/24 13:45 Temperature Pulse Rate 87 92 90 Respiratory Rate 19 23 H Blood Pressure 119/70 Pulse Oximetry Oxygen Delivery Fraction of Inspired Oxygen 09/02/24 14:00 09/02/24 14:00 09/02/24 14:00 Temperature 99.8 F H Pulse Rate 84 84 85 Respiratory Rate 28 H Blood Pressure 92/53 L 92/53 L Pulse Oximetry 97 Oxygen Delivery Fraction of Inspired Oxygen 09/02/24 15:01 09/02/24 15:15 09/02/24 15:30 Temperature Pulse Rate 77 78 82 Respiratory Rate Blood Pressure 99/56 L 98/55 L 122/71 Pulse Oximetry Oxygen Delivery Fraction of Inspired Oxygen 09/02/24 15:45 09/02/24 16:00 09/02/24 16:00 Temperature 99.3 F Pulse Rate 88 81 81 Respiratory Rate 22 H Blood Pressure 123/72 106/62 106/62 Pulse Oximetry 95 Oxygen Delivery Fraction of Inspired Oxygen 09/02/24 16:00 09/02/24 16:00 09/02/24 16:00 Temperature Pulse Rate 81 83 Respiratory Rate 22 H Blood Pressure Pulse Oximetry 98 Oxygen Delivery Mechanical Ventilation Fraction of Inspired Oxygen 30 30 09/02/24 16:47 09/02/24 17:10 09/02/24 17:25 Temperature Pulse Rate 77 75 76 Respiratory Rate Blood Pressure 80/51 L 92/53 L Pulse Oximetry 97 Oxygen Delivery Mechanical Ventilation Fraction of Inspired Oxygen 30 09/02/24 17:46 09/02/24 18:00 09/02/24 18:00 Temperature Pulse Rate 75 75 75 Respiratory Rate 26 H Blood Pressure 93/55 L 93/55 L Pulse Oximetry 98 Oxygen Delivery Fraction of Inspired Oxygen 09/02/24 18:02 09/02/24 19:30 09/02/24 20:00 Temperature Pulse Rate 75 74 Respiratory Rate Blood Pressure 93/55 L 85/50 L Pulse Oximetry 97 Oxygen Delivery Mechanical Ventilation Fraction of Inspired Oxygen 30 09/02/24 20:00 09/02/24 20:00 09/02/24 20:00 Temperature 99.1 F Pulse Rate 74 74 Respiratory Rate 26 H Blood Pressure 91/51 L Pulse Oximetry 98 Oxygen Delivery Fraction of Inspired Oxygen 30 09/02/24 20:00 09/02/24 20:45 09/02/24 20:51 Temperature Pulse Rate 74 76 76 Respiratory Rate 28 H Blood Pressure 91/51 L Pulse Oximetry 98 Oxygen Delivery Mechanical Ventilation Fraction of Inspired Oxygen 30 09/02/24 21:02 09/02/24 22:00 09/02/24 22:00 Temperature Pulse Rate 80 84 84 Respiratory Rate 27 H Blood Pressure 104/60 Pulse Oximetry Oxygen Delivery Fraction of Inspired Oxygen 09/02/24 22:00 09/02/24 23:21 09/03/24 00:00 Temperature Pulse Rate 84 85 89 Respiratory Rate 27 H Blood Pressure 104/60 102/58 L Pulse Oximetry 97 97 Oxygen Delivery Mechanical Ventilation Fraction of Inspired Oxygen 30 09/03/24 00:00 09/03/24 00:00 09/03/24 00:00 Temperature 98.7 F Pulse Rate 89 89 Respiratory Rate 27 H Blood Pressure 102/58 L Pulse Oximetry 97 97 Oxygen Delivery Mechanical Ventilation Fraction of Inspired Oxygen 30 09/03/24 00:00 09/03/24 02:00 09/03/24 02:00 Temperature Pulse Rate 81 81 Respiratory Rate Blood Pressure 104/59 L Pulse Oximetry Oxygen Delivery Fraction of Inspired Oxygen 30 09/03/24 02:00 09/03/24 02:10 09/03/24 02:10 Temperature Pulse Rate 81 81 81 Respiratory Rate 27 H 28 H Blood Pressure 104/59 L Pulse Oximetry 99 99 Oxygen Delivery Mechanical Ventilation Fraction of Inspired Oxygen 30 09/03/24 02:30 09/03/24 04:00 09/03/24 04:00 Temperature Pulse Rate 80 82 82 Respiratory Rate 28 H Blood Pressure 114/67 Pulse Oximetry Oxygen Delivery Fraction of Inspired Oxygen 09/03/24 04:00 09/03/24 04:00 09/03/24 04:00 Temperature 99.5 F Pulse Rate 82 Respiratory Rate 23 H Blood Pressure 114/67 Pulse Oximetry 98 98 Oxygen Delivery Mechanical Ventilation Fraction of Inspired Oxygen 30 30 09/03/24 04:45 09/03/24 05:17 09/03/24 06:00 Temperature Pulse Rate 80 80 80 Respiratory Rate Blood Pressure 104/58 L 112/67 Pulse Oximetry 99 Oxygen Delivery Mechanical Ventilation Fraction of Inspired Oxygen 30 09/03/24 06:00 09/03/24 06:00 09/03/24 06:15 Temperature 99.1 F Pulse Rate 80 80 80 Respiratory Rate 24 H 26 H Blood Pressure 112/67 103/55 L Pulse Oximetry 98 98 Oxygen Delivery Fraction of Inspired Oxygen 09/03/24 06:26 09/03/24 06:26 09/03/24 06:48 Temperature Pulse Rate 80 80 Respiratory Rate Blood Pressure 107/64 108/61 Pulse Oximetry Oxygen Delivery Fraction of Inspired Oxygen 30 09/03/24 06:49 09/03/24 07:37 09/03/24 07:37 Temperature Pulse Rate 81 81 81 Respiratory Rate 23 H Blood Pressure 91/50 L Pulse Oximetry 97 Oxygen Delivery Mechanical Ventilation Fraction of Inspired Oxygen 30 09/03/24 07:51 09/03/24 07:58 09/03/24 08:00 Temperature Pulse Rate 80 85 87 Respiratory Rate 24 H Blood Pressure 112/67 Pulse Oximetry Oxygen Delivery Fraction of Inspired Oxygen 09/03/24 08:00 09/03/24 08:00 09/03/24 08:00 Temperature 99.1 F Pulse Rate 85 86 Respiratory Rate 27 H Blood Pressure 112/67 Pulse Oximetry 97 97 Oxygen Delivery Mechanical Ventilation Fraction of Inspired Oxygen 30 09/03/24 08:00 09/03/24 08:41 09/03/24 08:43 Temperature Pulse Rate 126 H 137 H Respiratory Rate Blood Pressure 116/87 116/87 Pulse Oximetry Oxygen Delivery Fraction of Inspired Oxygen 30 09/03/24 09:04 09/03/24 09:28 Temperature Pulse Rate 80 80 Respiratory Rate Blood Pressure 98/55 L 98/55 L Pulse Oximetry Oxygen Delivery Fraction of Inspired Oxygen Intake/Output Intake/Output: Intake & Output 08/31/24 09/01/24 09/02/24 09/03/24 23:59 23:59 23:59 23:59 Intake Total 1288.4 1095.8 1652.2 545.1 Output Total 3545 15 20 Balance 1288.4 -2449.2 1637.2 525.1 Meds/Results Medications: Active Medications Generic Name Dose Route Start Last Admin Trade Name Freq PRN Reason Stop Dose Admin Acetaminophen 650 mg 08/18/24 21:48 08/28/24 01:10 Acetaminophen Elixir 325 Mg/10.15 Ml Udc PO 650 mg Q4H PRN Administration Mild Pain (1-3) or Fever Acetylcysteine 200 mg 08/28/24 08:00 09/03/24 07:42 Acetylcysteine 20% Inhal Soln 800 Mg/4 Ml Vial INHALATION 200 mg Q6HRT TEMI Administration Aspirin 81 mg 09/02/24 08:00 09/03/24 07:52 Aspirin 81 Mg Chewable Tablet PO 81 mg DAILY@0800 TEMI Administration Dextrose 12.5 gm 08/29/24 15:45 Dextrose 50% 25 Gm/50 Ml Syringe IV PUSH PRN PRN Hypoglycemia Protocol Epoetin Oliver-epbx 10,000 units 09/03/24 19:33 Epoetin Oliver-Epbx 10,000 Units/Ml Vial IV PUSH 09/03/24 19:34 ONCE ONE Glucagon 1 mg 08/29/24 15:45 Glucagon For Inj 1 Mg Vial IM PRN PRN Hypoglycemia Protocol Glucose 15 gm 08/29/24 15:45 Glucose Oral Gel 15 Gm Of Glucse In 37.5 Gm Tube PO PRN PRN Hypoglycemia Protocol Heparin Sodium (Porcine) 5,000 units 08/29/24 07:45 09/02/24 13:05 Heparin Sodium 5,000 Units/Ml Vial SUB-Q 5,000 units Q8HR TEMI Administration Albumin Human 50 mls @ 999 mls/hr 08/21/24 06:28 Albutein IVPB 09/20/24 06:27 Q10M PRN HYPOTENSION Meropenem 500 mg in 100 mls @ 200 mls/hr 08/29/24 08:00 09/03/24 08:42 IVPB 09/04/24 08:29 Infused Q24H TEMI Infusion Insulin Human Regular 100 100 mls @ 0 mls/hr 08/29/24 16:00 09/03/24 09:29 units/ Sodium Chloride IV CONT 0 units/hr .Q0M TEMI 0 mls/hr Titration Protocol 0 UNITS/HR Dextrose 1,000 mls @ 100 mls/hr 08/29/24 15:45 Dextrose 5% 1,000 Ml IVPB PRN PRN Hypoglycemia Protocol Norepinephrine Bitartrate 8 mg in 250 mls @ 5.625 mls/hr 08/30/24 11:10 09/03/24 09:28 Levophed 8 Mg/D5w 250 Ml IV CONT 3 mcg/min .Q24H TEMI 5.63 mls/hr Administration Protocol 3 MCG/MIN Amiodarone HCl/Dextrose 360 mg in 200 mls @ 33.333 mls/hr 09/03/24 08:50 09/03/24 08:43 Nexterone 360 Mg/D5w 200 Ml IV CONT 09/03/24 14:49 1 mg/min .Q6H ONE 33.33 mls/hr Administration Protocol 1 MG/MIN Amiodarone HCl/Dextrose 360 mg in 200 mls @ 16.667 mls/hr 09/03/24 14:50 Nexterone 360 Mg/D5w 200 Ml IV CONT 09/04/24 14:49 .Q12H TEMI Protocol 0.5 MG/MIN Vancomycin HCl 750 mg in 250 mls @ 250 mls/hr 09/03/24 20:00 Vancomycin 750 Mg/Ns 250 Ml IVPB 09/03/24 20:59 ONCE ONE Insulin Aspart 4 - 8 units 08/20/24 21:05 08/29/24 12:41 Insulin Aspart (*Bkc) 100 Units/Ml SUB-Q 8 units Q4HR TEMI Administration Protocol Insulin Glargine 50 units 08/29/24 09:00 08/29/24 08:22 Insulin Glargine (*Bkc) 100 Units/Ml SUB-Q 50 units Q12H TEMI Administration Ipratropium [place] 0.5 mg 08/29/24 12:22 08/29/24 12:20 Ipratropium Br 0.02% Inh Soln 0.5 Mg/2.5 Ml Vial INHALATION 0.5 mg Q6HRT PRN Administration Wheezing Levalbuterol HCl 1.25 mg 08/29/24 14:00 09/03/24 07:41 Levalbuterol Neb 1.25 Mg/3 Ml INHALATION 1.25 mg Q6HRT TEMI Administration Levalbuterol HCl 1.25 mg 08/29/24 12:22 08/29/24 12:20 Levalbuterol Neb 1.25 Mg/3 Ml INHALATION 1.25 mg Q6HRT PRN Administration Wheezing Metoclopramide HCl 10 mg 08/23/24 08:00 09/03/24 07:52 Metoclopramide Hcl 10 Mg/10 Ml Soln Udc PO 10 mg Q6H TEMI Administration Multi-Ingred Cream/Lotion/Oil/Oint 1 applic 08/18/24 09:00 09/03/24 07:52 Mineral Oil/White Petrolatum Ointment EACH EYE 1 applic Q12HR TEMI Administration Neomycin/Polymyxin/Bacitracin 1 applic 09/02/24 12:25 09/03/24 00:33 Neomycin/Polymyxin/Bacitracin Ointment 15 Gm Tube TOPICAL 1 applic Q12H TEMI Administration Pantoprazole Sodium 40 mg 08/28/24 21:00 09/03/24 07:58 Pantoprazole Sodium Iv 40 Mg Vial IV PUSH 40 mg Q12HR TEMI Administration Polyethylene Glycol 17 gm 08/15/24 22:20 08/28/24 08:19 Polyethylene Glycol 3350 17 Gm Powd.Pack PO 17 gm DAILY PRN Administration constipation Sodium Chloride 10 ml 08/19/24 22:00 09/03/24 05:21 Central Line Flush IV PUSH 10 ml Q8HR TEMI Administration Sodium Chloride 20 ml 08/19/24 18:43 Central Line Flush IV PUSH PRN PRN after blood draws Vancomycin HCl 1 each 08/30/24 06:14 Vancomycin For Hemodialysis IVPB 09/04/24 23:59 PRN PRN Vancomycin Protocol Radiology Results: ITS Impressions Chest CTA 08/15/24 11:11 IMPRESSION: No pulmonary embolus. No thoracic aortic dissection. Right upper lobe infiltrate with patchy bilateral airspace disease, likely i nflammatory/congestive rather than infectious. Small bilateral pleural effusions with adjacent atelectasis. Renal Ultrasound 08/19/24 14:10 IMPRESSION: No hydronephrosis or renal calculi. Findings suggesting medical renal disease. Findings within the upper pole of the right kidney consistent with patient's history, as detailed above. Chest/Abdomen/Pelvis CT 08/23/24 09:58 IMPRESSION: CHEST: 1. Bilateral pneumonia which is slightly decreased compared to previous study. Bilateral pleural effusion more on the right side. ABDOMEN/PELVIS: 1. No evidence of appendicitis, diverticulitis or intestinal obstruction. 2. Bilateral tiny kidney stones. 3. Hepatomegaly. 4. No evidence of ileus seen. ADDENDUM: 08/23/24 1042 Possibility of mass in the right kidney upper pole cannot be excluded. Abdomen X-Ray 08/23/24 16:53 IMPRESSION: 1. Dobbhoff type nasoenteric feeding tube with distal tip projecting over the gastric fundus. Venous Doppler Study 08/30/24 15:18 IMPRESSION: Negative bilateral lower extremity venous US. No deep vein thrombosis. Head CT 09/01/24 10:03 IMPRESSION: 1. No acute intracranial process. 2. Age-related changes including moderate diffuse volume loss and moderate scattered white matter attenuation consistent with chronic small vessel ischemic disease. 3. Unchanged bilateral otomastoiditis effusions. Chest X-Ray 09/03/24 06:28 Impression: Moderate pulmonary edema pattern, as above, with small bilateral pleural effusions. Correlate clinically for pneumonia. Support tubes, as above. Labs Labs: Laboratory Results - last 24 hr 09/02/24 09/02/24 09/02/24 08:57 09:38 09:55 WBC RBC Hgb Hct MCV MCH MCHC RDW Plt Count MPV PT INR APTT Puncture Site ABG pH ABG pCO2 ABG pO2 ABG PO2/FiO2 Ratio ABG HCO3 ABG O2 Saturation ABG O2 Content ABG Base Excess A-a Gradient Oxyhemoglobin Carboxyhemoglobin Methemoglobin Reduced Hemoglobin Total Hemoglobin O2 Delivery Device O2 Liters/Min Minute Volume Vent Rate Vent Mode FiO2 Tidal Volume PEEP Peak Inspir Pressure Pressure Support Sodium Potassium Chloride Carbon Dioxide Anion Gap BUN Creatinine Estim Creat Clear Calc Estimated GFR Glucose POC Capillary Glucose 301 H 301 H Calcium Phosphorus Magnesium Total Bilirubin AST ALT Alkaline Phosphatase Total Protein Albumin Random Vancomycin 17.0 09/02/24 09/02/24 09/02/24 11:02 12:11 12:59 WBC RBC Hgb Hct MCV MCH MCHC RDW Plt Count MPV PT INR APTT Puncture Site ABG pH ABG pCO2 ABG pO2 ABG PO2/FiO2 Ratio ABG HCO3 ABG O2 Saturation ABG O2 Content ABG Base Excess A-a Gradient Oxyhemoglobin Carboxyhemoglobin Methemoglobin Reduced Hemoglobin Total Hemoglobin O2 Delivery Device O2 Liters/Min Minute Volume Vent Rate Vent Mode FiO2 Tidal Volume PEEP Peak Inspir Pressure Pressure Support Sodium Potassium Chloride Carbon Dioxide Anion Gap BUN Creatinine Estim Creat Clear Calc Estimated GFR Glucose POC Capillary Glucose 234 H 193 H 173 H Calcium Phosphorus Magnesium Total Bilirubin AST ALT Alkaline Phosphatase Total Protein Albumin Random Vancomycin 09/02/24 09/02/24 09/02/24 13:25 14:02 15:00 WBC RBC Hgb Hct MCV MCH MCHC RDW Plt Count MPV PT 17.0 H INR 1.4 APTT 26.7 Puncture Site ABG pH ABG pCO2 ABG pO2 ABG PO2/FiO2 Ratio ABG HCO3 ABG O2 Saturation ABG O2 Content ABG Base Excess A-a Gradient Oxyhemoglobin Carboxyhemoglobin Methemoglobin Reduced Hemoglobin Total Hemoglobin O2 Delivery Device O2 Liters/Min Minute Volume Vent Rate Vent Mode FiO2 Tidal Volume PEEP Peak Inspir Pressure Pressure Support Sodium Potassium Chloride Carbon Dioxide Anion Gap BUN Creatinine Estim Creat Clear Calc Estimated GFR Glucose POC Capillary Glucose 259 H 233 H Calcium Phosphorus Magnesium Total Bilirubin AST ALT Alkaline Phosphatase Total Protein Albumin Random Vancomycin 09/02/24 09/02/24 09/02/24 15:57 17:09 18:01 WBC RBC Hgb Hct MCV MCH MCHC RDW Plt Count MPV PT INR APTT Puncture Site ABG pH ABG pCO2 ABG pO2 ABG PO2/FiO2 Ratio ABG HCO3 ABG O2 Saturation ABG O2 Content ABG Base Excess A-a Gradient Oxyhemoglobin Carboxyhemoglobin Methemoglobin Reduced Hemoglobin Total Hemoglobin O2 Delivery Device O2 Liters/Min Minute Volume Vent Rate Vent Mode FiO2 Tidal Volume PEEP Peak Inspir Pressure Pressure Support Sodium Potassium Chloride Carbon Dioxide Anion Gap BUN Creatinine Estim Creat Clear Calc Estimated GFR Glucose POC Capillary Glucose 220 H 215 H 225 H Calcium Phosphorus Magnesium Total Bilirubin AST ALT Alkaline Phosphatase Total Protein Albumin Random Vancomycin 09/02/24 09/02/24 09/02/24 18:58 20:01 20:59 WBC RBC Hgb Hct MCV MCH MCHC RDW Plt Count MPV PT INR APTT Puncture Site ABG pH ABG pCO2 ABG pO2 ABG PO2/FiO2 Ratio ABG HCO3 ABG O2 Saturation ABG O2 Content ABG Base Excess A-a Gradient Oxyhemoglobin Carboxyhemoglobin Methemoglobin Reduced Hemoglobin Total Hemoglobin O2 Delivery Device O2 Liters/Min Minute Volume Vent Rate Vent Mode FiO2 Tidal Volume PEEP Peak Inspir Pressure Pressure Support Sodium Potassium Chloride Carbon Dioxide Anion Gap BUN Creatinine Estim Creat Clear Calc Estimated GFR Glucose POC Capillary Glucose 257 H 244 H 235 H Calcium Phosphorus Magnesium Total Bilirubin AST ALT Alkaline Phosphatase Total Protein Albumin Random Vancomycin 09/02/24 09/02/24 09/02/24 21:57 23:12 23:58 WBC RBC Hgb Hct MCV MCH MCHC RDW Plt Count MPV PT INR APTT Puncture Site ABG pH ABG pCO2 ABG pO2 ABG PO2/FiO2 Ratio ABG HCO3 ABG O2 Saturation ABG O2 Content ABG Base Excess A-a Gradient Oxyhemoglobin Carboxyhemoglobin Methemoglobin Reduced Hemoglobin Total Hemoglobin O2 Delivery Device O2 Liters/Min Minute Volume Vent Rate Vent Mode FiO2 Tidal Volume PEEP Peak Inspir Pressure Pressure Support Sodium Potassium Chloride Carbon Dioxide Anion Gap BUN Creatinine Estim Creat Clear Calc Estimated GFR Glucose POC Capillary Glucose 238 H 255 H 249 H Calcium Phosphorus Magnesium Total Bilirubin AST ALT Alkaline Phosphatase Total Protein Albumin Random Vancomycin 09/03/24 09/03/24 09/03/24 01:02 01:59 02:55 WBC RBC Hgb Hct MCV MCH MCHC RDW Plt Count MPV PT INR APTT Puncture Site ABG pH ABG pCO2 ABG pO2 ABG PO2/FiO2 Ratio ABG HCO3 ABG O2 Saturation ABG O2 Content ABG Base Excess A-a Gradient Oxyhemoglobin Carboxyhemoglobin Methemoglobin Reduced Hemoglobin Total Hemoglobin O2 Delivery Device O2 Liters/Min Minute Volume Vent Rate Vent Mode FiO2 Tidal Volume PEEP Peak Inspir Pressure Pressure Support Sodium Potassium Chloride Carbon Dioxide Anion Gap BUN Creatinine Estim Creat Clear Calc Estimated GFR Glucose POC Capillary Glucose 253 H 249 H 226 H Calcium Phosphorus Magnesium Total Bilirubin AST ALT Alkaline Phosphatase Total Protein Albumin Random Vancomycin 09/03/24 09/03/24 09/03/24 04:04 05:00 05:07 WBC RBC Hgb Hct MCV MCH MCHC RDW Plt Count MPV PT INR APTT Puncture Site Right radial ABG pH 7.372 ABG pCO2 38.8 ABG pO2 101.8 H ABG PO2/FiO2 Ratio 3.39 ABG HCO3 22.0 ABG O2 Saturation 97.5 ABG O2 Content 12.7 L ABG Base Excess -2.9 A-a Gradient 66.5 Oxyhemoglobin 97.1 Carboxyhemoglobin 0.3 Methemoglobin 0.1 Reduced Hemoglobin 2.5 Total Hemoglobin 9.2 L O2 Delivery Device Ventilator O2 Liters/Min Not Reportable Minute Volume Not Reportable Vent Rate 18 Vent Mode Cmv FiO2 30 Tidal Volume 320 PEEP 8 Peak Inspir Pressure Not Reportable Pressure Support Not Reportable Sodium Potassium Chloride Carbon Dioxide Anion Gap BUN Creatinine Estim Creat Clear Calc Estimated GFR Glucose POC Capillary Glucose 217 H 188 H Calcium Phosphorus Magnesium Total Bilirubin AST ALT Alkaline Phosphatase Total Protein Albumin Random Vancomycin 09/03/24 09/03/24 09/03/24 05:11 06:04 07:09 WBC 11.4 H RBC 3.06 L Hgb 8.4 L Hct 28.1 L MCV 91.8 MCH 27.5 D MCHC 29.9 L RDW 20.8 H Plt Count 133 L MPV 11.8 H PT INR APTT Puncture Site ABG pH ABG pCO2 ABG pO2 ABG PO2/FiO2 Ratio ABG HCO3 ABG O2 Saturation ABG O2 Content ABG Base Excess A-a Gradient Oxyhemoglobin Carboxyhemoglobin Methemoglobin Reduced Hemoglobin Total Hemoglobin O2 Delivery Device O2 Liters/Min Minute Volume Vent Rate Vent Mode FiO2 Tidal Volume PEEP Peak Inspir Pressure Pressure Support Sodium 137 Potassium 4.4 Chloride 94 L Carbon Dioxide 24 Anion Gap 19 H BUN 117 H D Creatinine 4.19 H Estim Creat Clear Calc 10 Estimated GFR 10 L Glucose 205 H POC Capillary Glucose 174 H 167 H Calcium 8.9 Phosphorus 8.2 H Magnesium 3.2 H Total Bilirubin 0.5 AST 55 H ALT 92 H Alkaline Phosphatase 127 H Total Protein 7.0 Albumin 3.9 Random Vancomycin 16.7 09/03/24 07:58 WBC RBC Hgb Hct MCV MCH MCHC RDW Plt Count MPV PT INR APTT Puncture Site ABG pH ABG pCO2 ABG pO2 ABG PO2/FiO2 Ratio ABG HCO3 ABG O2 Saturation ABG O2 Content ABG Base Excess A-a Gradient Oxyhemoglobin Carboxyhemoglobin Methemoglobin Reduced Hemoglobin Total Hemoglobin O2 Delivery Device O2 Liters/Min Minute Volume Vent Rate Vent Mode FiO2 Tidal Volume PEEP Peak Inspir Pressure Pressure Support Sodium Potassium Chloride Carbon Dioxide Anion Gap BUN Creatinine Estim Creat Clear Calc Estimated GFR Glucose POC Capillary Glucose 157 H Calcium Phosphorus Magnesium Total Bilirubin AST ALT Alkaline Phosphatase Total Protein Albumin Random Vancomycin Quality VTE Prophylaxis VTE prophylaxis: mechanical ordered and pharmacologic ordered
[2024-09-03 10:03] LABS: MRSA (PCR) DETECTED (NOT DETECTE)
[2024-09-03] MEDS: LIDO 1%/EPINEPHRINE 1:100,000 50 ML VIAL INFILTRATE (10:15)
[2024-09-03 10:33] LABS: Glucose Point of Care 187 mg/dl (65-105)
--- NOTE | 2024-09-03 10:57 | P.OP_ITS ---
Procedure Note - Detailed Date of Procedure 09/03/24 Pre-op Diagnosis Sepsis/PNA/NSTEMI acute respiratory failure requiring prolonged intubation Post-op Diagnosis Same Procedure Performed Tracheostomy Surgeon Mor Orellana MD Anesthesia General Description of Procedure The patient was previously consented by family. She was then brought back to the OR and induced with anesthesia through the endotracheal tube. She was then transferred to the OR table. A shoulder roll was placed. Landmarks were palpated and marked. A time out was performed. An 8-0 DCT cuffed shiley tracheostomy tube was selected and tested. The patient was prepped and draped in the usual sterile fashion for an tracheoto stomy. A horizontal incision was made along the marked line 1-2 cm above the suprasternal notch. Dissection was carried down in the midline through subcutaneous tissues using a hemostat and retraction by vein retractor and then [employer] retractors. The strap muscles were identified and divided using a combination of blunt dissection through the median raphe and electrocautery. The thyroid isthmus was encountered and retracted superiorly using retractor . The trachea was encountered. A cricoid hook was placed to stabilize and elevate the trachea. The tracheostomy tube was tested on the field and showed no leak. After confirmation with anesthesia and the weed science research technician ensuring FiO2 was acceptable an #11 blade was used to make a horizontal incision into the trachea. Heavy scissors were used to make parallel vertical cuts laterally through the second ring.Pjork flap was develpoed and 0 silk suture was placed through the flap and sutured to the skin . The endotracheal tube was pulled. The tracheostomy tube was placed and successfully hooked up the circuit. The airway was stabilized and verified by anesthesia. The cricoid/tracheal hook was carefully removed. The tracheotomy tube was then secured with 0 silk sutures placed at each corner of the trach tube and the underlying skin. A tracheal tie was then placed. mild oozing was noticed and several pieces of surgicell was placed in the trach site around the tube .This ended this portion of the procedure and care of the patient was returned to anesthesia who recovered him in the ICU. Estimated Blood Loss 50 Urine Output 0 Drains No Packing Yes (absorbable packing ,surgicell around the trach tube in the wound ) Complications None Condition Stable Disposition PACU [facility] Billing Surgery - Charge Forward: Surgery Billing
--- NOTE | 2024-09-03 11:26 | PCNFU ---
Nutrition Follow-Up Complete: Increased nutrient needs related to altered skin integrity as evidenced by noted pressure injuries Goal: Meet estimated nutritional needs. Patient will continue current goal. Pt current nutrition is NPO. Nutrition recommendation: Nepro at 40 ml/hr with Gianluca BID and Prosource BID. Last recorded weight is 83.6 kg, down from 88.8 kg on admit. Bowel Motility: Last reported BM 09/02 Labs Reviewed: Glu 205, BUN 117, Cr 4.196, Glu 205, Hct 28.1, Hgb 8.4 Meds Noted:Levophed, Meropenem, Reglan, NovoLog, Lantus, Insulin Skin: Deep Tissue-buttocks, Unstageable-left heel, Lip Additional Notes: Patient NPO for Trach today. Recommending to restart tube feedings at 40 ml/hr of Nepro with Protein Modulars of Gianluca BID and Prosource BID. Total Nutrition: 1904 kcal/117 gm protein/640 ml water. Flush 30 ml q 4 hours. Monitor in ICU rounds and reassessing every Friday and Friday.
[2024-09-03] MEDS: MIDODRINE HCL 10 MG TABLET PO ×2 (11:32→18:08)
[2024-09-03 11:47] LABS: Glucose Point of Care 243 mg/dl (65-105)
[2024-09-03 12:48] LABS: Glucose Point of Care 248 mg/dl (65-105)
[2024-09-03] MEDS: HEPARIN SODIUM 1,000 UNITS/ML VIAL 2000 UNITS IV PUSH (13:16)
[2024-09-03] MEDS: HEPARIN SODIUM 1,000 UNITS/ML VIAL 500 UNITS IV PUSH ×5 (13:19→17:23)
[2024-09-03] MEDS: ALBUMIN HUMAN 25% 25 GM/100 ML 100 ML IVPB (13:28)
[2024-09-03] MEDS: INSULIN HUMAN REGULAR (*BKC) 100 UNITS in SODIUM CHLORIDE 0.9% IV 99 ML IV CONT (13:30)
--- NOTE | 2024-09-03 13:38 | WPDPROCEDUR ---
Procedures Central Line Placement Right IJ: Central Line Date: 09/03/24 Central Line Time: 12:10 Discussed w/ the patient/family/POA,the placement of a central venous catheter, including its clinical necessity/indication & associated potential risks, benifits and alternatives.: Yes The patient/family/POA understand(s) and acknowledge(s) the need to proceed with central venous catheter insertion as an important element of the patient's clinical management.: Yes Consent: I have discussed with the patient and/or surrogate, the non-emergent placement of a central venous catheter, including its clinical necessity/indication and associated potential risks and complications. The patient and/or surrogate understand(s) and acknowledge(s) the need to proceed with central venous catheter insertion as an important element of the patient's clinical management. Time Out Performed: Yes Patient Position: supine Patient placed on monitor/pulse ox: Yes Provider Prep: mask, sterile gown, sterile gloves, Max. sterile barrier precautions, cap and hand hygiene with conventional soap/water or alcohol based hand rub Central line prep: 2% Chlorhexidine scrub Local anesthesia used: lidocaine 1% Amount of anesthesia used (ml): 3 Sterile US Technique with sterile gel/sterile probe covers: Yes Central line lumen inserted: triple Hungarian: 12 Length (cm): 16 Depth of Insertion (cm): 13 Post Procedure: sutured in place, good blood return, all ports aspirated, flushed, capped, transparent dressing, hemostatic product, antimicrobial product, securement product and aseptic technique maintained throughout procedure Post procedure x-ray: tip of catheter in good position and no pneumothorax seen Patient tolerated procedure: well Complications: none
--- NOTE | 2024-09-03 13:46 | PM.PNNEP ---
Subjective Date/time seen: 09/03/24 13:46 Interval history: Follow-up for acute kidney injury/acute renal failure on chronic kidney disease. Status post tracheostomy earlier this morning and tolerated procedure reasonably well; tolerating dialysis treatment at the time of my visit (seen on HD at 1:35PM); remains on mechanical ventilation via tracheostomy; no significant urine output noted; still on levophed therapy to maintain MAP/blood pressure; attempted dialysis earlier this morning via left tunneled catheter as well as temporary RIJ dialysis catheter was unsuccessful; given need for central access, temporary RIJ HD catheter exchanged for triple lumen central line earlier this afternoon (it appears that temporary RIJ HD catheter was slightly kinking LIJ tunneled catheter from X-ray review). Objective Data Vital Signs Vital Signs: Vital Signs Temp Pulse Resp BP Pulse Ox O2 Del Method FiO2 09/03/24 13:30 72 105/62 09/03/24 13:20 73 23 H 09/03/24 13:20 73 99 Mechanical Ventilation 09/03/24 13:19 73 100/60 09/03/24 13:19 30 09/03/24 12:55 98 F 74 22 H 104/61 98 09/03/24 12:29 76 107/63 09/03/24 12:00 75 09/03/24 12:00 76 106/63 09/03/24 12:00 98.3 F 76 21 H 106/63 96 09/03/24 12:00 30 09/03/24 12:00 96 Mechanical Ventilation 09/03/24 11:30 76 111/66 09/03/24 11:25 75 95 Mechanical Ventilation 09/03/24 11:22 76 101/62 09/03/24 09:54 98 99/58 L 09/03/24 09:28 80 98/55 L 09/03/24 09:04 80 98/55 L 09/03/24 09:00 86 09/03/24 08:43 137 H 116/87 09/03/24 08:41 126 H 116/87 09/03/24 08:35 155 H 09/03/24 08:00 30 09/03/24 08:00 86 09/03/24 08:00 97 Mechanical Ventilation 09/03/24 08:00 99.1 F 85 27 H 112/67 97 09/03/24 08:00 87 112/67 04/18/25 07:58 85 24 H 09/03/24 07:51 80 09/03/24 07:37 81 23 H 09/03/24 07:37 81 97 Mechanical Ventilation 09/03/24 07:30 98.9 F 79 26 H 100/76 95 09/03/24 06:49 81 91/50 L 09/03/24 06:48 80 108/61 09/03/24 06:26 80 107/64 09/03/24 06:26 30 09/03/24 06:15 99.1 F 80 26 H 103/55 L 98 09/03/24 06:00 80 09/03/24 06:00 80 24 H 112/67 98 09/03/24 06:00 80 112/67 09/03/24 05:17 80 99 Mechanical Ventilation 09/03/24 04:45 80 104/58 L 09/03/24 04:00 30 09/03/24 04:00 98 Mechanical Ventilation 09/03/24 04:00 99.5 F 82 23 H 114/67 98 09/03/24 04:00 82 09/03/24 04:00 82 114/67 09/03/24 02:30 80 28 H 09/03/24 02:10 81 99 Mechanical Ventilation 09/03/24 02:10 81 28 H 09/03/24 02:00 81 27 H 104/59 L 99 09/03/24 02:00 81 09/03/24 02:00 81 104/59 L 09/03/24 00:00 30 09/03/24 00:00 89 09/03/24 00:00 97 Mechanical Ventilation 09/03/24 00:00 98.7 F 89 27 H 102/58 L 97 09/03/24 00:00 89 102/58 L 09/02/24 23:21 85 97 Mechanical Ventilation 09/02/24 22:00 84 27 H 104/60 97 09/02/24 22:00 84 09/02/24 22:00 84 104/60 09/02/24 21:02 80 27 H 09/02/24 20:51 76 98 Mechanical Ventilation 09/02/24 20:45 76 28 H 09/02/24 20:00 74 91/51 L 09/02/24 20:00 99.1 F 74 26 H 91/51 L 98 09/02/24 20:00 74 09/02/24 20:00 30 09/02/24 20:00 97 Mechanical Ventilation 30 09/02/24 19:30 74 85/50 L Intake/Output Intake/Output: Intake & Output 08/31/24 09/01/24 09/02/24 09/03/24 23:59 23:59 23:59 23:59 Intake Total 1288.4 1095.8 1652.2 1095.5 Output Total 3545 15 3120 Balance 1288.4 -2449.2 1637.2 -2024.5 Meds/Results Medications: Active Medications Generic Name Dose Route Start Last Admin Trade Name Freq PRN Reason Stop Dose Admin Acetaminophen 650 mg 08/18/24 21:48 08/28/24 01:10 Acetaminophen Elixir 325 Mg/10.15 Ml Udc PO 650 mg Q4H PRN Administration Mild Pain (1-3) or Fever Acetylcysteine 200 mg 08/28/24 08:00 09/03/24 13:20 Acetylcysteine 20% Inhal Soln 800 Mg/4 Ml Vial INHALATION 200 mg Q6HRT TEMI Administration Aspirin 81 mg 09/02/24 08:00 09/03/24 07:52 Aspirin 81 Mg Chewable Tablet PO 81 mg DAILY@0800 TEMI Administration Dextrose 12.5 gm 08/29/24 15:45 Dextrose 50% 25 Gm/50 Ml Syringe IV PUSH PRN PRN Hypoglycemia Protocol Epoetin Oliver-epbx 10,000 units 09/03/24 19:33 09/03/24 14:45 Epoetin Oliver-Epbx 10,000 Units/Ml Vial IV PUSH 09/03/24 19:34 10,000 units ONCE ONE Administration Glucagon 1 mg 08/29/24 15:45 Glucagon For Inj 1 Mg Vial IM PRN PRN Hypoglycemia Protocol Glucose 15 gm 08/29/24 15:45 Glucose Oral Gel 15 Gm Of Glucse In 37.5 Gm Tube PO PRN PRN Hypoglycemia Protocol Heparin Sodium (Porcine) 5,000 units 08/29/24 07:45 09/02/24 13:05 Heparin Sodium 5,000 Units/Ml Vial SUB-Q 5,000 units Q8HR TEMI Administration Albumin Human 50 mls @ 999 mls/hr 08/21/24 06:28 Albutein IVPB 09/20/24 06:27 Q10M PRN HYPOTENSION Meropenem 500 mg in 100 mls @ 200 mls/hr 08/29/24 08:00 09/03/24 08:42 IVPB 09/04/24 08:29 Infused Q24H TEMI Infusion Insulin Human Regular 100 100 mls @ 1 mls/hr 08/29/24 16:00 09/03/24 18:14 units/ Sodium Chloride IV CONT 1 units/hr .Q24H TEMI 1 mls/hr Titration Protocol 1 UNITS/HR Dextrose 1,000 mls @ 100 mls/hr 08/29/24 15:45 Dextrose 5% 1,000 Ml IVPB PRN PRN Hypoglycemia Protocol Norepinephrine Bitartrate 8 mg in 250 mls @ 3.75 mls/hr 08/30/24 11:10 09/03/24 18:25 Levophed 8 Mg/D5w 250 Ml IV CONT 2 mcg/min .Q24H TEMI 3.75 mls/hr Titration Protocol 2 MCG/MIN Amiodarone HCl/Dextrose 360 mg in 200 mls @ 16.667 mls/hr 09/03/24 14:50 09/03/24 18:00 Nexterone 360 Mg/D5w 200 Ml IV CONT 09/04/24 14:49 0.5 mg/min .Q12H TEMI 16.67 mls/hr Infusion Protocol 0.5 MG/MIN Vancomycin HCl 750 mg in 250 mls @ 250 mls/hr 09/03/24 20:00 Vancomycin 750 Mg/Ns 250 Ml IVPB 09/03/24 20:59 ONCE ONE Insulin Aspart 4 - 8 units 08/20/24 21:05 08/29/24 12:41 Insulin Aspart (*Bkc) 100 Units/Ml SUB-Q 8 units Q4HR TEMI Administration Protocol Insulin Glargine 50 units 08/29/24 09:00 08/29/24 08:22 Insulin Glargine (*Bkc) 100 Units/Ml SUB-Q 50 units Q12H TEMI Administration Ipratropium [place] 0.5 mg 08/29/24 12:22 08/29/24 12:20 Ipratropium Br 0.02% Inh Soln 0.5 Mg/2.5 Ml Vial INHALATION 0.5 mg Q6HRT PRN Administration Wheezing Levalbuterol HCl 1.25 mg 08/29/24 14:00 09/03/24 13:20 Levalbuterol Neb 1.25 Mg/3 Ml INHALATION 1.25 mg Q6HRT TEMI Administration Levalbuterol HCl 1.25 mg 08/29/24 12:22 08/29/24 12:20 Levalbuterol Neb 1.25 Mg/3 Ml INHALATION 1.25 mg Q6HRT PRN Administration Wheezing Metoclopramide HCl 10 mg 08/23/24 08:00 09/03/24 14:13 Metoclopramide Hcl 10 Mg/10 Ml Soln Udc PO 10 mg Q6H TEMI Administration Midodrine 10 mg 09/03/24 11:00 09/03/24 18:08 Midodrine Hcl 10 Mg Tablet PO 10 mg Q8H TEMI Administration Multi-Ingred Cream/Lotion/Oil/Oint 1 applic 08/18/24 09:00 09/03/24 07:52 Mineral Oil/White Petrolatum Ointment EACH EYE 1 applic Q12HR TEMI Administration Neomycin/Polymyxin/Bacitracin 1 applic 09/02/24 12:25 09/03/24 11:22 Neomycin/Polymyxin/Bacitracin Ointment 15 Gm Tube TOPICAL 1 applic Q12H TEMI Administration Pantoprazole Sodium 40 mg 08/28/24 21:00 09/03/24 07:58 Pantoprazole Sodium Iv 40 Mg Vial IV PUSH 40 mg Q12HR TEMI Administration Polyethylene Glycol 17 gm 08/15/24 22:20 08/28/24 08:19 Polyethylene Glycol 3350 17 Gm Powd.Pack PO 17 gm DAILY PRN Administration constipation Sodium Chloride 10 ml 08/19/24 22:00 09/03/24 14:13 Central Line Flush IV PUSH 10 ml Q8HR TEMI Administration Sodium Chloride 20 ml 08/19/24 18:43 Central Line Flush IV PUSH PRN PRN after blood draws Vancomycin HCl 1 each 08/30/24 06:14 Vancomycin For Hemodialysis IVPB 09/04/24 23:59 PRN PRN Vancomycin Protocol Radiology Results: ITS Impressions Chest CTA 08/15/24 11:11 IMPRESSION: No pulmonary embolus. No thoracic aortic dissection. Right upper lobe infiltrate with patchy bilateral airspace disease, likely inflammatory/congestive rather than infectious. Small bilateral pleural effusions with adjacent atelectasis. Renal Ultrasound 08/19/24 14:10 IMPRESSION: No hydronephrosis or renal calculi. Findings suggesting medical renal disease. Findings within the upper pole of the right kidney consistent with patient's history, as detailed above. Chest/Abdomen/Pelvis CT 08/23/24 09:58 IMPRESSION: CHEST: 1. Bilateral pneumonia which is slightly decreased compared to previous study. Bilateral pleural effusion more on the right side. ABDOMEN/PELVIS: 1. No evidence of appendicitis, diverticulitis or intestinal obstruction. 2. Bilateral tiny kidney stones. 3. Hepatomegaly. 4. No evidence of ileus seen. ADDENDUM: 08/23/24 1042 Possibility of mass in the right kidney upper pole cannot be excluded. Abdomen X-Ray 08/23/24 16:53 IMPRESSION: 1. Dobbhoff type nasoenteric feeding tube with distal tip projecting over the gastric fundus. Venous Doppler Study 08/30/24 15:18 IMPRESSION: Negative bilateral lower extremity venous US. No deep vein thrombosis. Head CT 09/01/24 10:03 IMPRESSION: 1. No acute intracranial process. 2. Age-related changes including moderate diffuse volume loss and moderate scattered white matter attenuation consistent with chronic small vessel ischemic disease. 3. Unchanged bilateral otomastoiditis effusions. Chest X-Ray 09/03/24 13:11 Impression: 1: Pulmonary edema with possible small effusions. Labs Labs: Laboratory Tests 09/03/24 05:11 09/03/24 05:11 Calcium 8.9 Phosphorus 8.2 H Magnesium 3.2 H Total Bilirubin 0.5 AST 55 H ALT 92 H Alkaline Phosphatase 127 H Total Protein 7.0 Albumin 3.9 Random Vancomycin 16.7
[2024-09-03 14:15] LABS: Glucose Point of Care 231 mg/dl (65-105)
[2024-09-03 14:15] LABS: Glucose Point of Care 190 mg/dl (65-105)
[2024-09-03] MEDS: EPOETIN ALFA-EPBX 10,000 UNITS/ML VIAL 10000 UNITS IV PUSH (14:45)
[2024-09-03 15:26] LABS: Glucose Point of Care 157 mg/dl (65-105)
[2024-09-03 16:15] LABS: Glucose Point of Care 153 mg/dl (65-105)
[2024-09-03 17:14] LABS: Glucose Point of Care 147 mg/dl (65-105)
[2024-09-03 18:24] LABS: Glucose Point of Care 141 mg/dl (65-105)
--- NOTE | 2024-09-03 18:50 | WPDANESPN ---
Anes - Prog Note Post-Op Date/Time: 09/03/24 18:50 Cardiovascular status: normal Respiratory status: normal Airway patency: baseline Mental status: baseline Post-Op hydration status: normal Vital Signs: Last Vital Signs Temp 36.0 C L 09/03/24 17:41 Pulse 97 09/03/24 18:25 Resp 24 H 09/03/24 18:00 BP 106/67 09/03/24 18:25 Pulse Ox 97 09/03/24 18:00 O2 Del Method Mechanical Ventilation 09/03/24 16:42 O2 Flow Rate 50 08/17/24 23:50 FiO2 30 09/03/24 16:42 Pain Score (VAS): 0 I/O: Intake & Output 09/03/24 09/03/24 09/03/24 07:59 15:59 23:59 Intake Total 430.9 421.9 242.7 Output Total 20 0 3100 Balance 410.9 421.9 -2857.3 Laboratory Tests 09/03/24 05:11 09/03/24 05:11 09/02/24 09/02/24 09/02/24 18:58 20:01 20:59 WBC RBC Hgb Hct MCV MCH MCHC RDW Plt Count MPV Puncture Site ABG pH ABG pCO2 ABG pO2 ABG PO2/FiO2 Ratio ABG HCO3 ABG O2 Saturation ABG O2 Content ABG Base Excess A-a Gradient Oxyhemoglobin Carboxyhemoglobin Methemoglobin Reduced Hemoglobin Total Hemoglobin O2 Delivery Device O2 Liters/Min Minute Volume Vent Rate Vent Mode FiO2 Tidal Volume PEEP Peak Inspir Pressure Pressure Support Sodium Potassium Chloride Carbon Dioxide Anion Gap BUN Creatinine Estim Creat Clear Calc Estimated GFR Glucose POC Capillary Glucose 257 H 244 H 235 H Calcium Phosphorus Magnesium Total Bilirubin AST ALT Alkaline Phosphatase Total Protein Albumin Nasal MRSA (PCR) Random Vancomycin 09/02/24 09/02/24 09/02/24 21:57 23:12 23:58 WBC RBC Hgb Hct MCV MCH MCHC RDW Plt Count MPV Puncture Site ABG pH ABG pCO2 ABG pO2 ABG PO2/FiO2 Ratio ABG HCO3 ABG O2 Saturation ABG O2 Content ABG Base Excess A-a Gradient Oxyhemoglobin Carboxyhemoglobin Methemoglobin Reduced Hemoglobin Total Hemoglobin O2 Delivery Device O2 Liters/Min Minute Volume Vent Rate Vent Mode FiO2 Tidal Volume PEEP Peak Inspir Pressure Pressure Support Sodium Potassium Chloride Carbon Dioxide Anion Gap BUN Creatinine Estim Creat Clear Calc Estimated GFR Glucose POC Capillary Glucose 238 H 255 H 249 H Calcium Phosphorus Magnesium Total Bilirubin AST ALT Alkaline Phosphatase Total Protein Albumin Nasal MRSA (PCR) Random Vancomycin 09/03/24 09/03/24 09/03/24 01:02 01:59 02:55 WBC RBC Hgb Hct MCV MCH MCHC RDW Plt Count MPV Puncture Site ABG pH ABG pCO2 ABG pO2 ABG PO2/FiO2 Ratio ABG HCO3 ABG O2 Saturation ABG O2 Content ABG Base Excess A-a Gradient Oxyhemoglobin Carboxyhemoglobin Methemoglobin Reduced Hemoglobin Total Hemoglobin O2 Delivery Device O2 Liters/Min Minute Volume Vent Rate Vent Mode FiO2 Tidal Volume PEEP Peak Inspir Pressure Pressure Support Sodium Potassium Chloride Carbon Dioxide Anion Gap BUN Creatinine Estim Creat Clear Calc Estimated GFR Glucose POC Capillary Glucose 253 H 249 H 226 H Calcium Phosphorus Magnesium Total Bilirubin AST ALT Alkaline Phosphatase Total Protein Albumin Nasal MRSA (PCR) Random Vancomycin 09/03/24 09/03/24 09/03/24 04:04 05:00 05:07 WBC RBC Hgb Hct MCV MCH MCHC RDW Plt Count MPV Puncture Site Right radial ABG pH 7.372 ABG pCO2 38.8 ABG pO2 101.8 H ABG PO2/FiO2 Ratio 3.39 ABG HCO3 22.0 ABG O2 Saturation 97.5 ABG O2 Content 12.7 L ABG Base Excess -2.9 A-a Gradient 66.5 Oxyhemoglobin 97.1 Carboxyhemoglobin 0.3 Methemoglobin 0.1 Reduced Hemoglobin 2.5 Total Hemoglobin 9.2 L O2 Delivery Device Ventilator O2 Liters/Min Not Reportable Minute Volume Not Reportable Vent Rate 18 Vent Mode Cmv FiO2 30 Tidal Volume 320 PEEP 8 Peak Inspir Pressure Not Reportable Pressure Support Not Reportable Sodium Potassium Chloride Carbon Dioxide Anion Gap BUN Creatinine Estim Creat Clear Calc Estimated GFR Glucose POC Capillary Glucose 217 H 188 H Calcium Phosphorus Magnesium Total Bilirubin AST ALT Alkaline Phosphatase Total Protein Albumin Nasal MRSA (PCR) Random Vancomycin 09/03/24 09/03/24 09/03/24 05:11 06:04 07:09 WBC 11.4 H RBC 3.06 L Hgb 8.4 L Hct 28.1 L MCV 91.8 MCH 27.5 D MCHC 29.9 L RDW 20.8 H Plt Count 133 L MPV 11.8 H Puncture Site ABG pH ABG pCO2 ABG pO2 ABG PO2/FiO2 Ratio ABG HCO3 ABG O2 Saturation ABG O2 Content ABG Base Excess A-a Gradient Oxyhemoglobin Carboxyhemoglobin Methemoglobin Reduced Hemoglobin Total Hemoglobin O2 Delivery Device O2 Liters/Min Minute Volume Vent Rate Vent Mode FiO2 Tidal Volume PEEP Peak Inspir Pressure Pressure Support Sodium 137 Potassium 4.4 Chloride 94 L Carbon Dioxide 24 Anion Gap 19 H BUN 117 H D Creatinine 4.19 H Estim Creat Clear Calc 10 Estimated GFR 10 L Glucose 205 H POC Capillary Glucose 174 H 167 H Calcium 8.9 Phosphorus 8.2 H Magnesium 3.2 H Total Bilirubin 0.5 AST 55 H ALT 92 H Alkaline Phosphatase 127 H Total Protein 7.0 Albumin 3.9 Nasal MRSA (PCR) Random Vancomycin 16.7 09/03/24 09/03/24 09/03/24 07:58 08:23 09:19 WBC RBC Hgb Hct MCV MCH MCHC RDW Plt Count MPV Puncture Site ABG pH ABG pCO2 ABG pO2 ABG PO2/FiO2 Ratio ABG HCO3 ABG O2 Saturation ABG O2 Content ABG Base Excess A-a Gradient Oxyhemoglobin Carboxyhemoglobin Methemoglobin Reduced Hemoglobin Total Hemoglobin O2 Delivery Device O2 Liters/Min Minute Volume Vent Rate Vent Mode FiO2 Tidal Volume PEEP Peak Inspir Pressure Pressure Support Sodium Potassium Chloride Carbon Dioxide Anion Gap BUN Creatinine Estim Creat Clear Calc Estimated GFR Glucose POC Capillary Glucose 157 H 187 H Calcium Phosphorus Magnesium Total Bilirubin AST ALT Alkaline Phosphatase Total Protein Albumin Nasal MRSA (PCR) Detected A* Random Vancomycin 09/03/24 09/03/24 09/03/24 11:24 12:38 13:29 WBC RBC Hgb Hct MCV MCH MCHC RDW Plt Count MPV Puncture Site ABG pH ABG pCO2 ABG pO2 ABG PO2/FiO2 Ratio ABG HCO3 ABG O2 Saturation ABG O2 Content ABG Base Excess A-a Gradient Oxyhemoglobin Carboxyhemoglobin Methemoglobin Reduced Hemoglobin Total Hemoglobin O2 Delivery Device O2 Liters/Min Minute Volume Vent Rate Vent Mode FiO2 Tidal Volume PEEP Peak Inspir Pressure Pressure Support Sodium Potassium Chloride Carbon Dioxide Anion Gap BUN Creatinine Estim Creat Clear Calc Estimated GFR Glucose POC Capillary Glucose 243 H 248 H 231 H Calcium Phosphorus Magnesium Total Bilirubin AST ALT Alkaline Phosphatase Total Protein Albumin Nasal MRSA (PCR) Random Vancomycin 09/03/24 09/03/24 09/03/24 14:08 15:24 16:10 WBC RBC Hgb Hct MCV MCH MCHC RDW Plt Count MPV Puncture Site ABG pH ABG pCO2 ABG pO2 ABG PO2/FiO2 Ratio ABG HCO3 ABG O2 Saturation ABG O2 Content ABG Base Excess A-a Gradient Oxyhemoglobin Carboxyhemoglobin Methemoglobin Reduced Hemoglobin Total Hemoglobin O2 Delivery Device O2 Liters/Min Minute Volume Vent Rate Vent Mode FiO2 Tidal Volume PEEP Peak Inspir Pressure Pressure Support Sodium Potassium Chloride Carbon Dioxide Anion Gap BUN Creatinine Estim Creat Clear Calc Estimated GFR Glucose POC Capillary Glucose 190 H 157 H 153 H Calcium Phosphorus Magnesium Total Bilirubin AST ALT Alkaline Phosphatase Total Protein Albumin Nasal MRSA (PCR) Random Vancomycin 09/03/24 09/03/24 17:12 18:13 WBC RBC Hgb Hct MCV MCH MCHC RDW Plt Count MPV Puncture Site ABG pH ABG pCO2 ABG pO2 ABG PO2/FiO2 Ratio ABG HCO3 ABG O2 Saturation ABG O2 Content ABG Base Excess A-a Gradient Oxyhemoglobin Carboxyhemoglobin Methemoglobin Reduced Hemoglobin Total Hemoglobin O2 Delivery Device O2 Liters/Min Minute Volume Vent Rate Vent Mode FiO2 Tidal Volume PEEP Peak Inspir Pressure Pressure Support Sodium Potassium Chloride Carbon Dioxide Anion Gap BUN Creatinine Estim Creat Clear Calc Estimated GFR Glucose POC Capillary Glucose 147 H 141 H Calcium Phosphorus Magnesium Total Bilirubin AST ALT Alkaline Phosphatase Total Protein Albumin Nasal MRSA (PCR) Random Vancomycin Post-procedural complaints: none Patient Feedback: Patient satisfied with anesthetic care.
[2024-09-03 19:06] LABS: Glucose Point of Care 183 mg/dl (65-105)
[2024-09-03] MEDS: VANCOMYCIN 750 MG/NS 250 ML 750 MG/250 ML BAG 250 MG IVPB (20:26)
[2024-09-03 21:16] LABS: Glucose Point of Care 225 mg/dl (65-105)
[2024-09-03 21:16] LABS: Glucose Point of Care 225 mg/dl (65-105)
[2024-09-03] MEDS: AMIODARONE 360 MG/D5W 200 ML 360 MG/200 ML BAG 16.67 MG IV CONT (22:04)
[2024-09-03 22:13] LABS: Glucose Point of Care 273 mg/dl (65-105)
[2024-09-03 23:14] LABS: Glucose Point of Care 274 mg/dl (65-105)
[2024-09-04] VITALS (56 sets, daily range): BP systolic 84–127; BP diastolic 46–71; PULSE 63–109; RESP 21–97; TEMP 36.5–38.2; O2SAT 29–100
[2024-09-04] MEDS: NEOMYCIN/POLYMYXIN/BACITRACIN OINTMENT 15 GM TUBE 1 APPLIC TOPICAL ×2 (00:15→10:03)
[2024-09-04 00:17] LABS: Glucose Point of Care 282 mg/dl (65-105)
[2024-09-04] MEDS: ACETAMINOPHEN ELIXIR 325 MG/10.15 ML UDC 650 MG PO (00:24)
[2024-09-04 01:06] LABS: Glucose Point of Care 270 mg/dl (65-105)
[2024-09-04] MEDS: LEVALBUTEROL NEB 1.25 MG/3 ML INHALATION ×4 (02:05→20:11)
[2024-09-04] MEDS: ACETYLCYSTEINE 20% INHAL SOLN 800 MG/4 ML VIAL 200 MG INHALATION ×4 (02:06→20:11)
[2024-09-04 02:10] LABS: Glucose Point of Care 231 mg/dl (65-105)
[2024-09-04 03:11] LABS: Glucose Point of Care 206 mg/dl (65-105)
[2024-09-04] MEDS: METOCLOPRAMIDE HCL 10 MG/10 ML SOLN UDC PO ×4 (03:56→20:41)
[2024-09-04] MEDS: MIDODRINE HCL 10 MG TABLET PO ×3 (03:56→18:24)
[2024-09-04 04:21] LABS: Glucose Point of Care 202 mg/dl (65-105)
[2024-09-04 05:30] LABS: Glucose Point of Care 204 mg/dl (65-105)
[2024-09-04 05:49] LABS: Hematocrit 29.6 % (37.0-47.0); Hemoglobin 8.6 g/dL (12.0-15.0); Mean Corpuscular HGB Conc 29.1 g/dl (32-36); Mean Corpuscular Hemoglobin 26.1 pg (26-34); Mean Corpuscular Volume 89.7 fl (80-100); Mean Platelet Volume 11.5 fl (7.4-10.4); Platelet Count Result 144 k/mm3 (150-375); Red Cell Distribution Width 19.3 % (11.5-14.5); White Blood Count 12.8 K/mm3 (4.5-10.0)
[2024-09-04 05:50] LABS: Alveolar/Arterial O2 Gradient 81.7 mmHg; Base Excess ABG -4.5 mEq/l (+/-2.0); Carboxyhemoglobin 0.4 % THb (0-2.0); Fractional Inspired Oxygen 30 %; HCO3 ABG 22.5 mEq/l (22.0-26.0); Methemoglobin ABG 0.1 %THb (0-1.5); Oxygen Content ABG 12.5 %vol (16.0-22.0); Oxygen Saturation ABG 92.2 % (95.0-100.0); Oxyhemoglobin 91.2 % THb (90.0-100.0); PCO2 ABG 50.9 mmHg (35.0-45.0); PO2 ABG 72.4 mmHg (80.0-100.0); PO2 FiO2 Ratio Arterial Blood 2.41 %; Reduced Hemoglobin 8.3 %THb (0-5.0); Total Hemoglobin 9.7 g/dL (12.0-18.0)
[2024-09-04 05:56] LABS: Device VENTILATOR; Modified Allen's Test Pass; Site Drawn LEFT RADIAL; pH ABG 7.264 (7.350-7.450)
[2024-09-04 05:59] LABS: Arterial Blood Gas PEEP 8 cmH2O; Arterial Blood Gas Tidal Volume 320 ml; Arterial Blood Gas Vent Mode CMV; Arterial Blood Gas Ventilator rate 18 /MIN
[2024-09-04 06:06] LABS: Vancomycin Random 19.3 ug/mL (10-20)
[2024-09-04 06:07] LABS: Glucose Point of Care 212 mg/dl (65-105)
[2024-09-04 06:10] LABS: Alanine Aminotransferase 72 U/L (6-35); Alkaline Phosphatase 121 U/L (38-126); Anion Gap 18 mmol/L (4-12); Aspartate Amino Transferase 48 U/L (14-36); Bilirubin,Total 0.3 mg/dL (0.2-1.3); Blood Urea Nitrogen 88 mg/dL (7-17); Calcium 8.9 mg/dL (8.4-10.2); Carbon Dioxide 24 mmol/L (22-30); Chloride 95 mmol/L (98-107); Estimated CRCL calculation 17 ml/min; Estimated Glomerular Filt Rate 18; Glucose 218 mg/dL (65-110); Magnesium 2.6 mg/dL (1.6-2.3); Phosphorus 6.7 mg/dL (2.5-4.5); Potassium 4.3 mmol/L (3.4-5.0); Sodium 137 mmol/L (137-145)
[2024-09-04 07:10] LABS: Glucose Point of Care 207 mg/dl (65-105)
[2024-09-04] MEDS: ASPIRIN 81 MG CHEWABLE TABLET PO (08:13)
[2024-09-04] MEDS: MINERAL OIL/WHITE PETROLATUM OINTMENT 1 APPLIC EACH EYE ×2 (08:13→20:41)
[2024-09-04] MEDS: PANTOPRAZOLE SODIUM IV 40 MG VIAL IV PUSH ×2 (08:13→20:41)
[2024-09-04] MEDS: CENTRAL LINE FLUSH 10 ML IV PUSH ×3 (08:14→21:37)
[2024-09-04] MEDS: MEROPENEM 500 MG/NS 100 ML 500 MG/100 ML BAG 200 MG IVPB (08:14)
--- NOTE | 2024-09-04 08:32 | P.PNINT_ITS ---
Progress Note: A&P Assessment and Plan (1) DVT (deep venous thrombosis): Qualifiers: DVT location: lower extremity Affected thrombotic vein of extremity: tibial Chronicity: acute Laterality: bilateral Qualified Code(s): I82.443 - Acute embolism and thrombosis of tibial vein, bilateral Code(s): I82.409 - Acute embolism and thrombosis of unspecified deep veins of unspecified lower extremity Status: Resolved Assessment and Plan: 08/20: Bilateral venous Dopplers obtained due to swelling in the legs. Ultrasound showed Bilateral [id number] deep venous thrombosis in the left and right posterior tibial veins. Patient was initially started on heparin infusion which was discontinued on 08/28 due to drop in hemoglobin 08/28/2024: Patient dropped hemoglobin to 6.9, on heparin infusion for DVTs bilaterally -have asked the bedside RN to hold heparin infusion -appreciate surgery evaluation and recommendations, will hold off IVC filter placement, repeat venous Dopplers on 08/30/2024 negative for bilateral lower extremity DVT. -continue prophylactic heparin SQ 08/30: Bilateral lower extremity venous Dopplers : Negative bilateral lower extremity venous US. No deep vein thrombosis. (2) Anemia: Qualifiers: Anemia type: due to chronic kidney disease Chronic kidney disease stage: stage 3 (moderate) Chronic kidney disease stage 3 subtype: unspecified whether 3a or 3b Qualified Code(s): N18.30 - Chronic kidney disease, stage 3 unspecified; D63.1 - Anemia in chronic kidney disease Code(s): D64.9 - Anemia, unspecified Status: Acute Assessment and Plan: 08/28: Patient dropped her hemoglobin to 6.9 this morning -patient is on heparin infusion for her bilateral lower extremity DVTs -have asked the bedside RN to hold heparin infusion -08/28: Transfused 1 unit of packed RBCs -hemoglobin stable this morning -continue subQ heparin (prophylactic dose) (3) Acute respiratory failure with hypoxia: Code(s): J96.01 - Acute respiratory failure with hypoxia Status: Acute Assessment and Plan: Acute Respiratory failure secondary to combination of pneumonia and congestive heart failure 08/18: Intubated Repeat CT chest 08/18 MPRESSION: 1. Significant interval progression in an lobar pneumonia along with increasing small bilateral pleural effusions. Patient has elevated procalcitonin and BNP she is positive on intake output balance but her echocardiogram shows normal biventricular size and systolic function Continue Bronchodilators 08/16/2024: Blood cultures negative x2. 08/21/2024: Sputum culture growing MRSA Urine Legionella antigen, mycoplasma pneumonia antibody and urine pneumococcal antigen negative Continue Dialysis to remove fluid, discussed with Nephrology Status post vancomycin cefepime azithromycin (antibiotics ended on 08/27/2024) -Chest x-ray and ABGs reviewed -continue Mucomyst 08/29: Restarted vancomycin and meropenem for a total of 7 days 08/31: PEG tube to be placed 09-03: Tracheostomy placed -09/04: Placed patient on pressure support ventilation 04/22, tolerated for 1 hour, after which she was tachypneic and was switched to ASV mode of ventilation. Will place her back on CMV in the evening or if she does not tolerate ASV. (4) Congestive heart failure: Qualifiers: Heart failure type: unspecified Heart failure chronicity: acute on chronic Qualified Code(s): I50.9 - Heart failure, unspecified Code(s): I50.9 - Heart failure, unspecified Status: Acute Assessment and Plan: See above (5) Non-ST elevation myocardial infarction (NSTEMI): Code(s): I21.4 - Non-ST elevation (NSTEMI) myocardial infarction Status: Acute Assessment and Plan: History of coronary disease status post PCI in the past now presented with elevated troponin. -Cardiology following -Other heart medications on hold due to low blood pressure -Statin on hold due to elevated LFTs. -No plan for cardiac catheterization at this time. -continue aspirin 81 mg (6) Coronary artery disease: Code(s): I25.10 - Atherosclerotic heart disease of nez perce coronary artery without angina pectoris Status: Acute Assessment and Plan: See above (7) Type 2 diabetes mellitus: Code(s): E11.9 - Type 2 diabetes mellitus without complications Status: Chronic Assessment and Plan: Sliding scale insulin 08/29: Blood sugars in the 400s despite being Lantus 50 units q.12 hours. Patient was started on insulin infusion on Lantus was discontinued -09/04: Will transition insulin infusion to long-acting insulin Lantus and high-dose sliding scale, (8) Renal failure: Qualifiers: Renal failure chronicity: acute on chronic Acute renal failure type: unspecified Chronic kidney disease stage: stage 3 (moderate) Chronic kidney disease stage 3 subtype: unspecified whether 3a or 3b Qualified Code(s): N17.9 - Acute kidney failure, unspecified; N18.30 - Chronic kidney disease, stage 3 unspecified Code(s): N19 - Unspecified kidney failure Status: Acute Assessment and Plan: Patient presented with creatinine of 1.5. Baseline creatinine unknown She has suprapubic catheter. As per son patient has had a renal tumor which was being monitored and plan was to start radiation therapy by her urology CT scan showed Subtle 2.5 cm mass at the upper pole of the right kidney consistent with provided history of renal tumor. Calcification is at the bilateral kidneys which appear linear and likely atherosclerotic although could not exclude nonobstructing nephrolithiasis. No hydronephrosis in either kidney. Diuretics were held and patient was given albumin bolus Creatinine continue to increase with poor urine output. 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 08/19 dialysis catheter was placed and patient was dialyzed 1 L fluid was removed Monitor urine output electrolytes and creatinine Dialysis per Nephrology -09/02: Tunneled dialysis placed -09/03: Tunnel dialysis catheter was nonfunctioning this morning, alteplase has been dwelled in the catheter. Later in the day temporary dialysis catheter was removed, triple-lumen central line was inserted and placed above the tunnel dialysis catheter in the IVC. Once this was done the tunnel dialysis catheter was functioning fine (9) Pneumonia: Qualifiers: Laterality: bilateral Lung location: lower lobe of lung Pneumonia type: due to methicillin-resistant Staphylococcus aureus (MRSA) Qualified Code(s): J15.212 - Pneumonia due to Methicillin resistant Staphylococcus aureus Code(s): J18.9 - Pneumonia, unspecified organism Status: Acute Assessment and Plan: See above (10) Kidney mass: Code(s): N28.89 - Other specified disorders of kidney and ureter Status: Acute Assessment and Plan: Patient's son reports history of kidney mass which is being monitored as it was too big to be removed without total nephrectomy. He states that patient was s upposed to get radiation therapy in a month or so before she fractured her ankle. CT scan shows 2.5 cm renal mass on the right side and no hydronephrosis. No intervention at this time (11) Septic shock: Code(s): A41.9 - Sepsis, unspecified organism; R65.21 - Severe sepsis with septic shock Status: Acute Assessment and Plan: Patient requires Levophed mainly when she is receiving dialysis -continue antibiotics as above (12) Ileus: Code(s): K56.7 - Ileus, unspecified Status: Acute Assessment and Plan: RESOLVED Patient has significant output from her OG tube. She has not been tolerating tube feeds. She is on Reglan Bowel sounds are decreased. KUB does not show anything significant abnormal 08/23 Dobbhoff placed tube feeds resume 08/31: PEG tube inserted by GI Patient tolerating tube feeds (13) Atrial fibrillation with RVR: Code(s): I48.91 - Unspecified atrial fibrillation Status: Acute Assessment and Plan: Patient went into AFib with RVR after hemodialysis.. She was started on amiodarone infusion. She has converted to sinus bradycardia, amiodarone was discontinued on 08/26/2024 Currently off heparin infusion due to anemia 08/30: Patient went to AFib RVR during dialysis, with rates in the 140s to 150s, started patient on amiodarone bolus and infusion, will let the infusion complete -continue prophylactic heparin SQ -patient was into AFib RVR with dialysis, also requires norepinephrine during dialysis. Patient has been started couple of times on amiodarone infusion and converts to sinus rhythm after dialysis and amiodarone drip has to be discontinued. -09/03 patient flipped back into AFib RVR and had to be restarted on amiodarone infusion -09/04: Will switch to amiodarone 200 mg PO Q12H and wean the amiodarone infusion to off, patient currently in sinus rhythm, rate controlled (14) Encephalopathy: Code(s): G93.40 - Encephalopathy, unspecified Status: Acute Assessment and Plan: Patient was on Versed and fentanyl infusion for many days. She also has renal failure which may lead to accumulation -started on propofol infusion -off propofol patient becomes tachypneic and dyssynchronous with the ventilator leading her to desaturate -08/26/2024: CT scan of the brain No intracranial hemorrhage, mass, or acute infarct.Atrophy and chronic white matter changes. -ammonia levels within normal limits -08/29: propofol has been switched to Precedex, to allow patient to wake up -09/01: CT brain with no acute intracranial process, age-related changes, unchanged bilateral otomastoiditis effusion -patient has been off Precedex infusion since 08/31., not on any sedation medication Plan DVT prophylaxis -heparin subQ Stress ulcer prophylaxis - Protonix to q.12 hours Nutrition -tolerating tube feeds Code Status - Full Code Total Critical Care Time - 32 minutes 09/03: Discussed with Bacilio, he is aware that the patient is in the OR for tracheostomy, will possibly get dialyzed later this afternoon. Care coordination following and looking into LTAC placement 09/02: Discussed with patient's sons Bacilio and Geoffrey. Updated with patient's condition and plan of care. The consented to tracheostomy to be done on 09/03 09/01: Discussed with patient's is Luke flynn and Geoffrey, updated them with patient's condition and plan of care. They are aware that she got a PEG tube placed on 08/31, scheduled for tunneled dialysis catheter on 09/02 and tracheostomy on 09/03. Care coordination has met with them regarding LTAC facilities, I answered all the questions 08/28: Had a long discussion with both Luke flynn and Geoffrey. I updated them with patient's condition plan of care. They understand that the patient has multiple medical problems but requested that she gets a tracheostomy and PEG tube placement as they want to give her a complete chance to recover Due to a high probability of clinically significant, life threatening deterioration, the patient required my highest level of preparedness to intervene emergently and I personally spent this critical care time directly and personally managing the patient. This critical care time included obtaining a history; examining the patient; pulse oximetry; ordering and review of studies; arranging urgent treatment with development of a management plan; evaluation of patient's response to treatment; frequent reassessment; and discussions with other providers. It was exclusive of separately billable procedures and treating other patients and teaching time. Please see Assessment and Plan section and the rest of the note for further information on patient assessment and treatment. This dictation may have been done utilizing a voice recognition system. Attempts have been made to correct errors. However, there may be uncorrected grammatical, spelling, and recognitions errors present. Subjective Date/time seen: 09/04/24 08:32 Interval history: 08/18: Intubated / temporary dialysis catheter placed patient was dialyzed 08/21 vent into AFib with RVR. Converted to sinus Steve with amiodarone 08/23 Dobbhoff tube inserted 08/28: Transfuse 1 unit of PRBC 08/31: PEG tube placed 09/02: Tunneled dialysis catheter 09/04/2024: Patient seen examined the ICU, remains intubated on CMV mode of ventilation, peep of 8, 30% FiO2. Patient OFF Precedex since 08/31, patient opens her eyes but does not follow simple commands, does not blink to threat. She does withdraw to pain stimuli. Remains on amiodarone infusion, currently in sinus rhythm, rate controlled. Also on Levophed at 1 mcg/min. Anuric. Afebrile through the night. Secretions have improved, hemoglobin is stable. Tunnel dialysis is functioning well. Patient had dialysis yesterday with 3100 mL in fluid removal Review of Systems Review of Systems: ROS unobtainable: Yes unobtainable due to endotracheal tube, unobtainable due to medical condition and unobtainable due to mental status Exam Narrative: General: Pt is intubated and on mechanical ventilation HEENT: Pupils equal and reactive, sclera is clear, tracheostomy in place, upper lip puncture wound noted and covered with triple antibiotic appointment Lungs/Chest: Trachea central Coarse BS B/L, bilateral rales, no wheezing, adequate air entry Cardiac: RRR. Normal S1 S2. No murmurs Abdomen: Soft, nontender, nondistended, hypoactive bowel sounds Extremities: Edema improving, palpable pedal pulse : Butt in place Neurologic: Currently intubated, not on any sedation, open her eyes, does not follows simple commands. She does withdraw to pain stimulus. has a cough and a gag reflex Objective Data Vital Signs Vital Signs: Vital Signs - 24 hr 09/03/24 08:35 09/03/24 08:41 09/03/24 08:43 Temperature Pulse Rate 155 H 126 H 137 H Respiratory Rate Blood Pressure 116/87 116/87 Pulse Oximetry Oxygen Delivery Fraction of Inspired Oxygen 09/03/24 09:00 09/03/24 09:04 09/03/24 09:28 Temperature Pulse Rate 86 80 80 Respiratory Rate Blood Pressure 98/55 L 98/55 L Pulse Oximetry Oxygen Delivery Fraction of Inspired Oxygen 09/03/24 09:54 09/03/24 11:22 09/03/24 11:25 Temperature Pulse Rate 98 76 75 Respiratory Rate Blood Pressure 99/58 L 101/62 Pulse Oximetry 95 Oxygen Delivery Mechanical Ventilation Fraction of Inspired Oxygen 30 09/03/24 11:30 09/03/24 12:00 09/03/24 12:00 Temperature Pulse Rate 76 Respiratory Rate Blood Pressure 111/66 Pulse Oximetry 96 Oxygen Delivery Mechanical Ventilation Fraction of Inspired Oxygen 30 30 09/03/24 12:00 09/03/24 12:00 09/03/24 12:00 Temperature 98.3 F Pulse Rate 76 76 75 Respiratory Rate 21 H Blood Pressure 106/63 106/63 Pulse Oximetry 96 Oxygen Delivery Fraction of Inspired Oxygen 09/03/24 12:29 09/03/24 12:55 09/03/24 13:19 Temperature 98 F Pulse Rate 76 74 Respiratory Rate 22 H Blood Pressure 107/63 104/61 Pulse Oximetry 98 Oxygen Delivery Fraction of Inspired Oxygen 30 09/03/24 13:19 09/03/24 13:20 09/03/24 13:20 Temperature Pulse Rate 73 73 73 Respiratory Rate 23 H Blood Pressure 100/60 Pulse Oximetry 99 Oxygen Delivery Mechanical Ventilation Fraction of Inspired Oxygen 30 09/03/24 13:30 09/03/24 13:30 09/03/24 13:40 Temperature Pulse Rate 72 72 71 Respiratory Rate 21 H Blood Pressure 105/62 105/62 Pulse Oximetry Oxygen Delivery Fraction of Inspired Oxygen 09/03/24 13:45 09/03/24 14:00 09/03/24 14:00 Temperature Pulse Rate 75 94 98 Respiratory Rate Blood Pressure 114/70 97/70 L 97/70 L Pulse Oximetry Oxygen Delivery Fraction of Inspired Oxygen 09/03/24 14:00 09/03/24 14:00 09/03/24 14:11 Temperature Pulse Rate 98 98 99 Respiratory Rate 23 H Blood Pressure 97/70 L 91/57 L Pulse Oximetry 98 Oxygen Delivery Fraction of Inspired Oxygen 09/03/24 14:12 09/03/24 14:15 09/03/24 14:30 Temperature Pulse Rate 95 100 99 Respiratory Rate Blood Pressure 97/70 L 109/69 97/65 L Pulse Oximetry Oxygen Delivery Fraction of Inspired Oxygen 09/03/24 14:45 09/03/24 15:00 09/03/24 15:15 Temperature Pulse Rate 96 97 100 Respiratory Rate Blood Pressure 103/69 104/64 83/66 L Pulse Oximetry Oxygen Delivery Fraction of Inspired Oxygen 09/03/24 15:18 09/03/24 15:20 09/03/24 15:30 Temperature Pulse Rate 93 96 Respiratory Rate Blood Pressure 96/62 L 83/66 L 101/64 Pulse Oximetry Oxygen Delivery Fraction of Inspired Oxygen 09/03/24 15:45 09/03/24 16:00 09/03/24 16:00 Temperature Pulse Rate 102 H 95 102 H Respiratory Rate Blood Pressure 108/60 91/57 L 91/57 L Pulse Oximetry Oxygen Delivery Fraction of Inspired Oxygen 09/03/24 16:00 09/03/24 16:00 09/03/24 16:00 Temperature 97.7 F Pulse Rate 98 Respiratory Rate 25 H Blood Pressure 91/57 L Pulse Oximetry 96 97 Oxygen Delivery Mechanical Ventilation Fraction of Inspired Oxygen 30 30 09/03/24 16:00 09/03/24 16:00 09/03/24 16:15 Temperature Pulse Rate 94 99 100 Respiratory Rate Blood Pressure 91/57 L 102/66 Pulse Oximetry Oxygen Delivery Fraction of Inspired Oxygen 09/03/24 16:30 09/03/24 16:42 09/03/24 16:45 Temperature Pulse Rate 100 95 106 H Respiratory Rate Blood Pressure 89/65 L 88/53 L Pulse Oximetry 98 Oxygen Delivery Mechanical Ventilation Fraction of Inspired Oxygen 30 09/03/24 16:47 09/03/24 16:53 09/03/24 17:00 Temperature Pulse Rate 98 97 108 H Respiratory Rate Blood Pressure 88/53 L 99/73 L 107/62 Pulse Oximetry Oxygen Delivery Fraction of Inspired Oxygen 09/03/24 17:15 09/03/24 17:30 09/03/24 17:34 Temperature Pulse Rate 102 H 101 H 100 Respiratory Rate Blood Pressure 99/67 L 109/83 109/73 Pulse Oximetry Oxygen Delivery Fraction of Inspired Oxygen 09/03/24 17:41 09/03/24 18:00 09/03/24 18:00 Temperature 96.8 F L Pulse Rate 101 H 113 H 99 Respiratory Rate 25 H Blood Pressure 117/76 104/61 Pulse Oximetry 100 Oxygen Delivery Fraction of Inspired Oxygen 09/03/24 18:00 09/03/24 18:07 09/03/24 18:25 Temperature Pulse Rate 97 111 H 97 Respiratory Rate 24 H Blood Pressure 104/61 104/61 106/67 Pulse Oximetry 97 Oxygen Delivery Fraction of Inspired Oxygen 09/03/24 19:01 09/03/24 20:00 09/03/24 20:00 Temperature Pulse Rate 75 76 76 Respiratory Rate Blood Pressure 88/46 L 95/52 L 95/52 L Pulse Oximetry Oxygen Delivery Fraction of Inspired Oxygen 09/03/24 20:00 09/03/24 20:00 09/03/24 20:00 Temperature 98.3 F Pulse Rate 76 74 Respiratory Rate 28 H Blood Pressure 95/52 L Pulse Oximetry 97 Oxygen Delivery Fraction of Inspired Oxygen 30 09/03/24 20:00 09/03/24 20:03 09/03/24 20:06 Temperature Pulse Rate 74 73 Respiratory Rate 26 H Blood Pressure Pulse Oximetry 98 98 Oxygen Delivery Mechanical Ventilation Mechanical Ventilation Fraction of Inspired Oxygen 30 30 09/03/24 20:07 09/03/24 20:30 09/03/24 20:33 Temperature Pulse Rate 70 Respiratory Rate Blood Pressure 78/44 L 83/43 L Pulse Oximetry 98 Oxygen Delivery Fraction of Inspired Oxygen 09/03/24 20:45 09/03/24 21:00 09/03/24 21:15 Temperature Pulse Rate 71 Respiratory Rate Blood Pressure 87/47 L 105/61 112/72 Pulse Oximetry Oxygen Delivery Fraction of Inspired Oxygen 09/03/24 22:00 09/03/24 22:00 09/03/24 22:00 Temperature Pulse Rate 73 73 73 Respiratory Rate 32 H Blood Pressure 104/60 104/60 Pulse Oximetry 99 Oxygen Delivery Fraction of Inspired Oxygen 09/03/24 22:04 09/03/24 22:04 09/03/24 22:51 Temperature Pulse Rate 74 74 77 Respiratory Rate Blood Pressure 104/60 104/60 Pulse Oximetry 99 Oxygen Delivery Mechanical Ventilation Fraction of Inspired Oxygen 30 09/03/24 23:00 09/04/24 00:00 09/04/24 00:00 Temperature 99.5 F Pulse Rate 82 82 Respiratory Rate 30 H 31 H Blood Pressure 124/61 107/71 Pulse Oximetry 99 97 Oxygen Delivery Fraction of Inspired Oxygen 30 09/04/24 00:00 09/04/24 00:00 09/04/24 00:00 Temperature Pulse Rate 82 84 Respiratory Rate Blood Pressure 107/55 L Pulse Oximetry 97 Oxygen Delivery Mechanical Ventilation Fraction of Inspired Oxygen 30 09/04/24 00:24 09/04/24 01:00 09/04/24 02:00 Temperature 99.5 F Pulse Rate 81 70 Respiratory Rate 97 H Blood Pressure 99/55 L 103/54 L Pulse Oximetry 29 L Oxygen Delivery Fraction of Inspired Oxygen 09/04/24 02:00 09/04/24 02:00 09/04/24 02:09 Temperature Pulse Rate 70 70 71 Respiratory Rate 27 H 25 H Blood Pressure 103/54 L Pulse Oximetry 97 Oxygen Delivery Fraction of Inspired Oxygen 09/04/24 02:10 09/04/24 03:00 09/04/24 04:00 Temperature 98.4 F Pulse Rate 70 63 64 Respiratory Rate 25 H 28 H Blood Pressure 90/54 L 103/54 L Pulse Oximetry 97 100 100 Oxygen Delivery Mechanical Ventilation Fraction of Inspired Oxygen 30 09/04/24 04:00 09/04/24 04:00 09/04/24 04:00 Temperature Pulse Rate 64 Respiratory Rate Blood Pressure 103/54 L Pulse Oximetry 100 Oxygen Delivery Mechanical Ventilation Fraction of Inspired Oxygen 30 30 09/04/24 04:00 09/04/24 05:09 09/04/24 06:00 Temperature Pulse Rate 63 70 79 Respiratory Rate 29 H Blood Pressure 113/62 Pulse Oximetry 100 94 Oxygen Delivery Mechanical Ventilation Fraction of Inspired Oxygen 30 09/04/24 06:00 09/04/24 06:00 09/04/24 07:15 Temperature Pulse Rate 79 79 80 Respiratory Rate Blood Pressure 113/62 104/55 L Pulse Oximetry Oxygen Delivery Fraction of Inspired Oxygen 09/04/24 07:41 09/04/24 08:01 09/04/24 08:04 Temperature Pulse Rate 75 69 69 Respiratory Rate 29 H Blood Pressure 108/60 Pulse Oximetry 100 Oxygen Delivery Mechanical Ventilation Fraction of Inspired Oxygen 30 Intake/Output Intake/Output: Intake & Output 09/01/24 09/02/24 09/03/24 09/04/24 23:59 23:59 23:59 23:59 Intake Total 1095.8 1652.2 1189.7 915.6 Output Total 3545 15 3120 15 Balance -2449.2 1637.2 -1930.3 900.6 Meds/Results Medications: Active Medications Generic Name Dose Route Start Last Admin Trade Name Freq PRN Reason Stop Dose Admin Acetaminophen 650 mg 08/18/24 21:48 09/04/24 00:24 Acetaminophen Elixir 325 Mg/10.15 Ml Udc PO 650 mg Q4H PRN Administration Mild Pain (1-3) or Fever Acetylcysteine 200 mg 08/28/24 08:00 09/04/24 08:00 Acetylcysteine 20% Inhal Soln 800 Mg/4 Ml Vial INHALATION 200 mg Q6HRT TEMI Administration Amiodarone HCl 200 mg 09/04/24 09:00 Amiodarone Hcl 200 Mg Tablet PO Q12H TEMI Aspirin 81 mg 09/02/24 08:00 09/04/24 08:13 Aspirin 81 Mg Chewable Tablet PO 81 mg DAILY@0800 TEMI Administration Dextrose 12.5 gm 08/29/24 15:45 Dextrose 50% 25 Gm/50 Ml Syringe IV PUSH PRN PRN Hypoglycemia Protocol Epoetin Oliver-epbx 10,000 units 09/04/24 14:00 Epoetin Oliver-Epbx 10,000 Units/Ml Vial IV PUSH 09/04/24 14:01 ONCE ONE Glucagon 1 mg 08/29/24 15:45 Glucagon For Inj 1 Mg Vial IM PRN PRN Hypoglycemia Protocol Glucose 15 gm 08/29/24 15:45 Glucose Oral Gel 15 Gm Of Glucse In 37.5 Gm Tube PO PRN PRN Hypoglycemia Protocol Heparin Sodium (Porcine) 5,000 units 08/29/24 07:45 09/02/24 13:05 Heparin Sodium 5,000 Units/Ml Vial SUB-Q 5,000 units Q8HR TEMI Administration Albumin Human 50 mls @ 999 mls/hr 08/21/24 06:28 Albutein IVPB 09/20/24 06:27 Q10M PRN HYPOTENSION Meropenem 500 mg in 100 mls @ 200 mls/hr 08/29/24 08:00 09/04/24 08:14 IVPB 09/04/24 08:29 200 mls/hr Q24H TEMI Administration Insulin Human Regular 100 100 mls @ 1 mls/hr 08/29/24 16:00 09/04/24 08:14 units/ Sodium Chloride IV CONT 1 units/hr .Q24H TEMI 1 mls/hr Titration Protocol 1 UNITS/HR Dextrose 1,000 mls @ 100 mls/hr 08/29/24 15:45 Dextrose 5% 1,000 Ml IVPB PRN PRN Hypoglycemia Protocol Norepinephrine Bitartrate 8 mg in 250 mls @ 1.875 mls/hr 08/30/24 11:10 09/04/24 07:41 Levophed 8 Mg/D5w 250 Ml IV CONT 1 mcg/min .Q24H TEMI 1.88 mls/hr Titration Protocol 1 MCG/MIN Amiodarone HCl/Dextrose 360 mg in 200 mls @ 16.667 mls/hr 09/03/24 14:50 09/03/24 22:04 Nexterone 360 Mg/D5w 200 Ml IV CONT 09/04/24 14:49 0.5 mg/min .Q12H TEMI 16.67 mls/hr Administration Protocol 0.5 MG/MIN Sodium Chloride 1,000 mls @ 999 mls/hr 09/04/24 07:50 Normal Saline Iv IV CONT 09/04/24 08:50 .Q1H1M ONE Insulin Aspart 4 - 8 units 08/20/24 21:05 08/29/24 12:41 Insulin Aspart (*Bkc) 100 Units/Ml SUB-Q 8 units Q4HR TEMI Administration Protocol Ipratropium [place] 0.5 mg 08/29/24 12:22 08/29/24 12:20 Ipratropium Br 0.02% Inh Soln 0.5 Mg/2.5 Ml Vial INHALATION 0.5 mg Q6HRT PRN Administration Wheezing Levalbuterol HCl 1.25 mg 08/29/24 14:00 09/04/24 08:00 Levalbuterol Neb 1.25 Mg/3 Ml INHALATION 1.25 mg Q6HRT TEMI Administration Levalbuterol HCl 1.25 mg 08/29/24 12:22 08/29/24 12:20 Levalbuterol Neb 1.25 Mg/3 Ml INHALATION 1.25 mg Q6HRT PRN Administration Wheezing Metoclopramide HCl 10 mg 08/23/24 08:00 09/04/24 08:13 Metoclopramide Hcl 10 Mg/10 Ml Soln Udc PO 10 mg Q6H TEMI Administration Midodrine 10 mg 09/03/24 11:00 09/04/24 03:56 Midodrine Hcl 10 Mg Tablet PO 10 mg Q8H TEMI Administration Multi-Ingred Cream/Lotion/Oil/Oint 1 applic 08/18/24 09:00 09/04/24 08:13 Mineral Oil/White Petrolatum Ointment EACH EYE 1 applic Q12HR TEMI Administration Neomycin/Polymyxin/Bacitracin 1 applic 09/02/24 12:25 09/04/24 00:15 Neomycin/Polymyxin/Bacitracin Ointment 15 Gm Tube TOPICAL 1 applic Q12H TEMI Administration Pantoprazole Sodium 40 mg 08/28/24 21:00 09/04/24 08:13 Pantoprazole Sodium Iv 40 Mg Vial IV PUSH 40 mg Q12HR TEMI Administration Polyethylene Glycol 17 gm 08/15/24 22:20 08/28/24 08:19 Polyethylene Glycol 3350 17 Gm Powd.Pack PO 17 gm DAILY PRN Administration constipation Sodium Chloride 10 ml 08/19/24 22:00 09/04/24 08:14 Central Line Flush IV PUSH 10 ml Q8HR TEMI Administration Sodium Chloride 20 ml 08/19/24 18:43 Central Line Flush IV PUSH PRN PRN after blood draws Vancomycin HCl 1 each 08/30/24 06:14 Vancomycin For Hemodialysis IVPB 09/04/24 23:59 PRN PRN Vancomycin Protocol Radiology Results: ITS Impressions Chest CTA 08/15/24 11:11 IMPRESSION: No pulmonary embolus. No thoracic aortic dissection. Right upper lobe infiltrate with patchy bilateral airspace disease, likely inflammatory/congestive rather than infectious. Small bilateral pleural effusions with adjacent atelectasis. Renal Ultrasound 08/19/24 14:10 IMPRESSION: No hydronephrosis or renal calculi. Findings suggesting medical renal disease. Findings within the upper pole of the right kidney consistent with patient's history, as detailed above. Chest/Abdomen/Pelvis CT 08/23/24 09:58 IMPRESSION: CHEST: 1. Bilateral pneumonia which is slightly decreased compared to previous study. Bilateral pleural effusion more on the right side. ABDOMEN/PELVIS: 1. No evidence of appendicitis, diverticulitis or intestinal obstruction. 2. Bilateral tiny kidney stones. 3. Hepatomegaly. 4. No evidence of ileus seen. ADDENDUM: 08/23/24 1042 Possibility of mass in the right kidney upper pole cannot be excluded. Abdomen X-Ray 08/23/24 16:53 IMPRESSION: 1. Dobbhoff type nasoenteric feeding tube with distal tip projecting over the gastric fundus. Venous Doppler Study 08/30/24 15:18 IMPRESSION: Negative bilateral lower extremity venous US. No deep vein thrombosis. Head CT 09/01/24 10:03 IMPRESSION: 1. No acute intracranial process. 2. Age-related changes including moderate diffuse volume loss and moderate scattered white matter attenuation consistent with chronic small vessel ischemic disease. 3. Unchanged bilateral otomastoiditis effusions. Chest X-Ray 09/04/24 07:25 IMPRESSION: 1. Basilar predominant airspace opacities throughout both lungs, right greater than left which could represent pulmonary edema, pneumonia, atelectasis or some combination thereof. 2. Small bilateral pleural effusions. Labs Labs: Laboratory Results - last 24 hr 09/03/24 09/03/24 09/03/24 08:23 09:19 11:24 WBC RBC Hgb Hct MCV MCH MCHC RDW Plt Count MPV Puncture Site ABG pH ABG pCO2 ABG pO2 ABG PO2/FiO2 Ratio ABG HCO3 ABG O2 Saturation ABG O2 Content ABG Base Excess A-a Gradient Oxyhemoglobin Carboxyhemoglobin Methemoglobin Reduced Hemoglobin Total Hemoglobin O2 Delivery Device O2 Liters/Min Minute Volume Vent Rate Vent Mode FiO2 Tidal Volume PEEP Peak Inspir Pressure Pressure Support Sodium Potassium Chloride Carbon Dioxide Anion Gap BUN Creatinine Estim Creat Clear Calc Estimated GFR Glucose POC Capillary Glucose 187 H 243 H Calcium Phosphorus Magnesium Total Bilirubin AST ALT Alkaline Phosphatase Total Protein Albumin Nasal MRSA (PCR) Detected A* Random Vancomycin 09/03/24 09/03/24 09/03/24 12:38 13:29 14:08 WBC RBC Hgb Hct MCV MCH MCHC RDW Plt Count MPV Puncture Site ABG pH ABG pCO2 ABG pO2 ABG PO2/FiO2 Ratio ABG HCO3 ABG O2 Saturation ABG O2 Content ABG Base Excess A-a Gradient Oxyhemoglobin Carboxyhemoglobin Methemoglobin Reduced Hemoglobin Total Hemoglobin O2 Delivery Device O2 Liters/Min Minute Volume Vent Rate Vent Mode FiO2 Tidal Volume PEEP Peak Inspir Pressure Pressure Support Sodium Potassium Chloride Carbon Dioxide Anion Gap BUN Creatinine Estim Creat Clear Calc Estimated GFR Glucose POC Capillary Glucose 248 H 231 H 190 H Calcium Phosphorus Magnesium Total Bilirubin AST ALT Alkaline Phosphatase Total Protein Albumin Nasal MRSA (PCR) Random Vancomycin 09/03/24 09/03/24 09/03/24 15:24 16:10 17:12 WBC RBC Hgb Hct MCV MCH MCHC RDW Plt Count MPV Puncture Site ABG pH ABG pCO2 ABG pO2 ABG PO2/FiO2 Ratio ABG HCO3 ABG O2 Saturation ABG O2 Content ABG Base Excess A-a Gradient Oxyhemoglobin Carboxyhemoglobin Methemoglobin Reduced Hemoglobin Total Hemoglobin O2 Delivery Device O2 Liters/Min Minute Volume Vent Rate Vent Mode FiO2 Tidal Volume PEEP Peak Inspir Pressure Pressure Support Sodium Potassium Chloride Carbon Dioxide Anion Gap BUN Creatinine Estim Creat Clear Calc Estimated GFR Glucose POC Capillary Glucose 157 H 153 H 147 H Calcium Phosphorus Magnesium Total Bilirubin AST ALT Alkaline Phosphatase Total Protein Albumin Nasal MRSA (PCR) Random Vancomycin 09/03/24 09/03/24 09/03/24 18:13 19:00 20:08 WBC RBC Hgb Hct MCV MCH MCHC RDW Plt Count MPV Puncture Site ABG pH ABG pCO2 ABG pO2 ABG PO2/FiO2 Ratio ABG HCO3 ABG O2 Saturation ABG O2 Content ABG Base Excess A-a Gradient Oxyhemoglobin Carboxyhemoglobin Methemoglobin Reduced Hemoglobin Total Hemoglobin O2 Delivery Device O2 Liters/Min Minute Volume Vent Rate Vent Mode FiO2 Tidal Volume PEEP Peak Inspir Pressure Pressure Support Sodium Potassium Chloride Carbon Dioxide Anion Gap BUN Creatinine Estim Creat Clear Calc Estimated GFR Glucose POC Capillary Glucose 141 H 183 H 225 H Calcium Phosphorus Magnesium Total Bilirubin AST ALT Alkaline Phosphatase Total Protein Albumin Nasal MRSA (PCR) Random Vancomycin 09/03/24 09/03/24 09/03/24 21:02 22:08 23:10 WBC RBC Hgb Hct MCV MCH MCHC RDW Plt Count MPV Puncture Site ABG pH ABG pCO2 ABG pO2 ABG PO2/FiO2 Ratio ABG HCO3 ABG O2 Saturation ABG O2 Content ABG Base Excess A-a Gradient Oxyhemoglobin Carboxyhemoglobin Methemoglobin Reduced Hemoglobin Total Hemoglobin O2 Delivery Device O2 Liters/Min Minute Volume Vent Rate Vent Mode FiO2 Tidal Volume PEEP Peak Inspir Pressure Pressure Support Sodium Potassium Chloride Carbon Dioxide Anion Gap BUN Creatinine Estim Creat Clear Calc Estimated GFR Glucose POC Capillary Glucose 225 H 273 H 274 H Calcium Phosphorus Magnesium Total Bilirubin AST ALT Alkaline Phosphatase Total Protein Albumin Nasal MRSA (PCR) Random Vancomycin 09/04/24 09/04/24 09/04/24 00:13 01:04 02:07 WBC RBC Hgb Hct MCV MCH MCHC RDW Plt Count MPV Puncture Site ABG pH ABG pCO2 ABG pO2 ABG PO2/FiO2 Ratio ABG HCO3 ABG O2 Saturation ABG O2 Content ABG Base Excess A-a Gradient Oxyhemoglobin Carboxyhemoglobin Methemoglobin Reduced Hemoglobin Total Hemoglobin O2 Delivery Device O2 Liters/Min Minute Volume Vent Rate Vent Mode FiO2 Tidal Volume PEEP Peak Inspir Pressure Pressure Support Sodium Potassium Chloride Carbon Dioxide Anion Gap BUN Creatinine Estim Creat Clear Calc Estimated GFR Glucose POC Capillary Glucose 282 H 270 H 231 H Calcium Phosphorus Magnesium Total Bilirubin AST ALT Alkaline Phosphatase Total Protein Albumin Nasal MRSA (PCR) Random Vancomycin 09/04/24 09/04/24 09/04/24 03:07 04:11 05:06 WBC RBC Hgb Hct MCV MCH MCHC RDW Plt Count MPV Puncture Site ABG pH ABG pCO2 ABG pO2 ABG PO2/FiO2 Ratio ABG HCO3 ABG O2 Saturation ABG O2 Content ABG Base Excess A-a Gradient Oxyhemoglobin Carboxyhemoglobin Methemoglobin Reduced Hemoglobin Total Hemoglobin O2 Delivery Device O2 Liters/Min Minute Volume Vent Rate Vent Mode FiO2 Tidal Volume PEEP Peak Inspir Pressure Pressure Support Sodium Potassium Chloride Carbon Dioxide Anion Gap BUN Creatinine Estim Creat Clear Calc Estimated GFR Glucose POC Capillary Glucose 206 H 202 H 204 H Calcium Phosphorus Magnesium Total Bilirubin AST ALT Alkaline Phosphatase Total Protein Albumin Nasal MRSA (PCR) Random Vancomycin 09/04/24 09/04/24 09/04/24 05:32 05:42 06:04 WBC 12.8 H RBC 3.30 L Hgb 8.6 L Hct 29.6 L MCV 89.7 MCH 26.1 D MCHC 29.1 L RDW 19.3 H Plt Count 144 L MPV 11.5 H Puncture Site Left radial ABG pH 7.264 L* ABG pCO2 50.9 H ABG pO2 72.4 L ABG PO2/FiO2 Ratio 2.41 ABG HCO3 22.5 ABG O2 Saturation 92.2 L ABG O2 Content 12.5 L ABG Base Excess -4.5 A-a Gradient 81.7 Oxyhemoglobin 91.2 Carboxyhemoglobin 0.4 Methemoglobin 0.1 Reduced Hemoglobin 8.3 H Total Hemoglobin 9.7 L O2 Delivery Device Ventilator O2 Liters/Min Not Reportable Minute Volume Not Reportable Vent Rate 18 Vent Mode Cmv FiO2 30 Tidal Volume 320 PEEP 8 Peak Inspir Pressure Not Reportable Pressure Support Not Reportable Sodium 137 Potassium 4.3 Chloride 95 L Carbon Dioxide 24 Anion Gap 18 H BUN 88 H D Creatinine 2.60 H Estim Creat Clear Calc 17 Estimated GFR 18 L Glucose 218 H POC Capillary Glucose 212 H Calcium 8.9 Phosphorus 6.7 H Magnesium 2.6 H Total Bilirubin 0.3 AST 48 H ALT 72 H Alkaline Phosphatase 121 Total Protein 7.0 Albumin 4.0 Nasal MRSA (PCR) Random Vancomycin 19.3 09/04/24 06:59 WBC RBC Hgb Hct MCV MCH MCHC RDW Plt Count MPV Puncture Site ABG pH ABG pCO2 ABG pO2 ABG PO2/FiO2 Ratio ABG HCO3 ABG O2 Saturation ABG O2 Content ABG Base Excess A-a Gradient Oxyhemoglobin Carboxyhemoglobin Methemoglobin Reduced Hemoglobin Total Hemoglobin O2 Delivery Device O2 Liters/Min Minute Volume Vent Rate Vent Mode FiO2 Tidal Volume PEEP Peak Inspir Pressure Pressure Support Sodium Potassium Chloride Carbon Dioxide Anion Gap BUN Creatinine Estim Creat Clear Calc Estimated GFR Glucose POC Capillary Glucose 207 H Calcium Phosphorus Magnesium Total Bilirubin AST ALT Alkaline Phosphatase Total Protein Albumin Nasal MRSA (PCR) Random Vancomycin Quality VTE Prophylaxis VTE prophylaxis: mechanical ordered and pharmacologic ordered
[2024-09-04] MEDS: AMIODARONE HCL 200 MG TABLET PO ×2 (08:43→20:41)
[2024-09-04] MEDS: INSULIN GLARGINE (*BKC) 100 UNITS/ML 30 UNITS SUB-Q ×2 (08:44→20:45)
[2024-09-04 08:56] LABS: Glucose Point of Care 186 mg/dl (65-105)
[2024-09-04 08:56] LABS: Glucose Point of Care 189 mg/dl (65-105)
[2024-09-04 10:06] LABS: Glucose Point of Care 215 mg/dl (65-105)
[2024-09-04 11:52] LABS: Glucose Point of Care 243 mg/dl (65-105)
--- NOTE | 2024-09-04 11:52 | PM.PNNEP ---
Subjective Date/time seen: 09/04/24 11:52 Interval history: Follow-up for acute kidney injury/acute renal failure on chronic kidney disease. Tolerated dialysis treatment yesterday as well as tracheostomy without any issue or problems; no real significant change noted since I last saw her -- remains on mechanical ventilation via tracheostomy; off all sedation but still not following commands (only opens eyes); levophed gtt is being weaned but remais anuric; no other issues/events overnight or earlier this morning. Objective Data Vital Signs Vital Signs: Vital Signs Temp Pulse Resp BP Pulse Ox O2 Del Method FiO2 09/04/24 11:51 78 127/67 09/04/24 10:47 72 100 Mechanical Ventilation 09/04/24 10:03 68 34 H 92/50 L 100 09/04/24 10:00 70 09/04/24 09:59 69 102/59 L 09/04/24 09:41 70 94/52 L 09/04/24 08:59 30 09/04/24 08:48 66 84/51 L 09/04/24 08:43 66 09/04/24 08:04 69 100 Mechanical Ventilation 09/04/24 08:01 69 29 H 09/04/24 08:00 97.7 F 70 29 H 91/51 L 95 09/04/24 08:00 68 09/04/24 08:00 30 09/04/24 08:00 95 Mechanical Ventilation 09/04/24 08:00 70 91/51 L 09/04/24 08:00 70 91/51 L 09/04/24 07:41 75 108/60 09/04/24 07:15 80 104/55 L 09/04/24 06:00 79 09/04/24 06:00 79 113/62 09/04/24 06:00 79 29 H 113/62 94 09/04/24 05:09 70 100 Mechanical Ventilation 09/04/24 04:00 63 09/04/24 04:00 100 Mechanical Ventilation 09/04/24 04:00 30 09/04/24 04:00 64 103/54 L 09/04/24 04:00 98.4 F 64 28 H 103/54 L 100 09/04/24 03:00 63 25 H 90/54 L 100 09/04/24 02:10 70 97 Mechanical Ventilation 30 09/04/24 02:09 71 25 H 09/04/24 02:00 70 09/04/24 02:00 70 27 H 103/54 L 97 09/04/24 02:00 70 103/54 L 09/04/24 01:00 81 97 H 99/55 L 29 L 09/04/24 00:24 99.5 F 09/04/24 00:00 84 09/04/24 00:00 97 Mechanical Ventilation 09/04/24 00:00 82 107/55 L 09/04/24 00:00 30 09/04/24 00:00 99.5 F 82 31 H 107/71 97 09/03/24 23:00 82 30 H 124/61 99 09/03/24 22:51 77 99 Mechanical Ventilation 09/03/24 22:04 74 104/60 09/03/24 22:04 74 104/60 09/03/24 22:00 73 32 H 104/60 99 09/03/24 22:00 73 104/60 09/03/24 22:00 73 09/03/24 21:15 71 112/72 09/03/24 21:00 105/61 09/03/24 20:45 87/47 L 09/03/24 20:33 70 83/43 L 09/03/24 20:30 78/44 L 09/03/24 20:07 98 09/03/24 20:06 73 98 Mechanical Ventilation 09/03/24 20:03 74 26 H 09/03/24 20:00 98 Mechanical Ventilation 09/03/24 20:00 30 09/03/24 20:00 74 09/03/24 20:00 98.3 F 76 28 H 95/52 L 97 09/03/24 20:00 76 95/52 L 09/03/24 20:00 76 95/52 L 09/03/24 19:01 75 88/46 L 09/03/24 18:25 97 106/67 09/03/24 18:07 111 H 104/61 09/03/24 18:00 97 24 H 104/61 97 09/03/24 18:00 99 09/03/24 18:00 113 H 104/61 09/03/24 17:41 96.8 F L 101 H 25 H 117/76 100 09/03/24 17:34 100 109/73 09/03/24 17:30 101 H 109/83 09/03/24 17:15 102 H 99/67 L Intake/Output Intake/Output: Intake & Output 09/01/24 09/02/24 09/03/24 09/04/24 23:59 23:59 23:59 23:59 Intake Total 1095.8 1652.2 1189.7 1221.8 Output Total 3545 15 3120 15 Balance -2449.2 1637.2 -1930.3 1206.8 Meds/Results Medications: Active Medications Generic Name Dose Route Start Last Admin Trade Name Freq PRN Reason Stop Dose Admin Acetaminophen 650 mg 08/18/24 21:48 09/04/24 00:24 Acetaminophen Elixir 325 Mg/10.15 Ml Udc PO 650 mg Q4H PRN Administration Mild Pain (1-3) or Fever Acetylcysteine 200 mg 08/28/24 08:00 09/04/24 12:59 Acetylcysteine 20% Inhal Soln 800 Mg/4 Ml Vial INHALATION 200 mg Q6HRT TEMI Administration Amiodarone HCl 200 mg 09/04/24 09:00 09/04/24 08:43 Amiodarone Hcl 200 Mg Tablet PO 200 mg Q12H TEMI Administration Aspirin 81 mg 09/02/24 08:00 09/04/24 08:13 Aspirin 81 Mg Chewable Tablet PO 81 mg DAILY@0800 TEMI Administration Dextrose 12.5 gm 08/29/24 15:45 Dextrose 50% 25 Gm/50 Ml Syringe IV PUSH PRN PRN Hypoglycemia Protocol Fluconazole 100 mg 09/05/24 10:13 Fluconazole 100 Mg Tablet PO 09/08/24 10:12 QAM TEMI Glucagon 1 mg 08/29/24 15:45 Glucagon For Inj 1 Mg Vial IM PRN PRN Hypoglycemia Protocol Glucose 15 gm 08/29/24 15:45 Glucose Oral Gel 15 Gm Of Glucse In 37.5 Gm Tube PO PRN PRN Hypoglycemia Protocol Heparin Sodium (Porcine) 5,000 units 08/29/24 07:45 09/04/24 14:02 Heparin Sodium 5,000 Units/Ml Vial SUB-Q 5,000 units Q8HR TEMI Administration Heparin Sodium (Porcine) 500 units 09/04/24 16:00 Heparin Sodium 5,000 Units/Ml Vial IV PUSH 09/04/24 18:01 Q1HR TEMI Albumin Human 50 mls @ 999 mls/hr 08/21/24 06:28 09/04/24 14:50 Albutein IVPB 09/20/24 06:27 999 mls/hr Q10M PRN Administration HYPOTENSION Dextrose 1,000 mls @ 100 mls/hr 08/29/24 15:45 Dextrose 5% 1,000 Ml IVPB PRN PRN Hypoglycemia Protocol Norepinephrine Bitartrate 8 mg in 250 mls @ 0 mls/hr 08/30/24 11:10 09/04/24 15:47 Levophed 8 Mg/D5w 250 Ml IV CONT 0 mcg/min .Q0M TEMI 0 mls/hr Titration Protocol Vancomycin HCl 750 mg in 250 mls @ 250 mls/hr 09/04/24 18:45 Vancomycin 750 Mg/Ns 250 Ml IVPB 09/04/24 19:44 ONCE ONE Insulin Aspart 4 - 8 units 08/20/24 21:05 09/04/24 16:13 Insulin Aspart (*Bkc) 100 Units/Ml SUB-Q Not Given Q4HR TEMI Protocol Insulin Glargine 30 units 09/04/24 09:00 09/04/24 08:44 Insulin Glargine (*Bkc) 100 Units/Ml SUB-Q 30 units Q12H TEMI Administration Ipratropium [place] 0.5 mg 08/29/24 12:22 08/29/24 12:20 Ipratropium Br 0.02% Inh Soln 0.5 Mg/2.5 Ml Vial INHALATION 0.5 mg Q6HRT PRN Administration Wheezing Levalbuterol HCl 1.25 mg 08/29/24 14:00 09/04/24 12:58 Levalbuterol Neb 1.25 Mg/3 Ml INHALATION 1.25 mg Q6HRT TEMI Administration Levalbuterol HCl 1.25 mg 08/29/24 12:22 08/29/24 12:20 Levalbuterol Neb 1.25 Mg/3 Ml INHALATION 1.25 mg Q6HRT PRN Administration Wheezing Metoclopramide HCl 10 mg 08/23/24 08:00 09/04/24 14:03 Metoclopramide Hcl 10 Mg/10 Ml Soln Udc PO 10 mg Q6H TEMI Administration Midodrine 10 mg 09/03/24 11:00 09/04/24 10:01 Midodrine Hcl 10 Mg Tablet PO 10 mg Q8H TEMI Administration Multi-Ingred Cream/Lotion/Oil/Oint 1 applic 08/18/24 09:00 09/04/24 08:13 Mineral Oil/White Petrolatum Ointment EACH EYE 1 applic Q12HR TEMI Administration Neomycin/Polymyxin/Bacitracin 1 applic 09/02/24 12:25 09/04/24 10:03 Neomycin/Polymyxin/Bacitracin Ointment 15 Gm Tube TOPICAL 1 applic Q12H TEMI Administration Pantoprazole Sodium 40 mg 08/28/24 21:00 09/04/24 08:13 Pantoprazole Sodium Iv 40 Mg Vial IV PUSH 40 mg Q12HR TEMI Administration Polyethylene Glycol 17 gm 08/15/24 22:20 08/28/24 08:19 Polyethylene Glycol 3350 17 Gm Powd.Pack PO 17 gm DAILY PRN Administration constipation Sodium Chloride 10 ml 08/19/24 22:00 09/04/24 14:03 Central Line Flush IV PUSH 10 ml Q8HR TEMI Administration Sodium Chloride 20 ml 08/19/24 18:43 Central Line Flush IV PUSH PRN PRN after blood draws Vancomycin HCl 1 each 08/30/24 06:14 Vancomycin For Hemodialysis IVPB 09/04/24 23:59 PRN PRN Vancomycin Protocol Radiology Results: ITS Impressions Chest CTA 08/15/24 11:11 IMPRESSION: No pulmonary embolus. No thoracic aortic dissection. Right upper lobe infiltrate with patchy bilateral airspace disease, likely inflammatory/congestive rather than infectious. Small bilateral pleural effusions with adjacent atelectasis. Renal Ultrasound 08/19/24 14:10 IMPRESSION: No hydronephrosis or renal calculi. Findings suggesting medical renal disease. Findings within the upper pole of the right kidney consistent with patient's history, as detailed above. Chest/Abdomen/Pelvis CT 08/23/24 09:58 IMPRESSION: CHEST: 1. Bilateral pneumonia which is slightly decreased compared to previous study. Bilateral pleural effusion more on the right side. ABDOMEN/PELVIS: 1. No evidence of appendicitis, diverticulitis or intestinal obstruction. 2. Bilateral tiny kidney stones. 3. Hepatomegaly. 4. No evidence of ileus seen. ADDENDUM: 08/23/24 1042 Possibility of mass in the right kidney upper pole cannot be excluded. Abdomen X-Ray 08/23/24 16:53 IMPRESSION: 1. Dobbhoff type nasoenteric feeding tube with distal tip projecting over the gastric fundus. Venous Doppler Study 08/30/24 15:18 IMPRESSION: Negative bilateral lower extremity venous US. No deep vein thrombosis. Head CT 09/01/24 10:03 IMPRESSION: 1. No acute intracranial process. 2. Age-related changes including moderate diffuse volume loss and moderate scattered white matter attenuation consistent with chronic small vessel ischemic disease. 3. Unchanged bilateral otomastoiditis effusions. Chest X-Ray 09/04/24 07:25 IMPRESSION: 1. Basilar predominant airspace opacities throughout both lungs, right greater than left which could represent pulmonary edema, pneumonia, atelectasis or some combination thereof. 2. Small bilateral pleural effusions. Labs Labs: Laboratory Tests 09/04/24 05:42 09/04/24 05:42 Calcium 8.9 Phosphorus 6.7 H Magnesium 2.6 H Total Bilirubin 0.3 AST 48 H ALT 72 H Alkaline Phosphatase 121 Total Protein 7.0 Albumin 4.0 Random Vancomycin 19.3
[2024-09-04] MEDS: INSULIN ASPART (*BKC) 100 UNITS/ML SUB-Q ×2 (12:01→20:46)
[2024-09-04] MEDS: HEPARIN SODIUM 5,000 UNITS/ML VIAL 5000 UNITS SUB-Q ×2 (14:02→21:36)
[2024-09-04] MEDS: ALBUMIN HUMAN 25% 12.5 GM/50ML 50 ML IVPB (14:50)
[2024-09-04] MEDS: EPOETIN ALFA-EPBX 10,000 UNITS/ML VIAL 10000 UNITS IV PUSH (15:06)
[2024-09-04 16:13] LABS: Glucose Point of Care 156 mg/dl (65-105)
[2024-09-04] MEDS: VANCOMYCIN 750 MG/NS 250 ML 750 MG/250 ML BAG 250 MG IVPB (18:24)
[2024-09-04] MEDS: IPRATROPIUM BR 0.02% INH SOLN 0.5 MG/2.5 ML VIAL INHALATION (20:11)
[2024-09-04 20:45] LABS: Glucose Point of Care 209 mg/dl (65-105)
[2024-09-05] VITALS (45 sets, daily range): BP systolic 76–124; BP diastolic 43–107; PULSE 68–94; RESP 23–34; TEMP 36.6–38.4; O2SAT 97–100
[2024-09-05] MEDS: NEOMYCIN/POLYMYXIN/BACITRACIN OINTMENT 15 GM TUBE 1 APPLIC TOPICAL ×2 (00:05→08:31)
[2024-09-05] MEDS: ACETAMINOPHEN ELIXIR 325 MG/10.15 ML UDC 650 MG PO ×2 (00:20→08:28)
[2024-09-05 00:27] LABS: Glucose Point of Care 261 mg/dl (65-105)
[2024-09-05] MEDS: INSULIN ASPART (*BKC) 100 UNITS/ML SUB-Q ×4 (00:27→21:21)
[2024-09-05] MEDS: NOREPINEPHRINE 8 MG/D5W 250 ML 8 MG/250 ML BAG 9.38 MG IV CONT (01:00)
[2024-09-05] MEDS: ACETYLCYSTEINE 20% INHAL SOLN 800 MG/4 ML VIAL 200 MG INHALATION ×4 (02:02→20:20)
[2024-09-05] MEDS: LEVALBUTEROL NEB 1.25 MG/3 ML INHALATION ×4 (02:02→20:20)
[2024-09-05] MEDS: METOCLOPRAMIDE HCL 10 MG/10 ML SOLN UDC PO ×2 (02:27→08:28)
[2024-09-05] MEDS: MIDODRINE HCL 10 MG TABLET PO ×3 (02:27→18:10)
[2024-09-05 05:21] LABS: Alveolar/Arterial O2 Gradient 115.9 mmHg; Base Excess ABG 0.2 mEq/l (+/-2.0); Carboxyhemoglobin 0.4 % THb (0-2.0); Device VENTILATOR; Fractional Inspired Oxygen 30 %; HCO3 ABG 23.3 mEq/l (22.0-26.0); Methemoglobin ABG 0.1 %THb (0-1.5); Modified Allen's Test Unable to perform; Oxygen Content ABG 11.4 %vol (16.0-22.0); Oxygen Saturation ABG 93.1 % (95.0-100.0); Oxyhemoglobin 90.9 % THb (90.0-100.0); PCO2 ABG 31.9 mmHg (35.0-45.0); PO2 ABG 60.5 mmHg (80.0-100.0); PO2 FiO2 Ratio Arterial Blood 2.02 %; Reduced Hemoglobin 8.6 %THb (0-5.0); Site Drawn RIGHT RADIAL; Total Hemoglobin 8.9 g/dL (12.0-18.0); pH ABG 7.482 (7.350-7.450)
[2024-09-05 05:22] LABS: Arterial Blood Gas Minute Volume 6.6 LPM; Arterial Blood Gas PEEP 5 cmH2O; Arterial Blood Gas Vent Mode ASV
[2024-09-05 05:29] LABS: Glucose Point of Care 296 mg/dl (65-105)
[2024-09-05] MEDS: HEPARIN SODIUM 5,000 UNITS/ML VIAL 5000 UNITS SUB-Q ×3 (05:33→21:21)
[2024-09-05] MEDS: CENTRAL LINE FLUSH 10 ML IV PUSH ×3 (05:34→21:21)
[2024-09-05 05:55] LABS: Hematocrit 26.8 % (37.0-47.0); Hemoglobin 7.8 g/dL (12.0-15.0); Mean Corpuscular HGB Conc 29.1 g/dl (32-36); Mean Corpuscular Hemoglobin 25.4 pg (26-34); Mean Corpuscular Volume 87.3 fl (80-100); Mean Platelet Volume 12.1 fl (7.4-10.4); Platelet Count Result 128 k/mm3 (150-375); Red Blood Count 3.07 M/mm3 (4.2-5.4); Red Cell Distribution Width 19.3 % (11.5-14.5); White Blood Count 9.4 K/mm3 (4.5-10.0)
[2024-09-05 06:16] LABS: Alanine Aminotransferase 56 U/L (6-35); Albumin Level 3.8 g/dL (3.5-5.1); Alkaline Phosphatase 131 U/L (38-126); Anion Gap 18 mmol/L (4-12); Aspartate Amino Transferase 45 U/L (14-36); Bilirubin,Total 0.4 mg/dL (0.2-1.3); Blood Urea Nitrogen 95 mg/dL (7-17); Calcium 9.3 mg/dL (8.4-10.2); Carbon Dioxide 23 mmol/L (22-30); Chloride 94 mmol/L (98-107); Estimated CRCL calculation 17 ml/min; Estimated Glomerular Filt Rate 18; Glucose 299 mg/dL (65-110); Magnesium 2.5 mg/dL (1.6-2.3); Phosphorus 3.2 mg/dL (2.5-4.5); Potassium 3.6 mmol/L (3.4-5.0); Sodium 135 mmol/L (137-145)
--- NOTE | 2024-09-05 06:27 | ECG_ITS ---
Test Date: 2024-09-05 06:39:15 Measurements Intervals [place] Rate: 93 P: 93 [place]: 201 QRS: 246 QRSD: 126 T: 64 QT: 362 QTc: 452 Interpretive Statements SINUS RHYTHM RIGHT AXIS DEVIATION BORDERLINE AV CONDUCTION DELAY RIGHT BUNDLE BRANCH BLOCK CONSIDER INFERIOR INFARCT, AGE INDETERMINATE BASELINE WANDER- V1-V3 ABNORMAL ECG Compared to ECG 08/21/2024 20:18:55 ATRIAL FIBRILLATION NO LONGER PRESENT Electronically Signed On 09-05-2024 08:40:30 CDT by Davy Rivera D.O.
[2024-09-05] MEDS: MINERAL OIL/WHITE PETROLATUM OINTMENT 1 APPLIC EACH EYE ×2 (08:28→21:21)
[2024-09-05] MEDS: AMIODARONE HCL 200 MG TABLET PO ×2 (08:28→21:19)
[2024-09-05] MEDS: PANTOPRAZOLE SODIUM IV 40 MG VIAL IV PUSH ×2 (08:28→21:21)
[2024-09-05] MEDS: FLUCONAZOLE 100 MG TABLET PO (08:28)
[2024-09-05] MEDS: ASPIRIN 81 MG CHEWABLE TABLET PO (08:29)
--- NOTE | 2024-09-05 08:29 | WPDINTPN ---
Progress Note: A&P Assessment and Plan (1) DVT (deep venous thrombosis): Qualifiers: DVT location: lower extremity Affected thrombotic vein of extremity: tibial Chronicity: acute Laterality: bilateral Qualified Code(s): I82.443 - Acute embolism and thrombosis of tibial vein, bilateral Code(s): I82.409 - Acute embolism and thrombosis of unspecified deep veins of unspecified lower extremity Status: Resolved Assessment and Plan: 08/20: Bilateral venous Dopplers obtained due to swelling in the legs. Ultrasound showed Bilateral [id number] deep venous thrombosis in the left and right posterior tibial veins. Patient was initially started on heparin infusion which was discontinued on 08/28 due to drop in hemoglobin 08/28/2024: Patient dropped hemoglobin to 6.9, on heparin infusion for DVTs bilaterally -have asked the bedside RN to hold heparin infusion -appreciate surgery evaluation and recommendations, will hold off IVC filter placement, repeat venous Dopplers on 08/30/2024 negative for bilateral lower extremity DVT. -continue prophylactic heparin SQ 08/30: Bilateral lower extremity venous Dopplers : Negative bilateral lower extremity venous US. No deep vein thrombosis. (2) Anemia: Qualifiers: Anemia type: due to chronic kidney disease Chronic kidney disease stage: stage 3 (moderate) Chronic kidney disease stage 3 subtype: unspecified whether 3a or 3b Qualified Code(s): N18.30 - Chronic kidney disease, stage 3 unspecified; D63.1 - Anemia in chronic kidney disease Code(s): D64.9 - Anemia, unspecified Status: Acute Assessment and Plan: 08/28: Patient dropped her hemoglobin to 6.9 this morning -patient is on heparin infusion for her bilateral lower extremity DVTs -have asked the bedside RN to hold heparin infusion -08/28: Transfused 1 unit of packed RBCs -09/05: Hemoglobin slightly trending down this morning, will continue to monitor -continue subQ heparin (prophylactic dose) (3) Acute respiratory failure with hypoxia: Code(s): J96.01 - Acute respiratory failure with hypoxia Status: Acute Assessment and Plan: Acute Respiratory failure secondary to combination of pneumonia and congestive heart failure 08/18: Intubated Repeat CT chest 08/18 MPRESSION: 1. Significant interval progression in an lobar pneumonia along with increasing small bilateral pleural effusions. Patient has elevated procalcitonin and BNP she is positive on intake output balance but her echocardiogram shows normal biventricular size and systolic function Continue Bronchodilators 08/16/2024: Blood cultures negative x2. 08/21/2024: Sputum culture growing MRSA Urine Legionella antigen, mycoplasma pneumonia antibody and urine pneumococcal antigen negative Continue Dialysis to remove fluid, discussed with Nephrology Status post vancomycin cefepime azithromycin (antibiotics ended on 08/27/2024) -Chest x-ray and ABGs reviewed -continue Mucomyst 08/29: Status post 7 days vancomycin and meropenem 08/31: PEG tube to be placed 09-03: Tracheostomy placed -09/04: Placed patient on pressure support ventilation 04/22, tolerated for 1 hour, after which she was tachypneic and was switched to ASV mode of ventilation. Will place her back on CMV in the evening or if she does not tolerate ASV. 09/05: Patient tolerated ASV all through the day yesterday and through the night. Will switch to pressure support ventilation 02/20. Tolerating well and adequate tidal volumes. Will switch to ASV if patient tires out, is tachycardic, tachypnea or hypoxic (4) Non-ST elevation myocardial infarction (NSTEMI): Code(s): I21.4 - Non-ST elevation (NSTEMI) myocardial infarction Status: Acute Assessment and Plan: History of coronary disease status post PCI in the past now presented with elevated troponin. -Cardiology following -Other heart medications on hold due to low blood pressure -Statin on hold due to elevated LFTs. -No plan for cardiac catheterization at this time. -continue aspirin 81 mg (5) Type 2 diabetes mellitus: Code(s): E11.9 - Type 2 diabetes mellitus without complications Status: Chronic Assessment and Plan: Sliding scale insulin 08/29: Blood sugars in the 400s despite being Lantus 50 units q.12 hours. Patient was started on insulin infusion on Lantus was discontinued -09/04: Will transition insulin infusion to long-acting insulin Lantus and high-dose sliding scale, -09/05: Increase Lantus (6) Renal failure: Qualifiers: Renal failure chronicity: acute on chronic Acute renal failure type: unspecified Chronic kidney disease stage: stage 3 (moderate) Chronic kidney disease stage 3 subtype: unspecified whether 3a or 3b Qualified Code(s): N17.9 - Acute kidney failure, unspecified; N18.30 - Chronic kidney disease, stage 3 unspecified Code(s): N19 - Unspecified kidney failure Status: Acute Assessment and Plan: Patient presented with creatinine of 1.5. Baseline creatinine unknown She has suprapubic catheter. As per son patient has had a renal tumor which was being monitored and plan was to start radiation therapy by her urology CT scan showed Subtle 2.5 cm mass at the upper pole of the right kidney consistent with provided history of renal tumor. Calcification is at the bilateral kidneys which appear linear and likely atherosclerotic although could not exclude nonobstructing nephrolithiasis. No hydronephrosis in either kidney. Diuretics were held and patient was given albumin bolus Creatinine continue to increase with poor urine output. After discussion with patient's family and script writer decision was made to initiate dialysis. 08/19 dialysis catheter was placed and patient was dialyzed 1 L fluid was removed Monitor urine output electrolytes and creatinine Dialysis per Nephrology -09/02: Tunneled dialysis placed -09/03: Tunnel dialysis catheter was nonfunctioning this morning, alteplase has been dwelled in the catheter. Later in the day temporary dialysis catheter was removed, triple-lumen central line was inserted and placed above the tunnel dialysis catheter in the IVC. Once this was done the tunnel dialysis catheter was functioning fine (7) Pneumonia: Qualifiers: Laterality: bilateral Lung location: lower lobe of lung Pneumonia type: due to methicillin-resistant Staphylococcus aureus (MRSA) Qualified Code(s): J15.212 - Pneumonia due to Methicillin resistant Staphylococcus aureus Code(s): J18.9 - Pneumonia, unspecified organism Status: Acute Assessment and Plan: See above (8) Kidney mass: Code(s): N28.89 - Other specified disorders of kidney and ureter Status: Acute Assessment and Plan: Patient's son reports history of kidney mass which is being monitored as it was too big to be removed without total nephrectomy. He states that patient was supposed to get radiation therapy in a month or so before she fractured her ankle. CT scan shows 2.5 cm renal mass on the right side and no hydronephrosis. No intervention at this time (9) Septic shock: Code(s): A41.9 - Sepsis, unspecified organism; R65.21 - Severe sepsis with septic shock Status: Acute Assessment and Plan: Patient requires Levophed mainly when she is receiving dialysis -target SBP > 90 mmHg Status post antibiotics -patient on midodrine (10) Ileus: Code(s): K56.7 - Ileus, unspecified Status: Acute Assessment and Plan: RESOLVED 08/23 Dobbhoff placed tube feeds resume 08/31: PEG tube inserted by GI Patient tolerating tube feeds -continue MiraLax and docusate sodium (11) Atrial fibrillation with RVR: Code(s): I48.91 - Unspecified atrial fibrillation Status: Acute Assessment and Plan: Patient went into AFib with RVR after hemodialysis.. She was started on amiodarone infusion. She has converted to sinus bradycardia, amiodarone was discontinued on 08/26/2024 Currently off heparin infusion due to anemia 08/30: Patient went to AFib RVR during dialysis, with rates in the 140s to 150s, started patient on amiodarone bolus and infusion, will let the infusion complete -continue prophylactic heparin SQ -patient was into AFib RVR with dialysis, also requires norepinephrine during dialysis. Patient has been started couple of times on amiodarone infusion and converts to sinus rhythm after dialysis and amiodarone drip has to be discontinued. -09/03 patient flipped back into AFib RVR and had to be restarted on amiodarone infusion -09/04: Started on amiodarone 200 mg PO Q12H and wean the amiodarone infusion to off, patient currently in sinus rhythm, rate controlled. Off amiodarone infusion (12) Encephalopathy: Code(s): G93.40 - Encephalopathy, unspecified Status: Acute Assessment and Plan: Patient was on Versed and fentanyl infusion for many days. She also has renal failure which may lead to accumulation -started on propofol infusion -off propofol patient becomes tachypneic and dyssynchronous with the ventilator leading her to desaturate -08/26/2024: CT scan of the brain No intracranial hemorrhage, mass, or acute infarct.Atrophy and chronic white matter changes. -ammonia levels within normal limits -08/29: propofol has been switched to Precedex, to allow patient to wake up -09/01: CT brain with no acute intracranial process, age-related changes, unchanged bilateral otomastoiditis effusion -patient has been off Precedex infusion since 08/31., not on any sedation medication 09/05: More awake this morning, eyes wide open, tracking, acknowledges examiner in the room, blinks to threat. Does not follow any commands at this time Plan DVT prophylaxis -heparin subQ Stress ulcer prophylaxis - Protonix to q.12 hours Nutrition -tolerating tube feeds Code Status - Full Code Total Critical Care Time - 32 minutes 09/03: Discussed with Bacilio, he is aware that the patient is in the OR for tracheostomy, will possibly get dialyzed later this afternoon. Care coordination following and looking into LTAC placement 09/02: Discussed with patient's sons Bacilio and Geoffrey. Updated with patient's condition and plan of care. The consented to tracheostomy to be done on 09/03 09/01: Discussed with patient's is Luke flynn and Geoffrey, updated them with patient's condition and plan of care. They are aware that she got a PEG tube placed on 08/31, scheduled for tunneled dialysis catheter on 09/02 and tracheostomy on 09/03. Care coordination has met with them regarding LTAC facilities, I answered all the questions 08/28: Had a long discussion with both Luke flynn and Geoffrey. I updated them with patient's condition plan of care. They understand that the patient has multiple medical problems but requested that she gets a tracheostomy and PEG tube placement as they want to give her a complete chance to recover Due to a high probability of clinically significant, life threatening deterioration, the patient required my highest level of preparedness to intervene emergently and I personally spent this critical care time directly and personally managing the patient. This critical care time included obtaining a history; examining the patient; pulse oximetry; ordering and review of studies; arranging urgent treatment with development of a management plan; evaluation of patient's response to treatment; frequent reassessment; and discussions with other providers. It was exclusive of separately billable procedures and treating other patients and teaching time. Please see Assessment and Plan section and the rest of the note for further information on patient assessment and treatment. This dictation may have been done utilizing a voice recognition system. Attempts have been made to correct errors. However, there may be uncorrected grammatical, spelling, and recognitions errors present. Subjective Date/time seen: 09/05/24 08:29 Interval history: 08/18: Intubated 08/19 temporary dialysis catheter placed patient was dialyzed 08/21 vent into AFib with RVR. Converted to sinus Steve with amiodarone 08/23 Dobbhoff tube inserted 08/28: Transfuse 1 unit of PRBC 08/31: PEG tube placed 09/02: Tunneled dialysis catheter 09/05/2024: Patient seen examined the ICU, remains intubated on CMV mode of ventilation, peep of 8, 30% FiO2. Patient OFF Precedex since 08/31, patient more awake, eyes are wide open, tracks, blinks to threat. Does not follow any commands. She does withdraw to pain stimuli. Off amiodarone infusion, currently in sinus rhythm rate control, did go into AFib RVR early this morning for a brief period but converted back to sinus rhythm. Patient was started on norepinephrine overnight but was discontinued this morning. Patient had dialysis with 1058 mL in fluid removal. Team a at a patient was febrile with a T-max of 101.1? Review of Systems Review of Systems: ROS unobtainable: Yes unobtainable due to endotracheal tube, unobtainable due to medical condition and unobtainable due to mental status Exam Narrative: General: Pt is intubated and on mechanical ventilation, no acute distress HEENT: Pupils equal and reactive, sclera is clear, tracheostomy in place, upper lip puncture wound noted and covered with triple antibiotic appointment Lungs/Chest: Trachea central Coarse BS B/L, bilateral rales, no wheezing, adequate air entry Cardiac: RRR. Normal S1 S2. No murmurs Abdomen: Soft, nontender, nondistended, hypoactive bowel sounds Extremities: Edema improving, palpable pedal pulse : Butt in place Neurologic: Currently intubated, not on any sedation, patient more awake this morning, eyes are wide open, tracks, blinks to threat. Does not follow any commands. She does withdraw to pain stimuli Objective Data Vital Signs Vital Signs: Vital Signs - 24 hr 09/04/24 08:43 09/04/24 08:48 09/04/24 08:59 Temperature Pulse Rate 66 66 Respiratory Rate Blood Pressure 84/51 L Pulse Oximetry Oxygen Delivery Fraction of Inspired Oxygen 30 09/04/24 09:41 09/04/24 09:59 09/04/24 10:00 Temperature Pulse Rate 70 69 70 Respiratory Rate Blood Pressure 94/52 L 102/59 L Pulse Oximetry Oxygen Delivery Fraction of Inspired Oxygen 09/04/24 10:03 09/04/24 10:47 09/04/24 11:51 Temperature Pulse Rate 68 72 78 Respiratory Rate 34 H Blood Pressure 92/50 L 127/67 Pulse Oximetry 100 100 Oxygen Delivery Mechanical Ventilation Fraction of Inspired Oxygen 30 09/04/24 12:00 09/04/24 12:00 09/04/24 12:00 Temperature Pulse Rate 78 Respiratory Rate Blood Pressure Pulse Oximetry 97 Oxygen Delivery Mechanical Ventilation Fraction of Inspired Oxygen 30 30 09/04/24 12:00 09/04/24 13:01 09/04/24 13:02 Temperature 98.7 F Pulse Rate 78 77 75 Respiratory Rate 21 H 29 H Blood Pressure 118/64 Pulse Oximetry 99 98 Oxygen Delivery Mechanical Ventilation Fraction of Inspired Oxygen 30 09/04/24 13:50 09/04/24 14:00 09/04/24 14:00 Temperature Pulse Rate 75 77 77 Respiratory Rate 27 H Blood Pressure 103/55 L 109/62 Pulse Oximetry 97 Oxygen Delivery Fraction of Inspired Oxygen 09/04/24 14:24 09/04/24 14:24 09/04/24 14:59 Temperature 100.4 F H Pulse Rate 78 81 Respiratory Rate 24 H Blood Pressure 103/61 105/54 L Pulse Oximetry 97 Oxygen Delivery Fraction of Inspired Oxygen 30 09/04/24 15:15 09/04/24 15:30 09/04/24 15:45 Temperature Pulse Rate 79 79 80 Respiratory Rate Blood Pressure 104/52 L 102/53 L 102/48 L Pulse Oximetry Oxygen Delivery Fraction of Inspired Oxygen 09/04/24 15:47 09/04/24 16:00 09/04/24 16:00 Temperature Pulse Rate 80 81 Respiratory Rate Blood Pressure 102/48 L 103/54 L Pulse Oximetry 96 Oxygen Delivery Mechanical Ventilation Fraction of Inspired Oxygen 30 09/04/24 16:00 09/04/24 16:00 09/04/24 16:00 Temperature 98.5 F Pulse Rate 80 80 Respiratory Rate 28 H Blood Pressure 103/54 L Pulse Oximetry 95 Oxygen Delivery Fraction of Inspired Oxygen 30 09/04/24 16:15 09/04/24 16:30 09/04/24 16:45 Temperature Pulse Rate 80 79 80 Respiratory Rate Blood Pressure 104/52 L 103/51 L 103/53 L Pulse Oximetry Oxygen Delivery Fraction of Inspired Oxygen 09/04/24 16:53 09/04/24 17:00 09/04/24 17:15 Temperature Pulse Rate 79 80 81 Respiratory Rate Blood Pressure 107/58 L 102/51 L Pulse Oximetry 97 Oxygen Delivery Mechanical Ventilation Fraction of Inspired Oxygen 30 09/04/24 17:30 09/04/24 17:45 09/04/24 17:45 Temperature Pulse Rate 80 109 H 84 Respiratory Rate Blood Pressure 106/52 L 91/56 L 91/56 L Pulse Oximetry Oxygen Delivery Fraction of Inspired Oxygen 09/04/24 17:59 09/04/24 18:00 09/04/24 18:00 Temperature 100.8 F H Pulse Rate 86 84 84 Respiratory Rate 27 H Blood Pressure 107/57 L 107/57 L Pulse Oximetry 97 Oxygen Delivery Fraction of Inspired Oxygen 09/04/24 18:00 09/04/24 20:00 09/04/24 20:00 Temperature 100.0 F H Pulse Rate 82 82 81 Respiratory Rate 25 H 28 H Blood Pressure 102/59 L 107/54 L Pulse Oximetry 96 98 Oxygen Delivery Fraction of Inspired Oxygen 09/04/24 20:00 09/04/24 20:00 09/04/24 20:11 Temperature Pulse Rate 82 Respiratory Rate 25 H Blood Pressure Pulse Oximetry 97 Oxygen Delivery Mechanical Ventilation Fraction of Inspired Oxygen 30 30 09/04/24 20:18 09/04/24 20:34 09/04/24 20:41 Temperature Pulse Rate 79 86 85 Respiratory Rate 32 H Blood Pressure Pulse Oximetry 99 Oxygen Delivery Mechanical Ventilation Fraction of Inspired Oxygen 30 09/04/24 21:00 09/04/24 22:00 09/04/24 22:00 Temperature Pulse Rate 82 83 83 Respiratory Rate 29 H 29 H Blood Pressure 96/53 L 103/57 L Pulse Oximetry 95 97 Oxygen Delivery Fraction of Inspired Oxygen 09/04/24 23:00 09/04/24 23:11 09/04/24 23:30 Temperature Pulse Rate 82 78 Respiratory Rate 27 H Blood Pressure 100/60 86/46 L Pulse Oximetry 98 99 Oxygen Delivery Mechanical Ventilation Fraction of Inspired Oxygen 30 09/04/24 23:45 09/05/24 00:00 09/05/24 00:00 Temperature 100.4 F H Pulse Rate 76 Respiratory Rate 29 H Blood Pressure 109/58 L 87/51 L Pulse Oximetry 99 Oxygen Delivery Fraction of Inspired Oxygen 30 09/05/24 00:00 09/05/24 00:00 09/05/24 00:12 Temperature Pulse Rate 75 Respiratory Rate Blood Pressure 121/71 Pulse Oximetry 100 Oxygen Delivery Mechanical Ventilation Fraction of Inspired Oxygen 30 09/05/24 00:20 09/05/24 00:30 09/05/24 00:45 Temperature 100.4 F H Pulse Rate Respiratory Rate Blood Pressure 99/54 L 82/46 L Pulse Oximetry Oxygen Delivery Fraction of Inspired Oxygen 09/05/24 01:00 09/05/24 01:00 09/05/24 01:00 Temperature Pulse Rate 72 72 72 Respiratory Rate 29 H Blood Pressure 76/43 L 76/43 L 76/43 L Pulse Oximetry 100 Oxygen Delivery Fraction of Inspired Oxygen 09/05/24 01:15 09/05/24 01:15 09/05/24 01:30 Temperature Pulse Rate 69 Respiratory Rate Blood Pressure 96/51 L 96/51 L 91/52 L Pulse Oximetry Oxygen Delivery Fraction of Inspired Oxygen 09/05/24 01:45 09/05/24 02:00 09/05/24 02:00 Temperature 101.1 F H Pulse Rate 70 68 68 Respiratory Rate 27 H Blood Pressure 104/62 93/59 L Pulse Oximetry 100 Oxygen Delivery Fraction of Inspired Oxygen 09/05/24 02:00 09/05/24 02:02 09/05/24 02:02 Temperature Pulse Rate 68 77 80 Respiratory Rate 29 H 23 H Blood Pressure 93/59 L Pulse Oximetry 99 98 Oxygen Delivery Mechanical Ventilation Fraction of Inspired Oxygen 30 09/05/24 02:30 09/05/24 04:00 09/05/24 04:00 Temperature 99.9 F H 99.9 F H Pulse Rate 69 78 78 Respiratory Rate 26 H Blood Pressure 98/54 L 113/60 113/60 Pulse Oximetry 99 Oxygen Delivery Fraction of Inspired Oxygen 09/05/24 04:00 09/05/24 04:00 09/05/24 04:00 Temperature Pulse Rate 80 Respiratory Rate Blood Pressure Pulse Oximetry 99 Oxygen Delivery Mechanical Ventilation Fraction of Inspired Oxygen 30 30 09/05/24 05:01 09/05/24 05:15 09/05/24 05:20 Temperature Pulse Rate 87 88 Respiratory Rate Blood Pressure 119/107 H 119/107 H Pulse Oximetry 97 Oxygen Delivery Mechanical Ventilation Fraction of Inspired Oxygen 30 09/05/24 05:30 09/05/24 06:00 09/05/24 06:00 Temperature Pulse Rate 85 85 Respiratory Rate 28 H Blood Pressure 113/61 122/68 Pulse Oximetry 98 Oxygen Delivery Fraction of Inspired Oxygen 09/05/24 06:00 09/05/24 07:00 09/05/24 07:30 Temperature Pulse Rate 85 94 91 Respiratory Rate Blood Pressure 122/68 119/70 113/65 Pulse Oximetry Oxygen Delivery Fraction of Inspired Oxygen 09/05/24 07:51 09/05/24 07:58 09/05/24 08:00 Temperature 98.1 F Pulse Rate 89 87 88 Respiratory Rate 32 H 28 H Blood Pressure 105/58 L Pulse Oximetry 97 98 Oxygen Delivery Mechanical Ventilation Fraction of Inspired Oxygen 30 09/05/24 08:12 Temperature Pulse Rate 87 Respiratory Rate 32 H Blood Pressure Pulse Oximetry Oxygen Delivery Fraction of Inspired Oxygen Intake/Output Intake/Output: Intake & Output 09/02/24 09/03/24 09/04/24 09/05/24 23:59 23:59 23:59 23:59 Intake Total 1652.2 1189.6 1871.6 1139.4 Output Total 15 3120 1088 Balance 1637.2 -1930.4 783.6 1139.4 Meds/Results Medications: Active Medications Generic Name Dose Route Start Last Admin Trade Name Freq PRN Reason Stop Dose Admin Acetaminophen 650 mg 08/18/24 21:48 09/05/24 00:20 Acetaminophen Elixir 325 Mg/10.15 Ml Udc PO 650 mg Q4H PRN Administration Mild Pain (1-3) or Fever Acetylcysteine 200 mg 08/28/24 08:00 09/05/24 07:49 Acetylcysteine 20% Inhal Soln 800 Mg/4 Ml Vial INHALATION 200 mg Q6HRT TEMI Administration Amiodarone HCl 200 mg 09/04/24 09:00 09/04/24 20:41 Amiodarone Hcl 200 Mg Tablet PO 200 mg Q12H TEMI Administration Aspirin 81 mg 09/02/24 08:00 09/04/24 08:13 Aspirin 81 Mg Chewable Tablet PO 81 mg DAILY@0800 REPLACED BY [facility] Administration Dextrose 12.5 gm 08/29/24 15:45 Dextrose 50% 25 Gm/50 Ml Syringe IV PUSH PRN PRN Hypoglycemia Protocol Fluconazole 100 mg 09/05/24 10:13 Fluconazole 100 Mg Tablet PO 09/08/24 10:12 QAM REPLACED BY [facility] Glucagon 1 mg 08/29/24 15:45 Glucagon For Inj 1 Mg Vial IM PRN PRN Hypoglycemia Protocol Glucose 15 gm 08/29/24 15:45 Glucose Oral Gel 15 Gm Of Glucse In 37.5 Gm Tube PO PRN PRN Hypoglycemia Protocol Heparin Sodium (Porcine) 5,000 units 08/29/24 07:45 09/05/24 05:33 Heparin Sodium 5,000 Units/Ml Vial SUB-Q 5,000 units Q8HR TEMI Administration Albumin Human 50 mls @ 999 mls/hr 08/21/24 06:28 09/04/24 18:41 Albutein IVPB 09/20/24 06:27 Infused Q10M PRN Infusion HYPOTENSION Dextrose 1,000 mls @ 100 mls/hr 08/29/24 15:45 Dextrose 5% 1,000 Ml IVPB PRN PRN Hypoglycemia Protocol Norepinephrine Bitartrate 8 mg in 250 mls @ 0 mls/hr 09/05/24 01:00 09/05/24 07:30 Levophed 8 Mg/D5w 250 Ml IV CONT 0 mcg/min .Q0M TEMI 0 mls/hr Titration Protocol Insulin Aspart 4 - 8 units 08/20/24 21:05 09/05/24 05:29 Insulin Aspart (*Bkc) 100 Units/Ml SUB-Q 5 units Q4HR TEMI Administration Protocol Insulin Glargine 45 units 09/05/24 09:00 Insulin Glargine (*Bkc) 100 Units/Ml SUB-Q Q12H TEMI Ipratropium [place] 0.5 mg 08/29/24 12:22 09/04/24 20:11 Ipratropium Br 0.02% Inh Soln 0.5 Mg/2.5 Ml Vial INHALATION 0.5 mg Q6HRT PRN Administration Wheezing Levalbuterol HCl 1.25 mg 08/29/24 14:00 09/05/24 07:50 Levalbuterol Neb 1.25 Mg/3 Ml INHALATION 1.25 mg Q6HRT TEMI Administration Levalbuterol HCl 1.25 mg 08/29/24 12:22 08/29/24 12:20 Levalbuterol Neb 1.25 Mg/3 Ml INHALATION 1.25 mg Q6HRT PRN Administration Wheezing Metoclopramide HCl 10 mg 08/23/24 08:00 09/05/24 02:27 Metoclopramide Hcl 10 Mg/10 Ml Soln Udc PO 10 mg Q6H TEMI Administration Midodrine 10 mg 09/03/24 11:00 09/05/24 02:27 Midodrine Hcl 10 Mg Tablet PO 10 mg Q8H TEMI Administration Multi-Ingred Cream/Lotion/Oil/Oint 1 applic 08/18/24 09:00 09/04/24 20:41 Mineral Oil/White Petrolatum Ointment EACH EYE 1 applic Q12HR TEMI Administration Neomycin/Polymyxin/Bacitracin 1 applic 09/02/24 12:25 09/05/24 00:05 Neomycin/Polymyxin/Bacitracin Ointment 15 Gm Tube TOPICAL 1 applic Q12H TEMI Administration Pantoprazole Sodium 40 mg 08/28/24 21:00 09/04/24 20:41 Pantoprazole Sodium Iv 40 Mg Vial IV PUSH 40 mg Q12HR TEMI Administration Polyethylene Glycol 17 gm 08/15/24 22:20 08/28/24 08:19 Polyethylene Glycol 3350 17 Gm Powd.Pack PO 17 gm DAILY PRN Administration constipation Sodium Chloride 10 ml 08/19/24 22:00 09/05/24 05:34 Central Line Flush IV PUSH 10 ml Q8HR TEMI Administration Sodium Chloride 20 ml 08/19/24 18:43 Central Line Flush IV PUSH PRN PRN after blood draws Radiology Results: ITS Impressions Chest CTA 08/15/24 11:11 IMPRESSION: No pulmonary embolus. No thoracic aortic dissection. Right upper lobe infiltrate with patchy bilateral airspace disease, likely inflammatory/congestive rather than infectious. Small bilateral pleural effusions with adjacent atelectasis. Renal Ultrasound 08/19/24 14:10 IMPRESSION: No hydronephrosis or renal calculi. Findings suggesting medical renal disease. Findings within the upper pole of the right kidney consistent with patient's history, as detailed above. Chest/Abdomen/Pelvis CT 08/23/24 09:58 IMPRESSION: CHEST: 1. Bilateral pneumonia which is slightly decreased compared to previous study. Bilateral pleural effusion more on the right side. ABDOMEN/PELVIS: 1. No evidence of appendicitis, diverticulitis or intestinal obstruction. 2. Bilateral tiny kidney stones. 3. Hepatomegaly. 4. No evidence of ileus seen. ADDENDUM: 08/23/24 1042 Possibility of mass in the right kidney upper pole cannot be excluded. Abdomen X-Ray 08/23/24 16:53 IMPRESSION: 1. Dobbhoff type nasoenteric feeding tube with distal tip projecting over the gastric fundus. Venous Doppler Study 08/30/24 15:18 IMPRESSION: Negative bilateral lower extremity venous US. No deep vein thrombosis. Head CT 09/01/24 10:03 IMPRESSION: 1. No acute intracranial process. 2. Age-related changes including moderate diffuse volume loss and moderate scattered white matter attenuation consistent with chronic small vessel ischemic disease. 3. Unchanged bilateral otomastoiditis effusions. Chest X-Ray 09/05/24 05:41 Impression: 1: Persistent bilateral airspace disease without significant change compared with 09/04/2024. Differential diagnosis includes edema and pneumonia. Labs Labs: Laboratory Results - last 24 hr 09/04/24 09/04/24 09/04/24 08:06 08:50 09:57 WBC RBC Hgb Hct MCV MCH MCHC RDW Plt Count MPV Puncture Site ABG pH ABG pCO2 ABG pO2 ABG PO2/FiO2 Ratio ABG HCO3 ABG O2 Saturation ABG O2 Content ABG Base Excess A-a Gradient Oxyhemoglobin Carboxyhemoglobin Methemoglobin Reduced Hemoglobin Total Hemoglobin O2 Delivery Device O2 Liters/Min Minute Volume Vent Rate Vent Mode FiO2 Tidal Volume PEEP Peak Inspir Pressure Pressure Support Sodium Potassium Chloride Carbon Dioxide Anion Gap BUN Creatinine Estim Creat Clear Calc Estimated GFR Glucose POC Capillary Glucose 189 H 186 H 215 H Calcium Phosphorus Magnesium Total Bilirubin AST ALT Alkaline Phosphatase Total Protein Albumin 09/04/24 09/04/24 09/04/24 11:48 16:09 20:43 WBC RBC Hgb Hct MCV MCH MCHC RDW Plt Count MPV Puncture Site ABG pH ABG pCO2 ABG pO2 ABG PO2/FiO2 Ratio ABG HCO3 ABG O2 Saturation ABG O2 Content ABG Base Excess A-a Gradient Oxyhemoglobin Carboxyhemoglobin Methemoglobin Reduced Hemoglobin Total Hemoglobin O2 Delivery Device O2 Liters/Min Minute Volume Vent Rate Vent Mode FiO2 Tidal Volume PEEP Peak Inspir Pressure Pressure Support Sodium Potassium Chloride Carbon Dioxide Anion Gap BUN Creatinine Estim Creat Clear Calc Estimated GFR Glucose POC Capillary Glucose 243 H 156 H 209 H Calcium Phosphorus Magnesium Total Bilirubin AST ALT Alkaline Phosphatase Total Protein Albumin 09/05/24 09/05/24 09/05/24 00:25 05:07 05:27 WBC RBC Hgb Hct MCV MCH MCHC RDW Plt Count MPV Puncture Site Right radial ABG pH 7.482 H ABG pCO2 31.9 L ABG pO2 60.5 L ABG PO2/FiO2 Ratio 2.02 ABG HCO3 23.3 ABG O2 Saturation 93.1 L ABG O2 Content 11.4 L ABG Base Excess 0.2 A-a Gradient 115.9 Oxyhemoglobin 90.9 Carboxyhemoglobin 0.4 Methemoglobin 0.1 Reduced Hemoglobin 8.6 H Total Hemoglobin 8.9 L O2 Delivery Device Ventilator O2 Liters/Min Not Reportable Minute Volume 6.6 Vent Rate Not Reportable Vent Mode Asv FiO2 30 Tidal Volume Not Reportable PEEP 5 Peak Inspir Pressure Not Reportable Pressure Support Not Reportable Sodium Potassium Chloride Carbon Dioxide Anion Gap BUN Creatinine Estim Creat Clear Calc Estimated GFR Glucose POC Capillary Glucose 261 H 296 H Calcium Phosphorus Magnesium Total Bilirubin AST ALT Alkaline Phosphatase Total Protein Albumin 09/05/24 05:43 WBC 9.4 RBC 3.07 L Hgb 7.8 L Hct 26.8 L MCV 87.3 MCH 25.4 L MCHC 29.1 L RDW 19.3 H Plt Count 128 L MPV 12.1 H Puncture Site ABG pH ABG pCO2 ABG pO2 ABG PO2/FiO2 Ratio ABG HCO3 ABG O2 Saturation ABG O2 Content ABG Base Excess A-a Gradient Oxyhemoglobin Carboxyhemoglobin Methemoglobin Reduced Hemoglobin Total Hemoglobin O2 Delivery Device O2 Liters/Min Minute Volume Vent Rate Vent Mode FiO2 Tidal Volume PEEP Peak Inspir Pressure Pressure Support Sodium 135 L Potassium 3.6 Chloride 94 L Carbon Dioxide 23 Anion Gap 18 H BUN 95 H Creatinine 2.59 H Estim Creat Clear Calc 17 Estimated GFR 18 L Glucose 299 H POC Capillary Glucose Calcium 9.3 Phosphorus 3.2 Magnesium 2.5 H Total Bilirubin 0.4 AST 45 H ALT 56 H Alkaline Phosphatase 131 H Total Protein 7.0 Albumin 3.8 Quality VTE Prophylaxis VTE prophylaxis: mechanical ordered and pharmacologic ordered
[2024-09-05] MEDS: INSULIN GLARGINE (*BKC) 100 UNITS/ML 45 UNITS SUB-Q ×2 (08:34→21:21)
[2024-09-05 08:39] LABS: Glucose Point of Care 258 mg/dl (65-105)
--- NOTE | 2024-09-05 10:32 | P.PNNP_ITS ---
Subjective Date/time seen: 09/05/24 10:32 Interval history: Follow-up for acute kidney injury/acute renal failue on chronic kidney disease. Tolerated dialysis treatment yesterday but fluctuating blood flows noted with tunneled HD catheter and given the concern for clotting, treatment ended after 3 hours; a bit more awake at this time with eyes opening and tracking but still not following commands; remains on mechanical ventilation via tracheostomy; off amiiodaraone and levophed gtt with stable hemodynamics and normal sinus rhythm; febrile overnight with a Tmax of 101.1?. Objective Data Vital Signs Vital Signs: Vital Signs Temp Pulse Resp BP Pulse Ox O2 Del Method FiO2 09/05/24 10:21 75 100 Mechanical Ventilation 30 09/05/24 10:00 98.5 F 81 34 H 106/58 L 100 09/05/24 08:28 86 09/05/24 08:12 87 32 H 09/05/24 08:00 88 09/05/24 08:00 98 Mechanical Ventilation 09/05/24 08:00 88 105/58 L 09/05/24 08:00 30 09/05/24 08:00 98.1 F 88 28 H 105/58 L 98 09/05/24 07:58 87 97 Mechanical Ventilation 09/05/24 07:51 89 32 H 09/05/24 07:30 91 113/65 09/05/24 07:00 94 119/70 09/05/24 06:00 85 122/68 09/05/24 06:00 85 09/05/24 06:00 85 28 H 122/68 98 09/05/24 05:30 113/61 09/05/24 05:20 88 119/107 H 09/05/24 05:15 119/107 H 09/05/24 05:01 87 97 Mechanical Ventilation 30 09/05/24 04:00 30 09/05/24 04:00 99 Mechanical Ventilation 30 09/05/24 04:00 80 09/05/24 04:00 78 113/60 09/05/24 04:00 99.9 F H 78 26 H 113/60 99 09/05/24 02:30 99.9 F H 69 98/54 L 09/05/24 02:02 80 98 Mechanical Ventilation 30 09/05/24 02:02 77 23 H 09/05/24 02:00 68 29 H 93/59 L 99 09/05/24 02:00 68 93/59 L 09/05/24 02:00 68 09/05/24 01:45 101.1 F H 70 27 H 104/62 100 09/05/24 01:30 91/52 L 09/05/24 01:15 69 96/51 L 09/05/24 01:15 96/51 L 09/05/24 01:00 72 29 H 76/43 L 100 09/05/24 01:00 72 76/43 L 09/05/24 01:00 72 76/43 L 09/05/24 00:45 82/46 L 09/05/24 00:30 99/54 L 09/05/24 00:20 100.4 F H 09/05/24 00:12 121/71 09/05/24 00:00 100 Mechanical Ventilation 30 09/05/24 00:00 75 09/05/24 00:00 30 09/05/24 00:00 100.4 F H 76 29 H 87/51 L 99 09/04/24 23:45 109/58 L 09/04/24 23:30 86/46 L 09/04/24 23:11 78 99 Mechanical Ventilation 09/04/24 23:00 82 27 H 100/60 98 09/04/24 22:00 83 29 H 103/57 L 97 09/04/24 22:00 83 09/04/24 21:00 82 29 H 96/53 L 95 09/04/24 20:41 85 09/04/24 20:34 86 32 H 09/04/24 20:18 79 99 Mechanical Ventilation 09/04/24 20:11 82 25 H 09/04/24 20:00 30 09/04/24 20:00 97 Mechanical Ventilation 09/04/24 20:00 81 09/04/24 20:00 100.0 F H 82 28 H 107/54 L 98 09/04/24 18:00 82 25 H 102/59 L 96 09/04/24 18:00 84 09/04/24 18:00 100.8 F H 84 27 H 107/57 L 97 09/04/24 17:59 86 107/57 L 09/04/24 17:45 84 91/56 L 09/04/24 17:45 109 H 91/56 L 09/04/24 17:30 80 106/52 L 09/04/24 17:15 81 102/51 L 09/04/24 17:00 80 107/58 L 09/04/24 16:53 79 97 Mechanical Ventilation 09/04/24 16:45 80 103/53 L 09/04/24 16:30 79 103/51 L 09/04/24 16:15 80 104/52 L 09/04/24 16:00 80 09/04/24 16:00 98.5 F 80 28 H 103/54 L 95 09/04/24 16:00 30 09/04/24 16:00 96 Mechanical Ventilation 30 09/04/24 16:00 81 103/54 L 09/04/24 15:47 80 102/48 L 09/04/24 15:45 80 102/48 L 09/04/24 15:30 79 102/53 L 09/04/24 15:15 79 104/52 L 09/04/24 14:59 81 105/54 L Intake/Output Intake/Output: Intake & Output 09/02/24 09/03/24 09/04/24 09/05/24 23:59 23:59 23:59 23:59 Intake Total 1652.2 1189.6 1871.6 1265.3 Output Total 15 3120 1088 Balance 1637.2 -1930.4 783.6 1265.3 Meds/Results Medications: Active Medications Generic Name Dose Route Start Last Admin Trade Name Freq PRN Reason Stop Dose Admin Acetaminophen 650 mg 08/18/24 21:48 09/05/24 08:28 Acetaminophen Elixir 325 Mg/10.15 Ml Udc PO 650 mg Q4H PRN Administration Mild Pain (1-3) or Fever Acetylcysteine 200 mg 08/28/24 08:00 09/05/24 07:49 Acetylcysteine 20% Inhal Soln 800 Mg/4 Ml Vial INHALATION 200 mg Q6HRT TEMI Administration Amiodarone HCl 200 mg 09/04/24 09:00 09/05/24 08:28 Amiodarone Hcl 200 Mg Tablet PO 200 mg Q12H TEMI Administration Aspirin 81 mg 09/02/24 08:00 09/05/24 08:29 Aspirin 81 Mg Chewable Tablet PO 81 mg DAILY@0800 TEMI Administration Dextrose 12.5 gm 08/29/24 15:45 Dextrose 50% 25 Gm/50 Ml Syringe IV PUSH PRN PRN Hypoglycemia Protocol Fluconazole 100 mg 09/05/24 10:13 09/05/24 08:28 Fluconazole 100 Mg Tablet PO 09/08/24 10:12 100 mg QAM TEMI Administration Glucagon 1 mg 08/29/24 15:45 Glucagon For Inj 1 Mg Vial IM PRN PRN Hypoglycemia Protocol Glucose 15 gm 08/29/24 15:45 Glucose Oral Gel 15 Gm Of Glucse In 37.5 Gm Tube PO PRN PRN Hypoglycemia Protocol Heparin Sodium (Porcine) 5,000 units 08/29/24 07:45 09/05/24 13:00 Heparin Sodium 5,000 Units/Ml Vial SUB-Q 5,000 units Q8HR TEMI Administration Albumin Human 50 mls @ 999 mls/hr 08/21/24 06:28 09/04/24 18:41 Albutein IVPB 09/20/24 06:27 Infused Q10M PRN Infusion HYPOTENSION Dextrose 1,000 mls @ 100 mls/hr 08/29/24 15:45 Dextrose 5% 1,000 Ml IVPB PRN PRN Hypoglycemia Protocol Norepinephrine Bitartrate 8 mg in 250 mls @ 1.875 mls/hr 09/05/24 01:00 09/05/24 14:00 Levophed 8 Mg/D5w 250 Ml IV CONT 1 mcg/min .Q24H TEMI 1.88 mls/hr Titration Protocol 1 MCG/MIN Insulin Aspart 4 - 8 units 08/20/24 21:05 09/05/24 12:15 Insulin Aspart (*Bkc) 100 Units/Ml SUB-Q Not Given Q4HR TEMI Protocol Insulin Glargine 45 units 09/05/24 09:00 09/05/24 08:34 Insulin Glargine (*Bkc) 100 Units/Ml SUB-Q 45 units Q12H TEMI Administration Ipratropium [place] 0.5 mg 08/29/24 12:22 09/04/24 20:11 Ipratropium Br 0.02% Inh Soln 0.5 Mg/2.5 Ml Vial INHALATION 0.5 mg Q6HRT PRN Administration Wheezing Levalbuterol HCl 1.25 mg 08/29/24 14:00 09/05/24 07:50 Levalbuterol Neb 1.25 Mg/3 Ml INHALATION 1.25 mg Q6HRT TMEI Administration Levalbuterol HCl 1.25 mg 08/29/24 12:22 08/29/24 12:20 Levalbuterol Neb 1.25 Mg/3 Ml INHALATION 1.25 mg Q6HRT PRN Administration Wheezing Midodrine 10 mg 09/03/24 11:00 09/05/24 11:01 Midodrine Hcl 10 Mg Tablet PO 10 mg Q8H TEMI Administration Multi-Ingred Cream/Lotion/Oil/Oint 1 applic 08/18/24 09:00 09/05/24 08:28 Mineral Oil/White Petrolatum Ointment EACH EYE 1 applic Q12HR TEMI Administration Neomycin/Polymyxin/Bacitracin 1 applic 09/02/24 12:25 09/05/24 08:31 Neomycin/Polymyxin/Bacitracin Ointment 15 Gm Tube TOPICAL 1 applic Q12H TEMI Administration Pantoprazole Sodium 40 mg 08/28/24 21:00 09/05/24 08:28 Pantoprazole Sodium Iv 40 Mg Vial IV PUSH 40 mg Q12HR TEMI Administration Polyethylene Glycol 17 gm 09/05/24 09:00 09/05/24 11:02 Polyethylene Glycol 3350 17 Gm Powd.Pack PO 17 gm DAILY TEMI Administration Senna/Docusate Sodium 1 tab 09/05/24 21:00 Senna/Docusate Sodium Tablet PO HS TEMI Sodium Chloride 10 ml 08/19/24 22:00 09/05/24 13:00 Central Line Flush IV PUSH 10 ml Q8HR TEMI Administration Sodium Chloride 20 ml 08/19/24 18:43 Central Line Flush IV PUSH PRN PRN after blood draws Radiology Results: ITS Impressions Chest CTA 08/15/24 11:11 IMPRESSION: No pulmonary embolus. No thoracic aortic dissection. Right upper lobe infiltrate with patchy bilateral airspace disease, likely inflammatory/congestive rather than infectious. Small bilateral pleural effusions with adjacent atelectasis. Renal Ultrasound 08/19/24 14:10 IMPRESSION: No hydronephrosis or renal calculi. Findings suggesting medical renal disease. Findings within the upper pole of the right kidney consistent with patient's history, as detailed above. Chest/Abdomen/Pelvis CT 08/23/24 09:58 IMPRESSION: CHEST: 1. Bilateral pneumonia which is slightly decreased compared to previous study. Bilateral pleural effusion more on the right side. ABDOMEN/PELVIS: 1. No evidence of appendicitis, diverticulitis or intestinal obstruction. 2. Bilateral tiny kidney stones. 3. Hepatomegaly. 4. No evidence of ileus seen. ADDENDUM: 08/23/24 1042 Possibility of mass in the right kidney upper pole cannot be excluded. Abdomen X-Ray 08/23/24 16:53 IMPRESSION: 1. Dobbhoff type nasoenteric feeding tube with distal tip projecting over the gastric fundus. Venous Doppler Study 08/30/24 15:18 IMPRESSION: Negative bilateral lower extremity venous US. No deep vein thrombosis. Head CT 09/01/24 10:03 IMPRESSION: 1. No acute intracranial process. 2. Age-related changes including moderate diffuse volume loss and moderate scattered white matter attenuation consistent with chronic small vessel ischemic disease. 3. Unchanged bilateral otomastoiditis effusions. Chest X-Ray 09/05/24 05:41 Impression: 1: Persistent bilateral airspace disease without significant change compared with 09/04/2024. Differential diagnosis includes edema and pneumonia. Labs Labs: Laboratory Tests 09/05/24 05:43 09/05/24 05:43 Calcium 9.3 Phosphorus 3.2 Magnesium 2.5 H Total Bilirubin 0.4 AST 45 H ALT 56 H Alkaline Phosphatase 131 H Total Protein 7.0 Albumin 3.8
[2024-09-05] MEDS: polyethylene glycoL 3350 17 GM POWD.PACK PO (11:02)
[2024-09-05 11:29] LABS: Glucose Point of Care 197 mg/dl (65-105)
--- NOTE | 2024-09-05 13:01 | PM.IMPN ---
Progress Note: A&P Assessment and Plan (1) DVT (deep venous thrombosis): Qualifiers: DVT location: lower extremity Affected thrombotic vein of extremity: tibial Chronicity: acute Laterality: bilateral Qualified Code(s): I82.443 - Acute embolism and thrombosis of tibial vein, bilateral Code(s): I82.409 - Acute embolism and thrombosis of unspecified deep veins of unspecified lower extremity Status: Resolved Assessment and Plan: 08/20: Bilateral venous Dopplers obtained due to swelling in the legs. Ultrasound showed Bilateral [id number] deep venous thrombosis in the left and right posterior tibial veins. Patient was initially started on heparin infusion which was discontinued on 08/28 due to drop in hemoglobin 08/28/2024: Patient dropped hemoglobin to 6.9, on heparin infusion for DVTs bilaterally -have asked the bedside RN to hold heparin infusion -appreciate surgery evaluation and recommendations, will hold off IVC filter placement, repeat venous Dopplers on 08/30/2024 negative for bilateral lower extremity DVT. -continue prophylactic heparin SQ 08/30: Bilateral lower extremity venous Dopplers : Negative bilateral lower extremity venous US. No deep vein thrombosis. (2) Anemia: Qualifiers: Anemia type: due to chronic kidney disease Chronic kidney disease stage: stage 3 (moderate) Chronic kidney disease stage 3 subtype: unspecified whether 3a or 3b Qualified Code(s): N18.30 - Chronic kidney disease, stage 3 unspecified; D63.1 - Anemia in chronic kidney disease Code(s): D64.9 - Anemia, unspecified Status: Acute Assessment and Plan: 08/28: Patient dropped her hemoglobin to 6.9 this morning -patient is on heparin infusion for her bilateral lower extremity DVTs -have asked the bedside RN to hold heparin infusion -08/28: Transfused 1 unit of packed RBCs -09/05: Hemoglobin slightly trending down this morning, will continue to monitor -continue subQ heparin (prophylactic dose) (3) Acute respiratory failure with hypoxia: Code(s): J96.01 - Acute respiratory failure with hypoxia Status: Acute Assessment and Plan: Acute Respiratory failure secondary to combination of pneumonia and congestive heart failure 08/18: Intubated Repeat CT chest 08/18 MPRESSION: 1. Significant interval progression in an lobar pneumonia along with increasing small bilateral pleural effusions. Patient has elevated procalcitonin and BNP she is positive on intake output balance but her echocardiogram shows normal biventricular size and systolic function Continue Bronchodilators 08/16/2024: Blood cultures negative x2. 08/21/2024: Sputum culture growing MRSA Urine Legionella antigen, mycoplasma pneumonia antibody and urine pneumococcal antigen negative Continue Dialysis to remove fluid, discussed with Nephrology Status post vancomycin cefepime azithromycin (antibiotics ended on 08/27/2024) -Chest x-ray and ABGs reviewed -continue Mucomyst 08/29: Status post 7 days vancomycin and meropenem 08/31: PEG tube to be placed 09-03: Tracheostomy placed -09/04: Placed patient on pressure support ventilation 04/22, tolerated for 1 hour, after which she was tachypneic and was switched to ASV mode of ventilation. Will place her back on CMV in the evening or if she does not tolerate ASV. 09/05: Patient tolerated ASV all through the day yesterday and through the night. Will switch to pressure support ventilation 02/20. Tolerating well and adequate tidal volumes. Will switch to ASV if patient tires out, is tachycardic, tachypnea or hypoxic (4) Non-ST elevation myocardial infarction (NSTEMI): Code(s): I21.4 - Non-ST elevation (NSTEMI) myocardial infarction Status: Acute Assessment and Plan: History of coronary disease status post PCI in the past now presented with elevated troponin. -Cardiology following -Other heart medications on hold due to low blood pressure -Statin on hold due to elevated LFTs. -No plan for cardiac catheterization at this time. -continue aspirin 81 mg (5) Type 2 diabetes mellitus: Code(s): E11.9 - Type 2 diabetes mellitus without complications Status: Chronic Assessment and Plan: Sliding scale insulin 08/29: Blood sugars in the 400s despite being Lantus 50 units q.12 hours. Patient was started on insulin infusion on Lantus was discontinued -09/04: Will transition insulin infusion to long-acting insulin Lantus and high-dose sliding scale, -09/05: Increase Lantus (6) Renal failure: Qualifiers: Renal failure chronicity: acute on chronic Acute renal failure type: unspecified Chronic kidney disease stage: stage 3 (moderate) Chronic kidney disease stage 3 subtype: unspecified whether 3a or 3b Qualified Code(s): N17.9 - Acute kidney failure, unspecified; N18.30 - Chronic kidney disease, stage 3 unspecified Code(s): N19 - Unspecified kidney failure Status: Acute Assessment and Plan: Patient presented with creatinine of 1.5. Baseline creatinine unknown She has suprapubic catheter. As per son patient has had a renal tumor which was being monitored and plan was to start radiation therapy by her urology CT scan showed Subtle 2.5 cm mass at the upper pole of the right kidney consistent with provided history of renal tumor. Calcification is at the bilateral kidneys which appear linear and likely atherosclerotic although could not exclude nonobstructing nephrolithiasis. No hydronephrosis in either kidney. Diuretics were held and patient was given albumin bolus Creatinine continue to increase with poor urine output. After discussion with patient's family and sizing machine operator decision was made to initiate dialysis. 08/19 dialysis catheter was placed and patient was dialyzed 1 L fluid was removed Monitor urine output electrolytes and creatinine Dialysis per Nephrology -09/02: Tunneled dialysis placed -09/03: Tunnel dialysis catheter was nonfunctioning this morning, alteplase has been dwelled in the catheter. Later in the day temporary dialysis catheter was removed, triple-lumen central line was inserted and placed above the tunnel dialysis catheter in the IVC. Once this was done the tunnel dialysis catheter was functioning fine (7) Pneumonia: Qualifiers: Laterality: bilateral Lung location: lower lobe of lung Pneumonia type: due to methicillin-resistant Staphylococcus aureus (MRSA) Qualified Code(s): J15.212 - Pneumonia due to Methicillin resistant Staphylococcus aureus Code(s): J18.9 - Pneumonia, unspecified organism Status: Acute Assessment and Plan: See above (8) Kidney mass: Code(s): N28.89 - Other specified disorders of kidney and ureter Status: Acute Assessment and Plan: Patient's son reports history of kidney mass which is being monitored as it was too big to be removed without total nephrectomy. He states that patient was supposed to get radiation therapy in a month or so before she fractured her ankle. CT scan shows 2.5 cm renal mass on the right side and no hydronephrosis. No intervention at this time (9) Septic shock: Code(s): A41.9 - Sepsis, unspecified organism; R65.21 - Severe sepsis with septic shock Status: Acute Assessment and Plan: Patient requires Levophed mainly when she is receiving dialysis -target SBP > 90 mmHg Status post antibiotics -patient on midodrine (10) Ileus: Code(s): K56.7 - Ileus, unspecified Status: Acute Assessment and Plan: RESOLVED 08/23 Dobbhoff placed tube feeds resume 08/31: PEG tube inserted by GI Patient tolerating tube feeds -continue MiraLax and docusate sodium (11) Atrial fibrillation with RVR: Code(s): I48.91 - Unspecified atrial fibrillation Status: Acute Assessment and Plan: Patient went into AFib with RVR after hemodialysis.. She was started on amiodarone infusion. She has converted to sinus bradycardia, amiodarone was discontinued on 08/26/2024 Currently off heparin infusion due to anemia 08/30: Patient went to AFib RVR during dialysis, with rates in the 140s to 150s, started patient on amiodarone bolus and infusion, will let the infusion complete -continue prophylactic heparin SQ -patient was into AFib RVR with dialysis, also requires norepinephrine during dialysis. Patient has been started couple of times on amiodarone infusion and converts to sinus rhythm after dialysis and amiodarone drip has to be discontinued. -09/03 patient flipped back into AFib RVR and had to be restarted on amiodarone infusion -09/04: Started on amiodarone 200 mg PO Q12H and wean the amiodarone infusion to off, patient currently in sinus rhythm, rate controlled. Off amiodarone infusion (12) Encephalopathy: Code(s): G93.40 - Encephalopathy, unspecified Status: Acute Assessment and Plan: Patient was on Versed and fentanyl infusion for many days. She also has renal failure which may lead to accumulation -started on propofol infusion -off propofol patient becomes tachypneic and dyssynchronous with the ventilator leading her to desaturate -08/26/2024: CT scan of the brain No intracranial hemorrhage, mass, or acute infarct.Atrophy and chronic white matter changes. -ammonia levels within normal limits -08/29: propofol has been switched to Precedex, to allow patient to wake up -09/01: CT brain with no acute intracranial process, age-related changes, unchanged bilateral otomastoiditis effusion -patient has been off Precedex infusion since 08/31., not on any sedation medication 09/05: More awake this morning, eyes wide open, tracking, acknowledges examiner in the room, blinks to threat. Does not follow any commands at this time Plan DVT prophylaxis -heparin subQ Stress ulcer prophylaxis - Protonix to q.12 hours Nutrition -tolerating tube feeds Code Status - Full Code Subjective Date/time seen: 09/05/24 13:01 Interval history: Comfortable at bedside On Trach tube Review of Systems Review of Systems: 12 systems were reviewed and are negative except for as per HPI. ROS unobtainable: Yes unobtainable due to endotracheal tube, unobtainable due to medical condition and unobtainable due to mental status Exam Narrative: General: Trached and ventilation HEENT: Pupils equal and reactive, sclera is clear, tracheostomy in place, upper lip puncture wound noted and covered with triple antibiotic appointment Lungs/Chest: Trachea central Coarse BS B/L, bilateral rales, no wheezing, adequate air entry Cardiac: RRR. Normal S1 S2. No murmurs Abdomen: Soft, nontender, nondistended, hypoactive bowel sounds Extremities: Edema improving, palpable pedal pulse : Butt in place Neurologic: Currently intubated, not on any sedation, patient more awake this morning, eyes are wide open, tracks, blinks to threat. Does not follow any commands. She does withdraw to pain stimuli Objective Data Vital Signs Vital Signs: Vital Signs - 24 hr 09/04/24 13:02 09/04/24 13:50 09/04/24 14:00 Temperature Pulse Rate 75 75 77 Respiratory Rate Blood Pressure 103/55 L Pulse Oximetry 98 Oxygen Delivery Mechanical Ventilation Fraction of Inspired Oxygen 30 09/04/24 14:00 09/04/24 14:24 09/04/24 14:24 Temperature 100.4 F H Pulse Rate 77 78 Respiratory Rate 27 H 24 H Blood Pressure 109/62 103/61 Pulse Oximetry 97 97 Oxygen Delivery Fraction of Inspired Oxygen 30 09/04/24 14:59 09/04/24 15:15 09/04/24 15:30 Temperature Pulse Rate 81 79 79 Respiratory Rate Blood Pressure 105/54 L 104/52 L 102/53 L Pulse Oximetry Oxygen Delivery Fraction of Inspired Oxygen 09/04/24 15:45 09/04/24 15:47 09/04/24 16:00 Temperature Pulse Rate 80 80 81 Respiratory Rate Blood Pressure 102/48 L 102/48 L 103/54 L Pulse Oximetry Oxygen Delivery Fraction of Inspired Oxygen 09/04/24 16:00 09/04/24 16:00 09/04/24 16:00 Temperature 98.5 F Pulse Rate 80 Respiratory Rate 28 H Blood Pressure 103/54 L Pulse Oximetry 96 95 Oxygen Delivery Mechanical Ventilation Fraction of Inspired Oxygen 30 30 09/04/24 16:00 09/04/24 16:15 09/04/24 16:30 Temperature Pulse Rate 80 80 79 Respiratory Rate Blood Pressure 104/52 L 103/51 L Pulse Oximetry Oxygen Delivery Fraction of Inspired Oxygen 09/04/24 16:45 09/04/24 16:53 09/04/24 17:00 Temperature Pulse Rate 80 79 80 Respiratory Rate Blood Pressure 103/53 L 107/58 L Pulse Oximetry 97 Oxygen Delivery Mechanical Ventilation Fraction of Inspired Oxygen 30 09/04/24 17:15 09/04/24 17:30 09/04/24 17:45 Temperature Pulse Rate 81 80 109 H Respiratory Rate Blood Pressure 102/51 L 106/52 L 91/56 L Pulse Oximetry Oxygen Delivery Fraction of Inspired Oxygen 09/04/24 17:45 09/04/24 17:59 09/04/24 18:00 Temperature 100.8 F H Pulse Rate 84 86 84 Respiratory Rate 27 H Blood Pressure 91/56 L 107/57 L 107/57 L Pulse Oximetry 97 Oxygen Delivery Fraction of Inspired Oxygen 09/04/24 18:00 09/04/24 18:00 09/04/24 20:00 Temperature 100.0 F H Pulse Rate 84 82 82 Respiratory Rate 25 H 28 H Blood Pressure 102/59 L 107/54 L Pulse Oximetry 96 98 Oxygen Delivery Fraction of Inspired Oxygen 09/04/24 20:00 09/04/24 20:00 09/04/24 20:00 Temperature Pulse Rate 81 Respiratory Rate Blood Pressure Pulse Oximetry 97 Oxygen Delivery Mechanical Ventilation Fraction of Inspired Oxygen 30 30 09/04/24 20:11 09/04/24 20:18 09/04/24 20:34 Temperature Pulse Rate 82 79 86 Respiratory Rate 25 H 32 H Blood Pressure Pulse Oximetry 99 Oxygen Delivery Mechanical Ventilation Fraction of Inspired Oxygen 30 09/04/24 20:41 09/04/24 21:00 09/04/24 22:00 Temperature Pulse Rate 85 82 83 Respiratory Rate 29 H Blood Pressure 96/53 L Pulse Oximetry 95 Oxygen Delivery Fraction of Inspired Oxygen 09/04/24 22:00 09/04/24 23:00 09/04/24 23:11 Temperature Pulse Rate 83 82 78 Respiratory Rate 29 H 27 H Blood Pressure 103/57 L 100/60 Pulse Oximetry 97 98 99 Oxygen Delivery Mechanical Ventilation Fraction of Inspired Oxygen 30 09/04/24 23:30 09/04/24 23:45 09/05/24 00:00 Temperature 100.4 F H Pulse Rate 76 Respiratory Rate 29 H Blood Pressure 86/46 L 109/58 L 87/51 L Pulse Oximetry 99 Oxygen Delivery Fraction of Inspired Oxygen 09/05/24 00:00 09/05/24 00:00 09/05/24 00:00 Temperature Pulse Rate 75 Respiratory Rate Blood Pressure Pulse Oximetry 100 Oxygen Delivery Mechanical Ventilation Fraction of Inspired Oxygen 30 30 09/05/24 00:12 09/05/24 00:20 09/05/24 00:30 Temperature 100.4 F H Pulse Rate Respiratory Rate Blood Pressure 121/71 99/54 L Pulse Oximetry Oxygen Delivery Fraction of Inspired Oxygen 09/05/24 00:45 09/05/24 01:00 09/05/24 01:00 Temperature Pulse Rate 72 72 Respiratory Rate Blood Pressure 82/46 L 76/43 L 76/43 L Pulse Oximetry Oxygen Delivery Fraction of Inspired Oxygen 09/05/24 01:00 09/05/24 01:15 09/05/24 01:15 Temperature Pulse Rate 72 69 Respiratory Rate 29 H Blood Pressure 76/43 L 96/51 L 96/51 L Pulse Oximetry 100 Oxygen Delivery Fraction of Inspired Oxygen 09/05/24 01:30 09/05/24 01:45 09/05/24 02:00 Temperature 101.1 F H Pulse Rate 70 68 Respiratory Rate 27 H Blood Pressure 91/52 L 104/62 Pulse Oximetry 100 Oxygen Delivery Fraction of Inspired Oxygen 09/05/24 02:00 09/05/24 02:00 09/05/24 02:02 Temperature Pulse Rate 68 68 77 Respiratory Rate 29 H 23 H Blood Pressure 93/59 L 93/59 L Pulse Oximetry 99 Oxygen Delivery Fraction of Inspired Oxygen 09/05/24 02:02 09/05/24 02:30 09/05/24 04:00 Temperature 99.9 F H 99.9 F H Pulse Rate 80 69 78 Respiratory Rate 26 H Blood Pressure 98/54 L 113/60 Pulse Oximetry 98 99 Oxygen Delivery Mechanical Ventilation Fraction of Inspired Oxygen 30 04/20/25 04:00 09/05/24 04:00 09/05/24 04:00 Temperature Pulse Rate 78 80 Respiratory Rate Blood Pressure 113/60 Pulse Oximetry 99 Oxygen Delivery Mechanical Ventilation Fraction of Inspired Oxygen 30 09/05/24 04:00 09/05/24 05:01 09/05/24 05:15 Temperature Pulse Rate 87 Respiratory Rate Blood Pressure 119/107 H Pulse Oximetry 97 Oxygen Delivery Mechanical Ventilation Fraction of Inspired Oxygen 30 30 09/05/24 05:20 09/05/24 05:30 09/05/24 06:00 Temperature Pulse Rate 88 85 Respiratory Rate 28 H Blood Pressure 119/107 H 113/61 122/68 Pulse Oximetry 98 Oxygen Delivery Fraction of Inspired Oxygen 09/05/24 06:00 09/05/24 06:00 09/05/24 07:00 Temperature Pulse Rate 85 85 94 Respiratory Rate Blood Pressure 122/68 119/70 Pulse Oximetry Oxygen Delivery Fraction of Inspired Oxygen 09/05/24 07:30 09/05/24 07:51 09/05/24 07:58 Temperature Pulse Rate 91 89 87 Respiratory Rate 32 H Blood Pressure 113/65 Pulse Oximetry 97 Oxygen Delivery Mechanical Ventilation Fraction of Inspired Oxygen 30 09/05/24 08:00 09/05/24 08:00 09/05/24 08:00 Temperature 98.1 F Pulse Rate 88 88 Respiratory Rate 28 H Blood Pressure 105/58 L 105/58 L Pulse Oximetry 98 Oxygen Delivery Fraction of Inspired Oxygen 30 09/05/24 08:00 09/05/24 08:00 09/05/24 08:12 Temperature Pulse Rate 88 87 Respiratory Rate 32 H Blood Pressure Pulse Oximetry 98 Oxygen Delivery Mechanical Ventilation Fraction of Inspired Oxygen 09/05/24 08:28 09/05/24 10:00 09/05/24 10:00 Temperature 98.5 F Pulse Rate 86 80 81 Respiratory Rate 34 H Blood Pressure 106/58 L 106/58 L Pulse Oximetry 100 Oxygen Delivery Fraction of Inspired Oxygen 09/05/24 10:00 09/05/24 10:21 09/05/24 11:00 Temperature Pulse Rate 81 75 72 Respiratory Rate Blood Pressure 82/50 L Pulse Oximetry 100 Oxygen Delivery Mechanical Ventilation Fraction of Inspired Oxygen 30 09/05/24 11:15 09/05/24 12:00 09/05/24 12:00 Temperature Pulse Rate 70 79 Respiratory Rate Blood Pressure 83/56 L Pulse Oximetry Oxygen Delivery Fraction of Inspired Oxygen 30 09/05/24 12:00 09/05/24 12:00 09/05/24 12:00 Temperature 98.3 F Pulse Rate 79 79 Respiratory Rate 27 H Blood Pressure 122/67 122/67 Pulse Oximetry 100 Oxygen Delivery Mechanical Ventilation Fraction of Inspired Oxygen Intake/Output Intake/Output: Intake & Output 09/02/24 09/03/24 09/04/24 09/05/24 23:59 23:59 23:59 23:59 Intake Total 1652.2 1189.6 1871.6 1255.9 Output Total 15 3120 1088 Balance 1637.2 -1930.4 783.6 1255.9 Meds/Results Medications: Active Medications Generic Name Dose Route Start Last Admin Trade Name Freq PRN Reason Stop Dose Admin Acetaminophen 650 mg 08/18/24 21:48 09/05/24 08:28 Acetaminophen Elixir 325 Mg/10.15 Ml Udc PO 650 mg Q4H PRN Administration Mild Pain (1-3) or Fever Acetylcysteine 200 mg 08/28/24 08:00 09/05/24 07:49 Acetylcysteine 20% Inhal Soln 800 Mg/4 Ml Vial INHALATION 200 mg Q6HRT TEMI Administration Amiodarone HCl 200 mg 09/04/24 09:00 09/05/24 08:28 Amiodarone Hcl 200 Mg Tablet PO 200 mg Q12H TEMI Administration Aspirin 81 mg 09/02/24 08:00 09/05/24 08:29 Aspirin 81 Mg Chewable Tablet PO 81 mg DAILY@0800 TEMI Administration Dextrose 12.5 gm 08/29/24 15:45 Dextrose 50% 25 Gm/50 Ml Syringe IV PUSH PRN PRN Hypoglycemia Protocol Fluconazole 100 mg 09/05/24 10:13 09/05/24 08:28 Fluconazole 100 Mg Tablet PO 09/08/24 10:12 100 mg QAM TEMI Administration Glucagon 1 mg 08/29/24 15:45 Glucagon For Inj 1 Mg Vial IM PRN PRN Hypoglycemia Protocol Glucose 15 gm 08/29/24 15:45 Glucose Oral Gel 15 Gm Of Glucse In 37.5 Gm Tube PO PRN PRN Hypoglycemia Protocol Heparin Sodium (Porcine) 5,000 units 08/29/24 07:45 09/05/24 13:00 Heparin Sodium 5,000 Units/Ml Vial SUB-Q 5,000 units Q8HR TEMI Administration Albumin Human 50 mls @ 999 mls/hr 08/21/24 06:28 09/04/24 18:41 Albutein IVPB 09/20/24 06:27 Infused Q10M PRN Infusion HYPOTENSION Dextrose 1,000 mls @ 100 mls/hr 08/29/24 15:45 Dextrose 5% 1,000 Ml IVPB PRN PRN Hypoglycemia Protocol Norepinephrine Bitartrate 8 mg in 250 mls @ 3.75 mls/hr 09/05/24 01:00 09/05/24 12:00 Levophed 8 Mg/D5w 250 Ml IV CONT 3 mcg/min .Q24H TEMI 5.63 mls/hr Titration Protocol 2 MCG/MIN Insulin Aspart 4 - 8 units 08/20/24 21:05 09/05/24 12:15 Insulin Aspart (*Bkc) 100 Units/Ml SUB-Q Not Given Q4HR TEMI Protocol Insulin Glargine 45 units 09/05/24 09:00 09/05/24 08:34 Insulin Glargine (*Bkc) 100 Units/Ml SUB-Q 45 units Q12H TEMI Administration Ipratropium [place] 0.5 mg 08/29/24 12:22 09/04/24 20:11 Ipratropium Br 0.02% Inh Soln 0.5 Mg/2.5 Ml Vial INHALATION 0.5 mg Q6HRT PRN Administration Wheezing Levalbuterol HCl 1.25 mg 08/29/24 14:00 09/05/24 07:50 Levalbuterol Neb 1.25 Mg/3 Ml INHALATION 1.25 mg Q6HRT TEMI Administration Levalbuterol HCl 1.25 mg 08/29/24 12:22 08/29/24 12:20 Levalbuterol Neb 1.25 Mg/3 Ml INHALATION 1.25 mg Q6HRT PRN Administration Wheezing Midodrine 10 mg 09/03/24 11:00 09/05/24 11:01 Midodrine Hcl 10 Mg Tablet PO 10 mg Q8H TEMI Administration Multi-Ingred Cream/Lotion/Oil/Oint 1 applic 08/18/24 09:00 09/05/24 08:28 Mineral Oil/White Petrolatum Ointment EACH EYE 1 applic Q12HR TEMI Administration Neomycin/Polymyxin/Bacitracin 1 applic 09/02/24 12:25 09/05/24 08:31 Neomycin/Polymyxin/Bacitracin Ointment 15 Gm Tube TOPICAL 1 applic Q12H TEMI Administration Pantoprazole Sodium 40 mg 08/28/24 21:00 09/05/24 08:28 Pantoprazole Sodium Iv 40 Mg Vial IV PUSH 40 mg Q12HR TEMI Administration Polyethylene Glycol 17 gm 09/05/24 09:00 09/05/24 11:02 Polyethylene Glycol 3350 17 Gm Powd.Pack PO 17 gm DAILY TEMI Administration Senna/Docusate Sodium 1 tab 09/05/24 21:00 Senna/Docusate Sodium Tablet PO HS TEMI Sodium Chloride 10 ml 08/19/24 22:00 09/05/24 13:00 Central Line Flush IV PUSH 10 ml Q8HR TEMI Administration Sodium Chloride 20 ml 08/19/24 18:43 Central Line Flush IV PUSH PRN PRN after blood draws Radiology Results: ITS Impressions Chest CTA 08/15/24 11:11 IMPRESSION: No pulmonary embolus. No thoracic aortic dissection. Right upper lobe infiltrate with patchy bilateral airspace disease, likely inflammatory/congestive rather than infectious. Small bilateral pleural effusions with adjacent atelectasis. Renal Ultrasound 08/19/24 14:10 IMPRESSION: No hydronephrosis or renal calculi. Findings suggesting medical renal disease. Findings within the upper pole of the right kidney consistent with patient's history, as detailed above. Chest/Abdomen/Pelvis CT 08/23/24 09:58 IMPRESSION: CHEST: 1. Bilateral pneumonia which is slightly decreased compared to previous study. Bilateral pleural effusion more on the right side. ABDOMEN/PELVIS: 1. No evidence of appendicitis, diverticulitis or intestinal obstruction. 2. Bilateral tiny kidney stones. 3. Hepatomegaly. 4. No evidence of ileus seen. ADDENDUM: 08/23/24 1042 Possibility of mass in the right kidney upper pole cannot be excluded. Abdomen X-Ray 08/23/24 16:53 IMPRESSION: 1. Dobbhoff type nasoenteric feeding tube with distal tip projecting over the gastric fundus. Venous Doppler Study 08/30/24 15:18 IMPRESSION: Negative bilateral lower extremity venous US. No deep vein thrombosis. Head CT 09/01/24 10:03 IMPRESSION: 1. No acute intracranial process. 2. Age-related changes including moderate diffuse volume loss and moderate scattered white matter attenuation consistent with chronic small vessel ischemic disease. 3. Unchanged bilateral otomastoiditis effusions. Chest X-Ray 09/05/24 05:41 Impression: 1: Persistent bilateral airspace disease without significant change compared with 09/04/2024. Differential diagnosis includes edema and pneumonia. Labs Labs: Laboratory Results - last 24 hr 09/04/24 09/04/24 09/05/24 16:09 20:43 00:25 WBC RBC Hgb Hct MCV MCH MCHC RDW Plt Count MPV Puncture Site ABG pH ABG pCO2 ABG pO2 ABG PO2/FiO2 Ratio ABG HCO3 ABG O2 Saturation ABG O2 Content ABG Base Excess A-a Gradient Oxyhemoglobin Carboxyhemoglobin Methemoglobin Reduced Hemoglobin Total Hemoglobin O2 Delivery Device O2 Liters/Min Minute Volume Vent Rate Vent Mode FiO2 Tidal Volume PEEP Peak Inspir Pressure Pressure Support Sodium Potassium Chloride Carbon Dioxide Anion Gap BUN Creatinine Estim Creat Clear Calc Estimated GFR Glucose POC Capillary Glucose 156 H 209 H 261 H Calcium Phosphorus Magnesium Total Bilirubin AST ALT Alkaline Phosphatase Total Protein Albumin 09/05/24 09/05/24 09/05/24 05:07 05:27 05:43 WBC 9.4 RBC 3.07 L Hgb 7.8 L Hct 26.8 L MCV 87.3 MCH 25.4 L MCHC 29.1 L RDW 19.3 H Plt Count 128 L MPV 12.1 H Puncture Site Right radial ABG pH 7.482 H ABG pCO2 31.9 L ABG pO2 60.5 L ABG PO2/FiO2 Ratio 2.02 ABG HCO3 23.3 ABG O2 Saturation 93.1 L ABG O2 Content 11.4 L ABG Base Excess 0.2 A-a Gradient 115.9 Oxyhemoglobin 90.9 Carboxyhemoglobin 0.4 Methemoglobin 0.1 Reduced Hemoglobin 8.6 H Total Hemoglobin 8.9 L O2 Delivery Device Ventilator O2 Liters/Min Not Reportable Minute Volume 6.6 Vent Rate Not Reportable Vent Mode Asv FiO2 30 Tidal Volume Not Reportable PEEP 5 Peak Inspir Pressure Not Reportable Pressure Support Not Reportable Sodium 135 L Potassium 3.6 Chloride 94 L Carbon Dioxide 23 Anion Gap 18 H BUN 95 H Creatinine 2.59 H Estim Creat Clear Calc 17 Estimated GFR 18 L Glucose 299 H POC Capillary Glucose 296 H Calcium 9.3 Phosphorus 3.2 Magnesium 2.5 H Total Bilirubin 0.4 AST 45 H ALT 56 H Alkaline Phosphatase 131 H Total Protein 7.0 Albumin 3.8 09/05/24 09/05/24 08:33 11:27 WBC RBC Hgb Hct MCV MCH MCHC RDW Plt Count MPV Puncture Site ABG pH ABG pCO2 ABG pO2 ABG PO2/FiO2 Ratio ABG HCO3 ABG O2 Saturation ABG O2 Content ABG Base Excess A-a Gradient Oxyhemoglobin Carboxyhemoglobin Methemoglobin Reduced Hemoglobin Total Hemoglobin O2 Delivery Device O2 Liters/Min Minute Volume Vent Rate Vent Mode FiO2 Tidal Volume PEEP Peak Inspir Pressure Pressure Support Sodium Potassium Chloride Carbon Dioxide Anion Gap BUN Creatinine Estim Creat Clear Calc Estimated GFR Glucose POC Capillary Glucose 258 H 197 H Calcium Phosphorus Magnesium Total Bilirubin AST ALT Alkaline Phosphatase Total Protein Albumin Quality VTE Prophylaxis VTE prophylaxis: mechanical ordered and pharmacologic ordered
[2024-09-05 15:54] LABS: Glucose Point of Care 172 mg/dl (65-105)
[2024-09-05] MEDS: IPRATROPIUM BR 0.02% INH SOLN 0.5 MG/2.5 ML VIAL INHALATION (20:20)
[2024-09-05] MEDS: SENNA/DOCUSATE SODIUM TABLET 1 TAB PO (21:19)
[2024-09-05 21:37] LABS: Glucose Point of Care 223 mg/dl (65-105)
[2024-09-06] VITALS (56 sets, daily range): BP systolic 77–147; BP diastolic 44–100; PULSE 71–137; RESP 28–34; TEMP 36.5–37.1; O2SAT 99–100
[2024-09-06 02:02] LABS: Glucose Point of Care 188 mg/dl (65-105)
[2024-09-06] MEDS: NEOMYCIN/POLYMYXIN/BACITRACIN OINTMENT 15 GM TUBE 1 APPLIC TOPICAL ×2 (02:06→11:48)
[2024-09-06] MEDS: ACETYLCYSTEINE 20% INHAL SOLN 800 MG/4 ML VIAL 200 MG INHALATION ×2 (02:22→08:02)
[2024-09-06] MEDS: LEVALBUTEROL NEB 1.25 MG/3 ML INHALATION ×4 (02:22→20:14)
[2024-09-06] MEDS: MIDODRINE HCL 10 MG TABLET PO ×3 (03:30→18:50)
[2024-09-06 05:17] LABS: Alveolar/Arterial O2 Gradient 90.1 mmHg; Base Excess ABG -0.4 mEq/l (+/-2.0); Carboxyhemoglobin 0.6 % THb (0-2.0); Fractional Inspired Oxygen 30 %; HCO3 ABG 22.9 mEq/l (22.0-26.0); Methemoglobin ABG 0.3 %THb (0-1.5); Oxygen Content ABG 13.4 %vol (16.0-22.0); Oxygen Saturation ABG 97.1 % (95.0-100.0); Oxyhemoglobin 96.1 % THb (90.0-100.0); PCO2 ABG 32.3 mmHg (35.0-45.0); PO2 ABG 85.9 mmHg (80.0-100.0); PO2 FiO2 Ratio Arterial Blood 2.86 %; Site Drawn RIGHT RADIAL; Total Hemoglobin 9.8 g/dL (12.0-18.0); pH ABG 7.468 (7.350-7.450)
[2024-09-06 05:18] LABS: Arterial Blood Gas PEEP 5 cmH2O; Arterial Blood Gas Vent Mode ASV; Device VENTILATOR; Modified Allen's Test Unable to perform
[2024-09-06 05:37] LABS: Hematocrit 27.1 % (37.0-47.0); Hemoglobin 7.9 g/dL (12.0-15.0); Immature Platelet Fraction Pct 6.6 % (0.9-11.2); Mean Corpuscular HGB Conc 29.2 g/dl (32-36); Mean Corpuscular Hemoglobin 25.2 pg (26-34); Mean Corpuscular Volume 86.6 fl (80-100); Platelet Count Result 127 k/mm3 (150-375); Red Blood Count 3.13 M/mm3 (4.2-5.4); White Blood Count 8.6 K/mm3 (4.5-10.0)
[2024-09-06 05:56] LABS: Alanine Aminotransferase 44 U/L (6-35); Albumin Level 3.7 g/dL (3.5-5.1); Alkaline Phosphatase 122 U/L (38-126); Anion Gap 18 mmol/L (4-12); Aspartate Amino Transferase 30 U/L (14-36); Bilirubin,Total 0.4 mg/dL (0.2-1.3); Carbon Dioxide 23 mmol/L (22-30); Chloride 93 mmol/L (98-107); Glucose 153 mg/dL (65-110); Magnesium 2.8 mg/dL (1.6-2.3); Phosphorus 4.7 mg/dL (2.5-4.5); Potassium 4.2 mmol/L (3.4-5.0); Sodium 134 mmol/L (137-145)
[2024-09-06 06:03] LABS: Blood Urea Nitrogen 136 mg/dL (7-17); Estimated CRCL calculation 13 ml/min; Estimated Glomerular Filt Rate 13
[2024-09-06] MEDS: CENTRAL LINE FLUSH 10 ML IV PUSH ×2 (06:47→13:18)
[2024-09-06] MEDS: HEPARIN SODIUM 5,000 UNITS/ML VIAL 5000 UNITS SUB-Q ×3 (06:47→21:00)
[2024-09-06] MEDS: AMIODARONE HCL 200 MG TABLET PO ×2 (08:24→21:49)
[2024-09-06] MEDS: FLUCONAZOLE 100 MG TABLET PO (08:24)
[2024-09-06] MEDS: PANTOPRAZOLE SODIUM IV 40 MG VIAL IV PUSH (08:24)
[2024-09-06] MEDS: polyethylene glycoL 3350 17 GM POWD.PACK PO (08:24)
[2024-09-06] MEDS: ASPIRIN 81 MG CHEWABLE TABLET PO (08:24)
[2024-09-06] MEDS: MINERAL OIL/WHITE PETROLATUM OINTMENT 1 APPLIC EACH EYE ×2 (08:25→21:49)
[2024-09-06] MEDS: INSULIN GLARGINE (*BKC) 100 UNITS/ML 45 UNITS SUB-Q ×2 (08:28→21:30)
--- NOTE | 2024-09-06 08:40 | P.PNINT_ITS ---
Progress Note: A&P Assessment and Plan (1) DVT (deep venous thrombosis): Qualifiers: DVT location: lower extremity Affected thrombotic vein of extremity: tibial Chronicity: acute Laterality: bilateral Qualified Code(s): I82.443 - Acute embolism and thrombosis of tibial vein, bilateral Code(s): I82.409 - Acute embolism and thrombosis of unspecified deep veins of unspecified lower extremity Status: Resolved Assessment and Plan: 08/20: Bilateral venous Dopplers obtained due to swelling in the legs. Ultrasound showed Bilateral kybig-kyk-ishn deep venous thrombosis in the left and right posterior tibial veins. Patient was initially started on heparin infusion which was discontinued on 08/28 due to drop in hemoglobin 08/28/2024: Patient dropped hemoglobin to 6.9, on heparin infusion for DVTs bilaterally -have asked the bedside RN to hold heparin infusion -appreciate surgery evaluation and recommendations, will hold off IVC filter placement, repeat venous Dopplers on 08/30/2024 negative for bilateral lower extremity DVT. -continue prophylactic heparin SQ 08/30: Bilateral lower extremity venous Dopplers : Negative bilateral lower extremity venous US. No deep vein thrombosis. (2) Anemia: Qualifiers: Anemia type: due to chronic kidney disease Chronic kidney disease stage: stage 3 (moderate) Chronic kidney disease stage 3 subtype: unspecified whether 3a or 3b Qualified Code(s): N18.30 - Chronic kidney disease, stage 3 unspecified; D63.1 - Anemia in chronic kidney disease Code(s): D64.9 - Anemia, unspecified Status: Acute Assessment and Plan: 08/28: Patient dropped her hemoglobin to 6.9 this morning -patient is on heparin infusion for her bilateral lower extremity DVTs -have asked the bedside RN to hold heparin infusion -08/28: Transfused 1 unit of packed RBCs -09/05: Hemoglobin slightly trending down this morning, will continue to monitor -continue subQ heparin (prophylactic dose) (3) Acute respiratory failure with hypoxia: Code(s): J96.01 - Acute respiratory failure with hypoxia Status: Acute Assessment and Plan: Acute Respiratory failure secondary to combination of pneumonia and congestive heart failure 08/18: Intubated Repeat CT chest 08/18 MPRESSION: 1. Significant interval progression in an lobar pneumonia along with increasing small bilateral pleural effusions. Patient has elevated procalcitonin and BNP she is positive on intake output balance but her echocardiogram shows normal biventricular size and systolic function Continue Bronchodilators 08/16/2024: Blood cultures negative x2. 08/21/2024: Sputum culture growing MRSA Urine Legionella antigen, mycoplasma pneumonia antibody and urine pneumococcal antigen negative Continue Dialysis to remove fluid, discussed with Nephrology Status post vancomycin cefepime azithromycin (antibiotics ended on 08/27/2024) -Chest x-ray and ABGs reviewed -continue Mucomyst 08/29: Status post 7 days vancomycin and meropenem 08/31: PEG tube to be placed 09/03: Tracheostomy placed -09/04: Placed patient on pressure support ventilation 12/5, tolerated for 1 hour, after which she was tachypneic and was switched to ASV mode of ventilation. Will place her back on CMV in the evening or if she does not tolerate ASV. 09/05: Patient tolerated ASV all through the day yesterday and through the night. Will switch to pressure support ventilation 10/5. Tolerating well and adequate tidal volumes. Will switch to ASV if patient tires out, is tachycardic, tachypnea or hypoxic 09/06: Tolerated ASV all through the day yesterday and through the night. Have placed patient on pressure support ventilation 10/5. She had been tolerating it well. Will switch to ASV patient tires out (4) Non-ST elevation myocardial infarction (NSTEMI): Code(s): I21.4 - Non-ST elevation (NSTEMI) myocardial infarction Status: Acute Assessment and Plan: History of coronary disease status post PCI in the past now presented with elevated troponin. -Cardiology following -Other heart medications on hold due to low blood pressure -Statin on hold due to elevated LFTs. -No plan for cardiac catheterization at this time. -continue aspirin 81 mg (5) Type 2 diabetes mellitus: Code(s): E11.9 - Type 2 diabetes mellitus without complications Status: Chronic Assessment and Plan: Sliding scale insulin 08/29: Blood sugars in the 400s despite being Lantus 50 units q.12 hours. Patient was started on insulin infusion on Lantus was discontinued -09/04: Will transition insulin infusion to long-acting insulin Lantus and high-dose sliding scale, -09/05: Increase Lantus (6) Renal failure: Qualifiers: Renal failure chronicity: acute on chronic Acute renal failure type: unspecified Chronic kidney disease stage: stage 3 (moderate) Chronic kidney disease stage 3 subtype: unspecified whether 3a or 3b Qualified Code(s): N17.9 - Acute kidney failure, unspecified; N18.30 - Chronic kidney disease, stage 3 unspecified Code(s): N19 - Unspecified kidney failure Status: Acute Assessment and Plan: Patient presented with creatinine of 1.5. Baseline creatinine unknown She has suprapubic catheter. As per son patient has had a renal tumor which was being monitored and plan was to start radiation therapy by her urology CT scan showed Subtle 2.5 cm mass at the upper pole of the right kidney consistent with provided history of renal tumor. Calcification is at the bilateral kidneys which appear linear and likely atherosclerotic although could not exclude nonobstructing nephrolithiasis. No hydronephrosis in either kidney. Diuretics were held and patient was given albumin bolus Creatinine continue to increase with poor urine output. After discussion with patient's family and mailing machine assistant decision was made to initiate dialysis. 08/19 dialysis catheter was placed and patient was dialyzed 1 L fluid was removed Monitor urine output electrolytes and creatinine Dialysis per Nephrology -09/02: Tunneled dialysis placed -09/03: Tunnel dialysis catheter was nonfunctioning this morning, alteplase has been dwelled in the catheter. Later in the day temporary dialysis catheter was removed, triple-lumen central line was inserted and placed above the tunnel dialysis catheter in the IVC. Once this was done the tunnel dialysis catheter was functioning fine (7) Pneumonia: Qualifiers: Laterality: bilateral Lung location: lower lobe of lung Pneumonia t ype: due to methicillin-resistant Staphylococcus aureus (MRSA) Qualified Code(s): J15.212 - Pneumonia due to Methicillin resistant Staphylococcus aureus Code(s): J18.9 - Pneumonia, unspecified organism Status: Acute Assessment and Plan: See above (8) Kidney mass: Code(s): N28.89 - Other specified disorders of kidney and ureter Status: Acute Assessment and Plan: Patient's son reports history of kidney mass which is being monitored as it was too big to be removed without total nephrectomy. He states that patient was supposed to get radiation therapy in a month or so before she fractured her ankle. CT scan shows 2.5 cm renal mass on the right side and no hydronephrosis. No intervention at this time (9) Septic shock: Code(s): A41.9 - Sepsis, unspecified organism; R65.21 - Severe sepsis with septic shock Status: Acute Assessment and Plan: Patient requires Levophed mainly when she is receiving dialysis -target SBP > 90 mmHg Status post antibiotics -patient on midodrine (10) Ileus: Code(s): K56.7 - Ileus, unspecified Status: Acute Assessment and Plan: RESOLVED 08/23 Dobbhoff placed tube feeds resume 08/31: PEG tube inserted by GI Patient tolerating tube feeds -continue MiraLax and docusate sodium (11) Atrial fibrillation with RVR: Code(s): I48.91 - Unspecified atrial fibrillation Status: Acute Assessment and Plan: Patient went into AFib with RVR after hemodialysis.. She was started on amiodarone infusion. She has converted to sinus bradycardia, amiodarone was discontinued on 08/26/2024 Currently off heparin infusion due to anemia 08/30: Patient went to AFib RVR during dialysis, with rates in the 140s to 150s, started patient on amiodarone bolus and infusion, will let the infusion complete -continue prophylactic heparin SQ -patient was into AFib RVR with dialysis, also requires norepinephrine during dialysis. Patient has been started couple of times on amiodarone infusion and converts to sinus rhythm after dialysis and amiodarone drip has to be discont inued. -09/03 patient flipped back into AFib RVR and had to be restarted on amiodarone infusion -09/04: Started on amiodarone 200 mg PO Q12H and wean the amiodarone infusion to off, patient currently in sinus rhythm, rate controlled. Off amiodarone infusion (12) Encephalopathy: Code(s): G93.40 - Encephalopathy, unspecified Status: Acute Assessment and Plan: Patient was on Versed and fentanyl infusion for many days. She also has renal failure which may lead to accumulation -started on propofol infusion -off propofol patient becomes tachypneic and dyssynchronous with the ventilator leading her to desaturate -08/26/2024: CT scan of the brain No intracranial hemorrhage, mass, or acute infarct.Atrophy and chronic white matter changes. -ammonia levels within normal limits -08/29: propofol has been switched to Precedex, to allow patient to wake up -09/01: CT brain with no acute intracranial process, age-related changes, unchanged bilateral otomastoiditis effusion -patient has been off Precedex infusion since 08/31., not on any sedation medication 09/05 & 09/06: More awake this morning, eyes wide open, tracking, acknowledges examiner in the room, blinks to threat. Does not follow any commands at this time Plan DVT prophylaxis -heparin subQ Stress ulcer prophylaxis - Protonix to q.12 hours Nutrition -tolerating tube feeds Code Status - Full Code Total Critical Care Time - 32 minutes 09/03: Discussed with Bacilio, he is aware that the patient is in the OR for tracheostomy, will possibly get dialyzed later this afternoon. Care coordination following and looking into LTAC placement 09/02: Discussed with patient's sons Bacilio and Geoffrey. Updated with patient's condition and plan of care. The consented to tracheostomy to be done on 09/03 09/01: Discussed with patient's is Luke flynn and Geoffrey, updated them with patient's condition and plan of care. They are aware that she got a PEG tube placed on 08/31, scheduled for tunneled dialysis catheter on 09/02 and tracheostomy on 09/03. Care coordination has met with them regarding LTAC facilities, I answered all the questions 08/28: Had a long discussion with both Luke flynn and Geoffrey. I updated them with patient's condition plan of care. They understand that the patient has multiple medical problems but requested that she gets a tracheostomy and PEG tube placement as they want to give her a complete chance to recover Due to a high probability of clinically significant, life threatening deterioration, the patient required my highest level of preparedness to intervene emergently and I personally spent this critical care time directly and personally managing the patient. This critical care time included obtaining a history; examining the patient; pulse oximetry; ordering and review of studies; arranging urgent treatment with development of a management plan; evaluation of patient's response to treatment; frequent reassessment; and discussions with other providers. It was exclusive of separately billable procedures and treating other patients and teaching time. Please see Assessment and Plan section and the rest of the note for further information on patient assessment and treatment. This dictation may have been done utilizing a voice recognition system. Attempts have been made to correct errors. However, there may be uncorrected grammatical, spelling, and recognitions errors present. Subjective Date/time seen: 09/06/24 08:40 Interval history: 08/18: Intubated 08/19 temporary dialysis catheter placed patient was dialyzed 08/21 vent into AFib with RVR. Converted to sinus Steve with amiodarone 08/23 Dobbhoff tube inserted 08/28: Transfuse 1 unit of PRBC 08/31: PEG tube placed 09/02: Tunneled dialysis catheter 09/03: Tracheostomy tube placement 09/06/2024: Patient seen and examined the ICU, is on mechanical ventilation via tracheostomy, ASV mode of ventilation, peep of 5, 30% FiO2, patient has been off all sedation since 08/28/2024 and off Precedex infusion since 08/31. She is more awake this morning, eyes are open, tracks, grimaces to pain, does not withdrawal to pain stimulus. Does not follow simple commands. She does blink to threat. Off amiodarone infusion, off norepinephrine infusion, afebrile, hemodynamically stable. WBC count has normalized Review of Systems Review of Systems: ROS unobtainable: Yes unobtainable due to endotracheal tube, unobtainable due to medical condition and unobtainable due to mental status Exam Narrative: General: On mechanical ventilation via tracheostomy tube, in no acute distress HEENT: Pupils equal and reactive, sclera is clear, tracheostomy in place, upper lip puncture wound noted and covered with triple antibiotic appointment Lungs/Chest: Trachea central Coarse BS B/L, bilateral rales, no wheezing, adequate air entry Cardiac: RRR. Normal S1 S2. No murmurs Abdomen: Soft, nontender, nondistended, hypoactive bowel sounds Extremities: Edema improving, palpable pedal pulse : Butt in place Neurologic: On mechanical ventilation, not on any sedation, patient more awake this morning, eyes are wide open, tracks, blinks to threat. Does not follow any commands. Grimaces to pain but does not withdraw to pain stimulus Objective Data Vital Signs Vital Signs: Vital Signs - 24 hr 09/05/24 10:00 09/05/24 10:00 09/05/24 10:00 Temperature 98.5 F Pulse Rate 80 81 81 Respiratory Rate 34 H Blood Pressure 106/58 L 106/58 L Pulse Oximetry 100 Oxygen Delivery Fraction of Inspired Oxygen 09/05/24 10:21 09/05/24 11:00 09/05/24 11:15 Temperature Pulse Rate 75 72 70 Respiratory Rate Blood Pressure 82/50 L 83/56 L Pulse Oximetry 100 Oxygen Delivery Mechanical Ventilation Fraction of Inspired Oxygen 30 09/05/24 12:00 09/05/24 12:00 09/05/24 12:00 Temperature 98.3 F Pulse Rate 79 79 Respiratory Rate 27 H Blood Pressure 122/67 Pulse Oximetry 100 Oxygen Delivery Fraction of Inspired Oxygen 30 09/05/24 12:00 09/05/24 12:00 09/05/24 13:00 Temperature Pulse Rate 79 78 Respiratory Rate Blood Pressure 122/67 124/70 Pulse Oximetry Oxygen Delivery Mechanical Ventilation Fraction of Inspired Oxygen 09/05/24 14:00 09/05/24 14:00 09/05/24 14:00 Temperature 97.8 F Pulse Rate 77 77 77 Respiratory Rate 28 H Blood Pressure 124/66 124/66 Pulse Oximetry 100 Oxygen Delivery Fraction of Inspired Oxygen 09/05/24 15:19 09/05/24 15:23 09/05/24 15:36 Temperature Pulse Rate 72 77 Respiratory Rate 30 H Blood Pressure Pulse Oximetry 100 Oxygen Delivery Mechanical Ventilation Mechanical Ventilation Fraction of Inspired Oxygen 30 09/05/24 15:36 09/05/24 16:00 09/05/24 16:00 Temperature Pulse Rate 78 78 Respiratory Rate Blood Pressure 122/64 Pulse Oximetry Oxygen Delivery Fraction of Inspired Oxygen 30 09/05/24 16:00 09/05/24 17:34 09/05/24 18:00 Temperature 98.5 F Pulse Rate 78 78 72 Respiratory Rate 30 H Blood Pressure 122/64 101/78 Pulse Oximetry 100 100 Oxygen Delivery Mechanical Ventilation Fraction of Inspired Oxygen 30 09/05/24 18:00 09/05/24 18:00 09/05/24 19:47 Temperature 98.5 F Pulse Rate 72 72 72 Respiratory Rate 33 H 33 H Blood Pressure 101/78 Pulse Oximetry 98 98 Oxygen Delivery Mechanical Ventilation Fraction of Inspired Oxygen 30 09/05/24 19:49 09/05/24 19:49 09/05/24 20:00 Temperature 98.3 F Pulse Rate 69 68 Respiratory Rate 30 H Blood Pressure 116/61 Pulse Oximetry 100 Oxygen Delivery Fraction of Inspired Oxygen 30 09/05/24 20:00 09/05/24 20:20 09/05/24 20:20 Temperature Pulse Rate 70 69 72 Respiratory Rate 31 H Blood Pressure 110/55 L Pulse Oximetry 100 Oxygen Delivery Mechanical Ventilation Fraction of Inspired Oxygen 30 09/05/24 20:43 09/05/24 21:19 09/05/24 22:00 Temperature Pulse Rate 72 77 68 Respiratory Rate 29 H Blood Pressure Pulse Oximetry Oxygen Delivery Fraction of Inspired Oxygen 09/05/24 22:00 09/05/24 22:00 09/05/24 23:11 Temperature Pulse Rate 80 79 81 Respiratory Rate 29 H Blood Pressure 121/58 L 119/58 L Pulse Oximetry 100 99 Oxygen Delivery Mechanical Ventilation Fraction of Inspired Oxygen 30 09/06/24 00:00 09/06/24 00:00 09/06/24 00:00 Temperature Pulse Rate 75 75 Respiratory Rate 28 H Blood Pressure Pulse Oximetry 99 Oxygen Delivery Mechanical Ventilation Fraction of Inspired Oxygen 30 30 09/06/24 00:00 09/06/24 00:00 09/06/24 02:00 Temperature 98.1 F Pulse Rate 80 80 81 Respiratory Rate 28 H Blood Pressure 120/57 L 120/57 L Pulse Oximetry 100 Oxygen Delivery Fraction of Inspired Oxygen 09/06/24 02:00 09/06/24 02:00 09/06/24 02:22 Temperature 98.6 F Pulse Rate 80 73 79 Respiratory Rate 28 H 31 H Blood Pressure 120/57 L 98/53 L Pulse Oximetry 100 Oxygen Delivery Fraction of Inspired Oxygen 09/06/24 02:22 09/06/24 02:30 09/06/24 04:00 Temperature Pulse Rate 78 78 81 Respiratory Rate 32 H 34 H Blood Pressure Pulse Oximetry 100 100 Oxygen Delivery Mechanical Ventilation Mechanical Ventilation Fraction of Inspired Oxygen 30 30 09/06/24 04:00 09/06/24 04:00 09/06/24 04:00 Temperature 98.3 F Pulse Rate 81 81 Respiratory Rate 34 H Blood Pressure 110/56 L Pulse Oximetry 100 Oxygen Delivery Fraction of Inspired Oxygen 30 09/06/24 04:00 09/06/24 05:11 09/06/24 06:00 Temperature Pulse Rate 81 74 86 Respiratory Rate Blood Pressure 110/56 L Pulse Oximetry 100 Oxygen Delivery Mechanical Ventilation Fraction of Inspired Oxygen 30 09/06/24 06:00 09/06/24 06:00 09/06/24 07:57 Temperature 98.4 F Pulse Rate 86 86 Respiratory Rate 30 H Blood Pressure 126/64 126/64 Pulse Oximetry 100 Oxygen Delivery Fraction of Inspired Oxygen 30 09/06/24 08:00 09/06/24 08:00 09/06/24 08:02 Temperature 98.4 F Pulse Rate 80 83 81 Respiratory Rate 30 H Blood Pressure 117/64 117/64 Pulse Oximetry 99 99 Oxygen Delivery Mechanical Ventilation Fraction of Inspired Oxygen 30 09/06/24 08:02 09/06/24 08:18 09/06/24 08:24 Temperature Pulse Rate 81 82 81 Respiratory Rate 32 H 32 H Blood Pressure Pulse Oximetry Oxygen Delivery Fraction of Inspired Oxygen Intake/Output Intake/Output: Intake & Output 09/03/24 09/04/24 09/05/24 09/06/24 23:59 23:59 23:59 23:59 Intake Total 1189.6 1871.6 1989.1 360 Output Total 3120 1088 50 15 Balance -1930.4 783.6 1939.1 345 Meds/Results Medications: Active Medications Generic Name Dose Route Start Last Admin Trade Name Freq PRN Reason Stop Dose Admin Acetaminophen 650 mg 08/18/24 21:48 09/05/24 08:28 Acetaminophen Elixir 325 Mg/10.15 Ml Udc PO 650 mg Q4H PRN Administration Mild Pain (1-3) or Fever Acetylcysteine 200 mg 08/28/24 08:00 09/06/24 08:02 Acetylcysteine 20% Inhal Soln 800 Mg/4 Ml Vial INHALATION 200 mg Q6HRT TEMI Administration Amiodarone HCl 200 mg 09/04/24 09:00 09/06/24 08:24 Amiodarone Hcl 200 Mg Tablet PO 200 mg Q12H TEMI Administration Aspirin 81 mg 09/02/24 08:00 09/06/24 08:24 Aspirin 81 Mg Chewable Tablet PO 81 mg DAILY@0800 TEMI Administration Dextrose 12.5 gm 08/29/24 15:45 Dextrose 50% 25 Gm/50 Ml Syringe IV PUSH PRN PRN Hypoglycemia Protocol Epoetin Oliver-epbx 10,000 units 09/06/24 18:58 Epoetin Oliver-Epbx 10,000 Units/Ml Vial IV PUSH 09/06/24 18:59 ONCE ONE Fluconazole 100 mg 09/05/24 10:13 09/06/24 08:24 Fluconazole 100 Mg Tablet PO 09/08/24 10:12 100 mg QAM TEMI Administration Glucagon 1 mg 08/29/24 15:45 Glucagon For Inj 1 Mg Vial IM PRN PRN Hypoglycemia Protocol Glucose 15 gm 08/29/24 15:45 Glucose Oral Gel 15 Gm Of Glucse In 37.5 Gm Tube PO PRN PRN Hypoglycemia Protocol Heparin Sodium (Porcine) 5,000 units 08/29/24 07:45 09/06/24 06:47 Heparin Sodium 5,000 Units/Ml Vial SUB-Q 5,000 units Q8HR TEMI Administration Albumin Human 50 mls @ 999 mls/hr 08/21/24 06:28 09/04/24 18:41 Albutein IVPB 09/20/24 06:27 Infused Q10M PRN Infusion HYPOTENSION Dextrose 1,000 mls @ 100 mls/hr 08/29/24 15:45 Dextrose 5% 1,000 Ml IVPB PRN PRN Hypoglycemia Protocol Norepinephrine Bitartrate 8 mg in 250 mls @ 0 mls/hr 09/05/24 01:00 09/06/24 08:00 Levophed 8 Mg/D5w 250 Ml IV CONT 0 mcg/min .Q0M TEMI 0 mls/hr Titration Protocol Insulin Aspart 4 - 8 units 08/20/24 21:05 09/06/24 08:28 Insulin Aspart (*Bkc) 100 Units/Ml SUB-Q Not Given Q4HR TEMI Protocol Insulin Glargine 45 units 09/05/24 09:00 09/06/24 08:28 Insulin Glargine (*Bkc) 100 Units/Ml SUB-Q 45 units Q12H TEMI Administration Ipratropium Williams 0.5 mg 08/29/24 12:22 09/05/24 20:20 Ipratropium Br 0.02% Inh Soln 0.5 Mg/2.5 Ml Vial INHALATION 0.5 mg Q6HRT PRN Administration Wheezing Levalbuterol HCl 1.25 mg 08/29/24 14:00 09/06/24 08:02 Levalbuterol Neb 1.25 Mg/3 Ml INHALATION 1.25 mg Q6HRT TEMI Administration Levalbuterol HCl 1.25 mg 08/29/24 12:22 08/29/24 12:20 Levalbuterol Neb 1.25 Mg/3 Ml INHALATION 1.25 mg Q6HRT PRN Administration Wheezing Midodrine 10 mg 09/03/24 11:00 09/06/24 03:30 Midodrine Hcl 10 Mg Tablet PO 10 mg Q8H TEMI Administration Multi-Ingred Cream/Lotion/Oil/Oint 1 applic 08/18/24 09:00 09/06/24 08:25 Mineral Oil/White Petrolatum Ointment EACH EYE 1 applic Q12HR TEMI Administration Neomycin/Polymyxin/Bacitracin 1 applic 09/02/24 12:25 09/06/24 02:06 Neomycin/Polymyxin/Bacitracin Ointment 15 Gm Tube TOPICAL 1 applic Q12H TEMI Administration Pantoprazole Sodium 40 mg 08/28/24 21:00 09/06/24 08:24 Pantoprazole Sodium Iv 40 Mg Vial IV PUSH 40 mg Q12HR TEMI Administration Polyethylene Glycol 17 gm 09/05/24 09:00 09/06/24 08:24 Polyethylene Glycol 3350 17 Gm Powd.Pack PO 17 gm DAILY TEMI Administration Senna/Docusate Sodium 1 tab 09/05/24 21:00 09/05/24 21:19 Senna/Docusate Sodium Tablet PO 1 tab HS TEMI Administration Sodium Chloride 10 ml 08/19/24 22:00 09/06/24 06:47 Central Line Flush IV PUSH 10 ml Q8HR TEMI Administration Sodium Chloride 20 ml 08/19/24 18:43 Central Line Flush IV PUSH PRN PRN after blood draws Radiology Results: ITS Impressions Chest CTA 08/15/24 11:11 IMPRESSION: No pulmonary embolus. No thoracic aortic dissection. Right upper lobe infiltrate with patchy bilateral airspace disease, likely inflammatory/congestive rather than infectious. Small bilateral pleural effusions with adjacent atelectasis. Renal Ultrasound 08/19/24 14:10 IMPRESSION: No hydronephrosis or renal calculi. Findings suggesting medical renal disease. Findings within the upper pole of the right kidney consistent with patient's history, as detailed above. Chest/Abdomen/Pelvis CT 08/23/24 09:58 IMPRESSION: CHEST: 1. Bilateral pneumonia which is slightly decreased compared to previous study. Bilateral pleural effusion more on the right side. ABDOMEN/PELVIS: 1. No evidence of appendicitis, diverticulitis or intestinal obstruction. 2. Bilateral tiny kidney stones. 3. Hepatomegaly. 4. No evidence of ileus seen. ADDENDUM: 08/23/24 1042 Possibility of mass in the right kidney upper pole cannot be excluded. Abdomen X-Ray 08/23/24 16:53 IMPRESSION: 1. Dobbhoff type nasoenteric feeding tube with distal tip projecting over the gastric fundus. Venous Doppler Study 08/30/24 15:18 IMPRESSION: Negative bilateral lower extremity venous US. No deep vein thrombosis. Head CT 09/01/24 10:03 IMPRESSION: 1. No acute intracranial process. 2. Age-related changes including moderate diffuse volume loss and moderate scattered white matter attenuation consistent with chronic small vessel ischemic disease. 3. Unchanged bilateral otomastoiditis effusions. Chest X-Ray 09/06/24 06:12 Impression: Small pleural effusions and probable mild to moderate pulmonary edema pattern, improved especially in the right lung. Support tubes, as above. Labs Labs: Laboratory Results - last 24 hr 09/05/24 09/05/24 09/05/24 11:27 15:51 21:20 WBC RBC Hgb Hct MCV MCH MCHC RDW Plt Count MPV % Immature Plt Fraction Puncture Site ABG pH ABG pCO2 ABG pO2 ABG PO2/FiO2 Ratio ABG HCO3 ABG O2 Saturation ABG O2 Content ABG Base Excess A-a Gradient Oxyhemoglobin Carboxyhemoglobin Methemoglobin Reduced Hemoglobin Total Hemoglobin O2 Delivery Device O2 Liters/Min Minute Volume Vent Rate Vent Mode FiO2 Tidal Volume PEEP Peak Inspir Pressure Pressure Support Sodium Potassium Chloride Carbon Dioxide Anion Gap BUN Creatinine Estim Creat Clear Calc Estimated GFR Glucose POC Capillary Glucose 197 H 172 H 223 H Calcium Phosphorus Magnesium Total Bilirubin AST ALT Alkaline Phosphatase Total Protein Albumin 09/06/24 09/06/24 09/06/24 02:00 04:55 04:59 WBC 8.6 RBC 3.13 L Hgb 7.9 L Hct 27.1 L MCV 86.6 MCH 25.2 L MCHC 29.2 L RDW 19.0 H Plt Count 127 L MPV 12.0 H % Immature Plt Fraction 6.6 Puncture Site Right radial ABG pH 7.468 H ABG pCO2 32.3 L ABG pO2 85.9 ABG PO2/FiO2 Ratio 2.86 ABG HCO3 22.9 ABG O2 Saturation 97.1 ABG O2 Content 13.4 L ABG Base Excess -0.4 A-a Gradient 90.1 Oxyhemoglobin 96.1 Carboxyhemoglobin 0.6 Methemoglobin 0.3 Reduced Hemoglobin 3.0 Total Hemoglobin 9.8 L O2 Delivery Device Ventilator O2 Liters/Min Not Reportable Minute Volume 6.0 Vent Rate Not Reportable Vent Mode Asv FiO2 30 Tidal Volume Not Reportable PEEP 5 Peak Inspir Pressure Not Reportable Pressure Support Not Reportable Sodium 134 L Potassium 4.2 Chloride 93 L Carbon Dioxide 23 Anion Gap 18 H BUN 136 H D Creatinine 3.36 H Estim Creat Clear Calc 13 Estimated GFR 13 L Glucose 153 H POC Capillary Glucose 188 H Calcium 10.0 Phosphorus 4.7 H Magnesium 2.8 H Total Bilirubin 0.4 AST 30 ALT 44 H Alkaline Phosphatase 122 Total Protein 7.0 Albumin 3.7 Quality VTE Prophylaxis VTE prophylaxis: mechanical ordered and pharmacologic ordered
[2024-09-06 09:24] LABS: Glucose Point of Care 183 mg/dl (65-105)
--- NOTE | 2024-09-06 10:37 | PCFNICU ---
ICU Rounding Note: Pt current nutrition is Nepro @ 40 ml/h with Gianluca BID (90 kcal, 2.5 g protein, arginine+glutamine for wounds), Prsource TF BID (90 kcal, 20 g protein each.) Nutrition recommendation: No new recommendations. Continue with current orders. Agree with orders Last recorded weight is 80.4 kg. Bowel Motility: +1 BM 09/05/24 Labs Reviewed: Hgb 7.9, Hct 27.1, Na 134, GFR 13, BUN 136, Cre 3.36, Glu 153 Meds Noted: No sedation. No pressors. Novolog, Lantus, prevacid, senna, docusate, miralax Skin: Deep tissue to buttocks, unstageable to heel, split lip Additional Notes: Tolerating TF well. Nepro @ 40 ml/h provides 1584 kcal, 72 g protein, 640 ml free water. With Prosource BID total 1760, 112 g protein. Meets needs @ 22 kcal/kg, 1.4 g protein/kg. Adequate for needs. Discharge to LTACH in progress. Following daily in ICU rounds. Monitor intake, wt, labs, skin. Follow up in 5 days. .
[2024-09-06 11:50] LABS: Glucose Point of Care 180 mg/dl (65-105)
[2024-09-06] MEDS: ACETAMINOPHEN ELIXIR 325 MG/10.15 ML UDC 650 MG PO (13:28)
--- NOTE | 2024-09-06 15:23 | P.PNIM_ITS ---
Progress Note: A&P Assessment and Plan (1) DVT (deep venous thrombosis): Qualifiers: DVT location: lower extremity Affected thrombotic vein of extremity: tibial Chronicity: acute Laterality: bilateral Qualified Code(s): I82.443 - Acute embolism and thrombosis of tibial vein, bilateral Code(s): I82.409 - Acute embolism and thrombosis of unspecified deep veins of unspecified lower extremity Status: Resolved Assessment and Plan: 08/20: Bilateral venous Dopplers obtained due to swelling in the legs. Ultrasound showed Bilateral [id number] deep venous thrombosis in the left and right posterior tibial veins. Patient was initially started on heparin infusion which was discontinued on 08/28 due to drop in hemoglobin 08/28/2024: Patient dropped hemoglobin to 6.9, on heparin infusion for DVTs bilaterally -have asked the bedside RN to hold heparin infusion -appreciate surgery evaluation and recommendations, will hold off IVC filter placement, repeat venous Dopplers on 08/30/2024 negative for bilateral lower extremity DVT. -continue prophylactic heparin SQ (2) Anemia: Qualifiers: Anemia type: due to chronic kidney disease Chronic kidney disease stage: stage 3 (moderate) Chronic kidney disease stage 3 subtype: unspecified whether 3a or 3b Qualified Code(s): N18.30 - Chronic kidney disease, stage 3 unspecified; D63.1 - Anemia in chronic kidney disease Code(s): D64.9 - Anemia, unspecified Status: Acute Assessment and Plan: Hb 7.9 from 6.9 s/p 1 unit pRBC monitor (3) Acute respiratory failure with hypoxia: Code(s): J96.01 - Acute respiratory failure with hypoxia Status: Acute Assessment and Plan: Acute Respiratory failure secondary to combination of pneumonia and congestive heart failure now trached and vented completed antibiotics (4) Non-ST elevation myocardial infarction (NSTEMI): Code(s): I21.4 - Non-ST elevation (NSTEMI) myocardial infarction Status: Acute Assessment and Plan: History of coronary disease status post PCI in the past now presented with elevated troponin. -Cardiology following -Other heart medications on hold due to low blood pressure -Statin on hold due to elevated LFTs. -No plan for cardiac catheterization at this time. -continue aspirin 81 mg (5) Type 2 diabetes mellitus: Code(s): E11.9 - Type 2 diabetes mellitus without complications Status: Chronic Assessment and Plan: Sliding scale insulin 08/29: Blood sugars in the 400s despite being Lantus 50 units q.12 hours. Patient was started on insulin infusion on Lantus was discontinued -09/04: Will transition insulin infusion to long-acting insulin Lantus and high-dose sliding scale, -09/05: Increase Lantus (6) Renal failure: Qualifiers: Renal failure chronicity: acute on chronic Acute renal failure type: unspecified Chronic kidney disease stage: stage 3 (moderate) Chronic kidney disease stage 3 subtype: unspecified whether 3a or 3b Qualified Code(s): N17.9 - Acute kidney failure, unspecified; N18.30 - Chronic kidney disease, stage 3 unspecified Code(s): N19 - Unspecified kidney failure Status: Acute Assessment and Plan: Patient presented with creatinine of 1.5. Baseline creatinine unknown She has suprapubic catheter. As per son patient has had a renal tumor which was being monitored and plan was to start radiation therapy by her urology CT scan showed Subtle 2.5 cm mass at the upper pole of the right kidney consistent with provided history of renal tumor. Calcification is at the bilateral kidneys which appear linear and likely atherosclerotic although could not exclude nonobstructing nephrolithiasis. No hydronephrosis in either kidney. Diuretics were held and patient was given albumin bolus Creatinine continue to increase with poor urine output. After discussion with patient's family and natural resources instructor decision was made to initiate dialysis. 08/19 dialysis catheter was placed and patient was dialyzed 1 L fluid was removed Monitor urine output electrolytes and creatinine Dialysis per Nephrology -09/02: Tunneled dialysis placed -09/03: Tunnel dialysis catheter was nonfunctioning this morning, alteplase has been dwelled in the catheter. Later in the day temporary dialysis catheter was removed, triple-lumen central line was inserted and placed above the tunnel dialysis catheter in the IVC. Once this was done the tunnel dialysis catheter was functioning fine (7) Pneumonia: Qualifiers: Laterality: bilateral Lung location: lower lobe of lung Pneumonia type: due to methicillin-resistant Staphylococcus aureus (MRSA) Qualified Code(s): J15.212 - Pneumonia due to Methicillin resistant Staphylococcus aureus Code(s): J18.9 - Pneumonia, unspecified organism Status: Acute Assessment and Plan: See above (8) Kidney mass: Code(s): N28.89 - Other specified disorders of kidney and ureter Status: Acute Assessment and Plan: Patient's son reports history of kidney mass which is being monitored as it was too big to be removed without total nephrectomy. He states that patient was supposed to get radiation therapy in a month or so before she fractured her ankle. CT scan shows 2.5 cm renal mass on the right side and no hydronephrosis. No intervention at this time (9) Septic shock: Code(s): A41.9 - Sepsis, unspecified organism; R65.21 - Severe sepsis with septic shock Status: Acute Assessment and Plan: Patient requires Levophed mainly when she is receiving dialysis -target SBP > 90 mmHg Status post antibiotics -patient on midodrine (10) Ileus: Code(s): K56.7 - Ileus, unspecified Status: Acute Assessment and Plan: RESOLVED 08/23 Dobbhoff placed tube feeds resume 08/31: PEG tube inserted by GI Patient tolerating tube feeds -continue MiraLax and docusate sodium (11) Atrial fibrillation with RVR: Code(s): I48.91 - Unspecified atrial fibrillation Status: Acute Assessment and Plan: Patient went into AFib with RVR after hemodialysis.. Continue Amiodarone 200mg bid s/p amiodarone infusion (12) Encephalopathy: Code(s): G93.40 - Encephalopathy, unspecified Status: Acute Assessment and Plan: Ct head no acute changes continue sedation protocol per training officer Plan DVT prophylaxis -heparin subQ Stress ulcer prophylaxis - Protonix to q.12 hours Nutrition -tolerating tube feeds Code Status - Full Code Subjective Date/time seen: 09/06/24 15:23 Interval history: Comfortable at bedside Trached and on Vent Review of Systems Review of Systems: 12 systems were reviewed and are negativ e except for as per HPI. ROS unobtainable: Yes unobtainable due to endotracheal tube, unobtainable due to medical condition and unobtainable due to mental status Exam Narrative: General: On mechanical ventilation via tracheostomy tube, in no acute distress HEENT: Pupils equal and reactive, sclera is clear, tracheostomy in place, upper lip puncture wound noted and covered with triple antibiotic appointment Lungs/Chest: Trachea central Coarse BS B/L, bilateral rales, no wheezing, adequate air entry Cardiac: RRR. Normal S1 S2. No murmurs Abdomen: Soft, nontender, nondistended, hypoactive bowel sounds Extremities: Edema improving, palpable pedal pulse : Butt in place Neurologic: On mechanical ventilation, not on any sedation, patient more awake this morning, eyes are wide open, tracks, blinks to threat. Does not follow any commands. Grimaces to pain but does not withdraw to pain stimulus Objective Data Vital Signs Vital Signs: Vital Signs - 24 hr 09/05/24 15:36 09/05/24 15:36 09/05/24 16:00 Temperature Pulse Rate 78 Respiratory Rate Blood Pressure 122/64 Pulse Oximetry Oxygen Delivery Mechanical Ventilation Fraction of Inspired Oxygen 30 09/05/24 16:00 09/05/24 16:00 09/05/24 17:34 Temperature 98.5 F Pulse Rate 78 78 78 Respiratory Rate 30 H Blood Pressure 122/64 Pulse Oximetry 100 100 Oxygen Delivery Mechanical Ventilation Fraction of Inspired Oxygen 30 09/05/24 18:00 09/05/24 18:00 09/05/24 18:00 Temperature 98.5 F Pulse Rate 72 72 72 Respiratory Rate 33 H Blood Pressure 101/78 101/78 Pulse Oximetry 98 Oxygen Delivery Fraction of Inspired Oxygen 09/05/24 19:47 09/05/24 19:49 09/05/24 19:49 Temperature Pulse Rate 72 69 Respiratory Rate 33 H Blood Pressure Pulse Oximetry 98 Oxygen Delivery Mechanical Ventilation Fraction of Inspired Oxygen 30 30 09/05/24 20:00 09/05/24 20:00 09/05/24 20:20 Temperature 98.3 F Pulse Rate 68 70 69 Respiratory Rate 30 H 31 H Blood Pressure 116/61 110/55 L Pulse Oximetry 100 Oxygen Delivery Fraction of Inspired Oxygen 09/05/24 20:20 09/05/24 20:43 09/05/24 21:19 Temperature Pulse Rate 72 72 77 Respiratory Rate 29 H Blood Pressure Pulse Oximetry 100 Oxygen Delivery Mechanical Ventilation Fraction of Inspired Oxygen 30 09/05/24 22:00 09/05/24 22:00 09/05/24 22:00 Temperature Pulse Rate 68 80 79 Respiratory Rate 29 H Blood Pressure 121/58 L 119/58 L Pulse Oximetry 100 Oxygen Delivery Fraction of Inspired Oxygen 09/05/24 23:11 09/06/24 00:00 09/06/24 00:00 Temperature Pulse Rate 81 75 75 Respiratory Rate 28 H Blood Pressure Pulse Oximetry 99 99 Oxygen Delivery Mechanical Ventilation Mechanical Ventilation Fraction of Inspired Oxygen 30 30 09/06/24 00:00 09/06/24 00:00 09/06/24 00:00 Temperature 98.1 F Pulse Rate 80 80 Respiratory Rate 28 H Blood Pressure 120/57 L 120/57 L Pulse Oximetry 100 Oxygen Delivery Fraction of Inspired Oxygen 30 09/06/24 02:00 09/06/24 02:00 09/06/24 02:00 Temperature 98.6 F Pulse Rate 81 80 73 Respiratory Rate 28 H Blood Pressure 120/57 L 98/53 L Pulse Oximetry 100 Oxygen Delivery Fraction of Inspired Oxygen 09/06/24 02:22 09/06/24 02:22 09/06/24 02:30 Temperature Pulse Rate 79 78 78 Respiratory Rate 31 H 32 H Blood Pressure Pulse Oximetry 100 Oxygen Delivery Mechanical Ventilation Fraction of Inspired Oxygen 30 09/06/24 04:00 09/06/24 04:00 09/06/24 04:00 Temperature Pulse Rate 81 81 Respiratory Rate 34 H Blood Pressure Pulse Oximetry 100 Oxygen Delivery Mechanical Ventilation Fraction of Inspired Oxygen 30 30 09/06/24 04:00 09/06/24 04:00 09/06/24 05:11 Temperature 98.3 F Pulse Rate 81 81 74 Respiratory Rate 34 H Blood Pressure 110/56 L 110/56 L Pulse Oximetry 100 100 Oxygen Delivery Mechanical Ventilation Fraction of Inspired Oxygen 30 09/06/24 06:00 09/06/24 06:00 09/06/24 06:00 Temperature 98.4 F Pulse Rate 86 86 86 Respiratory Rate 30 H Blood Pressure 126/64 126/64 Pulse Oximetry 100 Oxygen Delivery Fraction of Inspired Oxygen 09/06/24 07:57 09/06/24 08:00 09/06/24 08:00 Temperature 98.4 F Pulse Rate 80 83 Respiratory Rate 30 H Blood Pressure 117/64 117/64 Pulse Oximetry 99 Oxygen Delivery Fraction of Inspired Oxygen 30 09/06/24 08:00 09/06/24 08:00 09/06/24 08:02 Temperature Pulse Rate 83 81 Respiratory Rate Blood Pressure Pulse Oximetry 99 Oxygen Delivery Mechanical Ventilation Mechanical Ventilation Fraction of Inspired Oxygen 30 09/06/24 08:02 09/06/24 08:18 09/06/24 08:24 Temperature Pulse Rate 81 82 81 Respiratory Rate 32 H 32 H Blood Pressure Pulse Oximetry Oxygen Delivery Fraction of Inspired Oxygen 09/06/24 10:00 09/06/24 10:00 09/06/24 10:00 Temperature Pulse Rate 84 84 84 Respiratory Rate 30 H Blood Pressure 122/64 122/64 Pulse Oximetry 100 Oxygen Delivery Fraction of Inspired Oxygen 09/06/24 10:32 09/06/24 11:33 09/06/24 11:55 Temperature 98.7 F Pulse Rate 83 80 Respiratory Rate 30 H Blood Pressure 113/60 Pulse Oximetry 100 100 Oxygen Delivery Mechanical Ventilation Mechanical Ventilation Fraction of Inspired Oxygen 30 09/06/24 11:55 09/06/24 12:00 09/06/24 12:00 Temperature Pulse Rate 79 79 Respiratory Rate Blood Pressure 114/59 L Pulse Oximetry Oxygen Delivery Fraction of Inspired Oxygen 30 09/06/24 14:00 09/06/24 14:00 09/06/24 14:00 Temperature 98.6 F Pulse Rate 77 77 77 Respiratory Rate 31 H Blood Pressure 112/58 L 112/58 L Pulse Oximetry 100 Oxygen Delivery Fraction of Inspired Oxygen 09/06/24 14:13 09/06/24 14:13 09/06/24 14:26 Temperature Pulse Rate 76 76 74 Respiratory Rate 30 H 30 H Blood Pressure Pulse Oximetry 99 Oxygen Delivery Mechanical Ventilation Fraction of Inspired Oxygen 30 Intake/Output Intake/Output: Intake & Output 09/03/24 09/04/24 09/05/24 09/06/24 23:59 23:59 23:59 23:59 Intake Total 1189.6 1871.6 1989.1 630 Output Total 3120 1088 50 15 Balance -1930.4 783.6 1939.1 615 Meds/Results Medications: Active Medications Generic Name Dose Route Start Last Admin Trade Name Freq PRN Reason Stop Dose Admin Acetaminophen 650 mg 08/18/24 21:48 09/06/24 13:28 Acetaminophen Elixir 325 Mg/10.15 Ml Udc PO 650 mg Q4H PRN Administration Mild Pain (1-3) or Fever Alteplase, Recombinant 2 mg 09/06/24 15:14 Alteplase 2 Mg Vial (Cathflo) INTRACATH 09/06/24 15:15 ONCE ONE Amiodarone HCl 200 mg 09/04/24 09:00 09/06/24 08:24 Amiodarone Hcl 200 Mg Tablet PO 200 mg Q12H TEMI Administration Aspirin 81 mg 09/02/24 08:00 09/06/24 08:24 Aspirin 81 Mg Chewable Tablet PO 81 mg DAILY@0800 TEMI Administration Dextrose 12.5 gm 08/29/24 15:45 Dextrose 50% 25 Gm/50 Ml Syringe IV PUSH PRN PRN Hypoglycemia Protocol Epoetin Oliver-epbx 10,000 units 09/06/24 18:58 Epoetin Oliver-Epbx 10,000 Units/Ml Vial IV PUSH 09/06/24 18:59 ONCE ONE Fluconazole 100 mg 09/05/24 10:13 09/06/24 08:24 Fluconazole 100 Mg Tablet PO 09/08/24 10:12 100 mg QAM TEMI Administration Glucagon 1 mg 08/29/24 15:45 Glucagon For Inj 1 Mg Vial IM PRN PRN Hypoglycemia Protocol Glucose 15 gm 08/29/24 15:45 Glucose Oral Gel 15 Gm Of Glucse In 37.5 Gm Tube PO PRN PRN Hypoglycemia Protocol Heparin Sodium (Porcine) 5,000 units 08/29/24 07:45 09/06/24 13:18 Heparin Sodium 5,000 Units/Ml Vial SUB-Q 5,000 units Q8HR TEMI Administration Albumin Human 50 mls @ 999 mls/hr 08/21/24 06:28 09/04/24 18:41 Albutein IVPB 09/20/24 06:27 Infused Q10M PRN Infusion HYPOTENSION Dextrose 1,000 mls @ 100 mls/hr 08/29/24 15:45 Dextrose 5% 1,000 Ml IVPB PRN PRN Hypoglycemia Protocol Norepinephrine Bitartrate 8 mg in 250 mls @ 0 mls/hr 09/05/24 01:00 09/06/24 14:00 Levophed 8 Mg/D5w 250 Ml IV CONT 0 mcg/min .Q0M TEMI 0 mls/hr Titration Protocol Insulin Aspart 4 - 8 units 08/20/24 21:05 09/06/24 11:39 Insulin Aspart (*Bkc) 100 Units/Ml SUB-Q Not Given Q4HR TEMI Protocol Insulin Glargine 45 units 09/05/24 09:00 09/06/24 08:28 Insulin Glargine (*Bkc) 100 Units/Ml SUB-Q 45 units Q12H TEMI Administration Ipratropium [place] 0.5 mg 08/29/24 12:22 09/05/24 20:20 Ipratropium Br 0.02% Inh Soln 0.5 Mg/2.5 Ml Vial INHALATION 0.5 mg Q6HRT PRN Administration Wheezing Lansoprazole 30 mg 09/06/24 21:00 Lansoprazole Odt 30 Mg Tab. PO Q12HR TEMI Levalbuterol HCl 1.25 mg 08/29/24 14:00 09/06/24 14:13 Levalbuterol Neb 1.25 Mg/3 Ml INHALATION 1.25 mg Q6HRT TEMI Administration Levalbuterol HCl 1.25 mg 08/29/24 12:22 08/29/24 12:20 Levalbuterol Neb 1.25 Mg/3 Ml INHALATION 1.25 mg Q6HRT PRN Administration Wheezing Midodrine 10 mg 09/03/24 11:00 09/06/24 11:27 Midodrine Hcl 10 Mg Tablet PO 10 mg Q8H TEMI Administration Multi-Ingred Cream/Lotion/Oil/Oint 1 applic 08/18/24 09:00 09/06/24 08:25 Mineral Oil/White Petrolatum Ointment EACH EYE 1 applic Q12HR TEMI Administration Neomycin/Polymyxin/Bacitracin 1 applic 09/02/24 12:25 09/06/24 11:48 Neomycin/Polymyxin/Bacitracin Ointment 15 Gm Tube TOPICAL 1 applic Q12H TEMI Administration Polyethylene Glycol 17 gm 09/05/24 09:00 09/06/24 08:24 Polyethylene Glycol 3350 17 Gm Powd.Pack PO 17 gm DAILY TEMI Administration Senna/Docusate Sodium 1 tab 09/05/24 21:00 09/05/24 21:19 Senna/Docusate Sodium Tablet PO 1 tab HS TEMI Administration Sodium Chloride 10 ml 08/19/24 22:00 09/06/24 13:18 Central Line Flush IV PUSH 10 ml Q8HR TEMI Administration Sodium Chloride 20 ml 08/19/24 18:43 Central Line Flush IV PUSH PRN PRN after blood draws Radiology Results: ITS Impressions Chest CTA 08/15/24 11:11 IMPRESSION: No pulmonary embolus. No thoracic aortic dissection. Right upper lobe infiltrate with patchy bilateral airspace disease, likely inflammatory/congestive rather than infectious. Small bilateral pleural effusions with adjacent atelectasis. Renal Ultrasound 08/19/24 14:10 IMPRESSION: No hydronephrosis or renal calculi. Findings suggesting medical renal disease. Findings within the upper pole of the right kidney consistent with patient's history, as detailed above. Chest/Abdomen/Pelvis CT 08/23/24 09:58 IMPRESSION: CHEST: 1. Bilateral pneumonia which is slightly decreased compared to previous study. Bilateral pleural effusion more on the right side. ABDOMEN/PELVIS: 1. No evidence of appendicitis, diverticulitis or intestinal obstruction. 2. Bilateral tiny kidney stones. 3. Hepatomegaly. 4. No evidence of ileus seen. ADDENDUM: 08/23/24 1042 Possibility of mass in the right kidney upper pole cannot be excluded. Abdomen X-Ray 08/23/24 16:53 IMPRESSION: 1. Dobbhoff type nasoenteric feeding tube with distal tip projecting over the gastric fundus. Venous Doppler Study 08/30/24 15:18 IMPRESSION: Negative bilateral lower extremity venous US. No deep vein thrombosis. Head CT 09/01/24 10:03 IMPRESSION: 1. No acute intracranial process. 2. Age-related changes including moderate diffuse volume loss and moderate scattered white matter attenuation consistent with chronic small vessel ischemic disease. 3. Unchanged bilateral otomastoiditis effusions. Chest X-Ray 09/06/24 06:12 Impression: Small pleural effusions and probable mild to moderate pulmonary edema pattern, improved especially in the right lung. Support tubes, as above. Labs Labs: Laboratory Results - last 24 hr 09/05/24 09/05/24 09/06/24 15:51 21:20 02:00 WBC RBC Hgb Hct MCV MCH MCHC RDW Plt Count MPV % Immature Plt Fraction Puncture Site ABG pH ABG pCO2 ABG pO2 ABG PO2/FiO2 Ratio ABG HCO3 ABG O2 Saturation ABG O2 Content ABG Base Excess A-a Gradient Oxyhemoglobin Carboxyhemoglobin Methemoglobin Reduced Hemoglobin Total Hemoglobin O2 Delivery Device O2 Liters/Min Minute Volume Vent Rate Vent Mode FiO2 Tidal Volume PEEP Peak Inspir Pressure Pressure Support Sodium Potassium Chloride Carbon Dioxide Anion Gap BUN Creatinine Estim Creat Clear Calc Estimated GFR Glucose POC Capillary Glucose 172 H 223 H 188 H Calcium Phosphorus Magnesium Total Bilirubin AST ALT Alkaline Phosphatase Total Protein Albumin 09/06/24 09/06/24 09/06/24 04:55 04:59 08:27 WBC 8.6 RBC 3.13 L Hgb 7.9 L Hct 27.1 L MCV 86.6 MCH 25.2 L MCHC 29.2 L RDW 19.0 H Plt Count 127 L MPV 12.0 H % Immature Plt Fraction 6.6 Puncture Site Right radial ABG pH 7.468 H ABG pCO2 32.3 L ABG pO2 85.9 ABG PO2/FiO2 Ratio 2.86 ABG HCO3 22.9 ABG O2 Saturation 97.1 ABG O2 Content 13.4 L ABG Base Excess -0.4 A-a Gradient 90.1 Oxyhemoglobin 96.1 Carboxyhemoglobin 0.6 Methemoglobin 0.3 Reduced Hemoglobin 3.0 Total Hemoglobin 9.8 L O2 Delivery Device Ventilator O2 Liters/Min Not Reportable Minute Volume 6.0 Vent Rate Not Reportable Vent Mode Asv FiO2 30 Tidal Volume Not Reportable PEEP 5 Peak Inspir Pressure Not Reportable Pressure Support Not Reportable Sodium 134 L Potassium 4.2 Chloride 93 L Carbon Dioxide 23 Anion Gap 18 H BUN 136 H D Creatinine 3.36 H Estim Creat Clear Calc 13 Estimated GFR 13 L Glucose 153 H POC Capillary Glucose 183 H Calcium 10.0 Phosphorus 4.7 H Magnesium 2.8 H Total Bilirubin 0.4 AST 30 ALT 44 H Alkaline Phosphatase 122 Total Protein 7.0 Albumin 3.7 09/06/24 11:39 WBC RBC Hgb Hct MCV MCH MCHC RDW Plt Count MPV % Immature Plt Fraction Puncture Site ABG pH ABG pCO2 ABG pO2 ABG PO2/FiO2 Ratio ABG HCO3 ABG O2 Saturation ABG O2 Content ABG Base Excess A-a Gradient Oxyhemoglobin Carboxyhemoglobin Methemoglobin Reduced Hemoglobin Total Hemoglobin O2 Delivery Device O2 Liters/Min Minute Volume Vent Rate Vent Mode FiO2 Tidal Volume PEEP Peak Inspir Pressure Pressure Support Sodium Potassium Chloride Carbon Dioxide Anion Gap BUN Creatinine Estim Creat Clear Calc Estimated GFR Glucose POC Capillary Glucose 180 H Calcium Phosphorus Magnesium Total Bilirubin AST ALT Alkaline Phosphatase Total Protein Albumin Quality VTE Prophylaxis VTE prophylaxis: mechanical ordered and pharmacologic ordered
[2024-09-06] MEDS: ALTEPLASE 2 MG VIAL (CATHFLO) INTRACATH (15:29)
[2024-09-06 16:32] LABS: Glucose Point of Care 150 mg/dl (65-105)
[2024-09-06] MEDS: HEPARIN SODIUM 1,000 UNITS/ML VIAL 2000 UNITS (16:45)
[2024-09-06] MEDS: ALBUMIN HUMAN 25% 12.5 GM/50ML 50 ML IVPB ×2 (16:47→21:46)
[2024-09-06] MEDS: HEPARIN SODIUM 1,000 UNITS/ML VIAL 500 UNITS IV PUSH ×2 (16:59→18:05)
[2024-09-06] MEDS: EPOETIN ALFA-EPBX 10,000 UNITS/ML VIAL 10000 UNITS IV PUSH (17:24)
--- NOTE | 2024-09-06 17:35 | PM.PNNEP ---
Subjective Date/time seen: 09/06/24 17:35 Interval history: Follow-up for acute kidney injury/acute renal failue on chronic kidney disease. Attempted dialysis treatment earlier this afternoon but dialysis had to be stopped due to extremely poor blood flows with HD catheter -- alteplase placed/dwelled in catheter now currently tolerating dialysis treatment at the time of my visit (seen on HD at 5:25PM - although HD catheter only able to achieve blood flows in the 250 - 300 range); remains on mechanical ventilation via tracheostomy; maintaining NSR off amiodarone gtt as well; had to restarted on levophed gtt due to hypotension/drop in BP; no other issues/events overnight or earlier this morning. Objective Data Vital Signs Vital Signs: Vital Signs Temp Pulse Resp BP Pulse Ox O2 Del Method FiO2 09/06/24 17:35 78 108/62 09/06/24 17:30 76 100 Mechanical Ventilation 09/06/24 17:30 75 108/62 09/06/24 17:15 71 109/56 L 09/06/24 17:05 71 109/56 L 09/06/24 17:00 75 94/46 L 09/06/24 16:55 75 94/46 L 09/06/24 16:55 77 86/45 L 09/06/24 16:45 78 89/50 L 09/06/24 16:36 73 91/46 L 09/06/24 16:06 74 99 Mechanical Ventilation 09/06/24 16:00 98.4 F 74 29 H 106/54 L 99 09/06/24 16:00 74 09/06/24 16:00 Mechanical Ventilation 09/06/24 16:00 30 09/06/24 16:00 74 106/54 L 09/06/24 14:53 30 09/06/24 14:53 98.1 F 75 31 H 107/53 L 09/06/24 14:26 74 30 H 09/06/24 14:13 76 30 H 09/06/24 14:13 76 99 Mechanical Ventilation 09/06/24 14:00 77 09/06/24 14:00 98.6 F 77 31 H 112/58 L 100 09/06/24 14:00 77 112/58 L 09/06/24 12:00 79 09/06/24 12:00 79 114/59 L 09/06/24 11:55 30 09/06/24 11:55 Mechanical Ventilation 09/06/24 11:33 98.7 F 80 30 H 113/60 100 09/06/24 10:32 83 100 Mechanical Ventilation 30 09/06/24 10:00 84 09/06/24 10:00 84 30 H 122/64 100 09/06/24 10:00 84 122/64 09/06/24 08:24 81 09/06/24 08:18 82 32 H 09/06/24 08:02 81 32 H 09/06/24 08:02 81 99 Mechanical Ventilation 30 09/06/24 08:00 83 09/06/24 08:00 Mechanical Ventilation 09/06/24 08:00 98.4 F 83 30 H 117/64 99 09/06/24 08:00 80 117/64 09/06/24 07:57 30 09/06/24 06:00 86 126/64 09/06/24 06:00 98.4 F 86 30 H 126/64 100 09/06/24 06:00 86 09/06/24 05:11 74 100 Mechanical Ventilation 09/06/24 04:00 81 110/56 L 09/06/24 04:00 98.3 F 81 34 H 110/56 L 100 09/06/24 04:00 30 09/06/24 04:00 81 09/06/24 04:00 81 34 H 100 Mechanical Ventilation 09/06/24 02:30 78 32 H 09/06/24 02:22 78 100 Mechanical Ventilation 09/06/24 02:22 79 31 H 09/06/24 02:00 73 98/53 L 09/06/24 02:00 98.6 F 80 28 H 120/57 L 100 09/06/24 02:00 81 09/06/24 00:00 80 120/57 L 09/06/24 00:00 98.1 F 80 28 H 120/57 L 100 09/06/24 00:00 30 09/06/24 00:00 75 09/06/24 00:00 75 28 H 99 Mechanical Ventilation 30 09/05/24 23:11 81 99 Mechanical Ventilation 30 09/05/24 22:00 79 119/58 L 09/05/24 22:00 80 29 H 121/58 L 100 09/05/24 22:00 68 09/05/24 21:19 77 09/05/24 20:43 72 29 H 09/05/24 20:20 72 100 Mechanical Ventilation 30 09/05/24 20:20 69 31 H 09/05/24 20:00 70 110/55 L 09/05/24 20:00 98.3 F 68 30 H 116/61 100 09/05/24 19:49 30 09/05/24 19:49 69 09/05/24 19:47 72 33 H 98 Mechanical Ventilation 30 09/05/24 18:00 98.5 F 72 33 H 101/78 98 09/05/24 18:00 72 09/05/24 18:00 72 101/78 Intake/Output Intake/Output: Intake & Output 09/03/24 09/04/24 09/05/24 09/06/24 23:59 23:59 23:59 23:59 Intake Total 1189.6 1871.6 1989.1 630 Output Total 3120 1088 50 15 Balance -1930.4 783.6 1939.1 615 Meds/Results Medications: Active Medications Generic Name Dose Route Start Last Admin Trade Name Freq PRN Reason Stop Dose Admin Acetaminophen 650 mg 08/18/24 21:48 09/06/24 13:28 Acetaminophen Elixir 325 Mg/10.15 Ml Udc PO 650 mg Q4H PRN Administration Mild Pain (1-3) or Fever Alteplase, Recombinant 2 mg 09/06/24 15:14 Alteplase 2 Mg Vial (Cathflo) INTRACATH 09/06/24 15:15 ONCE ONE Amiodarone HCl 200 mg 09/04/24 09:00 09/06/24 08:24 Amiodarone Hcl 200 Mg Tablet PO 200 mg Q12H TEMI Administration Aspirin 81 mg 09/02/24 08:00 09/06/24 08:24 Aspirin 81 Mg Chewable Tablet PO 81 mg DAILY@0800 TEMI Administration Dextrose 12.5 gm 08/29/24 15:45 Dextrose 50% 25 Gm/50 Ml Syringe IV PUSH PRN PRN Hypoglycemia Protocol Epoetin Oliver-epbx 10,000 units 09/06/24 18:58 Epoetin Oliver-Epbx 10,000 Units/Ml Vial IV PUSH 09/06/24 18:59 ONCE ONE Fluconazole 100 mg 09/05/24 10:13 09/06/24 08:24 Fluconazole 100 Mg Tablet PO 09/08/24 10:12 100 mg QAM TEMI Administration Glucagon 1 mg 08/29/24 15:45 Glucagon For Inj 1 Mg Vial IM PRN PRN Hypoglycemia Protocol Glucose 15 gm 08/29/24 15:45 Glucose Oral Gel 15 Gm Of Glucse In 37.5 Gm Tube PO PRN PRN Hypoglycemia Protocol Heparin Sodium (Porcine) 5,000 units 08/29/24 07:45 09/06/24 13:18 Heparin Sodium 5,000 Units/Ml Vial SUB-Q 5,000 units Q8HR TEMI Administration Albumin Human 50 mls @ 999 mls/hr 08/21/24 06:28 09/04/24 18:41 Albutein IVPB 09/20/24 06:27 Infused Q10M PRN Infusion HYPOTENSION Dextrose 1,000 mls @ 100 mls/hr 08/29/24 15:45 Dextrose 5% 1,000 Ml IVPB PRN PRN Hypoglycemia Protocol Norepinephrine Bitartrate 8 mg in 250 mls @ 0 mls/hr 09/05/24 01:00 09/06/24 14:00 Levophed 8 Mg/D5w 250 Ml IV CONT 0 mcg/min .Q0M TEMI 0 mls/hr Titration Protocol Insulin Aspart 4 - 8 units 08/20/24 21:05 09/06/24 11:39 Insulin Aspart (*Bkc) 100 Units/Ml SUB-Q Not Given Q4HR TEMI Protocol Insulin Glargine 45 units 09/05/24 09:00 09/06/24 08:28 Insulin Glargine (*Bkc) 100 Units/Ml SUB-Q 45 units Q12H TEMI Administration Ipratropium [place] 0.5 mg 08/29/24 12:22 09/05/24 20:20 Ipratropium Br 0.02% Inh Soln 0.5 Mg/2.5 Ml Vial INHALATION 0.5 mg Q6HRT PRN Administration Wheezing Lansoprazole 30 mg 09/06/24 21:00 Lansoprazole Odt 30 Mg Tab. PO Q12HR TEMI Levalbuterol HCl 1.25 mg 08/29/24 14:00 09/06/24 14:13 Levalbuterol Neb 1.25 Mg/3 Ml INHALATION 1.25 mg Q6HRT TEMI Administration Levalbuterol HCl 1.25 mg 08/29/24 12:22 08/29/24 12:20 Levalbuterol Neb 1.25 Mg/3 Ml INHALATION 1.25 mg Q6HRT PRN Administration Wheezing Midodrine 10 mg 09/03/24 11:00 09/06/24 11:27 Midodrine Hcl 10 Mg Tablet PO 10 mg Q8H TEMI Administration Multi-Ingred Cream/Lotion/Oil/Oint 1 applic 08/18/24 09:00 09/06/24 08:25 Mineral Oil/White Petrolatum Ointment EACH EYE 1 applic Q12HR TEMI Administration Neomycin/Polymyxin/Bacitracin 1 applic 09/02/24 12:25 09/06/24 11:48 Neomycin/Polymyxin/Bacitracin Ointment 15 Gm Tube TOPICAL 1 applic Q12H TEMI Administration Polyethylene Glycol 17 gm 09/05/24 09:00 09/06/24 08:24 Polyethylene Glycol 3350 17 Gm Powd.Pack PO 17 gm DAILY TEMI Administration Senna/Docusate Sodium 1 tab 09/05/24 21:00 09/05/24 21:19 Senna/Docusate Sodium Tablet PO 1 tab HS TEMI Administration Sodium Chloride 10 ml 08/19/24 22:00 09/06/24 13:18 Central Line Flush IV PUSH 10 ml Q8HR TEMI Administration Sodium Chloride 20 ml 08/19/24 18:43 Central Line Flush IV PUSH PRN PRN after blood draws Radiology Results: ITS Impressions Chest CTA 08/15/24 11:11 IMPRESSION: No pulmonary embolus. No thoracic aortic dissection. Right upper lobe infiltrate with patchy bilateral airspace disease, likely inflammatory/congestive rather than infectious. Small bilateral pleural effusions with adjacent atelectasis. Renal Ultrasound 08/19/24 14:10 IMPRESSION: No hydronephrosis or renal calculi. Findings suggesting medical renal disease. Findings within the upper pole of the right kidney consistent with patient's history, as detailed above. Chest/Abdomen/Pelvis CT 08/23/24 09:58 IMPRESSION: CHEST: 1. Bilateral pneumonia which is slightly decreased compared to previous study. Bilateral pleural effusion more on the right side. ABDOMEN/PELVIS: 1. No evidence of appendicitis, diverticulitis or intestinal obstruction. 2. Bilateral tiny kidney stones. 3. Hepatomegaly. 4. No evidence of ileus seen. ADDENDUM: 08/23/24 1042 Possibility of mass in the right kidney upper pole cannot be excluded. Abdomen X-Ray 08/23/24 16:53 IMPRESSION: 1. Dobbhoff type nasoenteric feeding tube with distal tip projecting over the gastric fundus. Venous Doppler Study 08/30/24 15:18 IMPRESSION: Negative bilateral lower extremity venous US. No deep vein thrombosis. Head CT 09/01/24 10:03 IMPRESSION: 1. No acute intracranial process. 2. Age-related changes including moderate diffuse volume loss and moderate scattered white matter attenuation consistent with chronic small vessel ischemic disease. 3. Unchanged bilateral otomastoiditis effusions. Chest X-Ray 09/06/24 06:12 Impression: Small pleural effusions and probable mild to moderate pulmonary edema pattern, improved especially in the right lung. Support tubes, as above. Labs Labs: Laboratory Tests 09/06/24 04:59 09/06/24 04:59 Calcium 10.0 Phosphorus 4.7 H Magnesium 2.8 H Total Bilirubin 0.4 AST 30 ALT 44 H Alkaline Phosphatase 122 Total Protein 7.0 Albumin 3.7
[2024-09-06] MEDS: SENNA/DOCUSATE SODIUM TABLET 1 TAB PO (21:49)
[2024-09-06] MEDS: LANSOPRAZOLE ODT 30 MG TAB.RAP.DR PO (21:49)
[2024-09-06 21:54] LABS: Glucose Point of Care 156 mg/dl (65-105)
[2024-09-06] MEDS: AMIODARONE 150 MG/D5W 100 ML 150 MG/100 ML BAG 600 MG IV CONT (22:00)
[2024-09-06] MEDS: AMIODARONE 360 MG/D5W 200 ML 360 MG/200 ML BAG 33.33 MG IV CONT (22:15)
[2024-09-07] VITALS (29 sets, daily range): BP systolic 94–132; BP diastolic 57–72; PULSE 66–173; RESP 22–100; TEMP 36.9–38.1; O2SAT 99–100
[2024-09-07] MEDS: CENTRAL LINE FLUSH 10 ML IV PUSH ×2 (00:52→14:05)
[2024-09-07] MEDS: NEOMYCIN/POLYMYXIN/BACITRACIN OINTMENT 15 GM TUBE 1 APPLIC TOPICAL ×2 (00:52→10:52)
[2024-09-07] MEDS: LEVALBUTEROL NEB 1.25 MG/3 ML INHALATION ×3 (02:07→14:21)
[2024-09-07] MEDS: MIDODRINE HCL 10 MG TABLET PO ×3 (03:30→18:07)
[2024-09-07] MEDS: AMIODARONE 360 MG/D5W 200 ML 360 MG/200 ML BAG 16.67 MG IV CONT (04:03)
[2024-09-07 05:05] LABS: Alveolar/Arterial O2 Gradient 91.3 mmHg; Carboxyhemoglobin 0.3 % THb (0-2.0); Fractional Inspired Oxygen 30 %; HCO3 ABG 24.3 mEq/l (22.0-26.0); Methemoglobin ABG 0.1 %THb (0-1.5); Oxygen Content ABG 12.8 %vol (16.0-22.0); Oxygen Saturation ABG 97.7 % (95.0-100.0); Oxyhemoglobin 96.8 % THb (90.0-100.0); PCO2 ABG 29.3 mmHg (35.0-45.0); PO2 ABG 88.2 mmHg (80.0-100.0); PO2 FiO2 Ratio Arterial Blood 2.94 %; Reduced Hemoglobin 2.8 %THb (0-5.0); Total Hemoglobin 9.3 g/dL (12.0-18.0)
[2024-09-07 05:09] LABS: Device VENTILATOR; Modified Allen's Test Pass; Site Drawn RIGHT RADIAL; pH ABG 7.536 (7.350-7.450)
[2024-09-07 05:10] LABS: Arterial Blood Gas Minute Volume 6.6 LPM; Arterial Blood Gas PEEP 5 cmH2O; Arterial Blood Gas Vent Mode ASV
[2024-09-07 05:11] LABS: Arterial Blood Gas Pressure Support 11 cmH2O; Peak Inspiratory Pressure 30 cmH2O
[2024-09-07 05:14] LABS: Basophils Percent Auto 0.5 % (0.2-1.2); Eosinophils Absolute Auto 0.3 K/mm3 (0-0.3); Eosinophils Percent Auto 3.4 % (0-4.4); Hemoglobin 8.2 g/dL (12.0-15.0); Immature Granulocyte Absolute 0.22 K/mm3 (0.00-0.031); Immature Granulocyte Percent A 2.6 % (0-0.5); Lymphocytes Absolute Auto 1.28 K/mm3 (0.9-3.2); Lymphocytes Percent Auto 14.9 % (18.3-44.2); Mean Corpuscular HGB Conc 30.4 g/dl (32-36); Mean Corpuscular Hemoglobin 25.5 pg (26-34); Mean Corpuscular Volume 83.9 fl (80-100); Mean Platelet Volume 10.9 fl (7.4-10.4); Monocytes Absolute Auto 0.6 K/mm3 (0.1-0.6); Monocytes Percent Auto 6.6 % (2.6-8.5); Neutrophils Absolute Auto 6.2 K/mm3 (1.3-6.7); Nucleated Red Blood Cells Perc 0.3 % (0.0-0.2); Platelet Count Result 122 k/mm3 (150-375); Red Blood Count 3.22 M/mm3 (4.2-5.4); White Blood Count 8.6 K/mm3 (4.5-10.0)
[2024-09-07 05:36] LABS: Alanine Aminotransferase 36 U/L (6-35); Albumin Level 3.7 g/dL (3.5-5.1); Alkaline Phosphatase 138 U/L (38-126); Anion Gap 16 mmol/L (4-12); Aspartate Amino Transferase 33 U/L (14-36); Bilirubin,Total 0.4 mg/dL (0.2-1.3); Blood Urea Nitrogen 79 mg/dL (7-17); Calcium 9.3 mg/dL (8.4-10.2); Carbon Dioxide 24 mmol/L (22-30); Chloride 93 mmol/L (98-107); Estimated CRCL calculation 17 ml/min; Estimated Glomerular Filt Rate 19; Glucose 176 mg/dL (65-110); Magnesium 2.4 mg/dL (1.6-2.3); Potassium 3.8 mmol/L (3.4-5.0); Sodium 133 mmol/L (137-145)
[2024-09-07 07:37] LABS: Glucose Point of Care 169 mg/dl (65-105)
[2024-09-07] MEDS: FLUCONAZOLE 100 MG TABLET PO (08:46)
[2024-09-07] MEDS: polyethylene glycoL 3350 17 GM POWD.PACK PO (08:46)
[2024-09-07] MEDS: AMIODARONE HCL 200 MG TABLET PO (08:46)
[2024-09-07] MEDS: LANSOPRAZOLE ODT 30 MG TAB.RAP.DR PO (08:46)
[2024-09-07] MEDS: MINERAL OIL/WHITE PETROLATUM OINTMENT 1 APPLIC EACH EYE (08:47)
[2024-09-07] MEDS: INSULIN GLARGINE (*BKC) 100 UNITS/ML 45 UNITS SUB-Q (08:47)
[2024-09-07] MEDS: ASPIRIN 81 MG CHEWABLE TABLET PO (08:47)
--- NOTE | 2024-09-07 09:20 | WPDINTPN ---
Progress Note: A&P Assessment and Plan (1) DVT (deep venous thrombosis): Qualifiers: DVT location: lower extremity Affected thrombotic vein of extremity: tibial Chronicity: acute Laterality: bilateral Qualified Code(s): I82.443 - Acute embolism and thrombosis of tibial vein, bilateral Code(s): I82.409 - Acute embolism and thrombosis of unspecified deep veins of unspecified lower extremity Status: Resolved Assessment and Plan: 08/20: Bilateral venous Dopplers obtained due to swelling in the legs. Ultrasound showed Bilateral [id number] deep venous thrombosis in the left and right posterior tibial veins. Patient was initially started on heparin infusion which was discontinued on 08/28 due to drop in hemoglobin 08/28/2024: Patient dropped hemoglobin to 6.9, on heparin infusion for DVTs bilaterally -have asked the bedside RN to hold heparin infusion -appreciate surgery evaluation and recommendations, will hold off IVC filter placement, repeat venous Dopplers on 08/30/2024 negative for bilateral lower extremity DVT. -continue prophylactic heparin SQ 08/30: Bilateral lower extremity venous Dopplers : Negative bilateral lower extremity venous US. No deep vein thrombosis. (2) Anemia: Qualifiers: Anemia type: due to chronic kidney disease Chronic kidney disease stage: stage 3 (moderate) Chronic kidney disease stage 3 subtype: unspecified whether 3a or 3b Qualified Code(s): N18.30 - Chronic kidney disease, stage 3 unspecified; D63.1 - Anemia in chronic kidney disease Code(s): D64.9 - Anemia, unspecified Status: Acute Assessment and Plan: 08/28: Patient dropped her hemoglobin to 6.9 this morning -patient is on heparin infusion for her bilateral lower extremity DVTs -have asked the bedside RN to hold heparin infusion -08/28: Transfused 1 unit of packed RBCs -09/05: Hemoglobin slightly trending down this morning, will continue to monitor -continue subQ heparin (prophylactic dose) (3) Acute respiratory failure with hypoxia: Code(s): J96.01 - Acute respiratory failure with hypoxia Status: Acute Assessment and Plan: Acute Respiratory failure secondary to combination of pneumonia and congestive heart failure 08/18: Intubated Repeat CT chest 08/18 MPRESSION: 1. Significant interval progression in an lobar pneumonia along with increasing small bilateral pleural effusions. Patient has elevated procalcitonin and BNP she is positive on intake output balance but her echocardiogram shows normal biventricular size and systolic function Continue Bronchodilators 08/16/2024: Blood cultures negative x2. 08/21/2024: Sputum culture growing MRSA Urine Legionella antigen, mycoplasma pneumonia antibody and urine pneumococcal antigen negative Continue Dialysis to remove fluid, discussed with Nephrology Status post vancomycin cefepime azithromycin (antibiotics ended on 08/27/2024) -Chest x-ray and ABGs reviewed -continue Mucomyst 08/29: Status post 7 days vancomycin and meropenem 08/31: PEG tube to be placed 09/03: Tracheostomy placed -09/04: Placed patient on pressure support ventilation 12/5, tolerated for 1 hour, after which she was tachypneic and was switched to ASV mode of ventilation. Will place her back on CMV in the evening or if she does not tolerate ASV. 09/05: Patient tolerated ASV all through the day yesterday and through the night. Will switch to pressure support ventilation 10/5. Tolerating well and adequate tidal volumes. Will switch to ASV if patient tires out, is tachycardic, tachypnea or hypoxic 09/06: Tolerated ASV all through the day yesterday and through the night. Have placed patient on pressure support ventilation 10/5. She had been tolerating it well. Will switch to ASV patient tires out 09/07: Patient tachypneic this morning, placed back on CMV as she has been on pressure support ventilation and ASV mode for the last 3 days. Will later switched to pressure support ventilation (4) Non-ST elevation myocardial infarction (NSTEMI): Code(s): I21.4 - Non-ST elevation (NSTEMI) myocardial infarction Status: Acute Assessment and Plan: History of coronary disease status post PCI in the past now presented with elevated troponin. -Cardiology following -Other heart medications on hold due to low blood pressure -Statin on hold due to elevated LFTs. -No plan for cardiac catheterization at this time. -continue aspirin 81 mg (5) Type 2 diabetes mellitus: Code(s): E11.9 - Type 2 diabetes mellitus without complications Status: Chronic Assessment and Plan: Sliding scale insulin 08/29: Blood sugars in the 400s despite being Lantus 50 units q.12 hours. Patient was started on insulin infusion on Lantus was discontinued -09/04: Will transition insulin infusion to long-acting insulin Lantus and high-dose sliding scale, -09/05: Increase Lantus (6) Renal failure: Qualifiers: Renal failure chronicity: acute on chronic Acute renal failure type: unspecified Chronic kidney disease stage: stage 3 (moderate) Chronic kidney disease stage 3 subtype: unspecified whether 3a or 3b Qualified Code(s): N17.9 - Acute kidney failure, unspecified; N18.30 - Chronic kidney disease, stage 3 unspecified Code(s): N19 - Unspecified kidney failure Status: Acute Assessment and Plan: Patient presented with creatinine of 1.5. Baseline creatinine unknown She has suprapubic catheter. As per son patient has had a renal tumor which was being monitored and plan was to start radiation therapy by her urology CT scan showed Subtle 2.5 cm mass at the upper pole of the right kidney consistent with provided history of renal tumor. Calcification is at the bilateral kidneys which appear linear and likely atherosclerotic although could not exclude nonobstructing nephrolithiasis. No hydronephrosis in either kidney. Diuretics were held and patient was given albumin bolus Creatinine continue to increase with poor urine output. After discussion with patient's family and home care assistant decision was made to initiate dialysis. 08/19 dialysis catheter was placed and patient was dialyzed 1 L fluid was removed Monitor urine output electrolytes and creatinine Dialysis per Nephrology -09/02: Tunneled dialysis placed -09/03: Tunnel dialysis catheter was nonfunctioning this morning, alteplase has been dwelled in the catheter. Later in the day temporary dialysis catheter was removed, triple-lumen central line was inserted and placed above the tunnel dialysis catheter in the IVC. Once this was done the tunnel dialysis catheter was functioning fine (7) Pneumonia: Qualifiers: Laterality: bilateral Lung location: lower lobe of lung Pneumonia type: due to methicillin-resistant Staphylococcus aureus (MRSA) Qualified Code(s): J15.212 - Pneumonia due to Methicillin resistant Staphylococcus aureus Code(s): J18.9 - Pneumonia, unspecified organism Status: Acute Assessment and Plan: See above (8) Kidney mass: Code(s): N28.89 - Other specified disorders of kidney and ureter Status: Acute Assessment and Plan: Patient's son reports history of kidney mass which is being monitored as it was too big to be removed without total nephrectomy. He states that patient was supposed to get radiation therapy in a month or so before she fractured her ankle. CT scan shows 2.5 cm renal mass on the right side and no hydronephrosis. No intervention at this time (9) Septic shock: Code(s): A41.9 - Sepsis, unspecified organism; R65.21 - Severe sepsis with septic shock Status: Acute Assessment and Plan: Patient requires Levophed mainly when she is receiving dialysis -target SBP > 90 mmHg Status post antibiotics -patient on midodrine (10) Ileus: Code(s): K56.7 - Ileus, unspecified Status: Acute Assessment and Plan: RESOLVED 08/23 Dobbhoff placed tube feeds resume 08/31: PEG tube inserted by GI Patient tolerating tube feeds -continue MiraLax and docusate sodium (11) Atrial fibrillation with RVR: Code(s): I48.91 - Unspecified atrial fibrillation Status: Acute Assessment and Plan: Patient went into AFib with RVR after hemodialysis.. She was started on amiodarone infusion. She has converted to sinus bradycardia, amiodarone was discontinued on 08/26/2024 Currently off heparin infusion due to anemia 08/30: Patient went to AFib RVR during dialysis, with rates in the 140s to 150s, started patient on amiodarone bolus and infusion, will let the infusion complete -continue prophylactic heparin SQ -patient was into AFib RVR with dialysis, also requires norepinephrine during dialysis. Patient has been started couple of times on amiodarone infusion and converts to sinus rhythm after dialysis and amiodarone drip has to be discontinued. -09/03 patient flipped back into AFib RVR and had to be restarted on amiodarone infusion -09/04: Started on amiodarone 200 mg PO Q12H and wean the amiodarone infusion to off, patient currently in sinus rhythm, rate controlled. Off amiodarone infusion (12) Encephalopathy: Code(s): G93.40 - Encephalopathy, unspecified Status: Acute Assessment and Plan: Patient was on Versed and fentanyl infusion for many days. She also has renal failure which may lead to accumulation -started on propofol infusion -off propofol patient becomes tachypneic and dyssynchronous with the ventilator leading her to desaturate -08/26/2024: CT scan of the brain No intracranial hemorrhage, mass, or acute infarct.Atrophy and chronic white matter changes. -ammonia levels within normal limits -08/29: propofol has been switched to Precedex, to allow patient to wake up -09/01: CT brain with no acute intracranial process, age-related changes, unchanged bilateral otomastoiditis effusion -patient has been off Precedex infusion since 08/31., not on any sedation medication 09/05 & 09/06: More awake this morning, eyes wide open, tracking, acknowledges examiner in the room, blinks to threat. Does not follow any commands at this time Plan DVT prophylaxis -heparin subQ Stress ulcer prophylaxis - PPI per tube, positive bowel movements Nutrition -tolerating tube feeds Code Status - Full Code Total Critical Care Time - 32 minutes Discussed with care coordination, arranging for LTAC placement 09/03: Discussed with Bacilio, he is aware that the patient is in the OR for tracheostomy, will possibly get dialyzed later this afternoon. Care coordination following and looking into LTAC placement 09/02: Discussed with patient's sons Bacilio and Geoffrey. Updated with patient's condition and plan of care. The consented to tracheostomy to be done on 09/03 09/01: Discussed with patient's is Luke flynn and Geoffrey, updated them with patient's condition and plan of care. They are aware that she got a PEG tube placed on 08/31, scheduled for tunneled dialysis catheter on 09/02 and tracheostomy on 09/03. Care coordination has met with them regarding LTAC facilities, I answered all the questions 08/28: Had a long discussion with both Luke flynn and Geoffrey. I updated them with patient's condition plan of care. They understand that the patient has multiple medical problems but requested that she gets a tracheostomy and PEG tube placement as they want to give her a complete chance to recover Due to a high probability of clinically significant, life threatening deterioration, the patient required my highest level of preparedness to intervene emergently and I personally spent this critical care time directly and personally managing the patient. This critical care time included obtaining a history; examining the patient; pulse oximetry; ordering and review of studies; arranging urgent treatment with development of a management plan; evaluation of patient's response to treatment; frequent reassessment; and discussions with other providers. It was exclusive of separately billable procedures and treating other patients and teaching time. Please see Assessment and Plan section and the rest of the note for further information on patient assessment and treatment. This dictation may have been done utilizing a voice recognition system. Attempts have been made to correct errors. However, there may be uncorrected grammatical, spelling, and recognitions errors present. Subjective Date/time seen: 09/07/24 09:20 Interval history: 08/18: Intubated 08/19 temporary dialysis catheter placed patient was dialyzed 08/21 vent into AFib with RVR. Converted to sinus Steve with amiodarone 08/23 Dobbhoff tube inserted 08/28: Transfuse 1 unit of PRBC 08/31: PEG tube placed 09/02: Tunneled dialysis catheter 09/03: Tracheostomy tube placement 09/07/2024: Patient seen and examined the ICU remains on mechanical ventilation via tracheostomy. Patient has been tolerating ASV mode peep of 5 and 30% FiO2. She has been off all sedation since 08/28/2024 and off Precedex infusion since 08/31. Less awake this morning, does not open her eyes or follow simple commands. Patient did receive dialysis yesterday with 2000 mL in fluid removal. Went into AFib RVR overnight requiring amiodarone infusion, patient is sinus rhythm, rate controlled -currently off amiodarone and norepinephrine infusion Review of Systems Review of Systems: ROS unobtainable: Yes unobtainable due to endotracheal tube, unobtainable due to medical condition and unobtainable due to mental status Exam Narrative: General: On mechanical ventilation via tracheostomy tube, in no acute distress HEENT: Pupils equal and reactive, sclera is clear, tracheostomy in place, upper lip puncture wound noted and covered with triple antibiotic appointment Lungs/Chest: Trachea central Coarse BS B/L, bilateral rales, no wheezing, adequate air entry Cardiac: RRR. Normal S1 S2. No murmurs Abdomen: Soft, nontender, nondistended, hypoactive bowel sounds Extremities: Edema improving, palpable pedal pulse : Butt in place Neurologic: On mechanical ventilation, not on any sedation, patient does not open eyes this morning, not awake, does not follow simple commands. Grimaces to pain but does not withdraw to pain stimulus Objective Data Vital Signs Vital Signs: Vital Signs - 24 hr 09/06/24 10:00 09/06/24 10:00 09/06/24 10:00 Temperature Pulse Rate 84 84 84 Respiratory Rate 30 H Blood Pressure 122/64 122/64 Pulse Oximetry 100 Oxygen Delivery Fraction of Inspired Oxygen 09/06/24 10:32 09/06/24 11:33 09/06/24 11:55 Temperature 98.7 F Pulse Rate 83 80 Respiratory Rate 30 H Blood Pressure 113/60 Pulse Oximetry 100 100 Oxygen Delivery Mechanical Ventilation Mechanical Ventilation Fraction of Inspired Oxygen 30 09/06/24 11:55 09/06/24 12:00 09/06/24 12:00 Temperature Pulse Rate 79 79 Respiratory Rate Blood Pressure 114/59 L Pulse Oximetry Oxygen Delivery Fraction of Inspired Oxygen 30 09/06/24 14:00 09/06/24 14:00 09/06/24 14:00 Temperature 98.6 F Pulse Rate 77 77 77 Respiratory Rate 31 H Blood Pressure 112/58 L 112/58 L Pulse Oximetry 100 Oxygen Delivery Fraction of Inspired Oxygen 09/06/24 14:13 09/06/24 14:13 09/06/24 14:26 Temperature Pulse Rate 76 76 74 Respiratory Rate 30 H 30 H Blood Pressure Pulse Oximetry 99 Oxygen Delivery Mechanical Ventilation Fraction of Inspired Oxygen 30 09/06/24 14:53 09/06/24 14:53 09/06/24 16:00 Temperature 98.1 F Pulse Rate 75 74 Respiratory Rate 31 H Blood Pressure 107/53 L 106/54 L Pulse Oximetry Oxygen Delivery Fraction of Inspired Oxygen 30 09/06/24 16:00 09/06/24 16:00 09/06/24 16:00 Temperature Pulse Rate 74 Respiratory Rate Blood Pressure Pulse Oximetry Oxygen Delivery Mechanical Ventilation Fraction of Inspired Oxygen 30 09/06/24 16:00 09/06/24 16:06 09/06/24 16:36 Temperature 98.4 F Pulse Rate 74 74 73 Respiratory Rate 29 H Blood Pressure 106/54 L 91/46 L Pulse Oximetry 99 99 Oxygen Delivery Mechanical Ventilation Fraction of Inspired Oxygen 30 09/06/24 16:45 09/06/24 16:55 09/06/24 16:55 Temperature Pulse Rate 78 77 75 Respiratory Rate Blood Pressure 89/50 L 86/45 L 94/46 L Pulse Oximetry Oxygen Delivery Fraction of Inspired Oxygen 09/06/24 17:00 09/06/24 17:05 09/06/24 17:15 Temperature Pulse Rate 75 71 71 Respiratory Rate Blood Pressure 94/46 L 109/56 L 109/56 L Pulse Oximetry Oxygen Delivery Fraction of Inspired Oxygen 09/06/24 17:30 09/06/24 17:30 09/06/24 17:35 Temperature Pulse Rate 75 76 78 Respiratory Rate Blood Pressure 108/62 108/62 Pulse Oximetry 100 Oxygen Delivery Mechanical Ventilation Fraction of Inspired Oxygen 30 09/06/24 17:45 09/06/24 17:53 09/06/24 18:00 Temperature Pulse Rate 76 77 76 Respiratory Rate Blood Pressure 118/61 119/58 L 116/87 Pulse Oximetry Oxygen Delivery Fraction of Inspired Oxygen 09/06/24 18:00 09/06/24 18:00 09/06/24 18:15 Temperature Pulse Rate 77 77 78 Respiratory Rate 34 H Blood Pressure 116/87 118/64 Pulse Oximetry 99 Oxygen Delivery Fraction of Inspired Oxygen 09/06/24 18:16 09/06/24 18:30 09/06/24 18:43 Temperature Pulse Rate 81 78 83 Respiratory Rate Blood Pressure 118/64 115/52 L 115/52 L Pulse Oximetry Oxygen Delivery Fraction of Inspired Oxygen 09/06/24 18:45 09/06/24 19:00 09/06/24 19:15 Temperature Pulse Rate 87 85 102 H Respiratory Rate Blood Pressure 108/52 L 110/57 L 100/55 L Pulse Oximetry Oxygen Delivery Fraction of Inspired Oxygen 09/06/24 19:30 09/06/24 19:45 09/06/24 20:00 Temperature Pulse Rate 108 H 101 H 105 H Respiratory Rate Blood Pressure 116/89 105/56 L 97/66 L Pulse Oximetry Oxygen Delivery Fraction of Inspired Oxygen 09/06/24 20:00 09/06/24 20:00 09/06/24 20:00 Temperature Pulse Rate 102 H 102 H Respiratory Rate 30 H Blood Pressure Pulse Oximetry 99 Oxygen Delivery Mechanical Ventilation Fraction of Inspired Oxygen 30 30 09/06/24 20:00 09/06/24 20:14 09/06/24 20:15 Temperature 98.1 F Pulse Rate 106 H 109 H 115 H Respiratory Rate 30 H 31 H Blood Pressure 97/66 L 93/67 L Pulse Oximetry 99 Oxygen Delivery Fraction of Inspired Oxygen 09/06/24 20:22 09/06/24 20:30 09/06/24 20:36 Temperature Pulse Rate 105 H 108 H 109 H Respiratory Rate 31 H Blood Pressure 109/69 Pulse Oximetry 99 Oxygen Delivery Mechanical Ventilation Fraction of Inspired Oxygen 30 09/06/24 20:45 09/06/24 20:56 09/06/24 21:10 Temperature 98.6 F Pulse Rate 106 H 104 H 93 Respiratory Rate 34 H Blood Pressure 101/68 77/44 L 82/52 L Pulse Oximetry 99 Oxygen Delivery Fraction of Inspired Oxygen 09/06/24 21:15 09/06/24 21:30 09/06/24 21:49 Temperature Pulse Rate 103 H 109 H 103 H Respiratory Rate Blood Pressure 89/66 L 129/74 Pulse Oximetry Oxygen Delivery Fraction of Inspired Oxygen 09/06/24 22:00 09/06/24 22:00 09/06/24 22:00 Temperature Pulse Rate 137 H 74 130 H Respiratory Rate 32 H Blood Pressure 147/100 H 96/57 L Pulse Oximetry 100 Oxygen Delivery Fraction of Inspired Oxygen 09/06/24 22:15 09/06/24 22:15 09/06/24 22:50 Temperature Pulse Rate 117 H 133 H 107 H Respiratory Rate Blood Pressure 96/57 L 96/57 L Pulse Oximetry 100 Oxygen Delivery Mechanical Ventilation Fraction of Inspired Oxygen 30 09/07/24 00:00 09/07/24 00:00 09/07/24 00:00 Temperature Pulse Rate 73 75 75 Respiratory Rate 36 H Blood Pressure 94/58 L Pulse Oximetry 100 Oxygen Delivery Mechanical Ventilation Fraction of Inspired Oxygen 30 09/07/24 00:00 09/07/24 00:00 09/07/24 02:00 Temperature 98.7 F Pulse Rate 75 74 Respiratory Rate 32 H Blood Pressure 94/58 L Pulse Oximetry 100 Oxygen Delivery Fraction of Inspired Oxygen 30 09/07/24 02:00 09/07/24 02:00 09/07/24 02:07 Temperature Pulse Rate 73 74 173 H Respiratory Rate 25 H 36 H Blood Pressure 108/59 L 108/59 L Pulse Oximetry 100 Oxygen Delivery Fraction of Inspired Oxygen 09/07/24 02:12 09/07/24 02:29 09/07/24 03:59 Temperature Pulse Rate 74 173 H 173 H Respiratory Rate 36 H 36 H Blood Pressure Pulse Oximetry 100 100 Oxygen Delivery Mechanical Ventilation Mechanical Ventilation Fraction of Inspired Oxygen 30 30 09/07/24 04:00 09/07/24 04:00 09/07/24 04:00 Temperature 98.4 F Pulse Rate 73 72 Respiratory Rate 35 H Blood Pressure 105/57 L Pulse Oximetry 100 Oxygen Delivery Fraction of Inspired Oxygen 30 09/07/24 04:00 09/07/24 04:03 09/07/24 05:11 Temperature Pulse Rate 72 73 70 Respiratory Rate Blood Pressure 105/57 L 105/57 L Pulse Oximetry Oxygen Delivery Fraction of Inspired Oxygen 09/07/24 05:12 09/07/24 06:00 09/07/24 06:00 Temperature Pulse Rate 95 71 71 Respiratory Rate 33 H Blood Pressure 113/59 L 113/59 L Pulse Oximetry 100 100 Oxygen Delivery Mechanical Ventilation Fraction of Inspired Oxygen 30 09/07/24 07:46 09/07/24 07:50 09/07/24 08:00 Temperature 100.3 F H Pulse Rate 73 72 73 Respiratory Rate 34 H 36 H Blood Pressure 132/66 Pulse Oximetry 100 100 Oxygen Delivery Mechanical Ventilation Fraction of Inspired Oxygen 30 09/07/24 08:05 09/07/24 08:46 Temperature Pulse Rate 73 74 Respiratory Rate 34 H Blood Pressure Pulse Oximetry Oxygen Delivery Fraction of Inspired Oxygen Intake/Output Intake/Output: Intake & Output 09/04/24 09/05/24 09/06/24 09/07/24 23:59 23:59 23:59 23:59 Intake Total 1871.6 1989.1 1316.5 627.9 Output Total 1088 50 2075 15 Balance 783.6 1939.1 -758.5 612.9 Meds/Results Medications: Active Medications Generic Name Dose Route Start Last Admin Trade Name Freq PRN Reason Stop Dose Admin Acetaminophen 650 mg 08/18/24 21:48 09/06/24 13:28 Acetaminophen Elixir 325 Mg/10.15 Ml Udc PO 650 mg Q4H PRN Administration Mild Pain (1-3) or Fever Amiodarone HCl 200 mg 09/04/24 09:00 09/07/24 08:46 Amiodarone Hcl 200 Mg Tablet PO 200 mg Q12H TEMI Administration Aspirin 81 mg 09/02/24 08:00 09/07/24 08:47 Aspirin 81 Mg Chewable Tablet PO 81 mg DAILY@0800 TEMI Administration Dextrose 12.5 gm 08/29/24 15:45 Dextrose 50% 25 Gm/50 Ml Syringe IV PUSH PRN PRN Hypoglycemia Protocol Fluconazole 100 mg 09/05/24 10:13 09/07/24 08:46 Fluconazole 100 Mg Tablet PO 09/08/24 10:12 100 mg QAM TEMI Administration Glucagon 1 mg 08/29/24 15:45 Glucagon For Inj 1 Mg Vial IM PRN PRN Hypoglycemia Protocol Glucose 15 gm 08/29/24 15:45 Glucose Oral Gel 15 Gm Of Glucse In 37.5 Gm Tube PO PRN PRN Hypoglycemia Protocol Heparin Sodium (Porcine) 5,000 units 08/29/24 07:45 09/06/24 21:00 Heparin Sodium 5,000 Units/Ml Vial SUB-Q 5,000 units Q8HR TEMI Administration Albumin Human 50 mls @ 999 mls/hr 08/21/24 06:28 09/06/24 21:46 Albutein IVPB 09/20/24 06:27 100 mls/hr Q10M PRN Administration HYPOTENSION Dextrose 1,000 mls @ 100 mls/hr 08/29/24 15:45 Dextrose 5% 1,000 Ml IVPB PRN PRN Hypoglycemia Protocol Norepinephrine Bitartrate 8 mg in 250 mls @ 0 mls/hr 09/05/24 01:00 09/07/24 06:00 Levophed 8 Mg/D5w 250 Ml IV CONT 0 mcg/min .Q0M TEMI 0 mls/hr Titration Protocol Insulin Aspart 4 - 8 units 08/20/24 21:05 09/07/24 08:35 Insulin Aspart (*Bkc) 100 Units/Ml SUB-Q Not Given Q4HR TEMI Protocol Insulin Glargine 45 units 09/05/24 09:00 09/07/24 08:47 Insulin Glargine (*Bkc) 100 Units/Ml SUB-Q 45 units Q12H TEMI Administration Ipratropium [place] 0.5 mg 08/29/24 12:22 09/05/24 20:20 Ipratropium Br 0.02% Inh Soln 0.5 Mg/2.5 Ml Vial INHALATION 0.5 mg Q6HRT PRN Administration Wheezing Lansoprazole 30 mg 09/06/24 21:00 09/07/24 08:46 Lansoprazole Odt 30 Mg Tab.Rap. PO 30 mg Q12HR TEMI Administration Levalbuterol HCl 1.25 mg 08/29/24 14:00 09/07/24 07:45 Levalbuterol Neb 1.25 Mg/3 Ml INHALATION 1.25 mg Q6HRT TEMI Administration Levalbuterol HCl 1.25 mg 08/29/24 12:22 08/29/24 12:20 Levalbuterol Neb 1.25 Mg/3 Ml INHALATION 1.25 mg Q6HRT PRN Administration Wheezing Midodrine 10 mg 09/03/24 11:00 09/07/24 03:30 Midodrine Hcl 10 Mg Tablet PO 10 mg Q8H TEMI Administration Multi-Ingred Cream/Lotion/Oil/Oint 1 applic 08/18/24 09:00 09/07/24 08:47 Mineral Oil/White Petrolatum Ointment EACH EYE 1 applic Q12HR TEMI Administration Neomycin/Polymyxin/Bacitracin 1 applic 09/02/24 12:25 09/07/24 00:52 Neomycin/Polymyxin/Bacitracin Ointment 15 Gm Tube TOPICAL 1 applic Q12H TEMI Administration Polyethylene Glycol 17 gm 09/05/24 09:00 09/07/24 08:46 Polyethylene Glycol 3350 17 Gm Powd.Pack PO 17 gm DAILY TEMI Administration Senna/Docusate Sodium 1 tab 09/05/24 21:00 09/06/24 21:49 Senna/Docusate Sodium Tablet PO 1 tab HS TEMI Administration Sodium Chloride 10 ml 08/19/24 22:00 09/07/24 00:52 Central Line Flush IV PUSH 10 ml Q8HR TEMI Administration Sodium Chloride 20 ml 08/19/24 18:43 Central Line Flush IV PUSH PRN PRN after blood draws Radiology Results: ITS Impressions Chest CTA 08/15/24 11:11 IMPRESSION: No pulmonary embolus. No thoracic aortic dissection. Right upper lobe infiltrate with patchy bilateral airspace disease, likely inflammatory/congestive rather than infectious. Small bilateral pleural effusions with adjacent atelectasis. Renal Ultrasound 08/19/24 14:10 IMPRESSION: No hydronephrosis or renal calculi. Findings suggesting medical renal disease. Findings within the upper pole of the right kidney consistent with patient's history, as detailed above. Chest/Abdomen/Pelvis CT 08/23/24 09:58 IMPRESSION: CHEST: 1. Bilateral pneumonia which is slightly decreased compared to previous study. Bilateral pleural effusion more on the right side. ABDOMEN/PELVIS: 1. No evidence of appendicitis, diverticulitis or intestinal obstruction. 2. Bilateral tiny kidney stones. 3. Hepatomegaly. 4. No evidence of ileus seen. ADDENDUM: 08/23/24 1042 Possibility of mass in the right kidney upper pole cannot be excluded. Abdomen X-Ray 08/23/24 16:53 IMPRESSION: 1. Dobbhoff type nasoenteric feeding tube with distal tip projecting over the gastric fundus. Venous Doppler Study 08/30/24 15:18 IMPRESSION: Negative bilateral lower extremity venous US. No deep vein thrombosis. Head CT 09/01/24 10:03 IMPRESSION: 1. No acute intracranial process. 2. Age-related changes including moderate diffuse volume loss and moderate scattered white matter attenuation consistent with chronic small vessel ischemic disease. 3. Unchanged bilateral otomastoiditis effusions. Chest X-Ray 09/07/24 06:04 Impression: Small bilateral pleural effusions with mild bibasilar pulmonary edema. Support tubes, as above. Labs Labs: Laboratory Results - last 24 hr 09/06/24 09/06/24 09/06/24 08:27 11:39 16:28 WBC RBC Hgb Hct MCV MCH MCHC RDW Plt Count MPV Immature Gran % (Auto) Neut % (Auto) Lymph % (Auto) [place] % (Auto) Eos % (Auto) Baso % (Auto) Lymph # (Auto) [place] # (Auto) Eos # (Auto) Baso # (Auto) Abs Immat Gran (auto) Absolute Neuts (auto) Absolute Nucleated RBC Nucleated RBC % Puncture Site ABG pH ABG pCO2 ABG pO2 ABG PO2/FiO2 Ratio ABG HCO3 ABG O2 Saturation ABG O2 Content ABG Base Excess A-a Gradient Oxyhemoglobin Carboxyhemoglobin Methemoglobin Reduced Hemoglobin Total Hemoglobin O2 Delivery Device O2 Liters/Min Minute Volume Vent Rate Vent Mode FiO2 Tidal Volume PEEP Peak Inspir Pressure Pressure Support Sodium Potassium Chloride Carbon Dioxide Anion Gap BUN Creatinine Estim Creat Clear Calc Estimated GFR Glucose POC Capillary Glucose 183 H 180 H 150 H Calcium Phosphorus Magnesium Total Bilirubin AST ALT Alkaline Phosphatase Total Protein Albumin 09/06/24 09/07/24 09/07/24 21:51 05:03 05:05 WBC 8.6 RBC 3.22 L Hgb 8.2 L Hct 27.0 L MCV 83.9 MCH 25.5 L MCHC 30.4 L RDW 19.0 H Plt Count 122 L MPV 10.9 H Immature Gran % (Auto) 2.6 H Neut % (Auto) 72.0 Lymph % (Auto) 14.9 L [place] % (Auto) 6.6 Eos % (Auto) 3.4 Baso % (Auto) 0.5 Lymph # (Auto) 1.28 [place] # (Auto) 0.6 Eos # (Auto) 0.3 Baso # (Auto) 0.0 Abs Immat Gran (auto) 0.22 H Absolute Neuts (auto) 6.2 Absolute Nucleated RBC 0.030 H Nucleated RBC % 0.3 H Puncture Site Right radial ABG pH 7.536 H* ABG pCO2 29.3 L ABG pO2 88.2 ABG PO2/FiO2 Ratio 2.94 ABG HCO3 24.3 ABG O2 Saturation 97.7 ABG O2 Content 12.8 L ABG Base Excess 2.0 A-a Gradient 91.3 Oxyhemoglobin 96.8 Carboxyhemoglobin 0.3 Methemoglobin 0.1 Reduced Hemoglobin 2.8 Total Hemoglobin 9.3 L O2 Delivery Device Ventilator O2 Liters/Min Not Reportable Minute Volume 6.6 Vent Rate Not Reportable Vent Mode Asv FiO2 30 Tidal Volume Not Reportable PEEP 5 Peak Inspir Pressure 30 Pressure Support 11 Sodium 133 L Potassium 3.8 Chloride 93 L Carbon Dioxide 24 Anion Gap 16 H BUN 79 H D Creatinine 2.48 H Estim Creat Clear Calc 17 Estimated GFR 19 L Glucose 176 H POC Capillary Glucose 156 H Calcium 9.3 Phosphorus 3.0 Magnesium 2.4 H Total Bilirubin 0.4 AST 33 ALT 36 H Alkaline Phosphatase 138 H Total Protein 7.0 Albumin 3.7 09/07/24 07:34 WBC RBC Hgb Hct MCV MCH MCHC RDW Plt Count MPV Immature Gran % (Auto) Neut % (Auto) Lymph % (Auto) [place] % (Auto) Eos % (Auto) Baso % (Auto) Lymph # (Auto) [place] # (Auto) Eos # (Auto) Baso # (Auto) Abs Immat Gran (auto) Absolute Neuts (auto) Absolute Nucleated RBC Nucleated RBC % Puncture Site ABG pH ABG pCO2 ABG pO2 ABG PO2/FiO2 Ratio ABG HCO3 ABG O2 Saturation ABG O2 Content ABG Base Excess A-a Gradient Oxyhemoglobin Carboxyhemoglobin Methemoglobin Reduced Hemoglobin Total Hemoglobin O2 Delivery Device O2 Liters/Min Minute Volume Vent Rate Vent Mode FiO2 Tidal Volume PEEP Peak Inspir Pressure Pressure Support Sodium Potassium Chloride Carbon Dioxide Anion Gap BUN Creatinine Estim Creat Clear Calc Estimated GFR Glucose POC Capillary Glucose 169 H Calcium Phosphorus Magnesium Total Bilirubin AST ALT Alkaline Phosphatase Total Protein Albumin Quality VTE Prophylaxis VTE prophylaxis: mechanical ordered and pharmacologic ordered
[2024-09-07] MEDS: ACETAMINOPHEN ELIXIR 325 MG/10.15 ML UDC 650 MG PO (10:52)
[2024-09-07 11:15] LABS: Glucose Point of Care 156 mg/dl (65-105)
--- NOTE | 2024-09-07 11:16 | P.PNNP_ITS ---
Subjective Date/time seen: 09/07/24 11:16 Interval history: Follow-up for acute kidney injury/acute renal failue on chronic kidney disease. Tolerated dialysis treatment yesterday although fluctuating blood flows with HD catheter noted but improved following use of alteplase; remains on mechanical ventilation via tracheostomy; off amiodarone and levophed gtts at this time; fluctuating mentation noted at this time. Objective Data Vital Signs Vital Signs: Vital Signs Temp Pulse Resp BP Pulse Ox O2 Del Method FiO2 09/07/24 11:12 100.4 F H 09/07/24 10:52 100.6 F H 09/07/24 10:34 75 99 Mechanical Ventilation 09/07/24 10:00 100.6 F H 74 35 H 117/57 L 100 09/07/24 10:00 74 09/07/24 10:00 74 117/57 L 09/07/24 08:52 73 132/66 09/07/24 08:46 74 09/07/24 08:05 73 34 H 09/07/24 08:00 73 09/07/24 08:00 30 09/07/24 08:00 100 Mechanical Ventilation 09/07/24 08:00 73 132/66 09/07/24 08:00 73 132/66 09/07/24 08:00 100.3 F H 73 36 H 132/66 100 09/07/24 07:50 72 100 Mechanical Ventilation 09/07/24 07:46 73 34 H 09/07/24 06:00 71 33 H 113/59 L 100 09/07/24 06:00 71 113/59 L 09/07/24 05:12 95 100 Mechanical Ventilation 09/07/24 05:11 70 09/07/24 04:03 73 105/57 L 09/07/24 04:00 72 105/57 L 09/07/24 04:00 98.4 F 72 35 H 105/57 L 100 09/07/24 04:00 30 09/07/24 04:00 73 09/07/24 03:59 173 H 36 H 100 Mechanical Ventilation 09/07/24 02:29 173 H 36 H 09/07/24 02:12 74 100 Mechanical Ventilation 09/07/24 02:07 173 H 36 H 09/07/24 02:00 74 108/59 L 09/07/24 02:00 73 25 H 108/59 L 100 09/07/24 02:00 74 09/07/24 00:00 98.7 F 75 32 H 94/58 L 100 09/07/24 00:00 30 09/07/24 00:00 75 09/07/24 00:00 75 36 H 100 Mechanical Ventilation 09/07/24 00:00 73 94/58 L 09/06/24 22:50 107 H 100 Mechanical Ventilation 09/06/24 22:15 133 H 96/57 L 09/06/24 22:15 117 H 96/57 L 09/06/24 22:00 130 H 32 H 96/57 L 100 09/06/24 22:00 74 09/06/24 22:00 137 H 147/100 H 09/06/24 21:49 103 H 09/06/24 21:30 109 H 129/74 09/06/24 21:15 103 H 89/66 L 09/06/24 21:10 98.6 F 93 34 H 82/52 L 99 09/06/24 20:56 104 H 77/44 L 09/06/24 20:45 106 H 101/68 09/06/24 20:36 109 H 31 H 09/06/24 20:30 108 H 109/69 09/06/24 20:22 105 H 99 Mechanical Ventilation 09/06/24 20:15 115 H 93/67 L 09/06/24 20:14 109 H 31 H 09/06/24 20:00 98.1 F 106 H 30 H 97/66 L 99 09/06/24 20:00 30 09/06/24 20:00 102 H 09/06/24 20:00 102 H 30 H 99 Mechanical Ventilation 09/06/24 20:00 105 H 97/66 L 09/06/24 19:45 101 H 105/56 L 09/06/24 19:30 108 H 116/89 09/06/24 19:15 102 H 100/55 L 09/06/24 19:00 85 110/57 L 09/06/24 18:45 87 108/52 L 09/06/24 18:43 83 115/52 L 09/06/24 18:30 78 115/52 L 09/06/24 18:16 81 118/64 09/06/24 18:15 78 118/64 09/06/24 18:00 77 34 H 116/87 99 09/06/24 18:00 77 09/06/24 18:00 76 116/87 09/06/24 17:53 77 119/58 L 09/06/24 17:45 76 118/61 Intake/Output Intake/Output: Intake & Output 09/04/24 09/05/24 09/06/24 09/07/24 23:59 23:59 23:59 23:59 Intake Total 1871.6 1989.1 1316.5 708.1 Output Total 1088 50 2075 15 Balance 783.6 1939.1 -758.5 693.1 Meds/Results Medications: Active Medications Generic Name Dose Route Start Last Admin Trade Name Freq PRN Reason Stop Dose Admin Acetaminophen 650 mg 08/18/24 21:48 09/07/24 10:52 Acetaminophen Elixir 325 Mg/10.15 Ml Udc PO 650 mg Q4H PRN Administration Mild Pain (1-3) or Fever Amiodarone HCl 200 mg 09/04/24 09:00 09/07/24 08:46 Amiodarone Hcl 200 Mg Tablet PO 200 mg Q12H TEMI Administration Aspirin 81 mg 09/02/24 08:00 09/07/24 08:47 Aspirin 81 Mg Chewable Tablet PO 81 mg DAILY@0800 TEMI Administration Dextrose 12.5 gm 08/29/24 15:45 Dextrose 50% 25 Gm/50 Ml Syringe IV PUSH PRN PRN Hypoglycemia Protocol Fluconazole 100 mg 09/05/24 10:13 09/07/24 08:46 Fluconazole 100 Mg Tablet PO 09/18/24 09:01 100 mg QAM TEMI Administration Glucagon 1 mg 08/29/24 15:45 Glucagon For Inj 1 Mg Vial IM PRN PRN Hypoglycemia Protocol Glucose 15 gm 08/29/24 15:45 Glucose Oral Gel 15 Gm Of Glucse In 37.5 Gm Tube PO PRN PRN Hypoglycemia Protocol Heparin Sodium (Porcine) 5,000 units 08/29/24 07:45 09/07/24 14:05 Heparin Sodium 5,000 Units/Ml Vial SUB-Q 5,000 units Q8HR TEMI Administration Albumin Human 50 mls @ 999 mls/hr 08/21/24 06:28 09/06/24 21:46 Albutein IVPB 09/20/24 06:27 100 mls/hr Q10M PRN Administration HYPOTENSION Dextrose 1,000 mls @ 100 mls/hr 08/29/24 15:45 Dextrose 5% 1,000 Ml IVPB PRN PRN Hypoglycemia Protocol Norepinephrine Bitartrate 8 mg in 250 mls @ 0 mls/hr 09/05/24 01:00 09/07/24 12:00 Levophed 8 Mg/D5w 250 Ml IV CONT 0 mcg/min .Q0M TEMI 0 mls/hr Titration Protocol Insulin Aspart 4 - 8 units 08/20/24 21:05 09/07/24 16:53 Insulin Aspart (*Bkc) 100 Units/Ml SUB-Q Not Given Q4HR TEMI Protocol Insulin Glargine 45 units 09/05/24 09:00 09/07/24 08:47 Insulin Glargine (*Bkc) 100 Units/Ml SUB-Q 45 units Q12H TEMI Administration Ipratropium [place] 0.5 mg 08/29/24 12:22 09/05/24 20:20 Ipratropium Br 0.02% Inh Soln 0.5 Mg/2.5 Ml Vial INHALATION 0.5 mg Q6HRT PRN Administration Wheezing Lansoprazole 30 mg 09/06/24 21:00 09/07/24 08:46 Lansoprazole Odt 30 Mg Tab.Rap.Dr PO 30 mg Q12HR TEMI Administration Levalbuterol HCl 1.25 mg 08/29/24 14:00 09/07/24 14:21 Levalbuterol Neb 1.25 Mg/3 Ml INHALATION 1.25 mg Q6HRT TEMI Administration Levalbuterol HCl 1.25 mg 08/29/24 12:22 08/29/24 12:20 Levalbuterol Neb 1.25 Mg/3 Ml INHALATION 1.25 mg Q6HRT PRN Administration Wheezing Midodrine 10 mg 09/03/24 11:00 09/07/24 10:52 Midodrine Hcl 10 Mg Tablet PO 10 mg Q8H TEMI Administration Multi-Ingred Cream/Lotion/Oil/Oint 1 applic 08/18/24 09:00 09/07/24 08:47 Mineral Oil/White Petrolatum Ointment EACH EYE 1 applic Q12HR TEMI Administration Neomycin/Polymyxin/Bacitracin 1 applic 09/02/24 12:25 09/07/24 10:52 Neomycin/Polymyxin/Bacitracin Ointment 15 Gm Tube TOPICAL 1 applic Q12H TEMI Administration Polyethylene Glycol 17 gm 09/05/24 09:00 09/07/24 08:46 Polyethylene Glycol 3350 17 Gm Powd.Pack PO 17 gm DAILY TEMI Administration Senna/Docusate Sodium 1 tab 09/05/24 21:00 09/06/24 21:49 Senna/Docusate Sodium Tablet PO 1 tab HS TEMI Administration Sodium Chloride 10 ml 08/19/24 22:00 09/07/24 14:05 Central Line Flush IV PUSH 10 ml Q8HR TEMI Administration Sodium Chloride 20 ml 08/19/24 18:43 Central Line Flush IV PUSH PRN PRN after blood draws Radiology Results: ITS Impressions Chest CTA 08/15/24 11:11 IMPRESSION: No pulmonary embolus. No thoracic aortic dissection. Right upper lobe infiltrate with patchy bilateral airspace disease, likely inflammatory/congestive rather than infectious. Small bilateral pleural effusions with adjacent atelectasis. Renal Ultrasound 08/19/24 14:10 IMPRESSION: No hydronephrosis or renal calculi. Findings suggesting medical renal disease. Findings within the upper pole of the right kidney consistent with patient's history, as detailed above. Chest/Abdomen/Pelvis CT 08/23/24 09:58 IMPRESSION: CHEST: 1. Bilateral pneumonia which is slightly decreased compared to previous study. Bilateral pleural effusion more on the right side. ABDOMEN/PELVIS: 1. No evidence of appendicitis, diverticulitis or intestinal obstruction. 2. Bilateral tiny kidney stones. 3. Hepatomegaly. 4. No evidence of ileus seen. ADDENDUM: 08/23/24 1042 Possibility of mass in the right kidney upper pole cannot be excluded. Abdomen X-Ray 08/23/24 16:53 IMPRESSION: 1. Dobbhoff type nasoenteric feeding tube with distal tip projecting over the gastric fundus. Venous Doppler Study 08/30/24 15:18 IMPRESSION: Negative bilateral lower extremity venous US. No deep vein thrombosis. Head CT 09/01/24 10:03 IMPRESSION: 1. No acute intracranial process. 2. Age-related changes including moderate diffuse volume loss and moderate scattered white matter attenuation consistent with chronic small vessel ischemic disease. 3. Unchanged bilateral otomastoiditis effusions. Chest X-Ray 09/07/24 06:04 Impression: Small bilateral pleural effusions with mild bibasilar pulmonary edema. Support tubes, as above. Labs Labs: Laboratory Tests 09/07/24 05:05 09/07/24 05:05 Calcium 9.3 Phosphorus 3.0 Magnesium 2.4 H Total Bilirubin 0.4 AST 33 ALT 36 H Alkaline Phosphatase 138 H Total Protein 7.0 Albumin 3.7
--- NOTE | 2024-09-07 11:51 | PCNFU ---
Nutrition Follow-Up Complete: Increased nutrient needs related to altered skin integrity as evidenced by noted pressure injuries Goal:Meet estimated nutritional needs. Patient is meeting current goal. We will continue current goal. Pt current nutrition is Nepro at 40 ml/hr with Gianluca BID (80 kcal, 2.5 gm protein)and Prosource BID (80 kcal, 20 gm protein). Last recorded weight is 79.7 kg, down from 88.8 kg on admit. Bowel Motility: Last reported BM 09/06 Labs Reviewed: Glu 176, BUN 79, Cr 2.48, Hct 27.1, Hgb 8.2 Meds Noted: Miralax, Senokot Skin: Deep Tissue-buttock, unstageable-left heel, lip Additional Notes: Patient is current with Trach/PEG. Tube feedings are being tolerated of Nepro at 40 ml/hr. Flush 30 ml q 4 hours. Total Nutrition: 1904 kcal/117 gm protein/640 ml water. Agree with diet orders. Monitor intake, wt, labs, skin. Follow up every Friday and Friday.
[2024-09-07] MEDS: HEPARIN SODIUM 5,000 UNITS/ML VIAL 5000 UNITS SUB-Q (14:05)
--- NOTE | 2024-09-07 14:14 | PM.DS ---
DS: Admitting Diagnosis Discharge Date 09/07/2024 Admitting Diagnosis Cough and congestion DS: Discharge Diagnosis Discharge Diagnosis (1) DVT (deep venous thrombosis): Qualifiers: Affected thrombotic vein of extremity: tibial Chronicity: acute DVT location: lower extremity Laterality: bilateral Qualified Code(s): I82.443 - Acute embolism and thrombosis of tibial vein, bilateral Code(s): I82.409 - Acute embolism and thrombosis of unspecified deep veins of unspecified lower extremity Status: Resolved Assessment and Plan: 08/20: Bilateral venous Dopplers obtained due to swelling in the legs. Ultrasound showed Bilateral [id number] deep venous thrombosis in the left and right posterior tibial veins. Patient was initially started on heparin infusion which was discontinued on 08/28 due to drop in hemoglobin 08/28/2024: Patient dropped hemoglobin to 6.9, on heparin infusion for DVTs bilaterally -have asked the bedside RN to hold heparin infusion -appreciate surgery evaluation and recommendations, will hold off IVC filter placement, repeat venous Dopplers on 08/30/2024 negative for bilateral lower extremity DVT. -continue prophylactic heparin SQ 08/30: Bilateral lower extremity venous Dopplers : Negative bilateral lower extremity venous US. No deep vein thrombosis. (2) Anemia: Qualifiers: Anemia type: due to chronic kidney disease Chronic kidney disease stage: stage 3 (moderate) Chronic kidney disease stage 3 subtype: unspecified whether 3a or 3b Qualified Code(s): N18.30 - Chronic kidney disease, stage 3 unspecified; D63.1 - Anemia in chronic kidney disease Code(s): D64.9 - Anemia, unspecified Status: Acute Assessment and Plan: 08/28: Patient dropped her hemoglobin to 6.9 this morning -patient is on heparin infusion for her bilateral lower extremity DVTs -have asked the bedside RN to hold heparin infusion -08/28: Transfused 1 unit of packed RBCs -09/05: Hemoglobin slightly trending down this morning, will continue to monitor -continue subQ heparin (prophylactic dose) (3) Acute respiratory failure with hypoxia: Code(s): J96.01 - Acute respiratory failure with hypoxia Status: Acute Assessment and Plan: Acute Respiratory failure secondary to combination of pneumonia and congestive heart failure 08/18: Intubated Repeat CT chest 08/18 MPRESSION: 1. Significant interval progression in an lobar pneumonia along with increasing small bilateral pleural effusions. Patient has elevated procalcitonin and BNP she is positive on intake output balance but her echocardiogram shows normal biventricular size and systolic function Continue Bronchodilators 08/16/2024: Blood cultures negative x2. 08/21/2024: Sputum culture growing MRSA Urine Legionella antigen, mycoplasma pneumonia antibody and urine pneumococcal antigen negative Continue Dialysis to remove fluid, discussed with Nephrology Status post vancomycin cefepime azithromycin (antibiotics ended on 08/27/2024) -Chest x-ray and ABGs reviewed -continue Mucomyst 08/29: Status post 7 days vancomycin and meropenem 08/31: PEG tube to be placed 09/03: Tracheostomy placed -09/04: Placed patient on pressure support ventilation 12/5, tolerated for 1 hour, after which she was tachypneic and was switched to ASV mode of ventilation. Will place her back on CMV in the evening or if she does not tolerate ASV. 09/05: Patient tolerated ASV all through the day yesterday and through the night. Will switch to pressure support ventilation 02/20. Tolerating well and adequate tidal volumes. Will switch to ASV if patient tires out, is tachycardic, tachypnea or hypoxic 09/06: Tolerated ASV all through the day yesterday and through the night. Have placed patient on pressure support ventilation 105. She had been tolerating it well. Will switch to ASV patient tires out 09/07: Patient tachypneic this morning, placed back on CMV as she has been on pressure support ventilation and ASV mode for the last 3 days. Will later switched to pressure support ventilation (4) Non-ST elevation myocardial infarction (NSTEMI): Code(s): I21.4 - Non-ST elevation (NSTEMI) myocardial infarction Status: Acute Assessment and Plan: History of coronary disease status post PCI in the past now presented with elevated troponin. -Cardiology following -Other heart medications on hold due to low blood pressure -Statin on hold due to elevated LFTs. -No plan for cardiac catheterization at this time. -continue aspirin 81 mg (5) Type 2 diabetes mellitus: Code(s): E11.9 - Type 2 diabetes mellitus without complications Status: Chronic Assessment and Plan: Sliding scale insulin 08/29: Blood sugars in the 400s despite being Lantus 50 units q.12 hours. Patient was started on insulin infusion on Lantus was discontinued -09/04: Will transition insulin infusion to long-acting insulin Lantus and high-dose sliding scale, -09/05: Increase Lantus (6) Renal failure: Qualifiers: Acute renal failure type: unspecified Chronic kidney disease stage: stage 3 (moderate) Chronic kidney disease stage 3 subtype: unspecified whether 3a or 3b Renal failure chronicity: acute on chronic Qualified Code(s): N17.9 - Acute kidney failure, unspecified; N18.30 - Chronic kidney disease, stage 3 unspecified Code(s): N19 - Unspecified kidney failure Status: Acute Assessment and Plan: Patient presented with creatinine of 1.5. Baseline creatinine unknown She has suprapubic catheter. As per son patient has had a renal tumor which was being monitored and plan was to start radiation therapy by her urology CT scan showed Subtle 2.5 cm mass at the upper pole of the right kidney consistent with provided history of renal tumor. Calcification is at the bilateral kidneys which appear linear and likely atherosclerotic although could not exclude nonobstructing nephrolithiasis. No hydronephrosis in either kidney. Diuretics were held and patient was given albumin bolus Creatinine continue to increase with poor urine output. After discussion with patient's family and electrical and radio mock up mechanic decision was made to initiate dialysis. 08/19 dialysis catheter was placed and patient was dialyzed 1 L fluid was removed Monitor urine output electrolytes and creatinine Dialysis per Nephrology -09/02: Tunneled dialysis placed -09/03: Tunnel dialysis catheter was nonfunctioning this morning, alteplase has been dwelled in the catheter. Later in the day temporary dialysis catheter was removed, triple-lumen central line was inserted and placed above the tunnel dialysis catheter in the IVC. Once this was done the tunnel dialysis catheter was functioning fine (7) Pneumonia: Qualifiers: Laterality: bilateral Lung location: lower lobe of lung Pneumonia type: due to methicillin-resistant Staphylococcus aureus (MRSA) Qualified Code(s): J15.212 - Pneumonia due to Methicillin resistant Staphylococcus aureus Code(s): J18.9 - Pneumonia, unspecified organism Status: Acute Assessment and Plan: See above (8) Kidney mass: Code(s): N28.89 - Other specified disorders of kidney and ureter Status: Acute Assessment and Plan: Patient's son reports history of kidney mass which is being monitored as it was too big to be removed without total nephrectomy. He states that patient was supposed to get radiation therapy in a month or so before she fractured her ankle. CT scan shows 2.5 cm renal mass on the right side and no hydronephrosis. No intervention at this time (9) Septic shock: Code(s): A41.9 - Sepsis, unspecified organism; R65.21 - Severe sepsis with septic shock Status: Acute Assessment and Plan: Patient requires Levophed mainly when she is receiving dialysis -target SBP > 90 mmHg Status post antibiotics -patient on midodrine (10) Ileus: Code(s): K56.7 - Ileus, unspecified Status: Acute Assessment and Plan: RESOLVED 08/23 Dobbhoff placed tube feeds resume 08/31: PEG tube inserted by GI Patient tolerating tube feeds -continue MiraLax and docusate sodium (11) Atrial fibrillation with RVR: Code(s): I48.91 - Unspecified atrial fibrillation Status: Acute Assessment and Plan: Patient went into AFib with RVR after hemodialysis.. She was started on amiodarone infusion. She has converted to sinus bradycardia, amiodarone was discontinued on 08/26/2024 Currently off heparin infusion due to anemia 08/30: Patient went to AFib RVR during dialysis, with rates in the 140s to 150s, started patient on amiodarone bolus and infusion, will let the infusion complete -continue prophylactic heparin SQ -patient was into AFib RVR with dialysis, also requires norepinephrine during dialysis. Patient has been started couple of times on amiodarone infusion and converts to sinus rhythm after dialysis and amiodarone drip has to be discontinued. -09/03 patient flipped back into AFib RVR and had to be restarted on amiodarone infusion -09/04: Started on amiodarone 200 mg PO Q12H and wean the amiodarone infusion to off, patient currently in sinus rhythm, rate controlled. Off amiodarone infusion (12) Encephalopathy: Code(s): G93.40 - Encephalopathy, unspecified Status: Acute Assessment and Plan: Patient was on Versed and fentanyl infusion for many days. She also has renal failure which may lead to accumulation -started on propofol infusion -off propofol patient becomes tachypneic and dyssynchronous with the ventilator leading her to desaturate -08/26/2024: CT scan of the brain No intracranial hemorrhage, mass, or acute infarct.Atrophy and chronic white matter changes. -ammonia levels within normal limits -08/29: propofol has been switched to Precedex, to allow patient to wake up -09/01: CT brain with no acute intracranial process, age-related changes, unchanged bilateral otomastoiditis effusion -patient has been off Precedex infusion since 08/31., not on any sedation medication 09/05 & 09/06: More awake this morning, eyes wide open, tracking, acknowledges examiner in the room, blinks to threat. Does not follow any commands at this time DS: Summary Hospital Course Hospital Course: 84-year-old female with history of coronary artery disease with stents, congestive heart failure, hypertension, type 2 diabetes mellitus, possible chronic kidney disease, suspected kidney cancer which has been under surveillance for approximately 4 years, urinary incontinence now with indwelling suprapubic catheter, recurrent urinary tract infections, and frequent pneumonia who presented to the emergency department via EMS from [facility] for evaluation of cough and congestion. She is not able to provide a detailed history at this time and a majority the following is obtained via a review of her electronic medical records as well as information provided by her sons and daughters in law. She has never been seen at this facility before and gets her care through [facility]. The patient lives in her own home. She has caretakers that come to the home 24 hours a day, 5 days a week and her sons take turns staying with her on the weekends. She typically ambulates unassisted but has history of falls, typically associated with infection. She recently had a right lower extremity tibia-fibula fracture treated non operatively and she is currently at [facility] for rehabilitation. Family members see or speak with the patient daily however did not hear from her yesterday which they thought was a little unusual. Today her son's received a phone call that she was coughing and short of breath and that she was being sent to the hospital. She had COVID 2.5 to 3 weeks ago but those symptoms have resolved. At the time my evaluation the patient states she has not been feeling well since yesterday with symptoms including cough, generalized malaise, fever, and chest discomfort. She has both pleuritic chest pain in the right anterior chest and some heaviness in the central chest. She feels a little short of breath as well but not significantly so. She denies headache, neck ache, visual changes, focal weakness, palpitations, orthopnea, abdominal pain, nausea, vomiting, diarrhea, back pain, lower extremity edema, and calf pain. In the ED: Vital signs on arrival include a temperature of 99.4? (later this afternoon it climbed to 11.2? F), blood pressure 150/77, pulse 97, respiratory 26, SpO2 91% on 2 L nasal cannula placed per EMS. Labs were significant for a WBC count of 9.3, hemoglobin 11.1, BUN 27, creatinine 1.50, glucose 260, lactic acid 1.4, troponin 2.840, proBNP 5770. She tested negative for influenza, RSV, and COVID. Chest CTA was negative for pulmonary embolus and thoracic aortic dissection and showed right upper lobe infiltrate with patchy bilateral airspace disease and small bilateral pleural effusions with adjacent atelectasis. She was started on azithromycin and ceftriaxone for suspected pneumonia and was also started on a heparin drip for non ST-elevation myocardial infarction. Patient had a prolonged hospitalization from 07/19 0 to 09/07. I assumed care on 09/07 (day of discharge).Please refer to discharge diagnosis for full event. 09/07/2024: Patient seen and examined the ICU remains on mechanical ventilation via tracheostomy. Patient has been tolerating ASV mode peep of 5 and 30% FiO2. She has been off all sedation since 08/28/2024 and off Precedex infusion since 08/31. As per box storage worker less awake this morning, does not open her eyes or follow simple commands. Patient did receive dialysis yesterday with 2000 mL in fluid removal. Went into AFib RVR overnight requiring amiodarone infusion, patient is sinus rhythm, rate controlled and currently off amiodarone and norepinephrine infusion. Patient has a very poor prognosis and candidate for hospice. Status at Discharge Cognitive/behavioral status at discharge: Guarded Time Spent with Patient Time attestation: Total time spent providing and/or coordinating discharge services: 45 minutes Exam Narrative: General: On mechanical ventilation via tracheostomy tube, in no acute distress HEENT: Pupils equal and reactive, sclera is clear, tracheostomy in place, upper lip puncture wound noted and covered with triple antibiotic appointment Lungs/Chest: Trachea central Coarse BS B/L, bilateral rales, no wheezing, adequate air entry Cardiac: RRR. Normal S1 S2. No murmurs Abdomen: Soft, nontender, nondistended, hypoactive bowel sounds Extremities: Edema improving, palpable pedal pulse : Butt in place Neurologic: On mechanical ventilation, not on any sedation, patient does not open eyes this morning, not awake, does not follow simple commands. Grimaces to pain but does not withdraw to pain stimulus DS: Data Data Completed and Pending Labs on day of discharge: Labs from last 24 hours 09/07/24 09/07/24 09/07/24 11:06 07:34 05:05 WBC 8.6 RBC 3.22 L Hgb 8.2 L Hct 27.0 L MCV 83.9 MCH 25.5 L MCHC 30.4 L RDW 19.0 H Plt Count 122 L MPV 10.9 H Immature Gran % (Auto) 2.6 H Neut % (Auto) 72.0 Lymph % (Auto) 14.9 L [place] % (Auto) 6.6 Eos % (Auto) 3.4 Baso % (Auto) 0.5 Lymph # (Auto) 1.28 [place] # (Auto) 0.6 Eos # (Auto) 0.3 Baso # (Auto) 0.0 Abs Immat Gran (auto) 0.22 H Absolute Neuts (auto) 6.2 Absolute Nucleated RBC 0.030 H Nucleated RBC % 0.3 H Puncture Site ABG pH ABG pCO2 ABG pO2 ABG PO2/FiO2 Ratio ABG HCO3 ABG O2 Saturation ABG O2 Content ABG Base Excess A-a Gradient Oxyhemoglobin Carboxyhemoglobin Methemoglobin Reduced Hemoglobin Total Hemoglobin O2 Delivery Device O2 Liters/Min Minute Volume Vent Rate Vent Mode FiO2 Tidal Volume PEEP Peak Inspir Pressure Pressure Support Sodium 133 L Potassium 3.8 Chloride 93 L Carbon Dioxide 24 Anion Gap 16 H BUN 79 H D Creatinine 2.48 H Estim Creat Clear Calc 17 Estimated GFR 19 L Glucose 176 H POC Capillary Glucose 156 H 169 H Calcium 9.3 Phosphorus 3.0 Magnesium 2.4 H Total Bilirubin 0.4 AST 33 ALT 36 H Alkaline Phosphatase 138 H Total Protein 7.0 Albumin 3.7 09/07/24 09/06/24 09/06/24 05:03 21:51 16:28 WBC RBC Hgb Hct MCV MCH MCHC RDW Plt Count MPV Immature Gran % (Auto) Neut % (Auto) Lymph % (Auto) [place] % (Auto) Eos % (Auto) Baso % (Auto) Lymph # (Auto) [place] # (Auto) Eos # (Auto) Baso # (Auto) Abs Immat Gran (auto) Absolute Neuts (auto) Absolute Nucleated RBC Nucleated RBC % Puncture Site Right radial ABG pH 7.536 H* ABG pCO2 29.3 L ABG pO2 88.2 ABG PO2/FiO2 Ratio 2.94 ABG HCO3 24.3 ABG O2 Saturation 97.7 ABG O2 Content 12.8 L ABG Base Excess 2.0 A-a Gradient 91.3 Oxyhemoglobin 96.8 Carboxyhemoglobin 0.3 Methemoglobin 0.1 Reduced Hemoglobin 2.8 Total Hemoglobin 9.3 L O2 Delivery Device Ventilator O2 Liters/Min Not Reportable Minute Volume 6.6 Vent Rate Not Reportable Vent Mode Asv FiO2 30 Tidal Volume Not Reportable PEEP 5 Peak Inspir Pressure 30 Pressure Support 11 Sodium Potassium Chloride Carbon Dioxide Anion Gap BUN Creatinine Estim Creat Clear Calc Estimated GFR Glucose POC Capillary Glucose 156 H 150 H Calcium Phosphorus Magnesium Total Bilirubin AST ALT Alkaline Phosphatase Total Protein Albumin Imaging Radiologist's impression: ITS Impressions Chest X-Ray 08/15/24 09:37 IMPRESSION: Mild pulmonary vascular congestion with a possible early infiltrate within the right upper lobe, as detailed above. Chest CTA 08/15/24 11:11 IMPRESSION: No pulmonary embolus. No thoracic aortic dissection. Right upper lobe infiltrate with patchy bilateral airspace disease, likely inflammatory/congestive rather than infectious. Small bilateral pleural effusions with adjacent atelectasis. Chest X-Ray 08/17/24 06:41 Impression: Worsening patchy bilateral airspace disease, sparing the upper lobes/apices. Correlate for worsening pulmonary edema or bilateral pneumonia. Minimal pleural effusion, left side. Chest X-Ray 08/17/24 10:22 Impression: Moderate to advanced probable pulmonary edema pattern. Correlate for bilateral multifocal pneumonia. Probable minimal pleural effusions. Chest X-Ray 08/17/24 23:47 IMPRESSION: Findings consistent with worsening congestive failure, as detailed above. Chest X-Ray 08/18/24 06:02 Impression: Diffuse bilateral pulmonary consolidation. Correlate for pulmonary edema, pneumonia, ARDS. Probable small right pleural effusion. Support tubes, as above. Abdomen X-Ray 08/18/24 06:03 Impression: NG tube in satisfactory position. Chest/Abdomen/Pelvis CT 08/18/24 12:28 IMPRESSION: 1. Significant interval progression in an lobar pneumonia along with increasing small bilateral pleural effusions. 2. No acute intra-abdominal/pelvic process. 3. Subtle 2.5 cm mass at the upper pole of the right kidney consistent with provided history of renal tumor. 4. Calcification is at the bilateral kidneys which appear linear and likely atherosclerotic although could not exclude nonobstructing nephrolithiasis. No hydronephrosis in either kidney. 5. Unchanged mild likely reactive mediastinal lymphadenopathy. 6. Endotracheal tube, nasogastric tube and suprapubic Butt catheter all in expected positions. Venous Doppler Study 08/18/24 14:42 IMPRESSION: 1. Bilateral walff-fim-unmo deep venous thrombosis in the left and right posterior tibial veins. Findings were discussed with the ICU nurse Carlos Herrera at 2:45 PM. Chest X-Ray 08/19/24 06:13 Impression: Probable moderate pulmonary edema pattern, improved from prior exam. Small right pleural effusion. Support tubes, as above. Chest X-Ray 08/19/24 12:22 IMPRESSION: 1. Right internal jugular central venous catheter tip at the superior cavoatrial junction. No pneumothorax. 2. Bilateral lung disease consistent with likely small to moderate-sized right and small left posterior layering pleural effusions and scattered patchy pneumonia. Renal Ultrasound 08/19/24 14:10 IMPRESSION: No hydronephrosis or renal calculi. Findings suggesting medical renal disease. Findings within the upper pole of the right kidney consistent with patient's history, as detailed above. Chest X-Ray 08/20/24 06:23 Impression: Moderate pulmonary edema pattern with small bilateral pleural effusions. Support tubes, as above. Chest X-Ray 08/21/24 06:54 IMPRESSION: 1. Continued improvement in patchy bilateral airspace opacities which could represent pneumonia or pulmonary edema. 2. Decreasing very small bilateral pleural effusions. Abdomen X-Ray 08/21/24 08:25 IMPRESSION: 1. Nonspecific paucity of bowel gas with no dilated gas-filled loops of bowel to suggest obstruction. Chest X-Ray 08/22/24 08:08 IMPRESSION: No significant change from previous examination. Chest X-Ray 08/23/24 06:15 Impression: [id number] bilateral pleural effusions with mild pulmonary edema pattern. Support tubes, as above. Chest/Abdomen/Pelvis CT 08/23/24 09:58 IMPRESSION: CHEST: 1. Bilateral pneumonia which is slightly decreased compared to previous study. Bilateral pleural effusion more on the right side. ABDOMEN/PELVIS: 1. No evidence of appendicitis, diverticulitis or intestinal obstruction. 2. Bilateral tiny kidney stones. 3. Hepatomegaly. 4. No evidence of ileus seen. ADDENDUM: 08/23/24 1042 Possibility of mass in the right kidney upper pole cannot be excluded. Abdomen X-Ray 08/23/24 16:53 IMPRESSION: 1. Dobbhoff type nasoenteric feeding tube with distal tip projecting over the gastric fundus. Chest X-Ray 08/24/24 06:27 Impression: Mild pulmonary edema with bilateral pleural effusions, right greater than left. Support tubes, as above. Chest X-Ray 08/25/24 05:24 Impression: Moderate pulmonary edema pattern with bilateral pleural effusions, right greater than left. Support tubes, as above. Chest X-Ray 08/25/24 06:16 Impression: Mild to moderate pulmonary edema pattern with bilateral pleural effusions, right greater than left. Support tubes, as above. Chest X-Ray 08/26/24 06:33 Impression: Diffuse airspace consolidation, suspicious for severe pulmonary edema versus pneumonia. Small pleural effusions. Support tubes, as above. Head CT 08/26/24 09:32 Impression: No intracranial hemorrhage, mass, or acute infarct. Atrophy and chronic white matter changes, as above. Chest X-Ray 08/27/24 08:30 IMPRESSION: 1. Interval decrease in diffuse bilateral pulmonary edema, pneumonia, small bilateral pleural effusions or some combination thereof. Chest X-Ray 08/29/24 07:39 IMPRESSION: Bilateral pneumonia. Multiple supporting lines in good position. No significant change from previous examination. Chest X-Ray 08/30/24 06:58 Impression: Probable severe pulmonary edema pattern with minimal pleural effusions. Correlate for pneumonia or ARDS. Support tubes, as above. Venous Doppler Study 08/30/24 15:18 IMPRESSION: Negative bilateral lower extremity venous US. No deep vein thrombosis. Chest X-Ray 08/31/24 06:35 Impression: Moderate pulmonary edema, probably improved in the right lung. Correlate clinically for pneumonia. Small bilateral pleural effusions. Support tubes, as above. Chest X-Ray 09/01/24 06:04 Impression: Bilateral airspace disease, left worse than right, which could reflect asymmetric pulmonary edema versus bilateral pneumonia. Correlate clinically. Small pleural effusions. Support tubes, as above. Head CT 09/01/24 10:03 IMPRESSION: 1. No acute intracranial process. 2. Age-related changes including moderate diffuse volume loss and moderate scattered white matter attenuation consistent with chronic small vessel ischemic disease. 3. Unchanged bilateral otomastoiditis effusions. Chest X-Ray 09/02/24 06:51 Impression: Moderate pulmonary edema pattern, left worse than right, with small pleural effusions. Support tubes, as above. Chest X-Ray 09/02/24 09:46 IMPRESSION: Bilateral pleural effusions. Temporary dialysis catheter is in good position. Endotracheal tube is in good radiographic position. Tunneled dialysis catheter is in position and ready for immediate use. Chest X-Ray 09/03/24 06:28 Impression: Moderate pulmonary edema pattern, as above, with small bilateral pleural effusions. Correlate clinically for pneumonia. Support tubes, as above. Chest X-Ray 09/03/24 13:11 Impression: 1: Pulmonary edema with possible small effusions. Chest X-Ray 09/04/24 07:25 IMPRESSION: 1. Basilar predominant airspace opacities throughout both lungs, right greater than left which could represent pulmonary edema, pneumonia, atelectasis or some combination thereof. 2. Small bilateral pleural effusions. Chest X-Ray 09/05/24 05:41 Impression: 1: Persistent bilateral airspace disease without significant change compared with 09/04/2024. Differential diagnosis includes edema and pneumonia. Chest X-Ray 09/06/24 06:12 Impression: Small pleural effusions and probable mild to moderate pulmonary edema pattern, improved especially in the right lung. Support tubes, as above. Chest X-Ray 09/07/24 06:04 Impression: Small bilateral pleural effusions with mild bibasilar pulmonary edema. Support tubes, as above. Discharge Plan Discharge Attending physician on discharge: Jose Abbott Consulting providers: Avni Montemayor; Mitzi Patterson; Javan Crawford; Mor Orellana Discharging Clinician: Jose Abbott Anticipated Discharge Date/Time: 09/07/24 14:21 Patient Disposition: [facility] Activity: other - see discharge instructions Diet: other - see discharge instructions Discharge Instructions: Nepro at 40 ml/hr with Gianluca BID (80 kcal, 2.5 gm protein)and Prosource BID (80 kcal, 20 gm protein) Patient Instructions: Heart Failure (DC), MRSA (Methicillin-Resistant Staphylococcus Aureus) (GEN), Sepsis (DC), Pneumonia (DC), Hemodialysis for Acute Kidney Failure (GEN) Patient Language: Swedish Stand Alone Forms: General Discharge Information Discharge Medications: New insulin aspart U-100 [Novolog U-100 Insulin aspart] 100 unit/mL Solution 4 - 8 unit subcut Q4HR Qty: 30 0RF Protocol: Insulin Corrective High-Dose Condition: glucose < 70 mg/dl Dose/Route: Follow hypoglycemia order Condition: glucose 70-200 mg/dl Dose/Route: No additional insulin Condition: glucose 201-250 mg/dl Dose/Route: 4 units sub-Q Condition: glucose 251-300 mg/dl Dose/Route: 5 units sub-Q Condition: glucose 301-350 mg/dl Dose/Route: 6 units sub-Q Condition: glucose 351-400 mg/dl Dose/Route: 8 units sub-Q Condition: glucose > 400 mg/dl Dose/Route: Call heparin (porcine) 5,000 unit/mL Solution 5,000 unit subcut Q8HR Qty: 30 0RF Triple Antibiotic 3.5mg-400 unit- 5,000 unit/gram Ointment 1 applic topical Q12H Qty: 30 0RF midodrine 10 mg Tablet 10 mg PO Q8H Qty: 30 0RF insulin glargine [Lantus U-100 Insulin] 100 unit/mL Solution 45 unit subcut Q12H Qty: 30 0RF lansoprazole 30 mg Tablet,Disintegrat, Delay Rel 30 mg PO Q12HR Qty: 30 0RF Lubrifresh PM 83-15 % Ointment 1 applic EACH EYE Q12HR Qty: 30 0RF levalbuterol HCl 1.25 mg/3 mL Solution For Nebulization 1.25 mg inhalation Q6HRT Qty: 30 0RF amiodarone [Pacerone] 200 mg Tablet 200 mg PO Q12H Qty: 30 0RF fluconazole [Diflucan] 100 mg Tablet 100 mg PO QAM Qty: 12 0RF Rx Instructions: Please complete the course on 09/18/2024 sennosides-docusate sodium [Senokot-S] 8.6-50 mg Tablet 1 tab PO HS Qty: 30 0RF Continued aspirin 81 mg capsule 81 mg PO DAILY fluticasone propionate 50 mcg/actuation spray,suspension 1 spray INTRANASAL Q12H PRN (Reason: nasal congestion) isosorbide mononitrate 30 mg tablet extended release 24 hr 30 mg PO DAILY polyethylene glycol 3350 [Miralax] 17 gram powder in packet 17 g PO DAILY PRN (Reason: constipation) guaifenesin [Mucinex] 600 mg tablet extended release 12hr 600 mg PO Q12H senna-docusate sodium Tablet 1 tablet PO DAILY PRN (Reason: constipation) Patient Comments: If no relief from Miralax bupropion HCl 300 mg tablet extended release 24 hr 300 mg PO DAILY Held Acidophilus Capsule 100 mg PO DAILY Hold Instructions: Resume on 10/12/24. Please continue if needed as per your PCP instruction AZO D-Mannose 500 mg capsule 500 mg PO BID Hold Instructions: Resume on 10/12/24. Restart as per your PCP recommendation hydralazine 50 mg tablet 50 mg PO Q12H Hold Instructions: Resume on 10/12/24. Holding due to low blood pressure krill oil 500 mg capsule 1 mg PO DAILY Hold Instructions: Resume on 10/12/24. furosemide 20 mg tablet 20 mg PO .COMPLEX Hold Instructions: Resume on 10/12/24. Holding due to low blood pressure Rx Instructions: 20 mg orally Once a day, every other day; losartan 25 mg tablet 25 mg PO DAILY Hold Instructions: Resume on 10/12/24. Holding due to low blood pressure meclizine 25 mg tablet 25 mg PO QID PRN (Reason: dizziness) Hold Instructions: Resume on 10/12/24. Please continue as per your PCP instruction metoprolol succinate 25 mg tablet extended release 24 hr 25 mg PO DAILY Hold Instructions: Resume on 10/12/24. Please discuss with Cardiology if needs to be continued rosuvastatin 5 mg tablet 5 mg PO HS Hold Instructions: Resume on 10/13/24. Discontinued acetaminophen 325 mg tablet 325 mg PO Q4H PRN (Reason: pain) amlodipine 5 mg tablet 5 mg PO DAILY Arginaid 4.5 gram-156 mg/9.2 gram powder in packet 9.2 g PO TIDWM Patient Comments: 4.5 gram-156mg/9.2 gram powder in packet multivitamin,[id number] Tablet 1 tablet PO Q12H hydrocodone-acetaminophen 5-325 mg tablet 1 tablet PO Q4-6H PRN (Reason: pain (scale score 4-6)) insulin lispro [Humalog U-100 Insulin] 100 unit/mL solution 1 sliding scale dose subcut USEASDIRECTD Rx Instructions: Blood Sugar is 150-200, give 1 unit Blood Sugar is 201-250, give 2 units Blood Sugar is 251-300, give 3 units Blood Sugar is 301-350, give 4 units Blood Sugar is 351-400, give 5 units If blood sugar is >400, call loratadine 10 mg tablet 10 mg PO DAILY montelukast 10 mg tablet 10 mg PO HS potassium chloride 10 mEq tablet extended release 10 meq PO .COMPLEX Rx Instructions: 10 mEq orally 10 mg once daily, every other day; Date of admission: 08/15/24 13:00 Primary Care Provider: PHYSICIAN NOT ON STAFF,NONSTAFF Admitting Provider: Eduard Forrester Attending physician on admission: Jalyn Lindsay Condition: Guarded Prognosis
--- NOTE | 2024-09-07 15:15 | PC.NURSE ---
Report given to Cely CRUZ at [facility] for LTAC transfer.
[2024-09-07 15:30] LABS: Glucose Point of Care 133 mg/dl (65-105)
== END 2024-09-07 19:38 | DRG 4 ==
LOC: ANHED 10:15 → ANHIMU 14:04 → ANHICU 08-19 14:55 → ANHIMU 09-08 10:38
PROVIDERS: Internal Medicine; Internal Medicine Gastroenterology; Internal Medicine Nephrology; Otolaryngology Otolaryngology/Facial Plastic Surgery; Physician Assistant; Student in an Organized Health Care Education/Training Program; Surgery; Admitting Provider Internal Medicine; Emergency Provider Student in an Organized Health Care Education/Training Program; Visit Provider General Practice
PROC: 0DH63UZ Insertion of Feeding Device into Stomach, Percutaneous Approach (ICD-10-PCS; CPT 43246; principal; 2024-08-31 12:00)
PROC: 0JH63XZ Insertion of Tunneled Vascular Access Device into Chest Subcutaneous Tissue and Fascia, Percutaneous Approach (ICD-10-PCS; CPT 36908; principal; 2024-09-02 07:30)
PROC: 0B110F4 Bypass Trachea to Cutaneous with Tracheostomy Device, Open Approach (ICD-10-PCS; principal; 2024-09-03 11:00)
DX: J18.9 Pneumonia, unspecified organism (principal); A41.9 Sepsis, unspecified organism; J96.01 Acute respiratory failure with hypoxia; R65.21 Severe sepsis with septic shock; I21.A1 Myocardial infarction type 2; I13.0 Hypertensive heart and chronic kidney disease with heart failure and stage 1 through stage 4 chronic kidney disease, or unspecified chronic kidney disease; C64.9 Malignant neoplasm of unspecified kidney, except renal pelvis; N17.9 Acute kidney failure, unspecified; I82.443 Acute embolism and thrombosis of tibial vein, bilateral; K56.7 Ileus, unspecified; G93.40 Encephalopathy, unspecified; B37.81 Candidal esophagitis; T82.41XA Breakdown (mechanical) of vascular dialysis catheter, initial encounter; J15.212 Pneumonia due to Methicillin resistant Staphylococcus aureus; I48.91 Unspecified atrial fibrillation; I50.9 Heart failure, unspecified; N18.32 Chronic kidney disease, stage 3b; E11.22 Type 2 diabetes mellitus with diabetic chronic kidney disease; I25.10 Atherosclerotic heart disease of native coronary artery without angina pectoris; E78.5 Hyperlipidemia, unspecified; D69.6 Thrombocytopenia, unspecified; D63.1 Anemia in chronic kidney disease; N28.89 Other specified disorders of kidney and ureter; I95.9 Hypotension, unspecified; R32 Unspecified urinary incontinence; H18.519 Endothelial corneal dystrophy, unspecified eye; Z20.822 Contact with and (suspected) exposure to COVID-19; Z96.651 Presence of right artificial knee joint; Z95.5 Presence of coronary angioplasty implant and graft; Z90.49 Acquired absence of other specified parts of digestive tract; Z86.16 Personal history of COVID-19
CPT/HCPCS: 31500; 36415; 36430; 36600; 43246; 43752; 70450; 71045; 71046; 71250; 71275; 74018; 74176; 76775; 77001; 80048; 80053; 80202; 81001; 82140; 82375; 82550; 82565; 82570; 82805; 82948; 83036; 83050; 83605; 83735; 83880; 84100; 84145; 84156; 84300; 84443; 84478; 84484; 84540; 85014; 85018; 85025; 85027; 85055; 85610; 85730; 85999; 86140; 86704; 86706; 86738; 86850; 86860; 86870; 86880; 86900; 86901; 86902; 86906; 86922; 86971; 86972; 87040; 87070; 87181; 87205; 87340; 87449; 87637; 87641; 87899; 92610; 93005; 93306; 93970; 94002; 94003; 94640; 94667; 94668; 96365; 96367; 96375; 99291; A9270; C1750; C1751; C1752; G0257; J0282; J0456; J0692; J0696; J1265; J1644; J1720; J1815; J1938; J1940; J2003; J2004; J2185; J2250; J2371; J2405; J2470; J2704; J2997; J3010; J3370; J7030; J7120; J7639; P9016; P9045; P9047; Q5105; Q5106; Q9967